=== PATIENT | female | born 1975 | race American Indian/Alaskan Native ===

== ENCOUNTER 2017-07-03 05:02 | Inpatient (IN) | payer OTHER ==
[2017-07-03] MEDS ORDERED: NACL 0.9% 500 ML 500 ML IV ONE ×2 (05:48→08:22)
[2017-07-03] MEDS ORDERED: NACL 0.9% 1000 ML 1,000 ML ONE (05:49)
[2017-07-03 05:53] LABS: Mean Corpuscular HGB Conc 25 % (30-34)
[2017-07-03 05:54] LABS: Alanine Aminotransferase 10 units/L (7-56); Albumin 4.5 g/dL (3.9-5); BUN/Creatinine Ratio 12; Blood Urea Nitrogen 7 mg/dL (7-17); Calcium 8.9 mg/dL (8.4-10.2); Hemolysis Index 0; Lipase 18 units/L (13-60)
[2017-07-03 06:26] LABS: Hematocrit 22.3 % (30.3-42.9); Hemoglobin 5.6 gm/dl (10.1-14.3); Mean Corpuscular Hemoglobin 15 pg (28-32); Mean Corpuscular Volume 59 fl (79-97); Red Cell Distribution Width 33.3 % (13.2-15.2)
[2017-07-03 06:44] LABS: Bilirubin,Urine NEG (Negative); Blood,Urine LG (Negative); Color,Urine Yellow (Yellow); Mucus,Urine FEW /HPF; Urobilinogen,Urine < 2.0 mg/dL (<2.0)
[2017-07-03 06:46] LABS: RBC,Urine > 182.0 /HPF (0.0-6.0)
[2017-07-03 06:50] LABS: INR 0.89 (0.87-1.13)
[2017-07-03] MEDS ORDERED: MORPHINE IV ONE (07:16)
[2017-07-03] MEDS ORDERED: ZOFRAN IV ONE (07:16)
--- NOTE | 2017-07-03 07:35 | Emergency Department Report ---
ED General Adult HPI - General Chief complaint: Nausea/Vomiting/Diarrhea Stated complaint: N/V/D Time Seen by Provider: 07/03/17 07:00 Source: patient Mode of arrival: Ambulatory Limitations: Other - History of Present Illness Initial comments: Patient presents emergency department for nausea, vomiting, diarrhea 1 day. Patient also complains of heavy vaginal bleeding for the last day or so. Patient also complains of severe abdominal pain as well. Upon further questioning the patient complains of shortness of breath with exertion as well as dizziness with standing. -: Sudden Radiation: non-radiation Severity scale (0 -10): 0 Improves with: none Worsens with: none Treatments Prior to Arrival: none - Related Data Allergies Allergy/AdvReac Type Severity Reaction Status Date / Time No Known Allergies Allergy Verified 07/03/17 05:14 ED Review of Systems ROS: Stated complaint: N/V/D Other details as noted in HPI Comment: All other systems reviewed and negative Constitutional: chills. denies: fever Eyes: denies: eye pain, eye discharge, vision change ENT: denies: ear pain, throat pain Respiratory: denies: cough, shortness of breath, wheezing Cardiovascular: denies: chest pain, palpitations Endocrine: no symptoms reported Gastrointestinal: abdominal pain. denies: nausea, diarrhea Genitourinary: other (vaginal bleeding). denies: urgency, dysuria, discharge Musculoskeletal: denies: back pain, joint swelling, arthralgia Skin: denies: rash, lesions Neurological: denies: headache, weakness, paresthesias Psychiatric: denies: anxiety, depression Hematological/Lymphatic: denies: easy bleeding, easy bruising ED Past Medical Hx - Past Medical History Previous Medical History?: Yes Hx Hypertension: Yes - Surgical History Past Surgical History?: Yes Additional Surgical History: underarm - Social History Smoking Status: Current Every Day Smoker Substance Use Type: None ED Physical Exam - General Limitations: Other General appearance: alert, in no apparent distress - Head Head exam: Present: atraumatic, normocephalic - Eye Eye exam: Present: normal appearance, PERRL, EOMI, other (Pale Palpebral conjunctiva) - ENT ENT exam: Present: other (dry mucous membranes) - Neck Neck exam: Present: normal inspection - Respiratory Respiratory exam: Present: normal lung sounds bilaterally. Absent: respiratory distress - Cardiovascular Cardiovascular Exam: Present: regular rate, normal rhythm. Absent: systolic murmur, diastolic murmur, rubs, gallop - GI/Abdominal GI/Abdominal exam: Present: soft, tenderness (diffusely tender to palpation), normal bowel sounds. Absent: distended - Rectal Rectal exam: Present: deferred - Extremities Exam Extremities exam: Present: normal inspection - Back Exam Back exam: Present: normal inspection - Neurological Exam Neurological exam: Present: alert, oriented X3 - Psychiatric Psychiatric exam: Present: normal affect, normal mood - Skin Skin exam: Present: warm, dry, intact, normal color. Absent: rash ED Course Vital Signs 07/03/17 07/03/17 07/03/17 05:06 06:00 07:00 Temperature 91.6 F L Pulse Rate 57 L 45 L 50 L Respiratory 20 20 20 Rate Blood Pressure 218/103 Blood Pressure 215/84 242/57 [Right] O2 Sat by Pulse 100 99 99 Oximetry 07/03/17 07/03/17 07/03/17 07:35 07:40 08:15 Temperature 95.5 F L Pulse Rate 58 L 65 Respiratory 18 18 19 Rate Blood Pressure Blood Pressure 217/73 208/75 [Right] O2 Sat by Pulse 100 100 Oximetry ED Medical Decision Making - Lab Data Result diagrams: 07/03/17 05:28 07/03/17 05:28 - Medical Decision Making The patient's core temperature was 91.6 thus a bear hugger was applied Packed RBCs were ordered Discussed results with the patient Critical Care Time: Yes Critical care time in (mins) excluding proc time.: 45 Critical care attestation.: If time is entered above; I have spent that time in minutes in the direct care of this critically ill patient, excluding procedure time. ED Disposition Clinical Impression: Hypothermia, Anemia requiring transfusions, Dysfunctional uterine bleeding, Fibroids Disposition: OP ADMIT IP TO THIS HOSP Is pt being admited?: Yes Does the pt Need Aspirin: No Condition: Fair Referrals: PRIMARY CARE, [Primary Care Provider] - 3-5 Days Time of Disposition: 08:40
--- NOTE | 2017-07-03 08:03 | XRay Report ---
FINAL REPORT EXAM: XR CHEST 1V AP HISTORY: Possible sepsis. TECHNIQUE: A single frontal portable radiograph of the chest was obtained. No prior studies are available for comparison. FINDINGS: The heart is borderline enlarged. The lungs appear clear bilaterally, without focal infiltrate or effusion. There is no pneumothorax. No significant osseous abnormalities are identified. IMPRESSION: Borderline cardiomegaly. No active disease seen in the chest.
--- NOTE | 2017-07-03 08:19 | Cat Scan Report ---
CT ABDOMEN PELVIS WITHOUT CONTRAST: HISTORY: abdominal pain. COMPARISON: none. TECHNIQUE: Helical CT in 1.25mm intervals without IV contrast. Sagittal and coronal reconstructions. FINDINGS: Lung bases: The visualized lung bases are normal. Heart size is normal although a small anterior pericardial effusion measures up to 1.5 cm in thickness. No obvious pericardial abnormality. Liver: A 2.8 cm hypodense lesion is identified in the posterior segment of the right hepatic lobe on image 30. This lesion is incompletely characterized on noncontrast CT, having said that, I suspect this represents a cavernous hemangioma. Triple phase liver CT with contrast or MRI liver with contrast for confirmation if needed. The remainder of the liver is within normal limits. Biliary system: Normal. Pancreas: Normal. Spleen: Normal. Kidneys/ureters/bladder: Normal. Adrenal glands: Normal. Aorta: Normal. Intestines: Unremarkable given no significant oral contrast is present in the GI system. Appendix: Not confidently identified, correlate with surgical history. Pelvic viscera: The uterus is enlarged and lobular and contains numerous noncalcified fibroids measuring up to 5 cm in diameter. The endometrium is poorly imaged but does not appear thickened on noncontrast CT. There is a surgical suture line along the right side of the uterus, correlate with surgical history. A 2.3 cm left ovarian cyst is identified. Ascites: None. Adenopathy: None. Musculoskeletal: No evidence for fracture or suspicious bony lesion. Early degenerative changes in the lower lumbar spine with L5-S1 being the most affected level. IMPRESSION: Uterine fibroid disease. 2.3 cm left ovarian cyst. Small anterior pericardial effusion of uncertain significance. 2.8 cm hypodense right hepatic lobe lesion, probable cavernous hemangioma. Surgical changes as described. Early degenerative changes in the lower lumbar spine
[2017-07-03] MEDS ORDERED: LEVAQUIN 750MG/150ML 750 MG/150 ML BAG IV ONE (08:23)
[2017-07-03 08:37] LABS: Basophils % (Manual) 0 % (0.0-1.8); RBC Morphology Normal; Total Cells Counted 100
[2017-07-03] MEDS ORDERED: DILAUDID IV ONE (08:37)
[2017-07-03 08:40] LABS: Platelet Count 125 K/mm3 (140-440)
[2017-07-03] MEDS ORDERED: VANCOMYCIN VIAL IV ONE (08:40)
--- NOTE | 2017-07-03 09:13 | History and Physical Report ---
History of Present Illness Date of examination: 07/03/17 Date of admission: 07/03/17 Chief complaint: NAUSEA WITH VOMITING AND ABDOMINAL PAIN History of present illness: Patient is a 42-year-old female with no significant past medical history significant for hypertension which she takes lisinopril 10 mg daily. She presents to the hospital complaining of nausea, vomiting vaginal bleeding is likely secondary. Which is normally very heavy. She reports the symptoms started about a day prior to admission was accompanied by diffuse abdominal pain to return and intensity of doing improving. On presentation to the hospital she was noted to have a core temperature of 91.6 with systolic blood pressure off well over 200. She denied any chest pain, but appeared generally uncomfortable. She denied any dysuria or increased frequency. She was unable to quantify the diarrhea. She reports alcohol use but this is limited to the weekend she states that this weekend she drank 2 bottles of wine. chimes in that once in a while she drinks them mixed with beer. ROS Constitutional: No fever, fatigue or weight loss. Skin: No rash. Eyes: No recent vision problems or eye pain. ENT: No congestion, ear pain, or sore throat. Endocrine: No thyroid problems. Cardiovascular: No chest pain. Respiratory: No cough, shortness of breath, congestion, or wheezing. Gastrointestinal: Reports abdominal pain, nausea, vomiting, and diarrhea. Genitourinary: No dysuria. Musculoskeletal: No joint swelling. Neurologic: No seizures. Hematologic: No unusual bruising or bleeding. Psychiatric: No psychiatric problems, hallucinations or depression. All other systems reviewed and otherwise negative. Medications and Allergies Allergies Allergy/AdvReac Type Severity Reaction Status Date / Time No Known Allergies Allergy Verified 07/03/17 05:14 Home Medications Medication Instructions Recorded Confirmed Last Taken Type Lisinopril [Zestril TAB] 10 mg PO QDAY 07/03/17 07/03/17 Unknown History Active Meds: Active Medications Hydralazine HCl (Apresoline) 10 mg IV Q4HR PRN PRN Reason: Hypertension Levofloxacin/Dextrose (Levaquin 750mg/150ml) 750 mg in 150 mls @ 100 mls/hr IV ONCE ONE Stop: 07/03/17 09:52 Last Admin: 07/03/17 08:48 Dose: 100 mls/hr Piperacillin Sod/Tazobactam Sod (Zosyn/Ns 4.5gm/100ml) 4.5 gm in 100 mls @ 200 mls/hr IV Q8HR RADHA; Protocol Nicardipine HCl 50 mg/ Sodium (Chloride) 250 mls @ 25 mls/hr IV TITR RADHA; Protocol Lisinopril (Zestril) 20 mg PO ONCE ONE Stop: 07/03/17 08:58 Sodium Chloride (Nacl 0.9% 1000 Ml) 2,180 ml 30 ml/kg (2180 ml) IV ONCE ONE Stop: 07/03/17 08:41 Vancomycin HCl (Vancomycin Pharmacy To Dose) 1 each IV PKCONSULT RADHA Vancomycin HCl (Vancomycin Vial) 1,500 mg 20 mg/kg (1500 mg) IV ONCE ONE; Protocol Stop: 07/03/17 08:41 Exam - Physical Exam Narrative exam: VITAL SIGNS: Reviewed. GENERAL: The patient appeared well nourished and normally developed in mild to moderate distress. Vital signs as documented. HEAD: No signs of head trauma. EYES: Pupils are equal. Extraocular motions intact. EARS: Hearing grossly intact. MOUTH: Oropharynx is normal. NECK: No adenopathy, no JVD. CHEST: Chest with clear breath sounds bilaterally. No wheezes, rales, or rhonchi. CARDIAC: Regular rate and rhythm. S1 and S2, without murmurs, gallops, or rubs. VASCULAR: No Edema. Peripheral pulses normal and equal in all extremities. ABDOMEN: Soft, tender diffusely no sign of distention. No rebound or guarding, and no masses palpated. Bowel Sounds normal. MUSCULOSKELETAL: Good range of motion of all major joints. Extremities without clubbing, cyanosis or edema. NEUROLOGIC EXAM: Alert and oriented x 3. No focal sensory or strength deficits. Speech normal. Follows commands. PSYCHIATRIC: Mood normal. SKIN: No rash or lesions. - Constitutional Vitals: Temp Pulse Resp BP Pulse Ox 95.5 F L 65 19 208/75 100 07/03/17 07:40 07/03/17 08:15 07/03/17 08:15 07/03/17 08:15 07/03/17 07:40 Results - Labs CBC & Chem 7: 07/03/17 16:50 07/03/17 05:28 Labs: Laboratory Last Values WBC 12.9 K/mm3 (4.5-11.0) H 07/03/17 05:28 RBC 3.80 M/mm3 (3.65-5.03) 07/03/17 05:28 Hgb 5.6 gm/dl (10.1-14.3) L* 07/03/17 05:28 Hct 22.3 % (30.3-42.9) L 07/03/17 05:28 MCV 59 fl (79-97) L 07/03/17 05:28 MCH 15 pg (28-32) L 07/03/17 05:28 MCHC 25 % (30-34) L 07/03/17 05:28 RDW 33.3 % (13.2-15.2) H 07/03/17 05:28 Plt Count 125 K/mm3 (140-440) L 07/03/17 05:28 Lymph % (Auto) Bread Molder 07/03/17 05:28 [place] % (Auto) Bread Molder 07/03/17 05:28 Eos % (Auto) Bread Molder 07/03/17 05:28 Baso % (Auto) Bread Molder 07/03/17 05:28 Lymph # Bread Molder 07/03/17 05:28 [place] # Bread Molder 07/03/17 05:28 Eos # Bread Molder 07/03/17 05:28 Baso # Bread Molder 07/03/17 05:28 Add Manual Diff Complete 07/03/17 05:28 Total Counted 100 07/03/17 05:28 Seg Neutrophils % Bread Molder 07/03/17 05:28 Seg Neuts % (Manual) 75.0 % (40.0-70.0) H 07/03/17 05:28 Band Neutrophils % 0 % 07/03/17 05:28 Lymphocytes % (Manual) 19.0 % (13.4-35.0) 07/03/17 05:28 Reactive Lymphs % (Man) 0 % 07/03/17 05:28 Monocytes % (Manual) 5.0 % (0.0-7.3) 07/03/17 05:28 Eosinophils % (Manual) 1.0 % (0.0-4.3) 07/03/17 05:28 Basophils % (Manual) 0 % (0.0-1.8) 07/03/17 05:28 Metamyelocytes % 0 % 07/03/17 05:28 Myelocytes % 0 % 07/03/17 05:28 Promyelocytes % 0 % 07/03/17 05:28 Blast Cells % 0 % 07/03/17 05:28 Nucleated RBC % Not Reportable 07/03/17 05:28 Seg Neutrophils # Bread Molder 07/03/17 05:28 Seg Neutrophils # Man 9.7 K/mm3 (1.8-7.7) H 07/03/17 05:28 Band Neutrophils # 0.0 K/mm3 07/03/17 05:28 Lymphocytes # (Manual) 2.5 K/mm3 (1.2-5.4) 07/03/17 05:28 Abs React Lymphs (Man) 0.0 K/mm3 07/03/17 05:28 Monocytes # (Manual) 0.6 K/mm3 (0.0-0.8) 07/03/17 05:28 Eosinophils # (Manual) 0.1 K/mm3 (0.0-0.4) 07/03/17 05:28 Basophils # (Manual) 0.0 K/mm3 (0.0-0.1) 07/03/17 05:28 Metamyelocytes # 0.0 K/mm3 07/03/17 05:28 Myelocytes # 0.0 K/mm3 07/03/17 05:28 Promyelocytes # 0.0 K/mm3 07/03/17 05:28 Blast Cells # 0.0 K/mm3 07/03/17 05:28 WBC Morphology Not Reportable 07/03/17 05:28 Hypersegmented Neuts Not Reportable 07/03/17 05:28 Hyposegmented Neuts Not Reportable 07/03/17 05:28 Hypogranular Neuts Not Reportable 07/03/17 05:28 Smudge Cells Not Reportable 07/03/17 05:28 Toxic Granulation Not Reportable 07/03/17 05:28 Toxic Vacuolation Not Reportable 07/03/17 05:28 Dohle Bodies Not Reportable 07/03/17 05:28 Pelger-Huet Anomaly Not Reportable 07/03/17 05:28 Irma Rods Not Reportable 07/03/17 05:28 Platelet Estimate Not Reportable 07/03/17 05:28 Clumped Platelets Not Reportable 07/03/17 05:28 Plt Clumps, EDTA Not Reportable 07/03/17 05:28 Large Platelets Not Reportable 07/03/17 05:28 Giant Platelets Not Reportable 07/03/17 05:28 Platelet Satelliting Not Reportable 07/03/17 05:28 Plt Morphology Comment Not Reportable 07/03/17 05:28 RBC Morphology Normal 07/03/17 05:28 Dimorphic RBCs Not Reportable 07/03/17 05:28 Polychromasia Not Reportable 07/03/17 05:28 Hypochromasia Not Reportable 07/03/17 05:28 Poikilocytosis Not Reportable 07/03/17 05:28 Anisocytosis Not Reportable 07/03/17 05:28 Microcytosis Not Reportable 07/03/17 05:28 Macrocytosis Not Reportable 07/03/17 05:28 Spherocytes Not Reportable 07/03/17 05:28 Pappenheimer Bodies Not Reportable 07/03/17 05:28 Sickle Cells Not Reportable 07/03/17 05:28 Target Cells Not Reportable 07/03/17 05:28 Tear Drop Cells Not Reportable 07/03/17 05:28 Ovalocytes Not Reportable 07/03/17 05:28 Helmet Cells Not Reportable 07/03/17 05:28 [place] Bodies Not Reportable 07/03/17 05:28 [place] Rings Not Reportable 07/03/17 05:28 [place] Cells Not Reportable 07/03/17 05:28 Bite Cells Not Reportable 07/03/17 05:28 Crenated Cell Not Reportable 07/03/17 05:28 Elliptocytes Not Reportable 07/03/17 05:28 Acanthocytes (Spur) Not Reportable 07/03/17 05:28 Rouleaux Not Reportable 07/03/17 05:28 Hemoglobin C Crystals Not Reportable 07/03/17 05:28 Schistocytes Not Reportable 07/03/17 05:28 Malaria parasites Not Reportable 07/03/17 05:28 Roberto Bodies Not Reportable 07/03/17 05:28 Hem Pathologist Commnt No 07/03/17 05:28 PT 12.5 Sec. (12.2-14.9) 07/03/17 06:19 INR 0.89 (0.87-1.13) 07/03/17 06:19 VBG pH 7.372 (7.320-7.420) 07/03/17 06:19 Sodium 141 mmol/L (137-145) 07/03/17 05:28 Potassium 3.0 mmol/L (3.6-5.0) L 07/03/17 05:28 Chloride 101.3 mmol/L (98-107) 07/03/17 05:28 Carbon Dioxide 22 mmol/L (22-30) 07/03/17 05:28 Anion Gap 21 mmol/L 07/03/17 05:28 BUN 7 mg/dL (7-17) 07/03/17 05:28 Creatinine 0.6 mg/dL (0.7-1.2) L 07/03/17 05:28 Estimated GFR > 60 ml/min 07/03/17 05:28 BUN/Creatinine Ratio 12 % 07/03/17 05:28 Glucose 220 mg/dL (65-100) H 07/03/17 05:28 POC Glucose 188 (70-105) H 07/03/17 05:11 Lactic Acid 2.50 mmol/L (0.7-2.0) H* 07/03/17 06:19 Calcium 8.9 mg/dL (8.4-10.2) 07/03/17 05:28 Total Bilirubin 0.40 mg/dL (0.1-1.2) 07/03/17 05:28 AST 17 units/L (5-40) 07/03/17 05:28 ALT 10 units/L (7-56) 07/03/17 05:28 Alkaline Phosphatase 74 units/L (35-129) 07/03/17 05:28 Total Protein 7.5 g/dL (6.3-8.2) 07/03/17 05:28 Albumin 4.5 g/dL (3.9-5) 07/03/17 05:28 Albumin/Globulin Ratio 1.5 % 07/03/17 05:28 Lipase 18 units/L (13-60) 07/03/17 05:28 HCG, Qual Negative (Negative) 07/03/17 06:19 Urine Color Yellow (Yellow) 07/03/17 Unknown Urine Turbidity Hazy (Clear) 07/03/17 Unknown Urine pH 7.0 (5.0-7.0) 07/03/17 Unknown Ur Specific [place] 1.010 (1.003-1.030) 07/03/17 Unknown Urine Protein 100 mg/dl mg/dL (Negative) 07/03/17 Unknown Urine Glucose (UA) >=500 mg/dL (Negative) 07/03/17 Unknown Urine Ketones 20 mg/dL (Negative) 07/03/17 Unknown Urine Blood Lg (Negative) 07/03/17 Unknown Urine Nitrite Neg (Negative) 07/03/17 Unknown Urine Bilirubin Neg (Negative) 07/03/17 Unknown Urine Urobilinogen < 2.0 mg/dL (<2.0) 07/03/17 Unknown Ur Leukocyte Esterase Mod (Negative) 07/03/17 Unknown Urine WBC (Auto) 18.0 /HPF (0.0-6.0) H 07/03/17 Unknown Urine RBC (Auto) > 182.0 /HPF (0.0-6.0) 07/03/17 Unknown U Epithel Cells (Auto) 1.0 /HPF (0-13.0) 07/03/17 Unknown Urine Mucus Few /HPF 07/03/17 Unknown Blood Type O POSITIVE 07/03/17 06:35 Antibody Screen Negative 07/03/17 06:35 Crossmatch See Detail 07/03/17 06:35 - Imaging and Cardiology CT scan - abdomen: image reviewed (no acute pathology noted.) Assessment and Plan Assessment and plan: 42 year old with hx of HTN and weekend binge drinking presenting with Nausea, Vomiting with abdominal pain, noted to have a systolic BP of 240 with hgb of 5.6 and core temp of 91.6 Patient is a 42-year-old female with no significant past medical history significant for hypertension which she takes lisinopril 10 mg daily. She presents to the hospital complaining of nausea, vomiting vaginal bleeding is likely secondary. Which is normally very heavy. She reports the symptoms started about a day prior to admission was accompanied by diffuse abdominal pain to return and intensity of doing improving. On presentation to the hospital she was noted to have a core temperature of 91.6 with systolic blood pressure off well over 200. She denied any chest pain, but appeared generally uncomfortable. She denied any dysuria or increased frequency. She was unable to quantify the diarrhea. She reports alcohol use but this is limited to the weekend she states that this weekend she drank 2 bottles of wine. chimes in that once in a while she drinks them mixed with beer. 1. Severe Sepsis w/Hypothermia 2. Peritoneal irritation r/o aortic Dissection 3. Severe Anemia 4. Symptomatic Anemia 5. Hypertensive urgency 6. Menorraghia 7. Etoh use disorder Plan Admit to ICU INITIALLY PLANNED BUT WILL DOWNGRADE TO TELE ONCE ESTEFANY DRIP OFF Active Rewarming Start Sepsis protocol, ABX, FLUIDS, CULTURES. Excessive fluids may be prohibitive considering Elevated BP and Blood product need CIWA protocol Consult guyline operator-Discussed with physician Counselling for ETOH when more stable Cardene drip for BP contro Pain control Pelvic ultrasound CT CHEST AND ABD with contrast DVT/GI prophy Discussed in detail with patient and spouse with patients permission The high probability of a clinically significant, sudden or life threatening deterioration of the [GI, , HEMATOLOGY] system(s) required my full and direct attention, intervention and personal management. The aggregate critical care time was [45] minutes. This time is in addition to time spent performing reported procedures but includes the following: [X] Data Review and interpretation [X] Patient assessment and monitoring of vital signs [X] Documentation [X] Medication orders and management Advance Directives: Yes Plan of care discussed with patient/family: Yes - Patient Problems (1) Severe sepsis Current Visit: Yes Status: Acute (2) Alcohol abuse Current Visit: Yes Status: Acute (3) Hypertensive urgency, malignant Current Visit: Yes Status: Acute (4) Anemia requiring transfusions Current Visit: Yes Status: Acute (5) Dysfunctional uterine bleeding Current Visit: Yes Status: Acute (6) Fibroids Current Visit: Yes Status: Acute (7) Hypothermia Current Visit: Yes Status: Acute
[2017-07-03 09:57] LABS: Hematocrit 22.4 % (30.3-42.9); Hemoglobin 5.7 gm/dl (10.1-14.3)
[2017-07-03] MEDS: CARDENE 50 MG in NACL 0.9% 250ML 230 ML IV SCH ×2 (09:59→21:11)
[2017-07-03] MEDS ORDERED: VANCOMYCIN PHARMACY TO DOSE IV SCH (10:00)
[2017-07-03] MEDS ORDERED: NACL 0.9% 1000 ML IV ONE (10:00)
[2017-07-03] MEDS ORDERED: ATIVAN IV PRN ×2 (10:00)
[2017-07-03] MEDS ORDERED: VANCOMYCIN 1,500 MG in NACL 0.9% 500 ML 500 ML IV ONE (10:00)
[2017-07-03] MEDS ORDERED: ZESTRIL PO ONE (10:00)
[2017-07-03 10:05] LABS: Partial Thromboplastin Time 24.6 Sec. (24.2-36.6)
[2017-07-03 10:11] LABS: Iron 12 ug/dL (37-170)
[2017-07-03] MEDS ORDERED: NORMODYNE IV ONE ×4 (10:20→12:46)
[2017-07-03 10:48] LABS: Total Iron Binding Capacity 534 mcg/dL (250-450)
--- NOTE | 2017-07-03 10:57 | XRay Report ---
AP CHEST: HISTORY: Tachycardia AP view of the chest demonstrates a normal mediastinal and cardiac contour with clear lungs and normal bony and soft tissue structures. IMPRESSION: No acute process noted.
[2017-07-03] MEDS: DILAUDID IV PRN ×3 (13:03→21:44)
[2017-07-03] MEDS: ZOSYN/NS 4.5GM/100ML 4.5 GM/100 ML VIAL IV SCH ×2 (13:35→16:04)
[2017-07-03] MEDS: APRESOLINE IV PRN (14:32)
[2017-07-03] MEDS: NORVASC PO SCH (15:03)
[2017-07-03] MEDS: DIOVAN PO SCH (16:14)
--- NOTE | 2017-07-03 17:11 | Consultation ---
History of Present Illness Consult date: 07/03/17 Requesting physician: JENIFER MANDUJANO History of present illness: 42 y/o female with history of hypertension, admitted on due to 24 h history of acute onset of abdominal pain, nausea, vomiting and diarrhea to numerous to count, she is also c/o vaginal bleeding which is her normal period. She reports heavy periods. She has been eating ice. Symptoms started after she ate out with her partner. They had different meals. She was the only one becoming sick. Denies dysuria, cough, cold symptoms. She reports alcohol use but this is limited to the weekend she states that this weekend she drank 2 bottles of wine. In the ED, temp 91.6, HR 57, R 20, O2 sat 100%, BP 218/103. WBC 12.9. Hg 5.6.Plat 125. Creat 0.6. Lactate 2.5. UA mod LE, wbc 18. CT showed uterine fibroids, 2.3 c left ovarian cyst, 2.8 cm hypodense lesion in the right hepatic lobe c/w hemangiona?, small pericardial effusion. Pelvic US showed multiple fibroids. I have been consulted for critical care management and to facilitate her admission to the ICU. She has lactic acidosis, severe anemia, malignant hypertension Review of systems Constitutional: No fever, fatigue or weight loss. Skin: No rash. Eyes: No recent vision problems or eye pain. ENT: No congestion, ear pain, or sore throat. Endocrine: No thyroid problems. Cardiovascular: No chest pain. Respiratory: No cough, shortness of breath, congestion, or wheezing. Gastrointestinal: Reports abdominal pain, nausea, vomiting, and diarrhea. Genitourinary: No dysuria. Musculoskeletal: No joint swelling. Neurologic: No seizures. Hematologic: No unusual bruising or bleeding. Psychiatric: No psychiatric problems, hallucinations or depression. All other systems reviewed and otherwise negative. Medications and Allergies Allergies Allergy/AdvReac Type Severity Reaction Status Date / Time No Known Allergies Allergy Verified 07/03/17 05:14 Home Medications Medication Instructions Recorded Confirmed Last Taken Type Lisinopril [Zestril TAB] 10 mg PO QDAY 07/03/17 07/03/17 Unknown History Active Meds: Active Medications Amlodipine Besylate (Norvasc) 10 mg PO QDAY RADHA Last Admin: 07/03/17 15:03 Dose: 10 mg Hydralazine HCl (Apresoline) 10 mg IV Q4H PRN PRN Reason: Hypertension Last Admin: 07/03/17 14:32 Dose: 10 mg Hydromorphone HCl (Dilaudid) 1 mg IV Q4H PRN PRN Reason: Pain , Severe (7-10) Last Admin: 07/03/17 13:03 Dose: 1 mg Nicardipine HCl 50 mg/ Sodium (Chloride) 250 mls @ 25 mls/hr IV TITR RADHA; Protocol Last Titration: 07/03/17 12:30 Dose: 5 mg/hr, 25 mls/hr Vancomycin HCl 1,250 mg/ (Sodium Chloride) 262.5 mls @ 166.667 mls/hr IV Q12HR RADHA Piperacillin Sod/Tazobactam Sod (Zosyn/Ns 4.5gm/100ml) 4.5 gm in 100 mls @ 200 mls/hr IV Q8HR RADHA; Protocol Lorazepam (Ativan) 2 mg IV Q1HR PRN PRN Reason: [facility] 8-15 Lorazepam (Ativan) 4 mg IV Q1HR PRN PRN Reason: CIWA-Ar 16-25 Valsartan (Diovan) 160 mg PO BID RADHA Last Admin: 07/03/17 16:14 Dose: 160 mg Vancomycin HCl (Vancomycin Pharmacy To Dose) 1 each IV PKCONSULT RADHA Physical Examination Vital signs: Vital Signs Pulse Resp BP Pulse Ox 57 L 20 218/103 100 07/03/17 05:06 07/03/17 05:06 07/03/17 05:06 07/03/17 05:06 VITAL SIGNS: Reviewed. GENERAL: The patient appeared well nourished and normally developed in mild to moderate distress. Vital signs as documented. HEAD: No signs of head trauma. EYES: Pupils are equal. Extraocular motions intact. EARS: Hearing grossly intact. MOUTH: Oropharynx is normal. NECK: No adenopathy, no JVD. CHEST: Chest with clear breath sounds bilaterally. No wheezes, rales, or rhonchi. CARDIAC: Regular rate and rhythm. S1 and S2, without murmurs, gallops, or rubs. VASCULAR: No Edema. Peripheral pulses normal and equal in all extremities. ABDOMEN: Soft, tender diffusely no sign of distention. No rebound or guarding, and no masses palpated. Bowel Sounds hyperactive MUSCULOSKELETAL: Good range of motion of all major joints. Extremities without clubbing, cyanosis or edema. NEUROLOGIC EXAM: Alert and oriented x 3. No focal sensory or strength deficits. Speech normal. Follows commands. PSYCHIATRIC: Mood normal. SKIN: No rash or lesions. Results - Laboratory Findings CBC and BMP: 07/04/17 04:39 07/04/17 03:57 PT/INR, D-dimer PT 12.5 Sec. (12.2-14.9) 07/03/17 06:19 INR 0.89 (0.87-1.13) 07/03/17 06:19 Abnormal lab findings: Abnormal Labs 07/03/17 07/03/17 07/03/17 05:11 05:28 05:28 WBC 12.9 H Hgb 5.6 L* Hct 22.3 L MCV 59 L MCH 15 L MCHC 25 L RDW 33.3 H Plt Count 125 L Seg Neuts % (Manual) 75.0 H Seg Neutrophils # Man 9.7 H Potassium 3.0 L Creatinine 0.6 L Glucose 220 H POC Glucose 188 H Lactic Acid Iron TIBC Urine WBC (Auto) Crossmatch 07/03/17 07/03/17 07/03/17 06:19 06:35 08:42 WBC Hgb Hct MCV MCH MCHC RDW Plt Count Seg Neuts % (Manual) Seg Neutrophils # Man Potassium Creatinine Glucose POC Glucose Lactic Acid 2.50 H* 2.20 H* Iron TIBC Urine WBC (Auto) Crossmatch See Detail 07/03/17 07/03/17 07/03/17 09:31 09:31 11:50 WBC Hgb 5.7 L* Hct 22.4 L MCV MCH MCHC RDW Plt Count Seg Neuts % (Manual) Seg Neutrophils # Man Potassium Creatinine Glucose POC Glucose Lactic Acid 2.80 H* Iron 12 L TIBC 534 H Urine WBC (Auto) Crossmatch 07/03/17 Unknown WBC Hgb Hct MCV MCH MCHC RDW Plt Count Seg Neuts % (Manual) Seg Neutrophils # Man Potassium Creatinine Glucose POC Glucose Lactic Acid Iron TIBC Urine WBC (Auto) 18.0 H Crossmatch Assessment and Plan 1. Severe Sepsis without shock 2. Peritoneal irritation r/o aortic Dissection 3. Severe Anemia 4. Symptomatic Anemia 5. Hypertensive urgency 6. Menorraghia 7. Alcohol use disorder use disorder Plan At the time of evaluation, patient was warm, and her blood pressure had been adequately controlleed, not requiring nicardipine infusion. Will admit to a monitored unit and continue o follow closely Active Rewarming Continue with Sepsis protocol, ABX, FLUIDS, CULTURES. CIWA protocol Counselling for ETOH when more stable Pain control Pelvic ultrasound CT abdomen with contrast, monitor closely for contrast induced nephropathy DVT prophylaxis Supportive blood transfusion The high probability of a clinically significant, sudden or life threatening deterioration of the [GI, , HEMATOLOGY] system(s) required my full and direct attention, intervention and personal management. The aggregate critical care time was [35] minutes. This time is in addition to time spent performing reported procedures but includes the following: [X] Data Review and interpretation [X] Patient assessment and monitoring of vital signs [X] Documentation [X] Medication orders and management
[2017-07-03 17:26] LABS: Hematocrit 31.5 % (30.3-42.9); Hemoglobin 9.7 gm/dl (10.1-14.3)
[2017-07-03] MEDS ORDERED: K-DUR PO ONE (18:30)
--- NOTE | 2017-07-03 20:10 | Ultrasound Report ---
FINAL REPORT PROCEDURE: US PELVIC COMPLETE TECHNIQUE: Real-time transabdominal sonography in multiple planes of pelvis was performed with image documentation. This examination was performed without Doppler. Vascular abnormalities, including ovarian torsion, will not be detectable without Doppler evaluation. CPT 72567 HISTORY: fibroids, abdominal pain COMPARISON: No prior studies are available for comparison. FINDINGS: UTERUS Size: 13.0 x 7.5 x 9.8 cm. Endometrial thickness: Not diagnostically visualized . Orientation: anteverted. Cervix: Normal. Fibroids/masses: There are several uterine fibroids present. The largest is in a submucosal position in the body, and measures up to 4.9 centimeters. RIGHT Ovary: 1.9 x 2.0 x 1.7 cm. Appearance: Normal. LEFT Ovary: 3.5 x 2.4 x 2.9 cm. Appearance: 2.2 centimeter simple cyst is present. Pelvic fluid: None. Other: None. IMPRESSION: Multiple uterine fibroids are identified. The endometrium is not diagnostically visualized. 2.2 centimeter simple left ovarian cyst
--- NOTE | 2017-07-03 21:59 | Consultation ---
History of Present Illness - Reason for Consult Consult date: 07/03/17 severe sepsis Requesting physician: JENIFER MANDUJANO - History of Present Illness 42 y/o female with history of hypertension, admitted on due to 24 h history of acute onset of abdominal pain, nausea, vomiting and diarrhea to numerous to count, she is also c/o vaginal bleeding which is her normal period. She reports heavy periods. She has been eating ice. Symptoms started after she ate out with her partner. They had different meals. She was the only one becoming sick. Denies dysuria, cough, cold symptoms. She reports alcohol use but this is limited to the weekend she states that this weekend she drank 2 bottles of wine. In the ED, temp 91.6, HR 57, R 20, O2 sat 100%, BP 218/103. WBC 12.9. Hg 5.6.Plat 125. Creat 0.6. Lactate 2.5. UA mod LE, wbc 18. CT showed uterine fibroids, 2.3 c left ovarian cyst, 2.8 cm hypodense lesion in the right hepatic lobe c/w hemangiona?, small pericardial effusion. Pelvic US showed multile fibroids. Micro: Blood cx 07/03 ngtd Abx: Levaquin Zosyn Vanco Past History Past Medical History: No medical history Past Surgical History: No surgical history Social history: lives with family, alcohol abuse Medications and Allergies Allergies Allergy/AdvReac Type Severity Reaction Status Date / Time No Known Allergies Allergy Verified 07/03/17 05:14 Home Medications Medication Instructions Recorded Confirmed Last Taken Type Lisinopril [Zestril TAB] 10 mg PO QDAY 07/03/17 07/03/17 Unknown History Active Meds: Active Medications Amlodipine Besylate (Norvasc) 10 mg PO QDAY [facility] Last Admin: 07/03/17 15:03 Dose: 10 mg Hydralazine HCl (Apresoline) 10 mg IV Q4H PRN PRN Reason: Hypertension Last Admin: 07/03/17 14:32 Dose: 10 mg Hydromorphone HCl (Dilaudid) 1 mg IV Q4H PRN PRN Reason: Pain , Severe (7-10) Last Admin: 07/03/17 21:44 Dose: 1 mg Nicardipine HCl 50 mg/ Sodium (Chloride) 250 mls @ 25 mls/hr IV TITR RADHA; Protocol Last Admin: 07/03/17 21:11 Dose: 2.5 mg/hr, 12.5 mls/hr Vancomycin HCl 1,250 mg/ (Sodium Chloride) 262.5 mls @ 166.667 mls/hr IV Q12HR RADHA Piperacillin Sod/Tazobactam Sod (Zosyn/Ns 4.5gm/100ml) 4.5 gm in 100 mls @ 200 mls/hr IV Q8HR RADHA; Protocol Lorazepam (Ativan) 2 mg IV Q1HR PRN PRN Reason: CIWA-Ar 8-15 Lorazepam (Ativan) 4 mg IV Q1HR PRN PRN Reason: CIWA-Ar 16-25 Valsartan (Diovan) 160 mg PO BID RADHA Last Admin: 07/03/17 16:14 Dose: 160 mg Vancomycin HCl (Vancomycin Pharmacy To Dose) 1 each IV PKCONSULT RADHA Review of Systems All systems: negative (as per HPI rest neg) Physical Examination - Physical Exam Narrative exam: Alert anxious in mild resp distress JULIANN, clear OP Neck no LN Lungs CTA sanchez CV tachy Abd soft TTP diffusely Ext no edema - Constitutional Vitals: Vital Signs Temp Pulse Resp BP Pulse Ox 98.7 F 108 H 20 156/87 100 07/03/17 19:50 07/03/17 21:15 07/03/17 21:44 07/03/17 21:15 07/03/17 21:15 Temperature -Last 24 Hours Temperature 98.7 F Temperature 99.1 F Temperature 98.5 F Temperature 98.3 F Temperature 98.4 F Temperature 98.2 F Temperature 98 F Temperature 98.8 F Temperature 98.3 F Temperature 97.7 F Temperature 97.6 F Temperature 97.5 F Temperature 95.5 F Temperature 91.6 F Results - Labs CBC & Chem 7: 07/03/17 16:50 07/03/17 05:28 Labs: Abnormal lab results 07/03/17 07/03/17 07/03/17 Range/Units 05:11 05:28 05:28 WBC 12.9 H (4.5-11.0) K/mm3 Hgb 5.6 L* (10.1-14.3) gm/dl Hct 22.3 L (30.3-42.9) % MCV 59 L (79-97) fl MCH 15 L (28-32) pg MCHC 25 L (30-34) % RDW 33.3 H (13.2-15.2) % Plt Count 125 L (140-440) K/mm3 Seg Neuts % (Manual) 75.0 H (40.0-70.0) % Seg Neutrophils # Man 9.7 H (1.8-7.7) K/mm3 Potassium 3.0 L (3.6-5.0) mmol/L Creatinine 0.6 L (0.7-1.2) mg/dL Glucose 220 H (65-100) mg/dL POC Glucose 188 H (70-105) Lactic Acid (0.7-2.0) mmol/L Iron (37-170) ug/dL TIBC (250-450) mcg/dL Urine WBC (Auto) (0.0-6.0) /HPF Crossmatch 07/03/17 07/03/17 07/03/17 Range/Units 06:19 06:35 08:42 WBC (4.5-11.0) K/mm3 Hgb (10.1-14.3) gm/dl Hct (30.3-42.9) % MCV (79-97) fl MCH (28-32) pg MCHC (30-34) % RDW (13.2-15.2) % Plt Count (140-440) K/mm3 Seg Neuts % (Manual) (40.0-70.0) % Seg Neutrophils # Man (1.8-7.7) K/mm3 Potassium (3.6-5.0) mmol/L Creatinine (0.7-1.2) mg/dL Glucose (65-100) mg/dL POC Glucose (70-105) Lactic Acid 2.50 H* 2.20 H* (0.7-2.0) mmol/L Iron (37-170) ug/dL TIBC (250-450) mcg/dL Urine WBC (Auto) (0.0-6.0) /HPF Crossmatch See Detail 07/03/17 07/03/17 07/03/17 Range/Units 09:31 09:31 11:50 WBC (4.5-11.0) K/mm3 Hgb 5.7 L* (10.1-14.3) gm/dl Hct 22.4 L (30.3-42.9) % MCV (79-97) fl MCH (28-32) pg MCHC (30-34) % RDW (13.2-15.2) % Plt Count (140-440) K/mm3 Seg Neuts % (Manual) (40.0-70.0) % Seg Neutrophils # Man (1.8-7.7) K/mm3 Potassium (3.6-5.0) mmol/L Creatinine (0.7-1.2) mg/dL Glucose (65-100) mg/dL POC Glucose (70-105) Lactic Acid 2.80 H* (0.7-2.0) mmol/L Iron 12 L (37-170) ug/dL TIBC 534 H (250-450) mcg/dL Urine WBC (Auto) (0.0-6.0) /HPF Crossmatch 07/03/17 07/03/17 07/03/17 Range/Units 16:50 16:50 Unknown WBC (4.5-11.0) K/mm3 Hgb 9.7 L D (10.1-14.3) gm/dl Hct (30.3-42.9) % MCV (79-97) fl MCH (28-32) pg MCHC (30-34) % RDW (13.2-15.2) % Plt Count (140-440) K/mm3 Seg Neuts % (Manual) (40.0-70.0) % Seg Neutrophils # Man (1.8-7.7) K/mm3 Potassium (3.6-5.0) mmol/L Creatinine (0.7-1.2) mg/dL Glucose (65-100) mg/dL POC Glucose (70-105) Lactic Acid 2.30 H* (0.7-2.0) mmol/L Iron (37-170) ug/dL TIBC (250-450) mcg/dL Urine WBC (Auto) 18.0 H (0.0-6.0) /HPF Crossmatch Assessment and Plan Assessment: 1) Severe sepsis: present on admission, with hypothermia and leukocytosis; etiology: multifactorial - severe anemia +/- acute enterocolitis. 2) Severe anemia: prob from fibroids 3) Nausea, vomiting, abdominal pain and diarrhea: Likely acute enterocolitis, pt became sick after restaurant meal. CT - bowels were normal 4) Hypertensive urgency 5) Vaginal bleeding: from fibroids. CT showed uterine fibroids, 2.3 c left ovarian cyst. 6) Right liver lesion ? hemangioma 7) Small pericardial effusion Recommendations: -f/u blood cx -send stools for cultures, leukocytes and C diff -stop zosyn -continue levaquin -add flagyl -continue vancomycin for now- will stop soon -repeat CT abd with contrast - to evl bowel and aorta -check TTE Thanks for consultation Rachel Bryant MD
[2017-07-03] MEDS ORDERED: ZOSYN/NS 4.5GM/100ML 4.5 GM/100 ML VIAL IV SCH (22:00)
[2017-07-03] MEDS: VANCOMYCIN 1,250 MG in NACL 0.9% 250ML 250 ML IV SCH (23:02)
[2017-07-04] MEDS: FLAGYL 500 MG/100 ML 500 MG/100 ML BAG IV SCH ×4 (00:48→21:22)
[2017-07-04] MEDS: DILAUDID IV PRN ×5 (02:42→23:47)
--- NOTE | 2017-07-04 03:02 | Cat Scan Report ---
FINAL REPORT EXAM: CT ABDOMEN PELVIS W CON HISTORY: severe abd pain diarrhea eval ?colitis TECHNIQUE: Routine axial imaging was obtained of the abdomen and pelvis following the intravenous injection of 100 cc of Omnipaque 350. Delayed imaging was obtained through the kidneys ureters and bladder. Sagittal and coronal reconstructions were reviewed. Comparison is made to the previous noncontrast study of 07/03/2017. FINDINGS: Images through lung bases reveal very mild atelectatic changes versus scarring in the lower lobes. Pleural fluid is not seen. The liver is normal size and reveals a peripherally enhancing lesion in the right hepatic lobe measuring 2.7 cm in diameter compatible with a hemangioma. There are no additional padded lesions. The gallbladder, biliary tree, pancreas, spleen, and adrenal glands appear normal. The kidneys show no evidence of stones or hydronephrosis. The vasculatures enhance normally. The bowel loops reveal reveal fluid-filled loops of colon and small bowel without significant distention. There is no evidence of mucosal edematous change to suggest colitis or enteritis. The appendix is not enlarged. There is no evidence of free fluid or adenopathy. In the pelvis the uterus is markedly enlarged revealing least 1 enhancing myometrial lesion measuring 2.7 cm in diameter compatible with fibroid there is a 2.2 cm cyst behind the uterus left midline possibly representing a left ovarian cyst. The bladder appears normal. The skeletal structures appear well maintained. IMPRESSION: Multiple nondistended fluid-filled loops of colon and small bowel as described. The findings may represent a nonobstructive generalized ileus. No evidence of edematous mucosal changes in the colon or small bowel to suggest a colitis or enteritis. 2.7 cm hemangioma in the right hepatic lobe. Diffuse enlargement of the uterus with a least 1 fibroid. 2.2 cm cyst behind the uterus possibly representing a left ovarian cyst
[2017-07-04 04:06] LABS: Mean Corpuscular HGB Conc 30 % (30-34); Red Blood Count 4.71 M/mm3 (3.65-5.03)
[2017-07-04 04:09] LABS: Hematocrit 30.8 % (30.3-42.9); Hemoglobin 9.1 gm/dl (10.1-14.3); Mean Corpuscular Hemoglobin 19 pg (28-32); Mean Corpuscular Volume 65 fl (79-97); Platelet Count 120 K/mm3 (140-440); Red Cell Distribution Width 37.3 % (13.2-15.2)
[2017-07-04 04:23] LABS: BUN/Creatinine Ratio 12; Blood Urea Nitrogen 6 mg/dL (7-17); Calcium 7.9 mg/dL (8.4-10.2); Hemolysis Index 0
[2017-07-04 05:11] LABS: Mean Corpuscular HGB Conc 29 % (30-34); Red Blood Count 4.78 M/mm3 (3.65-5.03)
[2017-07-04 05:21] LABS: Hematocrit 31.7 % (30.3-42.9); Hemoglobin 9.3 gm/dl (10.1-14.3); Mean Corpuscular Hemoglobin 20 pg (28-32); Mean Corpuscular Volume 66 fl (79-97); Red Cell Distribution Width 37.3 % (13.2-15.2)
[2017-07-04 05:22] LABS: Platelet Count 145 K/mm3 (140-440)
[2017-07-04 06:22] LABS: Band Neutrophils # (Manual) 0.6 K/mm3; Basophils % (Manual) 0 % (0.0-1.8); Eosinophils % (Manual) 0 % (0.0-4.3); Hypochromasia 2+; Monocytes % (Manual) 2.5 % (0.0-7.3); Total Cells Counted 200
[2017-07-04 06:23] LABS: Anisocytosis 3+; Platelet Estimate Consistent w Auto
[2017-07-04] MEDS ORDERED: LOPRESSOR IV ONE (08:37)
--- NOTE | 2017-07-04 08:46 | Progress Note ---
Assessment and Plan Assessment: 1) Severe sepsis: now with fever and worsening leukocytosis 12-->42K; etiology: multifactorial - severe anemia +/- acute enterocolitis +/- ileus. 2) Severe anemia: prob from fibroids 3) Nausea, vomiting, abdominal pain and diarrhea: Likely acute enterocolitis, pt became sick 2 hours after restaurant meal ([place] Bri[place] she ate a sub sandwich and wings). -CT - bowels were normal -repeat CT w contrast showed multiple non distended small and large bowel loops ? ileus, no evidence of colitis or enteritis 4) Hypertensive urgency 5) Vaginal bleeding: from fibroids. CT showed uterine fibroids, 2.3 c left ovarian cyst. 6) Right liver lesion ? hemangioma 7) Small pericardial effusion Recommendations: -Surgical consult -f/u blood cx -f/u stools for cultures, leukocytes and C diff -continue levaquin and flagyl D2 -continue vancomycin for now- will stop soon -check TTE - pending Discussed with Dr Peterson Thanks for consultation Rachel Bryant MD Subjective Date of service: 07/04/17 Principal diagnosis: SIRS Interval history: Feels better, decreased diarrhea. Temp 100.1 Micro: Blood cx 07/03 ngtd Abx: Levaquin Flagyl Vanco Previous Abx: Zosyn Objective - Exam Narrative Exam: Alert in NAD JULIANN, clear OP Neck no LN Lungs CTA sanchez CV tachy Abd soft TTP diffusely Ext no edema Skin no rash Neuro alert and oriented x 3 grossly normal - Constitutional Vitals: Vital Signs Temp Pulse Resp BP Pulse Ox 100.1 F H 120 H 16 134/81 100 07/04/17 07:40 07/04/17 07:40 07/04/17 07:40 07/04/17 07:40 07/04/17 07:40 Temperature -Last 24 Hours Temperature 100.1 F Temperature 99.6 F Temperature 98.7 F Temperature 99.1 F Temperature 98.5 F Temperature 98.3 F Temperature 98.4 F Temperature 98.2 F Temperature 98 F Temperature 98.8 F Temperature 98.3 F Temperature 97.7 F Temperature 97.6 F Temperature 97.5 F - Labs CBC & Chem 7: 07/04/17 04:39 07/04/17 03:57 Labs: Abnormal lab results 07/03/17 07/03/17 07/03/17 Range/Units 06:35 08:42 09:31 WBC (4.5-11.0) K/mm3 Hgb (10.1-14.3) gm/dl Hct (30.3-42.9) % MCV (79-97) fl MCH (28-32) pg MCHC (30-34) % RDW (13.2-15.2) % Plt Count (140-440) K/mm3 Seg Neuts % (Manual) (40.0-70.0) % Lymphocytes % (Manual) (13.4-35.0) % Seg Neutrophils # Man (1.8-7.7) K/mm3 Lymphocytes # (Manual) (1.2-5.4) K/mm3 Monocytes # (Manual) (0.0-0.8) K/mm3 Sodium (137-145) mmol/L Potassium (3.6-5.0) mmol/L Chloride (98-107) mmol/L Carbon Dioxide (22-30) mmol/L BUN (7-17) mg/dL Creatinine (0.7-1.2) mg/dL Glucose (65-100) mg/dL Lactic Acid 2.20 H* (0.7-2.0) mmol/L Calcium (8.4-10.2) mg/dL Iron 12 L (37-170) ug/dL TIBC 534 H (250-450) mcg/dL Crossmatch See Detail 07/03/17 07/03/17 07/03/17 Range/Units 09:31 11:50 16:50 WBC (4.5-11.0) K/mm3 Hgb 5.7 L* 9.7 L D (10.1-14.3) gm/dl Hct 22.4 L (30.3-42.9) % MCV (79-97) fl MCH (28-32) pg MCHC (30-34) % RDW (13.2-15.2) % Plt Count (140-440) K/mm3 Seg Neuts % (Manual) (40.0-70.0) % Lymphocytes % (Manual) (13.4-35.0) % Seg Neutrophils # Man (1.8-7.7) K/mm3 Lymphocytes # (Manual) (1.2-5.4) K/mm3 Monocytes # (Manual) (0.0-0.8) K/mm3 Sodium (137-145) mmol/L Potassium (3.6-5.0) mmol/L Chloride (98-107) mmol/L Carbon Dioxide (22-30) mmol/L BUN (7-17) mg/dL Creatinine (0.7-1.2) mg/dL Glucose (65-100) mg/dL Lactic Acid 2.80 H* (0.7-2.0) mmol/L Calcium (8.4-10.2) mg/dL Iron (37-170) ug/dL TIBC (250-450) mcg/dL Crossmatch 07/03/17 07/04/17 07/04/17 Range/Units 16:50 03:57 03:57 WBC 42.4 H* (4.5-11.0) K/mm3 Hgb 9.1 L (10.1-14.3) gm/dl Hct (30.3-42.9) % MCV 65 L (79-97) fl MCH 19 L (28-32) pg MCHC (30-34) % RDW 37.3 H (13.2-15.2) % Plt Count 120 L (140-440) K/mm3 Seg Neuts % (Manual) (40.0-70.0) % Lymphocytes % (Manual) (13.4-35.0) % Seg Neutrophils # Man (1.8-7.7) K/mm3 Lymphocytes # (Manual) (1.2-5.4) K/mm3 Monocytes # (Manual) (0.0-0.8) K/mm3 Sodium 134 L (137-145) mmol/L Potassium 3.5 L (3.6-5.0) mmol/L Chloride 95.4 L (98-107) mmol/L Carbon Dioxide 21 L (22-30) mmol/L BUN 6 L (7-17) mg/dL Creatinine 0.5 L (0.7-1.2) mg/dL Glucose 147 H (65-100) mg/dL Lactic Acid 2.30 H* (0.7-2.0) mmol/L Calcium 7.9 L (8.4-10.2) mg/dL Iron (37-170) ug/dL TIBC (250-450) mcg/dL Crossmatch 07/04/17 Range/Units 04:39 WBC 42.8 H* (4.5-11.0) K/mm3 Hgb 9.3 L (10.1-14.3) gm/dl Hct (30.3-42.9) % MCV 66 L (79-97) fl MCH 20 L (28-32) pg MCHC 29 L (30-34) % RDW 37.3 H (13.2-15.2) % Plt Count (140-440) K/mm3 Seg Neuts % (Manual) 93.5 H (40.0-70.0) % Lymphocytes % (Manual) 2.5 L (13.4-35.0) % Seg Neutrophils # Man 40.0 H (1.8-7.7) K/mm3 Lymphocytes # (Manual) 1.1 L (1.2-5.4) K/mm3 Monocytes # (Manual) 1.1 H (0.0-0.8) K/mm3 Sodium (137-145) mmol/L Potassium (3.6-5.0) mmol/L Chloride (98-107) mmol/L Carbon Dioxide (22-30) mmol/L BUN (7-17) mg/dL Creatinine (0.7-1.2) mg/dL Glucose (65-100) mg/dL Lactic Acid (0.7-2.0) mmol/L Calcium (8.4-10.2) mg/dL Iron (37-170) ug/dL TIBC (250-450) mcg/dL Crossmatch
[2017-07-04] MEDS ORDERED: NACL 0.9% 1000 ML 1,000 ML ONE (09:37)
[2017-07-04] MEDS: LEVAQUIN 750MG/150ML 750 MG/150 ML BAG IV SCH (11:04)
[2017-07-04] MEDS: VANCOMYCIN 1,250 MG in NACL 0.9% 250ML 250 ML IV SCH ×2 (11:05→23:17)
[2017-07-04] MEDS: NORVASC PO SCH (11:06)
[2017-07-04] MEDS: DIOVAN PO SCH ×2 (11:11→22:50)
[2017-07-04] MEDS ORDERED: LOPRESSOR PO SCH (14:00)
[2017-07-04] MEDS: LOPRESSOR PO SCH ×2 (14:20→21:33)
--- NOTE | 2017-07-04 15:01 | Progress Note ---
Assessment and Plan Assessment and plan: 42 year old with hx of HTN and weekend binge drinking presenting with Nausea, Vomiting with abdominal pain, noted to have a systolic BP of 240 with hgb of 5.6 and core temp of 91.6 Patient is a 42-year-old female with no significant past medical history significant for hypertension which she takes lisinopril 10 mg daily. She presents to the hospital complaining of nausea, vomiting vaginal bleeding is likely secondary. Which is normally very heavy. She reports the symptoms started about a day prior to admission was accompanied by diffuse abdominal pain to return and intensity of doing improving. On presentation to the hospital she was noted to have a core temperature of 91.6 with systolic blood pressure off well over 200. She denied any chest pain, but appeared generally uncomfortable. She denied any dysuria or increased frequency. She was unable to quantify the diarrhea. She reports alcohol use but this is limited to the weekend she states that this weekend she drank 2 bottles of wine. chimes in that once in a while she drinks them mixed with beer. 1. Severe Sepsis w/Hypothermia 2. Peritoneal irritation r/o aortic Dissection 3. Severe Anemia 4. Ileus with dialated loops of bowel. No clear evidence of ischemia 5. Worsening luekocytosis 6. Symptomatic Anemia 7. Hypertensive urgency 8. Menorraghia secondary to Fibroids 9. Etoh use disorder 10. Right liver lesion ?Hemangioma Plan S/P Active rewarming ID concerned about acute enterocolitis considering order of event with onset following [employer]. Monitor Blood culture Vancomycin, Levaquin and flagyl Ask for surgical opinion Excessive fluids may be prohibitive considering Elevated BP and Blood product need [facility] protocol Counselling for ETOH when more stable Cardene drip for BP controL Pain control Pelvic ultrasound CT CHEST AND ABD with contrast DVT/GI prophy Discussed in detail with patient and spouse with patients permission - Patient Problems (1) Severe sepsis Current Visit: Yes Status: Acute (2) Alcohol abuse Current Visit: Yes Status: Acute (3) Hypertensive urgency, malignant Current Visit: Yes Status: Acute (4) Anemia requiring transfusions Current Visit: Yes Status: Acute (5) Dysfunctional uterine bleeding Current Visit: Yes Status: Acute (6) Fibroids Current Visit: Yes Status: Acute (7) Hypothermia Current Visit: Yes Status: Acute History Interval history: Patient is seen today for: Abdominal pain, sepsis Seen and examined at bedside; 24hour events reviewed; nursing staff ; continues to complain of abdominal pain and tolerating diet.; Denies any chest pain, nausea, vomiting, diarrhea No fever noted blood pressure controlled and now off the Cardene drip Hospitalist Physical - Physical exam Narrative exam: VITAL SIGNS: Reviewed. GENERAL: The patient appeared well nourished and normally developed in mild distress. Vital signs as documented. HEAD: No signs of head trauma. EYES: Pupils are equal. Extraocular motions intact. EARS: Hearing grossly intact. MOUTH: Oropharynx is normal. NECK: No adenopathy, no JVD. CHEST: Chest with clear breath sounds bilaterally. No wheezes, rales, or rhonchi. CARDIAC: Regular rate and rhythm. S1 and S2, without murmurs, gallops, or rubs. VASCULAR: No Edema. Peripheral pulses normal and equal in all extremities. ABDOMEN: Soft, tender diffusely, no sign of distention. No rebound or guarding, and no masses palpated. Bowel Sounds normal. MUSCULOSKELETAL: Good range of motion of all major joints. Extremities without clubbing, cyanosis or edema. NEUROLOGIC EXAM: Alert and oriented x 3. No focal sensory or strength deficits. Speech normal. Follows commands. PSYCHIATRIC: Mood normal. SKIN: No rash or lesions. - Constitutional Vitals: Temp Pulse Resp BP Pulse Ox 99.4 F 140 H 18 134/80 100 07/04/17 13:25 07/04/17 14:20 07/04/17 13:25 07/04/17 14:20 07/04/17 13:25 Results - Labs CBC & Chem 7: 07/04/17 04:39 07/04/17 03:57 Labs: Laboratory Last Values WBC 42.8 K/mm3 (4.5-11.0) H* 07/04/17 04:39 RBC 4.78 M/mm3 (3.65-5.03) 07/04/17 04:39 Hgb 9.3 gm/dl (10.1-14.3) L 07/04/17 04:39 Hct 31.7 % (30.3-42.9) 07/04/17 04:39 MCV 66 fl (79-97) L 07/04/17 04:39 MCH 20 pg (28-32) L 07/04/17 04:39 MCHC 29 % (30-34) L 07/04/17 04:39 RDW 37.3 % (13.2-15.2) H 07/04/17 04:39 Plt Count 145 K/mm3 (140-440) 07/04/17 04:39 Lymph % (Auto) [employer] 07/03/17 05:28 [place] % (Auto) Industrial Custodian 07/03/17 05:28 Eos % (Auto) Industrial Custodian 07/03/17 05:28 Baso % (Auto) Industrial Custodian 07/03/17 05:28 Lymph # Industrial Custodian 07/03/17 05:28 [place] # Industrial Custodian 07/03/17 05:28 Eos # Industrial Custodian 07/03/17 05:28 Baso # Industrial Custodian 07/03/17 05:28 Add Manual Diff Complete 07/04/17 04:39 Total Counted 200 07/04/17 04:39 Seg Neutrophils % [employer]ian 07/04/17 04:39 Seg Neuts % (Manual) 93.5 % (40.0-70.0) H 07/04/17 04:39 Band Neutrophils % 1.5 % 07/04/17 04:39 Lymphocytes % (Manual) 2.5 % (13.4-35.0) L 07/04/17 04:39 Reactive Lymphs % (Man) 0 % 07/04/17 04:39 Monocytes % (Manual) 2.5 % (0.0-7.3) 07/04/17 04:39 Eosinophils % (Manual) 0 % (0.0-4.3) 07/04/17 04:39 Basophils % (Manual) 0 % (0.0-1.8) 07/04/17 04:39 Metamyelocytes % 0 % 07/04/17 04:39 Myelocytes % 0 % 07/04/17 04:39 Promyelocytes % 0 % 07/04/17 04:39 Blast Cells % 0 % 07/04/17 04:39 Nucleated RBC % Not Reportable 07/04/17 04:39 Seg Neutrophils # Industrial Custodian 07/03/17 05:28 Seg Neutrophils # Man 40.0 K/mm3 (1.8-7.7) H 07/04/17 04:39 Band Neutrophils # 0.6 K/mm3 07/04/17 04:39 Lymphocytes # (Manual) 1.1 K/mm3 (1.2-5.4) L 07/04/17 04:39 Abs React Lymphs (Man) 0.0 K/mm3 07/04/17 04:39 Monocytes # (Manual) 1.1 K/mm3 (0.0-0.8) H 07/04/17 04:39 Eosinophils # (Manual) 0.0 K/mm3 (0.0-0.4) 07/04/17 04:39 Basophils # (Manual) 0.0 K/mm3 (0.0-0.1) 07/04/17 04:39 Metamyelocytes # 0.0 K/mm3 07/04/17 04:39 Myelocytes # 0.0 K/mm3 07/04/17 04:39 Promyelocytes # 0.0 K/mm3 07/04/17 04:39 Blast Cells # 0.0 K/mm3 07/04/17 04:39 WBC Morphology Not Reportable 07/04/17 04:39 Hypersegmented Neuts Not Reportable 07/04/17 04:39 Hyposegmented Neuts Not Reportable 07/04/17 04:39 Hypogranular Neuts Not Reportable 07/04/17 04:39 Smudge Cells Not Reportable 07/04/17 04:39 Toxic Granulation Not Reportable 07/04/17 04:39 Toxic Vacuolation Not Reportable 07/04/17 04:39 Dohle Bodies Not Reportable 07/04/17 04:39 Pelger-Huet Anomaly Not Reportable 07/04/17 04:39 Irma Rods Not Reportable 07/04/17 04:39 Platelet Estimate Consistent w auto 07/04/17 04:39 Clumped Platelets Not Reportable 07/04/17 04:39 Plt Clumps, EDTA Not Reportable 07/04/17 04:39 Large Platelets Not Reportable 07/04/17 04:39 Giant Platelets Not Reportable 07/04/17 04:39 Platelet Satelliting Not Reportable 07/04/17 04:39 Plt Morphology Comment Not Reportable 07/04/17 04:39 RBC Morphology Not Reportable 07/04/17 04:39 Dimorphic RBCs Not Reportable 07/04/17 04:39 Polychromasia 1+ 07/04/17 04:39 Hypochromasia 2+ 07/04/17 04:39 Poikilocytosis Not Reportable 07/04/17 04:39 Anisocytosis 3+ 07/04/17 04:39 Microcytosis 1+ 07/04/17 04:39 Macrocytosis Not Reportable 07/04/17 04:39 Spherocytes Not Reportable 07/04/17 04:39 Pappenheimer Bodies Not Reportable 07/04/17 04:39 Sickle Cells Not Reportable 07/04/17 04:39 Target Cells Not Reportable 07/04/17 04:39 Tear Drop Cells Not Reportable 07/04/17 04:39 Ovalocytes Not Reportable 07/04/17 04:39 Helmet Cells Not Reportable 07/04/17 04:39 [place] Bodies Not Reportable 07/04/17 04:39 [place] Rings Not Reportable 07/04/17 04:39 [place] Cells Not Reportable 07/04/17 04:39 Bite Cells Not Reportable 07/04/17 04:39 Crenated Cell Not Reportable 07/04/17 04:39 Elliptocytes Not Reportable 07/04/17 04:39 Acanthocytes (Spur) Not Reportable 07/04/17 04:39 Rouleaux Not Reportable 07/04/17 04:39 Hemoglobin C Crystals Not Reportable 07/04/17 04:39 Schistocytes Not Reportable 07/04/17 04:39 Malaria parasites Not Reportable 07/04/17 04:39 Roberto Bodies Not Reportable 07/04/17 04:39 Haptoglobin 204 mg/dL (43-212) 07/03/17 09:31 Hem Pathologist Commnt Sent to pathology 07/04/17 04:39 PT 12.5 Sec. (12.2-14.9) 07/03/17 06:19 INR 0.89 (0.87-1.13) 07/03/17 06:19 APTT 24.6 Sec. (24.2-36.6) 07/03/17 09:31 Fibrinogen 350 mg/dl (211-480) 07/03/17 09:31 VBG pH 7.372 (7.320-7.420) 07/03/17 06:19 Sodium 134 mmol/L (137-145) L 07/04/17 03:57 Potassium 3.5 mmol/L (3.6-5.0) L 07/04/17 03:57 Chloride 95.4 mmol/L (98-107) L 07/04/17 03:57 Carbon Dioxide 21 mmol/L (22-30) L 07/04/17 03:57 Anion Gap 21 mmol/L 07/04/17 03:57 BUN 6 mg/dL (7-17) L 07/04/17 03:57 Creatinine 0.5 mg/dL (0.7-1.2) L 07/04/17 03:57 Estimated GFR > 60 ml/min 07/04/17 03:57 BUN/Creatinine Ratio 12 % 07/04/17 03:57 Glucose 147 mg/dL (65-100) H 07/04/17 03:57 POC Glucose 169 (70-105) H 07/04/17 12:09 Lactic Acid 1.70 mmol/L (0.7-2.0) 07/03/17 22:17 Calcium 7.9 mg/dL (8.4-10.2) L 07/04/17 03:57 Iron 12 ug/dL (37-170) L 07/03/17 09:31 TIBC 534 mcg/dL (250-450) H 07/03/17 09:31 Total Bilirubin 0.40 mg/dL (0.1-1.2) 07/03/17 05:28 AST 17 units/L (5-40) 07/03/17 05:28 ALT 10 units/L (7-56) 07/03/17 05:28 Alkaline Phosphatase 74 units/L (35-129) 07/03/17 05:28 Total Protein 7.5 g/dL (6.3-8.2) 07/03/17 05:28 Albumin 4.5 g/dL (3.9-5) 07/03/17 05:28 Albumin/Globulin Ratio 1.5 % 07/03/17 05:28 Lipase 18 units/L (13-60) 07/03/17 05:28 HCG, Qual Negative (Negative) 07/03/17 06:19 Urine Color Yellow (Yellow) 07/03/17 Unknown Urine Turbidity Hazy (Clear) 07/03/17 Unknown Urine pH 7.0 (5.0-7.0) 07/03/17 Unknown Ur Specific Pe Ell 1.010 (1.003-1.030) 07/03/17 Unknown Urine Protein 100 mg/dl mg/dL (Negative) 07/03/17 Unknown Urine Glucose (UA) >=500 mg/dL (Negative) 07/03/17 Unknown Urine Ketones 20 mg/dL (Negative) 07/03/17 Unknown Urine Blood Lg (Negative) 07/03/17 Unknown Urine Nitrite Neg (Negative) 07/03/17 Unknown Urine Bilirubin Neg (Negative) 07/03/17 Unknown Urine Urobilinogen < 2.0 mg/dL (<2.0) 07/03/17 Unknown Ur Leukocyte Esterase Mod (Negative) 07/03/17 Unknown Urine WBC (Auto) 18.0 /HPF (0.0-6.0) H 07/03/17 Unknown Urine RBC (Auto) > 182.0 /HPF (0.0-6.0) 07/03/17 Unknown U Epithel Cells (Auto) 1.0 /HPF (0-13.0) 07/03/17 Unknown Urine Mucus Few /HPF 07/03/17 Unknown Blood Type O POSITIVE 07/03/17 06:35 Antibody Screen Negative 07/03/17 06:35 Crossmatch See Detail 07/03/17 06:35 - Imaging and Cardiology CT scan - abdomen: image reviewed (dilated loops of bowel)
[2017-07-04] MEDS ORDERED: MORPHINE IV SCH (15:26)
--- NOTE | 2017-07-04 15:33 | Consultation ---
History of Present Illness Consult date: 07/04/17 Requesting physician: JENIFER MANDUJANO Chief complaint: abd pain, n/v - History of present illness History of present illness: 42 yo F with hx of HTN presented to hospital one day ago with c/o severe diffuse abdominal pain of sudden onset. Pt states this started right after eating a meal from a restaurant. Her also ate at the restaurant but did not experience the same symptoms. It is a 10/10 in severity and cannot be localized. She has been having associated nausea, emesis (nonbilious/nonbloody) , and diarrhea since the onset of the abdominal pain. She admits to fevers. She states the diarrhea has stopped today. Her nausea is better and she was able to tolerate some solid food today. She also c/o heavy vaginal bleeding as she is currently menstruating. Her hb on admission was 5.6 and she has received 2 units PRBC. Per H&P, the patient's SBP was greater than 200 and temp was 91.6 on presentation. Also of note, she drank 2 bottles of wine over the weekend. The patient was on a cardene gtt for HTN emergency and was recently downgraded to tele off cardene gtt. Her temp has increased and Tm was 100.1 today. She denies cp, sob, lightheadedness, dizziness, BLAIR. Past History Past Medical History: No medical history, hypertension Past Surgical History: No surgical history Social history: lives with family, alcohol abuse Medications and Allergies Allergies Allergy/AdvReac Type Severity Reaction Status Date / Time No Known Allergies Allergy Verified 07/03/17 05:14 Home Medications Medication Instructions Recorded Confirmed Last Taken Type Lisinopril [Zestril TAB] 10 mg PO QDAY 07/03/17 07/03/17 Unknown History Active Meds: Active Medications Amlodipine Besylate (Norvasc) 10 mg PO QDAY [facility] Last Admin: 07/04/17 11:06 Dose: 10 mg Hydralazine HCl (Apresoline) 10 mg IV Q4H PRN PRN Reason: Hypertension Last Admin: 07/03/17 14:32 Dose: 10 mg Hydromorphone HCl (Dilaudid) 0.5 mg IV Q6H PRN PRN Reason: Pain , Severe (7-10) Vancomycin HCl 1,250 mg/ (Sodium Chloride) 262.5 mls @ 166.667 mls/hr IV Q12HR [facility] Last Admin: 07/04/17 11:05 Dose: 166.667 mls/hr Metronidazole (Flagyl 500 Mg/100 Ml) 500 mg in 100 mls @ 100 mls/hr IV Q8HR [facility] Last Admin: 07/04/17 14:21 Dose: 100 mls/hr Levofloxacin/Dextrose (Levaquin 750mg/150ml) 750 mg in 150 mls @ 100 mls/hr IV Q24HR [facility] Last Admin: 07/04/17 11:04 Dose: 100 mls/hr Sodium Chloride (Nacl 0.9% 1000 Ml) 1,000 mls @ 125 mls/hr IV DIRECT RADHA Lorazepam (Ativan) 2 mg IV Q1HR PRN PRN Reason: CIWA-Ar 8-15 Lorazepam (Ativan) 4 mg IV Q1HR PRN PRN Reason: CIWA-Ar 16-25 Metoprolol Tartrate (Lopressor) 25 mg PO BID [facility] Last Admin: 07/04/17 14:20 Dose: 25 mg Morphine Sulfate (Morphine) 2 mg IV ONCE RDAHA Valsartan (Diovan) 160 mg PO BID [facility] Last Admin: 07/04/17 11:11 Dose: 160 mg Vancomycin HCl (Vancomycin Pharmacy To Dose) 1 each IV PKCONSULT [facility] Review of Systems All systems: negative (10 point ROS performed and negative except for that listed in HPI) Exam Vital Signs Pulse Resp BP Pulse Ox 57 L 20 218/103 100 07/03/17 05:06 07/03/17 05:06 07/03/17 05:06 07/03/17 05:06 Narrative exam: Gen: AAOx3. mild painful distress ENT: no scleral icterus or conjunctival pallor CV: S1, S2+. Tachy Resp: CTAB, no w/r/r Abd: soft, ND, + diffuse TTP. +voluntary guarding, no rebound or rigidity Ext: no c/c/e Results - Labs 07/04/17 04:39 07/04/17 03:57 Abnormal lab results 07/03/17 07/03/17 07/03/17 Range/Units 06:35 16:50 16:50 WBC (4.5-11.0) K/mm3 Hgb 9.7 L D (10.1-14.3) gm/dl MCV (79-97) fl MCH (28-32) pg MCHC (30-34) % RDW (13.2-15.2) % Plt Count (140-440) K/mm3 Seg Neuts % (Manual) (40.0-70.0) % Lymphocytes % (Manual) (13.4-35.0) % Seg Neutrophils # Man (1.8-7.7) K/mm3 Lymphocytes # (Manual) (1.2-5.4) K/mm3 Monocytes # (Manual) (0.0-0.8) K/mm3 Sodium (137-145) mmol/L Potassium (3.6-5.0) mmol/L Chloride (98-107) mmol/L Carbon Dioxide (22-30) mmol/L BUN (7-17) mg/dL Creatinine (0.7-1.2) mg/dL Glucose (65-100) mg/dL POC Glucose (70-105) Lactic Acid 2.30 H* (0.7-2.0) mmol/L Calcium (8.4-10.2) mg/dL Crossmatch See Detail 07/04/17 07/04/17 07/04/17 Range/Units 03:57 03:57 04:39 WBC 42.4 H* 42.8 H* (4.5-11.0) K/mm3 Hgb 9.1 L 9.3 L (10.1-14.3) gm/dl MCV 65 L 66 L (79-97) fl MCH 19 L 20 L (28-32) pg MCHC 29 L (30-34) % RDW 37.3 H 37.3 H (13.2-15.2) % Plt Count 120 L (140-440) K/mm3 Seg Neuts % (Manual) 93.5 H (40.0-70.0) % Lymphocytes % (Manual) 2.5 L (13.4-35.0) % Seg Neutrophils # Man 40.0 H (1.8-7.7) K/mm3 Lymphocytes # (Manual) 1.1 L (1.2-5.4) K/mm3 Monocytes # (Manual) 1.1 H (0.0-0.8) K/mm3 Sodium 134 L (137-145) mmol/L Potassium 3.5 L (3.6-5.0) mmol/L Chloride 95.4 L (98-107) mmol/L Carbon Dioxide 21 L (22-30) mmol/L BUN 6 L (7-17) mg/dL Creatinine 0.5 L (0.7-1.2) mg/dL Glucose 147 H (65-100) mg/dL POC Glucose (70-105) Lactic Acid (0.7-2.0) mmol/L Calcium 7.9 L (8.4-10.2) mg/dL Crossmatch 07/04/17 Range/Units 12:09 WBC (4.5-11.0) K/mm3 Hgb (10.1-14.3) gm/dl MCV (79-97) fl MCH (28-32) pg MCHC (30-34) % RDW (13.2-15.2) % Plt Count (140-440) K/mm3 Seg Neuts % (Manual) (40.0-70.0) % Lymphocytes % (Manual) (13.4-35.0) % Seg Neutrophils # Man (1.8-7.7) K/mm3 Lymphocytes # (Manual) (1.2-5.4) K/mm3 Monocytes # (Manual) (0.0-0.8) K/mm3 Sodium (137-145) mmol/L Potassium (3.6-5.0) mmol/L Chloride (98-107) mmol/L Carbon Dioxide (22-30) mmol/L BUN (7-17) mg/dL Creatinine (0.7-1.2) mg/dL Glucose (65-100) mg/dL POC Glucose 169 H (70-105) Lactic Acid (0.7-2.0) mmol/L Calcium (8.4-10.2) mg/dL Crossmatch Diabetes panel 07/04/17 Range/Units 03:57 Sodium 134 L (137-145) mmol/L Potassium 3.5 L (3.6-5.0) mmol/L Chloride 95.4 L (98-107) mmol/L Carbon Dioxide 21 L (22-30) mmol/L BUN 6 L (7-17) mg/dL Creatinine 0.5 L (0.7-1.2) mg/dL Glucose 147 H (65-100) mg/dL Calcium 7.9 L (8.4-10.2) mg/dL Calcium panel 07/04/17 Range/Units 03:57 Calcium 7.9 L (8.4-10.2) mg/dL Pituitary panel 07/04/17 Range/Units 03:57 Sodium 134 L (137-145) mmol/L Potassium 3.5 L (3.6-5.0) mmol/L Chloride 95.4 L (98-107) mmol/L Carbon Dioxide 21 L (22-30) mmol/L BUN 6 L (7-17) mg/dL Creatinine 0.5 L (0.7-1.2) mg/dL Glucose 147 H (65-100) mg/dL Calcium 7.9 L (8.4-10.2) mg/dL Adrenal panel 07/04/17 Range/Units 03:57 Sodium 134 L (137-145) mmol/L Potassium 3.5 L (3.6-5.0) mmol/L Chloride 95.4 L (98-107) mmol/L Carbon Dioxide 21 L (22-30) mmol/L BUN 6 L (7-17) mg/dL Creatinine 0.5 L (0.7-1.2) mg/dL Glucose 147 H (65-100) mg/dL Calcium 7.9 L (8.4-10.2) mg/dL - Imaging CT scan - abdomen: report reviewed, image reviewed CT scan - pelvis: report reviewed, image reviewed US - pelvic: report reviewed, image reviewed Assessment and Plan 42 yo F with 1. abd pain, n/v/d 2. enterocolitis 3. leukocytosis 4. sepsis 5. anemia Ct images reviewed - fluid filled colon and small bowel. No signs of obstruction. Mesenteric vessels appear patent. No free fluid or free air. Plan: 1. NPO except ice chips 2. IVF 3. serial abdominal exams 4. IV abx - on vanco, flagyl, levaquin. ID on board 5. stool studies pending, r/o CDIFF 6. Large increase in WBC count - ?Cdiff vs other infectious cause, continue to monitor and trend daily 7. prn pain and nausea control 8. Hb stable post transfusion 9. no indication for emergent surgical intervention at this time. Will monitor patient's clinical course and abdominal exams. Thank you for this consultation, please call with questions or concerns.
--- NOTE | 2017-07-04 15:47 | Progress Note ---
Assessment and Plan 1. Severe Sepsis without shock/ intrabdominal source Worsening leukocytosis 2. Peritoneal irritation r/o aortic Dissection 3. Severe Anemia 4. Symptomatic Anemia 5. Hypertensive urgency 6. Menorraghia 7. Alcohol use disorder use disorder Plan -Keep NPO, give bowel rest -IVF at maintenance -Pain management -Follow cultures -Antibiotics per ID -Check for c.diff( there have been reports of community acquired C.diff) -Await final Surgery recommendations Subjective Date of service: 07/04/17 Principal diagnosis: SIRS Interval history: Follow up: Sepsis, severe anemia, malignant hypertension, abdominal pain Seen and examined at bedside; 24hour events reviewed with nursing staff ; Continues to complain of abdominal pain and tolerating diet.; Denies any chest pain, nausea, vomiting, diarrhea She had fever spike overnight and has worsening leukocytosis Blood pressure controlled and now off the nicardipine infusion On empiric antibiotics per ID-levofloxacin/metronidazole Objective - Exam Narrative Exam: VITAL SIGNS: Reviewed. GENERAL: The patient appeared well nourished and normally developed in mild distress. Vital signs as documented. HEAD: No signs of head trauma. EYES: Pupils are equal. Extraocular motions intact. EARS: Hearing grossly intact. MOUTH: Oropharynx is normal. NECK: No adenopathy, no JVD. CHEST: Chest with clear breath sounds bilaterally. No wheezes, rales, or rhonchi. CARDIAC: Regular rate and rhythm. S1 and S2, without murmurs, gallops, or rubs. VASCULAR: No Edema. Peripheral pulses normal and equal in all extremities. ABDOMEN: Soft, tender diffusely, no sign of distention. No rebound or guarding, and no masses palpated. Tenderness more prominent over the lower abdominal area MUSCULOSKELETAL: Good range of motion of all major joints. Extremities without clubbing, cyanosis or edema. NEUROLOGIC EXAM: Alert and oriented x 3. No focal sensory or strength deficits. Speech normal. Follows commands. PSYCHIATRIC: Mood normal. SKIN: No rash or lesions. Vital Signs - 12hr 07/04/17 07/04/17 07/04/17 04:00 04:15 04:30 Temperature Pulse Rate 110 H 112 H 110 H Respiratory 19 26 H 19 Rate Blood Pressure 166/71 159/78 144/73 Blood Pressure [Right] O2 Sat by Pulse 100 100 95 Oximetry 07/04/17 07/04/17 07/04/17 04:45 05:30 05:45 Temperature Pulse Rate 115 H 115 H 115 H Respiratory 18 21 21 Rate Blood Pressure 153/86 161/86 150/84 Blood Pressure [Right] O2 Sat by Pulse 94 100 100 Oximetry 07/04/17 07/04/17 07/04/17 06:00 06:15 06:30 Temperature Pulse Rate 117 H 130 H 119 H Respiratory 27 H 21 35 H Rate Blood Pressure 172/92 163/86 144/79 Blood Pressure [Right] O2 Sat by Pulse 100 100 99 Oximetry 07/04/17 07/04/17 07/04/17 06:45 06:55 07:40 Temperature 100.1 F H Pulse Rate 118 H 120 H Respiratory 22 20 16 Rate Blood Pressure 147/81 Blood Pressure 134/81 [Right] O2 Sat by Pulse 100 100 Oximetry 07/04/17 07/04/17 07/04/17 08:48 08:59 11:06 Temperature 100.1 F H Pulse Rate 124 H 105 H 117 H Respiratory 18 Rate Blood Pressure 151/92 170/93 Blood Pressure 140/86 [Right] O2 Sat by Pulse 98 Oximetry 07/04/17 07/04/17 07/04/17 11:11 13:25 14:20 Temperature 99.4 F Pulse Rate 117 H 125 H 140 H Respiratory 18 Rate Blood Pressure 170/93 134/80 Blood Pressure 134/82 [Right] O2 Sat by Pulse 100 Oximetry CBC and BMP: 07/04/17 04:39 07/04/17 03:57 ABG, PT/INR, D-dimer: PT/INR, D-dimer PT 12.5 Sec. (12.2-14.9) 07/03/17 06:19 INR 0.89 (0.87-1.13) 07/03/17 06:19 Abnormal lab findings: Abnormal Labs 07/03/17 07/03/17 07/03/17 05:11 05:28 05:28 WBC 12.9 H Hgb 5.6 L* Hct 22.3 L MCV 59 L MCH 15 L MCHC 25 L RDW 33.3 H Plt Count 125 L Seg Neuts % (Manual) 75.0 H Lymphocytes % (Manual) Seg Neutrophils # Man 9.7 H Lymphocytes # (Manual) Monocytes # (Manual) Sodium Potassium 3.0 L Chloride Carbon Dioxide BUN Creatinine 0.6 L Glucose 220 H POC Glucose 188 H Lactic Acid Calcium Iron TIBC Urine WBC (Auto) Crossmatch 07/03/17 07/03/17 07/03/17 06:19 06:35 08:42 WBC Hgb Hct MCV MCH MCHC RDW Plt Count Seg Neuts % (Manual) Lymphocytes % (Manual) Seg Neutrophils # Man Lymphocytes # (Manual) Monocytes # (Manual) Sodium Potassium Chloride Carbon Dioxide BUN Creatinine Glucose POC Glucose Lactic Acid 2.50 H* 2.20 H* Calcium Iron TIBC Urine WBC (Auto) Crossmatch See Detail 07/03/17 07/03/17 07/03/17 09:31 09:31 11:50 WBC Hgb 5.7 L* Hct 22.4 L MCV MCH MCHC RDW Plt Count Seg Neuts % (Manual) Lymphocytes % (Manual) Seg Neutrophils # Man Lymphocytes # (Manual) Monocytes # (Manual) Sodium Potassium Chloride Carbon Dioxide BUN Creatinine Glucose POC Glucose Lactic Acid 2.80 H* Calcium Iron 12 L TIBC 534 H Urine WBC (Auto) Crossmatch 07/03/17 07/03/17 07/03/17 16:50 16:50 Unknown WBC Hgb 9.7 L D Hct MCV MCH MCHC RDW Plt Count Seg Neuts % (Manual) Lymphocytes % (Manual) Seg Neutrophils # Man Lymphocytes # (Manual) Monocytes # (Manual) Sodium Potassium Chloride Carbon Dioxide BUN Creatinine Glucose POC Glucose Lactic Acid 2.30 H* Calcium Iron TIBC Urine WBC (Auto) 18.0 H Crossmatch 07/04/17 07/04/17 07/04/17 03:57 03:57 04:39 WBC 42.4 H* 42.8 H* Hgb 9.1 L 9.3 L Hct MCV 65 L 66 L MCH 19 L 20 L MCHC 29 L RDW 37.3 H 37.3 H Plt Count 120 L Seg Neuts % (Manual) 93.5 H Lymphocytes % (Manual) 2.5 L Seg Neutrophils # Man 40.0 H Lymphocytes # (Manual) 1.1 L Monocytes # (Manual) 1.1 H Sodium 134 L Potassium 3.5 L Chloride 95.4 L Carbon Dioxide 21 L BUN 6 L Creatinine 0.5 L Glucose 147 H POC Glucose Lactic Acid Calcium 7.9 L Iron TIBC Urine WBC (Auto) Crossmatch 07/04/17 12:09 WBC Hgb Hct MCV MCH MCHC RDW Plt Count Seg Neuts % (Manual) Lymphocytes % (Manual) Seg Neutrophils # Man Lymphocytes # (Manual) Monocytes # (Manual) Sodium Potassium Chloride Carbon Dioxide BUN Creatinine Glucose POC Glucose 169 H Lactic Acid Calcium Iron TIBC Urine WBC (Auto) Crossmatch
[2017-07-04] MEDS ORDERED: NACL 0.9% 1000 ML 1,000 ML IV SCH (16:00)
[2017-07-05] MEDS: DILAUDID IV PRN ×2 (05:51→11:53)
[2017-07-05] MEDS: FLAGYL 500 MG/100 ML 500 MG/100 ML BAG IV SCH ×2 (05:52→13:06)
[2017-07-05 08:44] LABS: Mean Corpuscular HGB Conc 28 % (30-34); Red Blood Count 4.43 M/mm3 (3.65-5.03)
[2017-07-05 08:51] LABS: Hematocrit 29.1 % (30.3-42.9); Hemoglobin 8.3 gm/dl (10.1-14.3); Mean Corpuscular Hemoglobin 19 pg (28-32); Mean Corpuscular Volume 66 fl (79-97); Red Cell Distribution Width 38.3 % (13.2-15.2)
[2017-07-05 08:52] LABS: Platelet Count 287 K/mm3 (140-440)
[2017-07-05 08:55] LABS: Calcium 7.9 mg/dL (8.4-10.2)
[2017-07-05] MEDS: VANCOMYCIN 1,250 MG in NACL 0.9% 250ML 250 ML IV SCH (10:12)
[2017-07-05] MEDS: LEVAQUIN 750MG/150ML 750 MG/150 ML BAG IV SCH (10:12)
[2017-07-05] MEDS: DIOVAN PO SCH (10:13)
[2017-07-05] MEDS: LOPRESSOR PO SCH (10:14)
[2017-07-05] MEDS: NORVASC PO SCH (10:15)
[2017-07-05] MEDS ORDERED: NACL 0.9% 1000 ML 1,000 ML IV ONE ×3 (10:20→22:05)
--- NOTE | 2017-07-05 10:24 | Progress Note ---
Assessment and Plan Assessment and plan: Patient is a 42-year-old female with no significant past medical history significant for hypertension which she takes lisinopril 10 mg daily. She presents to the hospital complaining of nausea, vomiting vaginal bleeding is likely secondary. Which is normally very heavy. She reports the symptoms started about a day prior to admission was accompanied by diffuse abdominal pain to return and intensity of doing improving. On presentation to the hospital she was noted to have a core temperature of 91.6 with systolic blood pressure off well over 200. She denied any chest pain, but appeared generally uncomfortable. She denied any dysuria or increased frequency. She was unable to quantify the diarrhea. She reports alcohol use but this is limited to the weekend she states that this weekend she drank 2 bottles of wine. chimes in that once in a while she drinks them mixed with beer. 1. Severe Sepsis with worsening Leukocytosis 2. Peritoneal irritation r/o aortic Dissection 3. Severe Anemia 4. Ileus with dialated loops of bowel. no mention of ischemia 5. Worsening luekocytosis 6. Symptomatic Anemia 7. Hypertensive urgency-resolved 8. Menorraghia secondary to Fibroids 9. Etoh use disorder 10. Right liver lesion ?Hemangioma 11. Hypothermia-Resolved Plan S/P Active rewarming ID concerned about acute enterocolitis considering order of event with onset following [employer]. Monitor Blood culture No further stool Serial Abdominal xray Repeat Renal function Obtain renal consult Hold valsartan Give Bolus of Normal saline Vancomycin, Levaquin and flagyl If worsening renal function on repeat will hold vancomycin. surery consulted. Plan for Ex lap today. Discussed with family concern for ischemic bowel Discussed with surgery and also with ID Excessive fluids may be prohibitive considering Elevated BP and Blood product need on admission was. [facility] protocol Counselling for ETOH when more stable Cardene drip for BP controL Pain control Pelvic ultrasound NOTED. CT CHEST AND ABD with contrast DVT/GI prophy Discussed in detail with patient and spouse with patients permission Remans critically ill. 45 mins spent - Patient Problems (1) Severe sepsis Current Visit: Yes Status: Acute (2) Alcohol abuse Current Visit: Yes Status: Acute (3) Hypertensive urgency, malignant Current Visit: Yes Status: Acute (4) Anemia requiring transfusions Current Visit: Yes Status: Acute (5) Dysfunctional uterine bleeding Current Visit: Yes Status: Acute (6) Fibroids Current Visit: Yes Status: Acute (7) Hypothermia Current Visit: Yes Status: Acute History Interval history: Patient is seen today for: Abdominal pain, sepsis Seen and examined at bedside; 24hour events reviewed; nursing staff ; continues to complain of abdominal pain, no BM today; Denies any chest pain, nausea, vomiting, diarrhea No fever noted blood pressure controlled and now off the Cardene drip. Still with tachycardia Hospitalist Physical - Physical exam Narrative exam: VITAL SIGNS: Reviewed. GENERAL: The patient appeared well nourished and normally developed in mild distress. Vital signs as documented. HEAD: No signs of head trauma. EYES: Pupils are equal. Extraocular motions intact. EARS: Hearing grossly intact. MOUTH: Oropharynx is normal. NECK: No adenopathy, no JVD. CHEST: Chest with clear breath sounds bilaterally. No wheezes, rales, or rhonchi. CARDIAC: Regular rate and rhythm. S1 and S2, without murmurs, gallops, or rubs. VASCULAR: No Edema. Peripheral pulses normal and equal in all extremities. ABDOMEN: Soft, tender diffusely, no sign of distention. No rebound or guarding, and no masses palpated. very hypoactive Bowel movement MUSCULOSKELETAL: Good range of motion of all major joints. Extremities without clubbing, cyanosis or edema. NEUROLOGIC EXAM: Alert and oriented x 3. No focal sensory or strength deficits. Speech normal. Follows commands. PSYCHIATRIC: Mood normal. SKIN: No rash or lesions. - Constitutional Vitals: Temp Pulse Resp BP Pulse Ox 97.9 F 122 H 18 118/65 99 07/05/17 08:04 07/05/17 10:15 07/05/17 08:04 07/05/17 10:15 07/05/17 08:04 Results - Labs CBC & Chem 7: 07/05/17 08:21 07/05/17 10:55 Labs: Laboratory Last Values WBC 56.3 K/mm3 (4.5-11.0) H* 07/05/17 08:21 RBC 4.43 M/mm3 (3.65-5.03) 07/05/17 08:21 Hgb 8.3 gm/dl (10.1-14.3) L 07/05/17 08:21 Hct 29.1 % (30.3-42.9) L 07/05/17 08:21 MCV 66 fl (79-97) L 07/05/17 08:21 MCH 19 pg (28-32) L 07/05/17 08:21 MCHC 28 % (30-34) L 07/05/17 08:21 RDW 38.3 % (13.2-15.2) H 07/05/17 08:21 Plt Count 287 K/mm3 (140-440) 07/05/17 08:21 Lymph % (Auto) Dishtank Operator 07/03/17 05:28 Mcclain % (Auto) Dishtank Operator 07/03/17 05:28 Eos % (Auto) Dishtank Operator 07/03/17 05:28 Baso % (Auto) Dishtank Operator 07/03/17 05:28 Lymph # Dishtank Operator 07/03/17 05:28 Mcclain # Dishtank Operator 07/03/17 05:28 Eos # Dishtank Operator 07/03/17 05:28 Baso # Dishtank Operator 07/03/17 05:28 Add Manual Diff Complete 07/04/17 04:39 Total Counted 200 07/04/17 04:39 Seg Neutrophils % Dishtank Operator 07/05/17 08:21 Seg Neuts % (Manual) 93.5 % (40.0-70.0) H 07/04/17 04:39 Band Neutrophils % 1.5 % 07/04/17 04:39 Lymphocytes % (Manual) 2.5 % (13.4-35.0) L 07/04/17 04:39 Reactive Lymphs % (Man) 0 % 07/04/17 04:39 Monocytes % (Manual) 2.5 % (0.0-7.3) 07/04/17 04:39 Eosinophils % (Manual) 0 % (0.0-4.3) 07/04/17 04:39 Basophils % (Manual) 0 % (0.0-1.8) 07/04/17 04:39 Metamyelocytes % 0 % 07/04/17 04:39 Myelocytes % 0 % 07/04/17 04:39 Promyelocytes % 0 % 07/04/17 04:39 Blast Cells % 0 % 07/04/17 04:39 Nucleated RBC % Not Reportable 07/04/17 04:39 Seg Neutrophils # Dishtank Operator 07/03/17 05:28 Seg Neutrophils # Man 40.0 K/mm3 (1.8-7.7) H 07/04/17 04:39 Band Neutrophils # 0.6 K/mm3 07/04/17 04:39 Lymphocytes # (Manual) 1.1 K/mm3 (1.2-5.4) L 07/04/17 04:39 Abs React Lymphs (Man) 0.0 K/mm3 07/04/17 04:39 Monocytes # (Manual) 1.1 K/mm3 (0.0-0.8) H 07/04/17 04:39 Eosinophils # (Manual) 0.0 K/mm3 (0.0-0.4) 07/04/17 04:39 Basophils # (Manual) 0.0 K/mm3 (0.0-0.1) 07/04/17 04:39 Metamyelocytes # 0.0 K/mm3 07/04/17 04:39 Myelocytes # 0.0 K/mm3 07/04/17 04:39 Promyelocytes # 0.0 K/mm3 07/04/17 04:39 Blast Cells # 0.0 K/mm3 07/04/17 04:39 Pathologist Review 07/04/17 04:39 WBC Morphology Not Reportable 07/04/17 04:39 Hypersegmented Neuts Not Reportable 07/04/17 04:39 Hyposegmented Neuts Not Reportable 07/04/17 04:39 Hypogranular Neuts Not Reportable 07/04/17 04:39 Smudge Cells Not Reportable 07/04/17 04:39 Toxic Granulation Not Reportable 07/04/17 04:39 Toxic Vacuolation Not Reportable 07/04/17 04:39 Dohle Bodies Not Reportable 07/04/17 04:39 Pelger-Huet Anomaly Not Reportable 07/04/17 04:39 Irma Rods Not Reportable 07/04/17 04:39 Platelet Estimate Consistent w auto 07/04/17 04:39 Clumped Platelets Not Reportable 07/04/17 04:39 Plt Clumps, EDTA Not Reportable 07/04/17 04:39 Large Platelets Not Reportable 07/04/17 04:39 Giant Platelets Not Reportable 07/04/17 04:39 Platelet Satelliting Not Reportable 07/04/17 04:39 Plt Morphology Comment Not Reportable 07/04/17 04:39 RBC Morphology Not Reportable 07/04/17 04:39 Dimorphic RBCs Not Reportable 07/04/17 04:39 Polychromasia 1+ 07/04/17 04:39 Hypochromasia 2+ 07/04/17 04:39 Poikilocytosis Not Reportable 07/04/17 04:39 Anisocytosis 3+ 07/04/17 04:39 Microcytosis 1+ 07/04/17 04:39 Macrocytosis Not Reportable 07/04/17 04:39 Spherocytes Not Reportable 07/04/17 04:39 Pappenheimer Bodies Not Reportable 07/04/17 04:39 Sickle Cells Not Reportable 07/04/17 04:39 Target Cells Not Reportable 07/04/17 04:39 Tear Drop Cells Not Reportable 07/04/17 04:39 Ovalocytes Not Reportable 07/04/17 04:39 Helmet Cells Not Reportable 07/04/17 04:39 Barber-Dargan Bodies Not Reportable 07/04/17 04:39 [place] Rings Not Reportable 07/04/17 04:39 Jamila Cells Not Reportable 07/04/17 04:39 Bite Cells Not Reportable 07/04/17 04:39 Crenated Cell Not Reportable 07/04/17 04:39 Elliptocytes Not Reportable 07/04/17 04:39 Acanthocytes (Spur) Not Reportable 07/04/17 04:39 Rouleaux Not Reportable 07/04/17 04:39 Hemoglobin C Crystals Not Reportable 07/04/17 04:39 Schistocytes Not Reportable 07/04/17 04:39 Malaria parasites Not Reportable 07/04/17 04:39 Roberto Bodies Not Reportable 07/04/17 04:39 Haptoglobin 204 mg/dL (43-212) 07/03/17 09:31 Hem Pathologist Commnt Sent to pathology 07/04/17 04:39 PT 12.5 Sec. (12.2-14.9) 07/03/17 06:19 INR 0.89 (0.87-1.13) 07/03/17 06:19 APTT 24.6 Sec. (24.2-36.6) 07/03/17 09:31 Fibrinogen 350 mg/dl (211-480) 07/03/17 09:31 VBG pH 7.372 (7.320-7.420) 07/03/17 06:19 Sodium 135 mmol/L (137-145) L 07/05/17 08:21 Potassium 4.3 mmol/L (3.6-5.0) D 07/05/17 08:21 Chloride 100.8 mmol/L (98-107) 07/05/17 08:21 Carbon Dioxide 18 mmol/L (22-30) L 07/05/17 08:21 Anion Gap 21 mmol/L 07/05/17 08:21 BUN 25 mg/dL (7-17) H 07/05/17 08:21 Creatinine 2.7 mg/dL (0.7-1.2) H D 07/05/17 08:21 Estimated GFR 23 ml/min 07/05/17 08:21 BUN/Creatinine Ratio 9 % 07/05/17 08:21 Glucose 115 mg/dL (65-100) H 07/05/17 08:21 POC Glucose 124 (70-105) H 07/04/17 17:11 Lactic Acid 1.70 mmol/L (0.7-2.0) 07/03/17 22:17 Calcium 7.9 mg/dL (8.4-10.2) L 07/05/17 08:21 Iron 12 ug/dL (37-170) L 07/03/17 09:31 TIBC 534 mcg/dL (250-450) H 07/03/17 09:31 Total Bilirubin 0.40 mg/dL (0.1-1.2) 07/03/17 05:28 AST 17 units/L (5-40) 07/03/17 05:28 ALT 10 units/L (7-56) 07/03/17 05:28 Alkaline Phosphatase 74 units/L (35-129) 07/03/17 05:28 Total Protein 7.5 g/dL (6.3-8.2) 07/03/17 05:28 Albumin 4.5 g/dL (3.9-5) 07/03/17 05:28 Albumin/Globulin Ratio 1.5 % 07/03/17 05:28 Lipase 18 units/L (13-60) 07/03/17 05:28 TSH 0.561 mlU/mL (0.270-4.200) 07/04/17 14:38 HCG, Qual Negative (Negative) 07/03/17 06:19 Urine Color Yellow (Yellow) 07/03/17 Unknown Urine Turbidity Hazy (Clear) 07/03/17 Unknown Urine pH 7.0 (5.0-7.0) 07/03/17 Unknown Ur Specific [place] 1.010 (1.003-1.030) 07/03/17 Unknown Urine Protein 100 mg/dl mg/dL (Negative) 07/03/17 Unknown Urine Glucose (UA) >=500 mg/dL (Negative) 07/03/17 Unknown Urine Ketones 20 mg/dL (Negative) 07/03/17 Unknown Urine Blood Lg (Negative) 07/03/17 Unknown Urine Nitrite Neg (Negative) 07/03/17 Unknown Urine Bilirubin Neg (Negative) 07/03/17 Unknown Urine Urobilinogen < 2.0 mg/dL (<2.0) 07/03/17 Unknown Ur Leukocyte Esterase Mod (Negative) 07/03/17 Unknown Urine WBC (Auto) 18.0 /HPF (0.0-6.0) H 07/03/17 Unknown Urine RBC (Auto) > 182.0 /HPF (0.0-6.0) 07/03/17 Unknown U Epithel Cells (Auto) 1.0 /HPF (0-13.0) 07/03/17 Unknown Urine Mucus Few /HPF 07/03/17 Unknown Blood Type O POSITIVE 07/03/17 06:35 Antibody Screen Negative 07/03/17 06:35 Crossmatch See Detail 07/03/17 06:35
[2017-07-05 10:38] LABS: Monocytes % (Manual) 2.5 % (0.0-7.3); Nucleated Red Blood Cells 0.5 % (0.0-0.9); Total Cells Counted 200
[2017-07-05 10:39] LABS: Anisocytosis 3+; Basophils % (Manual) 0 % (0.0-1.8); Eosinophils % (Manual) 0 % (0.0-4.3)
[2017-07-05 10:40] LABS: Hypersegmented Neutrophils Rare; Hypochromasia 2+
[2017-07-05 10:41] LABS: Large Platelets Few; Ovalocytes Few; Poikilocytosis 1+
[2017-07-05 10:42] LABS: Platelet Estimate Cons; Schistocytes Rare; Target Cells Rare; Tear Drop Cells Few
--- NOTE | 2017-07-05 13:25 | Progress Note ---
Assessment and Plan Patient complaining abdominal pain.Patient about to go for abdominal surgery.Patient afebrile now. O2 saturation 96% on room air. Blood pressure 147/ 70. - Patient Problems (1) Severe sepsis Current Visit: Yes Status: Acute Plan to address problem: Patient is on merepenum, vancomycin and fluconazole. Patient afebrile at this time. B/P140/70. (2) Abdominal pain Current Visit: Yes Status: Acute Plan to address problem: Multiple loops of distended colon and small bowl Patient going for abdominal surgery. (3) Alcohol abuse Current Visit: Yes Status: Acute Plan to address problem: Management as per primary care. (4) Anemia requiring transfusions Current Visit: Yes Status: Acute Plan to address problem: Management as per primary and TRANSPLANTER ORCHID. (5) Dysfunctional uterine bleeding Current Visit: Yes Status: Acute Plan to address problem: Management as per AEROSPACE MANAGER. Subjective Date of service: 07/05/17 Principal diagnosis: SIRS Interval history: Patient complaining abdominal pain.Patient about to go for abdominal surgery.Patient afebrile now. O2 saturation 96% on room air. Blood pressure 147/ 70. Objective Vital Signs - 12hr 07/05/17 07/05/17 07/05/17 02:09 05:03 05:51 Temperature 98.3 F Pulse Rate 120 H 121 H Respiratory 16 Rate Blood Pressure 139/84 O2 Sat by Pulse 96 100 Oximetry 07/05/17 07/05/17 07/05/17 08:04 10:13 10:14 Temperature 97.9 F Pulse Rate 121 H 122 H 122 H Respiratory 18 Rate Blood Pressure 118/65 118/65 118/65 O2 Sat by Pulse 99 Oximetry 07/05/17 10:15 Temperature Pulse Rate 122 H Respiratory Rate Blood Pressure 118/65 O2 Sat by Pulse Oximetry Constitutional: alert, appears uncomfortable, other (Abdominal pain.) Eyes: non-icteric ENT: oropharynx moist Neck: supple, no lymphadenopathy Ascultation: Bilateral: diminished breath sounds Cardiovascular: other (Tachycardia.) Gastrointestinal: tender, rebound tenderness Integumentary: normal Extremities: no cyanosis, no edema Neurologic: normal mental status, non-focal exam, pupils equal and round, CN II- XII normal Psychiatric: other (In pain.) CBC and BMP: 07/05/17 08:21 07/05/17 10:55 ABG, PT/INR, D-dimer: PT/INR, D-dimer PT 12.5 Sec. (12.2-14.9) 07/03/17 06:19 INR 0.89 (0.87-1.13) 07/03/17 06:19 Abnormal lab findings: Abnormal Labs 07/03/17 07/03/17 07/03/17 05:11 05:28 05:28 WBC 12.9 H Hgb 5.6 L* Hct 22.3 L MCV 59 L MCH 15 L MCHC 25 L RDW 33.3 H Plt Count 125 L Seg Neuts % (Manual) 75.0 H Lymphocytes % (Manual) Seg Neutrophils # Man 9.7 H Lymphocytes # (Manual) Monocytes # (Manual) Sodium Potassium 3.0 L Chloride Carbon Dioxide BUN Creatinine 0.6 L Glucose 220 H POC Glucose 188 H Lactic Acid Calcium Iron TIBC Urine WBC (Auto) Crossmatch 07/03/17 07/03/17 07/03/17 06:19 06:35 08:42 WBC Hgb Hct MCV MCH MCHC RDW Plt Count Seg Neuts % (Manual) Lymphocytes % (Manual) Seg Neutrophils # Man Lymphocytes # (Manual) Monocytes # (Manual) Sodium Potassium Chloride Carbon Dioxide BUN Creatinine Glucose POC Glucose Lactic Acid 2.50 H* 2.20 H* Calcium Iron TIBC Urine WBC (Auto) Crossmatch See Detail 07/03/17 07/03/17 07/03/17 09:31 09:31 11:50 WBC Hgb 5.7 L* Hct 22.4 L MCV MCH MCHC RDW Plt Count Seg Neuts % (Manual) Lymphocytes % (Manual) Seg Neutrophils # Man Lymphocytes # (Manual) Monocytes # (Manual) Sodium Potassium Chloride Carbon Dioxide BUN Creatinine Glucose POC Glucose Lactic Acid 2.80 H* Calcium Iron 12 L TIBC 534 H Urine WBC (Auto) Crossmatch 07/03/17 07/03/17 07/03/17 16:50 16:50 Unknown WBC Hgb 9.7 L D Hct MCV MCH MCHC RDW Plt Count Seg Neuts % (Manual) Lymphocytes % (Manual) Seg Neutrophils # Man Lymphocytes # (Manual) Monocytes # (Manual) Sodium Potassium Chloride Carbon Dioxide BUN Creatinine Glucose POC Glucose Lactic Acid 2.30 H* Calcium Iron TIBC Urine WBC (Auto) 18.0 H Crossmatch 07/04/17 07/04/17 07/04/17 03:57 03:57 04:39 WBC 42.4 H* 42.8 H* Hgb 9.1 L 9.3 L Hct MCV 65 L 66 L MCH 19 L 20 L MCHC 29 L RDW 37.3 H 37.3 H Plt Count 120 L Seg Neuts % (Manual) 93.5 H Lymphocytes % (Manual) 2.5 L Seg Neutrophils # Man 40.0 H Lymphocytes # (Manual) 1.1 L Monocytes # (Manual) 1.1 H Sodium 134 L Potassium 3.5 L Chloride 95.4 L Carbon Dioxide 21 L BUN 6 L Creatinine 0.5 L Glucose 147 H POC Glucose Lactic Acid Calcium 7.9 L Iron TIBC Urine WBC (Auto) Crossmatch 07/04/17 07/04/17 07/05/17 12:09 17:11 08:21 WBC 56.3 H* Hgb 8.3 L Hct 29.1 L MCV 66 L MCH 19 L MCHC 28 L RDW 38.3 H Plt Count Seg Neuts % (Manual) 96.5 H Lymphocytes % (Manual) 1.0 L Seg Neutrophils # Man 54.3 H Lymphocytes # (Manual) 0.6 L Monocytes # (Manual) 1.4 H Sodium Potassium Chloride Carbon Dioxide BUN Creatinine Glucose POC Glucose 169 H 124 H Lactic Acid Calcium Iron TIBC Urine WBC (Auto) Crossmatch 07/05/17 07/05/17 08:21 10:55 WBC Hgb Hct MCV MCH MCHC RDW Plt Count Seg Neuts % (Manual) Lymphocytes % (Manual) Seg Neutrophils # Man Lymphocytes # (Manual) Monocytes # (Manual) Sodium 135 L 135 L Potassium Chloride Carbon Dioxide 18 L 16 L BUN 25 H 27 H Creatinine 2.7 H D 2.9 H Glucose 115 H 119 H POC Glucose Lactic Acid Calcium 7.9 L 8.0 L Iron TIBC Urine WBC (Auto) Crossmatch Chest x-ray: report reviewed (No acute process reported.), image reviewed Additional Studies: Abdominal CAT scan reported fluid filled loops of colon and small bowel. May be non obstructive ileus.
--- NOTE | 2017-07-05 14:38 | Progress Note ---
Assessment and Plan Assessment: 1) Severe sepsis: worsening leukocytosis 12-->42-->56K; etiology: unclear ? acute enterocolitis +/- ileus +/- bowel ischemia +/- perforation 2) Severe anemia: prob from fibroids 3) Nausea, vomiting, abdominal pain and diarrhea: Likely acute enterocolitis, pt became sick 2 hours after restaurant meal ([place] she ate a sub sandwich and wings). Should r/o bowel ischemia +/- perforation -CT - bowels were normal -repeat CT w contrast showed multiple non distended small and large bowel loops ? ileus, no evidence of colitis or enteritis 4) Hypertensive urgency 5) Vaginal bleeding: from fibroids. CT showed uterine fibroids, 2.3 c left ovarian cyst. 6) Right liver lesion ? hemangioma 7) Small pericardial effusion 8) EMMA Recommendations: -Surgical input appreciated - agree with exlap -stop levaquin and flagyl -start meropenem in view of severe sepsis from intraabdominal source -stop vanco in view of EMMA - no evidence of MRSA -add fluconazole -f/u stools for cultures, leukocytes and C diff -check TTE - pending Discussed with Dr Peterson and Dr Malagon Thanks for consultation Rachel Bryant MD Subjective Date of service: 07/05/17 Principal diagnosis: SIRS Interval history: Feels sicker, nauseated, c/o worsening abdominal pain, no fever Micro: Blood cx 07/03 ngtd Abx: Levaquin Flagyl Vanco Previous Abx: Zosyn Objective - Exam Narrative Exam: Alert in NAD anxious JULIANN, clear OP Neck no LN Lungs CTA sanchez CV tachy Abd soft TTP diffusely Ext no edema Skin no rash Neuro alert and oriented x 3 grossly normal - Constitutional Vitals: Vital Signs Temp Pulse Resp BP Pulse Ox 97.9 F 122 H 18 118/65 99 07/05/17 08:04 07/05/17 10:15 07/05/17 08:04 07/05/17 10:15 07/05/17 08:04 Temperature -Last 24 Hours Temperature 97.9 F Temperature 98.3 F Temperature 97.8 F Temperature 99.7 F Temperature 98.7 F Temperature 98.7 F - Labs CBC & Chem 7: 07/05/17 08:21 07/05/17 10:55 Labs: Abnormal lab results 07/04/17 07/04/17 07/05/17 Range/Units 12:09 17:11 08:21 WBC 56.3 H* (4.5-11.0) K/mm3 Hgb 8.3 L (10.1-14.3) gm/dl Hct 29.1 L (30.3-42.9) % MCV 66 L (79-97) fl MCH 19 L (28-32) pg MCHC 28 L (30-34) % RDW 38.3 H (13.2-15.2) % Seg Neuts % (Manual) 96.5 H (40.0-70.0) % Lymphocytes % (Manual) 1.0 L (13.4-35.0) % Seg Neutrophils # Man 54.3 H (1.8-7.7) K/mm3 Lymphocytes # (Manual) 0.6 L (1.2-5.4) K/mm3 Monocytes # (Manual) 1.4 H (0.0-0.8) K/mm3 Sodium (137-145) mmol/L Carbon Dioxide (22-30) mmol/L BUN (7-17) mg/dL Creatinine (0.7-1.2) mg/dL Glucose (65-100) mg/dL POC Glucose 169 H 124 H (70-105) Calcium (8.4-10.2) mg/dL 07/05/17 07/05/17 Range/Units 08:21 10:55 WBC (4.5-11.0) K/mm3 Hgb (10.1-14.3) gm/dl Hct (30.3-42.9) % MCV (79-97) fl MCH (28-32) pg MCHC (30-34) % RDW (13.2-15.2) % Seg Neuts % (Manual) (40.0-70.0) % Lymphocytes % (Manual) (13.4-35.0) % Seg Neutrophils # Man (1.8-7.7) K/mm3 Lymphocytes # (Manual) (1.2-5.4) K/mm3 Monocytes # (Manual) (0.0-0.8) K/mm3 Sodium 135 L 135 L (137-145) mmol/L Carbon Dioxide 18 L 16 L (22-30) mmol/L BUN 25 H 27 H (7-17) mg/dL Creatinine 2.7 H D 2.9 H (0.7-1.2) mg/dL Glucose 115 H 119 H (65-100) mg/dL POC Glucose (70-105) Calcium 7.9 L 8.0 L (8.4-10.2) mg/dL
[2017-07-05] MEDS ORDERED: MERREM 1,000 MG in NACL 0.9% 100 ML IV SCH (15:00)
--- NOTE | 2017-07-05 15:49 | Anesthesia Consultation ---
Anesthesia Consult and Med Hx Date of service: 07/05/17 - Airway Anesthetic Teeth Evaluation: Poor, Partials (upper) ROM Head & Neck: Adequate Mental/Hyoid Distance: Adequate Mallampati Class: Class III Intubation Access Assessment: Possibly Difficult - Pre-Operative Health Status ASA Pre-Surgery Classification: ASA2, Emergency Proposed Anesthetic Plan: General - Pulmonary Hx Smoking: Yes (1/3 p/day x 20 years) Hx Respiratory Symptoms: Yes (bronchitis) - Cardiovascular System Hx Hypertension: Yes (non complient with meds) - Other Systems Hx Substance Use: Yes (cocaine, last dose 1 month ago) Hx Obesity: Yes (overweight) - Additional Comments Anesthesia Medical History Comments: had 2 ectopic pregnancies, last 2006
--- NOTE | 2017-07-05 15:49 | Anesthesia Day of Surgery ---
Anesthesia Day of Surgery - Day of Surgery Patient Examined: Yes Patient H&P Reviewed: Yes Patient is NPO: Yes
--- NOTE | 2017-07-05 16:04 | Consultation ---
History of Present Illness - Reason for Consult Consult date: 07/05/17 acute renal failure Requesting physician: JENIFER MANDUJANO - History of Present Illness This is a 42 y/o female with PMH of HTN and alcohol use who presented to [facility] with c/o nausea, vomiting, vaginal bleeding, abdominal pain, hypothermia (core temp 91.6), and elevated blood pressure. Pt had systolic BP >200, takes lisinopril at home for anti-hypertensive management. Pt with worsening renal function today of 2.9. On admission, SCr level was 0.6. We were consulted to evaluate this pt who has EMMA. S/p CT Abdomen Pelvis with IV contrast on 07/04/17 showed multiple non-distended small and large bowel loops, questionable ileus, no evidence of colitis or enteritis. Gen surgery on board, planning on ex lap today. Pt reports taking aleve about once a week or so for pain. Past History Past Medical History: No medical history, hypertension Past Surgical History: No surgical history Social history: lives with family, alcohol abuse Medications and Allergies Allergies Allergy/AdvReac Type Severity Reaction Status Date / Time No Known Allergies Allergy Verified 07/03/17 05:14 Home Medications Medication Instructions Recorded Confirmed Last Taken Type Lisinopril [Zestril TAB] 10 mg PO QDAY 07/03/17 07/03/17 Unknown History Active Meds: Active Medications Amlodipine Besylate (Norvasc) 10 mg PO QDAY RADHA Last Admin: 07/05/17 10:15 Dose: 10 mg Hydralazine HCl (Apresoline) 10 mg IV Q4H PRN PRN Reason: Hypertension Last Admin: 07/03/17 14:32 Dose: 10 mg Hydromorphone HCl (Dilaudid) 0.5 mg IV Q6H PRN PRN Reason: Pain , Severe (7-10) Last Admin: 07/05/17 11:53 Dose: 0.5 mg Sodium Chloride (Nacl 0.9% 1000 Ml) 1,000 mls @ 125 mls/hr IV DIRECT RADHA Last Admin: 07/05/17 13:06 Dose: 125 mls/hr Meropenem 1,000 mg/ Sodium (Chloride) 100 mls @ 100 mls/hr IV Q8HR RADHA; Protocol Fluconazole (Diflucan) 200 mg in 100 mls @ 100 mls/hr IV Q24HR RADHA; Protocol Lorazepam (Ativan) 2 mg IV Q1HR PRN PRN Reason: CIWA-Ar 8-15 Lorazepam (Ativan) 4 mg IV Q1HR PRN PRN Reason: CIWA-Ar 16-25 Metoprolol Tartrate (Lopressor) 25 mg PO BID [facility] Last Admin: 07/05/17 10:14 Dose: 25 mg Morphine Sulfate (Morphine) 2 mg IV ONCE [facility] Last Admin: 07/04/17 16:04 Dose: 2 mg Vancomycin HCl (Vancomycin Pharmacy To Dose) 1 each IV PKCONSULT [facility] Exam - Vital Signs Vital signs: Vital Signs BP 218/103 07/03/17 05:02 - General Appearance General appearance: well-developed (no acute distress) EENT: ATNC Neck: Present: neck supple Respiratory: Clear to Ascultation Heart: tachycardia, S1S2 Gastrointestinal: Present: normoactive bowel sounds, tenderness Integumentary: warm and dry Neurologic: alert and oriented x3 Musculoskeletal: Present: other (no edema to both lower extremities) Psychiatric: cooperative Results - Lab Results 07/05/17 08:21 07/05/17 10:55 Most recent lab results Calcium 8.0 mg/dL (8.4-10.2) L 07/05/17 10:55 Assessment and Plan Assessment/Plan: Severe Sepsis: Questionable Liver Hemangioma: WBC increased 56.3 today, yesterday's WBC was 42.8 S/p CT Abdomen Pelvis with IV contrast on 07/04/17 showed multiple nondistended fluid filled loops of colon and small bowel, findings may represent nonobstructive ileus. ID consulted, on meropenem, diflucan, and vanco Blood cultures showed NGTD, C-diff toxin pending Urine culture showed 10-100,000 mixed culture >2, probably contamination Follow up ID recs Gen surgery on board, planning on Ex-Lap procedure today Acute Kidney Injury secondary to ATN from sepsis and contrast induced nephropathy, ACEI, no obstruction on CT: Non-Anion Gap Metabolic Acidosis: Renal function reviewed, SCr level was 2.9 today, yesterday's SCr level was 0.5 On admission, SCr level was 0.6 Renally dose meds Check Renal US CXR on 07/03/17 showed no acute process S/p 2 units of PRBCs during this admission thus far On 0.9% NS infusion at 125 ml/hr Echo on 07/03/17 showed LVEF 60-65% No hydronephrosis seen on CT ABD/Pelvis IV contrast on 07/04/17 Lisinopril already stopped Obtain daily weight Strict intake and output Reddy Catheter: No Renal plan d/w Dr Butt Continue supportive therapy Hypertensive Urgency: Improved S/p nicardipine drip Improved on current medication regimen of amlodipine, metoprolol, and PRN hydralazine Anemia: Vaginal Bleeding: Left simple ovarian cyst: S/p 2 units of PRBCs during this admission thus far Pelvic US on 07/03/17 showed multiple uterine fibroids, 2.2 cm simple left ovarian cyst Iron level low, check ferritin Monitor need for blood transfusion Alcohol Use: CIWA protocol
[2017-07-05] MEDS ORDERED: SUBLIMAZE ONE (18:14)
[2017-07-05] MEDS ORDERED: QUELICIN ONE (18:14)
[2017-07-05] MEDS ORDERED: XYLOCAINE MPF 2% ONE (18:14)
[2017-07-05] MEDS ORDERED: ZEMURON IV ONE ×2 (18:14→20:40)
[2017-07-05] MEDS ORDERED: DIPRIVAN 10 MG/ML IV ONE (18:15)
--- NOTE | 2017-07-05 18:36 | Progress Note ---
Assessment and Plan 42 yo F with 1. abd pain, ?enterocolitis 2. severe leukocytosis 3. EMMA 4. sepsis 5. anemia 6. fibroid uterus Patient's abdominal pain, WBC count worsening today. Peritoneal signs on physical exam. ?etiology. D/W ID Dr. Bryant and Dr Peterson. At this point, there is no etiology for abdominal pain and rising WBC count and worsening kidney function. The option of dx laparoscopy was discussed and all are agreeable. Plan: 1. NPO except ice chips 2. IVF 3. serial abdominal exams 4. IV abx - on vanco, flagyl, levaquin. ID on board 5. stool studies pending, r/o CDIFF 6. Hb stable 7. Due to worsening clinical condition I discussed diagnostic laparoscopy with the patient and her . All risks, benefits, and alternatives were discussed. They also know that we may not find the etiology of the abdominal pain with surgery but are using it as a tool to r/o any serious intraabdominal pathology. They understand and all questions answered. Consent obtained for diagnostic laparoscopy, possible open, possible bowel resection, possible ostomy. Thank you for this consultation, please call with questions or concerns. Subjective Date of service: 07/05/17 Narrative: Late note: Patient seen and examined earlier this am. The patient still c/o severe abdominal pain. No n/v. No additional f/c. She has not been able to eat. She is urinating but c/o burning with urination. Objective Vital Signs - 12hr 07/05/17 07/05/17 07/05/17 08:04 10:13 10:14 Temperature 97.9 F Pulse Rate 121 H 122 H 122 H Respiratory 18 Rate Blood Pressure 118/65 118/65 118/65 O2 Sat by Pulse 99 Oximetry 07/05/17 07/05/17 07/05/17 10:15 12:05 16:03 Temperature 98.7 F 98.0 F Pulse Rate 122 H 112 H 128 H Respiratory 18 20 Rate Blood Pressure 118/65 111/73 147/70 O2 Sat by Pulse 100 96 Oximetry - General physical appearance Narrative Exam: Gen: AAOx3. mod painful distress CV: s1, S2+ Resp: even and unlabored Abd: overall soft but mildly firm in epigastrum, mildly distended, +TTP generalized. + guarding and rebound. no rigidity. Ext: no c/c/e - Labs 07/05/17 08:21 07/05/17 10:55 Diabetes panel 07/05/17 07/05/17 Range/Units 08:21 10:55 Sodium 135 L 135 L (137-145) mmol/L Potassium 4.3 D 3.9 (3.6-5.0) mmol/L Chloride 100.8 99.8 (98-107) mmol/L Carbon Dioxide 18 L 16 L (22-30) mmol/L BUN 25 H 27 H (7-17) mg/dL Creatinine 2.7 H D 2.9 H (0.7-1.2) mg/dL Glucose 115 H 119 H (65-100) mg/dL Calcium 7.9 L 8.0 L (8.4-10.2) mg/dL Calcium panel 07/05/17 07/05/17 Range/Units 08:21 10:55 Calcium 7.9 L 8.0 L (8.4-10.2) mg/dL Pituitary panel 07/05/17 07/05/17 Range/Units 08:21 10:55 Sodium 135 L 135 L (137-145) mmol/L Potassium 4.3 D 3.9 (3.6-5.0) mmol/L Chloride 100.8 99.8 (98-107) mmol/L Carbon Dioxide 18 L 16 L (22-30) mmol/L BUN 25 H 27 H (7-17) mg/dL Creatinine 2.7 H D 2.9 H (0.7-1.2) mg/dL Glucose 115 H 119 H (65-100) mg/dL Calcium 7.9 L 8.0 L (8.4-10.2) mg/dL Adrenal panel 07/05/17 07/05/17 Range/Units 08:21 10:55 Sodium 135 L 135 L (137-145) mmol/L Potassium 4.3 D 3.9 (3.6-5.0) mmol/L Chloride 100.8 99.8 (98-107) mmol/L Carbon Dioxide 18 L 16 L (22-30) mmol/L BUN 25 H 27 H (7-17) mg/dL Creatinine 2.7 H D 2.9 H (0.7-1.2) mg/dL Glucose 115 H 119 H (65-100) mg/dL Calcium 7.9 L 8.0 L (8.4-10.2) mg/dL
[2017-07-05] MEDS ORDERED: NEO SYNEPHRINE/NS Syringe(OR USE) IV ONE (18:49)
[2017-07-05] MEDS ORDERED: NACL 0.9% 1000 ML 1,000 ML ONE ×5 (18:56→22:21)
[2017-07-05] MEDS ORDERED: DIPRIVAN 10 MG/ML 1,000 MG/100 ML BOTTLE IV ONE (21:19)
[2017-07-05] MEDS ORDERED: ARTIFICIAL TEARS OPHTH OINT OU PRN (21:19)
[2017-07-05] MEDS ORDERED: VASELINE LIP THERAPY TP PRN (21:19)
--- NOTE | 2017-07-05 21:33 | Post Operative Note ---
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 Approximately 30 cm of viable small bowel from ligament of treitz, transverse colon and remainder of colon viable. Procedure: Diagnostic laparoscopy, converted to exploratory laparotomy, small bowel resection, right hemicolectomy, temporary closure of abdomen. Anesthesia: GETA Surgeon: HITESH NORTH [employer]ay Shop Tester: JANINE DICKEY Estimated blood loss: 50-100ml Pathology: list (small bowel and colon) Specimen disposition: to lab Condition: other (guarded) Disposition: PACU (to ICU from PACU)
[2017-07-05] MEDS ORDERED: DIPRIVAN 10 MG/ML 1,000 MG/100 ML BOTTLE IV SCH (22:00)
[2017-07-05] MEDS ORDERED: fentaNYL DRIP Premix 2,000 MCG/100 ML BAG IV SCH (22:00)
[2017-07-05] MEDS ORDERED: NACL 0.9% 1000 ML 1,000 ML IV SCH (22:00)
[2017-07-05] MEDS ORDERED: NACL 0.9% 500 ML IV SCH (22:00)
[2017-07-05] MEDS: fentaNYL DRIP Premix 2,000 MCG/100 ML BAG IV SCH (22:20)
[2017-07-05 22:22] LABS: Bacteria,Urine 2+ /HPF (Negative); Bilirubin,Urine NEG (Negative); Blood,Urine SM (Negative); Color,Urine Yellow (Yellow); Urobilinogen,Urine < 2.0 mg/dL (<2.0)
[2017-07-05 22:24] LABS: WBC,Urine < 1.0 /HPF (0.0-6.0)
--- NOTE | 2017-07-05 22:46 | XRay Report ---
FINAL REPORT PROCEDURE: XR CHEST 1V AP TECHNIQUE: Chest radiograph anteroposterior view. CPT 71139 HISTORY: ETT placement COMPARISON: 07/03/2017 FINDINGS: Heart: Normal. Mediastinum/Vessels: Normal. Lungs/Pleural space: Lungs are expanded there are no infiltrates, effusions or pneumothoraces.. Bony thorax: No acute osseous abnormality. Life support devices: ET tube is in the mid trachea. NG tube is in the stomach.. IMPRESSION: No acute cardiopulmonary abnormality.
[2017-07-05 22:49] LABS: Creatinine,Urine 237.2 mg/dL (0.1-20.0); Microalbumin/Creatinine Ratio 168.2 ug/mg
[2017-07-05] MEDS ORDERED: SODIUM BICARBONATE IV ONE (23:45)
[2017-07-06] MEDS ORDERED: NACL 0.9% IV ONE
[2017-07-06] MEDS ORDERED: SODIUM BICARBONATE IV ONE ×2 (00:01)
[2017-07-06] MEDS ORDERED: NACL 0.9% 1000 ML ONE (00:01)
[2017-07-06] MEDS: DIFLUCAN 200 MG/100 ML BAG IV SCH ×2 (00:41→10:03)
[2017-07-06] MEDS: ATIVAN 100 MG in NACL 0.9% 50 ML, VIAFLEX EMPTY CONTAINER 0 ML IV SCH (03:00)
[2017-07-06] MEDS: fentaNYL DRIP Premix 2,000 MCG/100 ML BAG IV SCH (06:22)
[2017-07-06 08:03] LABS: Hematocrit 24.5 % (30.3-42.9); Hemoglobin 7.1 gm/dl (10.1-14.3); Mean Platelet Volume 8.3 fl (6-12); Red Blood Count 3.7 M/mm3 (3.65-5.03); Red Cell Distribution Width 38.6 % (13.2-15.2)
[2017-07-06 08:20] LABS: Calcium 5.8 mg/dL (8.4-10.2)
--- NOTE | 2017-07-06 08:32 | Progress Note ---
Assessment and Plan - Patient Problems (1) Ischemia, bowel Current Visit: Yes Status: Acute Plan to address problem: Plan for return to OR today for AbThera placement. Subjective Date of service: 07/06/17 Patient Reports: Positive: other (Pt intubated. ) Objective Vital Signs - 12hr 07/05/17 07/05/17 07/05/17 21:17 21:19 21:25 Temperature 99.3 F Pulse Rate 138 H 134 H 135 H Pulse Rate [ Right Dorsalis Pedis] Respiratory 20 20 Rate Blood Pressure 203/102 164/93 144/88 O2 Sat by Pulse 100 100 98 Oximetry 07/05/17 07/05/17 07/05/17 21:30 21:35 21:50 Temperature Pulse Rate 138 H 134 H 129 H Pulse Rate [ Right Dorsalis Pedis] Respiratory 21 19 19 Rate Blood Pressure 164/93 154/85 150/81 O2 Sat by Pulse 97 97 100 Oximetry 07/05/17 07/05/17 07/05/17 22:05 22:20 22:29 Temperature 99.0 F Pulse Rate 128 H 126 H 124 H Pulse Rate [ Right Dorsalis Pedis] Respiratory 21 20 Rate Blood Pressure 147/79 148/75 145/80 O2 Sat by Pulse 100 100 Oximetry 07/05/17 07/05/17 07/05/17 22:35 22:44 22:45 Temperature 98.8 F Pulse Rate 126 H 125 H Pulse Rate [ Right Dorsalis Pedis] Respiratory 21 20 Rate Blood Pressure 140/79 155/78 O2 Sat by Pulse 100 97 96 Oximetry 07/05/17 07/05/17 07/05/17 23:00 23:15 23:31 Temperature Pulse Rate 122 H 125 H 122 H Pulse Rate [ 126 H Right Dorsalis Pedis] Respiratory 16 20 19 Rate Blood Pressure 148/96 155/78 155/78 O2 Sat by Pulse 99 97 97 Oximetry 07/05/17 07/06/17 07/06/17 23:45 00:00 00:15 Temperature 99.0 F Pulse Rate 121 H 115 H 113 H Pulse Rate [ Right Dorsalis Pedis] Respiratory 17 20 18 Rate Blood Pressure 99/45 100/59 104/61 O2 Sat by Pulse 100 99 100 Oximetry 07/06/17 07/06/17 07/06/17 00:31 00:45 01:00 Temperature Pulse Rate 122 H 116 H 113 H Pulse Rate [ Right Dorsalis Pedis] Respiratory 19 20 16 Rate Blood Pressure 100/58 107/63 115/71 O2 Sat by Pulse 100 100 100 Oximetry 07/06/17 07/06/17 07/06/17 01:15 01:22 01:30 Temperature Pulse Rate 101 H 107 H 105 H Pulse Rate [ Right Dorsalis Pedis] Respiratory 19 19 Rate Blood Pressure 116/74 116/74 107/71 O2 Sat by Pulse 100 100 100 Oximetry 07/06/17 07/06/17 07/06/17 04:00 05:01 06:00 Temperature 99.6 F Pulse Rate 110 H Pulse Rate [ 126 H 126 H Right Dorsalis Pedis] Respiratory Rate Blood Pressure 92/52 O2 Sat by Pulse 100 Oximetry 07/06/17 07:31 Temperature Pulse Rate 109 H Pulse Rate [ Right Dorsalis Pedis] Respiratory Rate Blood Pressure 87/61 O2 Sat by Pulse 100 Oximetry - General physical appearance no distress - Respiratory normal expansion, normal respiratory effort - Abdomen soft, distended (mild. ), other (drainage expected from midline wound.) - Labs 07/06/17 07:28 07/06/17 07:28 Diabetes panel 07/05/17 07/05/17 07/05/17 Range/Units 08:21 10:55 22:04 Sodium 135 L 135 L (137-145) mmol/L Potassium 4.3 D 3.9 (3.6-5.0) mmol/L Chloride 100.8 99.8 (98-107) mmol/L Carbon Dioxide 18 L 16 L (22-30) mmol/L BUN 25 H 27 H (7-17) mg/dL Creatinine 2.7 H D 2.9 H (0.7-1.2) mg/dL Glucose 115 H 119 H (65-100) mg/dL Calcium 7.9 L 8.0 L (8.4-10.2) mg/dL Triglycerides 103 (2-149) mg/dL 07/06/17 Range/Units 07:28 Sodium 143 D (137-145) mmol/L Potassium 4.2 (3.6-5.0) mmol/L Chloride 112.6 H (98-107) mmol/L Carbon Dioxide 15 L (22-30) mmol/L BUN 35 H (7-17) mg/dL Creatinine 4.0 H (0.7-1.2) mg/dL Glucose 85 (65-100) mg/dL Calcium 5.8 L* D (8.4-10.2) mg/dL Triglycerides (2-149) mg/dL Calcium panel 07/05/17 07/05/17 07/06/17 Range/Units 08:21 10:55 07:28 Calcium 7.9 L 8.0 L 5.8 L* D (8.4-10.2) mg/dL Phosphorus 3.40 (2.5-4.5) mg/dL Pituitary panel 07/05/17 07/05/17 07/06/17 Range/Units 08:21 10:55 07:28 Sodium 135 L 135 L 143 D (137-145) mmol/L Potassium 4.3 D 3.9 4.2 (3.6-5.0) mmol/L Chloride 100.8 99.8 112.6 H (98-107) mmol/L Carbon Dioxide 18 L 16 L 15 L (22-30) mmol/L BUN 25 H 27 H 35 H (7-17) mg/dL Creatinine 2.7 H D 2.9 H 4.0 H (0.7-1.2) mg/dL Glucose 115 H 119 H 85 (65-100) mg/dL Calcium 7.9 L 8.0 L 5.8 L* D (8.4-10.2) mg/dL Adrenal panel 07/05/17 07/05/17 07/06/17 Range/Units 08:21 10:55 07:28 Sodium 135 L 135 L 143 D (137-145) mmol/L Potassium 4.3 D 3.9 4.2 (3.6-5.0) mmol/L Chloride 100.8 99.8 112.6 H (98-107) mmol/L Carbon Dioxide 18 L 16 L 15 L (22-30) mmol/L BUN 25 H 27 H 35 H (7-17) mg/dL Creatinine 2.7 H D 2.9 H 4.0 H (0.7-1.2) mg/dL Glucose 115 H 119 H 85 (65-100) mg/dL Calcium 7.9 L 8.0 L 5.8 L* D (8.4-10.2) mg/dL
[2017-07-06] MEDS ORDERED: MAGNESIUM SULFATE 4GM/100ML 4 GM/100 ML BAG IV PRN (08:56)
[2017-07-06] MEDS ORDERED: MAGNESIUM SULFATE 2GM/50ML 2 GM/50 ML BAG IV PRN (08:56)
[2017-07-06] MEDS ORDERED: KCL 10MEQ/100ML 10 MEQ/100 ML BAG IV PRN (08:56)
[2017-07-06] MEDS ORDERED: MAGNESIUM SULFATE 1 GM in NACL 0.9% 50 ML IV PRN (08:56)
[2017-07-06] MEDS ORDERED: KCL 20MEQ/100ML 20 MEQ/100 ML BAG IV PRN (08:56)
[2017-07-06] MEDS ORDERED: SODIUM PHOSPHATE 15 MMOL in NACL 0.9% 250ML 150 ML IV PRN (08:56)
[2017-07-06] MEDS ORDERED: SODIUM PHOSPHATE 30 MMOL in NACL 0.9% 500 ML 250 ML IV PRN (08:56)
--- NOTE | 2017-07-06 09:25 | Progress Note ---
Assessment and Plan Assessment and plan: Patient is a 42-year-old female with no significant past medical history significant for hypertension which she takes lisinopril 10 mg daily. She presents to the hospital complaining of nausea, vomiting vaginal bleeding is likely secondary. Which is normally very heavy. She reports the symptoms started about a day prior to admission was accompanied by diffuse abdominal pain to return and intensity of doing improving. On presentation to the hospital she was noted to have a core temperature of 91.6 with systolic blood pressure off well over 200. She denied any chest pain, but appeared generally uncomfortable. She denied any dysuria or increased frequency. She was unable to quantify the diarrhea. She reports alcohol use but this is limited to the weekend she states that this weekend she drank 2 bottles of wine. chimes in that once in a while she drinks them mixed with beer. 1. Severe Sepsis with worsening Leukocytosis 2. Peritoneal irritation r/o aortic Dissection 3. Severe Anemia 4. Ischemic/Gangrenous Bowel 5. Worsening luekocytosis 6. Symptomatic Anemia 7. Hypertensive urgency-resolved 8. Menorraghia secondary to Fibroids 9. Etoh use disorder 10. Right liver lesion ?Hemangioma 11. Multiple electrolyte abnormalities 12. Hypothermia-Resolved 13. Cocain abuse per hx. Not mentioned on admission. Only alcohol which was minimized. Plan S/P Resection of ischemia/Gangrenous bowel postop day 1 Question embolic versus cocaine induced. We'll give 2 additional packed red blood preparation for return to the OR for wound VAC placement. ID concerned about acute enterocolitis considering order of event with onset following [employer]. Lemon Picker input noted Hold valsartan Continue antibiotics per ID Discussed with surgery and also with ID Excessive fluids may be prohibitive considering Elevated BP and Blood product need on admission was. [facility] protocol Counselling for ETOH when more stable Field Service Tech surgical input noted Pain control Pelvic ultrasound NOTED. DVT/GI prophy No family at bedside. The high probability of a clinically significant, sudden or life threatening deterioration of the [GI, renal] system(s) required my full and direct attention , intervention and personal management. The aggregate critical care time was [35 ] minutes. This time is in addition to time spent performing reported procedures but includes the following: [X] Data Review and interpretation [X] Patient assessment and monitoring of vital signs [X] Documentation [X] Medication orders and management - Patient Problems (1) Severe sepsis Current Visit: Yes Status: Acute (2) Alcohol abuse Current Visit: Yes Status: Acute (3) Hypertensive urgency, malignant Current Visit: Yes Status: Acute (4) Anemia requiring transfusions Current Visit: Yes Status: Acute (5) Dysfunctional uterine bleeding Current Visit: Yes Status: Acute (6) Fibroids Current Visit: Yes Status: Acute (7) Hypothermia Current Visit: Yes Status: Acute History Interval history: Patient is seen today for: Abdominal pain, sepsis Seen and examined at bedside; 24hour events reviewed; nursing staff ; status post exploratory lap with resection of gangrenous all. Awakens to verbal stimuli. Remains on full ventilatory support. Hospitalist Physical - Physical exam Narrative exam: VITAL SIGNS: Reviewed. GENERAL: The patient with full mechanical ventilatory support postop day 1. Vital signs as documented. HEAD: No signs of head trauma. EYES: Pupils are equal. EARS: Hearing grossly intact. MOUTH: ET tube in place NECK: No adenopathy, no JVD. CHEST: Chest with clear breath sounds bilaterally. No wheezes, rales, or rhonchi. CARDIAC: Regular rate and rhythm. S1 and S2, without murmurs, gallops, or rubs. VASCULAR: No Edema. Peripheral pulses normal and equal in all extremities. ABDOMEN: Dressing in place open wound. MUSCULOSKELETAL: Extremities without clubbing, cyanosis or edema. NEUROLOGIC EXAM: Awakens to verbal stimuli full exam unable to obtain as patient lives mechanical ventilator. PSYCHIATRIC: Unable to assess SKIN: Open abdominal wound dressing in place - Constitutional Vitals: Temp Pulse Resp BP Pulse Ox 99.6 F 112 H 19 98/59 100 07/06/17 04:00 07/06/17 09:15 07/06/17 09:15 07/06/17 09:15 07/06/17 09:00 Results - Labs CBC & Chem 7: 07/06/17 07:28 07/06/17 07:28 Labs: Laboratory Last Values WBC 28.9 K/mm3 (4.5-11.0) H 07/06/17 07:28 RBC 3.70 M/mm3 (3.65-5.03) 07/06/17 07:28 Hgb 7.1 gm/dl (10.1-14.3) L 07/06/17 07:28 Hct 24.5 % (30.3-42.9) L 07/06/17 07:28 MCV 66 fl (79-97) L 07/06/17 07:28 MCH 19 pg (28-32) L 07/06/17 07:28 MCHC 29 % (30-34) L 07/06/17 07:28 RDW 38.6 % (13.2-15.2) H 07/06/17 07:28 Plt Count 331 K/mm3 (140-440) 07/06/17 07:28 Lymph % (Auto) Police Investigator 07/03/17 05:28 Tillman % (Auto) Police Investigator 07/03/17 05:28 Eos % (Auto) Police Investigator 07/03/17 05:28 Baso % (Auto) Police Investigator 07/03/17 05:28 Lymph # Police Investigator 07/03/17 05:28 Tillman # Police Investigator 07/03/17 05:28 Eos # Police Investigator 07/03/17 05:28 Baso # Police Investigator 07/03/17 05:28 Add Manual Diff Complete 07/05/17 08:21 Total Counted 200 07/05/17 08:21 Seg Neutrophils % Police Investigator 07/05/17 08:21 Seg Neuts % (Manual) 96.5 % (40.0-70.0) H 07/05/17 08:21 Band Neutrophils % 0 % 07/05/17 08:21 Lymphocytes % (Manual) 1.0 % (13.4-35.0) L 07/05/17 08:21 Reactive Lymphs % (Man) 0 % 07/05/17 08:21 Monocytes % (Manual) 2.5 % (0.0-7.3) 07/05/17 08:21 Eosinophils % (Manual) 0 % (0.0-4.3) 07/05/17 08:21 Basophils % (Manual) 0 % (0.0-1.8) 07/05/17 08:21 Metamyelocytes % 0 % 07/05/17 08:21 Myelocytes % 0 % 07/05/17 08:21 Promyelocytes % 0 % 07/05/17 08:21 Blast Cells % 0 % 07/05/17 08:21 Nucleated RBC % 0.5 % (0.0-0.9) 07/05/17 08:21 Seg Neutrophils # Police Investigator 07/03/17 05:28 Seg Neutrophils # Man 54.3 K/mm3 (1.8-7.7) H 07/05/17 08:21 Band Neutrophils # 0.0 K/mm3 07/05/17 08:21 Lymphocytes # (Manual) 0.6 K/mm3 (1.2-5.4) L 07/05/17 08:21 Abs React Lymphs (Man) 0.0 K/mm3 07/05/17 08:21 Monocytes # (Manual) 1.4 K/mm3 (0.0-0.8) H 07/05/17 08:21 Eosinophils # (Manual) 0.0 K/mm3 (0.0-0.4) 07/05/17 08:21 Basophils # (Manual) 0.0 K/mm3 (0.0-0.1) 07/05/17 08:21 Metamyelocytes # 0.0 K/mm3 07/05/17 08:21 Myelocytes # 0.0 K/mm3 07/05/17 08:21 Promyelocytes # 0.0 K/mm3 07/05/17 08:21 Blast Cells # 0.0 K/mm3 07/05/17 08:21 Pathologist Review 07/04/17 04:39 WBC Morphology Not Reportable 07/05/17 08:21 Hypersegmented Neuts Rare 07/05/17 08:21 Hyposegmented Neuts Not Reportable 07/05/17 08:21 Hypogranular Neuts Not Reportable 07/05/17 08:21 Smudge Cells Not Reportable 07/05/17 08:21 Toxic Granulation Not Reportable 07/05/17 08:21 Toxic Vacuolation Not Reportable 07/05/17 08:21 Dohle Bodies Not Reportable 07/05/17 08:21 Pelger-Huet Anomaly Not Reportable 07/05/17 08:21 Irma Rods Not Reportable 07/05/17 08:21 Platelet Estimate Cons 07/05/17 08:21 Clumped Platelets Not Reportable 07/05/17 08:21 Plt Clumps, EDTA Not Reportable 07/05/17 08:21 Large Platelets Few 07/05/17 08:21 Giant Platelets Not Reportable 07/05/17 08:21 Platelet Satelliting Not Reportable 07/05/17 08:21 Plt Morphology Comment Not Reportable 07/05/17 08:21 RBC Morphology Not Reportable 07/05/17 08:21 Dimorphic RBCs Not Reportable 07/05/17 08:21 Polychromasia Few 07/05/17 08:21 Hypochromasia 2+ 07/05/17 08:21 Poikilocytosis 1+ 07/05/17 08:21 Anisocytosis 3+ 07/05/17 08:21 Microcytosis 1+ 07/05/17 08:21 Macrocytosis Not Reportable 07/05/17 08:21 Spherocytes Not Reportable 07/05/17 08:21 Pappenheimer Bodies Not Reportable 07/05/17 08:21 Sickle Cells Not Reportable 07/05/17 08:21 Target Cells Rare 07/05/17 08:21 Tear Drop Cells Few 07/05/17 08:21 Ovalocytes Few 07/05/17 08:21 Helmet Cells Not Reportable 07/05/17 08:21 [place] Bodies Not Reportable 07/05/17 08:21 [place] Rings Not Reportable 07/05/17 08:21 [place] Cells Not Reportable 07/05/17 08:21 Bite Cells Not Reportable 07/05/17 08:21 Crenated Cell Not Reportable 07/05/17 08:21 Elliptocytes Not Reportable 07/05/17 08:21 Acanthocytes (Spur) Not Reportable 07/05/17 08:21 Rouleaux Not Reportable 07/05/17 08:21 Hemoglobin C Crystals Not Reportable 07/05/17 08:21 Schistocytes Rare 07/05/17 08:21 Malaria parasites Not Reportable 07/05/17 08:21 Roberto Bodies Not Reportable 07/05/17 08:21 Haptoglobin 204 mg/dL (43-212) 07/03/17 09:31 Hem Pathologist Commnt No 07/05/17 08:21 PT 12.5 Sec. (12.2-14.9) 07/03/17 06:19 INR 0.89 (0.87-1.13) 07/03/17 06:19 APTT 24.6 Sec. (24.2-36.6) 07/03/17 09:31 Fibrinogen 350 mg/dl (211-480) 07/03/17 09:31 POC ABG pH 7.352 (7.35-7.45) 07/06/17 05:17 POC ABG pCO2 28.0 (35-45) L 07/06/17 05:17 POC ABG pO2 193 (80-105) H 07/06/17 05:17 POC ABG HCO3 15.5 07/06/17 05:17 POC ABG Total CO2 16 07/06/17 05:17 POC ABG O2 Sat 100 07/06/17 05:17 POC ABG Base Excess -10 07/06/17 05:17 VBG pH 7.372 (7.320-7.420) 07/03/17 06:19 FiO2 50 % 07/06/17 05:17 Sodium 143 mmol/L (137-145) D 07/06/17 07:28 Potassium 4.2 mmol/L (3.6-5.0) 07/06/17 07:28 Chloride 112.6 mmol/L (98-107) H 07/06/17 07:28 Carbon Dioxide 15 mmol/L (22-30) L 07/06/17 07:28 Anion Gap 20 mmol/L 07/06/17 07:28 BUN 35 mg/dL (7-17) H 07/06/17 07:28 Creatinine 4.0 mg/dL (0.7-1.2) H 07/06/17 07:28 Estimated GFR 15 ml/min 07/06/17 07:28 BUN/Creatinine Ratio 9 % 07/06/17 07:28 Glucose 85 mg/dL (65-100) 07/06/17 07:28 POC Glucose 124 (70-105) H 07/04/17 17:11 Lactic Acid 0.90 mmol/L (0.7-2.0) 07/06/17 07:28 Calcium 5.8 mg/dL (8.4-10.2) L* D 07/06/17 07:28 Phosphorus 3.40 mg/dL (2.5-4.5) 07/06/17 07:28 Magnesium 1.20 mg/dL (1.7-2.3) L 07/06/17 07:28 Iron 12 ug/dL (37-170) L 07/03/17 09:31 TIBC 534 mcg/dL (250-450) H 07/03/17 09:31 Transferrin 148 mg/dl (192-382) L 07/06/17 07:28 Ferritin 79.1 ng/mL (13.0-400.0) 07/06/17 07:28 Total Bilirubin 0.40 mg/dL (0.1-1.2) 07/03/17 05:28 AST 17 units/L (5-40) 07/03/17 05:28 ALT 10 units/L (7-56) 07/03/17 05:28 Alkaline Phosphatase 74 units/L (35-129) 07/03/17 05:28 Total Protein 7.5 g/dL (6.3-8.2) 07/03/17 05:28 Albumin 4.5 g/dL (3.9-5) 07/03/17 05:28 Albumin/Globulin Ratio 1.5 % 07/03/17 05:28 Triglycerides 103 mg/dL (2-149) 07/05/17 22:04 Lipase 18 units/L (13-60) 07/03/17 05:28 TSH 0.561 mlU/mL (0.270-4.200) 07/04/17 14:38 HCG, Qual Negative (Negative) 07/03/17 06:19 HCG, Quant < 2 mIU/mL (0-4) 07/05/17 15:50 PTH Intact 285.9 pg/mL (15-65) H 07/06/17 07:28 Urine Color Yellow (Yellow) 07/05/17 Unknown Urine Turbidity Clear (Clear) 07/05/17 Unknown Urine pH 5.0 (5.0-7.0) 07/05/17 Unknown Ur Specific [place] 1.021 (1.003-1.030) 07/05/17 Unknown Urine Protein 100 mg/dl mg/dL (Negative) 07/05/17 Unknown Urine Glucose (UA) 50 mg/dL (Negative) 07/05/17 Unknown Urine Ketones Tr mg/dL (Negative) 07/05/17 Unknown Urine Blood Sm (Negative) 07/05/17 Unknown Urine Nitrite Neg (Negative) 07/05/17 Unknown Urine Bilirubin Neg (Negative) 07/05/17 Unknown Urine Urobilinogen < 2.0 mg/dL (<2.0) 07/05/17 Unknown Ur Leukocyte Esterase Tr (Negative) 07/05/17 Unknown Urine WBC (Auto) < 1.0 /HPF (0.0-6.0) 07/05/17 Unknown Urine RBC (Auto) 10.0 /HPF (0.0-6.0) 07/05/17 Unknown U Epithel Cells (Auto) 9.0 /HPF (0-13.0) 07/05/17 Unknown Urine Bacteria (Auto) 2+ /HPF (Negative) 07/05/17 Unknown Urine Mucus Few /HPF 07/03/17 Unknown Urine Eosinophils None seen (None Seen) 07/05/17 Unknown Urine Creatinine 237.2 mg/dL (0.1-20.0) H 07/05/17 Unknown Urine Microalbumin 39.9 mg/dL (0.1-34.0) H 07/05/17 Unknown Microalb/Creat Ratio 168.2 ug/mg 07/05/17 Unknown Urine Sodium 18 mmol/L 07/05/17 Unknown Urine Total Protein 170 mg/dL (5-11.8) H 07/05/17 Unknown Blood Type O POSITIVE 07/03/17 06:35 Antibody Screen Negative 07/03/17 06:35 Crossmatch See Detail 07/03/17 06:35
[2017-07-06] MEDS ORDERED: CALCIUM GLUCONATE 1,000 MG in NACL 0.9% 100 ML IV ONE (10:00)
[2017-07-06] MEDS ORDERED: MAGNESIUM SULFATE 3 GM in NACL 0.9% 100 ML IV ONE (10:00)
[2017-07-06] MEDS: PEPCID IV SCH (10:03)
--- NOTE | 2017-07-06 10:05 | Consultation ---
History of Present Illness Consult date: 07/06/17 Requesting physician: JENIFER MANDUJANO Reason for consult: other (Acute Hypoxemic Respirratory Failure on MVS) History of present illness: PULMONARY/CCM CONSULT NOTE (Full dictation # [id number]) Please see dictated notes for full details Past History Past Medical History: No medical history, hypertension Past Surgical History: No surgical history Social history: lives with family, alcohol abuse Medications and Allergies Allergies Allergy/AdvReac Type Severity Reaction Status Date / Time No Known Allergies Allergy Verified 07/03/17 05:14 Home Medications Medication Instructions Recorded Confirmed Last Taken Type Lisinopril [Zestril TAB] 10 mg PO QDAY 07/03/17 07/03/17 Unknown History Active Meds: Active Medications Famotidine (Pepcid) 20 mg IV DAILY RADHA Hydralazine HCl (Apresoline) 10 mg IV Q4H PRN PRN Reason: Hypertension Last Admin: 07/03/17 14:32 Dose: 10 mg Hydrophilic Ointment (Vaseline Lip Therapy) 1 applic TP Q2HR PRN PRN Reason: Dry Lips Fluconazole (Diflucan) 200 mg in 100 mls @ 100 mls/hr IV Q24HR RADHA; Protocol Last Admin: 07/06/17 00:41 Dose: Not Given Fentanyl Citrate (Fentanyl Drip Premix) 2,000 mcg in 100 mls @ 3.735 mls/hr IV TITR RADHA; Protocol Last Admin: 07/06/17 06:22 Dose: 1 mcg/kg/hr, 3.735 mls/hr Lorazepam 100 mg/ Sodium Chloride/ Miscellaneous Information 100 mls @ 1 mls/ hr IV TITR RADHA; Protocol Last Admin: 07/06/17 03:00 Dose: 1 mg/hr, 1 mls/hr Propofol (Diprivan 10 Mg/Ml) 1,000 mg in 100 mls @ 2.241 mls/hr IV TITR RADHA; Protocol Last Titration: 07/06/17 03:00 Dose: 0 mcg/kg/min, 0 mls/hr Sodium Chloride (Nacl 0.9% 1000 Ml) 1,000 mls @ 150 mls/hr IV DIRECT RADHA Last Admin: 07/06/17 06:24 Dose: 150 mls/hr Calcium Gluconate 1,000 mg/ (Sodium Chloride) 110 mls @ 660 mls/hr IV ONCE ONE Stop: 07/06/17 10:09 Magnesium Sulfate 3 gm/ Sodium (Chloride) 106 mls @ 35.333 mls/hr IV ONCE ONE Stop: 07/06/17 12:59 Meropenem 1,000 mg/ Sodium (Chloride) 100 mls @ 100 mls/hr IV Q24HR RADHA Multi-Ingred Cream/Lotion/Oil/Oint (Artificial Tears Ophth Oint) 1 applic OU Q4HR PRN PRN Reason: Dry Eye(s) Sodium Chloride (Nacl 0.9% 500 Ml) 1 ml IV DIRECT RADHA Physical Examination Vital signs: Vital Signs BP 218/103 07/03/17 05:02 Results - Laboratory Findings CBC and BMP: 07/06/17 07:28 07/06/17 07:28 ABG POC ABG pH 7.352 (7.35-7.45) 07/06/17 05:17 POC ABG pCO2 28.0 (35-45) L 07/06/17 05:17 POC ABG pO2 193 (80-105) H 07/06/17 05:17 POC ABG HCO3 15.5 07/06/17 05:17 POC ABG Total CO2 16 07/06/17 05:17 POC ABG O2 Sat 100 07/06/17 05:17 PT/INR, D-dimer PT 12.5 Sec. (12.2-14.9) 07/03/17 06:19 INR 0.89 (0.87-1.13) 07/03/17 06:19 Abnormal lab findings: Abnormal Labs 07/03/17 07/03/17 07/03/17 05:11 05:28 05:28 WBC 12.9 H Hgb 5.6 L* Hct 22.3 L MCV 59 L MCH 15 L MCHC 25 L RDW 33.3 H Plt Count 125 L Seg Neuts % (Manual) 75.0 H Lymphocytes % (Manual) Seg Neutrophils # Man 9.7 H Lymphocytes # (Manual) Monocytes # (Manual) POC ABG pH POC ABG pCO2 POC ABG pO2 Sodium Potassium 3.0 L Chloride Carbon Dioxide BUN Creatinine 0.6 L Glucose 220 H POC Glucose 188 H Lactic Acid Calcium Magnesium Iron TIBC Transferrin PTH Intact Urine WBC (Auto) Urine Creatinine Urine Microalbumin Urine Total Protein Crossmatch 07/03/17 07/03/17 07/03/17 06:19 06:35 08:42 WBC Hgb Hct MCV MCH MCHC RDW Plt Count Seg Neuts % (Manual) Lymphocytes % (Manual) Seg Neutrophils # Man Lymphocytes # (Manual) Monocytes # (Manual) POC ABG pH POC ABG pCO2 POC ABG pO2 Sodium Potassium Chloride Carbon Dioxide BUN Creatinine Glucose POC Glucose Lactic Acid 2.50 H* 2.20 H* Calcium Magnesium Iron TIBC Transferrin PTH Intact Urine WBC (Auto) Urine Creatinine Urine Microalbumin Urine Total Protein Crossmatch See Detail 07/03/17 07/03/17 07/03/17 09:31 09:31 11:50 WBC Hgb 5.7 L* Hct 22.4 L MCV MCH MCHC RDW Plt Count Seg Neuts % (Manual) Lymphocytes % (Manual) Seg Neutrophils # Man Lymphocytes # (Manual) Monocytes # (Manual) POC ABG pH POC ABG pCO2 POC ABG pO2 Sodium Potassium Chloride Carbon Dioxide BUN Creatinine Glucose POC Glucose Lactic Acid 2.80 H* Calcium Magnesium Iron 12 L TIBC 534 H Transferrin PTH Intact Urine WBC (Auto) Urine Creatinine Urine Microalbumin Urine Total Protein Crossmatch 07/03/17 07/03/17 07/03/17 16:50 16:50 Unknown WBC Hgb 9.7 L D Hct MCV MCH MCHC RDW Plt Count Seg Neuts % (Manual) Lymphocytes % (Manual) Seg Neutrophils # Man Lymphocytes # (Manual) Monocytes # (Manual) POC ABG pH POC ABG pCO2 POC ABG pO2 Sodium Potassium Chloride Carbon Dioxide BUN Creatinine Glucose POC Glucose Lactic Acid 2.30 H* Calcium Magnesium Iron TIBC Transferrin PTH Intact Urine WBC (Auto) 18.0 H Urine Creatinine Urine Microalbumin Urine Total Protein Crossmatch 07/04/17 07/04/17 07/04/17 03:57 03:57 04:39 WBC 42.4 H* 42.8 H* Hgb 9.1 L 9.3 L Hct MCV 65 L 66 L MCH 19 L 20 L MCHC 29 L RDW 37.3 H 37.3 H Plt Count 120 L Seg Neuts % (Manual) 93.5 H Lymphocytes % (Manual) 2.5 L Seg Neutrophils # Man 40.0 H Lymphocytes # (Manual) 1.1 L Monocytes # (Manual) 1.1 H POC ABG pH POC ABG pCO2 POC ABG pO2 Sodium 134 L Potassium 3.5 L Chloride 95.4 L Carbon Dioxide 21 L BUN 6 L Creatinine 0.5 L Glucose 147 H POC Glucose Lactic Acid Calcium 7.9 L Magnesium Iron TIBC Transferrin PTH Intact Urine WBC (Auto) Urine Creatinine Urine Microalbumin Urine Total Protein Crossmatch 07/04/17 07/04/17 07/05/17 12:09 17:11 08:21 WBC 56.3 H* Hgb 8.3 L Hct 29.1 L MCV 66 L MCH 19 L MCHC 28 L RDW 38.3 H Plt Count Seg Neuts % (Manual) 96.5 H Lymphocytes % (Manual) 1.0 L Seg Neutrophils # Man 54.3 H Lymphocytes # (Manual) 0.6 L Monocytes # (Manual) 1.4 H POC ABG pH POC ABG pCO2 POC ABG pO2 Sodium Potassium Chloride Carbon Dioxide BUN Creatinine Glucose POC Glucose 169 H 124 H Lactic Acid Calcium Magnesium Iron TIBC Transferrin PTH Intact Urine WBC (Auto) Urine Creatinine Urine Microalbumin Urine Total Protein Crossmatch 07/05/17 07/05/17 07/05/17 08:21 10:55 22:34 WBC Hgb Hct MCV MCH MCHC RDW Plt Count Seg Neuts % (Manual) Lymphocytes % (Manual) Seg Neutrophils # Man Lymphocytes # (Manual) Monocytes # (Manual) POC ABG pH 7.185 L POC ABG pCO2 33.8 L POC ABG pO2 Sodium 135 L 135 L Potassium Chloride Carbon Dioxide 18 L 16 L BUN 25 H 27 H Creatinine 2.7 H D 2.9 H Glucose 115 H 119 H POC Glucose Lactic Acid Calcium 7.9 L 8.0 L Magnesium Iron TIBC Transferrin PTH Intact Urine WBC (Auto) Urine Creatinine Urine Microalbumin Urine Total Protein Crossmatch 07/05/17 07/06/17 07/06/17 Unknown 05:17 07:28 WBC Hgb Hct MCV MCH MCHC RDW Plt Count Seg Neuts % (Manual) Lymphocytes % (Manual) Seg Neutrophils # Man Lymphocytes # (Manual) Monocytes # (Manual) POC ABG pH POC ABG pCO2 28.0 L POC ABG pO2 193 H Sodium Potassium Chloride 112.6 H Carbon Dioxide 15 L BUN 35 H Creatinine 4.0 H Glucose POC Glucose Lactic Acid Calcium 5.8 L* D Magnesium 1.20 L Iron TIBC Transferrin 148 L PTH Intact Urine WBC (Auto) Urine Creatinine 237.2 H Urine Microalbumin 39.9 H Urine Total Protein 170 H Crossmatch 07/06/17 07/06/17 07:28 07:28 WBC 28.9 H Hgb 7.1 L Hct 24.5 L MCV 66 L MCH 19 L MCHC 29 L RDW 38.6 H Plt Count Seg Neuts % (Manual) Lymphocytes % (Manual) Seg Neutrophils # Man Lymphocytes # (Manual) Monocytes # (Manual) POC ABG pH POC ABG pCO2 POC ABG pO2 Sodium Potassium Chloride Carbon Dioxide BUN Creatinine Glucose POC Glucose Lactic Acid Calcium Magnesium Iron TIBC Transferrin PTH Intact 285.9 H Urine WBC (Auto) Urine Creatinine Urine Microalbumin Urine Total Protein Crossmatch
[2017-07-06] MEDS ORDERED: NACL 0.9% 500 ML 500 ML IV NR (11:30)
--- NOTE | 2017-07-06 12:31 | Anesthesia Day of Surgery ---
Anesthesia Day of Surgery - Day of Surgery Patient Examined: Yes Patient H&P Reviewed: Yes Patient is NPO: Yes
--- NOTE | 2017-07-06 12:33 | Progress Note ---
Subjective Date of service: 07/06/17 Principal diagnosis: SIRS Interval history: Scheduled for ex lap/wound vac. Remains intubated,sedated. Concerns- ischemic/gangrenous bowel,HTN, severe sepsis, sever anemia, alcohol, cocaine abuse ASA 4. Transfuse 2 units Objective - Constitutional Vitals: Vital Signs - 12hr 07/06/17 07/06/17 07/06/17 00:45 01:00 01:15 Temperature Pulse Rate 116 H 113 H 101 H Pulse Rate [ Right Dorsalis Pedis] Respiratory 20 16 19 Rate Blood Pressure 107/63 115/71 116/74 O2 Sat by Pulse 100 100 100 Oximetry 07/06/17 07/06/17 07/06/17 01:22 01:30 01:45 Temperature Pulse Rate 107 H 105 H 107 H Pulse Rate [ Right Dorsalis Pedis] Respiratory 19 17 Rate Blood Pressure 116/74 107/71 95/64 O2 Sat by Pulse 100 100 100 Oximetry 07/06/17 07/06/17 07/06/17 02:00 02:15 02:30 Temperature Pulse Rate 105 H 105 H 102 H Pulse Rate [ Right Dorsalis Pedis] Respiratory 18 18 18 Rate Blood Pressure 95/55 94/56 90/53 O2 Sat by Pulse 100 Oximetry 07/06/17 07/06/17 07/06/17 02:45 03:00 03:15 Temperature Pulse Rate 102 H 103 H 104 H Pulse Rate [ Right Dorsalis Pedis] Respiratory 18 18 18 Rate Blood Pressure 87/50 89/52 96/55 O2 Sat by Pulse 100 100 Oximetry 07/06/17 07/06/17 07/06/17 03:30 03:45 04:00 Temperature 99.6 F Pulse Rate 103 H 106 H 106 H Pulse Rate [ 126 H Right Dorsalis Pedis] Respiratory 18 18 18 Rate Blood Pressure 95/54 94/53 98/58 O2 Sat by Pulse 100 100 100 Oximetry 07/06/17 07/06/17 07/06/17 04:15 04:30 04:45 Temperature Pulse Rate 109 H 109 H 109 H Pulse Rate [ Right Dorsalis Pedis] Respiratory 17 18 18 Rate Blood Pressure 96/55 93/56 92/52 O2 Sat by Pulse 100 Oximetry 07/06/17 07/06/17 07/06/17 05:00 05:01 05:15 Temperature Pulse Rate 110 H 110 H 112 H Pulse Rate [ Right Dorsalis Pedis] Respiratory 17 17 Rate Blood Pressure 78/53 92/52 82/53 O2 Sat by Pulse 100 Oximetry 07/06/17 07/06/17 07/06/17 05:30 05:45 06:00 Temperature Pulse Rate 111 H 109 H 111 H Pulse Rate [ 126 H Right Dorsalis Pedis] Respiratory 17 18 18 Rate Blood Pressure 85/49 85/48 78/51 O2 Sat by Pulse 100 Oximetry 07/06/17 07/06/17 07/06/17 06:15 06:30 06:45 Temperature Pulse Rate 108 H 110 H 108 H Pulse Rate [ Right Dorsalis Pedis] Respiratory 18 18 18 Rate Blood Pressure 88/52 94/53 100/56 O2 Sat by Pulse 100 100 100 Oximetry 07/06/17 07/06/17 07/06/17 07:00 07:15 07:30 Temperature Pulse Rate 108 H 108 H 111 H Pulse Rate [ Right Dorsalis Pedis] Respiratory 18 18 20 Rate Blood Pressure 87/56 88/56 87/61 O2 Sat by Pulse 100 100 Oximetry 07/06/17 07/06/17 07/06/17 07:31 07:45 08:00 Temperature Pulse Rate 109 H 110 H 111 H Pulse Rate [ Right Dorsalis Pedis] Respiratory 17 17 Rate Blood Pressure 87/61 100/60 98/60 O2 Sat by Pulse 100 100 Oximetry 07/06/17 07/06/17 07/06/17 08:15 08:30 08:45 Temperature Pulse Rate 110 H 109 H 112 H Pulse Rate [ Right Dorsalis Pedis] Respiratory 17 17 16 Rate Blood Pressure 99/63 93/54 98/62 O2 Sat by Pulse 100 Oximetry 07/06/17 07/06/17 07/06/17 09:00 09:15 12:23 Temperature Pulse Rate 110 H 112 H 115 H Pulse Rate [ Right Dorsalis Pedis] Respiratory 17 19 Rate Blood Pressure 110/65 98/59 123/69 O2 Sat by Pulse 100 100 Oximetry - Labs CBC & Chem 7: 07/06/17 07:28 07/06/17 07:28 Labs: Abnormal lab results 07/05/17 07/05/17 07/06/17 Range/Units 22:34 Unknown 05:17 WBC (4.5-11.0) K/mm3 Hgb (10.1-14.3) gm/dl Hct (30.3-42.9) % MCV (79-97) fl MCH (28-32) pg MCHC (30-34) % RDW (13.2-15.2) % POC ABG pH 7.185 L (7.35-7.45) POC ABG pCO2 33.8 L 28.0 L (35-45) POC ABG pO2 193 H (80-105) Chloride (98-107) mmol/L Carbon Dioxide (22-30) mmol/L BUN (7-17) mg/dL Creatinine (0.7-1.2) mg/dL Calcium (8.4-10.2) mg/dL Magnesium (1.7-2.3) mg/dL Transferrin (192-382) mg/dl PTH Intact (15-65) pg/mL Urine Creatinine 237.2 H (0.1-20.0) mg/dL Urine Microalbumin 39.9 H (0.1-34.0) mg/dL Urine Total Protein 170 H (5-11.8) mg/dL Crossmatch 07/06/17 07/06/17 07/06/17 Range/Units 07:28 07:28 07:28 WBC 28.9 H (4.5-11.0) K/mm3 Hgb 7.1 L (10.1-14.3) gm/dl Hct 24.5 L (30.3-42.9) % MCV 66 L (79-97) fl MCH 19 L (28-32) pg MCHC 29 L (30-34) % RDW 38.6 H (13.2-15.2) % POC ABG pH (7.35-7.45) POC ABG pCO2 (35-45) POC ABG pO2 (80-105) Chloride 112.6 H (98-107) mmol/L Carbon Dioxide 15 L (22-30) mmol/L BUN 35 H (7-17) mg/dL Creatinine 4.0 H (0.7-1.2) mg/dL Calcium 5.8 L* D (8.4-10.2) mg/dL Magnesium 1.20 L (1.7-2.3) mg/dL Transferrin 148 L (192-382) mg/dl PTH Intact 285.9 H (15-65) pg/mL Urine Creatinine (0.1-20.0) mg/dL Urine Microalbumin (0.1-34.0) mg/dL Urine Total Protein (5-11.8) mg/dL Crossmatch 07/06/17 Range/Units 10:27 WBC (4.5-11.0) K/mm3 Hgb (10.1-14.3) gm/dl Hct (30.3-42.9) % MCV (79-97) fl MCH (28-32) pg MCHC (30-34) % RDW (13.2-15.2) % POC ABG pH (7.35-7.45) POC ABG pCO2 (35-45) POC ABG pO2 (80-105) Chloride (98-107) mmol/L Carbon Dioxide (22-30) mmol/L BUN (7-17) mg/dL Creatinine (0.7-1.2) mg/dL Calcium (8.4-10.2) mg/dL Magnesium (1.7-2.3) mg/dL Transferrin (192-382) mg/dl PTH Intact (15-65) pg/mL Urine Creatinine (0.1-20.0) mg/dL Urine Microalbumin (0.1-34.0) mg/dL Urine Total Protein (5-11.8) mg/dL Crossmatch See Detail
[2017-07-06] MEDS ORDERED: ZEMURON IV ONE (12:45)
--- NOTE | 2017-07-06 13:58 | XRay Report ---
AP CHEST: HISTORY: Left arm PICC placement A left arm PICC has been inserted which terminates in the mid right atrium. Consider retraction by 3 cm. Cardiomegaly and mild pulmonary venous congestion are stable. The lungs are clear. The endotracheal tube remains in good position. The nasogastric tube has been retracted and now terminates in the distal esophagus. IMPRESSION: No change in cardiomegaly and pulmonary venous congestion. Left arm PICC terminates in the right atrium. The nasogastric tube has been retracted and now terminates in the distal esophagus.
[2017-07-06] MEDS ORDERED: SUBLIMAZE ONE (14:01)
[2017-07-06] MEDS ORDERED: DIPRIVAN 10 MG/ML IV ONE (14:02)
--- NOTE | 2017-07-06 14:27 | Progress Note ---
Assessment and Plan Severe Sepsis: Questionable Liver Hemangioma: ID consulted, on meropenem, diflucan, and vanco Urine culture showed 10-100,000 mixed culture >2, probably contamination Follow up ID recs Gen surgery on board Acute Kidney Injury secondary to ATN Non-Anion Gap Metabolic Acidosis: Cr cont to rise, may need SURGERY AID in the next 24-48 hours if no improvement will switch IVF to 1/2 NS with NaHCO3 75 meq 125 cc/h will give extra calcium gluconate 2 grams and check ionized calcium in AM Echo on 07/03/17 showed LVEF 60-65% No hydronephrosis seen on CT ABD/Pelvis IV contrast on 07/04/17 Lisinopril already stopped Obtain daily weight Strict intake and output Reddy Catheter: No Anemia: Vaginal Bleeding: Left simple ovarian cyst: Monitor need for blood transfusion Alcohol Use: CIWA protocol Subjective Date of service: 07/06/17 Principal diagnosis: SIRS Interval history: patient was in the OR Objective - Vital Signs Vital signs: Vital Signs - 12hr 07/06/17 07/06/17 07/06/17 02:30 02:45 03:00 Temperature Pulse Rate 102 H 102 H 103 H Pulse Rate [ Right Dorsalis Pedis] Respiratory 18 18 18 Rate Blood Pressure 90/53 87/50 89/52 O2 Sat by Pulse 100 Oximetry 07/06/17 07/06/17 07/06/17 03:15 03:30 03:45 Temperature Pulse Rate 104 H 103 H 106 H Pulse Rate [ Right Dorsalis Pedis] Respiratory 18 18 18 Rate Blood Pressure 96/55 95/54 94/53 O2 Sat by Pulse 100 100 100 Oximetry 07/06/17 07/06/17 07/06/17 04:00 04:15 04:30 Temperature 99.6 F Pulse Rate 106 H 109 H 109 H Pulse Rate [ 126 H Right Dorsalis Pedis] Respiratory 18 17 18 Rate Blood Pressure 98/58 96/55 93/56 O2 Sat by Pulse 100 100 Oximetry 07/06/17 07/06/17 07/06/17 04:45 05:00 05:01 Temperature Pulse Rate 109 H 110 H 110 H Pulse Rate [ Right Dorsalis Pedis] Respiratory 18 17 Rate Blood Pressure 92/52 78/53 92/52 O2 Sat by Pulse 100 Oximetry 07/06/17 07/06/17 07/06/17 05:15 05:30 05:45 Temperature Pulse Rate 112 H 111 H 109 H Pulse Rate [ Right Dorsalis Pedis] Respiratory 17 17 18 Rate Blood Pressure 82/53 85/49 85/48 O2 Sat by Pulse 100 Oximetry 07/06/17 07/06/17 07/06/17 06:00 06:15 06:30 Temperature Pulse Rate 111 H 108 H 110 H Pulse Rate [ 126 H Right Dorsalis Pedis] Respiratory 18 18 18 Rate Blood Pressure 78/51 88/52 94/53 O2 Sat by Pulse 100 100 Oximetry 07/06/17 07/06/17 07/06/17 06:45 07:00 07:15 Temperature Pulse Rate 108 H 108 H 108 H Pulse Rate [ Right Dorsalis Pedis] Respiratory 18 18 18 Rate Blood Pressure 100/56 87/56 88/56 O2 Sat by Pulse 100 100 Oximetry 07/06/17 07/06/17 07/06/17 07:30 07:31 07:45 Temperature Pulse Rate 111 H 109 H 110 H Pulse Rate [ Right Dorsalis Pedis] Respiratory 20 17 Rate Blood Pressure 87/61 87/61 100/60 O2 Sat by Pulse 100 100 Oximetry 07/06/17 07/06/17 07/06/17 08:00 08:15 08:30 Temperature Pulse Rate 111 H 110 H 109 H Pulse Rate [ Right Dorsalis Pedis] Respiratory 17 17 17 Rate Blood Pressure 98/60 99/63 93/54 O2 Sat by Pulse 100 Oximetry 07/06/17 07/06/17 07/06/17 08:45 09:00 09:15 Temperature Pulse Rate 112 H 110 H 112 H Pulse Rate [ Right Dorsalis Pedis] Respiratory 16 17 19 Rate Blood Pressure 98/62 110/65 98/59 O2 Sat by Pulse 100 100 Oximetry 07/06/17 07/06/17 07/06/17 12:23 13:22 13:37 Temperature 99.1 F 98.6 F Pulse Rate 115 H 114 H 111 H Pulse Rate [ Right Dorsalis Pedis] Respiratory 20 21 Rate Blood Pressure 123/69 123/75 121/72 O2 Sat by Pulse 100 100 100 Oximetry - Lab 07/06/17 07:28 07/06/17 07:28 Most recent lab results Calcium 5.8 mg/dL (8.4-10.2) L* D 07/06/17 07:28 Phosphorus 3.40 mg/dL (2.5-4.5) 07/06/17 07:28 Magnesium 1.20 mg/dL (1.7-2.3) L 07/06/17 07:28 Urine Creatinine 237.2 mg/dL (0.1-20.0) H 07/05/17 Unknown Urine Sodium 18 mmol/L 07/05/17 Unknown Urine Total Protein 170 mg/dL (5-11.8) H 07/05/17 Unknown
[2017-07-06] MEDS ORDERED: NACL 0.9% 500 ML 500 ML ONE (15:20)
--- NOTE | 2017-07-06 15:24 | Post Operative Note ---
Date of procedure: 07/06/17 (Dictation#[id number]) Pre-op diagnosis: ischemic bowel Post-op diagnosis: same Findings: distended stomach and small bowel. NGT was not in stomach. All remaining bowel was viable. No questionable sections. Procedure: Exploratory laparotomy; washout of abdomen; Abthera placement Anesthesia: ELZA Surgeon: JANINE DICKEY Estimated blood loss: none Pathology: none Condition: stable Disposition: ICU
[2017-07-06] MEDS ORDERED: CALCIUM GLUCONATE 2,000 MG in NACL 0.9% 100 ML IV ONE (15:30)
[2017-07-06] MEDS ORDERED: NACL 0.9% IR ONE (15:33)
--- NOTE | 2017-07-06 15:33 | Progress Note ---
Assessment and Plan Assessment: 1) Severe sepsis: better leukocytosis 12-->42-->56-->28K; etiology: bowel ischemia - gangrene of majority of small bowel and right colon. 2) Peritonitis: secondary to gangrene of majority of small bowel and right colon. Approximately 30 cm of viable small bowel from ligament of treitz, transverse colon and remainder of colon viable. Unclear etiology: ?cocaine ? emboli -S/P Diagnostic laparoscopy, converted to exploratory laparotomy, small bowel resection, right hemicolectomy, temporary closure of abdomen on 07/06 -TTE EF >55 no clots 3) Nausea, vomiting, abdominal pain and diarrhea: due to bowel gangrene -CT - bowels were normal -repeat CT w contrast showed multiple non distended small and large bowel loops ? ileus, no evidence of colitis or enteritis 4) Hypertensive urgency 5) Vaginal bleeding: from fibroids. CT showed uterine fibroids, 2.3 c left ovarian cyst. 6) Right liver lesion ? hemangioma 7) Small pericardial effusion 8) EMMA - worsening 9) Severe anemia: prob from fibroids Recommendations: -continue meropenem and fluconazole for now- D2 -check CHELSEA, ANCA, CRP, C3/C4 -f/u path I will be rounding on Sunday Thanks for consultation Rachel Bryant MD Subjective Date of service: 07/06/17 Principal diagnosis: SIRS Interval history: sedated on the vent Micro: Blood cx 07/03 ngtd Abx: Meropenem 07/05 Fluconazole 07/05 Previous Abx: Zosyn Levaquin Flagyl Vanco Objective - Exam Narrative Exam: Alert intubated on the vent JULIANN, clear OP Neck no LN Lungs CTA sanchez CV tachy Abd soft +surg wound with dressings Ext no edema Skin no rash Neuro sedated - Constitutional Vitals: Vital Signs Temp Pulse Resp BP Pulse Ox 98.6 F 111 H 21 121/72 100 07/06/17 13:37 07/06/17 13:37 07/06/17 13:37 07/06/17 13:37 07/06/17 13:37 Temperature -Last 24 Hours Temperature 98.6 F Temperature 99.1 F Temperature 99.6 F Temperature 99.0 F Temperature 98.8 F Temperature 99.0 F Temperature 99.3 F Temperature 98.0 F - Labs CBC & Chem 7: 07/06/17 07:28 07/06/17 07:28 Labs: Abnormal lab results 07/05/17 07/05/17 07/06/17 Range/Units 22:34 Unknown 05:17 WBC (4.5-11.0) K/mm3 Hgb (10.1-14.3) gm/dl Hct (30.3-42.9) % MCV (79-97) fl MCH (28-32) pg MCHC (30-34) % RDW (13.2-15.2) % POC ABG pH 7.185 L (7.35-7.45) POC ABG pCO2 33.8 L 28.0 L (35-45) POC ABG pO2 193 H (80-105) Chloride (98-107) mmol/L Carbon Dioxide (22-30) mmol/L BUN (7-17) mg/dL Creatinine (0.7-1.2) mg/dL Calcium (8.4-10.2) mg/dL Magnesium (1.7-2.3) mg/dL Transferrin (192-382) mg/dl PTH Intact (15-65) pg/mL Urine Creatinine 237.2 H (0.1-20.0) mg/dL Urine Microalbumin 39.9 H (0.1-34.0) mg/dL Urine Total Protein 170 H (5-11.8) mg/dL Crossmatch 07/06/17 07/06/17 07/06/17 Range/Units 07:28 07:28 07:28 WBC 28.9 H (4.5-11.0) K/mm3 Hgb 7.1 L (10.1-14.3) gm/dl Hct 24.5 L (30.3-42.9) % MCV 66 L (79-97) fl MCH 19 L (28-32) pg MCHC 29 L (30-34) % RDW 38.6 H (13.2-15.2) % POC ABG pH (7.35-7.45) POC ABG pCO2 (35-45) POC ABG pO2 (80-105) Chloride 112.6 H (98-107) mmol/L Carbon Dioxide 15 L (22-30) mmol/L BUN 35 H (7-17) mg/dL Creatinine 4.0 H (0.7-1.2) mg/dL Calcium 5.8 L* D (8.4-10.2) mg/dL Magnesium 1.20 L (1.7-2.3) mg/dL Transferrin 148 L (192-382) mg/dl PTH Intact 285.9 H (15-65) pg/mL Urine Creatinine (0.1-20.0) mg/dL Urine Microalbumin (0.1-34.0) mg/dL Urine Total Protein (5-11.8) mg/dL Crossmatch 07/06/17 Range/Units 10:27 WBC (4.5-11.0) K/mm3 Hgb (10.1-14.3) gm/dl Hct (30.3-42.9) % MCV (79-97) fl MCH (28-32) pg MCHC (30-34) % RDW (13.2-15.2) % POC ABG pH (7.35-7.45) POC ABG pCO2 (35-45) POC ABG pO2 (80-105) Chloride (98-107) mmol/L Carbon Dioxide (22-30) mmol/L BUN (7-17) mg/dL Creatinine (0.7-1.2) mg/dL Calcium (8.4-10.2) mg/dL Magnesium (1.7-2.3) mg/dL Transferrin (192-382) mg/dl PTH Intact (15-65) pg/mL Urine Creatinine (0.1-20.0) mg/dL Urine Microalbumin (0.1-34.0) mg/dL Urine Total Protein (5-11.8) mg/dL Crossmatch See Detail
[2017-07-06] MEDS ORDERED: SODIUM BICARBONATE 75 MEQ in NACL 0.45% 1000 ML 1,000 ML IV SCH (16:00)
--- NOTE | 2017-07-06 18:22 | XRay Report ---
FINAL REPORT EXAM: XR CHEST 1V AP HISTORY: ARTEM Picc TECHNIQUE: Frontal portable examination of the chest PRIORS: 07/05/2017 FINDINGS: Stable position of endotracheal and nasogastric tubes. Endotracheal tube distal tip again at the level of the thoracic inlet. New density in right minor fissure and right CP angle suggestive of small pleural effusion. Increased density left lung base may also be a small to moderate pleural effusion with adjacent atelectasis and/or pneumonitis. IMPRESSION: A new left venous catheter is in place with distal tip near the cavoatrial junction region. New small right pleural effusion Left lower lung opacity obscuring the diaphragm suspicious for small to moderate left pleural effusion with adjacent atelectasis and/or pneumonitis
[2017-07-06] MEDS: MERREM 1,000 MG in NACL 0.9% 100 ML IV SCH (18:25)
[2017-07-06 18:52] LABS: Hepatitis A Antibody IgM Non-Reactive (NonReactive); Hepatitis B Core IgM Non-Reactive (NonReactive); Hepatitis B Surface Antigen Non-Reactive (Negative); Hepatitis C Virus Antibody Non-Reactive (NonReactive)
[2017-07-06] MEDS ORDERED: TPN ADULT 2,400 ML IV SCH (20:00)
--- NOTE | 2017-07-06 22:19 | Operative Report ---
PREOPERATIVE DIAGNOSES: Ischemic bowel, open abdomen. POSTOPERATIVE DIAGNOSES: Ischemic bowel, open abdomen. PROCEDURES: 1. Exploratory laparotomy. 2. Abdominal washout. 3. ABThera placement. ATTENDING PHYSICIAN: Abdi Pérez MD ANESTHESIA: General. ESTIMATED BLOOD LOSS: Minimal. FLUIDS: 700 mL crystalloid. FINDINGS: A normal residual bowel and colon. Rest of the organs were of normal appearance. No blood was found. No active bleeding. No other abnormalities were found. Fluid that was encountered upon entering was normal serous fluid. SPECIMENS: None. IMPLANTS: ABThera. COMPLICATIONS: None. DISPOSITION: Stable, transferred to ICU. INDICATIONS: This is a 42-year-old female who presented with multiple nonspecific symptoms. The patient eventually developed a very high leukocytosis and abdominal pain for which she was taken to the OR for exploration. The patient was found to have ischemic bowel involving most of the small intestine and right colon, appeared to fit within the distribution of the superior mesenteric artery. This was excised. The patient was left in discontinuity and brought back today for washout and ABThera placement. Procedure, risks, benefits were explained to daughter and family. Risks included, but were not limited to infection, bleeding, pain, injury to surrounding structures, possible need for further bowel resection, possible need for further surgeries in the future. Daughter and family understood. Daughter consented to the procedure as she was the oldest adult child. OPERATIVE NOTE: The patient was brought to the operating room and placed in supine position. After adequate general anesthesia was established, the patient was prepped and draped in usual sterile fashion. The patient was already on antibiotics. SCDs were in place. I began by cutting the skin suture. We were able to easily get into the abdominal cavity. Minimal adhesions were encountered. This was gently divided and all the contents were gently . We began by guiding the NG tube into the proper location of stomach and small bowel was dilated. Once it was in the distal stomach, we had very good decompression of the stomach and the small bowel was less distended. Colon was completely viable, as mentioned. The retroperitoneum was without any signs of bleeding or hematoma. I saw no further tissue that needed to be resected. We thoroughly washed out the abdomen and placed the ABThera. We had a good seal. The patient tolerated the procedure well. There were no complications. All counts were correct at the end of the case. I spoke with the daughter afterwards to let her know that the case went well. At this point, our plan is to return on Sunday for reevaluation and possible reanastomosis of the bowel. Consent has already been obtained. If her status changes over the weekend, then we will proceed back to the operating room sooner. JOB# [id number] RICHAR/RUPINDER
--- NOTE | 2017-07-07 05:29 | Consultation ---
CONSULTING PHYSICIAN: Dr. Peterson. REASON FOR CONSULTATION: Severe sepsis, postop respiratory failure. CHIEF COMPLAINT AND HISTORY OF PRESENT ILLNESS: As follows, the patient is a 42-year-old -[place] female with past medical history significant only for hypertension, but also history of drug abuse reportedly, also uses cocaine, who came into the emergency room complaining of nausea, vomiting, vaginal bleeding, and her symptoms have started the day prior to admission. She was hypothermic, but at the same time, she was hypertensive, systolic blood pressure was over 200. She was evaluated in the emergency room, later found to also have a history of alcohol abuse. After the evaluation, she was diagnosed with severe sepsis with hypothermia, peritoneal irritation, with a plan to rule out an aortic dissection. She was started on a Cardene drip reportedly secondary to the elevated blood pressure. She was weaned off the Cardene and was downgraded and so, she never came into the intensive care unit. She was managed on the medical floor initially, she did not have a significant leukocytosis. On the day of the consult, the patient was found to have significant elevation in her white cell count with leukocytosis of 42,800. She was hemodynamically stable otherwise. She developed very rapidly also an acute kidney injury. The only possible source of infection was her abdomen, which was described as being soft with diffused tenderness. She did have some voluntary guarding without rebound or rigidity initially. 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 Postop because of the extensive surgery that was done and the fact that repeat trips to the OR were planned. We were asked to manage her, she was left on the mechanical ventilator. When I stopped by to see her, she remained on the mechanical ventilator. She was responsive. She did complain of some generalized pain, some of which was chronic. She denied any chest pain, she denied any palpitations. Now with regards to tobacco use/abuse history, she had a 10+ pack year tobacco smoking history. That really is much of the history of presentation as I have. Past medical history was therefore hypertension. She also had a history of substance abuse including alcohol and possibly cocaine. PAST SURGICAL HISTORY: She had had some sort of surgical drainage to the armpit area. MEDICATIONS: She was on at the time I stopped by to see her were reviewed. Pertinent medications include the following, she had been started on TPN, Pepcid 200 mg IV daily, she was on Diflucan 200 mg IV q.24 hours, she was on p.r.n. alprazolam. She was on fentanyl drip, I believe that 1 mcg per kilogram per hour. She was on meropenem 1 g IV q.24 hours scheduled. She also had Propofol drip 5 mcg per kilogram per minute. She was also on the mechanical ventilator of course and on supplemental oxygen. ALLERGIES: No known drug allergies. DIET: Well-built lady, denies significant weight loss or gain in the preceding few weeks to months. FAMILY AND SOCIAL HISTORY: Apparently lives in the community. She does have 10+ pack year tobacco smoking history. She was described as an almost daily drinker. There is also a history of illicit drug use, cocaine. Family history is noncontributory as she says. REVIEW OF SYSTEMS: Little difficult to obtain secondary to her medical status at the time I saw her; however, she denied any headache. She denied any new onset focal weakness. She denied any current fevers or chills. She denied any ear pain. She denied any chest pain. She denied palpitations. She denied polydipsia or polyuria prior coming into the hospital. She had complained of vaginal bleeding. She denied any dysuria prior to coming into the hospital. Complete 14-system review of systems were obtained. Pertinent positives and are negatives as in the body of the history above, otherwise, they are noncontributory. PHYSICAL EXAMINATION: On presentation in the emergency room, she was hypothermic, temperature 91.6 degrees Fahrenheit, pulse of 57, respiratory rate of 20, blood pressure 218/103, O2 sats were 100%, inspired O2 concentration was not recorded. VITAL SIGNS: At the time, I have seen, her vital signs, she was afebrile, she says the most recent temperature was 98.6, with a pulse of 111, blood pressure 121/72. GENERAL: She is a well-built -[place] female, intubated, normocephalic, atraumatic, responding appropriately, in [id number] distress, majority of which was probably non-respiratory. She was not with significant increase work of breathing. HEAD, EYES, EARS, NOSE, AND THROAT: She was anicteric, no significant conjunctival erythema. Endotracheal tube was in place, total at the lips is around 23 cm. No thyromegaly. No gross jugular venous distension. Grossly, no palpable lymph nodes in the supraclavicular or submandibular lymph node chains. LUNGS: Auscultation of the lung whitehead, bibasilar inspiratory rhonchi, otherwise clear, no wheezing. CARDIOVASCULAR: Heart sounds 1 and 2 are heard at the time of my evaluation, regular rate and rhythm. No rubs or murmurs. ABDOMEN: Soft, full, bowel sounds are positive, but hypoactive. She had a clean dressing over the midline incision scar. It was tender, diffusely without rebound. No palpable hepatosplenomegaly grossly. EXTREMITIES: Without overt digital clubbing, cyanosis, or pedal edema. Dorsalis pedis pulses are palpable bilaterally. NEUROLOGIC: Pupils were equal, round about 4 mm reactive to light. Extraocular muscles and movements were intact. She moved all her four extremities spontaneously. LABORATORY DATA: From my review as follows, admission white cell count 12,900, with hemoglobin of 5.6, hematocrit of 22.3, platelet count of 125,000. No significant band forms were reported. INR was 0.89. Venous blood gas 7.37 pH. Serum sodium was 141, potassium 3.0, chloride 101, bicarb 22, BUN 7, creatinine 0.6, glucose was 188, lactic acid level was 2.50. Liver function tests were essentially within normal limits. Her serum iron was low at 12. Urinalysis showed a large amount of blood, moderate leukocyte esterase, 18 white cells per high-power field. Laboratory data from today showed white cell count was down to 28,900, hemoglobin 7.1, hematocrit 24.5, platelet count 331,000. Arterial blood gas showed a pH of 7.35, pCO2 of 28, pO2 of 193, and FiO2 of 50, that was I believe on assist control tidal volume 500, rate of 18, PEEP of 5. Serum sodium today is 143, potassium is 4.2, chloride 113, bicarb 15, BUN 35, creatinine 5.0, glucose was 85. Lactic acid level was 0.9, within normal limits. Calcium was low at 5.8. Magnesium was low at 1.2. Urine test was negative. Microbiology studies, no growth to date. Blood culture was negative. Urine culture was negative. Tracheal aspirates so far no growth to date. Radiographic studies have been reviewed. Chest x-ray from today was reviewed, essentially she has an endotracheal tube with the tip at the level of the clavicular head, slight haziness to the lung field suggest a possible linear effusion perhaps small more likely on the right. She has a left upper extremity PICC line likely in the right atrium. No gross pneumothorax. No gross bony fracture. X-ray from admission really also showed the same amount of haziness and it may be related to self-tissue shadows, the costophrenic angles were clean. She does have borderline cardiomegaly. A CT of the abdomen and pelvis was done, apparently the initial CT scan done at admission was a noncontrast CT scan and it showed a uterine fibroid really did not show any intraabdominal changes, the repeat CT abdomen and pelvis, which was done on 07/04/2017, with contrast showed the multiple nondistended fluid filled lips of the colon and bowel suggesting a nonobstructive generalized ileus. ASSESSMENT: 1. Postoperative respiratory failure, now on mechanical ventilatory support less than 96 hours. 2. Sepsis syndrome. 3. Ischemic bowel, possibly secondary to embolic event, but may also be related to drug abuse, cocaine use with possibility of arterial spasm. 4. Acute kidney injury. 5. Leukocytosis. 6. Uncontrolled hypertension. 7. Severe anemia. 8. Drug abuse. 9. Alcohol abuse. PLAN: We will keep her on full mechanical ventilatory support, I will make no changes at this point in light of the pH, which is really close to the acidotic range. We will continue to address ventilatory associated pneumonia bundle aspiration and precautions will be maintained amongst others. Oxygen will be weaned to keep saturations greater than or equal to about 90%. She was currently on 50% FiO2 with a pO2 of 193, we will drop that. We will continue empiric broad-spectrum antibiotic therapy; however, infectious disease consultation has been placed appropriately. I will defer to them in terms of the anti-infective therapy. Nephrology has also been consulted and I will defer to them in terms of managing the acute kidney injury. We did order magnesium and phosphorus levels and those will be corrected as necessary. The patient is based on the inputs and outputs of 65 mL was recorded, oliguric at this point. Hopefully, she will respond to volume infusion. Vasopressors will be started as necessary if main arterial pressures fall below 60 mmHg despite volume resuscitation. She is appropriately on gastrointestinal prophylaxis. Deep venous thrombosis prophylaxis in the form of sequential compression devices. Flu and pneumonia vaccination will be addressed per protocol. Thank you very much for the consult Dr. Peterson. We will follow along to make further recommendations as picture progresses/becomes clearer. She is critically ill on life-sustained interventions including mechanical ventilatory support at high risk for further deterioration including especially also with the kidney injury. She is stable enough to be taken back into the OR today and we will follow along postoperatively again. At this point, I have spent about 35 to 40 minutes of critical care time without overlap and scrutiny any procedural time that may be necessary. JOB# [id number] LOYDA/RUPINDER JAMES
[2017-07-07 06:21] LABS: Hemoglobin 8.8 gm/dl (10.1-14.3); Mean Corpuscular HGB Conc 31 % (30-34); Mean Corpuscular Volume 72 fl (79-97); Platelet Count 350 K/mm3 (140-440)
[2017-07-07 06:31] LABS: Mean Corpuscular Hemoglobin 23 pg (28-32)
[2017-07-07 06:32] LABS: Red Cell Distribution Width 33.3 % (13.2-15.2)
[2017-07-07 09:24] LABS: Calcium 7.6 mg/dL (8.4-10.2)
[2017-07-07] MEDS: DIFLUCAN 200 MG/100 ML BAG IV SCH (10:30)
[2017-07-07] MEDS: PEPCID IV SCH (10:30)
--- NOTE | 2017-07-07 11:28 | Progress Note ---
Assessment and Plan - Patient Problems (1) Ischemia, bowel Current Visit: Yes Status: Acute Plan to address problem: Pt stable. Wound vac working well. Tentative plan for return to OR on Sunday. If patient decompensates and cause felt to be abdominal, we are prepared to take her back sooner. Discussed with family. Consent on chart. Will continue to follow. Subjective Date of service: 07/07/17 Patient Reports: Positive: other (nurse reports no issue with wound vac) Objective Vital Signs - 12hr 07/06/17 07/06/17 07/06/17 23:30 23:32 23:45 Temperature Pulse Rate 113 H 104 H 118 H Respiratory 17 19 Rate Blood Pressure 134/88 143/77 121/85 O2 Sat by Pulse 100 100 100 Oximetry 07/07/17 07/07/17 07/07/17 00:00 00:15 00:30 Temperature Pulse Rate 108 H 106 H 107 H Respiratory 16 18 18 Rate Blood Pressure 136/83 145/91 148/86 O2 Sat by Pulse 100 100 100 Oximetry 07/07/17 07/07/17 07/07/17 00:45 01:00 01:15 Temperature Pulse Rate 105 H 102 H 102 H Respiratory 18 18 18 Rate Blood Pressure 137/80 134/77 126/77 O2 Sat by Pulse 100 100 100 Oximetry 07/07/17 07/07/17 07/07/17 01:30 01:45 02:00 Temperature Pulse Rate 100 H 103 H 101 H Respiratory 18 15 17 Rate Blood Pressure 136/80 142/84 145/82 O2 Sat by Pulse 100 100 100 Oximetry 07/07/17 07/07/17 07/07/17 02:15 02:30 02:45 Temperature Pulse Rate 100 H 98 H 101 H Respiratory 18 18 18 Rate Blood Pressure 154/82 136/77 140/80 O2 Sat by Pulse 100 100 100 Oximetry 07/07/17 07/07/17 07/07/17 03:00 03:15 03:23 Temperature Pulse Rate 99 H 98 H 99 H Respiratory 18 17 Rate Blood Pressure 140/77 147/79 147/79 O2 Sat by Pulse 100 100 100 Oximetry 07/07/17 07/07/17 07/07/17 03:30 03:45 04:00 Temperature Pulse Rate 99 H 97 H 106 H Respiratory 18 18 18 Rate Blood Pressure 137/79 131/77 156/86 O2 Sat by Pulse 100 100 100 Oximetry 07/07/17 07/07/17 07/07/17 04:15 04:30 04:45 Temperature Pulse Rate 104 H 100 H 95 H Respiratory 16 18 18 Rate Blood Pressure 141/80 144/85 137/81 O2 Sat by Pulse 100 100 100 Oximetry 07/07/17 07/07/17 07/07/17 05:00 05:15 05:30 Temperature Pulse Rate 100 H 95 H 94 H Respiratory 17 18 18 Rate Blood Pressure 154/89 162/81 155/80 O2 Sat by Pulse 100 100 100 Oximetry 07/07/17 07/07/17 07/07/17 05:45 06:02 08:00 Temperature 98.2 F Pulse Rate 105 H 101 H 99 H Respiratory 18 18 Rate Blood Pressure 150/87 144/82 O2 Sat by Pulse 100 100 100 Oximetry - General physical appearance no distress, other (sedated) - Abdomen soft, not distended, other (wound vac in place. Serous drainage. No leaks) - Labs 07/07/17 05:59 07/07/17 05:59 Diabetes panel 07/07/17 Range/Units 05:59 Sodium 141 (137-145) mmol/L Potassium 4.1 (3.6-5.0) mmol/L Chloride 107.0 (98-107) mmol/L Carbon Dioxide 17 L (22-30) mmol/L BUN 46 H (7-17) mg/dL Creatinine 4.8 H (0.7-1.2) mg/dL Glucose 103 H (65-100) mg/dL Calcium 7.6 L D (8.4-10.2) mg/dL Calcium panel 07/07/17 07/07/17 Range/Units 05:59 05:59 Calcium 7.6 L D (8.4-10.2) mg/dL Phosphorus 4.20 D (2.5-4.5) mg/dL Pituitary panel 07/07/17 Range/Units 05:59 Sodium 141 (137-145) mmol/L Potassium 4.1 (3.6-5.0) mmol/L Chloride 107.0 (98-107) mmol/L Carbon Dioxide 17 L (22-30) mmol/L BUN 46 H (7-17) mg/dL Creatinine 4.8 H (0.7-1.2) mg/dL Glucose 103 H (65-100) mg/dL Calcium 7.6 L D (8.4-10.2) mg/dL Adrenal panel 07/07/17 Range/Units 05:59 Sodium 141 (137-145) mmol/L Potassium 4.1 (3.6-5.0) mmol/L Chloride 107.0 (98-107) mmol/L Carbon Dioxide 17 L (22-30) mmol/L BUN 46 H (7-17) mg/dL Creatinine 4.8 H (0.7-1.2) mg/dL Glucose 103 H (65-100) mg/dL Calcium 7.6 L D (8.4-10.2) mg/dL
--- NOTE | 2017-07-07 11:31 | XRay Report ---
AP CHEST :07/07/17 10:47 CLINICAL: Intubated.Congestion. COMPARISON:Previous day. FINDINGS: The endotracheal tube is in satisfactory position. A feeding tube is satisfactory. The left PICC line tip is at the cavoatrial junction. Stable and and central vascular congestion. The lungs are relatively clear. No pulmonary consolidation. No pneumothorax. IMPRESSION: No change.Mild CHF.
[2017-07-07] MEDS: fentaNYL DRIP Premix 2,000 MCG/100 ML BAG IV SCH (12:03)
--- NOTE | 2017-07-07 12:07 | Progress Note ---
Assessment and Plan Assessment and plan: Patient is a 42-year-old female with no significant past medical history significant for hypertension which she takes lisinopril 10 mg daily. She presents to the hospital complaining of nausea, vomiting vaginal bleeding is likely secondary. Which is normally very heavy. She reports the symptoms started about a day prior to admission was accompanied by diffuse abdominal pain to return and intensity of doing improving. On presentation to the hospital she was noted to have a core temperature of 91.6 with systolic blood pressure off well over 200. She denied any chest pain, but appeared generally uncomfortable. She denied any dysuria or increased frequency. She was unable to quantify the diarrhea. She reports alcohol use but this is limited to the weekend she states that this weekend she drank 2 bottles of wine. chimes in that once in a while she drinks them mixed with beer. 1. Severe Sepsis with worsening Leukocytosis 2. EMMA secondary to vasomotor nephropathy with underlying ATN 3. Peritoneal irritation r/o aortic Dissection 4. Severe Anemia 5. Ischemic/Gangrenous Bowel 6. Worsening luekocytosis 7. Symptomatic Anemia 8. Hypertensive urgency-resolved 9. Menorraghia secondary to Fibroids 10. Etoh use disorder 11. Right liver lesion ?Hemangioma 12. Multiple electrolyte abnormalities 13. Hypothermia-Resolved 14. Cocain abuse per hx. Not mentioned on admission. Only alcohol which was minimized. Plan S/P Resection of ischemia/Gangrenous bowel postop day 3 Question embolic versus cocaine induced. ID concerned about acute enterocolitis considering order of event with onset following [employer] [place] [employer]. Director Of Leadership Development input noted Hold valsartan Continue antibiotics per ID Discussed with surgery and also with ID Excessive fluids may be prohibitive considering Elevated BP and Blood product need on admission was. [place] protocol Counselling for ETOH when more stable Assistant Buyer surgical input noted Pain control Pelvic ultrasound NOTED. DVT/GI prophy No family at bedside. The high probability of a clinically significant, sudden or life threatening deterioration of the [GI, renal] system(s) required my full and direct attention , intervention and personal management. The aggregate critical care time was [35 ] minutes. This time is in addition to time spent performing reported procedures but includes the following: [X] Data Review and interpretation [X] Patient assessment and monitoring of vital signs [X] Documentation [X] Medication orders and management - Patient Problems (1) Severe sepsis Current Visit: Yes Status: Acute (2) Alcohol abuse Current Visit: Yes Status: Acute (3) Hypertensive urgency, malignant Current Visit: Yes Status: Acute (4) Anemia requiring transfusions Current Visit: Yes Status: Acute (5) Dysfunctional uterine bleeding Current Visit: Yes Status: Acute (6) Fibroids Current Visit: Yes Status: Acute (7) Hypothermia Current Visit: Yes Status: Acute History Interval history: Patient is seen today for: Abdominal pain, sepsis Seen and examined at bedside; 24hour events reviewed; nursing staff ; status post exploratory lap with resection of gangrenous bowel. Awakens to verbal stimuli. Remains on full ventilatory support. Hospitalist Physical - Physical exam Narrative exam: VITAL SIGNS: Reviewed. GENERAL: The patient with full mechanical ventilatory support.Vital signs as documented. HEAD: No signs of head trauma. EYES: Pupils are equal. EARS: Hearing grossly intact. MOUTH: ET tube in place NECK: No adenopathy, no JVD. CHEST: Chest with clear breath sounds bilaterally. No wheezes, rales, or rhonchi. CARDIAC: [place]. S1 and S2, without murmurs, gallops, or rubs. VASCULAR: No Edema. Peripheral pulses normal and equal in all extremities. ABDOMEN: Dressing in place open wound. MUSCULOSKELETAL: Extremities without clubbing, cyanosis or edema. NEUROLOGIC EXAM: Awakens to verbal stimuli full exam unable to obtain as patient lives mechanical ventilator. PSYCHIATRIC: Unable to assess SKIN: Open abdominal wound dressing in place - Constitutional Vitals: Temp Pulse Resp BP Pulse Ox 98.2 F 99 H 18 144/82 100 07/07/17 08:00 07/07/17 08:00 07/07/17 06:02 07/07/17 08:00 07/07/17 08:00 Results - Labs CBC & Chem 7: 07/08/17 04:22 07/08/17 04:22 Labs: Laboratory Last Values WBC 24.9 K/mm3 (4.5-11.0) H 07/07/17 05:59 RBC 3.90 M/mm3 (3.65-5.03) 07/07/17 05:59 Hgb 8.8 gm/dl (10.1-14.3) L 07/07/17 05:59 Hct 28.0 % (30.3-42.9) L 07/07/17 05:59 MCV 72 fl (79-97) L 07/07/17 05:59 MCH 23 pg (28-32) L 07/07/17 05:59 MCHC 31 % (30-34) 07/07/17 05:59 RDW 33.3 % (13.2-15.2) H 07/07/17 05:59 Plt Count 350 K/mm3 (140-440) 07/07/17 05:59 Lymph % (Auto) Recreation Instructor 07/03/17 05:28 [place] % (Auto) Recreation Instructor 07/03/17 05:28 Eos % (Auto) Recreation Instructor 07/03/17 05:28 Baso % (Auto) Recreation Instructor 07/03/17 05:28 Lymph # Recreation Instructor 07/03/17 05:28 [place] # Recreation Instructor 07/03/17 05:28 Eos # Recreation Instructor 07/03/17 05:28 Baso # Recreation Instructor 07/03/17 05:28 Add Manual Diff Complete 07/05/17 08:21 Total Counted 200 07/05/17 08:21 Seg Neutrophils % Recreation Instructor 07/05/17 08:21 Seg Neuts % (Manual) 96.5 % (40.0-70.0) H 07/05/17 08:21 Band Neutrophils % 0 % 07/05/17 08:21 Lymphocytes % (Manual) 1.0 % (13.4-35.0) L 07/05/17 08:21 Reactive Lymphs % (Man) 0 % 07/05/17 08:21 Monocytes % (Manual) 2.5 % (0.0-7.3) 07/05/17 08:21 Eosinophils % (Manual) 0 % (0.0-4.3) 07/05/17 08:21 Basophils % (Manual) 0 % (0.0-1.8) 07/05/17 08:21 Metamyelocytes % 0 % 07/05/17 08:21 Myelocytes % 0 % 07/05/17 08:21 Promyelocytes % 0 % 07/05/17 08:21 Blast Cells % 0 % 07/05/17 08:21 Nucleated RBC % 0.5 % (0.0-0.9) 07/05/17 08:21 Seg Neutrophils # Recreation Instructor 07/03/17 05:28 Seg Neutrophils # Man 54.3 K/mm3 (1.8-7.7) H 07/05/17 08:21 Band Neutrophils # 0.0 K/mm3 07/05/17 08:21 Lymphocytes # (Manual) 0.6 K/mm3 (1.2-5.4) L 07/05/17 08:21 Abs React Lymphs (Man) 0.0 K/mm3 07/05/17 08:21 Monocytes # (Manual) 1.4 K/mm3 (0.0-0.8) H 07/05/17 08:21 Eosinophils # (Manual) 0.0 K/mm3 (0.0-0.4) 07/05/17 08:21 Basophils # (Manual) 0.0 K/mm3 (0.0-0.1) 07/05/17 08:21 Metamyelocytes # 0.0 K/mm3 07/05/17 08:21 Myelocytes # 0.0 K/mm3 07/05/17 08:21 Promyelocytes # 0.0 K/mm3 07/05/17 08:21 Blast Cells # 0.0 K/mm3 07/05/17 08:21 Pathologist Review 07/04/17 04:39 WBC Morphology Not Reportable 07/05/17 08:21 Hypersegmented Neuts Rare 07/05/17 08:21 Hyposegmented Neuts Not Reportable 07/05/17 08:21 Hypogranular Neuts Not Reportable 07/05/17 08:21 Smudge Cells Not Reportable 07/05/17 08:21 Toxic Granulation Not Reportable 07/05/17 08:21 Toxic Vacuolation Not Reportable 07/05/17 08:21 Dohle Bodies Not Reportable 07/05/17 08:21 Pelger-Huet Anomaly Not Reportable 07/05/17 08:21 Irma Rods Not Reportable 07/05/17 08:21 Platelet Estimate Cons 07/05/17 08:21 Clumped Platelets Not Reportable 07/05/17 08:21 Plt Clumps, EDTA Not Reportable 07/05/17 08:21 Large Platelets Few 07/05/17 08:21 Giant Platelets Not Reportable 07/05/17 08:21 Platelet Satelliting Not Reportable 07/05/17 08:21 Plt Morphology Comment Not Reportable 07/05/17 08:21 RBC Morphology Not Reportable 07/05/17 08:21 Dimorphic RBCs Not Reportable 07/05/17 08:21 Polychromasia Few 07/05/17 08:21 Hypochromasia 2+ 07/05/17 08:21 Poikilocytosis 1+ 07/05/17 08:21 Anisocytosis 3+ 07/05/17 08:21 Microcytosis 1+ 07/05/17 08:21 Macrocytosis Not Reportable 07/05/17 08:21 Spherocytes Not Reportable 07/05/17 08:21 Pappenheimer Bodies Not Reportable 07/05/17 08:21 Sickle Cells Not Reportable 07/05/17 08:21 Target Cells Rare 07/05/17 08:21 Tear Drop Cells Few 07/05/17 08:21 Ovalocytes Few 07/05/17 08:21 Helmet Cells Not Reportable 07/05/17 08:21 Barber-Joffre Bodies Not Reportable 07/05/17 08:21 [place] Rings Not Reportable 07/05/17 08:21 Jamila Cells Not Reportable 07/05/17 08:21 Bite Cells Not Reportable 07/05/17 08:21 Crenated Cell Not Reportable 07/05/17 08:21 Elliptocytes Not Reportable 07/05/17 08:21 Acanthocytes (Spur) Not Reportable 07/05/17 08:21 Rouleaux Not Reportable 07/05/17 08:21 Hemoglobin C Crystals Not Reportable 07/05/17 08:21 Schistocytes Rare 07/05/17 08:21 Malaria parasites Not Reportable 07/05/17 08:21 Roberto Bodies Not Reportable 07/05/17 08:21 Haptoglobin 204 mg/dL (43-212) 07/03/17 09:31 Hem Pathologist Commnt No 07/05/17 08:21 PT 12.5 Sec. (12.2-14.9) 07/03/17 06:19 INR 0.89 (0.87-1.13) 07/03/17 06:19 APTT 24.6 Sec. (24.2-36.6) 07/03/17 09:31 Fibrinogen 350 mg/dl (211-480) 07/03/17 09:31 POC ABG pH 7.354 (7.35-7.45) 07/07/17 04:18 POC ABG pCO2 27.5 (35-45) L 07/07/17 04:18 POC ABG pO2 61 (80-105) L 07/07/17 04:18 POC ABG HCO3 15.3 07/07/17 04:18 POC ABG Total CO2 16 07/07/17 04:18 POC ABG O2 Sat 90 07/07/17 04:18 POC ABG Base Excess -10 07/07/17 04:18 VBG pH 7.372 (7.320-7.420) 07/03/17 06:19 FiO2 45 % 07/07/17 04:18 Sodium 141 mmol/L (137-145) 07/07/17 05:59 Potassium 4.1 mmol/L (3.6-5.0) 07/07/17 05:59 Chloride 107.0 mmol/L (98-107) 07/07/17 05:59 Carbon Dioxide 17 mmol/L (22-30) L 07/07/17 05:59 Anion Gap 21 mmol/L 07/07/17 05:59 BUN 46 mg/dL (7-17) H 07/07/17 05:59 Creatinine 4.8 mg/dL (0.7-1.2) H 07/07/17 05:59 Estimated GFR 12 ml/min 07/07/17 05:59 BUN/Creatinine Ratio 10 % 07/07/17 05:59 Glucose 103 mg/dL (65-100) H 07/07/17 05:59 POC Glucose 124 (70-105) H 07/04/17 17:11 Lactic Acid 0.90 mmol/L (0.7-2.0) 07/06/17 07:28 Calcium 7.6 mg/dL (8.4-10.2) L D 07/07/17 05:59 Phosphorus 4.20 mg/dL (2.5-4.5) D 07/07/17 05:59 Magnesium 2.50 mg/dL (1.7-2.3) H 07/07/17 05:59 Iron 12 ug/dL (37-170) L 07/03/17 09:31 TIBC 534 mcg/dL (250-450) H 07/03/17 09:31 Transferrin 148 mg/dl (192-382) L 07/06/17 07:28 Ferritin 79.1 ng/mL (13.0-400.0) 07/06/17 07:28 Total Bilirubin 0.40 mg/dL (0.1-1.2) 07/03/17 05:28 AST 17 units/L (5-40) 07/03/17 05:28 ALT 10 units/L (7-56) 07/03/17 05:28 Alkaline Phosphatase 74 units/L (35-129) 07/03/17 05:28 C-Reactive Protein 26.20 mg/dL (0.00-1.30) H 07/06/17 18:08 Total Protein 7.5 g/dL (6.3-8.2) 07/03/17 05:28 Albumin 4.5 g/dL (3.9-5) 07/03/17 05:28 Albumin/Globulin Ratio 1.5 % 07/03/17 05:28 Triglycerides 103 mg/dL (2-149) 07/05/17 22:04 Lipase 18 units/L (13-60) 07/03/17 05:28 TSH 0.561 mlU/mL (0.270-4.200) 07/04/17 14:38 HCG, Qual Negative (Negative) 07/03/17 06:19 HCG, Quant < 2 mIU/mL (0-4) 07/05/17 15:50 PTH Intact 285.9 pg/mL (15-65) H 07/06/17 07:28 Urine Color Yellow (Yellow) 07/05/17 Unknown Urine Turbidity Clear (Clear) 07/05/17 Unknown Urine pH 5.0 (5.0-7.0) 07/05/17 Unknown Ur Specific [place] 1.021 (1.003-1.030) 07/05/17 Unknown Urine Protein 100 mg/dl mg/dL (Negative) 07/05/17 Unknown Urine Glucose (UA) 50 mg/dL (Negative) 07/05/17 Unknown Urine Ketones Tr mg/dL (Negative) 07/05/17 Unknown Urine Blood Sm (Negative) 07/05/17 Unknown Urine Nitrite Neg (Negative) 07/05/17 Unknown Urine Bilirubin Neg (Negative) 07/05/17 Unknown Urine Urobilinogen < 2.0 mg/dL (<2.0) 07/05/17 Unknown Ur Leukocyte Esterase Tr (Negative) 07/05/17 Unknown Urine WBC (Auto) < 1.0 /HPF (0.0-6.0) 07/05/17 Unknown Urine RBC (Auto) 10.0 /HPF (0.0-6.0) 07/05/17 Unknown U Epithel Cells (Auto) 9.0 /HPF (0-13.0) 07/05/17 Unknown Urine Bacteria (Auto) 2+ /HPF (Negative) 07/05/17 Unknown Urine Mucus Few /HPF 07/03/17 Unknown Urine Eosinophils None seen (None Seen) 07/05/17 Unknown Urine Creatinine 237.2 mg/dL (0.1-20.0) H 07/05/17 Unknown Urine Microalbumin 39.9 mg/dL (0.1-34.0) H 07/05/17 Unknown Microalb/Creat Ratio 168.2 ug/mg 07/05/17 Unknown Urine Sodium 18 mmol/L 07/05/17 Unknown Urine Total Protein 170 mg/dL (5-11.8) H 07/05/17 Unknown Hepatitis A IgM Ab Non-reactive (NonReactive) 07/06/17 18:07 Hep Bs Antigen Non-reactive (Negative) 07/06/17 18:07 Hep B Core IgM Ab Non-reactive (NonReactive) 07/06/17 18:07 Hepatitis C Antibody Non-reactive (NonReactive) 07/06/17 18:07 HIV 1&2 Antibody Rapid Non react (Non React) 07/06/17 18:09 HIV P24 Antigen Non react (Non React) 07/06/17 18:09 Blood Type O POSITIVE 07/06/17 10:27 Antibody Screen Negative 07/06/17 10:27 Crossmatch See Detail 07/06/17 10:27 - Imaging and Cardiology Chest x-ray: image reviewed (no acute pathology)
[2017-07-07] MEDS: MERREM 1,000 MG in NACL 0.9% 100 ML IV SCH (12:22)
--- NOTE | 2017-07-07 14:16 | Progress Note ---
Assessment and Plan Severe Sepsis due to Peritonitis: Questionable Liver Hemangioma: ID consulted, on Abx Urine culture showed 10-100,000 mixed culture >2, probably contamination Bowel ischemia with gangrene. s/p Surgery by GS. Hypoxic respiratory failure: -Intubated on Vent -Per ICU Acute Kidney Injury secondary to ATN High Anion Gap Metabolic Acidosis: Hypocalcemia: Cr worsening. Making some urine though. Bicarb drip not running, will order D5W with 150 meq of HCO3 at 75 cc/hr. CXR mildly congested so will keep close eye on volume status while on IVFs Replace Ca Echo on 07/03/17 showed LVEF 60-65% No hydronephrosis seen on CT ABD/Pelvis IV contrast on 07/04/17 Lisinopril already stopped Obtain daily weight Strict intake and output Reddy Catheter: No Anemia: Vaginal Bleeding: Left simple ovarian cyst: Transfuse PRN per primary Alcohol Use: CIWA protocol Plan d/w bedside supervisor composing room. Aaron Leos MD [phone] Subjective Date of service: 07/07/17 Principal diagnosis: SIRS Interval history: Remains intubated on Vent. Making sluggish urine. Objective - Exam Narrative Exam: General appearance: Intubated EENT: ATNC Neck: Present: neck supple Respiratory: Coarse BS BL Heart: tachycardia, S1S2 Gastrointestinal: Soft, ND Integumentary: warm and dry Neurologic: Intubated on vent Musculoskeletal: Present: other (no edema to both lower extremities) Psychiatric: Intubated - Vital Signs Vital signs: Vital Signs - 12hr 07/07/17 07/07/17 07/07/17 02:30 02:45 03:00 Temperature Pulse Rate 98 H 101 H 99 H Respiratory 18 18 18 Rate Blood Pressure 136/77 140/80 140/77 O2 Sat by Pulse 100 100 100 Oximetry 07/07/17 07/07/17 07/07/17 03:15 03:23 03:30 Temperature Pulse Rate 98 H 99 H 99 H Respiratory 17 18 Rate Blood Pressure 147/79 147/79 137/79 O2 Sat by Pulse 100 100 100 Oximetry 07/07/17 07/07/17 07/07/17 03:45 04:00 04:15 Temperature Pulse Rate 97 H 106 H 104 H Respiratory 18 18 16 Rate Blood Pressure 131/77 156/86 141/80 O2 Sat by Pulse 100 100 100 Oximetry 07/07/17 07/07/17 07/07/17 04:30 04:45 05:00 Temperature Pulse Rate 100 H 95 H 100 H Respiratory 18 18 17 Rate Blood Pressure 144/85 137/81 154/89 O2 Sat by Pulse 100 100 100 Oximetry 07/07/17 07/07/17 07/07/17 05:15 05:30 05:45 Temperature Pulse Rate 95 H 94 H 105 H Respiratory 18 18 18 Rate Blood Pressure 162/81 155/80 150/87 O2 Sat by Pulse 100 100 100 Oximetry 07/07/17 07/07/17 07/07/17 06:02 08:00 10:18 Temperature 98.2 F 98.5 F Pulse Rate 101 H 99 H Respiratory 18 Rate Blood Pressure 144/82 O2 Sat by Pulse 100 100 Oximetry 07/07/17 13:20 Temperature Pulse Rate 97 H Respiratory Rate Blood Pressure 132/81 O2 Sat by Pulse 100 Oximetry - Lab 07/07/17 05:59 07/07/17 05:59 Most recent lab results Calcium 7.6 mg/dL (8.4-10.2) L D 07/07/17 05:59 Phosphorus 4.20 mg/dL (2.5-4.5) D 07/07/17 05:59 Magnesium 2.50 mg/dL (1.7-2.3) H 07/07/17 05:59 Urine Creatinine 237.2 mg/dL (0.1-20.0) H 07/05/17 Unknown Urine Sodium 18 mmol/L 07/05/17 Unknown Urine Total Protein 170 mg/dL (5-11.8) H 07/05/17 Unknown
--- NOTE | 2017-07-07 16:14 | Operative Report ---
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 Approximately 30 cm of viable small bowel from ligament of treitz, transverse colon and remainder of colon viable. Procedure: Diagnostic laparoscopy, converted to exploratory laparotomy, small bowel resection, right hemicolectomy, temporary closure of abdomen. Anesthesia: OSITOA Surgeon: HITESH NORTH Hydroelectric Component Machinist: JANINE DICKEY Estimated blood loss: 50-100ml Pathology: list (small bowel and right colon) Specimen disposition: to lab Condition: other (guarded) Disposition: PACU (to ICU from PACU) HPI and indication: 42 yo F with hx of HTN , noncompliance presented to hospital with acute onset abdominal pain, n/v, diarrhea. ON HD 1 her WBC elevated to the 40s from 12. CT A/P showed ileus vs enterocolitis. She wa sobserved for 24 hours but her abdominal pain worsened and exam was concerning for peritonitis and surgical abdomen. She was consented for dx laparoscopy, possible open, possible bowel resection, possible ostomy. All risks, benefits, alternatives to surgery were discussed and questions answered. Procedure in detail: The patient was identified in the preoperative area and taken back to the OR and placed on the OR table in supine position. After anesthesia was induced, a hamilton catheter was sterilely placed by the circulating nurse and the patient positioned in low lithotomy position. The abdomen was prepped and draped in the usual sterile fashion and a time-out performed. A 5 mm incision was made above the umbilicus through which a veress needle was inserted. The veress position was confirmed using the saline drop test and the abdomen insufflated to 15 mmhg. The veress needle was removed and a 5mm optiview trocar was inserted through this incision. Upon inspection of the abdomen, it appeared that the bowel was inadvertently entered and so the decision was made to convert to an exploratory laparotomy. A midline incision was carried out from the trocar to the subxyphoid region using a 10 blade and dissection carried out through the subcutaneous tissue to the fascia using bovie electrocautery. The fascia was opened in the midline over two gloved fingers. The port was carefully removed under direct visualization and the injured small bowel was identified. The bowel was covered by omentum which was adhered to the anterior abdominal wall at the site of port entry. The enterotomy was whipstitched closed using 3-0 silk suture to prevent spillage. Upon further inspection the small bowel appeared ischemic and so all of the small bowel was eviscerated and inspected from the ligament of treitz distally to the colon. The small bowel starting at approximately 30 cm from the ligament of treitz distally to the ileocecal valve was ischemic and gangrenous. The entire right colon was ischemic. The mesenteric vessels were palpated and had bounding pulses. There was no evidence of internal hernia, adhesions causing bowel obstruction, or any other mechanical explanation for the ischemic bowel. The rest of the colon was inspected and was healthy. The stomach and other intraabdominal organs were unremarkable. The ischemic small bowel and colon did not show signs of reperfusion upon reinspection and the decision was made to resect it. A window was made in the small bowel mesentery at an area of healthy appearing proximal jejunum (30cm from ligament of treitz) and the small bowel transected using a BEENA 75mm blue load stapler. The right colon was then mobilized by transecting the white line of toldt with bovie and sweeping it medially, The proximal transverse colon was mobilized by taking down omental attachments using cautery in an avascular plane. A window was made in the mesentery of the proximal transverse colon where the colon was well perfused and healthy appearing and this was transected using a BEENA 75mm blue load stapler. The mesentery was ligated using ligasure and the specimen was passed off the table. The abdomen was copiously irrigated with warmed saline. The abdomen was carefully inspected for hemostasis which was meticulously achieved. At this point, the decision was made to leave the abdomen open and to reinspect the remainder of the bowel at a later date after the patient was resuscitated. An abthera vac was not readily available at this time. Therefore, the skin was closed using 2-0 nylon running stitch. A sterile dressing was applied. The patient was kept intubated and sedated and taken to PACU in guarded condition. At the end of the case, all sponge, instrument, and sharp counts were correct x2. The patient is scheduled for the OR tomorrow in order to apply abthera vac. The family was made aware of intraoperative findings and plan.
--- NOTE | 2017-07-07 18:07 | Progress Note ---
Assessment and Plan Postoperative respiratory failure, now on mechanical ventilatory support Sepsis syndrome. Ischemic bowel, possibly secondary to embolic event vs related to drug abuse H/O Cocaine use with possibility of arterial spasm. Acute kidney injury. Leukocytosis. Uncontrolled hypertension. Severe anemia. Drug abuse. Alcohol abuse - continue full AC support acutely - daily SAT's - Daily SBT's to begin after OR interventions - continue anti-infectives per ID recs - keep NPO - TPN per surgery - continue GI & VTE prophylaxis - gentle hydration - azotemia per nephrology - GI & VTE prophylaxis - flu & pneumovax per protocol ...35' CCT Subjective Date of service: 07/07/17 Principal diagnosis: Post-Op Resp Failure on MVS; Ischemic Bowel s/p Ex-Lap; EMMA Interval history: Patient is seen today for: Post-Op Resp Failure on MVS; Ischemic Bowel s/p Ex- Lap; EMMA Seen and examined at bedside; 24hour events reviewed; nursing and respiratory care staff consulted; no adverse overnight events reported to me; resting peacefully; denies uncontrolled pain; No N/V/F/C; no new issues otherwise; to return to OR on sunday tentatively Objective Vital Signs - 12hr 07/07/17 07/07/17 07/07/17 06:15 06:30 06:45 Temperature Pulse Rate 104 H 99 H 98 H Respiratory 16 18 18 Rate Blood Pressure 157/82 138/82 144/82 O2 Sat by Pulse 100 100 100 Oximetry 07/07/17 07/07/17 07/07/17 07:00 07:15 07:30 Temperature Pulse Rate 98 H 98 H 99 H Respiratory 18 17 18 Rate Blood Pressure 134/81 134/80 129/78 O2 Sat by Pulse 100 100 100 Oximetry 07/07/17 07/07/17 07/07/17 07:45 08:00 08:15 Temperature 98.2 F Pulse Rate 98 H 100 H 95 H Respiratory 17 19 18 Rate Blood Pressure 136/82 126/82 144/78 O2 Sat by Pulse 100 100 100 Oximetry 07/07/17 07/07/17 07/07/17 08:30 08:45 09:00 Temperature Pulse Rate 95 H 98 H 95 H Respiratory 18 18 17 Rate Blood Pressure 146/83 143/80 134/78 O2 Sat by Pulse 100 100 100 Oximetry 07/07/17 07/07/17 07/07/17 09:15 09:30 09:45 Temperature Pulse Rate 99 H 93 H 97 H Respiratory 17 17 17 Rate Blood Pressure 135/79 134/76 153/81 O2 Sat by Pulse 100 100 100 Oximetry 07/07/17 07/07/17 07/07/17 10:00 10:15 10:18 Temperature 98.5 F Pulse Rate 96 H 97 H Respiratory 18 18 Rate Blood Pressure 143/78 139/77 O2 Sat by Pulse 100 100 Oximetry 07/07/17 07/07/17 07/07/17 10:30 10:45 11:00 Temperature Pulse Rate 96 H 97 H 105 H Respiratory 17 18 16 Rate Blood Pressure 141/83 144/80 148/79 O2 Sat by Pulse 100 100 100 Oximetry 07/07/17 07/07/17 07/07/17 11:15 11:30 11:45 Temperature Pulse Rate 101 H 101 H 100 H Respiratory 18 16 17 Rate Blood Pressure 144/83 139/79 147/81 O2 Sat by Pulse 100 100 100 Oximetry 07/07/17 07/07/17 07/07/17 12:00 12:15 12:30 Temperature Pulse Rate 102 H 106 H 100 H Respiratory 17 14 17 Rate Blood Pressure 141/82 136/83 143/79 O2 Sat by Pulse 100 100 100 Oximetry 07/07/17 07/07/17 07/07/17 12:45 13:00 13:15 Temperature Pulse Rate 99 H 101 H 99 H Respiratory 17 18 18 Rate Blood Pressure 140/79 148/82 132/81 O2 Sat by Pulse 100 100 100 Oximetry 07/07/1707/07/07/07/17 13:20 13:30 13:45 Temperature Pulse Rate 97 H 95 H 96 H Respiratory 17 17 Rate Blood Pressure 132/81 146/83 150/90 O2 Sat by Pulse 100 100 100 Oximetry 07/07/17/07/2007/07/17 14:00 14:15 14:30 Temperature Pulse Rate 97 H 98 H 99 H Respiratory 18 18 20 Rate Blood Pressure 142/86 147/83 147/86 O2 Sat by Pulse 100 100 100 Oximetry 07/07/17 07/07/17/07/20 14:45 15:00 15:15 Temperature Pulse Rate 97 H 96 H 98 H Respiratory 18 20 17 Rate Blood Pressure 144/82 144/82 145/82 O2 Sat by Pulse 100 100 100 Oximetry 07/07/17 07/07/17 07/07/17 15:30 15:45 16:00 Temperature 98.6 F Pulse Rate 97 H 97 H 97 H Respiratory 17 18 17 Rate Blood Pressure 152/83 154/85 148/81 O2 Sat by Pulse 100 100 100 Oximetry 07/07/17 07/07/17 16:15 17:50 Temperature Pulse Rate 109 H 106 H Respiratory 15 Rate Blood Pressure 160/83 156/93 O2 Sat by Pulse 100 100 Oximetry Constitutional: no acute distress, other (sedated) Eyes: non-icteric ENT: oropharynx moist, other (ETT 23 cm IVA) Neck: supple, no lymphadenopathy, other (no thyromegaly) Effort: mildly labored Ascultation: Bilateral: diminished breath sounds (bases), rhonchi Percussion: Bilateral: not dull Cardiovascular: regular rate and rhythm, other (No R/M) Gastrointestinal: hypoactive bowel sounds, non-tender, non-distended, other (no palpable HSM) Integumentary: normal Extremities: no cyanosis, no edema, pulses normal, no ischemia or petechiae Neurologic: normal mental status, non-focal exam, pupils equal and round, CN II- XII normal Psychiatric: mood appropriate, affect normal CBC and BMP: 07/08/17 04:22 07/08/17 04:22 ABG, PT/INR, D-dimer: ABG POC ABG pH 7.354 (7.35-7.45) 07/07/17 04:18 POC ABG pCO2 27.5 (35-45) L 07/07/17 04:18 POC ABG pO2 61 (80-105) L 07/07/17 04:18 POC ABG HCO3 15.3 07/07/17 04:18 POC ABG Total CO2 16 07/07/17 04:18 POC ABG O2 Sat 90 07/07/17 04:18 PT/INR, D-dimer PT 12.5 Sec. (12.2-14.9) 07/03/17 06:19 INR 0.89 (0.87-1.13) 07/03/17 06:19 Abnormal lab findings: Abnormal Labs 07/03/17 07/03/17 07/03/17 05:11 05:28 05:28 WBC 12.9 H Hgb 5.6 L* Hct 22.3 L MCV 59 L MCH 15 L MCHC 25 L RDW 33.3 H Plt Count 125 L Seg Neuts % (Manual) 75.0 H Lymphocytes % (Manual) Seg Neutrophils # Man 9.7 H Lymphocytes # (Manual) Monocytes # (Manual) POC ABG pH POC ABG pCO2 POC ABG pO2 Sodium Potassium 3.0 L Chloride Carbon Dioxide BUN Creatinine 0.6 L Glucose 220 H POC Glucose 188 H Lactic Acid Calcium Magnesium Iron TIBC Transferrin C-Reactive Protein PTH Intact Urine WBC (Auto) Urine Creatinine Urine Microalbumin Urine Total Protein Crossmatch 07/03/17 07/03/17 07/03/17 06:19 06:35 08:42 WBC Hgb Hct MCV MCH MCHC RDW Plt Count Seg Neuts % (Manual) Lymphocytes % (Manual) Seg Neutrophils # Man Lymphocytes # (Manual) Monocytes # (Manual) POC ABG pH POC ABG pCO2 POC ABG pO2 Sodium Potassium Chloride Carbon Dioxide BUN Creatinine Glucose POC Glucose Lactic Acid 2.50 H* 2.20 H* Calcium Magnesium Iron TIBC Transferrin C-Reactive Protein PTH Intact Urine WBC (Auto) Urine Creatinine Urine Microalbumin Urine Total Protein Crossmatch See Detail 07/03/17 07/03/17 07/03/17 09:31 09:31 11:50 WBC Hgb 5.7 L* Hct 22.4 L MCV MCH MCHC RDW Plt Count Seg Neuts % (Manual) Lymphocytes % (Manual) Seg Neutrophils # Man Lymphocytes # (Manual) Monocytes # (Manual) POC ABG pH POC ABG pCO2 POC ABG pO2 Sodium Potassium Chloride Carbon Dioxide BUN Creatinine Glucose POC Glucose Lactic Acid 2.80 H* Calcium Magnesium Iron 12 L TIBC 534 H Transferrin C-Reactive Protein PTH Intact Urine WBC (Auto) Urine Creatinine Urine Microalbumin Urine Total Protein Crossmatch 07/03/17 07/03/17 07/03/17 16:50 16:50 Unknown WBC Hgb 9.7 L D Hct MCV MCH MCHC RDW Plt Count Seg Neuts % (Manual) Lymphocytes % (Manual) Seg Neutrophils # Man Lymphocytes # (Manual) Monocytes # (Manual) POC ABG pH POC ABG pCO2 POC ABG pO2 Sodium Potassium Chloride Carbon Dioxide BUN Creatinine Glucose POC Glucose Lactic Acid 2.30 H* Calcium Magnesium Iron TIBC Transferrin C-Reactive Protein PTH Intact Urine WBC (Auto) 18.0 H Urine Creatinine Urine Microalbumin Urine Total Protein Crossmatch 07/04/17 07/04/17 07/04/17 03:57 03:57 04:39 WBC 42.4 H* 42.8 H* Hgb 9.1 L 9.3 L Hct MCV 65 L 66 L MCH 19 L 20 L MCHC 29 L RDW 37.3 H 37.3 H Plt Count 120 L Seg Neuts % (Manual) 93.5 H Lymphocytes % (Manual) 2.5 L Seg Neutrophils # Man 40.0 H Lymphocytes # (Manual) 1.1 L Monocytes # (Manual) 1.1 H POC ABG pH POC ABG pCO2 POC ABG pO2 Sodium 134 L Potassium 3.5 L Chloride 95.4 L Carbon Dioxide 21 L BUN 6 L Creatinine 0.5 L Glucose 147 H POC Glucose Lactic Acid Calcium 7.9 L Magnesium Iron TIBC Transferrin C-Reactive Protein PTH Intact Urine WBC (Auto) Urine Creatinine Urine Microalbumin Urine Total Protein Crossmatch 07/04/17 07/04/17 07/05/17 12:09 17:11 08:21 WBC 56.3 H* Hgb 8.3 L Hct 29.1 L MCV 66 L MCH 19 L MCHC 28 L RDW 38.3 H Plt Count Seg Neuts % (Manual) 96.5 H Lymphocytes % (Manual) 1.0 L Seg Neutrophils # Man 54.3 H Lymphocytes # (Manual) 0.6 L Monocytes # (Manual) 1.4 H POC ABG pH POC ABG pCO2 POC ABG pO2 Sodium Potassium Chloride Carbon Dioxide BUN Creatinine Glucose POC Glucose 169 H 124 H Lactic Acid Calcium Magnesium Iron TIBC Transferrin C-Reactive Protein PTH Intact Urine WBC (Auto) Urine Creatinine Urine Microalbumin Urine Total Protein Crossmatch 07/05/17 07/05/17 07/05/17 08:21 10:55 22:34 WBC Hgb Hct MCV MCH MCHC RDW Plt Count Seg Neuts % (Manual) Lymphocytes % (Manual) Seg Neutrophils # Man Lymphocytes # (Manual) Monocytes # (Manual) POC ABG pH 7.185 L POC ABG pCO2 33.8 L POC ABG pO2 Sodium 135 L 135 L Potassium Chloride Carbon Dioxide 18 L 16 L BUN 25 H 27 H Creatinine 2.7 H D 2.9 H Glucose 115 H 119 H POC Glucose Lactic Acid Calcium 7.9 L 8.0 L Magnesium Iron TIBC Transferrin C-Reactive Protein PTH Intact Urine WBC (Auto) Urine Creatinine Urine Microalbumin Urine Total Protein Crossmatch 07/05/17 07/06/17 07/06/17 Unknown 05:17 07:28 WBC Hgb Hct MCV MCH MCHC RDW Plt Count Seg Neuts % (Manual) Lymphocytes % (Manual) Seg Neutrophils # Man Lymphocytes # (Manual) Monocytes # (Manual) POC ABG pH POC ABG pCO2 28.0 L POC ABG pO2 193 H Sodium Potassium Chloride 112.6 H Carbon Dioxide 15 L BUN 35 H Creatinine 4.0 H Glucose POC Glucose Lactic Acid Calcium 5.8 L* D Magnesium 1.20 L Iron TIBC Transferrin 148 L C-Reactive Protein PTH Intact Urine WBC (Auto) Urine Creatinine 237.2 H Urine Microalbumin 39.9 H Urine Total Protein 170 H Crossmatch 07/06/17 07/06/17 07/06/17 07:28 07:28 10:27 WBC 28.9 H Hgb 7.1 L Hct 24.5 L MCV 66 L MCH 19 L MCHC 29 L RDW 38.6 H Plt Count Seg Neuts % (Manual) Lymphocytes % (Manual) Seg Neutrophils # Man Lymphocytes # (Manual) Monocytes # (Manual) POC ABG pH POC ABG pCO2 POC ABG pO2 Sodium Potassium Chloride Carbon Dioxide BUN Creatinine Glucose POC Glucose Lactic Acid Calcium Magnesium Iron TIBC Transferrin C-Reactive Protein PTH Intact 285.9 H Urine WBC (Auto) Urine Creatinine Urine Microalbumin Urine Total Protein Crossmatch See Detail 07/06/17 07/07/17 07/07/17 18:08 04:18 05:59 WBC 24.9 H Hgb 8.8 L Hct 28.0 L MCV 72 L MCH 23 L MCHC RDW 33.3 H Plt Count Seg Neuts % (Manual) Lymphocytes % (Manual) Seg Neutrophils # Man Lymphocytes # (Manual) Monocytes # (Manual) POC ABG pH POC ABG pCO2 27.5 L POC ABG pO2 61 L Sodium Potassium Chloride Carbon Dioxide BUN Creatinine Glucose POC Glucose Lactic Acid Calcium Magnesium Iron TIBC Transferrin C-Reactive Protein 26.20 H PTH Intact Urine WBC (Auto) Urine Creatinine Urine Microalbumin Urine Total Protein Crossmatch 07/07/17 07/07/17 05:59 05:59 WBC Hgb Hct MCV MCH MCHC RDW Plt Count Seg Neuts % (Manual) Lymphocytes % (Manual) Seg Neutrophils # Man Lymphocytes # (Manual) Monocytes # (Manual) POC ABG pH POC ABG pCO2 POC ABG pO2 Sodium Potassium Chloride Carbon Dioxide 17 L BUN 46 H Creatinine 4.8 H Glucose 103 H POC Glucose Lactic Acid Calcium 7.6 L D Magnesium 2.50 H Iron TIBC Transferrin C-Reactive Protein PTH Intact Urine WBC (Auto) Urine Creatinine Urine Microalbumin Urine Total Protein Crossmatch Chest x-ray: image reviewed (ETT in good position; likely small layering effusions) Allied health notes reviewed: nursing
[2017-07-07] MEDS: SODIUM BICARBONATE 150 MEQ in D5W 1,000 ML IV SCH (19:15)
[2017-07-07] MEDS ORDERED: TPN ADULT 2,400 ML IV SCH (20:00)
[2017-07-07] MEDS: MERREM/NS 500 MG/50 ML 500 MG/50 ML BAG IV SCH (21:59)
[2017-07-07] MEDS ORDERED: MERREM 1,000 MG in NACL 0.9% 100 ML IV SCH (22:00)
[2017-07-08] MEDS: fentaNYL DRIP Premix 2,000 MCG/100 ML BAG IV SCH ×2 (04:44→17:18)
[2017-07-08 04:51] LABS: Hematocrit 27.5 % (30.3-42.9); Hemoglobin 8.9 gm/dl (10.1-14.3); Mean Corpuscular HGB Conc 32 % (30-34); Mean Corpuscular Volume 71 fl (79-97); Red Blood Count 3.85 M/mm3 (3.65-5.03)
[2017-07-08 05:03] LABS: Calcium 8.3 mg/dL (8.4-10.2)
[2017-07-08 05:04] LABS: Mean Corpuscular Hemoglobin 23 pg (28-32)
[2017-07-08 05:05] LABS: Platelet Count 364 K/mm3 (140-440)
[2017-07-08] MEDS: PEPCID IV SCH (10:00)
[2017-07-08] MEDS: DIFLUCAN 200 MG/100 ML BAG IV SCH (10:01)
[2017-07-08] MEDS: SODIUM BICARBONATE 150 MEQ in D5W 1,000 ML IV SCH ×2 (10:01→20:38)
[2017-07-08] MEDS: ATIVAN 100 MG in NACL 0.9% 50 ML, VIAFLEX EMPTY CONTAINER 0 ML IV SCH (10:49)
[2017-07-08] MEDS: MERREM/NS 500 MG/50 ML 500 MG/50 ML BAG IV SCH ×2 (10:52→22:01)
--- NOTE | 2017-07-08 11:00 | Progress Note ---
Assessment and Plan - Patient Problems (1) Ischemia, bowel Current Visit: Yes Status: Acute Plan to address problem: Pt stable. Wound vac working well. Tentative plan for return to OR on Sunday. If patient decompensates and cause felt to be abdominal, we are prepared to take her back sooner. Discussed with family. Consent on chart. Will continue to follow. Subjective Date of service: 07/08/17 Patient Reports: Positive: other (Nurse reports that she is doing well. no AbThera issues. UOP improving. HR better. ) Objective Vital Signs - 12hr 07/07/17 07/07/17 07/07/17 23:00 23:08 23:15 Temperature Pulse Rate 95 H 94 H 94 H Respiratory 18 18 18 Rate Blood Pressure 135/89 135/89 134/85 O2 Sat by Pulse 100 100 100 Oximetry 07/07/17 07/07/17 07/08/17 23:30 23:45 00:00 Temperature 99.0 F Pulse Rate 93 H 94 H 94 H Respiratory 18 18 18 Rate Blood Pressure 142/91 133/85 131/85 O2 Sat by Pulse 100 100 100 Oximetry 07/08/17 07/08/17 07/08/17 00:15 00:19 00:30 Temperature Pulse Rate 93 H 93 H 93 H Respiratory 18 18 Rate Blood Pressure 134/83 133/77 135/84 O2 Sat by Pulse 100 100 100 Oximetry 07/08/17 07/08/17 07/08/17 00:46 01:00 01:15 Temperature Pulse Rate 97 H 95 H 95 H Respiratory 16 18 18 Rate Blood Pressure 149/73 135/83 135/85 O2 Sat by Pulse 100 100 100 Oximetry 07/08/17 07/08/17 07/08/17 01:30 01:45 02:00 Temperature Pulse Rate 92 H 94 H 93 H Respiratory 18 18 18 Rate Blood Pressure 140/79 143/83 140/80 O2 Sat by Pulse 100 100 100 Oximetry 07/08/17 07/08/17 07/08/17 02:15 02:30 02:45 Temperature Pulse Rate 91 H 96 H 92 H Respiratory 18 17 18 Rate Blood Pressure 144/83 139/87 142/81 O2 Sat by Pulse 100 100 100 Oximetry 07/08/17 07/08/17 07/08/17 03:00 03:15 03:30 Temperature Pulse Rate 91 H 92 H 91 H Respiratory 18 18 18 Rate Blood Pressure 134/79 139/82 134/80 O2 Sat by Pulse 100 100 100 Oximetry 07/08/17 07/08/17 07/08/17 03:45 04:00 04:15 Temperature Pulse Rate 89 79 85 Respiratory 18 18 18 Rate Blood Pressure 138/82 132/66 144/76 O2 Sat by Pulse 100 100 100 Oximetry 07/08/17 07/08/17 07/08/17 04:30 04:45 05:00 Temperature Pulse Rate 98 H 92 H 104 H Respiratory 18 18 19 Rate Blood Pressure 154/92 161/82 177/94 O2 Sat by Pulse 100 100 100 Oximetry 07/08/17 07/08/17 07/08/17 05:15 05:27 05:30 Temperature Pulse Rate 92 H 106 H 99 H Respiratory 11 L 18 Rate Blood Pressure 158/87 133/77 138/90 O2 Sat by Pulse 100 100 100 Oximetry 07/08/17 07/08/17 07/08/17 05:45 06:00 06:15 Temperature Pulse Rate 101 H 93 H 94 H Respiratory 18 18 18 Rate Blood Pressure 142/87 140/77 130/74 O2 Sat by Pulse 100 100 100 Oximetry 07/08/17 07/08/17 07/08/17 06:30 06:45 07:00 Temperature Pulse Rate 85 84 80 Respiratory 18 18 18 Rate Blood Pressure 129/66 136/70 136/71 O2 Sat by Pulse 100 100 100 Oximetry 07/08/17 07/08/17 07/08/17 07:15 07:30 07:45 Temperature Pulse Rate 87 83 79 Respiratory 18 18 18 Rate Blood Pressure 153/78 148/80 151/75 O2 Sat by Pulse 100 100 100 Oximetry 07/08/17 07/08/17 07/08/17 08:00 08:15 08:30 Temperature 98.3 F Pulse Rate 83 88 87 Respiratory 18 18 18 Rate Blood Pressure 150/78 168/87 161/92 O2 Sat by Pulse 100 100 100 Oximetry 07/08/17 07/08/17 07/08/17 08:45 09:00 09:15 Temperature Pulse Rate 88 80 84 Respiratory 18 18 18 Rate Blood Pressure 149/90 161/83 154/84 O2 Sat by Pulse 100 100 100 Oximetry 07/08/17 07/08/17 07/08/17 09:30 09:45 10:00 Temperature Pulse Rate 83 82 82 Respiratory 18 18 18 Rate Blood Pressure 158/87 154/88 147/84 O2 Sat by Pulse 100 100 100 Oximetry 07/08/17 10:15 Temperature Pulse Rate 92 H Respiratory 18 Rate Blood Pressure 155/80 O2 Sat by Pulse 100 Oximetry - General physical appearance no distress, other (Intubated and sedated) - Respiratory normal expansion, normal respiratory effort - Abdomen soft, other (Abthera in place. Serous drainage. No leaks. ) - Labs 07/08/17 04:22 07/08/17 04:22 Diabetes panel 07/08/17 Range/Units 04:22 Sodium 138 (137-145) mmol/L Potassium 4.3 (3.6-5.0) mmol/L Chloride 103.2 (98-107) mmol/L Carbon Dioxide 18 L (22-30) mmol/L BUN 56 H (7-17) mg/dL Creatinine 4.3 H (0.7-1.2) mg/dL Glucose 110 H (65-100) mg/dL Calcium 8.3 L (8.4-10.2) mg/dL Calcium panel 07/08/17 07/08/17 Range/Units 04:22 04:22 Calcium 8.3 L (8.4-10.2) mg/dL Phosphorus 4.80 H (2.5-4.5) mg/dL Pituitary panel 07/08/17 Range/Units 04:22 Sodium 138 (137-145) mmol/L Potassium 4.3 (3.6-5.0) mmol/L Chloride 103.2 (98-107) mmol/L Carbon Dioxide 18 L (22-30) mmol/L BUN 56 H (7-17) mg/dL Creatinine 4.3 H (0.7-1.2) mg/dL Glucose 110 H (65-100) mg/dL Calcium 8.3 L (8.4-10.2) mg/dL Adrenal panel 07/08/17 Range/Units 04:22 Sodium 138 (137-145) mmol/L Potassium 4.3 (3.6-5.0) mmol/L Chloride 103.2 (98-107) mmol/L Carbon Dioxide 18 L (22-30) mmol/L BUN 56 H (7-17) mg/dL Creatinine 4.3 H (0.7-1.2) mg/dL Glucose 110 H (65-100) mg/dL Calcium 8.3 L (8.4-10.2) mg/dL
--- NOTE | 2017-07-08 11:01 | Progress Note ---
Assessment and Plan Severe Sepsis due to Peritonitis: Questionable Liver Hemangioma: ID consulted, on Abx Urine culture showed 10-100,000 mixed culture >2, probably contamination Bowel ischemia with gangrene. s/p Surgery by GS. Hypoxic respiratory failure: -Intubated on Vent -Per ICU Acute Kidney Injury secondary to ATN High Anion Gap Metabolic Acidosis: Hypocalcemia: Cr trending down, UOP improving. Continue D5W with 150 meq of HCO3 at 75 cc/hr. Keep close eye on volume status while on IVFs as CXR mildly congested. Replace Ca PRN. Echo on 07/03/17 showed LVEF 60-65% No hydronephrosis seen on CT ABD/Pelvis IV contrast on 07/04/17 Lisinopril already stopped Obtain daily weight Strict intake and output Reddy Catheter: No Anemia: Vaginal Bleeding: Left simple ovarian cyst: Transfuse PRN per primary Alcohol Use: [facility] protocol Aaron Leos MD [phone] Subjective Date of service: 07/08/17 Principal diagnosis: Post-Op Resp Failure on MVS; Ischemic Bowel s/p Ex-Lap; EMMA Interval history: Making more urine. renal function improving. Objective - Exam Narrative Exam: General appearance: Intubated EENT: ATNC Neck: Present: neck supple Respiratory: Coarse BS BL Heart: tachycardia, S1S2 Gastrointestinal: Soft, ND Integumentary: warm and dry Neurologic: Intubated on vent Musculoskeletal: Present: other (no edema to both lower extremities) Psychiatric: Intubated - Vital Signs Vital signs: Vital Signs - 12hr 07/07/17 07/07/17 07/07/17 23:08 23:15 23:30 Temperature Pulse Rate 94 H 94 H 93 H Respiratory 18 18 18 Rate Blood Pressure 135/89 134/85 142/91 O2 Sat by Pulse 100 100 100 Oximetry 07/07/17 07/08/17 07/08/17 23:45 00:00 00:15 Temperature 99.0 F Pulse Rate 94 H 94 H 93 H Respiratory 18 18 18 Rate Blood Pressure 133/85 131/85 134/83 O2 Sat by Pulse 100 100 100 Oximetry 07/08/17 07/08/17 07/08/17 00:19 00:30 00:46 Temperature Pulse Rate 93 H 93 H 97 H Respiratory 18 16 Rate Blood Pressure 133/77 135/84 149/73 O2 Sat by Pulse 100 100 100 Oximetry 07/08/17 07/08/17 07/08/17 01:00 01:15 01:30 Temperature Pulse Rate 95 H 95 H 92 H Respiratory 18 18 18 Rate Blood Pressure 135/83 135/85 140/79 O2 Sat by Pulse 100 100 100 Oximetry 07/08/17 07/08/17 07/08/17 01:45 02:00 02:15 Temperature Pulse Rate 94 H 93 H 91 H Respiratory 18 18 18 Rate Blood Pressure 143/83 140/80 144/83 O2 Sat by Pulse 100 100 100 Oximetry 07/08/17 07/08/17 07/08/17 02:30 02:45 03:00 Temperature Pulse Rate 96 H 92 H 91 H Respiratory 17 18 18 Rate Blood Pressure 139/87 142/81 134/79 O2 Sat by Pulse 100 100 100 Oximetry 07/08/17 07/08/17 07/08/17 03:15 03:30 03:45 Temperature Pulse Rate 92 H 91 H 89 Respiratory 18 18 18 Rate Blood Pressure 139/82 134/80 138/82 O2 Sat by Pulse 100 100 100 Oximetry 07/08/17 07/08/17 07/08/17 04:00 04:15 04:30 Temperature Pulse Rate 79 85 98 H Respiratory 18 18 18 Rate Blood Pressure 132/66 144/76 154/92 O2 Sat by Pulse 100 100 100 Oximetry 07/08/17 07/08/17 07/08/17 04:45 05:00 05:15 Temperature Pulse Rate 92 H 104 H 92 H Respiratory 18 19 11 L Rate Blood Pressure 161/82 177/94 158/87 O2 Sat by Pulse 100 100 100 Oximetry 07/08/17 07/08/17 07/08/17 05:27 05:30 05:45 Temperature Pulse Rate 106 H 99 H 101 H Respiratory 18 18 Rate Blood Pressure 133/77 138/90 142/87 O2 Sat by Pulse 100 100 100 Oximetry 07/08/17 07/08/17 07/08/17 06:00 06:15 06:30 Temperature Pulse Rate 93 H 94 H 85 Respiratory 18 18 18 Rate Blood Pressure 140/77 130/74 129/66 O2 Sat by Pulse 100 100 100 Oximetry 07/08/17 07/08/17 07/08/17 06:45 07:00 07:15 Temperature Pulse Rate 84 80 87 Respiratory 18 18 18 Rate Blood Pressure 136/70 136/71 153/78 O2 Sat by Pulse 100 100 100 Oximetry 07/08/17 07/08/17 07/08/17 07:30 07:45 08:00 Temperature 98.3 F Pulse Rate 83 79 83 Respiratory 18 18 18 Rate Blood Pressure 148/80 151/75 150/78 O2 Sat by Pulse 100 100 100 Oximetry 07/08/17 07/08/17 07/08/17 08:15 08:30 08:45 Temperature Pulse Rate 88 87 88 Respiratory 18 18 18 Rate Blood Pressure 168/87 161/92 149/90 O2 Sat by Pulse 100 100 100 Oximetry 07/08/17 07/08/17 07/08/17 09:00 09:15 09:30 Temperature Pulse Rate 80 84 83 Respiratory 18 18 18 Rate Blood Pressure 161/83 154/84 158/87 O2 Sat by Pulse 100 100 100 Oximetry 07/08/17 07/08/17 07/08/17 09:45 10:00 10:15 Temperature Pulse Rate 82 82 92 H Respiratory 18 18 18 Rate Blood Pressure 154/88 147/84 155/80 O2 Sat by Pulse 100 100 100 Oximetry - Lab 07/08/17 04:22 07/08/17 04:22 Most recent lab results Calcium 8.3 mg/dL (8.4-10.2) L 07/08/17 04:22 Phosphorus 4.80 mg/dL (2.5-4.5) H 07/08/17 04:22 Magnesium 2.60 mg/dL (1.7-2.3) H 07/08/17 04:22 Urine Creatinine 237.2 mg/dL (0.1-20.0) H 07/05/17 Unknown Urine Sodium 18 mmol/L 07/05/17 Unknown Urine Total Protein 170 mg/dL (5-11.8) H 07/05/17 Unknown
--- NOTE | 2017-07-08 11:30 | Progress Note ---
Assessment and Plan Assessment and plan: Patient is a 42-year-old female with no significant past medical history significant for hypertension which she takes lisinopril 10 mg daily. She presents to the hospital complaining of nausea, vomiting vaginal bleeding is likely secondary. Which is normally very heavy. She reports the symptoms started about a day prior to admission was accompanied by diffuse abdominal pain to return and intensity of doing improving. On presentation to the hospital she was noted to have a core temperature of 91.6 with systolic blood pressure off well over 200. She denied any chest pain, but appeared generally uncomfortable. She denied any dysuria or increased frequency. She was unable to quantify the diarrhea. She reports alcohol use but this is limited to the weekend she states that this weekend she drank 2 bottles of wine. chimes in that once in a while she drinks them mixed with beer. 1. Severe Sepsis with worsening Leukocytosis 2. EMMA secondary to vasomotor nephropathy with underlying ATN 3. Peritoneal irritation r/o aortic Dissection 4. Severe Anemia 5. Ischemic/Gangrenous Bowel 6. Worsening luekocytosis 7. Symptomatic Anemia 8. Hypertensive urgency-resolved 9. Menorraghia secondary to Fibroids 10. Etoh use disorder 11. Right liver lesion ?Hemangioma 12. Multiple electrolyte abnormalities 13. Hypothermia-Resolved 14. Cocain abuse per hx. Not mentioned on admission. Only alcohol which was minimized. Plan S/P Resection of ischemia/Gangrenous bowel Plan to return to the OR tomorrow for possible abdominal wound closure. Question embolic versus cocaine induced. ID concerned about acute enterocolitis considering order of event with onset following [employer]. Foundation Engineer input noted, patient with good urinary output despite elevated creatinine. Hold valsartan Continue antibiotics per ID Discussed with surgery, relations specialist and also with ID Excessive fluids may be prohibitive considering Elevated BP and Blood product need on admission was. [facility] protocol Counselling for ETOH when more stable Pain control Pelvic ultrasound NOTED. DVT/GI prophy No family at bedside. The high probability of a clinically significant, sudden or life threatening deterioration of the [GI, renal] system(s) required my full and direct attention , intervention and personal management. The aggregate critical care time was [35 ] minutes. This time is in addition to time spent performing reported procedures but includes the following: [X] Data Review and interpretation [X] Patient assessment and monitoring of vital signs [X] Documentation [X] Medication orders and management - Patient Problems (1) Severe sepsis Current Visit: Yes Status: Acute (2) Alcohol abuse Current Visit: Yes Status: Acute (3) Hypertensive urgency, malignant Current Visit: Yes Status: Acute (4) Anemia requiring transfusions Current Visit: Yes Status: Acute (5) Dysfunctional uterine bleeding Current Visit: Yes Status: Acute (6) Fibroids Current Visit: Yes Status: Acute (7) Hypothermia Current Visit: Yes Status: Acute History Interval history: Patient is seen today for: Abdominal pain, sepsis Seen and examined at bedside; 24hour events reviewed; nursing staff ; status post exploratory lap with resection of gangrenous bowel. Now with wound vac in place. Awakens to verbal stimuli. Remains on full ventilatory support. Hospitalist Physical - Physical exam Narrative exam: VITAL SIGNS: Reviewed. GENERAL: The patient with full mechanical ventilatory support.Vital signs as documented. HEAD: No signs of head trauma. EYES: Pupils are equal. EARS: Hearing grossly intact. MOUTH: ET tube in place NECK: No adenopathy, no JVD. CHEST: Chest with clear breath sounds bilaterally. No wheezes, rales, or rhonchi. CARDIAC: [place]. S1 and S2, without murmurs, gallops, or rubs. VASCULAR: No Edema. Peripheral pulses normal and equal in all extremities. ABDOMEN: Dressing in place open wound. MUSCULOSKELETAL: Extremities without clubbing, cyanosis or edema. NEUROLOGIC EXAM: Awakens to verbal stimuli full exam unable to obtain as patient lives mechanical ventilator. PSYCHIATRIC: Unable to assess SKIN: Open abdominal wound with wound VAC in place - Constitutional Vitals: Temp Pulse Resp BP Pulse Ox 98.3 F 92 H 18 155/80 100 07/08/17 08:00 07/08/17 10:15 07/08/17 10:15 07/08/17 10:15 07/08/17 10:15 Results - Labs CBC & Chem 7: 07/08/17 04:22 07/08/17 04:22 Labs: Laboratory Last Values WBC 21.3 K/mm3 (4.5-11.0) H 07/08/17 04:22 RBC 3.85 M/mm3 (3.65-5.03) 07/08/17 04:22 Hgb 8.9 gm/dl (10.1-14.3) L 07/08/17 04:22 Hct 27.5 % (30.3-42.9) L 07/08/17 04:22 MCV 71 fl (79-97) L 07/08/17 04:22 MCH 23 pg (28-32) L 07/08/17 04:22 MCHC 32 % (30-34) 07/08/17 04:22 RDW 35.0 % (13.2-15.2) H 07/08/17 04:22 Plt Count 364 K/mm3 (140-440) 07/08/17 04:22 Lymph % (Auto) Follow Up Manager 07/03/17 05:28 [place] % (Auto) Follow Up Manager 07/03/17 05:28 Eos % (Auto) Follow Up Manager 07/03/17 05:28 Baso % (Auto) Follow Up Manager 07/03/17 05:28 Lymph # Follow Up Manager 07/03/17 05:28 [place] # Follow Up Manager 07/03/17 05:28 Eos # Follow Up Manager 07/03/17 05:28 Baso # Follow Up Manager 07/03/17 05:28 Add Manual Diff Complete 07/05/17 08:21 Total Counted 200 07/05/17 08:21 Seg Neutrophils % Follow Up Manager 07/05/17 08:21 Seg Neuts % (Manual) 96.5 % (40.0-70.0) H 07/05/17 08:21 Band Neutrophils % 0 % 07/05/17 08:21 Lymphocytes % (Manual) 1.0 % (13.4-35.0) L 07/05/17 08:21 Reactive Lymphs % (Man) 0 % 07/05/17 08:21 Monocytes % (Manual) 2.5 % (0.0-7.3) 07/05/17 08:21 Eosinophils % (Manual) 0 % (0.0-4.3) 07/05/17 08:21 Basophils % (Manual) 0 % (0.0-1.8) 07/05/17 08:21 Metamyelocytes % 0 % 07/05/17 08:21 Myelocytes % 0 % 07/05/17 08:21 Promyelocytes % 0 % 07/05/17 08:21 Blast Cells % 0 % 07/05/17 08:21 Nucleated RBC % 0.5 % (0.0-0.9) 07/05/17 08:21 Seg Neutrophils # Follow Up Manager 07/03/17 05:28 Seg Neutrophils # Man 54.3 K/mm3 (1.8-7.7) H 07/05/17 08:21 Band Neutrophils # 0.0 K/mm3 07/05/17 08:21 Lymphocytes # (Manual) 0.6 K/mm3 (1.2-5.4) L 07/05/17 08:21 Abs React Lymphs (Man) 0.0 K/mm3 07/05/17 08:21 Monocytes # (Manual) 1.4 K/mm3 (0.0-0.8) H 07/05/17 08:21 Eosinophils # (Manual) 0.0 K/mm3 (0.0-0.4) 07/05/17 08:21 Basophils # (Manual) 0.0 K/mm3 (0.0-0.1) 07/05/17 08:21 Metamyelocytes # 0.0 K/mm3 07/05/17 08:21 Myelocytes # 0.0 K/mm3 07/05/17 08:21 Promyelocytes # 0.0 K/mm3 07/05/17 08:21 Blast Cells # 0.0 K/mm3 07/05/17 08:21 Pathologist Review 07/04/17 04:39 WBC Morphology Not Reportable 07/05/17 08:21 Hypersegmented Neuts Rare 07/05/17 08:21 Hyposegmented Neuts Not Reportable 07/05/17 08:21 Hypogranular Neuts Not Reportable 07/05/17 08:21 Smudge Cells Not Reportable 07/05/17 08:21 Toxic Granulation Not Reportable 07/05/17 08:21 Toxic Vacuolation Not Reportable 07/05/17 08:21 Dohle Bodies Not Reportable 07/05/17 08:21 Pelger-Huet Anomaly Not Reportable 07/05/17 08:21 Irma Rods Not Reportable 07/05/17 08:21 Platelet Estimate Cons 07/05/17 08:21 Clumped Platelets Not Reportable 07/05/17 08:21 Plt Clumps, EDTA Not Reportable 07/05/17 08:21 Large Platelets Few 07/05/17 08:21 Giant Platelets Not Reportable 07/05/17 08:21 Platelet Satelliting Not Reportable 07/05/17 08:21 Plt Morphology Comment Not Reportable 07/05/17 08:21 RBC Morphology Not Reportable 07/05/17 08:21 Dimorphic RBCs Not Reportable 07/05/17 08:21 Polychromasia Few 07/05/17 08:21 Hypochromasia 2+ 07/05/17 08:21 Poikilocytosis 1+ 07/05/17 08:21 Anisocytosis 3+ 07/05/17 08:21 Microcytosis 1+ 07/05/17 08:21 Macrocytosis Not Reportable 07/05/17 08:21 Spherocytes Not Reportable 07/05/17 08:21 Pappenheimer Bodies Not Reportable 07/05/17 08:21 Sickle Cells Not Reportable 07/05/17 08:21 Target Cells Rare 07/05/17 08:21 Tear Drop Cells Few 07/05/17 08:21 Ovalocytes Few 07/05/17 08:21 Helmet Cells Not Reportable 07/05/17 08:21 [place] Bodies Not Reportable 07/05/17 08:21 [place] Rings Not Reportable 07/05/17 08:21 Jamila Cells Not Reportable 07/05/17 08:21 Bite Cells Not Reportable 07/05/17 08:21 Crenated Cell Not Reportable 07/05/17 08:21 Elliptocytes Not Reportable 07/05/17 08:21 Acanthocytes (Spur) Not Reportable 07/05/17 08:21 Rouleaux Not Reportable 07/05/17 08:21 Hemoglobin C Crystals Not Reportable 07/05/17 08:21 Schistocytes Rare 07/05/17 08:21 Malaria parasites Not Reportable 07/05/17 08:21 Roberto Bodies Not Reportable 07/05/17 08:21 Haptoglobin 204 mg/dL (43-212) 07/03/17 09:31 Hem Pathologist Commnt No 07/05/17 08:21 PT 12.5 Sec. (12.2-14.9) 07/03/17 06:19 INR 0.89 (0.87-1.13) 07/03/17 06:19 APTT 24.6 Sec. (24.2-36.6) 07/03/17 09:31 Fibrinogen 350 mg/dl (211-480) 07/03/17 09:31 POC ABG pH 7.374 (7.35-7.45) 07/08/17 05:40 POC ABG pCO2 39.0 (35-45) 07/08/17 05:40 POC ABG pO2 158 (80-105) H 07/08/17 05:40 POC ABG HCO3 22.7 07/08/17 05:40 POC ABG Total CO2 24 07/08/17 05:40 POC ABG O2 Sat 99 07/08/17 05:40 POC ABG Base Excess -2 07/08/17 05:40 VBG pH 7.372 (7.320-7.420) 07/03/17 06:19 FiO2 50 % 07/08/17 05:40 Sodium 138 mmol/L (137-145) 07/08/17 04:22 Potassium 4.3 mmol/L (3.6-5.0) 07/08/17 04:22 Chloride 103.2 mmol/L (98-107) 07/08/17 04:22 Carbon Dioxide 18 mmol/L (22-30) L 07/08/17 04:22 Anion Gap 21 mmol/L 07/08/17 04:22 BUN 56 mg/dL (7-17) H 07/08/17 04:22 Creatinine 4.3 mg/dL (0.7-1.2) H 07/08/17 04:22 Estimated GFR 14 ml/min 07/08/17 04:22 BUN/Creatinine Ratio 13 % 07/08/17 04:22 Glucose 110 mg/dL (65-100) H 07/08/17 04:22 POC Glucose 124 (70-105) H 07/04/17 17:11 Lactic Acid 0.90 mmol/L (0.7-2.0) 07/06/17 07:28 Calcium 8.3 mg/dL (8.4-10.2) L 07/08/17 04:22 Phosphorus 4.80 mg/dL (2.5-4.5) H 07/08/17 04:22 Magnesium 2.60 mg/dL (1.7-2.3) H 07/08/17 04:22 Iron 12 ug/dL (37-170) L 07/03/17 09:31 TIBC 534 mcg/dL (250-450) H 07/03/17 09:31 Transferrin 148 mg/dl (192-382) L 07/06/17 07:28 Ferritin 79.1 ng/mL (13.0-400.0) 07/06/17 07:28 Total Bilirubin 0.40 mg/dL (0.1-1.2) 07/03/17 05:28 AST 17 units/L (5-40) 07/03/17 05:28 ALT 10 units/L (7-56) 07/03/17 05:28 Alkaline Phosphatase 74 units/L (35-129) 07/03/17 05:28 C-Reactive Protein 26.20 mg/dL (0.00-1.30) H 07/06/17 18:08 NT-Pro-B Natriuret Pep 114.4 pg/mL (0-450) 07/07/17 12:21 Total Protein 7.5 g/dL (6.3-8.2) 07/03/17 05:28 Albumin 4.5 g/dL (3.9-5) 07/03/17 05:28 Albumin/Globulin Ratio 1.5 % 07/03/17 05:28 Triglycerides 103 mg/dL (2-149) 07/05/17 22:04 Lipase 18 units/L (13-60) 07/03/17 05:28 TSH 0.561 mlU/mL (0.270-4.200) 07/04/17 14:38 HCG, Qual Negative (Negative) 07/03/17 06:19 HCG, Quant < 2 mIU/mL (0-4) 07/05/17 15:50 PTH Intact 285.9 pg/mL (15-65) H 07/06/17 07:28 Urine Color Yellow (Yellow) 07/05/17 Unknown Urine Turbidity Clear (Clear) 07/05/17 Unknown Urine pH 5.0 (5.0-7.0) 07/05/17 Unknown Ur Specific [place] 1.021 (1.003-1.030) 07/05/17 Unknown Urine Protein 100 mg/dl mg/dL (Negative) 07/05/17 Unknown Urine Glucose (UA) 50 mg/dL (Negative) 07/05/17 Unknown Urine Ketones Tr mg/dL (Negative) 07/05/17 Unknown Urine Blood Sm (Negative) 07/05/17 Unknown Urine Nitrite Neg (Negative) 07/05/17 Unknown Urine Bilirubin Neg (Negative) 07/05/17 Unknown Urine Urobilinogen < 2.0 mg/dL (<2.0) 07/05/17 Unknown Ur Leukocyte Esterase Tr (Negative) 07/05/17 Unknown Urine WBC (Auto) < 1.0 /HPF (0.0-6.0) 07/05/17 Unknown Urine RBC (Auto) 10.0 /HPF (0.0-6.0) 07/05/17 Unknown U Epithel Cells (Auto) 9.0 /HPF (0-13.0) 07/05/17 Unknown Urine Bacteria (Auto) 2+ /HPF (Negative) 07/05/17 Unknown Urine Mucus Few /HPF 07/03/17 Unknown Urine Eosinophils None seen (None Seen) 07/05/17 Unknown Urine Creatinine 237.2 mg/dL (0.1-20.0) H 07/05/17 Unknown Urine Microalbumin 39.9 mg/dL (0.1-34.0) H 07/05/17 Unknown Microalb/Creat Ratio 168.2 ug/mg 07/05/17 Unknown Urine Sodium 18 mmol/L 07/05/17 Unknown Urine Total Protein 170 mg/dL (5-11.8) H 07/05/17 Unknown Hepatitis A IgM Ab Non-reactive (NonReactive) 07/06/17 18:07 Hep Bs Antigen Non-reactive (Negative) 07/06/17 18:07 Hep B Core IgM Ab Non-reactive (NonReactive) 07/06/17 18:07 Hepatitis C Antibody Non-reactive (NonReactive) 07/06/17 18:07 HIV 1&2 Antibody Rapid Non react (Non React) 07/06/17 18:09 HIV P24 Antigen Non react (Non React) 07/06/17 18:09 Blood Type O POSITIVE 07/06/17 10:27 Antibody Screen Negative 07/06/17 10:27 Crossmatch See Detail 07/06/17 10:27
[2017-07-08] MEDS: APRESOLINE IV PRN (12:06)
--- NOTE | 2017-07-08 13:06 | XRay Report ---
AP CHEST: HISTORY: Congestion Lines and support devices are unchanged since yesterday's exam. Cardiomegaly is stable. There is poor visualization of the left lower lobe which is unchanged. Otherwise the lungs are generally clear. No large pleural effusion or pneumothorax. IMPRESSION: Mild cardiomegaly. No significant change since 07/07/17.
--- NOTE | 2017-07-08 14:58 | Progress Note ---
Assessment and Plan Assessment: 1) Severe sepsis: better leukocytosis 12-->42-->56-->28->21K; etiology: bowel ischemia - gangrene of majority of small bowel and right colon. 2) Peritonitis: secondary to gangrene of majority of small bowel and right colon. Approximately 30 cm of viable small bowel from ligament of treitz, transverse colon and remainder of colon viable. Unclear etiology: ?cocaine ? emboli -S/P Diagnostic laparoscopy, converted to exploratory laparotomy, small bowel resection, right hemicolectomy, temporary closure of abdomen on 07/06 -TTE EF >55 no clots -CRP=26 -HIV neg 3) Nausea, vomiting, abdominal pain and diarrhea: due to bowel gangrene -CT - bowels were normal -repeat CT w contrast showed multiple non distended small and large bowel loops ? ileus, no evidence of colitis or enteritis 4) Hypertensive urgency 5) Vaginal bleeding: from fibroids. CT showed uterine fibroids, 2.3 c left ovarian cyst. 6) Right liver lesion ? hemangioma. Viral hep neg 7) Small pericardial effusion 8) EMMA - worsening 9) Severe anemia: prob from fibroids Recommendations: -continue meropenem and fluconazole for now- D4/10 -f/u CHELSEA, ANCA, C3/C4 -f/u path Thanks for consultation Rachel Bryant MD Subjective Date of service: 07/08/17 Principal diagnosis: Post-Op Resp Failure on MVS; Ischemic Bowel s/p Ex-Lap; EMMA Interval history: sedated on the vent, no fever, no need for pressors Micro: Blood cx 5/ ngtd Urine cx: 07/03 10-100K mixed bacteria Tracheal asp : / ngtd Abx: Meropenem / Fluconazole 5/ Previous Abx: Zosyn Levaquin Flagyl Vanco Objective - Exam Narrative Exam: Alert intubated on the vent JULIANN, clear OP Neck no LN Lungs CTA sanchez CV tachy Abd soft +surg wound VAC with dressings Ext no edema Skin no rash Neuro sedated - Constitutional Vitals: Vital Signs Temp Pulse Resp BP Pulse Ox 98.9 F 98 H 18 165/91 99 07/08/17 12:00 07/08/17 12:06 07/08/17 10:15 07/08/17 12:06 05/06/18 12:00 Temperature -Last 24 Hours Temperature 98.9 F Temperature 98.3 F Temperature 99.0 F Temperature 99.1 F Temperature 98.6 F - Labs CBC & Chem 7: 07/08/17 04:22 07/08/17 04:22 Labs: Abnormal lab results 07/08/17 07/08/17 07/08/17 Range/Units 04:22 04:22 04:22 WBC 21.3 H (4.5-11.0) K/mm3 Hgb 8.9 L (10.1-14.3) gm/dl Hct 27.5 L (30.3-42.9) % MCV 71 L (79-97) fl MCH 23 L (28-32) pg RDW 35.0 H (13.2-15.2) % POC ABG pO2 (80-105) Carbon Dioxide 18 L (22-30) mmol/L BUN 56 H (7-17) mg/dL Creatinine 4.3 H (0.7-1.2) mg/dL Glucose 110 H (65-100) mg/dL POC Glucose (70-105) Calcium 8.3 L (8.4-10.2) mg/dL Phosphorus 4.80 H (2.5-4.5) mg/dL Magnesium 2.60 H (1.7-2.3) mg/dL 07/08/17 07/08/17 Range/Units 05:40 12:36 WBC (4.5-11.0) K/mm3 Hgb (10.1-14.3) gm/dl Hct (30.3-42.9) % MCV (79-97) fl MCH (28-32) pg RDW (13.2-15.2) % POC ABG pO2 158 H (80-105) Carbon Dioxide (22-30) mmol/L BUN (7-17) mg/dL Creatinine (0.7-1.2) mg/dL Glucose (65-100) mg/dL POC Glucose 109 H (70-105) Calcium (8.4-10.2) mg/dL Phosphorus (2.5-4.5) mg/dL Magnesium (1.7-2.3) mg/dL
--- NOTE | 2017-07-08 17:11 | Progress Note ---
Assessment and Plan Postoperative respiratory failure, now on mechanical ventilatory support Sepsis syndrome. Ischemic bowel, possibly secondary to embolic event vs related to drug abuse H/O Cocaine use with possibility of arterial spasm. Acute kidney injury. Leukocytosis. Uncontrolled hypertension. Severe anemia. Drug abuse. Alcohol abuse - continue full AC support acutely - continue daily SAT's - Daily SBT's to begin after OR interventions - continue anti-infectives per ID recs - keep NPO - continue TPN per surgery - continue GI & VTE prophylaxis - gentle hydration - azotemia per nephrology (non-oliguric now) - GI & VTE prophylaxis - flu & pneumovax per protocol ...35' CCT Subjective Date of service: 07/08/17 Principal diagnosis: Post-Op Resp Failure on MVS; Ischemic Bowel s/p Ex-Lap; EMMA Interval history: Patient is seen today for: Post-Op Resp Failure on MVS; Ischemic Bowel s/p Ex- Lap; EMMA Seen and examined at bedside; 24hour events reviewed; nursing and respiratory care staff consulted; no adverse overnight events reported to me; resting peacefully; remains on MVS; to go to OR today; sedated; denied acute chest pains ; No N/V/F/C Objective Vital Signs - 12hr 07/08/17 07/08/17 07/08/17 05:15 05:27 05:30 Temperature Pulse Rate 92 H 106 H 99 H Respiratory 11 L 18 Rate Blood Pressure 158/87 133/77 138/90 O2 Sat by Pulse 100 100 100 Oximetry 07/08/17 07/08/17 07/08/17 05:45 06:00 06:15 Temperature Pulse Rate 101 H 93 H 94 H Respiratory 18 18 18 Rate Blood Pressure 142/87 140/77 130/74 O2 Sat by Pulse 100 100 100 Oximetry 07/08/17 07/08/17 07/08/17 06:30 06:45 07:00 Temperature Pulse Rate 85 84 80 Respiratory 18 18 18 Rate Blood Pressure 129/66 136/70 136/71 O2 Sat by Pulse 100 100 100 Oximetry 07/08/17 07/08/17 07/08/17 07:15 07:30 07:45 Temperature Pulse Rate 87 83 79 Respiratory 18 18 18 Rate Blood Pressure 153/78 148/80 151/75 O2 Sat by Pulse 100 100 100 Oximetry 07/08/17 07/08/17 07/08/17 08:00 08:15 08:30 Temperature 98.3 F Pulse Rate 83 88 87 Respiratory 18 18 18 Rate Blood Pressure 150/78 168/87 161/92 O2 Sat by Pulse 100 100 100 Oximetry 07/08/17 07/08/17 07/08/17 08:45 09:00 09:15 Temperature Pulse Rate 88 80 84 Respiratory 18 18 18 Rate Blood Pressure 149/90 161/83 154/84 O2 Sat by Pulse 100 100 100 Oximetry 07/08/17 07/08/17 07/08/17 09:30 09:45 10:00 Temperature Pulse Rate 83 82 82 Respiratory 18 18 18 Rate Blood Pressure 158/87 154/88 147/84 O2 Sat by Pulse 100 100 100 Oximetry 07/08/17 07/08/17 07/08/17 10:15 10:30 10:45 Temperature Pulse Rate 92 H 86 82 Respiratory 18 18 18 Rate Blood Pressure 155/80 163/79 163/79 O2 Sat by Pulse 100 100 100 Oximetry 07/08/17 07/08/17 07/08/17 11:00 11:15 11:30 Temperature Pulse Rate 85 81 83 Respiratory 18 18 18 Rate Blood Pressure 167/83 164/81 174/89 O2 Sat by Pulse 100 100 100 Oximetry 07/08/17 07/08/17 07/08/17 11:45 12:00 12:06 Temperature 98.9 F Pulse Rate 100 H 99 H 98 H Respiratory 18 18 Rate Blood Pressure 172/96 165/91 165/91 O2 Sat by Pulse 92 100 Oximetry 07/08/17 07/08/17 07/08/17 12:15 12:30 12:45 Temperature Pulse Rate 110 H 116 H 120 H Respiratory 18 18 18 Rate Blood Pressure 158/84 144/84 145/78 O2 Sat by Pulse 100 99 99 Oximetry 07/08/17 07/08/17 07/08/17 13:00 13:15 13:30 Temperature Pulse Rate 118 H 116 H 109 H Respiratory 18 18 18 Rate Blood Pressure 147/79 134/76 126/70 O2 Sat by Pulse 99 99 99 Oximetry 07/08/17 07/08/17 07/08/17 13:45 14:00 14:15 Temperature Pulse Rate 106 H 104 H 103 H Respiratory 18 18 18 Rate Blood Pressure 124/73 126/67 135/75 O2 Sat by Pulse 100 100 100 Oximetry 07/08/17 07/08/17 07/08/17 14:30 14:45 15:00 Temperature Pulse Rate 102 H 102 H 100 H Respiratory 18 18 18 Rate Blood Pressure 127/74 131/75 133/76 O2 Sat by Pulse 100 100 100 Oximetry 07/08/17 07/08/17 07/08/17 15:15 15:30 15:45 Temperature Pulse Rate 101 H 100 H 99 H Respiratory 18 18 18 Rate Blood Pressure 132/78 133/78 129/76 O2 Sat by Pulse 100 100 100 Oximetry 07/08/17 07/08/17 16:00 16:57 Temperature Pulse Rate 98 H 98 H Respiratory 18 Rate Blood Pressure 131/76 141/80 O2 Sat by Pulse 100 100 Oximetry Constitutional: no acute distress, other (sedated) Eyes: non-icteric ENT: oropharynx moist, other (ETT 23 cm IVA) Neck: supple, no lymphadenopathy, other (no thyromegaly) Effort: mildly labored Ascultation: Bilateral: diminished breath sounds (bases), rhonchi Percussion: Bilateral: not dull Cardiovascular: regular rate and rhythm, other (No R/M) Gastrointestinal: hypoactive bowel sounds, non-tender, non-distended, other (no palpable HSM) Integumentary: normal Extremities: no cyanosis, no edema, pulses normal, no ischemia or petechiae Neurologic: normal mental status, non-focal exam, pupils equal and round, CN II- XII normal Psychiatric: mood appropriate, affect normal CBC and BMP: 07/08/17 04:22 07/09/17 04:30 ABG, PT/INR, D-dimer: ABG POC ABG pH 7.374 (7.35-7.45) 07/08/17 05:40 POC ABG pCO2 39.0 (35-45) 07/08/17 05:40 POC ABG pO2 158 (80-105) H 07/08/17 05:40 POC ABG HCO3 22.7 07/08/17 05:40 POC ABG Total CO2 24 07/08/17 05:40 POC ABG O2 Sat 99 07/08/17 05:40 PT/INR, D-dimer PT 12.5 Sec. (12.2-14.9) 07/03/17 06:19 INR 0.89 (0.87-1.13) 07/03/17 06:19 Abnormal lab findings: Abnormal Labs 07/03/17 07/03/17 07/03/17 05:11 05:28 05:28 WBC 12.9 H Hgb 5.6 L* Hct 22.3 L MCV 59 L MCH 15 L MCHC 25 L RDW 33.3 H Plt Count 125 L Seg Neuts % (Manual) 75.0 H Lymphocytes % (Manual) Seg Neutrophils # Man 9.7 H Lymphocytes # (Manual) Monocytes # (Manual) POC ABG pH POC ABG pCO2 POC ABG pO2 Sodium Potassium 3.0 L Chloride Carbon Dioxide BUN Creatinine 0.6 L Glucose 220 H POC Glucose 188 H Lactic Acid Calcium Phosphorus Magnesium Iron TIBC Transferrin C-Reactive Protein PTH Intact Urine WBC (Auto) Urine Creatinine Urine Microalbumin Urine Total Protein Crossmatch 07/03/17 07/03/17 07/03/17 06:19 06:35 08:42 WBC Hgb Hct MCV MCH MCHC RDW Plt Count Seg Neuts % (Manual) Lymphocytes % (Manual) Seg Neutrophils # Man Lymphocytes # (Manual) Monocytes # (Manual) POC ABG pH POC ABG pCO2 POC ABG pO2 Sodium Potassium Chloride Carbon Dioxide BUN Creatinine Glucose POC Glucose Lactic Acid 2.50 H* 2.20 H* Calcium Phosphorus Magnesium Iron TIBC Transferrin C-Reactive Protein PTH Intact Urine WBC (Auto) Urine Creatinine Urine Microalbumin Urine Total Protein Crossmatch See Detail 07/03/17 07/03/17 07/03/17 09:31 09:31 11:50 WBC Hgb 5.7 L* Hct 22.4 L MCV MCH MCHC RDW Plt Count Seg Neuts % (Manual) Lymphocytes % (Manual) Seg Neutrophils # Man Lymphocytes # (Manual) Monocytes # (Manual) POC ABG pH POC ABG pCO2 POC ABG pO2 Sodium Potassium Chloride Carbon Dioxide BUN Creatinine Glucose POC Glucose Lactic Acid 2.80 H* Calcium Phosphorus Magnesium Iron 12 L TIBC 534 H Transferrin C-Reactive Protein PTH Intact Urine WBC (Auto) Urine Creatinine Urine Microalbumin Urine Total Protein Crossmatch 07/03/17 07/03/17 07/03/17 16:50 16:50 Unknown WBC Hgb 9.7 L D Hct MCV MCH MCHC RDW Plt Count Seg Neuts % (Manual) Lymphocytes % (Manual) Seg Neutrophils # Man Lymphocytes # (Manual) Monocytes # (Manual) POC ABG pH POC ABG pCO2 POC ABG pO2 Sodium Potassium Chloride Carbon Dioxide BUN Creatinine Glucose POC Glucose Lactic Acid 2.30 H* Calcium Phosphorus Magnesium Iron TIBC Transferrin C-Reactive Protein PTH Intact Urine WBC (Auto) 18.0 H Urine Creatinine Urine Microalbumin Urine Total Protein Crossmatch 07/04/17 07/04/17 07/04/17 03:57 03:57 04:39 WBC 42.4 H* 42.8 H* Hgb 9.1 L 9.3 L Hct MCV 65 L 66 L MCH 19 L 20 L MCHC 29 L RDW 37.3 H 37.3 H Plt Count 120 L Seg Neuts % (Manual) 93.5 H Lymphocytes % (Manual) 2.5 L Seg Neutrophils # Man 40.0 H Lymphocytes # (Manual) 1.1 L Monocytes # (Manual) 1.1 H POC ABG pH POC ABG pCO2 POC ABG pO2 Sodium 134 L Potassium 3.5 L Chloride 95.4 L Carbon Dioxide 21 L BUN 6 L Creatinine 0.5 L Glucose 147 H POC Glucose Lactic Acid Calcium 7.9 L Phosphorus Magnesium Iron TIBC Transferrin C-Reactive Protein PTH Intact Urine WBC (Auto) Urine Creatinine Urine Microalbumin Urine Total Protein Crossmatch 07/04/17 07/04/17 07/05/17 12:09 17:11 08:21 WBC 56.3 H* Hgb 8.3 L Hct 29.1 L MCV 66 L MCH 19 L MCHC 28 L RDW 38.3 H Plt Count Seg Neuts % (Manual) 96.5 H Lymphocytes % (Manual) 1.0 L Seg Neutrophils # Man 54.3 H Lymphocytes # (Manual) 0.6 L Monocytes # (Manual) 1.4 H POC ABG pH POC ABG pCO2 POC ABG pO2 Sodium Potassium Chloride Carbon Dioxide BUN Creatinine Glucose POC Glucose 169 H 124 H Lactic Acid Calcium Phosphorus Magnesium Iron TIBC Transferrin C-Reactive Protein PTH Intact Urine WBC (Auto) Urine Creatinine Urine Microalbumin Urine Total Protein Crossmatch 07/05/17 07/05/17 07/05/17 08:21 10:55 22:34 WBC Hgb Hct MCV MCH MCHC RDW Plt Count Seg Neuts % (Manual) Lymphocytes % (Manual) Seg Neutrophils # Man Lymphocytes # (Manual) Monocytes # (Manual) POC ABG pH 7.185 L POC ABG pCO2 33.8 L POC ABG pO2 Sodium 135 L 135 L Potassium Chloride Carbon Dioxide 18 L 16 L BUN 25 H 27 H Creatinine 2.7 H D 2.9 H Glucose 115 H 119 H POC Glucose Lactic Acid Calcium 7.9 L 8.0 L Phosphorus Magnesium Iron TIBC Transferrin C-Reactive Protein PTH Intact Urine WBC (Auto) Urine Creatinine Urine Microalbumin Urine Total Protein Crossmatch 07/05/17 07/06/17 07/06/17 Unknown 05:17 07:28 WBC Hgb Hct MCV MCH MCHC RDW Plt Count Seg Neuts % (Manual) Lymphocytes % (Manual) Seg Neutrophils # Man Lymphocytes # (Manual) Monocytes # (Manual) POC ABG pH POC ABG pCO2 28.0 L POC ABG pO2 193 H Sodium Potassium Chloride 112.6 H Carbon Dioxide 15 L BUN 35 H Creatinine 4.0 H Glucose POC Glucose Lactic Acid Calcium 5.8 L* D Phosphorus Magnesium 1.20 L Iron TIBC Transferrin 148 L C-Reactive Protein PTH Intact Urine WBC (Auto) Urine Creatinine 237.2 H Urine Microalbumin 39.9 H Urine Total Protein 170 H Crossmatch 07/06/17 07/06/17 07/06/17 07:28 07:28 10:27 WBC 28.9 H Hgb 7.1 L Hct 24.5 L MCV 66 L MCH 19 L MCHC 29 L RDW 38.6 H Plt Count Seg Neuts % (Manual) Lymphocytes % (Manual) Seg Neutrophils # Man Lymphocytes # (Manual) Monocytes # (Manual) POC ABG pH POC ABG pCO2 POC ABG pO2 Sodium Potassium Chloride Carbon Dioxide BUN Creatinine Glucose POC Glucose Lactic Acid Calcium Phosphorus Magnesium Iron TIBC Transferrin C-Reactive Protein PTH Intact 285.9 H Urine WBC (Auto) Urine Creatinine Urine Microalbumin Urine Total Protein Crossmatch See Detail 07/06/17 07/07/17 07/07/17 18:08 04:18 05:59 WBC 24.9 H Hgb 8.8 L Hct 28.0 L MCV 72 L MCH 23 L MCHC RDW 33.3 H Plt Count Seg Neuts % (Manual) Lymphocytes % (Manual) Seg Neutrophils # Man Lymphocytes # (Manual) Monocytes # (Manual) POC ABG pH POC ABG pCO2 27.5 L POC ABG pO2 61 L Sodium Potassium Chloride Carbon Dioxide BUN Creatinine Glucose POC Glucose Lactic Acid Calcium Phosphorus Magnesium Iron TIBC Transferrin C-Reactive Protein 26.20 H PTH Intact Urine WBC (Auto) Urine Creatinine Urine Microalbumin Urine Total Protein Crossmatch 07/07/17 07/07/17 07/08/17 05:59 05:59 04:22 WBC 21.3 H Hgb 8.9 L Hct 27.5 L MCV 71 L MCH 23 L MCHC RDW 35.0 H Plt Count Seg Neuts % (Manual) Lymphocytes % (Manual) Seg Neutrophils # Man Lymphocytes # (Manual) Monocytes # (Manual) POC ABG pH POC ABG pCO2 POC ABG pO2 Sodium Potassium Chloride Carbon Dioxide 17 L BUN 46 H Creatinine 4.8 H Glucose 103 H POC Glucose Lactic Acid Calcium 7.6 L D Phosphorus Magnesium 2.50 H Iron TIBC Transferrin C-Reactive Protein PTH Intact Urine WBC (Auto) Urine Creatinine Urine Microalbumin Urine Total Protein Crossmatch 07/08/17 07/08/17 07/08/17 04:22 04:22 05:40 WBC Hgb Hct MCV MCH MCHC RDW Plt Count Seg Neuts % (Manual) Lymphocytes % (Manual) Seg Neutrophils # Man Lymphocytes # (Manual) Monocytes # (Manual) POC ABG pH POC ABG pCO2 POC ABG pO2 158 H Sodium Potassium Chloride Carbon Dioxide 18 L BUN 56 H Creatinine 4.3 H Glucose 110 H POC Glucose Lactic Acid Calcium 8.3 L Phosphorus 4.80 H Magnesium 2.60 H Iron TIBC Transferrin C-Reactive Protein PTH Intact Urine WBC (Auto) Urine Creatinine Urine Microalbumin Urine Total Protein Crossmatch 07/08/17 12:36 WBC Hgb Hct MCV MCH MCHC RDW Plt Count Seg Neuts % (Manual) Lymphocytes % (Manual) Seg Neutrophils # Man Lymphocytes # (Manual) Monocytes # (Manual) POC ABG pH POC ABG pCO2 POC ABG pO2 Sodium Potassium Chloride Carbon Dioxide BUN Creatinine Glucose POC Glucose 109 H Lactic Acid Calcium Phosphorus Magnesium Iron TIBC Transferrin C-Reactive Protein PTH Intact Urine WBC (Auto) Urine Creatinine Urine Microalbumin Urine Total Protein Crossmatch Allied health notes reviewed: nursing
[2017-07-08] MEDS ORDERED: TPN ADULT 2,400 ML IV SCH (20:00)
[2017-07-09] MEDS: APRESOLINE IV PRN (02:25)
[2017-07-09] MEDS: SODIUM BICARBONATE 150 MEQ in D5W 1,000 ML IV SCH (02:27)
[2017-07-09] MEDS: fentaNYL DRIP Premix 2,000 MCG/100 ML BAG IV SCH ×2 (04:16→18:26)
[2017-07-09 05:45] LABS: Calcium 8.5 mg/dL (8.4-10.2)
[2017-07-09] MEDS: MERREM/NS 500 MG/50 ML 500 MG/50 ML BAG IV SCH (09:32)
[2017-07-09] MEDS: DIFLUCAN 200 MG/100 ML BAG IV SCH (09:32)
[2017-07-09] MEDS: PEPCID IV SCH (09:32)
--- NOTE | 2017-07-09 12:16 | Progress Note ---
Assessment and Plan Severe Sepsis due to Peritonitis: Questionable Liver Hemangioma: ID consulted, on Abx Urine culture showed 10-100,000 mixed culture >2, probably contamination Bowel ischemia with gangrene. s/p Surgery by GS. Hypoxic respiratory failure: -Intubated on Vent -Per ICU Acute Kidney Injury secondary to ATN High Anion Gap Metabolic Acidosis: Hypocalcemia: Cr trending down, UOP improving. will d/c IVF Echo on 07/03/17 showed LVEF 60-65% No hydronephrosis seen on CT ABD/Pelvis IV contrast on 07/04/17 Lisinopril already stopped Obtain daily weight Strict intake and output Reddy Catheter: No Anemia: Vaginal Bleeding: Left simple ovarian cyst: Transfuse PRN per primary Alcohol Use: CIWA protocol Subjective Date of service: 07/09/17 Principal diagnosis: Post-Op Resp Failure on MVS; Ischemic Bowel s/p Ex-Lap; EMMA Interval history: sated and intubated, family at bedside, all questions answered Objective - Vital Signs Vital signs: Vital Signs - 12hr 07/09/17 07/09/17 07/09/17 00:30 00:45 01:00 Temperature Pulse Rate 87 89 96 H Respiratory 18 18 18 Rate Respiratory Rate [abd] Blood Pressure 164/87 168/86 168/86 O2 Sat by Pulse 100 100 100 Oximetry 07/09/17 07/09/17 07/09/17 01:15 01:30 01:45 Temperature Pulse Rate 90 89 87 Respiratory 18 18 18 Rate Respiratory Rate [abd] Blood Pressure 174/89 170/91 158/87 O2 Sat by Pulse 100 100 100 Oximetry 07/09/17 07/09/17 07/09/17 02:00 02:15 02:25 Temperature Pulse Rate 85 84 96 H Respiratory 18 18 Rate Respiratory Rate [abd] Blood Pressure 167/89 171/87 171/87 O2 Sat by Pulse 100 100 Oximetry 07/09/17 07/09/17 07/09/17 02:30 02:45 03:00 Temperature Pulse Rate 101 H 108 H 110 H Respiratory 18 18 18 Rate Respiratory Rate [abd] Blood Pressure 143/75 145/75 142/85 O2 Sat by Pulse 100 99 100 Oximetry 07/09/17 07/09/17 07/09/17 03:15 03:30 03:44 Temperature Pulse Rate 114 H 113 H 113 H Respiratory 18 18 Rate Respiratory Rate [abd] Blood Pressure 140/78 148/77 148/77 O2 Sat by Pulse 99 98 97 Oximetry 07/09/17 07/09/17 07/09/17 03:45 04:00 04:15 Temperature 99.0 F Pulse Rate 112 H 106 H 101 H Respiratory 18 18 18 Rate Respiratory Rate [abd] Blood Pressure 125/69 130/68 114/65 O2 Sat by Pulse 98 98 98 Oximetry 07/09/17 07/09/17 07/09/17 04:30 04:45 05:00 Temperature Pulse Rate 99 H 109 H 115 H Respiratory 18 18 19 Rate Respiratory Rate [abd] Blood Pressure 122/68 147/74 145/69 O2 Sat by Pulse 99 99 98 Oximetry 07/09/17 07/09/17 07/09/17 05:15 05:30 05:45 Temperature Pulse Rate 109 H 107 H 102 H Respiratory 18 18 18 Rate Respiratory Rate [abd] Blood Pressure 138/76 139/82 122/79 O2 Sat by Pulse 100 99 99 Oximetry 07/09/17 07/09/17 07/09/17 06:00 06:15 06:30 Temperature Pulse Rate 100 H 96 H 95 H Respiratory 18 18 18 Rate Respiratory Rate [abd] Blood Pressure 125/77 130/77 137/78 O2 Sat by Pulse 99 99 99 Oximetry 07/09/17 07/09/17 07/09/17 06:45 07:00 07:15 Temperature Pulse Rate 93 H 90 87 Respiratory 18 18 18 Rate Respiratory Rate [abd] Blood Pressure 129/76 129/77 125/78 O2 Sat by Pulse 99 99 99 Oximetry 07/09/17 07/09/17 07/09/17 07:30 07:40 07:45 Temperature Pulse Rate 92 H 98 H 104 H Respiratory 18 18 Rate Respiratory Rate [abd] Blood Pressure 138/81 138/81 150/89 O2 Sat by Pulse 99 100 99 Oximetry 07/09/17 07/09/17 07/09/17 07:56 08:00 08:15 Temperature 100.0 F H Pulse Rate 94 H 91 H Respiratory 18 18 18 Rate Respiratory Rate [abd] Blood Pressure 143/80 150/86 156/86 O2 Sat by Pulse 100 100 100 Oximetry 07/09/17 07/09/17 07/09/17 08:30 08:45 09:00 Temperature Pulse Rate 89 91 H 87 Respiratory 18 18 18 Rate Respiratory Rate [abd] Blood Pressure 136/80 135/75 134/82 O2 Sat by Pulse 100 99 99 Oximetry 07/09/17 07/09/17 07/09/17 09:15 09:30 09:45 Temperature Pulse Rate 87 86 88 Respiratory 18 18 18 Rate Respiratory Rate [abd] Blood Pressure 143/85 149/86 162/90 O2 Sat by Pulse 100 100 99 Oximetry 07/09/17 07/09/17 09:59 10:00 Temperature Pulse Rate 89 Respiratory 18 Rate Respiratory 15 Rate [abd] Blood Pressure 163/87 O2 Sat by Pulse 100 Oximetry - General Appearance General appearance: sedated on ventilator, intubated EENT: mucous membranes dry Neck: no JVD Respiratory: Present: Rales, Decreased Breath Sounds Cardiology: tachycardia Gastrointestinal: normoactive bowel sounds, no tenderness, no distended Integumentary: no rash, warm and dry Neurologic: other (sedated) Musculoskeletal: other (trace pitting edema in BLE) Psychiatric: other (intubated) - Lab 07/08/17 04:22 07/09/17 04:30 Most recent lab results Calcium 8.5 mg/dL (8.4-10.2) 07/09/17 04:30 Phosphorus 4.80 mg/dL (2.5-4.5) H 07/09/17 04:30 Magnesium 2.10 mg/dL (1.7-2.3) 07/09/17 04:30 Urine Creatinine 237.2 mg/dL (0.1-20.0) H 07/05/17 Unknown Urine Sodium 18 mmol/L 07/05/17 Unknown Urine Total Protein 170 mg/dL (5-11.8) H 07/05/17 Unknown
--- NOTE | 2017-07-09 12:23 | Anesthesia Day of Surgery ---
Anesthesia Day of Surgery - Day of Surgery Patient Examined: Yes Patient H&P Reviewed: Yes Patient is NPO: Yes
[2017-07-09] MEDS ORDERED: NACL 0.9% IR ONE ×2 (12:50)
[2017-07-09] MEDS ORDERED: VERSED ONE (12:57)
[2017-07-09] MEDS ORDERED: ZEMURON IV ONE ×2 (13:00→13:40)
[2017-07-09] MEDS ORDERED: NACL 0.9% 100 ML ONE (13:02)
--- NOTE | 2017-07-09 13:24 | Progress Note ---
Assessment and Plan Postoperative respiratory failure, now on mechanical ventilatory support Sepsis syndrome. Ischemic bowel, possibly secondary to embolic event vs related to drug abuse H/O Cocaine use with possibility of arterial spasm. Acute kidney injury. Leukocytosis. Uncontrolled hypertension. Severe anemia. Drug abuse. Alcohol abuse - continue full AC support acutely - continue daily SAT's - Daily SBT's to begin after OR interventions (in am hopefully) - continue anti-infectives per ID recs - keep NPO - continue TPN per surgery - continue GI & VTE prophylaxis - gentle hydration - azotemia per nephrology (non-oliguric now) - GI & VTE prophylaxis - flu & pneumovax per protocol ...30' CCT Subjective Date of service: 07/09/17 Principal diagnosis: Post-Op Resp Failure on MVS; Ischemic Bowel s/p Ex-Lap; MEMA Interval history: Patient is seen today for: Post-Op Resp Failure on MVS; Ischemic Bowel s/p Ex- Lap; EMMA Seen and examined at bedside; 24hour events reviewed; nursing and respiratory care staff consulted; no adverse overnight events reported to me; resting peacefully; to OR today for abdominal wound closure; Appropriate during sedation vacations; remains on TPN; no N/V/F/C; good pain control Objective Vital Signs - 12hr 07/09/17 07/09/17 07/09/17 01:30 01:45 02:00 Temperature Pulse Rate 89 87 85 Respiratory 18 18 18 Rate Respiratory Rate [abd] Blood Pressure 170/91 158/87 167/89 O2 Sat by Pulse 100 100 100 Oximetry 07/09/17 07/09/17 07/09/17 02:15 02:25 02:30 Temperature Pulse Rate 84 96 H 101 H Respiratory 18 18 Rate Respiratory Rate [abd] Blood Pressure 171/87 171/87 143/75 O2 Sat by Pulse 100 100 Oximetry 07/09/17 07/09/17 07/09/17 02:45 03:00 03:15 Temperature Pulse Rate 108 H 110 H 114 H Respiratory 18 18 18 Rate Respiratory Rate [abd] Blood Pressure 145/75 142/85 140/78 O2 Sat by Pulse 99 100 99 Oximetry 07/09/17 07/09/17 07/09/17 03:30 03:44 03:45 Temperature Pulse Rate 113 H 113 H 112 H Respiratory 18 18 Rate Respiratory Rate [abd] Blood Pressure 148/77 148/77 125/69 O2 Sat by Pulse 98 97 98 Oximetry 07/09/17 07/09/17 07/09/17 04:00 04:15 04:30 Temperature 99.0 F Pulse Rate 106 H 101 H 99 H Respiratory 18 18 18 Rate Respiratory Rate [abd] Blood Pressure 130/68 114/65 122/68 O2 Sat by Pulse 98 98 99 Oximetry 07/09/17 07/09/17 07/09/17 04:45 05:00 05:15 Temperature Pulse Rate 109 H 115 H 109 H Respiratory 18 19 18 Rate Respiratory Rate [abd] Blood Pressure 147/74 145/69 138/76 O2 Sat by Pulse 99 98 100 Oximetry 07/09/17 07/09/17 07/09/17 05:30 05:45 06:00 Temperature Pulse Rate 107 H 102 H 100 H Respiratory 18 18 18 Rate Respiratory Rate [abd] Blood Pressure 139/82 122/79 125/77 O2 Sat by Pulse 99 99 99 Oximetry 07/09/17 07/09/17 07/09/17 06:15 06:30 06:45 Temperature Pulse Rate 96 H 95 H 93 H Respiratory 18 18 18 Rate Respiratory Rate [abd] Blood Pressure 130/77 137/78 129/76 O2 Sat by Pulse 99 99 99 Oximetry 07/09/17 07/09/17 07/09/17 07:00 07:15 07:30 Temperature Pulse Rate 90 87 92 H Respiratory 18 18 18 Rate Respiratory Rate [abd] Blood Pressure 129/77 125/78 138/81 O2 Sat by Pulse 99 99 99 Oximetry 07/09/17 07/09/17 07/09/17 07:40 07:45 07:56 Temperature 100.0 F H Pulse Rate 98 H 104 H Respiratory 18 18 Rate Respiratory Rate [abd] Blood Pressure 138/81 150/89 143/80 O2 Sat by Pulse 100 99 100 Oximetry 07/09/17 07/09/17 07/09/17 08:00 08:15 08:30 Temperature Pulse Rate 94 H 91 H 89 Respiratory 18 18 18 Rate Respiratory Rate [abd] Blood Pressure 150/86 156/86 136/80 O2 Sat by Pulse 100 100 100 Oximetry 07/09/17 07/09/17 07/09/17 08:45 09:00 09:15 Temperature Pulse Rate 91 H 87 87 Respiratory 18 18 18 Rate Respiratory Rate [abd] Blood Pressure 135/75 134/82 143/85 O2 Sat by Pulse 99 99 100 Oximetry 07/09/17 07/09/17 07/09/17 09:30 09:45 09:59 Temperature Pulse Rate 86 88 Respiratory 18 18 Rate Respiratory 15 Rate [abd] Blood Pressure 149/86 162/90 O2 Sat by Pulse 100 99 Oximetry 07/09/17 07/09/17 07/09/17 10:00 10:15 10:30 Temperature Pulse Rate 89 93 H 90 Respiratory 18 18 18 Rate Respiratory Rate [abd] Blood Pressure 163/87 165/89 164/90 O2 Sat by Pulse 100 100 100 Oximetry 07/09/17 07/09/17 07/09/17 10:45 11:00 11:15 Temperature Pulse Rate 93 H 91 H 90 Respiratory 18 18 18 Rate Respiratory Rate [abd] Blood Pressure 164/87 161/87 163/88 O2 Sat by Pulse 99 100 99 Oximetry 07/09/17 07/09/17 07/09/17 11:30 11:45 12:00 Temperature Pulse Rate 93 H 91 H 91 H Respiratory 18 18 18 Rate Respiratory Rate [abd] Blood Pressure 161/90 176/91 156/89 O2 Sat by Pulse 99 99 99 Oximetry 07/09/17 12:15 Temperature Pulse Rate 92 H Respiratory 18 Rate Respiratory Rate [abd] Blood Pressure 168/90 O2 Sat by Pulse 99 Oximetry Constitutional: no acute distress, other (sedated) Eyes: non-icteric ENT: oropharynx moist, other (ETT 23 cm IVA) Neck: supple, no lymphadenopathy, other (no thyromegaly) Effort: mildly labored Ascultation: Bilateral: diminished breath sounds (bases), rhonchi Percussion: Bilateral: not dull Cardiovascular: regular rate and rhythm, other (No R/M) Gastrointestinal: hypoactive bowel sounds, non-tender, non-distended, other (no palpable HSM) Integumentary: normal Extremities: no cyanosis, no edema, pulses normal, no ischemia or petechiae Neurologic: normal mental status, non-focal exam, pupils equal and round, CN II- XII normal Psychiatric: mood appropriate, affect normal CBC and BMP: 07/10/17 05:30 07/10/17 05:30 ABG, PT/INR, D-dimer: ABG POC ABG pH 7.522 (7.35-7.45) H 07/09/17 04:51 POC ABG pCO2 38.6 (35-45) 07/09/17 04:51 POC ABG pO2 67 (80-105) L 07/09/17 04:51 POC ABG HCO3 31.7 07/09/17 04:51 POC ABG Total CO2 33 07/09/17 04:51 POC ABG O2 Sat 95 07/09/17 04:51 PT/INR, D-dimer PT 12.5 Sec. (12.2-14.9) 07/03/17 06:19 INR 0.89 (0.87-1.13) 07/03/17 06:19 Abnormal lab findings: Abnormal Labs 07/03/17 07/03/17 07/03/17 05:11 05:28 05:28 WBC 12.9 H Hgb 5.6 L* Hct 22.3 L MCV 59 L MCH 15 L MCHC 25 L RDW 33.3 H Plt Count 125 L Seg Neuts % (Manual) 75.0 H Lymphocytes % (Manual) Seg Neutrophils # Man 9.7 H Lymphocytes # (Manual) Monocytes # (Manual) POC ABG pH POC ABG pCO2 POC ABG pO2 Sodium Potassium 3.0 L Chloride Carbon Dioxide BUN Creatinine 0.6 L Glucose 220 H POC Glucose 188 H Lactic Acid Calcium Phosphorus Magnesium Iron TIBC Transferrin C-Reactive Protein PTH Intact Urine WBC (Auto) Urine Creatinine Urine Microalbumin Urine Total Protein Crossmatch 07/03/17 07/03/17 07/03/17 06:19 06:35 08:42 WBC Hgb Hct MCV MCH MCHC RDW Plt Count Seg Neuts % (Manual) Lymphocytes % (Manual) Seg Neutrophils # Man Lymphocytes # (Manual) Monocytes # (Manual) POC ABG pH POC ABG pCO2 POC ABG pO2 Sodium Potassium Chloride Carbon Dioxide BUN Creatinine Glucose POC Glucose Lactic Acid 2.50 H* 2.20 H* Calcium Phosphorus Magnesium Iron TIBC Transferrin C-Reactive Protein PTH Intact Urine WBC (Auto) Urine Creatinine Urine Microalbumin Urine Total Protein Crossmatch See Detail 07/03/17 07/03/17 07/03/17 09:31 09:31 11:50 WBC Hgb 5.7 L* Hct 22.4 L MCV MCH MCHC RDW Plt Count Seg Neuts % (Manual) Lymphocytes % (Manual) Seg Neutrophils # Man Lymphocytes # (Manual) Monocytes # (Manual) POC ABG pH POC ABG pCO2 POC ABG pO2 Sodium Potassium Chloride Carbon Dioxide BUN Creatinine Glucose POC Glucose Lactic Acid 2.80 H* Calcium Phosphorus Magnesium Iron 12 L TIBC 534 H Transferrin C-Reactive Protein PTH Intact Urine WBC (Auto) Urine Creatinine Urine Microalbumin Urine Total Protein Crossmatch 07/03/17 07/03/17 07/03/17 16:50 16:50 Unknown WBC Hgb 9.7 L D Hct MCV MCH MCHC RDW Plt Count Seg Neuts % (Manual) Lymphocytes % (Manual) Seg Neutrophils # Man Lymphocytes # (Manual) Monocytes # (Manual) POC ABG pH POC ABG pCO2 POC ABG pO2 Sodium Potassium Chloride Carbon Dioxide BUN Creatinine Glucose POC Glucose Lactic Acid 2.30 H* Calcium Phosphorus Magnesium Iron TIBC Transferrin C-Reactive Protein PTH Intact Urine WBC (Auto) 18.0 H Urine Creatinine Urine Microalbumin Urine Total Protein Crossmatch 07/04/17 07/04/17 07/04/17 03:57 03:57 04:39 WBC 42.4 H* 42.8 H* Hgb 9.1 L 9.3 L Hct MCV 65 L 66 L MCH 19 L 20 L MCHC 29 L RDW 37.3 H 37.3 H Plt Count 120 L Seg Neuts % (Manual) 93.5 H Lymphocytes % (Manual) 2.5 L Seg Neutrophils # Man 40.0 H Lymphocytes # (Manual) 1.1 L Monocytes # (Manual) 1.1 H POC ABG pH POC ABG pCO2 POC ABG pO2 Sodium 134 L Potassium 3.5 L Chloride 95.4 L Carbon Dioxide 21 L BUN 6 L Creatinine 0.5 L Glucose 147 H POC Glucose Lactic Acid Calcium 7.9 L Phosphorus Magnesium Iron TIBC Transferrin C-Reactive Protein PTH Intact Urine WBC (Auto) Urine Creatinine Urine Microalbumin Urine Total Protein Crossmatch 07/04/17 07/04/17 07/05/17 12:09 17:11 08:21 WBC 56.3 H* Hgb 8.3 L Hct 29.1 L MCV 66 L MCH 19 L MCHC 28 L RDW 38.3 H Plt Count Seg Neuts % (Manual) 96.5 H Lymphocytes % (Manual) 1.0 L Seg Neutrophils # Man 54.3 H Lymphocytes # (Manual) 0.6 L Monocytes # (Manual) 1.4 H POC ABG pH POC ABG pCO2 POC ABG pO2 Sodium Potassium Chloride Carbon Dioxide BUN Creatinine Glucose POC Glucose 169 H 124 H Lactic Acid Calcium Phosphorus Magnesium Iron TIBC Transferrin C-Reactive Protein PTH Intact Urine WBC (Auto) Urine Creatinine Urine Microalbumin Urine Total Protein Crossmatch 07/05/17 07/05/17 07/05/17 08:21 10:55 22:34 WBC Hgb Hct MCV MCH MCHC RDW Plt Count Seg Neuts % (Manual) Lymphocytes % (Manual) Seg Neutrophils # Man Lymphocytes # (Manual) Monocytes # (Manual) POC ABG pH 7.185 L POC ABG pCO2 33.8 L POC ABG pO2 Sodium 135 L 135 L Potassium Chloride Carbon Dioxide 18 L 16 L BUN 25 H 27 H Creatinine 2.7 H D 2.9 H Glucose 115 H 119 H POC Glucose Lactic Acid Calcium 7.9 L 8.0 L Phosphorus Magnesium Iron TIBC Transferrin C-Reactive Protein PTH Intact Urine WBC (Auto) Urine Creatinine Urine Microalbumin Urine Total Protein Crossmatch 07/05/17 07/06/17 07/06/17 Unknown 05:17 07:28 WBC Hgb Hct MCV MCH MCHC RDW Plt Count Seg Neuts % (Manual) Lymphocytes % (Manual) Seg Neutrophils # Man Lymphocytes # (Manual) Monocytes # (Manual) POC ABG pH POC ABG pCO2 28.0 L POC ABG pO2 193 H Sodium Potassium Chloride 112.6 H Carbon Dioxide 15 L BUN 35 H Creatinine 4.0 H Glucose POC Glucose Lactic Acid Calcium 5.8 L* D Phosphorus Magnesium 1.20 L Iron TIBC Transferrin 148 L C-Reactive Protein PTH Intact Urine WBC (Auto) Urine Creatinine 237.2 H Urine Microalbumin 39.9 H Urine Total Protein 170 H Crossmatch 07/06/17 07/06/17 07/06/17 07:28 07:28 10:27 WBC 28.9 H Hgb 7.1 L Hct 24.5 L MCV 66 L MCH 19 L MCHC 29 L RDW 38.6 H Plt Count Seg Neuts % (Manual) Lymphocytes % (Manual) Seg Neutrophils # Man Lymphocytes # (Manual) Monocytes # (Manual) POC ABG pH POC ABG pCO2 POC ABG pO2 Sodium Potassium Chloride Carbon Dioxide BUN Creatinine Glucose POC Glucose Lactic Acid Calcium Phosphorus Magnesium Iron TIBC Transferrin C-Reactive Protein PTH Intact 285.9 H Urine WBC (Auto) Urine Creatinine Urine Microalbumin Urine Total Protein Crossmatch See Detail 07/06/17 07/07/17 07/07/17 18:08 04:18 05:59 WBC 24.9 H Hgb 8.8 L Hct 28.0 L MCV 72 L MCH 23 L MCHC RDW 33.3 H Plt Count Seg Neuts % (Manual) Lymphocytes % (Manual) Seg Neutrophils # Man Lymphocytes # (Manual) Monocytes # (Manual) POC ABG pH POC ABG pCO2 27.5 L POC ABG pO2 61 L Sodium Potassium Chloride Carbon Dioxide BUN Creatinine Glucose POC Glucose Lactic Acid Calcium Phosphorus Magnesium Iron TIBC Transferrin C-Reactive Protein 26.20 H PTH Intact Urine WBC (Auto) Urine Creatinine Urine Microalbumin Urine Total Protein Crossmatch 07/07/17 07/07/17 07/08/17 05:59 05:59 04:22 WBC 21.3 H Hgb 8.9 L Hct 27.5 L MCV 71 L MCH 23 L MCHC RDW 35.0 H Plt Count Seg Neuts % (Manual) Lymphocytes % (Manual) Seg Neutrophils # Man Lymphocytes # (Manual) Monocytes # (Manual) POC ABG pH POC ABG pCO2 POC ABG pO2 Sodium Potassium Chloride Carbon Dioxide 17 L BUN 46 H Creatinine 4.8 H Glucose 103 H POC Glucose Lactic Acid Calcium 7.6 L D Phosphorus Magnesium 2.50 H Iron TIBC Transferrin C-Reactive Protein PTH Intact Urine WBC (Auto) Urine Creatinine Urine Microalbumin Urine Total Protein Crossmatch 07/08/17 07/08/17 07/08/17 04:22 04:22 05:40 WBC Hgb Hct MCV MCH MCHC RDW Plt Count Seg Neuts % (Manual) Lymphocytes % (Manual) Seg Neutrophils # Man Lymphocytes # (Manual) Monocytes # (Manual) POC ABG pH POC ABG pCO2 POC ABG pO2 158 H Sodium Potassium Chloride Carbon Dioxide 18 L BUN 56 H Creatinine 4.3 H Glucose 110 H POC Glucose Lactic Acid Calcium 8.3 L Phosphorus 4.80 H Magnesium 2.60 H Iron TIBC Transferrin C-Reactive Protein PTH Intact Urine WBC (Auto) Urine Creatinine Urine Microalbumin Urine Total Protein Crossmatch 07/08/17 07/09/17 07/09/17 12:36 04:30 04:30 WBC Hgb Hct MCV MCH MCHC RDW Plt Count Seg Neuts % (Manual) Lymphocytes % (Manual) Seg Neutrophils # Man Lymphocytes # (Manual) Monocytes # (Manual) POC ABG pH POC ABG pCO2 POC ABG pO2 Sodium Potassium 3.2 L D Chloride 96.3 L Carbon Dioxide BUN 60 H Creatinine 3.6 H Glucose 115 H POC Glucose 109 H Lactic Acid Calcium Phosphorus 4.80 H Magnesium Iron TIBC Transferrin C-Reactive Protein PTH Intact Urine WBC (Auto) Urine Creatinine Urine Microalbumin Urine Total Protein Crossmatch 07/09/17 07/09/17 04:51 12:26 WBC Hgb Hct MCV MCH MCHC RDW Plt Count Seg Neuts % (Manual) Lymphocytes % (Manual) Seg Neutrophils # Man Lymphocytes # (Manual) Monocytes # (Manual) POC ABG pH 7.522 H POC ABG pCO2 POC ABG pO2 67 L Sodium Potassium Chloride Carbon Dioxide BUN Creatinine Glucose POC Glucose 140 H Lactic Acid Calcium Phosphorus Magnesium Iron TIBC Transferrin C-Reactive Protein PTH Intact Urine WBC (Auto) Urine Creatinine Urine Microalbumin Urine Total Protein Crossmatch Chest x-ray: image reviewed Allied health notes reviewed: nursing
--- NOTE | 2017-07-09 14:14 | Post Anesthesia Evaluation ---
- Post Anesthesia Evaluation Patient Participated: Yes (intubated) Stable Respiratory Function: Yes Nausea/Vomiting: No Temp > 96.8F: Yes Pain Manageable: Yes Adequeate Hydration: Yes Anesthesia Complications: No
--- NOTE | 2017-07-09 14:19 | Progress Note ---
Assessment and Plan Assessment and plan: Patient is a 42-year-old female with no significant past medical history significant for hypertension which she takes lisinopril 10 mg daily. She presents to the hospital complaining of nausea, vomiting vaginal bleeding is likely secondary. Which is normally very heavy. She reports the symptoms started about a day prior to admission was accompanied by diffuse abdominal pain to return and intensity of doing improving. On presentation to the hospital she was noted to have a core temperature of 91.6 with systolic blood pressure off well over 200. She denied any chest pain, but appeared generally uncomfortable. She denied any dysuria or increased frequency. She was unable to quantify the diarrhea. She reports alcohol use but this is limited to the weekend she states that this weekend she drank 2 bottles of wine. chimes in that once in a while she drinks them mixed with beer. 1. Severe Sepsis with worsening Leukocytosis 2. EMMA secondary to vasomotor nephropathy with underlying ATN 3. Peritoneal irritation r/o aortic Dissection 4. Severe Anemia 5. Ischemic/Gangrenous Bowel 6. Worsening luekocytosis 7. Symptomatic Anemia 8. Hypertensive urgency-resolved 9. Menorraghia secondary to Fibroids 10. Etoh use disorder 11. Right liver lesion ?Hemangioma 12. Multiple electrolyte abnormalities 13. Hypothermia-Resolved 14. Cocain abuse per hx. Not mentioned on admission. Only alcohol which was minimized. Plan S/P Resection of ischemia/Gangrenous bowel Plan to return to the OR tomorrow for possible abdominal wound closure. Transfuse as need Question embolic versus cocaine induced. ID concerned about acute enterocolitis considering order of event with onset following [employer] Coordinator input noted, patient with good urinary output despite elevated creatinine. 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 [facility] protocol Counselling for ETOH when more stable Pain control Pelvic ultrasound NOTED. Reddy for accurate Accucheck I/O and Remove in AM. DVT/GI prophy No family at bedside. The high probability of a clinically significant, sudden or life threatening deterioration of the [GI, renal] system(s) required my full and direct attention , intervention and personal management. The aggregate critical care time was [35 ] minutes. This time is in addition to time spent performing reported procedures but includes the following: [X] Data Review and interpretation [X] Patient assessment and monitoring of vital signs [X] Documentation [X] Medication orders and management - Patient Problems (1) Severe sepsis Current Visit: Yes Status: Acute (2) Alcohol abuse Current Visit: Yes Status: Acute (3) Hypertensive urgency, malignant Current Visit: Yes Status: Acute (4) Anemia requiring transfusions Current Visit: Yes Status: Acute (5) Dysfunctional uterine bleeding Current Visit: Yes Status: Acute (6) Fibroids Current Visit: Yes Status: Acute (7) Hypothermia Current Visit: Yes Status: Acute History Interval history: Patient is seen today for: Abdominal pain, sepsis Seen and examined at bedside; 24hour events reviewed; nursing staff ; status post exploratory lap with resection of gangrenous bowel. Now with wound vac in place. Awakens to verbal stimuli. Remains on full ventilatory support. for abdominal wound closure today Hospitalist Physical - Physical exam Narrative exam: VITAL SIGNS: Reviewed. GENERAL: The patient with full mechanical ventilatory support.Vital signs as documented. HEAD: No signs of head trauma. EYES: Pupils are equal. EARS: Hearing grossly intact. MOUTH: ET tube in place NECK: No adenopathy, no JVD. CHEST: Chest with clear breath sounds bilaterally. No wheezes, rales, or rhonchi. CARDIAC: [place]. S1 and S2, without murmurs, gallops, or rubs. VASCULAR: No Edema. Peripheral pulses normal and equal in all extremities. ABDOMEN: Dressing in place open wound. MUSCULOSKELETAL: Extremities without clubbing, cyanosis or edema. NEUROLOGIC EXAM: Awakens to verbal stimuli full exam unable to obtain as patient lives mechanical ventilator. PSYCHIATRIC: Unable to assess SKIN: Open abdominal wound with wound VAC in place - Constitutional Vitals: Temp Pulse Resp BP Pulse Ox 100.0 F H 92 H 18 168/90 99 07/09/17 07:56 07/09/17 12:15 07/09/17 12:15 07/09/17 12:15 07/09/17 12:15 Results - Labs CBC & Chem 7: 07/08/17 04:22 07/09/17 04:30 Labs: Laboratory Last Values WBC 21.3 K/mm3 (4.5-11.0) H 07/08/17 04:22 RBC 3.85 M/mm3 (3.65-5.03) 07/08/17 04:22 Hgb 8.9 gm/dl (10.1-14.3) L 07/08/17 04:22 Hct 27.5 % (30.3-42.9) L 07/08/17 04:22 MCV 71 fl (79-97) L 07/08/17 04:22 MCH 23 pg (28-32) L 07/08/17 04:22 MCHC 32 % (30-34) 07/08/17 04:22 RDW 35.0 % (13.2-15.2) H 07/08/17 04:22 Plt Count 364 K/mm3 (140-440) 07/08/17 04:22 Lymph % (Auto) Creative Designer 07/03/17 05:28 Wise % (Auto) Creative Designer 07/03/17 05:28 Eos % (Auto) Creative Designer 07/03/17 05:28 Baso % (Auto) Creative Designer 07/03/17 05:28 Lymph # Creative Designer 07/03/17 05:28 Wise # Creative Designer 07/03/17 05:28 Eos # Creative Designer 07/03/17 05:28 Baso # Creative Designer 07/03/17 05:28 Add Manual Diff Complete 07/05/17 08:21 Total Counted 200 07/05/17 08:21 Seg Neutrophils % Creative Designer 07/05/17 08:21 Seg Neuts % (Manual) 96.5 % (40.0-70.0) H 07/05/17 08:21 Band Neutrophils % 0 % 07/05/17 08:21 Lymphocytes % (Manual) 1.0 % (13.4-35.0) L 07/05/17 08:21 Reactive Lymphs % (Man) 0 % 07/05/17 08:21 Monocytes % (Manual) 2.5 % (0.0-7.3) 07/05/17 08:21 Eosinophils % (Manual) 0 % (0.0-4.3) 07/05/17 08:21 Basophils % (Manual) 0 % (0.0-1.8) 07/05/17 08:21 Metamyelocytes % 0 % 07/05/17 08:21 Myelocytes % 0 % 07/05/17 08:21 Promyelocytes % 0 % 07/05/17 08:21 Blast Cells % 0 % 07/05/17 08:21 Nucleated RBC % 0.5 % (0.0-0.9) 07/05/17 08:21 Seg Neutrophils # Creative Designer 07/03/17 05:28 Seg Neutrophils # Man 54.3 K/mm3 (1.8-7.7) H 07/05/17 08:21 Band Neutrophils # 0.0 K/mm3 07/05/17 08:21 Lymphocytes # (Manual) 0.6 K/mm3 (1.2-5.4) L 07/05/17 08:21 Abs React Lymphs (Man) 0.0 K/mm3 07/05/17 08:21 Monocytes # (Manual) 1.4 K/mm3 (0.0-0.8) H 07/05/17 08:21 Eosinophils # (Manual) 0.0 K/mm3 (0.0-0.4) 07/05/17 08:21 Basophils # (Manual) 0.0 K/mm3 (0.0-0.1) 07/05/17 08:21 Metamyelocytes # 0.0 K/mm3 07/05/17 08:21 Myelocytes # 0.0 K/mm3 07/05/17 08:21 Promyelocytes # 0.0 K/mm3 07/05/17 08:21 Blast Cells # 0.0 K/mm3 07/05/17 08:21 Pathologist Review 07/04/17 04:39 WBC Morphology Not Reportable 07/05/17 08:21 Hypersegmented Neuts Rare 07/05/17 08:21 Hyposegmented Neuts Not Reportable 07/05/17 08:21 Hypogranular Neuts Not Reportable 07/05/17 08:21 Smudge Cells Not Reportable 07/05/17 08:21 Toxic Granulation Not Reportable 07/05/17 08:21 Toxic Vacuolation Not Reportable 07/05/17 08:21 Dohle Bodies Not Reportable 07/05/17 08:21 Pelger-Huet Anomaly Not Reportable 07/05/17 08:21 Irma Rods Not Reportable 07/05/17 08:21 Platelet Estimate Cons 07/05/17 08:21 Clumped Platelets Not Reportable 07/05/17 08:21 Plt Clumps, EDTA Not Reportable 07/05/17 08:21 Large Platelets Few 07/05/17 08:21 Giant Platelets Not Reportable 07/05/17 08:21 Platelet Satelliting Not Reportable 07/05/17 08:21 Plt Morphology Comment Not Reportable 07/05/17 08:21 RBC Morphology Not Reportable 07/05/17 08:21 Dimorphic RBCs Not Reportable 07/05/17 08:21 Polychromasia Few 07/05/17 08:21 Hypochromasia 2+ 07/05/17 08:21 Poikilocytosis 1+ 07/05/17 08:21 Anisocytosis 3+ 07/05/17 08:21 Microcytosis 1+ 07/05/17 08:21 Macrocytosis Not Reportable 07/05/17 08:21 Spherocytes Not Reportable 07/05/17 08:21 Pappenheimer Bodies Not Reportable 07/05/17 08:21 Sickle Cells Not Reportable 07/05/17 08:21 Target Cells Rare 07/05/17 08:21 Tear Drop Cells Few 07/05/17 08:21 Ovalocytes Few 07/05/17 08:21 Helmet Cells Not Reportable 07/05/17 08:21 [place] Bodies Not Reportable 07/05/17 08:21 [place] Rings Not Reportable 07/05/17 08:21 [place] Cells Not Reportable 07/05/17 08:21 Bite Cells Not Reportable 07/05/17 08:21 Crenated Cell Not Reportable 07/05/17 08:21 Elliptocytes Not Reportable 07/05/17 08:21 Acanthocytes (Spur) Not Reportable 07/05/17 08:21 Rouleaux Not Reportable 07/05/17 08:21 Hemoglobin C Crystals Not Reportable 07/05/17 08:21 Schistocytes Rare 07/05/17 08:21 Malaria parasites Not Reportable 07/05/17 08:21 Roberto Bodies Not Reportable 07/05/17 08:21 Haptoglobin 204 mg/dL (43-212) 07/03/17 09:31 Hem Pathologist Commnt No 07/05/17 08:21 PT 12.5 Sec. (12.2-14.9) 07/03/17 06:19 INR 0.89 (0.87-1.13) 07/03/17 06:19 APTT 24.6 Sec. (24.2-36.6) 07/03/17 09:31 Fibrinogen 350 mg/dl (211-480) 07/03/17 09:31 POC ABG pH 7.522 (7.35-7.45) H 07/09/17 04:51 POC ABG pCO2 38.6 (35-45) 07/09/17 04:51 POC ABG pO2 67 (80-105) L 07/09/17 04:51 POC ABG HCO3 31.7 07/09/17 04:51 POC ABG Total CO2 33 07/09/17 04:51 POC ABG O2 Sat 95 07/09/17 04:51 POC ABG Base Excess 9 07/09/17 04:51 VBG pH 7.372 (7.320-7.420) 07/03/17 06:19 FiO2 30 % 07/09/17 04:51 Sodium 140 mmol/L (137-145) 07/09/17 04:30 Potassium 3.2 mmol/L (3.6-5.0) L D 07/09/17 04:30 Chloride 96.3 mmol/L (98-107) L 07/09/17 04:30 Carbon Dioxide 28 mmol/L (22-30) D 07/09/17 04:30 Anion Gap 19 mmol/L 07/09/17 04:30 BUN 60 mg/dL (7-17) H 07/09/17 04:30 Creatinine 3.6 mg/dL (0.7-1.2) H 07/09/17 04:30 Estimated GFR 17 ml/min 07/09/17 04:30 BUN/Creatinine Ratio 17 % 07/09/17 04:30 Glucose 115 mg/dL (65-100) H 07/09/17 04:30 POC Glucose 140 (70-105) H 07/09/17 12:26 Lactic Acid 0.90 mmol/L (0.7-2.0) 07/06/17 07:28 Calcium 8.5 mg/dL (8.4-10.2) 07/09/17 04:30 Phosphorus 4.80 mg/dL (2.5-4.5) H 07/09/17 04:30 Magnesium 2.10 mg/dL (1.7-2.3) 07/09/17 04:30 Iron 12 ug/dL (37-170) L 07/03/17 09:31 TIBC 534 mcg/dL (250-450) H 07/03/17 09:31 Transferrin 148 mg/dl (192-382) L 07/06/17 07:28 Ferritin 79.1 ng/mL (13.0-400.0) 07/06/17 07:28 Total Bilirubin 0.40 mg/dL (0.1-1.2) 07/03/17 05:28 AST 17 units/L (5-40) 07/03/17 05:28 ALT 10 units/L (7-56) 07/03/17 05:28 Alkaline Phosphatase 74 units/L (35-129) 07/03/17 05:28 C-Reactive Protein 26.20 mg/dL (0.00-1.30) H 07/06/17 18:08 NT-Pro-B Natriuret Pep 114.4 pg/mL (0-450) 07/07/17 12:21 Total Protein 7.5 g/dL (6.3-8.2) 07/03/17 05:28 Albumin 4.5 g/dL (3.9-5) 07/03/17 05:28 Albumin/Globulin Ratio 1.5 % 07/03/17 05:28 Triglycerides 103 mg/dL (2-149) 07/05/17 22:04 Lipase 18 units/L (13-60) 07/03/17 05:28 TSH 0.561 mlU/mL (0.270-4.200) 07/04/17 14:38 HCG, Qual Negative (Negative) 07/03/17 06:19 HCG, Quant < 2 mIU/mL (0-4) 07/05/17 15:50 PTH Intact 285.9 pg/mL (15-65) H 07/06/17 07:28 Urine Color Yellow (Yellow) 07/05/17 Unknown Urine Turbidity Clear (Clear) 07/05/17 Unknown Urine pH 5.0 (5.0-7.0) 07/05/17 Unknown Ur Specific [place] 1.021 (1.003-1.030) 07/05/17 Unknown Urine Protein 100 mg/dl mg/dL (Negative) 07/05/17 Unknown Urine Glucose (UA) 50 mg/dL (Negative) 07/05/17 Unknown Urine Ketones Tr mg/dL (Negative) 07/05/17 Unknown Urine Blood Sm (Negative) 07/05/17 Unknown Urine Nitrite Neg (Negative) 07/05/17 Unknown Urine Bilirubin Neg (Negative) 07/05/17 Unknown Urine Urobilinogen < 2.0 mg/dL (<2.0) 07/05/17 Unknown Ur Leukocyte Esterase Tr (Negative) 07/05/17 Unknown Urine WBC (Auto) < 1.0 /HPF (0.0-6.0) 07/05/17 Unknown Urine RBC (Auto) 10.0 /HPF (0.0-6.0) 07/05/17 Unknown U Epithel Cells (Auto) 9.0 /HPF (0-13.0) 07/05/17 Unknown Urine Bacteria (Auto) 2+ /HPF (Negative) 07/05/17 Unknown Urine Mucus Few /HPF 07/03/17 Unknown Urine Eosinophils None seen (None Seen) 07/05/17 Unknown Urine Creatinine 237.2 mg/dL (0.1-20.0) H 07/05/17 Unknown Urine Microalbumin 39.9 mg/dL (0.1-34.0) H 07/05/17 Unknown Microalb/Creat Ratio 168.2 ug/mg 07/05/17 Unknown Urine Sodium 18 mmol/L 07/05/17 Unknown Urine Total Protein 170 mg/dL (5-11.8) H 07/05/17 Unknown Hepatitis A IgM Ab Non-reactive (NonReactive) 07/06/17 18:07 Hep Bs Antigen Non-reactive (Negative) 07/06/17 18:07 Hep B Core IgM Ab Non-reactive (NonReactive) 07/06/17 18:07 Hepatitis C Antibody Non-reactive (NonReactive) 07/06/17 18:07 HIV 1&2 Antibody Rapid Non react (Non React) 07/06/17 18:09 HIV P24 Antigen Non react (Non React) 07/06/17 18:09 Blood Type O POSITIVE 07/06/17 10:27 Antibody Screen Negative 07/06/17 10:27 Crossmatch See Detail 07/06/17 10:27
[2017-07-09] MEDS: HEPARIN SUB-Q SCH ×2 (16:41→21:36)
--- NOTE | 2017-07-09 16:49 | Post Operative Note ---
Date of procedure: 07/09/17 (Dictation#[id number]) Pre-op diagnosis: Ischemic Bowel Post-op diagnosis: same Findings: All tissue was viable. No signs of further ischemia or infection Procedure: Peritoneal Washing, enterocolostomy and closure of abdominal wall. Anesthesia: OSITOA Surgeon: JANINE DICKEY Estimated blood loss: minimal Pathology: none Condition: stable Disposition: ICU
[2017-07-09] MEDS ORDERED: TPN ADULT 2,400 ML IV SCH (20:00)
--- NOTE | 2017-07-09 20:10 | Progress Note ---
Assessment and Plan Assessment: 1) Severe sepsis: better leukocytosis 12-->42-->56-->28->21K; etiology: bowel ischemia - gangrene of majority of small bowel and right colon. 2) Peritonitis: secondary to gangrene of majority of small bowel and right colon. Approximately 30 cm of viable small bowel from ligament of treitz, transverse colon and remainder of colon viable. Unclear etiology: ?cocaine ? emboli -S/P Diagnostic laparoscopy, converted to exploratory laparotomy, small bowel resection, right hemicolectomy, temporary closure of abdomen on 07/06 -TTE EF >55 no clots -CRP=26 -HIV neg -Path - benign gangrenous small bowel, colon and appendix, no malignancy 3) Nausea, vomiting, abdominal pain and diarrhea: due to bowel gangrene -CT - bowels were normal -repeat CT w contrast showed multiple non distended small and large bowel loops ? ileus, no evidence of colitis or enteritis 4) Hypertensive urgency 5) Vaginal bleeding: from fibroids. CT showed uterine fibroids, 2.3 c left ovarian cyst. 6) Right liver lesion ? hemangioma. Viral hep neg 7) Small pericardial effusion 8) EMMA - worsening 9) Severe anemia: prob from fibroids Recommendations: -stop meropenem -start zosyn and continue fluconazole for now- D5/10 -f/u CHELSEA, ANCA, C3/C4 Thanks for consultation Rachel Bryant MD Subjective Date of service: 07/09/17 Principal diagnosis: Post-Op Resp Failure on MVS; Ischemic Bowel s/p Ex-Lap; EMMA Interval history: sedated on the vent, no fever, no need for pressors Micro: Blood cx 5/ ngtd Urine cx: 5 10-100K mixed bacteria Tracheal asp : / ngtd Abx: Meropenem / Fluconazole / Previous Abx: Zosyn Levaquin Flagyl Vanco Objective - Exam Narrative Exam: Alert intubated on the vent JULIANN, clear OP Neck no LN Lungs CTA sanchez CV tachy Abd soft +surg wound VAC with dressings Ext no edema Skin no rash Neuro sedated - Constitutional Vitals: Vital Signs Temp Pulse Resp BP Pulse Ox 99.2 F 102 H 18 133/84 99 07/09/17 14:20 07/09/17 19:00 07/09/17 19:00 07/09/17 19:00 07/09/17 19:00 Temperature -Last 24 Hours Temperature 99.2 F Temperature 100.0 F Temperature 99.0 F - Labs CBC & Chem 7: 07/08/17 04:22 07/09/17 04:30 Labs: Abnormal lab results 07/09/17 07/09/17 07/09/17 Range/Units 04:30 04:30 04:51 POC ABG pH 7.522 H (7.35-7.45) POC ABG pO2 67 L (80-105) Potassium 3.2 L D (3.6-5.0) mmol/L Chloride 96.3 L (98-107) mmol/L BUN 60 H (7-17) mg/dL Creatinine 3.6 H (0.7-1.2) mg/dL Glucose 115 H (65-100) mg/dL POC Glucose (70-105) Phosphorus 4.80 H (2.5-4.5) mg/dL 07/09/17 07/09/17 Range/Units 12:26 17:51 POC ABG pH (7.35-7.45) POC ABG pO2 (80-105) Potassium (3.6-5.0) mmol/L Chloride (98-107) mmol/L BUN (7-17) mg/dL Creatinine (0.7-1.2) mg/dL Glucose (65-100) mg/dL POC Glucose 140 H 152 H (70-105) Phosphorus (2.5-4.5) mg/dL
[2017-07-09] MEDS: ZOSYN/NS 2.25 GM/50ML 2.25 GM/50 ML BAG IV SCH (21:38)
--- NOTE | 2017-07-09 21:44 | Operative Report ---
PREOPERATIVE DIAGNOSES: Ischemic bowel, open abdomen. POSTOPERATIVE DIAGNOSES: Ischemic bowel, open abdomen. PROCEDURE:. 1. Peritoneal lavage. 2. Enteroenterostomy. 3. Suture of abdominal wall. ATTENDING PHYSICIAN: Abdi Pérez MD ANESTHESIA: General. ESTIMATED BLOOD LOSS: Minimal. FLUIDS: 250 mL. FINDINGS: All viable tissue. No evidence of any further ischemic tissue or infected tissue. SPECIMENS: None. DRAINS: None. COMPLICATIONS: None. DISPOSITION: Stable, transferred to ICU. INDICATIONS: This is a 42-year-old female who recently was found to have ischemic bowel. Extensive resection was done. The patient was left in discontinuity. She was resuscitated and now returns for consideration of anastomosis. Procedure risks, benefits, alternatives were discussed with adult daughter and family. Risks included but were not limited to infection, bleeding, pain, injury to surrounding structures, possible need for further surgery in the future. Daughter and family understood. Consent was obtained. OPERATIVE NOTE: The patient was brought to the operating room and placed on the table in supine position. After adequate general anesthesia was established, the patient was prepped and draped in usual sterile fashion. Antibiotics were already given from ICU. SCDs were in place. Timeout was performed. I removed the wound VAC, removed the fascial sutures that had been placed previously. The internal contents of the ABThera were removed. Abdomen was inspected. Peritoneal lavage was performed. As mentioned above, all tissue appeared viable. No evidence of any infection or further ischemia. Once we were satisfied, I then lined up the transverse colon and jejunum. The two ends, they were held in place by 3-0 silk sutures. Colotomy was made along the tinea and a small opening adjacent to that in the small bowel was made. Endo-BEENA stapler was used to create an anastomosis. Internal inspection revealed good hemostasis, did not see any gaps. There was no leakage anywhere. The common opening was closed with a TA stapler. Using 3-0 silk sutures, I reinforced all the junction lines and some of the corners. I reinforced the crotch of the anastomosis. We thoroughly examined the surrounding area. I checked underneath with a gauze sponge. I saw no evidence of any leakage. Everything appeared to be intact with a good anastomosis. The opening was quite wide. I covered that area with the adjacent omentum. I secured it to the small bowel and colon with a few interrupted 3-0 silk sutures. Everything was returned into the abdomen. Abdomen looked very clean. We changed our gloves and then closed the fascia with a running #1 looped PDS suture. Wound was thoroughly irrigated. Skin was loosely closed with marilyn. Skin was clean and dry dressings were placed. The patient tolerated the procedure well. There were no complications. All counts were correct at the end of the case. JOB# [id number] RICHAR/RUPINDER
[2017-07-09] MEDS ORDERED: ZOSYN/NS 4.5GM/100ML 4.5 GM/100 ML VIAL IV SCH (22:00)
[2017-07-10] MEDS: ZOSYN/NS 2.25 GM/50ML 2.25 GM/50 ML BAG IV SCH ×4 (03:01→22:09)
[2017-07-10 05:46] LABS: Hematocrit 29.3 % (30.3-42.9); Mean Corpuscular HGB Conc 31 % (30-34); Mean Corpuscular Hemoglobin 21 pg (28-32); Mean Corpuscular Volume 69 fl (79-97); Platelet Count 451 K/mm3 (140-440); Red Blood Count 4.22 M/mm3 (3.65-5.03); Red Cell Distribution Width 35.9 % (13.2-15.2)
[2017-07-10] MEDS: HEPARIN SUB-Q SCH ×3 (06:02→22:11)
[2017-07-10] MEDS: fentaNYL DRIP Premix 2,000 MCG/100 ML BAG IV SCH (06:08)
[2017-07-10 06:15] LABS: Calcium 8.7 mg/dL (8.4-10.2)
--- NOTE | 2017-07-10 08:27 | Progress Note ---
Assessment and Plan Assessment: 1) Severe sepsis: better leukocytosis 12-->42-->56-->28->21-->24K; etiology: bowel ischemia - gangrene of majority of small bowel and right colon. 2) Peritonitis: secondary to gangrene of majority of small bowel and right colon. Approximately 30 cm of viable small bowel from ligament of treitz, transverse colon and remainder of colon viable. Unclear etiology: ?cocaine ? emboli -S/P Diagnostic laparoscopy, converted to exploratory laparotomy, small bowel resection, right hemicolectomy, temporary closure of abdomen on 07/06 -S/P Peritoneal Washing, enterocolostomy and closure of abdominal wall on 07/09 -TTE EF >55 no clots -CRP=26 -HIV neg -Viral hepatitis neg -Path - benign gangrenous small bowel, colon and appendix, no malignancy 3) Nausea, vomiting, abdominal pain and diarrhea: due to bowel gangrene -CT - bowels were normal -repeat CT w contrast showed multiple non distended small and large bowel loops ? ileus, no evidence of colitis or enteritis 4) Hypertensive urgency 5) Vaginal bleeding: from fibroids. CT showed uterine fibroids, 2.3 c left ovarian cyst. 6) Right liver lesion ? hemangioma. Viral hep neg 7) Small pericardial effusion 8) EMMA -better 9) Severe anemia: prob from fibroids Recommendations: -continue zosyn and fluconazole for now- D6/10 -f/u CHELSEA, ANCA, C3/C4 Thanks for consultation Rachel Bryant MD Subjective Date of service: 07/10/17 Principal diagnosis: Post-Op Resp Failure on MVS; Ischemic Bowel s/p Ex-Lap; EMMA Interval history: sedated on the vent, no need for pressors, tmax 100. Micro: Blood cx 07/03 ngtd Urine cx: 07/03 10-100K mixed bacteria Tracheal asp : 07/06 ngtd Abx: zosyn 07/09 Fluconazole 07/05 Previous Abx: Zosyn Levaquin Flagyl Vanco Meropenem 07/05-07/09 Objective - Exam Narrative Exam: Alert intubated on the vent JULIANN, clear OP Neck no LN Lungs CTA sanchez CV tachy Abd soft +surg wound covered with dressings Ext no edema Skin no rash Neuro sedated - Constitutional Vitals: Vital Signs Temp Pulse Resp BP Pulse Ox 98.1 F 102 H 16 145/88 100 07/10/17 03:52 07/10/17 07:21 07/10/17 07:15 07/10/17 07:21 07/10/17 07:21 Temperature -Last 24 Hours Temperature 98.1 F Temperature 99.6 F Temperature 98.4 F Temperature 99.2 F - Labs CBC & Chem 7: 07/10/17 05:30 07/10/17 05:30 Labs: Abnormal lab results 07/09/17 07/09/17 07/09/17 Range/Units 12:26 17:51 23:48 WBC (4.5-11.0) K/mm3 Hgb (10.1-14.3) gm/dl Hct (30.3-42.9) % MCV (79-97) fl MCH (28-32) pg RDW (13.2-15.2) % Plt Count (140-440) K/mm3 POC ABG pH (7.35-7.45) POC ABG pCO2 (35-45) POC ABG pO2 (80-105) Chloride (98-107) mmol/L Carbon Dioxide (22-30) mmol/L BUN (7-17) mg/dL Creatinine (0.7-1.2) mg/dL Glucose (65-100) mg/dL POC Glucose 140 H 152 H 149 H (70-105) Phosphorus (2.5-4.5) mg/dL 07/10/17 07/10/17 07/10/17 Range/Units 03:33 05:30 05:30 WBC 24.0 H (4.5-11.0) K/mm3 Hgb 9.0 L (10.1-14.3) gm/dl Hct 29.3 L (30.3-42.9) % MCV 69 L (79-97) fl MCH 21 L (28-32) pg RDW 35.9 H (13.2-15.2) % Plt Count 451 H (140-440) K/mm3 POC ABG pH 7.593 H (7.35-7.45) POC ABG pCO2 34.7 L (35-45) POC ABG pO2 73 L (80-105) Chloride 96.8 L (98-107) mmol/L Carbon Dioxide 31 H (22-30) mmol/L BUN 61 H (7-17) mg/dL Creatinine 2.9 H (0.7-1.2) mg/dL Glucose 120 H (65-100) mg/dL POC Glucose (70-105) Phosphorus 5.20 H (2.5-4.5) mg/dL
--- NOTE | 2017-07-10 08:45 | Progress Note ---
Assessment and Plan - Patient Problems (1) Ischemia, bowel Current Visit: Yes Status: Acute Plan to address problem: Pt stable. s/p enteroenterostomy and closure of abdominal wall - 5/7 - POD#1. - Ok to extubate from my standpoint - Wound not start tube feeds. Cont TPN. Once bowel function resumes, then can remove NGT. Subjective Date of service: 07/10/17 Patient Reports: Positive: other (no issues o/n) Objective Vital Signs - 12hr 07/09/17 07/09/17 07/09/17 20:45 21:00 21:15 Temperature Pulse Rate 105 H 105 H 99 H Respiratory 18 18 17 Rate Blood Pressure 135/83 142/79 136/75 O2 Sat by Pulse 100 100 99 Oximetry 07/09/17 07/09/17 07/09/17 21:30 21:45 22:00 Temperature Pulse Rate 105 H 104 H 105 H Respiratory 18 18 18 Rate Blood Pressure 141/80 145/81 127/80 O2 Sat by Pulse 100 99 99 Oximetry 07/09/17 07/09/17 07/09/17 22:15 22:30 22:45 Temperature Pulse Rate 105 H 105 H 103 H Respiratory 18 18 18 Rate Blood Pressure 127/82 136/81 132/85 O2 Sat by Pulse 99 99 99 Oximetry 07/09/17 07/09/17 07/09/17 23:00 23:15 23:29 Temperature Pulse Rate 103 H 112 H 106 H Respiratory 18 17 18 Rate Blood Pressure 121/85 125/83 125/83 O2 Sat by Pulse 99 99 99 Oximetry 07/09/17 07/09/17 07/10/17 23:30 23:45 00:00 Temperature 99.6 F Pulse Rate 104 H 107 H 102 H Respiratory 18 18 18 Rate Blood Pressure 142/79 123/83 117/76 O2 Sat by Pulse 99 99 100 Oximetry 07/10/17 07/10/17 07/10/17 00:15 00:30 00:45 Temperature Pulse Rate 101 H 102 H 101 H Respiratory 18 18 18 Rate Blood Pressure 127/78 134/86 126/81 O2 Sat by Pulse 99 99 99 Oximetry 07/10/17 07/10/17 07/10/17 00:57 01:00 01:15 Temperature Pulse Rate 100 H 103 H 102 H Respiratory 18 18 Rate Blood Pressure 126/81 145/89 142/88 O2 Sat by Pulse 99 99 99 Oximetry 07/10/17 07/10/17 07/10/17 01:30 01:45 02:00 Temperature Pulse Rate 104 H 104 H 101 H Respiratory 18 18 18 Rate Blood Pressure 138/85 142/84 148/82 O2 Sat by Pulse 99 99 99 Oximetry 07/10/17 07/10/17 07/10/17 02:15 02:30 02:45 Temperature Pulse Rate 104 H 103 H 100 H Respiratory 18 18 18 Rate Blood Pressure 138/90 146/80 154/79 O2 Sat by Pulse 99 99 98 Oximetry 07/10/17 07/10/17 07/10/17 03:01 03:15 03:27 Temperature Pulse Rate 99 H 100 H 99 H Respiratory 18 18 Rate Blood Pressure 140/73 146/87 146/87 O2 Sat by Pulse 98 98 98 Oximetry 07/10/17 07/10/17 07/10/17 03:30 03:45 03:52 Temperature 98.1 F Pulse Rate 101 H 94 H Respiratory 18 18 Rate Blood Pressure 147/85 156/82 O2 Sat by Pulse 99 100 Oximetry 07/10/17 07/10/17 07/10/17 04:00 04:15 04:30 Temperature Pulse Rate 100 H 94 H 97 H Respiratory 18 18 18 Rate Blood Pressure 133/87 139/78 146/87 O2 Sat by Pulse 100 96 99 Oximetry 07/10/17 07/10/17 07/10/17 04:45 05:00 05:15 Temperature Pulse Rate 101 H 101 H 99 H Respiratory 18 18 18 Rate Blood Pressure 145/88 152/89 156/87 O2 Sat by Pulse 96 99 99 Oximetry 07/10/17 07/10/17 07/10/17 05:30 05:45 06:00 Temperature Pulse Rate 100 H 97 H 97 H Respiratory 18 18 17 Rate Blood Pressure 153/90 144/84 157/88 O2 Sat by Pulse 99 99 99 Oximetry 07/10/17 07/10/17 07/10/17 06:15 06:30 06:45 Temperature Pulse Rate 93 H 96 H 98 H Respiratory 18 18 18 Rate Blood Pressure 157/82 155/90 143/88 O2 Sat by Pulse 98 99 99 Oximetry 07/10/17 07/10/17 07/10/17 07:00 07:15 07:21 Temperature Pulse Rate 98 H 97 H 102 H Respiratory 18 16 Rate Blood Pressure 148/86 145/88 145/88 O2 Sat by Pulse 99 99 100 Oximetry - General physical appearance no distress, no pain, other (sedated on vent) - Respiratory normal expansion, normal respiratory effort - Abdomen soft, not distended, not guarding, not rigid, other (NGT with bilious output. Dressing C/d/I) - Labs 07/10/17 05:30 07/10/17 05:30 Diabetes panel 07/10/17 Range/Units 05:30 Sodium 141 (137-145) mmol/L Potassium 3.6 (3.6-5.0) mmol/L Chloride 96.8 L (98-107) mmol/L Carbon Dioxide 31 H (22-30) mmol/L BUN 61 H (7-17) mg/dL Creatinine 2.9 H (0.7-1.2) mg/dL Glucose 120 H (65-100) mg/dL Calcium 8.7 (8.4-10.2) mg/dL Calcium panel 07/10/17 Range/Units 05:30 Calcium 8.7 (8.4-10.2) mg/dL Phosphorus 5.20 H (2.5-4.5) mg/dL Pituitary panel 07/10/17 Range/Units 05:30 Sodium 141 (137-145) mmol/L Potassium 3.6 (3.6-5.0) mmol/L Chloride 96.8 L (98-107) mmol/L Carbon Dioxide 31 H (22-30) mmol/L BUN 61 H (7-17) mg/dL Creatinine 2.9 H (0.7-1.2) mg/dL Glucose 120 H (65-100) mg/dL Calcium 8.7 (8.4-10.2) mg/dL Adrenal panel 07/10/17 Range/Units 05:30 Sodium 141 (137-145) mmol/L Potassium 3.6 (3.6-5.0) mmol/L Chloride 96.8 L (98-107) mmol/L Carbon Dioxide 31 H (22-30) mmol/L BUN 61 H (7-17) mg/dL Creatinine 2.9 H (0.7-1.2) mg/dL Glucose 120 H (65-100) mg/dL Calcium 8.7 (8.4-10.2) mg/dL
[2017-07-10] MEDS: PEPCID IV SCH (09:28)
--- NOTE | 2017-07-10 09:55 | Progress Note ---
Assessment and Plan Severe Sepsis due to Peritonitis: Questionable Liver Hemangioma: ID consulted, on Abx Urine culture showed 10-100,000 mixed culture >2, probably contamination Bowel ischemia with gangrene. s/p Surgery by GS. Hypoxic respiratory failure: -Intubated on Vent -Per ICU Acute Kidney Injury secondary to ATN High Anion Gap Metabolic Acidosis: Hypocalcemia: Cr trending down, good UOP, elevated BUN secondary to TPN will d/c [place] Obtain daily weight Strict intake and output [place] Catheter: No Anemia: Vaginal Bleeding: Left simple ovarian cyst: Transfuse PRN per primary Alcohol Use: CIWA protocol Subjective Date of service: 07/10/17 Principal diagnosis: Post-Op Resp Failure on MVS; Ischemic Bowel s/p Ex-Lap; EMMA Interval history: sedated and intubated, no family at bedside Objective - Vital Signs Vital signs: Vital Signs - 12hr 07/09/17 07/09/17 07/09/17 22:00 22:15 22:30 Temperature Pulse Rate 105 H 105 H 105 H Respiratory 18 18 18 Rate Blood Pressure 127/80 127/82 136/81 O2 Sat by Pulse 99 99 99 Oximetry 07/09/17 07/09/17 07/09/17 22:45 23:00 23:15 Temperature Pulse Rate 103 H 103 H 112 H Respiratory 18 18 17 Rate Blood Pressure 132/85 121/85 125/83 O2 Sat by Pulse 99 99 99 Oximetry 07/09/17 07/09/17 07/09/17 23:29 23:30 23:45 Temperature Pulse Rate 106 H 104 H 107 H Respiratory 18 18 18 Rate Blood Pressure 125/83 142/79 123/83 O2 Sat by Pulse 99 99 99 Oximetry 07/10/17 07/10/17 07/10/17 00:00 00:15 00:30 Temperature 99.6 F Pulse Rate 102 H 101 H 102 H Respiratory 18 18 18 Rate Blood Pressure 117/76 127/78 134/86 O2 Sat by Pulse 100 99 99 Oximetry 07/10/17 07/10/17 07/10/17 00:45 00:57 01:00 Temperature Pulse Rate 101 H 100 H 103 H Respiratory 18 18 Rate Blood Pressure 126/81 126/81 145/89 O2 Sat by Pulse 99 99 99 Oximetry 07/10/17 07/10/17 07/10/17 01:15 01:30 01:45 Temperature Pulse Rate 102 H 104 H 104 H Respiratory 18 18 18 Rate Blood Pressure 142/88 138/85 142/84 O2 Sat by Pulse 99 99 99 Oximetry 07/10/17 07/10/17 07/10/17 02:00 02:15 02:30 Temperature Pulse Rate 101 H 104 H 103 H Respiratory 18 18 18 Rate Blood Pressure 148/82 138/90 146/80 O2 Sat by Pulse 99 99 99 Oximetry 07/10/17 07/10/17 07/10/17 02:45 03:01 03:15 Temperature Pulse Rate 100 H 99 H 100 H Respiratory 18 18 18 Rate Blood Pressure 154/79 140/73 146/87 O2 Sat by Pulse 98 98 98 Oximetry 07/10/17 07/10/17 07/10/17 03:27 03:30 03:45 Temperature Pulse Rate 99 H 101 H 94 H Respiratory 18 18 Rate Blood Pressure 146/87 147/85 156/82 O2 Sat by Pulse 98 99 100 Oximetry 07/10/17 07/10/17 07/10/17 03:52 04:00 04:15 Temperature 98.1 F Pulse Rate 100 H 94 H Respiratory 18 18 Rate Blood Pressure 133/87 139/78 O2 Sat by Pulse 100 96 Oximetry 07/10/17 07/10/17 07/10/17 04:30 04:45 05:00 Temperature Pulse Rate 97 H 101 H 101 H Respiratory 18 18 18 Rate Blood Pressure 146/87 145/88 152/89 O2 Sat by Pulse 99 96 99 Oximetry 07/10/17 07/10/17 07/10/17 05:15 05:30 05:45 Temperature Pulse Rate 99 H 100 H 97 H Respiratory 18 18 18 Rate Blood Pressure 156/87 153/90 144/84 O2 Sat by Pulse 99 99 99 Oximetry 07/10/17 07/10/17 07/10/17 06:00 06:15 06:30 Temperature Pulse Rate 97 H 93 H 96 H Respiratory 17 18 18 Rate Blood Pressure 157/88 157/82 155/90 O2 Sat by Pulse 99 98 99 Oximetry 07/10/17 07/10/17 07/10/17 06:45 07:00 07:15 Temperature Pulse Rate 98 H 98 H 97 H Respiratory 18 18 16 Rate Blood Pressure 143/88 148/86 145/88 O2 Sat by Pulse 99 99 99 Oximetry 07/10/17 07/10/17 07:21 08:00 Temperature 98.6 F Pulse Rate 102 H Respiratory Rate Blood Pressure 145/88 O2 Sat by Pulse 100 Oximetry - General Appearance General appearance: sedated on ventilator EENT: mucous membranes moist Neck: no JVD, no carotid bruit Respiratory: Present: Clear to Ascultation Cardiology: regular, S1S2 Gastrointestinal: normoactive bowel sounds, no tenderness, no distended Integumentary: no rash, warm and dry Neurologic: other (sedated) Musculoskeletal: other (trace pitting edema in BLE) Psychiatric: other (sedated) - Lab 07/10/17 05:30 07/10/17 05:30 Most recent lab results Calcium 8.7 mg/dL (8.4-10.2) 07/10/17 05:30 Phosphorus 5.20 mg/dL (2.5-4.5) H 07/10/17 05:30 Magnesium 1.70 mg/dL (1.7-2.3) 07/10/17 05:30 Urine Creatinine 237.2 mg/dL (0.1-20.0) H 07/05/17 Unknown Urine Sodium 18 mmol/L 07/05/17 Unknown Urine Total Protein 170 mg/dL (5-11.8) H 07/05/17 Unknown
[2017-07-10] MEDS: DIFLUCAN 200 MG/100 ML BAG IV SCH (10:18)
[2017-07-10] MEDS: APRESOLINE IV PRN ×2 (11:21→22:22)
--- NOTE | 2017-07-10 12:35 | Progress Note ---
Assessment and Plan Postoperative respiratory failure, now on mechanical ventilatory support Sepsis syndrome. Ischemic bowel, possibly secondary to embolic event vs related to drug abuse H/O Cocaine use with possibility of arterial spasm. Acute kidney injury. Leukocytosis. Uncontrolled hypertension. Severe anemia. Drug abuse. Alcohol abuse - begin daytime SBT's but rest on AC overnight - reduced set rate to 12/min - continue daily SAT's - continue anti-infectives per ID recs - keep NPO - continue TPN per surgery - continue GI & VTE prophylaxis - gentle hydration - azotemia per nephrology (non-oliguric now) - GI & VTE prophylaxis - flu & pneumovax per protocol ...30' CCT Subjective Date of service: 07/10/17 Principal diagnosis: Post-Op Resp Failure on MVS; Ischemic Bowel s/p Ex-Lap; EMMA Interval history: Patient is seen today for: Post-Op Resp Failure on MVS; Ischemic Bowel s/p Ex- Lap; EMMA Seen and examined at bedside; 24hour events reviewed; nursing and respiratory care staff consulted; no adverse overnight events reported to me; resting peacefully; remains on MVS; denies uncontroled pain; relative in room; on TPN Objective Vital Signs - 12hr 07/10/17 07/10/17 07/10/17 00:45 00:57 01:00 Temperature Pulse Rate 101 H 100 H 103 H Respiratory 18 18 Rate Blood Pressure 126/81 126/81 145/89 O2 Sat by Pulse 99 99 99 Oximetry 07/10/17 07/10/17 07/10/17 01:15 01:30 01:45 Temperature Pulse Rate 102 H 104 H 104 H Respiratory 18 18 18 Rate Blood Pressure 142/88 138/85 142/84 O2 Sat by Pulse 99 99 99 Oximetry 07/10/17 07/10/17 07/10/17 02:00 02:15 02:30 Temperature Pulse Rate 101 H 104 H 103 H Respiratory 18 18 18 Rate Blood Pressure 148/82 138/90 146/80 O2 Sat by Pulse 99 99 99 Oximetry 07/10/17 07/10/17 07/10/17 02:45 03:01 03:15 Temperature Pulse Rate 100 H 99 H 100 H Respiratory 18 18 18 Rate Blood Pressure 154/79 140/73 146/87 O2 Sat by Pulse 98 98 98 Oximetry 07/10/17 07/10/17 07/10/17 03:27 03:30 03:45 Temperature Pulse Rate 99 H 101 H 94 H Respiratory 18 18 Rate Blood Pressure 146/87 147/85 156/82 O2 Sat by Pulse 98 99 100 Oximetry 07/10/17 07/10/17 07/10/17 03:52 04:00 04:15 Temperature 98.1 F Pulse Rate 100 H 94 H Respiratory 18 18 Rate Blood Pressure 133/87 139/78 O2 Sat by Pulse 100 96 Oximetry 07/10/17 07/10/17 07/10/17 04:30 04:45 05:00 Temperature Pulse Rate 97 H 101 H 101 H Respiratory 18 18 18 Rate Blood Pressure 146/87 145/88 152/89 O2 Sat by Pulse 99 96 99 Oximetry 07/10/17 07/10/17 07/10/17 05:15 05:30 05:45 Temperature Pulse Rate 99 H 100 H 97 H Respiratory 18 18 18 Rate Blood Pressure 156/87 153/90 144/84 O2 Sat by Pulse 99 99 99 Oximetry 07/10/17 07/10/17 07/10/17 06:00 06:15 06:30 Temperature Pulse Rate 97 H 93 H 96 H Respiratory 17 18 18 Rate Blood Pressure 157/88 157/82 155/90 O2 Sat by Pulse 99 98 99 Oximetry 07/10/17 07/10/17 07/10/17 06:45 07:00 07:15 Temperature Pulse Rate 98 H 98 H 97 H Respiratory 18 18 16 Rate Blood Pressure 143/88 148/86 145/88 O2 Sat by Pulse 99 99 99 Oximetry 07/10/17 07/10/17 07/10/17 07:21 07:31 07:45 Temperature Pulse Rate 102 H 101 H 100 H Respiratory 18 17 Rate Blood Pressure 145/88 155/93 141/87 O2 Sat by Pulse 100 100 100 Oximetry 07/10/17 07/10/17 07/10/17 08:00 08:15 08:30 Temperature 98.6 F Pulse Rate 99 H 100 H 99 H Respiratory 17 18 18 Rate Blood Pressure 132/84 137/87 126/90 O2 Sat by Pulse 100 100 99 Oximetry 07/10/17 07/10/17 07/10/17 08:45 09:00 09:15 Temperature Pulse Rate 91 H 98 H 95 H Respiratory 18 18 19 Rate Blood Pressure 140/85 153/91 145/85 O2 Sat by Pulse 100 99 99 Oximetry 07/10/17 07/10/17 07/10/17 09:30 09:45 10:00 Temperature Pulse Rate 97 H 96 H 97 H Respiratory 18 18 18 Rate Blood Pressure 153/90 154/91 165/91 O2 Sat by Pulse 100 100 99 Oximetry 07/10/17 07/10/17 07/10/17 10:15 10:29 10:30 Temperature Pulse Rate 100 H 101 H 101 H Respiratory 18 18 Rate Blood Pressure 160/92 160/92 174/96 O2 Sat by Pulse 100 100 100 Oximetry 07/10/17 07/10/17 07/10/17 10:45 11:00 11:15 Temperature Pulse Rate 102 H 106 H 105 H Respiratory 18 18 18 Rate Blood Pressure 172/92 171/101 172/95 O2 Sat by Pulse 99 100 99 Oximetry 07/10/17 07/10/17 07/10/17 11:21 11:30 11:45 Temperature Pulse Rate 105 H 107 H 111 H Respiratory 18 18 Rate Blood Pressure 172/95 152/87 158/82 O2 Sat by Pulse 99 98 Oximetry 07/10/17 12:18 Temperature Pulse Rate 122 H Respiratory Rate Blood Pressure 161/80 O2 Sat by Pulse 98 Oximetry Constitutional: no acute distress, other (sedated) Eyes: non-icteric ENT: oropharynx moist, other (ETT 23 cm IVA) Neck: supple, no lymphadenopathy, other (no thyromegaly) Effort: mildly labored Ascultation: Bilateral: diminished breath sounds (bases), rhonchi Percussion: Bilateral: not dull Cardiovascular: regular rate and rhythm, other (No R/M) Gastrointestinal: hypoactive bowel sounds, non-tender, non-distended, other (no palpable HSM; clean dressing over abdominal incision site) Integumentary: normal Extremities: no cyanosis, no edema, pulses normal, no ischemia or petechiae Neurologic: normal mental status, non-focal exam, pupils equal and round, CN II- XII normal Psychiatric: mood appropriate, affect normal CBC and BMP: 07/11/17 06:30 07/11/17 06:30 ABG, PT/INR, D-dimer: ABG POC ABG pH 7.593 (7.35-7.45) H 07/10/17 03:33 POC ABG pCO2 34.7 (35-45) L 07/10/17 03:33 POC ABG pO2 73 (80-105) L 07/10/17 03:33 POC ABG HCO3 33.6 07/10/17 03:33 POC ABG Total CO2 35 07/10/17 03:33 POC ABG O2 Sat 97 07/10/17 03:33 PT/INR, D-dimer PT 12.5 Sec. (12.2-14.9) 07/03/17 06:19 INR 0.89 (0.87-1.13) 07/03/17 06:19 Abnormal lab findings: Abnormal Labs 07/03/17 07/03/17 07/03/17 05:11 05:28 05:28 WBC 12.9 H Hgb 5.6 L* Hct 22.3 L MCV 59 L MCH 15 L MCHC 25 L RDW 33.3 H Plt Count 125 L Seg Neuts % (Manual) 75.0 H Lymphocytes % (Manual) Seg Neutrophils # Man 9.7 H Lymphocytes # (Manual) Monocytes # (Manual) POC ABG pH POC ABG pCO2 POC ABG pO2 Sodium Potassium 3.0 L Chloride Carbon Dioxide BUN Creatinine 0.6 L Glucose 220 H POC Glucose 188 H Lactic Acid Calcium Phosphorus Magnesium Iron TIBC Transferrin C-Reactive Protein PTH Intact Urine WBC (Auto) Urine Creatinine Urine Microalbumin Urine Total Protein Crossmatch 07/03/17 07/03/17 07/03/17 06:19 06:35 08:42 WBC Hgb Hct MCV MCH MCHC RDW Plt Count Seg Neuts % (Manual) Lymphocytes % (Manual) Seg Neutrophils # Man Lymphocytes # (Manual) Monocytes # (Manual) POC ABG pH POC ABG pCO2 POC ABG pO2 Sodium Potassium Chloride Carbon Dioxide BUN Creatinine Glucose POC Glucose Lactic Acid 2.50 H* 2.20 H* Calcium Phosphorus Magnesium Iron TIBC Transferrin C-Reactive Protein PTH Intact Urine WBC (Auto) Urine Creatinine Urine Microalbumin Urine Total Protein Crossmatch See Detail 07/03/17 07/03/17 07/03/17 09:31 09:31 11:50 WBC Hgb 5.7 L* Hct 22.4 L MCV MCH MCHC RDW Plt Count Seg Neuts % (Manual) Lymphocytes % (Manual) Seg Neutrophils # Man Lymphocytes # (Manual) Monocytes # (Manual) POC ABG pH POC ABG pCO2 POC ABG pO2 Sodium Potassium Chloride Carbon Dioxide BUN Creatinine Glucose POC Glucose Lactic Acid 2.80 H* Calcium Phosphorus Magnesium Iron 12 L TIBC 534 H Transferrin C-Reactive Protein PTH Intact Urine WBC (Auto) Urine Creatinine Urine Microalbumin Urine Total Protein Crossmatch 07/03/17 07/03/17 07/03/17 16:50 16:50 Unknown WBC Hgb 9.7 L D Hct MCV MCH MCHC RDW Plt Count Seg Neuts % (Manual) Lymphocytes % (Manual) Seg Neutrophils # Man Lymphocytes # (Manual) Monocytes # (Manual) POC ABG pH POC ABG pCO2 POC ABG pO2 Sodium Potassium Chloride Carbon Dioxide BUN Creatinine Glucose POC Glucose Lactic Acid 2.30 H* Calcium Phosphorus Magnesium Iron TIBC Transferrin C-Reactive Protein PTH Intact Urine WBC (Auto) 18.0 H Urine Creatinine Urine Microalbumin Urine Total Protein Crossmatch 07/04/17 07/04/17 07/04/17 03:57 03:57 04:39 WBC 42.4 H* 42.8 H* Hgb 9.1 L 9.3 L Hct MCV 65 L 66 L MCH 19 L 20 L MCHC 29 L RDW 37.3 H 37.3 H Plt Count 120 L Seg Neuts % (Manual) 93.5 H Lymphocytes % (Manual) 2.5 L Seg Neutrophils # Man 40.0 H Lymphocytes # (Manual) 1.1 L Monocytes # (Manual) 1.1 H POC ABG pH POC ABG pCO2 POC ABG pO2 Sodium 134 L Potassium 3.5 L Chloride 95.4 L Carbon Dioxide 21 L BUN 6 L Creatinine 0.5 L Glucose 147 H POC Glucose Lactic Acid Calcium 7.9 L Phosphorus Magnesium Iron TIBC Transferrin C-Reactive Protein PTH Intact Urine WBC (Auto) Urine Creatinine Urine Microalbumin Urine Total Protein Crossmatch 07/04/17 07/04/17 07/05/17 12:09 17:11 08:21 WBC 56.3 H* Hgb 8.3 L Hct 29.1 L MCV 66 L MCH 19 L MCHC 28 L RDW 38.3 H Plt Count Seg Neuts % (Manual) 96.5 H Lymphocytes % (Manual) 1.0 L Seg Neutrophils # Man 54.3 H Lymphocytes # (Manual) 0.6 L Monocytes # (Manual) 1.4 H POC ABG pH POC ABG pCO2 POC ABG pO2 Sodium Potassium Chloride Carbon Dioxide BUN Creatinine Glucose POC Glucose 169 H 124 H Lactic Acid Calcium Phosphorus Magnesium Iron TIBC Transferrin C-Reactive Protein PTH Intact Urine WBC (Auto) Urine Creatinine Urine Microalbumin Urine Total Protein Crossmatch 07/05/17 07/05/17 07/05/17 08:21 10:55 22:34 WBC Hgb Hct MCV MCH MCHC RDW Plt Count Seg Neuts % (Manual) Lymphocytes % (Manual) Seg Neutrophils # Man Lymphocytes # (Manual) Monocytes # (Manual) POC ABG pH 7.185 L POC ABG pCO2 33.8 L POC ABG pO2 Sodium 135 L 135 L Potassium Chloride Carbon Dioxide 18 L 16 L BUN 25 H 27 H Creatinine 2.7 H D 2.9 H Glucose 115 H 119 H POC Glucose Lactic Acid Calcium 7.9 L 8.0 L Phosphorus Magnesium Iron TIBC Transferrin C-Reactive Protein PTH Intact Urine WBC (Auto) Urine Creatinine Urine Microalbumin Urine Total Protein Crossmatch 07/05/17 07/06/17 07/06/17 Unknown 05:17 07:28 WBC Hgb Hct MCV MCH MCHC RDW Plt Count Seg Neuts % (Manual) Lymphocytes % (Manual) Seg Neutrophils # Man Lymphocytes # (Manual) Monocytes # (Manual) POC ABG pH POC ABG pCO2 28.0 L POC ABG pO2 193 H Sodium Potassium Chloride 112.6 H Carbon Dioxide 15 L BUN 35 H Creatinine 4.0 H Glucose POC Glucose Lactic Acid Calcium 5.8 L* D Phosphorus Magnesium 1.20 L Iron TIBC Transferrin 148 L C-Reactive Protein PTH Intact Urine WBC (Auto) Urine Creatinine 237.2 H Urine Microalbumin 39.9 H Urine Total Protein 170 H Crossmatch 07/06/17 07/06/17 07/06/17 07:28 07:28 10:27 WBC 28.9 H Hgb 7.1 L Hct 24.5 L MCV 66 L MCH 19 L MCHC 29 L RDW 38.6 H Plt Count Seg Neuts % (Manual) Lymphocytes % (Manual) Seg Neutrophils # Man Lymphocytes # (Manual) Monocytes # (Manual) POC ABG pH POC ABG pCO2 POC ABG pO2 Sodium Potassium Chloride Carbon Dioxide BUN Creatinine Glucose POC Glucose Lactic Acid Calcium Phosphorus Magnesium Iron TIBC Transferrin C-Reactive Protein PTH Intact 285.9 H Urine WBC (Auto) Urine Creatinine Urine Microalbumin Urine Total Protein Crossmatch See Detail 05/06/2007/07/17 07/07/17 18:08 04:18 05:59 WBC 24.9 H Hgb 8.8 L Hct 28.0 L MCV 72 L MCH 23 L MCHC RDW 33.3 H Plt Count Seg Neuts % (Manual) Lymphocytes % (Manual) Seg Neutrophils # Man Lymphocytes # (Manual) Monocytes # (Manual) POC ABG pH POC ABG pCO2 27.5 L POC ABG pO2 61 L Sodium Potassium Chloride Carbon Dioxide BUN Creatinine Glucose POC Glucose Lactic Acid Calcium Phosphorus Magnesium Iron TIBC Transferrin C-Reactive Protein 26.20 H PTH Intact Urine WBC (Auto) Urine Creatinine Urine Microalbumin Urine Total Protein Crossmatch 07/07/17 07/07/17 07/08/17 05:59 05:59 04:22 WBC 21.3 H Hgb 8.9 L Hct 27.5 L MCV 71 L MCH 23 L MCHC RDW 35.0 H Plt Count Seg Neuts % (Manual) Lymphocytes % (Manual) Seg Neutrophils # Man Lymphocytes # (Manual) Monocytes # (Manual) POC ABG pH POC ABG pCO2 POC ABG pO2 Sodium Potassium Chloride Carbon Dioxide 17 L BUN 46 H Creatinine 4.8 H Glucose 103 H POC Glucose Lactic Acid Calcium 7.6 L D Phosphorus Magnesium 2.50 H Iron TIBC Transferrin C-Reactive Protein PTH Intact Urine WBC (Auto) Urine Creatinine Urine Microalbumin Urine Total Protein Crossmatch 07/08/17 07/08/17 07/08/17 04:22 04:22 05:40 WBC Hgb Hct MCV MCH MCHC RDW Plt Count Seg Neuts % (Manual) Lymphocytes % (Manual) Seg Neutrophils # Man Lymphocytes # (Manual) Monocytes # (Manual) POC ABG pH POC ABG pCO2 POC ABG pO2 158 H Sodium Potassium Chloride Carbon Dioxide 18 L BUN 56 H Creatinine 4.3 H Glucose 110 H POC Glucose Lactic Acid Calcium 8.3 L Phosphorus 4.80 H Magnesium 2.60 H Iron TIBC Transferrin C-Reactive Protein PTH Intact Urine WBC (Auto) Urine Creatinine Urine Microalbumin Urine Total Protein Crossmatch 07/08/17 07/09/17 07/09/17 12:36 04:30 04:30 WBC Hgb Hct MCV MCH MCHC RDW Plt Count Seg Neuts % (Manual) Lymphocytes % (Manual) Seg Neutrophils # Man Lymphocytes # (Manual) Monocytes # (Manual) POC ABG pH POC ABG pCO2 POC ABG pO2 Sodium Potassium 3.2 L D Chloride 96.3 L Carbon Dioxide BUN 60 H Creatinine 3.6 H Glucose 115 H POC Glucose 109 H Lactic Acid Calcium Phosphorus 4.80 H Magnesium Iron TIBC Transferrin C-Reactive Protein PTH Intact Urine WBC (Auto) Urine Creatinine Urine Microalbumin Urine Total Protein Crossmatch 07/09/17 07/09/17 07/09/17 04:51 12:26 17:51 WBC Hgb Hct MCV MCH MCHC RDW Plt Count Seg Neuts % (Manual) Lymphocytes % (Manual) Seg Neutrophils # Man Lymphocytes # (Manual) Monocytes # (Manual) POC ABG pH 7.522 H POC ABG pCO2 POC ABG pO2 67 L Sodium Potassium Chloride Carbon Dioxide BUN Creatinine Glucose POC Glucose 140 H 152 H Lactic Acid Calcium Phosphorus Magnesium Iron TIBC Transferrin C-Reactive Protein PTH Intact Urine WBC (Auto) Urine Creatinine Urine Microalbumin Urine Total Protein Crossmatch 07/09/17 07/10/17 07/10/17 23:48 03:33 05:30 WBC 24.0 H Hgb 9.0 L Hct 29.3 L MCV 69 L MCH 21 L MCHC RDW 35.9 H Plt Count 451 H Seg Neuts % (Manual) Lymphocytes % (Manual) Seg Neutrophils # Man Lymphocytes # (Manual) Monocytes # (Manual) POC ABG pH 7.593 H POC ABG pCO2 34.7 L POC ABG pO2 73 L Sodium Potassium Chloride Carbon Dioxide BUN Creatinine Glucose POC Glucose 149 H Lactic Acid Calcium Phosphorus Magnesium Iron TIBC Transferrin C-Reactive Protein PTH Intact Urine WBC (Auto) Urine Creatinine Urine Microalbumin Urine Total Protein Crossmatch 07/10/17 07/10/17 05:30 12:19 WBC Hgb Hct MCV MCH MCHC RDW Plt Count Seg Neuts % (Manual) Lymphocytes % (Manual) Seg Neutrophils # Man Lymphocytes # (Manual) Monocytes # (Manual) POC ABG pH POC ABG pCO2 POC ABG pO2 Sodium Potassium Chloride 96.8 L Carbon Dioxide 31 H BUN 61 H Creatinine 2.9 H Glucose 120 H POC Glucose 143 H Lactic Acid Calcium Phosphorus 5.20 H Magnesium Iron TIBC Transferrin C-Reactive Protein PTH Intact Urine WBC (Auto) Urine Creatinine Urine Microalbumin Urine Total Protein Crossmatch Chest x-ray: image reviewed (mild volume overload pattern) Allied health notes reviewed: nursing
--- NOTE | 2017-07-10 15:47 | XRay Report ---
FINAL REPORT EXAM: XR CHEST 1V AP HISTORY: Pneumonia TECHNIQUE: AP portable view of the chest PRIORS: CXR 07/06/2017 FINDINGS: Lines, tubes, and devices: Endotracheal tube, nasogastric tube, and left subclavian catheter are unchanged and all in satisfactory position. Lungs and pleura: Trachea is normal in position. Increased perihilar vascular congestion is seen with haziness in both lung bases suggesting probable pleural effusions tracking posteriorly. Findings are consistent with volume overload or CHF. Cardiomediastinal silhouette: Cardiac and mediastinal silhouettes are unremarkable. Other: Bony structures are intact. IMPRESSION: New perihilar vascular congestion and probable bilateral pleural effusions, worsening. Findings suggest volume overload versus CHF.
[2017-07-10 17:18] LABS: Myeloperoxidase Antibody <1.0 AI (<1.0)
--- NOTE | 2017-07-10 17:21 | Progress Note ---
Assessment and Plan Assessment and plan: Patient is a 42-year-old female with no significant past medical history significant for hypertension which she takes lisinopril 10 mg daily. etoh abuse who pw abdominal pain and diarrhea 1. Severe Sepsis due to gangrenous bowel; sp removal of near complete small intestine; lifelong TPN for nutrition, received abx 2. EMMA secondary to vasomotor nephropathy with underlying ATN; resolving 3. Peritoneal irritation due to infected bowel 4. Severe Anemia, Transfuse as need 5. Ischemic/Gangrenous Bowel 6. Worsening luekocytosis 7. Symptomatic Anemia 8. Hypertensive urgency-resolved 9. Menorraghia secondary to Fibroids 10. Etoh use disorder 11. Right liver lesion ?Hemangioma 12. Multiple electrolyte abnormalities 13. Hypothermia-Resolved 14. Cocain abuse per hx. Not mentioned on admission. Only alcohol which was minimized. 15. 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 Acute respiratory failure on MV >96 hours; continue vent, attempt to wean daily The high probability of a clinically significant, sudden or life threatening deterioration of the [GI, renal] system(s) required my full and direct attention , intervention and personal management. The aggregate critical care time was [35 ] minutes. This time is in addition to time spent performing reported procedures but includes the following: [X] Data Review and interpretation [X] Patient assessment and monitoring of vital signs [X] Documentation [X] Medication orders and management History Interval history: no vomiting, no agiation, no fever, no cough Hospitalist Physical - Constitutional Vitals: Temp Pulse Resp BP Pulse Ox 98.7 F 118 H 29 H 143/88 100 07/10/17 16:00 07/10/17 16:50 07/10/17 15:12 07/10/17 16:50 07/10/17 16:50 General appearance: Present: no acute distress - EENT Eyes: Present: PERRL ENT: clear oral mucosa - Neck Neck: Present: supple - Respiratory Respiratory effort: normal Respiratory: bilateral: CTA - Cardiovascular Rhythm: regular Heart Sounds: Present: S1 & S2 - Extremities Extremities: no ischemia Peripheral Pulses: within normal limits - Abdominal General gastrointestinal: soft, other (post surgical changes) - Integumentary Integumentary: Present: clear, warm, dry - Psychiatric Psychiatric: cooperative (intubated, but obeys commands) - Neurologic Neurologic: moves all extremities Results - Labs CBC & Chem 7: 07/13/17 10:43 07/17/17 07:00 Labs: Laboratory Last Values WBC 24.0 K/mm3 (4.5-11.0) H 07/10/17 05:30 RBC 4.22 M/mm3 (3.65-5.03) 07/10/17 05:30 Hgb 9.0 gm/dl (10.1-14.3) L 07/10/17 05:30 Hct 29.3 % (30.3-42.9) L 07/10/17 05:30 MCV 69 fl (79-97) L 07/10/17 05:30 MCH 21 pg (28-32) L 07/10/17 05:30 MCHC 31 % (30-34) 07/10/17 05:30 RDW 35.9 % (13.2-15.2) H 07/10/17 05:30 Plt Count 451 K/mm3 (140-440) H 07/10/17 05:30 Lymph % (Auto) [employer] 07/03/17 05:28 Frio % (Auto) [employer] 07/03/17 05:28 Eos % (Auto) [employer] 07/03/17 05:28 Baso % (Auto) [employer] 07/03/17 05:28 Lymph # [employer] 07/03/17 05:28 Frio # [employer] 07/03/17 05:28 Eos # [employer] 07/03/17 05:28 Baso # [employer] 07/03/17 05:28 Add Manual Diff Complete 07/05/17 08:21 Total Counted 200 07/05/17 08:21 Seg Neutrophils % [employer] 07/05/17 08:21 Seg Neuts % (Manual) 96.5 % (40.0-70.0) H 07/05/17 08:21 Band Neutrophils % 0 % 07/05/17 08:21 Lymphocytes % (Manual) 1.0 % (13.4-35.0) L 07/05/17 08:21 Reactive Lymphs % (Man) 0 % 07/05/17 08:21 Monocytes % (Manual) 2.5 % (0.0-7.3) 07/05/17 08:21 Eosinophils % (Manual) 0 % (0.0-4.3) 07/05/17 08:21 Basophils % (Manual) 0 % (0.0-1.8) 07/05/17 08:21 Metamyelocytes % 0 % 07/05/17 08:21 Myelocytes % 0 % 07/05/17 08:21 Promyelocytes % 0 % 07/05/17 08:21 Blast Cells % 0 % 07/05/17 08:21 Nucleated RBC % 0.5 % (0.0-0.9) 07/05/17 08:21 Seg Neutrophils # [employer] 07/03/17 05:28 Seg Neutrophils # Man 54.3 K/mm3 (1.8-7.7) H 07/05/17 08:21 Band Neutrophils # 0.0 K/mm3 07/05/17 08:21 Lymphocytes # (Manual) 0.6 K/mm3 (1.2-5.4) L 07/05/17 08:21 Abs React Lymphs (Man) 0.0 K/mm3 07/05/17 08:21 Monocytes # (Manual) 1.4 K/mm3 (0.0-0.8) H 07/05/17 08:21 Eosinophils # (Manual) 0.0 K/mm3 (0.0-0.4) 07/05/17 08:21 Basophils # (Manual) 0.0 K/mm3 (0.0-0.1) 07/05/17 08:21 Metamyelocytes # 0.0 K/mm3 07/05/17 08:21 Myelocytes # 0.0 K/mm3 07/05/17 08:21 Promyelocytes # 0.0 K/mm3 07/05/17 08:21 Blast Cells # 0.0 K/mm3 07/05/17 08:21 Pathologist Review 07/04/17 04:39 WBC Morphology Not Reportable 07/05/17 08:21 Hypersegmented Neuts Rare 07/05/17 08:21 Hyposegmented Neuts Not Reportable 07/05/17 08:21 Hypogranular Neuts Not Reportable 07/05/17 08:21 Smudge Cells Not Reportable 07/05/17 08:21 Toxic Granulation Not Reportable 07/05/17 08:21 Toxic Vacuolation Not Reportable 07/05/17 08:21 Dohle Bodies Not Reportable 07/05/17 08:21 Pelger-Huet Anomaly Not Reportable 07/05/17 08:21 Irma Rods Not Reportable 07/05/17 08:21 Platelet Estimate Cons 07/05/17 08:21 Clumped Platelets Not Reportable 07/05/17 08:21 Plt Clumps, EDTA Not Reportable 07/05/17 08:21 Large Platelets Few 07/05/17 08:21 Giant Platelets Not Reportable 07/05/17 08:21 Platelet Satelliting Not Reportable 07/05/17 08:21 Plt Morphology Comment Not Reportable 07/05/17 08:21 RBC Morphology Not Reportable 07/05/17 08:21 Dimorphic RBCs Not Reportable 07/05/17 08:21 Polychromasia Few 07/05/17 08:21 Hypochromasia 2+ 07/05/17 08:21 Poikilocytosis 1+ 07/05/17 08:21 Anisocytosis 3+ 07/05/17 08:21 Microcytosis 1+ 07/05/17 08:21 Macrocytosis Not Reportable 07/05/17 08:21 Spherocytes Not Reportable 07/05/17 08:21 Pappenheimer Bodies Not Reportable 07/05/17 08:21 Sickle Cells Not Reportable 07/05/17 08:21 Target Cells Rare 07/05/17 08:21 Tear Drop Cells Few 07/05/17 08:21 Ovalocytes Few 07/05/17 08:21 Helmet Cells Not Reportable 07/05/17 08:21 Barber-Damar Bodies Not Reportable 07/05/17 08:21 [place] Rings Not Reportable 07/05/17 08:21 Jamila Cells Not Reportable 07/05/17 08:21 Bite Cells Not Reportable 07/05/17 08:21 Crenated Cell Not Reportable 07/05/17 08:21 Elliptocytes Not Reportable 07/05/17 08:21 Acanthocytes (Spur) Not Reportable 07/05/17 08:21 Rouleaux Not Reportable 07/05/17 08:21 Hemoglobin C Crystals Not Reportable 07/05/17 08:21 Schistocytes Rare 07/05/17 08:21 Malaria parasites Not Reportable 07/05/17 08:21 Roberto Bodies Not Reportable 07/05/17 08:21 Haptoglobin 204 mg/dL (43-212) 07/03/17 09:31 Hem Pathologist Commnt No 07/05/17 08:21 PT 12.5 Sec. (12.2-14.9) 07/03/17 06:19 INR 0.89 (0.87-1.13) 07/03/17 06:19 APTT 24.6 Sec. (24.2-36.6) 07/03/17 09:31 Fibrinogen 350 mg/dl (211-480) 07/03/17 09:31 POC ABG pH 7.593 (7.35-7.45) H 07/10/17 03:33 POC ABG pCO2 34.7 (35-45) L 07/10/17 03:33 POC ABG pO2 73 (80-105) L 07/10/17 03:33 POC ABG HCO3 33.6 07/10/17 03:33 POC ABG Total CO2 35 07/10/17 03:33 POC ABG O2 Sat 97 07/10/17 03:33 POC ABG Base Excess 12 07/10/17 03:33 VBG pH 7.372 (7.320-7.420) 07/03/17 06:19 FiO2 30 % 07/10/17 03:33 Sodium 141 mmol/L (137-145) 07/10/17 05:30 Potassium 3.6 mmol/L (3.6-5.0) 07/10/17 05:30 Chloride 96.8 mmol/L (98-107) L 07/10/17 05:30 Carbon Dioxide 31 mmol/L (22-30) H 07/10/17 05:30 Anion Gap 17 mmol/L 07/10/17 05:30 BUN 61 mg/dL (7-17) H 07/10/17 05:30 Creatinine 2.9 mg/dL (0.7-1.2) H 07/10/17 05:30 Estimated GFR 21 ml/min 07/10/17 05:30 BUN/Creatinine Ratio 21 % 07/10/17 05:30 Glucose 120 mg/dL (65-100) H 07/10/17 05:30 POC Glucose 143 (70-105) H 07/10/17 12:19 Lactic Acid 0.90 mmol/L (0.7-2.0) 07/06/17 07:28 Calcium 8.7 mg/dL (8.4-10.2) 07/10/17 05:30 Phosphorus 5.20 mg/dL (2.5-4.5) H 07/10/17 05:30 Magnesium 1.70 mg/dL (1.7-2.3) 07/10/17 05:30 Iron 12 ug/dL (37-170) L 07/03/17 09:31 TIBC 534 mcg/dL (250-450) H 07/03/17 09:31 Transferrin 148 mg/dl (192-382) L 07/06/17 07:28 Ferritin 79.1 ng/mL (13.0-400.0) 07/06/17 07:28 Total Bilirubin 0.40 mg/dL (0.1-1.2) 07/03/17 05:28 AST 17 units/L (5-40) 07/03/17 05:28 ALT 10 units/L (7-56) 07/03/17 05:28 Alkaline Phosphatase 74 units/L (35-129) 07/03/17 05:28 C-Reactive Protein 26.20 mg/dL (0.00-1.30) H 07/06/17 18:08 NT-Pro-B Natriuret Pep 114.4 pg/mL (0-450) 07/07/17 12:21 Total Protein 7.5 g/dL (6.3-8.2) 07/03/17 05:28 Albumin 4.5 g/dL (3.9-5) 07/03/17 05:28 Albumin/Globulin Ratio 1.5 % 07/03/17 05:28 Triglycerides 103 mg/dL (2-149) 07/05/17 22:04 Lipase 18 units/L (13-60) 07/03/17 05:28 TSH 0.561 mlU/mL (0.270-4.200) 07/04/17 14:38 HCG, Qual Negative (Negative) 07/03/17 06:19 HCG, Quant < 2 mIU/mL (0-4) 07/05/17 15:50 PTH Intact 285.9 pg/mL (15-65) H 07/06/17 07:28 Urine Color Yellow (Yellow) 07/05/17 Unknown Urine Turbidity Clear (Clear) 07/05/17 Unknown Urine pH 5.0 (5.0-7.0) 07/05/17 Unknown Ur Specific [place] 1.021 (1.003-1.030) 07/05/17 Unknown Urine Protein 100 mg/dl mg/dL (Negative) 07/05/17 Unknown Urine Glucose (UA) 50 mg/dL (Negative) 07/05/17 Unknown Urine Ketones Tr mg/dL (Negative) 07/05/17 Unknown Urine Blood Sm (Negative) 07/05/17 Unknown Urine Nitrite Neg (Negative) 07/05/17 Unknown Urine Bilirubin Neg (Negative) 07/05/17 Unknown Urine Urobilinogen < 2.0 mg/dL (<2.0) 07/05/17 Unknown Ur Leukocyte Esterase Tr (Negative) 07/05/17 Unknown Urine WBC (Auto) < 1.0 /HPF (0.0-6.0) 07/05/17 Unknown Urine RBC (Auto) 10.0 /HPF (0.0-6.0) 07/05/17 Unknown U Epithel Cells (Auto) 9.0 /HPF (0-13.0) 07/05/17 Unknown Urine Bacteria (Auto) 2+ /HPF (Negative) 07/05/17 Unknown Urine Mucus Few /HPF 07/03/17 Unknown Urine Eosinophils None seen (None Seen) 07/05/17 Unknown Urine Creatinine 237.2 mg/dL (0.1-20.0) H 07/05/17 Unknown Urine Microalbumin 39.9 mg/dL (0.1-34.0) H 07/05/17 Unknown Microalb/Creat Ratio 168.2 ug/mg 07/05/17 Unknown Urine Sodium 18 mmol/L 07/05/17 Unknown Urine Total Protein 170 mg/dL (5-11.8) H 07/05/17 Unknown Proteinase 3 (PR3) Ab <1.0 AI (<1.0) 07/06/17 17:55 Myeloperoxidase Ab <1.0 AI (<1.0) 07/06/17 17:55 Hepatitis A IgM Ab Non-reactive (NonReactive) 07/06/17 18:07 Hep Bs Antigen Non-reactive (Negative) 07/06/17 18:07 Hep B Core IgM Ab Non-reactive (NonReactive) 07/06/17 18:07 Hepatitis C Antibody Non-reactive (NonReactive) 07/06/17 18:07 HIV 1&2 Antibody Rapid Non react (Non React) 07/06/17 18:09 HIV P24 Antigen Non react (Non React) 07/06/17 18:09 Blood Type O POSITIVE 07/06/17 10:27 Antibody Screen Negative 07/06/17 10:27 Crossmatch See Detail 07/06/17 10:27
[2017-07-10] MEDS ORDERED: TPN ADULT 2,400 ML IV SCH (20:00)
--- NOTE | 2017-07-11 03:11 | XRay Report ---
FINAL REPORT PROCEDURE: XR CHEST 1V AP TECHNIQUE: Chest radiograph anteroposterior view. CPT 04682 HISTORY: follow up respiratory failure COMPARISON: 07/10/2017 FINDINGS: Heart: Normal. Mediastinum/Vessels: Normal. Lungs/Pleural space: Lungs are expanded. There are bilateral perihilar pulmonary infiltrates greater on the right. There is a small left pleural effusion. There is no pneumothorax.. Bony thorax: No acute osseous abnormality. Life support devices: The endotracheal tube is in the mid trachea. The NG tube is in the stomach. There is a left-sided central venous catheter. The tip is in the superior vena cava.. IMPRESSION: The heart size is normal. Lungs are expanded. There are bilateral perihilar pulmonary infiltrates greater on the right. There is a small left pleural effusion. There is no pneumothorax.. The endotracheal tube is in the mid trachea. The NG tube is in the stomach. There is a left-sided central venous catheter. The tip is in the superior vena cava..
[2017-07-11] MEDS: ZOSYN/NS 2.25 GM/50ML 2.25 GM/50 ML BAG IV SCH ×4 (04:00→21:30)
[2017-07-11 06:04] LABS: dRVVT Confirm Negative (Negative)
[2017-07-11] MEDS: HEPARIN SUB-Q SCH ×3 (06:21→22:15)
[2017-07-11 07:16] LABS: Hemoglobin 8.4 gm/dl (10.1-14.3); Mean Corpuscular HGB Conc 32 % (30-34); Mean Corpuscular Volume 71 fl (79-97); Platelet Count 469 K/mm3 (140-440); Red Blood Count 3.65 M/mm3 (3.65-5.03)
[2017-07-11 07:38] LABS: Mean Corpuscular Hemoglobin 23 pg (28-32); Red Cell Distribution Width 35.6 % (13.2-15.2)
--- NOTE | 2017-07-11 08:59 | Progress Note ---
Assessment and Plan - Patient Problems (1) Ischemia, bowel Current Visit: Yes Status: Acute Plan to address problem: Pt stable. s/p enteroenterostomy and closure of abdominal wall - 07/09 - POD#2. Moderate bilious drainage from NGT. - Ok to extubate from my standpoint - Wound not start tube feeds. Cont TPN. Once bowel function resumes, then can remove NGT. - Incision looks good. No clinical signs to suggest anastomotic leak Subjective Date of service: 07/11/17 Patient Reports: Positive: other (no events o/n) Objective Vital Signs - 12hr 07/10/17 07/10/17 07/10/17 21:00 21:15 21:30 Temperature Pulse Rate 118 H 114 H 118 H Respiratory 15 15 16 Rate Respiratory Rate [abd] Blood Pressure 155/91 155/91 172/94 O2 Sat by Pulse 100 99 99 Oximetry 07/10/17 07/10/17 07/10/17 21:45 22:00 22:15 Temperature 99.4 F Pulse Rate 116 H 118 H 113 H Respiratory 16 17 14 Rate Respiratory 18 Rate [abd] Blood Pressure 172/94 189/91 189/109 O2 Sat by Pulse 100 100 100 Oximetry 07/10/17 07/10/17 07/10/17 22:22 22:30 22:45 Temperature Pulse Rate 114 H 117 H 116 H Respiratory 16 15 Rate Respiratory Rate [abd] Blood Pressure 189/109 146/83 146/83 O2 Sat by Pulse 99 99 Oximetry 07/10/17 07/10/17 07/10/17 23:00 23:15 23:17 Temperature Pulse Rate 120 H 119 H 119 H Respiratory 17 17 16 Rate Respiratory Rate [abd] Blood Pressure 150/73 150/73 150/73 O2 Sat by Pulse 98 98 98 Oximetry 07/10/17 07/10/17 07/10/17 23:27 23:30 23:45 Temperature Pulse Rate 119 H 117 H 117 H Respiratory 15 15 Rate Respiratory Rate [abd] Blood Pressure 150/73 132/75 132/75 O2 Sat by Pulse 98 98 99 Oximetry 07/11/17 07/11/17 07/11/17 00:00 00:15 00:30 Temperature Pulse Rate 116 H 113 H 113 H Respiratory 18 16 16 Rate Respiratory Rate [abd] Blood Pressure 141/75 132/75 142/78 O2 Sat by Pulse 100 99 99 Oximetry 07/11/17 07/11/17 07/11/17 00:45 01:00 01:15 Temperature Pulse Rate 112 H 110 H 112 H Respiratory 15 15 14 Rate Respiratory Rate [abd] Blood Pressure 141/75 143/77 142/78 O2 Sat by Pulse 99 99 99 Oximetry 07/11/17 07/11/17 07/11/17 01:30 01:45 02:00 Temperature Pulse Rate 111 H 113 H 112 H Respiratory 15 16 14 Rate Respiratory Rate [abd] Blood Pressure 142/74 142/74 139/79 O2 Sat by Pulse 99 99 100 Oximetry 07/11/17 07/11/17 07/11/17 02:15 02:30 02:45 Temperature Pulse Rate 109 H 115 H 112 H Respiratory 15 14 15 Rate Respiratory Rate [abd] Blood Pressure 139/79 162/88 162/88 O2 Sat by Pulse 100 100 100 Oximetry 07/11/17 07/11/17 07/11/17 03:00 03:15 03:30 Temperature Pulse Rate 116 H 121 H 110 H Respiratory 14 18 13 Rate Respiratory Rate [abd] Blood Pressure 150/88 150/88 158/88 O2 Sat by Pulse 99 100 100 Oximetry 07/11/17 07/11/17 07/11/17 03:45 03:50 04:00 Temperature Pulse Rate 108 H 115 H 109 H Respiratory 14 18 Rate Respiratory Rate [abd] Blood Pressure 158/88 158/88 160/90 O2 Sat by Pulse 100 99 100 Oximetry 07/11/17 07/11/17 07/11/17 04:15 04:30 04:45 Temperature Pulse Rate 108 H 106 H 110 H Respiratory 14 15 14 Rate Respiratory Rate [abd] Blood Pressure 160/90 144/87 144/87 O2 Sat by Pulse 100 100 100 Oximetry 07/11/17 07/11/17 07/11/17 05:00 05:15 05:31 Temperature Pulse Rate 115 H 124 H 125 H Respiratory 19 14 18 Rate Respiratory Rate [abd] Blood Pressure 184/105 144/87 144/87 O2 Sat by Pulse 99 100 100 Oximetry 07/11/17 07/11/17 07/11/17 05:45 06:00 06:15 Temperature Pulse Rate 121 H 118 H 115 H Respiratory 15 15 14 Rate Respiratory Rate [abd] Blood Pressure 144/87 160/94 160/94 O2 Sat by Pulse 99 100 100 Oximetry 07/11/17 07/11/17 07/11/17 06:30 06:45 07:00 Temperature Pulse Rate 116 H 110 H 108 H Respiratory 14 15 14 Rate Respiratory Rate [abd] Blood Pressure 160/83 160/83 140/75 O2 Sat by Pulse 100 100 100 Oximetry 07/11/17 07/11/17 07/11/17 07:15 07:30 07:45 Temperature Pulse Rate 107 H 100 H 108 H Respiratory 14 13 14 Rate Respiratory Rate [abd] Blood Pressure 140/75 140/75 140/75 O2 Sat by Pulse 100 100 100 Oximetry 07/11/17 07/11/17 08:00 08:36 Temperature 98.1 F Pulse Rate 114 H Respiratory Rate Respiratory Rate [abd] Blood Pressure 179/92 O2 Sat by Pulse Oximetry - General physical appearance no distress, other (intubated, sedated) - Abdomen soft, tender (generalized - based on facial grimaces with palpation; appears mild), bowel sounds hypoactive, not distended, not guarding, not rigid, other ( Incision C/D/I) - Integumentary no rash, no growths, no abnormal pigmentation - Labs 07/11/17 06:30 07/11/17 06:30 Diabetes panel 07/11/17 Range/Units 06:30 Sodium 145 (137-145) mmol/L Potassium 3.9 (3.6-5.0) mmol/L Chloride 99.8 (98-107) mmol/L Carbon Dioxide 32 H (22-30) mmol/L BUN 58 H (7-17) mg/dL Creatinine 2.4 H (0.7-1.2) mg/dL Glucose 111 H (65-100) mg/dL Calcium 9.0 (8.4-10.2) mg/dL Calcium panel 07/11/17 07/11/17 Range/Units 06:30 06:30 Calcium 9.0 (8.4-10.2) mg/dL Phosphorus 6.10 H (2.5-4.5) mg/dL Pituitary panel 07/11/17 Range/Units 06:30 Sodium 145 (137-145) mmol/L Potassium 3.9 (3.6-5.0) mmol/L Chloride 99.8 (98-107) mmol/L Carbon Dioxide 32 H (22-30) mmol/L BUN 58 H (7-17) mg/dL Creatinine 2.4 H (0.7-1.2) mg/dL Glucose 111 H (65-100) mg/dL Calcium 9.0 (8.4-10.2) mg/dL Adrenal panel 07/11/17 Range/Units 06:30 Sodium 145 (137-145) mmol/L Potassium 3.9 (3.6-5.0) mmol/L Chloride 99.8 (98-107) mmol/L Carbon Dioxide 32 H (22-30) mmol/L BUN 58 H (7-17) mg/dL Creatinine 2.4 H (0.7-1.2) mg/dL Glucose 111 H (65-100) mg/dL Calcium 9.0 (8.4-10.2) mg/dL
--- NOTE | 2017-07-11 09:01 | Progress Note ---
Assessment and Plan Assessment: 1) Severe sepsis: better leukocytosis 56-->28->21-->24-->20K; etiology: bowel ischemia - gangrene of majority of small bowel and right colon. 2) Peritonitis: secondary to gangrene of majority of small bowel and right colon. Approximately 30 cm of viable small bowel from ligament of treitz, transverse colon and remainder of colon viable. Unclear etiology: ?cocaine ? emboli -S/P Diagnostic laparoscopy, converted to exploratory laparotomy, small bowel resection, right hemicolectomy, temporary closure of abdomen on 07/06 -S/P Peritoneal Washing, enterocolostomy and closure of abdominal wall on 07/09 -TTE EF >55 no clots -CRP=26 -HIV neg -Viral hepatitis neg -Path - benign gangrenous small bowel, colon and appendix, no malignancy -ANCA neg 3) Nausea, vomiting, abdominal pain and diarrhea: due to bowel gangrene -CT - bowels were normal -repeat CT w contrast showed multiple non distended small and large bowel loops ? ileus, no evidence of colitis or enteritis 4) Hypertensive urgency 5) Vaginal bleeding: from fibroids. CT showed uterine fibroids, 2.3 c left ovarian cyst. 6) Right liver lesion ? hemangioma. Viral hep neg 7) Small pericardial effusion 8) MEMA -better 9) Severe anemia: prob from fibroids Recommendations: -continue zosyn and fluconazole for now- D7/10 -f/u CHELSEA, C3/C4 Thanks for consultation Rachel Bryant MD Subjective Date of service: 07/11/17 Principal diagnosis: Post-Op Resp Failure on MVS; Ischemic Bowel s/p Ex-Lap; EMMA Interval history: sedated on the vent, no need for pressors, no fever Micro: Blood cx 07/03 ngtd Urine cx: 07/03 10-100K mixed bacteria Tracheal asp : 07/06 ngtd Abx: zosyn 07/09 Fluconazole 07/05 Previous Abx: Zosyn Levaquin Flagyl Vanco Meropenem 07/05-07/09 Objective - Exam Narrative Exam: Alert intubated on the vent JULIANN, clear OP Neck no LN Lungs CTA sanchez CV tachy Abd soft +surg wound covered with dressings Ext no edema Skin no rash Neuro sedated - Constitutional Vitals: Vital Signs Temp Pulse Resp BP Pulse Ox 98.1 F 114 H 14 179/92 100 05/09/18 08:00 07/11/17 08:36 07/11/17 07:45 07/11/17 08:36 07/11/17 07:45 Temperature -Last 24 Hours Temperature 98.1 F Temperature 99.4 F Temperature 98.7 F Temperature 99.1 F - Labs CBC & Chem 7: 07/11/17 06:30 07/11/17 06:30 Labs: Abnormal lab results 07/06/17 07/10/17 07/10/17 Range/Units 17:55 12:19 17:59 WBC (4.5-11.0) K/mm3 Hgb (10.1-14.3) gm/dl Hct (30.3-42.9) % MCV (79-97) fl MCH (28-32) pg RDW (13.2-15.2) % Plt Count (140-440) K/mm3 Lupus Anticoagulant see below H LA PTT Baseline 47 H (<=40) sec Carbon Dioxide (22-30) mmol/L BUN (7-17) mg/dL Creatinine (0.7-1.2) mg/dL Glucose (65-100) mg/dL POC Glucose 143 H 147 H (70-105) Phosphorus (2.5-4.5) mg/dL Magnesium (1.7-2.3) mg/dL 07/10/17 07/11/17 07/11/17 Range/Units 23:51 06:30 06:30 WBC 20.2 H (4.5-11.0) K/mm3 Hgb 8.4 L (10.1-14.3) gm/dl Hct 26.0 L (30.3-42.9) % MCV 71 L (79-97) fl MCH 23 L (28-32) pg RDW 35.6 H (13.2-15.2) % Plt Count 469 H (140-440) K/mm3 Lupus Anticoagulant LA PTT Baseline (<=40) sec Carbon Dioxide 32 H (22-30) mmol/L BUN 58 H (7-17) mg/dL Creatinine 2.4 H (0.7-1.2) mg/dL Glucose 111 H (65-100) mg/dL POC Glucose 139 H (70-105) Phosphorus (2.5-4.5) mg/dL Magnesium (1.7-2.3) mg/dL 07/11/17 Range/Units 06:30 WBC (4.5-11.0) K/mm3 Hgb (10.1-14.3) gm/dl Hct (30.3-42.9) % MCV (79-97) fl MCH (28-32) pg RDW (13.2-15.2) % Plt Count (140-440) K/mm3 Lupus Anticoagulant LA PTT Baseline (<=40) sec Carbon Dioxide (22-30) mmol/L BUN (7-17) mg/dL Creatinine (0.7-1.2) mg/dL Glucose (65-100) mg/dL POC Glucose (70-105) Phosphorus 6.10 H (2.5-4.5) mg/dL Magnesium 1.60 L (1.7-2.3) mg/dL
[2017-07-11] MEDS: APRESOLINE IV PRN ×3 (09:09→21:00)
[2017-07-11] MEDS: DIFLUCAN 200 MG/100 ML BAG IV SCH (09:42)
[2017-07-11] MEDS: PEPCID IV SCH (09:43)
[2017-07-11 12:33] LABS: ANA Screen, IFA Negative (Negative)
--- NOTE | 2017-07-11 12:43 | Progress Note ---
Assessment and Plan Postoperative respiratory failure, now on mechanical ventilatory support Sepsis syndrome. Ischemic bowel, possibly secondary to embolic event vs related to drug abuse H/O Cocaine use with possibility of arterial spasm. Acute kidney injury. Leukocytosis. Uncontrolled hypertension. Severe anemia. Drug abuse. Alcohol abuse - continue daytime SBT's but rest on AC overnight - reduced set rate to 12/min - continue daily SAT's - continue anti-infectives per ID recs - keep NPO - continue TPN per surgery - continue GI & VTE prophylaxis - wound care per surgery / WCT - gentle hydration - azotemia per nephrology (non-oliguric now) - GI & VTE prophylaxis - flu & pneumovax per protocol ...30' CCT Subjective Date of service: 07/11/17 Principal diagnosis: Post-Op Resp Failure on MVS; Ischemic Bowel s/p Ex-Lap; EMMA Interval history: Patient is seen today for: Post-Op Resp Failure on MVS; Ischemic Bowel s/p Ex- Lap; EMMA Seen and examined at bedside; 24hour events reviewed; nursing and respiratory care staff consulted; no adverse overnight events reported to me; resting peacefully; SBT's started but tolerating tenuously; No N/V/F/C; no gross bleeding Objective Vital Signs - 12hr 07/11/17 07/11/17 07/11/17 00:45 01:00 01:15 Temperature Pulse Rate 112 H 110 H 112 H Respiratory 15 15 14 Rate Blood Pressure 141/75 143/77 142/78 O2 Sat by Pulse 99 99 99 Oximetry 07/11/17 07/11/17 07/11/17 01:30 01:45 02:00 Temperature Pulse Rate 111 H 113 H 112 H Respiratory 15 16 14 Rate Blood Pressure 142/74 142/74 139/79 O2 Sat by Pulse 99 99 100 Oximetry 07/11/17 07/11/17 07/11/17 02:15 02:30 02:45 Temperature Pulse Rate 109 H 115 H 112 H Respiratory 15 14 15 Rate Blood Pressure 139/79 162/88 162/88 O2 Sat by Pulse 100 100 100 Oximetry 07/11/17 07/11/17 07/11/17 03:00 03:15 03:30 Temperature Pulse Rate 116 H 121 H 110 H Respiratory 14 18 13 Rate Blood Pressure 150/88 150/88 158/88 O2 Sat by Pulse 99 100 100 Oximetry 07/11/17 07/11/17 07/11/17 03:45 03:50 04:00 Temperature Pulse Rate 108 H 115 H 109 H Respiratory 14 18 Rate Blood Pressure 158/88 158/88 160/90 O2 Sat by Pulse 100 99 100 Oximetry 07/11/17 07/11/17 07/11/17 04:15 04:30 04:45 Temperature Pulse Rate 108 H 106 H 110 H Respiratory 14 15 14 Rate Blood Pressure 160/90 144/87 144/87 O2 Sat by Pulse 100 100 100 Oximetry 07/11/17 07/11/17 07/11/17 05:00 05:15 05:31 Temperature Pulse Rate 115 H 124 H 125 H Respiratory 19 14 18 Rate Blood Pressure 184/105 144/87 144/87 O2 Sat by Pulse 99 100 100 Oximetry 07/11/17 07/11/17 07/11/17 05:45 06:00 06:15 Temperature Pulse Rate 121 H 118 H 115 H Respiratory 15 15 14 Rate Blood Pressure 144/87 160/94 160/94 O2 Sat by Pulse 99 100 100 Oximetry 07/11/17 07/11/17 07/11/17 06:30 06:45 07:00 Temperature Pulse Rate 116 H 110 H 108 H Respiratory 14 15 14 Rate Blood Pressure 160/83 160/83 140/75 O2 Sat by Pulse 100 100 100 Oximetry 07/11/17 07/11/17 07/11/17 07:15 07:30 07:45 Temperature Pulse Rate 107 H 100 H 108 H Respiratory 14 13 14 Rate Blood Pressure 140/75 140/75 140/75 O2 Sat by Pulse 100 100 100 Oximetry 07/11/17 07/11/17 07/11/17 08:00 08:36 09:09 Temperature 98.1 F Pulse Rate 114 H 113 H Respiratory Rate Blood Pressure 179/92 189/96 O2 Sat by Pulse Oximetry Constitutional: no acute distress, other (sedated) Eyes: non-icteric ENT: oropharynx moist, other (ETT 23 cm IVA) Neck: supple, no lymphadenopathy, other (no thyromegaly) Effort: mildly labored Ascultation: Bilateral: diminished breath sounds (bases), rhonchi Percussion: Bilateral: not dull Cardiovascular: regular rate and rhythm, other (No R/M) Gastrointestinal: hypoactive bowel sounds, non-tender, non-distended, other (no palpable HSM; clean dressing over abdominal incision site) Integumentary: normal Extremities: no cyanosis, no edema, pulses normal, no ischemia or petechiae Neurologic: normal mental status, non-focal exam, pupils equal and round, CN II- XII normal Psychiatric: mood appropriate, affect normal CBC and BMP: 07/20/17 12:30 07/21/17 06:00 ABG, PT/INR, D-dimer: ABG POC ABG pH 7.485 (7.35-7.45) H 07/11/17 08:54 POC ABG pCO2 43.9 (35-45) 07/11/17 08:54 POC ABG pO2 83 (80-105) 07/11/17 08:54 POC ABG HCO3 33.1 07/11/17 08:54 POC ABG Total CO2 34 07/11/17 08:54 POC ABG O2 Sat 97 07/11/17 08:54 PT/INR, D-dimer PT 12.5 Sec. (12.2-14.9) 07/03/17 06:19 INR 0.89 (0.87-1.13) 07/03/17 06:19 Abnormal lab findings: Abnormal Labs 07/03/17 07/03/17 07/03/17 05:11 05:28 05:28 WBC 12.9 H Hgb 5.6 L* Hct 22.3 L MCV 59 L MCH 15 L MCHC 25 L RDW 33.3 H Plt Count 125 L Seg Neuts % (Manual) 75.0 H Lymphocytes % (Manual) Seg Neutrophils # Man 9.7 H Lymphocytes # (Manual) Monocytes # (Manual) Lupus Anticoagulant LA PTT Baseline POC ABG pH POC ABG pCO2 POC ABG pO2 Sodium Potassium 3.0 L Chloride Carbon Dioxide BUN Creatinine 0.6 L Glucose 220 H POC Glucose 188 H Lactic Acid Calcium Phosphorus Magnesium Iron TIBC Transferrin C-Reactive Protein PTH Intact Urine WBC (Auto) Urine Creatinine Urine Microalbumin Urine Total Protein Crossmatch 07/03/17 07/03/17 07/03/17 06:19 06:35 08:42 WBC Hgb Hct MCV MCH MCHC RDW Plt Count Seg Neuts % (Manual) Lymphocytes % (Manual) Seg Neutrophils # Man Lymphocytes # (Manual) Monocytes # (Manual) Lupus Anticoagulant LA PTT Baseline POC ABG pH POC ABG pCO2 POC ABG pO2 Sodium Potassium Chloride Carbon Dioxide BUN Creatinine Glucose POC Glucose Lactic Acid 2.50 H* 2.20 H* Calcium Phosphorus Magnesium Iron TIBC Transferrin C-Reactive Protein PTH Intact Urine WBC (Auto) Urine Creatinine Urine Microalbumin Urine Total Protein Crossmatch See Detail 07/03/17 07/03/17 07/03/17 09:31 09:31 11:50 WBC Hgb 5.7 L* Hct 22.4 L MCV MCH MCHC RDW Plt Count Seg Neuts % (Manual) Lymphocytes % (Manual) Seg Neutrophils # Man Lymphocytes # (Manual) Monocytes # (Manual) Lupus Anticoagulant LA PTT Baseline POC ABG pH POC ABG pCO2 POC ABG pO2 Sodium Potassium Chloride Carbon Dioxide BUN Creatinine Glucose POC Glucose Lactic Acid 2.80 H* Calcium Phosphorus Magnesium Iron 12 L TIBC 534 H Transferrin C-Reactive Protein PTH Intact Urine WBC (Auto) Urine Creatinine Urine Microalbumin Urine Total Protein Crossmatch 07/03/17 07/03/17 07/03/17 16:50 16:50 Unknown WBC Hgb 9.7 L D Hct MCV MCH MCHC RDW Plt Count Seg Neuts % (Manual) Lymphocytes % (Manual) Seg Neutrophils # Man Lymphocytes # (Manual) Monocytes # (Manual) Lupus Anticoagulant LA PTT Baseline POC ABG pH POC ABG pCO2 POC ABG pO2 Sodium Potassium Chloride Carbon Dioxide BUN Creatinine Glucose POC Glucose Lactic Acid 2.30 H* Calcium Phosphorus Magnesium Iron TIBC Transferrin C-Reactive Protein PTH Intact Urine WBC (Auto) 18.0 H Urine Creatinine Urine Microalbumin Urine Total Protein Crossmatch 07/04/17 07/04/17 07/04/17 03:57 03:57 04:39 WBC 42.4 H* 42.8 H* Hgb 9.1 L 9.3 L Hct MCV 65 L 66 L MCH 19 L 20 L MCHC 29 L RDW 37.3 H 37.3 H Plt Count 120 L Seg Neuts % (Manual) 93.5 H Lymphocytes % (Manual) 2.5 L Seg Neutrophils # Man 40.0 H Lymphocytes # (Manual) 1.1 L Monocytes # (Manual) 1.1 H Lupus Anticoagulant LA PTT Baseline POC ABG pH POC ABG pCO2 POC ABG pO2 Sodium 134 L Potassium 3.5 L Chloride 95.4 L Carbon Dioxide 21 L BUN 6 L Creatinine 0.5 L Glucose 147 H POC Glucose Lactic Acid Calcium 7.9 L Phosphorus Magnesium Iron TIBC Transferrin C-Reactive Protein PTH Intact Urine WBC (Auto) Urine Creatinine Urine Microalbumin Urine Total Protein Crossmatch 07/04/17 07/04/17 07/05/17 12:09 17:11 08:21 WBC 56.3 H* Hgb 8.3 L Hct 29.1 L MCV 66 L MCH 19 L MCHC 28 L RDW 38.3 H Plt Count Seg Neuts % (Manual) 96.5 H Lymphocytes % (Manual) 1.0 L Seg Neutrophils # Man 54.3 H Lymphocytes # (Manual) 0.6 L Monocytes # (Manual) 1.4 H Lupus Anticoagulant LA PTT Baseline POC ABG pH POC ABG pCO2 POC ABG pO2 Sodium Potassium Chloride Carbon Dioxide BUN Creatinine Glucose POC Glucose 169 H 124 H Lactic Acid Calcium Phosphorus Magnesium Iron TIBC Transferrin C-Reactive Protein PTH Intact Urine WBC (Auto) Urine Creatinine Urine Microalbumin Urine Total Protein Crossmatch 07/05/17 07/05/17 07/05/17 08:21 10:55 22:34 WBC Hgb Hct MCV MCH MCHC RDW Plt Count Seg Neuts % (Manual) Lymphocytes % (Manual) Seg Neutrophils # Man Lymphocytes # (Manual) Monocytes # (Manual) Lupus Anticoagulant LA PTT Baseline POC ABG pH 7.185 L POC ABG pCO2 33.8 L POC ABG pO2 Sodium 135 L 135 L Potassium Chloride Carbon Dioxide 18 L 16 L BUN 25 H 27 H Creatinine 2.7 H D 2.9 H Glucose 115 H 119 H POC Glucose Lactic Acid Calcium 7.9 L 8.0 L Phosphorus Magnesium Iron TIBC Transferrin C-Reactive Protein PTH Intact Urine WBC (Auto) Urine Creatinine Urine Microalbumin Urine Total Protein Crossmatch 07/05/17 07/06/17 07/06/17 Unknown 05:17 07:28 WBC Hgb Hct MCV MCH MCHC RDW Plt Count Seg Neuts % (Manual) Lymphocytes % (Manual) Seg Neutrophils # Man Lymphocytes # (Manual) Monocytes # (Manual) Lupus Anticoagulant LA PTT Baseline POC ABG pH POC ABG pCO2 28.0 L POC ABG pO2 193 H Sodium Potassium Chloride 112.6 H Carbon Dioxide 15 L BUN 35 H Creatinine 4.0 H Glucose POC Glucose Lactic Acid Calcium 5.8 L* D Phosphorus Magnesium 1.20 L Iron TIBC Transferrin 148 L C-Reactive Protein PTH Intact Urine WBC (Auto) Urine Creatinine 237.2 H Urine Microalbumin 39.9 H Urine Total Protein 170 H Crossmatch 07/06/17 07/06/17 07/06/17 07:28 07:28 10:27 WBC 28.9 H Hgb 7.1 L Hct 24.5 L MCV 66 L MCH 19 L MCHC 29 L RDW 38.6 H Plt Count Seg Neuts % (Manual) Lymphocytes % (Manual) Seg Neutrophils # Man Lymphocytes # (Manual) Monocytes # (Manual) Lupus Anticoagulant LA PTT Baseline POC ABG pH POC ABG pCO2 POC ABG pO2 Sodium Potassium Chloride Carbon Dioxide BUN Creatinine Glucose POC Glucose Lactic Acid Calcium Phosphorus Magnesium Iron TIBC Transferrin C-Reactive Protein PTH Intact 285.9 H Urine WBC (Auto) Urine Creatinine Urine Microalbumin Urine Total Protein Crossmatch See Detail 07/06/17 07/06/17 07/07/17 17:55 18:08 04:18 WBC Hgb Hct MCV MCH MCHC RDW Plt Count Seg Neuts % (Manual) Lymphocytes % (Manual) Seg Neutrophils # Man Lymphocytes # (Manual) Monocytes # (Manual) Lupus Anticoagulant see below H LA PTT Baseline 47 H POC ABG pH POC ABG pCO2 27.5 L POC ABG pO2 61 L Sodium Potassium Chloride Carbon Dioxide BUN Creatinine Glucose POC Glucose Lactic Acid Calcium Phosphorus Magnesium Iron TIBC Transferrin C-Reactive Protein 26.20 H PTH Intact Urine WBC (Auto) Urine Creatinine Urine Microalbumin Urine Total Protein Crossmatch 07/07/17 07/07/17 07/07/17 05:59 05:59 05:59 WBC 24.9 H Hgb 8.8 L Hct 28.0 L MCV 72 L MCH 23 L MCHC RDW 33.3 H Plt Count Seg Neuts % (Manual) Lymphocytes % (Manual) Seg Neutrophils # Man Lymphocytes # (Manual) Monocytes # (Manual) Lupus Anticoagulant LA PTT Baseline POC ABG pH POC ABG pCO2 POC ABG pO2 Sodium Potassium Chloride Carbon Dioxide 17 L BUN 46 H Creatinine 4.8 H Glucose 103 H POC Glucose Lactic Acid Calcium 7.6 L D Phosphorus Magnesium 2.50 H Iron TIBC Transferrin C-Reactive Protein PTH Intact Urine WBC (Auto) Urine Creatinine Urine Microalbumin Urine Total Protein Crossmatch 07/08/17 07/08/17 07/08/17 04:22 04:22 04:22 WBC 21.3 H Hgb 8.9 L Hct 27.5 L MCV 71 L MCH 23 L MCHC RDW 35.0 H Plt Count Seg Neuts % (Manual) Lymphocytes % (Manual) Seg Neutrophils # Man Lymphocytes # (Manual) Monocytes # (Manual) Lupus Anticoagulant LA PTT Baseline POC ABG pH POC ABG pCO2 POC ABG pO2 Sodium Potassium Chloride Carbon Dioxide 18 L BUN 56 H Creatinine 4.3 H Glucose 110 H POC Glucose Lactic Acid Calcium 8.3 L Phosphorus 4.80 H Magnesium 2.60 H Iron TIBC Transferrin C-Reactive Protein PTH Intact Urine WBC (Auto) Urine Creatinine Urine Microalbumin Urine Total Protein Crossmatch 07/08/17 07/08/17 07/09/17 05:40 12:36 04:30 WBC Hgb Hct MCV MCH MCHC RDW Plt Count Seg Neuts % (Manual) Lymphocytes % (Manual) Seg Neutrophils # Man Lymphocytes # (Manual) Monocytes # (Manual) Lupus Anticoagulant LA PTT Baseline POC ABG pH POC ABG pCO2 POC ABG pO2 158 H Sodium Potassium 3.2 L D Chloride 96.3 L Carbon Dioxide BUN 60 H Creatinine 3.6 H Glucose 115 H POC Glucose 109 H Lactic Acid Calcium Phosphorus Magnesium Iron TIBC Transferrin C-Reactive Protein PTH Intact Urine WBC (Auto) Urine Creatinine Urine Microalbumin Urine Total Protein Crossmatch 07/09/17 07/09/17 07/09/17 04:30 04:51 12:26 WBC Hgb Hct MCV MCH MCHC RDW Plt Count Seg Neuts % (Manual) Lymphocytes % (Manual) Seg Neutrophils # Man Lymphocytes # (Manual) Monocytes # (Manual) Lupus Anticoagulant LA PTT Baseline POC ABG pH 7.522 H POC ABG pCO2 POC ABG pO2 67 L Sodium Potassium Chloride Carbon Dioxide BUN Creatinine Glucose POC Glucose 140 H Lactic Acid Calcium Phosphorus 4.80 H Magnesium Iron TIBC Transferrin C-Reactive Protein PTH Intact Urine WBC (Auto) Urine Creatinine Urine Microalbumin Urine Total Protein Crossmatch 07/09/17 07/09/17 07/10/17 17:51 23:48 03:33 WBC Hgb Hct MCV MCH MCHC RDW Plt Count Seg Neuts % (Manual) Lymphocytes % (Manual) Seg Neutrophils # Man Lymphocytes # (Manual) Monocytes # (Manual) Lupus Anticoagulant LA PTT Baseline POC ABG pH 7.593 H POC ABG pCO2 34.7 L POC ABG pO2 73 L Sodium Potassium Chloride Carbon Dioxide BUN Creatinine Glucose POC Glucose 152 H 149 H Lactic Acid Calcium Phosphorus Magnesium Iron TIBC Transferrin C-Reactive Protein PTH Intact Urine WBC (Auto) Urine Creatinine Urine Microalbumin Urine Total Protein Crossmatch 07/10/17 07/10/17 07/10/17 05:30 05:30 12:19 WBC 24.0 H Hgb 9.0 L Hct 29.3 L MCV 69 L MCH 21 L MCHC RDW 35.9 H Plt Count 451 H Seg Neuts % (Manual) Lymphocytes % (Manual) Seg Neutrophils # Man Lymphocytes # (Manual) Monocytes # (Manual) Lupus Anticoagulant LA PTT Baseline POC ABG pH POC ABG pCO2 POC ABG pO2 Sodium Potassium Chloride 96.8 L Carbon Dioxide 31 H BUN 61 H Creatinine 2.9 H Glucose 120 H POC Glucose 143 H Lactic Acid Calcium Phosphorus 5.20 H Magnesium Iron TIBC Transferrin C-Reactive Protein PTH Intact Urine WBC (Auto) Urine Creatinine Urine Microalbumin Urine Total Protein Crossmatch 07/10/17 07/10/17 07/11/17 17:59 23:51 06:30 WBC 20.2 H Hgb 8.4 L Hct 26.0 L MCV 71 L MCH 23 L MCHC RDW 35.6 H Plt Count 469 H Seg Neuts % (Manual) Lymphocytes % (Manual) Seg Neutrophils # Man Lymphocytes # (Manual) Monocytes # (Manual) Lupus Anticoagulant LA PTT Baseline POC ABG pH POC ABG pCO2 POC ABG pO2 Sodium Potassium Chloride Carbon Dioxide BUN Creatinine Glucose POC Glucose 147 H 139 H Lactic Acid Calcium Phosphorus Magnesium Iron TIBC Transferrin C-Reactive Protein PTH Intact Urine WBC (Auto) Urine Creatinine Urine Microalbumin Urine Total Protein Crossmatch 07/11/17 07/11/17 07/11/17 06:30 06:30 08:54 WBC Hgb Hct MCV MCH MCHC RDW Plt Count Seg Neuts % (Manual) Lymphocytes % (Manual) Seg Neutrophils # Man Lymphocytes # (Manual) Monocytes # (Manual) Lupus Anticoagulant LA PTT Baseline POC ABG pH 7.485 H POC ABG pCO2 POC ABG pO2 Sodium Potassium Chloride Carbon Dioxide 32 H BUN 58 H Creatinine 2.4 H Glucose 111 H POC Glucose Lactic Acid Calcium Phosphorus 6.10 H Magnesium 1.60 L Iron TIBC Transferrin C-Reactive Protein PTH Intact Urine WBC (Auto) Urine Creatinine Urine Microalbumin Urine Total Protein Crossmatch Allied health notes reviewed: nursing
[2017-07-11] MEDS: SUBLIMAZE IV PRN ×4 (13:29→23:15)
--- NOTE | 2017-07-11 14:50 | Progress Note ---
Assessment and Plan Severe Sepsis: Questionable Liver Hemangioma: Ischemic Bowel: ID on board, on zosyn and diflucan Gen surgery on board, s/p enteroenterostomy and closure of abdominal wall on 07/09 On TPN Follow up ID and GS recs Acute Kidney Injury secondary to ATN from sepsis and contrast induced nephropathy, ACEI, no obstruction on CT: Non-Anion Gap Metabolic Acidosis: Renal function reviewed, SCr level was 2.4 today, yesterday's SCr level was 2.9 On admission, SCr level was 0.6 Renally dose meds No hydronephrosis seen on CT ABD/Pelvis IV contrast on 07/04/17 Strict intake and output Reddy Catheter: No Renal plan d/w Dr Butt Continue supportive therapy Hypoxic Respiratory Failure: Intubated on ventilator As per ICU Hypertensive Urgency: S/p nicardipine drip, on hydralazine PRN Hypomagnesemia: Replete Anemia: Vaginal Bleeding: Left simple ovarian cyst: Pelvic US on 07/03/17 showed multiple uterine fibroids, 2.2 cm simple left ovarian cyst Monitor need for blood transfusion Alcohol Use: CIWA protocol Subjective Date of service: 07/11/17 Principal diagnosis: Post-Op Resp Failure on MVS; Ischemic Bowel s/p Ex-Lap; EMMA Interval history: Pt intubated on ventilator, family at bedside Objective - Vital Signs Vital signs: Vital Signs - 12hr 07/11/17 07/11/17 07/11/17 03:00 03:15 03:30 Temperature Pulse Rate 116 H 121 H 110 H Respiratory 14 18 13 Rate Blood Pressure 150/88 150/88 158/88 O2 Sat by Pulse 99 100 100 Oximetry 07/11/17 07/11/17 07/11/17 03:45 03:50 04:00 Temperature Pulse Rate 108 H 115 H 109 H Respiratory 14 18 Rate Blood Pressure 158/88 158/88 160/90 O2 Sat by Pulse 100 99 100 Oximetry 07/11/17 07/11/17 07/11/17 04:15 04:30 04:45 Temperature Pulse Rate 108 H 106 H 110 H Respiratory 14 15 14 Rate Blood Pressure 160/90 144/87 144/87 O2 Sat by Pulse 100 100 100 Oximetry 07/11/17 07/11/17 07/11/17 05:00 05:15 05:31 Temperature Pulse Rate 115 H 124 H 125 H Respiratory 19 14 18 Rate Blood Pressure 184/105 144/87 144/87 O2 Sat by Pulse 99 100 100 Oximetry 07/11/17 07/11/17 07/11/17 05:45 06:00 06:15 Temperature Pulse Rate 121 H 118 H 115 H Respiratory 15 15 14 Rate Blood Pressure 144/87 160/94 160/94 O2 Sat by Pulse 99 100 100 Oximetry 07/11/17 07/11/17 07/11/17 06:30 06:45 07:00 Temperature Pulse Rate 116 H 110 H 108 H Respiratory 14 15 14 Rate Blood Pressure 160/83 160/83 140/75 O2 Sat by Pulse 100 100 100 Oximetry 07/11/17 07/11/17 07/11/17 07:15 07:30 07:45 Temperature Pulse Rate 107 H 100 H 108 H Respiratory 14 13 14 Rate Blood Pressure 140/75 140/75 140/75 O2 Sat by Pulse 100 100 100 Oximetry 07/11/17 07/11/17 07/11/17 08:00 08:15 08:30 Temperature 98.1 F Pulse Rate 111 H 113 H 114 H Respiratory 16 16 23 Rate Blood Pressure 173/87 173/87 179/92 O2 Sat by Pulse 100 100 99 Oximetry 07/11/17 07/11/17 07/11/17 08:36 08:45 09:00 Temperature Pulse Rate 114 H 115 H 114 H Respiratory 28 H 24 Rate Blood Pressure 179/92 179/92 187/96 O2 Sat by Pulse 100 100 Oximetry 07/11/17 07/11/17 07/11/17 09:09 09:15 09:30 Temperature Pulse Rate 113 H 113 H 118 H Respiratory 28 H 24 Rate Blood Pressure 189/96 187/96 162/78 O2 Sat by Pulse 99 100 Oximetry 07/11/17 07/11/17 07/11/17 09:45 10:00 10:15 Temperature Pulse Rate 117 H 122 H 123 H Respiratory 35 H 30 H 35 H Rate Blood Pressure 162/78 167/82 167/82 O2 Sat by Pulse 98 98 98 Oximetry 07/11/17 07/11/17 07/11/17 10:30 10:45 11:00 Temperature Pulse Rate 122 H 123 H 122 H Respiratory 33 H 34 H 19 Rate Blood Pressure 160/89 160/89 152/83 O2 Sat by Pulse 98 98 98 Oximetry 07/11/17 07/11/17 07/11/17 11:15 11:30 11:46 Temperature Pulse Rate 125 H 121 H 118 H Respiratory 17 18 12 Rate Blood Pressure 152/83 140/77 140/77 O2 Sat by Pulse 98 99 98 Oximetry 07/11/17 07/11/17 07/11/17 12:00 12:16 12:30 Temperature 100.3 F H Pulse Rate 118 H 114 H 117 H Respiratory 15 18 16 Rate Blood Pressure 143/79 143/79 165/80 O2 Sat by Pulse 99 99 99 Oximetry 07/11/17 07/11/17 07/11/17 12:46 13:00 13:16 Temperature Pulse Rate 119 H 114 H 121 H Respiratory 21 20 15 Rate Blood Pressure 165/80 165/80 165/80 O2 Sat by Pulse 100 100 99 Oximetry 07/11/17 07/11/17 13:30 14:01 Temperature Pulse Rate 119 H 117 H Respiratory 20 Rate Blood Pressure 160/85 160/85 O2 Sat by Pulse 99 99 Oximetry - General Appearance General appearance: intubated (on ventilator) EENT: ATNC Neck: no JVD Respiratory: Present: Other (Lung sounds decreased bilaterally, intubated) Cardiology: regular, tachycardia, S1S2 Gastrointestinal: hypoactive bowel sounds, other (midline abdominal incision with marilyn intact, nasogastric tube intact) Integumentary: warm and dry Neurologic: other (intubated on ventilator) Musculoskeletal: other (no edema to both lower extremities) - Lab 07/11/17 06:30 07/11/17 06:30 Most recent lab results Calcium 9.0 mg/dL (8.4-10.2) 07/11/17 06:30 Phosphorus 6.10 mg/dL (2.5-4.5) H 07/11/17 06:30 Magnesium 1.60 mg/dL (1.7-2.3) L 07/11/17 06:30 Urine Creatinine 237.2 mg/dL (0.1-20.0) H 07/05/17 Unknown Urine Sodium 18 mmol/L 07/05/17 Unknown Urine Total Protein 170 mg/dL (5-11.8) H 07/05/17 Unknown
[2017-07-11] MEDS ORDERED: MAGNESIUM SULFATE 1 GM in NACL 0.9% 50 ML IV ONE (16:53)
--- NOTE | 2017-07-11 17:01 | Progress Note ---
Hospitalist Physical - Constitutional Vitals: Temp Pulse Resp BP Pulse Ox 100.3 F H 117 H 17 160/85 100 07/11/17 12:00 07/11/17 14:01 07/11/17 16:58 07/11/17 14:01 07/11/17 16:00 Results - Labs CBC & Chem 7: 07/11/17 06:30 07/11/17 06:30 Labs: Laboratory Last Values WBC 20.2 K/mm3 (4.5-11.0) H 07/11/17 06:30 RBC 3.65 M/mm3 (3.65-5.03) 07/11/17 06:30 Hgb 8.4 gm/dl (10.1-14.3) L 07/11/17 06:30 Hct 26.0 % (30.3-42.9) L 07/11/17 06:30 MCV 71 fl (79-97) L 07/11/17 06:30 MCH 23 pg (28-32) L 07/11/17 06:30 MCHC 32 % (30-34) 07/11/17 06:30 RDW 35.6 % (13.2-15.2) H 07/11/17 06:30 Plt Count 469 K/mm3 (140-440) H 07/11/17 06:30 Lymph % (Auto) Small Animal Caretaker 07/03/17 05:28 [place] % (Auto) Small Animal Caretaker 07/03/17 05:28 Eos % (Auto) Small Animal Caretaker 07/03/17 05:28 Baso % (Auto) Small Animal Caretaker 07/03/17 05:28 Lymph # Small Animal Caretaker 07/03/17 05:28 [place] # Small Animal Caretaker 07/03/17 05:28 Eos # Small Animal Caretaker 07/03/17 05:28 Baso # Small Animal Caretaker 07/03/17 05:28 Add Manual Diff Complete 07/05/17 08:21 Total Counted 200 07/05/17 08:21 Seg Neutrophils % Small Animal Caretaker 07/05/17 08:21 Seg Neuts % (Manual) 96.5 % (40.0-70.0) H 07/05/17 08:21 Band Neutrophils % 0 % 07/05/17 08:21 Lymphocytes % (Manual) 1.0 % (13.4-35.0) L 07/05/17 08:21 Reactive Lymphs % (Man) 0 % 07/05/17 08:21 Monocytes % (Manual) 2.5 % (0.0-7.3) 07/05/17 08:21 Eosinophils % (Manual) 0 % (0.0-4.3) 07/05/17 08:21 Basophils % (Manual) 0 % (0.0-1.8) 07/05/17 08:21 Metamyelocytes % 0 % 07/05/17 08:21 Myelocytes % 0 % 07/05/17 08:21 Promyelocytes % 0 % 07/05/17 08:21 Blast Cells % 0 % 07/05/17 08:21 Nucleated RBC % 0.5 % (0.0-0.9) 07/05/17 08:21 Seg Neutrophils # Small Animal Caretaker 07/03/17 05:28 Seg Neutrophils # Man 54.3 K/mm3 (1.8-7.7) H 07/05/17 08:21 Band Neutrophils # 0.0 K/mm3 07/05/17 08:21 Lymphocytes # (Manual) 0.6 K/mm3 (1.2-5.4) L 07/05/17 08:21 Abs React Lymphs (Man) 0.0 K/mm3 07/05/17 08:21 Monocytes # (Manual) 1.4 K/mm3 (0.0-0.8) H 07/05/17 08:21 Eosinophils # (Manual) 0.0 K/mm3 (0.0-0.4) 07/05/17 08:21 Basophils # (Manual) 0.0 K/mm3 (0.0-0.1) 07/05/17 08:21 Metamyelocytes # 0.0 K/mm3 07/05/17 08:21 Myelocytes # 0.0 K/mm3 07/05/17 08:21 Promyelocytes # 0.0 K/mm3 07/05/17 08:21 Blast Cells # 0.0 K/mm3 07/05/17 08:21 Pathologist Review 07/04/17 04:39 WBC Morphology Not Reportable 07/05/17 08:21 Hypersegmented Neuts Rare 07/05/17 08:21 Hyposegmented Neuts Not Reportable 07/05/17 08:21 Hypogranular Neuts Not Reportable 07/05/17 08:21 Smudge Cells Not Reportable 07/05/17 08:21 Toxic Granulation Not Reportable 07/05/17 08:21 Toxic Vacuolation Not Reportable 07/05/17 08:21 Dohle Bodies Not Reportable 07/05/17 08:21 Pelger-Huet Anomaly Not Reportable 07/05/17 08:21 Irma Rods Not Reportable 07/05/17 08:21 Platelet Estimate Cons 07/05/17 08:21 Clumped Platelets Not Reportable 07/05/17 08:21 Plt Clumps, EDTA Not Reportable 07/05/17 08:21 Large Platelets Few 07/05/17 08:21 Giant Platelets Not Reportable 07/05/17 08:21 Platelet Satelliting Not Reportable 07/05/17 08:21 Plt Morphology Comment Not Reportable 07/05/17 08:21 RBC Morphology Not Reportable 07/05/17 08:21 Dimorphic RBCs Not Reportable 07/05/17 08:21 Polychromasia Few 07/05/17 08:21 Hypochromasia 2+ 07/05/17 08:21 Poikilocytosis 1+ 07/05/17 08:21 Anisocytosis 3+ 07/05/17 08:21 Microcytosis 1+ 07/05/17 08:21 Macrocytosis Not Reportable 07/05/17 08:21 Spherocytes Not Reportable 07/05/17 08:21 Pappenheimer Bodies Not Reportable 07/05/17 08:21 Sickle Cells Not Reportable 07/05/17 08:21 Target Cells Rare 07/05/17 08:21 Tear Drop Cells Few 07/05/17 08:21 Ovalocytes Few 07/05/17 08:21 Helmet Cells Not Reportable 07/05/17 08:21 [place] Bodies Not Reportable 07/05/17 08:21 [place] Rings Not Reportable 07/05/17 08:21 [place] Cells Not Reportable 07/05/17 08:21 Bite Cells Not Reportable 07/05/17 08:21 Crenated Cell Not Reportable 07/05/17 08:21 Elliptocytes Not Reportable 07/05/17 08:21 Acanthocytes (Spur) Not Reportable 07/05/17 08:21 Rouleaux Not Reportable 07/05/17 08:21 Hemoglobin C Crystals Not Reportable 07/05/17 08:21 Schistocytes Rare 07/05/17 08:21 Malaria parasites Not Reportable 07/05/17 08:21 [place] Bodies Not Reportable 07/05/17 08:21 Haptoglobin 204 mg/dL (43-212) 07/03/17 09:31 Hem Pathologist Commnt No 07/05/17 08:21 PT 12.5 Sec. (12.2-14.9) 07/03/17 06:19 INR 0.89 (0.87-1.13) 07/03/17 06:19 APTT 24.6 Sec. (24.2-36.6) 07/03/17 09:31 Fibrinogen 350 mg/dl (211-480) 07/03/17 09:31 Lupus Anticoagulant see below H 07/06/17 17:55 LA PTT Baseline 47 sec (<=40) H 07/06/17 17:55 dRVVT Confirm Interp Negative (Negative) 07/06/17 17:55 dRVVT Screen 50:50 See scanned report 07/06/17 17:55 dRVVT Mix Interpret See scanned report 07/06/17 17:55 POC ABG pH 7.485 (7.35-7.45) H 07/11/17 08:54 POC ABG pCO2 43.9 (35-45) 07/11/17 08:54 POC ABG pO2 83 (80-105) 07/11/17 08:54 POC ABG HCO3 33.1 07/11/17 08:54 POC ABG Total CO2 34 07/11/17 08:54 POC ABG O2 Sat 97 07/11/17 08:54 POC ABG Base Excess 10 07/11/17 08:54 VBG pH 7.372 (7.320-7.420) 07/03/17 06:19 FiO2 30 % 07/11/17 08:54 Sodium 145 mmol/L (137-145) 07/11/17 06:30 Potassium 3.9 mmol/L (3.6-5.0) 07/11/17 06:30 Chloride 99.8 mmol/L (98-107) 07/11/17 06:30 Carbon Dioxide 32 mmol/L (22-30) H 07/11/17 06:30 Anion Gap 17 mmol/L 07/11/17 06:30 BUN 58 mg/dL (7-17) H 07/11/17 06:30 Creatinine 2.4 mg/dL (0.7-1.2) H 07/11/17 06:30 Estimated GFR 27 ml/min 07/11/17 06:30 BUN/Creatinine Ratio 24 % 07/11/17 06:30 Glucose 111 mg/dL (65-100) H 07/11/17 06:30 POC Glucose 168 (70-105) H 07/11/17 12:47 Lactic Acid 0.90 mmol/L (0.7-2.0) 07/06/17 07:28 Calcium 9.0 mg/dL (8.4-10.2) 07/11/17 06:30 Ionized Calcium 5.1 mg/dL (4.8-5.6) 07/07/17 12:21 Phosphorus 6.10 mg/dL (2.5-4.5) H 07/11/17 06:30 Magnesium 1.60 mg/dL (1.7-2.3) L 07/11/17 06:30 Iron 12 ug/dL (37-170) L 07/03/17 09:31 TIBC 534 mcg/dL (250-450) H 07/03/17 09:31 Transferrin 148 mg/dl (192-382) L 07/06/17 07:28 Ferritin 79.1 ng/mL (13.0-400.0) 07/06/17 07:28 Total Bilirubin 0.40 mg/dL (0.1-1.2) 07/03/17 05:28 AST 17 units/L (5-40) 07/03/17 05:28 ALT 10 units/L (7-56) 07/03/17 05:28 Alkaline Phosphatase 74 units/L (35-129) 07/03/17 05:28 C-Reactive Protein 26.20 mg/dL (0.00-1.30) H 07/06/17 18:08 NT-Pro-B Natriuret Pep 114.4 pg/mL (0-450) 07/07/17 12:21 Total Protein 7.5 g/dL (6.3-8.2) 07/03/17 05:28 Albumin 4.5 g/dL (3.9-5) 07/03/17 05:28 Albumin/Globulin Ratio 1.5 % 07/03/17 05:28 Triglycerides 103 mg/dL (2-149) 07/05/17 22:04 Lipase 18 units/L (13-60) 07/03/17 05:28 TSH 0.561 mlU/mL (0.270-4.200) 07/04/17 14:38 HCG, Qual Negative (Negative) 07/03/17 06:19 HCG, Quant < 2 mIU/mL (0-4) 07/05/17 15:50 PTH Intact 285.9 pg/mL (15-65) H 07/06/17 07:28 Urine Color Yellow (Yellow) 07/05/17 Unknown Urine Turbidity Clear (Clear) 07/05/17 Unknown Urine pH 5.0 (5.0-7.0) 07/05/17 Unknown Ur Specific [place] 1.021 (1.003-1.030) 07/05/17 Unknown Urine Protein 100 mg/dl mg/dL (Negative) 07/05/17 Unknown Urine Glucose (UA) 50 mg/dL (Negative) 07/05/17 Unknown Urine Ketones Tr mg/dL (Negative) 07/05/17 Unknown Urine Blood Sm (Negative) 07/05/17 Unknown Urine Nitrite Neg (Negative) 07/05/17 Unknown Urine Bilirubin Neg (Negative) 07/05/17 Unknown Urine Urobilinogen < 2.0 mg/dL (<2.0) 07/05/17 Unknown Ur Leukocyte Esterase Tr (Negative) 07/05/17 Unknown Urine WBC (Auto) < 1.0 /HPF (0.0-6.0) 07/05/17 Unknown Urine RBC (Auto) 10.0 /HPF (0.0-6.0) 07/05/17 Unknown U Epithel Cells (Auto) 9.0 /HPF (0-13.0) 07/05/17 Unknown Urine Bacteria (Auto) 2+ /HPF (Negative) 07/05/17 Unknown Urine Mucus Few /HPF 07/03/17 Unknown Urine Eosinophils None seen (None Seen) 07/05/17 Unknown Urine Creatinine 237.2 mg/dL (0.1-20.0) H 07/05/17 Unknown Urine Microalbumin 39.9 mg/dL (0.1-34.0) H 07/05/17 Unknown Microalb/Creat Ratio 168.2 ug/mg 07/05/17 Unknown Urine Sodium 18 mmol/L 07/05/17 Unknown Urine Total Protein 170 mg/dL (5-11.8) H 07/05/17 Unknown [place] Screen Negative (Negative) 07/06/17 17:55 Proteinase 3 (PR3) Ab <1.0 AI (<1.0) 07/06/17 17:55 Myeloperoxidase Ab <1.0 AI (<1.0) 07/06/17 17:55 Complement C3 77 mg/dL (83-193) L 07/06/17 17:55 Complement C4 16 mg/dL (15-57) 07/06/17 17:55 Hepatitis A IgM Ab Non-reactive (NonReactive) 07/06/17 18:07 Hep Bs Antigen Non-reactive (Negative) 07/06/17 18:07 Hep B Core IgM Ab Non-reactive (NonReactive) 07/06/17 18:07 Hepatitis C Antibody Non-reactive (NonReactive) 07/06/17 18:07 HIV 1&2 Antibody Rapid Non react (Non React) 07/06/17 18:09 HIV P24 Antigen Non react (Non React) 07/06/17 18:09 Blood Type O POSITIVE 07/06/17 10:27 Antibody Screen Negative 07/06/17 10:27 Crossmatch See Detail 07/06/17 10:27
[2017-07-11] MEDS ORDERED: TPN ADULT 2,400 ML IV SCH (20:00)
[2017-07-11] MEDS: fentaNYL DRIP Premix 2,000 MCG/100 ML BAG IV SCH (23:24)
[2017-07-12] MEDS: APRESOLINE IV PRN ×2 (01:42→06:02)
--- NOTE | 2017-07-12 03:06 | XRay Report ---
FINAL REPORT PROCEDURE: XR CHEST 1V AP TECHNIQUE: Chest radiograph anteroposterior view. CPT 13326 HISTORY: follow up respiratory failure COMPARISON: 07/11/2017 FINDINGS: Heart: Normal. Mediastinum/Vessels: Normal. Lungs/Pleural space: There are bilateral perihilar infiltrates greater on the right. There is pulmonary vascular congestion. There are no effusions or pneumothoraces.. Bony thorax: No acute osseous abnormality. Life support devices: The endotracheal tube is in the proximal trachea. The NG tube is in the stomach.. There is a left-sided PICC line. The tip is in the superior vena cava. IMPRESSION: The heart size is normal. There are bilateral perihilar infiltrates greater on the right. There is pulmonary vascular congestion. There are no effusions or pneumothoraces.. The endotracheal tube is in the proximal trachea. The NG tube is in the stomach.. There is a left-sided PICC line. The tip is in the superior vena cava.
[2017-07-12] MEDS: ZOSYN/NS 2.25 GM/50ML 2.25 GM/50 ML BAG IV SCH ×4 (03:10→21:00)
[2017-07-12] MEDS: HEPARIN SUB-Q SCH ×3 (06:00→23:44)
[2017-07-12 07:00] LABS: Calcium 9.2 mg/dL (8.4-10.2)
[2017-07-12] MEDS: SUBLIMAZE IV PRN ×5 (08:00→23:09)
--- NOTE | 2017-07-12 09:05 | Progress Note ---
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 New fever etiology ? unclear ? VAP 2) Peritonitis: secondary to gangrene of majority of small bowel and right colon. Approximately 30 cm of viable small bowel from ligament of treitz, transverse colon and remainder of colon viable. Unclear etiology: ?cocaine ? emboli -S/P Diagnostic laparoscopy, converted to exploratory laparotomy, small bowel resection, right hemicolectomy, temporary closure of abdomen on 07/06 -S/P Peritoneal Washing, enterocolostomy and closure of abdominal wall on 07/09 -TTE EF >55 no clots -CRP=26 -HIV neg -Viral hepatitis neg -Path - benign gangrenous small bowel, colon and appendix, no malignancy -ANCA neg -[place] neg -C3 low (unlcear significance) -CXR repeat 07/12 [place] infiltrates 3) Nausea, vomiting, abdominal pain and diarrhea: due to bowel gangrene -CT - bowels were normal -repeat CT w contrast showed multiple non distended small and large bowel loops ? ileus, no evidence of colitis or enteritis 4) Hypertensive urgency 5) Vaginal bleeding: from fibroids. CT showed uterine fibroids, 2.3 c left ovarian cyst. 6) Right liver lesion ? hemangioma. Viral hep neg 7) Small pericardial effusion 8) EMMA -better 9) Severe anemia: prob from fibroids Recommendations: -continue zosyn and fluconazole for now- D810 -repeat CRP -repeat blood cx -obtain sputum -monitor fever Thanks for consultation Rachel Bryant MD Subjective Date of service: 07/12/17 Principal diagnosis: Post-Op Resp Failure on MVS; Ischemic Bowel s/p Ex-Lap; EMMA Interval history: sedated on the vent, no need for pressors, no fever Micro: Blood cx 07/03 ngtd Urine cx: 07/03 10-100K mixed bacteria Tracheal asp : 07/06 ngtd Abx: zosyn 07/09 Fluconazole 07/05 Previous Abx: Zosyn Levaquin Flagyl Vanco Meropenem 07/05-07/09 Objective - Constitutional Vitals: Vital Signs Temp Pulse Resp BP Pulse Ox 99.2 F 125 H 23 194/90 100 07/12/17 08:20 07/12/17 08:00 07/12/17 08:00 07/12/17 08:00 07/12/17 08:00 Temperature -Last 24 Hours Temperature 99.2 F Temperature 99.9 F Temperature 100.8 F Temperature 100.0 F Temperature 99.5 F Temperature 100.3 F - Labs CBC & Chem 7: 07/11/17 06:30 07/12/17 06:25 Labs: Abnormal lab results 07/06/17 07/06/17 07/11/17 Range/Units 10:27 17:55 08:54 POC ABG pH 7.485 H (7.35-7.45) BUN (7-17) mg/dL Creatinine (0.7-1.2) mg/dL Glucose (65-100) mg/dL POC Glucose (70-105) Phosphorus (2.5-4.5) mg/dL Complement C3 77 L (83-193) mg/dL Crossmatch See Detail 07/11/17 07/11/17 07/11/17 Range/Units 12:47 17:33 23:52 POC ABG pH (7.35-7.45) BUN (7-17) mg/dL Creatinine (0.7-1.2) mg/dL Glucose (65-100) mg/dL POC Glucose 168 H 151 H 156 H (70-105) Phosphorus (2.5-4.5) mg/dL Complement C3 (83-193) mg/dL Crossmatch 07/12/17 07/12/17 Range/Units 05:39 06:25 POC ABG pH (7.35-7.45) BUN 43 H (7-17) mg/dL Creatinine 1.8 H (0.7-1.2) mg/dL Glucose 138 H (65-100) mg/dL POC Glucose 146 H (70-105) Phosphorus 5.90 H (2.5-4.5) mg/dL Complement C3 (83-193) mg/dL Crossmatch
--- NOTE | 2017-07-12 09:22 | Progress Note ---
Assessment and Plan Severe Sepsis: Questionable Liver Hemangioma: Ischemic Bowel: ID on board, on zosyn and diflucan Gen surgery on board, s/p enteroenterostomy and closure of abdominal wall on 07/09 On TPN Follow up ID and GS recs Acute Kidney Injury secondary to ATN from sepsis and contrast induced nephropathy, ACEI, no obstruction on CT: Non-Anion Gap Metabolic Acidosis: kidney function cont to improve,no new recs, will sign off, please re consult if needed Renally dose meds Strict intake and output Reddy Catheter: No Hypoxic Respiratory Failure: Intubated on ventilator As per ICU Hypertensive Urgency: S/p nicardipine drip, on hydralazine PRN Hypomagnesemia: Replete as needed Anemia: Vaginal Bleeding: Left simple ovarian cyst: Pelvic US on 07/03/17 showed multiple uterine fibroids, 2.2 cm simple left ovarian cyst Monitor need for blood transfusion Alcohol Use: CIND protocol Subjective Date of service: 07/12/17 Principal diagnosis: Post-Op Resp Failure on MVS; Ischemic Bowel s/p Ex-Lap; EMMA Interval history: intubated, family at bedside, all questions answered Objective - Vital Signs Vital signs: Vital Signs - 12hr 07/11/17 07/11/17 07/11/17 21:30 22:00 22:30 Temperature Pulse Rate 126 H 130 H 127 H Respiratory 18 19 21 Rate Respiratory 17 Rate [abd] Blood Pressure 146/74 161/78 177/88 O2 Sat by Pulse 99 99 99 Oximetry 07/11/17 07/11/17 07/11/17 23:00 23:15 23:30 Temperature Pulse Rate 142 H 135 H Respiratory 24 25 H 18 Rate Respiratory Rate [abd] Blood Pressure 207/103 174/85 O2 Sat by Pulse 98 98 Oximetry 07/11/17 07/11/17 07/11/17 23:36 23:45 23:54 Temperature Pulse Rate 132 H 129 H Respiratory 14 16 Rate Respiratory Rate [abd] Blood Pressure 174/85 174/85 O2 Sat by Pulse 98 99 Oximetry 07/12/17 07/12/17 07/12/17 00:00 00:30 01:00 Temperature 100.8 F H Pulse Rate 127 H 119 H 116 H Respiratory 18 15 12 Rate Respiratory Rate [abd] Blood Pressure 150/81 153/78 167/92 O2 Sat by Pulse 99 99 100 Oximetry 07/12/17 07/12/17 07/12/17 01:30 01:42 02:00 Temperature Pulse Rate 120 H 117 H 115 H Respiratory 13 13 Rate Respiratory Rate [abd] Blood Pressure 184/96 184/96 157/77 O2 Sat by Pulse 100 100 Oximetry 07/12/17 07/12/17 07/12/17 02:30 03:00 03:30 Temperature Pulse Rate 126 H 128 H 125 H Respiratory 19 18 16 Rate Respiratory Rate [abd] Blood Pressure 178/89 192/87 193/86 O2 Sat by Pulse 100 99 99 Oximetry 07/12/17 07/12/17 07/12/17 04:00 04:29 04:30 Temperature 99.9 F H Pulse Rate 117 H 112 H 118 H Respiratory 16 17 Rate Respiratory Rate [abd] Blood Pressure 204/84 204/84 171/86 O2 Sat by Pulse 100 100 99 Oximetry 07/12/17 07/12/17 07/12/17 05:00 05:30 06:00 Temperature Pulse Rate 114 H 128 H 120 H Respiratory 14 28 H 17 Rate Respiratory Rate [abd] Blood Pressure 166/84 226/124 178/93 O2 Sat by Pulse 99 100 99 Oximetry 07/12/17 07/12/17 07/12/17 06:02 06:24 06:30 Temperature Pulse Rate 119 H 119 H 116 H Respiratory 25 H Rate Respiratory Rate [abd] Blood Pressure 178/94 178/93 151/80 O2 Sat by Pulse 99 99 Oximetry 07/12/17 07/12/17 07/12/17 07:00 07:21 07:30 Temperature Pulse Rate 122 H 118 H 123 H Respiratory 22 22 30 H Rate Respiratory Rate [abd] Blood Pressure 165/87 165/87 176/88 O2 Sat by Pulse 99 100 99 Oximetry 07/12/17 07/12/17 08:00 08:20 Temperature 99.2 F Pulse Rate 125 H Respiratory 23 Rate Respiratory Rate [abd] Blood Pressure 194/90 O2 Sat by Pulse 100 Oximetry - General Appearance General appearance: intubated EENT: ATNC, mucous membranes dry Neck: no JVD, no carotid bruit Respiratory: Present: Clear to Ascultation Cardiology: tachycardia Gastrointestinal: normoactive bowel sounds, distended Integumentary: no rash, warm and dry Neurologic: other (follows simple commands) Musculoskeletal: other (trace pitting edema in BLE) Psychiatric: other (intubated) - Lab 07/11/17 06:30 07/12/17 06:25 Most recent lab results Calcium 9.2 mg/dL (8.4-10.2) 07/12/17 06:25 Phosphorus 5.90 mg/dL (2.5-4.5) H 07/12/17 06:25 Magnesium 2.00 mg/dL (1.7-2.3) 07/12/17 06:25 Urine Creatinine 237.2 mg/dL (0.1-20.0) H 07/05/17 Unknown Urine Sodium 18 mmol/L 07/05/17 Unknown Urine Total Protein 170 mg/dL (5-11.8) H 07/05/17 Unknown
--- NOTE | 2017-07-12 10:32 | Progress Note ---
Assessment and Plan Postoperative respiratory failure, now on mechanical ventilatory support Sepsis syndrome. Ischemic bowel, possibly secondary to embolic event vs related to drug abuse H/O Cocaine use with possibility of arterial spasm. Acute kidney injury. Leukocytosis. Uncontrolled hypertension. Severe anemia. Drug abuse. Alcohol abuse -VAP bundle addressed - daily SATs and SBT's - reduced set rate to 12/min - continue anti-infectives per ID recs - keep NPO - continue TPN per surgery - continue GI & VTE prophylaxis ...30' CCT Subjective Date of service: 07/12/17 Principal diagnosis: Post-Op Resp Failure on MVS; Ischemic Bowel s/p Ex-Lap; EMMA Interval history: Follow up: Sepsis, severe anemia, malignant hypertension, abdominal pain Seen and examined at bedside; 24hour events reviewed with nursing staff ; Continues to complain of abdominal pain and tolerating diet.; Denies any chest pain, nausea, vomiting, diarrhea She had fever spike overnight and has worsening leukocytosis Blood pressure controlled and now off the nicardipine infusion On empiric antibiotics per ID-levofloxacin/metronidazole Objective Vital Signs - 12hr 07/11/17 07/11/17 07/11/17 22:30 23:00 23:15 Temperature Pulse Rate 127 H 142 H Respiratory 21 24 25 H Rate Blood Pressure 177/88 207/103 O2 Sat by Pulse 99 98 Oximetry 07/11/17 07/11/17 07/11/17 23:30 23:36 23:45 Temperature Pulse Rate 135 H 132 H Respiratory 18 14 Rate Blood Pressure 174/85 174/85 O2 Sat by Pulse 98 98 Oximetry 07/11/17 07/12/17 07/12/17 23:54 00:00 00:30 Temperature 100.8 F H Pulse Rate 129 H 127 H 119 H Respiratory 16 18 15 Rate Blood Pressure 174/85 150/81 153/78 O2 Sat by Pulse 99 99 99 Oximetry 07/12/17 07/12/17 07/12/17 01:00 01:30 01:42 Temperature Pulse Rate 116 H 120 H 117 H Respiratory 12 13 Rate Blood Pressure 167/92 184/96 184/96 O2 Sat by Pulse 100 100 Oximetry 07/12/17 07/12/17 07/12/17 02:00 02:30 03:00 Temperature Pulse Rate 115 H 126 H 128 H Respiratory 13 19 18 Rate Blood Pressure 157/77 178/89 192/87 O2 Sat by Pulse 100 100 99 Oximetry 07/12/17 07/12/17 07/12/17 03:30 04:00 04:29 Temperature 99.9 F H Pulse Rate 125 H 117 H 112 H Respiratory 16 16 Rate Blood Pressure 193/86 204/84 204/84 O2 Sat by Pulse 99 100 100 Oximetry 07/12/17 07/12/17 07/12/17 04:30 05:00 05:30 Temperature Pulse Rate 118 H 114 H 128 H Respiratory 17 14 28 H Rate Blood Pressure 171/86 166/84 226/124 O2 Sat by Pulse 99 99 100 Oximetry 07/12/17 07/12/17 07/12/17 06:00 06:02 06:24 Temperature Pulse Rate 120 H 119 H 119 H Respiratory 17 Rate Blood Pressure 178/93 178/94 178/93 O2 Sat by Pulse 99 99 Oximetry 07/12/17 07/12/17 07/12/17 06:30 07:00 07:21 Temperature Pulse Rate 116 H 122 H 118 H Respiratory 25 H 22 22 Rate Blood Pressure 151/80 165/87 165/87 O2 Sat by Pulse 99 99 100 Oximetry 07/12/17 07/12/17 07/12/17 07:30 08:00 08:20 Temperature 99.2 F Pulse Rate 123 H 125 H Respiratory 30 H 23 Rate Blood Pressure 176/88 194/90 O2 Sat by Pulse 99 100 Oximetry 07/12/17 07/12/17 07/12/17 08:30 09:00 09:30 Temperature Pulse Rate 121 H 117 H 115 H Respiratory 31 H 29 H 28 H Rate Blood Pressure 190/94 145/76 158/80 O2 Sat by Pulse 99 99 99 Oximetry Constitutional: no acute distress, other (on sedation, orally intubated) Eyes: non-icteric ENT: oropharynx moist, other (ETT 23 cm IVA) Neck: supple, no lymphadenopathy, no JVD, other (no thyromegaly) Effort: mildly labored Ascultation: Bilateral: diminished breath sounds (bases), rhonchi Percussion: Bilateral: not dull Cardiovascular: regular rate and rhythm, other (No R/M) Gastrointestinal: hypoactive bowel sounds, non-distended, other (no palpable HSM ; clean dry wound site with marilyn) Integumentary: normal Extremities: no cyanosis, no edema, pulses normal, no ischemia or petechiae Neurologic: normal mental status, non-focal exam, pupils equal and round, CN II- XII normal Psychiatric: mood appropriate, affect normal CBC and BMP: 07/11/17 06:30 07/12/17 06:25 ABG, PT/INR, D-dimer: ABG POC ABG pH 7.485 (7.35-7.45) H 07/11/17 08:54 POC ABG pCO2 43.9 (35-45) 07/11/17 08:54 POC ABG pO2 83 (80-105) 07/11/17 08:54 POC ABG HCO3 33.1 07/11/17 08:54 POC ABG Total CO2 34 07/11/17 08:54 POC ABG O2 Sat 97 07/11/17 08:54 PT/INR, D-dimer PT 12.5 Sec. (12.2-14.9) 07/03/17 06:19 INR 0.89 (0.87-1.13) 07/03/17 06:19 Abnormal lab findings: Abnormal Labs 07/03/17 07/03/17 07/03/17 05:11 05:28 05:28 WBC 12.9 H Hgb 5.6 L* Hct 22.3 L MCV 59 L MCH 15 L MCHC 25 L RDW 33.3 H Plt Count 125 L Seg Neuts % (Manual) 75.0 H Lymphocytes % (Manual) Seg Neutrophils # Man 9.7 H Lymphocytes # (Manual) Monocytes # (Manual) Lupus Anticoagulant LA PTT Baseline POC ABG pH POC ABG pCO2 POC ABG pO2 Sodium Potassium 3.0 L Chloride Carbon Dioxide BUN Creatinine 0.6 L Glucose 220 H POC Glucose 188 H Lactic Acid Calcium Phosphorus Magnesium Iron TIBC Transferrin C-Reactive Protein PTH Intact Urine WBC (Auto) Urine Creatinine Urine Microalbumin Urine Total Protein Complement C3 Crossmatch 07/03/17 07/03/17 07/03/17 06:19 06:35 08:42 WBC Hgb Hct MCV MCH MCHC RDW Plt Count Seg Neuts % (Manual) Lymphocytes % (Manual) Seg Neutrophils # Man Lymphocytes # (Manual) Monocytes # (Manual) Lupus Anticoagulant LA PTT Baseline POC ABG pH POC ABG pCO2 POC ABG pO2 Sodium Potassium Chloride Carbon Dioxide BUN Creatinine Glucose POC Glucose Lactic Acid 2.50 H* 2.20 H* Calcium Phosphorus Magnesium Iron TIBC Transferrin C-Reactive Protein PTH Intact Urine WBC (Auto) Urine Creatinine Urine Microalbumin Urine Total Protein Complement C3 Crossmatch See Detail 07/03/17 07/03/17 07/03/17 09:31 09:31 11:50 WBC Hgb 5.7 L* Hct 22.4 L MCV MCH MCHC RDW Plt Count Seg Neuts % (Manual) Lymphocytes % (Manual) Seg Neutrophils # Man Lymphocytes # (Manual) Monocytes # (Manual) Lupus Anticoagulant LA PTT Baseline POC ABG pH POC ABG pCO2 POC ABG pO2 Sodium Potassium Chloride Carbon Dioxide BUN Creatinine Glucose POC Glucose Lactic Acid 2.80 H* Calcium Phosphorus Magnesium Iron 12 L TIBC 534 H Transferrin C-Reactive Protein PTH Intact Urine WBC (Auto) Urine Creatinine Urine Microalbumin Urine Total Protein Complement C3 Crossmatch 07/03/17 07/03/17 07/03/17 16:50 16:50 Unknown WBC Hgb 9.7 L D Hct MCV MCH MCHC RDW Plt Count Seg Neuts % (Manual) Lymphocytes % (Manual) Seg Neutrophils # Man Lymphocytes # (Manual) Monocytes # (Manual) Lupus Anticoagulant LA PTT Baseline POC ABG pH POC ABG pCO2 POC ABG pO2 Sodium Potassium Chloride Carbon Dioxide BUN Creatinine Glucose POC Glucose Lactic Acid 2.30 H* Calcium Phosphorus Magnesium Iron TIBC Transferrin C-Reactive Protein PTH Intact Urine WBC (Auto) 18.0 H Urine Creatinine Urine Microalbumin Urine Total Protein Complement C3 Crossmatch 07/04/17 07/04/17 07/04/17 03:57 03:57 04:39 WBC 42.4 H* 42.8 H* Hgb 9.1 L 9.3 L Hct MCV 65 L 66 L MCH 19 L 20 L MCHC 29 L RDW 37.3 H 37.3 H Plt Count 120 L Seg Neuts % (Manual) 93.5 H Lymphocytes % (Manual) 2.5 L Seg Neutrophils # Man 40.0 H Lymphocytes # (Manual) 1.1 L Monocytes # (Manual) 1.1 H Lupus Anticoagulant LA PTT Baseline POC ABG pH POC ABG pCO2 POC ABG pO2 Sodium 134 L Potassium 3.5 L Chloride 95.4 L Carbon Dioxide 21 L BUN 6 L Creatinine 0.5 L Glucose 147 H POC Glucose Lactic Acid Calcium 7.9 L Phosphorus Magnesium Iron TIBC Transferrin C-Reactive Protein PTH Intact Urine WBC (Auto) Urine Creatinine Urine Microalbumin Urine Total Protein Complement C3 Crossmatch 07/04/17 07/04/17 07/05/17 12:09 17:11 08:21 WBC 56.3 H* Hgb 8.3 L Hct 29.1 L MCV 66 L MCH 19 L MCHC 28 L RDW 38.3 H Plt Count Seg Neuts % (Manual) 96.5 H Lymphocytes % (Manual) 1.0 L Seg Neutrophils # Man 54.3 H Lymphocytes # (Manual) 0.6 L Monocytes # (Manual) 1.4 H Lupus Anticoagulant LA PTT Baseline POC ABG pH POC ABG pCO2 POC ABG pO2 Sodium Potassium Chloride Carbon Dioxide BUN Creatinine Glucose POC Glucose 169 H 124 H Lactic Acid Calcium Phosphorus Magnesium Iron TIBC Transferrin C-Reactive Protein PTH Intact Urine WBC (Auto) Urine Creatinine Urine Microalbumin Urine Total Protein Complement C3 Crossmatch 07/05/17 07/05/17 07/05/17 08:21 10:55 22:34 WBC Hgb Hct MCV MCH MCHC RDW Plt Count Seg Neuts % (Manual) Lymphocytes % (Manual) Seg Neutrophils # Man Lymphocytes # (Manual) Monocytes # (Manual) Lupus Anticoagulant LA PTT Baseline POC ABG pH 7.185 L POC ABG pCO2 33.8 L POC ABG pO2 Sodium 135 L 135 L Potassium Chloride Carbon Dioxide 18 L 16 L BUN 25 H 27 H Creatinine 2.7 H D 2.9 H Glucose 115 H 119 H POC Glucose Lactic Acid Calcium 7.9 L 8.0 L Phosphorus Magnesium Iron TIBC Transferrin C-Reactive Protein PTH Intact Urine WBC (Auto) Urine Creatinine Urine Microalbumin Urine Total Protein Complement C3 Crossmatch 07/05/17 07/06/17 07/06/17 Unknown 05:17 07:28 WBC Hgb Hct MCV MCH MCHC RDW Plt Count Seg Neuts % (Manual) Lymphocytes % (Manual) Seg Neutrophils # Man Lymphocytes # (Manual) Monocytes # (Manual) Lupus Anticoagulant LA PTT Baseline POC ABG pH POC ABG pCO2 28.0 L POC ABG pO2 193 H Sodium Potassium Chloride 112.6 H Carbon Dioxide 15 L BUN 35 H Creatinine 4.0 H Glucose POC Glucose Lactic Acid Calcium 5.8 L* D Phosphorus Magnesium 1.20 L Iron TIBC Transferrin 148 L C-Reactive Protein PTH Intact Urine WBC (Auto) Urine Creatinine 237.2 H Urine Microalbumin 39.9 H Urine Total Protein 170 H Complement C3 Crossmatch 07/06/17 07/06/17 07/06/17 07:28 07:28 10:27 WBC 28.9 H Hgb 7.1 L Hct 24.5 L MCV 66 L MCH 19 L MCHC 29 L RDW 38.6 H Plt Count Seg Neuts % (Manual) Lymphocytes % (Manual) Seg Neutrophils # Man Lymphocytes # (Manual) Monocytes # (Manual) Lupus Anticoagulant LA PTT Baseline POC ABG pH POC ABG pCO2 POC ABG pO2 Sodium Potassium Chloride Carbon Dioxide BUN Creatinine Glucose POC Glucose Lactic Acid Calcium Phosphorus Magnesium Iron TIBC Transferrin C-Reactive Protein PTH Intact 285.9 H Urine WBC (Auto) Urine Creatinine Urine Microalbumin Urine Total Protein Complement C3 Crossmatch See Detail 07/06/17 07/06/17 07/06/17 17:55 17:55 18:08 WBC Hgb Hct MCV MCH MCHC RDW Plt Count Seg Neuts % (Manual) Lymphocytes % (Manual) Seg Neutrophils # Man Lymphocytes # (Manual) Monocytes # (Manual) Lupus Anticoagulant see below H LA PTT Baseline 47 H POC ABG pH POC ABG pCO2 POC ABG pO2 Sodium Potassium Chloride Carbon Dioxide BUN Creatinine Glucose POC Glucose Lactic Acid Calcium Phosphorus Magnesium Iron TIBC Transferrin C-Reactive Protein 26.20 H PTH Intact Urine WBC (Auto) Urine Creatinine Urine Microalbumin Urine Total Protein Complement C3 77 L Crossmatch 07/07/17 07/07/17 07/07/17 04:18 05:59 05:59 WBC 24.9 H Hgb 8.8 L Hct 28.0 L MCV 72 L MCH 23 L MCHC RDW 33.3 H Plt Count Seg Neuts % (Manual) Lymphocytes % (Manual) Seg Neutrophils # Man Lymphocytes # (Manual) Monocytes # (Manual) Lupus Anticoagulant LA PTT Baseline POC ABG pH POC ABG pCO2 27.5 L POC ABG pO2 61 L Sodium Potassium Chloride Carbon Dioxide 17 L BUN 46 H Creatinine 4.8 H Glucose 103 H POC Glucose Lactic Acid Calcium 7.6 L D Phosphorus Magnesium Iron TIBC Transferrin C-Reactive Protein PTH Intact Urine WBC (Auto) Urine Creatinine Urine Microalbumin Urine Total Protein Complement C3 Crossmatch 07/07/17 07/08/17 07/08/17 05:59 04:22 04:22 WBC 21.3 H Hgb 8.9 L Hct 27.5 L MCV 71 L MCH 23 L MCHC RDW 35.0 H Plt Count Seg Neuts % (Manual) Lymphocytes % (Manual) Seg Neutrophils # Man Lymphocytes # (Manual) Monocytes # (Manual) Lupus Anticoagulant LA PTT Baseline POC ABG pH POC ABG pCO2 POC ABG pO2 Sodium Potassium Chloride Carbon Dioxide 18 L BUN 56 H Creatinine 4.3 H Glucose 110 H POC Glucose Lactic Acid Calcium 8.3 L Phosphorus Magnesium 2.50 H Iron TIBC Transferrin C-Reactive Protein PTH Intact Urine WBC (Auto) Urine Creatinine Urine Microalbumin Urine Total Protein Complement C3 Crossmatch 07/08/17 07/08/17 07/08/17 04:22 05:40 12:36 WBC Hgb Hct MCV MCH MCHC RDW Plt Count Seg Neuts % (Manual) Lymphocytes % (Manual) Seg Neutrophils # Man Lymphocytes # (Manual) Monocytes # (Manual) Lupus Anticoagulant LA PTT Baseline POC ABG pH POC ABG pCO2 POC ABG pO2 158 H Sodium Potassium Chloride Carbon Dioxide BUN Creatinine Glucose POC Glucose 109 H Lactic Acid Calcium Phosphorus 4.80 H Magnesium 2.60 H Iron TIBC Transferrin C-Reactive Protein PTH Intact Urine WBC (Auto) Urine Creatinine Urine Microalbumin Urine Total Protein Complement C3 Crossmatch 07/09/17 07/09/17 07/09/17 04:30 04:30 04:51 WBC Hgb Hct MCV MCH MCHC RDW Plt Count Seg Neuts % (Manual) Lymphocytes % (Manual) Seg Neutrophils # Man Lymphocytes # (Manual) Monocytes # (Manual) Lupus Anticoagulant LA PTT Baseline POC ABG pH 7.522 H POC ABG pCO2 POC ABG pO2 67 L Sodium Potassium 3.2 L D Chloride 96.3 L Carbon Dioxide BUN 60 H Creatinine 3.6 H Glucose 115 H POC Glucose Lactic Acid Calcium Phosphorus 4.80 H Magnesium Iron TIBC Transferrin C-Reactive Protein PTH Intact Urine WBC (Auto) Urine Creatinine Urine Microalbumin Urine Total Protein Complement C3 Crossmatch 07/09/17 07/09/17 07/09/17 12:26 17:51 23:48 WBC Hgb Hct MCV MCH MCHC RDW Plt Count Seg Neuts % (Manual) Lymphocytes % (Manual) Seg Neutrophils # Man Lymphocytes # (Manual) Monocytes # (Manual) Lupus Anticoagulant LA PTT Baseline POC ABG pH POC ABG pCO2 POC ABG pO2 Sodium Potassium Chloride Carbon Dioxide BUN Creatinine Glucose POC Glucose 140 H 152 H 149 H Lactic Acid Calcium Phosphorus Magnesium Iron TIBC Transferrin C-Reactive Protein PTH Intact Urine WBC (Auto) Urine Creatinine Urine Microalbumin Urine Total Protein Complement C3 Crossmatch 07/10/17 07/10/17 07/10/17 03:33 05:30 05:30 WBC 24.0 H Hgb 9.0 L Hct 29.3 L MCV 69 L MCH 21 L MCHC RDW 35.9 H Plt Count 451 H Seg Neuts % (Manual) Lymphocytes % (Manual) Seg Neutrophils # Man Lymphocytes # (Manual) Monocytes # (Manual) Lupus Anticoagulant LA PTT Baseline POC ABG pH 7.593 H POC ABG pCO2 34.7 L POC ABG pO2 73 L Sodium Potassium Chloride 96.8 L Carbon Dioxide 31 H BUN 61 H Creatinine 2.9 H Glucose 120 H POC Glucose Lactic Acid Calcium Phosphorus 5.20 H Magnesium Iron TIBC Transferrin C-Reactive Protein PTH Intact Urine WBC (Auto) Urine Creatinine Urine Microalbumin Urine Total Protein Complement C3 Crossmatch 07/10/17 07/10/17 07/10/17 12:19 17:59 23:51 WBC Hgb Hct MCV MCH MCHC RDW Plt Count Seg Neuts % (Manual) Lymphocytes % (Manual) Seg Neutrophils # Man Lymphocytes # (Manual) Monocytes # (Manual) Lupus Anticoagulant LA PTT Baseline POC ABG pH POC ABG pCO2 POC ABG pO2 Sodium Potassium Chloride Carbon Dioxide BUN Creatinine Glucose POC Glucose 143 H 147 H 139 H Lactic Acid Calcium Phosphorus Magnesium Iron TIBC Transferrin C-Reactive Protein PTH Intact Urine WBC (Auto) Urine Creatinine Urine Microalbumin Urine Total Protein Complement C3 Crossmatch 07/11/17 07/11/17 07/11/17 06:30 06:30 06:30 WBC 20.2 H Hgb 8.4 L Hct 26.0 L MCV 71 L MCH 23 L MCHC RDW 35.6 H Plt Count 469 H Seg Neuts % (Manual) Lymphocytes % (Manual) Seg Neutrophils # Man Lymphocytes # (Manual) Monocytes # (Manual) Lupus Anticoagulant LA PTT Baseline POC ABG pH POC ABG pCO2 POC ABG pO2 Sodium Potassium Chloride Carbon Dioxide 32 H BUN 58 H Creatinine 2.4 H Glucose 111 H POC Glucose Lactic Acid Calcium Phosphorus 6.10 H Magnesium 1.60 L Iron TIBC Transferrin C-Reactive Protein PTH Intact Urine WBC (Auto) Urine Creatinine Urine Microalbumin Urine Total Protein Complement C3 Crossmatch 07/11/17 07/11/1707/11/18 08:54 12:47 17:33 WBC Hgb Hct MCV MCH MCHC RDW Plt Count Seg Neuts % (Manual) Lymphocytes % (Manual) Seg Neutrophils # Man Lymphocytes # (Manual) Monocytes # (Manual) Lupus Anticoagulant LA PTT Baseline POC ABG pH 7.485 H POC ABG pCO2 POC ABG pO2 Sodium Potassium Chloride Carbon Dioxide BUN Creatinine Glucose POC Glucose 168 H 151 H Lactic Acid Calcium Phosphorus Magnesium Iron TIBC Transferrin C-Reactive Protein PTH Intact Urine WBC (Auto) Urine Creatinine Urine Microalbumin Urine Total Protein Complement C3 Crossmatch 07/11/17 07/12/17 07/12/17 23:52 05:39 06:25 WBC Hgb Hct MCV MCH MCHC RDW Plt Count Seg Neuts % (Manual) Lymphocytes % (Manual) Seg Neutrophils # Man Lymphocytes # (Manual) Monocytes # (Manual) Lupus Anticoagulant LA PTT Baseline POC ABG pH POC ABG pCO2 POC ABG pO2 Sodium Potassium Chloride Carbon Dioxide BUN 43 H Creatinine 1.8 H Glucose 138 H POC Glucose 156 H 146 H Lactic Acid Calcium Phosphorus 5.90 H Magnesium Iron TIBC Transferrin C-Reactive Protein PTH Intact Urine WBC (Auto) Urine Creatinine Urine Microalbumin Urine Total Protein Complement C3 Crossmatch Allied health notes reviewed: RT Critical care time in (mins) excluding proc time.: 31 Critical care attestation.: If time is entered above; I have spent that time in minutes in the direct care of this critically ill patient, excluding procedure time.
[2017-07-12] MEDS: ATIVAN IV SCH ×3 (11:12→23:08)
[2017-07-12] MEDS: PEPCID IV SCH (11:13)
[2017-07-12] MEDS: DIFLUCAN 200 MG/100 ML BAG IV SCH (11:13)
[2017-07-12] MEDS: DURAGESIC TD SCH (11:13)
[2017-07-12] MEDS: TRANSDERM-SCOP TD SCH (11:14)
--- NOTE | 2017-07-12 11:24 | Progress Note ---
Assessment and Plan - Patient Problems (1) Ischemia, bowel Current Visit: Yes Status: Acute Plan to address problem: Pt stable. s/p enteroenterostomy and closure of abdominal wall - 07/09 - POD#3. Decreasing bilious drainage from NGT. may be starting to have bowel function now. - Ok to extubate from my standpoint - Ok to start tube feeds at 10cc/hr. Do not advance at this time. Cont TPN. Can remove NGT when extubated. - Incision looks good. No clinical signs to suggest anastomotic leak Subjective Date of service: 07/12/17 Patient Reports: Positive: other (staff reports small smear (BM). Minimal NGT output o/n.) Objective Vital Signs - 12hr 07/11/17 07/11/17 07/11/17 23:30 23:36 23:45 Temperature Pulse Rate 135 H 132 H Respiratory 18 14 Rate Blood Pressure 174/85 174/85 O2 Sat by Pulse 98 98 Oximetry 07/11/17 07/12/17 07/12/17 23:54 00:00 00:30 Temperature 100.8 F H Pulse Rate 129 H 127 H 119 H Respiratory 16 18 15 Rate Blood Pressure 174/85 150/81 153/78 O2 Sat by Pulse 99 99 99 Oximetry 07/12/17 07/12/17 07/12/17 01:00 01:30 01:42 Temperature Pulse Rate 116 H 120 H 117 H Respiratory 12 13 Rate Blood Pressure 167/92 184/96 184/96 O2 Sat by Pulse 100 100 Oximetry 07/12/17 07/12/17 07/12/17 02:00 02:30 03:00 Temperature Pulse Rate 115 H 126 H 128 H Respiratory 13 19 18 Rate Blood Pressure 157/77 178/89 192/87 O2 Sat by Pulse 100 100 99 Oximetry 07/12/17 07/12/17 07/12/17 03:30 04:00 04:29 Temperature 99.9 F H Pulse Rate 125 H 117 H 112 H Respiratory 16 16 Rate Blood Pressure 193/86 204/84 204/84 O2 Sat by Pulse 99 100 100 Oximetry 07/12/17 07/12/17 07/12/17 04:30 05:00 05:30 Temperature Pulse Rate 118 H 114 H 128 H Respiratory 17 14 28 H Rate Blood Pressure 171/86 166/84 226/124 O2 Sat by Pulse 99 99 100 Oximetry 07/12/17 07/12/17 07/12/17 06:00 06:02 06:24 Temperature Pulse Rate 120 H 119 H 119 H Respiratory 17 Rate Blood Pressure 178/93 178/94 178/93 O2 Sat by Pulse 99 99 Oximetry 07/12/17 07/12/17 07/12/17 06:30 07:00 07:21 Temperature Pulse Rate 116 H 122 H 118 H Respiratory 25 H 22 22 Rate Blood Pressure 151/80 165/87 165/87 O2 Sat by Pulse 99 99 100 Oximetry 07/12/17 07/12/17 07/12/17 07:30 08:00 08:20 Temperature 99.2 F Pulse Rate 123 H 125 H Respiratory 30 H 23 Rate Blood Pressure 176/88 194/90 O2 Sat by Pulse 99 100 Oximetry 07/12/17 07/12/17 07/12/17 08:30 09:00 09:30 Temperature Pulse Rate 121 H 117 H 115 H Respiratory 31 H 29 H 28 H Rate Blood Pressure 190/94 145/76 158/80 O2 Sat by Pulse 99 99 99 Oximetry - General physical appearance no distress, no pain, other (intubated. sedated) - Respiratory normal expansion, normal respiratory effort - Abdomen soft, tender (perhaps mild tenderness throughout as she had minimal facial grimacing today - less than yesterday. ), not distended, not guarding, not rigid , other (incision C/d/I) - Integumentary no rash, no growths, no abnormal pigmentation - Labs 07/11/17 06:30 07/12/17 06:25 Diabetes panel 07/12/17 Range/Units 06:25 Sodium 144 (137-145) mmol/L Potassium 3.6 (3.6-5.0) mmol/L Chloride 102.0 (98-107) mmol/L Carbon Dioxide 30 (22-30) mmol/L BUN 43 H (7-17) mg/dL Creatinine 1.8 H (0.7-1.2) mg/dL Glucose 138 H (65-100) mg/dL Calcium 9.2 (8.4-10.2) mg/dL Calcium panel 07/12/17 Range/Units 06:25 Calcium 9.2 (8.4-10.2) mg/dL Phosphorus 5.90 H (2.5-4.5) mg/dL Pituitary panel 07/12/17 Range/Units 06:25 Sodium 144 (137-145) mmol/L Potassium 3.6 (3.6-5.0) mmol/L Chloride 102.0 (98-107) mmol/L Carbon Dioxide 30 (22-30) mmol/L BUN 43 H (7-17) mg/dL Creatinine 1.8 H (0.7-1.2) mg/dL Glucose 138 H (65-100) mg/dL Calcium 9.2 (8.4-10.2) mg/dL Adrenal panel 07/12/17 Range/Units 06:25 Sodium 144 (137-145) mmol/L Potassium 3.6 (3.6-5.0) mmol/L Chloride 102.0 (98-107) mmol/L Carbon Dioxide 30 (22-30) mmol/L BUN 43 H (7-17) mg/dL Creatinine 1.8 H (0.7-1.2) mg/dL Glucose 138 H (65-100) mg/dL Calcium 9.2 (8.4-10.2) mg/dL
--- NOTE | 2017-07-12 16:04 | Progress Note ---
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 New fever etiology ? unclear ? VAP 2) Peritonitis: secondary to gangrene of majority of small bowel and right colon. Approximately 30 cm of viable small bowel from ligament of treitz, transverse colon and remainder of colon viable. Unclear etiology: ?cocaine ? emboli -S/P Diagnostic laparoscopy, converted to exploratory laparotomy, small bowel resection, right hemicolectomy, temporary closure of abdomen on 07/06 -S/P Peritoneal Washing, enterocolostomy and closure of abdominal wall on 07/09 -TTE EF >55 no clots -CRP=26 -HIV neg -Viral hepatitis neg -Path - benign gangrenous small bowel, colon and appendix, no malignancy -ANCA neg -CHELSEA neg -C3 low (unlcear significance) -CXR repeat 07/12 Harlan infiltrates 3) Nausea, vomiting, abdominal pain and diarrhea: due to bowel gangrene -CT - bowels were normal -repeat CT w contrast showed multiple non distended small and large bowel loops ? ileus, no evidence of colitis or enteritis 4) Hypertensive urgency 5) Vaginal bleeding: from fibroids. CT showed uterine fibroids, 2.3 c left ovarian cyst. 6) Right liver lesion ? hemangioma. Viral hep neg 7) Small pericardial effusion 8) EMMA -better 9) Severe anemia: prob from fibroids Recommendations: -continue zosyn and fluconazole for now- D11/12 -repeat CRP - pending -repeat blood cx - pending -obtain sputum - pending -monitor fever Thanks for consultation Rachel Bryant MD Subjective Date of service: 07/12/17 Principal diagnosis: Post-Op Resp Failure on MVS; Ischemic Bowel s/p Ex-Lap; EMMA Interval history: Sedated on the vent, no need for pressors, tmax 99.8 Micro: Blood cx 07/03 ngtd Urine cx: 07/03 10-100K mixed bacteria Tracheal asp : 07/06 ngtd Abx: zosyn 07/09 Fluconazole 07/05 Previous Abx: Zosyn Levaquin Flagyl Vanco Meropenem 07/05-07/09 Objective - Constitutional Vitals: Vital Signs Temp Pulse Resp BP Pulse Ox 99.8 F H 135 H 20 183/89 99 07/12/17 15:44 07/12/17 15:00 07/12/17 15:00 07/12/17 15:00 07/12/17 15:00 Temperature -Last 24 Hours Temperature 99.8 F Temperature 99.1 F Temperature 99.2 F Temperature 99.9 F Temperature 100.8 F Temperature 100.0 F - Labs CBC & Chem 7: 07/11/17 06:30 07/12/17 06:25 Labs: Abnormal lab results 07/06/17 07/11/17 07/11/17 Range/Units 10:27 17:33 23:52 POC ABG pH (7.35-7.45) BUN (7-17) mg/dL Creatinine (0.7-1.2) mg/dL Glucose (65-100) mg/dL POC Glucose 151 H 156 H (70-105) Phosphorus (2.5-4.5) mg/dL Crossmatch See Detail 07/12/17 07/12/17 07/12/17 Range/Units 05:39 06:25 11:46 POC ABG pH 7.477 H (7.35-7.45) BUN 43 H (7-17) mg/dL Creatinine 1.8 H (0.7-1.2) mg/dL Glucose 138 H (65-100) mg/dL POC Glucose 146 H (70-105) Phosphorus 5.90 H (2.5-4.5) mg/dL Crossmatch 07/12/17 Range/Units 12:14 POC ABG pH (7.35-7.45) BUN (7-17) mg/dL Creatinine (0.7-1.2) mg/dL Glucose (65-100) mg/dL POC Glucose 156 H (70-105) Phosphorus (2.5-4.5) mg/dL Crossmatch
[2017-07-12] MEDS ORDERED: TPN ADULT 2,400 ML IV SCH (20:00)
[2017-07-12] MEDS: fentaNYL DRIP Premix 2,000 MCG/100 ML BAG IV SCH (23:44)
[2017-07-13] MEDS: ZOSYN/NS 2.25 GM/50ML 2.25 GM/50 ML BAG IV SCH ×4 (02:05→20:58)
--- NOTE | 2017-07-13 02:41 | XRay Report ---
FINAL REPORT PROCEDURE: XR CHEST 1V AP TECHNIQUE: Chest radiograph anteroposterior view. CPT 81603 HISTORY: follow up respiratory failure COMPARISON: 07/12/2017 FINDINGS: Heart: Heart is enlarged Mediastinum/Vessels: Normal. Lungs/Pleural space: There is a right pleural effusion. There are no pneumothoraces. The lungs are well-expanded.. Bony thorax: No acute osseous abnormality. Life support devices: The endotracheal tube is in the mid trachea. The NG tube is in the stomach. There is a left-sided PICC line. The tip is in the superior vena cava.. IMPRESSION: Heart is enlarged There is a right pleural effusion. There are no pneumothoraces. The lungs are well-expanded.. The endotracheal tube is in the mid trachea. The NG tube is in the stomach. There is a left-sided PICC line. The tip is in the superior vena cava.. .
[2017-07-13] MEDS: APRESOLINE IV PRN ×3 (02:54→20:20)
[2017-07-13] MEDS: HEPARIN SUB-Q SCH ×2 (05:09→15:00)
[2017-07-13] MEDS: ATIVAN IV SCH ×2 (05:09→12:43)
[2017-07-13 07:06] LABS: Calcium 8.9 mg/dL (8.4-10.2)
--- NOTE | 2017-07-13 08:21 | Progress Note ---
Assessment and Plan - Patient Problems (1) Ischemia, bowel Current Visit: Yes Status: Acute Plan to address problem: Pt stable. s/p enteroenterostomy and closure of abdominal wall - 07/09 - POD#4. Decreasing bilious drainage from NGT. may be starting to have bowel function now. - Ok to extubate from my standpoint - Ok to start tube feeds at 10cc/hr. Do not advance at this time. Cont TPN. Can remove NGT when extubated. - Incision looks good. No clinical signs to suggest anastomotic leak Subjective Date of service: 07/13/17 Patient Reports: Positive: other (nurse reports 200cc from NGT last night. + small smear of BM) Objective Vital Signs - 12hr 07/12/17 07/12/17 07/12/17 20:30 21:00 21:11 Temperature Pulse Rate 117 H 124 H 129 H Respiratory 30 H 47 H Rate Respiratory Rate [abd] Blood Pressure 185/92 254/115 254/115 O2 Sat by Pulse 99 100 100 Oximetry 07/12/17 07/12/17 07/12/17 21:30 22:00 22:30 Temperature Pulse Rate 122 H Respiratory 26 H Rate Respiratory 22 Rate [abd] Blood Pressure 249/103 218/101 243/168 O2 Sat by Pulse 100 100 99 Oximetry 07/12/17 07/12/17 07/12/17 23:00 23:21 23:30 Temperature Pulse Rate 144 H 139 H 119 H Respiratory 20 17 Rate Respiratory Rate [abd] Blood Pressure 160/92 199/155 164/93 O2 Sat by Pulse 99 99 99 Oximetry 07/12/17 07/13/17 07/13/17 23:39 00:00 00:30 Temperature 99.7 F H Pulse Rate 114 H 108 H Respiratory 27 H 13 14 Rate Respiratory Rate [abd] Blood Pressure 177/93 140/87 O2 Sat by Pulse 98 100 Oximetry 07/13/17 07/13/17 07/13/17 01:00 01:30 02:00 Temperature Pulse Rate 103 H 100 H 107 H Respiratory 14 13 14 Rate Respiratory Rate [abd] Blood Pressure 147/87 141/90 145/103 O2 Sat by Pulse 100 100 100 Oximetry 07/13/17 07/13/17 07/13/17 02:30 02:54 03:00 Temperature Pulse Rate 100 H 101 H 106 H Respiratory 14 15 Rate Respiratory Rate [abd] Blood Pressure 151/112 151/112 132/79 O2 Sat by Pulse 100 99 Oximetry 07/13/17 07/13/17 07/13/17 03:30 04:00 04:30 Temperature 99.9 F H Pulse Rate 103 H 102 H 123 H Respiratory 14 15 22 Rate Respiratory Rate [abd] Blood Pressure 122/71 131/79 185/100 O2 Sat by Pulse 100 100 100 Oximetry 07/13/17 07/13/17 07/13/17 04:32 05:00 05:30 Temperature Pulse Rate 115 H 132 H 115 H Respiratory 23 15 Rate Respiratory Rate [abd] Blood Pressure 131/79 192/97 141/86 O2 Sat by Pulse 100 99 98 Oximetry 07/13/17 07/13/17 07/13/17 06:00 06:30 08:08 Temperature Pulse Rate 111 H 113 H 115 H Respiratory 16 Rate Respiratory Rate [abd] Blood Pressure 146/76 173/102 164/97 O2 Sat by Pulse 100 100 100 Oximetry - General physical appearance no distress, other (intubated and sedated) - Respiratory normal expansion, normal respiratory effort - Abdomen soft, not distended, not guarding, not rigid, wound (C/D/I) - Labs 07/11/17 06:30 07/13/17 06:15 Diabetes panel 07/13/17 Range/Units 06:15 Sodium 149 H (137-145) mmol/L Potassium 3.6 (3.6-5.0) mmol/L Chloride 106.5 (98-107) mmol/L Carbon Dioxide 28 (22-30) mmol/L BUN 31 H (7-17) mg/dL Creatinine 1.3 H (0.7-1.2) mg/dL Glucose 112 H (65-100) mg/dL Calcium 8.9 (8.4-10.2) mg/dL Calcium panel 07/13/17 Range/Units 06:15 Calcium 8.9 (8.4-10.2) mg/dL Phosphorus 5.10 H (2.5-4.5) mg/dL Pituitary panel 07/13/17 Range/Units 06:15 Sodium 149 H (137-145) mmol/L Potassium 3.6 (3.6-5.0) mmol/L Chloride 106.5 (98-107) mmol/L Carbon Dioxide 28 (22-30) mmol/L BUN 31 H (7-17) mg/dL Creatinine 1.3 H (0.7-1.2) mg/dL Glucose 112 H (65-100) mg/dL Calcium 8.9 (8.4-10.2) mg/dL Adrenal panel 07/13/17 Range/Units 06:15 Sodium 149 H (137-145) mmol/L Potassium 3.6 (3.6-5.0) mmol/L Chloride 106.5 (98-107) mmol/L Carbon Dioxide 28 (22-30) mmol/L BUN 31 H (7-17) mg/dL Creatinine 1.3 H (0.7-1.2) mg/dL Glucose 112 H (65-100) mg/dL Calcium 8.9 (8.4-10.2) mg/dL
[2017-07-13] MEDS: SUBLIMAZE IV PRN ×3 (09:04→20:53)
[2017-07-13] MEDS: PEPCID IV SCH (09:05)
[2017-07-13] MEDS: DIFLUCAN 200 MG/100 ML BAG IV SCH (09:05)
--- NOTE | 2017-07-13 09:17 | Progress Note ---
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 New fever etiology ? unclear ? VAP 2) Peritonitis: secondary to gangrene of majority of small bowel and right colon. Approximately 30 cm of viable small bowel from ligament of treitz, transverse colon and remainder of colon viable. Unclear etiology: ?cocaine ? emboli -S/P Diagnostic laparoscopy, converted to exploratory laparotomy, small bowel resection, right hemicolectomy, temporary closure of abdomen on 07/06 -S/P Peritoneal Washing, enterocolostomy and closure of abdominal wall on 07/09 -TTE EF >55 no clots -CRP=26 -->10 -HIV neg -Viral hepatitis neg -Path - benign gangrenous small bowel, colon and appendix, no malignancy -ANCA neg -CHELSEA neg -C3 low (unlcear significance) -CXR repeat 07/12 Sanchez infiltrates 3) Nausea, vomiting, abdominal pain and diarrhea: due to bowel gangrene -CT - bowels were normal -repeat CT w contrast showed multiple non distended small and large bowel loops ? ileus, no evidence of colitis or enteritis 4) Hypertensive urgency 5) Vaginal bleeding: from fibroids. CT showed uterine fibroids, 2.3 c left ovarian cyst. 6) Right liver lesion ? hemangioma. Viral hep neg 7) Small pericardial effusion 8) EMMA -better 9) Severe anemia: prob from fibroids Recommendations: -continue zosyn and fluconazole for now- D1 -f/u repeat blood cx -f/u repeat sputum cx -monitor fever I will be available over the phone this . I will see back on Sunday. Thanks for consultation Rachel Bryant MD Subjective Date of service: 07/13/17 Principal diagnosis: Post-Op Resp Failure on MVS; Ischemic Bowel s/p Ex-Lap; EMMA Interval history: Sedated on the vent, no need for pressors, tmax 99.9 Micro: Blood cx / neg /10 ngtd Urine cx: 07/03 10-100K mixed bacteria Tracheal asp : 07/06 ngtd 10 ngtd Abx: zosyn 07/09 Fluconazole / Previous Abx: Zosyn Levaquin Flagyl Vanco Meropenem 07/05-07/09 Objective - Exam Narrative Exam: Alert intubated on the vent on CPAP JULIANN, clear OP Neck no LN Lungs CTA sanchez CV tachy Abd soft +surg wound covered with dressings Ext no edema Skin no rash Neuro sedated - Constitutional Vitals: Vital Signs Temp Pulse Resp BP Pulse Ox 98.9 F 111 H 16 168/89 100 07/13/17 08:00 07/13/17 09:13 07/13/17 06:00 07/13/17 09:13 07/13/17 08:08 Temperature -Last 24 Hours Temperature 98.9 F Temperature 99.9 F Temperature 99.7 F Temperature 99.9 F Temperature 99.8 F Temperature 99.1 F - Labs CBC & Chem 7: 07/11/17 06:30 07/13/17 06:15 Labs: Abnormal lab results 07/12/17 07/12/17 07/12/17 Range/Units 11:46 12:14 17:01 POC ABG pH 7.477 H (7.35-7.45) Sodium (137-145) mmol/L BUN (7-17) mg/dL Creatinine (0.7-1.2) mg/dL Glucose (65-100) mg/dL POC Glucose 156 H (70-105) Phosphorus (2.5-4.5) mg/dL Magnesium (1.7-2.3) mg/dL C-Reactive Protein 10.30 H (0.00-1.30) mg/dL 07/12/17 07/12/17 07/13/17 Range/Units 18:03 23:47 05:53 POC ABG pH (7.35-7.45) Sodium (137-145) mmol/L BUN (7-17) mg/dL Creatinine (0.7-1.2) mg/dL Glucose (65-100) mg/dL POC Glucose 140 H 158 H 137 H (70-105) Phosphorus (2.5-4.5) mg/dL Magnesium (1.7-2.3) mg/dL C-Reactive Protein (0.00-1.30) mg/dL 07/13/17 07/13/17 Range/Units 06:15 08:26 POC ABG pH 7.459 H (7.35-7.45) Sodium 149 H (137-145) mmol/L BUN 31 H (7-17) mg/dL Creatinine 1.3 H (0.7-1.2) mg/dL Glucose 112 H (65-100) mg/dL POC Glucose (70-105) Phosphorus 5.10 H (2.5-4.5) mg/dL Magnesium 1.60 L (1.7-2.3) mg/dL C-Reactive Protein (0.00-1.30) mg/dL
[2017-07-13] MEDS ORDERED: NORMODYNE IV NR (10:00)
--- NOTE | 2017-07-13 10:32 | Progress Note ---
Assessment and Plan Postoperative respiratory failure, now on mechanical ventilatory support Sepsis syndrome. Ischemic bowel, possibly secondary to embolic event vs related to drug abuse H/O Cocaine use with possibility of arterial spasm. Acute kidney injury. Leukocytosis. Uncontrolled hypertension. Severe anemia. Drug abuse. Alcohol abuse -VAP bundle addressed - daily SATs and SBT's -tolerating PSV at this time, RSBI 68, NIF-35 ABG PS10/5 7.45/40.4/99/28/98% - continue anti-infectives per ID recs - initiate trophic tubes - continue TPN per surgery - continue GI & VTE prophylaxis -Liberate from mechanical ventilatory support PT/OT to evaluate and treat Subjective Date of service: 07/13/17 Principal diagnosis: Post-Op Resp Failure on MVS; Ischemic Bowel s/p Ex-Lap; EMMA Interval history: Follow up: Sepsis, severe anemia, malignant hypertension, abdominal pain Seen and examined at bedside; 24hour events reviewed with nursing staff Blood pressure controlled Tolerating PSV 10/, awake and alert OK to initiate trickle feeds at 10cc/hour Agitation overnight, pulling at her tubes On empiric antibiotics per ID-levofloxacin/metronidazole Objective Vital Signs - 12hr 07/12/17 07/12/17 07/12/17 22:30 23:00 23:21 Temperature Pulse Rate 144 H 139 H Respiratory 20 Rate Blood Pressure 243/168 160/92 199/155 O2 Sat by Pulse 99 99 99 Oximetry 07/12/17 07/12/17 07/13/17 23:30 23:39 00:00 Temperature 99.7 F H Pulse Rate 119 H 114 H Respiratory 17 27 H 13 Rate Blood Pressure 164/93 177/93 O2 Sat by Pulse 99 98 Oximetry 07/13/17 07/13/17 07/13/17 00:30 01:00 01:30 Temperature Pulse Rate 108 H 103 H 100 H Respiratory 14 14 13 Rate Blood Pressure 140/87 147/87 141/90 O2 Sat by Pulse 100 100 100 Oximetry 07/13/17 07/13/17 07/13/17 02:00 02:30 02:54 Temperature Pulse Rate 107 H 100 H 101 H Respiratory 14 14 Rate Blood Pressure 145/103 151/112 151/112 O2 Sat by Pulse 100 100 Oximetry 07/13/17 07/13/17 07/13/17 03:00 03:30 04:00 Temperature 99.9 F H Pulse Rate 106 H 103 H 102 H Respiratory 15 14 15 Rate Blood Pressure 132/79 122/71 131/79 O2 Sat by Pulse 99 100 100 Oximetry 07/13/17 07/13/17 07/13/17 04:30 04:32 05:00 Temperature Pulse Rate 123 H 115 H 132 H Respiratory 22 23 Rate Blood Pressure 185/100 131/79 192/97 O2 Sat by Pulse 100 100 99 Oximetry 07/13/17 07/13/17 07/13/17 05:30 06:00 06:30 Temperature Pulse Rate 115 H 111 H 120 H Respiratory 15 16 23 Rate Blood Pressure 141/86 146/76 173/102 O2 Sat by Pulse 98 100 100 Oximetry 07/13/17 07/13/17 07/13/17 07:00 07:30 08:00 Temperature 98.9 F Pulse Rate 124 H 112 H 119 H Respiratory 25 H 22 17 Rate Blood Pressure 171/96 167/98 202/119 O2 Sat by Pulse 100 100 100 Oximetry 07/13/17 07/13/17 07/13/17 08:08 08:30 09:00 Temperature Pulse Rate 115 H 130 H 115 H Respiratory 23 24 Rate Blood Pressure 164/97 213/127 168/89 O2 Sat by Pulse 100 99 100 Oximetry 07/13/17 07/13/17 09:13 09:30 Temperature Pulse Rate 111 H 111 H Respiratory 21 Rate Blood Pressure 168/89 146/80 O2 Sat by Pulse 100 Oximetry Constitutional: no acute distress, other ( orally intubated) Eyes: non-icteric ENT: oropharynx moist, other (ETT 23 cm IVA) Neck: supple, no lymphadenopathy, no JVD, other (no thyromegaly) Effort: mildly labored Ascultation: Bilateral: diminished breath sounds (bases), rhonchi Percussion: Bilateral: not dull Cardiovascular: regular rate and rhythm, other (No R/M) Gastrointestinal: hypoactive bowel sounds, non-distended, other (no palpable HSM ; clean dry wound site with marilyn) Integumentary: normal Extremities: no cyanosis, no edema, pulses normal, no ischemia or petechiae Neurologic: normal mental status, non-focal exam, pupils equal and round, CN II- XII normal, motor strength normal and Psychiatric: mood appropriate, affect normal, anxious CBC and BMP: 07/11/17 06:30 07/13/17 06:15 ABG, PT/INR, D-dimer: ABG POC ABG pH 7.459 (7.35-7.45) H 07/13/17 08:26 POC ABG pCO2 40.4 (35-45) 07/13/17 08:26 POC ABG pO2 99 (80-105) 07/13/17 08:26 POC ABG HCO3 28.6 07/13/17 08:26 POC ABG Total CO2 30 07/13/17 08:26 POC ABG O2 Sat 98 07/13/17 08:26 PT/INR, D-dimer PT 12.5 Sec. (12.2-14.9) 07/03/17 06:19 INR 0.89 (0.87-1.13) 07/03/17 06:19 Abnormal lab findings: Abnormal Labs 07/03/17 07/03/17 07/03/17 05:11 05:28 05:28 WBC 12.9 H Hgb 5.6 L* Hct 22.3 L MCV 59 L MCH 15 L MCHC 25 L RDW 33.3 H Plt Count 125 L Seg Neuts % (Manual) 75.0 H Lymphocytes % (Manual) Seg Neutrophils # Man 9.7 H Lymphocytes # (Manual) Monocytes # (Manual) Lupus Anticoagulant LA PTT Baseline POC ABG pH POC ABG pCO2 POC ABG pO2 Sodium Potassium 3.0 L Chloride Carbon Dioxide BUN Creatinine 0.6 L Glucose 220 H POC Glucose 188 H Lactic Acid Calcium Phosphorus Magnesium Iron TIBC Transferrin C-Reactive Protein PTH Intact Urine WBC (Auto) Urine Creatinine Urine Microalbumin Urine Total Protein Complement C3 Crossmatch 07/03/17 07/03/17 07/03/17 06:19 06:35 08:42 WBC Hgb Hct MCV MCH MCHC RDW Plt Count Seg Neuts % (Manual) Lymphocytes % (Manual) Seg Neutrophils # Man Lymphocytes # (Manual) Monocytes # (Manual) Lupus Anticoagulant LA PTT Baseline POC ABG pH POC ABG pCO2 POC ABG pO2 Sodium Potassium Chloride Carbon Dioxide BUN Creatinine Glucose POC Glucose Lactic Acid 2.50 H* 2.20 H* Calcium Phosphorus Magnesium Iron TIBC Transferrin C-Reactive Protein PTH Intact Urine WBC (Auto) Urine Creatinine Urine Microalbumin Urine Total Protein Complement C3 Crossmatch See Detail 07/03/17 07/03/17 07/03/17 09:31 09:31 11:50 WBC Hgb 5.7 L* Hct 22.4 L MCV MCH MCHC RDW Plt Count Seg Neuts % (Manual) Lymphocytes % (Manual) Seg Neutrophils # Man Lymphocytes # (Manual) Monocytes # (Manual) Lupus Anticoagulant LA PTT Baseline POC ABG pH POC ABG pCO2 POC ABG pO2 Sodium Potassium Chloride Carbon Dioxide BUN Creatinine Glucose POC Glucose Lactic Acid 2.80 H* Calcium Phosphorus Magnesium Iron 12 L TIBC 534 H Transferrin C-Reactive Protein PTH Intact Urine WBC (Auto) Urine Creatinine Urine Microalbumin Urine Total Protein Complement C3 Crossmatch 07/03/17 07/03/17 07/03/17 16:50 16:50 Unknown WBC Hgb 9.7 L D Hct MCV MCH MCHC RDW Plt Count Seg Neuts % (Manual) Lymphocytes % (Manual) Seg Neutrophils # Man Lymphocytes # (Manual) Monocytes # (Manual) Lupus Anticoagulant LA PTT Baseline POC ABG pH POC ABG pCO2 POC ABG pO2 Sodium Potassium Chloride Carbon Dioxide BUN Creatinine Glucose POC Glucose Lactic Acid 2.30 H* Calcium Phosphorus Magnesium Iron TIBC Transferrin C-Reactive Protein PTH Intact Urine WBC (Auto) 18.0 H Urine Creatinine Urine Microalbumin Urine Total Protein Complement C3 Crossmatch 07/04/17 07/04/17 07/04/17 03:57 03:57 04:39 WBC 42.4 H* 42.8 H* Hgb 9.1 L 9.3 L Hct MCV 65 L 66 L MCH 19 L 20 L MCHC 29 L RDW 37.3 H 37.3 H Plt Count 120 L Seg Neuts % (Manual) 93.5 H Lymphocytes % (Manual) 2.5 L Seg Neutrophils # Man 40.0 H Lymphocytes # (Manual) 1.1 L Monocytes # (Manual) 1.1 H Lupus Anticoagulant LA PTT Baseline POC ABG pH POC ABG pCO2 POC ABG pO2 Sodium 134 L Potassium 3.5 L Chloride 95.4 L Carbon Dioxide 21 L BUN 6 L Creatinine 0.5 L Glucose 147 H POC Glucose Lactic Acid Calcium 7.9 L Phosphorus Magnesium Iron TIBC Transferrin C-Reactive Protein PTH Intact Urine WBC (Auto) Urine Creatinine Urine Microalbumin Urine Total Protein Complement C3 Crossmatch 07/04/17 07/04/17 07/05/17 12:09 17:11 08:21 WBC 56.3 H* Hgb 8.3 L Hct 29.1 L MCV 66 L MCH 19 L MCHC 28 L RDW 38.3 H Plt Count Seg Neuts % (Manual) 96.5 H Lymphocytes % (Manual) 1.0 L Seg Neutrophils # Man 54.3 H Lymphocytes # (Manual) 0.6 L Monocytes # (Manual) 1.4 H Lupus Anticoagulant LA PTT Baseline POC ABG pH POC ABG pCO2 POC ABG pO2 Sodium Potassium Chloride Carbon Dioxide BUN Creatinine Glucose POC Glucose 169 H 124 H Lactic Acid Calcium Phosphorus Magnesium Iron TIBC Transferrin C-Reactive Protein PTH Intact Urine WBC (Auto) Urine Creatinine Urine Microalbumin Urine Total Protein Complement C3 Crossmatch 07/05/17 07/05/17 07/05/17 08:21 10:55 22:34 WBC Hgb Hct MCV MCH MCHC RDW Plt Count Seg Neuts % (Manual) Lymphocytes % (Manual) Seg Neutrophils # Man Lymphocytes # (Manual) Monocytes # (Manual) Lupus Anticoagulant LA PTT Baseline POC ABG pH 7.185 L POC ABG pCO2 33.8 L POC ABG pO2 Sodium 135 L 135 L Potassium Chloride Carbon Dioxide 18 L 16 L BUN 25 H 27 H Creatinine 2.7 H D 2.9 H Glucose 115 H 119 H POC Glucose Lactic Acid Calcium 7.9 L 8.0 L Phosphorus Magnesium Iron TIBC Transferrin C-Reactive Protein PTH Intact Urine WBC (Auto) Urine Creatinine Urine Microalbumin Urine Total Protein Complement C3 Crossmatch 07/05/17 07/06/17 07/06/17 Unknown 05:17 07:28 WBC Hgb Hct MCV MCH MCHC RDW Plt Count Seg Neuts % (Manual) Lymphocytes % (Manual) Seg Neutrophils # Man Lymphocytes # (Manual) Monocytes # (Manual) Lupus Anticoagulant LA PTT Baseline POC ABG pH POC ABG pCO2 28.0 L POC ABG pO2 193 H Sodium Potassium Chloride 112.6 H Carbon Dioxide 15 L BUN 35 H Creatinine 4.0 H Glucose POC Glucose Lactic Acid Calcium 5.8 L* D Phosphorus Magnesium 1.20 L Iron TIBC Transferrin 148 L C-Reactive Protein PTH Intact Urine WBC (Auto) Urine Creatinine 237.2 H Urine Microalbumin 39.9 H Urine Total Protein 170 H Complement C3 Crossmatch 07/06/17 07/06/17 07/06/17 07:28 07:28 10:27 WBC 28.9 H Hgb 7.1 L Hct 24.5 L MCV 66 L MCH 19 L MCHC 29 L RDW 38.6 H Plt Count Seg Neuts % (Manual) Lymphocytes % (Manual) Seg Neutrophils # Man Lymphocytes # (Manual) Monocytes # (Manual) Lupus Anticoagulant LA PTT Baseline POC ABG pH POC ABG pCO2 POC ABG pO2 Sodium Potassium Chloride Carbon Dioxide BUN Creatinine Glucose POC Glucose Lactic Acid Calcium Phosphorus Magnesium Iron TIBC Transferrin C-Reactive Protein PTH Intact 285.9 H Urine WBC (Auto) Urine Creatinine Urine Microalbumin Urine Total Protein Complement C3 Crossmatch See Detail 07/06/17 07/06/17 07/06/17 17:55 17:55 18:08 WBC Hgb Hct MCV MCH MCHC RDW Plt Count Seg Neuts % (Manual) Lymphocytes % (Manual) Seg Neutrophils # Man Lymphocytes # (Manual) Monocytes # (Manual) Lupus Anticoagulant see below H LA PTT Baseline 47 H POC ABG pH POC ABG pCO2 POC ABG pO2 Sodium Potassium Chloride Carbon Dioxide BUN Creatinine Glucose POC Glucose Lactic Acid Calcium Phosphorus Magnesium Iron TIBC Transferrin C-Reactive Protein 26.20 H PTH Intact Urine WBC (Auto) Urine Creatinine Urine Microalbumin Urine Total Protein Complement C3 77 L Crossmatch 07/07/17 07/07/17 07/07/17 04:18 05:59 05:59 WBC 24.9 H Hgb 8.8 L Hct 28.0 L MCV 72 L MCH 23 L MCHC RDW 33.3 H Plt Count Seg Neuts % (Manual) Lymphocytes % (Manual) Seg Neutrophils # Man Lymphocytes # (Manual) Monocytes # (Manual) Lupus Anticoagulant LA PTT Baseline POC ABG pH POC ABG pCO2 27.5 L POC ABG pO2 61 L Sodium Potassium Chloride Carbon Dioxide 17 L BUN 46 H Creatinine 4.8 H Glucose 103 H POC Glucose Lactic Acid Calcium 7.6 L D Phosphorus Magnesium Iron TIBC Transferrin C-Reactive Protein PTH Intact Urine WBC (Auto) Urine Creatinine Urine Microalbumin Urine Total Protein Complement C3 Crossmatch 07/07/17 07/08/17 07/08/17 05:59 04:22 04:22 WBC 21.3 H Hgb 8.9 L Hct 27.5 L MCV 71 L MCH 23 L MCHC RDW 35.0 H Plt Count Seg Neuts % (Manual) Lymphocytes % (Manual) Seg Neutrophils # Man Lymphocytes # (Manual) Monocytes # (Manual) Lupus Anticoagulant LA PTT Baseline POC ABG pH POC ABG pCO2 POC ABG pO2 Sodium Potassium Chloride Carbon Dioxide 18 L BUN 56 H Creatinine 4.3 H Glucose 110 H POC Glucose Lactic Acid Calcium 8.3 L Phosphorus Magnesium 2.50 H Iron TIBC Transferrin C-Reactive Protein PTH Intact Urine WBC (Auto) Urine Creatinine Urine Microalbumin Urine Total Protein Complement C3 Crossmatch 07/08/17 07/08/17 07/08/17 04:22 05:40 12:36 WBC Hgb Hct MCV MCH MCHC RDW Plt Count Seg Neuts % (Manual) Lymphocytes % (Manual) Seg Neutrophils # Man Lymphocytes # (Manual) Monocytes # (Manual) Lupus Anticoagulant LA PTT Baseline POC ABG pH POC ABG pCO2 POC ABG pO2 158 H Sodium Potassium Chloride Carbon Dioxide BUN Creatinine Glucose POC Glucose 109 H Lactic Acid Calcium Phosphorus 4.80 H Magnesium 2.60 H Iron TIBC Transferrin C-Reactive Protein PTH Intact Urine WBC (Auto) Urine Creatinine Urine Microalbumin Urine Total Protein Complement C3 Crossmatch 07/09/17 07/09/17 07/09/17 04:30 04:30 04:51 WBC Hgb Hct MCV MCH MCHC RDW Plt Count Seg Neuts % (Manual) Lymphocytes % (Manual) Seg Neutrophils # Man Lymphocytes # (Manual) Monocytes # (Manual) Lupus Anticoagulant LA PTT Baseline POC ABG pH 7.522 H POC ABG pCO2 POC ABG pO2 67 L Sodium Potassium 3.2 L D Chloride 96.3 L Carbon Dioxide BUN 60 H Creatinine 3.6 H Glucose 115 H POC Glucose Lactic Acid Calcium Phosphorus 4.80 H Magnesium Iron TIBC Transferrin C-Reactive Protein PTH Intact Urine WBC (Auto) Urine Creatinine Urine Microalbumin Urine Total Protein Complement C3 Crossmatch 07/09/17 07/09/17 07/09/17 12:26 17:51 23:48 WBC Hgb Hct MCV MCH MCHC RDW Plt Count Seg Neuts % (Manual) Lymphocytes % (Manual) Seg Neutrophils # Man Lymphocytes # (Manual) Monocytes # (Manual) Lupus Anticoagulant LA PTT Baseline POC ABG pH POC ABG pCO2 POC ABG pO2 Sodium Potassium Chloride Carbon Dioxide BUN Creatinine Glucose POC Glucose 140 H 152 H 149 H Lactic Acid Calcium Phosphorus Magnesium Iron TIBC Transferrin C-Reactive Protein PTH Intact Urine WBC (Auto) Urine Creatinine Urine Microalbumin Urine Total Protein Complement C3 Crossmatch 07/10/17 07/10/17 07/10/17 03:33 05:30 05:30 WBC 24.0 H Hgb 9.0 L Hct 29.3 L MCV 69 L MCH 21 L MCHC RDW 35.9 H Plt Count 451 H Seg Neuts % (Manual) Lymphocytes % (Manual) Seg Neutrophils # Man Lymphocytes # (Manual) Monocytes # (Manual) Lupus Anticoagulant LA PTT Baseline POC ABG pH 7.593 H POC ABG pCO2 34.7 L POC ABG pO2 73 L Sodium Potassium Chloride 96.8 L Carbon Dioxide 31 H BUN 61 H Creatinine 2.9 H Glucose 120 H POC Glucose Lactic Acid Calcium Phosphorus 5.20 H Magnesium Iron TIBC Transferrin C-Reactive Protein PTH Intact Urine WBC (Auto) Urine Creatinine Urine Microalbumin Urine Total Protein Complement C3 Crossmatch 07/10/17 07/10/17 07/10/17 12:19 17:59 23:51 WBC Hgb Hct MCV MCH MCHC RDW Plt Count Seg Neuts % (Manual) Lymphocytes % (Manual) Seg Neutrophils # Man Lymphocytes # (Manual) Monocytes # (Manual) Lupus Anticoagulant LA PTT Baseline POC ABG pH POC ABG pCO2 POC ABG pO2 Sodium Potassium Chloride Carbon Dioxide BUN Creatinine Glucose POC Glucose 143 H 147 H 139 H Lactic Acid Calcium Phosphorus Magnesium Iron TIBC Transferrin C-Reactive Protein PTH Intact Urine WBC (Auto) Urine Creatinine Urine Microalbumin Urine Total Protein Complement C3 Crossmatch 07/11/17 07/11/17 07/11/17 06:30 06:30 06:30 WBC 20.2 H Hgb 8.4 L Hct 26.0 L MCV 71 L MCH 23 L MCHC RDW 35.6 H Plt Count 469 H Seg Neuts % (Manual) Lymphocytes % (Manual) Seg Neutrophils # Man Lymphocytes # (Manual) Monocytes # (Manual) Lupus Anticoagulant LA PTT Baseline POC ABG pH POC ABG pCO2 POC ABG pO2 Sodium Potassium Chloride Carbon Dioxide 32 H BUN 58 H Creatinine 2.4 H Glucose 111 H POC Glucose Lactic Acid Calcium Phosphorus 6.10 H Magnesium 1.60 L Iron TIBC Transferrin C-Reactive Protein PTH Intact Urine WBC (Auto) Urine Creatinine Urine Microalbumin Urine Total Protein Complement C3 Crossmatch 07/11/17 07/11/17 07/11/17 08:54 12:47 17:33 WBC Hgb Hct MCV MCH MCHC RDW Plt Count Seg Neuts % (Manual) Lymphocytes % (Manual) Seg Neutrophils # Man Lymphocytes # (Manual) Monocytes # (Manual) Lupus Anticoagulant LA PTT Baseline POC ABG pH 7.485 H POC ABG pCO2 POC ABG pO2 Sodium Potassium Chloride Carbon Dioxide BUN Creatinine Glucose POC Glucose 168 H 151 H Lactic Acid Calcium Phosphorus Magnesium Iron TIBC Transferrin C-Reactive Protein PTH Intact Urine WBC (Auto) Urine Creatinine Urine Microalbumin Urine Total Protein Complement C3 Crossmatch 07/11/17 07/12/17 07/12/17 23:52 05:39 06:25 WBC Hgb Hct MCV MCH MCHC RDW Plt Count Seg Neuts % (Manual) Lymphocytes % (Manual) Seg Neutrophils # Man Lymphocytes # (Manual) Monocytes # (Manual) Lupus Anticoagulant LA PTT Baseline POC ABG pH POC ABG pCO2 POC ABG pO2 Sodium Potassium Chloride Carbon Dioxide BUN 43 H Creatinine 1.8 H Glucose 138 H POC Glucose 156 H 146 H Lactic Acid Calcium Phosphorus 5.90 H Magnesium Iron TIBC Transferrin C-Reactive Protein PTH Intact Urine WBC (Auto) Urine Creatinine Urine Microalbumin Urine Total Protein Complement C3 Crossmatch 07/12/17 07/12/17 07/12/17 11:46 12:14 17:01 WBC Hgb Hct MCV MCH MCHC RDW Plt Count Seg Neuts % (Manual) Lymphocytes % (Manual) Seg Neutrophils # Man Lymphocytes # (Manual) Monocytes # (Manual) Lupus Anticoagulant LA PTT Baseline POC ABG pH 7.477 H POC ABG pCO2 POC ABG pO2 Sodium Potassium Chloride Carbon Dioxide BUN Creatinine Glucose POC Glucose 156 H Lactic Acid Calcium Phosphorus Magnesium Iron TIBC Transferrin C-Reactive Protein 10.30 H PTH Intact Urine WBC (Auto) Urine Creatinine Urine Microalbumin Urine Total Protein Complement C3 Crossmatch 07/12/17 07/12/17 07/13/17 18:03 23:47 05:53 WBC Hgb Hct MCV MCH MCHC RDW Plt Count Seg Neuts % (Manual) Lymphocytes % (Manual) Seg Neutrophils # Man Lymphocytes # (Manual) Monocytes # (Manual) Lupus Anticoagulant LA PTT Baseline POC ABG pH POC ABG pCO2 POC ABG pO2 Sodium Potassium Chloride Carbon Dioxide BUN Creatinine Glucose POC Glucose 140 H 158 H 137 H Lactic Acid Calcium Phosphorus Magnesium Iron TIBC Transferrin C-Reactive Protein PTH Intact Urine WBC (Auto) Urine Creatinine Urine Microalbumin Urine Total Protein Complement C3 Crossmatch 07/13/17 07/13/17 06:15 08:26 WBC Hgb Hct MCV MCH MCHC RDW Plt Count Seg Neuts % (Manual) Lymphocytes % (Manual) Seg Neutrophils # Man Lymphocytes # (Manual) Monocytes # (Manual) Lupus Anticoagulant LA PTT Baseline POC ABG pH 7.459 H POC ABG pCO2 POC ABG pO2 Sodium 149 H Potassium Chloride Carbon Dioxide BUN 31 H Creatinine 1.3 H Glucose 112 H POC Glucose Lactic Acid Calcium Phosphorus 5.10 H Magnesium 1.60 L Iron TIBC Transferrin C-Reactive Protein PTH Intact Urine WBC (Auto) Urine Creatinine Urine Microalbumin Urine Total Protein Complement C3 Crossmatch Allied health notes reviewed: RT
[2017-07-13 11:11] LABS: Hematocrit 24.4 % (30.3-42.9); Hemoglobin 7.6 gm/dl (10.1-14.3); Mean Corpuscular HGB Conc 31 % (30-34); Mean Corpuscular Hemoglobin 23 pg (28-32); Mean Corpuscular Volume 73 fl (79-97); Platelet Count 520 K/mm3 (140-440); Red Blood Count 3.35 M/mm3 (3.65-5.03); Red Cell Distribution Width 35.3 % (13.2-15.2)
[2017-07-13 11:43] LABS: Anisocytosis 3+; Basophils % (Manual) 0 % (0.0-1.8); Total Cells Counted 100
[2017-07-13 11:44] LABS: Hypochromasia 2+; Ovalocytes 1+; Poikilocytosis 1+; Tear Drop Cells Few
[2017-07-13 11:45] LABS: Platelet Estimate Cons
[2017-07-13] MEDS ORDERED: SODIUM BICARBONATE FEEDTUBE PRN (16:03)
[2017-07-13] MEDS ORDERED: PANCREAZE DR 10,500 UNIT FEEDTUBE PRN (16:03)
[2017-07-13] MEDS ORDERED: SIMPLE SYRUP FEEDTUBE PRN ×2 (16:03)
--- NOTE | 2017-07-13 16:16 | Progress Note ---
Assessment and Plan Assessment and plan: Patient is a 42-year-old female with no significant past medical history significant for hypertension which she takes lisinopril 10 mg daily. etoh abuse who pw abdominal pain and diarrhea 1. Severe Sepsis due to gangrenous bowel; sp removal of near complete small intestine; lifelong TPN for nutrition, received abx per ID 2. EMMA secondary to vasomotor nephropathy with underlying ATN; resolved 3. Peritoneal irritation due to infected bowel 4. Severe Anemia, Transfuse as need 5. Ischemic/Gangrenous Bowel 6. Worsening luekocytosis 7. Symptomatic Anemia 8. Hypertensive urgency-resolved 9. Menorraghia secondary to Fibroids 10. Etoh use disorder 11. Right liver lesion ?Hemangioma 12. Multiple electrolyte abnormalities 13. Hypothermia-Resolved 14. Cocain abuse per hx. Not mentioned on admission. Only alcohol which was minimized. 15. 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 Acute respiratory failure on MV >96 hours; weaned off vent, improving The high probability of a clinically significant, sudden or life threatening deterioration of the [GI, renal] system(s) required my full and direct attention , intervention and personal management. The aggregate critical care time was [35 ] minutes. This time is in addition to time spent performing reported procedures but includes the following: [X] Data Review and interpretation [X] Patient assessment and monitoring of vital signs [X] Documentation [X] Medication orders and management History Interval history: was extubated no vomiting, no agiation, no fever, no cough Hospitalist Physical - Physical exam Narrative exam: General appearance: Present: no acute distress - EENT Eyes: Present: PERRL ENT: clear oral mucosa - Neck Neck: Present: supple - Respiratory Respiratory effort: normal Respiratory: bilateral: CTA - Cardiovascular Rhythm: regular Heart Sounds: Present: S1 & S2 - Extremities Extremities: no ischemia Peripheral Pulses: within normal limits - Abdominal General gastrointestinal: soft, other (post surgical changes) - Integumentary Integumentary: Present: clear, warm, dry - Psychiatric Psychiatric: cooperative - Neurologic Neurologic: moves all extremities - Constitutional Vitals: Temp Pulse Resp BP Pulse Ox 98.0 F 114 H 32 H 173/100 100 07/13/17 12:00 07/13/17 15:30 07/13/17 15:30 07/13/17 15:30 07/13/17 15:30 Results - Labs CBC & Chem 7: 07/13/17 10:43 07/17/17 07:00 Labs: Laboratory Last Values WBC 18.3 K/mm3 (4.5-11.0) H 07/13/17 10:43 RBC 3.35 M/mm3 (3.65-5.03) L 07/13/17 10:43 Hgb 7.6 gm/dl (10.1-14.3) L 07/13/17 10:43 Hct 24.4 % (30.3-42.9) L 07/13/17 10:43 MCV 73 fl (79-97) L 07/13/17 10:43 MCH 23 pg (28-32) L 07/13/17 10:43 MCHC 31 % (30-34) 07/13/17 10:43 RDW 35.3 % (13.2-15.2) H 07/13/17 10:43 Plt Count 520 K/mm3 (140-440) H 07/13/17 10:43 Lymph % (Auto) Statistical Programmer Analyst 07/03/17 05:28 [place] % (Auto) Statistical Programmer Analyst 07/03/17 05:28 Eos % (Auto) Statistical Programmer Analyst 07/03/17 05:28 Baso % (Auto) Statistical Programmer Analyst 07/03/17 05:28 Lymph # Statistical Programmer Analyst 07/03/17 05:28 [place] # Statistical Programmer Analyst 07/03/17 05:28 Eos # Statistical Programmer Analyst 07/03/17 05:28 Baso # Statistical Programmer Analyst 07/03/17 05:28 Add Manual Diff Complete 07/13/17 10:43 Total Counted 100 07/13/17 10:43 Seg Neutrophils % Statistical Programmer Analyst 07/05/17 08:21 Seg Neuts % (Manual) 81.0 % (40.0-70.0) H 07/13/17 10:43 Band Neutrophils % 0 % 07/13/17 10:43 Lymphocytes % (Manual) 12.0 % (13.4-35.0) L 07/13/17 10:43 Reactive Lymphs % (Man) 0 % 07/13/17 10:43 Monocytes % (Manual) 3.0 % (0.0-7.3) 07/13/17 10:43 Eosinophils % (Manual) 4.0 % (0.0-4.3) 07/13/17 10:43 Basophils % (Manual) 0 % (0.0-1.8) 07/13/17 10:43 Metamyelocytes % 0 % 07/13/17 10:43 Myelocytes % 0 % 07/13/17 10:43 Promyelocytes % 0 % 07/13/17 10:43 Blast Cells % 0 % 07/13/17 10:43 Nucleated RBC % Not Reportable 07/13/17 10:43 Seg Neutrophils # Statistical Programmer Analyst 07/03/17 05:28 Seg Neutrophils # Man 14.8 K/mm3 (1.8-7.7) H 07/13/17 10:43 Band Neutrophils # 0.0 K/mm3 07/13/17 10:43 Lymphocytes # (Manual) 2.2 K/mm3 (1.2-5.4) 07/13/17 10:43 Abs React Lymphs (Man) 0.0 K/mm3 07/13/17 10:43 Monocytes # (Manual) 0.5 K/mm3 (0.0-0.8) 07/13/17 10:43 Eosinophils # (Manual) 0.7 K/mm3 (0.0-0.4) H 07/13/17 10:43 Basophils # (Manual) 0.0 K/mm3 (0.0-0.1) 07/13/17 10:43 Metamyelocytes # 0.0 K/mm3 07/13/17 10:43 Myelocytes # 0.0 K/mm3 07/13/17 10:43 Promyelocytes # 0.0 K/mm3 07/13/17 10:43 Blast Cells # 0.0 K/mm3 07/13/17 10:43 Pathologist Review 07/04/17 04:39 WBC Morphology Not Reportable 07/13/17 10:43 Hypersegmented Neuts Not Reportable 07/13/17 10:43 Hyposegmented Neuts Not Reportable 07/13/17 10:43 Hypogranular Neuts Not Reportable 07/13/17 10:43 Smudge Cells Not Reportable 07/13/17 10:43 Toxic Granulation Not Reportable 07/13/17 10:43 Toxic Vacuolation Not Reportable 07/13/17 10:43 Dohle Bodies Not Reportable 07/13/17 10:43 Pelger-Huet Anomaly Not Reportable 07/13/17 10:43 Irma Rods Not Reportable 07/13/17 10:43 Platelet Estimate Cons 07/13/17 10:43 Clumped Platelets Not Reportable 07/13/17 10:43 Plt Clumps, EDTA Not Reportable 07/13/17 10:43 Large Platelets Not Reportable 07/13/17 10:43 Giant Platelets Not Reportable 07/13/17 10:43 Platelet Satelliting Not Reportable 07/13/17 10:43 Plt Morphology Comment Not Reportable 07/13/17 10:43 RBC Morphology Not Reportable 07/13/17 10:43 Dimorphic RBCs Not Reportable 07/13/17 10:43 Polychromasia Not Reportable 07/13/17 10:43 Hypochromasia 2+ 07/13/17 10:43 Poikilocytosis 1+ 07/13/17 10:43 Anisocytosis 3+ 07/13/17 10:43 Microcytosis Not Reportable 07/13/17 10:43 Macrocytosis Not Reportable 07/13/17 10:43 Spherocytes Not Reportable 07/13/17 10:43 Pappenheimer Bodies Not Reportable 07/13/17 10:43 Sickle Cells Not Reportable 07/13/17 10:43 Target Cells Not Reportable 07/13/17 10:43 Tear Drop Cells Few 07/13/17 10:43 Ovalocytes 1+ 07/13/17 10:43 Helmet Cells Not Reportable 07/13/17 10:43 Barber-[place] Bodies Not Reportable 07/13/17 10:43 [place] Rings Not Reportable 07/13/17 10:43 [place] Cells Not Reportable 07/13/17 10:43 Bite Cells Not Reportable 07/13/17 10:43 Crenated Cell Not Reportable 07/13/17 10:43 Elliptocytes Not Reportable 07/13/17 10:43 Acanthocytes (Spur) Not Reportable 07/13/17 10:43 Rouleaux Not Reportable 07/13/17 10:43 Hemoglobin C Crystals Not Reportable 07/13/17 10:43 Schistocytes Not Reportable 07/13/17 10:43 Malaria parasites Not Reportable 07/13/17 10:43 Roberto Bodies Not Reportable 07/13/17 10:43 Haptoglobin 204 mg/dL (43-212) 07/03/17 09:31 Hem Pathologist Commnt No 07/13/17 10:43 PT 12.5 Sec. (12.2-14.9) 07/03/17 06:19 INR 0.89 (0.87-1.13) 07/03/17 06:19 APTT 24.6 Sec. (24.2-36.6) 07/03/17 09:31 Fibrinogen 350 mg/dl (211-480) 07/03/17 09:31 Lupus Anticoagulant see below H 07/06/17 17:55 LA PTT Baseline 47 sec (<=40) H 07/06/17 17:55 dRVVT Confirm Interp Negative (Negative) 07/06/17 17:55 dRVVT Screen 50:50 See scanned report 07/06/17 17:55 dRVVT Mix Interpret See scanned report 07/06/17 17:55 POC ABG pH 7.459 (7.35-7.45) H 07/13/17 08:26 POC ABG pCO2 40.4 (35-45) 07/13/17 08:26 POC ABG pO2 99 (80-105) 07/13/17 08:26 POC ABG HCO3 28.6 07/13/17 08:26 POC ABG Total CO2 30 07/13/17 08:26 POC ABG O2 Sat 98 07/13/17 08:26 POC ABG Base Excess 5 07/13/17 08:26 VBG pH 7.372 (7.320-7.420) 07/03/17 06:19 FiO2 30 % 07/13/17 08:26 Sodium 149 mmol/L (137-145) H 07/13/17 06:15 Potassium 3.6 mmol/L (3.6-5.0) 07/13/17 06:15 Chloride 106.5 mmol/L (98-107) 07/13/17 06:15 Carbon Dioxide 28 mmol/L (22-30) 07/13/17 06:15 Anion Gap 18 mmol/L 07/13/17 06:15 BUN 31 mg/dL (7-17) H 07/13/17 06:15 Creatinine 1.3 mg/dL (0.7-1.2) H 07/13/17 06:15 Estimated GFR 54 ml/min 07/13/17 06:15 BUN/Creatinine Ratio 24 % 07/13/17 06:15 Glucose 112 mg/dL (65-100) H 07/13/17 06:15 POC Glucose 141 (70-105) H 07/13/17 12:16 Lactic Acid 0.90 mmol/L (0.7-2.0) 07/06/17 07:28 Calcium 8.9 mg/dL (8.4-10.2) 07/13/17 06:15 Ionized Calcium 5.1 mg/dL (4.8-5.6) 07/07/17 12:21 Phosphorus 5.10 mg/dL (2.5-4.5) H 07/13/17 06:15 Magnesium 1.60 mg/dL (1.7-2.3) L 07/13/17 06:15 Iron 12 ug/dL (37-170) L 07/03/17 09:31 TIBC 534 mcg/dL (250-450) H 07/03/17 09:31 Transferrin 148 mg/dl (192-382) L 07/06/17 07:28 Ferritin 79.1 ng/mL (13.0-400.0) 07/06/17 07:28 Total Bilirubin 0.40 mg/dL (0.1-1.2) 07/03/17 05:28 AST 17 units/L (5-40) 07/03/17 05:28 ALT 10 units/L (7-56) 07/03/17 05:28 Alkaline Phosphatase 74 units/L (35-129) 07/03/17 05:28 C-Reactive Protein 10.30 mg/dL (0.00-1.30) H 07/12/17 17:01 NT-Pro-B Natriuret Pep 114.4 pg/mL (0-450) 07/07/17 12:21 Total Protein 7.5 g/dL (6.3-8.2) 07/03/17 05:28 Albumin 4.5 g/dL (3.9-5) 07/03/17 05:28 Albumin/Globulin Ratio 1.5 % 07/03/17 05:28 Triglycerides 103 mg/dL (2-149) 07/05/17 22:04 Lipase 18 units/L (13-60) 07/03/17 05:28 TSH 0.561 mlU/mL (0.270-4.200) 07/04/17 14:38 HCG, Qual Negative (Negative) 07/03/17 06:19 HCG, Quant < 2 mIU/mL (0-4) 07/05/17 15:50 PTH Intact 285.9 pg/mL (15-65) H 07/06/17 07:28 Urine Color Yellow (Yellow) 07/05/17 Unknown Urine Turbidity Clear (Clear) 07/05/17 Unknown Urine pH 5.0 (5.0-7.0) 07/05/17 Unknown Ur Specific [place] 1.021 (1.003-1.030) 07/05/17 Unknown Urine Protein 100 mg/dl mg/dL (Negative) 07/05/17 Unknown Urine Glucose (UA) 50 mg/dL (Negative) 07/05/17 Unknown Urine Ketones Tr mg/dL (Negative) 07/05/17 Unknown Urine Blood Sm (Negative) 07/05/17 Unknown Urine Nitrite Neg (Negative) 07/05/17 Unknown Urine Bilirubin Neg (Negative) 07/05/17 Unknown Urine Urobilinogen < 2.0 mg/dL (<2.0) 07/05/17 Unknown Ur Leukocyte Esterase Tr (Negative) 07/05/17 Unknown Urine WBC (Auto) < 1.0 /HPF (0.0-6.0) 07/05/17 Unknown Urine RBC (Auto) 10.0 /HPF (0.0-6.0) 07/05/17 Unknown U Epithel Cells (Auto) 9.0 /HPF (0-13.0) 07/05/17 Unknown Urine Bacteria (Auto) 2+ /HPF (Negative) 07/05/17 Unknown Urine Mucus Few /HPF 07/03/17 Unknown Urine Eosinophils None seen (None Seen) 07/05/17 Unknown Urine Creatinine 237.2 mg/dL (0.1-20.0) H 07/05/17 Unknown Urine Microalbumin 39.9 mg/dL (0.1-34.0) H 07/05/17 Unknown Microalb/Creat Ratio 168.2 ug/mg 07/05/17 Unknown Urine Sodium 18 mmol/L 07/05/17 Unknown Urine Total Protein 170 mg/dL (5-11.8) H 07/05/17 Unknown [place] Screen Negative (Negative) 07/06/17 17:55 Proteinase 3 (PR3) Ab <1.0 AI (<1.0) 07/06/17 17:55 Myeloperoxidase Ab <1.0 AI (<1.0) 07/06/17 17:55 Complement C3 77 mg/dL (83-193) L 07/06/17 17:55 Complement C4 16 mg/dL (15-57) 07/06/17 17:55 Hepatitis A IgM Ab Non-reactive (NonReactive) 07/06/17 18:07 Hep Bs Antigen Non-reactive (Negative) 07/06/17 18:07 Hep B Core IgM Ab Non-reactive (NonReactive) 07/06/17 18:07 Hepatitis C Antibody Non-reactive (NonReactive) 07/06/17 18:07 HIV 1&2 Antibody Rapid Non react (Non React) 07/06/17 18:09 HIV P24 Antigen Non react (Non React) 07/06/17 18:09 Blood Type O POSITIVE 07/06/17 10:27 Antibody Screen Negative 07/06/17 10:27 Crossmatch See Detail 07/06/17 10:27
--- NOTE | 2017-07-13 16:16 | Progress Note ---
Assessment and Plan Assessment and plan: Patient is a 42-year-old female with no significant past medical history significant for hypertension which she takes lisinopril 10 mg daily. etoh abuse who pw abdominal pain and diarrhea 1. Severe Sepsis due to gangrenous bowel; sp removal of near complete small intestine; lifelong TPN for nutrition, received abx 2. EMMA secondary to vasomotor nephropathy with underlying ATN; resolving 3. Peritoneal irritation due to infected bowel 4. Severe Anemia, Transfuse as need 5. Ischemic/Gangrenous Bowel 6. Worsening luekocytosis 7. Symptomatic Anemia 8. Hypertensive urgency-resolved 9. Menorraghia secondary to Fibroids 10. Etoh use disorder 11. Right liver lesion ?Hemangioma 12. Multiple electrolyte abnormalities 13. Hypothermia-Resolved 14. Cocain abuse per hx. Not mentioned on admission. Only alcohol which was minimized. 15. 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 Acute respiratory failure on MV >96 hours; continue vent, attempt to wean daily The high probability of a clinically significant, sudden or life threatening deterioration of the [GI, renal] system(s) required my full and direct attention , intervention and personal management. The aggregate critical care time was [35 ] minutes. This time is in addition to time spent performing reported procedures but includes the following: [X] Data Review and interpretation [X] Patient assessment and monitoring of vital signs [X] Documentation [X] Medication orders and management History Interval history: no vomiting, no agiation, no fever, no cough Hospitalist Physical - Physical exam Narrative exam: General appearance: Present: no acute distress - EENT Eyes: Present: PERRL ENT: clear oral mucosa - Neck Neck: Present: supple - Respiratory Respiratory effort: normal Respiratory: bilateral: CTA - Cardiovascular Rhythm: regular Heart Sounds: Present: S1 & S2 - Extremities Extremities: no ischemia Peripheral Pulses: within normal limits - Abdominal General gastrointestinal: soft, other (post surgical changes) - Integumentary Integumentary: Present: clear, warm, dry - Psychiatric Psychiatric: cooperative (intubated, but obeys commands) - Neurologic Neurologic: moves all extremities - Constitutional Vitals: Temp Pulse Resp BP Pulse Ox 98.0 F 114 H 32 H 173/100 100 07/13/17 12:00 07/13/17 15:30 07/13/17 15:30 07/13/17 15:30 07/13/17 15:30 Results - Labs CBC & Chem 7: 07/13/17 10:43 07/17/17 07:00 Labs: Laboratory Last Values WBC 18.3 K/mm3 (4.5-11.0) H 07/13/17 10:43 RBC 3.35 M/mm3 (3.65-5.03) L 07/13/17 10:43 Hgb 7.6 gm/dl (10.1-14.3) L 07/13/17 10:43 Hct 24.4 % (30.3-42.9) L 07/13/17 10:43 MCV 73 fl (79-97) L 07/13/17 10:43 MCH 23 pg (28-32) L 07/13/17 10:43 MCHC 31 % (30-34) 07/13/17 10:43 RDW 35.3 % (13.2-15.2) H 07/13/17 10:43 Plt Count 520 K/mm3 (140-440) H 07/13/17 10:43 Lymph % (Auto) Car Storer 07/03/17 05:28 [place] % (Auto) Car Storer 07/03/17 05:28 Eos % (Auto) Car Storer 07/03/17 05:28 Baso % (Auto) Car Storer 07/03/17 05:28 Lymph # Car Storer 07/03/17 05:28 [place] # Car Storer 07/03/17 05:28 Eos # Car Storer 07/03/17 05:28 Baso # Car Storer 07/03/17 05:28 Add Manual Diff Complete 07/13/17 10:43 Total Counted 100 07/13/17 10:43 Seg Neutrophils % Car Storer 07/05/17 08:21 Seg Neuts % (Manual) 81.0 % (40.0-70.0) H 07/13/17 10:43 Band Neutrophils % 0 % 07/13/17 10:43 Lymphocytes % (Manual) 12.0 % (13.4-35.0) L 07/13/17 10:43 Reactive Lymphs % (Man) 0 % 07/13/17 10:43 Monocytes % (Manual) 3.0 % (0.0-7.3) 07/13/17 10:43 Eosinophils % (Manual) 4.0 % (0.0-4.3) 07/13/17 10:43 Basophils % (Manual) 0 % (0.0-1.8) 07/13/17 10:43 Metamyelocytes % 0 % 07/13/17 10:43 Myelocytes % 0 % 07/13/17 10:43 Promyelocytes % 0 % 07/13/17 10:43 Blast Cells % 0 % 07/13/17 10:43 Nucleated RBC % Not Reportable 07/13/17 10:43 Seg Neutrophils # Car Storer 07/03/17 05:28 Seg Neutrophils # Man 14.8 K/mm3 (1.8-7.7) H 07/13/17 10:43 Band Neutrophils # 0.0 K/mm3 07/13/17 10:43 Lymphocytes # (Manual) 2.2 K/mm3 (1.2-5.4) 07/13/17 10:43 Abs React Lymphs (Man) 0.0 K/mm3 07/13/17 10:43 Monocytes # (Manual) 0.5 K/mm3 (0.0-0.8) 07/13/17 10:43 Eosinophils # (Manual) 0.7 K/mm3 (0.0-0.4) H 07/13/17 10:43 Basophils # (Manual) 0.0 K/mm3 (0.0-0.1) 07/13/17 10:43 Metamyelocytes # 0.0 K/mm3 07/13/17 10:43 Myelocytes # 0.0 K/mm3 07/13/17 10:43 Promyelocytes # 0.0 K/mm3 07/13/17 10:43 Blast Cells # 0.0 K/mm3 07/13/17 10:43 Pathologist Review 07/04/17 04:39 WBC Morphology Not Reportable 07/13/17 10:43 Hypersegmented Neuts Not Reportable 07/13/17 10:43 Hyposegmented Neuts Not Reportable 07/13/17 10:43 Hypogranular Neuts Not Reportable 07/13/17 10:43 Smudge Cells Not Reportable 07/13/17 10:43 Toxic Granulation Not Reportable 07/13/17 10:43 Toxic Vacuolation Not Reportable 07/13/17 10:43 Dohle Bodies Not Reportable 07/13/17 10:43 Pelger-Huet Anomaly Not Reportable 07/13/17 10:43 Irma Rods Not Reportable 07/13/17 10:43 Platelet Estimate Cons 07/13/17 10:43 Clumped Platelets Not Reportable 07/13/17 10:43 Plt Clumps, EDTA Not Reportable 07/13/17 10:43 Large Platelets Not Reportable 07/13/17 10:43 Giant Platelets Not Reportable 07/13/17 10:43 Platelet Satelliting Not Reportable 07/13/17 10:43 Plt Morphology Comment Not Reportable 07/13/17 10:43 RBC Morphology Not Reportable 07/13/17 10:43 Dimorphic RBCs Not Reportable 07/13/17 10:43 Polychromasia Not Reportable 07/13/17 10:43 Hypochromasia 2+ 07/13/17 10:43 Poikilocytosis 1+ 07/13/17 10:43 Anisocytosis 3+ 07/13/17 10:43 Microcytosis Not Reportable 07/13/17 10:43 Macrocytosis Not Reportable 07/13/17 10:43 Spherocytes Not Reportable 07/13/17 10:43 Pappenheimer Bodies Not Reportable 07/13/17 10:43 Sickle Cells Not Reportable 07/13/17 10:43 Target Cells Not Reportable 07/13/17 10:43 Tear Drop Cells Few 07/13/17 10:43 Ovalocytes 1+ 07/13/17 10:43 Helmet Cells Not Reportable 07/13/17 10:43 [place] Bodies Not Reportable 07/13/17 10:43 [place] Rings Not Reportable 07/13/17 10:43 [place] Cells Not Reportable 07/13/17 10:43 Bite Cells Not Reportable 07/13/17 10:43 Crenated Cell Not Reportable 07/13/17 10:43 Elliptocytes Not Reportable 07/13/17 10:43 Acanthocytes (Spur) Not Reportable 07/13/17 10:43 Rouleaux Not Reportable 07/13/17 10:43 Hemoglobin C Crystals Not Reportable 07/13/17 10:43 Schistocytes Not Reportable 07/13/17 10:43 Malaria parasites Not Reportable 07/13/17 10:43 Roberto Bodies Not Reportable 07/13/17 10:43 Haptoglobin 204 mg/dL (43-212) 07/03/17 09:31 Hem Pathologist Commnt No 07/13/17 10:43 PT 12.5 Sec. (12.2-14.9) 07/03/17 06:19 INR 0.89 (0.87-1.13) 07/03/17 06:19 APTT 24.6 Sec. (24.2-36.6) 07/03/17 09:31 Fibrinogen 350 mg/dl (211-480) 07/03/17 09:31 Lupus Anticoagulant see below H 07/06/17 17:55 LA PTT Baseline 47 sec (<=40) H 07/06/17 17:55 dRVVT Confirm Interp Negative (Negative) 07/06/17 17:55 dRVVT Screen 50:50 See scanned report 07/06/17 17:55 dRVVT Mix Interpret See scanned report 07/06/17 17:55 POC ABG pH 7.459 (7.35-7.45) H 07/13/17 08:26 POC ABG pCO2 40.4 (35-45) 07/13/17 08:26 POC ABG pO2 99 (80-105) 07/13/17 08:26 POC ABG HCO3 28.6 07/13/17 08:26 POC ABG Total CO2 30 07/13/17 08:26 POC ABG O2 Sat 98 07/13/17 08:26 POC ABG Base Excess 5 07/13/17 08:26 VBG pH 7.372 (7.320-7.420) 07/03/17 06:19 FiO2 30 % 07/13/17 08:26 Sodium 149 mmol/L (137-145) H 07/13/17 06:15 Potassium 3.6 mmol/L (3.6-5.0) 07/13/17 06:15 Chloride 106.5 mmol/L (98-107) 07/13/17 06:15 Carbon Dioxide 28 mmol/L (22-30) 07/13/17 06:15 Anion Gap 18 mmol/L 07/13/17 06:15 BUN 31 mg/dL (7-17) H 07/13/17 06:15 Creatinine 1.3 mg/dL (0.7-1.2) H 07/13/17 06:15 Estimated GFR 54 ml/min 07/13/17 06:15 BUN/Creatinine Ratio 24 % 07/13/17 06:15 Glucose 112 mg/dL (65-100) H 07/13/17 06:15 POC Glucose 141 (70-105) H 07/13/17 12:16 Lactic Acid 0.90 mmol/L (0.7-2.0) 07/06/17 07:28 Calcium 8.9 mg/dL (8.4-10.2) 07/13/17 06:15 Ionized Calcium 5.1 mg/dL (4.8-5.6) 07/07/17 12:21 Phosphorus 5.10 mg/dL (2.5-4.5) H 07/13/17 06:15 Magnesium 1.60 mg/dL (1.7-2.3) L 07/13/17 06:15 Iron 12 ug/dL (37-170) L 07/03/17 09:31 TIBC 534 mcg/dL (250-450) H 07/03/17 09:31 Transferrin 148 mg/dl (192-382) L 07/06/17 07:28 Ferritin 79.1 ng/mL (13.0-400.0) 07/06/17 07:28 Total Bilirubin 0.40 mg/dL (0.1-1.2) 07/03/17 05:28 AST 17 units/L (5-40) 07/03/17 05:28 ALT 10 units/L (7-56) 07/03/17 05:28 Alkaline Phosphatase 74 units/L (35-129) 07/03/17 05:28 C-Reactive Protein 10.30 mg/dL (0.00-1.30) H 07/12/17 17:01 NT-Pro-B Natriuret Pep 114.4 pg/mL (0-450) 07/07/17 12:21 Total Protein 7.5 g/dL (6.3-8.2) 07/03/17 05:28 Albumin 4.5 g/dL (3.9-5) 07/03/17 05:28 Albumin/Globulin Ratio 1.5 % 07/03/17 05:28 Triglycerides 103 mg/dL (2-149) 07/05/17 22:04 Lipase 18 units/L (13-60) 07/03/17 05:28 TSH 0.561 mlU/mL (0.270-4.200) 07/04/17 14:38 HCG, Qual Negative (Negative) 07/03/17 06:19 HCG, Quant < 2 mIU/mL (0-4) 07/05/17 15:50 PTH Intact 285.9 pg/mL (15-65) H 07/06/17 07:28 Urine Color Yellow (Yellow) 07/05/17 Unknown Urine Turbidity Clear (Clear) 07/05/17 Unknown Urine pH 5.0 (5.0-7.0) 07/05/17 Unknown Ur Specific [place] 1.021 (1.003-1.030) 07/05/17 Unknown Urine Protein 100 mg/dl mg/dL (Negative) 07/05/17 Unknown Urine Glucose (UA) 50 mg/dL (Negative) 07/05/17 Unknown Urine Ketones Tr mg/dL (Negative) 07/05/17 Unknown Urine Blood Sm (Negative) 07/05/17 Unknown Urine Nitrite Neg (Negative) 07/05/17 Unknown Urine Bilirubin Neg (Negative) 07/05/17 Unknown Urine Urobilinogen < 2.0 mg/dL (<2.0) 07/05/17 Unknown Ur Leukocyte Esterase Tr (Negative) 07/05/17 Unknown Urine WBC (Auto) < 1.0 /HPF (0.0-6.0) 07/05/17 Unknown Urine RBC (Auto) 10.0 /HPF (0.0-6.0) 07/05/17 Unknown U Epithel Cells (Auto) 9.0 /HPF (0-13.0) 07/05/17 Unknown Urine Bacteria (Auto) 2+ /HPF (Negative) 07/05/17 Unknown Urine Mucus Few /HPF 07/03/17 Unknown Urine Eosinophils None seen (None Seen) 07/05/17 Unknown Urine Creatinine 237.2 mg/dL (0.1-20.0) H 07/05/17 Unknown Urine Microalbumin 39.9 mg/dL (0.1-34.0) H 07/05/17 Unknown Microalb/Creat Ratio 168.2 ug/mg 07/05/17 Unknown Urine Sodium 18 mmol/L 07/05/17 Unknown Urine Total Protein 170 mg/dL (5-11.8) H 07/05/17 Unknown [place] Screen Negative (Negative) 07/06/17 17:55 Proteinase 3 (PR3) Ab <1.0 AI (<1.0) 07/06/17 17:55 Myeloperoxidase Ab <1.0 AI (<1.0) 07/06/17 17:55 Complement C3 77 mg/dL (83-193) L 07/06/17 17:55 Complement C4 16 mg/dL (15-57) 07/06/17 17:55 Hepatitis A IgM Ab Non-reactive (NonReactive) 07/06/17 18:07 Hep Bs Antigen Non-reactive (Negative) 07/06/17 18:07 Hep B Core IgM Ab Non-reactive (NonReactive) 07/06/17 18:07 Hepatitis C Antibody Non-reactive (NonReactive) 07/06/17 18:07 HIV 1&2 Antibody Rapid Non react (Non React) 07/06/17 18:09 HIV P24 Antigen Non react (Non React) 07/06/17 18:09 Blood Type O POSITIVE 07/06/17 10:27 Antibody Screen Negative 07/06/17 10:27 Crossmatch See Detail 07/06/17 10:27
[2017-07-13] MEDS ORDERED: NORMODYNE IV ONE (16:50)
[2017-07-13] MEDS ORDERED: TPN ADULT 2,400 ML IV SCH (20:00)
[2017-07-13] MEDS: ATIVAN IV PRN (20:06)
--- NOTE | 2017-07-13 22:07 | XRay Report ---
FINAL REPORT PROCEDURE: XR ABDOMEN 1V AP TECHNIQUE: AP supine portable radiograph of the abdomen was obtained at 07/13/2017 21:25 (EST) . HISTORY: NG tube placement COMPARISON: No prior studies are available for comparison. FINDINGS: Bowel gas pattern: Nonobstructive. Masses or calcifications: None. Bony structures: Normal. Other: In nasogastric tube is identified terminating in the distal stomach. IMPRESSION: Nasogastric tube is terminating in the distal stomach
[2017-07-14] MEDS: HEPARIN SUB-Q SCH ×3 (00:03→21:24)
[2017-07-14] MEDS: SUBLIMAZE IV PRN ×4 (00:44→22:59)
[2017-07-14] MEDS: APRESOLINE IV PRN ×2 (01:11→08:37)
[2017-07-14] MEDS: ATIVAN IV PRN ×3 (01:32→20:29)
[2017-07-14] MEDS: ZOSYN/NS 2.25 GM/50ML 2.25 GM/50 ML BAG IV SCH (04:40)
[2017-07-14] MEDS: LOPRESSOR IV PRN ×3 (06:02→15:13)
[2017-07-14 10:14] LABS: Alanine Aminotransferase 29 units/L (7-56); Albumin 2.6 g/dL (3.9-5); BUN/Creatinine Ratio 23; Blood Urea Nitrogen 21 mg/dL (7-17); Calcium 8.5 mg/dL (8.4-10.2); Hemolysis Index 2
--- NOTE | 2017-07-14 10:54 | Progress Note ---
Assessment and Plan Assessment and plan: Patient is a 42-year-old female with no significant past medical history significant for hypertension which she takes lisinopril 10 mg daily. etoh abuse who pw abdominal pain and diarrhea 1. Severe Sepsis due to gangrenous bowel; sp removal of near complete small intestine; lifelong TPN for nutrition, completed abx per ID 2. EMMA secondary to vasomotor nephropathy with underlying ATN; resolved 3. Peritoneal irritation due to infected bowel 4. Severe Anemia, Transfuse as need 5. Ischemic/Gangrenous Bowel 6. Worsening luekocytosis 7. Symptomatic Anemia 8. Hypertensive urgency-resolved 9. Menorraghia secondary to Fibroids 10. Etoh use disorder 11. Right liver lesion ?Hemangioma 12. Multiple electrolyte abnormalities 13. Hypothermia-Resolved 14. Cocain abuse per hx. Not mentioned on admission. Only alcohol which was minimized. 15. 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 Acute respiratory failure on MV >96 hours; extubated 07/13, improving The high probability of a clinically significant, sudden or life threatening deterioration of the [GI, renal] system(s) required my full and direct attention , intervention and personal management. The aggregate critical care time was [35 ] minutes. This time is in addition to time spent performing reported procedures but includes the following: [X] Data Review and interpretation [X] Patient assessment and monitoring of vital signs [X] Documentation [X] Medication orders and management History Interval history: was extubated no vomiting, no agiation, no fever, no cough Hospitalist Physical - Physical exam Narrative exam: General appearance: Present: no acute distress - EENT Eyes: Present: PERRL ENT: clear oral mucosa - Neck Neck: Present: supple - Respiratory Respiratory effort: normal Respiratory: bilateral: CTA - Cardiovascular Rhythm: regular Heart Sounds: Present: S1 & S2 - Extremities Extremities: no ischemia Peripheral Pulses: within normal limits - Abdominal General gastrointestinal: soft, other (post surgical changes) - Integumentary Integumentary: Present: clear, warm, dry - Psychiatric Psychiatric: cooperative - Neurologic Neurologic: moves all extremities - Constitutional Vitals: Temp Pulse Resp BP Pulse Ox 99.1 F 112 H 29 H 167/96 99 07/14/17 08:00 07/14/17 10:00 07/14/17 10:00 07/14/17 10:07/14/17 10:00 Results - Labs CBC & Chem 7: 07/13/17 10:43 07/17/17 07:00 Labs: Laboratory Last Values WBC 18.3 K/mm3 (4.5-11.0) H 07/13/17 10:43 RBC 3.35 M/mm3 (3.65-5.03) L 07/13/17 10:43 Hgb 7.6 gm/dl (10.1-14.3) L 07/13/17 10:43 Hct 24.4 % (30.3-42.9) L 07/13/17 10:43 MCV 73 fl (79-97) L 07/13/17 10:43 MCH 23 pg (28-32) L 07/13/17 10:43 MCHC 31 % (30-34) 07/13/17 10:43 RDW 35.3 % (13.2-15.2) H 07/13/17 10:43 Plt Count 520 K/mm3 (140-440) H 07/13/17 10:43 Lymph % (Auto) Internship Coordinator 07/03/17 05:28 Piute % (Auto) Internship Coordinator 07/03/17 05:28 Eos % (Auto) Internship Coordinator 07/03/17 05:28 Baso % (Auto) Internship Coordinator 07/03/17 05:28 Lymph # Internship Coordinator 07/03/17 05:28 Piute # Internship Coordinator 07/03/17 05:28 Eos # Internship Coordinator 07/03/17 05:28 Baso # Internship Coordinator 07/03/17 05:28 Add Manual Diff Complete 07/13/17 10:43 Total Counted 100 07/13/17 10:43 Seg Neutrophils % Internship Coordinator 07/05/17 08:21 Seg Neuts % (Manual) 81.0 % (40.0-70.0) H 07/13/17 10:43 Band Neutrophils % 0 % 07/13/17 10:43 Lymphocytes % (Manual) 12.0 % (13.4-35.0) L 07/13/17 10:43 Reactive Lymphs % (Man) 0 % 07/13/17 10:43 Monocytes % (Manual) 3.0 % (0.0-7.3) 07/13/17 10:43 Eosinophils % (Manual) 4.0 % (0.0-4.3) 07/13/17 10:43 Basophils % (Manual) 0 % (0.0-1.8) 07/13/17 10:43 Metamyelocytes % 0 % 07/13/17 10:43 Myelocytes % 0 % 07/13/17 10:43 Promyelocytes % 0 % 07/13/17 10:43 Blast Cells % 0 % 07/13/17 10:43 Nucleated RBC % Not Reportable 07/13/17 10:43 Seg Neutrophils # Internship Coordinator 07/03/17 05:28 Seg Neutrophils # Man 14.8 K/mm3 (1.8-7.7) H 07/13/17 10:43 Band Neutrophils # 0.0 K/mm3 07/13/17 10:43 Lymphocytes # (Manual) 2.2 K/mm3 (1.2-5.4) 07/13/17 10:43 Abs React Lymphs (Man) 0.0 K/mm3 07/13/17 10:43 Monocytes # (Manual) 0.5 K/mm3 (0.0-0.8) 07/13/17 10:43 Eosinophils # (Manual) 0.7 K/mm3 (0.0-0.4) H 07/13/17 10:43 Basophils # (Manual) 0.0 K/mm3 (0.0-0.1) 07/13/17 10:43 Metamyelocytes # 0.0 K/mm3 07/13/17 10:43 Myelocytes # 0.0 K/mm3 07/13/17 10:43 Promyelocytes # 0.0 K/mm3 07/13/17 10:43 Blast Cells # 0.0 K/mm3 07/13/17 10:43 Pathologist Review 07/04/17 04:39 WBC Morphology Not Reportable 07/13/17 10:43 Hypersegmented Neuts Not Reportable 07/13/17 10:43 Hyposegmented Neuts Not Reportable 07/13/17 10:43 Hypogranular Neuts Not Reportable 07/13/17 10:43 Smudge Cells Not Reportable 07/13/17 10:43 Toxic Granulation Not Reportable 07/13/17 10:43 Toxic Vacuolation Not Reportable 07/13/17 10:43 Dohle Bodies Not Reportable 07/13/17 10:43 Pelger-Huet Anomaly Not Reportable 07/13/17 10:43 Irma Rods Not Reportable 07/13/17 10:43 Platelet Estimate Cons 07/13/17 10:43 Clumped Platelets Not Reportable 07/13/17 10:43 Plt Clumps, EDTA Not Reportable 07/13/17 10:43 Large Platelets Not Reportable 07/13/17 10:43 Giant Platelets Not Reportable 07/13/17 10:43 Platelet Satelliting Not Reportable 07/13/17 10:43 Plt Morphology Comment Not Reportable 07/13/17 10:43 RBC Morphology Not Reportable 07/13/17 10:43 Dimorphic RBCs Not Reportable 07/13/17 10:43 Polychromasia Not Reportable 07/13/17 10:43 Hypochromasia 2+ 07/13/17 10:43 Poikilocytosis 1+ 07/13/17 10:43 Anisocytosis 3+ 07/13/17 10:43 Microcytosis Not Reportable 07/13/17 10:43 Macrocytosis Not Reportable 07/13/17 10:43 Spherocytes Not Reportable 07/13/17 10:43 Pappenheimer Bodies Not Reportable 07/13/17 10:43 Sickle Cells Not Reportable 07/13/17 10:43 Target Cells Not Reportable 07/13/17 10:43 Tear Drop Cells Few 07/13/17 10:43 Ovalocytes 1+ 07/13/17 10:43 Helmet Cells Not Reportable 07/13/17 10:43 Barber-Goodrich Bodies Not Reportable 07/13/17 10:43 Gunter Rings Not Reportable 07/13/17 10:43 Greenfield Cells Not Reportable 07/13/17 10:43 Bite Cells Not Reportable 07/13/17 10:43 Crenated Cell Not Reportable 07/13/17 10:43 Elliptocytes Not Reportable 07/13/17 10:43 Acanthocytes (Spur) Not Reportable 07/13/17 10:43 Rouleaux Not Reportable 07/13/17 10:43 Hemoglobin C Crystals Not Reportable 07/13/17 10:43 Schistocytes Not Reportable 07/13/17 10:43 Malaria parasites Not Reportable 07/13/17 10:43 Roberto Bodies Not Reportable 07/13/17 10:43 Haptoglobin 204 mg/dL (43-212) 07/03/17 09:31 Hem Pathologist Commnt No 07/13/17 10:43 PT 12.5 Sec. (12.2-14.9) 07/03/17 06:19 INR 0.89 (0.87-1.13) 07/03/17 06:19 APTT 24.6 Sec. (24.2-36.6) 07/03/17 09:31 Fibrinogen 350 mg/dl (211-480) 07/03/17 09:31 Lupus Anticoagulant see below H 07/06/17 17:55 LA PTT Baseline 47 sec (<=40) H 07/06/17 17:55 dRVVT Confirm Interp Negative (Negative) 07/06/17 17:55 dRVVT Screen 50:50 See scanned report 07/06/17 17:55 dRVVT Mix Interpret See scanned report 07/06/17 17:55 POC ABG pH 7.459 (7.35-7.45) H 07/13/17 08:26 POC ABG pCO2 40.4 (35-45) 07/13/17 08:26 POC ABG pO2 99 (80-105) 07/13/17 08:26 POC ABG HCO3 28.6 07/13/17 08:26 POC ABG Total CO2 30 07/13/17 08:26 POC ABG O2 Sat 98 07/13/17 08:26 POC ABG Base Excess 5 07/13/17 08:26 VBG pH 7.372 (7.320-7.420) 07/03/17 06:19 FiO2 30 % 07/13/17 08:26 Sodium 139 mmol/L (137-145) D 07/14/17 09:35 Potassium 3.5 mmol/L (3.6-5.0) L 07/14/17 09:35 Chloride 100.0 mmol/L (98-107) 07/14/17 09:35 Carbon Dioxide 26 mmol/L (22-30) 07/14/17 09:35 Anion Gap 17 mmol/L 07/14/17 09:35 BUN 21 mg/dL (7-17) H 07/14/17 09:35 Creatinine 0.9 mg/dL (0.7-1.2) 07/14/17 09:35 Estimated GFR > 60 ml/min 07/14/17 09:35 BUN/Creatinine Ratio 23 % 07/14/17 09:35 Glucose 139 mg/dL (65-100) H 07/14/17 09:35 POC Glucose 138 (70-105) H 07/14/17 06:11 Lactic Acid 0.90 mmol/L (0.7-2.0) 07/06/17 07:28 Calcium 8.5 mg/dL (8.4-10.2) 07/14/17 09:35 Ionized Calcium 5.1 mg/dL (4.8-5.6) 07/07/17 12:21 Phosphorus 4.00 mg/dL (2.5-4.5) D 07/14/17 09:35 Magnesium 1.40 mg/dL (1.7-2.3) L 07/14/17 09:35 Iron 12 ug/dL (37-170) L 07/03/17 09:31 TIBC 534 mcg/dL (250-450) H 07/03/17 09:31 Transferrin 148 mg/dl (192-382) L 07/06/17 07:28 Ferritin 79.1 ng/mL (13.0-400.0) 07/06/17 07:28 Total Bilirubin 0.50 mg/dL (0.1-1.2) 07/14/17 09:35 AST 42 units/L (5-40) H 07/14/17 09:35 ALT 29 units/L (7-56) 07/14/17 09:35 Alkaline Phosphatase 105 units/L (35-129) 07/14/17 09:35 C-Reactive Protein 10.30 mg/dL (0.00-1.30) H 07/12/17 17:01 NT-Pro-B Natriuret Pep 114.4 pg/mL (0-450) 07/07/17 12:21 Total Protein 6.1 g/dL (6.3-8.2) L 07/14/17 09:35 Albumin 2.6 g/dL (3.9-5) L 07/14/17 09:35 Albumin/Globulin Ratio 0.7 % 07/14/17 09:35 Triglycerides 103 mg/dL (2-149) 07/05/17 22:04 Lipase 18 units/L (13-60) 07/03/17 05:28 TSH 0.561 mlU/mL (0.270-4.200) 07/04/17 14:38 HCG, Qual Negative (Negative) 07/03/17 06:19 HCG, Quant < 2 mIU/mL (0-4) 07/05/17 15:50 PTH Intact 285.9 pg/mL (15-65) H 07/06/17 07:28 Urine Color Yellow (Yellow) 07/05/17 Unknown Urine Turbidity Clear (Clear) 07/05/17 Unknown Urine pH 5.0 (5.0-7.0) 07/05/17 Unknown Ur Specific [place] 1.021 (1.003-1.030) 07/05/17 Unknown Urine Protein 100 mg/dl mg/dL (Negative) 07/05/17 Unknown Urine Glucose (UA) 50 mg/dL (Negative) 07/05/17 Unknown Urine Ketones Tr mg/dL (Negative) 07/05/17 Unknown Urine Blood Sm (Negative) 07/05/17 Unknown Urine Nitrite Neg (Negative) 07/05/17 Unknown Urine Bilirubin Neg (Negative) 07/05/17 Unknown Urine Urobilinogen < 2.0 mg/dL (<2.0) 07/05/17 Unknown Ur Leukocyte Esterase Tr (Negative) 07/05/17 Unknown Urine WBC (Auto) < 1.0 /HPF (0.0-6.0) 07/05/17 Unknown Urine RBC (Auto) 10.0 /HPF (0.0-6.0) 07/05/17 Unknown U Epithel Cells (Auto) 9.0 /HPF (0-13.0) 07/05/17 Unknown Urine Bacteria (Auto) 2+ /HPF (Negative) 07/05/17 Unknown Urine Mucus Few /HPF 07/03/17 Unknown Urine Eosinophils None seen (None Seen) 07/05/17 Unknown Urine Creatinine 237.2 mg/dL (0.1-20.0) H 07/05/17 Unknown Urine Microalbumin 39.9 mg/dL (0.1-34.0) H 07/05/17 Unknown Microalb/Creat Ratio 168.2 ug/mg 07/05/17 Unknown Urine Sodium 18 mmol/L 07/05/17 Unknown Urine Total Protein 170 mg/dL (5-11.8) H 07/05/17 Unknown [place] Screen Negative (Negative) 07/06/17 17:55 Proteinase 3 (PR3) Ab <1.0 AI (<1.0) 07/06/17 17:55 Myeloperoxidase Ab <1.0 AI (<1.0) 07/06/17 17:55 Complement C3 77 mg/dL (83-193) L 07/06/17 17:55 Complement C4 16 mg/dL (15-57) 07/06/17 17:55 Hepatitis A IgM Ab Non-reactive (NonReactive) 07/06/17 18:07 Hep Bs Antigen Non-reactive (Negative) 07/06/17 18:07 Hep B Core IgM Ab Non-reactive (NonReactive) 07/06/17 18:07 Hepatitis C Antibody Non-reactive (NonReactive) 07/06/17 18:07 HIV 1&2 Antibody Rapid Non react (Non React) 07/06/17 18:09 HIV P24 Antigen Non react (Non React) 07/06/17 18:09 Blood Type O POSITIVE 07/06/17 10:27 Antibody Screen Negative 07/06/17 10:27 Crossmatch See Detail 07/06/17 10:27
--- NOTE | 2017-07-14 10:57 | Progress Note ---
Assessment and Plan Postoperative respiratory failure, now on mechanical ventilatory support Sepsis syndrome. Ischemic bowel, possibly secondary to embolic event vs related to drug abuse H/O Cocaine use with possibility of arterial spasm. Acute kidney injury. Leukocytosis. Uncontrolled hypertension. Severe anemia. Drug abuse. Alcohol abuse -VAP bundle addressed - daily SATs and SBT's -tolerating PSV at this time, RSBI 68, NIF-35 ABG PS10/5 7.45/40.4/99/28/98% - continue anti-infectives per ID recs - initiate trophic tubes - continue TPN per surgery - continue GI & VTE prophylaxis -Liberate from mechanical ventilatory support PT/OT to evaluate and treat Subjective Date of service: 07/14/17 Principal diagnosis: Post-Op Resp Failure on MVS; Ischemic Bowel s/p Ex-Lap; EMMA Interval history: Follow up: Sepsis, severe anemia, malignant hypertension, abdominal pain Seen and examined at bedside; 24hour events reviewed with nursing staff Blood pressure controlled Tolerating PSV 10/5, awake and alert OK to initiate trickle feeds at 10cc/hour Agitation overnight, pulling at her tubes On empiric antibiotics per ID-levofloxacin/metronidazole Objective Vital Signs - 12hr 07/13/17 07/13/17 07/13/17 23:00 23:29 23:30 Temperature Pulse Rate 110 H 117 H 116 H Pulse Rate [ From Monitor] Respiratory 33 H 29 H 37 H Rate Blood Pressure 192/103 192/97 207/103 O2 Sat by Pulse 97 97 97 Oximetry 07/13/17 07/13/17 07/14/17 23:31 23:33 00:00 Temperature 99.5 F Pulse Rate 120 H 112 H Pulse Rate [ From Monitor] Respiratory 24 38 H Rate Blood Pressure 207/103 207/103 O2 Sat by Pulse 96 97 Oximetry 07/14/17 07/14/17 07/14/17 00:25 00:30 00:44 Temperature Pulse Rate 107 H Pulse Rate [ 112 H From Monitor] Respiratory 23 26 H Rate Blood Pressure 195/109 O2 Sat by Pulse 97 97 Oximetry 07/14/17 07/14/17 07/14/17 01:00 01:11 01:30 Temperature Pulse Rate 100 H 103 H 112 H Pulse Rate [ From Monitor] Respiratory 34 H 30 H Rate Blood Pressure 198/100 198/100 197/92 O2 Sat by Pulse 97 95 Oximetry 07/14/17 07/14/17 07/14/17 02:00 02:30 03:00 Temperature Pulse Rate 106 H 110 H 110 H Pulse Rate [ From Monitor] Respiratory 29 H 30 H 30 H Rate Blood Pressure 178/87 178/88 183/90 O2 Sat by Pulse 97 98 97 Oximetry 07/14/17 07/14/17 07/14/17 03:30 03:46 04:00 Temperature 98.9 F Pulse Rate 117 H 106 H Pulse Rate [ From Monitor] Respiratory 24 29 H Rate Blood Pressure 189/109 150/77 O2 Sat by Pulse 98 97 Oximetry 07/14/17 07/14/17 07/14/17 04:30 05:00 06:00 Temperature Pulse Rate 108 H 117 H 102 H Pulse Rate [ From Monitor] Respiratory 29 H 31 H 25 H Rate Blood Pressure 137/68 189/102 164/91 O2 Sat by Pulse 97 99 Oximetry 07/14/17 07/14/17 07/14/17 06:02 07:00 07:28 Temperature Pulse Rate 121 H 108 H Pulse Rate [ From Monitor] Respiratory 31 H Rate Blood Pressure 199/106 184/102 O2 Sat by Pulse 99 99 Oximetry 07/14/17 07/14/17 07/14/17 08:00 09:00 10:00 Temperature 99.1 F Pulse Rate 109 H 112 H Pulse Rate [ 113 H From Monitor] Respiratory 29 H 29 H Rate Blood Pressure 194/104 195/87 167/96 O2 Sat by Pulse 98 99 Oximetry Constitutional: no acute distress, other (orally intubated to mechanical ventilatory support) Eyes: non-icteric ENT: oropharynx moist, other (ETT 23 cm IVA) Neck: supple, no lymphadenopathy, no JVD, other (no thyromegaly) Effort: mildly labored Ascultation: Bilateral: diminished breath sounds (bases), rhonchi Percussion: Bilateral: not dull Cardiovascular: regular rate and rhythm, other (No R/M) Gastrointestinal: hypoactive bowel sounds, non-distended, other (no palpable HSM ; clean dry wound site with marilyn) Integumentary: normal Extremities: no cyanosis, no edema, pulses normal, no ischemia or petechiae Neurologic: normal mental status, non-focal exam, pupils equal and round, CN II- XII normal, motor strength normal and Psychiatric: mood appropriate, affect normal, anxious CBC and BMP: 07/13/17 10:43 07/16/17 07:07 ABG, PT/INR, D-dimer: ABG POC ABG pH 7.459 (7.35-7.45) H 07/13/17 08:26 POC ABG pCO2 40.4 (35-45) 07/13/17 08:26 POC ABG pO2 99 (80-105) 07/13/17 08:26 POC ABG HCO3 28.6 07/13/17 08:26 POC ABG Total CO2 30 07/13/17 08:26 POC ABG O2 Sat 98 07/13/17 08:26 PT/INR, D-dimer PT 12.5 Sec. (12.2-14.9) 07/03/17 06:19 INR 0.89 (0.87-1.13) 07/03/17 06:19 Abnormal lab findings: Abnormal Labs 07/03/17 07/03/17 07/03/17 05:11 05:28 05:28 WBC 12.9 H RBC Hgb 5.6 L* Hct 22.3 L MCV 59 L MCH 15 L MCHC 25 L RDW 33.3 H Plt Count 125 L Seg Neuts % (Manual) 75.0 H Lymphocytes % (Manual) Seg Neutrophils # Man 9.7 H Lymphocytes # (Manual) Monocytes # (Manual) Eosinophils # (Manual) Lupus Anticoagulant LA PTT Baseline POC ABG pH POC ABG pCO2 POC ABG pO2 Sodium Potassium 3.0 L Chloride Carbon Dioxide BUN Creatinine 0.6 L Glucose 220 H POC Glucose 188 H Lactic Acid Calcium Phosphorus Magnesium Iron TIBC Transferrin AST C-Reactive Protein Total Protein Albumin PTH Intact Urine WBC (Auto) Urine Creatinine Urine Microalbumin Urine Total Protein Complement C3 Crossmatch 07/03/17 07/03/17 07/03/17 06:19 06:35 08:42 WBC RBC Hgb Hct MCV MCH MCHC RDW Plt Count Seg Neuts % (Manual) Lymphocytes % (Manual) Seg Neutrophils # Man Lymphocytes # (Manual) Monocytes # (Manual) Eosinophils # (Manual) Lupus Anticoagulant LA PTT Baseline POC ABG pH POC ABG pCO2 POC ABG pO2 Sodium Potassium Chloride Carbon Dioxide BUN Creatinine Glucose POC Glucose Lactic Acid 2.50 H* 2.20 H* Calcium Phosphorus Magnesium Iron TIBC Transferrin AST C-Reactive Protein Total Protein Albumin PTH Intact Urine WBC (Auto) Urine Creatinine Urine Microalbumin Urine Total Protein Complement C3 Crossmatch See Detail 07/03/17 07/03/17 07/03/17 09:31 09:31 11:50 WBC RBC Hgb 5.7 L* Hct 22.4 L MCV MCH MCHC RDW Plt Count Seg Neuts % (Manual) Lymphocytes % (Manual) Seg Neutrophils # Man Lymphocytes # (Manual) Monocytes # (Manual) Eosinophils # (Manual) Lupus Anticoagulant LA PTT Baseline POC ABG pH POC ABG pCO2 POC ABG pO2 Sodium Potassium Chloride Carbon Dioxide BUN Creatinine Glucose POC Glucose Lactic Acid 2.80 H* Calcium Phosphorus Magnesium Iron 12 L TIBC 534 H Transferrin AST C-Reactive Protein Total Protein Albumin PTH Intact Urine WBC (Auto) Urine Creatinine Urine Microalbumin Urine Total Protein Complement C3 Crossmatch 07/03/17 07/03/17 07/03/17 16:50 16:50 Unknown WBC RBC Hgb 9.7 L D Hct MCV MCH MCHC RDW Plt Count Seg Neuts % (Manual) Lymphocytes % (Manual) Seg Neutrophils # Man Lymphocytes # (Manual) Monocytes # (Manual) Eosinophils # (Manual) Lupus Anticoagulant LA PTT Baseline POC ABG pH POC ABG pCO2 POC ABG pO2 Sodium Potassium Chloride Carbon Dioxide BUN Creatinine Glucose POC Glucose Lactic Acid 2.30 H* Calcium Phosphorus Magnesium Iron TIBC Transferrin AST C-Reactive Protein Total Protein Albumin PTH Intact Urine WBC (Auto) 18.0 H Urine Creatinine Urine Microalbumin Urine Total Protein Complement C3 Crossmatch 07/04/17 07/04/17 07/04/17 03:57 03:57 04:39 WBC 42.4 H* 42.8 H* RBC Hgb 9.1 L 9.3 L Hct MCV 65 L 66 L MCH 19 L 20 L MCHC 29 L RDW 37.3 H 37.3 H Plt Count 120 L Seg Neuts % (Manual) 93.5 H Lymphocytes % (Manual) 2.5 L Seg Neutrophils # Man 40.0 H Lymphocytes # (Manual) 1.1 L Monocytes # (Manual) 1.1 H Eosinophils # (Manual) Lupus Anticoagulant LA PTT Baseline POC ABG pH POC ABG pCO2 POC ABG pO2 Sodium 134 L Potassium 3.5 L Chloride 95.4 L Carbon Dioxide 21 L BUN 6 L Creatinine 0.5 L Glucose 147 H POC Glucose Lactic Acid Calcium 7.9 L Phosphorus Magnesium Iron TIBC Transferrin AST C-Reactive Protein Total Protein Albumin PTH Intact Urine WBC (Auto) Urine Creatinine Urine Microalbumin Urine Total Protein Complement C3 Crossmatch 07/04/17 07/04/17 07/05/17 12:09 17:11 08:21 WBC 56.3 H* RBC Hgb 8.3 L Hct 29.1 L MCV 66 L MCH 19 L MCHC 28 L RDW 38.3 H Plt Count Seg Neuts % (Manual) 96.5 H Lymphocytes % (Manual) 1.0 L Seg Neutrophils # Man 54.3 H Lymphocytes # (Manual) 0.6 L Monocytes # (Manual) 1.4 H Eosinophils # (Manual) Lupus Anticoagulant LA PTT Baseline POC ABG pH POC ABG pCO2 POC ABG pO2 Sodium Potassium Chloride Carbon Dioxide BUN Creatinine Glucose POC Glucose 169 H 124 H Lactic Acid Calcium Phosphorus Magnesium Iron TIBC Transferrin AST C-Reactive Protein Total Protein Albumin PTH Intact Urine WBC (Auto) Urine Creatinine Urine Microalbumin Urine Total Protein Complement C3 Crossmatch 07/05/17 07/05/17 07/05/17 08:21 10:55 22:34 WBC RBC Hgb Hct MCV MCH MCHC RDW Plt Count Seg Neuts % (Manual) Lymphocytes % (Manual) Seg Neutrophils # Man Lymphocytes # (Manual) Monocytes # (Manual) Eosinophils # (Manual) Lupus Anticoagulant LA PTT Baseline POC ABG pH 7.185 L POC ABG pCO2 33.8 L POC ABG pO2 Sodium 135 L 135 L Potassium Chloride Carbon Dioxide 18 L 16 L BUN 25 H 27 H Creatinine 2.7 H D 2.9 H Glucose 115 H 119 H POC Glucose Lactic Acid Calcium 7.9 L 8.0 L Phosphorus Magnesium Iron TIBC Transferrin AST C-Reactive Protein Total Protein Albumin PTH Intact Urine WBC (Auto) Urine Creatinine Urine Microalbumin Urine Total Protein Complement C3 Crossmatch 07/05/17 07/06/17 07/06/17 Unknown 05:17 07:28 WBC RBC Hgb Hct MCV MCH MCHC RDW Plt Count Seg Neuts % (Manual) Lymphocytes % (Manual) Seg Neutrophils # Man Lymphocytes # (Manual) Monocytes # (Manual) Eosinophils # (Manual) Lupus Anticoagulant LA PTT Baseline POC ABG pH POC ABG pCO2 28.0 L POC ABG pO2 193 H Sodium Potassium Chloride 112.6 H Carbon Dioxide 15 L BUN 35 H Creatinine 4.0 H Glucose POC Glucose Lactic Acid Calcium 5.8 L* D Phosphorus Magnesium 1.20 L Iron TIBC Transferrin 148 L AST C-Reactive Protein Total Protein Albumin PTH Intact Urine WBC (Auto) Urine Creatinine 237.2 H Urine Microalbumin 39.9 H Urine Total Protein 170 H Complement C3 Crossmatch 07/06/17 07/06/17 07/06/17 07:28 07:28 10:27 WBC 28.9 H RBC Hgb 7.1 L Hct 24.5 L MCV 66 L MCH 19 L MCHC 29 L RDW 38.6 H Plt Count Seg Neuts % (Manual) Lymphocytes % (Manual) Seg Neutrophils # Man Lymphocytes # (Manual) Monocytes # (Manual) Eosinophils # (Manual) Lupus Anticoagulant LA PTT Baseline POC ABG pH POC ABG pCO2 POC ABG pO2 Sodium Potassium Chloride Carbon Dioxide BUN Creatinine Glucose POC Glucose Lactic Acid Calcium Phosphorus Magnesium Iron TIBC Transferrin AST C-Reactive Protein Total Protein Albumin PTH Intact 285.9 H Urine WBC (Auto) Urine Creatinine Urine Microalbumin Urine Total Protein Complement C3 Crossmatch See Detail 07/06/17 07/06/17 07/06/17 17:55 17:55 18:08 WBC RBC Hgb Hct MCV MCH MCHC RDW Plt Count Seg Neuts % (Manual) Lymphocytes % (Manual) Seg Neutrophils # Man Lymphocytes # (Manual) Monocytes # (Manual) Eosinophils # (Manual) Lupus Anticoagulant see below H LA PTT Baseline 47 H POC ABG pH POC ABG pCO2 POC ABG pO2 Sodium Potassium Chloride Carbon Dioxide BUN Creatinine Glucose POC Glucose Lactic Acid Calcium Phosphorus Magnesium Iron TIBC Transferrin AST C-Reactive Protein 26.20 H Total Protein Albumin PTH Intact Urine WBC (Auto) Urine Creatinine Urine Microalbumin Urine Total Protein Complement C3 77 L Crossmatch 07/07/17 07/07/17 07/07/17 04:18 05:59 05:59 WBC 24.9 H RBC Hgb 8.8 L Hct 28.0 L MCV 72 L MCH 23 L MCHC RDW 33.3 H Plt Count Seg Neuts % (Manual) Lymphocytes % (Manual) Seg Neutrophils # Man Lymphocytes # (Manual) Monocytes # (Manual) Eosinophils # (Manual) Lupus Anticoagulant LA PTT Baseline POC ABG pH POC ABG pCO2 27.5 L POC ABG pO2 61 L Sodium Potassium Chloride Carbon Dioxide 17 L BUN 46 H Creatinine 4.8 H Glucose 103 H POC Glucose Lactic Acid Calcium 7.6 L D Phosphorus Magnesium Iron TIBC Transferrin AST C-Reactive Protein Total Protein Albumin PTH Intact Urine WBC (Auto) Urine Creatinine Urine Microalbumin Urine Total Protein Complement C3 Crossmatch 07/07/17 07/08/17 07/08/17 05:59 04:22 04:22 WBC 21.3 H RBC Hgb 8.9 L Hct 27.5 L MCV 71 L MCH 23 L MCHC RDW 35.0 H Plt Count Seg Neuts % (Manual) Lymphocytes % (Manual) Seg Neutrophils # Man Lymphocytes # (Manual) Monocytes # (Manual) Eosinophils # (Manual) Lupus Anticoagulant LA PTT Baseline POC ABG pH POC ABG pCO2 POC ABG pO2 Sodium Potassium Chloride Carbon Dioxide 18 L BUN 56 H Creatinine 4.3 H Glucose 110 H POC Glucose Lactic Acid Calcium 8.3 L Phosphorus Magnesium 2.50 H Iron TIBC Transferrin AST C-Reactive Protein Total Protein Albumin PTH Intact Urine WBC (Auto) Urine Creatinine Urine Microalbumin Urine Total Protein Complement C3 Crossmatch 07/08/17 07/08/17 07/08/17 04:22 05:40 12:36 WBC RBC Hgb Hct MCV MCH MCHC RDW Plt Count Seg Neuts % (Manual) Lymphocytes % (Manual) Seg Neutrophils # Man Lymphocytes # (Manual) Monocytes # (Manual) Eosinophils # (Manual) Lupus Anticoagulant LA PTT Baseline POC ABG pH POC ABG pCO2 POC ABG pO2 158 H Sodium Potassium Chloride Carbon Dioxide BUN Creatinine Glucose POC Glucose 109 H Lactic Acid Calcium Phosphorus 4.80 H Magnesium 2.60 H Iron TIBC Transferrin AST C-Reactive Protein Total Protein Albumin PTH Intact Urine WBC (Auto) Urine Creatinine Urine Microalbumin Urine Total Protein Complement C3 Crossmatch 07/09/17 07/09/17 07/09/17 04:30 04:30 04:51 WBC RBC Hgb Hct MCV MCH MCHC RDW Plt Count Seg Neuts % (Manual) Lymphocytes % (Manual) Seg Neutrophils # Man Lymphocytes # (Manual) Monocytes # (Manual) Eosinophils # (Manual) Lupus Anticoagulant LA PTT Baseline POC ABG pH 7.522 H POC ABG pCO2 POC ABG pO2 67 L Sodium Potassium 3.2 L D Chloride 96.3 L Carbon Dioxide BUN 60 H Creatinine 3.6 H Glucose 115 H POC Glucose Lactic Acid Calcium Phosphorus 4.80 H Magnesium Iron TIBC Transferrin AST C-Reactive Protein Total Protein Albumin PTH Intact Urine WBC (Auto) Urine Creatinine Urine Microalbumin Urine Total Protein Complement C3 Crossmatch 07/09/17 07/09/17 07/09/17 12:26 17:51 23:48 WBC RBC Hgb Hct MCV MCH MCHC RDW Plt Count Seg Neuts % (Manual) Lymphocytes % (Manual) Seg Neutrophils # Man Lymphocytes # (Manual) Monocytes # (Manual) Eosinophils # (Manual) Lupus Anticoagulant LA PTT Baseline POC ABG pH POC ABG pCO2 POC ABG pO2 Sodium Potassium Chloride Carbon Dioxide BUN Creatinine Glucose POC Glucose 140 H 152 H 149 H Lactic Acid Calcium Phosphorus Magnesium Iron TIBC Transferrin AST C-Reactive Protein Total Protein Albumin PTH Intact Urine WBC (Auto) Urine Creatinine Urine Microalbumin Urine Total Protein Complement C3 Crossmatch 07/10/17 07/10/17 07/10/17 03:33 05:30 05:30 WBC 24.0 H RBC Hgb 9.0 L Hct 29.3 L MCV 69 L MCH 21 L MCHC RDW 35.9 H Plt Count 451 H Seg Neuts % (Manual) Lymphocytes % (Manual) Seg Neutrophils # Man Lymphocytes # (Manual) Monocytes # (Manual) Eosinophils # (Manual) Lupus Anticoagulant LA PTT Baseline POC ABG pH 7.593 H POC ABG pCO2 34.7 L POC ABG pO2 73 L Sodium Potassium Chloride 96.8 L Carbon Dioxide 31 H BUN 61 H Creatinine 2.9 H Glucose 120 H POC Glucose Lactic Acid Calcium Phosphorus 5.20 H Magnesium Iron TIBC Transferrin AST C-Reactive Protein Total Protein Albumin PTH Intact Urine WBC (Auto) Urine Creatinine Urine Microalbumin Urine Total Protein Complement C3 Crossmatch 07/10/17 07/10/17 07/10/17 12:19 17:59 23:51 WBC RBC Hgb Hct MCV MCH MCHC RDW Plt Count Seg Neuts % (Manual) Lymphocytes % (Manual) Seg Neutrophils # Man Lymphocytes # (Manual) Monocytes # (Manual) Eosinophils # (Manual) Lupus Anticoagulant LA PTT Baseline POC ABG pH POC ABG pCO2 POC ABG pO2 Sodium Potassium Chloride Carbon Dioxide BUN Creatinine Glucose POC Glucose 143 H 147 H 139 H Lactic Acid Calcium Phosphorus Magnesium Iron TIBC Transferrin AST C-Reactive Protein Total Protein Albumin PTH Intact Urine WBC (Auto) Urine Creatinine Urine Microalbumin Urine Total Protein Complement C3 Crossmatch 07/11/17 07/11/17 07/11/17 06:30 06:30 06:30 WBC 20.2 H RBC Hgb 8.4 L Hct 26.0 L MCV 71 L MCH 23 L MCHC RDW 35.6 H Plt Count 469 H Seg Neuts % (Manual) Lymphocytes % (Manual) Seg Neutrophils # Man Lymphocytes # (Manual) Monocytes # (Manual) Eosinophils # (Manual) Lupus Anticoagulant LA PTT Baseline POC ABG pH POC ABG pCO2 POC ABG pO2 Sodium Potassium Chloride Carbon Dioxide 32 H BUN 58 H Creatinine 2.4 H Glucose 111 H POC Glucose Lactic Acid Calcium Phosphorus 6.10 H Magnesium 1.60 L Iron TIBC Transferrin AST C-Reactive Protein Total Protein Albumin PTH Intact Urine WBC (Auto) Urine Creatinine Urine Microalbumin Urine Total Protein Complement C3 Crossmatch 07/11/17 07/11/17 07/11/17 08:54 12:47 17:33 WBC RBC Hgb Hct MCV MCH MCHC RDW Plt Count Seg Neuts % (Manual) Lymphocytes % (Manual) Seg Neutrophils # Man Lymphocytes # (Manual) Monocytes # (Manual) Eosinophils # (Manual) Lupus Anticoagulant LA PTT Baseline POC ABG pH 7.485 H POC ABG pCO2 POC ABG pO2 Sodium Potassium Chloride Carbon Dioxide BUN Creatinine Glucose POC Glucose 168 H 151 H Lactic Acid Calcium Phosphorus Magnesium Iron TIBC Transferrin AST C-Reactive Protein Total Protein Albumin PTH Intact Urine WBC (Auto) Urine Creatinine Urine Microalbumin Urine Total Protein Complement C3 Crossmatch 07/11/17 07/12/17 07/12/17 23:52 05:39 06:25 WBC RBC Hgb Hct MCV MCH MCHC RDW Plt Count Seg Neuts % (Manual) Lymphocytes % (Manual) Seg Neutrophils # Man Lymphocytes # (Manual) Monocytes # (Manual) Eosinophils # (Manual) Lupus Anticoagulant LA PTT Baseline POC ABG pH POC ABG pCO2 POC ABG pO2 Sodium Potassium Chloride Carbon Dioxide BUN 43 H Creatinine 1.8 H Glucose 138 H POC Glucose 156 H 146 H Lactic Acid Calcium Phosphorus 5.90 H Magnesium Iron TIBC Transferrin AST C-Reactive Protein Total Protein Albumin PTH Intact Urine WBC (Auto) Urine Creatinine Urine Microalbumin Urine Total Protein Complement C3 Crossmatch 07/12/17 07/12/17 07/12/17 11:46 12:14 17:01 WBC RBC Hgb Hct MCV MCH MCHC RDW Plt Count Seg Neuts % (Manual) Lymphocytes % (Manual) Seg Neutrophils # Man Lymphocytes # (Manual) Monocytes # (Manual) Eosinophils # (Manual) Lupus Anticoagulant LA PTT Baseline POC ABG pH 7.477 H POC ABG pCO2 POC ABG pO2 Sodium Potassium Chloride Carbon Dioxide BUN Creatinine Glucose POC Glucose 156 H Lactic Acid Calcium Phosphorus Magnesium Iron TIBC Transferrin AST C-Reactive Protein 10.30 H Total Protein Albumin PTH Intact Urine WBC (Auto) Urine Creatinine Urine Microalbumin Urine Total Protein Complement C3 Crossmatch 07/12/17 07/12/17 07/13/17 18:03 23:47 05:53 WBC RBC Hgb Hct MCV MCH MCHC RDW Plt Count Seg Neuts % (Manual) Lymphocytes % (Manual) Seg Neutrophils # Man Lymphocytes # (Manual) Monocytes # (Manual) Eosinophils # (Manual) Lupus Anticoagulant LA PTT Baseline POC ABG pH POC ABG pCO2 POC ABG pO2 Sodium Potassium Chloride Carbon Dioxide BUN Creatinine Glucose POC Glucose 140 H 158 H 137 H Lactic Acid Calcium Phosphorus Magnesium Iron TIBC Transferrin AST C-Reactive Protein Total Protein Albumin PTH Intact Urine WBC (Auto) Urine Creatinine Urine Microalbumin Urine Total Protein Complement C3 Crossmatch 07/13/17 07/13/17 07/13/17 06:15 08:26 10:43 WBC 18.3 H RBC 3.35 L Hgb 7.6 L Hct 24.4 L MCV 73 L MCH 23 L MCHC RDW 35.3 H Plt Count 520 H Seg Neuts % (Manual) 81.0 H Lymphocytes % (Manual) 12.0 L Seg Neutrophils # Man 14.8 H Lymphocytes # (Manual) Monocytes # (Manual) Eosinophils # (Manual) 0.7 H Lupus Anticoagulant LA PTT Baseline POC ABG pH 7.459 H POC ABG pCO2 POC ABG pO2 Sodium 149 H Potassium Chloride Carbon Dioxide BUN 31 H Creatinine 1.3 H Glucose 112 H POC Glucose Lactic Acid Calcium Phosphorus 5.10 H Magnesium 1.60 L Iron TIBC Transferrin AST C-Reactive Protein Total Protein Albumin PTH Intact Urine WBC (Auto) Urine Creatinine Urine Microalbumin Urine Total Protein Complement C3 Crossmatch 07/13/17 07/13/17 07/14/17 12:16 17:38 00:16 WBC RBC Hgb Hct MCV MCH MCHC RDW Plt Count Seg Neuts % (Manual) Lymphocytes % (Manual) Seg Neutrophils # Man Lymphocytes # (Manual) Monocytes # (Manual) Eosinophils # (Manual) Lupus Anticoagulant LA PTT Baseline POC ABG pH POC ABG pCO2 POC ABG pO2 Sodium Potassium Chloride Carbon Dioxide BUN Creatinine Glucose POC Glucose 141 H 144 H 152 H Lactic Acid Calcium Phosphorus Magnesium Iron TIBC Transferrin AST C-Reactive Protein Total Protein Albumin PTH Intact Urine WBC (Auto) Urine Creatinine Urine Microalbumin Urine Total Protein Complement C3 Crossmatch 07/14/17 07/14/17 06:11 09:35 WBC RBC Hgb Hct MCV MCH MCHC RDW Plt Count Seg Neuts % (Manual) Lymphocytes % (Manual) Seg Neutrophils # Man Lymphocytes # (Manual) Monocytes # (Manual) Eosinophils # (Manual) Lupus Anticoagulant LA PTT Baseline POC ABG pH POC ABG pCO2 POC ABG pO2 Sodium Potassium 3.5 L Chloride Carbon Dioxide BUN 21 H Creatinine Glucose 139 H POC Glucose 138 H Lactic Acid Calcium Phosphorus Magnesium 1.40 L Iron TIBC Transferrin AST 42 H C-Reactive Protein Total Protein 6.1 L Albumin 2.6 L PTH Intact Urine WBC (Auto) Urine Creatinine Urine Microalbumin Urine Total Protein Complement C3 Crossmatch Chest x-ray: image reviewed Allied health notes reviewed: RT
[2017-07-14] MEDS ORDERED: KPHOS 45 MMOL in NACL 0.9% 500 ML 500 ML IV ONE (11:30)
--- NOTE | 2017-07-14 16:51 | Progress Note ---
Assessment and Plan - Patient Problems (1) Ischemia, bowel Current Visit: Yes Status: Acute Plan to address problem: Pt stable. s/p enteroenterostomy and closure of abdominal wall - 5 - POD#5. - Ok to d/c NGT - clear liquid diet - Will need to continue TPN indefintely. Can begin cycling at any time. - Incision looks good. No clinical signs to suggest anastomotic leak Subjective Date of service: 07/14/17 Patient Reports: Positive: bowel movement (this AM), nausea, other (thirsty. having pain at incision.). Negative: vomiting Objective Vital Signs - 12hr 07/14/17 07/14/17 07/14/17 05:00 06:00 06:02 Temperature Pulse Rate 117 H 102 H 121 H Pulse Rate [ From Monitor] Respiratory 31 H 25 H Rate Blood Pressure 189/102 164/91 199/106 O2 Sat by Pulse 99 Oximetry 07/14/17 07/14/17 07/14/17 07:00 07:28 08:00 Temperature 99.1 F Pulse Rate 108 H 109 H Pulse Rate [ 113 H From Monitor] Respiratory 31 H 29 H Rate Blood Pressure 184/102 194/104 O2 Sat by Pulse 99 99 Oximetry 07/14/17 07/14/17 07/14/17 09:00 10:00 11:00 Temperature Pulse Rate 114 H 111 H Pulse Rate [ From Monitor] Respiratory 29 H 30 H Rate Blood Pressure 195/87 167/96 178/91 O2 Sat by Pulse 98 99 99 Oximetry 07/14/17 12:00 Temperature 98.0 F Pulse Rate 121 H Pulse Rate [ 117 H From Monitor] Respiratory 35 H Rate Blood Pressure 202/104 O2 Sat by Pulse 76 L Oximetry - General physical appearance no distress, other (very tired) - Respiratory normal expansion, normal respiratory effort - Abdomen soft, tender (mild, diffuse), not distended, not guarding, not rigid, wound (C/D /I) - Labs 07/13/17 10:43 07/14/17 09:35 Diabetes panel 07/14/17 Range/Units 09:35 Sodium 139 D (137-145) mmol/L Potassium 3.5 L (3.6-5.0) mmol/L Chloride 100.0 (98-107) mmol/L Carbon Dioxide 26 (22-30) mmol/L BUN 21 H (7-17) mg/dL Creatinine 0.9 (0.7-1.2) mg/dL Glucose 139 H (65-100) mg/dL Calcium 8.5 (8.4-10.2) mg/dL AST 42 H (5-40) units/L ALT 29 (7-56) units/L Alkaline Phosphatase 105 (35-129) units/L Total Protein 6.1 L (6.3-8.2) g/dL Albumin 2.6 L (3.9-5) g/dL Calcium panel 07/14/17 Range/Units 09:35 Calcium 8.5 (8.4-10.2) mg/dL Phosphorus 4.00 D (2.5-4.5) mg/dL Albumin 2.6 L (3.9-5) g/dL Pituitary panel 07/14/17 Range/Units 09:35 Sodium 139 D (137-145) mmol/L Potassium 3.5 L (3.6-5.0) mmol/L Chloride 100.0 (98-107) mmol/L Carbon Dioxide 26 (22-30) mmol/L BUN 21 H (7-17) mg/dL Creatinine 0.9 (0.7-1.2) mg/dL Glucose 139 H (65-100) mg/dL Calcium 8.5 (8.4-10.2) mg/dL Adrenal panel 07/14/17 Range/Units 09:35 Sodium 139 D (137-145) mmol/L Potassium 3.5 L (3.6-5.0) mmol/L Chloride 100.0 (98-107) mmol/L Carbon Dioxide 26 (22-30) mmol/L BUN 21 H (7-17) mg/dL Creatinine 0.9 (0.7-1.2) mg/dL Glucose 139 H (65-100) mg/dL Calcium 8.5 (8.4-10.2) mg/dL Total Bilirubin 0.50 (0.1-1.2) mg/dL AST 42 H (5-40) units/L ALT 29 (7-56) units/L Alkaline Phosphatase 105 (35-129) units/L Total Protein 6.1 L (6.3-8.2) g/dL Albumin 2.6 L (3.9-5) g/dL
[2017-07-14] MEDS: ZOSYN/NS 4.5GM/100ML 4.5 GM/100 ML VIAL IV SCH ×2 (19:23→21:22)
[2017-07-14] MEDS ORDERED: TPN ADULT 2,400 ML IV SCH (20:00)
[2017-07-14] MEDS: PEPCID IV SCH (21:24)
[2017-07-15] MEDS: APRESOLINE IV PRN ×2 (01:52→09:13)
[2017-07-15] MEDS: ATIVAN IV PRN ×2 (03:19→20:53)
[2017-07-15] MEDS: HEPARIN SUB-Q SCH ×4 (05:34→22:00)
[2017-07-15] MEDS: ZOSYN/NS 4.5GM/100ML 4.5 GM/100 ML VIAL IV SCH ×3 (05:37→23:41)
[2017-07-15] MEDS: MORPHINE IV PRN ×2 (05:39→20:54)
[2017-07-15] MEDS: DIFLUCAN 200 MG/100 ML BAG IV SCH ×2 (06:47→10:28)
[2017-07-15] MEDS: PEPCID IV SCH ×4 (06:47→22:00)
[2017-07-15] MEDS: ZOSYN/NS 2.25 GM/50ML 2.25 GM/50 ML BAG IV SCH (09:16)
[2017-07-15] MEDS: DURAGESIC TD SCH (10:28)
[2017-07-15] MEDS: TRANSDERM-SCOP TD SCH (10:30)
[2017-07-15 10:51] LABS: BUN/Creatinine Ratio 18; Blood Urea Nitrogen 16 mg/dL (7-17); Calcium 8.5 mg/dL (8.4-10.2); Hemolysis Index 0
--- NOTE | 2017-07-15 11:09 | XRay Report ---
PORTABLE CHEST INDICATION: Followup respiratory failure. COMPARISON: 07/13/2017 FINDINGS: Portable, frontal chest radiograph demonstrates interval extubation and nasogastric tube removal. Stable left upper extremity PICC tip about the cavoatrial junction. Slight patient rotation to the left. Grossly stable cardiomediastinal silhouette/slight cardiomegaly. Right mid to lower lung hazy layering pleural fluid again suspected and some possibly on the left as well, though left hemidiaphragm better delineated. No cephalization. EKG leads. Intact bones. CONCLUSION: Right mid to lower lung hazy pleural fluid again suspected in this patient with interval extubation and nasogastric tube removal, as described. Please correlate. Thank you for the opportunity to participate in this patient's care.
--- NOTE | 2017-07-15 11:52 | Progress Note ---
Assessment and Plan Postoperative respiratory failure, now on mechanical ventilatory support Sepsis syndrome. Ischemic bowel, possibly secondary to embolic event vs related to drug abuse H/O Cocaine use with possibility of arterial spasm. Acute kidney injury. Leukocytosis. Uncontrolled hypertension. Severe anemia. Drug abuse. Alcohol abuse - begin daytime SBT's but rest on AC overnight - reduced set rate to 12/min - continue daily SAT's - continue anti-infectives per ID recs - keep NPO - continue TPN per surgery - continue GI & VTE prophylaxis - gentle hydration - azotemia per nephrology (non-oliguric now) - GI & VTE prophylaxis - flu & pneumovax per protocol ...30' CCT Subjective Date of service: 07/15/17 Principal diagnosis: Post-Op Resp Failure s/p MVS; Ischemic Bowel s/p Ex-Lap; EMMA Interval history: Patient is seen today for: Post-Op Resp Failure on MVS; Ischemic Bowel s/p Ex- Lap; EMMA Seen and examined at bedside; 24hour events reviewed; nursing and respiratory care staff consulted; no adverse overnight events reported to me; resting peacefully; tolerated a couple hours on PSV 20/5 but tired out and back on full support. Objective Vital Signs - 12hr 07/15/17 07/15/17 07/15/17 01:52 08:04 08:41 Temperature 99.1 F Pulse Rate 135 H 117 H Respiratory 20 Rate Blood Pressure 199/112 204/101 O2 Sat by Pulse 94 97 Oximetry Constitutional: no acute distress Eyes: non-icteric ENT: oropharynx moist, other (ETT 23 cm IVA) Neck: supple, no lymphadenopathy, no JVD, other (no thyromegaly) Effort: mildly labored Ascultation: Bilateral: diminished breath sounds (bases), rhonchi Percussion: Bilateral: not dull Cardiovascular: regular rate and rhythm, other (No R/M) Gastrointestinal: hypoactive bowel sounds, non-distended, other (no palpable HSM ; clean dry wound site with marilyn) Integumentary: normal Extremities: no cyanosis, no edema, pulses normal, no ischemia or petechiae Neurologic: normal mental status, non-focal exam, pupils equal and round, CN II- XII normal, motor strength normal and Psychiatric: mood appropriate, affect normal, anxious CBC and BMP: 07/13/17 10:43 07/15/17 06:31 ABG, PT/INR, D-dimer: ABG POC ABG pH 7.459 (7.35-7.45) H 07/13/17 08:26 POC ABG pCO2 40.4 (35-45) 07/13/17 08:26 POC ABG pO2 99 (80-105) 07/13/17 08:26 POC ABG HCO3 28.6 07/13/17 08:26 POC ABG Total CO2 30 07/13/17 08:26 POC ABG O2 Sat 98 07/13/17 08:26 PT/INR, D-dimer PT 12.5 Sec. (12.2-14.9) 07/03/17 06:19 INR 0.89 (0.87-1.13) 07/03/17 06:19 Abnormal lab findings: Abnormal Labs 07/03/17 07/03/17 07/03/17 05:11 05:28 05:28 WBC 12.9 H RBC Hgb 5.6 L* Hct 22.3 L MCV 59 L MCH 15 L MCHC 25 L RDW 33.3 H Plt Count 125 L Seg Neuts % (Manual) 75.0 H Lymphocytes % (Manual) Seg Neutrophils # Man 9.7 H Lymphocytes # (Manual) Monocytes # (Manual) Eosinophils # (Manual) Lupus Anticoagulant LA PTT Baseline POC ABG pH POC ABG pCO2 POC ABG pO2 Sodium Potassium 3.0 L Chloride Carbon Dioxide BUN Creatinine 0.6 L Glucose 220 H POC Glucose 188 H Lactic Acid Calcium Phosphorus Magnesium Iron TIBC Transferrin AST C-Reactive Protein Total Protein Albumin PTH Intact Urine WBC (Auto) Urine Creatinine Urine Microalbumin Urine Total Protein Complement C3 Crossmatch 07/03/17 07/03/17 07/03/17 06:19 06:35 08:42 WBC RBC Hgb Hct MCV MCH MCHC RDW Plt Count Seg Neuts % (Manual) Lymphocytes % (Manual) Seg Neutrophils # Man Lymphocytes # (Manual) Monocytes # (Manual) Eosinophils # (Manual) Lupus Anticoagulant LA PTT Baseline POC ABG pH POC ABG pCO2 POC ABG pO2 Sodium Potassium Chloride Carbon Dioxide BUN Creatinine Glucose POC Glucose Lactic Acid 2.50 H* 2.20 H* Calcium Phosphorus Magnesium Iron TIBC Transferrin AST C-Reactive Protein Total Protein Albumin PTH Intact Urine WBC (Auto) Urine Creatinine Urine Microalbumin Urine Total Protein Complement C3 Crossmatch See Detail 07/03/17 07/03/17 07/03/17 09:31 09:31 11:50 WBC RBC Hgb 5.7 L* Hct 22.4 L MCV MCH MCHC RDW Plt Count Seg Neuts % (Manual) Lymphocytes % (Manual) Seg Neutrophils # Man Lymphocytes # (Manual) Monocytes # (Manual) Eosinophils # (Manual) Lupus Anticoagulant LA PTT Baseline POC ABG pH POC ABG pCO2 POC ABG pO2 Sodium Potassium Chloride Carbon Dioxide BUN Creatinine Glucose POC Glucose Lactic Acid 2.80 H* Calcium Phosphorus Magnesium Iron 12 L TIBC 534 H Transferrin AST C-Reactive Protein Total Protein Albumin PTH Intact Urine WBC (Auto) Urine Creatinine Urine Microalbumin Urine Total Protein Complement C3 Crossmatch 07/03/17 07/03/17 07/03/17 16:50 16:50 Unknown WBC RBC Hgb 9.7 L D Hct MCV MCH MCHC RDW Plt Count Seg Neuts % (Manual) Lymphocytes % (Manual) Seg Neutrophils # Man Lymphocytes # (Manual) Monocytes # (Manual) Eosinophils # (Manual) Lupus Anticoagulant LA PTT Baseline POC ABG pH POC ABG pCO2 POC ABG pO2 Sodium Potassium Chloride Carbon Dioxide BUN Creatinine Glucose POC Glucose Lactic Acid 2.30 H* Calcium Phosphorus Magnesium Iron TIBC Transferrin AST C-Reactive Protein Total Protein Albumin PTH Intact Urine WBC (Auto) 18.0 H Urine Creatinine Urine Microalbumin Urine Total Protein Complement C3 Crossmatch 07/04/17 07/04/17 07/04/17 03:57 03:57 04:39 WBC 42.4 H* 42.8 H* RBC Hgb 9.1 L 9.3 L Hct MCV 65 L 66 L MCH 19 L 20 L MCHC 29 L RDW 37.3 H 37.3 H Plt Count 120 L Seg Neuts % (Manual) 93.5 H Lymphocytes % (Manual) 2.5 L Seg Neutrophils # Man 40.0 H Lymphocytes # (Manual) 1.1 L Monocytes # (Manual) 1.1 H Eosinophils # (Manual) Lupus Anticoagulant LA PTT Baseline POC ABG pH POC ABG pCO2 POC ABG pO2 Sodium 134 L Potassium 3.5 L Chloride 95.4 L Carbon Dioxide 21 L BUN 6 L Creatinine 0.5 L Glucose 147 H POC Glucose Lactic Acid Calcium 7.9 L Phosphorus Magnesium Iron TIBC Transferrin AST C-Reactive Protein Total Protein Albumin PTH Intact Urine WBC (Auto) Urine Creatinine Urine Microalbumin Urine Total Protein Complement C3 Crossmatch 07/04/17 07/04/17 07/05/17 12:09 17:11 08:21 WBC 56.3 H* RBC Hgb 8.3 L Hct 29.1 L MCV 66 L MCH 19 L MCHC 28 L RDW 38.3 H Plt Count Seg Neuts % (Manual) 96.5 H Lymphocytes % (Manual) 1.0 L Seg Neutrophils # Man 54.3 H Lymphocytes # (Manual) 0.6 L Monocytes # (Manual) 1.4 H Eosinophils # (Manual) Lupus Anticoagulant LA PTT Baseline POC ABG pH POC ABG pCO2 POC ABG pO2 Sodium Potassium Chloride Carbon Dioxide BUN Creatinine Glucose POC Glucose 169 H 124 H Lactic Acid Calcium Phosphorus Magnesium Iron TIBC Transferrin AST C-Reactive Protein Total Protein Albumin PTH Intact Urine WBC (Auto) Urine Creatinine Urine Microalbumin Urine Total Protein Complement C3 Crossmatch 07/05/17 07/05/17 07/05/17 08:21 10:55 22:34 WBC RBC Hgb Hct MCV MCH MCHC RDW Plt Count Seg Neuts % (Manual) Lymphocytes % (Manual) Seg Neutrophils # Man Lymphocytes # (Manual) Monocytes # (Manual) Eosinophils # (Manual) Lupus Anticoagulant LA PTT Baseline POC ABG pH 7.185 L POC ABG pCO2 33.8 L POC ABG pO2 Sodium 135 L 135 L Potassium Chloride Carbon Dioxide 18 L 16 L BUN 25 H 27 H Creatinine 2.7 H D 2.9 H Glucose 115 H 119 H POC Glucose Lactic Acid Calcium 7.9 L 8.0 L Phosphorus Magnesium Iron TIBC Transferrin AST C-Reactive Protein Total Protein Albumin PTH Intact Urine WBC (Auto) Urine Creatinine Urine Microalbumin Urine Total Protein Complement C3 Crossmatch 07/05/17 07/06/17 07/06/17 Unknown 05:17 07:28 WBC RBC Hgb Hct MCV MCH MCHC RDW Plt Count Seg Neuts % (Manual) Lymphocytes % (Manual) Seg Neutrophils # Man Lymphocytes # (Manual) Monocytes # (Manual) Eosinophils # (Manual) Lupus Anticoagulant LA PTT Baseline POC ABG pH POC ABG pCO2 28.0 L POC ABG pO2 193 H Sodium Potassium Chloride 112.6 H Carbon Dioxide 15 L BUN 35 H Creatinine 4.0 H Glucose POC Glucose Lactic Acid Calcium 5.8 L* D Phosphorus Magnesium 1.20 L Iron TIBC Transferrin 148 L AST C-Reactive Protein Total Protein Albumin PTH Intact Urine WBC (Auto) Urine Creatinine 237.2 H Urine Microalbumin 39.9 H Urine Total Protein 170 H Complement C3 Crossmatch 07/06/17 07/06/17 07/06/17 07:28 07:28 10:27 WBC 28.9 H RBC Hgb 7.1 L Hct 24.5 L MCV 66 L MCH 19 L MCHC 29 L RDW 38.6 H Plt Count Seg Neuts % (Manual) Lymphocytes % (Manual) Seg Neutrophils # Man Lymphocytes # (Manual) Monocytes # (Manual) Eosinophils # (Manual) Lupus Anticoagulant LA PTT Baseline POC ABG pH POC ABG pCO2 POC ABG pO2 Sodium Potassium Chloride Carbon Dioxide BUN Creatinine Glucose POC Glucose Lactic Acid Calcium Phosphorus Magnesium Iron TIBC Transferrin AST C-Reactive Protein Total Protein Albumin PTH Intact 285.9 H Urine WBC (Auto) Urine Creatinine Urine Microalbumin Urine Total Protein Complement C3 Crossmatch See Detail 07/06/17 07/06/17 07/06/17 17:55 17:55 18:08 WBC RBC Hgb Hct MCV MCH MCHC RDW Plt Count Seg Neuts % (Manual) Lymphocytes % (Manual) Seg Neutrophils # Man Lymphocytes # (Manual) Monocytes # (Manual) Eosinophils # (Manual) Lupus Anticoagulant see below H LA PTT Baseline 47 H POC ABG pH POC ABG pCO2 POC ABG pO2 Sodium Potassium Chloride Carbon Dioxide BUN Creatinine Glucose POC Glucose Lactic Acid Calcium Phosphorus Magnesium Iron TIBC Transferrin AST C-Reactive Protein 26.20 H Total Protein Albumin PTH Intact Urine WBC (Auto) Urine Creatinine Urine Microalbumin Urine Total Protein Complement C3 77 L Crossmatch 07/07/17 07/07/17 07/07/17 04:18 05:59 05:59 WBC 24.9 H RBC Hgb 8.8 L Hct 28.0 L MCV 72 L MCH 23 L MCHC RDW 33.3 H Plt Count Seg Neuts % (Manual) Lymphocytes % (Manual) Seg Neutrophils # Man Lymphocytes # (Manual) Monocytes # (Manual) Eosinophils # (Manual) Lupus Anticoagulant LA PTT Baseline POC ABG pH POC ABG pCO2 27.5 L POC ABG pO2 61 L Sodium Potassium Chloride Carbon Dioxide 17 L BUN 46 H Creatinine 4.8 H Glucose 103 H POC Glucose Lactic Acid Calcium 7.6 L D Phosphorus Magnesium Iron TIBC Transferrin AST C-Reactive Protein Total Protein Albumin PTH Intact Urine WBC (Auto) Urine Creatinine Urine Microalbumin Urine Total Protein Complement C3 Crossmatch 07/07/17 07/08/17 07/08/17 05:59 04:22 04:22 WBC 21.3 H RBC Hgb 8.9 L Hct 27.5 L MCV 71 L MCH 23 L MCHC RDW 35.0 H Plt Count Seg Neuts % (Manual) Lymphocytes % (Manual) Seg Neutrophils # Man Lymphocytes # (Manual) Monocytes # (Manual) Eosinophils # (Manual) Lupus Anticoagulant LA PTT Baseline POC ABG pH POC ABG pCO2 POC ABG pO2 Sodium Potassium Chloride Carbon Dioxide 18 L BUN 56 H Creatinine 4.3 H Glucose 110 H POC Glucose Lactic Acid Calcium 8.3 L Phosphorus Magnesium 2.50 H Iron TIBC Transferrin AST C-Reactive Protein Total Protein Albumin PTH Intact Urine WBC (Auto) Urine Creatinine Urine Microalbumin Urine Total Protein Complement C3 Crossmatch 07/08/17 07/08/17 07/08/17 04:22 05:40 12:36 WBC RBC Hgb Hct MCV MCH MCHC RDW Plt Count Seg Neuts % (Manual) Lymphocytes % (Manual) Seg Neutrophils # Man Lymphocytes # (Manual) Monocytes # (Manual) Eosinophils # (Manual) Lupus Anticoagulant LA PTT Baseline POC ABG pH POC ABG pCO2 POC ABG pO2 158 H Sodium Potassium Chloride Carbon Dioxide BUN Creatinine Glucose POC Glucose 109 H Lactic Acid Calcium Phosphorus 4.80 H Magnesium 2.60 H Iron TIBC Transferrin AST C-Reactive Protein Total Protein Albumin PTH Intact Urine WBC (Auto) Urine Creatinine Urine Microalbumin Urine Total Protein Complement C3 Crossmatch 07/09/17 07/09/17 07/09/17 04:30 04:30 04:51 WBC RBC Hgb Hct MCV MCH MCHC RDW Plt Count Seg Neuts % (Manual) Lymphocytes % (Manual) Seg Neutrophils # Man Lymphocytes # (Manual) Monocytes # (Manual) Eosinophils # (Manual) Lupus Anticoagulant LA PTT Baseline POC ABG pH 7.522 H POC ABG pCO2 POC ABG pO2 67 L Sodium Potassium 3.2 L D Chloride 96.3 L Carbon Dioxide BUN 60 H Creatinine 3.6 H Glucose 115 H POC Glucose Lactic Acid Calcium Phosphorus 4.80 H Magnesium Iron TIBC Transferrin AST C-Reactive Protein Total Protein Albumin PTH Intact Urine WBC (Auto) Urine Creatinine Urine Microalbumin Urine Total Protein Complement C3 Crossmatch 07/09/17 07/09/17 07/09/17 12:26 17:51 23:48 WBC RBC Hgb Hct MCV MCH MCHC RDW Plt Count Seg Neuts % (Manual) Lymphocytes % (Manual) Seg Neutrophils # Man Lymphocytes # (Manual) Monocytes # (Manual) Eosinophils # (Manual) Lupus Anticoagulant LA PTT Baseline POC ABG pH POC ABG pCO2 POC ABG pO2 Sodium Potassium Chloride Carbon Dioxide BUN Creatinine Glucose POC Glucose 140 H 152 H 149 H Lactic Acid Calcium Phosphorus Magnesium Iron TIBC Transferrin AST C-Reactive Protein Total Protein Albumin PTH Intact Urine WBC (Auto) Urine Creatinine Urine Microalbumin Urine Total Protein Complement C3 Crossmatch 07/10/17 07/10/17 07/10/17 03:33 05:30 05:30 WBC 24.0 H RBC Hgb 9.0 L Hct 29.3 L MCV 69 L MCH 21 L MCHC RDW 35.9 H Plt Count 451 H Seg Neuts % (Manual) Lymphocytes % (Manual) Seg Neutrophils # Man Lymphocytes # (Manual) Monocytes # (Manual) Eosinophils # (Manual) Lupus Anticoagulant LA PTT Baseline POC ABG pH 7.593 H POC ABG pCO2 34.7 L POC ABG pO2 73 L Sodium Potassium Chloride 96.8 L Carbon Dioxide 31 H BUN 61 H Creatinine 2.9 H Glucose 120 H POC Glucose Lactic Acid Calcium Phosphorus 5.20 H Magnesium Iron TIBC Transferrin AST C-Reactive Protein Total Protein Albumin PTH Intact Urine WBC (Auto) Urine Creatinine Urine Microalbumin Urine Total Protein Complement C3 Crossmatch 07/10/17 07/10/17 07/10/17 12:19 17:59 23:51 WBC RBC Hgb Hct MCV MCH MCHC RDW Plt Count Seg Neuts % (Manual) Lymphocytes % (Manual) Seg Neutrophils # Man Lymphocytes # (Manual) Monocytes # (Manual) Eosinophils # (Manual) Lupus Anticoagulant LA PTT Baseline POC ABG pH POC ABG pCO2 POC ABG pO2 Sodium Potassium Chloride Carbon Dioxide BUN Creatinine Glucose POC Glucose 143 H 147 H 139 H Lactic Acid Calcium Phosphorus Magnesium Iron TIBC Transferrin AST C-Reactive Protein Total Protein Albumin PTH Intact Urine WBC (Auto) Urine Creatinine Urine Microalbumin Urine Total Protein Complement C3 Crossmatch 07/11/17 07/11/17 07/11/17 06:30 06:30 06:30 WBC 20.2 H RBC Hgb 8.4 L Hct 26.0 L MCV 71 L MCH 23 L MCHC RDW 35.6 H Plt Count 469 H Seg Neuts % (Manual) Lymphocytes % (Manual) Seg Neutrophils # Man Lymphocytes # (Manual) Monocytes # (Manual) Eosinophils # (Manual) Lupus Anticoagulant LA PTT Baseline POC ABG pH POC ABG pCO2 POC ABG pO2 Sodium Potassium Chloride Carbon Dioxide 32 H BUN 58 H Creatinine 2.4 H Glucose 111 H POC Glucose Lactic Acid Calcium Phosphorus 6.10 H Magnesium 1.60 L Iron TIBC Transferrin AST C-Reactive Protein Total Protein Albumin PTH Intact Urine WBC (Auto) Urine Creatinine Urine Microalbumin Urine Total Protein Complement C3 Crossmatch 07/11/17 07/11/17 07/11/17 08:54 12:47 17:33 WBC RBC Hgb Hct MCV MCH MCHC RDW Plt Count Seg Neuts % (Manual) Lymphocytes % (Manual) Seg Neutrophils # Man Lymphocytes # (Manual) Monocytes # (Manual) Eosinophils # (Manual) Lupus Anticoagulant LA PTT Baseline POC ABG pH 7.485 H POC ABG pCO2 POC ABG pO2 Sodium Potassium Chloride Carbon Dioxide BUN Creatinine Glucose POC Glucose 168 H 151 H Lactic Acid Calcium Phosphorus Magnesium Iron TIBC Transferrin AST C-Reactive Protein Total Protein Albumin PTH Intact Urine WBC (Auto) Urine Creatinine Urine Microalbumin Urine Total Protein Complement C3 Crossmatch 07/11/17 07/12/17 07/12/17 23:52 05:39 06:25 WBC RBC Hgb Hct MCV MCH MCHC RDW Plt Count Seg Neuts % (Manual) Lymphocytes % (Manual) Seg Neutrophils # Man Lymphocytes # (Manual) Monocytes # (Manual) Eosinophils # (Manual) Lupus Anticoagulant LA PTT Baseline POC ABG pH POC ABG pCO2 POC ABG pO2 Sodium Potassium Chloride Carbon Dioxide BUN 43 H Creatinine 1.8 H Glucose 138 H POC Glucose 156 H 146 H Lactic Acid Calcium Phosphorus 5.90 H Magnesium Iron TIBC Transferrin AST C-Reactive Protein Total Protein Albumin PTH Intact Urine WBC (Auto) Urine Creatinine Urine Microalbumin Urine Total Protein Complement C3 Crossmatch 07/12/17 07/12/17 07/12/17 11:46 12:14 17:01 WBC RBC Hgb Hct MCV MCH MCHC RDW Plt Count Seg Neuts % (Manual) Lymphocytes % (Manual) Seg Neutrophils # Man Lymphocytes # (Manual) Monocytes # (Manual) Eosinophils # (Manual) Lupus Anticoagulant LA PTT Baseline POC ABG pH 7.477 H POC ABG pCO2 POC ABG pO2 Sodium Potassium Chloride Carbon Dioxide BUN Creatinine Glucose POC Glucose 156 H Lactic Acid Calcium Phosphorus Magnesium Iron TIBC Transferrin AST C-Reactive Protein 10.30 H Total Protein Albumin PTH Intact Urine WBC (Auto) Urine Creatinine Urine Microalbumin Urine Total Protein Complement C3 Crossmatch 07/12/17 07/12/17 07/13/17 18:03 23:47 05:53 WBC RBC Hgb Hct MCV MCH MCHC RDW Plt Count Seg Neuts % (Manual) Lymphocytes % (Manual) Seg Neutrophils # Man Lymphocytes # (Manual) Monocytes # (Manual) Eosinophils # (Manual) Lupus Anticoagulant LA PTT Baseline POC ABG pH POC ABG pCO2 POC ABG pO2 Sodium Potassium Chloride Carbon Dioxide BUN Creatinine Glucose POC Glucose 140 H 158 H 137 H Lactic Acid Calcium Phosphorus Magnesium Iron TIBC Transferrin AST C-Reactive Protein Total Protein Albumin PTH Intact Urine WBC (Auto) Urine Creatinine Urine Microalbumin Urine Total Protein Complement C3 Crossmatch 07/13/17 07/13/17 07/13/17 06:15 08:26 10:43 WBC 18.3 H RBC 3.35 L Hgb 7.6 L Hct 24.4 L MCV 73 L MCH 23 L MCHC RDW 35.3 H Plt Count 520 H Seg Neuts % (Manual) 81.0 H Lymphocytes % (Manual) 12.0 L Seg Neutrophils # Man 14.8 H Lymphocytes # (Manual) Monocytes # (Manual) Eosinophils # (Manual) 0.7 H Lupus Anticoagulant LA PTT Baseline POC ABG pH 7.459 H POC ABG pCO2 POC ABG pO2 Sodium 149 H Potassium Chloride Carbon Dioxide BUN 31 H Creatinine 1.3 H Glucose 112 H POC Glucose Lactic Acid Calcium Phosphorus 5.10 H Magnesium 1.60 L Iron TIBC Transferrin AST C-Reactive Protein Total Protein Albumin PTH Intact Urine WBC (Auto) Urine Creatinine Urine Microalbumin Urine Total Protein Complement C3 Crossmatch 07/13/17 07/13/17 07/14/17 12:16 17:38 00:16 WBC RBC Hgb Hct MCV MCH MCHC RDW Plt Count Seg Neuts % (Manual) Lymphocytes % (Manual) Seg Neutrophils # Man Lymphocytes # (Manual) Monocytes # (Manual) Eosinophils # (Manual) Lupus Anticoagulant LA PTT Baseline POC ABG pH POC ABG pCO2 POC ABG pO2 Sodium Potassium Chloride Carbon Dioxide BUN Creatinine Glucose POC Glucose 141 H 144 H 152 H Lactic Acid Calcium Phosphorus Magnesium Iron TIBC Transferrin AST C-Reactive Protein Total Protein Albumin PTH Intact Urine WBC (Auto) Urine Creatinine Urine Microalbumin Urine Total Protein Complement C3 Crossmatch 07/14/17 07/14/17 07/14/17 06:11 09:35 12:52 WBC RBC Hgb Hct MCV MCH MCHC RDW Plt Count Seg Neuts % (Manual) Lymphocytes % (Manual) Seg Neutrophils # Man Lymphocytes # (Manual) Monocytes # (Manual) Eosinophils # (Manual) Lupus Anticoagulant LA PTT Baseline POC ABG pH POC ABG pCO2 POC ABG pO2 Sodium Potassium 3.5 L Chloride Carbon Dioxide BUN 21 H Creatinine Glucose 139 H POC Glucose 138 H 154 H Lactic Acid Calcium Phosphorus Magnesium 1.40 L Iron TIBC Transferrin AST 42 H C-Reactive Protein Total Protein 6.1 L Albumin 2.6 L PTH Intact Urine WBC (Auto) Urine Creatinine Urine Microalbumin Urine Total Protein Complement C3 Crossmatch 07/14/17 07/15/17 07/15/17 17:17 00:56 06:21 WBC RBC Hgb Hct MCV MCH MCHC RDW Plt Count Seg Neuts % (Manual) Lymphocytes % (Manual) Seg Neutrophils # Man Lymphocytes # (Manual) Monocytes # (Manual) Eosinophils # (Manual) Lupus Anticoagulant LA PTT Baseline POC ABG pH POC ABG pCO2 POC ABG pO2 Sodium Potassium Chloride Carbon Dioxide BUN Creatinine Glucose POC Glucose 133 H 144 H 137 H Lactic Acid Calcium Phosphorus Magnesium Iron TIBC Transferrin AST C-Reactive Protein Total Protein Albumin PTH Intact Urine WBC (Auto) Urine Creatinine Urine Microalbumin Urine Total Protein Complement C3 Crossmatch Allied health notes reviewed: RT
[2017-07-15] MEDS: LOPRESSOR IV PRN (13:33)
--- NOTE | 2017-07-15 13:42 | Progress Note ---
Assessment and Plan Assessment and plan: Patient is a 42-year-old female with no significant past medical history significant for hypertension which she takes lisinopril 10 mg daily. etoh abuse who pw abdominal pain and diarrhea 1. Severe Sepsis due to gangrenous bowel; sp removal of near complete small intestine; lifelong TPN for nutrition, completed abx per ID 2. EMMA secondary to vasomotor nephropathy with underlying ATN; resolved 3. Peritoneal irritation due to infected bowel 4. Severe Anemia, Transfuse as need 5. Ischemic/Gangrenous Bowel 6. Worsening luekocytosis 7. Symptomatic Anemia 8. Hypertensive urgency-resolved 9. Menorraghia secondary to Fibroids 10. Etoh use disorder 11. Right liver lesion ?Hemangioma 12. Multiple electrolyte abnormalities 13. Hypothermia-Resolved 14. Cocain abuse per hx. Not mentioned on admission. Only alcohol which was minimized. 15. 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 Acute respiratory failure on MV >96 hours; extubated 07/13, improving The high probability of a clinically significant, sudden or life threatening deterioration of the [GI, renal] system(s) required my full and direct attention , intervention and personal management. The aggregate critical care time was [35 ] minutes. This time is in addition to time spent performing reported procedures but includes the following: [X] Data Review and interpretation [X] Patient assessment and monitoring of vital signs [X] Documentation [X] Medication orders and management History Interval history: was extubated no vomiting, no agiation, no fever, no cough Hospitalist Physical - Physical exam Narrative exam: General appearance: Present: no acute distress - EENT Eyes: Present: PERRL ENT: clear oral mucosa - Neck Neck: Present: supple - Respiratory Respiratory effort: normal Respiratory: bilateral: CTA - Cardiovascular Rhythm: regular Heart Sounds: Present: S1 & S2 - Extremities Extremities: no ischemia Peripheral Pulses: within normal limits - Abdominal General gastrointestinal: soft, other (post surgical changes) - Integumentary Integumentary: Present: clear, warm, dry - Psychiatric Psychiatric: cooperative - Neurologic Neurologic: moves all extremities - Constitutional Vitals: Temp Pulse Resp BP Pulse Ox 98.9 F 121 H 22 183/92 97 07/15/17 12:26 07/15/17 12:26 07/15/17 12:26 07/15/17 12:26 07/15/17 08:41 Results - Labs CBC & Chem 7: 07/13/17 10:43 07/17/17 07:00 Labs: Laboratory Last Values WBC 18.3 K/mm3 (4.5-11.0) H 07/13/17 10:43 RBC 3.35 M/mm3 (3.65-5.03) L 07/13/17 10:43 Hgb 7.6 gm/dl (10.1-14.3) L 07/13/17 10:43 Hct 24.4 % (30.3-42.9) L 07/13/17 10:43 MCV 73 fl (79-97) L 07/13/17 10:43 MCH 23 pg (28-32) L 07/13/17 10:43 MCHC 31 % (30-34) 07/13/17 10:43 RDW 35.3 % (13.2-15.2) H 07/13/17 10:43 Plt Count 520 K/mm3 (140-440) H 07/13/17 10:43 Lymph % (Auto) Video System Repairer 07/03/17 05:28 Stokes % (Auto) Video System Repairer 07/03/17 05:28 Eos % (Auto) Video System Repairer 07/03/17 05:28 Baso % (Auto) Video System Repairer 07/03/17 05:28 Lymph # Video System Repairer 07/03/17 05:28 Stokes # Video System Repairer 07/03/17 05:28 Eos # Video System Repairer 07/03/17 05:28 Baso # Video System Repairer 07/03/17 05:28 Add Manual Diff Complete 07/13/17 10:43 Total Counted 100 07/13/17 10:43 Seg Neutrophils % Video System Repairer 07/05/17 08:21 Seg Neuts % (Manual) 81.0 % (40.0-70.0) H 07/13/17 10:43 Band Neutrophils % 0 % 07/13/17 10:43 Lymphocytes % (Manual) 12.0 % (13.4-35.0) L 07/13/17 10:43 Reactive Lymphs % (Man) 0 % 07/13/17 10:43 Monocytes % (Manual) 3.0 % (0.0-7.3) 07/13/17 10:43 Eosinophils % (Manual) 4.0 % (0.0-4.3) 07/13/17 10:43 Basophils % (Manual) 0 % (0.0-1.8) 07/13/17 10:43 Metamyelocytes % 0 % 07/13/17 10:43 Myelocytes % 0 % 07/13/17 10:43 Promyelocytes % 0 % 07/13/17 10:43 Blast Cells % 0 % 07/13/17 10:43 Nucleated RBC % Not Reportable 07/13/17 10:43 Seg Neutrophils # Video System Repairer 07/03/17 05:28 Seg Neutrophils # Man 14.8 K/mm3 (1.8-7.7) H 07/13/17 10:43 Band Neutrophils # 0.0 K/mm3 07/13/17 10:43 Lymphocytes # (Manual) 2.2 K/mm3 (1.2-5.4) 07/13/17 10:43 Abs React Lymphs (Man) 0.0 K/mm3 07/13/17 10:43 Monocytes # (Manual) 0.5 K/mm3 (0.0-0.8) 07/13/17 10:43 Eosinophils # (Manual) 0.7 K/mm3 (0.0-0.4) H 07/13/17 10:43 Basophils # (Manual) 0.0 K/mm3 (0.0-0.1) 07/13/17 10:43 Metamyelocytes # 0.0 K/mm3 07/13/17 10:43 Myelocytes # 0.0 K/mm3 07/13/17 10:43 Promyelocytes # 0.0 K/mm3 07/13/17 10:43 Blast Cells # 0.0 K/mm3 07/13/17 10:43 Pathologist Review 07/04/17 04:39 WBC Morphology Not Reportable 07/13/17 10:43 Hypersegmented Neuts Not Reportable 07/13/17 10:43 Hyposegmented Neuts Not Reportable 07/13/17 10:43 Hypogranular Neuts Not Reportable 07/13/17 10:43 Smudge Cells Not Reportable 07/13/17 10:43 Toxic Granulation Not Reportable 07/13/17 10:43 Toxic Vacuolation Not Reportable 07/13/17 10:43 Dohle Bodies Not Reportable 07/13/17 10:43 Pelger-Huet Anomaly Not Reportable 07/13/17 10:43 Irma Rods Not Reportable 07/13/17 10:43 Platelet Estimate Cons 07/13/17 10:43 Clumped Platelets Not Reportable 07/13/17 10:43 Plt Clumps, EDTA Not Reportable 07/13/17 10:43 Large Platelets Not Reportable 07/13/17 10:43 Giant Platelets Not Reportable 07/13/17 10:43 Platelet Satelliting Not Reportable 07/13/17 10:43 Plt Morphology Comment Not Reportable 07/13/17 10:43 RBC Morphology Not Reportable 07/13/17 10:43 Dimorphic RBCs Not Reportable 07/13/17 10:43 Polychromasia Not Reportable 07/13/17 10:43 Hypochromasia 2+ 07/13/17 10:43 Poikilocytosis 1+ 07/13/17 10:43 Anisocytosis 3+ 07/13/17 10:43 Microcytosis Not Reportable 07/13/17 10:43 Macrocytosis Not Reportable 07/13/17 10:43 Spherocytes Not Reportable 07/13/17 10:43 Pappenheimer Bodies Not Reportable 07/13/17 10:43 Sickle Cells Not Reportable 07/13/17 10:43 Target Cells Not Reportable 07/13/17 10:43 Tear Drop Cells Few 07/13/17 10:43 Ovalocytes 1+ 07/13/17 10:43 Helmet Cells Not Reportable 07/13/17 10:43 [place] Bodies Not Reportable 07/13/17 10:43 [place] Rings Not Reportable 07/13/17 10:43 Jamila Cells Not Reportable 07/13/17 10:43 Bite Cells Not Reportable 07/13/17 10:43 Crenated Cell Not Reportable 07/13/17 10:43 Elliptocytes Not Reportable 07/13/17 10:43 Acanthocytes (Spur) Not Reportable 07/13/17 10:43 Rouleaux Not Reportable 07/13/17 10:43 Hemoglobin C Crystals Not Reportable 07/13/17 10:43 Schistocytes Not Reportable 07/13/17 10:43 Malaria parasites Not Reportable 07/13/17 10:43 Roberto Bodies Not Reportable 07/13/17 10:43 Haptoglobin 204 mg/dL (43-212) 07/03/17 09:31 Hem Pathologist Commnt No 07/13/17 10:43 PT 12.5 Sec. (12.2-14.9) 07/03/17 06:19 INR 0.89 (0.87-1.13) 07/03/17 06:19 APTT 24.6 Sec. (24.2-36.6) 07/03/17 09:31 Fibrinogen 350 mg/dl (211-480) 07/03/17 09:31 Lupus Anticoagulant see below H 07/06/17 17:55 LA PTT Baseline 47 sec (<=40) H 07/06/17 17:55 dRVVT Confirm Interp Negative (Negative) 07/06/17 17:55 dRVVT Screen 50:50 See scanned report 07/06/17 17:55 dRVVT Mix Interpret See scanned report 07/06/17 17:55 POC ABG pH 7.459 (7.35-7.45) H 07/13/17 08:26 POC ABG pCO2 40.4 (35-45) 07/13/17 08:26 POC ABG pO2 99 (80-105) 07/13/17 08:26 POC ABG HCO3 28.6 07/13/17 08:26 POC ABG Total CO2 30 07/13/17 08:26 POC ABG O2 Sat 98 07/13/17 08:26 POC ABG Base Excess 5 07/13/17 08:26 VBG pH 7.372 (7.320-7.420) 07/03/17 06:19 FiO2 30 % 07/13/17 08:26 Sodium 141 mmol/L (137-145) 07/15/17 06:31 Potassium 3.9 mmol/L (3.6-5.0) 07/15/17 06:31 Chloride 102.6 mmol/L (98-107) 07/15/17 06:31 Carbon Dioxide 22 mmol/L (22-30) 07/15/17 06:31 Anion Gap 20 mmol/L 07/15/17 06:31 BUN 16 mg/dL (7-17) 07/15/17 06:31 Creatinine 0.9 mg/dL (0.7-1.2) 07/15/17 06:31 Estimated GFR > 60 ml/min 07/15/17 06:31 BUN/Creatinine Ratio 18 % 07/15/17 06:31 Glucose 89 mg/dL (65-100) 07/15/17 06:31 POC Glucose 145 (70-105) H 07/15/17 11:49 Lactic Acid 0.90 mmol/L (0.7-2.0) 07/06/17 07:28 Calcium 8.5 mg/dL (8.4-10.2) 07/15/17 06:31 Ionized Calcium 5.1 mg/dL (4.8-5.6) 07/07/17 12:21 Phosphorus 3.40 mg/dL (2.5-4.5) 07/15/17 06:31 Magnesium 1.70 mg/dL (1.7-2.3) 07/15/17 06:31 Iron 12 ug/dL (37-170) L 07/03/17 09:31 TIBC 534 mcg/dL (250-450) H 07/03/17 09:31 Transferrin 148 mg/dl (192-382) L 07/06/17 07:28 Ferritin 79.1 ng/mL (13.0-400.0) 07/06/17 07:28 Total Bilirubin 0.50 mg/dL (0.1-1.2) 07/14/17 09:35 AST 42 units/L (5-40) H 07/14/17 09:35 ALT 29 units/L (7-56) 07/14/17 09:35 Alkaline Phosphatase 105 units/L (35-129) 07/14/17 09:35 C-Reactive Protein 10.30 mg/dL (0.00-1.30) H 07/12/17 17:01 NT-Pro-B Natriuret Pep 114.4 pg/mL (0-450) 07/07/17 12:21 Total Protein 6.1 g/dL (6.3-8.2) L 07/14/17 09:35 Albumin 2.6 g/dL (3.9-5) L 07/14/17 09:35 Albumin/Globulin Ratio 0.7 % 07/14/17 09:35 Triglycerides 103 mg/dL (2-149) 07/05/17 22:04 Lipase 18 units/L (13-60) 07/03/17 05:28 TSH 0.561 mlU/mL (0.270-4.200) 07/04/17 14:38 HCG, Qual Negative (Negative) 07/03/17 06:19 HCG, Quant < 2 mIU/mL (0-4) 07/05/17 15:50 PTH Intact 285.9 pg/mL (15-65) H 07/06/17 07:28 Urine Color Yellow (Yellow) 07/05/17 Unknown Urine Turbidity Clear (Clear) 07/05/17 Unknown Urine pH 5.0 (5.0-7.0) 07/05/17 Unknown Ur Specific [place] 1.021 (1.003-1.030) 07/05/17 Unknown Urine Protein 100 mg/dl mg/dL (Negative) 07/05/17 Unknown Urine Glucose (UA) 50 mg/dL (Negative) 07/05/17 Unknown Urine Ketones Tr mg/dL (Negative) 07/05/17 Unknown Urine Blood Sm (Negative) 07/05/17 Unknown Urine Nitrite Neg (Negative) 07/05/17 Unknown Urine Bilirubin Neg (Negative) 07/05/17 Unknown Urine Urobilinogen < 2.0 mg/dL (<2.0) 07/05/17 Unknown Ur Leukocyte Esterase Tr (Negative) 07/05/17 Unknown Urine WBC (Auto) < 1.0 /HPF (0.0-6.0) 07/05/17 Unknown Urine RBC (Auto) 10.0 /HPF (0.0-6.0) 07/05/17 Unknown U Epithel Cells (Auto) 9.0 /HPF (0-13.0) 07/05/17 Unknown Urine Bacteria (Auto) 2+ /HPF (Negative) 07/05/17 Unknown Urine Mucus Few /HPF 07/03/17 Unknown Urine Eosinophils None seen (None Seen) 07/05/17 Unknown Urine Creatinine 237.2 mg/dL (0.1-20.0) H 07/05/17 Unknown Urine Microalbumin 39.9 mg/dL (0.1-34.0) H 07/05/17 Unknown Microalb/Creat Ratio 168.2 ug/mg 07/05/17 Unknown Urine Sodium 18 mmol/L 07/05/17 Unknown Urine Total Protein 170 mg/dL (5-11.8) H 07/05/17 Unknown [place] Screen Negative (Negative) 07/06/17 17:55 Proteinase 3 (PR3) Ab <1.0 AI (<1.0) 07/06/17 17:55 Myeloperoxidase Ab <1.0 AI (<1.0) 07/06/17 17:55 Complement C3 77 mg/dL (83-193) L 07/06/17 17:55 Complement C4 16 mg/dL (15-57) 07/06/17 17:55 Hepatitis A IgM Ab Non-reactive (NonReactive) 07/06/17 18:07 Hep Bs Antigen Non-reactive (Negative) 07/06/17 18:07 Hep B Core IgM Ab Non-reactive (NonReactive) 07/06/17 18:07 Hepatitis C Antibody Non-reactive (NonReactive) 07/06/17 18:07 HIV 1&2 Antibody Rapid Non react (Non React) 07/06/17 18:09 HIV P24 Antigen Non react (Non React) 07/06/17 18:09 Blood Type O POSITIVE 07/06/17 10:27 Antibody Screen Negative 07/06/17 10:27 Crossmatch See Detail 07/06/17 10:27
[2017-07-15] MEDS: DIOVAN PO SCH ×2 (17:14→22:00)
[2017-07-15] MEDS ORDERED: TPN ADULT 2,400 ML IV SCH (20:00)
[2017-07-15] MEDS: COREG PO SCH (22:00)
--- NOTE | 2017-07-15 22:39 | Progress Note ---
Assessment and Plan - Patient Problems (1) Ischemia, bowel Current Visit: Yes Status: Acute Plan to address problem: Pt stable. s/p enteroenterostomy and closure of abdominal wall - / - POD#6. - clear liquid diet as tolerated. Would keep in mind that with the short gut, even a small amount of PO intake may lead to diarrhea. Will have to find right amount through trial and error. - Will need to continue TPN indefintely. Can begin cycling at any time. - Incision looks good. No clinical signs to suggest anastomotic leak Please call with questions. Subjective Date of service: 07/15/17 Patient Reports: Positive: no new complaints, still having pain (but is much better than admission), tolerating liquids well, diarrhea. Negative: nausea, vomiting Objective Vital Signs - 12hr 07/15/17 07/15/17 07/15/17 11:32 11:40 11:50 Temperature Pulse Rate 76 79 78 Respiratory 17 17 13 Rate Blood Pressure 111/55 111/55 Blood Pressure [Right] O2 Sat by Pulse 100 100 Oximetry 07/15/17 07/15/17 07/15/17 12:26 16:38 16:44 Temperature 98.9 F 99.3 F Pulse Rate 121 H 109 H 88 Respiratory 22 20 Rate Blood Pressure 179/97 Blood Pressure 183/92 [Right] O2 Sat by Pulse 100 93 Oximetry - General physical appearance no distress, other (little more awake. Still appears very tired) - Respiratory normal expansion, normal respiratory effort - Abdomen soft, tender (incisional), distended (mild), not guarding, not rigid - Labs 07/13/17 10:43 07/15/17 06:31 Diabetes panel 07/15/17 Range/Units 06:31 Sodium 141 (137-145) mmol/L Potassium 3.9 (3.6-5.0) mmol/L Chloride 102.6 (98-107) mmol/L Carbon Dioxide 22 (22-30) mmol/L BUN 16 (7-17) mg/dL Creatinine 0.9 (0.7-1.2) mg/dL Glucose 89 (65-100) mg/dL Calcium 8.5 (8.4-10.2) mg/dL Calcium panel 07/15/17 Range/Units 06:31 Calcium 8.5 (8.4-10.2) mg/dL Phosphorus 3.40 (2.5-4.5) mg/dL Pituitary panel 07/15/17 Range/Units 06:31 Sodium 141 (137-145) mmol/L Potassium 3.9 (3.6-5.0) mmol/L Chloride 102.6 (98-107) mmol/L Carbon Dioxide 22 (22-30) mmol/L BUN 16 (7-17) mg/dL Creatinine 0.9 (0.7-1.2) mg/dL Glucose 89 (65-100) mg/dL Calcium 8.5 (8.4-10.2) mg/dL Adrenal panel 07/15/17 Range/Units 06:31 Sodium 141 (137-145) mmol/L Potassium 3.9 (3.6-5.0) mmol/L Chloride 102.6 (98-107) mmol/L Carbon Dioxide 22 (22-30) mmol/L BUN 16 (7-17) mg/dL Creatinine 0.9 (0.7-1.2) mg/dL Glucose 89 (65-100) mg/dL Calcium 8.5 (8.4-10.2) mg/dL
[2017-07-16] MEDS: NORMODYNE IV PRN (04:11)
[2017-07-16] MEDS: ZOSYN/NS 4.5GM/100ML 4.5 GM/100 ML VIAL IV SCH ×3 (06:28→23:14)
[2017-07-16] MEDS: HEPARIN SUB-Q SCH ×3 (06:31→22:36)
[2017-07-16 07:34] LABS: BUN/Creatinine Ratio 20; Blood Urea Nitrogen 18 mg/dL (7-17); Calcium 8.2 mg/dL (8.4-10.2); Hemolysis Index 0
[2017-07-16] MEDS: MORPHINE IV PRN ×4 (08:00→22:34)
--- NOTE | 2017-07-16 08:46 | XRay Report ---
Portable chest: Comparison is made to the exam of July 15. Minimal hazy increased density is still present at the lower half of the right lung however improved compared to prior exam. The lungs localize are clear. The heart is grossly normal for positioning. There is no vascular congestion. A left PICC line is well-positioned. Impression: Improving right lower lung opacity possibly representing lung edema.
[2017-07-16] MEDS: COREG PO SCH ×2 (10:15→22:30)
--- NOTE | 2017-07-16 11:06 | Progress Note ---
Assessment and Plan Postoperative respiratory failure, s/p mechanical ventilatory support Sepsis syndrome. Ischemic bowel, possibly secondary to embolic event vs related to drug abuse H/O Cocaine use with possibility of arterial spasm. Acute kidney injury. Leukocytosis. Uncontrolled hypertension. Severe anemia. Drug abuse. Alcohol abuse -Continue all current care -Nutritional support -PT/OT -Increase activity -TPN -VTE prophyalxis -Substance abuse counselling done at the bedside -Antibiotics per ID -Wean oxygen for O2 sats>90% Subjective Date of service: 07/16/17 Principal diagnosis: Post-Op Resp Failure on MVS; Ischemic Bowel s/p Ex-Lap; EMMA Interval history: Follow up: Sepsis, severe anemia, malignant hypertension, abdominal pain Seen and examined at bedside; 24hour events reviewed with nursing staff Blood pressure controlled Tolerating some liquid diet. States she feels great, was able to have a bowel movement today. No fevers or chills, no nausea or vomiting No abdominal pain Objective Vital Signs - 12hr 07/15/17 07/16/17 07/16/17 23:44 04:11 07:11 Temperature 99.1 F 99.2 F Pulse Rate 103 H 97 H Respiratory 20 20 Rate Blood Pressure 182/84 182/84 165/74 O2 Sat by Pulse 99 Oximetry Constitutional: no acute distress, alert Eyes: non-icteric ENT: oropharynx moist Neck: supple, no lymphadenopathy, no JVD, other (no thyromegaly) Effort: normal Ascultation: Bilateral: diminished breath sounds (bases) Percussion: Bilateral: not dull Cardiovascular: regular rate and rhythm, other (No R/M) Gastrointestinal: hypoactive bowel sounds, non-distended, other (no palpable HSM ; clean dry wound site with marilyn) Integumentary: normal Extremities: no cyanosis, no edema, pulses normal, no ischemia or petechiae Neurologic: normal mental status, non-focal exam, pupils equal and round, CN II- XII normal, motor strength normal and Psychiatric: mood appropriate, affect normal, anxious CBC and BMP: 07/17/17 12:30 07/18/17 09:10 ABG, PT/INR, D-dimer: ABG POC ABG pH 7.459 (7.35-7.45) H 07/13/17 08:26 POC ABG pCO2 40.4 (35-45) 07/13/17 08:26 POC ABG pO2 99 (80-105) 07/13/17 08:26 POC ABG HCO3 28.6 07/13/17 08:26 POC ABG Total CO2 30 07/13/17 08:26 POC ABG O2 Sat 98 07/13/17 08:26 PT/INR, D-dimer PT 12.5 Sec. (12.2-14.9) 07/03/17 06:19 INR 0.89 (0.87-1.13) 07/03/17 06:19 Abnormal lab findings: Abnormal Labs 07/03/17 07/03/17 07/03/17 05:11 05:28 05:28 WBC 12.9 H RBC Hgb 5.6 L* Hct 22.3 L MCV 59 L MCH 15 L MCHC 25 L RDW 33.3 H Plt Count 125 L Seg Neuts % (Manual) 75.0 H Lymphocytes % (Manual) Seg Neutrophils # Man 9.7 H Lymphocytes # (Manual) Monocytes # (Manual) Eosinophils # (Manual) Lupus Anticoagulant LA PTT Baseline POC ABG pH POC ABG pCO2 POC ABG pO2 Sodium Potassium 3.0 L Chloride Carbon Dioxide BUN Creatinine 0.6 L Glucose 220 H POC Glucose 188 H Lactic Acid Calcium Phosphorus Magnesium Iron TIBC Transferrin AST C-Reactive Protein Total Protein Albumin PTH Intact Urine WBC (Auto) Urine Creatinine Urine Microalbumin Urine Total Protein Complement C3 Crossmatch 07/03/17 07/03/17 07/03/17 06:19 06:35 08:42 WBC RBC Hgb Hct MCV MCH MCHC RDW Plt Count Seg Neuts % (Manual) Lymphocytes % (Manual) Seg Neutrophils # Man Lymphocytes # (Manual) Monocytes # (Manual) Eosinophils # (Manual) Lupus Anticoagulant LA PTT Baseline POC ABG pH POC ABG pCO2 POC ABG pO2 Sodium Potassium Chloride Carbon Dioxide BUN Creatinine Glucose POC Glucose Lactic Acid 2.50 H* 2.20 H* Calcium Phosphorus Magnesium Iron TIBC Transferrin AST C-Reactive Protein Total Protein Albumin PTH Intact Urine WBC (Auto) Urine Creatinine Urine Microalbumin Urine Total Protein Complement C3 Crossmatch See Detail 07/03/17 07/03/17 07/03/17 09:31 09:31 11:50 WBC RBC Hgb 5.7 L* Hct 22.4 L MCV MCH MCHC RDW Plt Count Seg Neuts % (Manual) Lymphocytes % (Manual) Seg Neutrophils # Man Lymphocytes # (Manual) Monocytes # (Manual) Eosinophils # (Manual) Lupus Anticoagulant LA PTT Baseline POC ABG pH POC ABG pCO2 POC ABG pO2 Sodium Potassium Chloride Carbon Dioxide BUN Creatinine Glucose POC Glucose Lactic Acid 2.80 H* Calcium Phosphorus Magnesium Iron 12 L TIBC 534 H Transferrin AST C-Reactive Protein Total Protein Albumin PTH Intact Urine WBC (Auto) Urine Creatinine Urine Microalbumin Urine Total Protein Complement C3 Crossmatch 07/03/17 07/03/17 07/03/17 16:50 16:50 Unknown WBC RBC Hgb 9.7 L D Hct MCV MCH MCHC RDW Plt Count Seg Neuts % (Manual) Lymphocytes % (Manual) Seg Neutrophils # Man Lymphocytes # (Manual) Monocytes # (Manual) Eosinophils # (Manual) Lupus Anticoagulant LA PTT Baseline POC ABG pH POC ABG pCO2 POC ABG pO2 Sodium Potassium Chloride Carbon Dioxide BUN Creatinine Glucose POC Glucose Lactic Acid 2.30 H* Calcium Phosphorus Magnesium Iron TIBC Transferrin AST C-Reactive Protein Total Protein Albumin PTH Intact Urine WBC (Auto) 18.0 H Urine Creatinine Urine Microalbumin Urine Total Protein Complement C3 Crossmatch 07/04/17 07/04/17 07/04/17 03:57 03:57 04:39 WBC 42.4 H* 42.8 H* RBC Hgb 9.1 L 9.3 L Hct MCV 65 L 66 L MCH 19 L 20 L MCHC 29 L RDW 37.3 H 37.3 H Plt Count 120 L Seg Neuts % (Manual) 93.5 H Lymphocytes % (Manual) 2.5 L Seg Neutrophils # Man 40.0 H Lymphocytes # (Manual) 1.1 L Monocytes # (Manual) 1.1 H Eosinophils # (Manual) Lupus Anticoagulant LA PTT Baseline POC ABG pH POC ABG pCO2 POC ABG pO2 Sodium 134 L Potassium 3.5 L Chloride 95.4 L Carbon Dioxide 21 L BUN 6 L Creatinine 0.5 L Glucose 147 H POC Glucose Lactic Acid Calcium 7.9 L Phosphorus Magnesium Iron TIBC Transferrin AST C-Reactive Protein Total Protein Albumin PTH Intact Urine WBC (Auto) Urine Creatinine Urine Microalbumin Urine Total Protein Complement C3 Crossmatch 07/04/17 07/04/17 07/05/17 12:09 17:11 08:21 WBC 56.3 H* RBC Hgb 8.3 L Hct 29.1 L MCV 66 L MCH 19 L MCHC 28 L RDW 38.3 H Plt Count Seg Neuts % (Manual) 96.5 H Lymphocytes % (Manual) 1.0 L Seg Neutrophils # Man 54.3 H Lymphocytes # (Manual) 0.6 L Monocytes # (Manual) 1.4 H Eosinophils # (Manual) Lupus Anticoagulant LA PTT Baseline POC ABG pH POC ABG pCO2 POC ABG pO2 Sodium Potassium Chloride Carbon Dioxide BUN Creatinine Glucose POC Glucose 169 H 124 H Lactic Acid Calcium Phosphorus Magnesium Iron TIBC Transferrin AST C-Reactive Protein Total Protein Albumin PTH Intact Urine WBC (Auto) Urine Creatinine Urine Microalbumin Urine Total Protein Complement C3 Crossmatch 07/05/17 07/05/17 07/05/17 08:21 10:55 22:34 WBC RBC Hgb Hct MCV MCH MCHC RDW Plt Count Seg Neuts % (Manual) Lymphocytes % (Manual) Seg Neutrophils # Man Lymphocytes # (Manual) Monocytes # (Manual) Eosinophils # (Manual) Lupus Anticoagulant LA PTT Baseline POC ABG pH 7.185 L POC ABG pCO2 33.8 L POC ABG pO2 Sodium 135 L 135 L Potassium Chloride Carbon Dioxide 18 L 16 L BUN 25 H 27 H Creatinine 2.7 H D 2.9 H Glucose 115 H 119 H POC Glucose Lactic Acid Calcium 7.9 L 8.0 L Phosphorus Magnesium Iron TIBC Transferrin AST C-Reactive Protein Total Protein Albumin PTH Intact Urine WBC (Auto) Urine Creatinine Urine Microalbumin Urine Total Protein Complement C3 Crossmatch 07/05/17 07/06/17 07/06/17 Unknown 05:17 07:28 WBC RBC Hgb Hct MCV MCH MCHC RDW Plt Count Seg Neuts % (Manual) Lymphocytes % (Manual) Seg Neutrophils # Man Lymphocytes # (Manual) Monocytes # (Manual) Eosinophils # (Manual) Lupus Anticoagulant LA PTT Baseline POC ABG pH POC ABG pCO2 28.0 L POC ABG pO2 193 H Sodium Potassium Chloride 112.6 H Carbon Dioxide 15 L BUN 35 H Creatinine 4.0 H Glucose POC Glucose Lactic Acid Calcium 5.8 L* D Phosphorus Magnesium 1.20 L Iron TIBC Transferrin 148 L AST C-Reactive Protein Total Protein Albumin PTH Intact Urine WBC (Auto) Urine Creatinine 237.2 H Urine Microalbumin 39.9 H Urine Total Protein 170 H Complement C3 Crossmatch 07/06/17 07/06/17 07/06/17 07:28 07:28 10:27 WBC 28.9 H RBC Hgb 7.1 L Hct 24.5 L MCV 66 L MCH 19 L MCHC 29 L RDW 38.6 H Plt Count Seg Neuts % (Manual) Lymphocytes % (Manual) Seg Neutrophils # Man Lymphocytes # (Manual) Monocytes # (Manual) Eosinophils # (Manual) Lupus Anticoagulant LA PTT Baseline POC ABG pH POC ABG pCO2 POC ABG pO2 Sodium Potassium Chloride Carbon Dioxide BUN Creatinine Glucose POC Glucose Lactic Acid Calcium Phosphorus Magnesium Iron TIBC Transferrin AST C-Reactive Protein Total Protein Albumin PTH Intact 285.9 H Urine WBC (Auto) Urine Creatinine Urine Microalbumin Urine Total Protein Complement C3 Crossmatch See Detail 07/06/17 07/06/17 07/06/17 17:55 17:55 18:08 WBC RBC Hgb Hct MCV MCH MCHC RDW Plt Count Seg Neuts % (Manual) Lymphocytes % (Manual) Seg Neutrophils # Man Lymphocytes # (Manual) Monocytes # (Manual) Eosinophils # (Manual) Lupus Anticoagulant see below H LA PTT Baseline 47 H POC ABG pH POC ABG pCO2 POC ABG pO2 Sodium Potassium Chloride Carbon Dioxide BUN Creatinine Glucose POC Glucose Lactic Acid Calcium Phosphorus Magnesium Iron TIBC Transferrin AST C-Reactive Protein 26.20 H Total Protein Albumin PTH Intact Urine WBC (Auto) Urine Creatinine Urine Microalbumin Urine Total Protein Complement C3 77 L Crossmatch 07/07/17 07/07/17 07/07/17 04:18 05:59 05:59 WBC 24.9 H RBC Hgb 8.8 L Hct 28.0 L MCV 72 L MCH 23 L MCHC RDW 33.3 H Plt Count Seg Neuts % (Manual) Lymphocytes % (Manual) Seg Neutrophils # Man Lymphocytes # (Manual) Monocytes # (Manual) Eosinophils # (Manual) Lupus Anticoagulant LA PTT Baseline POC ABG pH POC ABG pCO2 27.5 L POC ABG pO2 61 L Sodium Potassium Chloride Carbon Dioxide 17 L BUN 46 H Creatinine 4.8 H Glucose 103 H POC Glucose Lactic Acid Calcium 7.6 L D Phosphorus Magnesium Iron TIBC Transferrin AST C-Reactive Protein Total Protein Albumin PTH Intact Urine WBC (Auto) Urine Creatinine Urine Microalbumin Urine Total Protein Complement C3 Crossmatch 07/07/17 07/08/17 07/08/17 05:59 04:22 04:22 WBC 21.3 H RBC Hgb 8.9 L Hct 27.5 L MCV 71 L MCH 23 L MCHC RDW 35.0 H Plt Count Seg Neuts % (Manual) Lymphocytes % (Manual) Seg Neutrophils # Man Lymphocytes # (Manual) Monocytes # (Manual) Eosinophils # (Manual) Lupus Anticoagulant LA PTT Baseline POC ABG pH POC ABG pCO2 POC ABG pO2 Sodium Potassium Chloride Carbon Dioxide 18 L BUN 56 H Creatinine 4.3 H Glucose 110 H POC Glucose Lactic Acid Calcium 8.3 L Phosphorus Magnesium 2.50 H Iron TIBC Transferrin AST C-Reactive Protein Total Protein Albumin PTH Intact Urine WBC (Auto) Urine Creatinine Urine Microalbumin Urine Total Protein Complement C3 Crossmatch 07/08/17 07/08/17 07/08/17 04:22 05:40 12:36 WBC RBC Hgb Hct MCV MCH MCHC RDW Plt Count Seg Neuts % (Manual) Lymphocytes % (Manual) Seg Neutrophils # Man Lymphocytes # (Manual) Monocytes # (Manual) Eosinophils # (Manual) Lupus Anticoagulant LA PTT Baseline POC ABG pH POC ABG pCO2 POC ABG pO2 158 H Sodium Potassium Chloride Carbon Dioxide BUN Creatinine Glucose POC Glucose 109 H Lactic Acid Calcium Phosphorus 4.80 H Magnesium 2.60 H Iron TIBC Transferrin AST C-Reactive Protein Total Protein Albumin PTH Intact Urine WBC (Auto) Urine Creatinine Urine Microalbumin Urine Total Protein Complement C3 Crossmatch 07/09/17 07/09/17 07/09/17 04:30 04:30 04:51 WBC RBC Hgb Hct MCV MCH MCHC RDW Plt Count Seg Neuts % (Manual) Lymphocytes % (Manual) Seg Neutrophils # Man Lymphocytes # (Manual) Monocytes # (Manual) Eosinophils # (Manual) Lupus Anticoagulant LA PTT Baseline POC ABG pH 7.522 H POC ABG pCO2 POC ABG pO2 67 L Sodium Potassium 3.2 L D Chloride 96.3 L Carbon Dioxide BUN 60 H Creatinine 3.6 H Glucose 115 H POC Glucose Lactic Acid Calcium Phosphorus 4.80 H Magnesium Iron TIBC Transferrin AST C-Reactive Protein Total Protein Albumin PTH Intact Urine WBC (Auto) Urine Creatinine Urine Microalbumin Urine Total Protein Complement C3 Crossmatch 07/09/17 07/09/17 07/09/17 12:26 17:51 23:48 WBC RBC Hgb Hct MCV MCH MCHC RDW Plt Count Seg Neuts % (Manual) Lymphocytes % (Manual) Seg Neutrophils # Man Lymphocytes # (Manual) Monocytes # (Manual) Eosinophils # (Manual) Lupus Anticoagulant LA PTT Baseline POC ABG pH POC ABG pCO2 POC ABG pO2 Sodium Potassium Chloride Carbon Dioxide BUN Creatinine Glucose POC Glucose 140 H 152 H 149 H Lactic Acid Calcium Phosphorus Magnesium Iron TIBC Transferrin AST C-Reactive Protein Total Protein Albumin PTH Intact Urine WBC (Auto) Urine Creatinine Urine Microalbumin Urine Total Protein Complement C3 Crossmatch 07/10/17 07/10/17 07/10/17 03:33 05:30 05:30 WBC 24.0 H RBC Hgb 9.0 L Hct 29.3 L MCV 69 L MCH 21 L MCHC RDW 35.9 H Plt Count 451 H Seg Neuts % (Manual) Lymphocytes % (Manual) Seg Neutrophils # Man Lymphocytes # (Manual) Monocytes # (Manual) Eosinophils # (Manual) Lupus Anticoagulant LA PTT Baseline POC ABG pH 7.593 H POC ABG pCO2 34.7 L POC ABG pO2 73 L Sodium Potassium Chloride 96.8 L Carbon Dioxide 31 H BUN 61 H Creatinine 2.9 H Glucose 120 H POC Glucose Lactic Acid Calcium Phosphorus 5.20 H Magnesium Iron TIBC Transferrin AST C-Reactive Protein Total Protein Albumin PTH Intact Urine WBC (Auto) Urine Creatinine Urine Microalbumin Urine Total Protein Complement C3 Crossmatch 07/10/17 07/10/17 07/10/17 12:19 17:59 23:51 WBC RBC Hgb Hct MCV MCH MCHC RDW Plt Count Seg Neuts % (Manual) Lymphocytes % (Manual) Seg Neutrophils # Man Lymphocytes # (Manual) Monocytes # (Manual) Eosinophils # (Manual) Lupus Anticoagulant LA PTT Baseline POC ABG pH POC ABG pCO2 POC ABG pO2 Sodium Potassium Chloride Carbon Dioxide BUN Creatinine Glucose POC Glucose 143 H 147 H 139 H Lactic Acid Calcium Phosphorus Magnesium Iron TIBC Transferrin AST C-Reactive Protein Total Protein Albumin PTH Intact Urine WBC (Auto) Urine Creatinine Urine Microalbumin Urine Total Protein Complement C3 Crossmatch 07/11/17 07/11/17 07/11/17 06:30 06:30 06:30 WBC 20.2 H RBC Hgb 8.4 L Hct 26.0 L MCV 71 L MCH 23 L MCHC RDW 35.6 H Plt Count 469 H Seg Neuts % (Manual) Lymphocytes % (Manual) Seg Neutrophils # Man Lymphocytes # (Manual) Monocytes # (Manual) Eosinophils # (Manual) Lupus Anticoagulant LA PTT Baseline POC ABG pH POC ABG pCO2 POC ABG pO2 Sodium Potassium Chloride Carbon Dioxide 32 H BUN 58 H Creatinine 2.4 H Glucose 111 H POC Glucose Lactic Acid Calcium Phosphorus 6.10 H Magnesium 1.60 L Iron TIBC Transferrin AST C-Reactive Protein Total Protein Albumin PTH Intact Urine WBC (Auto) Urine Creatinine Urine Microalbumin Urine Total Protein Complement C3 Crossmatch 07/11/17 07/11/17 07/11/17 08:54 12:47 17:33 WBC RBC Hgb Hct MCV MCH MCHC RDW Plt Count Seg Neuts % (Manual) Lymphocytes % (Manual) Seg Neutrophils # Man Lymphocytes # (Manual) Monocytes # (Manual) Eosinophils # (Manual) Lupus Anticoagulant LA PTT Baseline POC ABG pH 7.485 H POC ABG pCO2 POC ABG pO2 Sodium Potassium Chloride Carbon Dioxide BUN Creatinine Glucose POC Glucose 168 H 151 H Lactic Acid Calcium Phosphorus Magnesium Iron TIBC Transferrin AST C-Reactive Protein Total Protein Albumin PTH Intact Urine WBC (Auto) Urine Creatinine Urine Microalbumin Urine Total Protein Complement C3 Crossmatch 07/11/17 07/12/17 07/12/17 23:52 05:39 06:25 WBC RBC Hgb Hct MCV MCH MCHC RDW Plt Count Seg Neuts % (Manual) Lymphocytes % (Manual) Seg Neutrophils # Man Lymphocytes # (Manual) Monocytes # (Manual) Eosinophils # (Manual) Lupus Anticoagulant LA PTT Baseline POC ABG pH POC ABG pCO2 POC ABG pO2 Sodium Potassium Chloride Carbon Dioxide BUN 43 H Creatinine 1.8 H Glucose 138 H POC Glucose 156 H 146 H Lactic Acid Calcium Phosphorus 5.90 H Magnesium Iron TIBC Transferrin AST C-Reactive Protein Total Protein Albumin PTH Intact Urine WBC (Auto) Urine Creatinine Urine Microalbumin Urine Total Protein Complement C3 Crossmatch 07/12/17 07/12/17 07/12/17 11:46 12:14 17:01 WBC RBC Hgb Hct MCV MCH MCHC RDW Plt Count Seg Neuts % (Manual) Lymphocytes % (Manual) Seg Neutrophils # Man Lymphocytes # (Manual) Monocytes # (Manual) Eosinophils # (Manual) Lupus Anticoagulant LA PTT Baseline POC ABG pH 7.477 H POC ABG pCO2 POC ABG pO2 Sodium Potassium Chloride Carbon Dioxide BUN Creatinine Glucose POC Glucose 156 H Lactic Acid Calcium Phosphorus Magnesium Iron TIBC Transferrin AST C-Reactive Protein 10.30 H Total Protein Albumin PTH Intact Urine WBC (Auto) Urine Creatinine Urine Microalbumin Urine Total Protein Complement C3 Crossmatch 07/12/17 07/12/1718 18:03 23:47 05:53 WBC RBC Hgb Hct MCV MCH MCHC RDW Plt Count Seg Neuts % (Manual) Lymphocytes % (Manual) Seg Neutrophils # Man Lymphocytes # (Manual) Monocytes # (Manual) Eosinophils # (Manual) Lupus Anticoagulant LA PTT Baseline POC ABG pH POC ABG pCO2 POC ABG pO2 Sodium Potassium Chloride Carbon Dioxide BUN Creatinine Glucose POC Glucose 140 H 158 H 137 H Lactic Acid Calcium Phosphorus Magnesium Iron TIBC Transferrin AST C-Reactive Protein Total Protein Albumin PTH Intact Urine WBC (Auto) Urine Creatinine Urine Microalbumin Urine Total Protein Complement C3 Crossmatch 07/13/17 07/13/17 07/13/17 06:15 08:26 10:43 WBC 18.3 H RBC 3.35 L Hgb 7.6 L Hct 24.4 L MCV 73 L MCH 23 L MCHC RDW 35.3 H Plt Count 520 H Seg Neuts % (Manual) 81.0 H Lymphocytes % (Manual) 12.0 L Seg Neutrophils # Man 14.8 H Lymphocytes # (Manual) Monocytes # (Manual) Eosinophils # (Manual) 0.7 H Lupus Anticoagulant LA PTT Baseline POC ABG pH 7.459 H POC ABG pCO2 POC ABG pO2 Sodium 149 H Potassium Chloride Carbon Dioxide BUN 31 H Creatinine 1.3 H Glucose 112 H POC Glucose Lactic Acid Calcium Phosphorus 5.10 H Magnesium 1.60 L Iron TIBC Transferrin AST C-Reactive Protein Total Protein Albumin PTH Intact Urine WBC (Auto) Urine Creatinine Urine Microalbumin Urine Total Protein Complement C3 Crossmatch 07/13/17 07/13/17 07/14/17 12:16 17:38 00:16 WBC RBC Hgb Hct MCV MCH MCHC RDW Plt Count Seg Neuts % (Manual) Lymphocytes % (Manual) Seg Neutrophils # Man Lymphocytes # (Manual) Monocytes # (Manual) Eosinophils # (Manual) Lupus Anticoagulant LA PTT Baseline POC ABG pH POC ABG pCO2 POC ABG pO2 Sodium Potassium Chloride Carbon Dioxide BUN Creatinine Glucose POC Glucose 141 H 144 H 152 H Lactic Acid Calcium Phosphorus Magnesium Iron TIBC Transferrin AST C-Reactive Protein Total Protein Albumin PTH Intact Urine WBC (Auto) Urine Creatinine Urine Microalbumin Urine Total Protein Complement C3 Crossmatch 07/14/17 07/14/17 07/14/17 06:11 09:35 12:52 WBC RBC Hgb Hct MCV MCH MCHC RDW Plt Count Seg Neuts % (Manual) Lymphocytes % (Manual) Seg Neutrophils # Man Lymphocytes # (Manual) Monocytes # (Manual) Eosinophils # (Manual) Lupus Anticoagulant LA PTT Baseline POC ABG pH POC ABG pCO2 POC ABG pO2 Sodium Potassium 3.5 L Chloride Carbon Dioxide BUN 21 H Creatinine Glucose 139 H POC Glucose 138 H 154 H Lactic Acid Calcium Phosphorus Magnesium 1.40 L Iron TIBC Transferrin AST 42 H C-Reactive Protein Total Protein 6.1 L Albumin 2.6 L PTH Intact Urine WBC (Auto) Urine Creatinine Urine Microalbumin Urine Total Protein Complement C3 Crossmatch 07/14/17 07/15/17 07/15/17 17:17 00:56 06:21 WBC RBC Hgb Hct MCV MCH MCHC RDW Plt Count Seg Neuts % (Manual) Lymphocytes % (Manual) Seg Neutrophils # Man Lymphocytes # (Manual) Monocytes # (Manual) Eosinophils # (Manual) Lupus Anticoagulant LA PTT Baseline POC ABG pH POC ABG pCO2 POC ABG pO2 Sodium Potassium Chloride Carbon Dioxide BUN Creatinine Glucose POC Glucose 133 H 144 H 137 H Lactic Acid Calcium Phosphorus Magnesium Iron TIBC Transferrin AST C-Reactive Protein Total Protein Albumin PTH Intact Urine WBC (Auto) Urine Creatinine Urine Microalbumin Urine Total Protein Complement C3 Crossmatch 07/15/17 07/15/17 07/15/17 11:49 16:49 22:19 WBC RBC Hgb Hct MCV MCH MCHC RDW Plt Count Seg Neuts % (Manual) Lymphocytes % (Manual) Seg Neutrophils # Man Lymphocytes # (Manual) Monocytes # (Manual) Eosinophils # (Manual) Lupus Anticoagulant LA PTT Baseline POC ABG pH POC ABG pCO2 POC ABG pO2 Sodium Potassium Chloride Carbon Dioxide BUN Creatinine Glucose POC Glucose 145 H 141 H 136 H Lactic Acid Calcium Phosphorus Magnesium Iron TIBC Transferrin AST C-Reactive Protein Total Protein Albumin PTH Intact Urine WBC (Auto) Urine Creatinine Urine Microalbumin Urine Total Protein Complement C3 Crossmatch 07/16/17 07/16/17 05:24 07:07 WBC RBC Hgb Hct MCV MCH MCHC RDW Plt Count Seg Neuts % (Manual) Lymphocytes % (Manual) Seg Neutrophils # Man Lymphocytes # (Manual) Monocytes # (Manual) Eosinophils # (Manual) Lupus Anticoagulant LA PTT Baseline POC ABG pH POC ABG pCO2 POC ABG pO2 Sodium Potassium Chloride 107.1 H Carbon Dioxide 20 L BUN 18 H Creatinine Glucose 125 H POC Glucose 147 H Lactic Acid Calcium 8.2 L Phosphorus Magnesium Iron TIBC Transferrin AST C-Reactive Protein Total Protein Albumin PTH Intact Urine WBC (Auto) Urine Creatinine Urine Microalbumin Urine Total Protein Complement C3 Crossmatch Allied health notes reviewed: RT
--- NOTE | 2017-07-16 12:03 | Progress Note ---
Assessment and Plan Assessment and plan: Patient is a 42-year-old female with no significant past medical history significant for hypertension which she takes lisinopril 10 mg daily. etoh abuse who pw abdominal pain and diarrhea 1. Severe Sepsis due to gangrenous bowel; sp removal of near complete small intestine; lifelong TPN for nutrition, completed abx per ID 2. EMMA secondary to vasomotor nephropathy with underlying ATN; resolved 3. Peritoneal irritation due to infected bowel 4. Severe Anemia, Transfuse as need 5. Ischemic/Gangrenous Bowel 6. Worsening luekocytosis 7. Symptomatic Anemia 8. Hypertensive urgency-resolved 9. Menorraghia secondary to Fibroids 10. Etoh use disorder 11. Right liver lesion ?Hemangioma 12. Multiple electrolyte abnormalities 13. Hypothermia-Resolved 14. Cocain abuse per hx. Not mentioned on admission. Only alcohol which was minimized. 15. 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 Acute respiratory failure on MV >96 hours; extubated 07/13, improving case dw CM; she has no paysource and needs to be dc on TPN, awaiting insurance application History Interval history: was extubated no vomiting, no agiation, no fever, no cough Hospitalist Physical - Physical exam Narrative exam: General appearance: Present: no acute distress - EENT Eyes: Present: PERRL ENT: clear oral mucosa - Neck Neck: Present: supple - Respiratory Respiratory effort: normal Respiratory: bilateral: CTA - Cardiovascular Rhythm: regular Heart Sounds: Present: S1 & S2 - Extremities Extremities: no ischemia Peripheral Pulses: within normal limits - Abdominal General gastrointestinal: soft, other (post surgical changes) - Integumentary Integumentary: Present: clear, warm, dry - Psychiatric Psychiatric: cooperative - Neurologic Neurologic: moves all extremities - Constitutional Vitals: Temp Pulse Resp BP Pulse Ox 99.2 F 97 H 20 165/74 99 07/16/17 07:11 07/16/17 07:11 07/16/17 07:11 07/16/17 07:11 07/16/17 07:11 Results - Labs CBC & Chem 7: 07/13/17 10:43 07/17/17 07:00 Labs: Laboratory Last Values WBC 18.3 K/mm3 (4.5-11.0) H 07/13/17 10:43 RBC 3.35 M/mm3 (3.65-5.03) L 07/13/17 10:43 Hgb 7.6 gm/dl (10.1-14.3) L 07/13/17 10:43 Hct 24.4 % (30.3-42.9) L 07/13/17 10:43 MCV 73 fl (79-97) L 07/13/17 10:43 MCH 23 pg (28-32) L 07/13/17 10:43 MCHC 31 % (30-34) 07/13/17 10:43 RDW 35.3 % (13.2-15.2) H 07/13/17 10:43 Plt Count 520 K/mm3 (140-440) H 07/13/17 10:43 Lymph % (Auto) Speech Language Assistant 07/03/17 05:28 [place] % (Auto) Speech Language Assistant 07/03/17 05:28 Eos % (Auto) Speech Language Assistant 07/03/17 05:28 Baso % (Auto) Speech Language Assistant 07/03/17 05:28 Lymph # Speech Language Assistant 07/03/17 05:28 [place] # Speech Language Assistant 07/03/17 05:28 Eos # Speech Language Assistant 07/03/17 05:28 Baso # Speech Language Assistant 07/03/17 05:28 Add Manual Diff Complete 07/13/17 10:43 Total Counted 100 07/13/17 10:43 Seg Neutrophils % Speech Language Assistant 07/05/17 08:21 Seg Neuts % (Manual) 81.0 % (40.0-70.0) H 07/13/17 10:43 Band Neutrophils % 0 % 07/13/17 10:43 Lymphocytes % (Manual) 12.0 % (13.4-35.0) L 07/13/17 10:43 Reactive Lymphs % (Man) 0 % 07/13/17 10:43 Monocytes % (Manual) 3.0 % (0.0-7.3) 07/13/17 10:43 Eosinophils % (Manual) 4.0 % (0.0-4.3) 07/13/17 10:43 Basophils % (Manual) 0 % (0.0-1.8) 07/13/17 10:43 Metamyelocytes % 0 % 07/13/17 10:43 Myelocytes % 0 % 07/13/17 10:43 Promyelocytes % 0 % 07/13/17 10:43 Blast Cells % 0 % 07/13/17 10:43 Nucleated RBC % Not Reportable 07/13/17 10:43 Seg Neutrophils # Speech Language Assistant 07/03/17 05:28 Seg Neutrophils # Man 14.8 K/mm3 (1.8-7.7) H 07/13/17 10:43 Band Neutrophils # 0.0 K/mm3 07/13/17 10:43 Lymphocytes # (Manual) 2.2 K/mm3 (1.2-5.4) 07/13/17 10:43 Abs React Lymphs (Man) 0.0 K/mm3 07/13/17 10:43 Monocytes # (Manual) 0.5 K/mm3 (0.0-0.8) 07/13/17 10:43 Eosinophils # (Manual) 0.7 K/mm3 (0.0-0.4) H 07/13/17 10:43 Basophils # (Manual) 0.0 K/mm3 (0.0-0.1) 07/13/17 10:43 Metamyelocytes # 0.0 K/mm3 07/13/17 10:43 Myelocytes # 0.0 K/mm3 07/13/17 10:43 Promyelocytes # 0.0 K/mm3 07/13/17 10:43 Blast Cells # 0.0 K/mm3 07/13/17 10:43 Pathologist Review 07/04/17 04:39 WBC Morphology Not Reportable 07/13/17 10:43 Hypersegmented Neuts Not Reportable 07/13/17 10:43 Hyposegmented Neuts Not Reportable 07/13/17 10:43 Hypogranular Neuts Not Reportable 07/13/17 10:43 Smudge Cells Not Reportable 07/13/17 10:43 Toxic Granulation Not Reportable 07/13/17 10:43 Toxic Vacuolation Not Reportable 07/13/17 10:43 Dohle Bodies Not Reportable 07/13/17 10:43 Pelger-Huet Anomaly Not Reportable 07/13/17 10:43 Irma Rods Not Reportable 07/13/17 10:43 Platelet Estimate Cons 07/13/17 10:43 Clumped Platelets Not Reportable 07/13/17 10:43 Plt Clumps, EDTA Not Reportable 07/13/17 10:43 Large Platelets Not Reportable 07/13/17 10:43 Giant Platelets Not Reportable 07/13/17 10:43 Platelet Satelliting Not Reportable 07/13/17 10:43 Plt Morphology Comment Not Reportable 07/13/17 10:43 RBC Morphology Not Reportable 07/13/17 10:43 Dimorphic RBCs Not Reportable 07/13/17 10:43 Polychromasia Not Reportable 07/13/17 10:43 Hypochromasia 2+ 07/13/17 10:43 Poikilocytosis 1+ 07/13/17 10:43 Anisocytosis 3+ 07/13/17 10:43 Microcytosis Not Reportable 07/13/17 10:43 Macrocytosis Not Reportable 07/13/17 10:43 Spherocytes Not Reportable 07/13/17 10:43 Pappenheimer Bodies Not Reportable 07/13/17 10:43 Sickle Cells Not Reportable 07/13/17 10:43 Target Cells Not Reportable 07/13/17 10:43 Tear Drop Cells Few 07/13/17 10:43 Ovalocytes 1+ 07/13/17 10:43 Helmet Cells Not Reportable 07/13/17 10:43 [place] Bodies Not Reportable 07/13/17 10:43 [place] Rings Not Reportable 07/13/17 10:43 Bath Cells Not Reportable 07/13/17 10:43 Bite Cells Not Reportable 07/13/17 10:43 Crenated Cell Not Reportable 07/13/17 10:43 Elliptocytes Not Reportable 07/13/17 10:43 Acanthocytes (Spur) Not Reportable 07/13/17 10:43 Rouleaux Not Reportable 07/13/17 10:43 Hemoglobin C Crystals Not Reportable 07/13/17 10:43 Schistocytes Not Reportable 07/13/17 10:43 Malaria parasites Not Reportable 07/13/17 10:43 Roberto Bodies Not Reportable 07/13/17 10:43 Haptoglobin 204 mg/dL (43-212) 07/03/17 09:31 Hem Pathologist Commnt No 07/13/17 10:43 PT 12.5 Sec. (12.2-14.9) 07/03/17 06:19 INR 0.89 (0.87-1.13) 05/01/18 06:19 APTT 24.6 Sec. (24.2-36.6) 07/03/17 09:31 Fibrinogen 350 mg/dl (211-480) 07/03/17 09:31 Lupus Anticoagulant see below H 07/06/17 17:55 LA PTT Baseline 47 sec (<=40) H 07/06/17 17:55 dRVVT Confirm Interp Negative (Negative) 07/06/17 17:55 dRVVT Screen 50:50 See scanned report 07/06/17 17:55 dRVVT Mix Interpret See scanned report 07/06/17 17:55 POC ABG pH 7.459 (7.35-7.45) H 07/13/17 08:26 POC ABG pCO2 40.4 (35-45) 07/13/17 08:26 POC ABG pO2 99 (80-105) 07/13/17 08:26 POC ABG HCO3 28.6 07/13/17 08:26 POC ABG Total CO2 30 07/13/17 08:26 POC ABG O2 Sat 98 07/13/17 08:26 POC ABG Base Excess 5 07/13/17 08:26 VBG pH 7.372 (7.320-7.420) 07/03/17 06:19 FiO2 30 % 07/13/17 08:26 Sodium 141 mmol/L (137-145) 07/16/17 07:07 Potassium 4.7 mmol/L (3.6-5.0) D 07/16/17 07:07 Chloride 107.1 mmol/L (98-107) H 07/16/17 07:07 Carbon Dioxide 20 mmol/L (22-30) L 07/16/17 07:07 Anion Gap 19 mmol/L 07/16/17 07:07 BUN 18 mg/dL (7-17) H 07/16/17 07:07 Creatinine 0.9 mg/dL (0.7-1.2) 07/16/17 07:07 Estimated GFR > 60 ml/min 07/16/17 07:07 BUN/Creatinine Ratio 20 % 07/16/17 07:07 Glucose 125 mg/dL (65-100) H 07/16/17 07:07 POC Glucose 147 (70-105) H 07/16/17 05:24 Lactic Acid 0.90 mmol/L (0.7-2.0) 07/06/17 07:28 Calcium 8.2 mg/dL (8.4-10.2) L 07/16/17 07:07 Ionized Calcium 5.1 mg/dL (4.8-5.6) 07/07/17 12:21 Phosphorus 4.20 mg/dL (2.5-4.5) D 07/16/17 07:07 Magnesium 1.90 mg/dL (1.7-2.3) 07/16/17 07:07 Iron 12 ug/dL (37-170) L 07/03/17 09:31 TIBC 534 mcg/dL (250-450) H 07/03/17 09:31 Transferrin 148 mg/dl (192-382) L 07/06/17 07:28 Ferritin 79.1 ng/mL (13.0-400.0) 07/06/17 07:28 Total Bilirubin 0.50 mg/dL (0.1-1.2) 07/14/17 09:35 AST 42 units/L (5-40) H 07/14/17 09:35 ALT 29 units/L (7-56) 07/14/17 09:35 Alkaline Phosphatase 105 units/L (35-129) 07/14/17 09:35 C-Reactive Protein 10.30 mg/dL (0.00-1.30) H 07/12/17 17:01 NT-Pro-B Natriuret Pep 114.4 pg/mL (0-450) 07/07/17 12:21 Total Protein 6.1 g/dL (6.3-8.2) L 07/14/17 09:35 Albumin 2.6 g/dL (3.9-5) L 07/14/17 09:35 Albumin/Globulin Ratio 0.7 % 07/14/17 09:35 Triglycerides 103 mg/dL (2-149) 07/05/17 22:04 Lipase 18 units/L (13-60) 07/03/17 05:28 TSH 0.561 mlU/mL (0.270-4.200) 07/04/17 14:38 HCG, Qual Negative (Negative) 07/03/17 06:19 HCG, Quant < 2 mIU/mL (0-4) 07/05/17 15:50 PTH Intact 285.9 pg/mL (15-65) H 07/06/17 07:28 Urine Color Yellow (Yellow) 07/05/17 Unknown Urine Turbidity Clear (Clear) 07/05/17 Unknown Urine pH 5.0 (5.0-7.0) 07/05/17 Unknown Ur Specific [place] 1.021 (1.003-1.030) 07/05/17 Unknown Urine Protein 100 mg/dl mg/dL (Negative) 07/05/17 Unknown Urine Glucose (UA) 50 mg/dL (Negative) 07/05/17 Unknown Urine Ketones Tr mg/dL (Negative) 07/05/17 Unknown Urine Blood Sm (Negative) 07/05/17 Unknown Urine Nitrite Neg (Negative) 07/05/17 Unknown Urine Bilirubin Neg (Negative) 07/05/17 Unknown Urine Urobilinogen < 2.0 mg/dL (<2.0) 07/05/17 Unknown Ur Leukocyte Esterase Tr (Negative) 07/05/17 Unknown Urine WBC (Auto) < 1.0 /HPF (0.0-6.0) 07/05/17 Unknown Urine RBC (Auto) 10.0 /HPF (0.0-6.0) 07/05/17 Unknown U Epithel Cells (Auto) 9.0 /HPF (0-13.0) 07/05/17 Unknown Urine Bacteria (Auto) 2+ /HPF (Negative) 07/05/17 Unknown Urine Mucus Few /HPF 07/03/17 Unknown Urine Eosinophils None seen (None Seen) 07/05/17 Unknown Urine Creatinine 237.2 mg/dL (0.1-20.0) H 07/05/17 Unknown Urine Microalbumin 39.9 mg/dL (0.1-34.0) H 07/05/17 Unknown Microalb/Creat Ratio 168.2 ug/mg 07/05/17 Unknown Urine Sodium 18 mmol/L 07/05/17 Unknown Urine Total Protein 170 mg/dL (5-11.8) H 07/05/17 Unknown [place] Screen Negative (Negative) 07/06/17 17:55 Proteinase 3 (PR3) Ab <1.0 AI (<1.0) 07/06/17 17:55 Myeloperoxidase Ab <1.0 AI (<1.0) 07/06/17 17:55 Complement C3 77 mg/dL (83-193) L 07/06/17 17:55 Complement C4 16 mg/dL (15-57) 07/06/17 17:55 Hepatitis A IgM Ab Non-reactive (NonReactive) 07/06/17 18:07 Hep Bs Antigen Non-reactive (Negative) 07/06/17 18:07 Hep B Core IgM Ab Non-reactive (NonReactive) 07/06/17 18:07 Hepatitis C Antibody Non-reactive (NonReactive) 07/06/17 18:07 HIV 1&2 Antibody Rapid Non react (Non React) 07/06/17 18:09 HIV P24 Antigen Non react (Non React) 07/06/17 18:09 Blood Type O POSITIVE 07/06/17 10:27 Antibody Screen Negative 07/06/17 10:27 Crossmatch See Detail 07/06/17 10:27
[2017-07-16] MEDS: DIFLUCAN 200 MG/100 ML BAG IV SCH (12:14)
[2017-07-16] MEDS: DIOVAN PO SCH ×2 (12:15→22:28)
[2017-07-16] MEDS: PEPCID IV SCH ×2 (12:18→22:31)
[2017-07-16] MEDS ORDERED: COREG PO ONE (14:00)
--- NOTE | 2017-07-16 15:52 | Progress Note ---
Assessment and Plan Assessment: 1) Severe sepsis: fever resolved, better leukocytosis 56-->>24-->20-->18K; initial etiology: bowel ischemia - gangrene of majority of small bowel and right colon. 2) Peritonitis: secondary to gangrene of majority of small bowel and right colon. Approximately 30 cm of viable small bowel from ligament of treitz, transverse colon and remainder of colon viable. Unclear etiology: ?cocaine ? emboli -S/P Diagnostic laparoscopy, converted to exploratory laparotomy, small bowel resection, right hemicolectomy, temporary closure of abdomen on 07/06 -S/P Peritoneal Washing, enterocolostomy and closure of abdominal wall on 07/09 -TTE EF >55 no clots -CRP=26 -->10 -HIV neg -Viral hepatitis neg -Path - benign gangrenous small bowel, colon and appendix, no malignancy -ANCA neg -CHELSEA neg -C3 low (unclear significance) -CXR repeat 07/12 Sanchez infiltrates 3) Nausea, vomiting, abdominal pain and diarrhea: due to bowel gangrene -CT - bowels were normal -repeat CT w contrast showed multiple non distended small and large bowel loops ? ileus, no evidence of colitis or enteritis 4) Hypertensive urgency 5) Vaginal bleeding: from fibroids. CT showed uterine fibroids, 2.3 c left ovarian cyst. 6) Right liver lesion ? hemangioma. Viral hep neg 7) Small pericardial effusion 8) EMMA -better 9) Severe anemia: prob from fibroids 10) Cocaine abuse: however a month prior admission Recommendations: -continue zosyn and fluconazole for now- D13/14, stop them tomorrow -per surgery liquid diet as tolerated and continue TPN indefintely due to short gut. -consider port-A-cath for TPN and remove PICC -pt educated about early sign of sepsis from port/picc infection -avoid cocaine ID clinic f/u in 3 weeks/ I am signing off Thanks for consultation Rachel Bryant MD Subjective Date of service: 07/16/17 Principal diagnosis: Post-Op Resp Failure on MVS; Ischemic Bowel s/p Ex-Lap; EMMA Interval history: Extubated, alert, talking, feels better. No fever. Micro: Blood cx 07/03 neg 10 neg Urine cx: 07/03 10-100K mixed bacteria Tracheal asp : 07/06 ngtd 5/10 ngtd Abx: zosyn 07/09 Fluconazole 5/3 Previous Abx: Zosyn Levaquin Flagyl Vanco Meropenem 07/05-07/09 Objective - Exam Narrative Exam: Alert talking in NAD on RA JULIANN, clear OP Neck no LN Lungs CTA sanchez CV rrr Abd soft +surg wound withs marilyn Ext no edema Skin no rash Neuro alert talking - Constitutional Vitals: Vital Signs Temp Pulse Resp BP Pulse Ox 98.6 F 97 H 20 190/101 99 07/16/17 12:47 07/16/17 07:11 07/16/17 12:47 07/16/17 12:47 07/16/17 07:11 Temperature -Last 24 Hours Temperature 98.6 F Temperature 99.2 F Temperature 99.1 F Temperature 97.7 F Temperature 99.3 F - Labs CBC & Chem 7: 07/13/17 10:43 07/16/17 07:07 Labs: Abnormal lab results 07/15/17 07/15/17 07/16/17 Range/Units 16:49 22:19 05:24 Chloride (98-107) mmol/L Carbon Dioxide (22-30) mmol/L BUN (7-17) mg/dL Glucose (65-100) mg/dL POC Glucose 141 H 136 H 147 H (70-105) Calcium (8.4-10.2) mg/dL 07/16/17 Range/Units 07:07 Chloride 107.1 H (98-107) mmol/L Carbon Dioxide 20 L (22-30) mmol/L BUN 18 H (7-17) mg/dL Glucose 125 H (65-100) mg/dL POC Glucose (70-105) Calcium 8.2 L (8.4-10.2) mg/dL
--- NOTE | 2017-07-16 16:38 | Progress Note ---
Assessment and Plan - Patient Problems (1) Ischemia, bowel Current Visit: Yes Status: Acute Plan to address problem: Pt stable. s/p enteroenterostomy and closure of abdominal wall - 07/09 - POD#7. - Diet as tolerated (for comfort). Would keep in mind that with the short gut, even a small amount of PO intake may lead to diarrhea. Will have to find right amount through trial and error. - Will need to continue TPN indefintely. Can begin cycling at any time. - Incision looks good. No clinical signs to suggest anastomotic leak - marilyn to come out between POD #10-14 Please call with questions. Subjective Date of service: 07/16/17 Patient Reports: Positive: no new complaints, still having pain (about a 5-6), tolerating liquids well, diarrhea. Negative: nausea, vomiting Objective Vital Signs - 12hr 07/16/17 07/16/17 07:11 12:47 Temperature 99.2 F 98.6 F Pulse Rate 97 H Respiratory 20 20 Rate Blood Pressure 165/74 190/101 O2 Sat by Pulse 99 Oximetry - General physical appearance no distress, no pain, other (has more energy today) - Abdomen soft, tender (mild - diffuse. no pelvic shake tenderness. ), bowel sounds hypoactive (improving), not distended, not guarding, not rigid, other (Incision C/d/I) - Integumentary no rash, no growths, no abnormal pigmentation - Psychiatric oriented to time, oriented to person, oriented to place, speech is normal, memory intact - Labs 07/13/17 10:43 07/16/17 07:07 Diabetes panel 07/16/17 Range/Units 07:07 Sodium 141 (137-145) mmol/L Potassium 4.7 D (3.6-5.0) mmol/L Chloride 107.1 H (98-107) mmol/L Carbon Dioxide 20 L (22-30) mmol/L BUN 18 H (7-17) mg/dL Creatinine 0.9 (0.7-1.2) mg/dL Glucose 125 H (65-100) mg/dL Calcium 8.2 L (8.4-10.2) mg/dL Calcium panel 07/16/17 Range/Units 07:07 Calcium 8.2 L (8.4-10.2) mg/dL Phosphorus 4.20 D (2.5-4.5) mg/dL Pituitary panel 07/16/17 Range/Units 07:07 Sodium 141 (137-145) mmol/L Potassium 4.7 D (3.6-5.0) mmol/L Chloride 107.1 H (98-107) mmol/L Carbon Dioxide 20 L (22-30) mmol/L BUN 18 H (7-17) mg/dL Creatinine 0.9 (0.7-1.2) mg/dL Glucose 125 H (65-100) mg/dL Calcium 8.2 L (8.4-10.2) mg/dL Adrenal panel 07/16/17 Range/Units 07:07 Sodium 141 (137-145) mmol/L Potassium 4.7 D (3.6-5.0) mmol/L Chloride 107.1 H (98-107) mmol/L Carbon Dioxide 20 L (22-30) mmol/L BUN 18 H (7-17) mg/dL Creatinine 0.9 (0.7-1.2) mg/dL Glucose 125 H (65-100) mg/dL Calcium 8.2 L (8.4-10.2) mg/dL
[2017-07-16] MEDS: NORVASC PO SCH (17:52)
[2017-07-16] MEDS ORDERED: TPN ADULT 2,400 ML IV SCH (20:00)
[2017-07-16] MEDS: CATAPRES PO SCH (22:29)
[2017-07-17] MEDS: MORPHINE IV PRN ×2 (03:18→09:51)
[2017-07-17] MEDS: ZOSYN/NS 4.5GM/100ML 4.5 GM/100 ML VIAL IV SCH ×3 (06:47→21:52)
[2017-07-17] MEDS: HEPARIN SUB-Q SCH ×3 (06:48→21:52)
--- NOTE | 2017-07-17 07:12 | Progress Note ---
Assessment and Plan Postoperative respiratory failure, s/p mechanical ventilatory support Sepsis syndrome. Ischemic bowel, possibly secondary to embolic event vs related to drug abuse H/O Cocaine use with possibility of arterial spasm. Acute kidney injury. Leukocytosis. Uncontrolled hypertension. Severe anemia. Drug abuse. Alcohol abuse -Continue all current care -Nutritional support -PT/OT -Increase activity -TPN -VTE prophyalxis -Substance abuse counselling done at the bedside -Antibiotics per ID -Wean oxygen for O2 sats>90% -Will continue to follow peripherally Subjective Date of service: 07/17/17 Principal diagnosis: Post-Op Resp Failure on MVS; Ischemic Bowel s/p Ex-Lap; EMMA Interval history: Follow up: Sepsis, severe anemia, malignant hypertension, abdominal pain Seen and examined at bedside; 24hour events reviewed with nursing staff Blood pressure controlled Doing well. No fevers or chills, no nausea or vomiting. No abdominal pain, very upbeat today. Objective Vital Signs - 12hr 07/16/17 07/16/17 07/16/17 20:08 22:00 22:28 Temperature 99.8 F H Pulse Rate 85 85 Respiratory 18 Rate Blood Pressure 176/94 176/94 Blood Pressure [Right] O2 Sat by Pulse 100 99 Oximetry 07/16/17 07/16/17 07/16/17 22:29 22:30 22:34 Temperature Pulse Rate 85 85 Respiratory 18 Rate Blood Pressure 176/94 176/94 Blood Pressure [Right] O2 Sat by Pulse Oximetry 07/17/17 07/17/17 03:18 04:00 Temperature 98.8 F Pulse Rate 90 Respiratory 18 16 Rate Blood Pressure Blood Pressure 128/81 [Right] O2 Sat by Pulse 99 Oximetry Constitutional: no acute distress Eyes: non-icteric ENT: oropharynx moist Neck: supple, no lymphadenopathy, no JVD, other (no thyromegaly) Effort: normal Ascultation: Bilateral: diminished breath sounds (bases) Percussion: Bilateral: not dull Cardiovascular: regular rate and rhythm, other (No R/M) Gastrointestinal: hypoactive bowel sounds, non-distended, other (no palpable HSM ; clean dry wound site with marilyn) Integumentary: normal Extremities: no cyanosis, no edema, pulses normal, no ischemia or petechiae Neurologic: normal mental status, non-focal exam, pupils equal and round, CN II- XII normal, motor strength normal and Psychiatric: mood appropriate, affect normal, anxious CBC and BMP: 07/17/17 12:30 07/18/17 09:10 ABG, PT/INR, D-dimer: ABG POC ABG pH 7.459 (7.35-7.45) H 07/13/17 08:26 POC ABG pCO2 40.4 (35-45) 07/13/17 08:26 POC ABG pO2 99 (80-105) 07/13/17 08:26 POC ABG HCO3 28.6 07/13/17 08:26 POC ABG Total CO2 30 07/13/17 08:26 POC ABG O2 Sat 98 07/13/17 08:26 PT/INR, D-dimer PT 12.5 Sec. (12.2-14.9) 07/03/17 06:19 INR 0.89 (0.87-1.13) 07/03/17 06:19 Abnormal lab findings: Abnormal Labs 07/03/17 07/03/17 07/03/17 05:11 05:28 05:28 WBC 12.9 H RBC Hgb 5.6 L* Hct 22.3 L MCV 59 L MCH 15 L MCHC 25 L RDW 33.3 H Plt Count 125 L Seg Neuts % (Manual) 75.0 H Lymphocytes % (Manual) Seg Neutrophils # Man 9.7 H Lymphocytes # (Manual) Monocytes # (Manual) Eosinophils # (Manual) Lupus Anticoagulant LA PTT Baseline POC ABG pH POC ABG pCO2 POC ABG pO2 Sodium Potassium 3.0 L Chloride Carbon Dioxide BUN Creatinine 0.6 L Glucose 220 H POC Glucose 188 H Lactic Acid Calcium Phosphorus Magnesium Iron TIBC Transferrin AST C-Reactive Protein Total Protein Albumin PTH Intact Urine WBC (Auto) Urine Creatinine Urine Microalbumin Urine Total Protein Complement C3 Crossmatch 07/03/17 07/03/17 07/03/17 06:19 06:35 08:42 WBC RBC Hgb Hct MCV MCH MCHC RDW Plt Count Seg Neuts % (Manual) Lymphocytes % (Manual) Seg Neutrophils # Man Lymphocytes # (Manual) Monocytes # (Manual) Eosinophils # (Manual) Lupus Anticoagulant LA PTT Baseline POC ABG pH POC ABG pCO2 POC ABG pO2 Sodium Potassium Chloride Carbon Dioxide BUN Creatinine Glucose POC Glucose Lactic Acid 2.50 H* 2.20 H* Calcium Phosphorus Magnesium Iron TIBC Transferrin AST C-Reactive Protein Total Protein Albumin PTH Intact Urine WBC (Auto) Urine Creatinine Urine Microalbumin Urine Total Protein Complement C3 Crossmatch See Detail 07/03/17 07/03/17 07/03/17 09:31 09:31 11:50 WBC RBC Hgb 5.7 L* Hct 22.4 L MCV MCH MCHC RDW Plt Count Seg Neuts % (Manual) Lymphocytes % (Manual) Seg Neutrophils # Man Lymphocytes # (Manual) Monocytes # (Manual) Eosinophils # (Manual) Lupus Anticoagulant LA PTT Baseline POC ABG pH POC ABG pCO2 POC ABG pO2 Sodium Potassium Chloride Carbon Dioxide BUN Creatinine Glucose POC Glucose Lactic Acid 2.80 H* Calcium Phosphorus Magnesium Iron 12 L TIBC 534 H Transferrin AST C-Reactive Protein Total Protein Albumin PTH Intact Urine WBC (Auto) Urine Creatinine Urine Microalbumin Urine Total Protein Complement C3 Crossmatch 07/03/17 07/03/17 07/03/17 16:50 16:50 Unknown WBC RBC Hgb 9.7 L D Hct MCV MCH MCHC RDW Plt Count Seg Neuts % (Manual) Lymphocytes % (Manual) Seg Neutrophils # Man Lymphocytes # (Manual) Monocytes # (Manual) Eosinophils # (Manual) Lupus Anticoagulant LA PTT Baseline POC ABG pH POC ABG pCO2 POC ABG pO2 Sodium Potassium Chloride Carbon Dioxide BUN Creatinine Glucose POC Glucose Lactic Acid 2.30 H* Calcium Phosphorus Magnesium Iron TIBC Transferrin AST C-Reactive Protein Total Protein Albumin PTH Intact Urine WBC (Auto) 18.0 H Urine Creatinine Urine Microalbumin Urine Total Protein Complement C3 Crossmatch 07/04/17 07/04/17 07/04/17 03:57 03:57 04:39 WBC 42.4 H* 42.8 H* RBC Hgb 9.1 L 9.3 L Hct MCV 65 L 66 L MCH 19 L 20 L MCHC 29 L RDW 37.3 H 37.3 H Plt Count 120 L Seg Neuts % (Manual) 93.5 H Lymphocytes % (Manual) 2.5 L Seg Neutrophils # Man 40.0 H Lymphocytes # (Manual) 1.1 L Monocytes # (Manual) 1.1 H Eosinophils # (Manual) Lupus Anticoagulant LA PTT Baseline POC ABG pH POC ABG pCO2 POC ABG pO2 Sodium 134 L Potassium 3.5 L Chloride 95.4 L Carbon Dioxide 21 L BUN 6 L Creatinine 0.5 L Glucose 147 H POC Glucose Lactic Acid Calcium 7.9 L Phosphorus Magnesium Iron TIBC Transferrin AST C-Reactive Protein Total Protein Albumin PTH Intact Urine WBC (Auto) Urine Creatinine Urine Microalbumin Urine Total Protein Complement C3 Crossmatch 07/04/17 07/04/17 07/05/17 12:09 17:11 08:21 WBC 56.3 H* RBC Hgb 8.3 L Hct 29.1 L MCV 66 L MCH 19 L MCHC 28 L RDW 38.3 H Plt Count Seg Neuts % (Manual) 96.5 H Lymphocytes % (Manual) 1.0 L Seg Neutrophils # Man 54.3 H Lymphocytes # (Manual) 0.6 L Monocytes # (Manual) 1.4 H Eosinophils # (Manual) Lupus Anticoagulant LA PTT Baseline POC ABG pH POC ABG pCO2 POC ABG pO2 Sodium Potassium Chloride Carbon Dioxide BUN Creatinine Glucose POC Glucose 169 H 124 H Lactic Acid Calcium Phosphorus Magnesium Iron TIBC Transferrin AST C-Reactive Protein Total Protein Albumin PTH Intact Urine WBC (Auto) Urine Creatinine Urine Microalbumin Urine Total Protein Complement C3 Crossmatch 07/05/17 07/05/17 07/05/17 08:21 10:55 22:34 WBC RBC Hgb Hct MCV MCH MCHC RDW Plt Count Seg Neuts % (Manual) Lymphocytes % (Manual) Seg Neutrophils # Man Lymphocytes # (Manual) Monocytes # (Manual) Eosinophils # (Manual) Lupus Anticoagulant LA PTT Baseline POC ABG pH 7.185 L POC ABG pCO2 33.8 L POC ABG pO2 Sodium 135 L 135 L Potassium Chloride Carbon Dioxide 18 L 16 L BUN 25 H 27 H Creatinine 2.7 H D 2.9 H Glucose 115 H 119 H POC Glucose Lactic Acid Calcium 7.9 L 8.0 L Phosphorus Magnesium Iron TIBC Transferrin AST C-Reactive Protein Total Protein Albumin PTH Intact Urine WBC (Auto) Urine Creatinine Urine Microalbumin Urine Total Protein Complement C3 Crossmatch 07/05/17 07/06/17 07/06/17 Unknown 05:17 07:28 WBC RBC Hgb Hct MCV MCH MCHC RDW Plt Count Seg Neuts % (Manual) Lymphocytes % (Manual) Seg Neutrophils # Man Lymphocytes # (Manual) Monocytes # (Manual) Eosinophils # (Manual) Lupus Anticoagulant LA PTT Baseline POC ABG pH POC ABG pCO2 28.0 L POC ABG pO2 193 H Sodium Potassium Chloride 112.6 H Carbon Dioxide 15 L BUN 35 H Creatinine 4.0 H Glucose POC Glucose Lactic Acid Calcium 5.8 L* D Phosphorus Magnesium 1.20 L Iron TIBC Transferrin 148 L AST C-Reactive Protein Total Protein Albumin PTH Intact Urine WBC (Auto) Urine Creatinine 237.2 H Urine Microalbumin 39.9 H Urine Total Protein 170 H Complement C3 Crossmatch 07/06/17 07/06/17 07/06/17 07:28 07:28 10:27 WBC 28.9 H RBC Hgb 7.1 L Hct 24.5 L MCV 66 L MCH 19 L MCHC 29 L RDW 38.6 H Plt Count Seg Neuts % (Manual) Lymphocytes % (Manual) Seg Neutrophils # Man Lymphocytes # (Manual) Monocytes # (Manual) Eosinophils # (Manual) Lupus Anticoagulant LA PTT Baseline POC ABG pH POC ABG pCO2 POC ABG pO2 Sodium Potassium Chloride Carbon Dioxide BUN Creatinine Glucose POC Glucose Lactic Acid Calcium Phosphorus Magnesium Iron TIBC Transferrin AST C-Reactive Protein Total Protein Albumin PTH Intact 285.9 H Urine WBC (Auto) Urine Creatinine Urine Microalbumin Urine Total Protein Complement C3 Crossmatch See Detail 07/06/17 07/06/17 07/06/17 17:55 17:55 18:08 WBC RBC Hgb Hct MCV MCH MCHC RDW Plt Count Seg Neuts % (Manual) Lymphocytes % (Manual) Seg Neutrophils # Man Lymphocytes # (Manual) Monocytes # (Manual) Eosinophils # (Manual) Lupus Anticoagulant see below H LA PTT Baseline 47 H POC ABG pH POC ABG pCO2 POC ABG pO2 Sodium Potassium Chloride Carbon Dioxide BUN Creatinine Glucose POC Glucose Lactic Acid Calcium Phosphorus Magnesium Iron TIBC Transferrin AST C-Reactive Protein 26.20 H Total Protein Albumin PTH Intact Urine WBC (Auto) Urine Creatinine Urine Microalbumin Urine Total Protein Complement C3 77 L Crossmatch 07/07/17 07/07/17 07/07/17 04:18 05:59 05:59 WBC 24.9 H RBC Hgb 8.8 L Hct 28.0 L MCV 72 L MCH 23 L MCHC RDW 33.3 H Plt Count Seg Neuts % (Manual) Lymphocytes % (Manual) Seg Neutrophils # Man Lymphocytes # (Manual) Monocytes # (Manual) Eosinophils # (Manual) Lupus Anticoagulant LA PTT Baseline POC ABG pH POC ABG pCO2 27.5 L POC ABG pO2 61 L Sodium Potassium Chloride Carbon Dioxide 17 L BUN 46 H Creatinine 4.8 H Glucose 103 H POC Glucose Lactic Acid Calcium 7.6 L D Phosphorus Magnesium Iron TIBC Transferrin AST C-Reactive Protein Total Protein Albumin PTH Intact Urine WBC (Auto) Urine Creatinine Urine Microalbumin Urine Total Protein Complement C3 Crossmatch 07/07/17 07/08/17 07/08/17 05:59 04:22 04:22 WBC 21.3 H RBC Hgb 8.9 L Hct 27.5 L MCV 71 L MCH 23 L MCHC RDW 35.0 H Plt Count Seg Neuts % (Manual) Lymphocytes % (Manual) Seg Neutrophils # Man Lymphocytes # (Manual) Monocytes # (Manual) Eosinophils # (Manual) Lupus Anticoagulant LA PTT Baseline POC ABG pH POC ABG pCO2 POC ABG pO2 Sodium Potassium Chloride Carbon Dioxide 18 L BUN 56 H Creatinine 4.3 H Glucose 110 H POC Glucose Lactic Acid Calcium 8.3 L Phosphorus Magnesium 2.50 H Iron TIBC Transferrin AST C-Reactive Protein Total Protein Albumin PTH Intact Urine WBC (Auto) Urine Creatinine Urine Microalbumin Urine Total Protein Complement C3 Crossmatch 07/08/17 07/08/17 07/08/17 04:22 05:40 12:36 WBC RBC Hgb Hct MCV MCH MCHC RDW Plt Count Seg Neuts % (Manual) Lymphocytes % (Manual) Seg Neutrophils # Man Lymphocytes # (Manual) Monocytes # (Manual) Eosinophils # (Manual) Lupus Anticoagulant LA PTT Baseline POC ABG pH POC ABG pCO2 POC ABG pO2 158 H Sodium Potassium Chloride Carbon Dioxide BUN Creatinine Glucose POC Glucose 109 H Lactic Acid Calcium Phosphorus 4.80 H Magnesium 2.60 H Iron TIBC Transferrin AST C-Reactive Protein Total Protein Albumin PTH Intact Urine WBC (Auto) Urine Creatinine Urine Microalbumin Urine Total Protein Complement C3 Crossmatch 07/09/17 07/09/17 07/09/17 04:30 04:30 04:51 WBC RBC Hgb Hct MCV MCH MCHC RDW Plt Count Seg Neuts % (Manual) Lymphocytes % (Manual) Seg Neutrophils # Man Lymphocytes # (Manual) Monocytes # (Manual) Eosinophils # (Manual) Lupus Anticoagulant LA PTT Baseline POC ABG pH 7.522 H POC ABG pCO2 POC ABG pO2 67 L Sodium Potassium 3.2 L D Chloride 96.3 L Carbon Dioxide BUN 60 H Creatinine 3.6 H Glucose 115 H POC Glucose Lactic Acid Calcium Phosphorus 4.80 H Magnesium Iron TIBC Transferrin AST C-Reactive Protein Total Protein Albumin PTH Intact Urine WBC (Auto) Urine Creatinine Urine Microalbumin Urine Total Protein Complement C3 Crossmatch 07/09/17 07/09/17 07/09/17 12:26 17:51 23:48 WBC RBC Hgb Hct MCV MCH MCHC RDW Plt Count Seg Neuts % (Manual) Lymphocytes % (Manual) Seg Neutrophils # Man Lymphocytes # (Manual) Monocytes # (Manual) Eosinophils # (Manual) Lupus Anticoagulant LA PTT Baseline POC ABG pH POC ABG pCO2 POC ABG pO2 Sodium Potassium Chloride Carbon Dioxide BUN Creatinine Glucose POC Glucose 140 H 152 H 149 H Lactic Acid Calcium Phosphorus Magnesium Iron TIBC Transferrin AST C-Reactive Protein Total Protein Albumin PTH Intact Urine WBC (Auto) Urine Creatinine Urine Microalbumin Urine Total Protein Complement C3 Crossmatch 07/10/17 07/10/17 07/10/17 03:33 05:30 05:30 WBC 24.0 H RBC Hgb 9.0 L Hct 29.3 L MCV 69 L MCH 21 L MCHC RDW 35.9 H Plt Count 451 H Seg Neuts % (Manual) Lymphocytes % (Manual) Seg Neutrophils # Man Lymphocytes # (Manual) Monocytes # (Manual) Eosinophils # (Manual) Lupus Anticoagulant LA PTT Baseline POC ABG pH 7.593 H POC ABG pCO2 34.7 L POC ABG pO2 73 L Sodium Potassium Chloride 96.8 L Carbon Dioxide 31 H BUN 61 H Creatinine 2.9 H Glucose 120 H POC Glucose Lactic Acid Calcium Phosphorus 5.20 H Magnesium Iron TIBC Transferrin AST C-Reactive Protein Total Protein Albumin PTH Intact Urine WBC (Auto) Urine Creatinine Urine Microalbumin Urine Total Protein Complement C3 Crossmatch 07/10/17 07/10/17 07/10/17 12:19 17:59 23:51 WBC RBC Hgb Hct MCV MCH MCHC RDW Plt Count Seg Neuts % (Manual) Lymphocytes % (Manual) Seg Neutrophils # Man Lymphocytes # (Manual) Monocytes # (Manual) Eosinophils # (Manual) Lupus Anticoagulant LA PTT Baseline POC ABG pH POC ABG pCO2 POC ABG pO2 Sodium Potassium Chloride Carbon Dioxide BUN Creatinine Glucose POC Glucose 143 H 147 H 139 H Lactic Acid Calcium Phosphorus Magnesium Iron TIBC Transferrin AST C-Reactive Protein Total Protein Albumin PTH Intact Urine WBC (Auto) Urine Creatinine Urine Microalbumin Urine Total Protein Complement C3 Crossmatch 07/11/17 07/11/17 07/11/17 06:30 06:30 06:30 WBC 20.2 H RBC Hgb 8.4 L Hct 26.0 L MCV 71 L MCH 23 L MCHC RDW 35.6 H Plt Count 469 H Seg Neuts % (Manual) Lymphocytes % (Manual) Seg Neutrophils # Man Lymphocytes # (Manual) Monocytes # (Manual) Eosinophils # (Manual) Lupus Anticoagulant LA PTT Baseline POC ABG pH POC ABG pCO2 POC ABG pO2 Sodium Potassium Chloride Carbon Dioxide 32 H BUN 58 H Creatinine 2.4 H Glucose 111 H POC Glucose Lactic Acid Calcium Phosphorus 6.10 H Magnesium 1.60 L Iron TIBC Transferrin AST C-Reactive Protein Total Protein Albumin PTH Intact Urine WBC (Auto) Urine Creatinine Urine Microalbumin Urine Total Protein Complement C3 Crossmatch 07/11/17 07/11/17 07/11/17 08:54 12:47 17:33 WBC RBC Hgb Hct MCV MCH MCHC RDW Plt Count Seg Neuts % (Manual) Lymphocytes % (Manual) Seg Neutrophils # Man Lymphocytes # (Manual) Monocytes # (Manual) Eosinophils # (Manual) Lupus Anticoagulant LA PTT Baseline POC ABG pH 7.485 H POC ABG pCO2 POC ABG pO2 Sodium Potassium Chloride Carbon Dioxide BUN Creatinine Glucose POC Glucose 168 H 151 H Lactic Acid Calcium Phosphorus Magnesium Iron TIBC Transferrin AST C-Reactive Protein Total Protein Albumin PTH Intact Urine WBC (Auto) Urine Creatinine Urine Microalbumin Urine Total Protein Complement C3 Crossmatch 07/11/17 07/12/17 07/12/17 23:52 05:39 06:25 WBC RBC Hgb Hct MCV MCH MCHC RDW Plt Count Seg Neuts % (Manual) Lymphocytes % (Manual) Seg Neutrophils # Man Lymphocytes # (Manual) Monocytes # (Manual) Eosinophils # (Manual) Lupus Anticoagulant LA PTT Baseline POC ABG pH POC ABG pCO2 POC ABG pO2 Sodium Potassium Chloride Carbon Dioxide BUN 43 H Creatinine 1.8 H Glucose 138 H POC Glucose 156 H 146 H Lactic Acid Calcium Phosphorus 5.90 H Magnesium Iron TIBC Transferrin AST C-Reactive Protein Total Protein Albumin PTH Intact Urine WBC (Auto) Urine Creatinine Urine Microalbumin Urine Total Protein Complement C3 Crossmatch 07/12/17 07/12/17 07/12/17 11:46 12:14 17:01 WBC RBC Hgb Hct MCV MCH MCHC RDW Plt Count Seg Neuts % (Manual) Lymphocytes % (Manual) Seg Neutrophils # Man Lymphocytes # (Manual) Monocytes # (Manual) Eosinophils # (Manual) Lupus Anticoagulant LA PTT Baseline POC ABG pH 7.477 H POC ABG pCO2 POC ABG pO2 Sodium Potassium Chloride Carbon Dioxide BUN Creatinine Glucose POC Glucose 156 H Lactic Acid Calcium Phosphorus Magnesium Iron TIBC Transferrin AST C-Reactive Protein 10.30 H Total Protein Albumin PTH Intact Urine WBC (Auto) Urine Creatinine Urine Microalbumin Urine Total Protein Complement C3 Crossmatch 07/12/17 07/12/17 07/13/17 18:03 23:47 05:53 WBC RBC Hgb Hct MCV MCH MCHC RDW Plt Count Seg Neuts % (Manual) Lymphocytes % (Manual) Seg Neutrophils # Man Lymphocytes # (Manual) Monocytes # (Manual) Eosinophils # (Manual) Lupus Anticoagulant LA PTT Baseline POC ABG pH POC ABG pCO2 POC ABG pO2 Sodium Potassium Chloride Carbon Dioxide BUN Creatinine Glucose POC Glucose 140 H 158 H 137 H Lactic Acid Calcium Phosphorus Magnesium Iron TIBC Transferrin AST C-Reactive Protein Total Protein Albumin PTH Intact Urine WBC (Auto) Urine Creatinine Urine Microalbumin Urine Total Protein Complement C3 Crossmatch 07/13/17 07/13/17 07/13/17 06:15 08:26 10:43 WBC 18.3 H RBC 3.35 L Hgb 7.6 L Hct 24.4 L MCV 73 L MCH 23 L MCHC RDW 35.3 H Plt Count 520 H Seg Neuts % (Manual) 81.0 H Lymphocytes % (Manual) 12.0 L Seg Neutrophils # Man 14.8 H Lymphocytes # (Manual) Monocytes # (Manual) Eosinophils # (Manual) 0.7 H Lupus Anticoagulant LA PTT Baseline POC ABG pH 7.459 H POC ABG pCO2 POC ABG pO2 Sodium 149 H Potassium Chloride Carbon Dioxide BUN 31 H Creatinine 1.3 H Glucose 112 H POC Glucose Lactic Acid Calcium Phosphorus 5.10 H Magnesium 1.60 L Iron TIBC Transferrin AST C-Reactive Protein Total Protein Albumin PTH Intact Urine WBC (Auto) Urine Creatinine Urine Microalbumin Urine Total Protein Complement C3 Crossmatch 07/13/17 07/13/17 07/14/17 12:16 17:38 00:16 WBC RBC Hgb Hct MCV MCH MCHC RDW Plt Count Seg Neuts % (Manual) Lymphocytes % (Manual) Seg Neutrophils # Man Lymphocytes # (Manual) Monocytes # (Manual) Eosinophils # (Manual) Lupus Anticoagulant LA PTT Baseline POC ABG pH POC ABG pCO2 POC ABG pO2 Sodium Potassium Chloride Carbon Dioxide BUN Creatinine Glucose POC Glucose 141 H 144 H 152 H Lactic Acid Calcium Phosphorus Magnesium Iron TIBC Transferrin AST C-Reactive Protein Total Protein Albumin PTH Intact Urine WBC (Auto) Urine Creatinine Urine Microalbumin Urine Total Protein Complement C3 Crossmatch 07/14/17 07/14/17 07/14/17 06:11 09:35 12:52 WBC RBC Hgb Hct MCV MCH MCHC RDW Plt Count Seg Neuts % (Manual) Lymphocytes % (Manual) Seg Neutrophils # Man Lymphocytes # (Manual) Monocytes # (Manual) Eosinophils # (Manual) Lupus Anticoagulant LA PTT Baseline POC ABG pH POC ABG pCO2 POC ABG pO2 Sodium Potassium 3.5 L Chloride Carbon Dioxide BUN 21 H Creatinine Glucose 139 H POC Glucose 138 H 154 H Lactic Acid Calcium Phosphorus Magnesium 1.40 L Iron TIBC Transferrin AST 42 H C-Reactive Protein Total Protein 6.1 L Albumin 2.6 L PTH Intact Urine WBC (Auto) Urine Creatinine Urine Microalbumin Urine Total Protein Complement C3 Crossmatch 07/14/17 07/15/17 07/15/17 17:17 00:56 06:21 WBC RBC Hgb Hct MCV MCH MCHC RDW Plt Count Seg Neuts % (Manual) Lymphocytes % (Manual) Seg Neutrophils # Man Lymphocytes # (Manual) Monocytes # (Manual) Eosinophils # (Manual) Lupus Anticoagulant LA PTT Baseline POC ABG pH POC ABG pCO2 POC ABG pO2 Sodium Potassium Chloride Carbon Dioxide BUN Creatinine Glucose POC Glucose 133 H 144 H 137 H Lactic Acid Calcium Phosphorus Magnesium Iron TIBC Transferrin AST C-Reactive Protein Total Protein Albumin PTH Intact Urine WBC (Auto) Urine Creatinine Urine Microalbumin Urine Total Protein Complement C3 Crossmatch 07/15/17 07/15/17 07/15/17 11:49 16:49 22:19 WBC RBC Hgb Hct MCV MCH MCHC RDW Plt Count Seg Neuts % (Manual) Lymphocytes % (Manual) Seg Neutrophils # Man Lymphocytes # (Manual) Monocytes # (Manual) Eosinophils # (Manual) Lupus Anticoagulant LA PTT Baseline POC ABG pH POC ABG pCO2 POC ABG pO2 Sodium Potassium Chloride Carbon Dioxide BUN Creatinine Glucose POC Glucose 145 H 141 H 136 H Lactic Acid Calcium Phosphorus Magnesium Iron TIBC Transferrin AST C-Reactive Protein Total Protein Albumin PTH Intact Urine WBC (Auto) Urine Creatinine Urine Microalbumin Urine Total Protein Complement C3 Crossmatch 07/16/17 07/16/17 07/16/17 05:24 07:07 16:52 WBC RBC Hgb Hct MCV MCH MCHC RDW Plt Count Seg Neuts % (Manual) Lymphocytes % (Manual) Seg Neutrophils # Man Lymphocytes # (Manual) Monocytes # (Manual) Eosinophils # (Manual) Lupus Anticoagulant LA PTT Baseline POC ABG pH POC ABG pCO2 POC ABG pO2 Sodium Potassium Chloride 107.1 H Carbon Dioxide 20 L BUN 18 H Creatinine Glucose 125 H POC Glucose 147 H 128 H Lactic Acid Calcium 8.2 L Phosphorus Magnesium Iron TIBC Transferrin AST C-Reactive Protein Total Protein Albumin PTH Intact Urine WBC (Auto) Urine Creatinine Urine Microalbumin Urine Total Protein Complement C3 Crossmatch 07/16/17 07/17/17 22:12 06:08 WBC RBC Hgb Hct MCV MCH MCHC RDW Plt Count Seg Neuts % (Manual) Lymphocytes % (Manual) Seg Neutrophils # Man Lymphocytes # (Manual) Monocytes # (Manual) Eosinophils # (Manual) Lupus Anticoagulant LA PTT Baseline POC ABG pH POC ABG pCO2 POC ABG pO2 Sodium Potassium Chloride Carbon Dioxide BUN Creatinine Glucose POC Glucose 117 H 131 H Lactic Acid Calcium Phosphorus Magnesium Iron TIBC Transferrin AST C-Reactive Protein Total Protein Albumin PTH Intact Urine WBC (Auto) Urine Creatinine Urine Microalbumin Urine Total Protein Complement C3 Crossmatch Allied health notes reviewed: RT
--- NOTE | 2017-07-17 08:09 | XRay Report ---
AP CHEST: HISTORY: Followup respiratory failure Compared to 07/16/17. Borderline heart size is stable. Hazy opacities in the lower lung zones are stable which may represent atelectatic changes or congestive changes. No consolidation, large pleural effusion or pneumothorax. The left arm PICC remains in good position. IMPRESSION: No change.
[2017-07-17 08:19] LABS: BUN/Creatinine Ratio 19; Blood Urea Nitrogen 17 mg/dL (7-17); Calcium 8.6 mg/dL (8.4-10.2); Hemolysis Index 2
--- NOTE | 2017-07-17 09:41 | Progress Note ---
Assessment and Plan - Patient Problems (1) Ischemia, bowel Current Visit: Yes Status: Acute Plan to address problem: Pt stable. s/p enteroenterostomy and closure of abdominal wall - / - POD#8. - Diet as tolerated (for comfort). Will advance to regular per patient request. Reinforced that we need to go slow as she may end up with a lot of diarrhea if she takes too much in at one time. Would keep in mind that with the short gut, even a small amount of PO intake may lead to diarrhea. Will have to find right amount through trial and error. - Will need to continue TPN indefintely. Can begin cycling at any time. - Incision looks good. No clinical signs to suggest anastomotic leak - marilyn to come out between POD #10-14 - ok to plan disposition from my standpoint. Please call with questions. Will follow peripherally. Subjective Date of service: 07/17/17 Patient Reports: Positive: feels better (She does note that things are getting better), still having pain, tolerating liquids well, bowel movement, other ( walked in hallway yesterday). Negative: nausea, vomiting Objective Vital Signs - 12hr 07/16/17 07/16/17 07/16/17 22:00 22:28 22:29 Temperature Pulse Rate 85 85 Respiratory Rate Blood Pressure 176/94 176/94 Blood Pressure [Right] O2 Sat by Pulse 99 Oximetry 07/16/17 07/16/17 07/17/17 22:30 22:34 00:18 Temperature 99.0 F Pulse Rate 85 84 Respiratory 18 16 Rate Blood Pressure 176/94 120/73 Blood Pressure [Right] O2 Sat by Pulse 100 Oximetry 07/17/17 07/17/17 07/17/17 03:18 04:00 07:09 Temperature 98.8 F 99.4 F Pulse Rate 90 82 Respiratory 18 16 20 Rate Blood Pressure 128/79 Blood Pressure 128/81 [Right] O2 Sat by Pulse 99 100 Oximetry - General physical appearance no distress, no pain, other (Looks more comfortable and appears to have more energy) - Eyes normal occular movement - Respiratory normal expansion, normal respiratory effort - Abdomen soft, tender (mild), not distended, not rebound, not guarding, wound (C/D/I) - Integumentary no rash, no growths, no abnormal pigmentation - Psychiatric oriented to time, oriented to person, oriented to place, speech is normal, memory intact - Labs 07/13/17 10:43 07/17/17 07:00 Diabetes panel 07/17/17 Range/Units 07:00 Sodium 140 (137-145) mmol/L Potassium 5.0 (3.6-5.0) mmol/L Chloride 106.4 (98-107) mmol/L Carbon Dioxide 19 L (22-30) mmol/L BUN 17 (7-17) mg/dL Creatinine 0.9 (0.7-1.2) mg/dL Glucose 110 H (65-100) mg/dL Calcium 8.6 (8.4-10.2) mg/dL Calcium panel 07/17/17 Range/Units 07:00 Calcium 8.6 (8.4-10.2) mg/dL Phosphorus 4.40 (2.5-4.5) mg/dL Pituitary panel 07/17/17 Range/Units 07:00 Sodium 140 (137-145) mmol/L Potassium 5.0 (3.6-5.0) mmol/L Chloride 106.4 (98-107) mmol/L Carbon Dioxide 19 L (22-30) mmol/L BUN 17 (7-17) mg/dL Creatinine 0.9 (0.7-1.2) mg/dL Glucose 110 H (65-100) mg/dL Calcium 8.6 (8.4-10.2) mg/dL Adrenal panel 07/17/17 Range/Units 07:00 Sodium 140 (137-145) mmol/L Potassium 5.0 (3.6-5.0) mmol/L Chloride 106.4 (98-107) mmol/L Carbon Dioxide 19 L (22-30) mmol/L BUN 17 (7-17) mg/dL Creatinine 0.9 (0.7-1.2) mg/dL Glucose 110 H (65-100) mg/dL Calcium 8.6 (8.4-10.2) mg/dL
[2017-07-17] MEDS: COREG PO SCH ×2 (09:50→21:57)
[2017-07-17] MEDS: PEPCID IV SCH ×2 (09:50→21:53)
[2017-07-17] MEDS: DIFLUCAN 200 MG/100 ML BAG IV SCH (09:50)
[2017-07-17] MEDS: CATAPRES PO SCH ×2 (09:51→21:57)
[2017-07-17] MEDS: NORVASC PO SCH (09:51)
[2017-07-17] MEDS: DIOVAN PO SCH ×2 (09:51→21:53)
[2017-07-17 13:13] LABS: Hematocrit 23.3 % (30.3-42.9); Hemoglobin 7.2 gm/dl (10.1-14.3); Mean Corpuscular HGB Conc 31 % (30-34); Mean Corpuscular Volume 74 fl (79-97); Platelet Count 514 K/mm3 (140-440); Red Blood Count 3.15 M/mm3 (3.65-5.03)
[2017-07-17 13:15] LABS: Mean Corpuscular Hemoglobin 23 pg (28-32); Red Cell Distribution Width 34.7 % (13.2-15.2)
[2017-07-17] MEDS: PERCOCET 5/325 PO PRN ×3 (13:55→21:57)
--- NOTE | 2017-07-17 14:29 | Progress Note ---
Assessment and Plan Assessment: 1) Severe sepsis: fever resolved, better leukocytosis 56-->>24-->20-->18K; initial etiology: bowel ischemia - gangrene of majority of small bowel and right colon. 2) Peritonitis: secondary to gangrene of majority of small bowel and right colon. Approximately 30 cm of viable small bowel from ligament of treitz, transverse colon and remainder of colon viable. Unclear etiology: ?cocaine ? emboli -S/P Diagnostic laparoscopy, converted to exploratory laparotomy, small bowel resection, right hemicolectomy, temporary closure of abdomen on 07/06 -S/P Peritoneal Washing, enterocolostomy and closure of abdominal wall on 07/09 -TTE EF >55 no clots -CRP=26 -->10 -HIV neg -Viral hepatitis neg -Path - benign gangrenous small bowel, colon and appendix, no malignancy -ANCA neg -CHELSEA neg -C3 low (unclear significance) -CXR repeat 07/12 [place] infiltrates 3) Nausea, vomiting, abdominal pain and diarrhea: due to bowel gangrene -CT - bowels were normal -repeat CT w contrast showed multiple non distended small and large bowel loops ? ileus, no evidence of colitis or enteritis 4) Hypertensive urgency 5) Vaginal bleeding: from fibroids. CT showed uterine fibroids, 2.3 c left ovarian cyst. 6) Right liver lesion ? hemangioma. Viral hep neg 7) Small pericardial effusion 8) EMMA -better 9) Severe anemia: prob from fibroids 10) Cocaine abuse: however a month prior admission Recommendations: -stop zosyn and fluconazole - D106/16 -consider port-A-cath for TPN and remove PICC -Hematology referral for hypercoagulable state -avoid cocaine ID clinic f/u in 3 weeks/ I am signing off Thanks for consultation Rachel Bryant MD Subjective Date of service: 07/17/17 Principal diagnosis: Post-Op Resp Failure on MVS; Ischemic Bowel s/p Ex-Lap; EMMA Interval history: Alert in NAD no fever. Micro: Blood cx 07/03 neg 5/10 neg Urine cx: 07/03 10-100K mixed bacteria Tracheal asp : 07/06 neg /10 neg Abx: zosyn 07/09 Fluconazole 07/05 Previous Abx: Zosyn Levaquin Flagyl Vanco Meropenem 07/05-07/09 Objective - Constitutional Vitals: Vital Signs Temp Pulse Resp BP Pulse Ox 99.3 F 80 16 118/75 100 07/17/17 13:11 07/17/17 13:11 07/17/17 13:11 07/17/17 13:11 07/17/17 13:11 Temperature -Last 24 Hours Temperature 99.3 F Temperature 99.4 F Temperature 98.8 F Temperature 99.0 F Temperature 99.8 F Temperature 99.4 F - Labs CBC & Chem 7: 07/17/17 12:30 07/17/17 07:00 Labs: Abnormal lab results 07/16/17 07/16/17 07/17/17 Range/Units 16:52 22:12 06:08 WBC (4.5-11.0) K/mm3 RBC (3.65-5.03) M/mm3 Hgb (10.1-14.3) gm/dl Hct (30.3-42.9) % MCV (79-97) fl MCH (28-32) pg RDW (13.2-15.2) % Plt Count (140-440) K/mm3 Carbon Dioxide (22-30) mmol/L Glucose (65-100) mg/dL POC Glucose 128 H 117 H 131 H (70-105) 07/17/17 07/17/17 07/17/17 Range/Units 07:00 12:07 12:30 WBC 13.8 H (4.5-11.0) K/mm3 RBC 3.15 L (3.65-5.03) M/mm3 Hgb 7.2 L (10.1-14.3) gm/dl Hct 23.3 L (30.3-42.9) % MCV 74 L (79-97) fl MCH 23 L (28-32) pg RDW 34.7 H (13.2-15.2) % Plt Count 514 H (140-440) K/mm3 Carbon Dioxide 19 L (22-30) mmol/L Glucose 110 H (65-100) mg/dL POC Glucose 149 H (70-105)
--- NOTE | 2017-07-17 16:19 | Progress Note ---
Assessment and Plan Patient is a 42-year-old female with past medical history significant for hypertension which she takes lisinopril 10 mg daily, etoh abuse who presented with c/o abdominal pain and diarrhea. 1. Severe Sepsis due to gangrenous bowel; s/p removal of near complete small intestine; lifelong TPN for nutrition, completed abx per ID 2. EMMA secondary to vasomotor nephropathy with underlying ATN; resolved 3. Peritoneal irritation due to infected bowel, resolved 4. Severe Anemia, Transfuse as need, h/h stable 5. Ischemic/Gangrenous Bowel, s/p resection, on TPN lifelong 6. Worsening luekocytosis, from sepsis, resolved 8. Hypertensive urgency-resolved 9. Menorraghia secondary to Fibroids 10. Etoh use disorder, now stable, no sign of withdrawl 11. Right liver lesion ?Hemangioma 12. Multiple electrolyte abnormalities, repleted 13. Hypothermia from sepsis-Resolved 14. Cocain abuse per hx. Not mentioned on admission. Only alcohol which was minimized. 15. 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 Acute respiratory failure on MV >96 hours; extubated 07/13, resolved case dw CM; she has no paysource and needs to be dc on TPN, awaiting insurance application Hospitalist Physical General appearance: Present: no acute distress - EENT Eyes: Present: PERRL ENT: clear oral mucosa - Neck Neck: Present: supple - Respiratory Respiratory effort: normal Respiratory: bilateral: CTA - Cardiovascular Rhythm: regular Heart Sounds: Present: S1 & S2 - Extremities Extremities: no ischemia Peripheral Pulses: within normal limits - Abdominal General gastrointestinal: soft, other (post surgical changes) - Integumentary Integumentary: Present: clear, warm, dry - Psychiatric Psychiatric: cooperative - Neurologic Neurologic: moves all extremities Subjective Date of service: 07/17/17 Principal diagnosis: Post-Op Resp Failure on MVS; Ischemic Bowel s/p Ex-Lap; EMMA Interval history: Patient seen on exam remained Complain of having a big bowel movement after started on regular diet (diet was placed on patient request for comfort measures only) Objective - Constitutional Vitals: Vital Signs - 12hr 07/17/17 07/17/17 07/17/17 07:09 10:00 13:11 Temperature 99.4 F 99.3 F Pulse Rate 82 82 80 Respiratory 20 16 Rate Blood Pressure 128/79 118/75 O2 Sat by Pulse 100 100 Oximetry 07/17/17 16:05 Temperature 98.9 F Pulse Rate 79 Respiratory 20 Rate Blood Pressure 113/49 O2 Sat by Pulse 99 Oximetry - Labs CBC & Chem 7: 07/17/17 12:30 07/18/17 09:10 Labs: Abnormal lab results 07/16/17 07/16/17 07/17/17 Range/Units 16:52 22:12 06:08 WBC (4.5-11.0) K/mm3 RBC (3.65-5.03) M/mm3 Hgb (10.1-14.3) gm/dl Hct (30.3-42.9) % MCV (79-97) fl MCH (28-32) pg RDW (13.2-15.2) % Plt Count (140-440) K/mm3 Carbon Dioxide (22-30) mmol/L Glucose (65-100) mg/dL POC Glucose 128 H 117 H 131 H (70-105) 07/17/17 07/17/17 07/17/17 Range/Units 07:00 12:07 12:30 WBC 13.8 H (4.5-11.0) K/mm3 RBC 3.15 L (3.65-5.03) M/mm3 Hgb 7.2 L (10.1-14.3) gm/dl Hct 23.3 L (30.3-42.9) % MCV 74 L (79-97) fl MCH 23 L (28-32) pg RDW 34.7 H (13.2-15.2) % Plt Count 514 H (140-440) K/mm3 Carbon Dioxide 19 L (22-30) mmol/L Glucose 110 H (65-100) mg/dL POC Glucose 149 H (70-105)
[2017-07-17] MEDS ORDERED: TPN ADULT 2,016 ML IV SCH (20:00)
[2017-07-18] MEDS: PERCOCET 5/325 PO PRN ×4 (05:15→21:27)
[2017-07-18] MEDS: HEPARIN SUB-Q SCH ×3 (05:15→21:20)
[2017-07-18] MEDS: ZOSYN/NS 4.5GM/100ML 4.5 GM/100 ML VIAL IV SCH (05:15)
[2017-07-18 07:16] LABS: BUN/Creatinine Ratio 18; Blood Urea Nitrogen 16 mg/dL (7-17); Calcium 8.6 mg/dL (8.4-10.2); Hemolysis Index 0
[2017-07-18] MEDS: DIFLUCAN 200 MG/100 ML BAG IV SCH (10:01)
[2017-07-18] MEDS: DIOVAN PO SCH ×2 (10:01→21:18)
[2017-07-18] MEDS: COREG PO SCH ×2 (10:02→21:18)
[2017-07-18] MEDS: PEPCID IV SCH (10:02)
[2017-07-18] MEDS: CATAPRES PO SCH ×2 (10:03→21:19)
[2017-07-18] MEDS: NORVASC PO SCH (10:03)
[2017-07-18 10:16] LABS: BUN/Creatinine Ratio 19; Blood Urea Nitrogen 17 mg/dL (7-17); Calcium 8.1 mg/dL (8.4-10.2); Hemolysis Index 0
[2017-07-18] MEDS: TRANSDERM-SCOP TD SCH (15:13)
--- NOTE | 2017-07-18 16:14 | Progress Note ---
Assessment and Plan Assessment: 1) Severe sepsis: fever resolved, better leukocytosis 56-->>24-->20-->18-->13K ; initial etiology: bowel ischemia 2) Peritonitis: secondary to gangrene of majority of small bowel and right colon. Approximately 30 cm of viable small bowel from ligament of treitz, transverse colon and remainder of colon viable. Unclear etiology: thrombosis due to lupus anticoagulant -S/P Diagnostic laparoscopy, converted to exploratory laparotomy, small bowel resection, right hemicolectomy, temporary closure of abdomen on 07/06 -S/P Peritoneal Washing, enterocolostomy and closure of abdominal wall on 07/09 -TTE EF >55 no clots -CRP=26 -->10 -HIV neg -Viral hepatitis neg -Path - benign gangrenous small bowel, colon and appendix, no malignancy -ANCA neg -CHELSEA neg -C3 low (unclear significance) -CXR repeat 07/12 Sanchez infiltrates -lupus anticoagulant positive on 07/06/17 3) Nausea, vomiting, abdominal pain and diarrhea: due to bowel gangrene -CT - bowels were normal -repeat CT w contrast showed multiple non distended small and large bowel loops ? ileus, no evidence of colitis or enteritis 4) Hypertensive urgency 5) Vaginal bleeding: from fibroids. CT showed uterine fibroids, 2.3 c left ovarian cyst. 6) Right liver lesion ? hemangioma. Viral hep neg 7) Small pericardial effusion 8) EMMA -better 9) Severe anemia: prob from fibroids 10) Cocaine abuse: however a month prior admission Recommendations: -consider port-A-cath for TPN and remove PICC -Hematology referral for hypercoagulable state ID clinic f/u in 3 weeks/ I am signing off Thanks for consultation Rachel Bryant MD Subjective Date of service: 07/18/17 Principal diagnosis: Post-Op Resp Failure on MVS; Ischemic Bowel s/p Ex-Lap; EMMA Interval history: Alert in NAD no fever. Micro: Blood cx 07/03 neg /10 neg Urine cx: 07/03 10-100K mixed bacteria Tracheal asp : 07/06 neg 10 neg Abx: zosyn 07/09 Fluconazole 07/05 Previous Abx: Zosyn Levaquin Flagyl Vanco Meropenem 07/05-07/09 Objective - Exam Narrative Exam: Alert talking in NAD on RA JULIANN, clear OP Neck no LN Lungs CTA sanchez CV rrr Abd soft +surg wound withs marilyn Ext no edema Skin no rash Neuro alert talking - Constitutional Vitals: Vital Signs Temp Pulse Resp BP Pulse Ox 98.7 F 70 18 122/67 99 07/18/17 15:41 07/18/17 15:41 07/18/17 15:41 07/18/17 15:41 07/18/17 15:41 Temperature -Last 24 Hours Temperature 98.7 F Temperature 99.0 F Temperature 99.0 F Temperature 98.0 F Temperature 98.6 F Temperature 99.0 F - Labs CBC & Chem 7: 07/17/17 12:30 07/18/17 09:10 Labs: Abnormal lab results 07/17/17 07/18/17 07/18/17 Range/Units 17:47 06:32 06:50 Sodium 132 L D (137-145) mmol/L Potassium 5.8 H (3.6-5.0) mmol/L Chloride 95.0 L (98-107) mmol/L Glucose (65-100) mg/dL POC Glucose 106 H 148 H (70-105) Calcium (8.4-10.2) mg/dL Phosphorus 5.70 H D (2.5-4.5) mg/dL Magnesium 2.90 H (1.7-2.3) mg/dL 07/18/17 07/18/17 Range/Units 09:10 11:08 Sodium (137-145) mmol/L Potassium (3.6-5.0) mmol/L Chloride (98-107) mmol/L Glucose 121 H (65-100) mg/dL POC Glucose 151 H (70-105) Calcium 8.1 L (8.4-10.2) mg/dL Phosphorus 4.60 H (2.5-4.5) mg/dL Magnesium (1.7-2.3) mg/dL
--- NOTE | 2017-07-18 16:25 | Progress Note ---
Assessment and Plan Patient is a 42-year-old female with past medical history significant for hypertension which she takes lisinopril 10 mg daily, etoh abuse who presented with c/o abdominal pain and diarrhea. 1. Severe Sepsis due to gangrenous bowel; s/p removal of near complete small intestine; lifelong TPN for nutrition, completed abx per ID 2. EMMA secondary to vasomotor nephropathy with underlying ATN; resolved 3. Peritoneal irritation due to infected bowel, resolved 4. Severe Anemia, Transfuse as need, h/h stable 5. Ischemic/Gangrenous Bowel, s/p resection, on TPN lifelong 6. Worsening luekocytosis, from sepsis, resolved 8. Hypertensive urgency-resolved 9. Menorraghia secondary to Fibroids 10. Etoh use disorder, now stable, no sign of withdrawl 11. Right liver lesion ?Hemangioma 12. Multiple electrolyte abnormalities, repleted 13. Hypothermia from sepsis-Resolved 14. Cocain abuse per hx. Not mentioned on admission. Only alcohol which was minimized. 15. 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 Acute respiratory failure on MV >96 hours; extubated 07/13, resolved 17. Positive Lupus anticoagulant, consult heamatology case dw CM; she has no paysource and needs to be dc on TPN, awaiting insurance application Hospitalist Physical General appearance: Present: no acute distress - EENT Eyes: Present: PERRL ENT: clear oral mucosa - Neck Neck: Present: supple - Respiratory Respiratory effort: normal Respiratory: bilateral: CTA - Cardiovascular Rhythm: regular Heart Sounds: Present: S1 & S2 - Extremities Extremities: no ischemia Peripheral Pulses: within normal limits - Abdominal General gastrointestinal: soft, other (post surgical changes) - Integumentary Integumentary: Present: clear, warm, dry - Psychiatric Psychiatric: cooperative - Neurologic Neurologic: moves all extremities Subjective Date of service: 07/18/17 Principal diagnosis: Post-Op Resp Failure on MVS; Ischemic Bowel s/p Ex-Lap; EMMA Interval history: Patient seen on exam remained Complain of having a big bowel movement after started on regular diet (diet was placed on patient request for comfort measures only) She is positive for lupus anticoagulant Objective - Constitutional Vitals: Vital Signs - 12hr 07/18/17 07/18/17 07/18/17 06:00 07:35 09:36 Temperature 98.0 F 99.0 F Pulse Rate 78 69 Respiratory 18 20 Rate Blood Pressure 122/71 Blood Pressure 130/68 [Right] O2 Sat by Pulse 100 100 95 Oximetry 07/18/17 07/18/17 07/18/17 10:01 10:02 10:03 Temperature Pulse Rate 69 69 69 Respiratory 20 Rate Blood Pressure 122/71 Blood Pressure [Right] O2 Sat by Pulse Oximetry 07/18/17 07/18/17 11:26 15:41 Temperature 99.0 F 98.7 F Pulse Rate 73 70 Respiratory 18 18 Rate Blood Pressure 138/69 122/67 Blood Pressure [Right] O2 Sat by Pulse 100 99 Oximetry - Labs CBC & Chem 7: 07/17/17 12:30 07/19/17 06:05 Labs: Abnormal lab results 07/17/17 07/18/17 07/18/17 Range/Units 17:47 06:32 06:50 Sodium 132 L D (137-145) mmol/L Potassium 5.8 H (3.6-5.0) mmol/L Chloride 95.0 L (98-107) mmol/L Glucose (65-100) mg/dL POC Glucose 106 H 148 H (70-105) Calcium (8.4-10.2) mg/dL Phosphorus 5.70 H D (2.5-4.5) mg/dL Magnesium 2.90 H (1.7-2.3) mg/dL 07/18/17 07/18/17 Range/Units 09:10 11:08 Sodium (137-145) mmol/L Potassium (3.6-5.0) mmol/L Chloride (98-107) mmol/L Glucose 121 H (65-100) mg/dL POC Glucose 151 H (70-105) Calcium 8.1 L (8.4-10.2) mg/dL Phosphorus 4.60 H (2.5-4.5) mg/dL Magnesium (1.7-2.3) mg/dL
[2017-07-18] MEDS ORDERED: TPN ADULT 2,016 ML IV SCH (20:00)
[2017-07-18] MEDS: PEPCID PO SCH (21:18)
--- NOTE | 2017-07-18 22:22 | Hem/Onc Consultation ---
History of Present Illness - Reason for Consult Consult date: 07/18/17 - History of Present Illness dictated lupus anticoag present- high risk for thrombosis(bowel ischemia could be from it or from sepsis or substance abuse) aggressive dvt prophylaxis tob and cocaine cessation if thrombosis- full a/coag repeat lupus a/coag in 3 months anemia sec to bleeding thrombocytosis- sec to infection and poss fe def leucocytosis improving- Past History Past Medical History: No medical history, hypertension Past Surgical History: No surgical history Social history: lives with family, alcohol abuse Medications and Allergies Allergies Allergy/AdvReac Type Severity Reaction Status Date / Time No Known Allergies Allergy Verified 07/03/17 05:14 Home Medications Medication Instructions Recorded Confirmed Last Taken Type Lisinopril [Zestril TAB] 10 mg PO QDAY 07/03/17 07/03/17 Unknown History Active Meds: Active Medications Amlodipine Besylate (Norvasc) 10 mg PO QDAY [facility] Last Admin: 07/18/17 10:03 Dose: 10 mg Lipase/Protease/Amylase (Pancreaze Dr 10,500 Unit) 1 each FEEDTUBE PRN PRN PRN Reason: For Clogged Feeding Tube Carvedilol (Coreg) 12.5 mg PO BID [facility] Last Admin: 07/18/17 21:18 Dose: 12.5 mg Clonidine HCl (Catapres) 0.1 mg PO Q12HR [facility] Last Admin: 07/18/17 21:19 Dose: 0.1 mg Famotidine (Pepcid) 20 mg PO BID [facility] Last Admin: 07/18/17 21:18 Dose: 20 mg Heparin Sodium (Porcine) (Heparin) 5,000 unit SUB-Q Q8HR [facility] Last Admin: 07/18/17 21:20 Dose: 5,000 unit Hydralazine HCl (Apresoline) 10 mg IV Q4H PRN PRN Reason: Hypertension Last Admin: 07/15/17 09:13 Dose: 10 mg Hydrophilic Ointment (Vaseline Lip Therapy) 1 applic TP Q2HR PRN PRN Reason: Dry Lips Amino Acids/Electrolytes/Dextrose (Tpn Adult) 2,016 mls @ 84 mls/hr IV DAILY@ 2000 RADHA; Protocol Stop: 07/19/17 19:59 Last Admin: 07/18/17 21:20 Dose: 84 mls/hr Labetalol HCl (Normodyne) 20 mg IV Q4H PRN PRN Reason: bp > 160/100 Last Admin: 07/16/17 04:11 Dose: 20 mg Lorazepam (Ativan) 1 mg IV Q6HR PRN PRN Reason: Agitation Last Admin: 07/15/17 20:53 Dose: 1 mg Morphine Sulfate (Morphine) 2 mg IV Q4H PRN PRN Reason: Pain, Moderate (4-6) Last Admin: 07/17/17 09:51 Dose: 2 mg Multi-Ingred Cream/Lotion/Oil/Oint (Artificial Tears Ophth Oint) 1 applic OU Q4HR PRN PRN Reason: Dry Eye(s) Oxycodone/Acetaminophen (Percocet 5/325) 1 tab PO Q4H PRN PRN Reason: Pain, Moderate (4-6) Last Admin: 07/18/17 16:40 Dose: 1 tab Scopolamine (Transderm-Scop) 1 each TD Q3D [facility] Last Admin: 07/18/17 15:13 Dose: 1 each Simple Syrup (Simple Syrup) 15 ml FEEDTUBE PRN PRN PRN Reason: Hypoglycemia Simple Syrup (Simple Syrup) 30 ml FEEDTUBE PRN PRN PRN Reason: Hypoglycemia Sodium Bicarbonate (Sodium Bicarbonate) 325 mg FEEDTUBE PRN PRN PRN Reason: For Clogged Feeding Tube Valsartan (Diovan) 160 mg PO BID [facility] Last Admin: 07/18/17 21:18 Dose: 160 mg Exam - Constitutional Vitals: Last Vital Signs Temp 98.7 F 07/18/17 15:41 Pulse 63 07/18/17 21:19 Resp 18 07/18/17 18:00 BP 133/54 07/18/17 21:19 Pulse Ox 100 07/18/17 18:00 Results - Labs lab Results: Laboratory Results - last 24 hr 07/18/17 07/18/17 07/18/17 06:32 06:50 09:10 Sodium 132 L D 138 Potassium 5.8 H 4.6 D Chloride 95.0 L 101.2 Carbon Dioxide 22 25 Anion Gap 21 16 BUN 16 17 Creatinine 0.9 0.9 Estimated GFR > 60 > 60 BUN/Creatinine Ratio 18 19 Glucose TNR 121 H POC Glucose 148 H Calcium 8.6 8.1 L Phosphorus 5.70 H D 4.60 H Magnesium 2.90 H 1.80 07/18/17 07/18/17 07/18/17 11:08 16:03 22:05 Sodium Potassium Chloride Carbon Dioxide Anion Gap BUN Creatinine Estimated GFR BUN/Creatinine Ratio Glucose POC Glucose 151 H 142 H 147 H Calcium Phosphorus Magnesium
[2017-07-19] MEDS: PERCOCET 5/325 PO PRN ×4 (01:45→20:35)
--- NOTE | 2017-07-19 05:37 | Consultation ---
REFERRING PHYSICIAN: Cookie Saba MD. REASON FOR CONSULTATION: Positive lupus anticoagulant. HISTORY OF PRESENT ILLNESS: The patient is a 42-year-old female who has history of hypertension, who presented to the hospital with severe diffuse abdominal pain. She had associated nausea, emesis, diarrhea. She was initially closely monitored for sepsis and enteritis. She also had elevated WBC count. The patient during her hospital course was ended up having ileus requiring exploratory laparotomy. She underwent exploratory laparotomy on 07/06/2017 and she was found to have gangrene of majority of the small bowel and right colon. She underwent removal of the small bowel and right hemicolectomy and temporary closure of the abdomen. For the workup, she underwent lab work, which included a lupus anticoagulant, which was positive. Hematology/oncology consult was called for evaluation. The patient is recovering from surgery. She denies any previous history of thrombosis. She does not take any control pills. She does smoke cigarettes and also has history of cocaine abuse. She denies any family history of thrombosis. The patient has been having vaginal bleeding. She also has history of heavy menstrual period. The patient's final pathology on the bowel resection showed there was no evidence of malignancy. There was benign gangrene of small intestine, benign ischemic colon and appendix, benign viable proximal and distal surgical margins. PAST MEDICAL HISTORY: Otherwise remarkable for hypertension. SOCIAL HISTORY: Positive for tobacco abuse. She also has history of alcohol abuse and cocaine abuse. PHYSICAL EXAMINATION: GENERAL: The patient is awake and oriented. HEENT: Unremarkable. CHEST: Clear. CARDIOVASCULAR: Regular rate and rhythm. ABDOMEN: Has a midline abdominal incision with marilyn. EXTREMITIES: Have no clubbing, cyanosis, or edema. PERTINENT LABORATORY DATA: Shows her hemoglobin on 07/17/2017 to be 7.2, MCV 74, white count 13.8, platelets 514,000. Her hepatitis profile was unremarkable. HIV was unremarkable. CHELSEA was negative. Complements showed a low C3 of 77, C4 of 16. The patient's lupus anticoagulant was positive. ASSESSMENT: 1. Positive lupus anticoagulant. The patient presented with evidence of bowel ischemia. Cause of bowel ischemia could be related to lupus anticoagulant. Other causes could be sepsis and/or colitis along with cocaine abuse. 2. Microcytic anemia, possibly from heavy menstrual periods. 3. Tobacco and cocaine abuse. 4. Hypertension. RECOMMENDATION AND PLAN: At this time, we will continue aggressive DVT prophylaxis. If the patient develops episode of thrombosis, anticoagulation will be warranted. Strongly recommended for the patient to quit smoking and cocaine use. We will also repeat lupus anticoagulant in about 3 months. The patient has microcytic anemia, we will do iron studies. JOB# [id number] AMYS/NTS
[2017-07-19] MEDS: HEPARIN SUB-Q SCH ×3 (05:49→22:53)
[2017-07-19 07:13] LABS: % Iron Saturation 13.08 %; BUN/Creatinine Ratio 19; Blood Urea Nitrogen 15 mg/dL (7-17); Calcium 8.7 mg/dL (8.4-10.2); Hemolysis Index 0; Iron 34 ug/dL (37-170); Total Iron Binding Capacity 260 mcg/dL (250-450); Transferrin 227 mg/dl (192-382)
[2017-07-19] MEDS: DIOVAN PO SCH ×2 (10:44→22:52)
[2017-07-19] MEDS: CATAPRES PO SCH ×2 (10:44→22:51)
[2017-07-19] MEDS: PEPCID PO SCH ×2 (10:44→22:50)
[2017-07-19] MEDS: COREG PO SCH ×2 (10:45→22:53)
[2017-07-19] MEDS: NORVASC PO SCH (10:45)
--- NOTE | 2017-07-19 13:46 | Hem/Onc Progress Note ---
Assessment and Plan - Patient Problems (1) Ischemia, bowel Current Visit: Yes Status: Acute Plan to address problem: Observe for now. Needs outpatient follow up to recheck lupus anticoagulant. Subjective Date of service: 07/19/17 Interval history: She is out of bed. Mild wound soreness. No bleeding. Objective - Constitutional Vitals: Last Vital Signs Temp 98.4 F 07/19/17 11:21 Pulse 67 07/19/17 11:21 Resp 18 07/19/17 11:21 BP 119/57 07/19/17 11:21 Pulse Ox 97 07/19/17 11:21 Pain Intensity (0-10): 03/14 General appearance: mild distress - EENT Eyes: PERRL ENT: hearing intact Lymph node exam: negative cervical - Neck Neck: supple - Respiratory Respiratory effort: Positive: normal Respiratory: bilateral: CTA - Cardiovascular Rhythm: regular - Labs Lab Results: Laboratory Results - last 24 hr 07/18/17 07/18/17 07/18/17 06:50 09:10 16:03 Percent Retic Sodium Potassium Chloride Carbon Dioxide Anion Gap BUN Creatinine Estimated GFR BUN/Creatinine Ratio Glucose TNR 121 H POC Glucose 142 H Calcium Phosphorus Magnesium Iron TIBC % Saturation Transferrin Ferritin Vitamin B12 Folate 07/18/17 07/19/17 07/19/17 22:05 05:54 06:05 Percent Retic Sodium 137 Potassium 4.2 Chloride 100.4 Carbon Dioxide 24 Anion Gap 17 BUN 15 Creatinine 0.8 Estimated GFR > 60 BUN/Creatinine Ratio 19 Glucose 116 H POC Glucose 147 H 138 H Calcium 8.7 Phosphorus 4.20 Magnesium 1.90 Iron 34 L TIBC 260 % Saturation 13.08 Transferrin 227 Ferritin Vitamin B12 Folate 07/19/17 07/19/17 07/19/17 06:05 06:05 06:05 Percent Retic 2.42 Sodium Potassium Chloride Carbon Dioxide Anion Gap BUN Creatinine Estimated GFR BUN/Creatinine Ratio Glucose POC Glucose Calcium Phosphorus Magnesium Iron TIBC % Saturation Transferrin Ferritin 195.3 Vitamin B12 1373 H Folate 07/19/17 07/19/17 06:05 11:27 Percent Retic Sodium Potassium Chloride Carbon Dioxide Anion Gap BUN Creatinine Estimated GFR BUN/Creatinine Ratio Glucose POC Glucose 135 H Calcium Phosphorus Magnesium Iron TIBC % Saturation Transferrin Ferritin Vitamin B12 Folate 10.31
--- NOTE | 2017-07-19 15:56 | Progress Note ---
Assessment and Plan Patient is a 42-year-old female with past medical history significant for hypertension which she takes lisinopril 10 mg daily, etoh abuse who presented with c/o abdominal pain and diarrhea. 1. Severe Sepsis due to gangrenous bowel; s/p removal of near complete small intestine; lifelong TPN for nutrition, completed abx per ID 2. EMMA secondary to vasomotor nephropathy with underlying ATN; resolved 3. Peritoneal irritation due to infected bowel, resolved 4. Severe Anemia, Transfuse as need, h/h stable 5. Ischemic/Gangrenous Bowel, s/p resection, on TPN lifelong 6. Worsening luekocytosis, from sepsis, resolved 8. Hypertensive urgency-resolved 9. Menorraghia secondary to Fibroids 10. Etoh use disorder, now stable, no sign of withdrawl 11. Right liver lesion ?Hemangioma 12. Multiple electrolyte abnormalities, repleted 13. Hypothermia from sepsis-Resolved 14. Cocain abuse per hx. Not mentioned on admission. Only alcohol which was minimized. 15. 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 Acute respiratory failure on MV >96 hours; extubated 07/13, resolved 17. Positive Lupus anticoagulant, consult heamatology and recommended to f/u outpt case dw CM; she has no paysource and needs to be dc on TPN, awaiting insurance application Hospitalist Physical General appearance: Present: no acute distress - EENT Eyes: Present: PERRL ENT: clear oral mucosa - Neck Neck: Present: supple - Respiratory Respiratory effort: normal Respiratory: bilateral: CTA - Cardiovascular Rhythm: regular Heart Sounds: Present: S1 & S2 - Extremities Extremities: no ischemia Peripheral Pulses: within normal limits - Abdominal General gastrointestinal: soft, other (post surgical changes) - Integumentary Integumentary: Present: clear, warm, dry - Psychiatric Psychiatric: cooperative - Neurologic Neurologic: moves all extremities Subjective Date of service: 07/19/17 Principal diagnosis: Post-Op Resp Failure on MVS; Ischemic Bowel s/p Ex-Lap; EMMA Interval history: Patient seen on exam remained Complain of having a big bowel movement after started on regular diet (diet was placed on patient request for comfort measures only) She is positive for lupus anticoagulant Objective - Constitutional Vitals: Vital Signs - 12hr 07/19/17 07/19/17 07/19/17 04:01 07:58 08:28 Temperature 99.1 F 99.8 F H Pulse Rate 74 71 Respiratory 18 20 18 Rate Blood Pressure 122/72 132/70 O2 Sat by Pulse 99 100 Oximetry 07/19/17 07/19/17 07/19/17 10:44 10:45 11:21 Temperature 98.4 F Pulse Rate 71 71 67 Respiratory 18 Rate Blood Pressure 118/76 118/76 119/57 O2 Sat by Pulse 97 Oximetry 07/19/17 15:42 Temperature Pulse Rate Respiratory 18 Rate Blood Pressure O2 Sat by Pulse Oximetry - Labs CBC & Chem 7: 07/17/17 12:30 07/20/17 06:10 Labs: Abnormal lab results 07/18/17 07/18/17 07/19/17 Range/Units 16:03 22:05 05:54 Glucose (65-100) mg/dL POC Glucose 142 H 147 H 138 H (70-105) Iron (37-170) ug/dL Vitamin B12 (211-911) pg/mL 07/19/17 07/19/17 07/19/17 Range/Units 06:05 06:05 11:27 Glucose 116 H (65-100) mg/dL POC Glucose 135 H (70-105) Iron 34 L (37-170) ug/dL Vitamin B12 1373 H (211-911) pg/mL
[2017-07-19] MEDS ORDERED: TPN ADULT 2,016 ML IV SCH (20:00)
[2017-07-20] MEDS: PERCOCET 5/325 PO PRN ×3 (05:55→18:00)
[2017-07-20] MEDS: HEPARIN SUB-Q SCH ×3 (05:56→22:40)
[2017-07-20 08:09] LABS: BUN/Creatinine Ratio 23; Blood Urea Nitrogen 18 mg/dL (7-17); Calcium 8.9 mg/dL (8.4-10.2); Hemolysis Index 0
--- NOTE | 2017-07-20 08:50 | Hem/Onc Progress Note ---
Assessment and Plan continue to monitor aggressive dvt propylaxis Subjective Date of service: 07/20/17 Interval history: pt feels fair. ambulates Objective - Constitutional Vitals: Last Vital Signs Temp 99.1 F 07/20/17 07:32 Pulse 63 07/20/17 07:32 Resp 18 07/20/17 07:32 BP 109/60 07/20/17 07:32 Pulse Ox 100 07/20/17 07:32 Performance status: 3-limited selfcare - Respiratory Respiratory effort: Positive: normal - Cardiovascular Rhythm: regular Extremities: No edema - Gastrointestinal General gastrointestinal: Present: soft (midline incision) - Labs Lab Results: Laboratory Results - last 24 hr 07/19/17 07/20/17 11:27 06:10 Sodium 135 L Potassium 4.5 Chloride 100.5 Carbon Dioxide 27 Anion Gap 12 BUN 18 H Creatinine 0.8 Estimated GFR > 60 BUN/Creatinine Ratio 23 Glucose 106 H POC Glucose 135 H Calcium 8.9 Phosphorus 4.30 Magnesium 2.00
[2017-07-20] MEDS: COREG PO SCH ×2 (09:58→21:17)
[2017-07-20] MEDS: CATAPRES PO SCH ×2 (09:58→22:44)
[2017-07-20] MEDS: PEPCID PO SCH ×2 (09:58→21:17)
[2017-07-20] MEDS: DIOVAN PO SCH ×2 (09:58→22:45)
[2017-07-20] MEDS: NORVASC PO SCH (09:58)
[2017-07-20 12:53] LABS: Hematocrit 23.2 % (30.3-42.9); Hemoglobin 7.4 gm/dl (10.1-14.3); Mean Corpuscular HGB Conc 32 % (30-34); Mean Corpuscular Hemoglobin 24 pg (28-32); Mean Corpuscular Volume 75 fl (79-97); Platelet Count 523 K/mm3 (140-440); Red Blood Count 3.09 M/mm3 (3.65-5.03); Red Cell Distribution Width 33.2 % (13.2-15.2)
[2017-07-20 13:39] LABS: Basophils % (Manual) 0 % (0.0-1.8); Total Cells Counted 100
[2017-07-20 13:40] LABS: Anisocytosis 2+; Hypochromasia 2+; Macrocytosis 1+; Ovalocytes Few; Schistocytes Rare; Tear Drop Cells Few
[2017-07-20 13:41] LABS: Large Platelets Few; Platelet Estimate Cons
--- NOTE | 2017-07-20 16:37 | Progress Note ---
Assessment and Plan - Patient Problems (1) Ischemia, bowel Current Visit: Yes Status: Acute Plan to address problem: Pt stable. s/p enteroenterostomy and closure of abdominal wall - / - POD#11. - Advance to consistent carbo diet (for comfort). Diarrhea is common. Have given her information on diet effects for patients with short gut syndrome. Will try diet with low sugar to see if she can tolerate that better. - Will need to continue TPN indefintely. Can begin cycling at any time. - Incision looks good. No clinical signs to suggest anastomotic leak - ok to plan disposition from my standpoint. Please call with questions. Will follow peripherally. Subjective Date of service: 07/20/17 Patient Reports: Positive: feels better, pain is less, diarrhea (3-4x/day at most. Liquid), other (wants to eat). Negative: nausea, vomiting Objective Vital Signs - 12hr 07/20/17 07/20/17 07:32 11:49 Temperature 99.1 F 99.1 F Pulse Rate 63 64 Respiratory 18 18 Rate Blood Pressure 109/60 109/62 O2 Sat by Pulse 100 100 Oximetry - General physical appearance no distress, no pain, other (Looks better) - Respiratory normal expansion, normal respiratory effort - Abdomen soft, not tender, not distended, not guarding, not rigid, other (Incision C/D/I - mairlyn removed. Incision steri-stripped. ) - Labs 07/20/17 12:30 07/20/17 06:10 Diabetes panel 07/20/17 Range/Units 06:10 Sodium 135 L (137-145) mmol/L Potassium 4.5 (3.6-5.0) mmol/L Chloride 100.5 (98-107) mmol/L Carbon Dioxide 27 (22-30) mmol/L BUN 18 H (7-17) mg/dL Creatinine 0.8 (0.7-1.2) mg/dL Glucose 106 H (65-100) mg/dL Calcium 8.9 (8.4-10.2) mg/dL Calcium panel 07/20/17 Range/Units 06:10 Calcium 8.9 (8.4-10.2) mg/dL Phosphorus 4.30 (2.5-4.5) mg/dL Pituitary panel 07/20/17 Range/Units 06:10 Sodium 135 L (137-145) mmol/L Potassium 4.5 (3.6-5.0) mmol/L Chloride 100.5 (98-107) mmol/L Carbon Dioxide 27 (22-30) mmol/L BUN 18 H (7-17) mg/dL Creatinine 0.8 (0.7-1.2) mg/dL Glucose 106 H (65-100) mg/dL Calcium 8.9 (8.4-10.2) mg/dL Adrenal panel 07/20/17 Range/Units 06:10 Sodium 135 L (137-145) mmol/L Potassium 4.5 (3.6-5.0) mmol/L Chloride 100.5 (98-107) mmol/L Carbon Dioxide 27 (22-30) mmol/L BUN 18 H (7-17) mg/dL Creatinine 0.8 (0.7-1.2) mg/dL Glucose 106 H (65-100) mg/dL Calcium 8.9 (8.4-10.2) mg/dL
--- NOTE | 2017-07-20 17:52 | Progress Note ---
Assessment and Plan Patient is a 42-year-old female with past medical history significant for hypertension which she takes lisinopril 10 mg daily, etoh abuse who presented with c/o abdominal pain and diarrhea. 1. Severe Sepsis due to gangrenous bowel; s/p removal of near complete small intestine; lifelong TPN for nutrition, completed abx per ID 2. EMMA secondary to vasomotor nephropathy with underlying ATN; resolved 3. Peritoneal irritation due to infected bowel, resolved 4. Severe Anemia, Transfuse as need, h/h stable 5. Ischemic/Gangrenous Bowel, s/p resection, on TPN lifelong 6. Worsening luekocytosis, from sepsis, resolved 8. Hypertensive urgency-resolved 9. Menorraghia secondary to Fibroids 10. Etoh use disorder, now stable, no sign of withdrawl 11. Right liver lesion ?Hemangioma 12. Multiple electrolyte abnormalities, repleted 13. Hypothermia from sepsis-Resolved 14. Cocain abuse per hx. Not mentioned on admission. Only alcohol which was minimized. 15. 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 Acute respiratory failure on MV >96 hours; extubated 07/13, resolved 17. Positive Lupus anticoagulant, consult heamatology and recommended to f/u outpt case dw CM; she has no paysource and needs to be dc on TPN, awaiting insurance application Hospitalist Physical General appearance: Present: no acute distress - EENT Eyes: Present: PERRL ENT: clear oral mucosa - Neck Neck: Present: supple - Respiratory Respiratory effort: normal Respiratory: bilateral: CTA - Cardiovascular Rhythm: regular Heart Sounds: Present: S1 & S2 - Extremities Extremities: no ischemia Peripheral Pulses: within normal limits - Abdominal General gastrointestinal: soft, other (post surgical changes) - Integumentary Integumentary: Present: clear, warm, dry - Psychiatric Psychiatric: cooperative - Neurologic Neurologic: moves all extremities Subjective Date of service: 07/20/17 Principal diagnosis: Post-Op Resp Failure on MVS; Ischemic Bowel s/p Ex-Lap; EMMA Interval history: Patient seen on examined now placed on low carb diet Objective - Constitutional Vitals: Vital Signs - 12hr 07/20/17 07/20/17 07:32 11:49 Temperature 99.1 F 99.1 F Pulse Rate 63 64 Respiratory 18 18 Rate Blood Pressure 109/60 109/62 O2 Sat by Pulse 100 100 Oximetry - Labs CBC & Chem 7: 07/20/17 12:30 07/21/17 06:00 Labs: Abnormal lab results 07/19/17 07/20/17 07/20/17 Range/Units 21:18 06:10 06:22 RBC (3.65-5.03) M/mm3 Hgb (10.1-14.3) gm/dl Hct (30.3-42.9) % MCV (79-97) fl MCH (28-32) pg RDW (13.2-15.2) % Plt Count (140-440) K/mm3 Seg Neuts % (Manual) (40.0-70.0) % Monocytes % (Manual) (0.0-7.3) % Monocytes # (Manual) (0.0-0.8) K/mm3 Sodium 135 L (137-145) mmol/L BUN 18 H (7-17) mg/dL Glucose 106 H (65-100) mg/dL POC Glucose 134 H 141 H (70-105) 07/20/17 07/20/17 07/20/17 Range/Units 11:54 12:30 17:33 RBC 3.09 L (3.65-5.03) M/mm3 Hgb 7.4 L (10.1-14.3) gm/dl Hct 23.2 L (30.3-42.9) % MCV 75 L (79-97) fl MCH 24 L (28-32) pg RDW 33.2 H (13.2-15.2) % Plt Count 523 H (140-440) K/mm3 Seg Neuts % (Manual) 74.0 H (40.0-70.0) % Monocytes % (Manual) 9.0 H (0.0-7.3) % Monocytes # (Manual) 0.9 H (0.0-0.8) K/mm3 Sodium (137-145) mmol/L BUN (7-17) mg/dL Glucose (65-100) mg/dL POC Glucose 152 H 134 H (70-105)
[2017-07-20] MEDS ORDERED: TPN ADULT 2,016 ML IV SCH (20:00)
--- NOTE | 2017-07-20 20:08 | Progress Note ---
Assessment and Plan Patient complaining slight cough with productive white sputum. No complaint of chest pain or shortness of breath. Running very low grade fever 99.1 F. Patient is on room air. O2 saturation 100% - Patient Problems (1) Severe sepsis Current Visit: Yes Status: Acute Plan to address problem: Patient treated with broad spectrum antbiotic. Patient off the antibiotics now. (2) Abdominal pain Current Visit: Yes Status: Acute Plan to address problem: S/P abdominal surgery. Abdominal pain getting better. (3) Alcohol abuse Current Visit: Yes Status: Acute Plan to address problem: Management as per primary care. (4) Anemia requiring transfusions Current Visit: Yes Status: Acute Plan to address problem: Management as per primary and Hematology. (5) Dysfunctional uterine bleeding Current Visit: Yes Status: Acute Plan to address problem: Management as per OFFICE REP. (6) Acute bronchitis Current Visit: Yes Status: Acute Plan to address problem: Doxycycline 100mg po bid x 1 week. Chest xray PA and lateral tomorrow. Subjective Date of service: 07/20/17 Principal diagnosis: Post-Op Resp Failure on MVS; Ischemic Bowel s/p Ex-Lap; EMMA Interval history: Patient complaining slight cough with productive white sputum. No complaint of chest pain or shortness of breath. Running very low grade fever 99.1 F. Patient is on room air. O2 saturation 100% Objective Vital Signs - 12hr 07/20/17 11:49 Temperature 99.1 F Pulse Rate 64 Respiratory 18 Rate Blood Pressure 109/62 O2 Sat by Pulse 100 Oximetry Constitutional: no acute distress, alert Eyes: non-icteric ENT: oropharynx moist Neck: supple, no lymphadenopathy, no JVD, other (no thyromegaly) Effort: normal Ascultation: Bilateral: diminished breath sounds (bases), rhonchi Percussion: Bilateral: not dull Cardiovascular: regular rate and rhythm, other (No R/M) Gastrointestinal: hypoactive bowel sounds, non-distended, other (no palpable HSM ; clean dry wound site with marilyn) Integumentary: normal Extremities: no cyanosis, no edema, pulses normal, no ischemia or petechiae Neurologic: normal mental status, non-focal exam, pupils equal and round, CN II- XII normal, motor strength normal and Psychiatric: mood appropriate, affect normal, anxious CBC and BMP: 07/20/17 12:30 07/20/17 06:10 ABG, PT/INR, D-dimer: ABG POC ABG pH 7.459 (7.35-7.45) H 07/13/17 08:26 POC ABG pCO2 40.4 (35-45) 07/13/17 08:26 POC ABG pO2 99 (80-105) 07/13/17 08:26 POC ABG HCO3 28.6 07/13/17 08:26 POC ABG Total CO2 30 07/13/17 08:26 POC ABG O2 Sat 98 07/13/17 08:26 PT/INR, D-dimer PT 12.5 Sec. (12.2-14.9) 07/03/17 06:19 INR 0.89 (0.87-1.13) 07/03/17 06:19 Abnormal lab findings: Abnormal Labs 07/03/17 07/03/17 07/03/17 05:11 05:28 05:28 WBC 12.9 H RBC Hgb 5.6 L* Hct 22.3 L MCV 59 L MCH 15 L MCHC 25 L RDW 33.3 H Plt Count 125 L Seg Neuts % (Manual) 75.0 H Lymphocytes % (Manual) Monocytes % (Manual) Seg Neutrophils # Man 9.7 H Lymphocytes # (Manual) Monocytes # (Manual) Eosinophils # (Manual) Lupus Anticoagulant LA PTT Baseline POC ABG pH POC ABG pCO2 POC ABG pO2 Sodium Potassium 3.0 L Chloride Carbon Dioxide BUN Creatinine 0.6 L Glucose 220 H POC Glucose 188 H Lactic Acid Calcium Phosphorus Magnesium Iron TIBC Transferrin AST C-Reactive Protein Total Protein Albumin Vitamin B12 PTH Intact Urine WBC (Auto) Urine Creatinine Urine Microalbumin Urine Total Protein Complement C3 Crossmatch 07/03/17 07/03/17 07/03/17 06:19 06:35 08:42 WBC RBC Hgb Hct MCV MCH MCHC RDW Plt Count Seg Neuts % (Manual) Lymphocytes % (Manual) Monocytes % (Manual) Seg Neutrophils # Man Lymphocytes # (Manual) Monocytes # (Manual) Eosinophils # (Manual) Lupus Anticoagulant LA PTT Baseline POC ABG pH POC ABG pCO2 POC ABG pO2 Sodium Potassium Chloride Carbon Dioxide BUN Creatinine Glucose POC Glucose Lactic Acid 2.50 H* 2.20 H* Calcium Phosphorus Magnesium Iron TIBC Transferrin AST C-Reactive Protein Total Protein Albumin Vitamin B12 PTH Intact Urine WBC (Auto) Urine Creatinine Urine Microalbumin Urine Total Protein Complement C3 Crossmatch See Detail 07/03/17 07/03/17 07/03/17 09:31 09:31 11:50 WBC RBC Hgb 5.7 L* Hct 22.4 L MCV MCH MCHC RDW Plt Count Seg Neuts % (Manual) Lymphocytes % (Manual) Monocytes % (Manual) Seg Neutrophils # Man Lymphocytes # (Manual) Monocytes # (Manual) Eosinophils # (Manual) Lupus Anticoagulant LA PTT Baseline POC ABG pH POC ABG pCO2 POC ABG pO2 Sodium Potassium Chloride Carbon Dioxide BUN Creatinine Glucose POC Glucose Lactic Acid 2.80 H* Calcium Phosphorus Magnesium Iron 12 L TIBC 534 H Transferrin AST C-Reactive Protein Total Protein Albumin Vitamin B12 PTH Intact Urine WBC (Auto) Urine Creatinine Urine Microalbumin Urine Total Protein Complement C3 Crossmatch 07/03/17 07/03/17 07/03/17 16:50 16:50 Unknown WBC RBC Hgb 9.7 L D Hct MCV MCH MCHC RDW Plt Count Seg Neuts % (Manual) Lymphocytes % (Manual) Monocytes % (Manual) Seg Neutrophils # Man Lymphocytes # (Manual) Monocytes # (Manual) Eosinophils # (Manual) Lupus Anticoagulant LA PTT Baseline POC ABG pH POC ABG pCO2 POC ABG pO2 Sodium Potassium Chloride Carbon Dioxide BUN Creatinine Glucose POC Glucose Lactic Acid 2.30 H* Calcium Phosphorus Magnesium Iron TIBC Transferrin AST C-Reactive Protein Total Protein Albumin Vitamin B12 PTH Intact Urine WBC (Auto) 18.0 H Urine Creatinine Urine Microalbumin Urine Total Protein Complement C3 Crossmatch 07/04/17 07/04/17 07/04/17 03:57 03:57 04:39 WBC 42.4 H* 42.8 H* RBC Hgb 9.1 L 9.3 L Hct MCV 65 L 66 L MCH 19 L 20 L MCHC 29 L RDW 37.3 H 37.3 H Plt Count 120 L Seg Neuts % (Manual) 93.5 H Lymphocytes % (Manual) 2.5 L Monocytes % (Manual) Seg Neutrophils # Man 40.0 H Lymphocytes # (Manual) 1.1 L Monocytes # (Manual) 1.1 H Eosinophils # (Manual) Lupus Anticoagulant LA PTT Baseline POC ABG pH POC ABG pCO2 POC ABG pO2 Sodium 134 L Potassium 3.5 L Chloride 95.4 L Carbon Dioxide 21 L BUN 6 L Creatinine 0.5 L Glucose 147 H POC Glucose Lactic Acid Calcium 7.9 L Phosphorus Magnesium Iron TIBC Transferrin AST C-Reactive Protein Total Protein Albumin Vitamin B12 PTH Intact Urine WBC (Auto) Urine Creatinine Urine Microalbumin Urine Total Protein Complement C3 Crossmatch 07/04/17 07/04/17 07/05/17 12:09 17:11 08:21 WBC 56.3 H* RBC Hgb 8.3 L Hct 29.1 L MCV 66 L MCH 19 L MCHC 28 L RDW 38.3 H Plt Count Seg Neuts % (Manual) 96.5 H Lymphocytes % (Manual) 1.0 L Monocytes % (Manual) Seg Neutrophils # Man 54.3 H Lymphocytes # (Manual) 0.6 L Monocytes # (Manual) 1.4 H Eosinophils # (Manual) Lupus Anticoagulant LA PTT Baseline POC ABG pH POC ABG pCO2 POC ABG pO2 Sodium Potassium Chloride Carbon Dioxide BUN Creatinine Glucose POC Glucose 169 H 124 H Lactic Acid Calcium Phosphorus Magnesium Iron TIBC Transferrin AST C-Reactive Protein Total Protein Albumin Vitamin B12 PTH Intact Urine WBC (Auto) Urine Creatinine Urine Microalbumin Urine Total Protein Complement C3 Crossmatch 07/05/17 07/05/17 07/05/17 08:21 10:55 22:34 WBC RBC Hgb Hct MCV MCH MCHC RDW Plt Count Seg Neuts % (Manual) Lymphocytes % (Manual) Monocytes % (Manual) Seg Neutrophils # Man Lymphocytes # (Manual) Monocytes # (Manual) Eosinophils # (Manual) Lupus Anticoagulant LA PTT Baseline POC ABG pH 7.185 L POC ABG pCO2 33.8 L POC ABG pO2 Sodium 135 L 135 L Potassium Chloride Carbon Dioxide 18 L 16 L BUN 25 H 27 H Creatinine 2.7 H D 2.9 H Glucose 115 H 119 H POC Glucose Lactic Acid Calcium 7.9 L 8.0 L Phosphorus Magnesium Iron TIBC Transferrin AST C-Reactive Protein Total Protein Albumin Vitamin B12 PTH Intact Urine WBC (Auto) Urine Creatinine Urine Microalbumin Urine Total Protein Complement C3 Crossmatch 07/05/17 07/06/17 07/06/17 Unknown 05:17 07:28 WBC RBC Hgb Hct MCV MCH MCHC RDW Plt Count Seg Neuts % (Manual) Lymphocytes % (Manual) Monocytes % (Manual) Seg Neutrophils # Man Lymphocytes # (Manual) Monocytes # (Manual) Eosinophils # (Manual) Lupus Anticoagulant LA PTT Baseline POC ABG pH POC ABG pCO2 28.0 L POC ABG pO2 193 H Sodium Potassium Chloride 112.6 H Carbon Dioxide 15 L BUN 35 H Creatinine 4.0 H Glucose POC Glucose Lactic Acid Calcium 5.8 L* D Phosphorus Magnesium 1.20 L Iron TIBC Transferrin 148 L AST C-Reactive Protein Total Protein Albumin Vitamin B12 PTH Intact Urine WBC (Auto) Urine Creatinine 237.2 H Urine Microalbumin 39.9 H Urine Total Protein 170 H Complement C3 Crossmatch 07/06/17 07/06/17 07/06/17 07:28 07:28 10:27 WBC 28.9 H RBC Hgb 7.1 L Hct 24.5 L MCV 66 L MCH 19 L MCHC 29 L RDW 38.6 H Plt Count Seg Neuts % (Manual) Lymphocytes % (Manual) Monocytes % (Manual) Seg Neutrophils # Man Lymphocytes # (Manual) Monocytes # (Manual) Eosinophils # (Manual) Lupus Anticoagulant LA PTT Baseline POC ABG pH POC ABG pCO2 POC ABG pO2 Sodium Potassium Chloride Carbon Dioxide BUN Creatinine Glucose POC Glucose Lactic Acid Calcium Phosphorus Magnesium Iron TIBC Transferrin AST C-Reactive Protein Total Protein Albumin Vitamin B12 PTH Intact 285.9 H Urine WBC (Auto) Urine Creatinine Urine Microalbumin Urine Total Protein Complement C3 Crossmatch See Detail 07/06/17 07/06/17 07/06/17 17:55 17:55 18:08 WBC RBC Hgb Hct MCV MCH MCHC RDW Plt Count Seg Neuts % (Manual) Lymphocytes % (Manual) Monocytes % (Manual) Seg Neutrophils # Man Lymphocytes # (Manual) Monocytes # (Manual) Eosinophils # (Manual) Lupus Anticoagulant see below H LA PTT Baseline 47 H POC ABG pH POC ABG pCO2 POC ABG pO2 Sodium Potassium Chloride Carbon Dioxide BUN Creatinine Glucose POC Glucose Lactic Acid Calcium Phosphorus Magnesium Iron TIBC Transferrin AST C-Reactive Protein 26.20 H Total Protein Albumin Vitamin B12 PTH Intact Urine WBC (Auto) Urine Creatinine Urine Microalbumin Urine Total Protein Complement C3 77 L Crossmatch 07/07/17 07/07/17 07/07/17 04:18 05:59 05:59 WBC 24.9 H RBC Hgb 8.8 L Hct 28.0 L MCV 72 L MCH 23 L MCHC RDW 33.3 H Plt Count Seg Neuts % (Manual) Lymphocytes % (Manual) Monocytes % (Manual) Seg Neutrophils # Man Lymphocytes # (Manual) Monocytes # (Manual) Eosinophils # (Manual) Lupus Anticoagulant LA PTT Baseline POC ABG pH POC ABG pCO2 27.5 L POC ABG pO2 61 L Sodium Potassium Chloride Carbon Dioxide 17 L BUN 46 H Creatinine 4.8 H Glucose 103 H POC Glucose Lactic Acid Calcium 7.6 L D Phosphorus Magnesium Iron TIBC Transferrin AST C-Reactive Protein Total Protein Albumin Vitamin B12 PTH Intact Urine WBC (Auto) Urine Creatinine Urine Microalbumin Urine Total Protein Complement C3 Crossmatch 07/07/17 07/08/17 07/08/17 05:59 04:22 04:22 WBC 21.3 H RBC Hgb 8.9 L Hct 27.5 L MCV 71 L MCH 23 L MCHC RDW 35.0 H Plt Count Seg Neuts % (Manual) Lymphocytes % (Manual) Monocytes % (Manual) Seg Neutrophils # Man Lymphocytes # (Manual) Monocytes # (Manual) Eosinophils # (Manual) Lupus Anticoagulant LA PTT Baseline POC ABG pH POC ABG pCO2 POC ABG pO2 Sodium Potassium Chloride Carbon Dioxide 18 L BUN 56 H Creatinine 4.3 H Glucose 110 H POC Glucose Lactic Acid Calcium 8.3 L Phosphorus Magnesium 2.50 H Iron TIBC Transferrin AST C-Reactive Protein Total Protein Albumin Vitamin B12 PTH Intact Urine WBC (Auto) Urine Creatinine Urine Microalbumin Urine Total Protein Complement C3 Crossmatch 07/08/17 07/08/17 07/08/17 04:22 05:40 12:36 WBC RBC Hgb Hct MCV MCH MCHC RDW Plt Count Seg Neuts % (Manual) Lymphocytes % (Manual) Monocytes % (Manual) Seg Neutrophils # Man Lymphocytes # (Manual) Monocytes # (Manual) Eosinophils # (Manual) Lupus Anticoagulant LA PTT Baseline POC ABG pH POC ABG pCO2 POC ABG pO2 158 H Sodium Potassium Chloride Carbon Dioxide BUN Creatinine Glucose POC Glucose 109 H Lactic Acid Calcium Phosphorus 4.80 H Magnesium 2.60 H Iron TIBC Transferrin AST C-Reactive Protein Total Protein Albumin Vitamin B12 PTH Intact Urine WBC (Auto) Urine Creatinine Urine Microalbumin Urine Total Protein Complement C3 Crossmatch 07/09/17 07/09/17 07/09/17 04:30 04:30 04:51 WBC RBC Hgb Hct MCV MCH MCHC RDW Plt Count Seg Neuts % (Manual) Lymphocytes % (Manual) Monocytes % (Manual) Seg Neutrophils # Man Lymphocytes # (Manual) Monocytes # (Manual) Eosinophils # (Manual) Lupus Anticoagulant LA PTT Baseline POC ABG pH 7.522 H POC ABG pCO2 POC ABG pO2 67 L Sodium Potassium 3.2 L D Chloride 96.3 L Carbon Dioxide BUN 60 H Creatinine 3.6 H Glucose 115 H POC Glucose Lactic Acid Calcium Phosphorus 4.80 H Magnesium Iron TIBC Transferrin AST C-Reactive Protein Total Protein Albumin Vitamin B12 PTH Intact Urine WBC (Auto) Urine Creatinine Urine Microalbumin Urine Total Protein Complement C3 Crossmatch 07/09/17 07/09/17 07/09/17 12:26 17:51 23:48 WBC RBC Hgb Hct MCV MCH MCHC RDW Plt Count Seg Neuts % (Manual) Lymphocytes % (Manual) Monocytes % (Manual) Seg Neutrophils # Man Lymphocytes # (Manual) Monocytes # (Manual) Eosinophils # (Manual) Lupus Anticoagulant LA PTT Baseline POC ABG pH POC ABG pCO2 POC ABG pO2 Sodium Potassium Chloride Carbon Dioxide BUN Creatinine Glucose POC Glucose 140 H 152 H 149 H Lactic Acid Calcium Phosphorus Magnesium Iron TIBC Transferrin AST C-Reactive Protein Total Protein Albumin Vitamin B12 PTH Intact Urine WBC (Auto) Urine Creatinine Urine Microalbumin Urine Total Protein Complement C3 Crossmatch 07/10/17 07/10/17 07/10/17 03:33 05:30 05:30 WBC 24.0 H RBC Hgb 9.0 L Hct 29.3 L MCV 69 L MCH 21 L MCHC RDW 35.9 H Plt Count 451 H Seg Neuts % (Manual) Lymphocytes % (Manual) Monocytes % (Manual) Seg Neutrophils # Man Lymphocytes # (Manual) Monocytes # (Manual) Eosinophils # (Manual) Lupus Anticoagulant LA PTT Baseline POC ABG pH 7.593 H POC ABG pCO2 34.7 L POC ABG pO2 73 L Sodium Potassium Chloride 96.8 L Carbon Dioxide 31 H BUN 61 H Creatinine 2.9 H Glucose 120 H POC Glucose Lactic Acid Calcium Phosphorus 5.20 H Magnesium Iron TIBC Transferrin AST C-Reactive Protein Total Protein Albumin Vitamin B12 PTH Intact Urine WBC (Auto) Urine Creatinine Urine Microalbumin Urine Total Protein Complement C3 Crossmatch 07/10/17 07/10/17 07/10/17 12:19 17:59 23:51 WBC RBC Hgb Hct MCV MCH MCHC RDW Plt Count Seg Neuts % (Manual) Lymphocytes % (Manual) Monocytes % (Manual) Seg Neutrophils # Man Lymphocytes # (Manual) Monocytes # (Manual) Eosinophils # (Manual) Lupus Anticoagulant LA PTT Baseline POC ABG pH POC ABG pCO2 POC ABG pO2 Sodium Potassium Chloride Carbon Dioxide BUN Creatinine Glucose POC Glucose 143 H 147 H 139 H Lactic Acid Calcium Phosphorus Magnesium Iron TIBC Transferrin AST C-Reactive Protein Total Protein Albumin Vitamin B12 PTH Intact Urine WBC (Auto) Urine Creatinine Urine Microalbumin Urine Total Protein Complement C3 Crossmatch 07/11/17 07/11/17 07/11/17 06:30 06:30 06:30 WBC 20.2 H RBC Hgb 8.4 L Hct 26.0 L MCV 71 L MCH 23 L MCHC RDW 35.6 H Plt Count 469 H Seg Neuts % (Manual) Lymphocytes % (Manual) Monocytes % (Manual) Seg Neutrophils # Man Lymphocytes # (Manual) Monocytes # (Manual) Eosinophils # (Manual) Lupus Anticoagulant LA PTT Baseline POC ABG pH POC ABG pCO2 POC ABG pO2 Sodium Potassium Chloride Carbon Dioxide 32 H BUN 58 H Creatinine 2.4 H Glucose 111 H POC Glucose Lactic Acid Calcium Phosphorus 6.10 H Magnesium 1.60 L Iron TIBC Transferrin AST C-Reactive Protein Total Protein Albumin Vitamin B12 PTH Intact Urine WBC (Auto) Urine Creatinine Urine Microalbumin Urine Total Protein Complement C3 Crossmatch 07/11/17 07/11/17 07/11/17 08:54 12:47 17:33 WBC RBC Hgb Hct MCV MCH MCHC RDW Plt Count Seg Neuts % (Manual) Lymphocytes % (Manual) Monocytes % (Manual) Seg Neutrophils # Man Lymphocytes # (Manual) Monocytes # (Manual) Eosinophils # (Manual) Lupus Anticoagulant LA PTT Baseline POC ABG pH 7.485 H POC ABG pCO2 POC ABG pO2 Sodium Potassium Chloride Carbon Dioxide BUN Creatinine Glucose POC Glucose 168 H 151 H Lactic Acid Calcium Phosphorus Magnesium Iron TIBC Transferrin AST C-Reactive Protein Total Protein Albumin Vitamin B12 PTH Intact Urine WBC (Auto) Urine Creatinine Urine Microalbumin Urine Total Protein Complement C3 Crossmatch 07/11/17 07/12/17 07/12/17 23:52 05:39 06:25 WBC RBC Hgb Hct MCV MCH MCHC RDW Plt Count Seg Neuts % (Manual) Lymphocytes % (Manual) Monocytes % (Manual) Seg Neutrophils # Man Lymphocytes # (Manual) Monocytes # (Manual) Eosinophils # (Manual) Lupus Anticoagulant LA PTT Baseline POC ABG pH POC ABG pCO2 POC ABG pO2 Sodium Potassium Chloride Carbon Dioxide BUN 43 H Creatinine 1.8 H Glucose 138 H POC Glucose 156 H 146 H Lactic Acid Calcium Phosphorus 5.90 H Magnesium Iron TIBC Transferrin AST C-Reactive Protein Total Protein Albumin Vitamin B12 PTH Intact Urine WBC (Auto) Urine Creatinine Urine Microalbumin Urine Total Protein Complement C3 Crossmatch 07/12/17 07/12/17 07/12/17 11:46 12:14 17:01 WBC RBC Hgb Hct MCV MCH MCHC RDW Plt Count Seg Neuts % (Manual) Lymphocytes % (Manual) Monocytes % (Manual) Seg Neutrophils # Man Lymphocytes # (Manual) Monocytes # (Manual) Eosinophils # (Manual) Lupus Anticoagulant LA PTT Baseline POC ABG pH 7.477 H POC ABG pCO2 POC ABG pO2 Sodium Potassium Chloride Carbon Dioxide BUN Creatinine Glucose POC Glucose 156 H Lactic Acid Calcium Phosphorus Magnesium Iron TIBC Transferrin AST C-Reactive Protein 10.30 H Total Protein Albumin Vitamin B12 PTH Intact Urine WBC (Auto) Urine Creatinine Urine Microalbumin Urine Total Protein Complement C3 Crossmatch 07/12/17 07/12/17 07/13/17 18:03 23:47 05:53 WBC RBC Hgb Hct MCV MCH MCHC RDW Plt Count Seg Neuts % (Manual) Lymphocytes % (Manual) Monocytes % (Manual) Seg Neutrophils # Man Lymphocytes # (Manual) Monocytes # (Manual) Eosinophils # (Manual) Lupus Anticoagulant LA PTT Baseline POC ABG pH POC ABG pCO2 POC ABG pO2 Sodium Potassium Chloride Carbon Dioxide BUN Creatinine Glucose POC Glucose 140 H 158 H 137 H Lactic Acid Calcium Phosphorus Magnesium Iron TIBC Transferrin AST C-Reactive Protein Total Protein Albumin Vitamin B12 PTH Intact Urine WBC (Auto) Urine Creatinine Urine Microalbumin Urine Total Protein Complement C3 Crossmatch 07/13/17 07/13/17 07/13/17 06:15 08:26 10:43 WBC 18.3 H RBC 3.35 L Hgb 7.6 L Hct 24.4 L MCV 73 L MCH 23 L MCHC RDW 35.3 H Plt Count 520 H Seg Neuts % (Manual) 81.0 H Lymphocytes % (Manual) 12.0 L Monocytes % (Manual) Seg Neutrophils # Man 14.8 H Lymphocytes # (Manual) Monocytes # (Manual) Eosinophils # (Manual) 0.7 H Lupus Anticoagulant LA PTT Baseline POC ABG pH 7.459 H POC ABG pCO2 POC ABG pO2 Sodium 149 H Potassium Chloride Carbon Dioxide BUN 31 H Creatinine 1.3 H Glucose 112 H POC Glucose Lactic Acid Calcium Phosphorus 5.10 H Magnesium 1.60 L Iron TIBC Transferrin AST C-Reactive Protein Total Protein Albumin Vitamin B12 PTH Intact Urine WBC (Auto) Urine Creatinine Urine Microalbumin Urine Total Protein Complement C3 Crossmatch 07/13/17 07/13/17 07/14/17 12:16 17:38 00:16 WBC RBC Hgb Hct MCV MCH MCHC RDW Plt Count Seg Neuts % (Manual) Lymphocytes % (Manual) Monocytes % (Manual) Seg Neutrophils # Man Lymphocytes # (Manual) Monocytes # (Manual) Eosinophils # (Manual) Lupus Anticoagulant LA PTT Baseline POC ABG pH POC ABG pCO2 POC ABG pO2 Sodium Potassium Chloride Carbon Dioxide BUN Creatinine Glucose POC Glucose 141 H 144 H 152 H Lactic Acid Calcium Phosphorus Magnesium Iron TIBC Transferrin AST C-Reactive Protein Total Protein Albumin Vitamin B12 PTH Intact Urine WBC (Auto) Urine Creatinine Urine Microalbumin Urine Total Protein Complement C3 Crossmatch 07/14/17 07/14/17 07/14/17 06:11 09:35 12:52 WBC RBC Hgb Hct MCV MCH MCHC RDW Plt Count Seg Neuts % (Manual) Lymphocytes % (Manual) Monocytes % (Manual) Seg Neutrophils # Man Lymphocytes # (Manual) Monocytes # (Manual) Eosinophils # (Manual) Lupus Anticoagulant LA PTT Baseline POC ABG pH POC ABG pCO2 POC ABG pO2 Sodium Potassium 3.5 L Chloride Carbon Dioxide BUN 21 H Creatinine Glucose 139 H POC Glucose 138 H 154 H Lactic Acid Calcium Phosphorus Magnesium 1.40 L Iron TIBC Transferrin AST 42 H C-Reactive Protein Total Protein 6.1 L Albumin 2.6 L Vitamin B12 PTH Intact Urine WBC (Auto) Urine Creatinine Urine Microalbumin Urine Total Protein Complement C3 Crossmatch 07/14/17 07/15/17 07/15/17 17:17 00:56 06:21 WBC RBC Hgb Hct MCV MCH MCHC RDW Plt Count Seg Neuts % (Manual) Lymphocytes % (Manual) Monocytes % (Manual) Seg Neutrophils # Man Lymphocytes # (Manual) Monocytes # (Manual) Eosinophils # (Manual) Lupus Anticoagulant LA PTT Baseline POC ABG pH POC ABG pCO2 POC ABG pO2 Sodium Potassium Chloride Carbon Dioxide BUN Creatinine Glucose POC Glucose 133 H 144 H 137 H Lactic Acid Calcium Phosphorus Magnesium Iron TIBC Transferrin AST C-Reactive Protein Total Protein Albumin Vitamin B12 PTH Intact Urine WBC (Auto) Urine Creatinine Urine Microalbumin Urine Total Protein Complement C3 Crossmatch 07/15/17 07/15/17 07/15/17 11:49 16:49 22:19 WBC RBC Hgb Hct MCV MCH MCHC RDW Plt Count Seg Neuts % (Manual) Lymphocytes % (Manual) Monocytes % (Manual) Seg Neutrophils # Man Lymphocytes # (Manual) Monocytes # (Manual) Eosinophils # (Manual) Lupus Anticoagulant LA PTT Baseline POC ABG pH POC ABG pCO2 POC ABG pO2 Sodium Potassium Chloride Carbon Dioxide BUN Creatinine Glucose POC Glucose 145 H 141 H 136 H Lactic Acid Calcium Phosphorus Magnesium Iron TIBC Transferrin AST C-Reactive Protein Total Protein Albumin Vitamin B12 PTH Intact Urine WBC (Auto) Urine Creatinine Urine Microalbumin Urine Total Protein Complement C3 Crossmatch 07/16/17 07/16/17 07/16/17 05:24 07:07 16:52 WBC RBC Hgb Hct MCV MCH MCHC RDW Plt Count Seg Neuts % (Manual) Lymphocytes % (Manual) Monocytes % (Manual) Seg Neutrophils # Man Lymphocytes # (Manual) Monocytes # (Manual) Eosinophils # (Manual) Lupus Anticoagulant LA PTT Baseline POC ABG pH POC ABG pCO2 POC ABG pO2 Sodium Potassium Chloride 107.1 H Carbon Dioxide 20 L BUN 18 H Creatinine Glucose 125 H POC Glucose 147 H 128 H Lactic Acid Calcium 8.2 L Phosphorus Magnesium Iron TIBC Transferrin AST C-Reactive Protein Total Protein Albumin Vitamin B12 PTH Intact Urine WBC (Auto) Urine Creatinine Urine Microalbumin Urine Total Protein Complement C3 Crossmatch 07/16/17 07/17/17 07/17/17 22:12 06:08 07:00 WBC RBC Hgb Hct MCV MCH MCHC RDW Plt Count Seg Neuts % (Manual) Lymphocytes % (Manual) Monocytes % (Manual) Seg Neutrophils # Man Lymphocytes # (Manual) Monocytes # (Manual) Eosinophils # (Manual) Lupus Anticoagulant LA PTT Baseline POC ABG pH POC ABG pCO2 POC ABG pO2 Sodium Potassium Chloride Carbon Dioxide 19 L BUN Creatinine Glucose 110 H POC Glucose 117 H 131 H Lactic Acid Calcium Phosphorus Magnesium Iron TIBC Transferrin AST C-Reactive Protein Total Protein Albumin Vitamin B12 PTH Intact Urine WBC (Auto) Urine Creatinine Urine Microalbumin Urine Total Protein Complement C3 Crossmatch 07/17/17 07/17/17 07/17/17 12:07 12:30 17:47 WBC 13.8 H RBC 3.15 L Hgb 7.2 L Hct 23.3 L MCV 74 L MCH 23 L MCHC RDW 34.7 H Plt Count 514 H Seg Neuts % (Manual) Lymphocytes % (Manual) Monocytes % (Manual) Seg Neutrophils # Man Lymphocytes # (Manual) Monocytes # (Manual) Eosinophils # (Manual) Lupus Anticoagulant LA PTT Baseline POC ABG pH POC ABG pCO2 POC ABG pO2 Sodium Potassium Chloride Carbon Dioxide BUN Creatinine Glucose POC Glucose 149 H 106 H Lactic Acid Calcium Phosphorus Magnesium Iron TIBC Transferrin AST C-Reactive Protein Total Protein Albumin Vitamin B12 PTH Intact Urine WBC (Auto) Urine Creatinine Urine Microalbumin Urine Total Protein Complement C3 Crossmatch 07/18/17 07/18/17 07/18/17 06:32 06:50 09:10 WBC RBC Hgb Hct MCV MCH MCHC RDW Plt Count Seg Neuts % (Manual) Lymphocytes % (Manual) Monocytes % (Manual) Seg Neutrophils # Man Lymphocytes # (Manual) Monocytes # (Manual) Eosinophils # (Manual) Lupus Anticoagulant LA PTT Baseline POC ABG pH POC ABG pCO2 POC ABG pO2 Sodium 132 L D Potassium 5.8 H Chloride 95.0 L Carbon Dioxide BUN Creatinine Glucose 121 H POC Glucose 148 H Lactic Acid Calcium 8.1 L Phosphorus 5.70 H D 4.60 H Magnesium 2.90 H Iron TIBC Transferrin AST C-Reactive Protein Total Protein Albumin Vitamin B12 PTH Intact Urine WBC (Auto) Urine Creatinine Urine Microalbumin Urine Total Protein Complement C3 Crossmatch 07/18/17 07/18/17 07/18/17 11:08 16:03 22:05 WBC RBC Hgb Hct MCV MCH MCHC RDW Plt Count Seg Neuts % (Manual) Lymphocytes % (Manual) Monocytes % (Manual) Seg Neutrophils # Man Lymphocytes # (Manual) Monocytes # (Manual) Eosinophils # (Manual) Lupus Anticoagulant LA PTT Baseline POC ABG pH POC ABG pCO2 POC ABG pO2 Sodium Potassium Chloride Carbon Dioxide BUN Creatinine Glucose POC Glucose 151 H 142 H 147 H Lactic Acid Calcium Phosphorus Magnesium Iron TIBC Transferrin AST C-Reactive Protein Total Protein Albumin Vitamin B12 PTH Intact Urine WBC (Auto) Urine Creatinine Urine Microalbumin Urine Total Protein Complement C3 Crossmatch 07/19/17 07/19/17 07/19/17 05:54 06:05 06:05 WBC RBC Hgb Hct MCV MCH MCHC RDW Plt Count Seg Neuts % (Manual) Lymphocytes % (Manual) Monocytes % (Manual) Seg Neutrophils # Man Lymphocytes # (Manual) Monocytes # (Manual) Eosinophils # (Manual) Lupus Anticoagulant LA PTT Baseline POC ABG pH POC ABG pCO2 POC ABG pO2 Sodium Potassium Chloride Carbon Dioxide BUN Creatinine Glucose 116 H POC Glucose 138 H Lactic Acid Calcium Phosphorus Magnesium Iron 34 L TIBC Transferrin AST C-Reactive Protein Total Protein Albumin Vitamin B12 1373 H PTH Intact Urine WBC (Auto) Urine Creatinine Urine Microalbumin Urine Total Protein Complement C3 Crossmatch 07/19/17 07/19/17 07/20/17 11:27 21:18 06:10 WBC RBC Hgb Hct MCV MCH MCHC RDW Plt Count Seg Neuts % (Manual) Lymphocytes % (Manual) Monocytes % (Manual) Seg Neutrophils # Man Lymphocytes # (Manual) Monocytes # (Manual) Eosinophils # (Manual) Lupus Anticoagulant LA PTT Baseline POC ABG pH POC ABG pCO2 POC ABG pO2 Sodium 135 L Potassium Chloride Carbon Dioxide BUN 18 H Creatinine Glucose 106 H POC Glucose 135 H 134 H Lactic Acid Calcium Phosphorus Magnesium Iron TIBC Transferrin AST C-Reactive Protein Total Protein Albumin Vitamin B12 PTH Intact Urine WBC (Auto) Urine Creatinine Urine Microalbumin Urine Total Protein Complement C3 Crossmatch 07/20/17 07/20/17 07/20/17 06:22 11:54 12:30 WBC RBC 3.09 L Hgb 7.4 L Hct 23.2 L MCV 75 L MCH 24 L MCHC RDW 33.2 H Plt Count 523 H Seg Neuts % (Manual) 74.0 H Lymphocytes % (Manual) Monocytes % (Manual) 9.0 H Seg Neutrophils # Man Lymphocytes # (Manual) Monocytes # (Manual) 0.9 H Eosinophils # (Manual) Lupus Anticoagulant LA PTT Baseline POC ABG pH POC ABG pCO2 POC ABG pO2 Sodium Potassium Chloride Carbon Dioxide BUN Creatinine Glucose POC Glucose 141 H 152 H Lactic Acid Calcium Phosphorus Magnesium Iron TIBC Transferrin AST C-Reactive Protein Total Protein Albumin Vitamin B12 PTH Intact Urine WBC (Auto) Urine Creatinine Urine Microalbumin Urine Total Protein Complement C3 Crossmatch 07/20/17 17:33 WBC RBC Hgb Hct MCV MCH MCHC RDW Plt Count Seg Neuts % (Manual) Lymphocytes % (Manual) Monocytes % (Manual) Seg Neutrophils # Man Lymphocytes # (Manual) Monocytes # (Manual) Eosinophils # (Manual) Lupus Anticoagulant LA PTT Baseline POC ABG pH POC ABG pCO2 POC ABG pO2 Sodium Potassium Chloride Carbon Dioxide BUN Creatinine Glucose POC Glucose 134 H Lactic Acid Calcium Phosphorus Magnesium Iron TIBC Transferrin AST C-Reactive Protein Total Protein Albumin Vitamin B12 PTH Intact Urine WBC (Auto) Urine Creatinine Urine Microalbumin Urine Total Protein Complement C3 Crossmatch Allied health notes reviewed: RT
[2017-07-20] MEDS: MORPHINE IV PRN (20:46)
[2017-07-20] MEDS: VIBRAMYCIN PO SCH (21:17)
[2017-07-21] MEDS: MORPHINE IV PRN ×4 (05:51→22:56)
[2017-07-21] MEDS: HEPARIN SUB-Q SCH ×3 (05:51→22:57)
[2017-07-21 07:12] LABS: BUN/Creatinine Ratio 26; Blood Urea Nitrogen 18 mg/dL (7-17); Calcium 8.8 mg/dL (8.4-10.2); Hemolysis Index 0
--- NOTE | 2017-07-21 09:11 | XRay Report ---
XRAY CHEST TWO VIEWS: 07/21/17 CLINICAL: Followup pneumonia. COMPARISON: 07/17/17 FINDINGS: Since the last exam, the lungs are clear except for very mild right upper lobe and lingular subsegmental atelectasis.No airspace disease or pleural effusion. Cardiomegaly. Normal pulmonary vessels. A left PICC line tip is in the distal SVC.No pneumothorax. IMPRESSION: Resolution of airspace disease.Cardiomegaly but no CHF.
--- NOTE | 2017-07-21 09:56 | Hem/Onc Progress Note ---
Assessment and Plan continue to monitor aggressive dvt propylaxis hgb 7.4- pt symptomatic- will transfuse encourage ambulation Subjective Date of service: 07/21/17 Interval history: pt feels tired. some vaginal spotting.ambulated. Objective - Constitutional Vitals: Last Vital Signs Temp 98.7 F 07/21/17 07:46 Pulse 72 07/21/17 07:46 Resp 15 07/21/17 07:46 BP 121/72 07/21/17 07:46 Pulse Ox 100 07/21/17 07:46 Performance status: 3-limited selfcare - Neck Neck: supple - Cardiovascular Rhythm: regular Extremities: No edema - Gastrointestinal General gastrointestinal: Present: soft - Labs Lab Results: Laboratory Results - last 24 hr 07/20/17 07/20/17 07/20/17 11:54 12:30 17:33 WBC 10.2 RBC 3.09 L Hgb 7.4 L Hct 23.2 L MCV 75 L MCH 24 L MCHC 32 RDW 33.2 H Plt Count 523 H Lymph % (Auto) Graphic Design Teacher [place] % (Auto) Graphic Design Teacher Eos % (Auto) Graphic Design Teacher Baso % (Auto) Graphic Design Teacher Lymph # Graphic Design Teacher [place] # Graphic Design Teacher Eos # Graphic Design Teacher Baso # Graphic Design Teacher Add Manual Diff Complete Total Counted 100 Seg Neutrophils % Graphic Design Teacher Seg Neuts % (Manual) 74.0 H Band Neutrophils % 0 Lymphocytes % (Manual) 16.0 Reactive Lymphs % (Man) 0 Monocytes % (Manual) 9.0 H Eosinophils % (Manual) 1.0 Basophils % (Manual) 0 Metamyelocytes % 0 Myelocytes % 0 Promyelocytes % 0 Blast Cells % 0 Nucleated RBC % Not Reportable Seg Neutrophils # Graphic Design Teacher Seg Neutrophils # Man 7.5 Band Neutrophils # 0.0 Lymphocytes # (Manual) 1.6 Abs React Lymphs (Man) 0.0 Monocytes # (Manual) 0.9 H Eosinophils # (Manual) 0.1 Basophils # (Manual) 0.0 Metamyelocytes # 0.0 Myelocytes # 0.0 Promyelocytes # 0.0 Blast Cells # 0.0 WBC Morphology Not Reportable Hypersegmented Neuts Not Reportable Hyposegmented Neuts Not Reportable Hypogranular Neuts Not Reportable Smudge Cells Not Reportable Toxic Granulation Not Reportable Toxic Vacuolation Not Reportable Dohle Bodies Not Reportable Pelger-Huet Anomaly Not Reportable Irma Rods Not Reportable Platelet Estimate Cons Clumped Platelets Not Reportable Plt Clumps, EDTA Not Reportable Large Platelets Few Giant Platelets Not Reportable Platelet Satelliting Not Reportable Plt Morphology Comment Not Reportable RBC Morphology Not Reportable Dimorphic RBCs Not Reportable Polychromasia Not Reportable Hypochromasia 2+ Poikilocytosis Not Reportable Anisocytosis 2+ Microcytosis 1+ Macrocytosis 1+ Spherocytes Not Reportable Pappenheimer Bodies Not Reportable Sickle Cells Not Reportable Target Cells Not Reportable Tear Drop Cells Few Ovalocytes Few Helmet Cells Not Reportable Barber-[place] Bodies Not Reportable [place] Rings Not Reportable [place] Cells Not Reportable Bite Cells Not Reportable Crenated Cell Not Reportable Elliptocytes Few Acanthocytes (Spur) Not Reportable Rouleaux Not Reportable Hemoglobin C Crystals Not Reportable Schistocytes Rare Malaria parasites Not Reportable Roberto Bodies Not Reportable Hem Pathologist Commnt No Sodium Potassium Chloride Carbon Dioxide Anion Gap BUN Creatinine Estimated GFR BUN/Creatinine Ratio Glucose POC Glucose 152 H 134 H Calcium Phosphorus Magnesium 07/20/17 07/21/17 07/21/17 21:17 05:36 06:00 WBC RBC Hgb Hct MCV MCH MCHC RDW Plt Count Lymph % (Auto) [place] % (Auto) Eos % (Auto) Baso % (Auto) Lymph # [place] # Eos # Baso # Add Manual Diff Total Counted Seg Neutrophils % Seg Neuts % (Manual) Band Neutrophils % Lymphocytes % (Manual) Reactive Lymphs % (Man) Monocytes % (Manual) Eosinophils % (Manual) Basophils % (Manual) Metamyelocytes % Myelocytes % Promyelocytes % Blast Cells % Nucleated RBC % Seg Neutrophils # Seg Neutrophils # Man Band Neutrophils # Lymphocytes # (Manual) Abs React Lymphs (Man) Monocytes # (Manual) Eosinophils # (Manual) Basophils # (Manual) Metamyelocytes # Myelocytes # Promyelocytes # Blast Cells # WBC Morphology Hypersegmented Neuts Hyposegmented Neuts Hypogranular Neuts Smudge Cells Toxic Granulation Toxic Vacuolation Dohle Bodies Pelger-Huet Anomaly Imra Rods Platelet Estimate Clumped Platelets Plt Clumps, EDTA Large Platelets Giant Platelets Platelet Satelliting Plt Morphology Comment RBC Morphology Dimorphic RBCs Polychromasia Hypochromasia Poikilocytosis Anisocytosis Microcytosis Macrocytosis Spherocytes Pappenheimer Bodies Sickle Cells Target Cells Tear Drop Cells Ovalocytes Helmet Cells Barber-[place] Bodies [place] Rings [place] Cells Bite Cells Crenated Cell Elliptocytes Acanthocytes (Spur) Rouleaux Hemoglobin C Crystals Schistocytes Malaria parasites Roberto Bodies Hem Pathologist Commnt Sodium 138 Potassium 4.1 Chloride 97.6 L Carbon Dioxide 25 Anion Gap 20 BUN 18 H Creatinine 0.7 Estimated GFR > 60 BUN/Creatinine Ratio 26 Glucose 129 H POC Glucose 93 138 H Calcium 8.8 Phosphorus 4.20 Magnesium 2.00
[2017-07-21] MEDS ORDERED: NACL 0.9% 500 ML 500 ML IV ONE ×2 (10:00→13:00)
[2017-07-21] MEDS: CATAPRES PO SCH ×2 (11:04→23:00)
[2017-07-21] MEDS: NORVASC PO SCH (11:04)
[2017-07-21] MEDS: PEPCID PO SCH ×2 (11:05→22:57)
[2017-07-21] MEDS: COREG PO SCH ×2 (11:05→23:00)
[2017-07-21] MEDS: VIBRAMYCIN PO SCH ×2 (11:05→22:57)
[2017-07-21] MEDS: DIOVAN PO SCH ×2 (11:05→23:00)
--- NOTE | 2017-07-21 11:05 | Progress Note ---
Assessment and Plan Postoperative respiratory failure, now s/p mechanical ventilatory support Sepsis syndrome (resolving) Ischemic bowel, possibly secondary to embolic event vs related to drug abuse H/O Cocaine use with possibility of arterial spasm. Acute kidney injury. Leukocytosis. Uncontrolled hypertension. Severe anemia. Drug abuse. Alcohol abuse - continue to advance diet per ST - wound care per WCT - aspiration precautions - tobacco cessation counselling stressed at bedside - GI & VTE prophylaxis - bronchodilators prn - continue TPN - will need significant assistance with lifestyle changes and resettlement + drug rehab - supplemental oxygen as needed to keep sats > 90% - PT/OT ... overall improved ...25' Subjective Date of service: 07/21/17 Principal diagnosis: Post-Op Resp Failure on MVS; Ischemic Bowel s/p Ex-Lap; EMMA Interval history: Patient is seen today for: Post-Op Resp Failure on MVS; Ischemic Bowel s/p Ex- Lap; EMMA Seen and examined at bedside; 24hour events reviewed; nursing and respiratory care staff consulted; no adverse overnight events reported to me; resting peacefully; tolerating oral meals; denies acute chest pains or increased SOB; No N/V/F/C Objective Vital Signs - 12hr 07/20/17 07/21/17 07/21/17 23:07 03:30 05:51 Temperature 99.6 F 99.0 F Pulse Rate 66 73 Respiratory 20 20 18 Rate Blood Pressure 92/46 115/58 O2 Sat by Pulse 100 99 Oximetry 07/21/17 07/21/17 06:21 07:46 Temperature 98.7 F Pulse Rate 72 Respiratory 18 15 Rate Blood Pressure 121/72 O2 Sat by Pulse 100 Oximetry Constitutional: no acute distress, other (sedated) Eyes: non-icteric ENT: oropharynx moist, other (mallampatti 3) Neck: supple, no lymphadenopathy, other (no thyromegaly) Effort: mildly labored Ascultation: Bilateral: diminished breath sounds (bases), rhonchi Percussion: Bilateral: not dull Cardiovascular: regular rate and rhythm, other (No R/M) Gastrointestinal: hypoactive bowel sounds, non-tender, non-distended, other (no palpable HSM; clean dressing over abdominal incision site) Integumentary: normal Extremities: no cyanosis, no edema, pulses normal, no ischemia or petechiae Neurologic: normal mental status, non-focal exam, pupils equal and round, CN II- XII normal Psychiatric: mood appropriate, affect normal CBC and BMP: 07/22/17 07:40 07/22/17 07:40 ABG, PT/INR, D-dimer: ABG POC ABG pH 7.459 (7.35-7.45) H 07/13/17 08:26 POC ABG pCO2 40.4 (35-45) 07/13/17 08:26 POC ABG pO2 99 (80-105) 07/13/17 08:26 POC ABG HCO3 28.6 07/13/17 08:26 POC ABG Total CO2 30 07/13/17 08:26 POC ABG O2 Sat 98 07/13/17 08:26 PT/INR, D-dimer PT 12.5 Sec. (12.2-14.9) 07/03/17 06:19 INR 0.89 (0.87-1.13) 07/03/17 06:19 Abnormal lab findings: Abnormal Labs 07/03/17 07/03/17 07/03/17 05:11 05:28 05:28 WBC 12.9 H RBC Hgb 5.6 L* Hct 22.3 L MCV 59 L MCH 15 L MCHC 25 L RDW 33.3 H Plt Count 125 L Seg Neuts % (Manual) 75.0 H Lymphocytes % (Manual) Monocytes % (Manual) Seg Neutrophils # Man 9.7 H Lymphocytes # (Manual) Monocytes # (Manual) Eosinophils # (Manual) Lupus Anticoagulant LA PTT Baseline POC ABG pH POC ABG pCO2 POC ABG pO2 Sodium Potassium 3.0 L Chloride Carbon Dioxide BUN Creatinine 0.6 L Glucose 220 H POC Glucose 188 H Lactic Acid Calcium Phosphorus Magnesium Iron TIBC Transferrin AST C-Reactive Protein Total Protein Albumin Vitamin B12 PTH Intact Urine WBC (Auto) Urine Creatinine Urine Microalbumin Urine Total Protein Complement C3 Crossmatch 07/03/17 07/03/17 07/03/17 06:19 06:35 08:42 WBC RBC Hgb Hct MCV MCH MCHC RDW Plt Count Seg Neuts % (Manual) Lymphocytes % (Manual) Monocytes % (Manual) Seg Neutrophils # Man Lymphocytes # (Manual) Monocytes # (Manual) Eosinophils # (Manual) Lupus Anticoagulant LA PTT Baseline POC ABG pH POC ABG pCO2 POC ABG pO2 Sodium Potassium Chloride Carbon Dioxide BUN Creatinine Glucose POC Glucose Lactic Acid 2.50 H* 2.20 H* Calcium Phosphorus Magnesium Iron TIBC Transferrin AST C-Reactive Protein Total Protein Albumin Vitamin B12 PTH Intact Urine WBC (Auto) Urine Creatinine Urine Microalbumin Urine Total Protein Complement C3 Crossmatch See Detail 07/03/17 07/03/17 07/03/17 09:31 09:31 11:50 WBC RBC Hgb 5.7 L* Hct 22.4 L MCV MCH MCHC RDW Plt Count Seg Neuts % (Manual) Lymphocytes % (Manual) Monocytes % (Manual) Seg Neutrophils # Man Lymphocytes # (Manual) Monocytes # (Manual) Eosinophils # (Manual) Lupus Anticoagulant LA PTT Baseline POC ABG pH POC ABG pCO2 POC ABG pO2 Sodium Potassium Chloride Carbon Dioxide BUN Creatinine Glucose POC Glucose Lactic Acid 2.80 H* Calcium Phosphorus Magnesium Iron 12 L TIBC 534 H Transferrin AST C-Reactive Protein Total Protein Albumin Vitamin B12 PTH Intact Urine WBC (Auto) Urine Creatinine Urine Microalbumin Urine Total Protein Complement C3 Crossmatch 07/03/17 07/03/17 07/03/17 16:50 16:50 Unknown WBC RBC Hgb 9.7 L D Hct MCV MCH MCHC RDW Plt Count Seg Neuts % (Manual) Lymphocytes % (Manual) Monocytes % (Manual) Seg Neutrophils # Man Lymphocytes # (Manual) Monocytes # (Manual) Eosinophils # (Manual) Lupus Anticoagulant LA PTT Baseline POC ABG pH POC ABG pCO2 POC ABG pO2 Sodium Potassium Chloride Carbon Dioxide BUN Creatinine Glucose POC Glucose Lactic Acid 2.30 H* Calcium Phosphorus Magnesium Iron TIBC Transferrin AST C-Reactive Protein Total Protein Albumin Vitamin B12 PTH Intact Urine WBC (Auto) 18.0 H Urine Creatinine Urine Microalbumin Urine Total Protein Complement C3 Crossmatch 07/04/17 07/04/17 07/04/17 03:57 03:57 04:39 WBC 42.4 H* 42.8 H* RBC Hgb 9.1 L 9.3 L Hct MCV 65 L 66 L MCH 19 L 20 L MCHC 29 L RDW 37.3 H 37.3 H Plt Count 120 L Seg Neuts % (Manual) 93.5 H Lymphocytes % (Manual) 2.5 L Monocytes % (Manual) Seg Neutrophils # Man 40.0 H Lymphocytes # (Manual) 1.1 L Monocytes # (Manual) 1.1 H Eosinophils # (Manual) Lupus Anticoagulant LA PTT Baseline POC ABG pH POC ABG pCO2 POC ABG pO2 Sodium 134 L Potassium 3.5 L Chloride 95.4 L Carbon Dioxide 21 L BUN 6 L Creatinine 0.5 L Glucose 147 H POC Glucose Lactic Acid Calcium 7.9 L Phosphorus Magnesium Iron TIBC Transferrin AST C-Reactive Protein Total Protein Albumin Vitamin B12 PTH Intact Urine WBC (Auto) Urine Creatinine Urine Microalbumin Urine Total Protein Complement C3 Crossmatch 07/04/17 07/04/17 07/05/17 12:09 17:11 08:21 WBC 56.3 H* RBC Hgb 8.3 L Hct 29.1 L MCV 66 L MCH 19 L MCHC 28 L RDW 38.3 H Plt Count Seg Neuts % (Manual) 96.5 H Lymphocytes % (Manual) 1.0 L Monocytes % (Manual) Seg Neutrophils # Man 54.3 H Lymphocytes # (Manual) 0.6 L Monocytes # (Manual) 1.4 H Eosinophils # (Manual) Lupus Anticoagulant LA PTT Baseline POC ABG pH POC ABG pCO2 POC ABG pO2 Sodium Potassium Chloride Carbon Dioxide BUN Creatinine Glucose POC Glucose 169 H 124 H Lactic Acid Calcium Phosphorus Magnesium Iron TIBC Transferrin AST C-Reactive Protein Total Protein Albumin Vitamin B12 PTH Intact Urine WBC (Auto) Urine Creatinine Urine Microalbumin Urine Total Protein Complement C3 Crossmatch 07/05/17 07/05/17 07/05/17 08:21 10:55 22:34 WBC RBC Hgb Hct MCV MCH MCHC RDW Plt Count Seg Neuts % (Manual) Lymphocytes % (Manual) Monocytes % (Manual) Seg Neutrophils # Man Lymphocytes # (Manual) Monocytes # (Manual) Eosinophils # (Manual) Lupus Anticoagulant LA PTT Baseline POC ABG pH 7.185 L POC ABG pCO2 33.8 L POC ABG pO2 Sodium 135 L 135 L Potassium Chloride Carbon Dioxide 18 L 16 L BUN 25 H 27 H Creatinine 2.7 H D 2.9 H Glucose 115 H 119 H POC Glucose Lactic Acid Calcium 7.9 L 8.0 L Phosphorus Magnesium Iron TIBC Transferrin AST C-Reactive Protein Total Protein Albumin Vitamin B12 PTH Intact Urine WBC (Auto) Urine Creatinine Urine Microalbumin Urine Total Protein Complement C3 Crossmatch 07/05/17 07/06/17 07/06/17 Unknown 05:17 07:28 WBC RBC Hgb Hct MCV MCH MCHC RDW Plt Count Seg Neuts % (Manual) Lymphocytes % (Manual) Monocytes % (Manual) Seg Neutrophils # Man Lymphocytes # (Manual) Monocytes # (Manual) Eosinophils # (Manual) Lupus Anticoagulant LA PTT Baseline POC ABG pH POC ABG pCO2 28.0 L POC ABG pO2 193 H Sodium Potassium Chloride 112.6 H Carbon Dioxide 15 L BUN 35 H Creatinine 4.0 H Glucose POC Glucose Lactic Acid Calcium 5.8 L* D Phosphorus Magnesium 1.20 L Iron TIBC Transferrin 148 L AST C-Reactive Protein Total Protein Albumin Vitamin B12 PTH Intact Urine WBC (Auto) Urine Creatinine 237.2 H Urine Microalbumin 39.9 H Urine Total Protein 170 H Complement C3 Crossmatch 07/06/17 07/06/17 07/06/17 07:28 07:28 10:27 WBC 28.9 H RBC Hgb 7.1 L Hct 24.5 L MCV 66 L MCH 19 L MCHC 29 L RDW 38.6 H Plt Count Seg Neuts % (Manual) Lymphocytes % (Manual) Monocytes % (Manual) Seg Neutrophils # Man Lymphocytes # (Manual) Monocytes # (Manual) Eosinophils # (Manual) Lupus Anticoagulant LA PTT Baseline POC ABG pH POC ABG pCO2 POC ABG pO2 Sodium Potassium Chloride Carbon Dioxide BUN Creatinine Glucose POC Glucose Lactic Acid Calcium Phosphorus Magnesium Iron TIBC Transferrin AST C-Reactive Protein Total Protein Albumin Vitamin B12 PTH Intact 285.9 H Urine WBC (Auto) Urine Creatinine Urine Microalbumin Urine Total Protein Complement C3 Crossmatch See Detail 07/06/17 07/06/17 07/06/17 17:55 17:55 18:08 WBC RBC Hgb Hct MCV MCH MCHC RDW Plt Count Seg Neuts % (Manual) Lymphocytes % (Manual) Monocytes % (Manual) Seg Neutrophils # Man Lymphocytes # (Manual) Monocytes # (Manual) Eosinophils # (Manual) Lupus Anticoagulant see below H LA PTT Baseline 47 H POC ABG pH POC ABG pCO2 POC ABG pO2 Sodium Potassium Chloride Carbon Dioxide BUN Creatinine Glucose POC Glucose Lactic Acid Calcium Phosphorus Magnesium Iron TIBC Transferrin AST C-Reactive Protein 26.20 H Total Protein Albumin Vitamin B12 PTH Intact Urine WBC (Auto) Urine Creatinine Urine Microalbumin Urine Total Protein Complement C3 77 L Crossmatch 07/07/17 07/07/17 07/07/17 04:18 05:59 05:59 WBC 24.9 H RBC Hgb 8.8 L Hct 28.0 L MCV 72 L MCH 23 L MCHC RDW 33.3 H Plt Count Seg Neuts % (Manual) Lymphocytes % (Manual) Monocytes % (Manual) Seg Neutrophils # Man Lymphocytes # (Manual) Monocytes # (Manual) Eosinophils # (Manual) Lupus Anticoagulant LA PTT Baseline POC ABG pH POC ABG pCO2 27.5 L POC ABG pO2 61 L Sodium Potassium Chloride Carbon Dioxide 17 L BUN 46 H Creatinine 4.8 H Glucose 103 H POC Glucose Lactic Acid Calcium 7.6 L D Phosphorus Magnesium Iron TIBC Transferrin AST C-Reactive Protein Total Protein Albumin Vitamin B12 PTH Intact Urine WBC (Auto) Urine Creatinine Urine Microalbumin Urine Total Protein Complement C3 Crossmatch 07/07/17 07/08/17 07/08/17 05:59 04:22 04:22 WBC 21.3 H RBC Hgb 8.9 L Hct 27.5 L MCV 71 L MCH 23 L MCHC RDW 35.0 H Plt Count Seg Neuts % (Manual) Lymphocytes % (Manual) Monocytes % (Manual) Seg Neutrophils # Man Lymphocytes # (Manual) Monocytes # (Manual) Eosinophils # (Manual) Lupus Anticoagulant LA PTT Baseline POC ABG pH POC ABG pCO2 POC ABG pO2 Sodium Potassium Chloride Carbon Dioxide 18 L BUN 56 H Creatinine 4.3 H Glucose 110 H POC Glucose Lactic Acid Calcium 8.3 L Phosphorus Magnesium 2.50 H Iron TIBC Transferrin AST C-Reactive Protein Total Protein Albumin Vitamin B12 PTH Intact Urine WBC (Auto) Urine Creatinine Urine Microalbumin Urine Total Protein Complement C3 Crossmatch 07/08/17 07/08/17 07/08/17 04:22 05:40 12:36 WBC RBC Hgb Hct MCV MCH MCHC RDW Plt Count Seg Neuts % (Manual) Lymphocytes % (Manual) Monocytes % (Manual) Seg Neutrophils # Man Lymphocytes # (Manual) Monocytes # (Manual) Eosinophils # (Manual) Lupus Anticoagulant LA PTT Baseline POC ABG pH POC ABG pCO2 POC ABG pO2 158 H Sodium Potassium Chloride Carbon Dioxide BUN Creatinine Glucose POC Glucose 109 H Lactic Acid Calcium Phosphorus 4.80 H Magnesium 2.60 H Iron TIBC Transferrin AST C-Reactive Protein Total Protein Albumin Vitamin B12 PTH Intact Urine WBC (Auto) Urine Creatinine Urine Microalbumin Urine Total Protein Complement C3 Crossmatch 07/09/17 07/09/17 07/09/17 04:30 04:30 04:51 WBC RBC Hgb Hct MCV MCH MCHC RDW Plt Count Seg Neuts % (Manual) Lymphocytes % (Manual) Monocytes % (Manual) Seg Neutrophils # Man Lymphocytes # (Manual) Monocytes # (Manual) Eosinophils # (Manual) Lupus Anticoagulant LA PTT Baseline POC ABG pH 7.522 H POC ABG pCO2 POC ABG pO2 67 L Sodium Potassium 3.2 L D Chloride 96.3 L Carbon Dioxide BUN 60 H Creatinine 3.6 H Glucose 115 H POC Glucose Lactic Acid Calcium Phosphorus 4.80 H Magnesium Iron TIBC Transferrin AST C-Reactive Protein Total Protein Albumin Vitamin B12 PTH Intact Urine WBC (Auto) Urine Creatinine Urine Microalbumin Urine Total Protein Complement C3 Crossmatch 07/09/17 07/09/17 07/09/17 12:26 17:51 23:48 WBC RBC Hgb Hct MCV MCH MCHC RDW Plt Count Seg Neuts % (Manual) Lymphocytes % (Manual) Monocytes % (Manual) Seg Neutrophils # Man Lymphocytes # (Manual) Monocytes # (Manual) Eosinophils # (Manual) Lupus Anticoagulant LA PTT Baseline POC ABG pH POC ABG pCO2 POC ABG pO2 Sodium Potassium Chloride Carbon Dioxide BUN Creatinine Glucose POC Glucose 140 H 152 H 149 H Lactic Acid Calcium Phosphorus Magnesium Iron TIBC Transferrin AST C-Reactive Protein Total Protein Albumin Vitamin B12 PTH Intact Urine WBC (Auto) Urine Creatinine Urine Microalbumin Urine Total Protein Complement C3 Crossmatch 07/10/17 07/10/17 07/10/17 03:33 05:30 05:30 WBC 24.0 H RBC Hgb 9.0 L Hct 29.3 L MCV 69 L MCH 21 L MCHC RDW 35.9 H Plt Count 451 H Seg Neuts % (Manual) Lymphocytes % (Manual) Monocytes % (Manual) Seg Neutrophils # Man Lymphocytes # (Manual) Monocytes # (Manual) Eosinophils # (Manual) Lupus Anticoagulant LA PTT Baseline POC ABG pH 7.593 H POC ABG pCO2 34.7 L POC ABG pO2 73 L Sodium Potassium Chloride 96.8 L Carbon Dioxide 31 H BUN 61 H Creatinine 2.9 H Glucose 120 H POC Glucose Lactic Acid Calcium Phosphorus 5.20 H Magnesium Iron TIBC Transferrin AST C-Reactive Protein Total Protein Albumin Vitamin B12 PTH Intact Urine WBC (Auto) Urine Creatinine Urine Microalbumin Urine Total Protein Complement C3 Crossmatch 07/10/17 07/10/17 07/10/17 12:19 17:59 23:51 WBC RBC Hgb Hct MCV MCH MCHC RDW Plt Count Seg Neuts % (Manual) Lymphocytes % (Manual) Monocytes % (Manual) Seg Neutrophils # Man Lymphocytes # (Manual) Monocytes # (Manual) Eosinophils # (Manual) Lupus Anticoagulant LA PTT Baseline POC ABG pH POC ABG pCO2 POC ABG pO2 Sodium Potassium Chloride Carbon Dioxide BUN Creatinine Glucose POC Glucose 143 H 147 H 139 H Lactic Acid Calcium Phosphorus Magnesium Iron TIBC Transferrin AST C-Reactive Protein Total Protein Albumin Vitamin B12 PTH Intact Urine WBC (Auto) Urine Creatinine Urine Microalbumin Urine Total Protein Complement C3 Crossmatch 07/11/17 07/11/17 07/11/17 06:30 06:30 06:30 WBC 20.2 H RBC Hgb 8.4 L Hct 26.0 L MCV 71 L MCH 23 L MCHC RDW 35.6 H Plt Count 469 H Seg Neuts % (Manual) Lymphocytes % (Manual) Monocytes % (Manual) Seg Neutrophils # Man Lymphocytes # (Manual) Monocytes # (Manual) Eosinophils # (Manual) Lupus Anticoagulant LA PTT Baseline POC ABG pH POC ABG pCO2 POC ABG pO2 Sodium Potassium Chloride Carbon Dioxide 32 H BUN 58 H Creatinine 2.4 H Glucose 111 H POC Glucose Lactic Acid Calcium Phosphorus 6.10 H Magnesium 1.60 L Iron TIBC Transferrin AST C-Reactive Protein Total Protein Albumin Vitamin B12 PTH Intact Urine WBC (Auto) Urine Creatinine Urine Microalbumin Urine Total Protein Complement C3 Crossmatch 07/11/17 07/11/17 07/11/17 08:54 12:47 17:33 WBC RBC Hgb Hct MCV MCH MCHC RDW Plt Count Seg Neuts % (Manual) Lymphocytes % (Manual) Monocytes % (Manual) Seg Neutrophils # Man Lymphocytes # (Manual) Monocytes # (Manual) Eosinophils # (Manual) Lupus Anticoagulant LA PTT Baseline POC ABG pH 7.485 H POC ABG pCO2 POC ABG pO2 Sodium Potassium Chloride Carbon Dioxide BUN Creatinine Glucose POC Glucose 168 H 151 H Lactic Acid Calcium Phosphorus Magnesium Iron TIBC Transferrin AST C-Reactive Protein Total Protein Albumin Vitamin B12 PTH Intact Urine WBC (Auto) Urine Creatinine Urine Microalbumin Urine Total Protein Complement C3 Crossmatch 07/11/17 07/12/17 07/12/17 23:52 05:39 06:25 WBC RBC Hgb Hct MCV MCH MCHC RDW Plt Count Seg Neuts % (Manual) Lymphocytes % (Manual) Monocytes % (Manual) Seg Neutrophils # Man Lymphocytes # (Manual) Monocytes # (Manual) Eosinophils # (Manual) Lupus Anticoagulant LA PTT Baseline POC ABG pH POC ABG pCO2 POC ABG pO2 Sodium Potassium Chloride Carbon Dioxide BUN 43 H Creatinine 1.8 H Glucose 138 H POC Glucose 156 H 146 H Lactic Acid Calcium Phosphorus 5.90 H Magnesium Iron TIBC Transferrin AST C-Reactive Protein Total Protein Albumin Vitamin B12 PTH Intact Urine WBC (Auto) Urine Creatinine Urine Microalbumin Urine Total Protein Complement C3 Crossmatch 07/12/17 07/12/17 07/12/17 11:46 12:14 17:01 WBC RBC Hgb Hct MCV MCH MCHC RDW Plt Count Seg Neuts % (Manual) Lymphocytes % (Manual) Monocytes % (Manual) Seg Neutrophils # Man Lymphocytes # (Manual) Monocytes # (Manual) Eosinophils # (Manual) Lupus Anticoagulant LA PTT Baseline POC ABG pH 7.477 H POC ABG pCO2 POC ABG pO2 Sodium Potassium Chloride Carbon Dioxide BUN Creatinine Glucose POC Glucose 156 H Lactic Acid Calcium Phosphorus Magnesium Iron TIBC Transferrin AST C-Reactive Protein 10.30 H Total Protein Albumin Vitamin B12 PTH Intact Urine WBC (Auto) Urine Creatinine Urine Microalbumin Urine Total Protein Complement C3 Crossmatch 07/12/17 07/12/17 07/13/17 18:03 23:47 05:53 WBC RBC Hgb Hct MCV MCH MCHC RDW Plt Count Seg Neuts % (Manual) Lymphocytes % (Manual) Monocytes % (Manual) Seg Neutrophils # Man Lymphocytes # (Manual) Monocytes # (Manual) Eosinophils # (Manual) Lupus Anticoagulant LA PTT Baseline POC ABG pH POC ABG pCO2 POC ABG pO2 Sodium Potassium Chloride Carbon Dioxide BUN Creatinine Glucose POC Glucose 140 H 158 H 137 H Lactic Acid Calcium Phosphorus Magnesium Iron TIBC Transferrin AST C-Reactive Protein Total Protein Albumin Vitamin B12 PTH Intact Urine WBC (Auto) Urine Creatinine Urine Microalbumin Urine Total Protein Complement C3 Crossmatch 07/13/17 07/13/17 07/13/17 06:15 08:26 10:43 WBC 18.3 H RBC 3.35 L Hgb 7.6 L Hct 24.4 L MCV 73 L MCH 23 L MCHC RDW 35.3 H Plt Count 520 H Seg Neuts % (Manual) 81.0 H Lymphocytes % (Manual) 12.0 L Monocytes % (Manual) Seg Neutrophils # Man 14.8 H Lymphocytes # (Manual) Monocytes # (Manual) Eosinophils # (Manual) 0.7 H Lupus Anticoagulant LA PTT Baseline POC ABG pH 7.459 H POC ABG pCO2 POC ABG pO2 Sodium 149 H Potassium Chloride Carbon Dioxide BUN 31 H Creatinine 1.3 H Glucose 112 H POC Glucose Lactic Acid Calcium Phosphorus 5.10 H Magnesium 1.60 L Iron TIBC Transferrin AST C-Reactive Protein Total Protein Albumin Vitamin B12 PTH Intact Urine WBC (Auto) Urine Creatinine Urine Microalbumin Urine Total Protein Complement C3 Crossmatch 07/13/17 07/13/17 07/14/17 12:16 17:38 00:16 WBC RBC Hgb Hct MCV MCH MCHC RDW Plt Count Seg Neuts % (Manual) Lymphocytes % (Manual) Monocytes % (Manual) Seg Neutrophils # Man Lymphocytes # (Manual) Monocytes # (Manual) Eosinophils # (Manual) Lupus Anticoagulant LA PTT Baseline POC ABG pH POC ABG pCO2 POC ABG pO2 Sodium Potassium Chloride Carbon Dioxide BUN Creatinine Glucose POC Glucose 141 H 144 H 152 H Lactic Acid Calcium Phosphorus Magnesium Iron TIBC Transferrin AST C-Reactive Protein Total Protein Albumin Vitamin B12 PTH Intact Urine WBC (Auto) Urine Creatinine Urine Microalbumin Urine Total Protein Complement C3 Crossmatch 07/14/17 07/14/17 07/14/17 06:11 09:35 12:52 WBC RBC Hgb Hct MCV MCH MCHC RDW Plt Count Seg Neuts % (Manual) Lymphocytes % (Manual) Monocytes % (Manual) Seg Neutrophils # Man Lymphocytes # (Manual) Monocytes # (Manual) Eosinophils # (Manual) Lupus Anticoagulant LA PTT Baseline POC ABG pH POC ABG pCO2 POC ABG pO2 Sodium Potassium 3.5 L Chloride Carbon Dioxide BUN 21 H Creatinine Glucose 139 H POC Glucose 138 H 154 H Lactic Acid Calcium Phosphorus Magnesium 1.40 L Iron TIBC Transferrin AST 42 H C-Reactive Protein Total Protein 6.1 L Albumin 2.6 L Vitamin B12 PTH Intact Urine WBC (Auto) Urine Creatinine Urine Microalbumin Urine Total Protein Complement C3 Crossmatch 07/14/17 07/15/17 07/15/17 17:17 00:56 06:21 WBC RBC Hgb Hct MCV MCH MCHC RDW Plt Count Seg Neuts % (Manual) Lymphocytes % (Manual) Monocytes % (Manual) Seg Neutrophils # Man Lymphocytes # (Manual) Monocytes # (Manual) Eosinophils # (Manual) Lupus Anticoagulant LA PTT Baseline POC ABG pH POC ABG pCO2 POC ABG pO2 Sodium Potassium Chloride Carbon Dioxide BUN Creatinine Glucose POC Glucose 133 H 144 H 137 H Lactic Acid Calcium Phosphorus Magnesium Iron TIBC Transferrin AST C-Reactive Protein Total Protein Albumin Vitamin B12 PTH Intact Urine WBC (Auto) Urine Creatinine Urine Microalbumin Urine Total Protein Complement C3 Crossmatch 07/15/17 07/15/17 07/15/17 11:49 16:49 22:19 WBC RBC Hgb Hct MCV MCH MCHC RDW Plt Count Seg Neuts % (Manual) Lymphocytes % (Manual) Monocytes % (Manual) Seg Neutrophils # Man Lymphocytes # (Manual) Monocytes # (Manual) Eosinophils # (Manual) Lupus Anticoagulant LA PTT Baseline POC ABG pH POC ABG pCO2 POC ABG pO2 Sodium Potassium Chloride Carbon Dioxide BUN Creatinine Glucose POC Glucose 145 H 141 H 136 H Lactic Acid Calcium Phosphorus Magnesium Iron TIBC Transferrin AST C-Reactive Protein Total Protein Albumin Vitamin B12 PTH Intact Urine WBC (Auto) Urine Creatinine Urine Microalbumin Urine Total Protein Complement C3 Crossmatch 07/16/17 07/16/17 07/16/17 05:24 07:07 16:52 WBC RBC Hgb Hct MCV MCH MCHC RDW Plt Count Seg Neuts % (Manual) Lymphocytes % (Manual) Monocytes % (Manual) Seg Neutrophils # Man Lymphocytes # (Manual) Monocytes # (Manual) Eosinophils # (Manual) Lupus Anticoagulant LA PTT Baseline POC ABG pH POC ABG pCO2 POC ABG pO2 Sodium Potassium Chloride 107.1 H Carbon Dioxide 20 L BUN 18 H Creatinine Glucose 125 H POC Glucose 147 H 128 H Lactic Acid Calcium 8.2 L Phosphorus Magnesium Iron TIBC Transferrin AST C-Reactive Protein Total Protein Albumin Vitamin B12 PTH Intact Urine WBC (Auto) Urine Creatinine Urine Microalbumin Urine Total Protein Complement C3 Crossmatch 07/16/17 07/17/17 07/17/17 22:12 06:08 07:00 WBC RBC Hgb Hct MCV MCH MCHC RDW Plt Count Seg Neuts % (Manual) Lymphocytes % (Manual) Monocytes % (Manual) Seg Neutrophils # Man Lymphocytes # (Manual) Monocytes # (Manual) Eosinophils # (Manual) Lupus Anticoagulant LA PTT Baseline POC ABG pH POC ABG pCO2 POC ABG pO2 Sodium Potassium Chloride Carbon Dioxide 19 L BUN Creatinine Glucose 110 H POC Glucose 117 H 131 H Lactic Acid Calcium Phosphorus Magnesium Iron TIBC Transferrin AST C-Reactive Protein Total Protein Albumin Vitamin B12 PTH Intact Urine WBC (Auto) Urine Creatinine Urine Microalbumin Urine Total Protein Complement C3 Crossmatch 07/17/17 07/17/17 07/17/17 12:07 12:30 17:47 WBC 13.8 H RBC 3.15 L Hgb 7.2 L Hct 23.3 L MCV 74 L MCH 23 L MCHC RDW 34.7 H Plt Count 514 H Seg Neuts % (Manual) Lymphocytes % (Manual) Monocytes % (Manual) Seg Neutrophils # Man Lymphocytes # (Manual) Monocytes # (Manual) Eosinophils # (Manual) Lupus Anticoagulant LA PTT Baseline POC ABG pH POC ABG pCO2 POC ABG pO2 Sodium Potassium Chloride Carbon Dioxide BUN Creatinine Glucose POC Glucose 149 H 106 H Lactic Acid Calcium Phosphorus Magnesium Iron TIBC Transferrin AST C-Reactive Protein Total Protein Albumin Vitamin B12 PTH Intact Urine WBC (Auto) Urine Creatinine Urine Microalbumin Urine Total Protein Complement C3 Crossmatch 07/18/17 07/18/17 07/18/17 06:32 06:50 09:10 WBC RBC Hgb Hct MCV MCH MCHC RDW Plt Count Seg Neuts % (Manual) Lymphocytes % (Manual) Monocytes % (Manual) Seg Neutrophils # Man Lymphocytes # (Manual) Monocytes # (Manual) Eosinophils # (Manual) Lupus Anticoagulant LA PTT Baseline POC ABG pH POC ABG pCO2 POC ABG pO2 Sodium 132 L D Potassium 5.8 H Chloride 95.0 L Carbon Dioxide BUN Creatinine Glucose 121 H POC Glucose 148 H Lactic Acid Calcium 8.1 L Phosphorus 5.70 H D 4.60 H Magnesium 2.90 H Iron TIBC Transferrin AST C-Reactive Protein Total Protein Albumin Vitamin B12 PTH Intact Urine WBC (Auto) Urine Creatinine Urine Microalbumin Urine Total Protein Complement C3 Crossmatch 07/18/17 07/18/17 07/18/17 11:08 16:03 22:05 WBC RBC Hgb Hct MCV MCH MCHC RDW Plt Count Seg Neuts % (Manual) Lymphocytes % (Manual) Monocytes % (Manual) Seg Neutrophils # Man Lymphocytes # (Manual) Monocytes # (Manual) Eosinophils # (Manual) Lupus Anticoagulant LA PTT Baseline POC ABG pH POC ABG pCO2 POC ABG pO2 Sodium Potassium Chloride Carbon Dioxide BUN Creatinine Glucose POC Glucose 151 H 142 H 147 H Lactic Acid Calcium Phosphorus Magnesium Iron TIBC Transferrin AST C-Reactive Protein Total Protein Albumin Vitamin B12 PTH Intact Urine WBC (Auto) Urine Creatinine Urine Microalbumin Urine Total Protein Complement C3 Crossmatch 07/19/17 07/19/17 07/19/17 05:54 06:05 06:05 WBC RBC Hgb Hct MCV MCH MCHC RDW Plt Count Seg Neuts % (Manual) Lymphocytes % (Manual) Monocytes % (Manual) Seg Neutrophils # Man Lymphocytes # (Manual) Monocytes # (Manual) Eosinophils # (Manual) Lupus Anticoagulant LA PTT Baseline POC ABG pH POC ABG pCO2 POC ABG pO2 Sodium Potassium Chloride Carbon Dioxide BUN Creatinine Glucose 116 H POC Glucose 138 H Lactic Acid Calcium Phosphorus Magnesium Iron 34 L TIBC Transferrin AST C-Reactive Protein Total Protein Albumin Vitamin B12 1373 H PTH Intact Urine WBC (Auto) Urine Creatinine Urine Microalbumin Urine Total Protein Complement C3 Crossmatch 07/19/17 07/19/17 07/20/17 11:27 21:18 06:10 WBC RBC Hgb Hct MCV MCH MCHC RDW Plt Count Seg Neuts % (Manual) Lymphocytes % (Manual) Monocytes % (Manual) Seg Neutrophils # Man Lymphocytes # (Manual) Monocytes # (Manual) Eosinophils # (Manual) Lupus Anticoagulant LA PTT Baseline POC ABG pH POC ABG pCO2 POC ABG pO2 Sodium 135 L Potassium Chloride Carbon Dioxide BUN 18 H Creatinine Glucose 106 H POC Glucose 135 H 134 H Lactic Acid Calcium Phosphorus Magnesium Iron TIBC Transferrin AST C-Reactive Protein Total Protein Albumin Vitamin B12 PTH Intact Urine WBC (Auto) Urine Creatinine Urine Microalbumin Urine Total Protein Complement C3 Crossmatch 07/20/17 07/20/17 07/20/17 06:22 11:54 12:30 WBC RBC 3.09 L Hgb 7.4 L Hct 23.2 L MCV 75 L MCH 24 L MCHC RDW 33.2 H Plt Count 523 H Seg Neuts % (Manual) 74.0 H Lymphocytes % (Manual) Monocytes % (Manual) 9.0 H Seg Neutrophils # Man Lymphocytes # (Manual) Monocytes # (Manual) 0.9 H Eosinophils # (Manual) Lupus Anticoagulant LA PTT Baseline POC ABG pH POC ABG pCO2 POC ABG pO2 Sodium Potassium Chloride Carbon Dioxide BUN Creatinine Glucose POC Glucose 141 H 152 H Lactic Acid Calcium Phosphorus Magnesium Iron TIBC Transferrin AST C-Reactive Protein Total Protein Albumin Vitamin B12 PTH Intact Urine WBC (Auto) Urine Creatinine Urine Microalbumin Urine Total Protein Complement C3 Crossmatch 07/20/17 07/21/17 07/21/17 17:33 05:36 06:00 WBC RBC Hgb Hct MCV MCH MCHC RDW Plt Count Seg Neuts % (Manual) Lymphocytes % (Manual) Monocytes % (Manual) Seg Neutrophils # Man Lymphocytes # (Manual) Monocytes # (Manual) Eosinophils # (Manual) Lupus Anticoagulant LA PTT Baseline POC ABG pH POC ABG pCO2 POC ABG pO2 Sodium Potassium Chloride 97.6 L Carbon Dioxide BUN 18 H Creatinine Glucose 129 H POC Glucose 134 H 138 H Lactic Acid Calcium Phosphorus Magnesium Iron TIBC Transferrin AST C-Reactive Protein Total Protein Albumin Vitamin B12 PTH Intact Urine WBC (Auto) Urine Creatinine Urine Microalbumin Urine Total Protein Complement C3 Crossmatch Allied health notes reviewed: nursing
[2017-07-21] MEDS: TRANSDERM-SCOP TD SCH (11:16)
--- NOTE | 2017-07-21 19:11 | Progress Note ---
Assessment and Plan Patient is a 42-year-old female with past medical history significant for hypertension which she takes lisinopril 10 mg daily, etoh abuse who presented with c/o abdominal pain and diarrhea. 1. Severe Sepsis due to gangrenous bowel; s/p removal of near complete small intestine; lifelong TPN for nutrition, completed abx per ID 2. EMMA secondary to vasomotor nephropathy with underlying ATN; resolved 3. Peritoneal irritation due to infected bowel, resolved 4. Severe Anemia, Transfuse as need, for far 5 units transfused 5. Ischemic/Gangrenous Bowel, s/p resection, on TPN lifelong 6. Worsening luekocytosis, from sepsis, resolved 8. Hypertensive urgency-resolved 9. Menorraghia secondary to Fibroids 10. Etoh use disorder, now stable, no sign of withdrawl 11. Right liver lesion ?Hemangioma 12. Multiple electrolyte abnormalities, repleted 13. Hypothermia from sepsis-Resolved 14. Cocain abuse per hx. Not mentioned on admission. Only alcohol which was minimized. 15. 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 Acute respiratory failure on MV >96 hours; extubated 07/13, resolved 17. Positive Lupus anticoagulant, consulted heamatology and recommended to f/u outpt case dw CM; she has no paysource and needs to be dc on TPN, awaiting insurance application Hospitalist Physical General appearance: Present: no acute distress - EENT Eyes: Present: PERRL ENT: clear oral mucosa - Neck Neck: Present: supple - Respiratory Respiratory effort: normal Respiratory: bilateral: CTA - Cardiovascular Rhythm: regular Heart Sounds: Present: S1 & S2 - Extremities Extremities: no ischemia Peripheral Pulses: within normal limits - Abdominal General gastrointestinal: soft, other (post surgical changes) - Integumentary Integumentary: Present: clear, warm, dry - Psychiatric Psychiatric: cooperative - Neurologic Neurologic: moves all extremities Subjective Principal diagnosis: Post-Op Resp Failure on MVS; Ischemic Bowel s/p Ex-Lap; EMMA Interval history: Patient seen on examined now placed on low carb diet for comfort measure have one unit PRBC transfusion for hb of 7.4 Objective - Constitutional Vitals: Vital Signs - 12hr 07/21/17 07/21/17 07/21/17 07:46 12:26 18:10 Temperature 98.7 F 99.3 F 99.2 F Pulse Rate 72 80 66 Respiratory 15 16 16 Rate Blood Pressure 121/72 137/79 116/60 O2 Sat by Pulse 100 100 100 Oximetry - Labs CBC & Chem 7: 07/22/17 07:40 07/22/17 07:40 Labs: Abnormal lab results 07/21/17 07/21/17 07/21/17 Range/Units 05:36 06:00 12:15 Chloride 97.6 L (98-107) mmol/L BUN 18 H (7-17) mg/dL Glucose 129 H (65-100) mg/dL POC Glucose 138 H 142 H (70-105) Crossmatch 07/21/17 Range/Units 15:15 Chloride (98-107) mmol/L BUN (7-17) mg/dL Glucose (65-100) mg/dL POC Glucose (70-105) Crossmatch See Detail
[2017-07-21] MEDS ORDERED: TPN ADULT 2,016 ML IV SCH (20:00)
[2017-07-21] MEDS ORDERED: NACL 0.9% 500 ML 500 ML IV NR (21:00)
[2017-07-22] MEDS: MORPHINE IV PRN ×4 (03:14→20:37)
[2017-07-22] MEDS: HEPARIN SUB-Q SCH ×3 (06:37→23:18)
[2017-07-22 07:59] LABS: Hemoglobin 9.6 gm/dl (10.1-14.3); Mean Corpuscular HGB Conc 34 % (30-34); Mean Corpuscular Volume 76 fl (79-97); Platelet Count 459 K/mm3 (140-440)
[2017-07-22 08:07] LABS: Mean Corpuscular Hemoglobin 26 pg (28-32); Red Cell Distribution Width 30.2 % (13.2-15.2)
[2017-07-22 08:18] LABS: BUN/Creatinine Ratio 29; Blood Urea Nitrogen 20 mg/dL (7-17); Calcium 8.8 mg/dL (8.4-10.2); Hemolysis Index 2
[2017-07-22] MEDS: PEPCID PO SCH ×2 (09:35→23:10)
[2017-07-22] MEDS: NORVASC PO SCH (09:35)
[2017-07-22] MEDS: DIOVAN PO SCH ×2 (09:35→23:09)
[2017-07-22] MEDS: VIBRAMYCIN PO SCH ×2 (09:35→23:10)
[2017-07-22] MEDS: CATAPRES PO SCH ×2 (09:36→23:07)
[2017-07-22] MEDS: COREG PO SCH ×2 (09:36→23:08)
--- NOTE | 2017-07-22 12:39 | Progress Note ---
Assessment and Plan Postoperative respiratory failure, now s/p mechanical ventilatory support Sepsis syndrome (resolving) Ischemic bowel, possibly secondary to embolic event vs related to drug abuse H/O Cocaine use with possibility of arterial spasm. Acute kidney injury. Leukocytosis. Uncontrolled hypertension. CMOP Severe anemia. Drug abuse. Alcohol abuse (CXR with gross cardiomegaly) - continue to advance diet per ST - continue wound carewound care per WCT - aspiration precautions - tobacco cessation counselling stressed at bedside - GI & VTE prophylaxis - bronchodilators prn - continue TPN - will need significant assistance with lifestyle changes and resettlement + drug rehab - supplemental oxygen as needed to keep sats > 90% - PT/OT ... overall improved ...25' Subjective Date of service: 07/22/17 Principal diagnosis: Post-Op Resp Failure on MVS; Ischemic Bowel s/p Ex-Lap; EMMA Interval history: Patient is seen today for: Post-Op Resp Failure on MVS; Ischemic Bowel s/p Ex- Lap; EMMA Seen and examined at bedside; 24hour events reviewed; nursing and respiratory care staff consulted; no adverse overnight events reported to me; resting peacefully in bed; denies acute chest pains; No N/V/F/C or overt aspiration; seen by surgeon per patient and wounds look good. Objective Vital Signs - 12hr 07/22/17 07/22/17 07/22/17 00:40 01:10 03:14 Temperature 98.7 F 98.6 F Pulse Rate 75 67 Respiratory 18 17 18 Rate Respiratory Rate [abd] Blood Pressure 131/70 137/72 O2 Sat by Pulse 100 100 Oximetry 07/22/17 07/22/17 07/22/17 03:44 07:28 09:35 Temperature 98.9 F Pulse Rate 72 Respiratory 16 18 Rate Respiratory Rate [abd] Blood Pressure 129/66 159/76 O2 Sat by Pulse 100 Oximetry 07/22/17 07/22/17 09:36 10:00 Temperature Pulse Rate Respiratory Rate Respiratory 16 Rate [abd] Blood Pressure 159/76 O2 Sat by Pulse Oximetry Constitutional: no acute distress, other (sedated) Eyes: non-icteric ENT: oropharynx moist, other (mallampatti 3) Neck: supple, no lymphadenopathy, other (no thyromegaly) Effort: mildly labored Ascultation: Bilateral: diminished breath sounds (bases), rhonchi Percussion: Bilateral: not dull Cardiovascular: regular rate and rhythm, other (No R/M) Gastrointestinal: hypoactive bowel sounds, soft, non-tender, non-distended, other (no palpable HSM; clean dressing over abdominal incision site) Integumentary: normal Extremities: no cyanosis, no edema, pulses normal, no ischemia or petechiae Neurologic: normal mental status, non-focal exam, pupils equal and round, CN II- XII normal Psychiatric: mood appropriate, affect normal CBC and BMP: 07/22/17 07:40 07/23/17 05:15 ABG, PT/INR, D-dimer: ABG POC ABG pH 7.459 (7.35-7.45) H 07/13/17 08:26 POC ABG pCO2 40.4 (35-45) 07/13/17 08:26 POC ABG pO2 99 (80-105) 07/13/17 08:26 POC ABG HCO3 28.6 07/13/17 08:26 POC ABG Total CO2 30 07/13/17 08:26 POC ABG O2 Sat 98 07/13/17 08:26 PT/INR, D-dimer PT 12.5 Sec. (12.2-14.9) 07/03/17 06:19 INR 0.89 (0.87-1.13) 07/03/17 06:19 Abnormal lab findings: Abnormal Labs 07/03/17 07/03/17 07/03/17 05:11 05:28 05:28 WBC 12.9 H RBC Hgb 5.6 L* Hct 22.3 L MCV 59 L MCH 15 L MCHC 25 L RDW 33.3 H Plt Count 125 L Seg Neuts % (Manual) 75.0 H Lymphocytes % (Manual) Monocytes % (Manual) Seg Neutrophils # Man 9.7 H Lymphocytes # (Manual) Monocytes # (Manual) Eosinophils # (Manual) Lupus Anticoagulant LA PTT Baseline POC ABG pH POC ABG pCO2 POC ABG pO2 Sodium Potassium 3.0 L Chloride Carbon Dioxide BUN Creatinine 0.6 L Glucose 220 H POC Glucose 188 H Lactic Acid Calcium Phosphorus Magnesium Iron TIBC Transferrin AST C-Reactive Protein Total Protein Albumin Vitamin B12 PTH Intact Urine WBC (Auto) Urine Creatinine Urine Microalbumin Urine Total Protein Complement C3 Crossmatch 05/03/2207/03/17 07/03/17 06:19 06:35 08:42 WBC RBC Hgb Hct MCV MCH MCHC RDW Plt Count Seg Neuts % (Manual) Lymphocytes % (Manual) Monocytes % (Manual) Seg Neutrophils # Man Lymphocytes # (Manual) Monocytes # (Manual) Eosinophils # (Manual) Lupus Anticoagulant LA PTT Baseline POC ABG pH POC ABG pCO2 POC ABG pO2 Sodium Potassium Chloride Carbon Dioxide BUN Creatinine Glucose POC Glucose Lactic Acid 2.50 H* 2.20 H* Calcium Phosphorus Magnesium Iron TIBC Transferrin AST C-Reactive Protein Total Protein Albumin Vitamin B12 PTH Intact Urine WBC (Auto) Urine Creatinine Urine Microalbumin Urine Total Protein Complement C3 Crossmatch See Detail 07/03/17 07/03/17 07/03/17 09:31 09:31 11:50 WBC RBC Hgb 5.7 L* Hct 22.4 L MCV MCH MCHC RDW Plt Count Seg Neuts % (Manual) Lymphocytes % (Manual) Monocytes % (Manual) Seg Neutrophils # Man Lymphocytes # (Manual) Monocytes # (Manual) Eosinophils # (Manual) Lupus Anticoagulant LA PTT Baseline POC ABG pH POC ABG pCO2 POC ABG pO2 Sodium Potassium Chloride Carbon Dioxide BUN Creatinine Glucose POC Glucose Lactic Acid 2.80 H* Calcium Phosphorus Magnesium Iron 12 L TIBC 534 H Transferrin AST C-Reactive Protein Total Protein Albumin Vitamin B12 PTH Intact Urine WBC (Auto) Urine Creatinine Urine Microalbumin Urine Total Protein Complement C3 Crossmatch 07/03/17 07/03/17 07/03/17 16:50 16:50 Unknown WBC RBC Hgb 9.7 L D Hct MCV MCH MCHC RDW Plt Count Seg Neuts % (Manual) Lymphocytes % (Manual) Monocytes % (Manual) Seg Neutrophils # Man Lymphocytes # (Manual) Monocytes # (Manual) Eosinophils # (Manual) Lupus Anticoagulant LA PTT Baseline POC ABG pH POC ABG pCO2 POC ABG pO2 Sodium Potassium Chloride Carbon Dioxide BUN Creatinine Glucose POC Glucose Lactic Acid 2.30 H* Calcium Phosphorus Magnesium Iron TIBC Transferrin AST C-Reactive Protein Total Protein Albumin Vitamin B12 PTH Intact Urine WBC (Auto) 18.0 H Urine Creatinine Urine Microalbumin Urine Total Protein Complement C3 Crossmatch 07/04/17 07/04/17 07/04/17 03:57 03:57 04:39 WBC 42.4 H* 42.8 H* RBC Hgb 9.1 L 9.3 L Hct MCV 65 L 66 L MCH 19 L 20 L MCHC 29 L RDW 37.3 H 37.3 H Plt Count 120 L Seg Neuts % (Manual) 93.5 H Lymphocytes % (Manual) 2.5 L Monocytes % (Manual) Seg Neutrophils # Man 40.0 H Lymphocytes # (Manual) 1.1 L Monocytes # (Manual) 1.1 H Eosinophils # (Manual) Lupus Anticoagulant LA PTT Baseline POC ABG pH POC ABG pCO2 POC ABG pO2 Sodium 134 L Potassium 3.5 L Chloride 95.4 L Carbon Dioxide 21 L BUN 6 L Creatinine 0.5 L Glucose 147 H POC Glucose Lactic Acid Calcium 7.9 L Phosphorus Magnesium Iron TIBC Transferrin AST C-Reactive Protein Total Protein Albumin Vitamin B12 PTH Intact Urine WBC (Auto) Urine Creatinine Urine Microalbumin Urine Total Protein Complement C3 Crossmatch 07/04/17 07/04/17 07/05/17 12:09 17:11 08:21 WBC 56.3 H* RBC Hgb 8.3 L Hct 29.1 L MCV 66 L MCH 19 L MCHC 28 L RDW 38.3 H Plt Count Seg Neuts % (Manual) 96.5 H Lymphocytes % (Manual) 1.0 L Monocytes % (Manual) Seg Neutrophils # Man 54.3 H Lymphocytes # (Manual) 0.6 L Monocytes # (Manual) 1.4 H Eosinophils # (Manual) Lupus Anticoagulant LA PTT Baseline POC ABG pH POC ABG pCO2 POC ABG pO2 Sodium Potassium Chloride Carbon Dioxide BUN Creatinine Glucose POC Glucose 169 H 124 H Lactic Acid Calcium Phosphorus Magnesium Iron TIBC Transferrin AST C-Reactive Protein Total Protein Albumin Vitamin B12 PTH Intact Urine WBC (Auto) Urine Creatinine Urine Microalbumin Urine Total Protein Complement C3 Crossmatch 07/05/17 07/05/17 07/05/17 08:21 10:55 22:34 WBC RBC Hgb Hct MCV MCH MCHC RDW Plt Count Seg Neuts % (Manual) Lymphocytes % (Manual) Monocytes % (Manual) Seg Neutrophils # Man Lymphocytes # (Manual) Monocytes # (Manual) Eosinophils # (Manual) Lupus Anticoagulant LA PTT Baseline POC ABG pH 7.185 L POC ABG pCO2 33.8 L POC ABG pO2 Sodium 135 L 135 L Potassium Chloride Carbon Dioxide 18 L 16 L BUN 25 H 27 H Creatinine 2.7 H D 2.9 H Glucose 115 H 119 H POC Glucose Lactic Acid Calcium 7.9 L 8.0 L Phosphorus Magnesium Iron TIBC Transferrin AST C-Reactive Protein Total Protein Albumin Vitamin B12 PTH Intact Urine WBC (Auto) Urine Creatinine Urine Microalbumin Urine Total Protein Complement C3 Crossmatch 07/05/17 07/06/17 07/06/17 Unknown 05:17 07:28 WBC RBC Hgb Hct MCV MCH MCHC RDW Plt Count Seg Neuts % (Manual) Lymphocytes % (Manual) Monocytes % (Manual) Seg Neutrophils # Man Lymphocytes # (Manual) Monocytes # (Manual) Eosinophils # (Manual) Lupus Anticoagulant LA PTT Baseline POC ABG pH POC ABG pCO2 28.0 L POC ABG pO2 193 H Sodium Potassium Chloride 112.6 H Carbon Dioxide 15 L BUN 35 H Creatinine 4.0 H Glucose POC Glucose Lactic Acid Calcium 5.8 L* D Phosphorus Magnesium 1.20 L Iron TIBC Transferrin 148 L AST C-Reactive Protein Total Protein Albumin Vitamin B12 PTH Intact Urine WBC (Auto) Urine Creatinine 237.2 H Urine Microalbumin 39.9 H Urine Total Protein 170 H Complement C3 Crossmatch 07/06/17 07/06/17 07/06/17 07:28 07:28 10:27 WBC 28.9 H RBC Hgb 7.1 L Hct 24.5 L MCV 66 L MCH 19 L MCHC 29 L RDW 38.6 H Plt Count Seg Neuts % (Manual) Lymphocytes % (Manual) Monocytes % (Manual) Seg Neutrophils # Man Lymphocytes # (Manual) Monocytes # (Manual) Eosinophils # (Manual) Lupus Anticoagulant LA PTT Baseline POC ABG pH POC ABG pCO2 POC ABG pO2 Sodium Potassium Chloride Carbon Dioxide BUN Creatinine Glucose POC Glucose Lactic Acid Calcium Phosphorus Magnesium Iron TIBC Transferrin AST C-Reactive Protein Total Protein Albumin Vitamin B12 PTH Intact 285.9 H Urine WBC (Auto) Urine Creatinine Urine Microalbumin Urine Total Protein Complement C3 Crossmatch See Detail 07/06/17 07/06/17 07/06/17 17:55 17:55 18:08 WBC RBC Hgb Hct MCV MCH MCHC RDW Plt Count Seg Neuts % (Manual) Lymphocytes % (Manual) Monocytes % (Manual) Seg Neutrophils # Man Lymphocytes # (Manual) Monocytes # (Manual) Eosinophils # (Manual) Lupus Anticoagulant see below H LA PTT Baseline 47 H POC ABG pH POC ABG pCO2 POC ABG pO2 Sodium Potassium Chloride Carbon Dioxide BUN Creatinine Glucose POC Glucose Lactic Acid Calcium Phosphorus Magnesium Iron TIBC Transferrin AST C-Reactive Protein 26.20 H Total Protein Albumin Vitamin B12 PTH Intact Urine WBC (Auto) Urine Creatinine Urine Microalbumin Urine Total Protein Complement C3 77 L Crossmatch 07/07/17 07/07/17 07/07/17 04:18 05:59 05:59 WBC 24.9 H RBC Hgb 8.8 L Hct 28.0 L MCV 72 L MCH 23 L MCHC RDW 33.3 H Plt Count Seg Neuts % (Manual) Lymphocytes % (Manual) Monocytes % (Manual) Seg Neutrophils # Man Lymphocytes # (Manual) Monocytes # (Manual) Eosinophils # (Manual) Lupus Anticoagulant LA PTT Baseline POC ABG pH POC ABG pCO2 27.5 L POC ABG pO2 61 L Sodium Potassium Chloride Carbon Dioxide 17 L BUN 46 H Creatinine 4.8 H Glucose 103 H POC Glucose Lactic Acid Calcium 7.6 L D Phosphorus Magnesium Iron TIBC Transferrin AST C-Reactive Protein Total Protein Albumin Vitamin B12 PTH Intact Urine WBC (Auto) Urine Creatinine Urine Microalbumin Urine Total Protein Complement C3 Crossmatch 07/07/17 07/08/17 07/08/17 05:59 04:22 04:22 WBC 21.3 H RBC Hgb 8.9 L Hct 27.5 L MCV 71 L MCH 23 L MCHC RDW 35.0 H Plt Count Seg Neuts % (Manual) Lymphocytes % (Manual) Monocytes % (Manual) Seg Neutrophils # Man Lymphocytes # (Manual) Monocytes # (Manual) Eosinophils # (Manual) Lupus Anticoagulant LA PTT Baseline POC ABG pH POC ABG pCO2 POC ABG pO2 Sodium Potassium Chloride Carbon Dioxide 18 L BUN 56 H Creatinine 4.3 H Glucose 110 H POC Glucose Lactic Acid Calcium 8.3 L Phosphorus Magnesium 2.50 H Iron TIBC Transferrin AST C-Reactive Protein Total Protein Albumin Vitamin B12 PTH Intact Urine WBC (Auto) Urine Creatinine Urine Microalbumin Urine Total Protein Complement C3 Crossmatch 07/08/17 07/08/17 07/08/17 04:22 05:40 12:36 WBC RBC Hgb Hct MCV MCH MCHC RDW Plt Count Seg Neuts % (Manual) Lymphocytes % (Manual) Monocytes % (Manual) Seg Neutrophils # Man Lymphocytes # (Manual) Monocytes # (Manual) Eosinophils # (Manual) Lupus Anticoagulant LA PTT Baseline POC ABG pH POC ABG pCO2 POC ABG pO2 158 H Sodium Potassium Chloride Carbon Dioxide BUN Creatinine Glucose POC Glucose 109 H Lactic Acid Calcium Phosphorus 4.80 H Magnesium 2.60 H Iron TIBC Transferrin AST C-Reactive Protein Total Protein Albumin Vitamin B12 PTH Intact Urine WBC (Auto) Urine Creatinine Urine Microalbumin Urine Total Protein Complement C3 Crossmatch 07/09/17 07/09/17 07/09/17 04:30 04:30 04:51 WBC RBC Hgb Hct MCV MCH MCHC RDW Plt Count Seg Neuts % (Manual) Lymphocytes % (Manual) Monocytes % (Manual) Seg Neutrophils # Man Lymphocytes # (Manual) Monocytes # (Manual) Eosinophils # (Manual) Lupus Anticoagulant LA PTT Baseline POC ABG pH 7.522 H POC ABG pCO2 POC ABG pO2 67 L Sodium Potassium 3.2 L D Chloride 96.3 L Carbon Dioxide BUN 60 H Creatinine 3.6 H Glucose 115 H POC Glucose Lactic Acid Calcium Phosphorus 4.80 H Magnesium Iron TIBC Transferrin AST C-Reactive Protein Total Protein Albumin Vitamin B12 PTH Intact Urine WBC (Auto) Urine Creatinine Urine Microalbumin Urine Total Protein Complement C3 Crossmatch 07/09/17 07/09/17 07/09/17 12:26 17:51 23:48 WBC RBC Hgb Hct MCV MCH MCHC RDW Plt Count Seg Neuts % (Manual) Lymphocytes % (Manual) Monocytes % (Manual) Seg Neutrophils # Man Lymphocytes # (Manual) Monocytes # (Manual) Eosinophils # (Manual) Lupus Anticoagulant LA PTT Baseline POC ABG pH POC ABG pCO2 POC ABG pO2 Sodium Potassium Chloride Carbon Dioxide BUN Creatinine Glucose POC Glucose 140 H 152 H 149 H Lactic Acid Calcium Phosphorus Magnesium Iron TIBC Transferrin AST C-Reactive Protein Total Protein Albumin Vitamin B12 PTH Intact Urine WBC (Auto) Urine Creatinine Urine Microalbumin Urine Total Protein Complement C3 Crossmatch 07/10/17 07/10/17 07/10/17 03:33 05:30 05:30 WBC 24.0 H RBC Hgb 9.0 L Hct 29.3 L MCV 69 L MCH 21 L MCHC RDW 35.9 H Plt Count 451 H Seg Neuts % (Manual) Lymphocytes % (Manual) Monocytes % (Manual) Seg Neutrophils # Man Lymphocytes # (Manual) Monocytes # (Manual) Eosinophils # (Manual) Lupus Anticoagulant LA PTT Baseline POC ABG pH 7.593 H POC ABG pCO2 34.7 L POC ABG pO2 73 L Sodium Potassium Chloride 96.8 L Carbon Dioxide 31 H BUN 61 H Creatinine 2.9 H Glucose 120 H POC Glucose Lactic Acid Calcium Phosphorus 5.20 H Magnesium Iron TIBC Transferrin AST C-Reactive Protein Total Protein Albumin Vitamin B12 PTH Intact Urine WBC (Auto) Urine Creatinine Urine Microalbumin Urine Total Protein Complement C3 Crossmatch 07/10/17 07/10/17 07/10/17 12:19 17:59 23:51 WBC RBC Hgb Hct MCV MCH MCHC RDW Plt Count Seg Neuts % (Manual) Lymphocytes % (Manual) Monocytes % (Manual) Seg Neutrophils # Man Lymphocytes # (Manual) Monocytes # (Manual) Eosinophils # (Manual) Lupus Anticoagulant LA PTT Baseline POC ABG pH POC ABG pCO2 POC ABG pO2 Sodium Potassium Chloride Carbon Dioxide BUN Creatinine Glucose POC Glucose 143 H 147 H 139 H Lactic Acid Calcium Phosphorus Magnesium Iron TIBC Transferrin AST C-Reactive Protein Total Protein Albumin Vitamin B12 PTH Intact Urine WBC (Auto) Urine Creatinine Urine Microalbumin Urine Total Protein Complement C3 Crossmatch 07/11/17 07/11/17 07/11/17 06:30 06:30 06:30 WBC 20.2 H RBC Hgb 8.4 L Hct 26.0 L MCV 71 L MCH 23 L MCHC RDW 35.6 H Plt Count 469 H Seg Neuts % (Manual) Lymphocytes % (Manual) Monocytes % (Manual) Seg Neutrophils # Man Lymphocytes # (Manual) Monocytes # (Manual) Eosinophils # (Manual) Lupus Anticoagulant LA PTT Baseline POC ABG pH POC ABG pCO2 POC ABG pO2 Sodium Potassium Chloride Carbon Dioxide 32 H BUN 58 H Creatinine 2.4 H Glucose 111 H POC Glucose Lactic Acid Calcium Phosphorus 6.10 H Magnesium 1.60 L Iron TIBC Transferrin AST C-Reactive Protein Total Protein Albumin Vitamin B12 PTH Intact Urine WBC (Auto) Urine Creatinine Urine Microalbumin Urine Total Protein Complement C3 Crossmatch 07/11/17 07/11/17 07/11/17 08:54 12:47 17:33 WBC RBC Hgb Hct MCV MCH MCHC RDW Plt Count Seg Neuts % (Manual) Lymphocytes % (Manual) Monocytes % (Manual) Seg Neutrophils # Man Lymphocytes # (Manual) Monocytes # (Manual) Eosinophils # (Manual) Lupus Anticoagulant LA PTT Baseline POC ABG pH 7.485 H POC ABG pCO2 POC ABG pO2 Sodium Potassium Chloride Carbon Dioxide BUN Creatinine Glucose POC Glucose 168 H 151 H Lactic Acid Calcium Phosphorus Magnesium Iron TIBC Transferrin AST C-Reactive Protein Total Protein Albumin Vitamin B12 PTH Intact Urine WBC (Auto) Urine Creatinine Urine Microalbumin Urine Total Protein Complement C3 Crossmatch 07/11/17 07/12/17 07/12/17 23:52 05:39 06:25 WBC RBC Hgb Hct MCV MCH MCHC RDW Plt Count Seg Neuts % (Manual) Lymphocytes % (Manual) Monocytes % (Manual) Seg Neutrophils # Man Lymphocytes # (Manual) Monocytes # (Manual) Eosinophils # (Manual) Lupus Anticoagulant LA PTT Baseline POC ABG pH POC ABG pCO2 POC ABG pO2 Sodium Potassium Chloride Carbon Dioxide BUN 43 H Creatinine 1.8 H Glucose 138 H POC Glucose 156 H 146 H Lactic Acid Calcium Phosphorus 5.90 H Magnesium Iron TIBC Transferrin AST C-Reactive Protein Total Protein Albumin Vitamin B12 PTH Intact Urine WBC (Auto) Urine Creatinine Urine Microalbumin Urine Total Protein Complement C3 Crossmatch 07/12/17 07/12/17 07/12/17 11:46 12:14 17:01 WBC RBC Hgb Hct MCV MCH MCHC RDW Plt Count Seg Neuts % (Manual) Lymphocytes % (Manual) Monocytes % (Manual) Seg Neutrophils # Man Lymphocytes # (Manual) Monocytes # (Manual) Eosinophils # (Manual) Lupus Anticoagulant LA PTT Baseline POC ABG pH 7.477 H POC ABG pCO2 POC ABG pO2 Sodium Potassium Chloride Carbon Dioxide BUN Creatinine Glucose POC Glucose 156 H Lactic Acid Calcium Phosphorus Magnesium Iron TIBC Transferrin AST C-Reactive Protein 10.30 H Total Protein Albumin Vitamin B12 PTH Intact Urine WBC (Auto) Urine Creatinine Urine Microalbumin Urine Total Protein Complement C3 Crossmatch 07/12/17 07/12/17 07/13/17 18:03 23:47 05:53 WBC RBC Hgb Hct MCV MCH MCHC RDW Plt Count Seg Neuts % (Manual) Lymphocytes % (Manual) Monocytes % (Manual) Seg Neutrophils # Man Lymphocytes # (Manual) Monocytes # (Manual) Eosinophils # (Manual) Lupus Anticoagulant LA PTT Baseline POC ABG pH POC ABG pCO2 POC ABG pO2 Sodium Potassium Chloride Carbon Dioxide BUN Creatinine Glucose POC Glucose 140 H 158 H 137 H Lactic Acid Calcium Phosphorus Magnesium Iron TIBC Transferrin AST C-Reactive Protein Total Protein Albumin Vitamin B12 PTH Intact Urine WBC (Auto) Urine Creatinine Urine Microalbumin Urine Total Protein Complement C3 Crossmatch 07/13/17 07/13/17 07/13/17 06:15 08:26 10:43 WBC 18.3 H RBC 3.35 L Hgb 7.6 L Hct 24.4 L MCV 73 L MCH 23 L MCHC RDW 35.3 H Plt Count 520 H Seg Neuts % (Manual) 81.0 H Lymphocytes % (Manual) 12.0 L Monocytes % (Manual) Seg Neutrophils # Man 14.8 H Lymphocytes # (Manual) Monocytes # (Manual) Eosinophils # (Manual) 0.7 H Lupus Anticoagulant LA PTT Baseline POC ABG pH 7.459 H POC ABG pCO2 POC ABG pO2 Sodium 149 H Potassium Chloride Carbon Dioxide BUN 31 H Creatinine 1.3 H Glucose 112 H POC Glucose Lactic Acid Calcium Phosphorus 5.10 H Magnesium 1.60 L Iron TIBC Transferrin AST C-Reactive Protein Total Protein Albumin Vitamin B12 PTH Intact Urine WBC (Auto) Urine Creatinine Urine Microalbumin Urine Total Protein Complement C3 Crossmatch 07/13/17 07/13/17 07/14/17 12:16 17:38 00:16 WBC RBC Hgb Hct MCV MCH MCHC RDW Plt Count Seg Neuts % (Manual) Lymphocytes % (Manual) Monocytes % (Manual) Seg Neutrophils # Man Lymphocytes # (Manual) Monocytes # (Manual) Eosinophils # (Manual) Lupus Anticoagulant LA PTT Baseline POC ABG pH POC ABG pCO2 POC ABG pO2 Sodium Potassium Chloride Carbon Dioxide BUN Creatinine Glucose POC Glucose 141 H 144 H 152 H Lactic Acid Calcium Phosphorus Magnesium Iron TIBC Transferrin AST C-Reactive Protein Total Protein Albumin Vitamin B12 PTH Intact Urine WBC (Auto) Urine Creatinine Urine Microalbumin Urine Total Protein Complement C3 Crossmatch 07/14/17 07/14/17 07/14/17 06:11 09:35 12:52 WBC RBC Hgb Hct MCV MCH MCHC RDW Plt Count Seg Neuts % (Manual) Lymphocytes % (Manual) Monocytes % (Manual) Seg Neutrophils # Man Lymphocytes # (Manual) Monocytes # (Manual) Eosinophils # (Manual) Lupus Anticoagulant LA PTT Baseline POC ABG pH POC ABG pCO2 POC ABG pO2 Sodium Potassium 3.5 L Chloride Carbon Dioxide BUN 21 H Creatinine Glucose 139 H POC Glucose 138 H 154 H Lactic Acid Calcium Phosphorus Magnesium 1.40 L Iron TIBC Transferrin AST 42 H C-Reactive Protein Total Protein 6.1 L Albumin 2.6 L Vitamin B12 PTH Intact Urine WBC (Auto) Urine Creatinine Urine Microalbumin Urine Total Protein Complement C3 Crossmatch 07/14/17 07/15/17 07/15/17 17:17 00:56 06:21 WBC RBC Hgb Hct MCV MCH MCHC RDW Plt Count Seg Neuts % (Manual) Lymphocytes % (Manual) Monocytes % (Manual) Seg Neutrophils # Man Lymphocytes # (Manual) Monocytes # (Manual) Eosinophils # (Manual) Lupus Anticoagulant LA PTT Baseline POC ABG pH POC ABG pCO2 POC ABG pO2 Sodium Potassium Chloride Carbon Dioxide BUN Creatinine Glucose POC Glucose 133 H 144 H 137 H Lactic Acid Calcium Phosphorus Magnesium Iron TIBC Transferrin AST C-Reactive Protein Total Protein Albumin Vitamin B12 PTH Intact Urine WBC (Auto) Urine Creatinine Urine Microalbumin Urine Total Protein Complement C3 Crossmatch 07/15/17 07/15/17 07/15/17 11:49 16:49 22:19 WBC RBC Hgb Hct MCV MCH MCHC RDW Plt Count Seg Neuts % (Manual) Lymphocytes % (Manual) Monocytes % (Manual) Seg Neutrophils # Man Lymphocytes # (Manual) Monocytes # (Manual) Eosinophils # (Manual) Lupus Anticoagulant LA PTT Baseline POC ABG pH POC ABG pCO2 POC ABG pO2 Sodium Potassium Chloride Carbon Dioxide BUN Creatinine Glucose POC Glucose 145 H 141 H 136 H Lactic Acid Calcium Phosphorus Magnesium Iron TIBC Transferrin AST C-Reactive Protein Total Protein Albumin Vitamin B12 PTH Intact Urine WBC (Auto) Urine Creatinine Urine Microalbumin Urine Total Protein Complement C3 Crossmatch 07/16/17 07/16/17 07/16/17 05:24 07:07 16:52 WBC RBC Hgb Hct MCV MCH MCHC RDW Plt Count Seg Neuts % (Manual) Lymphocytes % (Manual) Monocytes % (Manual) Seg Neutrophils # Man Lymphocytes # (Manual) Monocytes # (Manual) Eosinophils # (Manual) Lupus Anticoagulant LA PTT Baseline POC ABG pH POC ABG pCO2 POC ABG pO2 Sodium Potassium Chloride 107.1 H Carbon Dioxide 20 L BUN 18 H Creatinine Glucose 125 H POC Glucose 147 H 128 H Lactic Acid Calcium 8.2 L Phosphorus Magnesium Iron TIBC Transferrin AST C-Reactive Protein Total Protein Albumin Vitamin B12 PTH Intact Urine WBC (Auto) Urine Creatinine Urine Microalbumin Urine Total Protein Complement C3 Crossmatch 07/16/17 07/17/17 07/17/17 22:12 06:08 07:00 WBC RBC Hgb Hct MCV MCH MCHC RDW Plt Count Seg Neuts % (Manual) Lymphocytes % (Manual) Monocytes % (Manual) Seg Neutrophils # Man Lymphocytes # (Manual) Monocytes # (Manual) Eosinophils # (Manual) Lupus Anticoagulant LA PTT Baseline POC ABG pH POC ABG pCO2 POC ABG pO2 Sodium Potassium Chloride Carbon Dioxide 19 L BUN Creatinine Glucose 110 H POC Glucose 117 H 131 H Lactic Acid Calcium Phosphorus Magnesium Iron TIBC Transferrin AST C-Reactive Protein Total Protein Albumin Vitamin B12 PTH Intact Urine WBC (Auto) Urine Creatinine Urine Microalbumin Urine Total Protein Complement C3 Crossmatch 07/17/17 07/17/17 07/17/17 12:07 12:30 17:47 WBC 13.8 H RBC 3.15 L Hgb 7.2 L Hct 23.3 L MCV 74 L MCH 23 L MCHC RDW 34.7 H Plt Count 514 H Seg Neuts % (Manual) Lymphocytes % (Manual) Monocytes % (Manual) Seg Neutrophils # Man Lymphocytes # (Manual) Monocytes # (Manual) Eosinophils # (Manual) Lupus Anticoagulant LA PTT Baseline POC ABG pH POC ABG pCO2 POC ABG pO2 Sodium Potassium Chloride Carbon Dioxide BUN Creatinine Glucose POC Glucose 149 H 106 H Lactic Acid Calcium Phosphorus Magnesium Iron TIBC Transferrin AST C-Reactive Protein Total Protein Albumin Vitamin B12 PTH Intact Urine WBC (Auto) Urine Creatinine Urine Microalbumin Urine Total Protein Complement C3 Crossmatch 07/18/17 07/18/17 07/18/17 06:32 06:50 09:10 WBC RBC Hgb Hct MCV MCH MCHC RDW Plt Count Seg Neuts % (Manual) Lymphocytes % (Manual) Monocytes % (Manual) Seg Neutrophils # Man Lymphocytes # (Manual) Monocytes # (Manual) Eosinophils # (Manual) Lupus Anticoagulant LA PTT Baseline POC ABG pH POC ABG pCO2 POC ABG pO2 Sodium 132 L D Potassium 5.8 H Chloride 95.0 L Carbon Dioxide BUN Creatinine Glucose 121 H POC Glucose 148 H Lactic Acid Calcium 8.1 L Phosphorus 5.70 H D 4.60 H Magnesium 2.90 H Iron TIBC Transferrin AST C-Reactive Protein Total Protein Albumin Vitamin B12 PTH Intact Urine WBC (Auto) Urine Creatinine Urine Microalbumin Urine Total Protein Complement C3 Crossmatch 07/18/17 07/18/17 07/18/17 11:08 16:03 22:05 WBC RBC Hgb Hct MCV MCH MCHC RDW Plt Count Seg Neuts % (Manual) Lymphocytes % (Manual) Monocytes % (Manual) Seg Neutrophils # Man Lymphocytes # (Manual) Monocytes # (Manual) Eosinophils # (Manual) Lupus Anticoagulant LA PTT Baseline POC ABG pH POC ABG pCO2 POC ABG pO2 Sodium Potassium Chloride Carbon Dioxide BUN Creatinine Glucose POC Glucose 151 H 142 H 147 H Lactic Acid Calcium Phosphorus Magnesium Iron TIBC Transferrin AST C-Reactive Protein Total Protein Albumin Vitamin B12 PTH Intact Urine WBC (Auto) Urine Creatinine Urine Microalbumin Urine Total Protein Complement C3 Crossmatch 07/19/17 07/19/17 07/19/17 05:54 06:05 06:05 WBC RBC Hgb Hct MCV MCH MCHC RDW Plt Count Seg Neuts % (Manual) Lymphocytes % (Manual) Monocytes % (Manual) Seg Neutrophils # Man Lymphocytes # (Manual) Monocytes # (Manual) Eosinophils # (Manual) Lupus Anticoagulant LA PTT Baseline POC ABG pH POC ABG pCO2 POC ABG pO2 Sodium Potassium Chloride Carbon Dioxide BUN Creatinine Glucose 116 H POC Glucose 138 H Lactic Acid Calcium Phosphorus Magnesium Iron 34 L TIBC Transferrin AST C-Reactive Protein Total Protein Albumin Vitamin B12 1373 H PTH Intact Urine WBC (Auto) Urine Creatinine Urine Microalbumin Urine Total Protein Complement C3 Crossmatch 07/19/17 07/19/17 07/20/17 11:27 21:18 06:10 WBC RBC Hgb Hct MCV MCH MCHC RDW Plt Count Seg Neuts % (Manual) Lymphocytes % (Manual) Monocytes % (Manual) Seg Neutrophils # Man Lymphocytes # (Manual) Monocytes # (Manual) Eosinophils # (Manual) Lupus Anticoagulant LA PTT Baseline POC ABG pH POC ABG pCO2 POC ABG pO2 Sodium 135 L Potassium Chloride Carbon Dioxide BUN 18 H Creatinine Glucose 106 H POC Glucose 135 H 134 H Lactic Acid Calcium Phosphorus Magnesium Iron TIBC Transferrin AST C-Reactive Protein Total Protein Albumin Vitamin B12 PTH Intact Urine WBC (Auto) Urine Creatinine Urine Microalbumin Urine Total Protein Complement C3 Crossmatch 07/20/17 07/20/17 07/20/17 06:22 11:54 12:30 WBC RBC 3.09 L Hgb 7.4 L Hct 23.2 L MCV 75 L MCH 24 L MCHC RDW 33.2 H Plt Count 523 H Seg Neuts % (Manual) 74.0 H Lymphocytes % (Manual) Monocytes % (Manual) 9.0 H Seg Neutrophils # Man Lymphocytes # (Manual) Monocytes # (Manual) 0.9 H Eosinophils # (Manual) Lupus Anticoagulant LA PTT Baseline POC ABG pH POC ABG pCO2 POC ABG pO2 Sodium Potassium Chloride Carbon Dioxide BUN Creatinine Glucose POC Glucose 141 H 152 H Lactic Acid Calcium Phosphorus Magnesium Iron TIBC Transferrin AST C-Reactive Protein Total Protein Albumin Vitamin B12 PTH Intact Urine WBC (Auto) Urine Creatinine Urine Microalbumin Urine Total Protein Complement C3 Crossmatch 07/20/17 07/21/17 07/21/17 17:33 05:36 06:00 WBC RBC Hgb Hct MCV MCH MCHC RDW Plt Count Seg Neuts % (Manual) Lymphocytes % (Manual) Monocytes % (Manual) Seg Neutrophils # Man Lymphocytes # (Manual) Monocytes # (Manual) Eosinophils # (Manual) Lupus Anticoagulant LA PTT Baseline POC ABG pH POC ABG pCO2 POC ABG pO2 Sodium Potassium Chloride 97.6 L Carbon Dioxide BUN 18 H Creatinine Glucose 129 H POC Glucose 134 H 138 H Lactic Acid Calcium Phosphorus Magnesium Iron TIBC Transferrin AST C-Reactive Protein Total Protein Albumin Vitamin B12 PTH Intact Urine WBC (Auto) Urine Creatinine Urine Microalbumin Urine Total Protein Complement C3 Crossmatch 07/21/17 07/21/17 07/21/17 12:15 15:15 16:56 WBC RBC Hgb Hct MCV MCH MCHC RDW Plt Count Seg Neuts % (Manual) Lymphocytes % (Manual) Monocytes % (Manual) Seg Neutrophils # Man Lymphocytes # (Manual) Monocytes # (Manual) Eosinophils # (Manual) Lupus Anticoagulant LA PTT Baseline POC ABG pH POC ABG pCO2 POC ABG pO2 Sodium Potassium Chloride Carbon Dioxide BUN Creatinine Glucose POC Glucose 142 H 134 H Lactic Acid Calcium Phosphorus Magnesium Iron TIBC Transferrin AST C-Reactive Protein Total Protein Albumin Vitamin B12 PTH Intact Urine WBC (Auto) Urine Creatinine Urine Microalbumin Urine Total Protein Complement C3 Crossmatch See Detail 07/22/17 07/22/17 07/22/17 06:13 07:40 07:40 WBC RBC Hgb 9.6 L Hct 28.0 L MCV 76 L MCH 26 L MCHC RDW 30.2 H Plt Count 459 H Seg Neuts % (Manual) Lymphocytes % (Manual) Monocytes % (Manual) Seg Neutrophils # Man Lymphocytes # (Manual) Monocytes # (Manual) Eosinophils # (Manual) Lupus Anticoagulant LA PTT Baseline POC ABG pH POC ABG pCO2 POC ABG pO2 Sodium 135 L Potassium Chloride Carbon Dioxide BUN 20 H Creatinine Glucose POC Glucose 132 H Lactic Acid Calcium Phosphorus Magnesium Iron TIBC Transferrin AST C-Reactive Protein Total Protein Albumin Vitamin B12 PTH Intact Urine WBC (Auto) Urine Creatinine Urine Microalbumin Urine Total Protein Complement C3 Crossmatch 07/22/17 12:38 WBC RBC Hgb Hct MCV MCH MCHC RDW Plt Count Seg Neuts % (Manual) Lymphocytes % (Manual) Monocytes % (Manual) Seg Neutrophils # Man Lymphocytes # (Manual) Monocytes # (Manual) Eosinophils # (Manual) Lupus Anticoagulant LA PTT Baseline POC ABG pH POC ABG pCO2 POC ABG pO2 Sodium Potassium Chloride Carbon Dioxide BUN Creatinine Glucose POC Glucose 136 H Lactic Acid Calcium Phosphorus Magnesium Iron TIBC Transferrin AST C-Reactive Protein Total Protein Albumin Vitamin B12 PTH Intact Urine WBC (Auto) Urine Creatinine Urine Microalbumin Urine Total Protein Complement C3 Crossmatch Allied health notes reviewed: nursing
[2017-07-22] MEDS: PERCOCET 5/325 PO PRN ×2 (18:51→23:19)
[2017-07-22] MEDS ORDERED: TPN ADULT 2,016 ML IV SCH (20:00)
[2017-07-23] MEDS: MORPHINE IV PRN ×4 (05:17→20:51)
[2017-07-23 05:57] LABS: BUN/Creatinine Ratio 33; Blood Urea Nitrogen 20 mg/dL (7-17); Calcium 8.9 mg/dL (8.4-10.2); Hemolysis Index 7
[2017-07-23] MEDS: HEPARIN SUB-Q SCH ×3 (06:48→21:14)
--- NOTE | 2017-07-23 07:39 | Progress Note ---
Assessment and Plan 42 yo F with hx of HTN noncompliance presented to hospital with acute onset abdominal pain, n/v, diarrhea. ON HD 1 her WBC elevated to the 40s from 12. CT A /P showed ileus vs enterocolitis. She wa sobserved for 24 hours but her abdominal pain worsened and exam was concerning for peritonitis and surgical abdomen. She was taken to the OR for Diagnostic laparoscopy, converted to exploratory laparotomy, small bowel resection, right hemicolectomy. 1. Severe Sepsis due to gangrenous bowel; s/p removal of near complete small intestine; lifelong TPN for nutrition, completed abx per ID 2. EMMA secondary to vasomotor nephropathy with underlying ATN; resolved 3. Peritoneal irritation due to infected bowel, resolved 4. Severe Anemia, Transfuse as need, for far 5 units transfused 5. Ischemic/Gangrenous Bowel, s/p resection, on TPN lifelong 6. Worsening luekocytosis, from sepsis, resolved 8. Hypertensive urgency-resolved 9. Menorraghia secondary to Fibroids 10. Etoh use disorder, now stable, no sign of withdrawl 11. Right liver lesion ?Hemangioma 12. Multiple electrolyte abnormalities, repleted 13. Hypothermia from sepsis-Resolved 14. Cocain abuse per hx. Not mentioned on admission. Only alcohol which was minimized. 15. 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 Acute respiratory failure on MV >96 hours; extubated 07/13, resolved 17. Positive Lupus anticoagulant, consulted heamatology and recommended to f/u outpt case dw CM; she has no paysource and needs to be dc on TPN, awaiting insurance application Hospitalist Physical General appearance: Present: no acute distress - EENT Eyes: Present: PERRL ENT: clear oral mucosa - Neck Neck: Present: supple - Respiratory Respiratory effort: normal Respiratory: bilateral: CTA - Cardiovascular Rhythm: regular Heart Sounds: Present: S1 & S2 - Extremities Extremities: no ischemia Peripheral Pulses: within normal limits - Abdominal General gastrointestinal: soft, other (post surgical changes) - Integumentary Integumentary: Present: clear, warm, dry - Psychiatric Psychiatric: cooperative - Neurologic Neurologic: moves all extremities Subjective Date of service: 07/22/17 Principal diagnosis: Post-Op Resp Failure on MVS; Ischemic Bowel s/p Ex-Lap; EMMA Interval history: Patient seen on examined now placed on low carb diet for comfort measure Objective - Constitutional Vitals: Vital Signs - 12hr 07/22/17 07/22/17 07/22/17 23:00 23:07 23:08 Temperature 98.6 F Pulse Rate 63 63 63 Respiratory 20 Rate Blood Pressure 144/71 144/71 Blood Pressure 144/71 [Right] O2 Sat by Pulse 99 Oximetry 07/22/17 07/22/17 07/23/17 23:09 23:56 06:59 Temperature 98.7 F 98.4 F Pulse Rate 63 73 63 Respiratory 16 20 Rate Blood Pressure 144/71 127/66 Blood Pressure 116/57 [Right] O2 Sat by Pulse 100 98 Oximetry - Labs CBC & Chem 7: 07/22/17 07:40 07/23/17 05:15 Labs: Abnormal lab results 07/22/17 07/22/17 07/22/17 Range/Units 07:40 07:40 12:38 Hgb 9.6 L (10.1-14.3) gm/dl Hct 28.0 L (30.3-42.9) % MCV 76 L (79-97) fl MCH 26 L (28-32) pg RDW 30.2 H (13.2-15.2) % Plt Count 459 H (140-440) K/mm3 Sodium 135 L (137-145) mmol/L BUN 20 H (7-17) mg/dL Creatinine (0.7-1.2) mg/dL Glucose (65-100) mg/dL POC Glucose 136 H (70-105) 07/22/17 07/22/17 07/23/17 Range/Units 15:41 21:39 05:15 Hgb (10.1-14.3) gm/dl Hct (30.3-42.9) % MCV (79-97) fl MCH (28-32) pg RDW (13.2-15.2) % Plt Count (140-440) K/mm3 Sodium (137-145) mmol/L BUN 20 H (7-17) mg/dL Creatinine 0.6 L (0.7-1.2) mg/dL Glucose 111 H (65-100) mg/dL POC Glucose 117 H 128 H (70-105) 07/23/17 Range/Units 05:58 Hgb (10.1-14.3) gm/dl Hct (30.3-42.9) % MCV (79-97) fl MCH (28-32) pg RDW (13.2-15.2) % Plt Count (140-440) K/mm3 Sodium (137-145) mmol/L BUN (7-17) mg/dL Creatinine (0.7-1.2) mg/dL Glucose (65-100) mg/dL POC Glucose 141 H (70-105)
[2017-07-23] MEDS: PEPCID PO SCH ×2 (10:04→21:13)
[2017-07-23] MEDS: DIOVAN PO SCH ×2 (10:04→21:12)
[2017-07-23] MEDS: VIBRAMYCIN PO SCH ×2 (10:05→21:13)
[2017-07-23] MEDS: COREG PO SCH ×2 (10:05→21:13)
[2017-07-23] MEDS: NORVASC PO SCH (10:05)
--- NOTE | 2017-07-23 10:47 | Progress Note ---
Assessment and Plan - Patient Problems (1) Ischemia, bowel Current Visit: Yes Status: Acute Plan to address problem: Pt stable. s/p enteroenterostomy and closure of abdominal wall - 5/7 - POD#14. - Advanced to consistent carbo diet (for comfort). Have given her information on diet effects for patients with short gut syndrome. Seems to be tolerating diet. Discussed with Dr. Saba and patient. Will try 1 week off from TPN to assess her ability to tolerate a diet and maintain her prealbumin level. Will order baseline level tomorrow. Will ask hospitalist team to managing TPN hold for 1 week after current bag finished. - Incision looks good. No clinical signs to suggest anastomotic leak - ok to plan disposition from my standpoint. Please call with questions. Will follow peripherally. Subjective Date of service: 07/23/17 Patient Reports: Positive: no new complaints, other (Overall, tolerating small amount of food. Bowel movements are formed. Had 3 yesterday.) Objective Vital Signs - 12hr 07/22/17 07/22/17 07/22/17 23:00 23:07 23:08 Temperature 98.6 F Pulse Rate 63 63 63 Respiratory 20 Rate Blood Pressure 144/71 144/71 Blood Pressure 144/71 [Right] O2 Sat by Pulse 99 Oximetry 07/22/17 07/22/17 07/23/17 23:09 23:56 04:39 Temperature 98.7 F 98.4 F Pulse Rate 63 73 63 Respiratory 16 20 Rate Blood Pressure 144/71 127/66 147/118 Blood Pressure [Right] O2 Sat by Pulse 100 97 Oximetry 07/23/17 07/23/17 07/23/17 06:59 07:49 10:04 Temperature 98.4 F 99.1 F Pulse Rate 63 74 Respiratory 20 18 Rate Blood Pressure 117/66 117/66 Blood Pressure 116/57 [Right] O2 Sat by Pulse 98 100 Oximetry 07/23/17 10:05 Temperature Pulse Rate Respiratory Rate Blood Pressure 117/66 Blood Pressure [Right] O2 Sat by Pulse Oximetry - General physical appearance no distress, no pain, other (Looks great) - Eyes normal occular movement - Respiratory normal expansion, normal respiratory effort - Labs 07/22/17 07:40 07/23/17 05:15 Diabetes panel 07/23/17 Range/Units 05:15 Sodium 137 (137-145) mmol/L Potassium 4.2 (3.6-5.0) mmol/L Chloride 98.6 (98-107) mmol/L Carbon Dioxide 23 (22-30) mmol/L BUN 20 H (7-17) mg/dL Creatinine 0.6 L (0.7-1.2) mg/dL Glucose 111 H (65-100) mg/dL Calcium 8.9 (8.4-10.2) mg/dL Calcium panel 07/23/17 Range/Units 05:15 Calcium 8.9 (8.4-10.2) mg/dL Pituitary panel 07/23/17 Range/Units 05:15 Sodium 137 (137-145) mmol/L Potassium 4.2 (3.6-5.0) mmol/L Chloride 98.6 (98-107) mmol/L Carbon Dioxide 23 (22-30) mmol/L BUN 20 H (7-17) mg/dL Creatinine 0.6 L (0.7-1.2) mg/dL Glucose 111 H (65-100) mg/dL Calcium 8.9 (8.4-10.2) mg/dL Adrenal panel 07/23/17 Range/Units 05:15 Sodium 137 (137-145) mmol/L Potassium 4.2 (3.6-5.0) mmol/L Chloride 98.6 (98-107) mmol/L Carbon Dioxide 23 (22-30) mmol/L BUN 20 H (7-17) mg/dL Creatinine 0.6 L (0.7-1.2) mg/dL Glucose 111 H (65-100) mg/dL Calcium 8.9 (8.4-10.2) mg/dL
[2017-07-23] MEDS: CATAPRES PO SCH ×2 (12:47→21:14)
[2017-07-23] MEDS: PERCOCET 5/325 PO PRN (12:54)
--- NOTE | 2017-07-23 14:13 | Progress Note ---
Assessment and Plan Postoperative respiratory failure, now s/p mechanical ventilatory support Sepsis syndrome (resolving) Ischemic bowel, possibly secondary to embolic event vs related to drug abuse H/O Cocaine use with possibility of arterial spasm. Acute kidney injury. Leukocytosis. Uncontrolled hypertension. CMOP Severe anemia. Drug abuse. Alcohol abuse (CXR with gross cardiomegaly) - continue to advance diet per ST - continue wound carewound care per WCT - aspiration precautions - tobacco cessation counselling stressed at bedside - GI & VTE prophylaxis - bronchodilators prn - continue TPN - will need significant assistance with lifestyle changes and resettlement + drug rehab - supplemental oxygen as needed to keep sats > 90% - PT/OT ... overall improved ...25' Subjective Date of service: 07/23/17 Principal diagnosis: Post-Op Resp Failure on MVS; Ischemic Bowel s/p Ex-Lap; EMMA Interval history: Patient is seen today for: Post-Op Resp Failure on MVS; Ischemic Bowel s/p Ex- Lap; EMMA Seen and examined at bedside; 24hour events reviewed; nursing and respiratory care staff consulted; no adverse overnight events reported to me; resting peacefully in bed; no new issues Objective Vital Signs - 12hr 07/23/17 07/23/17 07/23/17 04:39 06:59 07:49 Temperature 98.4 F 98.4 F 99.1 F Pulse Rate 63 63 74 Respiratory 20 20 18 Rate Blood Pressure 147/118 117/66 Blood Pressure 116/57 [Right] O2 Sat by Pulse 97 98 100 Oximetry 07/23/17 07/23/17 07/23/17 10:04 10:05 12:35 Temperature 98.4 F Pulse Rate 60 Respiratory 18 Rate Blood Pressure 117/66 117/66 127/62 Blood Pressure [Right] O2 Sat by Pulse 100 Oximetry 07/23/17 12:47 Temperature Pulse Rate Respiratory Rate Blood Pressure 127/62 Blood Pressure [Right] O2 Sat by Pulse Oximetry Constitutional: no acute distress, other (sedated) Eyes: non-icteric ENT: oropharynx moist, other (mallampatti 3) Neck: supple, no lymphadenopathy, other (no thyromegaly) Effort: mildly labored Ascultation: Bilateral: diminished breath sounds (bases), rhonchi Percussion: Bilateral: not dull Cardiovascular: regular rate and rhythm, other (No R/M) Gastrointestinal: hypoactive bowel sounds, soft, non-tender, non-distended, other (no palpable HSM; clean dressing over abdominal incision site) Integumentary: normal Extremities: no cyanosis, no edema, pulses normal, no ischemia or petechiae Neurologic: normal mental status, non-focal exam, pupils equal and round, CN II- XII normal Psychiatric: mood appropriate, affect normal CBC and BMP: 07/26/17 Unknown 07/26/17 Unknown ABG, PT/INR, D-dimer: ABG POC ABG pH 7.459 (7.35-7.45) H 07/13/17 08:26 POC ABG pCO2 40.4 (35-45) 07/13/17 08:26 POC ABG pO2 99 (80-105) 07/13/17 08:26 POC ABG HCO3 28.6 07/13/17 08:26 POC ABG Total CO2 30 07/13/17 08:26 POC ABG O2 Sat 98 07/13/17 08:26 PT/INR, D-dimer PT 12.5 Sec. (12.2-14.9) 07/03/17 06:19 INR 0.89 (0.87-1.13) 07/03/17 06:19 Abnormal lab findings: Abnormal Labs 07/03/17 07/03/17 07/03/17 05:11 05:28 05:28 WBC 12.9 H RBC Hgb 5.6 L* Hct 22.3 L MCV 59 L MCH 15 L MCHC 25 L RDW 33.3 H Plt Count 125 L Seg Neuts % (Manual) 75.0 H Lymphocytes % (Manual) Monocytes % (Manual) Seg Neutrophils # Man 9.7 H Lymphocytes # (Manual) Monocytes # (Manual) Eosinophils # (Manual) Lupus Anticoagulant LA PTT Baseline POC ABG pH POC ABG pCO2 POC ABG pO2 Sodium Potassium 3.0 L Chloride Carbon Dioxide BUN Creatinine 0.6 L Glucose 220 H POC Glucose 188 H Lactic Acid Calcium Phosphorus Magnesium Iron TIBC Transferrin AST C-Reactive Protein Total Protein Albumin Vitamin B12 PTH Intact Urine WBC (Auto) Urine Creatinine Urine Microalbumin Urine Total Protein Complement C3 Crossmatch 07/03/17 07/03/17 07/03/17 06:19 06:35 08:42 WBC RBC Hgb Hct MCV MCH MCHC RDW Plt Count Seg Neuts % (Manual) Lymphocytes % (Manual) Monocytes % (Manual) Seg Neutrophils # Man Lymphocytes # (Manual) Monocytes # (Manual) Eosinophils # (Manual) Lupus Anticoagulant LA PTT Baseline POC ABG pH POC ABG pCO2 POC ABG pO2 Sodium Potassium Chloride Carbon Dioxide BUN Creatinine Glucose POC Glucose Lactic Acid 2.50 H* 2.20 H* Calcium Phosphorus Magnesium Iron TIBC Transferrin AST C-Reactive Protein Total Protein Albumin Vitamin B12 PTH Intact Urine WBC (Auto) Urine Creatinine Urine Microalbumin Urine Total Protein Complement C3 Crossmatch See Detail 07/03/17 07/03/17 07/03/17 09:31 09:31 11:50 WBC RBC Hgb 5.7 L* Hct 22.4 L MCV MCH MCHC RDW Plt Count Seg Neuts % (Manual) Lymphocytes % (Manual) Monocytes % (Manual) Seg Neutrophils # Man Lymphocytes # (Manual) Monocytes # (Manual) Eosinophils # (Manual) Lupus Anticoagulant LA PTT Baseline POC ABG pH POC ABG pCO2 POC ABG pO2 Sodium Potassium Chloride Carbon Dioxide BUN Creatinine Glucose POC Glucose Lactic Acid 2.80 H* Calcium Phosphorus Magnesium Iron 12 L TIBC 534 H Transferrin AST C-Reactive Protein Total Protein Albumin Vitamin B12 PTH Intact Urine WBC (Auto) Urine Creatinine Urine Microalbumin Urine Total Protein Complement C3 Crossmatch 07/03/17 07/03/17 07/03/17 16:50 16:50 Unknown WBC RBC Hgb 9.7 L D Hct MCV MCH MCHC RDW Plt Count Seg Neuts % (Manual) Lymphocytes % (Manual) Monocytes % (Manual) Seg Neutrophils # Man Lymphocytes # (Manual) Monocytes # (Manual) Eosinophils # (Manual) Lupus Anticoagulant LA PTT Baseline POC ABG pH POC ABG pCO2 POC ABG pO2 Sodium Potassium Chloride Carbon Dioxide BUN Creatinine Glucose POC Glucose Lactic Acid 2.30 H* Calcium Phosphorus Magnesium Iron TIBC Transferrin AST C-Reactive Protein Total Protein Albumin Vitamin B12 PTH Intact Urine WBC (Auto) 18.0 H Urine Creatinine Urine Microalbumin Urine Total Protein Complement C3 Crossmatch 07/04/17 07/04/17 07/04/17 03:57 03:57 04:39 WBC 42.4 H* 42.8 H* RBC Hgb 9.1 L 9.3 L Hct MCV 65 L 66 L MCH 19 L 20 L MCHC 29 L RDW 37.3 H 37.3 H Plt Count 120 L Seg Neuts % (Manual) 93.5 H Lymphocytes % (Manual) 2.5 L Monocytes % (Manual) Seg Neutrophils # Man 40.0 H Lymphocytes # (Manual) 1.1 L Monocytes # (Manual) 1.1 H Eosinophils # (Manual) Lupus Anticoagulant LA PTT Baseline POC ABG pH POC ABG pCO2 POC ABG pO2 Sodium 134 L Potassium 3.5 L Chloride 95.4 L Carbon Dioxide 21 L BUN 6 L Creatinine 0.5 L Glucose 147 H POC Glucose Lactic Acid Calcium 7.9 L Phosphorus Magnesium Iron TIBC Transferrin AST C-Reactive Protein Total Protein Albumin Vitamin B12 PTH Intact Urine WBC (Auto) Urine Creatinine Urine Microalbumin Urine Total Protein Complement C3 Crossmatch 07/04/17 07/04/17 07/05/17 12:09 17:11 08:21 WBC 56.3 H* RBC Hgb 8.3 L Hct 29.1 L MCV 66 L MCH 19 L MCHC 28 L RDW 38.3 H Plt Count Seg Neuts % (Manual) 96.5 H Lymphocytes % (Manual) 1.0 L Monocytes % (Manual) Seg Neutrophils # Man 54.3 H Lymphocytes # (Manual) 0.6 L Monocytes # (Manual) 1.4 H Eosinophils # (Manual) Lupus Anticoagulant LA PTT Baseline POC ABG pH POC ABG pCO2 POC ABG pO2 Sodium Potassium Chloride Carbon Dioxide BUN Creatinine Glucose POC Glucose 169 H 124 H Lactic Acid Calcium Phosphorus Magnesium Iron TIBC Transferrin AST C-Reactive Protein Total Protein Albumin Vitamin B12 PTH Intact Urine WBC (Auto) Urine Creatinine Urine Microalbumin Urine Total Protein Complement C3 Crossmatch 07/05/17 07/05/17 07/05/17 08:21 10:55 22:34 WBC RBC Hgb Hct MCV MCH MCHC RDW Plt Count Seg Neuts % (Manual) Lymphocytes % (Manual) Monocytes % (Manual) Seg Neutrophils # Man Lymphocytes # (Manual) Monocytes # (Manual) Eosinophils # (Manual) Lupus Anticoagulant LA PTT Baseline POC ABG pH 7.185 L POC ABG pCO2 33.8 L POC ABG pO2 Sodium 135 L 135 L Potassium Chloride Carbon Dioxide 18 L 16 L BUN 25 H 27 H Creatinine 2.7 H D 2.9 H Glucose 115 H 119 H POC Glucose Lactic Acid Calcium 7.9 L 8.0 L Phosphorus Magnesium Iron TIBC Transferrin AST C-Reactive Protein Total Protein Albumin Vitamin B12 PTH Intact Urine WBC (Auto) Urine Creatinine Urine Microalbumin Urine Total Protein Complement C3 Crossmatch 07/05/17 07/06/17 07/06/17 Unknown 05:17 07:28 WBC RBC Hgb Hct MCV MCH MCHC RDW Plt Count Seg Neuts % (Manual) Lymphocytes % (Manual) Monocytes % (Manual) Seg Neutrophils # Man Lymphocytes # (Manual) Monocytes # (Manual) Eosinophils # (Manual) Lupus Anticoagulant LA PTT Baseline POC ABG pH POC ABG pCO2 28.0 L POC ABG pO2 193 H Sodium Potassium Chloride 112.6 H Carbon Dioxide 15 L BUN 35 H Creatinine 4.0 H Glucose POC Glucose Lactic Acid Calcium 5.8 L* D Phosphorus Magnesium 1.20 L Iron TIBC Transferrin 148 L AST C-Reactive Protein Total Protein Albumin Vitamin B12 PTH Intact Urine WBC (Auto) Urine Creatinine 237.2 H Urine Microalbumin 39.9 H Urine Total Protein 170 H Complement C3 Crossmatch 07/06/17 07/06/17 07/06/17 07:28 07:28 10:27 WBC 28.9 H RBC Hgb 7.1 L Hct 24.5 L MCV 66 L MCH 19 L MCHC 29 L RDW 38.6 H Plt Count Seg Neuts % (Manual) Lymphocytes % (Manual) Monocytes % (Manual) Seg Neutrophils # Man Lymphocytes # (Manual) Monocytes # (Manual) Eosinophils # (Manual) Lupus Anticoagulant LA PTT Baseline POC ABG pH POC ABG pCO2 POC ABG pO2 Sodium Potassium Chloride Carbon Dioxide BUN Creatinine Glucose POC Glucose Lactic Acid Calcium Phosphorus Magnesium Iron TIBC Transferrin AST C-Reactive Protein Total Protein Albumin Vitamin B12 PTH Intact 285.9 H Urine WBC (Auto) Urine Creatinine Urine Microalbumin Urine Total Protein Complement C3 Crossmatch See Detail 07/06/17 07/06/17 07/06/17 17:55 17:55 18:08 WBC RBC Hgb Hct MCV MCH MCHC RDW Plt Count Seg Neuts % (Manual) Lymphocytes % (Manual) Monocytes % (Manual) Seg Neutrophils # Man Lymphocytes # (Manual) Monocytes # (Manual) Eosinophils # (Manual) Lupus Anticoagulant see below H LA PTT Baseline 47 H POC ABG pH POC ABG pCO2 POC ABG pO2 Sodium Potassium Chloride Carbon Dioxide BUN Creatinine Glucose POC Glucose Lactic Acid Calcium Phosphorus Magnesium Iron TIBC Transferrin AST C-Reactive Protein 26.20 H Total Protein Albumin Vitamin B12 PTH Intact Urine WBC (Auto) Urine Creatinine Urine Microalbumin Urine Total Protein Complement C3 77 L Crossmatch 07/07/17 07/07/17 07/07/17 04:18 05:59 05:59 WBC 24.9 H RBC Hgb 8.8 L Hct 28.0 L MCV 72 L MCH 23 L MCHC RDW 33.3 H Plt Count Seg Neuts % (Manual) Lymphocytes % (Manual) Monocytes % (Manual) Seg Neutrophils # Man Lymphocytes # (Manual) Monocytes # (Manual) Eosinophils # (Manual) Lupus Anticoagulant LA PTT Baseline POC ABG pH POC ABG pCO2 27.5 L POC ABG pO2 61 L Sodium Potassium Chloride Carbon Dioxide 17 L BUN 46 H Creatinine 4.8 H Glucose 103 H POC Glucose Lactic Acid Calcium 7.6 L D Phosphorus Magnesium Iron TIBC Transferrin AST C-Reactive Protein Total Protein Albumin Vitamin B12 PTH Intact Urine WBC (Auto) Urine Creatinine Urine Microalbumin Urine Total Protein Complement C3 Crossmatch 07/07/17 07/08/17 07/08/17 05:59 04:22 04:22 WBC 21.3 H RBC Hgb 8.9 L Hct 27.5 L MCV 71 L MCH 23 L MCHC RDW 35.0 H Plt Count Seg Neuts % (Manual) Lymphocytes % (Manual) Monocytes % (Manual) Seg Neutrophils # Man Lymphocytes # (Manual) Monocytes # (Manual) Eosinophils # (Manual) Lupus Anticoagulant LA PTT Baseline POC ABG pH POC ABG pCO2 POC ABG pO2 Sodium Potassium Chloride Carbon Dioxide 18 L BUN 56 H Creatinine 4.3 H Glucose 110 H POC Glucose Lactic Acid Calcium 8.3 L Phosphorus Magnesium 2.50 H Iron TIBC Transferrin AST C-Reactive Protein Total Protein Albumin Vitamin B12 PTH Intact Urine WBC (Auto) Urine Creatinine Urine Microalbumin Urine Total Protein Complement C3 Crossmatch 07/08/17 07/08/17 07/08/17 04:22 05:40 12:36 WBC RBC Hgb Hct MCV MCH MCHC RDW Plt Count Seg Neuts % (Manual) Lymphocytes % (Manual) Monocytes % (Manual) Seg Neutrophils # Man Lymphocytes # (Manual) Monocytes # (Manual) Eosinophils # (Manual) Lupus Anticoagulant LA PTT Baseline POC ABG pH POC ABG pCO2 POC ABG pO2 158 H Sodium Potassium Chloride Carbon Dioxide BUN Creatinine Glucose POC Glucose 109 H Lactic Acid Calcium Phosphorus 4.80 H Magnesium 2.60 H Iron TIBC Transferrin AST C-Reactive Protein Total Protein Albumin Vitamin B12 PTH Intact Urine WBC (Auto) Urine Creatinine Urine Microalbumin Urine Total Protein Complement C3 Crossmatch 07/09/17 07/09/17 07/09/17 04:30 04:30 04:51 WBC RBC Hgb Hct MCV MCH MCHC RDW Plt Count Seg Neuts % (Manual) Lymphocytes % (Manual) Monocytes % (Manual) Seg Neutrophils # Man Lymphocytes # (Manual) Monocytes # (Manual) Eosinophils # (Manual) Lupus Anticoagulant LA PTT Baseline POC ABG pH 7.522 H POC ABG pCO2 POC ABG pO2 67 L Sodium Potassium 3.2 L D Chloride 96.3 L Carbon Dioxide BUN 60 H Creatinine 3.6 H Glucose 115 H POC Glucose Lactic Acid Calcium Phosphorus 4.80 H Magnesium Iron TIBC Transferrin AST C-Reactive Protein Total Protein Albumin Vitamin B12 PTH Intact Urine WBC (Auto) Urine Creatinine Urine Microalbumin Urine Total Protein Complement C3 Crossmatch 07/09/17 07/09/17 07/09/17 12:26 17:51 23:48 WBC RBC Hgb Hct MCV MCH MCHC RDW Plt Count Seg Neuts % (Manual) Lymphocytes % (Manual) Monocytes % (Manual) Seg Neutrophils # Man Lymphocytes # (Manual) Monocytes # (Manual) Eosinophils # (Manual) Lupus Anticoagulant LA PTT Baseline POC ABG pH POC ABG pCO2 POC ABG pO2 Sodium Potassium Chloride Carbon Dioxide BUN Creatinine Glucose POC Glucose 140 H 152 H 149 H Lactic Acid Calcium Phosphorus Magnesium Iron TIBC Transferrin AST C-Reactive Protein Total Protein Albumin Vitamin B12 PTH Intact Urine WBC (Auto) Urine Creatinine Urine Microalbumin Urine Total Protein Complement C3 Crossmatch 07/10/17 07/10/17 07/10/17 03:33 05:30 05:30 WBC 24.0 H RBC Hgb 9.0 L Hct 29.3 L MCV 69 L MCH 21 L MCHC RDW 35.9 H Plt Count 451 H Seg Neuts % (Manual) Lymphocytes % (Manual) Monocytes % (Manual) Seg Neutrophils # Man Lymphocytes # (Manual) Monocytes # (Manual) Eosinophils # (Manual) Lupus Anticoagulant LA PTT Baseline POC ABG pH 7.593 H POC ABG pCO2 34.7 L POC ABG pO2 73 L Sodium Potassium Chloride 96.8 L Carbon Dioxide 31 H BUN 61 H Creatinine 2.9 H Glucose 120 H POC Glucose Lactic Acid Calcium Phosphorus 5.20 H Magnesium Iron TIBC Transferrin AST C-Reactive Protein Total Protein Albumin Vitamin B12 PTH Intact Urine WBC (Auto) Urine Creatinine Urine Microalbumin Urine Total Protein Complement C3 Crossmatch 07/10/17 07/10/17 07/10/17 12:19 17:59 23:51 WBC RBC Hgb Hct MCV MCH MCHC RDW Plt Count Seg Neuts % (Manual) Lymphocytes % (Manual) Monocytes % (Manual) Seg Neutrophils # Man Lymphocytes # (Manual) Monocytes # (Manual) Eosinophils # (Manual) Lupus Anticoagulant LA PTT Baseline POC ABG pH POC ABG pCO2 POC ABG pO2 Sodium Potassium Chloride Carbon Dioxide BUN Creatinine Glucose POC Glucose 143 H 147 H 139 H Lactic Acid Calcium Phosphorus Magnesium Iron TIBC Transferrin AST C-Reactive Protein Total Protein Albumin Vitamin B12 PTH Intact Urine WBC (Auto) Urine Creatinine Urine Microalbumin Urine Total Protein Complement C3 Crossmatch 07/11/17 07/11/17 07/11/17 06:30 06:30 06:30 WBC 20.2 H RBC Hgb 8.4 L Hct 26.0 L MCV 71 L MCH 23 L MCHC RDW 35.6 H Plt Count 469 H Seg Neuts % (Manual) Lymphocytes % (Manual) Monocytes % (Manual) Seg Neutrophils # Man Lymphocytes # (Manual) Monocytes # (Manual) Eosinophils # (Manual) Lupus Anticoagulant LA PTT Baseline POC ABG pH POC ABG pCO2 POC ABG pO2 Sodium Potassium Chloride Carbon Dioxide 32 H BUN 58 H Creatinine 2.4 H Glucose 111 H POC Glucose Lactic Acid Calcium Phosphorus 6.10 H Magnesium 1.60 L Iron TIBC Transferrin AST C-Reactive Protein Total Protein Albumin Vitamin B12 PTH Intact Urine WBC (Auto) Urine Creatinine Urine Microalbumin Urine Total Protein Complement C3 Crossmatch 07/11/17 07/11/17 07/11/17 08:54 12:47 17:33 WBC RBC Hgb Hct MCV MCH MCHC RDW Plt Count Seg Neuts % (Manual) Lymphocytes % (Manual) Monocytes % (Manual) Seg Neutrophils # Man Lymphocytes # (Manual) Monocytes # (Manual) Eosinophils # (Manual) Lupus Anticoagulant LA PTT Baseline POC ABG pH 7.485 H POC ABG pCO2 POC ABG pO2 Sodium Potassium Chloride Carbon Dioxide BUN Creatinine Glucose POC Glucose 168 H 151 H Lactic Acid Calcium Phosphorus Magnesium Iron TIBC Transferrin AST C-Reactive Protein Total Protein Albumin Vitamin B12 PTH Intact Urine WBC (Auto) Urine Creatinine Urine Microalbumin Urine Total Protein Complement C3 Crossmatch 07/11/17 07/12/17 07/12/17 23:52 05:39 06:25 WBC RBC Hgb Hct MCV MCH MCHC RDW Plt Count Seg Neuts % (Manual) Lymphocytes % (Manual) Monocytes % (Manual) Seg Neutrophils # Man Lymphocytes # (Manual) Monocytes # (Manual) Eosinophils # (Manual) Lupus Anticoagulant LA PTT Baseline POC ABG pH POC ABG pCO2 POC ABG pO2 Sodium Potassium Chloride Carbon Dioxide BUN 43 H Creatinine 1.8 H Glucose 138 H POC Glucose 156 H 146 H Lactic Acid Calcium Phosphorus 5.90 H Magnesium Iron TIBC Transferrin AST C-Reactive Protein Total Protein Albumin Vitamin B12 PTH Intact Urine WBC (Auto) Urine Creatinine Urine Microalbumin Urine Total Protein Complement C3 Crossmatch 07/12/17 07/12/17 07/12/17 11:46 12:14 17:01 WBC RBC Hgb Hct MCV MCH MCHC RDW Plt Count Seg Neuts % (Manual) Lymphocytes % (Manual) Monocytes % (Manual) Seg Neutrophils # Man Lymphocytes # (Manual) Monocytes # (Manual) Eosinophils # (Manual) Lupus Anticoagulant LA PTT Baseline POC ABG pH 7.477 H POC ABG pCO2 POC ABG pO2 Sodium Potassium Chloride Carbon Dioxide BUN Creatinine Glucose POC Glucose 156 H Lactic Acid Calcium Phosphorus Magnesium Iron TIBC Transferrin AST C-Reactive Protein 10.30 H Total Protein Albumin Vitamin B12 PTH Intact Urine WBC (Auto) Urine Creatinine Urine Microalbumin Urine Total Protein Complement C3 Crossmatch 07/12/17 07/12/17 07/13/17 18:03 23:47 05:53 WBC RBC Hgb Hct MCV MCH MCHC RDW Plt Count Seg Neuts % (Manual) Lymphocytes % (Manual) Monocytes % (Manual) Seg Neutrophils # Man Lymphocytes # (Manual) Monocytes # (Manual) Eosinophils # (Manual) Lupus Anticoagulant LA PTT Baseline POC ABG pH POC ABG pCO2 POC ABG pO2 Sodium Potassium Chloride Carbon Dioxide BUN Creatinine Glucose POC Glucose 140 H 158 H 137 H Lactic Acid Calcium Phosphorus Magnesium Iron TIBC Transferrin AST C-Reactive Protein Total Protein Albumin Vitamin B12 PTH Intact Urine WBC (Auto) Urine Creatinine Urine Microalbumin Urine Total Protein Complement C3 Crossmatch 07/13/17 07/13/17 07/13/17 06:15 08:26 10:43 WBC 18.3 H RBC 3.35 L Hgb 7.6 L Hct 24.4 L MCV 73 L MCH 23 L MCHC RDW 35.3 H Plt Count 520 H Seg Neuts % (Manual) 81.0 H Lymphocytes % (Manual) 12.0 L Monocytes % (Manual) Seg Neutrophils # Man 14.8 H Lymphocytes # (Manual) Monocytes # (Manual) Eosinophils # (Manual) 0.7 H Lupus Anticoagulant LA PTT Baseline POC ABG pH 7.459 H POC ABG pCO2 POC ABG pO2 Sodium 149 H Potassium Chloride Carbon Dioxide BUN 31 H Creatinine 1.3 H Glucose 112 H POC Glucose Lactic Acid Calcium Phosphorus 5.10 H Magnesium 1.60 L Iron TIBC Transferrin AST C-Reactive Protein Total Protein Albumin Vitamin B12 PTH Intact Urine WBC (Auto) Urine Creatinine Urine Microalbumin Urine Total Protein Complement C3 Crossmatch 07/13/17 07/13/17 07/14/17 12:16 17:38 00:16 WBC RBC Hgb Hct MCV MCH MCHC RDW Plt Count Seg Neuts % (Manual) Lymphocytes % (Manual) Monocytes % (Manual) Seg Neutrophils # Man Lymphocytes # (Manual) Monocytes # (Manual) Eosinophils # (Manual) Lupus Anticoagulant LA PTT Baseline POC ABG pH POC ABG pCO2 POC ABG pO2 Sodium Potassium Chloride Carbon Dioxide BUN Creatinine Glucose POC Glucose 141 H 144 H 152 H Lactic Acid Calcium Phosphorus Magnesium Iron TIBC Transferrin AST C-Reactive Protein Total Protein Albumin Vitamin B12 PTH Intact Urine WBC (Auto) Urine Creatinine Urine Microalbumin Urine Total Protein Complement C3 Crossmatch 07/14/17 07/14/17 07/14/17 06:11 09:35 12:52 WBC RBC Hgb Hct MCV MCH MCHC RDW Plt Count Seg Neuts % (Manual) Lymphocytes % (Manual) Monocytes % (Manual) Seg Neutrophils # Man Lymphocytes # (Manual) Monocytes # (Manual) Eosinophils # (Manual) Lupus Anticoagulant LA PTT Baseline POC ABG pH POC ABG pCO2 POC ABG pO2 Sodium Potassium 3.5 L Chloride Carbon Dioxide BUN 21 H Creatinine Glucose 139 H POC Glucose 138 H 154 H Lactic Acid Calcium Phosphorus Magnesium 1.40 L Iron TIBC Transferrin AST 42 H C-Reactive Protein Total Protein 6.1 L Albumin 2.6 L Vitamin B12 PTH Intact Urine WBC (Auto) Urine Creatinine Urine Microalbumin Urine Total Protein Complement C3 Crossmatch 07/14/17 07/15/17 07/15/17 17:17 00:56 06:21 WBC RBC Hgb Hct MCV MCH MCHC RDW Plt Count Seg Neuts % (Manual) Lymphocytes % (Manual) Monocytes % (Manual) Seg Neutrophils # Man Lymphocytes # (Manual) Monocytes # (Manual) Eosinophils # (Manual) Lupus Anticoagulant LA PTT Baseline POC ABG pH POC ABG pCO2 POC ABG pO2 Sodium Potassium Chloride Carbon Dioxide BUN Creatinine Glucose POC Glucose 133 H 144 H 137 H Lactic Acid Calcium Phosphorus Magnesium Iron TIBC Transferrin AST C-Reactive Protein Total Protein Albumin Vitamin B12 PTH Intact Urine WBC (Auto) Urine Creatinine Urine Microalbumin Urine Total Protein Complement C3 Crossmatch 07/15/17 07/15/17 07/15/17 11:49 16:49 22:19 WBC RBC Hgb Hct MCV MCH MCHC RDW Plt Count Seg Neuts % (Manual) Lymphocytes % (Manual) Monocytes % (Manual) Seg Neutrophils # Man Lymphocytes # (Manual) Monocytes # (Manual) Eosinophils # (Manual) Lupus Anticoagulant LA PTT Baseline POC ABG pH POC ABG pCO2 POC ABG pO2 Sodium Potassium Chloride Carbon Dioxide BUN Creatinine Glucose POC Glucose 145 H 141 H 136 H Lactic Acid Calcium Phosphorus Magnesium Iron TIBC Transferrin AST C-Reactive Protein Total Protein Albumin Vitamin B12 PTH Intact Urine WBC (Auto) Urine Creatinine Urine Microalbumin Urine Total Protein Complement C3 Crossmatch 07/16/17 07/16/17 07/16/17 05:24 07:07 16:52 WBC RBC Hgb Hct MCV MCH MCHC RDW Plt Count Seg Neuts % (Manual) Lymphocytes % (Manual) Monocytes % (Manual) Seg Neutrophils # Man Lymphocytes # (Manual) Monocytes # (Manual) Eosinophils # (Manual) Lupus Anticoagulant LA PTT Baseline POC ABG pH POC ABG pCO2 POC ABG pO2 Sodium Potassium Chloride 107.1 H Carbon Dioxide 20 L BUN 18 H Creatinine Glucose 125 H POC Glucose 147 H 128 H Lactic Acid Calcium 8.2 L Phosphorus Magnesium Iron TIBC Transferrin AST C-Reactive Protein Total Protein Albumin Vitamin B12 PTH Intact Urine WBC (Auto) Urine Creatinine Urine Microalbumin Urine Total Protein Complement C3 Crossmatch 07/16/17 07/17/17 07/17/17 22:12 06:08 07:00 WBC RBC Hgb Hct MCV MCH MCHC RDW Plt Count Seg Neuts % (Manual) Lymphocytes % (Manual) Monocytes % (Manual) Seg Neutrophils # Man Lymphocytes # (Manual) Monocytes # (Manual) Eosinophils # (Manual) Lupus Anticoagulant LA PTT Baseline POC ABG pH POC ABG pCO2 POC ABG pO2 Sodium Potassium Chloride Carbon Dioxide 19 L BUN Creatinine Glucose 110 H POC Glucose 117 H 131 H Lactic Acid Calcium Phosphorus Magnesium Iron TIBC Transferrin AST C-Reactive Protein Total Protein Albumin Vitamin B12 PTH Intact Urine WBC (Auto) Urine Creatinine Urine Microalbumin Urine Total Protein Complement C3 Crossmatch 07/17/17 07/17/17 07/17/17 12:07 12:30 17:47 WBC 13.8 H RBC 3.15 L Hgb 7.2 L Hct 23.3 L MCV 74 L MCH 23 L MCHC RDW 34.7 H Plt Count 514 H Seg Neuts % (Manual) Lymphocytes % (Manual) Monocytes % (Manual) Seg Neutrophils # Man Lymphocytes # (Manual) Monocytes # (Manual) Eosinophils # (Manual) Lupus Anticoagulant LA PTT Baseline POC ABG pH POC ABG pCO2 POC ABG pO2 Sodium Potassium Chloride Carbon Dioxide BUN Creatinine Glucose POC Glucose 149 H 106 H Lactic Acid Calcium Phosphorus Magnesium Iron TIBC Transferrin AST C-Reactive Protein Total Protein Albumin Vitamin B12 PTH Intact Urine WBC (Auto) Urine Creatinine Urine Microalbumin Urine Total Protein Complement C3 Crossmatch 07/18/17 07/18/17 07/18/17 06:32 06:50 09:10 WBC RBC Hgb Hct MCV MCH MCHC RDW Plt Count Seg Neuts % (Manual) Lymphocytes % (Manual) Monocytes % (Manual) Seg Neutrophils # Man Lymphocytes # (Manual) Monocytes # (Manual) Eosinophils # (Manual) Lupus Anticoagulant LA PTT Baseline POC ABG pH POC ABG pCO2 POC ABG pO2 Sodium 132 L D Potassium 5.8 H Chloride 95.0 L Carbon Dioxide BUN Creatinine Glucose 121 H POC Glucose 148 H Lactic Acid Calcium 8.1 L Phosphorus 5.70 H D 4.60 H Magnesium 2.90 H Iron TIBC Transferrin AST C-Reactive Protein Total Protein Albumin Vitamin B12 PTH Intact Urine WBC (Auto) Urine Creatinine Urine Microalbumin Urine Total Protein Complement C3 Crossmatch 07/18/17 07/18/17 07/18/17 11:08 16:03 22:05 WBC RBC Hgb Hct MCV MCH MCHC RDW Plt Count Seg Neuts % (Manual) Lymphocytes % (Manual) Monocytes % (Manual) Seg Neutrophils # Man Lymphocytes # (Manual) Monocytes # (Manual) Eosinophils # (Manual) Lupus Anticoagulant LA PTT Baseline POC ABG pH POC ABG pCO2 POC ABG pO2 Sodium Potassium Chloride Carbon Dioxide BUN Creatinine Glucose POC Glucose 151 H 142 H 147 H Lactic Acid Calcium Phosphorus Magnesium Iron TIBC Transferrin AST C-Reactive Protein Total Protein Albumin Vitamin B12 PTH Intact Urine WBC (Auto) Urine Creatinine Urine Microalbumin Urine Total Protein Complement C3 Crossmatch 07/19/17 07/19/17 07/19/17 05:54 06:05 06:05 WBC RBC Hgb Hct MCV MCH MCHC RDW Plt Count Seg Neuts % (Manual) Lymphocytes % (Manual) Monocytes % (Manual) Seg Neutrophils # Man Lymphocytes # (Manual) Monocytes # (Manual) Eosinophils # (Manual) Lupus Anticoagulant LA PTT Baseline POC ABG pH POC ABG pCO2 POC ABG pO2 Sodium Potassium Chloride Carbon Dioxide BUN Creatinine Glucose 116 H POC Glucose 138 H Lactic Acid Calcium Phosphorus Magnesium Iron 34 L TIBC Transferrin AST C-Reactive Protein Total Protein Albumin Vitamin B12 1373 H PTH Intact Urine WBC (Auto) Urine Creatinine Urine Microalbumin Urine Total Protein Complement C3 Crossmatch 07/19/17 07/19/17 07/20/17 11:27 21:18 06:10 WBC RBC Hgb Hct MCV MCH MCHC RDW Plt Count Seg Neuts % (Manual) Lymphocytes % (Manual) Monocytes % (Manual) Seg Neutrophils # Man Lymphocytes # (Manual) Monocytes # (Manual) Eosinophils # (Manual) Lupus Anticoagulant LA PTT Baseline POC ABG pH POC ABG pCO2 POC ABG pO2 Sodium 135 L Potassium Chloride Carbon Dioxide BUN 18 H Creatinine Glucose 106 H POC Glucose 135 H 134 H Lactic Acid Calcium Phosphorus Magnesium Iron TIBC Transferrin AST C-Reactive Protein Total Protein Albumin Vitamin B12 PTH Intact Urine WBC (Auto) Urine Creatinine Urine Microalbumin Urine Total Protein Complement C3 Crossmatch 07/20/17 07/20/17 07/20/17 06:22 11:54 12:30 WBC RBC 3.09 L Hgb 7.4 L Hct 23.2 L MCV 75 L MCH 24 L MCHC RDW 33.2 H Plt Count 523 H Seg Neuts % (Manual) 74.0 H Lymphocytes % (Manual) Monocytes % (Manual) 9.0 H Seg Neutrophils # Man Lymphocytes # (Manual) Monocytes # (Manual) 0.9 H Eosinophils # (Manual) Lupus Anticoagulant LA PTT Baseline POC ABG pH POC ABG pCO2 POC ABG pO2 Sodium Potassium Chloride Carbon Dioxide BUN Creatinine Glucose POC Glucose 141 H 152 H Lactic Acid Calcium Phosphorus Magnesium Iron TIBC Transferrin AST C-Reactive Protein Total Protein Albumin Vitamin B12 PTH Intact Urine WBC (Auto) Urine Creatinine Urine Microalbumin Urine Total Protein Complement C3 Crossmatch 07/20/17 07/21/17 07/21/17 17:33 05:36 06:00 WBC RBC Hgb Hct MCV MCH MCHC RDW Plt Count Seg Neuts % (Manual) Lymphocytes % (Manual) Monocytes % (Manual) Seg Neutrophils # Man Lymphocytes # (Manual) Monocytes # (Manual) Eosinophils # (Manual) Lupus Anticoagulant LA PTT Baseline POC ABG pH POC ABG pCO2 POC ABG pO2 Sodium Potassium Chloride 97.6 L Carbon Dioxide BUN 18 H Creatinine Glucose 129 H POC Glucose 134 H 138 H Lactic Acid Calcium Phosphorus Magnesium Iron TIBC Transferrin AST C-Reactive Protein Total Protein Albumin Vitamin B12 PTH Intact Urine WBC (Auto) Urine Creatinine Urine Microalbumin Urine Total Protein Complement C3 Crossmatch 07/21/17 07/21/17 07/21/17 12:15 15:15 16:56 WBC RBC Hgb Hct MCV MCH MCHC RDW Plt Count Seg Neuts % (Manual) Lymphocytes % (Manual) Monocytes % (Manual) Seg Neutrophils # Man Lymphocytes # (Manual) Monocytes # (Manual) Eosinophils # (Manual) Lupus Anticoagulant LA PTT Baseline POC ABG pH POC ABG pCO2 POC ABG pO2 Sodium Potassium Chloride Carbon Dioxide BUN Creatinine Glucose POC Glucose 142 H 134 H Lactic Acid Calcium Phosphorus Magnesium Iron TIBC Transferrin AST C-Reactive Protein Total Protein Albumin Vitamin B12 PTH Intact Urine WBC (Auto) Urine Creatinine Urine Microalbumin Urine Total Protein Complement C3 Crossmatch See Detail 07/22/17 07/22/17 07/22/17 06:13 07:40 07:40 WBC RBC Hgb 9.6 L Hct 28.0 L MCV 76 L MCH 26 L MCHC RDW 30.2 H Plt Count 459 H Seg Neuts % (Manual) Lymphocytes % (Manual) Monocytes % (Manual) Seg Neutrophils # Man Lymphocytes # (Manual) Monocytes # (Manual) Eosinophils # (Manual) Lupus Anticoagulant LA PTT Baseline POC ABG pH POC ABG pCO2 POC ABG pO2 Sodium 135 L Potassium Chloride Carbon Dioxide BUN 20 H Creatinine Glucose POC Glucose 132 H Lactic Acid Calcium Phosphorus Magnesium Iron TIBC Transferrin AST C-Reactive Protein Total Protein Albumin Vitamin B12 PTH Intact Urine WBC (Auto) Urine Creatinine Urine Microalbumin Urine Total Protein Complement C3 Crossmatch 07/22/17 07/22/17 07/22/17 12:38 15:41 21:39 WBC RBC Hgb Hct MCV MCH MCHC RDW Plt Count Seg Neuts % (Manual) Lymphocytes % (Manual) Monocytes % (Manual) Seg Neutrophils # Man Lymphocytes # (Manual) Monocytes # (Manual) Eosinophils # (Manual) Lupus Anticoagulant LA PTT Baseline POC ABG pH POC ABG pCO2 POC ABG pO2 Sodium Potassium Chloride Carbon Dioxide BUN Creatinine Glucose POC Glucose 136 H 117 H 128 H Lactic Acid Calcium Phosphorus Magnesium Iron TIBC Transferrin AST C-Reactive Protein Total Protein Albumin Vitamin B12 PTH Intact Urine WBC (Auto) Urine Creatinine Urine Microalbumin Urine Total Protein Complement C3 Crossmatch 07/23/17 07/23/17 07/23/17 05:15 05:58 12:38 WBC RBC Hgb Hct MCV MCH MCHC RDW Plt Count Seg Neuts % (Manual) Lymphocytes % (Manual) Monocytes % (Manual) Seg Neutrophils # Man Lymphocytes # (Manual) Monocytes # (Manual) Eosinophils # (Manual) Lupus Anticoagulant LA PTT Baseline POC ABG pH POC ABG pCO2 POC ABG pO2 Sodium Potassium Chloride Carbon Dioxide BUN 20 H Creatinine 0.6 L Glucose 111 H POC Glucose 141 H 139 H Lactic Acid Calcium Phosphorus Magnesium Iron TIBC Transferrin AST C-Reactive Protein Total Protein Albumin Vitamin B12 PTH Intact Urine WBC (Auto) Urine Creatinine Urine Microalbumin Urine Total Protein Complement C3 Crossmatch Allied health notes reviewed: nursing
--- NOTE | 2017-07-23 19:11 | Progress Note ---
Assessment and Plan 42 yo F with hx of HTN noncompliance presented to hospital with acute onset abdominal pain, n/v, diarrhea. ON HD 1 her WBC elevated to the 40s from 12. CT A /P showed ileus vs enterocolitis. She wa sobserved for 24 hours but her abdominal pain worsened and exam was concerning for peritonitis and surgical abdomen. She was taken to the OR for Diagnostic laparoscopy, converted to exploratory laparotomy, small bowel resection, right hemicolectomy. 1. Severe Sepsis due to gangrenous bowel; s/p removal of near complete small intestine; completed abx per ID 2. EMMA secondary to vasomotor nephropathy with underlying ATN; resolved 3. Peritoneal irritation due to infected bowel, resolved 4. Severe Anemia, Transfuse as need, for far 5 units transfused 5. Ischemic/Gangrenous Bowel, s/p resection, may need TPN lifelong. Surgery placed on low carb diet and plan to hold TPN for a week, if tolerates and then may d/c home w/o TPN. Check prealbumin tomorrow and a week later to compare. But if prealbumin declines and pt develops diarrhea then will need TPN lifelong. 6. Worsening luekocytosis, from sepsis, resolved 8. Hypertensive urgency-resolved 9. Menorraghia secondary to Fibroids 10. Etoh use disorder, now stable, no sign of withdrawl 11. Right liver lesion? Hemangioma, outpt f/u 12. Multiple electrolyte abnormalities, repleted 13. Hypothermia from sepsis-Resolved 14. Cocain abuse per hx. Not mentioned on admission. Only alcohol which was minimized. 15. 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 Acute respiratory failure on MV >96 hours; extubated 07/13, resolved 17. Positive Lupus anticoagulant, consulted heamatology and recommended to f/u outpt case dw CM; she has no paysource and may need to be dc on TPN, awaiting insurance application Hospitalist Physical General appearance: Present: no acute distress - EENT Eyes: Present: PERRL ENT: clear oral mucosa - Neck Neck: Present: supple - Respiratory Respiratory effort: normal Respiratory: bilateral: CTA - Cardiovascular Rhythm: regular Heart Sounds: Present: S1 & S2 - Extremities Extremities: no ischemia Peripheral Pulses: within normal limits - Abdominal General gastrointestinal: soft, other (post surgical changes) - Integumentary Integumentary: Present: clear, warm, dry - Psychiatric Psychiatric: cooperative - Neurologic Neurologic: moves all extremities Subjective Date of service: 07/23/17 Principal diagnosis: Post-Op Resp Failure on MVS; Ischemic Bowel s/p Ex-Lap; EMMA Interval history: Patient seen on examined now placed on low carb diet, not having diarrhea Objective - Constitutional Vitals: Vital Signs - 12hr 07/23/17 07/23/17 07/23/17 07:49 10:04 10:05 Temperature 99.1 F Pulse Rate 74 Respiratory 18 Rate Blood Pressure 117/66 117/66 117/66 O2 Sat by Pulse 100 Oximetry 07/23/17 07/23/17 07/23/17 12:35 12:47 15:38 Temperature 98.4 F 98.8 F Pulse Rate 60 65 Respiratory 18 18 Rate Blood Pressure 127/62 127/62 117/61 O2 Sat by Pulse 100 100 Oximetry - Labs CBC & Chem 7: 07/22/17 07:40 07/23/17 05:15 Labs: Abnormal lab results 07/22/17 07/23/17 07/23/17 Range/Units 21:39 05:15 05:58 BUN 20 H (7-17) mg/dL Creatinine 0.6 L (0.7-1.2) mg/dL Glucose 111 H (65-100) mg/dL POC Glucose 128 H 141 H (70-105) 07/23/17 07/23/17 Range/Units 12:38 18:09 BUN (7-17) mg/dL Creatinine (0.7-1.2) mg/dL Glucose (65-100) mg/dL POC Glucose 139 H 134 H (70-105)
[2017-07-23] MEDS ORDERED: TPN ADULT 2,016 ML IV SCH (20:00)
[2017-07-23] MEDS ORDERED: INTRALIPID 20% 250 ML IV SCH (20:00)
[2017-07-24] MEDS: MORPHINE IV PRN ×4 (03:12→23:20)
[2017-07-24] MEDS: HEPARIN SUB-Q SCH ×3 (06:25→23:22)
[2017-07-24 07:28] LABS: BUN/Creatinine Ratio 30; Blood Urea Nitrogen 18 mg/dL (7-17); Calcium 9.1 mg/dL (8.4-10.2); Hemolysis Index 14
[2017-07-24] MEDS: PEPCID PO SCH ×2 (09:44→23:10)
[2017-07-24] MEDS: DIOVAN PO SCH ×2 (09:45→23:16)
[2017-07-24] MEDS: NORVASC PO SCH (09:45)
[2017-07-24] MEDS: CATAPRES PO SCH ×2 (09:45→23:17)
[2017-07-24] MEDS: VIBRAMYCIN PO SCH ×2 (09:45→23:10)
[2017-07-24] MEDS: COREG PO SCH ×2 (09:46→23:16)
[2017-07-24] MEDS: TRANSDERM-SCOP TD SCH (13:15)
[2017-07-24] MEDS: PERCOCET 5/325 PO PRN (13:22)
--- NOTE | 2017-07-24 17:23 | Progress Note ---
Assessment and Plan Assessment and plan: 42 yo F with hx of HTN noncompliance presented to hospital with acute onset abdominal pain, n/v, diarrhea. CT A/P showed ileus vs enterocolitis. She was observed for 24 hours but her abdominal pain worsened and exam was concerning for peritonitis and surgical abdomen. She was taken to the OR for Diagnostic laparoscopy, converted to exploratory laparotomy, small bowel resection, right hemicolectomy. Severe Sepsis due to gangrenous bowel; s/p removal of near complete small intestine; completed abx per ID EMMA secondary to vasomotor nephropathy with underlying ATN; resolved Peritoneal irritation due to infected bowel, resolved Severe Anemia, Transfuse as need, for far 5 units transfused Ischemic/Gangrenous Bowel, s/p resection, may need TPN lifelong. Surgery placed on low carb diet and plan to hold TPN for a week, if tolerates and then may d/ c home w/o TPN. Check prealbumin tomorrow and a week later to compare. But if prealbumin declines and pt develops diarrhea then will need TPN lifelong. Will dc TPN and monitor Worsening luekocytosis, from sepsis, resolved Hypertensive urgency-resolved Menorraghia secondary to Fibroids Etoh use disorder, now stable, no sign of withdrawl Right liver lesion? Hemangioma, outpt f/u Multiple electrolyte abnormalities, repleted Hypothermia from sepsis-Resolved Cocaine abuse per history Malnutrition. May need lifelong TPN due to near total small bowel resection. Positive Lupus anticoagulant, consulted hematology and recommended to f/u outpt DVT prophylaxis. Heparin Full code status History Interval history: Feels better, Started diet today, mild abdominal upset Hospitalist Physical - Physical exam Narrative exam: General: Not in acute distress, lying in bed HEENT:Normocephalic, atraumatic Neck:supple,no JVD Lungs: Clear to auscultation bilaterally, no crackles, no wheeze Heart:S1 and S2 regular, no murmurs, rubs or gallop Abd: soft, mild tender, no rebound tenderness, surgical wound midline.normal bowel sounds Ext: No edema, no clubbing, no cyanosis Neuro: AAO x 3, moves all extremitiies. - Constitutional Vitals: Temp Pulse Resp BP Pulse Ox 98.7 F 70 20 137/63 100 07/24/17 08:01 07/24/17 08:01 07/24/17 08:01 07/24/17 09:46 07/24/17 08:01 General appearance: Present: no acute distress Results - Labs CBC & Chem 7: 07/22/17 07:40 07/24/17 06:49 Labs: Laboratory Last Values WBC 9.7 K/mm3 (4.5-11.0) 07/22/17 07:40 RBC 3.70 M/mm3 (3.65-5.03) 07/22/17 07:40 Hgb 9.6 gm/dl (10.1-14.3) L 07/22/17 07:40 Hct 28.0 % (30.3-42.9) L 07/22/17 07:40 MCV 76 fl (79-97) L 07/22/17 07:40 MCH 26 pg (28-32) L 07/22/17 07:40 MCHC 34 % (30-34) 07/22/17 07:40 RDW 30.2 % (13.2-15.2) H 07/22/17 07:40 Plt Count 459 K/mm3 (140-440) H 07/22/17 07:40 Lymph % (Auto) [place] 07/20/17 12:30 [place] % (Auto) P[place]older 07/20/17 12:30 Eos % (Auto) [place] 07/20/17 12:30 Baso % (Auto) [place] 07/20/17 12:30 Lymph # [place] 07/20/17 12:30 [place] # P[place]older 07/20/17 12:30 Eos # [place] 07/20/17 12:30 Baso # [place] 07/20/17 12:30 Add Manual Diff Complete 07/20/17 12:30 Total Counted 100 07/20/17 12:30 Seg Neutrophils % [place] 07/20/17 12:30 Seg Neuts % (Manual) 74.0 % (40.0-70.0) H 07/20/17 12:30 Band Neutrophils % 0 % 07/20/17 12:30 Lymphocytes % (Manual) 16.0 % (13.4-35.0) 07/20/17 12:30 Reactive Lymphs % (Man) 0 % 07/20/17 12:30 Monocytes % (Manual) 9.0 % (0.0-7.3) H 07/20/17 12:30 Eosinophils % (Manual) 1.0 % (0.0-4.3) 07/20/17 12:30 Basophils % (Manual) 0 % (0.0-1.8) 07/20/17 12:30 Metamyelocytes % 0 % 07/20/17 12:30 Myelocytes % 0 % 07/20/17 12:30 Promyelocytes % 0 % 07/20/17 12:30 Blast Cells % 0 % 07/20/17 12:30 Nucleated RBC % Not Reportable 07/20/17 12:30 Seg Neutrophils # [place] 07/20/17 12:30 Seg Neutrophils # Man 7.5 K/mm3 (1.8-7.7) 07/20/17 12:30 Band Neutrophils # 0.0 K/mm3 07/20/17 12:30 Lymphocytes # (Manual) 1.6 K/mm3 (1.2-5.4) 07/20/17 12:30 Abs React Lymphs (Man) 0.0 K/mm3 07/20/17 12:30 Monocytes # (Manual) 0.9 K/mm3 (0.0-0.8) H 07/20/17 12:30 Eosinophils # (Manual) 0.1 K/mm3 (0.0-0.4) 07/20/17 12:30 Basophils # (Manual) 0.0 K/mm3 (0.0-0.1) 07/20/17 12:30 Metamyelocytes # 0.0 K/mm3 07/20/17 12:30 Myelocytes # 0.0 K/mm3 07/20/17 12:30 Promyelocytes # 0.0 K/mm3 07/20/17 12:30 Blast Cells # 0.0 K/mm3 07/20/17 12:30 Pathologist Review 07/04/17 04:39 WBC Morphology Not Reportable 07/20/17 12:30 Hypersegmented Neuts Not Reportable 07/20/17 12:30 Hyposegmented Neuts Not Reportable 07/20/17 12:30 Hypogranular Neuts Not Reportable 07/20/17 12:30 Smudge Cells Not Reportable 07/20/17 12:30 Toxic Granulation Not Reportable 07/20/17 12:30 Toxic Vacuolation Not Reportable 07/20/17 12:30 Dohle Bodies Not Reportable 07/20/17 12:30 Pelger-Huet Anomaly Not Reportable 07/20/17 12:30 Irma Rods Not Reportable 07/20/17 12:30 Platelet Estimate Cons 07/20/17 12:30 Clumped Platelets Not Reportable 07/20/17 12:30 Plt Clumps, EDTA Not Reportable 07/20/17 12:30 Large Platelets Few 07/20/17 12:30 Giant Platelets Not Reportable 07/20/17 12:30 Platelet Satelliting Not Reportable 07/20/17 12:30 Plt Morphology Comment Not Reportable 07/20/17 12:30 RBC Morphology Not Reportable 07/20/17 12:30 Dimorphic RBCs Not Reportable 07/20/17 12:30 Polychromasia Not Reportable 07/20/17 12:30 Hypochromasia 2+ 07/20/17 12:30 Poikilocytosis Not Reportable 07/20/17 12:30 Anisocytosis 2+ 07/20/17 12:30 Microcytosis 1+ 07/20/17 12:30 Macrocytosis 1+ 07/20/17 12:30 Spherocytes Not Reportable 07/20/17 12:30 Pappenheimer Bodies Not Reportable 07/20/17 12:30 Sickle Cells Not Reportable 07/20/17 12:30 Target Cells Not Reportable 07/20/17 12:30 Tear Drop Cells Few 07/20/17 12:30 Ovalocytes Few 07/20/17 12:30 Helmet Cells Not Reportable 07/20/17 12:30 [place] Bodies Not Reportable 07/20/17 12:30 [place] Rings Not Reportable 07/20/17 12:30 Jamila Cells Not Reportable 07/20/17 12:30 Bite Cells Not Reportable 07/20/17 12:30 Crenated Cell Not Reportable 07/20/17 12:30 Elliptocytes Few 07/20/17 12:30 Acanthocytes (Spur) Not Reportable 07/20/17 12:30 Rouleaux Not Reportable 07/20/17 12:30 Hemoglobin C Crystals Not Reportable 07/20/17 12:30 Schistocytes Rare 07/20/17 12:30 Malaria parasites Not Reportable 07/20/17 12:30 Percent Retic 2.42 % (0.78-2.58) 07/19/17 06:05 Roberto Bodies Not Reportable 07/20/17 12:30 Haptoglobin 204 mg/dL (43-212) 07/03/17 09:31 Hem Pathologist Commnt No 07/20/17 12:30 PT 12.5 Sec. (12.2-14.9) 07/03/17 06:19 INR 0.89 (0.87-1.13) 07/03/17 06:19 APTT 24.6 Sec. (24.2-36.6) 07/03/17 09:31 Fibrinogen 350 mg/dl (211-480) 07/03/17 09:31 Lupus Anticoagulant see below H 07/06/17 17:55 LA PTT Baseline 47 sec (<=40) H 07/06/17 17:55 dRVVT Confirm Interp Negative (Negative) 07/06/17 17:55 dRVVT Screen 50:50 See scanned report 07/06/17 17:55 dRVVT Mix Interpret See scanned report 07/06/17 17:55 POC ABG pH 7.459 (7.35-7.45) H 07/13/17 08:26 POC ABG pCO2 40.4 (35-45) 07/13/17 08:26 POC ABG pO2 99 (80-105) 07/13/17 08:26 POC ABG HCO3 28.6 07/13/17 08:26 POC ABG Total CO2 30 07/13/17 08:26 POC ABG O2 Sat 98 07/13/17 08:26 POC ABG Base Excess 5 07/13/17 08:26 VBG pH 7.372 (7.320-7.420) 07/03/17 06:19 FiO2 30 % 07/13/17 08:26 Sodium 135 mmol/L (137-145) L 07/24/17 06:49 Potassium 4.1 mmol/L (3.6-5.0) 07/24/17 06:49 Chloride 98.0 mmol/L (98-107) 07/24/17 06:49 Carbon Dioxide 24 mmol/L (22-30) 07/24/17 06:49 Anion Gap 15 mmol/L 07/24/17 06:49 BUN 18 mg/dL (7-17) H 07/24/17 06:49 Creatinine 0.6 mg/dL (0.7-1.2) L 07/24/17 06:49 Estimated GFR > 60 ml/min 07/24/17 06:49 BUN/Creatinine Ratio 30 % 07/24/17 06:49 Glucose 123 mg/dL (65-100) H 07/24/17 06:49 POC Glucose 122 (70-105) H 07/24/17 06:02 Lactic Acid 0.90 mmol/L (0.7-2.0) 07/06/17 07:28 Calcium 9.1 mg/dL (8.4-10.2) 07/24/17 06:49 Ionized Calcium 5.1 mg/dL (4.8-5.6) 07/07/17 12:21 Phosphorus 4.30 mg/dL (2.5-4.5) 07/24/17 06:49 Magnesium 1.80 mg/dL (1.7-2.3) 07/24/17 06:49 Iron 34 ug/dL (37-170) L 07/19/17 06:05 TIBC 260 mcg/dL (250-450) 07/19/17 06:05 % Saturation 13.08 % 07/19/17 06:05 Transferrin 227 mg/dl (192-382) 07/19/17 06:05 Ferritin 195.3 ng/mL (13.0-400.0) 07/19/17 06:05 Total Bilirubin 0.50 mg/dL (0.1-1.2) 07/14/17 09:35 AST 42 units/L (5-40) H 07/14/17 09:35 ALT 29 units/L (7-56) 07/14/17 09:35 Alkaline Phosphatase 105 units/L (35-129) 07/14/17 09:35 C-Reactive Protein 10.30 mg/dL (0.00-1.30) H 07/12/17 17:01 NT-Pro-B Natriuret Pep 114.4 pg/mL (0-450) 07/07/17 12:21 Total Protein 6.1 g/dL (6.3-8.2) L 07/14/17 09:35 Albumin 2.6 g/dL (3.9-5) L 07/14/17 09:35 Albumin/Globulin Ratio 0.7 % 07/14/17 09:35 Prealbumin 0.670 g/L (0.200-0.400) H 07/24/17 06:49 Triglycerides 103 mg/dL (2-149) 07/05/17 22:04 Lipase 18 units/L (13-60) 07/03/17 05:28 Vitamin B12 1373 pg/mL (211-911) H 07/19/17 06:05 Folate 10.31 ng/mL (7.3-26.0) 07/19/17 06:05 TSH 0.561 mlU/mL (0.270-4.200) 07/04/17 14:38 HCG, Qual Negative (Negative) 07/03/17 06:19 HCG, Quant < 2 mIU/mL (0-4) 07/05/17 15:50 PTH Intact 285.9 pg/mL (15-65) H 07/06/17 07:28 Urine Color Yellow (Yellow) 07/05/17 Unknown Urine Turbidity Clear (Clear) 07/05/17 Unknown Urine pH 5.0 (5.0-7.0) 07/05/17 Unknown Ur Specific [place] 1.021 (1.003-1.030) 07/05/17 Unknown Urine Protein 100 mg/dl mg/dL (Negative) 07/05/17 Unknown Urine Glucose (UA) 50 mg/dL (Negative) 07/05/17 Unknown Urine Ketones Tr mg/dL (Negative) 07/05/17 Unknown Urine Blood Sm (Negative) 07/05/17 Unknown Urine Nitrite Neg (Negative) 07/05/17 Unknown Urine Bilirubin Neg (Negative) 07/05/17 Unknown Urine Urobilinogen < 2.0 mg/dL (<2.0) 07/05/17 Unknown Ur Leukocyte Esterase Tr (Negative) 07/05/17 Unknown Urine WBC (Auto) < 1.0 /HPF (0.0-6.0) 07/05/17 Unknown Urine RBC (Auto) 10.0 /HPF (0.0-6.0) 07/05/17 Unknown U Epithel Cells (Auto) 9.0 /HPF (0-13.0) 07/05/17 Unknown Urine Bacteria (Auto) 2+ /HPF (Negative) 07/05/17 Unknown Urine Mucus Few /HPF 07/03/17 Unknown Urine Eosinophils None seen (None Seen) 07/05/17 Unknown Urine Creatinine 237.2 mg/dL (0.1-20.0) H 07/05/17 Unknown Urine Microalbumin 39.9 mg/dL (0.1-34.0) H 07/05/17 Unknown Microalb/Creat Ratio 168.2 ug/mg 07/05/17 Unknown Urine Sodium 18 mmol/L 07/05/17 Unknown Urine Total Protein 170 mg/dL (5-11.8) H 07/05/17 Unknown [place] Screen Negative (Negative) 07/06/17 17:55 Proteinase 3 (PR3) Ab <1.0 AI (<1.0) 07/06/17 17:55 Myeloperoxidase Ab <1.0 AI (<1.0) 07/06/17 17:55 Complement C3 77 mg/dL (83-193) L 07/06/17 17:55 Complement C4 16 mg/dL (15-57) 07/06/17 17:55 Hepatitis A IgM Ab Non-reactive (NonReactive) 07/06/17 18:07 Hep Bs Antigen Non-reactive (Negative) 07/06/17 18:07 Hep B Core IgM Ab Non-reactive (NonReactive) 07/06/17 18:07 Hepatitis C Antibody Non-reactive (NonReactive) 07/06/17 18:07 HIV 1&2 Antibody Rapid Non react (Non React) 07/06/17 18:09 HIV P24 Antigen Non react (Non React) 07/06/17 18:09 Blood Type O POSITIVE 07/21/17 15:15 Antibody Screen Negative 07/21/17 15:15 Crossmatch See Detail 07/21/17 15:15
[2017-07-24] MEDS ORDERED: TPN ADULT 2,016 ML IV SCH (20:00)
[2017-07-25] MEDS: PERCOCET 5/325 PO PRN ×3 (06:24→18:25)
[2017-07-25] MEDS: HEPARIN SUB-Q SCH ×3 (06:25→23:50)
[2017-07-25] MEDS: MORPHINE IV PRN ×2 (10:12→20:58)
[2017-07-25] MEDS: CATAPRES PO SCH ×2 (12:11→23:52)
[2017-07-25] MEDS: VIBRAMYCIN PO SCH ×2 (12:14→23:49)
[2017-07-25] MEDS: PEPCID PO SCH ×2 (12:14→23:49)
--- NOTE | 2017-07-25 12:29 | Progress Note ---
Assessment and Plan Assessment and plan: 42 yo F with hx of HTN noncompliance presented to hospital with acute onset abdominal pain, n/v, diarrhea. CT A/P showed ileus vs enterocolitis. She was observed for 24 hours but her abdominal pain worsened and exam was concerning for peritonitis and surgical abdomen. She was taken to the OR for Diagnostic laparoscopy, converted to exploratory laparotomy, small bowel resection, right hemicolectomy. Severe Sepsis due to gangrenous bowel; s/p removal of near complete small intestine; completed abx per ID EMMA secondary to vasomotor nephropathy with underlying ATN; resolved Peritoneal irritation due to infected bowel, resolved Severe Anemia, Transfuse as need, for far 5 units transfused Ischemic/Gangrenous Bowel, s/p resection, may need TPN lifelong. Surgery placed on low carb diet and plan to hold TPN for a week, if tolerates and then may d/ c home w/o TPN. Check prealbumin tomorrow and a week later to compare. But if prealbumin declines and pt develops diarrhea then will need TPN lifelong. Discontinued TPN and monitor Luekocytosis, from sepsis, resolved Hypertensive urgency-resolved Menorraghia secondary to Fibroids Etoh use disorder, now stable, no sign of withdrawl Right liver lesion? Hemangioma, outpt f/u Multiple electrolyte abnormalities, repleted Hypothermia from sepsis-Resolved Cocaine abuse per history Malnutrition. May need lifelong TPN due to near total small bowel resection. Positive Lupus anticoagulant, consulted hematology and recommended to f/u outpt DVT prophylaxis. Heparin Full code status History Interval history: Feels better, Started diet Mild abdominal pain Hospitalist Physical - Physical exam Narrative exam: General: Not in acute distress, lying in bed HEENT:Normocephalic, atraumatic Neck:supple,no JVD Lungs: Clear to auscultation bilaterally, no crackles, no wheeze Heart:S1 and S2 regular, no murmurs, rubs or gallop Abd: soft, mild tender, no rebound tenderness, surgical wound midline.normal bowel sounds Ext: No edema, no clubbing, no cyanosis Neuro: AAO x 3, moves all extremities. - Constitutional Vitals: Temp Pulse Resp BP Pulse Ox 98.6 F 60 18 97/55 100 07/25/17 07:21 07/25/17 12:11 07/25/17 07:24 07/25/17 12:11 07/25/17 07:21 General appearance: Present: no acute distress Results - Labs CBC & Chem 7: 07/22/17 07:40 07/24/17 06:49 Labs: Laboratory Last Values WBC 9.7 K/mm3 (4.5-11.0) 07/22/17 07:40 RBC 3.70 M/mm3 (3.65-5.03) 07/22/17 07:40 Hgb 9.6 gm/dl (10.1-14.3) L 07/22/17 07:40 Hct 28.0 % (30.3-42.9) L 07/22/17 07:40 MCV 76 fl (79-97) L 07/22/17 07:40 MCH 26 pg (28-32) L 07/22/17 07:40 MCHC 34 % (30-34) 07/22/17 07:40 RDW 30.2 % (13.2-15.2) H 07/22/17 07:40 Plt Count 459 K/mm3 (140-440) H 07/22/17 07:40 Lymph % (Auto) Alodize Machine Helper 07/20/17 12:30 Kinney % (Auto) Alod[employer] Machine Helper 07/20/17 12:30 Eos % (Auto) [employer] Machine Helper 07/20/17 12:30 Baso % (Auto) [employer] Machine Helper 07/20/17 12:30 Lymph # [employer] Machine Helper 07/20/17 12:30 Kinney # [employer]od[employer] Machine Helper 07/20/17 12:30 Eos # Al[employer] Machine Helper 07/20/17 12:30 Baso # Alodize Machine Helper 07/20/17 12:30 Add Manual Diff Complete 07/20/17 12:30 Total Counted 100 07/20/17 12:30 Seg Neutrophils % Alodize Machine Helper 07/20/17 12:30 Seg Neuts % (Manual) 74.0 % (40.0-70.0) H 07/20/17 12:30 Band Neutrophils % 0 % 07/20/17 12:30 Lymphocytes % (Manual) 16.0 % (13.4-35.0) 07/20/17 12:30 Reactive Lymphs % (Man) 0 % 07/20/17 12:30 Monocytes % (Manual) 9.0 % (0.0-7.3) H 07/20/17 12:30 Eosinophils % (Manual) 1.0 % (0.0-4.3) 07/20/17 12:30 Basophils % (Manual) 0 % (0.0-1.8) 07/20/17 12:30 Metamyelocytes % 0 % 07/20/17 12:30 Myelocytes % 0 % 07/20/17 12:30 Promyelocytes % 0 % 07/20/17 12:30 Blast Cells % 0 % 07/20/17 12:30 Nucleated RBC % Not Reportable 07/20/17 12:30 Seg Neutrophils # Alodize Machine Helper 07/20/17 12:30 Seg Neutrophils # Man 7.5 K/mm3 (1.8-7.7) 07/20/17 12:30 Band Neutrophils # 0.0 K/mm3 07/20/17 12:30 Lymphocytes # (Manual) 1.6 K/mm3 (1.2-5.4) 07/20/17 12:30 Abs React Lymphs (Man) 0.0 K/mm3 07/20/17 12:30 Monocytes # (Manual) 0.9 K/mm3 (0.0-0.8) H 07/20/17 12:30 Eosinophils # (Manual) 0.1 K/mm3 (0.0-0.4) 07/20/17 12:30 Basophils # (Manual) 0.0 K/mm3 (0.0-0.1) 07/20/17 12:30 Metamyelocytes # 0.0 K/mm3 07/20/17 12:30 Myelocytes # 0.0 K/mm3 07/20/17 12:30 Promyelocytes # 0.0 K/mm3 07/20/17 12:30 Blast Cells # 0.0 K/mm3 07/20/17 12:30 Pathologist Review 07/04/17 04:39 WBC Morphology Not Reportable 07/20/17 12:30 Hypersegmented Neuts Not Reportable 07/20/17 12:30 Hyposegmented Neuts Not Reportable 07/20/17 12:30 Hypogranular Neuts Not Reportable 07/20/17 12:30 Smudge Cells Not Reportable 07/20/17 12:30 Toxic Granulation Not Reportable 07/20/17 12:30 Toxic Vacuolation Not Reportable 07/20/17 12:30 Dohle Bodies Not Reportable 07/20/17 12:30 Pelger-Huet Anomaly Not Reportable 07/20/17 12:30 Irma Rods Not Reportable 07/20/17 12:30 Platelet Estimate Cons 07/20/17 12:30 Clumped Platelets Not Reportable 07/20/17 12:30 Plt Clumps, EDTA Not Reportable 07/20/17 12:30 Large Platelets Few 07/20/17 12:30 Giant Platelets Not Reportable 07/20/17 12:30 Platelet Satelliting Not Reportable 07/20/17 12:30 Plt Morphology Comment Not Reportable 07/20/17 12:30 RBC Morphology Not Reportable 07/20/17 12:30 Dimorphic RBCs Not Reportable 07/20/17 12:30 Polychromasia Not Reportable 07/20/17 12:30 Hypochromasia 2+ 07/20/17 12:30 Poikilocytosis Not Reportable 07/20/17 12:30 Anisocytosis 2+ 07/20/17 12:30 Microcytosis 1+ 07/20/17 12:30 Macrocytosis 1+ 07/20/17 12:30 Spherocytes Not Reportable 07/20/17 12:30 Pappenheimer Bodies Not Reportable 07/20/17 12:30 Sickle Cells Not Reportable 07/20/17 12:30 Target Cells Not Reportable 07/20/17 12:30 Tear Drop Cells Few 07/20/17 12:30 Ovalocytes Few 07/20/17 12:30 Helmet Cells Not Reportable 07/20/17 12:30 Barber-Fillmore Bodies Not Reportable 07/20/17 12:30 [place] Rings Not Reportable 07/20/17 12:30 [place] Cells Not Reportable 07/20/17 12:30 Bite Cells Not Reportable 07/20/17 12:30 Crenated Cell Not Reportable 07/20/17 12:30 Elliptocytes Few 07/20/17 12:30 Acanthocytes (Spur) Not Reportable 07/20/17 12:30 Rouleaux Not Reportable 07/20/17 12:30 Hemoglobin C Crystals Not Reportable 07/20/17 12:30 Schistocytes Rare 07/20/17 12:30 Malaria parasites Not Reportable 07/20/17 12:30 Percent Retic 2.42 % (0.78-2.58) 07/19/17 06:05 Roberto Bodies Not Reportable 07/20/17 12:30 Haptoglobin 204 mg/dL (43-212) 07/03/17 09:31 Hem Pathologist Commnt No 07/20/17 12:30 PT 12.5 Sec. (12.2-14.9) 07/03/17 06:19 INR 0.89 (0.87-1.13) 07/03/17 06:19 APTT 24.6 Sec. (24.2-36.6) 07/03/17 09:31 Fibrinogen 350 mg/dl (211-480) 07/03/17 09:31 Lupus Anticoagulant see below H 07/06/17 17:55 LA PTT Baseline 47 sec (<=40) H 07/06/17 17:55 dRVVT Confirm Interp Negative (Negative) 07/06/17 17:55 dRVVT Screen 50:50 See scanned report 07/06/17 17:55 dRVVT Mix Interpret See scanned report 07/06/17 17:55 POC ABG pH 7.459 (7.35-7.45) H 07/13/17 08:26 POC ABG pCO2 40.4 (35-45) 07/13/17 08:26 POC ABG pO2 99 (80-105) 07/13/17 08:26 POC ABG HCO3 28.6 07/13/17 08:26 POC ABG Total CO2 30 07/13/17 08:26 POC ABG O2 Sat 98 07/13/17 08:26 POC ABG Base Excess 5 07/13/17 08:26 VBG pH 7.372 (7.320-7.420) 07/03/17 06:19 FiO2 30 % 07/13/17 08:26 Sodium 135 mmol/L (137-145) L 07/24/17 06:49 Potassium 4.1 mmol/L (3.6-5.0) 07/24/17 06:49 Chloride 98.0 mmol/L (98-107) 07/24/17 06:49 Carbon Dioxide 24 mmol/L (22-30) 07/24/17 06:49 Anion Gap 15 mmol/L 07/24/17 06:49 BUN 18 mg/dL (7-17) H 07/24/17 06:49 Creatinine 0.6 mg/dL (0.7-1.2) L 07/24/17 06:49 Estimated GFR > 60 ml/min 07/24/17 06:49 BUN/Creatinine Ratio 30 % 07/24/17 06:49 Glucose 123 mg/dL (65-100) H 07/24/17 06:49 POC Glucose 89 (70-105) 07/25/17 05:33 Lactic Acid 0.90 mmol/L (0.7-2.0) 07/06/17 07:28 Calcium 9.1 mg/dL (8.4-10.2) 07/24/17 06:49 Ionized Calcium 5.1 mg/dL (4.8-5.6) 07/07/17 12:21 Phosphorus 4.30 mg/dL (2.5-4.5) 07/24/17 06:49 Magnesium 1.80 mg/dL (1.7-2.3) 07/24/17 06:49 Iron 34 ug/dL (37-170) L 07/19/17 06:05 TIBC 260 mcg/dL (250-450) 07/19/17 06:05 % Saturation 13.08 % 07/19/17 06:05 Transferrin 227 mg/dl (192-382) 07/19/17 06:05 Ferritin 195.3 ng/mL (13.0-400.0) 07/19/17 06:05 Total Bilirubin 0.50 mg/dL (0.1-1.2) 07/14/17 09:35 AST 42 units/L (5-40) H 07/14/17 09:35 ALT 29 units/L (7-56) 07/14/17 09:35 Alkaline Phosphatase 105 units/L (35-129) 07/14/17 09:35 C-Reactive Protein 10.30 mg/dL (0.00-1.30) H 07/12/17 17:01 NT-Pro-B Natriuret Pep 114.4 pg/mL (0-450) 07/07/17 12:21 Total Protein 6.1 g/dL (6.3-8.2) L 07/14/17 09:35 Albumin 2.6 g/dL (3.9-5) L 07/14/17 09:35 Albumin/Globulin Ratio 0.7 % 07/14/17 09:35 Prealbumin 0.670 g/L (0.200-0.400) H 07/24/17 06:49 Triglycerides 103 mg/dL (2-149) 07/05/17 22:04 Lipase 18 units/L (13-60) 07/03/17 05:28 Vitamin B12 1373 pg/mL (211-911) H 07/19/17 06:05 Folate 10.31 ng/mL (7.3-26.0) 07/19/17 06:05 TSH 0.561 mlU/mL (0.270-4.200) 07/04/17 14:38 HCG, Qual Negative (Negative) 07/03/17 06:19 HCG, Quant < 2 mIU/mL (0-4) 07/05/17 15:50 PTH Intact 285.9 pg/mL (15-65) H 07/06/17 07:28 Urine Color Yellow (Yellow) 07/05/17 Unknown Urine Turbidity Clear (Clear) 07/05/17 Unknown Urine pH 5.0 (5.0-7.0) 07/05/17 Unknown Ur Specific [place] 1.021 (1.003-1.030) 07/05/17 Unknown Urine Protein 100 mg/dl mg/dL (Negative) 07/05/17 Unknown Urine Glucose (UA) 50 mg/dL (Negative) 07/05/17 Unknown Urine Ketones Tr mg/dL (Negative) 07/05/17 Unknown Urine Blood Sm (Negative) 07/05/17 Unknown Urine Nitrite Neg (Negative) 07/05/17 Unknown Urine Bilirubin Neg (Negative) 07/05/17 Unknown Urine Urobilinogen < 2.0 mg/dL (<2.0) 07/05/17 Unknown Ur Leukocyte Esterase Tr (Negative) 07/05/17 Unknown Urine WBC (Auto) < 1.0 /HPF (0.0-6.0) 07/05/17 Unknown Urine RBC (Auto) 10.0 /HPF (0.0-6.0) 07/05/17 Unknown U Epithel Cells (Auto) 9.0 /HPF (0-13.0) 07/05/17 Unknown Urine Bacteria (Auto) 2+ /HPF (Negative) 07/05/17 Unknown Urine Mucus Few /HPF 07/03/17 Unknown Urine Eosinophils None seen (None Seen) 07/05/17 Unknown Urine Creatinine 237.2 mg/dL (0.1-20.0) H 07/05/17 Unknown Urine Microalbumin 39.9 mg/dL (0.1-34.0) H 07/05/17 Unknown Microalb/Creat Ratio 168.2 ug/mg 07/05/17 Unknown Urine Sodium 18 mmol/L 07/05/17 Unknown Urine Total Protein 170 mg/dL (5-11.8) H 07/05/17 Unknown C[place] Screen Negative (Negative) 07/06/17 17:55 Proteinase 3 (PR3) Ab <1.0 AI (<1.0) 07/06/17 17:55 Myeloperoxidase Ab <1.0 AI (<1.0) 07/06/17 17:55 Complement C3 77 mg/dL (83-193) L 07/06/17 17:55 Complement C4 16 mg/dL (15-57) 07/06/17 17:55 Hepatitis A IgM Ab Non-reactive (NonReactive) 07/06/17 18:07 Hep Bs Antigen Non-reactive (Negative) 07/06/17 18:07 Hep B Core IgM Ab Non-reactive (NonReactive) 07/06/17 18:07 Hepatitis C Antibody Non-reactive (NonReactive) 07/06/17 18:07 HIV 1&2 Antibody Rapid Non react (Non React) 07/06/17 18:09 HIV P24 Antigen Non react (Non React) 07/06/17 18:09 Blood Type O POSITIVE 07/21/17 15:15 Antibody Screen Negative 07/21/17 15:15 Crossmatch See Detail 07/21/17 15:15
[2017-07-25] MEDS: COREG PO SCH ×2 (13:12→23:51)
[2017-07-25] MEDS: DIOVAN PO SCH ×2 (13:12→23:51)
[2017-07-25] MEDS: NORVASC PO SCH (13:12)
[2017-07-25] MEDS: ZOFRAN IV PRN (18:26)
[2017-07-26] MEDS: PERCOCET 5/325 PO PRN ×3 (00:25→16:47)
[2017-07-26] MEDS: HEPARIN SUB-Q SCH ×3 (06:04→21:43)
--- NOTE | 2017-07-26 09:18 | Discharge Summary ---
Providers - Providers Date of Admission: 07/03/17 08:40 Date of discharge: 07/26/17 Attending physician: HARISH GODINEZ 07/03/17 08:42 Consult to Physician [CONS] Routine Comment: DR MCINTOSH NOTIFIED 0940 Consulting Provider: SHADI HYMAN Physician Instructions: Reason For Exam: severe sepsis 07/03/17 08:59 Consult to Physician [CONS] Routine Comment: A/S NOTIFIED ARISTIDES Consulting Provider: MELINDA CALDERON Physician Instructions: Reason For Exam: severe sepsis, severe anemia, HTN URGENCY 07/03/17 11:55 PICC Line Insertion [Consult to PICC Line RN] [CONS] Stat Reason For Exam: venous access Type Line:: Midline 07/04/17 08:51 Consult to Physician [CONS] Routine Comment: Consulting Provider: HITESH NORTH Physician Instructions: Reason For Exam: Ileus, abdominal pain, hemagioma 07/05/17 10:18 Consult to Physician [CONS] Routine Comment: Consulting Provider: ANA ROSA CESPEDES Physician Instructions: Reason For Exam: EMMA 07/05/17 21:19 Consult to Dietitian/Nutrition [CONS] Routine Physician Instructions: Reason For Exam: Reason for Consult: Write/Manage TPN/PPN 07/05/17 21:24 Consult to PICC Line RN [CONS] Routine Reason For Exam: TPN Type Line:: PICC 07/13/17 15:39 Consult to Dietitian/Nutrition [CONS] Routine Physician Instructions: pt may only have 10ml/hr of recommended TF formula Reason For Exam: Reason for Consult: Write/Manage Tube Feeding 07/13/17 19:12 Physical Therapy Evaluation and Treat [CONS] Routine Comment: Reason For Exam: weakness s/p extubation 07/13/17 19:15 Occupational Therapy Evaluate and Treat [CONS] Routine Comment: Reason For Exam: weakness s/p extubation 07/18/17 16:25 Consult to Physician [CONS] Routine Comment: Consulting Provider: BENJY MEJIA Physician Instructions: Reason For Exam: positive lupus anticoagulant Primary care physician: AUTOMOBILE TESTER Hospitalization Condition: Fair Core Measure Documentation - Palliative Care Palliative Care/ Comfort Measures: Not Applicable Exam - Constitutional Vitals: Temp Pulse Resp BP Pulse Ox 98.5 F 65 19 106/59 100 07/26/17 07:59 07/26/17 00:00 07/26/17 07:59 07/26/17 07:59 07/26/17 00:00 Plan Follow up with: PRIMARY MD SANDHYA [Primary Care Provider] - 3-5 Days
[2017-07-26] MEDS: ZOFRAN IV PRN ×2 (09:26→15:43)
[2017-07-26] MEDS: MORPHINE IV PRN ×3 (09:26→20:02)
--- NOTE | 2017-07-26 09:28 | Progress Note ---
Assessment and Plan Assessment and plan: 42 yo F with hx of HTN noncompliance presented to hospital with acute onset abdominal pain, n/v, diarrhea. CT A/P showed ileus vs enterocolitis. She was observed for 24 hours but her abdominal pain worsened and exam was concerning for peritonitis and surgical abdomen. She was taken to the OR for Diagnostic laparoscopy, converted to exploratory laparotomy, small bowel resection, right hemicolectomy. Severe Sepsis due to gangrenous bowel; s/p removal of near complete small intestine; completed abx per ID EMMA secondary to vasomotor nephropathy with underlying ATN; resolved Peritoneal irritation due to infected bowel, resolved Severe Anemia, Transfuse as need, for far 5 units transfused Ischemic/Gangrenous Bowel, s/p resection, may need TPN lifelong. Surgery placed on low carb diet and plan to hold TPN for a week, if tolerates and then may d/ c home w/o TPN. Check prealbumin tomorrow and a week later to compare. But if prealbumin declines and pt develops diarrhea then will need TPN lifelong. Discontinued TPN and monitoring for 1 week as recommended by Surg Luekocytosis, from sepsis, resolved Hypertensive urgency-resolved Menorraghia secondary to Fibroids Etoh use disorder, now stable, no sign of withdrawl Right liver lesion? Hemangioma, outpt f/u Multiple electrolyte abnormalities, repleted Hypothermia from sepsis-Resolved Cocaine abuse per history Malnutrition. May need lifelong TPN due to near total small bowel resection. Positive Lupus anticoagulant, consulted hematology and recommended to f/u outpt DVT prophylaxis. Heparin Full code status Discussed with Dr. Pérez, Surgeon. He recommends keep inpatient and repeat Pre- albumin level on Sunday, 07/31 History Interval history: Feels better, Tolerating diet Less abdominal pain, Patient wants to go home Hospitalist Physical - Physical exam Narrative exam: General: Not in acute distress, lying in bed HEENT:Normocephalic, atraumatic Neck:supple,no JVD Lungs: Clear to auscultation bilaterally, no crackles, no wheeze Heart:S1 and S2 regular, no murmurs, rubs or gallop Abd: soft, mild tender, no rebound tenderness, surgical wound midline.normal bowel sounds Ext: No edema, no clubbing, no cyanosis Neuro: AAO x 3, moves all extremities. - Constitutional Vitals: Temp Pulse Resp BP Pulse Ox 98.5 F 65 19 106/59 100 07/26/17 07:59 07/26/17 00:00 07/26/17 07:59 07/26/17 07:59 07/26/17 00:00 General appearance: Present: no acute distress, obese Results - Labs CBC & Chem 7: 07/26/17 Unknown 07/24/17 06:49 Labs: Laboratory Last Values WBC 9.7 K/mm3 (4.5-11.0) 07/22/17 07:40 RBC 3.70 M/mm3 (3.65-5.03) 07/22/17 07:40 Hgb 9.6 gm/dl (10.1-14.3) L 07/22/17 07:40 Hct 28.0 % (30.3-42.9) L 07/22/17 07:40 MCV 76 fl (79-97) L 07/22/17 07:40 MCH 26 pg (28-32) L 07/22/17 07:40 MCHC 34 % (30-34) 07/22/17 07:40 RDW 30.2 % (13.2-15.2) H 07/22/17 07:40 Plt Count 459 K/mm3 (140-440) H 07/22/17 07:40 Lymph % (Auto) Certified Optician 07/20/17 12:30 [place] % (Auto) Certified Optician 07/20/17 12:30 Eos % (Auto) Certified Optician 07/20/17 12:30 Baso % (Auto) Certified Optician 07/20/17 12:30 Lymph # Certified Optician 07/20/17 12:30 [place] # Certified Optician 07/20/17 12:30 Eos # Certified Optician 07/20/17 12:30 Baso # Certified Optician 07/20/17 12:30 Add Manual Diff Complete 07/20/17 12:30 Total Counted 100 07/20/17 12:30 Seg Neutrophils % Certified Optician 07/20/17 12:30 Seg Neuts % (Manual) 74.0 % (40.0-70.0) H 07/20/17 12:30 Band Neutrophils % 0 % 07/20/17 12:30 Lymphocytes % (Manual) 16.0 % (13.4-35.0) 07/20/17 12:30 Reactive Lymphs % (Man) 0 % 07/20/17 12:30 Monocytes % (Manual) 9.0 % (0.0-7.3) H 07/20/17 12:30 Eosinophils % (Manual) 1.0 % (0.0-4.3) 07/20/17 12:30 Basophils % (Manual) 0 % (0.0-1.8) 07/20/17 12:30 Metamyelocytes % 0 % 07/20/17 12:30 Myelocytes % 0 % 07/20/17 12:30 Promyelocytes % 0 % 07/20/17 12:30 Blast Cells % 0 % 07/20/17 12:30 Nucleated RBC % Not Reportable 07/20/17 12:30 Seg Neutrophils # Certified Optician 07/20/17 12:30 Seg Neutrophils # Man 7.5 K/mm3 (1.8-7.7) 07/20/17 12:30 Band Neutrophils # 0.0 K/mm3 07/20/17 12:30 Lymphocytes # (Manual) 1.6 K/mm3 (1.2-5.4) 07/20/17 12:30 Abs React Lymphs (Man) 0.0 K/mm3 07/20/17 12:30 Monocytes # (Manual) 0.9 K/mm3 (0.0-0.8) H 07/20/17 12:30 Eosinophils # (Manual) 0.1 K/mm3 (0.0-0.4) 07/20/17 12:30 Basophils # (Manual) 0.0 K/mm3 (0.0-0.1) 07/20/17 12:30 Metamyelocytes # 0.0 K/mm3 07/20/17 12:30 Myelocytes # 0.0 K/mm3 07/20/17 12:30 Promyelocytes # 0.0 K/mm3 07/20/17 12:30 Blast Cells # 0.0 K/mm3 07/20/17 12:30 Pathologist Review 07/04/17 04:39 WBC Morphology Not Reportable 07/20/17 12:30 Hypersegmented Neuts Not Reportable 07/20/17 12:30 Hyposegmented Neuts Not Reportable 07/20/17 12:30 Hypogranular Neuts Not Reportable 07/20/17 12:30 Smudge Cells Not Reportable 07/20/17 12:30 Toxic Granulation Not Reportable 07/20/17 12:30 Toxic Vacuolation Not Reportable 07/20/17 12:30 Dohle Bodies Not Reportable 07/20/17 12:30 Pelger-Huet Anomaly Not Reportable 07/20/17 12:30 Irma Rods Not Reportable 07/20/17 12:30 Platelet Estimate Cons 07/20/17 12:30 Clumped Platelets Not Reportable 07/20/17 12:30 Plt Clumps, EDTA Not Reportable 07/20/17 12:30 Large Platelets Few 07/20/17 12:30 Giant Platelets Not Reportable 07/20/17 12:30 Platelet Satelliting Not Reportable 07/20/17 12:30 Plt Morphology Comment Not Reportable 07/20/17 12:30 RBC Morphology Not Reportable 07/20/17 12:30 Dimorphic RBCs Not Reportable 07/20/17 12:30 Polychromasia Not Reportable 07/20/17 12:30 Hypochromasia 2+ 07/20/17 12:30 Poikilocytosis Not Reportable 07/20/17 12:30 Anisocytosis 2+ 07/20/17 12:30 Microcytosis 1+ 07/20/17 12:30 Macrocytosis 1+ 07/20/17 12:30 Spherocytes Not Reportable 07/20/17 12:30 Pappenheimer Bodies Not Reportable 07/20/17 12:30 Sickle Cells Not Reportable 07/20/17 12:30 Target Cells Not Reportable 07/20/17 12:30 Tear Drop Cells Few 07/20/17 12:30 Ovalocytes Few 07/20/17 12:30 Helmet Cells Not Reportable 07/20/17 12:30 Barber-[place] Bodies Not Reportable 07/20/17 12:30 [place] Rings Not Reportable 07/20/17 12:30 Jamila Cells Not Reportable 07/20/17 12:30 Bite Cells Not Reportable 07/20/17 12:30 Crenated Cell Not Reportable 07/20/17 12:30 Elliptocytes Few 07/20/17 12:30 Acanthocytes (Spur) Not Reportable 07/20/17 12:30 Rouleaux Not Reportable 07/20/17 12:30 Hemoglobin C Crystals Not Reportable 07/20/17 12:30 Schistocytes Rare 07/20/17 12:30 Malaria parasites Not Reportable 07/20/17 12:30 Percent Retic 2.42 % (0.78-2.58) 07/19/17 06:05 Roberto Bodies Not Reportable 07/20/17 12:30 Haptoglobin 204 mg/dL (43-212) 07/03/17 09:31 Hem Pathologist Commnt No 07/20/17 12:30 PT 12.5 Sec. (12.2-14.9) 07/03/17 06:19 INR 0.89 (0.87-1.13) 07/03/17 06:19 APTT 24.6 Sec. (24.2-36.6) 07/03/17 09:31 Fibrinogen 350 mg/dl (211-480) 07/03/17 09:31 Lupus Anticoagulant see below H 07/06/17 17:55 LA PTT Baseline 47 sec (<=40) H 07/06/17 17:55 dRVVT Confirm Interp Negative (Negative) 07/06/17 17:55 dRVVT Screen 50:50 See scanned report 07/06/17 17:55 dRVVT Mix Interpret See scanned report 07/06/17 17:55 POC ABG pH 7.459 (7.35-7.45) H 07/13/17 08:26 POC ABG pCO2 40.4 (35-45) 07/13/17 08:26 POC ABG pO2 99 (80-105) 07/13/17 08:26 POC ABG HCO3 28.6 07/13/17 08:26 POC ABG Total CO2 30 07/13/17 08:26 POC ABG O2 Sat 98 07/13/17 08:26 POC ABG Base Excess 5 07/13/17 08:26 VBG pH 7.372 (7.320-7.420) 07/03/17 06:19 FiO2 30 % 07/13/17 08:26 Sodium 135 mmol/L (137-145) L 07/24/17 06:49 Potassium 4.1 mmol/L (3.6-5.0) 07/24/17 06:49 Chloride 98.0 mmol/L (98-107) 07/24/17 06:49 Carbon Dioxide 24 mmol/L (22-30) 07/24/17 06:49 Anion Gap 15 mmol/L 07/24/17 06:49 BUN 18 mg/dL (7-17) H 07/24/17 06:49 Creatinine 0.6 mg/dL (0.7-1.2) L 07/24/17 06:49 Estimated GFR > 60 ml/min 07/24/17 06:49 BUN/Creatinine Ratio 30 % 07/24/17 06:49 Glucose 123 mg/dL (65-100) H 07/24/17 06:49 POC Glucose 105 (70-105) 07/26/17 06:29 Lactic Acid 0.90 mmol/L (0.7-2.0) 07/06/17 07:28 Calcium 9.1 mg/dL (8.4-10.2) 07/24/17 06:49 Ionized Calcium 5.1 mg/dL (4.8-5.6) 07/07/17 12:21 Phosphorus 4.30 mg/dL (2.5-4.5) 07/24/17 06:49 Magnesium 1.80 mg/dL (1.7-2.3) 07/24/17 06:49 Iron 34 ug/dL (37-170) L 07/19/17 06:05 TIBC 260 mcg/dL (250-450) 07/19/17 06:05 % Saturation 13.08 % 07/19/17 06:05 Transferrin 227 mg/dl (192-382) 07/19/17 06:05 Ferritin 195.3 ng/mL (13.0-400.0) 07/19/17 06:05 Total Bilirubin 0.50 mg/dL (0.1-1.2) 07/14/17 09:35 AST 42 units/L (5-40) H 07/14/17 09:35 ALT 29 units/L (7-56) 07/14/17 09:35 Alkaline Phosphatase 105 units/L (35-129) 07/14/17 09:35 C-Reactive Protein 10.30 mg/dL (0.00-1.30) H 07/12/17 17:01 NT-Pro-B Natriuret Pep 114.4 pg/mL (0-450) 07/07/17 12:21 Total Protein 6.1 g/dL (6.3-8.2) L 07/14/17 09:35 Albumin 2.6 g/dL (3.9-5) L 07/14/17 09:35 Albumin/Globulin Ratio 0.7 % 07/14/17 09:35 Prealbumin 0.670 g/L (0.200-0.400) H 07/24/17 06:49 Triglycerides 103 mg/dL (2-149) 07/05/17 22:04 Lipase 18 units/L (13-60) 07/03/17 05:28 Vitamin B12 1373 pg/mL (211-911) H 07/19/17 06:05 Folate 10.31 ng/mL (7.3-26.0) 07/19/17 06:05 TSH 0.561 mlU/mL (0.270-4.200) 07/04/17 14:38 HCG, Qual Negative (Negative) 07/03/17 06:19 HCG, Quant < 2 mIU/mL (0-4) 07/05/17 15:50 PTH Intact 285.9 pg/mL (15-65) H 07/06/17 07:28 Urine Color Yellow (Yellow) 07/05/17 Unknown Urine Turbidity Clear (Clear) 07/05/17 Unknown Urine pH 5.0 (5.0-7.0) 07/05/17 Unknown Ur Specific Melvin 1.021 (1.003-1.030) 07/05/17 Unknown Urine Protein 100 mg/dl mg/dL (Negative) 07/05/17 Unknown Urine Glucose (UA) 50 mg/dL (Negative) 07/05/17 Unknown Urine Ketones Tr mg/dL (Negative) 07/05/17 Unknown Urine Blood Sm (Negative) 07/05/17 Unknown Urine Nitrite Neg (Negative) 07/05/17 Unknown Urine Bilirubin Neg (Negative) 07/05/17 Unknown Urine Urobilinogen < 2.0 mg/dL (<2.0) 07/05/17 Unknown Ur Leukocyte Esterase Tr (Negative) 07/05/17 Unknown Urine WBC (Auto) < 1.0 /HPF (0.0-6.0) 07/05/17 Unknown Urine RBC (Auto) 10.0 /HPF (0.0-6.0) 07/05/17 Unknown U Epithel Cells (Auto) 9.0 /HPF (0-13.0) 07/05/17 Unknown Urine Bacteria (Auto) 2+ /HPF (Negative) 07/05/17 Unknown Urine Mucus Few /HPF 07/03/17 Unknown Urine Eosinophils None seen (None Seen) 07/05/17 Unknown Urine Creatinine 237.2 mg/dL (0.1-20.0) H 07/05/17 Unknown Urine Microalbumin 39.9 mg/dL (0.1-34.0) H 07/05/17 Unknown Microalb/Creat Ratio 168.2 ug/mg 07/05/17 Unknown Urine Sodium 18 mmol/L 07/05/17 Unknown Urine Total Protein 170 mg/dL (5-11.8) H 07/05/17 Unknown [place] Screen Negative (Negative) 07/06/17 17:55 Proteinase 3 (PR3) Ab <1.0 AI (<1.0) 07/06/17 17:55 Myeloperoxidase Ab <1.0 AI (<1.0) 07/06/17 17:55 Complement C3 77 mg/dL (83-193) L 07/06/17 17:55 Complement C4 16 mg/dL (15-57) 07/06/17 17:55 Hepatitis A IgM Ab Non-reactive (NonReactive) 07/06/17 18:07 Hep Bs Antigen Non-reactive (Negative) 07/06/17 18:07 Hep B Core IgM Ab Non-reactive (NonReactive) 07/06/17 18:07 Hepatitis C Antibody Non-reactive (NonReactive) 07/06/17 18:07 HIV 1&2 Antibody Rapid Non react (Non React) 07/06/17 18:09 HIV P24 Antigen Non react (Non React) 07/06/17 18:09 Blood Type O POSITIVE 07/21/17 15:15 Antibody Screen Negative 07/21/17 15:15 Crossmatch See Detail 07/21/17 15:15
--- NOTE | 2017-07-26 09:31 | Progress Note ---
Assessment and Plan - Patient Problems (1) Ischemia, bowel Current Visit: Yes Status: Acute Plan to address problem: Pt stable. s/p enteroenterostomy and closure of abdominal wall - 5 - POD#17. - Advanced to consistent carbo diet (for comfort). Have given her information on diet effects for patients with short gut syndrome. Seems to be tolerating diet. Discussed with Dr. Henry and patient today. Will try 1 week off from TPN to assess her ability to tolerate a diet and maintain her prealbumin level. Will recheck next Sunday. Will f/u at that time and discuss halfway plan with Hospitalist. - Incision looks good. No clinical signs to suggest anastomotic leak Please call with questions. Will follow peripherally. Subjective Date of service: 07/26/17 Patient Reports: Positive: pain is less, other (Reports that she does not tolerate the shakes as she has always had problems with milk products. She feels she is doing ok with the diet. Stools are remaining somewhat formed, but she had more yesterday. ). Negative: vomiting Objective Vital Signs - 12hr 07/25/17 07/25/17 07/26/17 23:51 23:52 00:00 Temperature 98.2 F Pulse Rate 65 65 65 Respiratory 16 Rate Blood Pressure 95/51 95/51 Blood Pressure 95/51 [Right] O2 Sat by Pulse 100 Oximetry 07/26/17 07/26/17 07/26/17 00:25 06:02 07:59 Temperature 98.5 F Pulse Rate Respiratory 18 20 19 Rate Blood Pressure 106/59 Blood Pressure [Right] O2 Sat by Pulse Oximetry - General physical appearance no distress, no pain, other (looks well. Does not appear ill or in a weakened state) - Respiratory normal expansion, normal respiratory effort - Abdomen soft, not tender, not distended, surgical scars (healing well. Intact. Dry) - Psychiatric oriented to time, oriented to person, oriented to place, speech is normal, memory intact - Labs 07/22/17 07:40 07/24/17 06:49
[2017-07-26] MEDS: VIBRAMYCIN PO SCH (09:33)
[2017-07-26] MEDS: PEPCID PO SCH ×2 (09:33→21:41)
[2017-07-26] MEDS: CATAPRES PO SCH ×2 (10:51→22:10)
[2017-07-26] MEDS: COREG PO SCH ×2 (10:52→22:10)
[2017-07-26] MEDS ORDERED: CATHFLO IV ONE (14:44)
[2017-07-26] MEDS ORDERED: WATER FOR INJ (PF) 10 ML ONE ×2 (15:29)
[2017-07-26] MEDS: DIOVAN PO SCH ×2 (16:48→22:10)
[2017-07-26] MEDS: NORVASC PO SCH (16:49)
[2017-07-26] MEDS ORDERED: ASPIRIN PO STA (17:04)
[2017-07-26 18:28] LABS: Hematocrit 29.2 % (30.3-42.9); Hemoglobin 9.5 gm/dl (10.1-14.3); Mean Corpuscular HGB Conc 33 % (30-34); Mean Corpuscular Volume 78 fl (79-97); Platelet Count 314 K/mm3 (140-440); Red Blood Count 3.74 M/mm3 (3.65-5.03)
[2017-07-26 18:32] LABS: Mean Corpuscular Hemoglobin 25 pg (28-32); Red Cell Distribution Width 26.9 % (13.2-15.2)
[2017-07-26 18:49] LABS: Albumin 3.7 g/dL (3.9-5); Calcium 8.4 mg/dL (8.4-10.2)
[2017-07-26 19:04] LABS: Creatine Kinase MB < 1.0 ng/mL (0.0-4.0)
[2017-07-26 19:35] LABS: Basophils % (Manual) 0 % (0.0-1.8); Total Cells Counted 100
[2017-07-26 19:36] LABS: Anisocytosis 3+; Hypochromasia 1+; Poikilocytosis 2+
[2017-07-26 19:37] LABS: Target Cells Rare
[2017-07-27] MEDS: PERCOCET 5/325 PO PRN ×3 (02:33→18:17)
[2017-07-27] MEDS: MORPHINE IV PRN ×3 (04:25→20:30)
[2017-07-27 05:29] LABS: Creatine Kinase MB < 1.0 ng/mL (0.0-4.0)
[2017-07-27] MEDS: HEPARIN SUB-Q SCH ×3 (05:51→22:50)
[2017-07-27] MEDS: ZOFRAN IV PRN (09:03)
--- NOTE | 2017-07-27 09:39 | Progress Note ---
Assessment and Plan Assessment and plan: 42 yo F with hx of HTN noncompliance presented to hospital with acute onset abdominal pain, n/v, diarrhea. CT A/P showed ileus vs enterocolitis. She was observed for 24 hours but her abdominal pain worsened and exam was concerning for peritonitis and surgical abdomen. She was taken to the OR for Diagnostic laparoscopy, converted to exploratory laparotomy, small bowel resection, right hemicolectomy. Severe Sepsis due to gangrenous bowel; s/p removal of near complete small intestine; completed abx per ID EMMA secondary to vasomotor nephropathy with underlying ATN; resolved Peritoneal irritation due to infected bowel, resolved Severe Anemia, Transfuse as need, for far 5 units transfused Ischemic/Gangrenous Bowel, s/p resection, may need TPN lifelong. Surgery placed on low carb diet and plan to hold TPN for a week, if tolerates and then may d/ c home w/o TPN. Check prealbumin tomorrow and a week later to compare. But if prealbumin declines and pt develops diarrhea then will need TPN lifelong. Discontinued TPN and monitoring for 1 week as recommended by Surg Luekocytosis, from sepsis, resolved Hypertensive urgency-resolved Menorraghia secondary to Fibroids Etoh use disorder, now stable, no sign of withdrawl Right liver lesion? Hemangioma, outpt f/u Multiple electrolyte abnormalities, repleted Hypothermia from sepsis-Resolved Cocaine abuse per history Malnutrition. May need lifelong TPN due to near total small bowel resection. Positive Lupus anticoagulant, consulted hematology and recommended to f/u outpt DVT prophylaxis. Heparin Full code status Discussed with Dr. Pérez, Surgeon. He recommends keep inpatient and repeat Pre- albumin level on Sunday, 07/31 History Interval history: Feels better, Tolerating diet Less abdominal pain, Patient wants to go home Hospitalist Physical - Physical exam Narrative exam: General: Not in acute distress, lying in bed HEENT:Normocephalic, atraumatic Neck:supple,no JVD Lungs: Clear to auscultation bilaterally, no crackles, no wheeze Heart:S1 and S2 regular, no murmurs, rubs or gallop Abd: soft, mild tender, no rebound tenderness, surgical wound midline.normal bowel sounds Ext: No edema, no clubbing, no cyanosis Neuro: AAO x 3, moves all extremities. - Constitutional Vitals: Temp Pulse Resp BP Pulse Ox 98.6 F 56 L 18 121/65 97 07/27/17 08:20 07/27/17 04:42 07/27/17 08:58 07/27/17 08:20 07/27/17 04:42 General appearance: Present: no acute distress, obese Results - Labs CBC & Chem 7: 07/26/17 Unknown 07/26/17 Unknown Labs: Laboratory Last Values WBC 8.1 K/mm3 (4.5-11.0) 07/26/17 Unknown RBC 3.74 M/mm3 (3.65-5.03) 07/26/17 Unknown Hgb 9.5 gm/dl (10.1-14.3) L 07/26/17 Unknown Hct 29.2 % (30.3-42.9) L 07/26/17 Unknown MCV 78 fl (79-97) L 07/26/17 Unknown MCH 25 pg (28-32) L 07/26/17 Unknown MCHC 33 % (30-34) 07/26/17 Unknown RDW 26.9 % (13.2-15.2) H 07/26/17 Unknown Plt Count 314 K/mm3 (140-440) 07/26/17 Unknown Lymph % (Auto) Ortho Nurse 07/20/17 12:30 Person % (Auto) Ortho Nurse 07/20/17 12:30 Eos % (Auto) Ortho Nurse 07/20/17 12:30 Baso % (Auto) Ortho Nurse 07/20/17 12:30 Lymph # Ortho Nurse 07/20/17 12:30 Person # Ortho Nurse 07/20/17 12:30 Eos # Ortho Nurse 07/20/17 12:30 Baso # Ortho Nurse 07/20/17 12:30 Add Manual Diff Complete 07/26/17 Unknown Total Counted 100 07/26/17 Unknown Seg Neutrophils % Ortho Nurse 07/20/17 12:30 Seg Neuts % (Manual) 71.0 % (40.0-70.0) H 07/26/17 Unknown Band Neutrophils % 0 % 07/26/17 Unknown Lymphocytes % (Manual) 17.0 % (13.4-35.0) 07/26/17 Unknown Reactive Lymphs % (Man) 0 % 07/26/17 Unknown Monocytes % (Manual) 10.0 % (0.0-7.3) H 07/26/17 Unknown Eosinophils % (Manual) 2.0 % (0.0-4.3) 07/26/17 Unknown Basophils % (Manual) 0 % (0.0-1.8) 07/26/17 Unknown Metamyelocytes % 0 % 07/26/17 Unknown Myelocytes % 0 % 07/26/17 Unknown Promyelocytes % 0 % 07/26/17 Unknown Blast Cells % 0 % 07/26/17 Unknown Nucleated RBC % Not Reportable 07/26/17 Unknown Seg Neutrophils # Ortho Nurse 07/20/17 12:30 Seg Neutrophils # Man 5.8 K/mm3 (1.8-7.7) 07/26/17 Unknown Band Neutrophils # 0.0 K/mm3 07/26/17 Unknown Lymphocytes # (Manual) 1.4 K/mm3 (1.2-5.4) 07/26/17 Unknown Abs React Lymphs (Man) 0.0 K/mm3 07/26/17 Unknown Monocytes # (Manual) 0.8 K/mm3 (0.0-0.8) 07/26/17 Unknown Eosinophils # (Manual) 0.2 K/mm3 (0.0-0.4) 07/26/17 Unknown Basophils # (Manual) 0.0 K/mm3 (0.0-0.1) 07/26/17 Unknown Metamyelocytes # 0.0 K/mm3 07/26/17 Unknown Myelocytes # 0.0 K/mm3 07/26/17 Unknown Promyelocytes # 0.0 K/mm3 07/26/17 Unknown Blast Cells # 0.0 K/mm3 07/26/17 Unknown Pathologist Review 07/04/17 04:39 WBC Morphology Not Reportable 07/26/17 Unknown Hypersegmented Neuts Not Reportable 07/26/17 Unknown Hyposegmented Neuts Not Reportable 07/26/17 Unknown Hypogranular Neuts Not Reportable 07/26/17 Unknown Smudge Cells Not Reportable 07/26/17 Unknown Toxic Granulation Not Reportable 07/26/17 Unknown Toxic Vacuolation Not Reportable 07/26/17 Unknown Dohle Bodies Not Reportable 07/26/17 Unknown Pelger-Huet Anomaly Not Reportable 07/26/17 Unknown Irma Rods Not Reportable 07/26/17 Unknown Platelet Estimate Appears normal 07/26/17 Unknown Clumped Platelets Not Reportable 07/26/17 Unknown Plt Clumps, EDTA Not Reportable 07/26/17 Unknown Large Platelets Not Reportable 07/26/17 Unknown Giant Platelets Not Reportable 07/26/17 Unknown Platelet Satelliting Not Reportable 07/26/17 Unknown Plt Morphology Comment Not Reportable 07/26/17 Unknown RBC Morphology Not Reportable 07/26/17 Unknown Dimorphic RBCs Not Reportable 07/26/17 Unknown Polychromasia Not Reportable 07/26/17 Unknown Hypochromasia 1+ 07/26/17 Unknown Poikilocytosis 2+ 07/26/17 Unknown Anisocytosis 3+ 07/26/17 Unknown Microcytosis 1+ 07/26/17 Unknown Macrocytosis Not Reportable 07/26/17 Unknown Spherocytes Not Reportable 07/26/17 Unknown Pappenheimer Bodies Not Reportable 07/26/17 Unknown Sickle Cells Not Reportable 07/26/17 Unknown Target Cells Rare 07/26/17 Unknown Tear Drop Cells Not Reportable 07/26/17 Unknown Ovalocytes Not Reportable 07/26/17 Unknown Helmet Cells Not Reportable 07/26/17 Unknown [place] Bodies Not Reportable 07/26/17 Unknown [place] Rings Not Reportable 07/26/17 Unknown [place] Cells Not Reportable 07/26/17 Unknown Bite Cells Not Reportable 07/26/17 Unknown Crenated Cell Not Reportable 07/26/17 Unknown Elliptocytes Not Reportable 07/26/17 Unknown Acanthocytes (Spur) Not Reportable 07/26/17 Unknown Rouleaux Not Reportable 07/26/17 Unknown Hemoglobin C Crystals Not Reportable 07/26/17 Unknown Schistocytes Not Reportable 07/26/17 Unknown Malaria parasites Not Reportable 07/26/17 Unknown Percent Retic 2.42 % (0.78-2.58) 07/19/17 06:05 Roberto Bodies Not Reportable 07/26/17 Unknown Haptoglobin 204 mg/dL (43-212) 07/03/17 09:31 Hem Pathologist Commnt No 07/26/17 Unknown PT 12.5 Sec. (12.2-14.9) 07/03/17 06:19 INR 0.89 (0.87-1.13) 07/03/17 06:19 APTT 24.6 Sec. (24.2-36.6) 07/03/17 09:31 Fibrinogen 350 mg/dl (211-480) 07/03/17 09:31 Lupus Anticoagulant see below H 07/06/17 17:55 LA PTT Baseline 47 sec (<=40) H 07/06/17 17:55 dRVVT Confirm Interp Negative (Negative) 07/06/17 17:55 dRVVT Screen 50:50 See scanned report 07/06/17 17:55 dRVVT Mix Interpret See scanned report 07/06/17 17:55 POC ABG pH 7.459 (7.35-7.45) H 07/13/17 08:26 POC ABG pCO2 40.4 (35-45) 07/13/17 08:26 POC ABG pO2 99 (80-105) 07/13/17 08:26 POC ABG HCO3 28.6 07/13/17 08:26 POC ABG Total CO2 30 07/13/17 08:26 POC ABG O2 Sat 98 07/13/17 08:26 POC ABG Base Excess 5 07/13/17 08:26 VBG pH 7.372 (7.320-7.420) 07/03/17 06:19 FiO2 30 % 07/13/17 08:26 Sodium 138 mmol/L (137-145) 07/26/17 Unknown Potassium 4.6 mmol/L (3.6-5.0) 07/26/17 Unknown Chloride 100.6 mmol/L (98-107) 07/26/17 Unknown Carbon Dioxide 22 mmol/L (22-30) 07/26/17 Unknown Anion Gap 20 mmol/L 07/26/17 Unknown BUN 36 mg/dL (7-17) H 07/26/17 Unknown Creatinine 1.2 mg/dL (0.7-1.2) D 07/26/17 Unknown Estimated GFR 59 ml/min 07/26/17 Unknown BUN/Creatinine Ratio 30 % 07/26/17 Unknown Glucose 123 mg/dL (65-100) H 07/26/17 Unknown POC Glucose 105 (70-105) 07/26/17 06:29 Lactic Acid 0.90 mmol/L (0.7-2.0) 07/06/17 07:28 Calcium 8.4 mg/dL (8.4-10.2) 07/26/17 Unknown Ionized Calcium 5.1 mg/dL (4.8-5.6) 07/07/17 12:21 Phosphorus 4.30 mg/dL (2.5-4.5) 07/24/17 06:49 Magnesium 1.80 mg/dL (1.7-2.3) 07/24/17 06:49 Iron 34 ug/dL (37-170) L 07/19/17 06:05 TIBC 260 mcg/dL (250-450) 07/19/17 06:05 % Saturation 13.08 % 07/19/17 06:05 Transferrin 227 mg/dl (192-382) 07/19/17 06:05 Ferritin 195.3 ng/mL (13.0-400.0) 07/19/17 06:05 Total Bilirubin 0.50 mg/dL (0.1-1.2) 07/26/17 Unknown AST 56 units/L (5-40) H 07/26/17 Unknown ALT 98 units/L (7-56) H 07/26/17 Unknown Alkaline Phosphatase 219 units/L (35-129) H 07/26/17 Unknown Total Creatine Kinase 42 units/L (30-135) 07/27/17 04:16 CK-MB (CK-2) < 1.0 ng/mL (0.0-4.0) 07/27/17 04:16 CK-MB (CK-2) Rel Index 2.3 (0-4) 07/27/17 04:16 Troponin T < 0.010 ng/mL (0.00-0.029) 07/27/17 04:16 C-Reactive Protein 10.30 mg/dL (0.00-1.30) H 07/12/17 17:01 NT-Pro-B Natriuret Pep 114.4 pg/mL (0-450) 07/07/17 12:21 Total Protein 7.6 g/dL (6.3-8.2) 07/26/17 Unknown Albumin 3.7 g/dL (3.9-5) L 07/26/17 Unknown Albumin/Globulin Ratio 0.9 % 07/26/17 Unknown Prealbumin 0.670 g/L (0.200-0.400) H 07/24/17 06:49 Triglycerides 103 mg/dL (2-149) 07/05/17 22:04 Lipase 18 units/L (13-60) 07/03/17 05:28 Vitamin B12 1373 pg/mL (211-911) H 07/19/17 06:05 Folate 10.31 ng/mL (7.3-26.0) 07/19/17 06:05 TSH 0.561 mlU/mL (0.270-4.200) 07/04/17 14:38 HCG, Qual Negative (Negative) 07/03/17 06:19 HCG, Quant < 2 mIU/mL (0-4) 07/05/17 15:50 PTH Intact 285.9 pg/mL (15-65) H 07/06/17 07:28 Urine Color Yellow (Yellow) 07/05/17 Unknown Urine Turbidity Clear (Clear) 07/05/17 Unknown Urine pH 5.0 (5.0-7.0) 07/05/17 Unknown Ur Specific [place] 1.021 (1.003-1.030) 07/05/17 Unknown Urine Protein 100 mg/dl mg/dL (Negative) 07/05/17 Unknown Urine Glucose (UA) 50 mg/dL (Negative) 07/05/17 Unknown Urine Ketones Tr mg/dL (Negative) 07/05/17 Unknown Urine Blood Sm (Negative) 07/05/17 Unknown Urine Nitrite Neg (Negative) 07/05/17 Unknown Urine Bilirubin Neg (Negative) 07/05/17 Unknown Urine Urobilinogen < 2.0 mg/dL (<2.0) 07/05/17 Unknown Ur Leukocyte Esterase Tr (Negative) 07/05/17 Unknown Urine WBC (Auto) < 1.0 /HPF (0.0-6.0) 07/05/17 Unknown Urine RBC (Auto) 10.0 /HPF (0.0-6.0) 07/05/17 Unknown U Epithel Cells (Auto) 9.0 /HPF (0-13.0) 07/05/17 Unknown Urine Bacteria (Auto) 2+ /HPF (Negative) 07/05/17 Unknown Urine Mucus Few /HPF 07/03/17 Unknown Urine Eosinophils None seen (None Seen) 07/05/17 Unknown Urine Creatinine 237.2 mg/dL (0.1-20.0) H 07/05/17 Unknown Urine Microalbumin 39.9 mg/dL (0.1-34.0) H 07/05/17 Unknown Microalb/Creat Ratio 168.2 ug/mg 07/05/17 Unknown Urine Sodium 18 mmol/L 07/05/17 Unknown Urine Total Protein 170 mg/dL (5-11.8) H 07/05/17 Unknown [place] Screen Negative (Negative) 07/06/17 17:55 Proteinase 3 (PR3) Ab <1.0 AI (<1.0) 07/06/17 17:55 Myeloperoxidase Ab <1.0 AI (<1.0) 07/06/17 17:55 Complement C3 77 mg/dL (83-193) L 07/06/17 17:55 Complement C4 16 mg/dL (15-57) 07/06/17 17:55 Hepatitis A IgM Ab Non-reactive (NonReactive) 07/06/17 18:07 Hep Bs Antigen Non-reactive (Negative) 07/06/17 18:07 Hep B Core IgM Ab Non-reactive (NonReactive) 07/06/17 18:07 Hepatitis C Antibody Non-reactive (NonReactive) 07/06/17 18:07 HIV 1&2 Antibody Rapid Non react (Non React) 07/06/17 18:09 HIV P24 Antigen Non react (Non React) 07/06/17 18:09 Blood Type O POSITIVE 07/21/17 15:15 Antibody Screen Negative 07/21/17 15:15 Crossmatch See Detail 07/21/17 15:15
[2017-07-27] MEDS: DIOVAN PO SCH ×2 (11:43→23:24)
[2017-07-27] MEDS: CATAPRES PO SCH (11:44)
[2017-07-27] MEDS: NORVASC PO SCH (11:44)
[2017-07-27] MEDS: PEPCID PO SCH ×2 (11:44→22:50)
[2017-07-27] MEDS: TRANSDERM-SCOP TD SCH (11:45)
[2017-07-27] MEDS: COREG PO SCH ×2 (11:52→23:23)
[2017-07-27 12:41] LABS: Creatine Kinase MB < 1.0 ng/mL (0.0-4.0)
[2017-07-27] MEDS ORDERED: NACL 0.9% 500 ML 500 ML IV ONE (16:45)
[2017-07-28] MEDS: MORPHINE IV PRN (04:26)
[2017-07-28] MEDS: HEPARIN SUB-Q SCH ×3 (05:47→22:01)
[2017-07-28] MEDS: PERCOCET 5/325 PO PRN ×4 (08:34→21:57)
--- NOTE | 2017-07-28 10:05 | Progress Note ---
Assessment and Plan Assessment and plan: 42 yo F with hx of HTN noncompliance presented to hospital with acute onset abdominal pain, n/v, diarrhea. CT A/P showed ileus vs enterocolitis. She was observed for 24 hours but her abdominal pain worsened and exam was concerning for peritonitis and surgical abdomen. She was taken to the OR for Diagnostic laparoscopy, converted to exploratory laparotomy, small bowel resection, right hemicolectomy. Severe Sepsis due to gangrenous bowel; s/p removal of near complete small intestine; completed abx per ID EMMA secondary to vasomotor nephropathy with underlying ATN; resolved Peritoneal irritation due to infected bowel, resolved Severe Anemia, Transfuse as need, for far 5 units transfused Ischemic/Gangrenous Bowel, s/p resection, may need TPN lifelong. Surgery placed on low carb diet and plan to hold TPN for a week, if tolerates and then may d/ c home w/o TPN. Check prealbumin tomorrow and a week later to compare. But if prealbumin declines and pt develops diarrhea then will need TPN lifelong. Discontinued TPN and monitoring for 1 week as recommended by Surg Luekocytosis, from sepsis, resolved Hypertensive urgency-resolved Menorraghia secondary to Fibroids Etoh use disorder, now stable, no sign of withdrawl Right liver lesion? Hemangioma, outpt f/u Multiple electrolyte abnormalities, repleted Hypothermia from sepsis-Resolved Cocaine abuse per history Malnutrition. May need lifelong TPN due to near total small bowel resection. Positive Lupus anticoagulant, consulted hematology and recommended to f/u outpt DVT prophylaxis. Heparin Full code status Discussed with Dr. Pérez, Surgeon few days ago. He recommends keep inpatient and repeat Pre-albumin level on Sunday, 07/31 History Interval history: Feels better, Tolerating diet Less abdominal pain, Hospitalist Physical - Physical exam Narrative exam: General: Not in acute distress, lying in bed HEENT:Normocephalic, atraumatic Neck:supple,no JVD Lungs: Clear to auscultation bilaterally, no crackles, no wheeze Heart:S1 and S2 regular, no murmurs, rubs or gallop Abd: soft, mild tender, no rebound tenderness, surgical wound midline.normal bowel sounds Ext: No edema, no clubbing, no cyanosis Neuro: AAO x 3, moves all extremities. - Constitutional Vitals: Temp Pulse Resp BP Pulse Ox 98.7 F 74 18 92/59 100 07/28/17 04:50 07/28/17 04:50 07/28/17 04:50 07/28/17 04:50 07/28/17 04:50 General appearance: Present: no acute distress, obese Results - Labs CBC & Chem 7: 07/26/17 Unknown 07/26/17 Unknown Labs: Laboratory Last Values WBC 8.1 K/mm3 (4.5-11.0) 07/26/17 Unknown RBC 3.74 M/mm3 (3.65-5.03) 07/26/17 Unknown Hgb 9.5 gm/dl (10.1-14.3) L 07/26/17 Unknown Hct 29.2 % (30.3-42.9) L 07/26/17 Unknown MCV 78 fl (79-97) L 07/26/17 Unknown MCH 25 pg (28-32) L 07/26/17 Unknown MCHC 33 % (30-34) 07/26/17 Unknown RDW 26.9 % (13.2-15.2) H 07/26/17 Unknown Plt Count 314 K/mm3 (140-440) 07/26/17 Unknown Lymph % (Auto) Clinical Project Assistant 07/20/17 12:30 [place] % (Auto) Clinical Project Assistant 07/20/17 12:30 Eos % (Auto) Clinical Project Assistant 07/20/17 12:30 Baso % (Auto) Clinical Project Assistant 07/20/17 12:30 Lymph # Clinical Project Assistant 07/20/17 12:30 [place] # Clinical Project Assistant 07/20/17 12:30 Eos # Clinical Project Assistant 07/20/17 12:30 Baso # Clinical Project Assistant 07/20/17 12:30 Add Manual Diff Complete 07/26/17 Unknown Total Counted 100 07/26/17 Unknown Seg Neutrophils % Clinical Project Assistant 07/20/17 12:30 Seg Neuts % (Manual) 71.0 % (40.0-70.0) H 07/26/17 Unknown Band Neutrophils % 0 % 07/26/17 Unknown Lymphocytes % (Manual) 17.0 % (13.4-35.0) 07/26/17 Unknown Reactive Lymphs % (Man) 0 % 07/26/17 Unknown Monocytes % (Manual) 10.0 % (0.0-7.3) H 07/26/17 Unknown Eosinophils % (Manual) 2.0 % (0.0-4.3) 07/26/17 Unknown Basophils % (Manual) 0 % (0.0-1.8) 07/26/17 Unknown Metamyelocytes % 0 % 07/26/17 Unknown Myelocytes % 0 % 07/26/17 Unknown Promyelocytes % 0 % 07/26/17 Unknown Blast Cells % 0 % 07/26/17 Unknown Nucleated RBC % Not Reportable 07/26/17 Unknown Seg Neutrophils # Clinical Project Assistant 07/20/17 12:30 Seg Neutrophils # Man 5.8 K/mm3 (1.8-7.7) 07/26/17 Unknown Band Neutrophils # 0.0 K/mm3 07/26/17 Unknown Lymphocytes # (Manual) 1.4 K/mm3 (1.2-5.4) 07/26/17 Unknown Abs React Lymphs (Man) 0.0 K/mm3 07/26/17 Unknown Monocytes # (Manual) 0.8 K/mm3 (0.0-0.8) 07/26/17 Unknown Eosinophils # (Manual) 0.2 K/mm3 (0.0-0.4) 07/26/17 Unknown Basophils # (Manual) 0.0 K/mm3 (0.0-0.1) 07/26/17 Unknown Metamyelocytes # 0.0 K/mm3 07/26/17 Unknown Myelocytes # 0.0 K/mm3 07/26/17 Unknown Promyelocytes # 0.0 K/mm3 07/26/17 Unknown Blast Cells # 0.0 K/mm3 07/26/17 Unknown Pathologist Review 07/04/17 04:39 WBC Morphology Not Reportable 07/26/17 Unknown Hypersegmented Neuts Not Reportable 07/26/17 Unknown Hyposegmented Neuts Not Reportable 07/26/17 Unknown Hypogranular Neuts Not Reportable 07/26/17 Unknown Smudge Cells Not Reportable 07/26/17 Unknown Toxic Granulation Not Reportable 07/26/17 Unknown Toxic Vacuolation Not Reportable 07/26/17 Unknown Dohle Bodies Not Reportable 07/26/17 Unknown Pelger-Huet Anomaly Not Reportable 07/26/17 Unknown Irma Rods Not Reportable 07/26/17 Unknown Platelet Estimate Appears normal 07/26/17 Unknown Clumped Platelets Not Reportable 07/26/17 Unknown Plt Clumps, EDTA Not Reportable 07/26/17 Unknown Large Platelets Not Reportable 07/26/17 Unknown Giant Platelets Not Reportable 07/26/17 Unknown Platelet Satelliting Not Reportable 07/26/17 Unknown Plt Morphology Comment Not Reportable 07/26/17 Unknown RBC Morphology Not Reportable 07/26/17 Unknown Dimorphic RBCs Not Reportable 07/26/17 Unknown Polychromasia Not Reportable 07/26/17 Unknown Hypochromasia 1+ 07/26/17 Unknown Poikilocytosis 2+ 07/26/17 Unknown Anisocytosis 3+ 07/26/17 Unknown Microcytosis 1+ 07/26/17 Unknown Macrocytosis Not Reportable 07/26/17 Unknown Spherocytes Not Reportable 07/26/17 Unknown Pappenheimer Bodies Not Reportable 07/26/17 Unknown Sickle Cells Not Reportable 07/26/17 Unknown Target Cells Rare 07/26/17 Unknown Tear Drop Cells Not Reportable 07/26/17 Unknown Ovalocytes Not Reportable 07/26/17 Unknown Helmet Cells Not Reportable 07/26/17 Unknown [place] Bodies Not Reportable 07/26/17 Unknown [place] Rings Not Reportable 07/26/17 Unknown [place] Cells Not Reportable 07/26/17 Unknown Bite Cells Not Reportable 07/26/17 Unknown Crenated Cell Not Reportable 07/26/17 Unknown Elliptocytes Not Reportable 07/26/17 Unknown Acanthocytes (Spur) Not Reportable 07/26/17 Unknown Rouleaux Not Reportable 07/26/17 Unknown Hemoglobin C Crystals Not Reportable 07/26/17 Unknown Schistocytes Not Reportable 07/26/17 Unknown Malaria parasites Not Reportable 07/26/17 Unknown Percent Retic 2.42 % (0.78-2.58) 07/19/17 06:05 Roberto Bodies Not Reportable 07/26/17 Unknown Haptoglobin 204 mg/dL (43-212) 07/03/17 09:31 Hem Pathologist Commnt No 07/26/17 Unknown PT 12.5 Sec. (12.2-14.9) 07/03/17 06:19 INR 0.89 (0.87-1.13) 07/03/17 06:19 APTT 24.6 Sec. (24.2-36.6) 07/03/17 09:31 Fibrinogen 350 mg/dl (211-480) 07/03/17 09:31 Lupus Anticoagulant see below H 07/06/17 17:55 LA PTT Baseline 47 sec (<=40) H 07/06/17 17:55 dRVVT Confirm Interp Negative (Negative) 07/06/17 17:55 dRVVT Screen 50:50 See scanned report 07/06/17 17:55 dRVVT Mix Interpret See scanned report 07/06/17 17:55 POC ABG pH 7.459 (7.35-7.45) H 07/13/17 08:26 POC ABG pCO2 40.4 (35-45) 07/13/17 08:26 POC ABG pO2 99 (80-105) 07/13/17 08:26 POC ABG HCO3 28.6 07/13/17 08:26 POC ABG Total CO2 30 07/13/17 08:26 POC ABG O2 Sat 98 07/13/17 08:26 POC ABG Base Excess 5 07/13/17 08:26 VBG pH 7.372 (7.320-7.420) 07/03/17 06:19 FiO2 30 % 07/13/17 08:26 Sodium 138 mmol/L (137-145) 07/26/17 Unknown Potassium 4.6 mmol/L (3.6-5.0) 07/26/17 Unknown Chloride 100.6 mmol/L (98-107) 07/26/17 Unknown Carbon Dioxide 22 mmol/L (22-30) 07/26/17 Unknown Anion Gap 20 mmol/L 07/26/17 Unknown BUN 36 mg/dL (7-17) H 07/26/17 Unknown Creatinine 1.2 mg/dL (0.7-1.2) D 07/26/17 Unknown Estimated GFR 59 ml/min 07/26/17 Unknown BUN/Creatinine Ratio 30 % 07/26/17 Unknown Glucose 123 mg/dL (65-100) H 07/26/17 Unknown POC Glucose 105 (70-105) 07/26/17 06:29 Lactic Acid 0.90 mmol/L (0.7-2.0) 07/06/17 07:28 Calcium 8.4 mg/dL (8.4-10.2) 07/26/17 Unknown Ionized Calcium 5.1 mg/dL (4.8-5.6) 07/07/17 12:21 Phosphorus 4.30 mg/dL (2.5-4.5) 07/24/17 06:49 Magnesium 1.80 mg/dL (1.7-2.3) 07/24/17 06:49 Iron 34 ug/dL (37-170) L 07/19/17 06:05 TIBC 260 mcg/dL (250-450) 07/19/17 06:05 % Saturation 13.08 % 07/19/17 06:05 Transferrin 227 mg/dl (192-382) 07/19/17 06:05 Ferritin 195.3 ng/mL (13.0-400.0) 07/19/17 06:05 Total Bilirubin 0.50 mg/dL (0.1-1.2) 07/26/17 Unknown AST 56 units/L (5-40) H 07/26/17 Unknown ALT 98 units/L (7-56) H 07/26/17 Unknown Alkaline Phosphatase 219 units/L (35-129) H 07/26/17 Unknown Total Creatine Kinase 38 units/L (30-135) 07/27/17 11:30 CK-MB (CK-2) < 1.0 ng/mL (0.0-4.0) 07/27/17 11:30 CK-MB (CK-2) Rel Index 2.6 (0-4) 07/27/17 11:30 Troponin T < 0.010 ng/mL (0.00-0.029) 07/27/17 11:30 C-Reactive Protein 10.30 mg/dL (0.00-1.30) H 07/12/17 17:01 NT-Pro-B Natriuret Pep 114.4 pg/mL (0-450) 07/07/17 12:21 Total Protein 7.6 g/dL (6.3-8.2) 07/26/17 Unknown Albumin 3.7 g/dL (3.9-5) L 07/26/17 Unknown Albumin/Globulin Ratio 0.9 % 07/26/17 Unknown Prealbumin 0.670 g/L (0.200-0.400) H 07/24/17 06:49 Triglycerides 103 mg/dL (2-149) 07/05/17 22:04 Lipase 18 units/L (13-60) 07/03/17 05:28 Vitamin B12 1373 pg/mL (211-911) H 07/19/17 06:05 Folate 10.31 ng/mL (7.3-26.0) 07/19/17 06:05 TSH 0.561 mlU/mL (0.270-4.200) 07/04/17 14:38 HCG, Qual Negative (Negative) 07/03/17 06:19 HCG, Quant < 2 mIU/mL (0-4) 07/05/17 15:50 PTH Intact 285.9 pg/mL (15-65) H 07/06/17 07:28 Urine Color Yellow (Yellow) 07/05/17 Unknown Urine Turbidity Clear (Clear) 07/05/17 Unknown Urine pH 5.0 (5.0-7.0) 07/05/17 Unknown Ur Specific [place] 1.021 (1.003-1.030) 07/05/17 Unknown Urine Protein 100 mg/dl mg/dL (Negative) 07/05/17 Unknown Urine Glucose (UA) 50 mg/dL (Negative) 07/05/17 Unknown Urine Ketones Tr mg/dL (Negative) 07/05/17 Unknown Urine Blood Sm (Negative) 07/05/17 Unknown Urine Nitrite Neg (Negative) 07/05/17 Unknown Urine Bilirubin Neg (Negative) 07/05/17 Unknown Urine Urobilinogen < 2.0 mg/dL (<2.0) 07/05/17 Unknown Ur Leukocyte Esterase Tr (Negative) 07/05/17 Unknown Urine WBC (Auto) < 1.0 /HPF (0.0-6.0) 07/05/17 Unknown Urine RBC (Auto) 10.0 /HPF (0.0-6.0) 07/05/17 Unknown U Epithel Cells (Auto) 9.0 /HPF (0-13.0) 07/05/17 Unknown Urine Bacteria (Auto) 2+ /HPF (Negative) 07/05/17 Unknown Urine Mucus Few /HPF 07/03/17 Unknown Urine Eosinophils None seen (None Seen) 07/05/17 Unknown Urine Creatinine 237.2 mg/dL (0.1-20.0) H 07/05/17 Unknown Urine Microalbumin 39.9 mg/dL (0.1-34.0) H 07/05/17 Unknown Microalb/Creat Ratio 168.2 ug/mg 07/05/17 Unknown Urine Sodium 18 mmol/L 07/05/17 Unknown Urine Total Protein 170 mg/dL (5-11.8) H 07/05/17 Unknown [place] Screen Negative (Negative) 07/06/17 17:55 Proteinase 3 (PR3) Ab <1.0 AI (<1.0) 07/06/17 17:55 Myeloperoxidase Ab <1.0 AI (<1.0) 07/06/17 17:55 Complement C3 77 mg/dL (83-193) L 07/06/17 17:55 Complement C4 16 mg/dL (15-57) 07/06/17 17:55 Hepatitis A IgM Ab Non-reactive (NonReactive) 07/06/17 18:07 Hep Bs Antigen Non-reactive (Negative) 07/06/17 18:07 Hep B Core IgM Ab Non-reactive (NonReactive) 07/06/17 18:07 Hepatitis C Antibody Non-reactive (NonReactive) 07/06/17 18:07 HIV 1&2 Antibody Rapid Non react (Non React) 07/06/17 18:09 HIV P24 Antigen Non react (Non React) 07/06/17 18:09 Blood Type O POSITIVE 07/21/17 15:15 Antibody Screen Negative 07/21/17 15:15 Crossmatch See Detail 07/21/17 15:15
[2017-07-28] MEDS: NORVASC PO SCH (10:45)
[2017-07-28] MEDS: PEPCID PO SCH ×2 (10:45→22:01)
[2017-07-28] MEDS: COREG PO SCH ×2 (10:45→22:00)
[2017-07-28] MEDS: DIOVAN PO SCH ×2 (10:47→22:00)
[2017-07-28] MEDS: ZOFRAN IV PRN (17:48)
[2017-07-29] MEDS: PERCOCET 5/325 PO PRN ×4 (04:42→20:10)
[2017-07-29] MEDS: HEPARIN SUB-Q SCH ×2 (07:07→13:18)
--- NOTE | 2017-07-29 09:34 | Progress Note ---
Assessment and Plan Assessment and plan: 42 yo F with hx of HTN noncompliance presented to hospital with acute onset abdominal pain, n/v, diarrhea. CT A/P showed ileus vs enterocolitis. She was observed for 24 hours but her abdominal pain worsened and exam was concerning for peritonitis and surgical abdomen. She was taken to the OR for Diagnostic laparoscopy, converted to exploratory laparotomy, small bowel resection, right hemicolectomy. Severe Sepsis due to gangrenous bowel; s/p removal of near complete small intestine; completed abx per ID EMMA secondary to vasomotor nephropathy with underlying ATN; resolved Peritoneal irritation due to infected bowel, resolved Severe Anemia, Transfuse as need, for far 5 units transfused Ischemic/Gangrenous Bowel, s/p resection, may need TPN lifelong. Surgery placed on low carb diet and plan to hold TPN for a week, if tolerates and then may d/ c home w/o TPN. Check prealbumin tomorrow and a week later to compare. But if prealbumin declines and pt develops diarrhea then will need TPN lifelong. Discontinued TPN and monitoring for 1 week as recommended by Surg Luekocytosis, from sepsis, resolved Hypertensive urgency-resolved Menorraghia secondary to Fibroids Etoh use disorder, now stable, no sign of withdrawl Right liver lesion? Hemangioma, outpt f/u Multiple electrolyte abnormalities, repleted Hypothermia from sepsis-Resolved Cocaine abuse per history Malnutrition. May need lifelong TPN due to near total small bowel resection. Positive Lupus anticoagulant, consulted hematology and recommended to f/u outpt DVT prophylaxis. Heparin Full code status Discussed with Dr. Pérez, Surgeon few days ago. He recommends keep inpatient and repeat Pre-albumin level on Sunday, 07/31 History Interval history: Feels better, Tolerating diet Less abdominal pain, Hospitalist Physical - Physical exam Narrative exam: General: Not in acute distress, lying in bed HEENT:Normocephalic, atraumatic Neck:supple,no JVD Lungs: Clear to auscultation bilaterally, no crackles, no wheeze Heart:S1 and S2 regular, no murmurs, rubs or gallop Abd: soft, mild tender, no rebound tenderness, surgical wound midline.normal bowel sounds Ext: No edema, no clubbing, no cyanosis Neuro: AAO x 3, moves all extremities. - Constitutional Vitals: Temp Pulse Resp BP Pulse Ox 98.7 F 71 16 108/53 100 07/29/17 03:25 07/29/17 03:25 07/29/17 03:25 07/29/17 03:25 07/29/17 03:25 General appearance: Present: no acute distress, obese Results - Labs CBC & Chem 7: 07/26/17 Unknown 07/26/17 Unknown Labs: Laboratory Last Values WBC 8.1 K/mm3 (4.5-11.0) 07/26/17 Unknown RBC 3.74 M/mm3 (3.65-5.03) 07/26/17 Unknown Hgb 9.5 gm/dl (10.1-14.3) L 07/26/17 Unknown Hct 29.2 % (30.3-42.9) L 07/26/17 Unknown MCV 78 fl (79-97) L 07/26/17 Unknown MCH 25 pg (28-32) L 07/26/17 Unknown MCHC 33 % (30-34) 07/26/17 Unknown RDW 26.9 % (13.2-15.2) H 07/26/17 Unknown Plt Count 314 K/mm3 (140-440) 07/26/17 Unknown Lymph % (Auto) [employer] Application Developer 07/20/17 12:30 [place] % (Auto) [employer] Application Developer 07/20/17 12:30 Eos % (Auto) [employer] Application Developer 07/20/17 12:30 Baso % (Auto) [employer] Application Developer 07/20/17 12:30 Lymph # [employer] Application Developer 07/20/17 12:30 [place] # [employer] Application Developer 07/20/17 12:30 Eos # [employer] Application Developer 07/20/17 12:30 Baso # [employer] Application Developer 07/20/17 12:30 Add Manual Diff Complete 07/26/17 Unknown Total Counted 100 07/26/17 Unknown Seg Neutrophils % [employer] Application Developer 07/20/17 12:30 Seg Neuts % (Manual) 71.0 % (40.0-70.0) H 07/26/17 Unknown Band Neutrophils % 0 % 07/26/17 Unknown Lymphocytes % (Manual) 17.0 % (13.4-35.0) 07/26/17 Unknown Reactive Lymphs % (Man) 0 % 07/26/17 Unknown Monocytes % (Manual) 10.0 % (0.0-7.3) H 07/26/17 Unknown Eosinophils % (Manual) 2.0 % (0.0-4.3) 07/26/17 Unknown Basophils % (Manual) 0 % (0.0-1.8) 07/26/17 Unknown Metamyelocytes % 0 % 07/26/17 Unknown Myelocytes % 0 % 07/26/17 Unknown Promyelocytes % 0 % 07/26/17 Unknown Blast Cells % 0 % 07/26/17 Unknown Nucleated RBC % Not Reportable 07/26/17 Unknown Seg Neutrophils # [employer] Application Developer 07/20/17 12:30 Seg Neutrophils # Man 5.8 K/mm3 (1.8-7.7) 07/26/17 Unknown Band Neutrophils # 0.0 K/mm3 07/26/17 Unknown Lymphocytes # (Manual) 1.4 K/mm3 (1.2-5.4) 07/26/17 Unknown Abs React Lymphs (Man) 0.0 K/mm3 07/26/17 Unknown Monocytes # (Manual) 0.8 K/mm3 (0.0-0.8) 07/26/17 Unknown Eosinophils # (Manual) 0.2 K/mm3 (0.0-0.4) 07/26/17 Unknown Basophils # (Manual) 0.0 K/mm3 (0.0-0.1) 07/26/17 Unknown Metamyelocytes # 0.0 K/mm3 07/26/17 Unknown Myelocytes # 0.0 K/mm3 07/26/17 Unknown Promyelocytes # 0.0 K/mm3 07/26/17 Unknown Blast Cells # 0.0 K/mm3 07/26/17 Unknown Pathologist Review 07/04/17 04:39 WBC Morphology Not Reportable 07/26/17 Unknown Hypersegmented Neuts Not Reportable 07/26/17 Unknown Hyposegmented Neuts Not Reportable 07/26/17 Unknown Hypogranular Neuts Not Reportable 07/26/17 Unknown Smudge Cells Not Reportable 07/26/17 Unknown Toxic Granulation Not Reportable 07/26/17 Unknown Toxic Vacuolation Not Reportable 07/26/17 Unknown Dohle Bodies Not Reportable 07/26/17 Unknown Pelger-Huet Anomaly Not Reportable 07/26/17 Unknown Irma Rods Not Reportable 07/26/17 Unknown Platelet Estimate Appears normal 07/26/17 Unknown Clumped Platelets Not Reportable 07/26/17 Unknown Plt Clumps, EDTA Not Reportable 07/26/17 Unknown Large Platelets Not Reportable 07/26/17 Unknown Giant Platelets Not Reportable 07/26/17 Unknown Platelet Satelliting Not Reportable 07/26/17 Unknown Plt Morphology Comment Not Reportable 07/26/17 Unknown RBC Morphology Not Reportable 07/26/17 Unknown Dimorphic RBCs Not Reportable 07/26/17 Unknown Polychromasia Not Reportable 07/26/17 Unknown Hypochromasia 1+ 07/26/17 Unknown Poikilocytosis 2+ 07/26/17 Unknown Anisocytosis 3+ 07/26/17 Unknown Microcytosis 1+ 07/26/17 Unknown Macrocytosis Not Reportable 07/26/17 Unknown Spherocytes Not Reportable 07/26/17 Unknown Pappenheimer Bodies Not Reportable 07/26/17 Unknown Sickle Cells Not Reportable 07/26/17 Unknown Target Cells Rare 07/26/17 Unknown Tear Drop Cells Not Reportable 07/26/17 Unknown Ovalocytes Not Reportable 07/26/17 Unknown Helmet Cells Not Reportable 07/26/17 Unknown Barber-Machias Bodies Not Reportable 07/26/17 Unknown [place] Rings Not Reportable 07/26/17 Unknown Breaks Cells Not Reportable 07/26/17 Unknown Bite Cells Not Reportable 07/26/17 Unknown Crenated Cell Not Reportable 07/26/17 Unknown Elliptocytes Not Reportable 07/26/17 Unknown Acanthocytes (Spur) Not Reportable 07/26/17 Unknown Rouleaux Not Reportable 07/26/17 Unknown Hemoglobin C Crystals Not Reportable 07/26/17 Unknown Schistocytes Not Reportable 07/26/17 Unknown Malaria parasites Not Reportable 07/26/17 Unknown Percent Retic 2.42 % (0.78-2.58) 07/19/17 06:05 Roberto Bodies Not Reportable 07/26/17 Unknown Haptoglobin 204 mg/dL (43-212) 07/03/17 09:31 Hem Pathologist Commnt No 07/26/17 Unknown PT 12.5 Sec. (12.2-14.9) 07/03/17 06:19 INR 0.89 (0.87-1.13) 07/03/17 06:19 APTT 24.6 Sec. (24.2-36.6) 07/03/17 09:31 Fibrinogen 350 mg/dl (211-480) 07/03/17 09:31 Lupus Anticoagulant see below H 07/06/17 17:55 LA PTT Baseline 47 sec (<=40) H 07/06/17 17:55 dRVVT Confirm Interp Negative (Negative) 07/06/17 17:55 dRVVT Screen 50:50 See scanned report 07/06/17 17:55 dRVVT Mix Interpret See scanned report 07/06/17 17:55 POC ABG pH 7.459 (7.35-7.45) H 07/13/17 08:26 POC ABG pCO2 40.4 (35-45) 07/13/17 08:26 POC ABG pO2 99 (80-105) 07/13/17 08:26 POC ABG HCO3 28.6 07/13/17 08:26 POC ABG Total CO2 30 07/13/17 08:26 POC ABG O2 Sat 98 07/13/17 08:26 POC ABG Base Excess 5 07/13/17 08:26 VBG pH 7.372 (7.320-7.420) 07/03/17 06:19 FiO2 30 % 07/13/17 08:26 Sodium 138 mmol/L (137-145) 07/26/17 Unknown Potassium 4.6 mmol/L (3.6-5.0) 07/26/17 Unknown Chloride 100.6 mmol/L (98-107) 07/26/17 Unknown Carbon Dioxide 22 mmol/L (22-30) 07/26/17 Unknown Anion Gap 20 mmol/L 07/26/17 Unknown BUN 36 mg/dL (7-17) H 07/26/17 Unknown Creatinine 1.2 mg/dL (0.7-1.2) D 07/26/17 Unknown Estimated GFR 59 ml/min 07/26/17 Unknown BUN/Creatinine Ratio 30 % 07/26/17 Unknown Glucose 123 mg/dL (65-100) H 07/26/17 Unknown POC Glucose 105 (70-105) 07/26/17 06:29 Lactic Acid 0.90 mmol/L (0.7-2.0) 07/06/17 07:28 Calcium 8.4 mg/dL (8.4-10.2) 07/26/17 Unknown Ionized Calcium 5.1 mg/dL (4.8-5.6) 07/07/17 12:21 Phosphorus 4.30 mg/dL (2.5-4.5) 07/24/17 06:49 Magnesium 1.80 mg/dL (1.7-2.3) 07/24/17 06:49 Iron 34 ug/dL (37-170) L 07/19/17 06:05 TIBC 260 mcg/dL (250-450) 07/19/17 06:05 % Saturation 13.08 % 07/19/17 06:05 Transferrin 227 mg/dl (192-382) 07/19/17 06:05 Ferritin 195.3 ng/mL (13.0-400.0) 07/19/17 06:05 Total Bilirubin 0.50 mg/dL (0.1-1.2) 07/26/17 Unknown AST 56 units/L (5-40) H 07/26/17 Unknown ALT 98 units/L (7-56) H 07/26/17 Unknown Alkaline Phosphatase 219 units/L (35-129) H 07/26/17 Unknown Total Creatine Kinase 38 units/L (30-135) 07/27/17 11:30 CK-MB (CK-2) < 1.0 ng/mL (0.0-4.0) 07/27/17 11:30 CK-MB (CK-2) Rel Index 2.6 (0-4) 07/27/17 11:30 Troponin T < 0.010 ng/mL (0.00-0.029) 07/27/17 11:30 C-Reactive Protein 10.30 mg/dL (0.00-1.30) H 07/12/17 17:01 NT-Pro-B Natriuret Pep 114.4 pg/mL (0-450) 07/07/17 12:21 Total Protein 7.6 g/dL (6.3-8.2) 07/26/17 Unknown Albumin 3.7 g/dL (3.9-5) L 07/26/17 Unknown Albumin/Globulin Ratio 0.9 % 07/26/17 Unknown Prealbumin 0.670 g/L (0.200-0.400) H 07/24/17 06:49 Triglycerides 103 mg/dL (2-149) 07/05/17 22:04 Lipase 18 units/L (13-60) 07/03/17 05:28 Vitamin B12 1373 pg/mL (211-911) H 07/19/17 06:05 Folate 10.31 ng/mL (7.3-26.0) 07/19/17 06:05 TSH 0.561 mlU/mL (0.270-4.200) 07/04/17 14:38 HCG, Qual Negative (Negative) 07/03/17 06:19 HCG, Quant < 2 mIU/mL (0-4) 07/05/17 15:50 PTH Intact 285.9 pg/mL (15-65) H 07/06/17 07:28 Urine Color Yellow (Yellow) 07/05/17 Unknown Urine Turbidity Clear (Clear) 07/05/17 Unknown Urine pH 5.0 (5.0-7.0) 07/05/17 Unknown Ur Specific [place] 1.021 (1.003-1.030) 07/05/17 Unknown Urine Protein 100 mg/dl mg/dL (Negative) 07/05/17 Unknown Urine Glucose (UA) 50 mg/dL (Negative) 07/05/17 Unknown Urine Ketones Tr mg/dL (Negative) 07/05/17 Unknown Urine Blood Sm (Negative) 07/05/17 Unknown Urine Nitrite Neg (Negative) 07/05/17 Unknown Urine Bilirubin Neg (Negative) 07/05/17 Unknown Urine Urobilinogen < 2.0 mg/dL (<2.0) 07/05/17 Unknown Ur Leukocyte Esterase Tr (Negative) 07/05/17 Unknown Urine WBC (Auto) < 1.0 /HPF (0.0-6.0) 07/05/17 Unknown Urine RBC (Auto) 10.0 /HPF (0.0-6.0) 07/05/17 Unknown U Epithel Cells (Auto) 9.0 /HPF (0-13.0) 07/05/17 Unknown Urine Bacteria (Auto) 2+ /HPF (Negative) 07/05/17 Unknown Urine Mucus Few /HPF 07/03/17 Unknown Urine Eosinophils None seen (None Seen) 07/05/17 Unknown Urine Creatinine 237.2 mg/dL (0.1-20.0) H 07/05/17 Unknown Urine Microalbumin 39.9 mg/dL (0.1-34.0) H 07/05/17 Unknown Microalb/Creat Ratio 168.2 ug/mg 07/05/17 Unknown Urine Sodium 18 mmol/L 07/05/17 Unknown Urine Total Protein 170 mg/dL (5-11.8) H 07/05/17 Unknown [place] Screen Negative (Negative) 07/06/17 17:55 Proteinase 3 (PR3) Ab <1.0 AI (<1.0) 07/06/17 17:55 Myeloperoxidase Ab <1.0 AI (<1.0) 07/06/17 17:55 Complement C3 77 mg/dL (83-193) L 07/06/17 17:55 Complement C4 16 mg/dL (15-57) 07/06/17 17:55 Hepatitis A IgM Ab Non-reactive (NonReactive) 07/06/17 18:07 Hep Bs Antigen Non-reactive (Negative) 07/06/17 18:07 Hep B Core IgM Ab Non-reactive (NonReactive) 07/06/17 18:07 Hepatitis C Antibody Non-reactive (NonReactive) 07/06/17 18:07 HIV 1&2 Antibody Rapid Non react (Non React) 07/06/17 18:09 HIV P24 Antigen Non react (Non React) 07/06/17 18:09 Blood Type O POSITIVE 07/21/17 15:15 Antibody Screen Negative 07/21/17 15:15 Crossmatch See Detail 07/21/17 15:15
[2017-07-29] MEDS: PEPCID PO SCH (10:13)
[2017-07-29] MEDS: COREG PO SCH ×2 (10:16→22:00)
[2017-07-29] MEDS: DIOVAN PO SCH (10:16)
[2017-07-29] MEDS: NORVASC PO SCH (10:16)
[2017-07-29] MEDS: ZOFRAN IV PRN ×2 (14:50→20:17)
[2017-07-30] MEDS: HEPARIN SUB-Q SCH ×4 (00:03→21:47)
[2017-07-30] MEDS: PEPCID PO SCH ×3 (00:03→21:47)
[2017-07-30] MEDS: PERCOCET 5/325 PO PRN ×3 (00:14→17:57)
[2017-07-30] MEDS: ZOFRAN IV PRN ×3 (06:34→21:46)
[2017-07-30 07:42] LABS: Calcium 9.1 mg/dL (8.4-10.2)
[2017-07-30] MEDS: DIOVAN PO SCH ×3 (08:15→22:56)
--- NOTE | 2017-07-30 09:30 | Progress Note ---
Assessment and Plan Assessment and plan: 42 yo F with hx of HTN noncompliance presented to hospital with acute onset abdominal pain, n/v, diarrhea. CT A/P showed ileus vs enterocolitis. She was observed for 24 hours but her abdominal pain worsened and exam was concerning for peritonitis and surgical abdomen. She was taken to the OR for Diagnostic laparoscopy, converted to exploratory laparotomy, small bowel resection, right hemicolectomy. Severe Sepsis due to gangrenous bowel; s/p removal of near complete small intestine; completed abx per ID EMMA secondary to vasomotor nephropathy with underlying ATN; resolved Peritoneal irritation due to infected bowel, resolved Severe Anemia, Transfuse as need, for far 5 units transfused Ischemic/Gangrenous Bowel, s/p resection, may need TPN lifelong. Surgery placed on low carb diet and plan to hold TPN for a week, if tolerates and then may d/ c home w/o TPN. Check prealbumin 07/31 to compare. But if prealbumin declines and pt develops diarrhea then will need TPN lifelong. Discontinued TPN and monitoring for 1 week as recommended by Surg Luekocytosis, from sepsis, resolved Hypertensive urgency-resolved Menorraghia secondary to Fibroids Etoh use disorder, now stable, no sign of withdrawl Right liver lesion? Hemangioma, outpt f/u Multiple electrolyte abnormalities, repleted Hypothermia from sepsis-Resolved Cocaine abuse per history Malnutrition. May need lifelong TPN due to near total small bowel resection. Positive Lupus anticoagulant, consulted hematology and recommended to f/u outpt DVT prophylaxis. Heparin Full code status Discussed with Dr. Pérez, Surgeon few days ago. He recommends keep inpatient and repeat Pre-albumin level on Sunday, 07/31 History Interval history: Feels better, Tolerating diet Less abdominal pain, Hospitalist Physical - Physical exam Narrative exam: General: Not in acute distress, lying in bed HEENT:Normocephalic, atraumatic Neck:supple,no JVD Lungs: Clear to auscultation bilaterally, no crackles, no wheeze Heart:S1 and S2 regular, no murmurs, rubs or gallop Abd: soft, mild tender, no rebound tenderness, surgical wound midline.normal bowel sounds Ext: No edema, no clubbing, no cyanosis Neuro: AAO x 3, moves all extremities. - Constitutional Vitals: Temp Pulse Resp BP Pulse Ox 98.5 F 58 L 20 120/61 99 07/30/17 07:24 07/30/17 08:15 07/30/17 07:24 07/30/17 08:15 07/30/17 07:24 General appearance: Present: no acute distress, obese Results - Labs CBC & Chem 7: 07/26/17 Unknown 07/30/17 06:45 Labs: Laboratory Last Values WBC 8.1 K/mm3 (4.5-11.0) 07/26/17 Unknown RBC 3.74 M/mm3 (3.65-5.03) 07/26/17 Unknown Hgb 9.5 gm/dl (10.1-14.3) L 07/26/17 Unknown Hct 29.2 % (30.3-42.9) L 07/26/17 Unknown MCV 78 fl (79-97) L 07/26/17 Unknown MCH 25 pg (28-32) L 07/26/17 Unknown MCHC 33 % (30-34) 07/26/17 Unknown RDW 26.9 % (13.2-15.2) H 07/26/17 Unknown Plt Count 314 K/mm3 (140-440) 07/26/17 Unknown Lymph % (Auto) Data Systems Analyst 07/20/17 12:30 [place] % (Auto) Data Systems Analyst 07/20/17 12:30 Eos % (Auto) Data Systems Analyst 07/20/17 12:30 Baso % (Auto) Data Systems Analyst 07/20/17 12:30 Lymph # Data Systems Analyst 07/20/17 12:30 [place] # Data Systems Analyst 07/20/17 12:30 Eos # Data Systems Analyst 07/20/17 12:30 Baso # Data Systems Analyst 07/20/17 12:30 Add Manual Diff Complete 07/26/17 Unknown Total Counted 100 07/26/17 Unknown Seg Neutrophils % Data Systems Analyst 07/20/17 12:30 Seg Neuts % (Manual) 71.0 % (40.0-70.0) H 07/26/17 Unknown Band Neutrophils % 0 % 07/26/17 Unknown Lymphocytes % (Manual) 17.0 % (13.4-35.0) 07/26/17 Unknown Reactive Lymphs % (Man) 0 % 07/26/17 Unknown Monocytes % (Manual) 10.0 % (0.0-7.3) H 07/26/17 Unknown Eosinophils % (Manual) 2.0 % (0.0-4.3) 07/26/17 Unknown Basophils % (Manual) 0 % (0.0-1.8) 07/26/17 Unknown Metamyelocytes % 0 % 07/26/17 Unknown Myelocytes % 0 % 07/26/17 Unknown Promyelocytes % 0 % 07/26/17 Unknown Blast Cells % 0 % 07/26/17 Unknown Nucleated RBC % Not Reportable 07/26/17 Unknown Seg Neutrophils # Data Systems Analyst 07/20/17 12:30 Seg Neutrophils # Man 5.8 K/mm3 (1.8-7.7) 07/26/17 Unknown Band Neutrophils # 0.0 K/mm3 07/26/17 Unknown Lymphocytes # (Manual) 1.4 K/mm3 (1.2-5.4) 07/26/17 Unknown Abs React Lymphs (Man) 0.0 K/mm3 07/26/17 Unknown Monocytes # (Manual) 0.8 K/mm3 (0.0-0.8) 07/26/17 Unknown Eosinophils # (Manual) 0.2 K/mm3 (0.0-0.4) 07/26/17 Unknown Basophils # (Manual) 0.0 K/mm3 (0.0-0.1) 07/26/17 Unknown Metamyelocytes # 0.0 K/mm3 07/26/17 Unknown Myelocytes # 0.0 K/mm3 07/26/17 Unknown Promyelocytes # 0.0 K/mm3 07/26/17 Unknown Blast Cells # 0.0 K/mm3 07/26/17 Unknown Pathologist Review 07/04/17 04:39 WBC Morphology Not Reportable 07/26/17 Unknown Hypersegmented Neuts Not Reportable 07/26/17 Unknown Hyposegmented Neuts Not Reportable 07/26/17 Unknown Hypogranular Neuts Not Reportable 07/26/17 Unknown Smudge Cells Not Reportable 07/26/17 Unknown Toxic Granulation Not Reportable 07/26/17 Unknown Toxic Vacuolation Not Reportable 07/26/17 Unknown Dohle Bodies Not Reportable 07/26/17 Unknown Pelger-Huet Anomaly Not Reportable 07/26/17 Unknown Irma Rods Not Reportable 07/26/17 Unknown Platelet Estimate Appears normal 07/26/17 Unknown Clumped Platelets Not Reportable 07/26/17 Unknown Plt Clumps, EDTA Not Reportable 07/26/17 Unknown Large Platelets Not Reportable 07/26/17 Unknown Giant Platelets Not Reportable 07/26/17 Unknown Platelet Satelliting Not Reportable 07/26/17 Unknown Plt Morphology Comment Not Reportable 07/26/17 Unknown RBC Morphology Not Reportable 07/26/17 Unknown Dimorphic RBCs Not Reportable 07/26/17 Unknown Polychromasia Not Reportable 07/26/17 Unknown Hypochromasia 1+ 07/26/17 Unknown Poikilocytosis 2+ 07/26/17 Unknown Anisocytosis 3+ 07/26/17 Unknown Microcytosis 1+ 07/26/17 Unknown Macrocytosis Not Reportable 07/26/17 Unknown Spherocytes Not Reportable 07/26/17 Unknown Pappenheimer Bodies Not Reportable 07/26/17 Unknown Sickle Cells Not Reportable 07/26/17 Unknown Target Cells Rare 07/26/17 Unknown Tear Drop Cells Not Reportable 07/26/17 Unknown Ovalocytes Not Reportable 07/26/17 Unknown Helmet Cells Not Reportable 07/26/17 Unknown Barber-Be[place] Bodies Not Reportable 07/26/17 Unknown [place] Rings Not Reportable 07/26/17 Unknown [place]ila Cells Not Reportable 07/26/17 Unknown Bite Cells Not Reportable 07/26/17 Unknown Crenated Cell Not Reportable 07/26/17 Unknown Elliptocytes Not Reportable 07/26/17 Unknown Acanthocytes (Spur) Not Reportable 07/26/17 Unknown Rouleaux Not Reportable 07/26/17 Unknown Hemoglobin C Crystals Not Reportable 07/26/17 Unknown Schistocytes Not Reportable 07/26/17 Unknown Malaria parasites Not Reportable 07/26/17 Unknown Percent Retic 2.42 % (0.78-2.58) 07/19/17 06:05 Roberto Bodies Not Reportable 07/26/17 Unknown Haptoglobin 204 mg/dL (43-212) 07/03/17 09:31 Hem Pathologist Commnt No 07/26/17 Unknown PT 12.5 Sec. (12.2-14.9) 07/03/17 06:19 INR 0.89 (0.87-1.13) 07/03/17 06:19 APTT 24.6 Sec. (24.2-36.6) 07/03/17 09:31 Fibrinogen 350 mg/dl (211-480) 07/03/17 09:31 Lupus Anticoagulant see below H 07/06/17 17:55 LA PTT Baseline 47 sec (<=40) H 07/06/17 17:55 dRVVT Confirm Interp Negative (Negative) 07/06/17 17:55 dRVVT Screen 50:50 See scanned report 07/06/17 17:55 dRVVT Mix Interpret See scanned report 07/06/17 17:55 POC ABG pH 7.459 (7.35-7.45) H 07/13/17 08:26 POC ABG pCO2 40.4 (35-45) 07/13/17 08:26 POC ABG pO2 99 (80-105) 07/13/17 08:26 POC ABG HCO3 28.6 07/13/17 08:26 POC ABG Total CO2 30 07/13/17 08:26 POC ABG O2 Sat 98 07/13/17 08:26 POC ABG Base Excess 5 07/13/17 08:26 VBG pH 7.372 (7.320-7.420) 07/03/17 06:19 FiO2 30 % 07/13/17 08:26 Sodium 139 mmol/L (137-145) 07/30/17 06:45 Potassium 4.2 mmol/L (3.6-5.0) 07/30/17 06:45 Chloride 100.7 mmol/L (98-107) 07/30/17 06:45 Carbon Dioxide 19 mmol/L (22-30) L 07/30/17 06:45 Anion Gap 24 mmol/L 07/30/17 06:45 BUN 35 mg/dL (7-17) H 07/30/17 06:45 Creatinine 1.2 mg/dL (0.7-1.2) 07/30/17 06:45 Estimated GFR 59 ml/min 07/30/17 06:45 BUN/Creatinine Ratio 29 % 07/30/17 06:45 Glucose 76 mg/dL (65-100) 07/30/17 06:45 POC Glucose 105 (70-105) 07/26/17 06:29 Lactic Acid 0.90 mmol/L (0.7-2.0) 07/06/17 07:28 Calcium 9.1 mg/dL (8.4-10.2) 07/30/17 06:45 Ionized Calcium 5.1 mg/dL (4.8-5.6) 07/07/17 12:21 Phosphorus 4.30 mg/dL (2.5-4.5) 07/24/17 06:49 Magnesium 1.80 mg/dL (1.7-2.3) 07/24/17 06:49 Iron 34 ug/dL (37-170) L 07/19/17 06:05 TIBC 260 mcg/dL (250-450) 07/19/17 06:05 % Saturation 13.08 % 07/19/17 06:05 Transferrin 227 mg/dl (192-382) 07/19/17 06:05 Ferritin 195.3 ng/mL (13.0-400.0) 07/19/17 06:05 Total Bilirubin 0.50 mg/dL (0.1-1.2) 07/26/17 Unknown AST 56 units/L (5-40) H 07/26/17 Unknown ALT 98 units/L (7-56) H 07/26/17 Unknown Alkaline Phosphatase 219 units/L (35-129) H 07/26/17 Unknown Total Creatine Kinase 38 units/L (30-135) 07/27/17 11:30 CK-MB (CK-2) < 1.0 ng/mL (0.0-4.0) 07/27/17 11:30 CK-MB (CK-2) Rel Index 2.6 (0-4) 07/27/17 11:30 Troponin T < 0.010 ng/mL (0.00-0.029) 07/27/17 11:30 C-Reactive Protein 10.30 mg/dL (0.00-1.30) H 07/12/17 17:01 NT-Pro-B Natriuret Pep 114.4 pg/mL (0-450) 07/07/17 12:21 Total Protein 7.6 g/dL (6.3-8.2) 07/26/17 Unknown Albumin 3.7 g/dL (3.9-5) L 07/26/17 Unknown Albumin/Globulin Ratio 0.9 % 07/26/17 Unknown Prealbumin 0.670 g/L (0.200-0.400) H 07/24/17 06:49 Triglycerides 103 mg/dL (2-149) 07/05/17 22:04 Lipase 18 units/L (13-60) 07/03/17 05:28 Vitamin B12 1373 pg/mL (211-911) H 07/19/17 06:05 Folate 10.31 ng/mL (7.3-26.0) 07/19/17 06:05 TSH 0.561 mlU/mL (0.270-4.200) 07/04/17 14:38 HCG, Qual Negative (Negative) 07/03/17 06:19 HCG, Quant < 2 mIU/mL (0-4) 07/05/17 15:50 PTH Intact 285.9 pg/mL (15-65) H 07/06/17 07:28 Urine Color Yellow (Yellow) 07/05/17 Unknown Urine Turbidity Clear (Clear) 07/05/17 Unknown Urine pH 5.0 (5.0-7.0) 07/05/17 Unknown Ur Specific [place] 1.021 (1.003-1.030) 07/05/17 Unknown Urine Protein 100 mg/dl mg/dL (Negative) 07/05/17 Unknown Urine Glucose (UA) 50 mg/dL (Negative) 07/05/17 Unknown Urine Ketones Tr mg/dL (Negative) 07/05/17 Unknown Urine Blood Sm (Negative) 07/05/17 Unknown Urine Nitrite Neg (Negative) 07/05/17 Unknown Urine Bilirubin Neg (Negative) 07/05/17 Unknown Urine Urobilinogen < 2.0 mg/dL (<2.0) 07/05/17 Unknown Ur Leukocyte Esterase Tr (Negative) 07/05/17 Unknown Urine WBC (Auto) < 1.0 /HPF (0.0-6.0) 07/05/17 Unknown Urine RBC (Auto) 10.0 /HPF (0.0-6.0) 07/05/17 Unknown U Epithel Cells (Auto) 9.0 /HPF (0-13.0) 07/05/17 Unknown Urine Bacteria (Auto) 2+ /HPF (Negative) 07/05/17 Unknown Urine Mucus Few /HPF 07/03/17 Unknown Urine Eosinophils None seen (None Seen) 07/05/17 Unknown Urine Creatinine 237.2 mg/dL (0.1-20.0) H 07/05/17 Unknown Urine Microalbumin 39.9 mg/dL (0.1-34.0) H 07/05/17 Unknown Microalb/Creat Ratio 168.2 ug/mg 07/05/17 Unknown Urine Sodium 18 mmol/L 07/05/17 Unknown Urine Total Protein 170 mg/dL (5-11.8) H 07/05/17 Unknown [place] Screen Negative (Negative) 07/06/17 17:55 Proteinase 3 (PR3) Ab <1.0 AI (<1.0) 07/06/17 17:55 Myeloperoxidase Ab <1.0 AI (<1.0) 07/06/17 17:55 Complement C3 77 mg/dL (83-193) L 07/06/17 17:55 Complement C4 16 mg/dL (15-57) 07/06/17 17:55 Hepatitis A IgM Ab Non-reactive (NonReactive) 07/06/17 18:07 Hep Bs Antigen Non-reactive (Negative) 07/06/17 18:07 Hep B Core IgM Ab Non-reactive (NonReactive) 07/06/17 18:07 Hepatitis C Antibody Non-reactive (NonReactive) 07/06/17 18:07 HIV 1&2 Antibody Rapid Non react (Non React) 07/06/17 18:09 HIV P24 Antigen Non react (Non React) 07/06/17 18:09 Blood Type O POSITIVE 07/21/17 15:15 Antibody Screen Negative 07/21/17 15:15 Crossmatch See Detail 07/21/17 15:15
[2017-07-30] MEDS: MORPHINE IV PRN ×2 (12:42→22:49)
[2017-07-30] MEDS: TRANSDERM-SCOP TD SCH (12:56)
[2017-07-30] MEDS: COREG PO SCH ×2 (12:59→22:56)
[2017-07-30] MEDS: NORVASC PO SCH (12:59)
[2017-07-31] MEDS: PERCOCET 5/325 PO PRN ×2 (02:31→11:00)
[2017-07-31] MEDS: HEPARIN SUB-Q SCH ×3 (06:47→21:27)
[2017-07-31] MEDS: MORPHINE IV PRN ×3 (06:48→21:27)
[2017-07-31] MEDS: ZOFRAN IV PRN ×2 (06:52→16:21)
--- NOTE | 2017-07-31 09:18 | Progress Note ---
Assessment and Plan - Patient Problems (1) Ischemia, bowel Current Visit: Yes Status: Acute Plan to address problem: Pt stable. s/p enteroenterostomy and closure of abdominal wall - 07/09 - POD#22. - Unfortunately, despite the patient's best efforts, she is not able to absorb enough nutrients. Not surprising in light of her short gut status. The prealbumin took a sharp drop. She will need lifelong TPN. She may have any diet as tolerated for comfort. - Incision looks good. No clinical signs to suggest anastomotic leak Please call with questions. Will follow peripherally. Subjective Date of service: 07/31/17 Patient Reports: Positive: no new complaints (Pt reports that she has been eating as much as she can. Having some cramps. Bowel movements are not too frequent. ). Negative: nausea, vomiting Objective Vital Signs - 12hr 07/30/17 07/30/17 21:40 22:56 Temperature 99.2 F Pulse Rate 86 72 Respiratory 16 Rate Blood Pressure 116/67 116/64 O2 Sat by Pulse 100 Oximetry - General physical appearance no distress, no pain - Eyes normal occular movement - Respiratory normal expansion, normal respiratory effort - Abdomen soft, tender (mild tenderness noted. ), bowel sounds hypoactive, distended (mild ), not guarding, not rigid, wound (Incision C/D/I) - Psychiatric oriented to time, oriented to person, oriented to place, speech is normal, memory intact - Labs 07/26/17 Unknown 07/30/17 06:45
--- NOTE | 2017-07-31 09:26 | Progress Note ---
Assessment and Plan Assessment and plan: 42 yo F with hx of HTN noncompliance presented to hospital with acute onset abdominal pain, n/v, diarrhea. CT A/P showed ileus vs enterocolitis. She was observed for 24 hours but her abdominal pain worsened and exam was concerning for peritonitis and surgical abdomen. She was taken to the OR for Diagnostic laparoscopy, converted to exploratory laparotomy, small bowel resection, right hemicolectomy. Severe Sepsis due to gangrenous bowel; s/p removal of near complete small intestine; completed abx per ID EMMA secondary to vasomotor nephropathy with underlying ATN; now resolved Peritoneal irritation due to infected bowel, resolved Severe Anemia, Transfuse as need, for far 5 units transfused Ischemic/Gangrenous Bowel, s/p resection, may need TPN lifelong. Surgery placed on low carb diet and held TPN for a week. pre-albumin was checked today 0.28 lower than 0.76 last week, therefore patient eeds TPN. I discussed with Dr. Pérez. I also discussed with Case management. Luekocytosis, from sepsis, resolved Hypertensive urgency-resolved Menorraghia secondary to Fibroids Etoh use disorder, now stable, no sign of withdrawl Right liver lesion? Hemangioma, outpt f/u Multiple electrolyte abnormalities, repleted Hypothermia from sepsis-Resolved Cocaine abuse per history Malnutrition. To resume TPN today as per Surg. May need lifelong TPN due to near total small bowel resection. Positive Lupus anticoagulant, consulted hematology and recommended to f/u outpt DVT prophylaxis. Heparin Full code status History Interval history: Feels better, Less abdominal pain, no fever Hospitalist Physical - Physical exam Narrative exam: General: Not in acute distress, lying in bed HEENT:Normocephalic, atraumatic Neck:supple,no JVD Lungs: Clear to auscultation bilaterally, no crackles, no wheeze Heart:S1 and S2 regular, no murmurs, rubs or gallop Abd: soft, mild tender, no rebound tenderness, surgical wound midline.normal bowel sounds Ext: No edema, no clubbing, no cyanosis Neuro: AAO x 3, moves all extremities. - Constitutional Vitals: Temp Pulse Resp BP Pulse Ox 99.2 F 72 16 116/64 100 07/30/17 21:40 07/30/17 22:56 07/30/17 21:40 07/30/17 22:56 07/30/17 21:40 General appearance: Present: no acute distress Results - Labs CBC & Chem 7: 07/26/17 Unknown 07/30/17 06:45 Labs: Laboratory Last Values WBC 8.1 K/mm3 (4.5-11.0) 07/26/17 Unknown RBC 3.74 M/mm3 (3.65-5.03) 07/26/17 Unknown Hgb 9.5 gm/dl (10.1-14.3) L 07/26/17 Unknown Hct 29.2 % (30.3-42.9) L 07/26/17 Unknown MCV 78 fl (79-97) L 07/26/17 Unknown MCH 25 pg (28-32) L 07/26/17 Unknown MCHC 33 % (30-34) 07/26/17 Unknown RDW 26.9 % (13.2-15.2) H 07/26/17 Unknown Plt Count 314 K/mm3 (140-440) 07/26/17 Unknown Lymph % (Auto) Time Study Engineer 07/20/17 12:30 [place] % (Auto) Time Study Engineer 07/20/17 12:30 Eos % (Auto) Time Study Engineer 07/20/17 12:30 Baso % (Auto) Time Study Engineer 07/20/17 12:30 Lymph # Time Study Engineer 07/20/17 12:30 [place] # Time Study Engineer 07/20/17 12:30 Eos # Time Study Engineer 07/20/17 12:30 Baso # Time Study Engineer 07/20/17 12:30 Add Manual Diff Complete 07/26/17 Unknown Total Counted 100 07/26/17 Unknown Seg Neutrophils % Time Study Engineer 07/20/17 12:30 Seg Neuts % (Manual) 71.0 % (40.0-70.0) H 07/26/17 Unknown Band Neutrophils % 0 % 07/26/17 Unknown Lymphocytes % (Manual) 17.0 % (13.4-35.0) 07/26/17 Unknown Reactive Lymphs % (Man) 0 % 07/26/17 Unknown Monocytes % (Manual) 10.0 % (0.0-7.3) H 07/26/17 Unknown Eosinophils % (Manual) 2.0 % (0.0-4.3) 07/26/17 Unknown Basophils % (Manual) 0 % (0.0-1.8) 07/26/17 Unknown Metamyelocytes % 0 % 07/26/17 Unknown Myelocytes % 0 % 07/26/17 Unknown Promyelocytes % 0 % 07/26/17 Unknown Blast Cells % 0 % 07/26/17 Unknown Nucleated RBC % Not Reportable 07/26/17 Unknown Seg Neutrophils # Time Study Engineer 07/20/17 12:30 Seg Neutrophils # Man 5.8 K/mm3 (1.8-7.7) 07/26/17 Unknown Band Neutrophils # 0.0 K/mm3 07/26/17 Unknown Lymphocytes # (Manual) 1.4 K/mm3 (1.2-5.4) 07/26/17 Unknown Abs React Lymphs (Man) 0.0 K/mm3 07/26/17 Unknown Monocytes # (Manual) 0.8 K/mm3 (0.0-0.8) 07/26/17 Unknown Eosinophils # (Manual) 0.2 K/mm3 (0.0-0.4) 07/26/17 Unknown Basophils # (Manual) 0.0 K/mm3 (0.0-0.1) 07/26/17 Unknown Metamyelocytes # 0.0 K/mm3 07/26/17 Unknown Myelocytes # 0.0 K/mm3 07/26/17 Unknown Promyelocytes # 0.0 K/mm3 07/26/17 Unknown Blast Cells # 0.0 K/mm3 07/26/17 Unknown Pathologist Review 07/04/17 04:39 WBC Morphology Not Reportable 07/26/17 Unknown Hypersegmented Neuts Not Reportable 07/26/17 Unknown Hyposegmented Neuts Not Reportable 07/26/17 Unknown Hypogranular Neuts Not Reportable 07/26/17 Unknown Smudge Cells Not Reportable 07/26/17 Unknown Toxic Granulation Not Reportable 07/26/17 Unknown Toxic Vacuolation Not Reportable 07/26/17 Unknown Dohle Bodies Not Reportable 07/26/17 Unknown Pelger-Huet Anomaly Not Reportable 07/26/17 Unknown Irma Rods Not Reportable 07/26/17 Unknown Platelet Estimate Appears normal 07/26/17 Unknown Clumped Platelets Not Reportable 07/26/17 Unknown Plt Clumps, EDTA Not Reportable 07/26/17 Unknown Large Platelets Not Reportable 07/26/17 Unknown Giant Platelets Not Reportable 07/26/17 Unknown Platelet Satelliting Not Reportable 07/26/17 Unknown Plt Morphology Comment Not Reportable 07/26/17 Unknown RBC Morphology Not Reportable 07/26/17 Unknown Dimorphic RBCs Not Reportable 07/26/17 Unknown Polychromasia Not Reportable 07/26/17 Unknown Hypochromasia 1+ 07/26/17 Unknown Poikilocytosis 2+ 07/26/17 Unknown Anisocytosis 3+ 07/26/17 Unknown Microcytosis 1+ 07/26/17 Unknown Macrocytosis Not Reportable 07/26/17 Unknown Spherocytes Not Reportable 07/26/17 Unknown Pappenheimer Bodies Not Reportable 07/26/17 Unknown Sickle Cells Not Reportable 07/26/17 Unknown Target Cells Rare 07/26/17 Unknown Tear Drop Cells Not Reportable 07/26/17 Unknown Ovalocytes Not Reportable 07/26/17 Unknown Helmet Cells Not Reportable 07/26/17 Unknown [place] Bodies Not Reportable 07/26/17 Unknown [place] Rings Not Reportable 07/26/17 Unknown Jamila Cells Not Reportable 07/26/17 Unknown Bite Cells Not Reportable 07/26/17 Unknown Crenated Cell Not Reportable 07/26/17 Unknown Elliptocytes Not Reportable 07/26/17 Unknown Acanthocytes (Spur) Not Reportable 07/26/17 Unknown Rouleaux Not Reportable 07/26/17 Unknown Hemoglobin C Crystals Not Reportable 07/26/17 Unknown Schistocytes Not Reportable 07/26/17 Unknown Malaria parasites Not Reportable 07/26/17 Unknown Percent Retic 2.42 % (0.78-2.58) 07/19/17 06:05 Roberto Bodies Not Reportable 07/26/17 Unknown Haptoglobin 204 mg/dL (43-212) 07/03/17 09:31 Hem Pathologist Commnt No 07/26/17 Unknown PT 12.5 Sec. (12.2-14.9) 07/03/17 06:19 INR 0.89 (0.87-1.13) 07/03/17 06:19 APTT 24.6 Sec. (24.2-36.6) 07/03/17 09:31 Fibrinogen 350 mg/dl (211-480) 07/03/17 09:31 Lupus Anticoagulant see below H 07/06/17 17:55 LA PTT Baseline 47 sec (<=40) H 07/06/17 17:55 dRVVT Confirm Interp Negative (Negative) 07/06/17 17:55 dRVVT Screen 50:50 See scanned report 07/06/17 17:55 dRVVT Mix Interpret See scanned report 07/06/17 17:55 POC ABG pH 7.459 (7.35-7.45) H 07/13/17 08:26 POC ABG pCO2 40.4 (35-45) 07/13/17 08:26 POC ABG pO2 99 (80-105) 07/13/17 08:26 POC ABG HCO3 28.6 07/13/17 08:26 POC ABG Total CO2 30 07/13/17 08:26 POC ABG O2 Sat 98 07/13/17 08:26 POC ABG Base Excess 5 07/13/17 08:26 VBG pH 7.372 (7.320-7.420) 07/03/17 06:19 FiO2 30 % 07/13/17 08:26 Sodium 139 mmol/L (137-145) 07/30/17 06:45 Potassium 4.2 mmol/L (3.6-5.0) 07/30/17 06:45 Chloride 100.7 mmol/L (98-107) 07/30/17 06:45 Carbon Dioxide 19 mmol/L (22-30) L 07/30/17 06:45 Anion Gap 24 mmol/L 07/30/17 06:45 BUN 35 mg/dL (7-17) H 07/30/17 06:45 Creatinine 1.2 mg/dL (0.7-1.2) 07/30/17 06:45 Estimated GFR 59 ml/min 07/30/17 06:45 BUN/Creatinine Ratio 29 % 07/30/17 06:45 Glucose 76 mg/dL (65-100) 07/30/17 06:45 POC Glucose 105 (70-105) 07/26/17 06:29 Lactic Acid 0.90 mmol/L (0.7-2.0) 07/06/17 07:28 Calcium 9.1 mg/dL (8.4-10.2) 07/30/17 06:45 Ionized Calcium 5.1 mg/dL (4.8-5.6) 07/07/17 12:21 Phosphorus 4.30 mg/dL (2.5-4.5) 07/24/17 06:49 Magnesium 1.80 mg/dL (1.7-2.3) 07/24/17 06:49 Iron 34 ug/dL (37-170) L 07/19/17 06:05 TIBC 260 mcg/dL (250-450) 07/19/17 06:05 % Saturation 13.08 % 07/19/17 06:05 Transferrin 227 mg/dl (192-382) 07/19/17 06:05 Ferritin 195.3 ng/mL (13.0-400.0) 07/19/17 06:05 Total Bilirubin 0.50 mg/dL (0.1-1.2) 07/26/17 Unknown AST 56 units/L (5-40) H 07/26/17 Unknown ALT 98 units/L (7-56) H 07/26/17 Unknown Alkaline Phosphatase 219 units/L (35-129) H 07/26/17 Unknown Total Creatine Kinase 38 units/L (30-135) 07/27/17 11:30 CK-MB (CK-2) < 1.0 ng/mL (0.0-4.0) 07/27/17 11:30 CK-MB (CK-2) Rel Index 2.6 (0-4) 07/27/17 11:30 Troponin T < 0.010 ng/mL (0.00-0.029) 07/27/17 11:30 C-Reactive Protein 10.30 mg/dL (0.00-1.30) H 07/12/17 17:01 NT-Pro-B Natriuret Pep 114.4 pg/mL (0-450) 07/07/17 12:21 Total Protein 7.6 g/dL (6.3-8.2) 07/26/17 Unknown Albumin 3.7 g/dL (3.9-5) L 07/26/17 Unknown Albumin/Globulin Ratio 0.9 % 07/26/17 Unknown Prealbumin 0.280 g/L (0.200-0.400) 07/31/17 07:15 Triglycerides 103 mg/dL (2-149) 07/05/17 22:04 Lipase 18 units/L (13-60) 07/03/17 05:28 Vitamin B12 1373 pg/mL (211-911) H 07/19/17 06:05 Folate 10.31 ng/mL (7.3-26.0) 07/19/17 06:05 TSH 0.561 mlU/mL (0.270-4.200) 07/04/17 14:38 HCG, Qual Negative (Negative) 07/03/17 06:19 HCG, Quant < 2 mIU/mL (0-4) 07/05/17 15:50 PTH Intact 285.9 pg/mL (15-65) H 07/06/17 07:28 Urine Color Yellow (Yellow) 07/05/17 Unknown Urine Turbidity Clear (Clear) 07/05/17 Unknown Urine pH 5.0 (5.0-7.0) 07/05/17 Unknown Ur Specific [place] 1.021 (1.003-1.030) 07/05/17 Unknown Urine Protein 100 mg/dl mg/dL (Negative) 07/05/17 Unknown Urine Glucose (UA) 50 mg/dL (Negative) 07/05/17 Unknown Urine Ketones Tr mg/dL (Negative) 07/05/17 Unknown Urine Blood Sm (Negative) 07/05/17 Unknown Urine Nitrite Neg (Negative) 07/05/17 Unknown Urine Bilirubin Neg (Negative) 07/05/17 Unknown Urine Urobilinogen < 2.0 mg/dL (<2.0) 07/05/17 Unknown Ur Leukocyte Esterase Tr (Negative) 07/05/17 Unknown Urine WBC (Auto) < 1.0 /HPF (0.0-6.0) 07/05/17 Unknown Urine RBC (Auto) 10.0 /HPF (0.0-6.0) 07/05/17 Unknown U Epithel Cells (Auto) 9.0 /HPF (0-13.0) 07/05/17 Unknown Urine Bacteria (Auto) 2+ /HPF (Negative) 07/05/17 Unknown Urine Mucus Few /HPF 07/03/17 Unknown Urine Eosinophils None seen (None Seen) 07/05/17 Unknown Urine Creatinine 237.2 mg/dL (0.1-20.0) H 07/05/17 Unknown Urine Microalbumin 39.9 mg/dL (0.1-34.0) H 07/05/17 Unknown Microalb/Creat Ratio 168.2 ug/mg 05/03/18 Unknown Urine Sodium 18 mmol/L 07/05/17 Unknown Urine Total Protein 170 mg/dL (5-11.8) H 07/05/17 Unknown [place] Screen Negative (Negative) 07/06/17 17:55 Proteinase 3 (PR3) Ab <1.0 AI (<1.0) 07/06/17 17:55 Myeloperoxidase Ab <1.0 AI (<1.0) 07/06/17 17:55 Complement C3 77 mg/dL (83-193) L 07/06/17 17:55 Complement C4 16 mg/dL (15-57) 07/06/17 17:55 Hepatitis A IgM Ab Non-reactive (NonReactive) 07/06/17 18:07 Hep Bs Antigen Non-reactive (Negative) 07/06/17 18:07 Hep B Core IgM Ab Non-reactive (NonReactive) 07/06/17 18:07 Hepatitis C Antibody Non-reactive (NonReactive) 07/06/17 18:07 HIV 1&2 Antibody Rapid Non react (Non React) 07/06/17 18:09 HIV P24 Antigen Non react (Non React) 07/06/17 18:09 Blood Type O POSITIVE 07/21/17 15:15 Antibody Screen Negative 07/21/17 15:15 Crossmatch See Detail 07/21/17 15:15
[2017-07-31] MEDS: PEPCID PO SCH ×2 (11:01→21:26)
[2017-07-31] MEDS: COREG PO SCH ×2 (11:01→22:00)
[2017-07-31] MEDS: NORVASC PO SCH (11:02)
[2017-07-31] MEDS: DIOVAN PO SCH ×2 (11:02→22:00)
--- NOTE | 2017-07-31 15:14 | Event Note ---
Date: 07/31/17 I went to update the patient on the pre-albumin level. I explained that the level was very low. It indicates that despite her best effort, she is unable to absorb enough nutrients. She would have to be on TPN for life. Otherwise, her body would breakdown and she would end up back in the hospital with severe malnutrition. She asked if she could go home. I explained to her that she can leave at any time. She is not a prisoner here. We were just trying to help her. She was appreciative. At this point, we will sign off. Please call if there are any questions. Thank you.
[2017-08-01] MEDS: ZOFRAN IV PRN ×4 (01:57→23:36)
[2017-08-01] MEDS: MORPHINE IV PRN ×5 (01:58→22:55)
[2017-08-01] MEDS: HEPARIN SUB-Q SCH ×3 (06:05→22:55)
[2017-08-01] MEDS: COREG PO SCH ×2 (10:11→22:05)
[2017-08-01] MEDS: DIOVAN PO SCH ×2 (10:11→22:05)
[2017-08-01] MEDS: NORVASC PO SCH (10:12)
[2017-08-01] MEDS: PEPCID PO SCH ×2 (10:21→21:56)
--- NOTE | 2017-08-01 11:49 | Progress Note ---
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 Surgery placed on low carb diet and held TPN for a week. pre-albumin remains low, therefore patient needs TPN. I discussed with Dr. Pérez. I also discussed with Case management. Leukocytosis, from sepsis, resolved Hypertensive urgency-resolved Menorraghia secondary to Fibroids Etoh use disorder, now stable, no sign of withdrawl Right liver lesion? Hemangioma, outpt f/u Multiple electrolyte abnormalities, repleted Hypothermia from sepsis-Resolved Cocaine abuse per history Malnutrition. To resume TPN today as per Surg. May need lifelong TPN due to near total small bowel resection. Positive Lupus anticoagulant, consulted hematology and recommended to f/u outpt DVT prophylaxis. Heparin Full code status History Interval history: No new issues overnight Hospitalist Physical - Constitutional Vitals: Temp Pulse Resp BP Pulse Ox 99.0 F 109 H 20 102/66 98 08/01/17 07:43 08/01/17 07:43 08/01/17 07:43 08/01/17 10:12 08/01/17 07:43 General appearance: Present: no acute distress - EENT Eyes: Present: PERRL, EOM intact ENT: hearing intact, clear oral mucosa, dentition normal - Neck Neck: Present: supple, normal ROM - Respiratory Respiratory effort: normal Respiratory: bilateral: CTA - Cardiovascular Rhythm: regular Heart Sounds: Present: S1 & S2. Absent: gallop, rub - Extremities Extremities: no ischemia, No edema, Full ROM - Abdominal General gastrointestinal: soft, non-tender, non-distended, normal bowel sounds - Integumentary Integumentary: Present: clear, warm, dry - Neurologic Neurologic: CNII-XII intact, moves all extremities Results - Labs CBC & Chem 7: 07/26/17 Unknown 07/30/17 06:45 Labs: Laboratory Last Values WBC 8.1 K/mm3 (4.5-11.0) 07/26/17 Unknown RBC 3.74 M/mm3 (3.65-5.03) 07/26/17 Unknown Hgb 9.5 gm/dl (10.1-14.3) L 07/26/17 Unknown Hct 29.2 % (30.3-42.9) L 07/26/17 Unknown MCV 78 fl (79-97) L 07/26/17 Unknown MCH 25 pg (28-32) L 07/26/17 Unknown MCHC 33 % (30-34) 07/26/17 Unknown RDW 26.9 % (13.2-15.2) H 07/26/17 Unknown Plt Count 314 K/mm3 (140-440) 07/26/17 Unknown Lymph % (Auto) Fruit Grower 07/20/17 12:30 [place] % (Auto) Fruit Grower 07/20/17 12:30 Eos % (Auto) Fruit Grower 07/20/17 12:30 Baso % (Auto) Fruit Grower 07/20/17 12:30 Lymph # Fruit Grower 07/20/17 12:30 [place] # Fruit Grower 07/20/17 12:30 Eos # Fruit Grower 07/20/17 12:30 Baso # Fruit Grower 07/20/17 12:30 Add Manual Diff Complete 07/26/17 Unknown Total Counted 100 07/26/17 Unknown Seg Neutrophils % Fruit Grower 07/20/17 12:30 Seg Neuts % (Manual) 71.0 % (40.0-70.0) H 07/26/17 Unknown Band Neutrophils % 0 % 07/26/17 Unknown Lymphocytes % (Manual) 17.0 % (13.4-35.0) 07/26/17 Unknown Reactive Lymphs % (Man) 0 % 07/26/17 Unknown Monocytes % (Manual) 10.0 % (0.0-7.3) H 07/26/17 Unknown Eosinophils % (Manual) 2.0 % (0.0-4.3) 07/26/17 Unknown Basophils % (Manual) 0 % (0.0-1.8) 07/26/17 Unknown Metamyelocytes % 0 % 07/26/17 Unknown Myelocytes % 0 % 07/26/17 Unknown Promyelocytes % 0 % 07/26/17 Unknown Blast Cells % 0 % 07/26/17 Unknown Nucleated RBC % Not Reportable 07/26/17 Unknown Seg Neutrophils # Fruit Grower 07/20/17 12:30 Seg Neutrophils # Man 5.8 K/mm3 (1.8-7.7) 07/26/17 Unknown Band Neutrophils # 0.0 K/mm3 07/26/17 Unknown Lymphocytes # (Manual) 1.4 K/mm3 (1.2-5.4) 07/26/17 Unknown Abs React Lymphs (Man) 0.0 K/mm3 07/26/17 Unknown Monocytes # (Manual) 0.8 K/mm3 (0.0-0.8) 07/26/17 Unknown Eosinophils # (Manual) 0.2 K/mm3 (0.0-0.4) 07/26/17 Unknown Basophils # (Manual) 0.0 K/mm3 (0.0-0.1) 07/26/17 Unknown Metamyelocytes # 0.0 K/mm3 07/26/17 Unknown Myelocytes # 0.0 K/mm3 07/26/17 Unknown Promyelocytes # 0.0 K/mm3 07/26/17 Unknown Blast Cells # 0.0 K/mm3 07/26/17 Unknown Pathologist Review 07/04/17 04:39 WBC Morphology Not Reportable 07/26/17 Unknown Hypersegmented Neuts Not Reportable 07/26/17 Unknown Hyposegmented Neuts Not Reportable 07/26/17 Unknown Hypogranular Neuts Not Reportable 07/26/17 Unknown Smudge Cells Not Reportable 07/26/17 Unknown Toxic Granulation Not Reportable 07/26/17 Unknown Toxic Vacuolation Not Reportable 07/26/17 Unknown Dohle Bodies Not Reportable 07/26/17 Unknown Pelger-Huet Anomaly Not Reportable 07/26/17 Unknown Irma Rods Not Reportable 07/26/17 Unknown Platelet Estimate Appears normal 07/26/17 Unknown Clumped Platelets Not Reportable 07/26/17 Unknown Plt Clumps, EDTA Not Reportable 07/26/17 Unknown Large Platelets Not Reportable 07/26/17 Unknown Giant Platelets Not Reportable 07/26/17 Unknown Platelet Satelliting Not Reportable 07/26/17 Unknown Plt Morphology Comment Not Reportable 07/26/17 Unknown RBC Morphology Not Reportable 07/26/17 Unknown Dimorphic RBCs Not Reportable 07/26/17 Unknown Polychromasia Not Reportable 07/26/17 Unknown Hypochromasia 1+ 07/26/17 Unknown Poikilocytosis 2+ 07/26/17 Unknown Anisocytosis 3+ 07/26/17 Unknown Microcytosis 1+ 07/26/17 Unknown Macrocytosis Not Reportable 07/26/17 Unknown Spherocytes Not Reportable 07/26/17 Unknown Pappenheimer Bodies Not Reportable 07/26/17 Unknown Sickle Cells Not Reportable 07/26/17 Unknown Target Cells Rare 07/26/17 Unknown Tear Drop Cells Not Reportable 07/26/17 Unknown Ovalocytes Not Reportable 07/26/17 Unknown Helmet Cells Not Reportable 07/26/17 Unknown [place] Bodies Not Reportable 07/26/17 Unknown [place] Rings Not Reportable 07/26/17 Unknown [place] Cells Not Reportable 07/26/17 Unknown Bite Cells Not Reportable 07/26/17 Unknown Crenated Cell Not Reportable 07/26/17 Unknown Elliptocytes Not Reportable 07/26/17 Unknown Acanthocytes (Spur) Not Reportable 07/26/17 Unknown Rouleaux Not Reportable 07/26/17 Unknown Hemoglobin C Crystals Not Reportable 07/26/17 Unknown Schistocytes Not Reportable 07/26/17 Unknown Malaria parasites Not Reportable 07/26/17 Unknown Percent Retic 2.42 % (0.78-2.58) 07/19/17 06:05 Roberto Bodies Not Reportable 07/26/17 Unknown Haptoglobin 204 mg/dL (43-212) 07/03/17 09:31 Hem Pathologist Commnt No 07/26/17 Unknown PT 12.5 Sec. (12.2-14.9) 07/03/17 06:19 INR 0.89 (0.87-1.13) 07/03/17 06:19 APTT 24.6 Sec. (24.2-36.6) 07/03/17 09:31 Fibrinogen 350 mg/dl (211-480) 07/03/17 09:31 Lupus Anticoagulant see below H 07/06/17 17:55 LA PTT Baseline 47 sec (<=40) H 07/06/17 17:55 dRVVT Confirm Interp Negative (Negative) 07/06/17 17:55 dRVVT Screen 50:50 See scanned report 07/06/17 17:55 dRVVT Mix Interpret See scanned report 07/06/17 17:55 POC ABG pH 7.459 (7.35-7.45) H 07/13/17 08:26 POC ABG pCO2 40.4 (35-45) 07/13/17 08:26 POC ABG pO2 99 (80-105) 07/13/17 08:26 POC ABG HCO3 28.6 07/13/17 08:26 POC ABG Total CO2 30 07/13/17 08:26 POC ABG O2 Sat 98 07/13/17 08:26 POC ABG Base Excess 5 07/13/17 08:26 VBG pH 7.372 (7.320-7.420) 07/03/17 06:19 FiO2 30 % 07/13/17 08:26 Sodium 139 mmol/L (137-145) 07/30/17 06:45 Potassium 4.2 mmol/L (3.6-5.0) 07/30/17 06:45 Chloride 100.7 mmol/L (98-107) 07/30/17 06:45 Carbon Dioxide 19 mmol/L (22-30) L 07/30/17 06:45 Anion Gap 24 mmol/L 07/30/17 06:45 BUN 35 mg/dL (7-17) H 07/30/17 06:45 Creatinine 1.2 mg/dL (0.7-1.2) 07/30/17 06:45 Estimated GFR 59 ml/min 07/30/17 06:45 BUN/Creatinine Ratio 29 % 07/30/17 06:45 Glucose 76 mg/dL (65-100) 07/30/17 06:45 POC Glucose 105 (70-105) 07/26/17 06:29 Lactic Acid 0.90 mmol/L (0.7-2.0) 07/06/17 07:28 Calcium 9.1 mg/dL (8.4-10.2) 07/30/17 06:45 Ionized Calcium 5.1 mg/dL (4.8-5.6) 07/07/17 12:21 Phosphorus 4.30 mg/dL (2.5-4.5) 07/24/17 06:49 Magnesium 1.80 mg/dL (1.7-2.3) 07/24/17 06:49 Iron 34 ug/dL (37-170) L 07/19/17 06:05 TIBC 260 mcg/dL (250-450) 07/19/17 06:05 % Saturation 13.08 % 07/19/17 06:05 Transferrin 227 mg/dl (192-382) 07/19/17 06:05 Ferritin 195.3 ng/mL (13.0-400.0) 07/19/17 06:05 Total Bilirubin 0.50 mg/dL (0.1-1.2) 07/26/17 Unknown AST 56 units/L (5-40) H 07/26/17 Unknown ALT 98 units/L (7-56) H 07/26/17 Unknown Alkaline Phosphatase 219 units/L (35-129) H 07/26/17 Unknown Total Creatine Kinase 38 units/L (30-135) 07/27/17 11:30 CK-MB (CK-2) < 1.0 ng/mL (0.0-4.0) 07/27/17 11:30 CK-MB (CK-2) Rel Index 2.6 (0-4) 07/27/17 11:30 Troponin T < 0.010 ng/mL (0.00-0.029) 07/27/17 11:30 C-Reactive Protein 10.30 mg/dL (0.00-1.30) H 07/12/17 17:01 NT-Pro-B Natriuret Pep 114.4 pg/mL (0-450) 07/07/17 12:21 Total Protein 7.6 g/dL (6.3-8.2) 07/26/17 Unknown Albumin 3.7 g/dL (3.9-5) L 07/26/17 Unknown Albumin/Globulin Ratio 0.9 % 07/26/17 Unknown Prealbumin 0.280 g/L (0.200-0.400) 07/31/17 07:15 Triglycerides 103 mg/dL (2-149) 07/05/17 22:04 Lipase 18 units/L (13-60) 07/03/17 05:28 Vitamin B12 1373 pg/mL (211-911) H 07/19/17 06:05 Folate 10.31 ng/mL (7.3-26.0) 07/19/17 06:05 TSH 0.561 mlU/mL (0.270-4.200) 07/04/17 14:38 HCG, Qual Negative (Negative) 07/03/17 06:19 HCG, Quant < 2 mIU/mL (0-4) 07/05/17 15:50 PTH Intact 285.9 pg/mL (15-65) H 07/06/17 07:28 Urine Color Yellow (Yellow) 07/05/17 Unknown Urine Turbidity Clear (Clear) 07/05/17 Unknown Urine pH 5.0 (5.0-7.0) 07/05/17 Unknown Ur Specific [place] 1.021 (1.003-1.030) 07/05/17 Unknown Urine Protein 100 mg/dl mg/dL (Negative) 07/05/17 Unknown Urine Glucose (UA) 50 mg/dL (Negative) 07/05/17 Unknown Urine Ketones Tr mg/dL (Negative) 07/05/17 Unknown Urine Blood Sm (Negative) 07/05/17 Unknown Urine Nitrite Neg (Negative) 07/05/17 Unknown Urine Bilirubin Neg (Negative) 07/05/17 Unknown Urine Urobilinogen < 2.0 mg/dL (<2.0) 07/05/17 Unknown Ur Leukocyte Esterase Tr (Negative) 07/05/17 Unknown Urine WBC (Auto) < 1.0 /HPF (0.0-6.0) 07/05/17 Unknown Urine RBC (Auto) 10.0 /HPF (0.0-6.0) 07/05/17 Unknown U Epithel Cells (Auto) 9.0 /HPF (0-13.0) 07/05/17 Unknown Urine Bacteria (Auto) 2+ /HPF (Negative) 07/05/17 Unknown Urine Mucus Few /HPF 07/03/17 Unknown Urine Eosinophils None seen (None Seen) 07/05/17 Unknown Urine Creatinine 237.2 mg/dL (0.1-20.0) H 07/05/17 Unknown Urine Microalbumin 39.9 mg/dL (0.1-34.0) H 07/05/17 Unknown Microalb/Creat Ratio 168.2 ug/mg 07/05/17 Unknown Urine Sodium 18 mmol/L 07/05/17 Unknown Urine Total Protein 170 mg/dL (5-11.8) H 07/05/17 Unknown [place] Screen Negative (Negative) 07/06/17 17:55 Proteinase 3 (PR3) Ab <1.0 AI (<1.0) 07/06/17 17:55 Myeloperoxidase Ab <1.0 AI (<1.0) 07/06/17 17:55 Complement C3 77 mg/dL (83-193) L 07/06/17 17:55 Complement C4 16 mg/dL (15-57) 07/06/17 17:55 Hepatitis A IgM Ab Non-reactive (NonReactive) 07/06/17 18:07 Hep Bs Antigen Non-reactive (Negative) 07/06/17 18:07 Hep B Core IgM Ab Non-reactive (NonReactive) 07/06/17 18:07 Hepatitis C Antibody Non-reactive (NonReactive) 07/06/17 18:07 HIV 1&2 Antibody Rapid Non react (Non React) 07/06/17 18:09 HIV P24 Antigen Non react (Non React) 07/06/17 18:09 Blood Type O POSITIVE 07/21/17 15:15 Antibody Screen Negative 07/21/17 15:15 Crossmatch See Detail 07/21/17 15:15
[2017-08-02] MEDS: HEPARIN SUB-Q SCH ×3 (05:26→22:00)
[2017-08-02] MEDS: MORPHINE IV PRN ×3 (05:27→15:10)
[2017-08-02] MEDS: COREG PO SCH ×2 (09:33→21:58)
[2017-08-02] MEDS: NORVASC PO SCH (09:34)
[2017-08-02] MEDS: DIOVAN PO SCH ×2 (09:34→22:00)
[2017-08-02] MEDS: PEPCID PO SCH ×2 (11:07→22:00)
[2017-08-02] MEDS: ZOFRAN IV PRN ×2 (11:07→20:55)
--- NOTE | 2017-08-02 11:10 | Progress Note ---
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 Surgery placed on low carb diet and held TPN for a week. pre-albumin remains low, therefore patient needs TPN. I discussed with Dr. Pérez. I also discussed with Case management. Leukocytosis, from sepsis, resolved Hypertensive urgency-resolved Menorraghia secondary to Fibroids Etoh use disorder, now stable, no sign of withdrawl Right liver lesion? Hemangioma, outpt f/u Multiple electrolyte abnormalities, repleted Hypothermia from sepsis-Resolved Cocaine abuse per history Malnutrition. To resume TPN today. Order was placed for dietitian yesterday. The patient will need lifelong TPN due to near total small bowel resection. Positive Lupus anticoagulant, consulted hematology and recommended to f/u outpt DVT prophylaxis. Heparin Full code status History Interval history: No new issues overnight Hospitalist Physical - Constitutional Vitals: Temp Pulse Resp BP Pulse Ox 98.7 F 79 16 98/59 100 08/02/17 07:52 08/02/17 07:52 08/02/17 07:52 08/02/17 07:52 08/02/17 07:52 General appearance: Present: no acute distress - EENT Eyes: Present: PERRL, EOM intact ENT: hearing intact, clear oral mucosa, dentition normal - Neck Neck: Present: supple, normal ROM - Respiratory Respiratory effort: normal Respiratory: bilateral: CTA - Cardiovascular Rhythm: regular Heart Sounds: Present: S1 & S2. Absent: gallop, rub - Extremities Extremities: no ischemia, No edema, Full ROM - Abdominal General gastrointestinal: soft, non-tender, non-distended, normal bowel sounds - Integumentary Integumentary: Present: clear, warm, dry - Neurologic Neurologic: CNII-XII intact, moves all extremities Results - Labs CBC & Chem 7: 07/26/17 Unknown 07/30/17 06:45 Labs: Laboratory Last Values WBC 8.1 K/mm3 (4.5-11.0) 07/26/17 Unknown RBC 3.74 M/mm3 (3.65-5.03) 07/26/17 Unknown Hgb 9.5 gm/dl (10.1-14.3) L 07/26/17 Unknown Hct 29.2 % (30.3-42.9) L 07/26/17 Unknown MCV 78 fl (79-97) L 07/26/17 Unknown MCH 25 pg (28-32) L 07/26/17 Unknown MCHC 33 % (30-34) 07/26/17 Unknown RDW 26.9 % (13.2-15.2) H 07/26/17 Unknown Plt Count 314 K/mm3 (140-440) 07/26/17 Unknown Lymph % (Auto) Microbiology Quality Control Technician 07/20/17 12:30 [place] % (Auto) Microbiology Quality Control Technician 07/20/17 12:30 Eos % (Auto) Microbiology Quality Control Technician 07/20/17 12:30 Baso % (Auto) Microbiology Quality Control Technician 07/20/17 12:30 Lymph # Microbiology Quality Control Technician 07/20/17 12:30 [place] # Microbiology Quality Control Technician 07/20/17 12:30 Eos # Microbiology Quality Control Technician 07/20/17 12:30 Baso # Microbiology Quality Control Technician 07/20/17 12:30 Add Manual Diff Complete 07/26/17 Unknown Total Counted 100 07/26/17 Unknown Seg Neutrophils % Microbiology Quality Control Technician 07/20/17 12:30 Seg Neuts % (Manual) 71.0 % (40.0-70.0) H 07/26/17 Unknown Band Neutrophils % 0 % 07/26/17 Unknown Lymphocytes % (Manual) 17.0 % (13.4-35.0) 07/26/17 Unknown Reactive Lymphs % (Man) 0 % 07/26/17 Unknown Monocytes % (Manual) 10.0 % (0.0-7.3) H 07/26/17 Unknown Eosinophils % (Manual) 2.0 % (0.0-4.3) 07/26/17 Unknown Basophils % (Manual) 0 % (0.0-1.8) 07/26/17 Unknown Metamyelocytes % 0 % 07/26/17 Unknown Myelocytes % 0 % 07/26/17 Unknown Promyelocytes % 0 % 07/26/17 Unknown Blast Cells % 0 % 07/26/17 Unknown Nucleated RBC % Not Reportable 07/26/17 Unknown Seg Neutrophils # Microbiology Quality Control Technician 07/20/17 12:30 Seg Neutrophils # Man 5.8 K/mm3 (1.8-7.7) 07/26/17 Unknown Band Neutrophils # 0.0 K/mm3 07/26/17 Unknown Lymphocytes # (Manual) 1.4 K/mm3 (1.2-5.4) 07/26/17 Unknown Abs React Lymphs (Man) 0.0 K/mm3 07/26/17 Unknown Monocytes # (Manual) 0.8 K/mm3 (0.0-0.8) 07/26/17 Unknown Eosinophils # (Manual) 0.2 K/mm3 (0.0-0.4) 07/26/17 Unknown Basophils # (Manual) 0.0 K/mm3 (0.0-0.1) 07/26/17 Unknown Metamyelocytes # 0.0 K/mm3 07/26/17 Unknown Myelocytes # 0.0 K/mm3 07/26/17 Unknown Promyelocytes # 0.0 K/mm3 07/26/17 Unknown Blast Cells # 0.0 K/mm3 07/26/17 Unknown Pathologist Review 07/04/17 04:39 WBC Morphology Not Reportable 07/26/17 Unknown Hypersegmented Neuts Not Reportable 07/26/17 Unknown Hyposegmented Neuts Not Reportable 07/26/17 Unknown Hypogranular Neuts Not Reportable 07/26/17 Unknown Smudge Cells Not Reportable 07/26/17 Unknown Toxic Granulation Not Reportable 07/26/17 Unknown Toxic Vacuolation Not Reportable 07/26/17 Unknown Dohle Bodies Not Reportable 07/26/17 Unknown Pelger-Huet Anomaly Not Reportable 07/26/17 Unknown Irma Rods Not Reportable 07/26/17 Unknown Platelet Estimate Appears normal 07/26/17 Unknown Clumped Platelets Not Reportable 07/26/17 Unknown Plt Clumps, EDTA Not Reportable 07/26/17 Unknown Large Platelets Not Reportable 07/26/17 Unknown Giant Platelets Not Reportable 07/26/17 Unknown Platelet Satelliting Not Reportable 07/26/17 Unknown Plt Morphology Comment Not Reportable 07/26/17 Unknown RBC Morphology Not Reportable 07/26/17 Unknown Dimorphic RBCs Not Reportable 07/26/17 Unknown Polychromasia Not Reportable 07/26/17 Unknown Hypochromasia 1+ 07/26/17 Unknown Poikilocytosis 2+ 07/26/17 Unknown Anisocytosis 3+ 07/26/17 Unknown Microcytosis 1+ 07/26/17 Unknown Macrocytosis Not Reportable 07/26/17 Unknown Spherocytes Not Reportable 07/26/17 Unknown Pappenheimer Bodies Not Reportable 07/26/17 Unknown Sickle Cells Not Reportable 07/26/17 Unknown Target Cells Rare 07/26/17 Unknown Tear Drop Cells Not Reportable 07/26/17 Unknown Ovalocytes Not Reportable 07/26/17 Unknown Helmet Cells Not Reportable 07/26/17 Unknown [place] Bodies Not Reportable 07/26/17 Unknown [place] Rings Not Reportable 07/26/17 Unknown [place] Cells Not Reportable 07/26/17 Unknown Bite Cells Not Reportable 07/26/17 Unknown Crenated Cell Not Reportable 07/26/17 Unknown Elliptocytes Not Reportable 07/26/17 Unknown Acanthocytes (Spur) Not Reportable 07/26/17 Unknown Rouleaux Not Reportable 07/26/17 Unknown Hemoglobin C Crystals Not Reportable 07/26/17 Unknown Schistocytes Not Reportable 07/26/17 Unknown Malaria parasites Not Reportable 07/26/17 Unknown Percent Retic 2.42 % (0.78-2.58) 07/19/17 06:05 Roberto Bodies Not Reportable 07/26/17 Unknown Haptoglobin 204 mg/dL (43-212) 07/03/17 09:31 Hem Pathologist Commnt No 07/26/17 Unknown PT 12.5 Sec. (12.2-14.9) 07/03/17 06:19 INR 0.89 (0.87-1.13) 07/03/17 06:19 APTT 24.6 Sec. (24.2-36.6) 07/03/17 09:31 Fibrinogen 350 mg/dl (211-480) 07/03/17 09:31 Lupus Anticoagulant see below H 07/06/17 17:55 LA PTT Baseline 47 sec (<=40) H 07/06/17 17:55 dRVVT Confirm Interp Negative (Negative) 07/06/17 17:55 dRVVT Screen 50:50 See scanned report 07/06/17 17:55 dRVVT Mix Interpret See scanned report 07/06/17 17:55 POC ABG pH 7.459 (7.35-7.45) H 07/13/17 08:26 POC ABG pCO2 40.4 (35-45) 07/13/17 08:26 POC ABG pO2 99 (80-105) 07/13/17 08:26 POC ABG HCO3 28.6 07/13/17 08:26 POC ABG Total CO2 30 07/13/17 08:26 POC ABG O2 Sat 98 07/13/17 08:26 POC ABG Base Excess 5 07/13/17 08:26 VBG pH 7.372 (7.320-7.420) 07/03/17 06:19 FiO2 30 % 07/13/17 08:26 Sodium 139 mmol/L (137-145) 07/30/17 06:45 Potassium 4.2 mmol/L (3.6-5.0) 07/30/17 06:45 Chloride 100.7 mmol/L (98-107) 07/30/17 06:45 Carbon Dioxide 19 mmol/L (22-30) L 07/30/17 06:45 Anion Gap 24 mmol/L 07/30/17 06:45 BUN 35 mg/dL (7-17) H 07/30/17 06:45 Creatinine 1.2 mg/dL (0.7-1.2) 07/30/17 06:45 Estimated GFR 59 ml/min 07/30/17 06:45 BUN/Creatinine Ratio 29 % 07/30/17 06:45 Glucose 76 mg/dL (65-100) 07/30/17 06:45 POC Glucose 105 (70-105) 07/26/17 06:29 Lactic Acid 0.90 mmol/L (0.7-2.0) 07/06/17 07:28 Calcium 9.1 mg/dL (8.4-10.2) 07/30/17 06:45 Ionized Calcium 5.1 mg/dL (4.8-5.6) 07/07/17 12:21 Phosphorus 4.30 mg/dL (2.5-4.5) 07/24/17 06:49 Magnesium 1.80 mg/dL (1.7-2.3) 07/24/17 06:49 Iron 34 ug/dL (37-170) L 07/19/17 06:05 TIBC 260 mcg/dL (250-450) 07/19/17 06:05 % Saturation 13.08 % 07/19/17 06:05 Transferrin 227 mg/dl (192-382) 07/19/17 06:05 Ferritin 195.3 ng/mL (13.0-400.0) 07/19/17 06:05 Total Bilirubin 0.50 mg/dL (0.1-1.2) 07/26/17 Unknown AST 56 units/L (5-40) H 07/26/17 Unknown ALT 98 units/L (7-56) H 07/26/17 Unknown Alkaline Phosphatase 219 units/L (35-129) H 07/26/17 Unknown Total Creatine Kinase 38 units/L (30-135) 07/27/17 11:30 CK-MB (CK-2) < 1.0 ng/mL (0.0-4.0) 07/27/17 11:30 CK-MB (CK-2) Rel Index 2.6 (0-4) 07/27/17 11:30 Troponin T < 0.010 ng/mL (0.00-0.029) 07/27/17 11:30 C-Reactive Protein 10.30 mg/dL (0.00-1.30) H 07/12/17 17:01 NT-Pro-B Natriuret Pep 114.4 pg/mL (0-450) 07/07/17 12:21 Total Protein 7.6 g/dL (6.3-8.2) 07/26/17 Unknown Albumin 3.7 g/dL (3.9-5) L 07/26/17 Unknown Albumin/Globulin Ratio 0.9 % 07/26/17 Unknown Prealbumin 0.280 g/L (0.200-0.400) 07/31/17 07:15 Triglycerides 103 mg/dL (2-149) 07/05/17 22:04 Lipase 18 units/L (13-60) 07/03/17 05:28 Vitamin B12 1373 pg/mL (211-911) H 07/19/17 06:05 Folate 10.31 ng/mL (7.3-26.0) 07/19/17 06:05 TSH 0.561 mlU/mL (0.270-4.200) 07/04/17 14:38 HCG, Qual Negative (Negative) 07/03/17 06:19 HCG, Quant < 2 mIU/mL (0-4) 07/05/17 15:50 PTH Intact 285.9 pg/mL (15-65) H 07/06/17 07:28 Urine Color Yellow (Yellow) 07/05/17 Unknown Urine Turbidity Clear (Clear) 07/05/17 Unknown Urine pH 5.0 (5.0-7.0) 07/05/17 Unknown Ur Specific [place] 1.021 (1.003-1.030) 07/05/17 Unknown Urine Protein 100 mg/dl mg/dL (Negative) 07/05/17 Unknown Urine Glucose (UA) 50 mg/dL (Negative) 07/05/17 Unknown Urine Ketones Tr mg/dL (Negative) 07/05/17 Unknown Urine Blood Sm (Negative) 07/05/17 Unknown Urine Nitrite Neg (Negative) 07/05/17 Unknown Urine Bilirubin Neg (Negative) 07/05/17 Unknown Urine Urobilinogen < 2.0 mg/dL (<2.0) 07/05/17 Unknown Ur Leukocyte Esterase Tr (Negative) 07/05/17 Unknown Urine WBC (Auto) < 1.0 /HPF (0.0-6.0) 07/05/17 Unknown Urine RBC (Auto) 10.0 /HPF (0.0-6.0) 07/05/17 Unknown U Epithel Cells (Auto) 9.0 /HPF (0-13.0) 07/05/17 Unknown Urine Bacteria (Auto) 2+ /HPF (Negative) 07/05/17 Unknown Urine Mucus Few /HPF 07/03/17 Unknown Urine Eosinophils None seen (None Seen) 07/05/17 Unknown Urine Creatinine 237.2 mg/dL (0.1-20.0) H 07/05/17 Unknown Urine Microalbumin 39.9 mg/dL (0.1-34.0) H 07/05/17 Unknown Microalb/Creat Ratio 168.2 ug/mg 07/05/17 Unknown Urine Sodium 18 mmol/L 07/05/17 Unknown Urine Total Protein 170 mg/dL (5-11.8) H 07/05/17 Unknown [place] Screen Negative (Negative) 07/06/17 17:55 Proteinase 3 (PR3) Ab <1.0 AI (<1.0) 07/06/17 17:55 Myeloperoxidase Ab <1.0 AI (<1.0) 07/06/17 17:55 Complement C3 77 mg/dL (83-193) L 07/06/17 17:55 Complement C4 16 mg/dL (15-57) 07/06/17 17:55 Hepatitis A IgM Ab Non-reactive (NonReactive) 07/06/17 18:07 Hep Bs Antigen Non-reactive (Negative) 07/06/17 18:07 Hep B Core IgM Ab Non-reactive (NonReactive) 07/06/17 18:07 Hepatitis C Antibody Non-reactive (NonReactive) 07/06/17 18:07 HIV 1&2 Antibody Rapid Non react (Non React) 07/06/17 18:09 HIV P24 Antigen Non react (Non React) 07/06/17 18:09 Blood Type O POSITIVE 07/21/17 15:15 Antibody Screen Negative 07/21/17 15:15 Crossmatch See Detail 07/21/17 15:15
[2017-08-02] MEDS: TRANSDERM-SCOP TD SCH (11:12)
[2017-08-02] MEDS ORDERED: TPN ADULT 1,800 ML IV SCH (20:00)
[2017-08-02] MEDS: PERCOCET 5/325 PO PRN (20:53)
[2017-08-03] MEDS: PERCOCET 5/325 PO PRN ×3 (02:28→13:18)
[2017-08-03] MEDS: HEPARIN SUB-Q SCH ×3 (05:25→22:00)
[2017-08-03] MEDS ORDERED: NACL 0.9% 500 ML 500 ML IV ONE (09:04)
[2017-08-03] MEDS: PEPCID PO SCH ×2 (09:47→21:17)
[2017-08-03] MEDS: ZOFRAN IV PRN ×2 (10:00→18:39)
[2017-08-03] MEDS: COREG PO SCH ×2 (10:29→22:00)
[2017-08-03] MEDS: DIOVAN PO SCH ×2 (10:29→22:00)
[2017-08-03] MEDS: NORVASC PO SCH (10:30)
--- NOTE | 2017-08-03 10:30 | Progress Note ---
Assessment and Plan Assessment and plan: Severe Sepsis due to gangrenous bowel; s/p removal of near complete small intestine; completed abx per ID EMMA secondary to vasomotor nephropathy with underlying ATN; creatinine has worsened today. Normal saline bolus 500 mL 1. Continuous IV fluids 75 mL an hour. Follow BMP in the morning. Peritoneal irritation due to infected bowel, resolved Severe Anemia, Transfuse as needed Ischemic/Gangrenous Bowel, s/p resection, pt. will need TPN lifelong. pre-albumin remains low, therefore patient needs TPN. I discussed with Case management. Leukocytosis, from sepsis, resolved Hypertensive urgency-resolved Menorraghia secondary to Fibroids Etoh use disorder, now stable, no sign of withdrawl Right liver lesion? Hemangioma, outpt f/u Multiple electrolyte abnormalities, repleted Hypothermia from sepsis-Resolved Cocaine abuse per history Malnutrition. To resume TPN today. Order was placed for dietitian yesterday. The patient will need lifelong TPN due to near total small bowel resection. Positive Lupus anticoagulant, consulted hematology and recommended to f/u outpt DVT prophylaxis. Heparin Full code status History Interval history: No new issues overnight Hospitalist Physical - Constitutional Vitals: Temp Pulse Resp BP Pulse Ox 98.6 F 82 16 75/47 98 08/03/17 08:06 08/03/17 08:06 08/03/17 08:06 08/03/17 08:06 08/03/17 08:06 General appearance: Present: no acute distress - EENT Eyes: Present: PERRL, EOM intact ENT: hearing intact, clear oral mucosa, dentition normal - Neck Neck: Present: supple, normal ROM - Respiratory Respiratory effort: normal Respiratory: bilateral: CTA - Cardiovascular Rhythm: regular Heart Sounds: Present: S1 & S2. Absent: gallop, rub - Extremities Extremities: no ischemia, No edema, Full ROM - Abdominal General gastrointestinal: soft, non-tender, non-distended, normal bowel sounds - Integumentary Integumentary: Present: clear, warm, dry - Neurologic Neurologic: CNII-XII intact, moves all extremities Results - Labs CBC & Chem 7: 07/26/17 Unknown 08/03/17 05:21 Labs: Laboratory Last Values WBC 8.1 K/mm3 (4.5-11.0) 07/26/17 Unknown RBC 3.74 M/mm3 (3.65-5.03) 07/26/17 Unknown Hgb 9.5 gm/dl (10.1-14.3) L 07/26/17 Unknown Hct 29.2 % (30.3-42.9) L 07/26/17 Unknown MCV 78 fl (79-97) L 07/26/17 Unknown MCH 25 pg (28-32) L 07/26/17 Unknown MCHC 33 % (30-34) 07/26/17 Unknown RDW 26.9 % (13.2-15.2) H 07/26/17 Unknown Plt Count 314 K/mm3 (140-440) 07/26/17 Unknown Lymph % (Auto) [employer] 07/20/17 12:30 [place] % (Auto) [employer] 07/20/17 12:30 Eos % (Auto) [employer] 07/20/17 12:30 Baso % (Auto) [employer] 07/20/17 12:30 Lymph # [employer] 07/20/17 12:30 [place] # [employer] 07/20/17 12:30 Eos # [employer] 07/20/17 12:30 Baso # [employer] 07/20/17 12:30 Add Manual Diff Complete 07/26/17 Unknown Total Counted 100 07/26/17 Unknown Seg Neutrophils % [employer] 07/20/17 12:30 Seg Neuts % (Manual) 71.0 % (40.0-70.0) H 07/26/17 Unknown Band Neutrophils % 0 % 07/26/17 Unknown Lymphocytes % (Manual) 17.0 % (13.4-35.0) 07/26/17 Unknown Reactive Lymphs % (Man) 0 % 07/26/17 Unknown Monocytes % (Manual) 10.0 % (0.0-7.3) H 07/26/17 Unknown Eosinophils % (Manual) 2.0 % (0.0-4.3) 07/26/17 Unknown Basophils % (Manual) 0 % (0.0-1.8) 07/26/17 Unknown Metamyelocytes % 0 % 07/26/17 Unknown Myelocytes % 0 % 07/26/17 Unknown Promyelocytes % 0 % 07/26/17 Unknown Blast Cells % 0 % 07/26/17 Unknown Nucleated RBC % Not Reportable 07/26/17 Unknown Seg Neutrophils # [employer] 07/20/17 12:30 Seg Neutrophils # Man 5.8 K/mm3 (1.8-7.7) 07/26/17 Unknown Band Neutrophils # 0.0 K/mm3 07/26/17 Unknown Lymphocytes # (Manual) 1.4 K/mm3 (1.2-5.4) 07/26/17 Unknown Abs React Lymphs (Man) 0.0 K/mm3 07/26/17 Unknown Monocytes # (Manual) 0.8 K/mm3 (0.0-0.8) 07/26/17 Unknown Eosinophils # (Manual) 0.2 K/mm3 (0.0-0.4) 07/26/17 Unknown Basophils # (Manual) 0.0 K/mm3 (0.0-0.1) 07/26/17 Unknown Metamyelocytes # 0.0 K/mm3 07/26/17 Unknown Myelocytes # 0.0 K/mm3 07/26/17 Unknown Promyelocytes # 0.0 K/mm3 07/26/17 Unknown Blast Cells # 0.0 K/mm3 07/26/17 Unknown Pathologist Review 07/04/17 04:39 WBC Morphology Not Reportable 07/26/17 Unknown Hypersegmented Neuts Not Reportable 07/26/17 Unknown Hyposegmented Neuts Not Reportable 07/26/17 Unknown Hypogranular Neuts Not Reportable 07/26/17 Unknown Smudge Cells Not Reportable 07/26/17 Unknown Toxic Granulation Not Reportable 07/26/17 Unknown Toxic Vacuolation Not Reportable 07/26/17 Unknown Dohle Bodies Not Reportable 07/26/17 Unknown Pelger-Huet Anomaly Not Reportable 07/26/17 Unknown Irma Rods Not Reportable 07/26/17 Unknown Platelet Estimate Appears normal 07/26/17 Unknown Clumped Platelets Not Reportable 07/26/17 Unknown Plt Clumps, EDTA Not Reportable 07/26/17 Unknown Large Platelets Not Reportable 07/26/17 Unknown Giant Platelets Not Reportable 07/26/17 Unknown Platelet Satelliting Not Reportable 07/26/17 Unknown Plt Morphology Comment Not Reportable 07/26/17 Unknown RBC Morphology Not Reportable 07/26/17 Unknown Dimorphic RBCs Not Reportable 07/26/17 Unknown Polychromasia Not Reportable 07/26/17 Unknown Hypochromasia 1+ 07/26/17 Unknown Poikilocytosis 2+ 07/26/17 Unknown Anisocytosis 3+ 07/26/17 Unknown Microcytosis 1+ 07/26/17 Unknown Macrocytosis Not Reportable 07/26/17 Unknown Spherocytes Not Reportable 07/26/17 Unknown Pappenheimer Bodies Not Reportable 07/26/17 Unknown Sickle Cells Not Reportable 07/26/17 Unknown Target Cells Rare 07/26/17 Unknown Tear Drop Cells Not Reportable 07/26/17 Unknown Ovalocytes Not Reportable 07/26/17 Unknown Helmet Cells Not Reportable 07/26/17 Unknown [place] Bodies Not Reportable 07/26/17 Unknown [employer] Rings Not Reportable 07/26/17 Unknown [place] Cells Not Reportable 07/26/17 Unknown Bite Cells Not Reportable 07/26/17 Unknown Crenated Cell Not Reportable 07/26/17 Unknown Elliptocytes Not Reportable 07/26/17 Unknown Acanthocytes (Spur) Not Reportable 07/26/17 Unknown Rouleaux Not Reportable 07/26/17 Unknown Hemoglobin C Crystals Not Reportable 07/26/17 Unknown Schistocytes Not Reportable 07/26/17 Unknown Malaria parasites Not Reportable 07/26/17 Unknown Percent Retic 2.42 % (0.78-2.58) 07/19/17 06:05 Roberto Bodies Not Reportable 07/26/17 Unknown Haptoglobin 204 mg/dL (43-212) 07/03/17 09:31 Hem Pathologist Commnt No 07/26/17 Unknown PT 12.5 Sec. (12.2-14.9) 07/03/17 06:19 INR 0.89 (0.87-1.13) 07/03/17 06:19 APTT 24.6 Sec. (24.2-36.6) 07/03/17 09:31 Fibrinogen 350 mg/dl (211-480) 07/03/17 09:31 Lupus Anticoagulant see below H 07/06/17 17:55 LA PTT Baseline 47 sec (<=40) H 07/06/17 17:55 dRVVT Confirm Interp Negative (Negative) 07/06/17 17:55 dRVVT Screen 50:50 See scanned report 07/06/17 17:55 dRVVT Mix Interpret See scanned report 07/06/17 17:55 POC ABG pH 7.459 (7.35-7.45) H 07/13/17 08:26 POC ABG pCO2 40.4 (35-45) 07/13/17 08:26 POC ABG pO2 99 (80-105) 07/13/17 08:26 POC ABG HCO3 28.6 07/13/17 08:26 POC ABG Total CO2 30 07/13/17 08:26 POC ABG O2 Sat 98 07/13/17 08:26 POC ABG Base Excess 5 07/13/17 08:26 VBG pH 7.372 (7.320-7.420) 07/03/17 06:19 FiO2 30 % 07/13/17 08:26 Sodium 136 mmol/L (137-145) L 08/03/17 05:21 Potassium 3.8 mmol/L (3.6-5.0) 08/03/17 05:21 Chloride 99.7 mmol/L (98-107) 08/03/17 05:21 Carbon Dioxide 23 mmol/L (22-30) 08/03/17 05:21 Anion Gap 17 mmol/L 08/03/17 05:21 BUN 33 mg/dL (7-17) H 08/03/17 05:21 Creatinine 1.7 mg/dL (0.7-1.2) H 08/03/17 05:21 Estimated GFR 40 ml/min 08/03/17 05:21 BUN/Creatinine Ratio 19 % 08/03/17 05:21 Glucose 137 mg/dL (65-100) H 08/03/17 05:21 POC Glucose 143 (70-105) H 08/03/17 06:23 Lactic Acid 0.90 mmol/L (0.7-2.0) 07/06/17 07:28 Calcium 9.0 mg/dL (8.4-10.2) 08/03/17 05:21 Ionized Calcium 5.1 mg/dL (4.8-5.6) 07/07/17 12:21 Phosphorus 3.20 mg/dL (2.5-4.5) 08/03/17 05:21 Magnesium 1.60 mg/dL (1.7-2.3) L 08/03/17 05:21 Iron 34 ug/dL (37-170) L 07/19/17 06:05 TIBC 260 mcg/dL (250-450) 07/19/17 06:05 % Saturation 13.08 % 07/19/17 06:05 Transferrin 227 mg/dl (192-382) 07/19/17 06:05 Ferritin 195.3 ng/mL (13.0-400.0) 07/19/17 06:05 Total Bilirubin 0.50 mg/dL (0.1-1.2) 07/26/17 Unknown AST 56 units/L (5-40) H 07/26/17 Unknown ALT 98 units/L (7-56) H 07/26/17 Unknown Alkaline Phosphatase 219 units/L (35-129) H 07/26/17 Unknown Total Creatine Kinase 38 units/L (30-135) 07/27/17 11:30 CK-MB (CK-2) < 1.0 ng/mL (0.0-4.0) 07/27/17 11:30 CK-MB (CK-2) Rel Index 2.6 (0-4) 07/27/17 11:30 Troponin T < 0.010 ng/mL (0.00-0.029) 07/27/17 11:30 C-Reactive Protein 10.30 mg/dL (0.00-1.30) H 07/12/17 17:01 NT-Pro-B Natriuret Pep 114.4 pg/mL (0-450) 07/07/17 12:21 Total Protein 7.6 g/dL (6.3-8.2) 07/26/17 Unknown Albumin 3.7 g/dL (3.9-5) L 07/26/17 Unknown Albumin/Globulin Ratio 0.9 % 07/26/17 Unknown Prealbumin 0.280 g/L (0.200-0.400) 07/31/17 07:15 Triglycerides 103 mg/dL (2-149) 07/05/17 22:04 Lipase 18 units/L (13-60) 07/03/17 05:28 Vitamin B12 1373 pg/mL (211-911) H 07/19/17 06:05 Folate 10.31 ng/mL (7.3-26.0) 07/19/17 06:05 TSH 0.561 mlU/mL (0.270-4.200) 07/04/17 14:38 HCG, Qual Negative (Negative) 07/03/17 06:19 HCG, Quant < 2 mIU/mL (0-4) 07/05/17 15:50 PTH Intact 285.9 pg/mL (15-65) H 07/06/17 07:28 Urine Color Yellow (Yellow) 07/05/17 Unknown Urine Turbidity Clear (Clear) 07/05/17 Unknown Urine pH 5.0 (5.0-7.0) 07/05/17 Unknown Ur Specific [place] 1.021 (1.003-1.030) 07/05/17 Unknown Urine Protein 100 mg/dl mg/dL (Negative) 07/05/17 Unknown Urine Glucose (UA) 50 mg/dL (Negative) 07/05/17 Unknown Urine Ketones Tr mg/dL (Negative) 07/05/17 Unknown Urine Blood Sm (Negative) 07/05/17 Unknown Urine Nitrite Neg (Negative) 07/05/17 Unknown Urine Bilirubin Neg (Negative) 07/05/17 Unknown Urine Urobilinogen < 2.0 mg/dL (<2.0) 07/05/17 Unknown Ur Leukocyte Esterase Tr (Negative) 07/05/17 Unknown Urine WBC (Auto) < 1.0 /HPF (0.0-6.0) 07/05/17 Unknown Urine RBC (Auto) 10.0 /HPF (0.0-6.0) 07/05/17 Unknown U Epithel Cells (Auto) 9.0 /HPF (0-13.0) 07/05/17 Unknown Urine Bacteria (Auto) 2+ /HPF (Negative) 07/05/17 Unknown Urine Mucus Few /HPF 07/03/17 Unknown Urine Eosinophils None seen (None Seen) 07/05/17 Unknown Urine Creatinine 237.2 mg/dL (0.1-20.0) H 07/05/17 Unknown Urine Microalbumin 39.9 mg/dL (0.1-34.0) H 07/05/17 Unknown Microalb/Creat Ratio 168.2 ug/mg 07/05/17 Unknown Urine Sodium 18 mmol/L 07/05/17 Unknown Urine Total Protein 170 mg/dL (5-11.8) H 07/05/17 Unknown [place] Screen Negative (Negative) 07/06/17 17:55 Proteinase 3 (PR3) Ab <1.0 AI (<1.0) 07/06/17 17:55 Myeloperoxidase Ab <1.0 AI (<1.0) 07/06/17 17:55 Complement C3 77 mg/dL (83-193) L 07/06/17 17:55 Complement C4 16 mg/dL (15-57) 07/06/17 17:55 Hepatitis A IgM Ab Non-reactive (NonReactive) 07/06/17 18:07 Hep Bs Antigen Non-reactive (Negative) 07/06/17 18:07 Hep B Core IgM Ab Non-reactive (NonReactive) 07/06/17 18:07 Hepatitis C Antibody Non-reactive (NonReactive) 07/06/17 18:07 HIV 1&2 Antibody Rapid Non react (Non React) 07/06/17 18:09 HIV P24 Antigen Non react (Non React) 07/06/17 18:09 Blood Type O POSITIVE 07/21/17 15:15 Antibody Screen Negative 07/21/17 15:15 Crossmatch See Detail 07/21/17 15:15
[2017-08-03] MEDS: NACL 0.9% 1000 ML 1,000 ML IV SCH (12:30)
[2017-08-03] MEDS ORDERED: TYLENOL PO PRN (17:24)
[2017-08-03] MEDS ORDERED: TPN ADULT 1,800 ML IV SCH (20:00)
[2017-08-04] MEDS: NACL 0.9% 1000 ML 1,000 ML IV SCH ×2 (01:50→15:31)
[2017-08-04] MEDS: ZOFRAN IV PRN ×2 (02:42→22:39)
[2017-08-04] MEDS: ALBURX 25% (ALBUMIN) IV SCH ×3 (06:18→15:32)
[2017-08-04] MEDS: HEPARIN SUB-Q SCH ×3 (06:24→22:06)
[2017-08-04 08:02] LABS: Hematocrit 28.2 % (30.3-42.9); Hemoglobin 9.3 gm/dl (10.1-14.3); Mean Corpuscular HGB Conc 33 % (30-34); Mean Corpuscular Volume 78 fl (79-97); Red Blood Count 3.61 M/mm3 (3.65-5.03)
[2017-08-04 08:04] LABS: BUN/Creatinine Ratio 35; Blood Urea Nitrogen 28 mg/dL (7-17); Calcium 9.1 mg/dL (8.4-10.2); Hemolysis Index 7
[2017-08-04 08:20] LABS: Mean Corpuscular Hemoglobin 26 pg (28-32); Red Cell Distribution Width 24.8 % (13.2-15.2)
[2017-08-04 10:17] LABS: Band Neutrophils # (Manual) 0.1 K/mm3; Basophils % (Manual) 0 % (0.0-1.8); Total Cells Counted 100
[2017-08-04 10:18] LABS: Anisocytosis 2+; Hypochromasia 1+
[2017-08-04 10:19] LABS: Platelet Count 117 K/mm3 (140-440); Platelet Estimate Appears Decreased
--- NOTE | 2017-08-04 11:03 | Progress Note ---
Assessment and Plan EMMA likely ATN from low BP: -BP meds adjusted -Cr now trending down -Albumin X 3 ordered earlier. On NS hydration. -Renally dose all meds -Avoid nephrotoxic meds Severe Sepsis due to gangrenous bowel: -s/p removal of near complete small intestine Severe Anemia: -Transfuse PRN Etoh abuse: -Per primary Right liver lesion: -Per primary Subjective Date of service: 08/04/17 Principal diagnosis: Post-Op Resp Failure on MVS; Ischemic Bowel s/p Ex-Lap; EMMA Interval history: Denies CP, SHOB. renal function improving. Objective - Exam Narrative Exam: General appearance: AAOX3 EENT: ATNC Neck: Present: neck supple Respiratory: Coarse BS BL Heart: RRR, S1S2 Gastrointestinal: Soft, ND Integumentary: warm and dry Neurologic: Awake Musculoskeletal: Present: other (no edema to both lower extremities) Psychiatric: Appropriate mood - Vital Signs Vital signs: Vital Signs - 12hr 08/04/17 07:38 Temperature 99.0 F Pulse Rate 96 H Respiratory 16 Rate Blood Pressure 161/78 O2 Sat by Pulse 100 Oximetry - Lab 08/04/17 06:37 08/04/17 06:37 Most recent lab results Calcium 9.1 mg/dL (8.4-10.2) 08/04/17 06:37 Phosphorus 3.00 mg/dL (2.5-4.5) 08/04/17 06:37 Magnesium 1.70 mg/dL (1.7-2.3) 08/04/17 06:37 Urine Creatinine 237.2 mg/dL (0.1-20.0) H 07/05/17 Unknown Urine Sodium 18 mmol/L 07/05/17 Unknown Urine Total Protein 170 mg/dL (5-11.8) H 07/05/17 Unknown
[2017-08-04] MEDS: COREG PO SCH ×2 (11:53→22:28)
[2017-08-04] MEDS: PEPCID PO SCH ×2 (11:54→22:07)
--- NOTE | 2017-08-04 11:58 | Progress Note ---
Assessment and Plan Assessment and plan: Severe Sepsis due to gangrenous bowel; s/p removal of near complete small intestine; completed abx per ID EMMA secondary to vasomotor nephropathy with underlying ATN; resolving with IV fluid hydration. Peritoneal irritation due to infected bowel, resolved Severe Anemia, Transfuse as needed Ischemic/Gangrenous Bowel, s/p resection, pt. will need TPN lifelong. pre-albumin remains low, therefore patient needs TPN. I discussed with Case management. Leukocytosis, from sepsis, resolved Hypertensive urgency-resolved Menorraghia secondary to Fibroids Etoh use disorder, now stable, no sign of withdrawl Right liver lesion? Hemangioma, outpt f/u Multiple electrolyte abnormalities, repleted Hypothermia from sepsis-Resolved Cocaine abuse per history Malnutrition. Cont. TPN t. The patient will need lifelong TPN due to near total small bowel resection. Positive Lupus anticoagulant, consulted hematology and recommended to f/u outpt DVT prophylaxis. Heparin Full code status History Interval history: No new issues overnight Hospitalist Physical - Constitutional Vitals: Temp Pulse Resp BP Pulse Ox 99.0 F 84 16 151/80 100 08/04/17 07:38 08/04/17 11:53 08/04/17 07:38 08/04/17 11:53 08/04/17 07:38 General appearance: Present: no acute distress - EENT Eyes: Present: PERRL, EOM intact ENT: hearing intact, clear oral mucosa, dentition normal - Neck Neck: Present: supple, normal ROM - Respiratory Respiratory effort: normal Respiratory: bilateral: CTA - Cardiovascular Rhythm: regular Heart Sounds: Present: S1 & S2. Absent: gallop, rub - Extremities Extremities: no ischemia, No edema, Full ROM - Abdominal General gastrointestinal: soft, non-tender, non-distended, normal bowel sounds - Integumentary Integumentary: Present: clear, warm, dry - Neurologic Neurologic: CNII-XII intact, moves all extremities Results - Labs CBC & Chem 7: 08/04/17 06:37 08/04/17 06:37 Labs: Laboratory Last Values WBC 6.3 K/mm3 (4.5-11.0) 08/04/17 06:37 RBC 3.61 M/mm3 (3.65-5.03) L 08/04/17 06:37 Hgb 9.3 gm/dl (10.1-14.3) L 08/04/17 06:37 Hct 28.2 % (30.3-42.9) L 08/04/17 06:37 MCV 78 fl (79-97) L 08/04/17 06:37 MCH 26 pg (28-32) L 08/04/17 06:37 MCHC 33 % (30-34) 08/04/17 06:37 RDW 24.8 % (13.2-15.2) H 08/04/17 06:37 Plt Count 117 K/mm3 (140-440) L 08/04/17 06:37 Lymph % (Auto) Ditch Cleaner 07/20/17 12:30 [place] % (Auto) Ditch Cleaner 07/20/17 12:30 Eos % (Auto) Ditch Cleaner 07/20/17 12:30 Baso % (Auto) D[employer]er 07/20/17 12:30 Lymph # D[employer] Cleaner 07/20/17 12:30 [place] # Ditch Cleaner 07/20/17 12:30 Eos # Ditch Cleaner 07/20/17 12:30 Baso # Ditch Cleaner 07/20/17 12:30 Add Manual Diff Complete 08/04/17 06:37 Total Counted 100 08/04/17 06:37 Seg Neutrophils % Ditch Cleaner 07/20/17 12:30 Seg Neuts % (Manual) 48.0 % (40.0-70.0) 08/04/17 06:37 Band Neutrophils % 2.0 % 08/04/17 06:37 Lymphocytes % (Manual) 41.0 % (13.4-35.0) H 08/04/17 06:37 Reactive Lymphs % (Man) 0 % 08/04/17 06:37 Monocytes % (Manual) 4.0 % (0.0-7.3) 08/04/17 06:37 Eosinophils % (Manual) 5.0 % (0.0-4.3) H 08/04/17 06:37 Basophils % (Manual) 0 % (0.0-1.8) 08/04/17 06:37 Metamyelocytes % 0 % 08/04/17 06:37 Myelocytes % 0 % 08/04/17 06:37 Promyelocytes % 0 % 08/04/17 06:37 Blast Cells % 0 % 08/04/17 06:37 Nucleated RBC % Not Reportable 08/04/17 06:37 Seg Neutrophils # Ditch Cleaner 07/20/17 12:30 Seg Neutrophils # Man 3.0 K/mm3 (1.8-7.7) 08/04/17 06:37 Band Neutrophils # 0.1 K/mm3 08/04/17 06:37 Lymphocytes # (Manual) 2.6 K/mm3 (1.2-5.4) 08/04/17 06:37 Abs React Lymphs (Man) 0.0 K/mm3 08/04/17 06:37 Monocytes # (Manual) 0.3 K/mm3 (0.0-0.8) 08/04/17 06:37 Eosinophils # (Manual) 0.3 K/mm3 (0.0-0.4) 08/04/17 06:37 Basophils # (Manual) 0.0 K/mm3 (0.0-0.1) 08/04/17 06:37 Metamyelocytes # 0.0 K/mm3 08/04/17 06:37 Myelocytes # 0.0 K/mm3 08/04/17 06:37 Promyelocytes # 0.0 K/mm3 08/04/17 06:37 Blast Cells # 0.0 K/mm3 08/04/17 06:37 Pathologist Review 07/04/17 04:39 WBC Morphology Not Reportable 08/04/17 06:37 Hypersegmented Neuts Not Reportable 08/04/17 06:37 Hyposegmented Neuts Not Reportable 08/04/17 06:37 Hypogranular Neuts Not Reportable 08/04/17 06:37 Smudge Cells Not Reportable 08/04/17 06:37 Toxic Granulation Not Reportable 08/04/17 06:37 Toxic Vacuolation Not Reportable 08/04/17 06:37 Dohle Bodies Not Reportable 08/04/17 06:37 Pelger-Huet Anomaly Not Reportable 08/04/17 06:37 Irma Rods Not Reportable 08/04/17 06:37 Platelet Estimate Appears decreased 08/04/17 06:37 Clumped Platelets Not Reportable 08/04/17 06:37 Plt Clumps, EDTA Not Reportable 08/04/17 06:37 Large Platelets Not Reportable 08/04/17 06:37 Giant Platelets Not Reportable 08/04/17 06:37 Platelet Satelliting Not Reportable 08/04/17 06:37 Plt Morphology Comment Not Reportable 08/04/17 06:37 RBC Morphology Not Reportable 08/04/17 06:37 Dimorphic RBCs Not Reportable 08/04/17 06:37 Polychromasia Not Reportable 08/04/17 06:37 Hypochromasia 1+ 08/04/17 06:37 Poikilocytosis Not Reportable 08/04/17 06:37 Anisocytosis 2+ 08/04/17 06:37 Microcytosis Not Reportable 08/04/17 06:37 Macrocytosis Not Reportable 08/04/17 06:37 Spherocytes Not Reportable 08/04/17 06:37 Pappenheimer Bodies Not Reportable 08/04/17 06:37 Sickle Cells Not Reportable 08/04/17 06:37 Target Cells Not Reportable 08/04/17 06:37 Tear Drop Cells Not Reportable 08/04/17 06:37 Ovalocytes Not Reportable 08/04/17 06:37 Helmet Cells Not Reportable 08/04/17 06:37 [place] Bodies Not Reportable 08/04/17 06:37 [place] Rings Not Reportable 08/04/17 06:37 [place] Cells Not Reportable 08/04/17 06:37 Bite Cells Not Reportable 08/04/17 06:37 Crenated Cell Not Reportable 08/04/17 06:37 Elliptocytes Not Reportable 08/04/17 06:37 Acanthocytes (Spur) Not Reportable 08/04/17 06:37 Rouleaux Not Reportable 08/04/17 06:37 Hemoglobin C Crystals Not Reportable 08/04/17 06:37 Schistocytes Not Reportable 08/04/17 06:37 Malaria parasites Not Reportable 08/04/17 06:37 Percent Retic 2.42 % (0.78-2.58) 07/19/17 06:05 Roberto Bodies Not Reportable 08/04/17 06:37 Haptoglobin 204 mg/dL (43-212) 07/03/17 09:31 Hem Pathologist Commnt No 08/04/17 06:37 PT 12.5 Sec. (12.2-14.9) 07/03/17 06:19 INR 0.89 (0.87-1.13) 07/03/17 06:19 APTT 24.6 Sec. (24.2-36.6) 07/03/17 09:31 Fibrinogen 350 mg/dl (211-480) 07/03/17 09:31 Lupus Anticoagulant see below H 07/06/17 17:55 LA PTT Baseline 47 sec (<=40) H 07/06/17 17:55 dRVVT Confirm Interp Negative (Negative) 07/06/17 17:55 dRVVT Screen 50:50 See scanned report 07/06/17 17:55 dRVVT Mix Interpret See scanned report 07/06/17 17:55 POC ABG pH 7.459 (7.35-7.45) H 07/13/17 08:26 POC ABG pCO2 40.4 (35-45) 07/13/17 08:26 POC ABG pO2 99 (80-105) 07/13/17 08:26 POC ABG HCO3 28.6 07/13/17 08:26 POC ABG Total CO2 30 07/13/17 08:26 POC ABG O2 Sat 98 07/13/17 08:26 POC ABG Base Excess 5 07/13/17 08:26 VBG pH 7.372 (7.320-7.420) 07/03/17 06:19 FiO2 30 % 07/13/17 08:26 Sodium 137 mmol/L (137-145) 08/04/17 06:37 Potassium 3.0 mmol/L (3.6-5.0) L D 08/04/17 06:37 Chloride 95.5 mmol/L (98-107) L 08/04/17 06:37 Carbon Dioxide 24 mmol/L (22-30) 08/04/17 06:37 Anion Gap 21 mmol/L 08/04/17 06:37 BUN 28 mg/dL (7-17) H 08/04/17 06:37 Creatinine 0.8 mg/dL (0.7-1.2) D 08/04/17 06:37 Estimated GFR > 60 ml/min 08/04/17 06:37 BUN/Creatinine Ratio 35 % 08/04/17 06:37 Glucose 116 mg/dL (65-100) H 08/04/17 06:37 POC Glucose 119 (70-105) H 08/04/17 06:30 Lactic Acid 0.90 mmol/L (0.7-2.0) 07/06/17 07:28 Calcium 9.1 mg/dL (8.4-10.2) 08/04/17 06:37 Ionized Calcium 5.1 mg/dL (4.8-5.6) 07/07/17 12:21 Phosphorus 3.00 mg/dL (2.5-4.5) 08/04/17 06:37 Magnesium 1.70 mg/dL (1.7-2.3) 08/04/17 06:37 Iron 34 ug/dL (37-170) L 07/19/17 06:05 TIBC 260 mcg/dL (250-450) 07/19/17 06:05 % Saturation 13.08 % 07/19/17 06:05 Transferrin 227 mg/dl (192-382) 07/19/17 06:05 Ferritin 195.3 ng/mL (13.0-400.0) 07/19/17 06:05 Total Bilirubin 0.50 mg/dL (0.1-1.2) 07/26/17 Unknown AST 56 units/L (5-40) H 07/26/17 Unknown ALT 98 units/L (7-56) H 07/26/17 Unknown Alkaline Phosphatase 219 units/L (35-129) H 07/26/17 Unknown Total Creatine Kinase 38 units/L (30-135) 07/27/17 11:30 CK-MB (CK-2) < 1.0 ng/mL (0.0-4.0) 07/27/17 11:30 CK-MB (CK-2) Rel Index 2.6 (0-4) 07/27/17 11:30 Troponin T < 0.010 ng/mL (0.00-0.029) 07/27/17 11:30 C-Reactive Protein 10.30 mg/dL (0.00-1.30) H 07/12/17 17:01 NT-Pro-B Natriuret Pep 114.4 pg/mL (0-450) 07/07/17 12:21 Total Protein 7.6 g/dL (6.3-8.2) 07/26/17 Unknown Albumin 3.7 g/dL (3.9-5) L 07/26/17 Unknown Albumin/Globulin Ratio 0.9 % 07/26/17 Unknown Prealbumin 0.280 g/L (0.200-0.400) 07/31/17 07:15 Triglycerides 103 mg/dL (2-149) 07/05/17 22:04 Lipase 18 units/L (13-60) 07/03/17 05:28 Vitamin B12 1373 pg/mL (211-911) H 07/19/17 06:05 Folate 10.31 ng/mL (7.3-26.0) 07/19/17 06:05 TSH 0.561 mlU/mL (0.270-4.200) 07/04/17 14:38 HCG, Qual Negative (Negative) 07/03/17 06:19 HCG, Quant < 2 mIU/mL (0-4) 07/05/17 15:50 PTH Intact 285.9 pg/mL (15-65) H 07/06/17 07:28 Urine Color Yellow (Yellow) 07/05/17 Unknown Urine Turbidity Clear (Clear) 07/05/17 Unknown Urine pH 5.0 (5.0-7.0) 07/05/17 Unknown Ur Specific [place] 1.021 (1.003-1.030) 07/05/17 Unknown Urine Protein 100 mg/dl mg/dL (Negative) 07/05/17 Unknown Urine Glucose (UA) 50 mg/dL (Negative) 07/05/17 Unknown Urine Ketones Tr mg/dL (Negative) 07/05/17 Unknown Urine Blood Sm (Negative) 07/05/17 Unknown Urine Nitrite Neg (Negative) 07/05/17 Unknown Urine Bilirubin Neg (Negative) 07/05/17 Unknown Urine Urobilinogen < 2.0 mg/dL (<2.0) 07/05/17 Unknown Ur Leukocyte Esterase Tr (Negative) 07/05/17 Unknown Urine WBC (Auto) < 1.0 /HPF (0.0-6.0) 07/05/17 Unknown Urine RBC (Auto) 10.0 /HPF (0.0-6.0) 07/05/17 Unknown U Epithel Cells (Auto) 9.0 /HPF (0-13.0) 07/05/17 Unknown Urine Bacteria (Auto) 2+ /HPF (Negative) 07/05/17 Unknown Urine Mucus Few /HPF 07/03/17 Unknown Urine Eosinophils None seen (None Seen) 07/05/17 Unknown Urine Creatinine 237.2 mg/dL (0.1-20.0) H 07/05/17 Unknown Urine Microalbumin 39.9 mg/dL (0.1-34.0) H 07/05/17 Unknown Microalb/Creat Ratio 168.2 ug/mg 07/05/17 Unknown Urine Sodium 18 mmol/L 07/05/17 Unknown Urine Total Protein 170 mg/dL (5-11.8) H 07/05/17 Unknown [place] Screen Negative (Negative) 07/06/17 17:55 Proteinase 3 (PR3) Ab <1.0 AI (<1.0) 07/06/17 17:55 Myeloperoxidase Ab <1.0 AI (<1.0) 07/06/17 17:55 Complement C3 77 mg/dL (83-193) L 07/06/17 17:55 Complement C4 16 mg/dL (15-57) 07/06/17 17:55 Hepatitis A IgM Ab Non-reactive (NonReactive) 07/06/17 18:07 Hep Bs Antigen Non-reactive (Negative) 07/06/17 18:07 Hep B Core IgM Ab Non-reactive (NonReactive) 07/06/17 18:07 Hepatitis C Antibody Non-reactive (NonReactive) 07/06/17 18:07 HIV 1&2 Antibody Rapid Non react (Non React) 07/06/17 18:09 HIV P24 Antigen Non react (Non React) 07/06/17 18:09 Blood Type O POSITIVE 07/21/17 15:15 Antibody Screen Negative 07/21/17 15:15 Crossmatch See Detail 07/21/17 15:15
[2017-08-04] MEDS: MORPHINE IV PRN ×3 (12:05→22:32)
[2017-08-04] MEDS ORDERED: TPN ADULT 1,800 ML IV SCH (20:00)
[2017-08-05] MEDS ORDERED: ALBURX 25% (ALBUMIN) IV SCH (02:00)
[2017-08-05] MEDS: MORPHINE IV PRN ×4 (04:11→21:16)
[2017-08-05] MEDS: NACL 0.9% 1000 ML 1,000 ML IV SCH ×2 (04:15→20:21)
[2017-08-05] MEDS: ZOFRAN IV PRN ×3 (04:15→21:16)
[2017-08-05] MEDS: HEPARIN SUB-Q SCH ×3 (06:15→21:26)
[2017-08-05 07:00] LABS: BUN/Creatinine Ratio 32; Blood Urea Nitrogen 19 mg/dL (7-17); Calcium 8.6 mg/dL (8.4-10.2); Hemolysis Index 0
[2017-08-05] MEDS: COREG PO SCH ×2 (09:24→21:18)
[2017-08-05] MEDS: PEPCID PO SCH ×2 (09:25→21:17)
--- NOTE | 2017-08-05 11:06 | Progress Note ---
Assessment and Plan EMMA likely ATN from low BP: -BP meds adjusted -Cr continues to improve. -Albumin X 3 ordered earlier. On NS hydration. -Renally dose all meds -Avoid nephrotoxic meds Severe Sepsis due to gangrenous bowel: -s/p removal of near complete small intestine Severe Anemia: -Transfuse PRN Etoh abuse: -Per primary Right liver lesion: -Per primary Aaron Leos MD [phone] Subjective Date of service: 08/05/17 Principal diagnosis: Post-Op Resp Failure on MVS; Ischemic Bowel s/p Ex-Lap; EMMA Interval history: Feels tired. Making urine. Objective - Exam Narrative Exam: General appearance: AAOX3 EENT: ATNC Neck: Present: neck supple Respiratory: Coarse BS BL Heart: RRR, S1S2 Gastrointestinal: Soft, ND Integumentary: warm and dry Neurologic: Awake Musculoskeletal: Present: other (no edema to both lower extremities) Psychiatric: Appropriate mood - Vital Signs Vital signs: Vital Signs - 12hr 08/05/17 08/05/17 08/05/17 01:38 02:15 02:30 Temperature 98.8 F 98.8 F 98.6 F Pulse Rate 78 68 Respiratory 20 20 20 Rate Blood Pressure 122/65 122/65 128/72 O2 Sat by Pulse 100 Oximetry 08/05/17 08/05/17 07:40 09:24 Temperature 98.7 F Pulse Rate 83 83 Respiratory 18 Rate Blood Pressure 157/84 157/54 O2 Sat by Pulse 99 Oximetry - Lab 08/04/17 06:37 08/05/17 06:10 Most recent lab results Calcium 8.6 mg/dL (8.4-10.2) 08/05/17 06:10 Phosphorus 3.20 mg/dL (2.5-4.5) 08/05/17 06:10 Magnesium 1.80 mg/dL (1.7-2.3) 08/05/17 06:10 Urine Creatinine 237.2 mg/dL (0.1-20.0) H 07/05/17 Unknown Urine Sodium 18 mmol/L 07/05/17 Unknown Urine Total Protein 170 mg/dL (5-11.8) H 07/05/17 Unknown
--- NOTE | 2017-08-05 11:44 | Progress Note ---
Assessment and Plan Assessment and plan: Severe Sepsis due to gangrenous bowel; s/p removal of near complete small intestine; completed abx per ID EMMA secondary to vasomotor nephropathy with underlying ATN; resolving with IV fluid hydration. Peritoneal irritation due to infected bowel, resolved Severe Anemia, Transfuse as needed Ischemic/Gangrenous Bowel, s/p resection, pt. will need TPN lifelong. pre-albumin remains low, therefore patient needs TPN. I discussed with Case management. Leukocytosis, from sepsis, resolved Hypertensive urgency-resolved Menorraghia secondary to Fibroids Etoh use disorder, now stable, no sign of withdrawl Right liver lesion? Hemangioma, outpt f/u Multiple electrolyte abnormalities, repleted Hypothermia from sepsis-Resolved Cocaine abuse per history Malnutrition. Cont. TPN t. The patient will need lifelong TPN due to near total small bowel resection. Positive Lupus anticoagulant, consulted hematology and recommended to f/u outpt DVT prophylaxis. Heparin Full code status History Interval history: No new issues overnight Hospitalist Physical - Constitutional Vitals: Temp Pulse Resp BP Pulse Ox 98.7 F 83 18 157/54 99 08/05/17 07:40 08/05/17 09:24 08/05/17 07:40 08/05/17 09:24 08/05/17 07:40 General appearance: Present: no acute distress - EENT Eyes: Present: PERRL, EOM intact ENT: hearing intact, clear oral mucosa, dentition normal - Neck Neck: Present: supple, normal ROM - Respiratory Respiratory effort: normal Respiratory: bilateral: CTA - Cardiovascular Rhythm: regular Heart Sounds: Present: S1 & S2. Absent: gallop, rub - Extremities Extremities: no ischemia, No edema, Full ROM - Abdominal General gastrointestinal: soft, non-tender, non-distended, normal bowel sounds - Integumentary Integumentary: Present: clear, warm, dry - Neurologic Neurologic: CNII-XII intact, moves all extremities Results - Labs CBC & Chem 7: 08/04/17 06:37 08/05/17 06:10 Labs: Laboratory Last Values WBC 6.3 K/mm3 (4.5-11.0) 08/04/17 06:37 RBC 3.61 M/mm3 (3.65-5.03) L 08/04/17 06:37 Hgb 9.3 gm/dl (10.1-14.3) L 08/04/17 06:37 Hct 28.2 % (30.3-42.9) L 08/04/17 06:37 MCV 78 fl (79-97) L 08/04/17 06:37 MCH 26 pg (28-32) L 08/04/17 06:37 MCHC 33 % (30-34) 08/04/17 06:37 RDW 24.8 % (13.2-15.2) H 08/04/17 06:37 Plt Count 117 K/mm3 (140-440) L 08/04/17 06:37 Lymph % (Auto) [employer] 07/20/17 12:30 [place] % (Auto) [employer] 07/20/17 12:30 Eos % (Auto) [employer] 07/20/17 12:30 Baso % (Auto) [employer] 07/20/17 12:30 Lymph # [employer] 07/20/17 12:30 [place] # [employer] 07/20/17 12:30 Eos # [employer] 07/20/17 12:30 Baso # [employer] 07/20/17 12:30 Add Manual Diff Complete 08/04/17 06:37 Total Counted 100 08/04/17 06:37 Seg Neutrophils % [employer] 07/20/17 12:30 Seg Neuts % (Manual) 48.0 % (40.0-70.0) 08/04/17 06:37 Band Neutrophils % 2.0 % 08/04/17 06:37 Lymphocytes % (Manual) 41.0 % (13.4-35.0) H 08/04/17 06:37 Reactive Lymphs % (Man) 0 % 08/04/17 06:37 Monocytes % (Manual) 4.0 % (0.0-7.3) 08/04/17 06:37 Eosinophils % (Manual) 5.0 % (0.0-4.3) H 08/04/17 06:37 Basophils % (Manual) 0 % (0.0-1.8) 08/04/17 06:37 Metamyelocytes % 0 % 08/04/17 06:37 Myelocytes % 0 % 08/04/17 06:37 Promyelocytes % 0 % 08/04/17 06:37 Blast Cells % 0 % 08/04/17 06:37 Nucleated RBC % Not Reportable 08/04/17 06:37 Seg Neutrophils # [employer] 07/20/17 12:30 Seg Neutrophils # Man 3.0 K/mm3 (1.8-7.7) 08/04/17 06:37 Band Neutrophils # 0.1 K/mm3 08/04/17 06:37 Lymphocytes # (Manual) 2.6 K/mm3 (1.2-5.4) 08/04/17 06:37 Abs React Lymphs (Man) 0.0 K/mm3 08/04/17 06:37 Monocytes # (Manual) 0.3 K/mm3 (0.0-0.8) 08/04/17 06:37 Eosinophils # (Manual) 0.3 K/mm3 (0.0-0.4) 08/04/17 06:37 Basophils # (Manual) 0.0 K/mm3 (0.0-0.1) 08/04/17 06:37 Metamyelocytes # 0.0 K/mm3 08/04/17 06:37 Myelocytes # 0.0 K/mm3 08/04/17 06:37 Promyelocytes # 0.0 K/mm3 08/04/17 06:37 Blast Cells # 0.0 K/mm3 08/04/17 06:37 Pathologist Review 07/04/17 04:39 WBC Morphology Not Reportable 08/04/17 06:37 Hypersegmented Neuts Not Reportable 08/04/17 06:37 Hyposegmented Neuts Not Reportable 08/04/17 06:37 Hypogranular Neuts Not Reportable 08/04/17 06:37 Smudge Cells Not Reportable 08/04/17 06:37 Toxic Granulation Not Reportable 08/04/17 06:37 Toxic Vacuolation Not Reportable 08/04/17 06:37 Dohle Bodies Not Reportable 08/04/17 06:37 Pelger-Huet Anomaly Not Reportable 08/04/17 06:37 Irma Rods Not Reportable 08/04/17 06:37 Platelet Estimate Appears decreased 08/04/17 06:37 Clumped Platelets Not Reportable 08/04/17 06:37 Plt Clumps, EDTA Not Reportable 08/04/17 06:37 Large Platelets Not Reportable 08/04/17 06:37 Giant Platelets Not Reportable 08/04/17 06:37 Platelet Satelliting Not Reportable 08/04/17 06:37 Plt Morphology Comment Not Reportable 08/04/17 06:37 RBC Morphology Not Reportable 08/04/17 06:37 Dimorphic RBCs Not Reportable 08/04/17 06:37 Polychromasia Not Reportable 08/04/17 06:37 Hypochromasia 1+ 08/04/17 06:37 Poikilocytosis Not Reportable 08/04/17 06:37 Anisocytosis 2+ 08/04/17 06:37 Microcytosis Not Reportable 08/04/17 06:37 Macrocytosis Not Reportable 08/04/17 06:37 Spherocytes Not Reportable 08/04/17 06:37 Pappenheimer Bodies Not Reportable 08/04/17 06:37 Sickle Cells Not Reportable 08/04/17 06:37 Target Cells Not Reportable 08/04/17 06:37 Tear Drop Cells Not Reportable 08/04/17 06:37 Ovalocytes Not Reportable 08/04/17 06:37 Helmet Cells Not Reportable 08/04/17 06:37 [place] Bodies Not Reportable 08/04/17 06:37 [place] Rings Not Reportable 08/04/17 06:37 Jamila Cells Not Reportable 08/04/17 06:37 Bite Cells Not Reportable 08/04/17 06:37 Crenated Cell Not Reportable 08/04/17 06:37 Elliptocytes Not Reportable 08/04/17 06:37 Acanthocytes (Spur) Not Reportable 08/04/17 06:37 Rouleaux Not Reportable 08/04/17 06:37 Hemoglobin C Crystals Not Reportable 08/04/17 06:37 Schistocytes Not Reportable 08/04/17 06:37 Malaria parasites Not Reportable 08/04/17 06:37 Percent Retic 2.42 % (0.78-2.58) 07/19/17 06:05 Roberto Bodies Not Reportable 08/04/17 06:37 Haptoglobin 204 mg/dL (43-212) 07/03/17 09:31 Hem Pathologist Commnt No 08/04/17 06:37 PT 12.5 Sec. (12.2-14.9) 07/03/17 06:19 INR 0.89 (0.87-1.13) 07/03/17 06:19 APTT 24.6 Sec. (24.2-36.6) 07/03/17 09:31 Fibrinogen 350 mg/dl (211-480) 07/03/17 09:31 Lupus Anticoagulant see below H 07/06/17 17:55 LA PTT Baseline 47 sec (<=40) H 07/06/17 17:55 dRVVT Confirm Interp Negative (Negative) 07/06/17 17:55 dRVVT Screen 50:50 See scanned report 07/06/17 17:55 dRVVT Mix Interpret See scanned report 07/06/17 17:55 POC ABG pH 7.459 (7.35-7.45) H 07/13/17 08:26 POC ABG pCO2 40.4 (35-45) 07/13/17 08:26 POC ABG pO2 99 (80-105) 07/13/17 08:26 POC ABG HCO3 28.6 07/13/17 08:26 POC ABG Total CO2 30 07/13/17 08:26 POC ABG O2 Sat 98 07/13/17 08:26 POC ABG Base Excess 5 07/13/17 08:26 VBG pH 7.372 (7.320-7.420) 07/03/17 06:19 FiO2 30 % 07/13/17 08:26 Sodium 143 mmol/L (137-145) 08/05/17 06:10 Potassium 3.8 mmol/L (3.6-5.0) D 08/05/17 06:10 Chloride 106.8 mmol/L (98-107) 08/05/17 06:10 Carbon Dioxide 24 mmol/L (22-30) 08/05/17 06:10 Anion Gap 16 mmol/L 08/05/17 06:10 BUN 19 mg/dL (7-17) H 08/05/17 06:10 Creatinine 0.6 mg/dL (0.7-1.2) L 08/05/17 06:10 Estimated GFR > 60 ml/min 08/05/17 06:10 BUN/Creatinine Ratio 32 % 08/05/17 06:10 Glucose 86 mg/dL (65-100) 08/05/17 06:10 POC Glucose 77 (70-105) 08/05/17 06:23 Lactic Acid 0.90 mmol/L (0.7-2.0) 07/06/17 07:28 Calcium 8.6 mg/dL (8.4-10.2) 08/05/17 06:10 Ionized Calcium 5.1 mg/dL (4.8-5.6) 07/07/17 12:21 Phosphorus 3.20 mg/dL (2.5-4.5) 08/05/17 06:10 Magnesium 1.80 mg/dL (1.7-2.3) 08/05/17 06:10 Iron 34 ug/dL (37-170) L 07/19/17 06:05 TIBC 260 mcg/dL (250-450) 07/19/17 06:05 % Saturation 13.08 % 07/19/17 06:05 Transferrin 227 mg/dl (192-382) 07/19/17 06:05 Ferritin 195.3 ng/mL (13.0-400.0) 07/19/17 06:05 Total Bilirubin 0.50 mg/dL (0.1-1.2) 07/26/17 Unknown AST 56 units/L (5-40) H 07/26/17 Unknown ALT 98 units/L (7-56) H 07/26/17 Unknown Alkaline Phosphatase 219 units/L (35-129) H 07/26/17 Unknown Total Creatine Kinase 38 units/L (30-135) 07/27/17 11:30 CK-MB (CK-2) < 1.0 ng/mL (0.0-4.0) 07/27/17 11:30 CK-MB (CK-2) Rel Index 2.6 (0-4) 07/27/17 11:30 Troponin T < 0.010 ng/mL (0.00-0.029) 07/27/17 11:30 C-Reactive Protein 10.30 mg/dL (0.00-1.30) H 07/12/17 17:01 NT-Pro-B Natriuret Pep 114.4 pg/mL (0-450) 07/07/17 12:21 Total Protein 7.6 g/dL (6.3-8.2) 07/26/17 Unknown Albumin 3.7 g/dL (3.9-5) L 07/26/17 Unknown Albumin/Globulin Ratio 0.9 % 07/26/17 Unknown Prealbumin 0.280 g/L (0.200-0.400) 07/31/17 07:15 Triglycerides 103 mg/dL (2-149) 07/05/17 22:04 Lipase 18 units/L (13-60) 07/03/17 05:28 Vitamin B12 1373 pg/mL (211-911) H 07/19/17 06:05 Folate 10.31 ng/mL (7.3-26.0) 07/19/17 06:05 TSH 0.561 mlU/mL (0.270-4.200) 07/04/17 14:38 HCG, Qual Negative (Negative) 07/03/17 06:19 HCG, Quant < 2 mIU/mL (0-4) 07/05/17 15:50 PTH Intact 285.9 pg/mL (15-65) H 07/06/17 07:28 Urine Color Yellow (Yellow) 07/05/17 Unknown Urine Turbidity Clear (Clear) 07/05/17 Unknown Urine pH 5.0 (5.0-7.0) 07/05/17 Unknown Ur Specific [place] 1.021 (1.003-1.030) 07/05/17 Unknown Urine Protein 100 mg/dl mg/dL (Negative) 07/05/17 Unknown Urine Glucose (UA) 50 mg/dL (Negative) 07/05/17 Unknown Urine Ketones Tr mg/dL (Negative) 07/05/17 Unknown Urine Blood Sm (Negative) 07/05/17 Unknown Urine Nitrite Neg (Negative) 07/05/17 Unknown Urine Bilirubin Neg (Negative) 07/05/17 Unknown Urine Urobilinogen < 2.0 mg/dL (<2.0) 07/05/17 Unknown Ur Leukocyte Esterase Tr (Negative) 07/05/17 Unknown Urine WBC (Auto) < 1.0 /HPF (0.0-6.0) 07/05/17 Unknown Urine RBC (Auto) 10.0 /HPF (0.0-6.0) 07/05/17 Unknown U Epithel Cells (Auto) 9.0 /HPF (0-13.0) 07/05/17 Unknown Urine Bacteria (Auto) 2+ /HPF (Negative) 07/05/17 Unknown Urine Mucus Few /HPF 07/03/17 Unknown Urine Eosinophils None seen (None Seen) 07/05/17 Unknown Urine Creatinine 237.2 mg/dL (0.1-20.0) H 07/05/17 Unknown Urine Microalbumin 39.9 mg/dL (0.1-34.0) H 07/05/17 Unknown Microalb/Creat Ratio 168.2 ug/mg 07/05/17 Unknown Urine Sodium 18 mmol/L 07/05/17 Unknown Urine Total Protein 170 mg/dL (5-11.8) H 07/05/17 Unknown [place] Screen Negative (Negative) 07/06/17 17:55 Proteinase 3 (PR3) Ab <1.0 AI (<1.0) 07/06/17 17:55 Myeloperoxidase Ab <1.0 AI (<1.0) 07/06/17 17:55 Complement C3 77 mg/dL (83-193) L 07/06/17 17:55 Complement C4 16 mg/dL (15-57) 07/06/17 17:55 Hepatitis A IgM Ab Non-reactive (NonReactive) 07/06/17 18:07 Hep Bs Antigen Non-reactive (Negative) 07/06/17 18:07 Hep B Core IgM Ab Non-reactive (NonReactive) 07/06/17 18:07 Hepatitis C Antibody Non-reactive (NonReactive) 07/06/17 18:07 HIV 1&2 Antibody Rapid Non react (Non React) 07/06/17 18:09 HIV P24 Antigen Non react (Non React) 07/06/17 18:09 Blood Type O POSITIVE 07/21/17 15:15 Antibody Screen Negative 07/21/17 15:15 Crossmatch See Detail 07/21/17 15:15
[2017-08-05] MEDS: TRANSDERM-SCOP TD SCH (12:35)
[2017-08-05] MEDS ORDERED: TPN ADULT 1,800 ML IV SCH (20:00)
[2017-08-06] MEDS: MORPHINE IV PRN ×4 (02:19→19:49)
[2017-08-06] MEDS: ZOFRAN IV PRN ×4 (02:19→19:50)
[2017-08-06] MEDS: HEPARIN SUB-Q SCH ×4 (06:32→22:02)
[2017-08-06 07:24] LABS: BUN/Creatinine Ratio 40; Blood Urea Nitrogen 20 mg/dL (7-17); Calcium 8.7 mg/dL (8.4-10.2); Hemolysis Index 1
[2017-08-06 07:41] LABS: Hematocrit 27.2 % (30.3-42.9); Hemoglobin 9.2 gm/dl (10.1-14.3); Mean Corpuscular HGB Conc 34 % (30-34); Mean Corpuscular Hemoglobin 26 pg (28-32); Mean Corpuscular Volume 78 fl (79-97); Platelet Count 142 K/mm3 (140-440); Red Blood Count 3.49 M/mm3 (3.65-5.03)
[2017-08-06 08:03] LABS: Red Cell Distribution Width 22.1 % (13.2-15.2)
[2017-08-06] MEDS: PEPCID PO SCH ×2 (09:13→21:58)
[2017-08-06] MEDS: COREG PO SCH ×2 (09:13→22:00)
[2017-08-06] MEDS: NACL 0.9% 1000 ML 1,000 ML IV SCH ×2 (09:14→22:16)
--- NOTE | 2017-08-06 09:36 | Progress Note ---
Assessment and Plan Assessment and plan: Severe Sepsis due to gangrenous bowel; s/p removal of near complete small intestine; completed abx per ID EMMA secondary to vasomotor nephropathy with underlying ATN; resolving with IV fluid hydration. Peritoneal irritation due to infected bowel, resolved Severe Anemia, Transfuse as needed Ischemic/Gangrenous Bowel, s/p resection, pt. will need TPN lifelong. pre-albumin remains low, therefore patient needs TPN. I discussed with Case management. Leukocytosis, from sepsis, resolved Hypertensive urgency-resolved Menorraghia secondary to Fibroids Etoh use disorder, now stable, no sign of withdrawl Right liver lesion? Hemangioma, outpt f/u Multiple electrolyte abnormalities, repleted Hypothermia from sepsis-Resolved Cocaine abuse per history Severe protein calorie Malnutrition. Cont. TPN. The patient will need lifelong TPN due to near total small bowel resection. Positive Lupus anticoagulant, consulted hematology and recommended to f/u outpt DVT prophylaxis. Heparin Full code status Disposition. Await case management arrangement of home TPN. History Interval history: No new issues overnight Hospitalist Physical - Constitutional Vitals: Temp Pulse Resp BP Pulse Ox 98.5 F 84 19 188/107 99 08/06/17 08:06 08/06/17 08:06 08/06/17 08:06 08/06/17 08:06 08/06/17 08:06 General appearance: Present: no acute distress - EENT Eyes: Present: PERRL, EOM intact ENT: hearing intact, clear oral mucosa, dentition normal - Neck Neck: Present: supple, normal ROM - Respiratory Respiratory effort: normal Respiratory: bilateral: CTA - Cardiovascular Rhythm: regular Heart Sounds: Present: S1 & S2. Absent: gallop, rub - Extremities Extremities: no ischemia, No edema, Full ROM - Abdominal General gastrointestinal: soft, non-tender, non-distended, normal bowel sounds - Integumentary Integumentary: Present: clear, warm, dry - Neurologic Neurologic: CNII-XII intact, moves all extremities Results - Labs CBC & Chem 7: 08/06/17 06:48 08/06/17 06:48 Labs: Laboratory Last Values WBC 5.7 K/mm3 (4.5-11.0) 08/06/17 06:48 RBC 3.49 M/mm3 (3.65-5.03) L 08/06/17 06:48 Hgb 9.2 gm/dl (10.1-14.3) L 08/06/17 06:48 Hct 27.2 % (30.3-42.9) L 08/06/17 06:48 MCV 78 fl (79-97) L 08/06/17 06:48 MCH 26 pg (28-32) L 08/06/17 06:48 MCHC 34 % (30-34) 08/06/17 06:48 RDW 22.1 % (13.2-15.2) H 08/06/17 06:48 Plt Count 142 K/mm3 (140-440) 08/06/17 06:48 Lymph % (Auto) Review Specialist 07/20/17 12:30 [place] % (Auto) Review Specialist 07/20/17 12:30 Eos % (Auto) Review Specialist 07/20/17 12:30 Baso % (Auto) Review Specialist 07/20/17 12:30 Lymph # Review Specialist 07/20/17 12:30 [place] # Review Specialist 07/20/17 12:30 Eos # Review Specialist 07/20/17 12:30 Baso # Review Specialist 07/20/17 12:30 Add Manual Diff Complete 08/04/17 06:37 Total Counted 100 08/04/17 06:37 Seg Neutrophils % Review Specialist 07/20/17 12:30 Seg Neuts % (Manual) 48.0 % (40.0-70.0) 08/04/17 06:37 Band Neutrophils % 2.0 % 08/04/17 06:37 Lymphocytes % (Manual) 41.0 % (13.4-35.0) H 08/04/17 06:37 Reactive Lymphs % (Man) 0 % 08/04/17 06:37 Monocytes % (Manual) 4.0 % (0.0-7.3) 08/04/17 06:37 Eosinophils % (Manual) 5.0 % (0.0-4.3) H 08/04/17 06:37 Basophils % (Manual) 0 % (0.0-1.8) 08/04/17 06:37 Metamyelocytes % 0 % 08/04/17 06:37 Myelocytes % 0 % 08/04/17 06:37 Promyelocytes % 0 % 08/04/17 06:37 Blast Cells % 0 % 08/04/17 06:37 Nucleated RBC % Not Reportable 08/04/17 06:37 Seg Neutrophils # Review Specialist 07/20/17 12:30 Seg Neutrophils # Man 3.0 K/mm3 (1.8-7.7) 08/04/17 06:37 Band Neutrophils # 0.1 K/mm3 08/04/17 06:37 Lymphocytes # (Manual) 2.6 K/mm3 (1.2-5.4) 08/04/17 06:37 Abs React Lymphs (Man) 0.0 K/mm3 08/04/17 06:37 Monocytes # (Manual) 0.3 K/mm3 (0.0-0.8) 08/04/17 06:37 Eosinophils # (Manual) 0.3 K/mm3 (0.0-0.4) 08/04/17 06:37 Basophils # (Manual) 0.0 K/mm3 (0.0-0.1) 08/04/17 06:37 Metamyelocytes # 0.0 K/mm3 08/04/17 06:37 Myelocytes # 0.0 K/mm3 08/04/17 06:37 Promyelocytes # 0.0 K/mm3 08/04/17 06:37 Blast Cells # 0.0 K/mm3 08/04/17 06:37 Pathologist Review 07/04/17 04:39 WBC Morphology Not Reportable 08/04/17 06:37 Hypersegmented Neuts Not Reportable 08/04/17 06:37 Hyposegmented Neuts Not Reportable 08/04/17 06:37 Hypogranular Neuts Not Reportable 08/04/17 06:37 Smudge Cells Not Reportable 08/04/17 06:37 Toxic Granulation Not Reportable 08/04/17 06:37 Toxic Vacuolation Not Reportable 08/04/17 06:37 Dohle Bodies Not Reportable 08/04/17 06:37 Pelger-Huet Anomaly Not Reportable 08/04/17 06:37 Irma Rods Not Reportable 08/04/17 06:37 Platelet Estimate Appears decreased 08/04/17 06:37 Clumped Platelets Not Reportable 08/04/17 06:37 Plt Clumps, EDTA Not Reportable 08/04/17 06:37 Large Platelets Not Reportable 08/04/17 06:37 Giant Platelets Not Reportable 08/04/17 06:37 Platelet Satelliting Not Reportable 08/04/17 06:37 Plt Morphology Comment Not Reportable 08/04/17 06:37 RBC Morphology Not Reportable 08/04/17 06:37 Dimorphic RBCs Not Reportable 08/04/17 06:37 Polychromasia Not Reportable 08/04/17 06:37 Hypochromasia 1+ 08/04/17 06:37 Poikilocytosis Not Reportable 08/04/17 06:37 Anisocytosis 2+ 08/04/17 06:37 Microcytosis Not Reportable 08/04/17 06:37 Macrocytosis Not Reportable 08/04/17 06:37 Spherocytes Not Reportable 08/04/17 06:37 Pappenheimer Bodies Not Reportable 08/04/17 06:37 Sickle Cells Not Reportable 08/04/17 06:37 Target Cells Not Reportable 08/04/17 06:37 Tear Drop Cells Not Reportable 08/04/17 06:37 Ovalocytes Not Reportable 08/04/17 06:37 Helmet Cells Not Reportable 08/04/17 06:37 [place] Bodies Not Reportable 08/04/17 06:37 [place] Rings Not Reportable 08/04/17 06:37 Jamila Cells Not Reportable 08/04/17 06:37 Bite Cells Not Reportable 08/04/17 06:37 Crenated Cell Not Reportable 08/04/17 06:37 Elliptocytes Not Reportable 08/04/17 06:37 Acanthocytes (Spur) Not Reportable 08/04/17 06:37 Rouleaux Not Reportable 08/04/17 06:37 Hemoglobin C Crystals Not Reportable 08/04/17 06:37 Schistocytes Not Reportable 08/04/17 06:37 Malaria parasites Not Reportable 08/04/17 06:37 Percent Retic 2.42 % (0.78-2.58) 07/19/17 06:05 Roberto Bodies Not Reportable 08/04/17 06:37 Haptoglobin 204 mg/dL (43-212) 07/03/17 09:31 Hem Pathologist Commnt No 08/04/17 06:37 PT 12.5 Sec. (12.2-14.9) 07/03/17 06:19 INR 0.89 (0.87-1.13) 07/03/17 06:19 APTT 24.6 Sec. (24.2-36.6) 07/03/17 09:31 Fibrinogen 350 mg/dl (211-480) 07/03/17 09:31 Lupus Anticoagulant see below H 07/06/17 17:55 LA PTT Baseline 47 sec (<=40) H 07/06/17 17:55 dRVVT Confirm Interp Negative (Negative) 07/06/17 17:55 dRVVT Screen 50:50 See scanned report 07/06/17 17:55 dRVVT Mix Interpret See scanned report 07/06/17 17:55 POC ABG pH 7.459 (7.35-7.45) H 07/13/17 08:26 POC ABG pCO2 40.4 (35-45) 07/13/17 08:26 POC ABG pO2 99 (80-105) 07/13/17 08:26 POC ABG HCO3 28.6 07/13/17 08:26 POC ABG Total CO2 30 07/13/17 08:26 POC ABG O2 Sat 98 07/13/17 08:26 POC ABG Base Excess 5 07/13/17 08:26 VBG pH 7.372 (7.320-7.420) 07/03/17 06:19 FiO2 30 % 07/13/17 08:26 Sodium 141 mmol/L (137-145) 08/06/17 06:48 Potassium 4.1 mmol/L (3.6-5.0) 08/06/17 06:48 Chloride 104.7 mmol/L (98-107) 08/06/17 06:48 Carbon Dioxide 24 mmol/L (22-30) 08/06/17 06:48 Anion Gap 16 mmol/L 08/06/17 06:48 BUN 20 mg/dL (7-17) H 08/06/17 06:48 Creatinine 0.5 mg/dL (0.7-1.2) L 08/06/17 06:48 Estimated GFR > 60 ml/min 08/06/17 06:48 BUN/Creatinine Ratio 40 % 08/06/17 06:48 Glucose 114 mg/dL (65-100) H 08/06/17 06:48 POC Glucose 125 (70-105) H 08/05/17 22:21 Lactic Acid 0.90 mmol/L (0.7-2.0) 07/06/17 07:28 Calcium 8.7 mg/dL (8.4-10.2) 08/06/17 06:48 Ionized Calcium 5.1 mg/dL (4.8-5.6) 07/07/17 12:21 Phosphorus 3.10 mg/dL (2.5-4.5) 08/06/17 06:48 Magnesium 1.70 mg/dL (1.7-2.3) 08/06/17 06:48 Iron 34 ug/dL (37-170) L 07/19/17 06:05 TIBC 260 mcg/dL (250-450) 07/19/17 06:05 % Saturation 13.08 % 07/19/17 06:05 Transferrin 227 mg/dl (192-382) 07/19/17 06:05 Ferritin 195.3 ng/mL (13.0-400.0) 07/19/17 06:05 Total Bilirubin 0.50 mg/dL (0.1-1.2) 07/26/17 Unknown AST 56 units/L (5-40) H 07/26/17 Unknown ALT 98 units/L (7-56) H 07/26/17 Unknown Alkaline Phosphatase 219 units/L (35-129) H 07/26/17 Unknown Total Creatine Kinase 38 units/L (30-135) 07/27/17 11:30 CK-MB (CK-2) < 1.0 ng/mL (0.0-4.0) 07/27/17 11:30 CK-MB (CK-2) Rel Index 2.6 (0-4) 07/27/17 11:30 Troponin T < 0.010 ng/mL (0.00-0.029) 07/27/17 11:30 C-Reactive Protein 10.30 mg/dL (0.00-1.30) H 07/12/17 17:01 NT-Pro-B Natriuret Pep 114.4 pg/mL (0-450) 07/07/17 12:21 Total Protein 7.6 g/dL (6.3-8.2) 07/26/17 Unknown Albumin 3.7 g/dL (3.9-5) L 07/26/17 Unknown Albumin/Globulin Ratio 0.9 % 07/26/17 Unknown Prealbumin 0.280 g/L (0.200-0.400) 07/31/17 07:15 Triglycerides 103 mg/dL (2-149) 07/05/17 22:04 Lipase 18 units/L (13-60) 07/03/17 05:28 Vitamin B12 1373 pg/mL (211-911) H 07/19/17 06:05 Folate 10.31 ng/mL (7.3-26.0) 07/19/17 06:05 TSH 0.561 mlU/mL (0.270-4.200) 07/04/17 14:38 HCG, Qual Negative (Negative) 07/03/17 06:19 HCG, Quant < 2 mIU/mL (0-4) 07/05/17 15:50 PTH Intact 285.9 pg/mL (15-65) H 07/06/17 07:28 Urine Color Yellow (Yellow) 07/05/17 Unknown Urine Turbidity Clear (Clear) 07/05/17 Unknown Urine pH 5.0 (5.0-7.0) 07/05/17 Unknown Ur Specific [place] 1.021 (1.003-1.030) 07/05/17 Unknown Urine Protein 100 mg/dl mg/dL (Negative) 07/05/17 Unknown Urine Glucose (UA) 50 mg/dL (Negative) 07/05/17 Unknown Urine Ketones Tr mg/dL (Negative) 07/05/17 Unknown Urine Blood Sm (Negative) 07/05/17 Unknown Urine Nitrite Neg (Negative) 07/05/17 Unknown Urine Bilirubin Neg (Negative) 07/05/17 Unknown Urine Urobilinogen < 2.0 mg/dL (<2.0) 07/05/17 Unknown Ur Leukocyte Esterase Tr (Negative) 07/05/17 Unknown Urine WBC (Auto) < 1.0 /HPF (0.0-6.0) 07/05/17 Unknown Urine RBC (Auto) 10.0 /HPF (0.0-6.0) 07/05/17 Unknown U Epithel Cells (Auto) 9.0 /HPF (0-13.0) 07/05/17 Unknown Urine Bacteria (Auto) 2+ /HPF (Negative) 07/05/17 Unknown Urine Mucus Few /HPF 07/03/17 Unknown Urine Eosinophils None seen (None Seen) 07/05/17 Unknown Urine Creatinine 237.2 mg/dL (0.1-20.0) H 07/05/17 Unknown Urine Microalbumin 39.9 mg/dL (0.1-34.0) H 07/05/17 Unknown Microalb/Creat Ratio 168.2 ug/mg 07/05/17 Unknown Urine Sodium 18 mmol/L 07/05/17 Unknown Urine Total Protein 170 mg/dL (5-11.8) H 07/05/17 Unknown [place] Screen Negative (Negative) 07/06/17 17:55 Proteinase 3 (PR3) Ab <1.0 AI (<1.0) 07/06/17 17:55 Myeloperoxidase Ab <1.0 AI (<1.0) 07/06/17 17:55 Complement C3 77 mg/dL (83-193) L 07/06/17 17:55 Complement C4 16 mg/dL (15-57) 07/06/17 17:55 Hepatitis A IgM Ab Non-reactive (NonReactive) 07/06/17 18:07 Hep Bs Antigen Non-reactive (Negative) 07/06/17 18:07 Hep B Core IgM Ab Non-reactive (NonReactive) 07/06/17 18:07 Hepatitis C Antibody Non-reactive (NonReactive) 07/06/17 18:07 HIV 1&2 Antibody Rapid Non react (Non React) 07/06/17 18:09 HIV P24 Antigen Non react (Non React) 07/06/17 18:09 Blood Type O POSITIVE 07/21/17 15:15 Antibody Screen Negative 07/21/17 15:15 Crossmatch See Detail 07/21/17 15:15
[2017-08-06 10:01] LABS: Anisocytosis 1+; Hypochromasia 2+; Platelet Estimate Consistent w Auto; Total Cells Counted 100
[2017-08-06] MEDS: NORMODYNE IV PRN (13:02)
--- NOTE | 2017-08-06 13:57 | Progress Note ---
Assessment and Plan EMMA likely ATN from low BP: -BP now better. Add back Norvasc. -Cr continues to improve. -Albumin X 3 ordered earlier. On NS hydration. -Renally dose all meds -Avoid nephrotoxic meds Severe Sepsis due to gangrenous bowel: -s/p removal of near complete small intestine Severe Anemia: -Transfuse PRN Etoh abuse: -Per primary Right liver lesion: -Per primary Renal Parameters much improved. Will sign off at this time. Pt can f/u with [facility] 1 week after discharge. Aaron Leos MD [phone] Subjective Date of service: 08/06/17 Principal diagnosis: Post-Op Resp Failure on MVS; Ischemic Bowel s/p Ex-Lap; EMMA Interval history: Denies CP, SHOB. Objective - Exam Narrative Exam: General appearance: AAOX3 EENT: ATNC Neck: Present: neck supple Respiratory: Coarse BS BL Heart: RRR, S1S2 Gastrointestinal: Soft, ND Integumentary: warm and dry Neurologic: Awake Musculoskeletal: Present: other (no edema to both lower extremities) Psychiatric: Appropriate mood - Vital Signs Vital signs: Vital Signs - 12hr 08/06/17 08/06/17 08:06 13:02 Temperature 98.5 F Pulse Rate 84 68 Respiratory 19 Rate Blood Pressure 188/107 174/89 O2 Sat by Pulse 99 Oximetry - Lab 08/06/17 06:48 08/06/17 06:48 Most recent lab results Calcium 8.7 mg/dL (8.4-10.2) 08/06/17 06:48 Phosphorus 3.10 mg/dL (2.5-4.5) 08/06/17 06:48 Magnesium 1.70 mg/dL (1.7-2.3) 08/06/17 06:48 Urine Creatinine 237.2 mg/dL (0.1-20.0) H 07/05/17 Unknown Urine Sodium 18 mmol/L 07/05/17 Unknown Urine Total Protein 170 mg/dL (5-11.8) H 07/05/17 Unknown
[2017-08-06] MEDS: NORVASC PO SCH (14:16)
[2017-08-06] MEDS ORDERED: TPN ADULT 1,800 ML IV SCH (20:00)
[2017-08-07] MEDS: MORPHINE IV PRN ×4 (02:47→19:53)
[2017-08-07] MEDS: ZOFRAN IV PRN ×3 (02:47→15:06)
[2017-08-07] MEDS: HEPARIN SUB-Q SCH ×3 (05:53→22:22)
[2017-08-07 06:30] LABS: BUN/Creatinine Ratio 32; Blood Urea Nitrogen 16 mg/dL (7-17); Calcium 8.4 mg/dL (8.4-10.2); Hemolysis Index 1
--- NOTE | 2017-08-07 09:28 | Progress Note ---
Assessment and Plan Assessment and plan: Severe Sepsis due to gangrenous bowel; s/p removal of near complete small intestine; completed abx per ID EMMA secondary to vasomotor nephropathy with underlying ATN; resolved. Peritoneal irritation due to infected bowel, resolved Severe Anemia, Transfuse as needed Ischemic/Gangrenous Bowel, s/p resection, pt. will need TPN lifelong. pre-albumin remains low, therefore patient needs TPN. I discussed with Case management. Leukocytosis, from sepsis, resolved Hypertensive urgency-resolved Menorraghia secondary to Fibroids Etoh use disorder, now stable, no sign of withdrawl Right liver lesion? Hemangioma, outpt f/u Multiple electrolyte abnormalities, repleted Hypothermia from sepsis-Resolved Cocaine abuse per history Severe protein calorie Malnutrition. Cont. TPN. The patient will need lifelong TPN due to near total small bowel resection. Positive Lupus anticoagulant, consulted hematology and recommended to f/u outpt DVT prophylaxis. Heparin Full code status Disposition. Await case management arrangement of home TPN. History Interval history: Less abdominal pain, no fever Hospitalist Physical - Physical exam Narrative exam: General: Not in acute distress, lying in bed HEENT:Normocephalic, atraumatic Neck:supple,no JVD Lungs: Clear to auscultation bilaterally, no crackles, no wheeze Heart:S1 and S2 regular, no murmurs, rubs or gallop Abd: soft, mild tender, no rebound tenderness, surgical wound midline.normal bowel sounds Ext: No edema, no clubbing, no cyanosis Neuro: AAO x 3, moves all extremities. - Constitutional Vitals: Temp Pulse Resp BP Pulse Ox 99.1 F 82 20 142/75 99 08/07/17 07:44 08/07/17 07:44 08/07/17 07:44 08/07/17 07:44 08/07/17 07:44 General appearance: Present: no acute distress Results - Labs CBC & Chem 7: 08/06/17 06:48 08/07/17 05:20 Labs: Laboratory Last Values WBC 5.7 K/mm3 (4.5-11.0) 08/06/17 06:48 RBC 3.49 M/mm3 (3.65-5.03) L 08/06/17 06:48 Hgb 9.2 gm/dl (10.1-14.3) L 08/06/17 06:48 Hct 27.2 % (30.3-42.9) L 08/06/17 06:48 MCV 78 fl (79-97) L 08/06/17 06:48 MCH 26 pg (28-32) L 08/06/17 06:48 MCHC 34 % (30-34) 08/06/17 06:48 RDW 22.1 % (13.2-15.2) H 08/06/17 06:48 Plt Count 142 K/mm3 (140-440) 08/06/17 06:48 Lymph % (Auto) Car Shagger 07/20/17 12:30 Cascade % (Auto) Car Shagger 07/20/17 12:30 Eos % (Auto) Car Shagger 07/20/17 12:30 Baso % (Auto) Car Shagger 07/20/17 12:30 Lymph # Car Shagger 07/20/17 12:30 Cascade # Car Shagger 07/20/17 12:30 Eos # Car Shagger 07/20/17 12:30 Baso # Car Shagger 07/20/17 12:30 Add Manual Diff Complete 08/06/17 06:48 Total Counted 100 08/06/17 06:48 Seg Neutrophils % Car Shagger 07/20/17 12:30 Seg Neuts % (Manual) 50.0 % (40.0-70.0) 08/06/17 06:48 Band Neutrophils % 0 % 08/06/17 06:48 Lymphocytes % (Manual) 40.0 % (13.4-35.0) H 08/06/17 06:48 Reactive Lymphs % (Man) 1.0 % 08/06/17 06:48 Monocytes % (Manual) 6.0 % (0.0-7.3) 08/06/17 06:48 Eosinophils % (Manual) 1.0 % (0.0-4.3) 08/06/17 06:48 Basophils % (Manual) 2.0 % (0.0-1.8) H 08/06/17 06:48 Metamyelocytes % 0 % 08/06/17 06:48 Myelocytes % 0 % 08/06/17 06:48 Promyelocytes % 0 % 08/06/17 06:48 Blast Cells % 0 % 08/06/17 06:48 Nucleated RBC % Not Reportable 08/06/17 06:48 Seg Neutrophils # Car Shagger 07/20/17 12:30 Seg Neutrophils # Man 2.9 K/mm3 (1.8-7.7) 08/06/17 06:48 Band Neutrophils # 0.0 K/mm3 08/06/17 06:48 Lymphocytes # (Manual) 2.3 K/mm3 (1.2-5.4) 08/06/17 06:48 Abs React Lymphs (Man) 0.1 K/mm3 08/06/17 06:48 Monocytes # (Manual) 0.3 K/mm3 (0.0-0.8) 08/06/17 06:48 Eosinophils # (Manual) 0.1 K/mm3 (0.0-0.4) 08/06/17 06:48 Basophils # (Manual) 0.1 K/mm3 (0.0-0.1) 08/06/17 06:48 Metamyelocytes # 0.0 K/mm3 08/06/17 06:48 Myelocytes # 0.0 K/mm3 08/06/17 06:48 Promyelocytes # 0.0 K/mm3 08/06/17 06:48 Blast Cells # 0.0 K/mm3 08/06/17 06:48 Pathologist Review 07/04/17 04:39 WBC Morphology Not Reportable 08/06/17 06:48 Hypersegmented Neuts Not Reportable 08/06/17 06:48 Hyposegmented Neuts Not Reportable 08/06/17 06:48 Hypogranular Neuts Not Reportable 08/06/17 06:48 Smudge Cells Not Reportable 08/06/17 06:48 Toxic Granulation Not Reportable 08/06/17 06:48 Toxic Vacuolation Not Reportable 08/06/17 06:48 Dohle Bodies Not Reportable 08/06/17 06:48 Pelger-Huet Anomaly Not Reportable 08/06/17 06:48 Irma Rods Not Reportable 08/06/17 06:48 Platelet Estimate Consistent w auto 08/06/17 06:48 Clumped Platelets Not Reportable 08/06/17 06:48 Plt Clumps, EDTA Not Reportable 08/06/17 06:48 Large Platelets Not Reportable 08/06/17 06:48 Giant Platelets Not Reportable 08/06/17 06:48 Platelet Satelliting Not Reportable 08/06/17 06:48 Plt Morphology Comment Not Reportable 08/06/17 06:48 RBC Morphology Not Reportable 08/06/17 06:48 Dimorphic RBCs Not Reportable 08/06/17 06:48 Polychromasia Not Reportable 08/06/17 06:48 Hypochromasia 2+ 08/06/17 06:48 Poikilocytosis Not Reportable 08/06/17 06:48 Anisocytosis 1+ 08/06/17 06:48 Microcytosis 1+ 08/06/17 06:48 Macrocytosis Not Reportable 08/06/17 06:48 Spherocytes Not Reportable 08/06/17 06:48 Pappenheimer Bodies Not Reportable 08/06/17 06:48 Sickle Cells Not Reportable 08/06/17 06:48 Target Cells Not Reportable 08/06/17 06:48 Tear Drop Cells Not Reportable 08/06/17 06:48 Ovalocytes Not Reportable 08/06/17 06:48 Helmet Cells Not Reportable 08/06/17 06:48 Barber-Mcadoo Bodies Not Reportable 08/06/17 06:48 Coral Rings Not Reportable 08/06/17 06:48 Jamila Cells Not Reportable 08/06/17 06:48 Bite Cells Not Reportable 08/06/17 06:48 Crenated Cell Not Reportable 08/06/17 06:48 Elliptocytes Not Reportable 08/06/17 06:48 Acanthocytes (Spur) Not Reportable 08/06/17 06:48 Rouleaux Not Reportable 08/06/17 06:48 Hemoglobin C Crystals Not Reportable 08/06/17 06:48 Schistocytes Not Reportable 08/06/17 06:48 Malaria parasites Not Reportable 08/06/17 06:48 Percent Retic 2.42 % (0.78-2.58) 07/19/17 06:05 Roberto Bodies Not Reportable 08/06/17 06:48 Haptoglobin 204 mg/dL (43-212) 07/03/17 09:31 Hem Pathologist Commnt No 08/06/17 06:48 PT 12.5 Sec. (12.2-14.9) 07/03/17 06:19 INR 0.89 (0.87-1.13) 07/03/17 06:19 APTT 24.6 Sec. (24.2-36.6) 07/03/17 09:31 Fibrinogen 350 mg/dl (211-480) 07/03/17 09:31 Lupus Anticoagulant see below H 07/06/17 17:55 LA PTT Baseline 47 sec (<=40) H 07/06/17 17:55 dRVVT Confirm Interp Negative (Negative) 07/06/17 17:55 dRVVT Screen 50:50 See scanned report 07/06/17 17:55 dRVVT Mix Interpret See scanned report 07/06/17 17:55 POC ABG pH 7.459 (7.35-7.45) H 07/13/17 08:26 POC ABG pCO2 40.4 (35-45) 07/13/17 08:26 POC ABG pO2 99 (80-105) 07/13/17 08:26 POC ABG HCO3 28.6 07/13/17 08:26 POC ABG Total CO2 30 07/13/17 08:26 POC ABG O2 Sat 98 07/13/17 08:26 POC ABG Base Excess 5 07/13/17 08:26 VBG pH 7.372 (7.320-7.420) 07/03/17 06:19 FiO2 30 % 07/13/17 08:26 Sodium 140 mmol/L (137-145) 08/07/17 05:20 Potassium 3.8 mmol/L (3.6-5.0) 08/07/17 05:20 Chloride 103.5 mmol/L (98-107) 08/07/17 05:20 Carbon Dioxide 25 mmol/L (22-30) 08/07/17 05:20 Anion Gap 15 mmol/L 08/07/17 05:20 BUN 16 mg/dL (7-17) 08/07/17 05:20 Creatinine 0.5 mg/dL (0.7-1.2) L 08/07/17 05:20 Estimated GFR > 60 ml/min 08/07/17 05:20 BUN/Creatinine Ratio 32 % 08/07/17 05:20 Glucose 73 mg/dL (65-100) 08/07/17 05:20 POC Glucose 153 (70-105) H 08/07/17 06:20 Lactic Acid 0.90 mmol/L (0.7-2.0) 07/06/17 07:28 Calcium 8.4 mg/dL (8.4-10.2) 08/07/17 05:20 Ionized Calcium 5.1 mg/dL (4.8-5.6) 07/07/17 12:21 Phosphorus 3.30 mg/dL (2.5-4.5) 08/07/17 05:20 Magnesium 1.90 mg/dL (1.7-2.3) 08/07/17 05:20 Iron 34 ug/dL (37-170) L 07/19/17 06:05 TIBC 260 mcg/dL (250-450) 07/19/17 06:05 % Saturation 13.08 % 07/19/17 06:05 Transferrin 227 mg/dl (192-382) 07/19/17 06:05 Ferritin 195.3 ng/mL (13.0-400.0) 07/19/17 06:05 Total Bilirubin 0.50 mg/dL (0.1-1.2) 07/26/17 Unknown AST 56 units/L (5-40) H 07/26/17 Unknown ALT 98 units/L (7-56) H 07/26/17 Unknown Alkaline Phosphatase 219 units/L (35-129) H 07/26/17 Unknown Total Creatine Kinase 38 units/L (30-135) 07/27/17 11:30 CK-MB (CK-2) < 1.0 ng/mL (0.0-4.0) 07/27/17 11:30 CK-MB (CK-2) Rel Index 2.6 (0-4) 07/27/17 11:30 Troponin T < 0.010 ng/mL (0.00-0.029) 07/27/17 11:30 C-Reactive Protein 10.30 mg/dL (0.00-1.30) H 07/12/17 17:01 NT-Pro-B Natriuret Pep 114.4 pg/mL (0-450) 07/07/17 12:21 Total Protein 7.6 g/dL (6.3-8.2) 07/26/17 Unknown Albumin 3.7 g/dL (3.9-5) L 07/26/17 Unknown Albumin/Globulin Ratio 0.9 % 07/26/17 Unknown Prealbumin 0.280 g/L (0.200-0.400) 07/31/17 07:15 Triglycerides 103 mg/dL (2-149) 07/05/17 22:04 Lipase 18 units/L (13-60) 07/03/17 05:28 Vitamin B12 1373 pg/mL (211-911) H 07/19/17 06:05 Folate 10.31 ng/mL (7.3-26.0) 07/19/17 06:05 TSH 0.561 mlU/mL (0.270-4.200) 07/04/17 14:38 HCG, Qual Negative (Negative) 07/03/17 06:19 HCG, Quant < 2 mIU/mL (0-4) 07/05/17 15:50 PTH Intact 285.9 pg/mL (15-65) H 07/06/17 07:28 Urine Color Yellow (Yellow) 07/05/17 Unknown Urine Turbidity Clear (Clear) 07/05/17 Unknown Urine pH 5.0 (5.0-7.0) 07/05/17 Unknown Ur Specific [place] 1.021 (1.003-1.030) 07/05/17 Unknown Urine Protein 100 mg/dl mg/dL (Negative) 07/05/17 Unknown Urine Glucose (UA) 50 mg/dL (Negative) 07/05/17 Unknown Urine Ketones Tr mg/dL (Negative) 07/05/17 Unknown Urine Blood Sm (Negative) 07/05/17 Unknown Urine Nitrite Neg (Negative) 07/05/17 Unknown Urine Bilirubin Neg (Negative) 07/05/17 Unknown Urine Urobilinogen < 2.0 mg/dL (<2.0) 07/05/17 Unknown Ur Leukocyte Esterase Tr (Negative) 07/05/17 Unknown Urine WBC (Auto) < 1.0 /HPF (0.0-6.0) 07/05/17 Unknown Urine RBC (Auto) 10.0 /HPF (0.0-6.0) 07/05/17 Unknown U Epithel Cells (Auto) 9.0 /HPF (0-13.0) 07/05/17 Unknown Urine Bacteria (Auto) 2+ /HPF (Negative) 07/05/17 Unknown Urine Mucus Few /HPF 07/03/17 Unknown Urine Eosinophils None seen (None Seen) 07/05/17 Unknown Urine Creatinine 237.2 mg/dL (0.1-20.0) H 07/05/17 Unknown Urine Microalbumin 39.9 mg/dL (0.1-34.0) H 07/05/17 Unknown Microalb/Creat Ratio 168.2 ug/mg 07/05/17 Unknown Urine Sodium 18 mmol/L 07/05/17 Unknown Urine Total Protein 170 mg/dL (5-11.8) H 07/05/17 Unknown CHELSEA Screen Negative (Negative) 07/06/17 17:55 Proteinase 3 (PR3) Ab <1.0 AI (<1.0) 07/06/17 17:55 Myeloperoxidase Ab <1.0 AI (<1.0) 07/06/17 17:55 Complement C3 77 mg/dL (83-193) L 07/06/17 17:55 Complement C4 16 mg/dL (15-57) 07/06/17 17:55 Hepatitis A IgM Ab Non-reactive (NonReactive) 07/06/17 18:07 Hep Bs Antigen Non-reactive (Negative) 07/06/17 18:07 Hep B Core IgM Ab Non-reactive (NonReactive) 07/06/17 18:07 Hepatitis C Antibody Non-reactive (NonReactive) 07/06/17 18:07 HIV 1&2 Antibody Rapid Non react (Non React) 07/06/17 18:09 HIV P24 Antigen Non react (Non React) 07/06/17 18:09 Blood Type O POSITIVE 07/21/17 15:15 Antibody Screen Negative 07/21/17 15:15 Crossmatch See Detail 07/21/17 15:15
[2017-08-07] MEDS: PEPCID PO SCH ×2 (09:32→22:21)
[2017-08-07] MEDS: NORVASC PO SCH (09:32)
[2017-08-07] MEDS: COREG PO SCH ×2 (09:32→22:20)
[2017-08-07] MEDS: NACL 0.9% 1000 ML 1,000 ML IV SCH ×2 (09:34→22:29)
[2017-08-07] MEDS ORDERED: TPN ADULT 1,800 ML IV SCH (20:00)
[2017-08-08] MEDS: MORPHINE IV PRN ×3 (01:42→10:41)
[2017-08-08] MEDS: HEPARIN SUB-Q SCH (06:52)
--- NOTE | 2017-08-08 10:06 | Discharge Summary ---
Providers - Providers Date of Admission: 07/03/17 08:40 Date of discharge: 08/08/17 Attending physician: HARISH GODINEZ 07/03/17 08:42 Consult to Physician [CONS] Routine Comment: DR MCINTOSH NOTIFIED 0940 Consulting Provider: SHADI HYMAN Physician Instructions: Reason For Exam: severe sepsis 07/03/17 08:59 Consult to Physician [CONS] Routine Comment: A/S NOTIFIED ARISTIDES Consulting Provider: MELINDA CALDERON Physician Instructions: Reason For Exam: severe sepsis, severe anemia, HTN URGENCY 07/03/17 11:55 PICC Line Insertion [Consult to PICC Line RN] [CONS] Stat Reason For Exam: venous access Type Line:: Midline 07/04/17 08:51 Consult to Physician [CONS] Routine Comment: Consulting Provider: HITESH NORTH Physician Instructions: Reason For Exam: Ileus, abdominal pain, hemagioma 07/05/17 10:18 Consult to Physician [CONS] Routine Comment: Consulting Provider: ANA ROSA CESPEDES Physician Instructions: Reason For Exam: EMMA 07/05/17 21:19 Consult to Dietitian/Nutrition [CONS] Routine Physician Instructions: Reason For Exam: Reason for Consult: Write/Manage TPN/PPN 07/05/17 21:24 Consult to PICC Line RN [CONS] Routine Reason For Exam: TPN Type Line:: PICC 07/13/17 15:39 Consult to Dietitian/Nutrition [CONS] Routine Physician Instructions: pt may only have 10ml/hr of recommended TF formula Reason For Exam: Reason for Consult: Write/Manage Tube Feeding 07/13/17 19:12 Physical Therapy Evaluation and Treat [CONS] Routine Comment: Reason For Exam: weakness s/p extubation 07/13/17 19:15 Occupational Therapy Evaluate and Treat [CONS] Routine Comment: Reason For Exam: weakness s/p extubation 07/18/17 16:25 Consult to Physician [CONS] Routine Comment: Consulting Provider: BENJY MEJIA Physician Instructions: Reason For Exam: positive lupus anticoagulant 08/01/17 14:24 Consult to Dietitian/Nutrition [CONS] Routine Physician Instructions: Reason For Exam: Reason for Consult: Write/Manage TPN/PPN Primary care physician: TRADE SHOW COORDINATOR Hospitalization Condition: Fair Hospital course: Patient is 42 yo with hypertension. She presented with nausea, vomiting abdominal pain. CT Abdomen without contrast did not show any acute changes. She was admitted and Surgeon consulted. Abdominal pain worsened and repeat CT abdomen showed ileus, bowel obstruction. Patient was diagnosed with ischemic bowel. She was taken to OR on 07/05/17 and had laparoscopy changed to exploratory laparotomy, small bowel resection and right hemicolectomy and temporary closure. On 07/06 had exploratory lap, abdominal washout and ABThera placement. On 07/09/17 had peritoneal lavage, enteroenterostomy and abdominal wall suturing. Patient was put on TPN , improved slowly. Serial PreAlbumin levels were measured and surgeon recommended she needs to be on TPN. Patient had prolonged stay because it took long time to arrange. She was subsequently discharged home on 08/10/17 on TPN, to follow as outpatient. Total time spent on discharge, 42 mins Disposition: DC/TX-[id number] ANOTHER TYPE HLTHCARE - Discharge Diagnoses (1) Fibroids Status: Acute (2) Hypothermia Status: Acute (3) Ischemia, bowel Status: Acute (4) Severe sepsis Status: Acute (5) Leukocytosis Status: Acute (6) Moderate protein-calorie malnutrition Status: Acute Core Measure Documentation - Palliative Care Palliative Care/ Comfort Measures: Not Applicable - Core Measures Any of the following diagnoses?: none Exam - Constitutional Vitals: Temp Pulse Resp BP Pulse Ox 98.8 F 73 20 134/73 88 08/08/17 07:58 08/08/17 07:58 08/08/17 07:58 08/08/17 07:58 08/08/17 07:58 Plan Activity: advance as tolerated Diet: regular, other (TPN) Special Instructions: home health RN Additional Instructions: 1.Follow up with PCP or [facility] in 1 week. 2.Follow up with Dr. Pérez, Surgeon in 1 week. 3.Continue TPN. 4.Home health Nurse Follow up with: PRIMARY CARE, [Primary Care Provider] - 3-5 Days Prescriptions: amLODIPine [Norvasc] 10 mg PO QDAY #30 tablet Carvedilol [Coreg] 12.5 mg PO BID #60 tablet Famotidine [Pepcid] 20 mg PO BID #30 tablet oxyCODONE /ACETAMINOPHEN [Percocet 5/325] 1 tab PO Q6HR PRN #20 tablet PRN Reason: Pain
[2017-08-08] MEDS: ZOFRAN IV PRN (10:41)
[2017-08-08] MEDS: COREG PO SCH (10:42)
[2017-08-08] MEDS: NORVASC PO SCH (10:42)
[2017-08-08] MEDS: TRANSDERM-SCOP TD SCH (10:42)
[2017-08-08] MEDS: PEPCID PO SCH (10:42)
[2017-08-08 10:43] VITALS: BP 133/72
== END 2017-08-08 13:10 | disposition home health service (06) | DRG 853 ==
LOC: ED 05:02 → 3A 08:40 → CC1 10:40 → 4A 13:57 → CC1 19:50 → 4A 07-04 08:49 → 3A 07-05 14:46 → CC1 07-05 22:10 → 3A 07-14 18:07
PROVIDERS: ADMIT Internal Medicine; ATTEND Internal Medicine
PROC: 30233N1 Transfusion of Nonautologous Red Blood Cells into Peripheral Vein, Percutaneous Approach (ICD-10-PCS; 2017-07-03)
PROC: 0DTF0ZZ Resection of Right Large Intestine, Open Approach (ICD-10-PCS; principal; 2017-07-05)
PROC: 0DB80ZZ Excision of Small Intestine, Open Approach (ICD-10-PCS; 2017-07-05)
PROC: 0WJP4ZZ Inspection of Gastrointestinal Tract, Percutaneous Endoscopic Approach (ICD-10-PCS; 2017-07-05)
PROC: 5A1955Z Respiratory Ventilation, Greater than 96 Consecutive Hours (ICD-10-PCS; 2017-07-05)
PROC: 0WQFXZZ Repair Abdominal Wall, External Approach (ICD-10-PCS; 2017-07-05)
PROC: 02H633Z Insertion of Infusion Device into Right Atrium, Percutaneous Approach (ICD-10-PCS; 2017-07-05)
PROC: B2141ZZ Fluoroscopy of Right Heart using Low Osmolar Contrast (ICD-10-PCS; 2017-07-05)
PROC: 4A033R1 Measurement of Arterial Saturation, Peripheral, Percutaneous Approach (ICD-10-PCS; 2017-07-06)
DX: A41.9 Sepsis, unspecified organism (principal); K65.9 Peritonitis, unspecified; N17.0 Acute kidney failure with tubular necrosis; E43 Unspecified severe protein-calorie malnutrition; J96.00 Acute respiratory failure, unspecified whether with hypoxia or hypercapnia; I31.3 Pericardial effusion (noninflammatory); K56.7 Ileus, unspecified; D68.62 Lupus anticoagulant syndrome; K55.9 Vascular disorder of intestine, unspecified; D64.9 Anemia, unspecified; I10 Essential (primary) hypertension; F17.200 Nicotine dependence, unspecified, uncomplicated; R68.0 Hypothermia, not associated with low environmental temperature; N93.8 Other specified abnormal uterine and vaginal bleeding; D25.9 Leiomyoma of uterus, unspecified; R65.20 Severe sepsis without septic shock; F10.20 Alcohol dependence, uncomplicated; I16.0 Hypertensive urgency; N92.0 Excessive and frequent menstruation with regular cycle; Y90.9 Presence of alcohol in blood, level not specified; K52.9 Noninfective gastroenteritis and colitis, unspecified; F14.10 Cocaine abuse, uncomplicated; K76.9 Liver disease, unspecified; Z91.19 Patient's noncompliance with other medical treatment and regimen; J20.9 Acute bronchitis, unspecified; Z68.26 Body mass index [BMI] 26.0-26.9, adult
CPT/HCPCS: 36415; 36600; 71045; 71046; 74018; 74176; 74177; 76856; 80048; 80053; 80074; 81001; 82043; 82140; 82330; 82550; 82553; 82607; 82728; 82747; 82803; 82805; 82962; 83010; 83550; 83690; 83735; 83880; 83970; 84100; 84134; 84156; 84300; 84443; 84466; 84478; 84484; 84702; 84703; 85007; 85014; 85018; 85025; 85027; 85045; 85384; 85610; 85613; 85730; 86021; 86038; 86140; 86160; 86850; 86900; 86901; 86920; 87040; 87070; 87086; 87205; 87806; 88307; 89050; 93005; 93010; 93306; 94002; 94003; J0330; J0360; J0610; J1170; J1450; J1644; J1956; J2060; J2185; J2250; J2270; J2370; J2405; J2543; J2704; J3010; J3370; J3475; J7030; J7040; J7050; J7070; P9016; P9047; Q9967

== ENCOUNTER 2017-08-21 14:37 | Outpatient (CLI) | payer OTHER ==
[2017-08-21 14:52] LABS: Hematocrit 31.9 % (30.3-42.9); Hemoglobin 10.4 gm/dl (10.1-14.3); Mean Corpuscular HGB Conc 33 % (30-34); Mean Corpuscular Hemoglobin 26 pg (28-32); Mean Corpuscular Volume 80 fl (79-97); Platelet Count 313 K/mm3 (140-440); Red Blood Count 3.97 M/mm3 (3.65-5.03); Red Cell Distribution Width 17.3 % (13.2-15.2)
[2017-08-21 15:29] LABS: Alanine Aminotransferase 337 units/L (7-56); Albumin 3.6 g/dL (3.9-5); BUN/Creatinine Ratio 37; Blood Urea Nitrogen 22 mg/dL (7-17); Calcium 8.9 mg/dL (8.4-10.2); Hemolysis Index 3
[2017-08-21 16:05] LABS: Total Cells Counted 100
[2017-08-21 16:07] LABS: Platelet Estimate Consistent w Auto; Target Cells Few; Tear Drop Cells Rare
[2017-08-21 19:31] LABS: Eosinophils # (Auto) 0.1 K/mm3 (0.0-0.4); Eosinophils % (Auto) 2.4 % (0.0-4.3); Monocytes # (Auto) 0.3 K/mm3 (0.0-0.8); Monocytes % (Auto) 5.2 % (0.0-7.3)
== END 2017-08-21 14:38 | disposition home or self-care (01) ==
LOC: LAB 14:37
PROVIDERS: ATTEND Nurse Practitioner Family
DX: K55.069 Acute infarction of intestine, part and extent unspecified (principal)
CPT/HCPCS: 36415; 80053; 83735; 84100; 84478; 85007; 85025

== ENCOUNTER 2017-08-28 11:50 | Outpatient (CLI) | payer OTHER ==
[2017-08-28 12:14] LABS: Hematocrit 32.5 % (30.3-42.9); Hemoglobin 10.6 gm/dl (10.1-14.3); Mean Corpuscular HGB Conc 33 % (30-34); Mean Corpuscular Hemoglobin 26 pg (28-32); Mean Corpuscular Volume 81 fl (79-97); Platelet Count 278 K/mm3 (140-440); Red Cell Distribution Width 16.6 % (13.2-15.2)
[2017-08-28 12:35] LABS: Alanine Aminotransferase 297 units/L (7-56); Albumin 3.6 g/dL (3.9-5); BUN/Creatinine Ratio 36; Blood Urea Nitrogen 18 mg/dL (7-17); Calcium 9.2 mg/dL (8.4-10.2); Hemolysis Index 11
[2017-08-28 12:55] LABS: Anisocytosis 1+; Basophils % (Manual) 0 % (0.0-1.8); Eosinophils % (Manual) 0 % (0.0-4.3); Poikilocytosis 1+; Total Cells Counted 100
[2017-08-28 12:57] LABS: Ovalocytes 1+; Schistocytes Few; Tear Drop Cells Few
[2017-08-28 12:59] LABS: Platelet Estimate Cons
== END 2017-08-28 11:51 | disposition home or self-care (01) ==
LOC: LAB 11:50
PROVIDERS: ATTEND Nurse Practitioner Family
DX: K55.069 Acute infarction of intestine, part and extent unspecified (principal); F10.10 Alcohol abuse, uncomplicated; I16.0 Hypertensive urgency; E66.9 Obesity, unspecified; I10 Essential (primary) hypertension; Z87.891 Personal history of nicotine dependence
CPT/HCPCS: 36415; 80053; 83735; 84100; 84478; 85007; 85025

== ENCOUNTER 2017-09-10 12:09 | Outpatient (CLI) | payer OTHER ==
[2017-09-10 12:29] LABS: Hematocrit 34.7 % (30.3-42.9); Hemoglobin 11.3 gm/dl (10.1-14.3); Mean Corpuscular HGB Conc 33 % (30-34); Mean Corpuscular Hemoglobin 26 pg (28-32); Mean Corpuscular Volume 80 fl (79-97); Platelet Count 261 K/mm3 (140-440); Red Blood Count 4.32 M/mm3 (3.65-5.03); Red Cell Distribution Width 15.3 % (13.2-15.2)
[2017-09-10 12:49] LABS: Alanine Aminotransferase 213 units/L (7-56); Albumin 3.4 g/dL (3.9-5); BUN/Creatinine Ratio 36; Blood Urea Nitrogen 18 mg/dL (7-17); Calcium 8.4 mg/dL (8.4-10.2); Hemolysis Index 22
[2017-09-10 13:13] LABS: Basophils % (Manual) 0 % (0.0-1.8); RBC Morphology Normal; Total Cells Counted 100
== END 2017-09-10 12:10 | disposition home or self-care (01) ==
LOC: LAB 12:09
PROVIDERS: ATTEND Nurse Practitioner Family
DX: K55.069 Acute infarction of intestine, part and extent unspecified (principal); I16.0 Hypertensive urgency; E66.9 Obesity, unspecified; F17.210 Nicotine dependence, cigarettes, uncomplicated
CPT/HCPCS: 36415; 80053; 83735; 84100; 84478; 85007; 85025

== ENCOUNTER 2017-09-19 12:43 | Outpatient (CLI) | payer MEDICAID ==
[2017-09-19 13:11] LABS: Mean Corpuscular HGB Conc 32 % (30-34); Mean Corpuscular Hemoglobin 26 pg (28-32); Mean Corpuscular Volume 81 fl (79-97); Platelet Count 288 K/mm3 (140-440); Red Blood Count 4.55 M/mm3 (3.65-5.03); Red Cell Distribution Width 15.6 % (13.2-15.2)
[2017-09-19 13:55] LABS: Alanine Aminotransferase 369 units/L (7-56); Albumin 3.7 g/dL (3.9-5); BUN/Creatinine Ratio 28; Blood Urea Nitrogen 14 mg/dL (7-17); Calcium 8.9 mg/dL (8.4-10.2); Hemolysis Index 4
[2017-09-19 15:17] LABS: Total Cells Counted 100
[2017-09-19 15:19] LABS: Anisocytosis 1+; Platelet Estimate Consistent w Auto; Poikilocytosis Few
[2017-09-19 15:20] LABS: Ovalocytes Few; Schistocytes Rare
== END 2017-09-19 12:44 | disposition home or self-care (01) ==
LOC: LAB 12:43
PROVIDERS: ATTEND Nurse Practitioner Family
DX: K55.069 Acute infarction of intestine, part and extent unspecified (principal); D64.9 Anemia, unspecified; F17.219 Nicotine dependence, cigarettes, with unspecified nicotine-induced disorders
CPT/HCPCS: 36415; 80053; 83735; 84100; 84478; 85007; 85025

== ENCOUNTER 2017-09-24 11:37 | Outpatient (CLI) | payer MEDICAID ==
[2017-09-24 12:15] LABS: Hematocrit 33.7 % (30.3-42.9); Hemoglobin 10.9 gm/dl (10.1-14.3); Mean Corpuscular HGB Conc 32 % (30-34); Mean Corpuscular Hemoglobin 26 pg (28-32); Mean Corpuscular Volume 81 fl (79-97); Platelet Count 299 K/mm3 (140-440); Red Blood Count 4.15 M/mm3 (3.65-5.03); Red Cell Distribution Width 15.3 % (13.2-15.2)
[2017-09-24 12:32] LABS: Alanine Aminotransferase 159 units/L (7-56); Albumin 3.8 g/dL (3.9-5); BUN/Creatinine Ratio 37; Blood Urea Nitrogen 22 mg/dL (7-17); Calcium 8.6 mg/dL (8.4-10.2); Hemolysis Index 8
[2017-09-24 13:22] LABS: Anisocytosis 1+; Basophils % (Manual) 0 % (0.0-1.8); Monocytes % (Manual) 0 % (0.0-7.3); Poikilocytosis 1+; Total Cells Counted 100
[2017-09-24 13:23] LABS: Ovalocytes Few; Schistocytes Rare; Tear Drop Cells Rare
[2017-09-24 13:24] LABS: Platelet Estimate Cons
== END 2017-09-24 11:38 | disposition home or self-care (01) ==
LOC: LAB 11:37
PROVIDERS: ATTEND Nurse Practitioner Family
DX: K55.069 Acute infarction of intestine, part and extent unspecified (principal); F17.210 Nicotine dependence, cigarettes, uncomplicated; D72.829 Elevated white blood cell count, unspecified; D64.9 Anemia, unspecified; F10.10 Alcohol abuse, uncomplicated; I10 Essential (primary) hypertension; E66.9 Obesity, unspecified; Z88.6 Allergy status to analgesic agent
CPT/HCPCS: 36415; 80053; 83735; 84100; 84478; 85007; 85025

== ENCOUNTER 2017-10-03 11:51 | Outpatient (CLI) | payer MEDICAID ==
[2017-10-03 12:19] LABS: Hematocrit 32.9 % (30.3-42.9); Hemoglobin 10.6 gm/dl (10.1-14.3); Mean Corpuscular HGB Conc 32 % (30-34); Mean Corpuscular Hemoglobin 26 pg (28-32); Mean Corpuscular Volume 81 fl (79-97); Platelet Count 300 K/mm3 (140-440); Red Blood Count 4.05 M/mm3 (3.65-5.03); Red Cell Distribution Width 14.9 % (13.2-15.2)
[2017-10-03 13:11] LABS: Alanine Aminotransferase 250 units/L (7-56); Albumin 3.8 g/dL (3.9-5); BUN/Creatinine Ratio 38; Blood Urea Nitrogen 15 mg/dL (7-17); Calcium 8.5 mg/dL (8.4-10.2); Hemolysis Index 3
[2017-10-03 13:15] LABS: Basophils % (Manual) 0 % (0.0-1.8); Total Cells Counted 100
[2017-10-03 13:16] LABS: Anisocytosis 1+; Poikilocytosis 1+
[2017-10-03 13:17] LABS: Ovalocytes Few
[2017-10-03 13:18] LABS: Acanthocytes Few; Platelet Estimate Cons; Schistocytes Rare
== END 2017-10-03 11:52 | disposition home or self-care (01) ==
LOC: XRAY 11:51
PROVIDERS: ATTEND Nurse Practitioner Family
DX: K55.069 Acute infarction of intestine, part and extent unspecified (principal); R79.89 Other specified abnormal findings of blood chemistry; I10 Essential (primary) hypertension; E66.9 Obesity, unspecified; F17.210 Nicotine dependence, cigarettes, uncomplicated
CPT/HCPCS: 36415; 80053; 83735; 84100; 84478; 85007; 85025

== ENCOUNTER 2017-10-12 10:29 | Outpatient (CLI) | payer MEDICAID ==
[2017-10-12 11:00] LABS: Basophils % (Auto) 0.7 % (0.0-1.8); Eosinophils # (Auto) 0.2 K/mm3 (0.0-0.4); Eosinophils % (Auto) 3.3 % (0.0-4.3); Hematocrit 33.9 % (30.3-42.9); Lymphocytes # (Auto) 1.7 K/mm3 (1.2-5.4); Lymphocytes % (Auto) 29.7 % (13.4-35.0); Mean Corpuscular HGB Conc 33 % (30-34); Mean Corpuscular Hemoglobin 26 pg (28-32); Mean Corpuscular Volume 79 fl (79-97); Monocytes # (Auto) 0.3 K/mm3 (0.0-0.8); Monocytes % (Auto) 4.8 % (0.0-7.3); Platelet Count 232 K/mm3 (140-440); Red Cell Distribution Width 15.2 % (13.2-15.2)
[2017-10-12 11:18] LABS: Alanine Aminotransferase 182 units/L (7-56); Albumin 3.7 g/dL (3.9-5); BUN/Creatinine Ratio 13; Blood Urea Nitrogen 8 mg/dL (7-17); Calcium 8.7 mg/dL (8.4-10.2); Hemolysis Index 4
== END 2017-10-12 10:30 | disposition home or self-care (01) ==
LOC: LAB 10:29
PROVIDERS: ATTEND Nurse Practitioner Family
DX: K55.069 Acute infarction of intestine, part and extent unspecified (principal); F17.210 Nicotine dependence, cigarettes, uncomplicated; I10 Essential (primary) hypertension; E66.9 Obesity, unspecified; Z88.5 Allergy status to narcotic agent; Z88.6 Allergy status to analgesic agent
CPT/HCPCS: 36415; 80053; 83735; 84100; 84478; 85025

== ENCOUNTER → 2017-10-17 | Outpatient (CLI) | payer MEDICAID ==
[2017-10-17 16:40] LABS: Basophils # (Auto) 0.1 K/mm3 (0.0-0.1); Basophils % (Auto) 0.8 % (0.0-1.8); Eosinophils # (Auto) 0.3 K/mm3 (0.0-0.4); Eosinophils % (Auto) 4.2 % (0.0-4.3); Hematocrit 33.7 % (30.3-42.9); Hemoglobin 10.8 gm/dl (10.1-14.3); Lymphocytes # (Auto) 2.1 K/mm3 (1.2-5.4); Lymphocytes % (Auto) 33.7 % (13.4-35.0); Mean Corpuscular HGB Conc 32 % (30-34); Mean Corpuscular Volume 79 fl (79-97); Monocytes # (Auto) 0.3 K/mm3 (0.0-0.8); Monocytes % (Auto) 4.6 % (0.0-7.3); Platelet Count 242 K/mm3 (140-440); Red Blood Count 4.28 M/mm3 (3.65-5.03); Red Cell Distribution Width 15.4 % (13.2-15.2)
[2017-10-17 16:45] LABS: Mean Corpuscular Hemoglobin 25 pg (28-32)
[2017-10-17 17:01] LABS: Alanine Aminotransferase 336 units/L (7-56); BUN/Creatinine Ratio 22; Blood Urea Nitrogen 13 mg/dL (7-17); Calcium 9.7 mg/dL (8.4-10.2); Hemolysis Index 0
== END | disposition home or self-care (01) ==
LOC: LAB 16:09
PROVIDERS: ATTEND Nurse Practitioner Family
DX: K55.069 Acute infarction of intestine, part and extent unspecified (principal); I10 Essential (primary) hypertension; E66.9 Obesity, unspecified; F17.210 Nicotine dependence, cigarettes, uncomplicated; Z88.5 Allergy status to narcotic agent; Z88.6 Allergy status to analgesic agent
CPT/HCPCS: 36415; 80053; 83735; 84100; 84478; 85025

== ENCOUNTER 2017-10-22 13:48 | Outpatient (CLI) | payer MEDICAID ==
[2017-10-22 14:12] LABS: Basophils # (Auto) 0.1 K/mm3 (0.0-0.1); Basophils % (Auto) 0.9 % (0.0-1.8); Eosinophils # (Auto) 0.5 K/mm3 (0.0-0.4); Eosinophils % (Auto) 6.7 % (0.0-4.3); Hematocrit 32.2 % (30.3-42.9); Hemoglobin 10.2 gm/dl (10.1-14.3); Lymphocytes # (Auto) 2.5 K/mm3 (1.2-5.4); Lymphocytes % (Auto) 35.2 % (13.4-35.0); Mean Corpuscular HGB Conc 32 % (30-34); Mean Corpuscular Volume 79 fl (79-97); Monocytes # (Auto) 0.3 K/mm3 (0.0-0.8); Monocytes % (Auto) 4.7 % (0.0-7.3); Platelet Count 338 K/mm3 (140-440); Red Blood Count 4.11 M/mm3 (3.65-5.03); Red Cell Distribution Width 15.3 % (13.2-15.2)
[2017-10-22 14:16] LABS: Mean Corpuscular Hemoglobin 25 pg (28-32)
[2017-10-22 14:45] LABS: Alanine Aminotransferase 126 units/L (7-56); Albumin 3.8 g/dL (3.9-5); BUN/Creatinine Ratio 28; Blood Urea Nitrogen 14 mg/dL (7-17); Calcium 8.6 mg/dL (8.4-10.2); Hemolysis Index 2
== END 2017-10-22 13:49 | disposition home or self-care (01) ==
LOC: LAB 13:48
PROVIDERS: ATTEND Nurse Practitioner Family
DX: K55.069 Acute infarction of intestine, part and extent unspecified (principal); I10 Essential (primary) hypertension; E66.9 Obesity, unspecified; Z87.891 Personal history of nicotine dependence; Z88.5 Allergy status to narcotic agent; Z88.6 Allergy status to analgesic agent
CPT/HCPCS: 36415; 80053; 83735; 84100; 84478; 85025

== ENCOUNTER 2018-10-21 05:23 | Observation (INO) | payer MEDICAID ==
--- NOTE | 2018-10-21 06:26 | Emergency Department Report ---
ED General Adult HPI - General Chief complaint: Tube Replacement Stated complaint: LINE IN CHEST BURST, LEG CRAMPS, LEO PAIN Time Seen by Provider: 10/21/18 06:11 Source: patient Mode of arrival: Ambulatory Limitations: No Limitations - History of Present Illness Initial comments: This is a 43-year-old female with a history of lupus and circulating antic oagulant syndrome. I believe the patient suffered extensive bowel ischemia secondary to the same. She has been on TPN for more than a year she states. 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 She states that her catheter splint while she was flushing it and began to leak. Therefore she came to the emergency department for the catheter malfunction and replacement. She does not complain of any chest symptoms or acute shortness of breath. She states that she occasionally has chills but does not believe she has recently had a fever. 2018 discharge summary: Hospitalization Condition: Stable Hospital course: Brief History 42 y/o female with History of extensive bowel ischemia -gangrene of majority of small bowel and right colon, underwent diagnostic laparoscopy, converted to exploratory laparotomy, small bowel resection, right hemicolectomy, temporary closure of abdomen on 07/06/17 and then peritoneal Washing, enterocolostomy and closure of abdominal wall on 07/09/17. Approximately 30 cm of viable small bowel from ligament of treitz, transverse colon and remainder of colon viable. Unclear etiology, however after extensive w/u it was felt to be thrombosis due to lupus anticoagulant. Readmitted with a febrile illness and gram-negative bacteremia likely associated with PICC line used for TPN. She was admitted for further evaluation and management. Discharge diagnosis: /Sepsis, present on admission. Due to gram-negative bacteremia likely associated with PICC line used for TPN started On Cefepime, which stopped now since 11/06 ID Physician following. plan to do levaquin 750 mg po qday total 14 days until 11/16/17, but patient cannot absorb po, restarted on rocephin Old PICC line removed and new PICC line placed after clearance blood Cx will need iv abx to go home with Upon discharge wll continue ceftriaxone 2 g IV qday total 14 days until 11/16/17. 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 - oral diet for comfort only, will need life long TPN /Nausea, diarrhea due to short gut syndrome. Need TPN for nutrition, TPN was resumed /Acute DVT right Brachial vein. Started Lovenox 1mg/kg bid. Its OK to start anticoag as per GI -: hour(s) Associated Symptoms: denies other symptoms - Related Data Previous Rx's Medication Instructions Recorded Last Taken Type Albuterol Sulfate [Proventil Hfa] 6.7 gm IH Q4H PRN 30 Days 11/08/17 Unknown Rx hfa.aer.ad Carvedilol [Coreg] 12.5 mg PO BID #60 tablet 11/08/17 Unknown Rx Enoxaparin [Lovenox] 60 mg SUB-Q Q12HR #60 syringe 11/08/17 Unknown Rx Total Parenteral Nutrition [TPN 3,000 ml IV DAILY@2000 ml 11/08/17 Unknown Rx Adult] amLODIPine [Norvasc] 10 mg PO QDAY #30 tablet 11/08/17 Unknown Rx cefTRIAXone [Rocephin] 1 gm IV Q24HR #8 vial 11/08/17 Unknown Rx Allergies Allergy/AdvReac Type Severity Reaction Status Date / Time acetaminophen [From Percocet] Allergy Rash Verified 10/10/17 14:32 oxycodone [From Percocet] Allergy Rash Verified 10/10/17 14:32 ED Review of Systems ROS: Stated complaint: LINE IN CHEST BURST, LEG CRAMPS, LEO PAIN Other details as noted in HPI Constitutional: denies: fever Eyes: denies: eye pain, eye discharge, vision change ENT: denies: ear pain, throat pain Respiratory: denies: cough, shortness of breath, wheezing Cardiovascular: denies: chest pain, palpitations Endocrine: no symptoms reported Gastrointestinal: denies: abdominal pain, nausea, diarrhea Genitourinary: denies: urgency, dysuria, discharge Musculoskeletal: denies: back pain, joint swelling, arthralgia Skin: denies: rash, lesions Neurological: denies: headache, weakness, paresthesias Psychiatric: denies: anxiety, depression Hematological/Lymphatic: denies: easy bleeding, easy bruising ED Past Medical Hx - Past Medical History Previous Medical History?: Yes Hx Hypertension: Yes Hx Deep Vein Thrombosis: No Additional medical history: Bowel perforation due to ischemia. 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 - Surgical History Past Surgical History?: Yes Hx Pacemaker: No Hx Internal Defibrillator: No Additional Surgical History: Right upper arm PICC line placement. Bowel resection - Social History Smoking Status: Current Every Day Smoker Substance Use Type: Alcohol - Medications Home Medications: Home Medications Medication Instructions Recorded Confirmed Last Taken Type Albuterol Sulfate [Proventil Hfa] 6.7 gm IH Q4H PRN 30 Days 11/08/17 Unknown Rx hfa.[email or web address].ad Carvedilol [Coreg] 12.5 mg PO BID #60 tablet 11/08/17 Unknown Rx Enoxaparin [Lovenox] 60 mg SUB-Q Q12HR #60 syringe 11/08/17 Unknown Rx Total Parenteral Nutrition [TPN 3,000 ml IV DAILY@2000 ml 11/08/17 Unknown Rx Adult] amLODIPine [Norvasc] 10 mg PO QDAY #30 tablet 11/08/17 Unknown Rx cefTRIAXone [Rocephin] 1 gm IV Q24HR #8 vial 11/08/17 Unknown Rx ED Physical Exam - General Limitations: No Limitations General appearance: alert, in no apparent distress, cachectic - Head Head exam: Present: atraumatic, normocephalic - Eye Eye exam: Present: normal appearance. Absent: scleral icterus - ENT ENT exam: Present: mucous membranes moist - Neck Neck exam: Present: normal inspection. Absent: tenderness, meningismus - Respiratory Respiratory exam: Present: normal lung sounds bilaterally, other (the catheter is still in place indwelling in the chest. The area of line rupture has been previously taped.). Absent: respiratory distress - Cardiovascular Cardiovascular Exam: Present: regular rate, normal rhythm. Absent: systolic murmur, diastolic murmur, rubs, gallop - GI/Abdominal GI/Abdominal exam: Present: soft, normal bowel sounds. Absent: distended, tenderness, guarding, rebound, rigid - Extremities Exam Extremities exam: Present: normal inspection - Back Exam Back exam: Present: normal inspection - Neurological Exam Neurological exam: Present: alert, oriented X3, CN II-XII intact. Absent: motor sensory deficit - Psychiatric Psychiatric exam: Present: normal affect, normal mood - Skin Skin exam: Present: warm, dry, intact, normal color. Absent: rash ED Course Vital Signs 10/21/18 10/21/18 10/21/18 05:32 06:29 07:01 Temperature 97.9 F 98.5 F Pulse Rate 100 H 63 57 L Respiratory 18 12 15 Rate Blood Pressure 134/89 116/70 Blood Pressure 116/70 [Left] O2 Sat by Pulse 100 100 Oximetry - Reevaluation(s) Reevaluation #1: Spoke with Dr. Nicholas, vascular. Make patient nothing by mouth. Spoke with hosp italist and obviously this to their service. Repleted potassium and magnesium. 10/21/18 07:52 ED Medical Decision Making - Lab Data Result diagrams: 10/21/18 06:01 10/21/18 06:01 Laboratory Results - last 24 hr 10/21/18 10/21/18 10/21/18 06:01 06:01 06:28 WBC 5.8 RBC 4.60 Hgb 9.8 L Hct 32.4 MCV 70 L MCH 21 L MCHC 30 RDW 22.6 H Plt Count 340 Lymph % (Auto) 30.2 [place] % (Auto) 6.9 Eos % (Auto) 3.8 Baso % (Auto) 1.5 Lymph # 1.7 [place] # 0.4 Eos # 0.2 Baso # 0.1 Seg Neutrophils % 57.6 Seg Neutrophils # 3.3 PT 15.9 H INR 1.30 H APTT 30.5 Sodium 145 Potassium 3.2 L Chloride 109.9 H Carbon Dioxide 20 L Anion Gap 18 BUN 13 Creatinine 0.8 Estimated GFR > 60 BUN/Creatinine Ratio 16 Glucose 123 H Calcium 8.4 Magnesium Total Bilirubin Direct Bilirubin AST ALT Alkaline Phosphatase Total Protein Albumin Albumin/Globulin Ratio 10/21/18 10/21/18 06:28 06:28 WBC RBC Hgb Hct MCV MCH MCHC RDW Plt Count Lymph % (Auto) [place] % (Auto) Eos % (Auto) Baso % (Auto) Lymph # [place] # Eos # Baso # Seg Neutrophils % Seg Neutrophils # PT INR APTT Sodium Potassium Chloride Carbon Dioxide Anion Gap BUN Creatinine Estimated GFR BUN/Creatinine Ratio Glucose Calcium Magnesium 1.10 L Total Bilirubin 0.40 Direct Bilirubin < 0.2 AST 62 H ALT 72 H Alkaline Phosphatase 113 Total Protein 6.2 L Albumin 3.1 L Albumin/Globulin Ratio 1.0 - Radiology Data Radiology results: report reviewed (catheter in place no acute process) Critical care attestation.: If time is entered above; I have spent that time in minutes in the direct care of this critically ill patient, excluding procedure time. ED Disposition Clinical Impression: Hypokalemia, Hypomagnesemia, Lupus Malfunction of peripheral inserted central catheter Qualifiers: Encounter type: initial encounter Qualified Code(s): T82.598A - Other mechanical complication of other cardiac and vascular devices and implants, initial encounter Anemia Qualifiers: Anemia type: unspecified type Qualified Code(s): D64.9 - Anemia, unspecified Disposition: 09 OP ADMIT IP TO THIS HOSP Is pt being admited?: Yes Does the pt Need Aspirin: No Condition: Stable Referrals: PRADIP KEY MD [Primary Care Provider] - 3-5 Days Time of Disposition: 07:55
[2018-10-21] MEDS ORDERED: NACL 0.9% 1000 ML 1,000 ML IV ONE (06:28)
[2018-10-21 06:37] LABS: Basophils # (Auto) 0.1 K/mm3 (0.0-0.1); Basophils % (Auto) 1.5 % (0.0-1.8); Eosinophils # (Auto) 0.2 K/mm3 (0.0-0.4); Eosinophils % (Auto) 3.8 % (0.0-4.3); Hematocrit 32.4 % (30.3-42.9); Hemoglobin 9.8 gm/dl (10.1-14.3); Lymphocytes # (Auto) 1.7 K/mm3 (1.2-5.4); Lymphocytes % (Auto) 30.2 % (13.4-35.0); Mean Corpuscular HGB Conc 30 % (30-34); Mean Corpuscular Volume 70 fl (79-97); Monocytes # (Auto) 0.4 K/mm3 (0.0-0.8); Monocytes % (Auto) 6.9 % (0.0-7.3); Platelet Count 340 K/mm3 (140-440); Red Cell Distribution Width 22.6 % (13.2-15.2)
[2018-10-21 06:43] LABS: BUN/Creatinine Ratio 16; Blood Urea Nitrogen 13 mg/dL (7-17); Calcium 8.4 mg/dL (8.4-10.2); Hemolysis Index 4
--- NOTE | 2018-10-21 06:44 | XRay Report ---
CHEST 1 VIEW 6:27 AM INDICATION / CLINICAL INFORMATION: Hypertension. Catheter malfunction. COMPARISON: 11/07/2017. FINDINGS: SUPPORT DEVICES: There is a right jugular CVL with the tip overlying the mid SVC, unchanged. HEART / MEDIASTINUM: The heart size and pulmonary vasculature are normal. LUNGS / PLEURA: No significant pulmonary or pleural abnormality. No pneumothorax. ADDITIONAL FINDINGS: No significant additional findings. IMPRESSION: No acute abnormality or significant change. No abnormality of the right jugular CVL is se en. Signer Name: Chong Liu MD Signed: 10/21/2018 6:39 AM Workstation Name: [id number]
[2018-10-21 06:49] LABS: INR 1.3 (0.87-1.13); Partial Thromboplastin Time 30.5 Sec. (24.2-36.6)
[2018-10-21 07:01] LABS: Alanine Aminotransferase 72 units/L (7-56); Albumin 3.1 g/dL (3.9-5)
[2018-10-21 07:02] LABS: Bilirubin,Direct < 0.2 mg/dL (0-0.2)
[2018-10-21] MEDS ORDERED: MAGNESIUM SULFATE 2GM/50ML 2 GM/50 ML BAG IV ONE (07:28)
[2018-10-21] MEDS: KCL 10MEQ/100ML 10 MEQ/100 ML BAG IV SCH ×3 (08:35→13:48)
[2018-10-21] MEDS ORDERED: PROAIR IH PRN (09:38)
[2018-10-21] MEDS ORDERED: MORPHINE IV PRN (09:39)
[2018-10-21] MEDS ORDERED: ZOFRAN IV PRN (09:39)
[2018-10-21] MEDS ORDERED: SODIUM CHLORIDE FLUSH SYRINGE 10 ML IV PRN (09:39)
--- NOTE | 2018-10-21 09:45 | History and Physical Report ---
History of Present Illness Date of admission: 10/21/18 07:49 Medications and Allergies Allergies Allergy/AdvReac Type Severity Reaction Status Date / Time acetaminophen [From Percocet] Allergy Rash Verified 10/10/17 14:32 oxycodone [From Percocet] Allergy Rash Verified 10/10/17 14:32 Home Medications Medication Instructions Recorded Confirmed Last Taken Type Albuterol Sulfate [Proventil Hfa] 6.7 gm IH Q4H PRN 30 Days 11/08/17 Unknown Rx hfa.aer.ad Carvedilol [Coreg] 12.5 mg PO BID #60 tablet 11/08/17 Unknown Rx Enoxaparin [Lovenox] 60 mg SUB-Q Q12HR #60 syringe 11/08/17 Unknown Rx Total Parenteral Nutrition [TPN 3,000 ml IV DAILY@2000 ml 11/08/17 Unknown Rx Adult] amLODIPine [Norvasc] 10 mg PO QDAY #30 tablet 11/08/17 Unknown Rx cefTRIAXone [Rocephin] 1 gm IV Q24HR #8 vial 11/08/17 Unknown Rx Active Meds: Active Medications Albuterol (Proair) puff IH Q4H PRN PRN Reason: Shortness Of Breath Amlodipine Besylate (Norvasc) 10 mg PO QDAY RADHA Carvedilol (Coreg) 12.5 mg PO BID RADHA Sodium Chloride (Nacl 0.9% 1000 Ml) 1,000 mls @ 125 mls/hr IV ONCE ONE Stop: 10/21/18 14:27 Last Admin: 10/21/18 06:43 Dose: 125 mls/hr Documented by: Potassium Chloride (Kcl 10meq/100ml) 10 meq in 100 mls @ 100 mls/hr IV Q1H RADHA Stop: 10/21/18 12:29 Morphine Sulfate (Morphine) 2 mg IV Q4H PRN PRN Reason: Pain, Moderate (4-6) Ondansetron HCl (Zofran) 4 mg IV Q8H PRN PRN Reason: Nausea And Vomiting Sodium Chloride (Sodium Chloride Flush Syringe 10 Ml) 10 ml IV PRN PRN PRN Reason: LINE FLUSH Exam - Constitutional Vitals: Temp Pulse Resp BP Pulse Ox 98.5 F 57 L 15 116/70 100 10/21/18 06:29 10/21/18 07:01 10/21/18 07:01 10/21/18 07:01 10/21/18 06:29 Results - Labs CBC & Chem 7: 10/21/18 06:01 10/21/18 06:01 Labs: Laboratory Last Values WBC 5.8 K/mm3 (4.5-11.0) 10/21/18 06:01 RBC 4.60 M/mm3 (3.65-5.03) 10/21/18 06:01 Hgb 9.8 gm/dl (10.1-14.3) L 10/21/18 06:01 Hct 32.4 % (30.3-42.9) 10/21/18 06:01 MCV 70 fl (79-97) L 10/21/18 06:01 MCH 21 pg (28-32) L 10/21/18 06:01 MCHC 30 % (30-34) 10/21/18 06:01 RDW 22.6 % (13.2-15.2) H 10/21/18 06:01 Plt Count 340 K/mm3 (140-440) 10/21/18 06:01 Lymph % (Auto) 30.2 % (13.4-35.0) 10/21/18 06:01 [place] % (Auto) 6.9 % (0.0-7.3) 10/21/18 06:01 Eos % (Auto) 3.8 % (0.0-4.3) 10/21/18 06:01 Baso % (Auto) 1.5 % (0.0-1.8) 10/21/18 06:01 Lymph # 1.7 K/mm3 (1.2-5.4) 10/21/18 06:01 [place] # 0.4 K/mm3 (0.0-0.8) 10/21/18 06:01 Eos # 0.2 K/mm3 (0.0-0.4) 10/21/18 06:01 Baso # 0.1 K/mm3 (0.0-0.1) 10/21/18 06:01 Seg Neutrophils % 57.6 % (40.0-70.0) 10/21/18 06:01 Seg Neutrophils # 3.3 K/mm3 (1.8-7.7) 10/21/18 06:01 PT 15.9 Sec. (12.2-14.9) H 10/21/18 06:28 INR 1.30 (0.87-1.13) H 10/21/18 06:28 APTT 30.5 Sec. (24.2-36.6) 10/21/18 06:28 Sodium 145 mmol/L (137-145) 10/21/18 06:01 Potassium 3.2 mmol/L (3.6-5.0) L 10/21/18 06:01 Chloride 109.9 mmol/L (98-107) H 10/21/18 06:01 Carbon Dioxide 20 mmol/L (22-30) L 10/21/18 06:01 18 mmol/L 10/21/18 06:01 BUN 13 mg/dL (7-17) 10/21/18 06:01 0.8 mg/dL (0.7-1.2) 10/21/18 06:01 Estimated GFR > 60 ml/min 10/21/18 06:01 16 % 10/21/18 06:01 Glucose 123 mg/dL (65-100) H 10/21/18 06:01 Calcium 8.4 mg/dL (8.4-10.2) 10/21/18 06:01 Magnesium 1.10 mg/dL (1.7-2.3) L 10/21/18 06:28 0.40 mg/dL (0.1-1.2) 10/21/18 06:28 < 0.2 mg/dL (0-0.2) 10/21/18 06:28 AST 62 units/L (5-40) H 10/21/18 06:28 ALT 72 units/L (7-56) H 10/21/18 06:28 113 units/L (35-129) 10/21/18 06:28 6.2 g/dL (6.3-8.2) L 10/21/18 06:28 3.1 g/dL (3.9-5) L 10/21/18 06:28 1.0 % 10/21/18 06:28 Assessment and Plan Assessment and plan: Line infection, continue rocephin till 11/16
[2018-10-21] MEDS ORDERED: COREG PO SCH (10:00)
[2018-10-21] MEDS ORDERED: NORVASC PO SCH (10:00)
[2018-10-21] MEDS ORDERED: PROVENTIL IH PRN (10:35)
[2018-10-21] MEDS ORDERED: KCL 10MEQ/100ML 20 MEQ/200 ML BAG IV ONE (10:59)
[2018-10-21] MEDS ORDERED: ROCEPHIN/NS 1 GM/50 ML 1 GM/50 ML BAG IV SCH (11:30)
[2018-10-21] MEDS ORDERED: TORADOL IV PRN (12:30)
[2018-10-21] MEDS ORDERED: HEPARIN 10,000 UNITS/10 ML ONE (13:30)
[2018-10-21] MEDS ORDERED: HEPARIN/NS 5000 UNIT/500ML(CATH LAB) 500 ML IR ONE (13:30)
[2018-10-21] MEDS ORDERED: NACL 0.9% 250ML 250 ML ONE (13:31)
--- NOTE | 2018-10-21 13:58 | Consultation ---
History of Present Illness - Reason for Consult Consult date: 10/21/18 Reardon malfunction - History of Present Illness This is a 43-year-old female with a history of lupus and circulating antico agulant syndrome. I believe the patient suffered extensive bowel ischemia secondary to the same. She has been on TPN for more than a year she states. 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 She states that her catheter splint while she was flushing it and began to leak. Therefore she came to the emergency department for the catheter malfunction and replacement. She does not complain of any chest symptoms or acute shortness of breath. She states that she occasionally has chills but does not believe she has recently had a fever. No fevers. Reardon catheter had injection related rupture. Needs to have new catheter placed. Medications and Allergies Allergies Allergy/AdvReac Type Severity Reaction Status Date / Time acetaminophen [From Percocet] Allergy Rash Verified 10/10/17 14:32 oxycodone [From Percocet] Allergy Rash Verified 10/10/17 14:32 Home Medications Medication Instructions Recorded Confirmed Last Taken Type Albuterol Sulfate [Proventil Hfa] 6.7 gm IH Q4H PRN 30 Days 11/08/17 10/21/18 Unknown Rx hfa.aer.ad Amitriptyline [Elavil] 25 mg PO QHS 10/21/18 10/21/18 Unknown History Ibuprofen [Motrin] 800 mg PO Q8HR PRN 10/21/18 10/21/18 Unknown History Active Meds: Active Medications Albuterol (Proventil) 2.5 mg IH Q4HRT PRN PRN Reason: Shortness Of Breath Amitriptyline HCl (Elavil) 25 mg PO QHS [facility] Amlodipine Besylate (Norvasc) 10 mg PO QDAY [facility] Last Admin: 10/21/18 12:26 Dose: 10 mg Documented by: Carvedilol (Coreg) 12.5 mg PO BID [facility] Last Admin: 10/21/18 12:26 Dose: 12.5 mg Documented by: Sodium Chloride (Nacl 0.9% 1000 Ml) 1,000 mls @ 125 mls/hr IV ONCE ONE Stop: 10/21/18 14:27 Last Admin: 10/21/18 06:43 Dose: 125 mls/hr Documented by: Ceftriaxone Sodium (Rocephin/Ns 1 Gm/50 Ml) 1 gm in 50 mls @ 100 mls/hr IV Q24HR [facility]; Protocol Amino Acids/Electrolytes/Dextrose (Tpn Adult) 2,016 mls @ 84 mls/hr IV DAILY@1999 [facility]; Protocol Stop: 10/22/18 19:59 Fat Emulsion Intravenous (Intralipid 20%) 250 mls @ 21 mls/hr IV DAILY@1999 [facility] Stop: 10/22/18 08:00 Ketorolac Tromethamine (Toradol) 15 mg IV Q6H PRN PRN Reason: Pain, Mild (1-3) Morphine Sulfate (Morphine) 2 mg IV Q4H PRN PRN Reason: Pain, Moderate (4-6) Last Admin: 10/21/18 12:27 Dose: 2 mg Documented by: Ondansetron HCl (Zofran) 4 mg IV Q8H PRN PRN Reason: Nausea And Vomiting Sodium Chloride (Sodium Chloride Flush Syringe 10 Ml) 10 ml IV PRN PRN PRN Reason: LINE FLUSH Review of Systems All systems: negative (see HPI) Exam - Constitutional Vitals: Temp Pulse Resp BP Pulse Ox 98.2 F 55 L 19 176/89 100 10/21/18 12:23 10/21/18 12:23 10/21/18 12:23 10/21/18 12:23 10/21/18 12:23 General appearance: Present: no acute distress - EENT Eyes: Present: EOM intact ENT: hearing intact - Respiratory Respiratory effort: normal - Extremities Extremities: abnormal (right reardon catheter without erythema or purulence) - Psychiatric Psychiatric: appropriate mood/affect, cooperative Results - Labs CBC & Chem 7: 10/21/18 06:01 10/21/18 06:01 Labs: Abnormal lab results 10/21/18 10/21/18 10/21/18 Range/Units 06:01 06:01 06:28 Hgb 9.8 L (10.1-14.3) gm/dl MCV 70 L (79-97) fl MCH 21 L (28-32) pg RDW 22.6 H (13.2-15.2) % PT 15.9 H (12.2-14.9) Sec. INR 1.30 H (0.87-1.13) Potassium 3.2 L (3.6-5.0) mmol/L Chloride 109.9 H (98-107) mmol/L Carbon Dioxide 20 L (22-30) mmol/L Glucose 123 H (65-100) mg/dL Magnesium (1.7-2.3) mg/dL AST (5-40) units/L ALT (7-56) units/L Total Protein (6.3-8.2) g/dL Albumin (3.9-5) g/dL 10/21/18 10/21/18 Range/Units 06:28 06:28 Hgb (10.1-14.3) gm/dl MCV (79-97) fl MCH (28-32) pg RDW (13.2-15.2) % PT (12.2-14.9) Sec. INR (0.87-1.13) Potassium (3.6-5.0) mmol/L Chloride (98-107) mmol/L Carbon Dioxide (22-30) mmol/L Glucose (65-100) mg/dL Magnesium 1.10 L (1.7-2.3) mg/dL AST 62 H (5-40) units/L ALT 72 H (7-56) units/L Total Protein 6.2 L (6.3-8.2) g/dL Albumin 3.1 L (3.9-5) g/dL Assessment and Plan 43 year old female with reardon catheter malfunction and short gut syndrome. Plan for new reardon catheter de,mechelle placement and subsequent old reardon catheter removal. R/B/A discussed. Can be discharged from vascular perspective after procedure.
[2018-10-21] MEDS: SUBLIMAZE ONE ×3 (14:15→14:25)
[2018-10-21] MEDS: VERSED ONE ×3 (14:15→14:23)
[2018-10-21] MEDS: XYLOCAINE 1%/ EPI 1:100,000 INFILTRATI ONE ×3 (14:16→14:29)
[2018-10-21] MEDS ORDERED: SUBLIMAZE ONE (14:28)
[2018-10-21] MEDS ORDERED: VERSED ONE (14:28)
[2018-10-21] MEDS ORDERED: XYLOCAINE 1%/ EPI 1:100,000 INFILTRATI ONE (14:31)
--- NOTE | 2018-10-21 15:33 | Post Operative Note ---
Date of procedure: 10/21/18 Pre-op diagnosis: Malfunctioning hooper Post-op diagnosis: same Procedure: 1. Ultrasound guided access of the right internal jugular vein 2. Fluoroscopic guided placement of a right internal jugular tunneled cuffed single lumen Hooper catheter, de mechelle 3. Fluoroscopic guided removal of a right internal jugular tunneled cuffed single lumen Hooper catheter Anesthesia: local (w/ conscious sedation) Surgeon: TACO LAWRENCE Estimated blood loss: minimal Condition: stable Disposition: floor
--- NOTE | 2018-10-21 15:52 | Operative Report ---
Operative Report Operative Report: EXAM: 1. Ultrasound-guided puncture of the right internal jugular vein 2. Fluoroscopic-guided removal of the right internal jugular tunneled cuffed existing Hooper catheter 3. Fluoroscopic-guided placement of a right internal jugular tunneled cuffed 9.6 [place] single lumen Hooper catheter, de mechelle placement. DATE: 10/24/18 INDICATION: Patient with malfunctioning Hooper catheter secondary to short gut syndrome with chronic TPN requirements. Existing Hooper catheter has a hole in it and will be removed and a new catheter will be placed. MEDICATIONS: Please see nursing report for full details. DEVICES: 9.6 [place] single lumen tunneled cuffed Hooper catheter. ALGEBRA TUTOR: TACO LAWRENCE MD CONTRAST: None PROCEDURE: The risks, benefits, and alternatives were discussed and informed consent was obtained. The patient was transported to the angiography suite in satisfactory/stable condition and was transported onto the angiography table. The patient's right internal jugular vein was assessed with ultrasound and determined to be patent prior to procedure. The patient was prepped and draped in a sterile fashion. The puncture site was anesthetized. Under sonographic guidance, the right internal jugular vein was punctured with a 21-gauge micropuncture needle and a 0.018 inch wire was advanced into the inferior vena cava. 5 [place] transitional dilator was exchanged with the needle. After this was performed, the existing Hooper catheter was removed. Site was infiltrated with lidocaine. Hemostat was used to retract the cuff and subsequently the catheter and cuff were removed intact. This was done under fluoroscopic guidance. The 0.018 inch wire of the original needle puncture was then used to [place] the catheter intravascular distance to the right atrium. Wire and inner dilator were removed. 0.035 inch wire was advanced into the inferior vena cava. A suitable exit site was identified on the patient's chest inferior and lateral to the venotomy. The site was anesthetized with local anesthetic and the track was anesthetized. Dermatotomy was made. The 9.6 [place] single lumen Hooper catheter was tunneled between the dermatotomy to the venotomy with the assistance of the tunneler. Over 0.035 inch wire, the transitional dilator was exchanged for a 10 [place] peel-away sheath. The catheter was cut to appropriate size. Wire and introducer were removed. The catheter was advanced through the peel-away sheath under suspended respirations and positioned centrally under fluoroscopic guidance. The peel-away sheath was removed. 4-0 Vicryl suture was used to close the venotomy and Dermabond was then applied. 3-0 Ethilon suture was used to secure the catheter at the dermatotomy. The catheter was charged with heparin 200 units/mL space. Sterile dressing and biopatch applied. The patient was transferred from the angiography suite back to the floor in stable condition. FINDINGS: 1. Excellent flow was obtained through the single lumen tunneled catheter. 2. The catheter tip is in the right atrium. IMPRESSION: 1. Successful ultrasound and fluoroscopically guided placement of a right internal jugular tunneled cuffed single-lumen Hooper catheter, de mechelle placement. 2. Successful fluoroscopically guided removal of a right internal jugular tunneled cuffed Hooper catheter.
[2018-10-21 17:25] VITALS: BP 186/100
[2018-10-21] MEDS ORDERED: INTRALIPID 20% 250 ML IV SCH (20:00)
[2018-10-21] MEDS ORDERED: TPN ADULT 2,016 ML IV SCH (20:00)
[2018-10-21] MEDS ORDERED: ELAVIL PO SCH (22:00)
== END 2018-10-21 18:33 | disposition home or self-care (01) ==
LOC: ED 05:23 → 3A 07:49
PROVIDERS: ADMIT Internal Medicine; ATTEND Internal Medicine
DX: T82.598A Other mechanical complication of other cardiac and vascular devices and implants, initial encounter (principal); E87.6 Hypokalemia; E83.42 Hypomagnesemia; D64.9 Anemia, unspecified
CPT/HCPCS: 36415; 36558; 36589; 71045; 76937; 77001; 80048; 80076; 83735; 84100; 84478; 85025; 85610; 85730; 96365; 96366; 96367; 96368; 96375; 96376; 99284; C1752; G0378; J0696; J1644; J2250; J2270; J3010; J3475; J3480; J7030; J7050

== ENCOUNTER 2019-03-26 05:43 | Observation (INO) | payer MEDICAID ==
--- NOTE | 2019-03-26 09:49 | Emergency Department Report ---
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 Patient states abdominal pain has been ongoing 2 weeks. She reports last menstrual period was 3 months ago. States she has taken multiple tests have been negative. Patient reports associated urinary frequency. Denies fever, nausea and vomiting. Patient currently has a Hooper catheter in the right anterior chest wall or TPN administration. Patient states it has been clogged for the last 2 days, unable to administer TPN at home. She also reports pain around the port site. Patient had catheter replaced in October of last year by Dr Bauman. -: days(s) (2), week(s) (2) Location: chest, abdomen Quality: aching Consistency: intermittent Associated Symptoms: denies: fever/chills, nausea/vomiting - Related Data Home Medications Medication Instructions Recorded Confirmed Last Taken Amitriptyline [Elavil] 25 mg PO QHS 10/21/18 10/21/18 Unknown Ibuprofen [Motrin 800 MG tab] 800 mg PO Q8HR PRN 10/21/18 10/21/18 Unknown Previous Rx's Medication Instructions Recorded Last Taken Type Albuterol Sulfate [Proventil Hfa] 6.7 gm IH Q4H PRN 30 Days 11/08/17 Unknown Rx hfa.aer.ad Allergies Allergy/AdvReac Type Severity Reaction Status Date / Time oxycodone [From Percocet] Allergy Rash Verified 10/10/17 14:32 ED Review of Systems ROS: Stated complaint: PAIN IN CHEST Other details as noted in HPI Comment: All other systems reviewed and negative Constitutional: denies: chills, fever Respiratory: denies: shortness of breath Gastrointestinal: abdominal pain. denies: nausea, vomiting Genitourinary: frequency. denies: dysuria ED Past Medical Hx - Past Medical History Hx Hypertension: Yes Hx Deep Vein Thrombosis: No Additional medical history: Bowel perforation due to ischemia. 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 - Surgical History Hx Pacemaker: No Hx Internal Defibrillator: No Additional Surgical History: Right upper arm PICC line placement. Bowel resection - Social History Smoking Status: Current Every Day Smoker Substance Use Type: Alcohol, Marijuana - Medications Home Medications: Home Medications Medication Instructions Recorded Confirmed Last Taken Type Albuterol Sulfate [Proventil Hfa] 6.7 gm IH Q4H PRN 30 Days 11/08/17 10/21/18 Unknown Rx hfa.aer.ad Amitriptyline [Elavil] 25 mg PO QHS 10/21/18 10/21/18 Unknown History Ibuprofen [Motrin 800 MG tab] 800 mg PO Q8HR PRN 10/21/18 10/21/18 Unknown History ED Physical Exam - General Limitations: No Limitations General appearance: alert, in no apparent distress - Head Head exam: Present: atraumatic, normocephalic - Eye Eye exam: Present: normal appearance - ENT ENT exam: Present: mucous membranes moist - Neck Neck exam: Present: normal inspection - Respiratory Respiratory exam: Present: normal lung sounds bilaterally, chest wall tenderness (Hooper catheter in right anterior chest wall w/ tenderness around insertion site, appears clean, no discharge or erythema present). Absent: respiratory distress - Cardiovascular Cardiovascular Exam: Present: regular rate, normal rhythm - GI/Abdominal GI/Abdominal exam: Present: soft, tenderness (moderate RLQ tenderness). Absent: distended - Extremities Exam Extremities exam: Present: normal inspection - Neurological Exam Neurological exam: Present: alert, oriented X3 - Psychiatric Psychiatric exam: Present: normal affect, normal mood - Skin Skin exam: Present: warm, dry, intact ED Course Vital Signs 03/26/19 03/26/19 03/26/19 05:47 05:52 11:03 Temperature 97.9 F 97.9 F Pulse Rate 65 65 56 L Respiratory 18 18 12 Rate Blood Pressure 191/102 191/102 Blood Pressure 178/89 [Left] O2 Sat by Pulse 100 100 100 Oximetry 03/26/19 12:25 Temperature Pulse Rate 57 L Respiratory 15 Rate Blood Pressure Blood Pressure 166/87 [Left] O2 Sat by Pulse 100 Oximetry - Reevaluation(s) Reevaluation #1: 03/26/19 11:00 RN attempted to flush catheter but is unable to. Will page vascular. - Consultations Consultation #1: 03/26/19 11: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 Spoke w/ him via OR nurse. States try to flush w/ tPA. 03/26/19 14:58 Received call back from Dr Bauman. Will admit so that catheter can be replaced. Consultation #2: 03/26/19 13:45 Spoke w/ Dr Pérez. Agrees CT does not show obstruction, and agrees w/ gastroenteritis. ED Medical Decision Making - Lab Data Result diagrams: 03/26/19 10:10 03/26/19 10:10 Critical care attestation.: If time is entered above; I have spent that time in minutes in the direct care of this critically ill patient, excluding procedure time. ED Disposition Clinical Impression: Hypokalemia, Mechanical complication of Hooper catheter, Gastroenteritis Disposition: 09 OP ADMIT IP TO THIS HOSP Is pt being admited?: Yes Condition: Stable Referrals: ALISON OLGUIN III, CORK MOLDER-BC [Primary Care Provider] - 3-5 Days Time of Disposition: 15:00
[2019-03-26 10:24] LABS: Hematocrit 34.1 % (30.3-42.9); Hemoglobin 10.5 gm/dl (10.1-14.3); Mean Corpuscular HGB Conc 31 % (30-34); Mean Corpuscular Volume 75 fl (79-97); Platelet Count 195 K/mm3 (140-440); Red Blood Count 4.53 M/mm3 (3.65-5.03)
[2019-03-26 10:35] LABS: Red Cell Distribution Width 25.5 % (13.2-15.2)
[2019-03-26 10:46] LABS: BUN/Creatinine Ratio 7; Blood Urea Nitrogen 4 mg/dL (7-17); Calcium 8.2 mg/dL (8.4-10.2); Hemolysis Index 5
[2019-03-26 10:48] LABS: Alanine Aminotransferase 54 units/L (7-56); Albumin 3.2 g/dL (3.9-5)
[2019-03-26 10:53] LABS: Bilirubin,Direct < 0.2 mg/dL (0-0.2)
[2019-03-26 10:53] LABS: Bilirubin,Urine NEG (Negative); Blood,Urine NEG (Negative); Color,Urine Yellow (Yellow); Mucus,Urine FEW /HPF; Protein,Urine <15 mg/dL mg/dL (Negative); Urobilinogen,Urine < 2.0 mg/dL (<2.0)
--- NOTE | 2019-03-26 11:25 | XRay Report ---
CHEST 1 VIEW INDICATION: right chest pain around port site. COMPARISON: 10/21/2018 FINDINGS: Support devices: Stable satisfactory device positioning. The right [id number] tip is in the distal SVC. Heart: Within normal limits. Pulmonary vasculature: Normal. Lungs/Pleura: The lungs are normally expanded and clear. No pleural effusion. No pneumothorax. Additional findings: None. IMPRESSION: 1. No acute findings. 2. Unremarkable right Oigdaz-s-Edef. Signer Name: Stan Anders MD Signed: 03/26/2019 11:21 AM Workstation Name: [id number]
[2019-03-26] MEDS ORDERED: ALTEPLASE 2 MG INJ IV ONE (11:33)
[2019-03-26] MEDS ORDERED: POTASSIUM CHLORIDE ER 20 MEQ TAB PO ONE (11:37)
[2019-03-26] MEDS ORDERED: ALTEPLASE 2 MG INJ ONE (11:43)
[2019-03-26 12:04] LABS: Basophils % (Manual) 0 % (0.0-1.8); Total Cells Counted 100
[2019-03-26 12:05] LABS: Anisocytosis 1+; Ovalocytes Few; Platelet Estimate Consistent w Auto; Poikilocytosis 1+; Target Cells Few
--- NOTE | 2019-03-26 13:22 | Cat Scan Report ---
CT abdomen pelvis w con INDICATION: RLQ pain. TECHNIQUE: All CT scans at this location are performed using the following dose modulation technique: Automated exposure control. CONTRAST: Omnipaque 300, 100 cc IV injection. COMPARISON: CT abdomen and pelvis 10/30/2017 CT abdomen: The parenchymal organs are unremarkable in appearance other than a hemangioma within the pacer segment of the right hepatic lobe measuring 2.6 cm. Negative for abdominal mass, fluid or adeno mary. The gallbladder is contracted. Changes of previous right hemicolectomy are again noted. This prominent distention of small bowel ext ending to the level of the anastomosis is similar to the previous exam. Fluid is also scattered throu ghout the colon diffusely. Negative for wall thickening. CT PELVIS: Fibroid uterus noted. Negative for pelvic mass or fluid. The rectosigmoid colon contains f luid, but demonstrates no wall thickening. IMPRESSION: 1. Distention of both large and small bowel which contain fluid. Gastroenteritis is favored over anas tomotic obstruction. 2. Hepatic hemangioma unchanged. 3. Contracted gallbladder. Signer Name: Neno Hamm MD Signed: 03/26/2019 1:18 PM Workstation Name: [id number]
--- NOTE | 2019-03-26 15:12 | History and Physical Report ---
History of Present Illness Chief complaint: My catheter is not working History of present illness: 44 YO Female with HTN, nicotine dependence, lupus, lupus anticoagulant syndrome uterine fibroids, ischemic bowel status post small bowel resection and right hemicolectomy currently on TPN, presents to ED with complaint malfunctioning port and pain in her right lower abdomen. Patient states that she has experienced pain in her her abdomen over the past 2 weeks. Patient states that pain is intermittent, 34/10, nonradiating, without exacerbating or alleviating factors. Patient transported to [facility] via private vehicle for further care. Patient seen and evaluated in the ED. Lab and imaging studies reviewed. Elsa ent found to have malfunctioning Hooper catheter. Interventional radiology's team consulted in ED. Patient placed in observation status and admitted to surgical floor. Patient pending catheter placement. Patient denies fever, chills, chest pain, palpitations, NVD, productive cough, skin rash, or recent ill contacts. Prior admission on 10/21/2018 reviewed. All listed medication reconciled at time of admission. Past History Past Medical History: hypertension, other (See HPI) Past Surgical History: bowel surgery Social history: single, smoking. denies: alcohol abuse, prescription drug abuse Family history: hypertension Medications and Allergies Allergies Allergy/AdvReac Type Severity Reaction Status Date / Time oxycodone [From Percocet] Allergy Rash Verified 10/10/17 14:32 Home Medications Medication Instructions Recorded Confirmed Last Taken Type Albuterol Sulfate [Proventil Hfa] 6.7 gm IH Q4H PRN 30 Days 11/08/17 03/26/19 03/25/19 Rx hfa.aer.ad Amitriptyline [Elavil] 25 mg PO QHS 10/21/18 03/26/19 03/25/19 History Ibuprofen [Motrin 800 MG tab] 800 mg PO Q8HR PRN 10/21/18 03/26/19 03/25/19 History Methocarbamol [Robaxin] 500 mg PO QDAY 03/26/19 03/26/19 03/25/19 History amLODIPine [Norvasc] 10 mg PO DAILY 03/26/19 03/26/19 03/25/19 History carvediloL [Coreg] 12.5 mg PO BID 03/26/19 03/26/19 03/25/19 History Review of Systems Constitutional: no weight loss, no weight gain, no fever, no chills Ears, nose, mouth and throat: no ear pain, no ear discharge, no tinnitis, no decreased hearing, no nose pain Breasts: no change in shape, no swelling, no mass Cardiovascular: no chest pain, no orthopnea, no palpitations, no rapid/irregular heart beat Respiratory: no cough, no cough with sputum, no hemoptysis, no shortness of breath Gastrointestinal: abdominal pain, no nausea, no vomiting, no diarrhea Genitourinary Female: no pelvic pain, no flank pain, no menorrhagia, no dysuria Rectal: no pain, no incontinence, no bleeding Musculoskeletal: no neck stiffness, no neck pain, no shooting arm pain, no arm numbness/tingling, no low back pain, no shooting leg pain Integumentary: no rash, no pruritis, no redness, no sores, no wounds Neurological: no head injury, no transient paralysis, no paralysis, no weakness, no parathesias, no numbness, no tingling Psychiatric: no anxiety, no memory loss, no change in sleep habits, no sleep disturbances, no insomnia, no hypersomnia, no change in appetite, no change in libido Endocrine: no cold intolerance, no heat intolerance, no polyphagia, no excessive thirst, no polyuria, no nocturia Hematologic/Lymphatic: no easy bruising, no easy bleeding, no lymphadenopathy, no lymphedema Allergic/Immunologic: no urticaria, no allergic rhinitis Exam - Constitutional Vitals: Temp Pulse Resp BP Pulse Ox 97.9 F 57 L 15 166/87 100 03/26/19 05:52 03/26/19 12:25 03/26/19 12:25 03/26/19 12:25 03/26/19 12:25 General appearance: Present: no acute distress, well-nourished - EENT Eyes: Present: PERRL ENT: hearing intact, clear oral mucosa - Neck Neck: Present: supple, normal ROM - Respiratory Respiratory effort: normal Respiratory: bilateral: CTA - Cardiovascular Heart Sounds: Present: S1 & S2. Absent: rub, click - Extremities Extremities: pulses symmetrical, No edema Peripheral Pulses: within normal limits - Abdominal General gastrointestinal: Present: soft, non-tender, non-distended, normal bowel sounds Female genitourinary: Present: normal - Integumentary Integumentary: Present: clear, warm, dry - Musculoskeletal Musculoskeletal: gait normal, strength equal bilaterally - Psychiatric Psychiatric: appropriate mood/affect, intact judgment & insight - Neurologic Neurologic: CNII-XII intact, moves all extremities Results - Labs CBC & Chem 7: 03/26/19 10:10 03/26/19 10:10 Labs: Abnormal lab results 03/26/19 03/26/19 03/26/19 Range/Units 10:10 10:10 10:10 MCV 75 L (79-97) fl MCH 23 L (28-32) pg RDW 25.5 H (13.2-15.2) % Lymphocytes % (Manual) 37.0 H (13.4-35.0) % Potassium 3.0 L (3.6-5.0) mmol/L Chloride 111.9 H (98-107) mmol/L Carbon Dioxide 19 L (22-30) mmol/L BUN 4 L (7-17) mg/dL Creatinine 0.6 L (0.7-1.2) mg/dL Calcium 8.2 L (8.4-10.2) mg/dL Total Protein 6.1 L (6.3-8.2) g/dL Albumin 3.2 L (3.9-5) g/dL Urine WBC (Auto) (0.0-6.0) /HPF 03/26/19 Range/Units 10:25 MCV (79-97) fl MCH (28-32) pg RDW (13.2-15.2) % Lymphocytes % (Manual) (13.4-35.0) % Potassium (3.6-5.0) mmol/L Chloride (98-107) mmol/L Carbon Dioxide (22-30) mmol/L BUN (7-17) mg/dL Creatinine (0.7-1.2) mg/dL Calcium (8.4-10.2) mg/dL Total Protein (6.3-8.2) g/dL Albumin (3.9-5) g/dL Urine WBC (Auto) 7.0 H (0.0-6.0) /HPF Assessment and Plan - Patient Problems (1) Mechanical complication of Hooper catheter Current Visit: Yes Status: Acute Plan to address problem: Interventional radiology consulted. Patient n.p.o. at midnight. Pending catheter placement as per interventional radiology service. (2) HTN (hypertension) Current Visit: Yes Status: Acute Qualifiers: Hypertension type: essential hypertension Qualified Code(s): I10 - Essential (primary) hypertension Plan to address problem: Monitor blood pressure every shift, continue medical management. (3) Lupus anticoagulant disorder Current Visit: Yes Status: Acute Plan to address problem: Supportive care, continue medical management. Outpatient rheumatology follow- up. (4) DVT prophylaxis Current Visit: Yes Status: Acute Plan to address problem: SCD to bilateral lower extremities while in bed, patient ambulatory.
[2019-03-26] MEDS ORDERED: ONDANSETRON 4 MG/2 ML INJ IV PRN (15:14)
[2019-03-26] MEDS ORDERED: ALBUTEROL 2.5 MG/3 ML NEBU IH PRN (15:14)
[2019-03-26] MEDS ORDERED: ACETAMINOPHEN 325 MG TAB PO PRN (15:14)
[2019-03-26] MEDS ORDERED: HYDROcodone/ACETAMINOPHEN 5-325 MG TAB PO ONE (18:29)
[2019-03-26] MEDS ORDERED: HYDROcodone/ACETAMINOPHEN 5-325 MG TAB ONE (18:32)
--- NOTE | 2019-03-26 22:29 | Event Note ---
Date: 03/26/19 TPN line malfunction refractory to tPA. NPO after MN. Plan for reardon removal and new reardon placement.
[2019-03-27] MEDS: HYDROcodone/ACETAMINOPHEN 5-325 MG TAB PO PRN ×4 (00:24→16:41)
[2019-03-27] MEDS ORDERED: HEPARIN/NS 5000 UNIT/500ML 500 ML IR ONE (08:12)
[2019-03-27] MEDS ORDERED: DEXTROSE 50% IN WATER (25GM) 50 ML SYRINGE IV ONE (08:13)
[2019-03-27] MEDS ORDERED: SODIUM CHLORIDE 0.9% 250ML 250 ML ONE (08:13)
[2019-03-27] MEDS ORDERED: DEXTROSE 50% IN WATER (25GM) 50 ML SYRINGE IV NR (08:15)
[2019-03-27] MEDS: fentaNYL 100 MCG/2 ML INJ ONE ×2 (08:41→08:46)
[2019-03-27] MEDS: MIDAZOLAM 2 MG/2 ML INJ ONE ×2 (08:43→08:46)
[2019-03-27] MEDS: LIDOCAINE 1%/EPINEPHRINE 1:100,000 VIAL (20 ML) INFILTRATI ONE ×2 (08:43→08:52)
[2019-03-27] MEDS: HEPARIN 10,000 UNITS/10 ML VIAL ONE ×2 (08:55→09:04)
[2019-03-27 08:59] LABS: BUN/Creatinine Ratio 6; Blood Urea Nitrogen 3 mg/dL (7-17); Calcium 7.9 mg/dL (8.4-10.2); Hemolysis Index 2
--- NOTE | 2019-03-27 09:17 | Operative Report ---
Operative Report Operative Report: Exam: Fluoroscopic guided exchange of Hooper catheter Clinical indication: Patient with nonfunctioning Hooper catheter secondary to attempts to put high glucose syrup through catheter which then became clogged Date: 03/27/2019 Procedure: Following an explanation of the risks, benefits and alternatives; dionicio levine informed consent was obtained. Suite and placed in supine position on the examination table. Initial fluoroscopic images demonstrated the catheter tip was within the cavoatrial junction. The patient's right shoulder and indwelling catheter were prepped and draped in the usual sterile fashion. 1% lidocaine was used for anesthesia. The catheter cuff was dissected free and the catheter withdrawn proximally. A 0.035 guidewire was then advanced centrally under fluoroscopy into the IVC for anchoring. The indwelling catheter was removed intact. A new Hooper catheter was cut to length and inserted over the guidewire into the proximal right atrium. The catheter flushed and aspirated easily and was then locked with appropriate volumes of heparin. The catheter was securely fastened at the skin surface using 2-0 Ethilon suture and a sterile dressing applied. The patient tolerated the procedure well. There were no immediate post procedure complications. Conscious sedation was performed under the guidance of radiologic nursing. Continuous cardiopulmonary monitoring was utilized. Impression: Fluoroscopic guided exchange of Hooper catheter.
[2019-03-27] MEDS ORDERED: POTASSIUM CHLORIDE ER 20 MEQ TAB PO NR (09:32)
[2019-03-27] MEDS ORDERED: MAGNESIUM SULFATE 2 GM/50 ML BAG IV ONE (10:00)
--- NOTE | 2019-03-27 13:38 | Discharge Summary ---
Providers - Providers Date of Admission: 03/26/19 15:15 Date of discharge: 03/27/19 Attending physician: MAGAN LAYNE 03/27/19 09:00 Consult to Dietitian/Nutrition [CONS] Routine Physician Instructions: Reason For Exam: TPN Reason for Consult: Write/Manage TPN/PPN Primary care physician: ALISON OLGUIN Hospitalization Condition: Stable Hospital course: Discharge diagnosis: /Mechanical complication of Hooper catheter - s/p new catheter placement /HTN (hypertension), cont home meds, stable /Lupus anticoagulant disorder, outpt f/u /Hypomagnesemia, repleted Disposition: [id number]/TX-06 HOME [facility] Time spent for discharge: 34 minutes Core Measure Documentation - Palliative Care Palliative Care/ Comfort Measures: Not Applicable - Core Measures Any of the following diagnoses?: none Exam - Constitutional Vitals: Temp Pulse Resp BP Pulse Ox 97.7 F 46 L 18 186/83 100 03/27/19 11:42 03/27/19 11:42 03/27/19 11:42 03/27/19 11:42 03/27/19 11:42 General appearance: Present: no acute distress, well-nourished - EENT Eyes: Present: PERRL ENT: hearing intact, clear oral mucosa - Neck Neck: Present: supple, normal ROM - Respiratory Respiratory effort: normal Respiratory: bilateral: CTA - Cardiovascular Heart Sounds: Present: S1 & S2. Absent: rub, click - Extremities Extremities: pulses symmetrical, No edema Peripheral Pulses: within normal limits - Abdominal General gastrointestinal: Present: soft, non-tender, non-distended, normal bowel sounds - Integumentary Integumentary: Present: clear, warm, dry - Musculoskeletal Musculoskeletal: gait normal, strength equal bilaterally - Psychiatric Psychiatric: appropriate mood/affect, intact judgment & insight - Neurologic Neurologic: CNII-XII intact, moves all extremities Plan Activity: advance as tolerated Weight Bearing Status: Weight Bear as Tolerated Diet: other (TPN) Wound: keep clean and dry Follow up with: ALISON OLGUIN III, SWATHI-BC [Primary Care Provider] - 3-5 Days
[2019-03-27] MEDS ORDERED: D5W/0.9% NACL 1,000 ML IV SCH (14:00)
[2019-03-27] MEDS ORDERED: carvediloL 12.5 MG TAB PO SCH (16:47)
[2019-03-27] MEDS ORDERED: IBUPROFEN 800 MG TAB PO PRN (16:47)
[2019-03-27] MEDS ORDERED: ALBUTEROL 8.5 GM INHALATION IH PRN (16:47)
[2019-03-27] MEDS ORDERED: MORPHINE 2 MG/1 ML INJ IV ONE (16:48)
[2019-03-27] MEDS ORDERED: hydrALAZINE 20 MG/1 ML INJ IV PRN (16:49)
[2019-03-27] MEDS ORDERED: amLODIPine 10 MG TAB PO SCH (17:00)
[2019-03-27 17:29] VITALS: BP 219/104
[2019-03-27] MEDS ORDERED: TOTAL PARENTERAL NUTRITION 1,560 ML IV SCH (20:00)
[2019-03-27] MEDS ORDERED: AMITRIPTYLINE 25 MG TAB PO SCH (22:00)
== END 2019-03-27 18:51 | disposition home health service (06) ==
LOC: ED 05:43 → 3B-SURG 15:15 → 3A 16:20 → 3B-SURG 20:00
PROVIDERS: ADMIT Internal Medicine; ATTEND Internal Medicine
DX: T82.598A Other mechanical complication of other cardiac and vascular devices and implants, initial encounter (principal); I10 Essential (primary) hypertension; D68.62 Lupus anticoagulant syndrome; F17.200 Nicotine dependence, unspecified, uncomplicated; E87.6 Hypokalemia; K52.9 Noninfective gastroenteritis and colitis, unspecified; E83.42 Hypomagnesemia; Z79.899 Other long term (current) drug therapy
CPT/HCPCS: 36415; 36580; 71045; 74177; 77001; 80048; 80076; 81001; 82962; 83735; 84100; 84703; 85007; 85025; 96365; 96366; 96375; 99284; C1752; C1769; G0378; J1644; J2250; J2270; J2997; J3010; J3475; J7042; J7050; Q9967; 36581; 96374

== ENCOUNTER 2020-02-20 14:00 | Outpatient (CLI) | payer MEDICARE ==
--- NOTE | 2020-02-20 16:31 | Ultrasound Report ---
ULTRASOUND THYROID INDICATION / CLINICAL INFORMATION: HYPOTHYROIDISM,UNSPECIFIED. COMPARISON: None available. FINDINGS: RIGHT LOBE: Size = 6.0 x 1.4 x 2.2 cm. - Echogenicity: Normal. - Vascularity: Normal. - Nodules < 1 cm: None. - Nodules >= 1 cm or Suspicious Nodules: None. LEFT LOBE: Size = 5.4 x 1.3 x 1.8 cm. - Echogenicity: Normal. - Vascularity: Normal. - Nodules < 1 cm: None. - Nodules >= 1 cm or Suspicious Nodules: None. ISTHMUS: No significant abnormality. Thickness = 0.3 cm. - Nodules < 1 cm: None. - Nodules >= 1 cm or Suspicious Nodules: None. LYMPH NODES: No abnormal lymph nodes. PARATHYROID GLANDS: No abnormal parathyroid gland. ADDITIONAL FINDINGS: None. IMPRESSION: The thyroid gland is mildly enlarged but no evidence for parenchymal disease, nodule or cyst. Note: Nodule size based on mean (average) size of 3 dimensions. Note: Nodules < 1 cm do not typically require follow-up or FNA unless there are suspicious features ( SANDRA, 2015) ACR TI-RADS Thyroid Nodule Recommendations TI-RADS 1 (0 points) -- Benign. No FNA or follow-up. TI-RADS 2 (1-2 points) -- Not suspicious. No FNA or follow-up. TI-RADS 3 (3 points) -- Mildly suspicious. Follow up in 1 year if 1.5 cm. FNA if 2.5 cm. TI-RADS 4 (4-6 points) -- Moderately suspicious. Follow up in 1 year if 1.0 cm. FNA if 1.5 cm. TI-RADS 5 (7+ points) -- Highly suspicious. Follow up in 1 year if 0.5 cm. FNA if 1.0 cm. Signer Name: Saravanan Ag Jr, MD Signed: 02/20/2020 4:26 PM Workstation Name: [id number]
== END 2020-02-20 14:01 | disposition home or self-care (01) ==
LOC: US 14:00
PROVIDERS: ATTEND Nurse Practitioner Family
DX: E03.9 Hypothyroidism, unspecified (principal); E04.9 Nontoxic goiter, unspecified
CPT/HCPCS: 76536

== ENCOUNTER 2020-02-23 07:13 | Outpatient (CLI) | payer MEDICARE ==
--- NOTE | 2020-02-24 08:32 | Nuclear Medicine Report ---
RADIOACTIVE IODINE UPTAKE AND THYROID SCINTIGRAPHY INDICATION: Hypothyroidism COMPARISON: Thyroid ultrasound 02/20/2020 RADIOPHARMACEUTICAL: 293 uCi I-123 orally FINDINGS: The 6 hour uptake was calculated at 4.6% which is within the normal range for this institut ion for a 5 hour uptake. 24-hour uptake was calculated at 14.8% which is below the lower limits of no rmal at this institution of 18%. Images obtained showed diffuse distribution of activity without focal abnormality. IMPRESSION: Mild decrease of radioactive iodine uptake without focal abnormality seen Signer Name: Fish Radford MD Signed: 02/24/2020 8:27 AM Workstation Name: [id number]
== END 2020-02-23 07:14 | disposition home or self-care (01) ==
LOC: NM 07:13
PROVIDERS: ATTEND Nurse Practitioner Family
DX: E03.9 Hypothyroidism, unspecified (principal)
CPT/HCPCS: 78012; A9516

== ENCOUNTER 2020-07-28 10:59 | Inpatient (IN) | payer MEDICARE ==
--- NOTE | 2020-07-28 11:22 | Event Note ---
ED Screening Note Date of service: 07/28/20 Time: 11:19 ED Screening Note: Patient complains of fatigue, vomiting, lower abdominal pain, and heavy vaginal bleeding for the past 2 days Patient has a feeding tube in place due to a bowel obstruction a year and a half ago Patient sister is historian Blood pressure noted to be 88/56 Patient also has history of blood transfusions Patient also is complaining of shortness of breath This initial assessment/diagnostic orders/clinical plan/treatment(s) is/are subject to change based on patients health status, clinical progression and re- assessment by fellow clinical providers in the ED. Further treatment and workup at subsequent clinical providers discretion. Patient/guardian urged not to elope from the ED as their condition may be serious if not clinically assessed and managed. Initial orders include: Labs Chest x-ray EKG
[2020-07-28 12:12] LABS: Basophils # (Auto) 0.1 K/mm3 (0.0-0.1); Basophils % (Auto) 0.7 % (0.0-1.8); Eosinophils # (Auto) 0.1 K/mm3 (0.0-0.4); Eosinophils % (Auto) 0.7 % (0.0-4.3); Hematocrit 23.4 % (30.3-42.9); Hemoglobin 7.7 gm/dl (10.1-14.3); Lymphocytes # (Auto) 2.3 K/mm3 (1.2-5.4); Lymphocytes % (Auto) 24.1 % (13.4-35.0); Mean Corpuscular HGB Conc 33 % (30-34); Mean Corpuscular Volume 91 fl (79-97); Monocytes # (Auto) 0.3 K/mm3 (0.0-0.8); Monocytes % (Auto) 3.4 % (0.0-7.3); Platelet Count 254 K/mm3 (140-440); Red Blood Count 2.58 M/mm3 (3.65-5.03); Red Cell Distribution Width 19.2 % (13.2-15.2)
[2020-07-28 12:35] LABS: Alanine Aminotransferase 86 units/L (7-56); Albumin 3.1 g/dL (3.9-5); BUN/Creatinine Ratio 20; Blood Urea Nitrogen 18 mg/dL (7-17); Hemolysis Index 251
[2020-07-28] MEDS ORDERED: SODIUM CHLORIDE 0.9% 500 ML 500 ML IV ONE ×3 (12:54→16:26)
--- NOTE | 2020-07-28 13:04 | Emergency Department Report ---
HPI - General Chief Complaint: Vaginal Bleeding Time Seen by Provider: 07/28/20 11:19 - HPI HPI: This is a 45-year-old -[place] female who presents to the emergency department from home with a complaint of a 3-day history of heavy vaginal bleeding, lower abdominal pain, numbness and tingling in the fingers and toes, generalized weakness and some shortness of breath. 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 She has a line in the chest wall for TPN. The patient also has a history of lupus and hypertension. The patient does not have a normal menstrual cycle and last had her menstrual cycle in February of last year. She has been having nausea and vomiting over these past 3 days as well. The patient does answer questions but is a poor historian. Her sister/supervisor vendor quality is currently at bedside helping to provide information. No recent travel or sick contacts at home. Her primary care physician is a Dr. Crawford but they have not been able to see them regarding her symptoms. ED Past Medical Hx - Past Medical History Hx Hypertension: Yes Hx Deep Vein Thrombosis: No Additional medical history: Bowel perforation due to ischemia. 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 - Surgical History Hx Pacemaker: No Hx Internal Defibrillator: No Additional Surgical History: Right upper arm PICC line placement. Bowel resection - Social History Smoking Status: Current Every Day Smoker - Medications Home Medications: Home Medications Medication Instructions Recorded Confirmed Last Taken Type Albuterol Sulfate [Proventil Hfa] 6.7 gm IH Q4H PRN 30 Days 11/08/17 07/29/20 03/25/19 Rx hfa.[email or web address].ad Amitriptyline [Elavil] 25 mg PO QHS 10/21/18 07/29/20 06/28/20 09:00 History Ibuprofen [Motrin 800 MG tab] 800 mg PO Q8HR PRN 10/21/18 07/29/20 03/25/19 H istory Methocarbamol [Robaxin] 500 mg PO QDAY 03/26/19 07/29/20 06/28/20 09:00 History amLODIPine [Norvasc] 10 mg PO DAILY 03/26/19 07/29/20 06/28/20 09:00 History carvediloL [Coreg] 12.5 mg PO BID 03/26/19 07/29/20 06/28/20 09:00 History ED Review of Systems ROS: Stated complaint: VAGINAL BLEEDING, PAIN Other details as noted in HPI Comment: All other systems reviewed and negative Constitutional: weakness. denies: fever Eyes: denies: eye pain, vision change ENT: denies: ear pain, throat pain Respiratory: shortness of breath. denies: cough Cardiovascular: denies: chest pain, palpitations Gastrointestinal: abdominal pain, nausea, vomiting Genitourinary: abnormal menses. denies: dysuria, discharge Musculoskeletal: myalgia. denies: joint swelling Skin: denies: rash, lesions Neurological: paresthesias. denies: headache Physical Exam - Physical Exam Vital Signs: Vital Signs 07/28/20 11:16 Temperature 97.5 F L Pulse Rate 104 H Respiratory 20 Rate Blood Pressure 88/54 O2 Sat by Pulse 100 Oximetry Physical Exam: GENERAL: The patient is frail and ill-appearing. HENT: Normocephalic. Atraumatic. Patient has moist mucous membranes. EYES: Extraocular motions are intact. Pale conjunctiva. Pupils equal reactive to light bilaterally. NECK: Supple. Trachea is midline. CHEST/LUNGS: Clear to auscultation. There is no respiratory distress noted. HEART/CARDIOVASCULAR: Regular. There is no tachycardia. There is no murmur. ABDOMEN: Abdomen is soft, nontender. Patient has normal bowel sounds. SKIN: Skin is warm and dry. NEURO: Patient is sleepy but is easily arousable. Once awake she is able to follow all commands and appears alert and cooperative. Cranial nerves II through XII grossly intact. MUSCULOSKELETAL: There is no tenderness or deformity. PELVIC: There is a moderate to large amount of blood seen in the vagina. ED Course Vital Signs 07/28/20 11:16 Temperature 97.5 F L Pulse Rate 104 H Respiratory 20 Rate Blood Pressure 88/54 O2 Sat by Pulse 100 Oximetry - Consultations Consultation #1: 07/28/20 15:43 I spoke with Bethany at [employer]. She says that they will consult on the patient and the consult will be under Dr. Zendejas. ED Medical Decision Making - Lab Data Result diagrams: 07/29/20 05:24 07/29/20 08:10 Lab Results 0507/28/20 07/28/20 Range/Units 11:24 11:24 11:24 WBC 9.8 (4.5-11.0) K/mm3 RBC 2.58 L (3.65-5.03) M/mm3 Hgb 7.7 L (10.1-14.3) gm/dl Hct 23.4 L (30.3-42.9) % MCV 91 (79-97) fl MCH 30 (28-32) pg MCHC 33 (30-34) % RDW 19.2 H (13.2-15.2) % Plt Count 254 (140-440) K/mm3 Lymph % (Auto) 24.1 (13.4-35.0) % [place] % (Auto) 3.4 (0.0-7.3) % Eos % (Auto) 0.7 (0.0-4.3) % Baso % (Auto) 0.7 (0.0-1.8) % Lymph # (Auto) 2.3 (1.2-5.4) K/mm3 [place] # (Auto) 0.3 (0.0-0.8) K/mm3 Eos # (Auto) 0.1 (0.0-0.4) K/mm3 Baso # (Auto) 0.1 (0.0-0.1) K/mm3 Seg Neutrophils % 71.1 H (40.0-70.0) % Seg Neutrophils # 6.9 (1.8-7.7) K/mm3 Sodium 137 (137-145) mmol/L Potassium 5.1 H (3.6-5.0) mmol/L Chloride 109.9 H (98-107) mmol/L Carbon Dioxide 12 L (22-30) mmol/L Anion Gap 20 mmol/L BUN 18 H (7-17) mg/dL Creatinine 0.9 (0.6-1.2) mg/dL Estimated GFR > 60 ml/min BUN/Creatinine Ratio 20 % Glucose 103 H (65-100) mg/dL Calcium 7.0 L (8.4-10.2) mg/dL Total Bilirubin 0.50 (0.1-1.2) mg/dL AST 60 H (5-40) units/L ALT 86 H (7-56) units/L Alkaline Phosphatase 69 (35-129) units/L Total Protein 5.7 L (6.3-8.2) g/dL Albumin 3.1 L (3.9-5) g/dL Albumin/Globulin Ratio 1.2 % Lipase 20 (13-60) units/L HCG, Qual Negative (Negative) Blood Type Antibody Screen Crossmatch 07/28/20 07/28/20 07/28/20 Range/Units 13:32 14:39 14:39 WBC (4.5-11.0) K/mm3 RBC (3.65-5.03) M/mm3 Hgb 5.8 L* (10.1-14.3) gm/dl Hct 19.0 L* (30.3-42.9) % MCV (79-97) fl MCH (28-32) pg MCHC (30-34) % RDW (13.2-15.2) % Plt Count (140-440) K/mm3 Lymph % (Auto) (13.4-35.0) % [place] % (Auto) (0.0-7.3) % Eos % (Auto) (0.0-4.3) % Baso % (Auto) (0.0-1.8) % Lymph # (Auto) (1.2-5.4) K/mm3 [place] # (Auto) (0.0-0.8) K/mm3 Eos # (Auto) (0.0-0.4) K/mm3 Baso # (Auto) (0.0-0.1) K/mm3 Seg Neutrophils % (40.0-70.0) % Seg Neutrophils # (1.8-7.7) K/mm3 Sodium 137 (137-145) mmol/L Potassium 3.5 L D (3.6-5.0) mmol/L Chloride 109.4 H (98-107) mmol/L Carbon Dioxide 12 L (22-30) mmol/L Anion Gap 19 mmol/L BUN 19 H (7-17) mg/dL Creatinine 0.9 (0.6-1.2) mg/dL Estimated GFR > 60 ml/min BUN/Creatinine Ratio 21 % Glucose 86 (65-100) mg/dL Calcium 6.6 L (8.4-10.2) mg/dL Total Bilirubin (0.1-1.2) mg/dL AST (5-40) units/L ALT (7-56) units/L Alkaline Phosphatase (35-129) units/L Total Protein (6.3-8.2) g/dL Albumin (3.9-5) g/dL Albumin/Globulin Ratio % Lipase (13-60) units/L HCG, Qual (Negative) Blood Type O POSITIVE Antibody Screen Negative Crossmatch See Detail - Radiology Data Radiology results: report reviewed, image reviewed interpreted by me: Chest x-ray does not show any acute process. There are no pleural effusions, obvious pneumonia and there is no pneumothorax. No significant cardiomegaly. Abdominal x-ray shows nonspecific nonobstructive bowel gas. No free air. CT abdomen pelvis w con INDICATION: MAIN. TECHNIQUE: All CT scans at this location are performed using CT dose reduction for ALARA by means of automated exposure control. COMPARISON: 03/26/2019 FINDINGS: Lung bases are clear. Mild hepatic steatosis, with a stable benign hemangioma in the right lobe and what is thought to be a small hemangioma in the medial segment of the left lobe. Gallbladder is moderately distended but contains no obvious stones. Spleen, pancreas, kidneys and adrenals are negative. Abdominal aorta is normal in size. No adenopathy. Pelvis Uterus is enlarged, with multiple fibroids. Bladder is compressed Post right hemicolectomy. There is diffuse abnormal wall thickening of both colon and small bowel, without evidence of obstruction. Minimal free fluid is demonstrated in the dependent pelvis. No acute skeletal lesions. IMPRESSION: 1. Previous right hemicolectomy, with what appears to be abnormal wall thickening of both colon and small bowel. This has been present on previous studies but appears even more prominent. No o bstruction. 2. Mild hepatic steatosis, with stable hemangiomas. - Medical Decision Making This patient came in with a complaint of some generalized fatigue and weakness, heavy vaginal bleeding, lower abdominal pain and some shortness of breath. The patient appears weak and frail and older than her stated age. Her initial hemoglobin was 7.7. The rest of the labs were mostly unremarkable except for a bicarb of 12. The patient also presented with borderline hypotension. She was given some IV fluid resuscitation with some improvement in her blood pressure. A repeat H&H was done about 2 hours later and the patient dropped almost 2 g. A pelvic examination was done with nurse Lozada at bedside to account director and assessed. There was a moderate to large amount of blood seen in the vagina. CT scan of the abdomen and pelvis shows uterine fibroid disease, and possibly some colitis. 2 units of packed red blood cells were ordered for transfusion. The [employer] on- call was contacted and consulted. Patient was accepted for admission by the hospitalist, Dr. Hdz. Critical Care Time: No Critical care attestation.: If time is entered above; I have spent that time in minutes in the direct care of this critically ill patient, excluding procedure time. ED Disposition Clinical Impression: Menorrhagia, Symptomatic anemia, Anemia requiring transfusions, Dysfunctional uterine bleeding Disposition: OP ADMIT IP TO THIS HOSP Is pt being admited?: Yes Condition: Serious
[2020-07-28] MEDS ORDERED: ONDANSETRON 4 MG/2 ML INJ IV ONE (13:05)
--- NOTE | 2020-07-28 13:09 | XRay Report ---
CHEST 2 VIEWS INDICATION / CLINICAL INFORMATION: shortness of breath. COMPARISON: One view of the chest from 03/26/2019. FINDINGS: SUPPORT DEVICES: Unchanged. HEART / MEDIASTINUM: No significant abnormality. LUNGS / PLEURA: Clear lungs. No significant pleural effusion. No pneumothorax. ADDITIONAL FINDINGS: No significant additional findings. IMPRESSION: 1. No acute abnormality of the chest. Signer Name: Jasmeet Ngo MD Signed: 07/28/2020 1:05 PM Workstation Name: [id number]
--- NOTE | 2020-07-28 13:11 | XRay Report ---
ABDOMEN 2 VIEWS INDICATION / CLINICAL INFORMATION: Vomiting, history of bowel obstruction. COMPARISON: CT abdomen and pelvis with contrast from 03/26/2019. FINDINGS: TUBES / LINES: None. BOWEL GAS PATTERN: No significant abnormality. FREE AIR / EXTRALUMINAL GAS: None seen. ADDITIONAL FINDINGS: Suture material is seen along the right lower quadrant. CHEST: Visualized chest shows no significant abnormality. IMPRESSION: No significant abnormality of the abdomen. Signer Name: Jasmeet Ngo MD Signed: 07/28/2020 1:06 PM Workstation Name: [id number]
--- NOTE | 2020-07-28 14:20 | Cat Scan Report ---
CT abdomen pelvis w con INDICATION: MAIN. TECHNIQUE: All CT scans at this location are performed using CT dose reduction for ALARA by means of automated e xposure control. COMPARISON: 03/26/2019 FINDINGS: Lung bases are clear. Mild hepatic steatosis, with a stable benign hemangioma in the right lobe and w hat is thought to be a small hemangioma in the medial segment of the left lobe. Gallbladder is modera tely distended but contains no obvious stones. Spleen, pancreas, kidneys and adrenals are negative. A bdominal aorta is normal in size. No adenopathy. Pelvis Uterus is enlarged, with multiple fibroids. Bladder is compressed Post right hemicolectomy. There is diffuse abnormal wall thickening of both colon and small bowel, wi thout evidence of obstruction. Minimal free fluid is demonstrated in the dependent pelvis. No acute skeletal lesions. IMPRESSION: 1. Previous right hemicolectomy, with what appears to be abnormal wall thickening of both colon and s mall bowel. This has been present on previous studies but appears even more prominent. No obstruction . 2. Mild hepatic steatosis, with stable hemangiomas. Signer Name: French Hector MD Signed: 07/28/2020 2:15 PM Workstation Name: [id number]
[2020-07-28] MEDS ORDERED: MORPHINE 2 MG/1 ML INJ IV ONE (14:32)
[2020-07-28] MEDS ORDERED: PIPERACIL/TAZOBACTA 4.5/NS 100 4.5 GM/100 ML VIAL IV ONE (14:32)
[2020-07-28 15:16] LABS: Hemoglobin 5.8 gm/dl (10.1-14.3)
[2020-07-28 15:28] LABS: BUN/Creatinine Ratio 21; Blood Urea Nitrogen 19 mg/dL (7-17); Calcium 6.6 mg/dL (8.4-10.2); Hemolysis Index 4
[2020-07-28] MEDS ORDERED: CALCIUM GLUCONATE 1,000 MG in SODIUM CHLORIDE 0.9% 100 ML IV ONE (15:31)
--- NOTE | 2020-07-28 15:50 | History and Physical Report ---
History of Present Illness Chief complaint: I just cannot stop bleeding History of present illness: 45 YO Female with HTN, Brachial Vein Thrombosis not prescribed therapeutic anticoagulation, SLE, Nicotine Dependence, Short Gut Syndrome presents to ED for evaluation. Patient reports "I cannot stop bleeding". Patient states that she has experienced constant vaginal bleeding over the past 3 days. Patient knowledges generalized weakness, abdominal cramping, a sensation of numbness and tingling in the fingers and toes, decreased exercise tolerance, shortness of breath. Patient reports dizziness with subsequent loss of consciousness today while sitting on the couch. After regaining consciousnesspatient notified her sister. Patient was subsequently transported to [facility] for further care and evaluation of the aforementioned symptoms. The patient was seen and evaluated in the emergency department. All lab and imaging studies reviewed. Patient was found to have a blood pressure of 88/54 upon arrival to the emergency department, symptomatic anemia secondary to blood loss anemia due to uterine fibroid, Metabolic acidosis, volume depletion, and severe malnutrition. Patient admitted to medical floor and treated with packed red blood cell transfusion, IV fluid resuscitation therapy and supportive care. Patient denies fever, chills, chest pain, palpitation, productive cough, skin rash, recent ill contacts, or known exposure to COVID-19. Prior admission on 03/26/2019 reviewed. All medication listed at time of admission has been reconciled. T Past History Past Medical History: hypertension, other (See HPI) Past Surgical History: bowel surgery, Other (PICC line placement) Social history: single, smoking Family history: hypertension Medications and Allergies Allergies Allergy/AdvReac Type Severity Reaction Status Date / Time oxycodone [From Percocet] Allergy Rash Verified 10/10/17 14:32 Home Medications Medication Instructions Recorded Confirmed Last Taken Type Albuterol Sulfate [Proventil Hfa] 6.7 gm IH Q4H PRN 30 Days 11/08/17 03/26/19 03/25/19 Rx hfa.aer.ad Amitriptyline [Elavil] 25 mg PO QHS 10/21/18 03/26/19 03/25/19 History Ibuprofen [Motrin 800 MG tab] 800 mg PO Q8HR PRN 10/21/18 03/26/19 03/25/19 History Methocarbamol [Robaxin] 500 mg PO QDAY 03/26/19 03/26/19 03/25/19 History amLODIPine [Norvasc] 10 mg PO DAILY 03/26/19 03/26/19 03/25/19 History carvediloL [Coreg] 12.5 mg PO BID 03/26/19 03/26/19 03/25/19 History Review of Systems Constitutional: weakness, no weight loss, no weight gain, no fever Ears, nose, mouth and throat: no deferred, no tinnitis, no decreased hearing, no nose pain, no nasal discharge Breasts: no change in shape, no mass Cardiovascular: syncope, no chest pain, no orthopnea, no palpitations, no rapid/irregular heart beat Respiratory: shortness of breath, no cough with sputum, no excessive sputum Gastrointestinal: nausea, vomiting, no diarrhea, no constipation, no change in bowel habits Genitourinary Female: menorrhagia, no pelvic pain, no flank pain, no dysuria, no urinary frequency, no urgency, no vaginal itching, no vaginal discharge, no vaginal odor Rectal: no pain, no incontinence, no bleeding Musculoskeletal: no neck stiffness, no neck pain, no arm numbness/tingling Integumentary: no rash, no pruritis, no redness, no sores, no jaundice Neurological: no head injury, no transient paralysis, no paralysis, no weakness, no parathesias, no numbness, no seizures, no tremors Psychiatric: no anxiety, no change in sleep habits, no sleep disturbances, no insomnia, no hypersomnia, no change in appetite, no change in libido, no suicidal ideation Endocrine: no cold intolerance, no heat intolerance, no polyuria, no excessive sweating, no weight change Hematologic/Lymphatic: no easy bruising Allergic/Immunologic: no urticaria, no allergic rhinitis, no wheezing Exam - Constitutional Vitals: Temp Pulse Resp BP Pulse Ox 97.5 F L 95 H 18 141/71 87 07/28/20 11:16 07/28/20 14:21 07/28/20 14:59 07/28/20 14:21 07/28/20 14:01 General appearance: Present: mild distress, cachectic - EENT Eyes: Present: PERRL (Conjunctival pallor) ENT: hearing intact, clear oral mucosa - Neck Neck: Present: supple, normal ROM - Respiratory Respiratory effort: normal Respiratory: bilateral: CTA - Cardiovascular Heart Sounds: Present: S1 & S2. Absent: rub, click - Extremities Extremities: pulses symmetrical, No edema Peripheral Pulses: within normal limits - Abdominal General gastrointestinal: Present: soft, non-tender, non-distended, normal bowel sounds Female genitourinary: Present: normal - Integumentary Integumentary: Present: clear, warm, dry - Musculoskeletal Musculoskeletal: gait normal, strength equal bilaterally - Psychiatric Psychiatric: appropriate mood/affect, intact judgment & insight - Neurologic Neurologic: CNII-XII intact, moves all extremities Results - Labs CBC & Chem 7: 07/28/20 14:39 07/28/20 14:39 Labs: Abnormal lab results 07/28/20 07/28/20 07/28/20 Range/Units 11:24 11:24 13:32 RBC 2.58 L (3.65-5.03) M/mm3 Hgb 7.7 L (10.1-14.3) gm/dl Hct 23.4 L (30.3-42.9) % RDW 19.2 H (13.2-15.2) % Seg Neutrophils % 71.1 H (40.0-70.0) % Potassium 5.1 H (3.6-5.0) mmol/L Chloride 109.9 H (98-107) mmol/L Carbon Dioxide 12 L (22-30) mmol/L BUN 18 H (7-17) mg/dL Glucose 103 H (65-100) mg/dL Calcium 7.0 L (8.4-10.2) mg/dL AST 60 H (5-40) units/L ALT 86 H (7-56) units/L Total Protein 5.7 L (6.3-8.2) g/dL Albumin 3.1 L (3.9-5) g/dL Crossmatch See Detail 07/28/20 07/28/20 Range/Units 14:39 14:39 RBC (3.65-5.03) M/mm3 Hgb 5.8 L* (10.1-14.3) gm/dl Hct 19.0 L* (30.3-42.9) % RDW (13.2-15.2) % Seg Neutrophils % (40.0-70.0) % Potassium 3.5 L D (3.6-5.0) mmol/L Chloride 109.4 H (98-107) mmol/L Carbon Dioxide 12 L (22-30) mmol/L BUN 19 H (7-17) mg/dL Glucose (65-100) mg/dL Calcium 6.6 L (8.4-10.2) mg/dL AST (5-40) units/L ALT (7-56) units/L Total Protein (6.3-8.2) g/dL Albumin (3.9-5) g/dL Crossmatch Assessment and Plan - Patient Problems (1) Symptomatic anemia Current Visit: Yes Status: Acute Plan to address problem: CBC, packed red blood cell transfusion, [employer] consult placed in the emergency department, repeat CBC in a.m. (2) Metabolic acidosis Current Visit: Yes Status: Acute Plan to address problem: IV fluid resuscitation therapy, supportive care, repeat BMP in a.m. (3) Volume depletion Current Visit: Yes Status: Acute Plan to address problem: IV fluid resuscitation therapy, supportive care, monitor urine output every shift. (4) Severe malnutrition Current Visit: Yes Status: Acute Plan to address problem: Protein supplementation, encourage increased oral intake, (5) DVT prophylaxis Current Visit: No Status: Acute Plan to address problem: SCD to bilateral lower extremities with in bed, hold anticoagulation due to active vaginal bleeding.
[2020-07-28 16:00] LABS: Bilirubin,Urine NEG (Negative); Blood,Urine LG (Negative); Color,Urine Red (Yellow); RBC,Urine > 182.0 /HPF (0.0-6.0); Urobilinogen,Urine < 2.0 mg/dL (<2.0)
[2020-07-28] MEDS ORDERED: ALBUTEROL 2.5 MG/3 ML NEBU IH PRN (16:00)
[2020-07-28] MEDS ORDERED: ONDANSETRON 4 MG/2 ML INJ IV PRN (16:00)
[2020-07-28] MEDS ORDERED: SODIUM CHLORIDE 0.9% 1000 ML 1,000 ML IV ONE ×2 (16:22)
[2020-07-28] MEDS ORDERED: ACETAMINOPHEN 325 MG TAB PO ONE (20:17)
--- NOTE | 2020-07-28 20:17 | Consultation ---
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 Patient is presently on TPN. Patient presented to the emergency room with complaints of heavy vaginal bleeding for 3 days patient with a history of fibroids. She is currently in the emergency room receiving blood transfusion due to hemoglobin of 5.8 and waiting to be admitted to the medical floor. Patient unsure exactly when she was diagnosed with fibroids she thinks approximately 2018. States her periods are very regular and can go as much as 6 months without periods. Past History Past Medical History: hypertension, other (See history and physical for more details) Past Surgical History: SIDE GUIDER/uterine surgery (Patient states that she has had a laparotomy with partial salpingectomy for ectopic and also a laparoscopy with she believes another salpingectomy on the contralateral side due to a second ectopic ), other (Bowel resection. See admission history and physical for further details) SIDE GUIDER History: fibroids Social history: lives with family, smoking - Obstetrical History : 6 Para: 2 Hx # Term Pregnancies: 2 Number of Pregnancies: 0 Spontaneous Abortions: 3 (2 ectopic pregnancies) Induced : 0 Number of Living Children: 2 Medications and Allergies Allergies Allergy/AdvReac Type Severity Reaction Status Date / Time oxycodone [From Percocet] Allergy Rash Verified 10/10/17 14:32 Home Medications Medication Instructions Recorded Confirmed Last Taken Type Albuterol Sulfate [Proventil Hfa] 6.7 gm IH Q4H PRN 30 Days 11/08/17 03/26/19 03/25/19 Rx hfa.[email or web address] Amitriptyline [Elavil] 25 mg PO QHS 10/21/18 03/26/19 03/25/19 History Ibuprofen [Motrin 800 MG tab] 800 mg PO Q8HR PRN 10/21/18 03/26/19 03/25/19 History Methocarbamol [Robaxin] 500 mg PO QDAY 03/26/19 03/26/19 03/25/19 History amLODIPine [Norvasc] 10 mg PO DAILY 03/26/19 03/26/19 03/25/19 History carvediloL [Coreg] 12.5 mg PO BID 03/26/19 03/26/19 03/25/19 History Active Meds: Active Medications Acetaminophen (Acetaminophen 325 Mg Tab) 650 mg PO Q4H PRN PRN Reason: Pain MILD(1-3)/Fever >100.5/BLAIR Albuterol (Albuterol 2.5 Mg/3 Ml Nebu) 2.5 mg IH Q4HRT PRN PRN Reason: Shortness Of Breath Amitriptyline HCl (Amitriptyline 25 Mg Tab) 25 mg PO QHS RADHA Sodium Chloride (Nacl 0.9% 1000 Ml) 1,000 mls @ 125 mls/hr IV ONCE ONE Stop: 07/29/20 00:21 Methocarbamol (Methocarbamol 500 Mg Tab) 500 mg PO QDAY RADHA Ondansetron HCl (Ondansetron 4 Mg/2 Ml Inj) 4 mg IV Q8H PRN PRN Reason: Nausea And Vomiting Sodium Chloride (Sodium Chloride 0.9% 10 Ml Flush Syringe) 10 ml IV BID RADHA Sodium Chloride (Sodium Chloride 0.9% 10 Ml Flush Syringe) 10 ml IV PRN PRN PRN Reason: LINE FLUSH Stop: 08/07/20 15:59 - Vital Signs Vital signs: Vital Signs Temp Pulse Resp BP Pulse Ox 97.5 F L 104 H 20 88/54 100 07/28/20 11:16 07/28/20 11:16 07/28/20 11:16 07/28/20 11:16 07/28/20 11:16 Temp Pulse Resp BP Pulse Ox 98 F 68 18 114/58 100 07/28/20 19:58 07/28/20 19:58 07/28/20 19:58 07/28/20 19:58 07/28/20 19:58 - Physical Exam Breasts: Positive: deferred Abdomen: Positive: soft, other (Large midline surgical scar) Genitourinary (Female): Positive: other (Pelvic exam deferred due to patient recently been clean and has a diaper in place no active bleeding at present) Results Result Diagrams: 07/28/20 14:39 07/28/20 14:39 Abnormal lab results 07/28/20 07/28/20 07/28/20 Range/Units 11:24 11:24 13:32 RBC 2.58 L (3.65-5.03) M/mm3 Hgb 7.7 L (10.1-14.3) gm/dl Hct 23.4 L (30.3-42.9) % RDW 19.2 H (13.2-15.2) % Seg Neutrophils % 71.1 H (40.0-70.0) % Potassium 5.1 H (3.6-5.0) mmol/L Chloride 109.9 H (98-107) mmol/L Carbon Dioxide 12 L (22-30) mmol/L BUN 18 H (7-17) mg/dL Glucose 103 H (65-100) mg/dL Calcium 7.0 L (8.4-10.2) mg/dL AST 60 H (5-40) units/L ALT 86 H (7-56) units/L Total Protein 5.7 L (6.3-8.2) g/dL Albumin 3.1 L (3.9-5) g/dL Ur Specific [place] (1.003-1.030) Urine WBC (Auto) (0.0-6.0) /HPF Crossmatch See Detail 07/28/20 07/28/20 07/28/20 Range/Units 14:39 14:39 Unknown RBC (3.65-5.03) M/mm3 Hgb 5.8 L* (10.1-14.3) gm/dl Hct 19.0 L* (30.3-42.9) % RDW (13.2-15.2) % Seg Neutrophils % (40.0-70.0) % Potassium 3.5 L D (3.6-5.0) mmol/L Chloride 109.4 H (98-107) mmol/L Carbon Dioxide 12 L (22-30) mmol/L BUN 19 H (7-17) mg/dL Glucose (65-100) mg/dL Calcium 6.6 L (8.4-10.2) mg/dL AST (5-40) units/L ALT (7-56) units/L Total Protein (6.3-8.2) g/dL Albumin (3.9-5) g/dL Ur Specific [place] 1.054 H (1.003-1.030) Urine WBC (Auto) 120.0 H (0.0-6.0) /HPF Crossmatch All other labs normal. Assessment and Plan - Patient Problems (1) Severe malnutrition Current Visit: Yes Status: Acute Plan to address problem: Been addressed by patient's primary team. (2) Symptomatic anemia Current Visit: Yes Status: Acute Plan to address problem: Patient receiving packed red blood cells (3) Volume depletion Current Visit: Yes Status: Chronic (4) Dysfunctional uterine bleeding Current Visit: No Status: Acute Plan to address problem: Probably secondary to fibroids unsure from patient and and history in chart she was currently on anticoagulants will discuss with hospitalist. H&P does note that no anticoagulants will be administered at present. Due to patient is a history of thrombus unsure if hormonal therapy would be prudent but will discuss with her primary team the risks of using hormones in this patient. (5) Fibroids Current Visit: No Status: Acute Qualifiers: Uterine leiomyoma location: intramural Qualified Code(s): D25.1 - Intramural leiomyoma of uterus Plan to address problem: Fibrosis seen on the CT scan would prefer additional imaging with a pelvic ultrasound to clearly see the size of her leiomyomata. Patient presently in poor health and unsure about status for possible surgery intervention until patient condition improves. (6) Occluded PICC line Current Visit: No Status: Acute Plan to address problem: Patient states that her PICC line is occluded were referred to her primary team
[2020-07-28] MEDS: AMITRIPTYLINE 25 MG TAB PO SCH (22:30)
[2020-07-29 05:46] LABS: Basophils # (Auto) 0.1 K/mm3 (0.0-0.1); Basophils % (Auto) 0.6 % (0.0-1.8); Eosinophils # (Auto) 0.1 K/mm3 (0.0-0.4); Eosinophils % (Auto) 1.2 % (0.0-4.3); Hematocrit 21.9 % (30.3-42.9); Hemoglobin 7.5 gm/dl (10.1-14.3); Lymphocytes # (Auto) 1.9 K/mm3 (1.2-5.4); Lymphocytes % (Auto) 21.5 % (13.4-35.0); Mean Corpuscular HGB Conc 34 % (30-34); Mean Corpuscular Volume 89 fl (79-97); Monocytes # (Auto) 0.5 K/mm3 (0.0-0.8); Monocytes % (Auto) 5.8 % (0.0-7.3); Platelet Count 126 K/mm3 (140-440); Red Blood Count 2.46 M/mm3 (3.65-5.03); Red Cell Distribution Width 16.8 % (13.2-15.2)
[2020-07-29 09:14] LABS: BUN/Creatinine Ratio 18; Blood Urea Nitrogen 14 mg/dL (7-17); Hemolysis Index 4
[2020-07-29 09:25] LABS: Calcium 5.9 mg/dL (8.4-10.2)
--- NOTE | 2020-07-29 10:04 | Electrocardiograph Report ---
[facility] Test Date: 2020-07-28 Test Time: 18:45:05 Pat Name: KALIE CASTILLO Department: Room: [facility] Gender: F Bus Attendant: GIOVANNA : 1975 Requested By: CAMILO GARNETT Order Number: [id number] Reading MD: Riddhi Agudelo Measurements Intervals [place] Rate: 59 P: 61 GA: 176 QRS: 57 QRSD: 94 T: 90 QT: 510 QTc: 502 Interpretive Statements Sinus bradycardia Atrial premature complex Nonspecific T wave abnormality No previous ECG available for comparison Electronically Signed On 07-29-2020 10:03:58 EDT by Riddhi Agudelo
--- NOTE | 2020-07-29 10:46 | Progress Note ---
Assessment and Plan Assessment and plan: -- Symptomatic anemia Current Visit: Yes Status: Acute Received 2 units PRBC transfusion Hb 7.5, closely monitor H&H transfuse additional PRBC as needed --Menorrhagia/leiomyoma; Current Visit: Yes Status: Acute . Management per STEAMTABLE WORKER Follow pelvic ultrasound --Hypocalcemia; Current Visit: Yes Status: Acute replenished with calcium gluconate Monitor levels --Hypomagnesemia/hypokalemia Current Visit: Yes Status: Chronic replenished with mag sulfate and KCl Monitor electrolytes --h/o bowel surgery/ short gut syndrome; Current Visit: Yes Status: Chronic IV fluids, TPN, supportive care --History of lupus / lupus anticoagulant syndrome patient will follow outpatient rheumatology and hematology For further evaluation management --History of right brachial vein DVT in 10/2017 , patient was discharged on Lovenox during that admission Currently not on anticoagulants -- Metabolic acidosis Current Visit: Yes Status: Acute Plan to address problem: IV fluid resuscitation therapy, supportive care, repeat BMP in a.m. --Volume depletion Current Visit: Yes Status: Acute Plan to address problem: IV fluid resuscitation therapy, supportive care, monitor urine output every shift. --Severe malnutrition Current Visit: Yes Status: Acute Plan to address problem: Protein supplementation, encourage increased oral intake, -- DVT prophylaxis Current Visit: No Status: Acute Plan to address problem: SCD to bilateral lower extremities with in bed, hold anticoagulation due to active vaginal bleeding. We will closely monitor the patient and adjust management as needed Plan of care reviewed with the patient and her nurse. I also discussed with STEAMTABLE WORKER attending History Interval history: I have seen and examined the patient at the bedside patient's chart and medications reviewed Patient was admitted with severe anemia and menorrhagia Received 2 units of PRBC transfusion with mild improvement Continues to have active bleeding, STEAMTABLE WORKER following Vital signs noted Hospitalist Physical - Constitutional Vitals: Temp Pulse Resp BP Pulse Ox 98.5 F 60 16 89/58 100 07/29/20 05:34 07/29/20 01:12 07/29/20 05:34 07/29/20 05:34 07/29/20 09:17 General appearance: Present: mild distress, cachectic - EENT Eyes: Present: PERRL, EOM intact - Neck Neck: Present: supple, normal ROM - Respiratory Respiratory effort: normal Respiratory: bilateral: diminished, negative: rales, rhonchi, wheezing - Cardiovascular Rhythm: regular Heart Sounds: Present: S1 & S2 - Extremities Extremities: no ischemia, No edema - Abdominal General gastrointestinal: soft, non-tender, non-distended, normal bowel sounds - Integumentary Integumentary: Present: clear, warm - Psychiatric Psychiatric: appropriate mood/affect, cooperative - Neurologic Neurologic: CNII-XII intact, moves all extremities Results - Labs CBC & Chem 7: 07/29/20 05:24 07/29/20 08:10 Labs: Laboratory Last Values WBC 8.7 K/mm3 (4.5-11.0) 07/29/20 05:24 RBC 2.46 M/mm3 (3.65-5.03) L 07/29/20 05:24 Hgb 7.5 gm/dl (10.1-14.3) L 07/29/20 05:24 Hct 21.9 % (30.3-42.9) L 07/29/20 05:24 MCV 89 fl (79-97) 07/29/20 05:24 MCH 31 pg (28-32) 07/29/20 05:24 MCHC 34 % (30-34) 07/29/20 05:24 RDW 16.8 % (13.2-15.2) H 07/29/20 05:24 Plt Count 126 K/mm3 (140-440) L 07/29/20 05:24 Lymph % (Auto) 21.5 % (13.4-35.0) 07/29/20 05:24 [place] % (Auto) 5.8 % (0.0-7.3) 07/29/20 05:24 Eos % (Auto) 1.2 % (0.0-4.3) 07/29/20 05:24 Baso % (Auto) 0.6 % (0.0-1.8) 07/29/20 05:24 Lymph # (Auto) 1.9 K/mm3 (1.2-5.4) 07/29/20 05:24 [place] # (Auto) 0.5 K/mm3 (0.0-0.8) 07/29/20 05:24 Eos # (Auto) 0.1 K/mm3 (0.0-0.4) 07/29/20 05:24 Baso # (Auto) 0.1 K/mm3 (0.0-0.1) 07/29/20 05:24 Seg Neutrophils % 70.9 % (40.0-70.0) H 07/29/20 05:24 Seg Neutrophils # 6.2 K/mm3 (1.8-7.7) 07/29/20 05:24 Sodium 141 mmol/L (137-145) 07/29/20 08:10 Potassium 3.3 mmol/L (3.6-5.0) L 07/29/20 08:10 Chloride 114.5 mmol/L (98-107) H 07/29/20 08:10 Carbon Dioxide 14 mmol/L (22-30) L 07/29/20 08:10 Anion Gap 16 mmol/L 07/29/20 08:10 BUN 14 mg/dL (7-17) 07/29/20 08:10 Creatinine 0.8 mg/dL (0.6-1.2) 07/29/20 08:10 Estimated GFR > 60 ml/min 07/29/20 08:10 BUN/Creatinine Ratio 18 % 07/29/20 08:10 Glucose 106 mg/dL (65-100) H 07/29/20 08:10 Calcium 5.9 mg/dL (8.4-10.2) L* 07/29/20 08:10 Phosphorus 3.20 mg/dL (2.5-4.5) 07/29/20 08:10 Magnesium 1.00 mg/dL (1.7-2.3) L 07/29/20 08:10 Total Bilirubin 0.50 mg/dL (0.1-1.2) 07/28/20 11:24 AST 60 units/L (5-40) H 07/28/20 11:24 ALT 86 units/L (7-56) H 07/28/20 11:24 Alkaline Phosphatase 69 units/L (35-129) 07/28/20 11:24 Total Protein 5.7 g/dL (6.3-8.2) L 07/28/20 11:24 Albumin 3.1 g/dL (3.9-5) L 07/28/20 11:24 Albumin/Globulin Ratio 1.2 % 07/28/20 11:24 Lipase 20 units/L (13-60) 07/28/20 11:24 HCG, Qual Negative (Negative) 07/28/20 11:24 Urine Color Red (Yellow) 07/28/20 Unknown Urine Turbidity Slightly-cloudy (Clear) 07/28/20 Unknown Urine pH 6.0 (5.0-7.0) 07/28/20 Unknown Ur Specific [place] 1.054 (1.003-1.030) H 07/28/20 Unknown Urine Protein 100 mg/dl mg/dL (Negative) 07/28/20 Unknown Urine Glucose (UA) 50 mg/dL (Negative) 07/28/20 Unknown Urine Ketones Neg mg/dL (Negative) 07/28/20 Unknown Urine Blood Lg (Negative) 07/28/20 Unknown Urine Nitrite Neg (Negative) 07/28/20 Unknown Urine Bilirubin Neg (Negative) 07/28/20 Unknown Urine Urobilinogen < 2.0 mg/dL (<2.0) 07/28/20 Unknown Ur Leukocyte Esterase Tr (Negative) 07/28/20 Unknown Urine WBC (Auto) 120.0 /HPF (0.0-6.0) H 07/28/20 Unknown Urine RBC (Auto) > 182.0 /HPF (0.0-6.0) 07/28/20 Unknown U Epithel Cells (Auto) 6.0 /HPF (0-13.0) 07/28/20 Unknown Blood Type O POSITIVE 07/28/20 13:32 Antibody Screen Negative 07/28/20 13:32 Crossmatch See Detail 07/28/20 13:32 Reddy/IV: Voiding Method Toilet Active Medications - Current Medications Current Medications: Generic Name Dose Route Start Last Admin Trade Name Zenonq PRN Reason Stop Dose Admin Acetaminophen 650 mg 07/28/20 16:00 Acetaminophen 325 Mg Tab PO Q4H PRN Pain MILD(1-3)/Fever >100.5/BLAIR Albuterol 2.5 mg 07/28/20 16:00 Albuterol 2.5 Mg/3 Ml Nebu IH Q4HRT PRN Shortness Of Breath Amitriptyline HCl 25 mg 07/28/20 22:00 07/28/20 22:30 Amitriptyline 25 Mg Tab PO 25 mg QHS RADHA Administration Magnesium Sulfate 4 gm in 100 mls @ 25 mls/hr 07/29/20 10:37 Magnesium Sulfate 4gm/100ml IV 07/29/20 14:36 ONCE ONE Calcium Gluconate 2,000 mg/ 120 mls @ 660 mls/hr 07/29/20 10:39 Sodium Chloride IV 07/29/20 10:49 ONCE ONE Methocarbamol 500 mg 07/29/20 10:00 07/29/20 09:44 Methocarbamol 500 Mg Tab PO 500 mg QDAY RADHA Administration Ondansetron HCl 4 mg 07/28/20 16:00 Ondansetron 4 Mg/2 Ml Inj IV Q8H PRN Nausea And Vomiting Potassium Chloride 40 meq 07/29/20 10:36 Potassium Chloride Er 20 Meq Tab PO 07/29/20 10:37 ONCE ONE Sodium Chloride 10 ml 07/28/20 22:00 07/29/20 09:45 Sodium Chloride 0.9% 10 Ml Flush Syringe IV 10 ml BID RADHA Administration Sodium Chloride 10 ml 07/28/20 16:00 Sodium Chloride 0.9% 10 Ml Flush Syringe IV 08/07/20 15:59 PRN PRN LINE FLUSH
[2020-07-29] MEDS ORDERED: POTASSIUM CHLORIDE ER 20 MEQ TAB PO SCH (11:00)
[2020-07-29] MEDS ORDERED: MAGNESIUM SULFATE 4 GM/100 ML BAG IV ONE (11:30)
[2020-07-29] MEDS ORDERED: CALCIUM GLUCONATE 2,000 MG in SODIUM CHLORIDE 0.9% 100 ML IV ONE (12:00)
[2020-07-29] MEDS: ACETAMINOPHEN 325 MG TAB PO PRN (14:25)
--- NOTE | 2020-07-29 17:49 | Consultation ---
History of Present Illness Reason for consult: menorrhagia, other (Leiomyomata) History of present illness: Patient complains of cramping and still complains vaginal bleeding. Unknown able to quantify amount of bleeding today. Patient now without diapers she had on in the emergency room. Past History Past Medical History: hypertension, other (See history and physical for more details) Past Surgical History: MEDICAL INVESTIGATOR/uterine surgery (Patient states that she has had a laparotomy with partial salpingectomy for ectopic and also a laparoscopy with she believes another salpingectomy on the contralateral side due to a second ectopic ), other (Bowel resection. See admission history and physical for further details) MEDICAL INVESTIGATOR History: fibroids - Obstetrical History : 6 Medications and Allergies Allergies Allergy/AdvReac Type Severity Reaction Status Date / Time oxycodone [From Percocet] Allergy Rash Verified 10/10/17 14:32 Home Medications Medication Instructions Recorded Confirmed Last Taken Type Albuterol Sulfate [Proventil Hfa] 6.7 gm IH Q4H PRN 30 Days 11/08/17 07/29/20 03/25/19 Rx hfa.aer.ad Amitriptyline [Elavil] 25 mg PO QHS 10/21/18 07/29/20 06/28/20 09:00 History Ibuprofen [Motrin 800 MG tab] 800 mg PO Q8HR PRN 10/21/18 07/29/20 03/25/19 History Methocarbamol [Robaxin] 500 mg PO QDAY 03/26/19 07/29/20 06/28/20 09:00 History amLODIPine [Norvasc] 10 mg PO DAILY 03/26/19 07/29/20 06/28/20 09:00 History carvediloL [Coreg] 12.5 mg PO BID 03/26/19 07/29/20 06/28/20 09:00 History Active Meds: Active Medications Acetaminophen (Acetaminophen 325 Mg Tab) 650 mg PO Q4H PRN PRN Reason: Pain MILD(1-3)/Fever >100.5/BLAIR Last Admin: 07/29/20 14:25 Dose: 650 mg Documented by: Albuterol (Albuterol 2.5 Mg/3 Ml Nebu) 2.5 mg IH Q4HRT PRN PRN Reason: Shortness Of Breath Amitriptyline HCl (Amitriptyline 25 Mg Tab) 25 mg PO QHS [facility] Last Admin: 07/28/20 22:30 Dose: 25 mg Documented by: Amino Acids/Electrolytes/Dextrose (Tpn Adult) 1,800 mls @ 75 mls/hr IV DAILY@1999 [facility]; Protocol Stop: 07/30/20 19:59 Ketorolac Tromethamine (Ketorolac 10 Mg Tab) 10 mg PO Q8H PRN PRN Reason: Pain, Mild (1-3) Stop: 08/03/20 20:59 Methocarbamol (Methocarbamol 500 Mg Tab) 500 mg PO QDAY [facility] Last Admin: 07/29/20 09:44 Dose: 500 mg Documented by: Ondansetron HCl (Ondansetron 4 Mg/2 Ml Inj) 4 mg IV Q8H PRN PRN Reason: Nausea And Vomiting Last Admin: 07/29/20 14:25 Dose: 4 mg Documented by: Sodium Chloride (Sodium Chloride 0.9% 10 Ml Flush Syringe) 10 ml IV BID [facility] Last Admin: 07/29/20 09:45 Dose: 10 ml Documented by: Sodium Chloride (Sodium Chloride 0.9% 10 Ml Flush Syringe) 10 ml IV PRN PRN PRN Reason: LINE FLUSH Stop: 08/07/20 15:59 - Vital Signs Vital signs: Vital Signs Temp Pulse Resp BP Pulse Ox 97.5 F L 104 H 20 88/54 100 07/28/20 11:16 07/28/20 11:16 07/28/20 11:16 07/28/20 11:16 07/28/20 11:16 Temp Pulse Resp BP Pulse Ox 98.1 F 56 L 18 158/69 100 07/29/20 17:00 07/29/20 17:00 07/29/20 17:00 07/29/20 17:00 07/29/20 17:00 - Physical Exam Abdomen: Positive: soft, tenderness, other (Large surgical scar) Genitourinary (Female): Positive: normal external genitalia, other (Scant amount of blood on pad patient states she just recently changed her pad) Results Result Diagrams: 07/29/20 05:24 07/29/20 08:10 Abnormal lab results 07/28/20 07/29/20 07/29/20 Range/Units 13:32 05:24 08:10 RBC 2.46 L (3.65-5.03) M/mm3 Hgb 7.5 L (10.1-14.3) gm/dl Hct 21.9 L (30.3-42.9) % RDW 16.8 H (13.2-15.2) % Plt Count 126 L (140-440) K/mm3 Seg Neutrophils % 70.9 H (40.0-70.0) % Potassium 3.3 L (3.6-5.0) mmol/L Chloride 114.5 H (98-107) mmol/L Carbon Dioxide 14 L (22-30) mmol/L Glucose 106 H (65-100) mg/dL Calcium 5.9 L* (8.4-10.2) mg/dL Magnesium 1.00 L (1.7-2.3) mg/dL Crossmatch See Detail All other labs normal. Assessment and Plan - Patient Problems (1) Severe malnutrition Current Visit: Yes Status: Acute Plan to address problem: Patient still has not had her TPN restarted plans to restart it this evening. Still very much concerned about patient's nutritional status and ability to tolerate surgical treatment. (2) Symptomatic anemia Current Visit: Yes Status: Acute Plan to address problem: Patient did have increase in her hemoglobin was checked this morning did discuss with Dr. Murdock who states will repeat H&H. (3) Volume depletion Current Visit: Yes Status: Chronic (4) Dysfunctional uterine bleeding Current Visit: Yes Status: Acute Plan to address problem: H&H has been reassess and will try to evaluate patient's fibroids. Patient does have contraindications for hormonal therapy and discussed this with attending physician (5) Fibroids Current Visit: No Status: Acute Qualifiers: Uterine leiomyoma location: intramural Qualified Code(s): D25.1 - Intramural leiomyoma of uterus Plan to address problem: Pelvic ultrasound not performed will order pelvic ultrasound to evaluate the size of the of her fibroids most likely cause of her dysfunctional uterine bleeding. Patient desires hysterectomy. Again discussed with the patient and discussed with Dr. Murdock my concerns about patient's overall health and ability to tolerate major surgery. (6) Occluded PICC line Current Visit: No Status: Acute Plan to address problem: Patient states still waiting for evaluation and probable restart of a new PICC line.
[2020-07-29] MEDS ORDERED: TOTAL PARENTERAL NUTRITION 1,800 ML IV SCH (20:00)
[2020-07-29] MEDS: KETOROLAC 10 MG TAB PO PRN (20:58)
[2020-07-29] MEDS: AMITRIPTYLINE 25 MG TAB PO SCH (21:00)
[2020-07-29] MEDS: carvediloL 12.5 MG TAB PO SCH (21:00)
[2020-07-29 23:29] LABS: Hematocrit 20.1 % (30.3-42.9); Hemoglobin 6.8 gm/dl (10.1-14.3)
[2020-07-30] MEDS: KETOROLAC 10 MG TAB PO PRN ×2 (05:54→14:47)
[2020-07-30 05:59] LABS: Basophils % (Auto) 0.7 % (0.0-1.8); Eosinophils # (Auto) 0.1 K/mm3 (0.0-0.4); Eosinophils % (Auto) 1.7 % (0.0-4.3); Hemoglobin 6.3 gm/dl (10.1-14.3); Lymphocytes # (Auto) 1.7 K/mm3 (1.2-5.4); Lymphocytes % (Auto) 27.9 % (13.4-35.0); Mean Corpuscular HGB Conc 34 % (30-34); Mean Corpuscular Volume 90 fl (79-97); Monocytes # (Auto) 0.3 K/mm3 (0.0-0.8); Platelet Count 127 K/mm3 (140-440); Red Blood Count 2.07 M/mm3 (3.65-5.03); Red Cell Distribution Width 17.5 % (13.2-15.2)
[2020-07-30 06:03] LABS: Hematocrit 18.6 % (30.3-42.9)
[2020-07-30] MEDS ORDERED: SODIUM CHLORIDE 0.9% 500 ML 500 ML IV ONE (06:06)
[2020-07-30] MEDS ORDERED: CALCIUM GLUCONATE 1,000 MG in SODIUM CHLORIDE 0.9% 100 ML IV ONE (06:07)
[2020-07-30 06:20] LABS: Blood Urea Nitrogen 11 mg/dL (7-17); Calcium 6.5 mg/dL (8.4-10.2); Hemolysis Index 2
[2020-07-30 06:24] LABS: BUN/Creatinine Ratio 18
--- NOTE | 2020-07-30 11:12 | Progress Note ---
Assessment and Plan - Patient Problems (1) Anemia requiring transfusions Current Visit: Yes Status: Acute (2) Dysfunctional uterine bleeding Current Visit: Yes Status: Acute Plan to address problem: -bleeding as per pt is still present but less than admission (3) Menorrhagia Current Visit: Yes Status: Acute Qualifiers: Menorrhagia type: with irregular cycle Qualified Code(s): N92.1 - Excessive and frequent menstruation with irregular cycle Plan to address problem: -fibroids are present on sonogram. It is unclear from the images what the overall size of the uterus is. Will await final report. unable able to given hormone therapy at this time due to pt past history. (4) Severe malnutrition Current Visit: Yes Status: Acute Plan to address problem: -tpn was hanging at time of my visit with the pt -cont treatment as per primary team (5) Volume depletion Current Visit: Yes Status: Chronic (6) Abdominal pain Current Visit: No Status: Acute Qualifiers: Abdominal location: lower abdomen, unspecified Qualified Code(s): R10.30 - Lower abdominal pain, unspecified (7) Fibroids Current Visit: No Status: Acute Qualifiers: Uterine leiomyoma location: intramural Qualified Code(s): D25.1 - Intramural leiomyoma of uterus Plan to address problem: -as per Dr. Zendejas's note as well as converstion with pt, hyst is desired. As per Dr. Vasquez, will proceed with procedure once pt is stable and cleared from a medical standpoint to under go major surgery. Would also need to have final sono report prior to procedure also. Subjective - Subjective Date of service: 07/30/20 (LATE ENTRY PT SEEN AT 0845) Principal diagnosis: DUB; FIBROIDS; SYMPTOMATIC ANEMIA; VOLUME DEPLETION Interval history: Pt states she is still having some bleeding but states this am it is not as heavy as when she came in. She states she is still passing some clots. TPN is hanging this pm. Pt inquired about eating. I advised she will need to check with primary team. Pt has not additional concerns for provider this am. Patient reports: pain poorly controlled (pt states she has had minimal relief with the tylenol she had this am), no nauseated Objective - Vital Signs Latest vital signs: Vital Signs Temp Pulse Pulse Resp Resp BP BP 07/30/20 10:00 18 07/30/20 06:24 17 07/30/20 05:54 18 07/30/20 05:02 97.4 F L 56 L 18 104/57 07/29/20 22:31 97.5 F L 60 18 109/61 07/29/20 22:00 18 18 07/29/20 21:28 17 07/29/20 21:06 07/29/20 21:03 98.3 F 65 18 125/61 07/29/20 21:00 64 125/61 07/29/20 20:58 18 07/29/20 17:40 64 20 07/29/20 17:00 98.1 F 56 L 18 158/69 07/29/20 14:25 20 Pulse Ox 07/30/20 10:00 07/30/20 06:24 07/30/20 05:54 07/30/20 05:02 100 07/29/20 22:31 100 07/29/20 22:00 100 07/29/20 21:28 07/29/20 21:06 100 07/29/20 21:03 100 07/29/20 21:00 07/29/20 20:58 07/29/20 17:40 100 07/29/20 17:00 100 07/29/20 14:25 Intake and Output 07/29/20 07/30/20 07/30/20 22:59 06:59 14:59 Intake Total 420 Balance 420 Intake: Oral 420 Other: Total, Intake Amount 420 Voiding Method Toilet Toilet # Voids Void 2 Weight 46 kg 46 kg Patient Weight 07/31/20 06:59 Weight 46 kg - Exam Abdomen: Present: normal appearance. Absent: distention, tenderness Extremities: Present: normal. Absent: tenderness, edema - Labs Labs: Abnormal lab results 07/28/20 07/29/20 07/29/20 Range/Units 13:32 23:01 23:38 RBC (3.65-5.03) M/mm3 Hgb 6.8 L (10.1-14.3) gm/dl Hct 20.1 L (30.3-42.9) % RDW (13.2-15.2) % Plt Count (140-440) K/mm3 Chloride (98-107) mmol/L Carbon Dioxide (22-30) mmol/L Glucose (65-100) mg/dL POC Glucose 108 H (70-105) mg/dL Calcium (8.4-10.2) mg/dL Phosphorus (2.5-4.5) mg/dL Crossmatch See Detail 07/30/20 07/30/20 Range/Units 05:31 05:31 RBC 2.07 L (3.65-5.03) M/mm3 Hgb 6.3 L (10.1-14.3) gm/dl Hct 18.6 L* (30.3-42.9) % RDW 17.5 H (13.2-15.2) % Plt Count 127 L (140-440) K/mm3 Chloride 115.1 H (98-107) mmol/L Carbon Dioxide 17 L (22-30) mmol/L Glucose 112 H (65-100) mg/dL POC Glucose (70-105) mg/dL Calcium 6.5 L (8.4-10.2) mg/dL Phosphorus 1.80 L D (2.5-4.5) mg/dL Crossmatch
[2020-07-30] MEDS: amLODIPine 10 MG TAB PO SCH (11:30)
[2020-07-30] MEDS: carvediloL 12.5 MG TAB PO SCH (11:30)
[2020-07-30] MEDS: ACETAMINOPHEN 325 MG TAB PO PRN (11:30)
[2020-07-30] MEDS ORDERED: SODIUM CHLORIDE 0.9% 500 ML 500 ML ONE (12:55)
--- NOTE | 2020-07-30 14:19 | Ultrasound Report ---
ULTRASOUND PELVIS INDICATION / CLINICAL INFORMATION: Fibroids w/menorrhagia. Please assess size of tumor. TECHNIQUE: Transvaginal. Duplex Color Doppler used: Yes. COMPARISON: CT abdomen/pelvis with contrast 07/28/2020 and pelvic ultrasound 07/03/2017. FINDINGS: UTERUS: - Appearance: No significant abnormality. - Size (cm): 10.6 cm. - Endometrial Complex (if present): Thickened. Thickness in cm (if measured) = 2.0 cm. - Mass or cyst: Multiple uterine fibroids, the largest measuring 2.3 cm within the mid body endometri um. - Additional findings: None. RIGHT ADNEXA: The right ovary is not visualized on today's exam. LEFT ADNEXA: The left ovary measures 2.0 cm. No significant ovarian cyst or mass. Normal color Dopple r blood flow. URINARY BLADDER: No significant abnormality. FREE FLUID: None. ADDITIONAL FINDINGS: None. IMPRESSION: 1. Multiple uterine fibroids, as described above. The endometrium is thickened at 2.0 cm. Scribed by: Violeta Washington RDMS, RVT Scribed: 07/30/2020 10:39 AM Signer Name: Yamil Chery MD Signed: 07/30/2020 2:14 PM Workstation Name: [email or web address]
--- NOTE | 2020-07-30 17:44 | Progress Note ---
Assessment and Plan Assessment and plan: --Hypophosphatemia; IV K-Phos 30 millimoles stat 1 dose Monitor electrolytes -- Symptomatic anemia Current Visit: Yes Status: Acute Received 2 units PRBC transfusion Hb 7.5, dropped to 6.3 today Transfuse third unit of PRBC , monitor H&H Treat the underlying cause menorrhagia fibroid uterus per SPECIAL DELIVERY CLERK closely monitor H&H transfuse additional PRBC as needed --Menorrhagia/leiomyoma; Current Visit: Yes Status: Acute . Management per SPECIAL DELIVERY CLERK Follow pelvic ultrasound --Hypocalcemia; Current Visit: Yes Status: Acute replenished with calcium gluconate Monitor levels --Hypomagnesemia/hypokalemia Current Visit: Yes Status: Chronic replenished with mag sulfate and KCl Monitor electrolytes --h/o bowel surgery/ short gut syndrome; Current Visit: Yes Status: Chronic IV fluids, TPN, supportive care --History of lupus / lupus anticoagulant syndrome patient will follow outpatient rheumatology and hematology For further evaluation management --History of right brachial vein DVT in 10/2017 , patient was discharged on Lovenox during last admission Currently not on anticoagulants, continue to hold -- Metabolic acidosis Current Visit: Yes Status: Acute IV fluid resuscitation therapy, supportive care, repeat BMP in a.m. --Volume depletion Current Visit: Yes Status: Acute IV fluid resuscitation therapy, supportive care, monitor urine output every shift. --Severe malnutrition Current Visit: Yes Status: Acute Protein supplementation, encourage increased oral intake, -- DVT prophylaxis Current Visit: No Status: Acute SCD to bilateral lower extremities with in bed, hold anticoagulation due to active vaginal bleeding. We will closely monitor the patient and adjust management as needed Plan of care reviewed with the patient and her nurse. 07/30/2020; transfuse additional 1 unit PRBC today Closely monitor H&H, treat underlying cause of anemia Closely monitor the patient and adjust management as needed History Interval history: I have seen and examined patient at bedside patient's chart and medications reviewed Patient is agreeable to units PRBC yesterday, patient's hemoglobin significantly dropped this morning Hb 6.3, transfuse additional unit of PRBC, check other source of bleeding Transfuse 1 additional PRBC today Patient complains of generalized weakness Vital signs noted Hospitalist Physical - Constitutional Vitals: Temp Pulse Resp BP Pulse Ox 98.6 F 61 19 110/65 100 07/30/20 15:55 07/30/20 15:55 07/30/20 15:55 07/30/20 15:55 07/30/20 15:55 General appearance: Present: mild distress, cachectic - EENT Eyes: Present: PERRL, EOM intact - Neck Neck: Present: supple, normal ROM - Respiratory Respiratory effort: normal Respiratory: bilateral: diminished, negative: rales, rhonchi, wheezing - Cardiovascular Rhythm: regular Heart Sounds: Present: S1 & S2 - Extremities Extremities: no ischemia, pulses intact Extremity abnormal: edema - Abdominal General gastrointestinal: soft, non-tender, non-distended, normal bowel sounds - Integumentary Integumentary: Present: clear, warm - Psychiatric Psychiatric: appropriate mood/affect, cooperative - Neurologic Neurologic: moves all extremities Results - Labs CBC & Chem 7: 07/30/20 05:31 07/30/20 05:31 Labs: Laboratory Last Values WBC 6.0 K/mm3 (4.5-11.0) 07/30/20 05:31 RBC 2.07 M/mm3 (3.65-5.03) L 07/30/20 05:31 Hgb 6.3 gm/dl (10.1-14.3) L 07/30/20 05:31 Hct 18.6 % (30.3-42.9) L* 07/30/20 05:31 MCV 90 fl (79-97) 07/30/20 05:31 MCH 30 pg (28-32) 07/30/20 05:31 MCHC 34 % (30-34) 07/30/20 05:31 RDW 17.5 % (13.2-15.2) H 07/30/20 05:31 Plt Count 127 K/mm3 (140-440) L 07/30/20 05:31 Lymph % (Auto) 27.9 % (13.4-35.0) 07/30/20 05:31 [place] % (Auto) 5.0 % (0.0-7.3) 07/30/20 05:31 Eos % (Auto) 1.7 % (0.0-4.3) 07/30/20 05:31 Baso % (Auto) 0.7 % (0.0-1.8) 07/30/20 05:31 Lymph # (Auto) 1.7 K/mm3 (1.2-5.4) 07/30/20 05:31 [place] # (Auto) 0.3 K/mm3 (0.0-0.8) 07/30/20 05:31 Eos # (Auto) 0.1 K/mm3 (0.0-0.4) 07/30/20 05:31 Baso # (Auto) 0.0 K/mm3 (0.0-0.1) 07/30/20 05:31 Seg Neutrophils % 64.7 % (40.0-70.0) 07/30/20 05:31 Seg Neutrophils # 3.9 K/mm3 (1.8-7.7) 07/30/20 05:31 Sodium 139 mmol/L (137-145) 07/30/20 05:31 Potassium 4.0 mmol/L (3.6-5.0) D 07/30/20 05:31 Chloride 115.1 mmol/L (98-107) H 07/30/20 05:31 Carbon Dioxide 17 mmol/L (22-30) L 07/30/20 05:31 Anion Gap 11 mmol/L 07/30/20 05:31 BUN 11 mg/dL (7-17) 07/30/20 05:31 Creatinine 0.6 mg/dL (0.6-1.2) 07/30/20 05:31 Estimated GFR > 60 ml/min 07/30/20 05:31 BUN/Creatinine Ratio 18 % 07/30/20 05:31 Glucose 112 mg/dL (65-100) H 07/30/20 05:31 POC Glucose 91 mg/dL (70-105) 07/30/20 16:47 Calcium 6.5 mg/dL (8.4-10.2) L 07/30/20 05:31 Phosphorus 1.80 mg/dL (2.5-4.5) L D 07/30/20 05:31 Magnesium 2.10 mg/dL (1.7-2.3) 07/30/20 05:31 Total Bilirubin 0.50 mg/dL (0.1-1.2) 07/28/20 11:24 AST 60 units/L (5-40) H 07/28/20 11:24 ALT 86 units/L (7-56) H 07/28/20 11:24 Alkaline Phosphatase 69 units/L (35-129) 07/28/20 11:24 Total Protein 5.7 g/dL (6.3-8.2) L 07/28/20 11:24 Albumin 3.1 g/dL (3.9-5) L 07/28/20 11:24 Albumin/Globulin Ratio 1.2 % 07/28/20 11:24 Triglycerides 46 mg/dL (2-149) 07/30/20 05:31 Lipase 20 units/L (13-60) 07/28/20 11:24 HCG, Qual Negative (Negative) 07/28/20 11:24 Urine Color Red (Yellow) 07/28/20 Unknown Urine Turbidity Slightly-cloudy (Clear) 07/28/20 Unknown Urine pH 6.0 (5.0-7.0) 07/28/20 Unknown Ur Specific [place] 1.054 (1.003-1.030) H 07/28/20 Unknown Urine Protein 100 mg/dl mg/dL (Negative) 07/28/20 Unknown Urine Glucose (UA) 50 mg/dL (Negative) 07/28/20 Unknown Urine Ketones Neg mg/dL (Negative) 07/28/20 Unknown Urine Blood Lg (Negative) 07/28/20 Unknown Urine Nitrite Neg (Negative) 07/28/20 Unknown Urine Bilirubin Neg (Negative) 07/28/20 Unknown Urine Urobilinogen < 2.0 mg/dL (<2.0) 07/28/20 Unknown Ur Leukocyte Esterase Tr (Negative) 07/28/20 Unknown Urine WBC (Auto) 120.0 /HPF (0.0-6.0) H 07/28/20 Unknown Urine RBC (Auto) > 182.0 /HPF (0.0-6.0) 07/28/20 Unknown U Epithel Cells (Auto) 6.0 /HPF (0-13.0) 07/28/20 Unknown Blood Type O POSITIVE 07/28/20 13:32 Antibody Screen Negative 07/28/20 13:32 Crossmatch See Detail 07/28/20 13:32 Reddy/IV: Voiding Method Toilet Active Medications - Current Medications Current Medications: Generic Name Dose Route Start Last Admin Trade Name Freq PRN Reason Stop Dose Admin Acetaminophen 650 mg 07/28/20 16:00 07/30/20 11:30 Acetaminophen 325 Mg Tab PO 650 mg Q4H PRN Administration Pain MILD(1-3)/Fever >100.5/BLAIR Albuterol 2.5 mg 07/28/20 16:00 Albuterol 2.5 Mg/3 Ml Nebu IH Q4HRT PRN Shortness Of Breath Amitriptyline HCl 25 mg 07/28/20 22:00 07/29/20 21:00 Amitriptyline 25 Mg Tab PO 25 mg QHS RADHA Administration Amlodipine Besylate 10 mg 07/30/20 10:00 07/30/20 11:30 Amlodipine 10 Mg Tab PO 10 mg DAILY RADHA Administration Carvedilol 12.5 mg 07/29/20 22:00 07/30/20 11:30 Carvedilol 12.5 Mg Tab PO 12.5 mg BID RADHA Administration Amino Acids/Electrolytes/Dextrose 1,800 mls @ 75 mls/hr 07/29/20 20:00 07/29/20 20:00 Tpn Adult IV 07/30/20 19:59 75 mls/hr DAILY@1999 [facility] Administration Protocol Amino Acids/Electrolytes/Dextrose 1,800 mls @ 75 mls/hr 07/30/20 20:00 Tpn Adult IV 07/31/20 19:59 DAILY@1999 [facility] Protocol Fat Emulsion Intravenous 250 mls @ 21 mls/hr 07/30/20 20:00 Intralipid 20% IV 07/31/20 08:00 DAILY@1999 [facility] Ketorolac Tromethamine 10 mg 07/29/20 21:00 07/30/20 14:47 Ketorolac 10 Mg Tab PO 08/03/20 20:59 10 mg Q8H PRN Administration Pain, Mild (1-3) Methocarbamol 500 mg 07/29/20 10:00 07/30/20 11:30 Methocarbamol 500 Mg Tab PO 500 mg QDAY RADHA Administration Ondansetron HCl 4 mg 07/28/20 16:00 07/29/20 14:25 Ondansetron 4 Mg/2 Ml Inj IV 4 mg Q8H PRN Administration Nausea And Vomiting Sodium Chloride 10 ml 07/28/20 22:00 07/30/20 11:31 Sodium Chloride 0.9% 10 Ml Flush Syringe IV 10 ml BID RADHA Administration Sodium Chloride 10 ml 07/28/20 16:00 Sodium Chloride 0.9% 10 Ml Flush Syringe IV 08/07/20 15:59 PRN PRN LINE FLUSH Nutrition/Malnutrition Assess - Dietary Evaluation Nutrition/Malnutrition Findings: Nutrition Notes Start: 07/29/20 09:46 Freq: Status: Active Protocol: Document 07/30/20 08:02 AKIKO (Rec: 07/30/20 08:07 AKIKO [id number]) Nutrition Notes Initial or Follow up Reassessment Current Diagnosis Malnutrition Other Pertinent Diagnosis short bowel syndrome, anemia, menorrhagia Current Diet Regular Labs/Tests Phos 1.8 Pertinent Medications Reviewed Height 5 ft 2 in Weight 46 kg [place] Body Weight (kg) 50.00 BMI 18.5 Weight Status Underweight Subjective/Other Information PPN Day 2. Pt continues to bleed. Percent of energy/protein needs met: 35%/100% (PPN only) Burn Absent Trauma Absent GI Symptoms None Current % PO Fair (50-74%) Minimum of two criteria Yes Interpretation of Weight Loss (severe) >2% in 1 week Body Fat Depletion Moderate depletion (severe) Muscle Mass Mild Depletion (non-severe) #1 Nutrition Diagnosis Malnutrition Diagnosis Progress(for reassessment Continues documentation) Is patient on ventilator? No Is Patient Ambulatory and/or Out of Bed Yes REE-([facility]-ambulatory/OOB) [ 1369.225 NUTR.MSJOOB] Kcal/Kg value to use for calculation 34 Approximate Energy Requirements Using 1564 kcal/Kg Calculation Used for Recommendations Kcal/kg Additional Notes Protein: (1.2-1.5g/kg) 54-68g Fluid: 1 ml/kcal or per MD Nutrition Intervention Change Diet Order: Continue Nutrition Support: PPN at 75 ml/hr. Phos 30 mmol Lipds, MVI, Thiamine Kcal 1,056 Protein (gm) 54 Carbohydrates (gm) 100 Fat (gm) 50 Fluid (mL) 2,050 Fiber (gm) 0 Goal #1 Meet needs as best as possible via PPN and PO Anticipated Discharge Needs: Regular with TPN Follow-Up By: 07/31/20 Additional Comments Labs in AM: BMP, Mg, Phos
[2020-07-30] MEDS ORDERED: POTASSIUM PHOSPHATE 30 MMOL in SODIUM CHLORIDE 0.9% 500 ML 500 ML IV ONE (18:30)
[2020-07-30 19:46] LABS: Hematocrit 24.2 % (30.3-42.9); Hemoglobin 8.2 gm/dl (10.1-14.3)
[2020-07-30] MEDS ORDERED: FAT EMULSIONS 20% 250 ML IV SCH (20:00)
[2020-07-30] MEDS ORDERED: TOTAL PARENTERAL NUTRITION 1,800 ML IV SCH (20:00)
[2020-07-30] MEDS ORDERED: PHOS-NAK POWDER PACKET PO SCH (22:00)
[2020-07-30] MEDS: AMITRIPTYLINE 25 MG TAB PO SCH (22:00)
--- NOTE | 2020-07-31 08:17 | Progress Note ---
Assessment and Plan Assessment and plan: -- Symptomatic anemia Current Visit: Yes Status: Acute Received total 3 units PRBC transfusion Hb improved to 8.2 Symptoms slightly improved, monitor H&H transfuse additional PRBC if needed Treat the underlying cause menorrhagia fibroid uterus . Further evaluation as outpatient per GI --Menorrhagia/leiomyoma; Current Visit: Yes Status: Acute . Management per STRUCTURAL RIGGER Follow pelvic ultrasound --hypophosphatemia; IV K-Phos 30 millimoles stat 1 dose Monitor electrolytes --Hypocalcemia; Current Visit: Yes Status: Acute replenished with calcium gluconate Add oral calcium carbonate --Hypomagnesemia/hypokalemia Current Visit: Yes Status: Chronic Replenished ,resolved, monitor electrolytes --h/o bowel surgery/ short gut syndrome; Current Visit: Yes Status: Chronic IV fluids, patient is on long-term TPN, supportive care --History of lupus / lupus anticoagulant syndrome patient will follow outpatient rheumatology and hematology For further evaluation management --History of right brachial vein DVT in 10/2017 , patient was discharged on Lovenox during last admission Currently not on anticoagulants, continue to hold due to severe vaginal bleeding -- Metabolic acidosis Current Visit: Yes Status: Acute IV fluid resuscitation therapy, supportive care, repeat BMP in a.m. --Volume depletion Current Visit: Yes Status: Acute IV fluid resuscitation therapy, supportive care, monitor urine output every shift. --Severe malnutrition Current Visit: Yes Status: Acute Protein supplementation, encourage increased oral intake, -- DVT prophylaxis Current Visit: No Status: Acute SCD to bilateral lower extremities with in bed, hold anticoagulation due to active vaginal bleeding. We will closely monitor the patient and adjust management as needed Plan of care reviewed with the patient and her nurse. 07/30/2020; transfuse additional 1 unit PRBC today Closely monitor H&H, treat underlying cause of anemia Closely monitor the patient and adjust management as needed 07/31/2020; I spoke with STRUCTURAL RIGGER extensively, since been bleeding is well controlled Recommend outpatient follow-up for possible surgical procedure Today hemoglobin 8.2, monitor overnight, if patient is stable DC a.m. History Interval history: I have seen and examined the patient at the bedside this morning Patient feels better vaginal bleeding significantly improved, very minimal bleeding Patient's hemoglobin improved to 8.2 this morning Complains of generalized weakness Vital signs noted Hospitalist Physical - Constitutional Vitals: Temp Pulse Resp BP Pulse Ox 97.5 F L 61 18 117/74 100 07/31/20 03:50 07/31/20 03:50 07/31/20 03:50 07/31/20 03:50 07/31/20 03:50 General appearance: Present: no acute distress, cachectic, other (Malnourished) - EENT Eyes: Present: PERRL, EOM intact - Neck Neck: Present: supple, normal ROM - Respiratory Respiratory effort: normal Respiratory: bilateral: diminished, negative: rales, rhonchi, wheezing - Cardiovascular Rhythm: regular Heart Sounds: Present: S1 & S2 - Extremities Extremities: no ischemia, No edema - Abdominal General gastrointestinal: soft, non-tender, non-distended, normal bowel sounds - Integumentary Integumentary: Present: clear, warm - Psychiatric Psychiatric: appropriate mood/affect, cooperative - Neurologic Neurologic: moves all extremities Results - Labs CBC & Chem 7: 07/30/20 19:35 07/31/20 07:11 Labs: Laboratory Last Values WBC 6.0 K/mm3 (4.5-11.0) 07/30/20 05:31 RBC 2.07 M/mm3 (3.65-5.03) L 07/30/20 05:31 Hgb 8.2 gm/dl (10.1-14.3) L 07/30/20 19:35 Hct 24.2 % (30.3-42.9) L 07/30/20 19:35 MCV 90 fl (79-97) 07/30/20 05:31 MCH 30 pg (28-32) 07/30/20 05:31 MCHC 34 % (30-34) 07/30/20 05:31 RDW 17.5 % (13.2-15.2) H 07/30/20 05:31 Plt Count 127 K/mm3 (140-440) L 07/30/20 05:31 Lymph % (Auto) 27.9 % (13.4-35.0) 07/30/20 05:31 [place] % (Auto) 5.0 % (0.0-7.3) 07/30/20 05:31 Eos % (Auto) 1.7 % (0.0-4.3) 07/30/20 05:31 Baso % (Auto) 0.7 % (0.0-1.8) 07/30/20 05:31 Lymph # (Auto) 1.7 K/mm3 (1.2-5.4) 07/30/20 05:31 [place] # (Auto) 0.3 K/mm3 (0.0-0.8) 07/30/20 05:31 Eos # (Auto) 0.1 K/mm3 (0.0-0.4) 07/30/20 05:31 Baso # (Auto) 0.0 K/mm3 (0.0-0.1) 07/30/20 05:31 Seg Neutrophils % 64.7 % (40.0-70.0) 07/30/20 05:31 Seg Neutrophils # 3.9 K/mm3 (1.8-7.7) 07/30/20 05:31 Sodium 139 mmol/L (137-145) 07/30/20 05:31 Potassium 4.0 mmol/L (3.6-5.0) D 07/30/20 05:31 Chloride 115.1 mmol/L (98-107) H 07/30/20 05:31 Carbon Dioxide 17 mmol/L (22-30) L 07/30/20 05:31 Anion Gap 11 mmol/L 07/30/20 05:31 BUN 11 mg/dL (7-17) 07/30/20 05:31 Creatinine 0.6 mg/dL (0.6-1.2) 07/30/20 05:31 Estimated GFR > 60 ml/min 07/30/20 05:31 BUN/Creatinine Ratio 18 % 07/30/20 05:31 Glucose 112 mg/dL (65-100) H 07/30/20 05:31 POC Glucose 94 mg/dL (70-105) 07/31/20 00:45 Calcium 6.5 mg/dL (8.4-10.2) L 07/30/20 05:31 Phosphorus 1.80 mg/dL (2.5-4.5) L D 07/30/20 05:31 Magnesium 2.10 mg/dL (1.7-2.3) 07/30/20 05:31 Total Bilirubin 0.50 mg/dL (0.1-1.2) 07/28/20 11:24 AST 60 units/L (5-40) H 07/28/20 11:24 ALT 86 units/L (7-56) H 07/28/20 11:24 Alkaline Phosphatase 69 units/L (35-129) 07/28/20 11:24 Total Protein 5.7 g/dL (6.3-8.2) L 07/28/20 11:24 Albumin 3.1 g/dL (3.9-5) L 07/28/20 11:24 Albumin/Globulin Ratio 1.2 % 07/28/20 11:24 Triglycerides 46 mg/dL (2-149) 07/30/20 05:31 Lipase 20 units/L (13-60) 07/28/20 11:24 HCG, Qual Negative (Negative) 07/28/20 11:24 Urine Color Red (Yellow) 07/28/20 Unknown Urine Turbidity Slightly-cloudy (Clear) 07/28/20 Unknown Urine pH 6.0 (5.0-7.0) 07/28/20 Unknown Ur Specific [place] 1.054 (1.003-1.030) H 07/28/20 Unknown Urine Protein 100 mg/dl mg/dL (Negative) 07/28/20 Unknown Urine Glucose (UA) 50 mg/dL (Negative) 07/28/20 Unknown Urine Ketones Neg mg/dL (Negative) 07/28/20 Unknown Urine Blood Lg (Negative) 07/28/20 Unknown Urine Nitrite Neg (Negative) 07/28/20 Unknown Urine Bilirubin Neg (Negative) 07/28/20 Unknown Urine Urobilinogen < 2.0 mg/dL (<2.0) 07/28/20 Unknown Ur Leukocyte Esterase Tr (Negative) 07/28/20 Unknown Urine WBC (Auto) 120.0 /HPF (0.0-6.0) H 07/28/20 Unknown Urine RBC (Auto) > 182.0 /HPF (0.0-6.0) 07/28/20 Unknown U Epithel Cells (Auto) 6.0 /HPF (0-13.0) 07/28/20 Unknown Blood Type O POSITIVE 07/28/20 13:32 Antibody Screen Negative 07/28/20 13:32 Crossmatch See Detail 07/28/20 13:32 Reddy/IV: Voiding Method External Female Catheter Active Medications - Current Medications Current Medications: Generic Name Dose Route Start Last Admin Trade Name Freq PRN Reason Stop Dose Admin Acetaminophen 650 mg 07/28/20 16:00 07/30/20 11:30 Acetaminophen 325 Mg Tab PO 650 mg Q4H PRN Administration Pain MILD(1-3)/Fever >100.5/BLAIR Albuterol 2.5 mg 07/28/20 16:00 Albuterol 2.5 Mg/3 Ml Nebu IH Q4HRT PRN Shortness Of Breath Amitriptyline HCl 25 mg 07/28/20 22:00 07/30/20 22:00 Amitriptyline 25 Mg Tab PO 25 mg QHS RADHA Administration Amlodipine Besylate 10 mg 07/30/20 10:00 07/30/20 11:30 Amlodipine 10 Mg Tab PO 10 mg DAILY RADHA Administration Carvedilol 12.5 mg 07/29/20 22:00 07/30/20 11:30 Carvedilol 12.5 Mg Tab PO 12.5 mg BID RADHA Administration Amino Acids/Electrolytes/Dextrose 1,800 mls @ 75 mls/hr 07/30/20 20:00 07/30/20 20:00 Tpn Adult IV 07/31/20 19:59 75 mls/hr DAILY@2000 RADHA Administration Protocol Ketorolac Tromethamine 10 mg 07/29/20 21:00 07/30/20 14:47 Ketorolac 10 Mg Tab PO 08/03/20 20:59 10 mg Q8H PRN Administration Pain, Mild (1-3) Methocarbamol 500 mg 07/29/20 10:00 07/30/20 11:30 Methocarbamol 500 Mg Tab PO 500 mg QDAY RADHA Administration Ondansetron HCl 4 mg 07/28/20 16:00 07/29/20 14:25 Ondansetron 4 Mg/2 Ml Inj IV 4 mg Q8H PRN Administration Nausea And Vomiting Sodium Chloride 10 ml 07/28/20 22:00 07/30/20 22:00 Sodium Chloride 0.9% 10 Ml Flush Syringe IV 10 ml BID RADHA Administration Sodium Chloride 10 ml 07/28/20 16:00 Sodium Chloride 0.9% 10 Ml Flush Syringe IV 08/07/20 15:59 PRN PRN LINE FLUSH Nutrition/Malnutrition Assess - Dietary Evaluation Nutrition/Malnutrition Findings: Nutrition Notes Start: 07/29/20 09:46 Freq: Status: Active Protocol: Document 07/30/20 08:02 AKIKO (Rec: 07/30/20 08:07 [id number]) Nutrition Notes Initial or Follow up Reassessment Current Diagnosis Malnutrition Other Pertinent Diagnosis short bowel syndrome, anemia, menorrhagia Current Diet Regular Labs/Tests Phos 1.8 Pertinent Medications Reviewed Height 5 ft 2 in Weight 46 kg [place] Body Weight (kg) 50.00 BMI 18.5 Weight Status Underweight Subjective/Other Information PPN Day 2. Pt continues to bleed. Percent of energy/protein needs met: 35%/100% (PPN only) Burn Absent Trauma Absent GI Symptoms None Current % PO Fair (50-74%) Minimum of two criteria Yes Interpretation of Weight Loss (severe) >2% in 1 week Body Fat Depletion Moderate depletion (severe) Muscle Mass Mild Depletion (non-severe) #1 Nutrition Diagnosis Malnutrition Diagnosis Progress(for reassessment Continues documentation) Is patient on ventilator? No Is Patient Ambulatory and/or Out of Bed Yes REE-([facility]-ambulatory/OOB) [ 1369.225 NUTR.MSJOOB] Kcal/Kg value to use for calculation 34 Approximate Energy Requirements Using 1564 kcal/Kg Calculation Used for Recommendations Kcal/kg Additional Notes Protein: (1.2-1.5g/kg) 54-68g Fluid: 1 ml/kcal or per MD Nutrition Intervention Change Diet Order: Continue Nutrition Support: PPN at 75 ml/hr. Phos 30 mmol Lipds, MVI, Thiamine Kcal 1,056 Protein (gm) 54 Carbohydrates (gm) 100 Fat (gm) 50 Fluid (mL) 2,050 Fiber (gm) 0 Goal #1 Meet needs as best as possible via PPN and PO Anticipated Discharge Needs: Regular with TPN Follow-Up By: 07/31/20 Additional Comments Labs in AM: BMP, Mg, Phos
[2020-07-31 08:21] LABS: Blood Urea Nitrogen 7 mg/dL (7-17); Calcium 6.4 mg/dL (8.4-10.2); Hemolysis Index 10
[2020-07-31 08:24] LABS: BUN/Creatinine Ratio 14
[2020-07-31] MEDS: amLODIPine 10 MG TAB PO SCH (09:47)
[2020-07-31] MEDS: carvediloL 12.5 MG TAB PO SCH ×3 (09:48→21:26)
--- NOTE | 2020-07-31 12:12 | Consultation ---
History of Present Illness Consult date: 07/31/20 Requesting physician: LINH TORRES Reason for consult: menorrhagia History of present illness: Patient states the bleeding is much improved. 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 See admission history and physical for further details) [employer] LEAD[employer] History: fibroids - Obstetrical History : 6 Medications and Allergies Allergies Allergy/AdvReac Type Severity Reaction Status Date / Time oxycodone [From Percocet] Allergy Rash Verified 10/10/17 14:32 Home Medications Medication Instructions Recorded Confirmed Last Taken Type Albuterol Sulfate [Proventil Hfa] 6.7 gm IH Q4H PRN 30 Days 11/08/17 07/29/20 03/25/19 Rx [email or web address].[email or web address] Amitriptyline [Elavil] 25 mg PO QHS 10/21/18 07/29/20 06/28/20 09:00 History Ibuprofen [Motrin 800 MG tab] 800 mg PO Q8HR PRN 10/21/18 07/29/20 03/25/19 History Methocarbamol [Robaxin] 500 mg PO QDAY 03/26/19 07/29/20 06/28/20 09:00 History amLODIPine [Norvasc] 10 mg PO DAILY 03/26/19 07/29/20 06/28/20 09:00 History carvediloL [Coreg] 12.5 mg PO BID 03/26/19 07/29/20 06/28/20 09:00 History Active Meds: Active Medications Acetaminophen (Acetaminophen 325 Mg Tab) 650 mg PO Q4H PRN PRN Reason: Pain MILD(1-3)/Fever >100.5/BLAIR Last Admin: 07/30/20 11:30 Dose: 650 mg Documented by: Albuterol (Albuterol 2.5 Mg/3 Ml Nebu) 2.5 mg IH Q4HRT PRN PRN Reason: Shortness Of Breath Amitriptyline HCl (Amitriptyline 25 Mg Tab) 25 mg PO QHS RADHA Last Admin: 07/30/20 22:00 Dose: 25 mg Documented by: Amlodipine Besylate (Amlodipine 10 Mg Tab) 10 mg PO DAILY [facility] Last Admin: 07/31/20 09:47 Dose: 10 mg Documented by: Carvedilol (Carvedilol 12.5 Mg Tab) 12.5 mg PO BID [facility] Last Admin: 07/31/20 09:48 Dose: 12.5 mg Documented by: Amino Acids/Electrolytes/Dextrose (Tpn Adult) 1,800 mls @ 75 mls/hr IV DAILY@1999 [facility]; Protocol Stop: 07/31/20 19:59 Last Admin: 07/30/20 20:00 Dose: 75 mls/hr Documented by: Amino Acids/Electrolytes/Dextrose (Tpn Adult) 1,800 mls @ 75 mls/hr IV DA VIVIAN@1999 [facility]; Protocol Stop: 08/01/20 19:59 Ketorolac Tromethamine (Ketorolac 10 Mg Tab) 10 mg PO Q8H PRN PRN Reason: Pain, Mild (1-3) Stop: 08/03/20 20:59 Last Admin: 07/30/20 14:47 Dose: 10 mg Documented by: Methocarbamol (Methocarbamol 500 Mg Tab) 500 mg PO QDAY [facility] Last Admin: 07/31/20 09:48 Dose: 500 mg Documented by: Ondansetron HCl (Ondansetron 4 Mg/2 Ml Inj) 4 mg IV Q8H PRN PRN Reason: Nausea And Vomiting Last Admin: 07/29/20 14:25 Dose: 4 mg Documented by: Sodium Chloride (Sodium Chloride 0.9% 10 Ml Flush Syringe) 10 ml IV BID [facility] Last Admin: 07/30/20 22:00 Dose: 10 ml Documented by: Sodium Chloride (Sodium Chloride 0.9% 10 Ml Flush Syringe) 10 ml IV PRN PRN PRN Reason: LINE FLUSH Stop: 08/07/20 15:59 - Vital Signs Vital signs: Vital Signs Temp Pulse Resp BP Pulse Ox 97.5 F L 104 H 20 88/54 100 07/28/20 11:16 07/28/20 11:16 07/28/20 11:16 07/28/20 11:16 07/28/20 11:16 Temp Pulse Resp BP Pulse Ox 97.5 F L 60 18 136/75 100 07/31/20 03:50 07/31/20 09:48 07/31/20 03:50 07/31/20 09:48 07/31/20 03:50 - Physical Exam Abdomen: Positive: soft, other Genitourinary (Female): Positive: normal external genitalia, other (Minimal blood on pad) Results Result Diagrams: 07/30/20 19:35 07/31/20 07:11 Abnormal lab results 07/28/20 07/30/20 07/31/20 Range/Units 13:32 19:35 07:11 Hgb 8.2 L (10.1-14.3) gm/dl Hct 24.2 L (30.3-42.9) % Chloride 111.6 H (98-107) mmol/L Carbon Dioxide 19 L (22-30) mmol/L Creatinine 0.5 L (0.6-1.2) mg/dL Calcium 6.4 L (8.4-10.2) mg/dL Crossmatch See Detail All other labs normal. Ultrasound: report reviewed, image reviewed Assessment and Plan - Patient Problems (1) Fibroids Current Visit: No Status: Acute Qualifiers: Uterine leiomyoma location: intramural and submucous Qualified Code(s): D25.1 - Intramural leiomyoma of uterus; D25.0 - Submucous leiomyoma of uterus Plan to address problem: Ultrasound finding discussed with patient. Ultrasound shows what appears to be an intracavitary mass most likely is submucosal fibroid versus endometrial polyp. Discussed with the patient hysteroscopy. Hysteroscopic procedure would be minimally invasive and would be either preferred procedure due to the most likely cause of her dysfunctional bleeding is a intracavitary mass not her intramural fibroids which appears to be small in size. Patient had greatly increased risks if a intra-abdominal procedure was to be done. Hysteroscopic removal of the myoma or polyp was explained. Initially want to try to do the procedure this we can I the patient is in the hospital but due to the long holiday weekend did personnel for for this procedure is not available in operating room. Patient is stable bleeding is much improved and from medical standpoint will most likely be discharged tomorrow. Gave the patient my office information and I have her phone number. We will try to arrange for the patient be seen in office early next week we will plan soon to try to perform the hysteroscopy later in the week. Patient call if she has any heavy vaginal bleeding after discharge. (2) Dysfunctional uterine bleeding Current Visit: Yes Status: Acute Plan to address problem: Probably secondary to #1. Also probably improved with the stoppage of her anticoagulant. (3) Symptomatic anemia Current Visit: Yes Status: Acute Plan to address problem: Hemoglobin is greater than 8 after transfusions. (4) Severe malnutrition Current Visit: Yes Status: Acute (5) Volume depletion Current Visit: Yes Status: Chronic (6) Occluded PICC line Current Visit: No Status: Acute
[2020-07-31] MEDS: KETOROLAC 10 MG TAB PO PRN ×2 (13:52→21:47)
[2020-07-31 18:39] LABS: Hematocrit 24.7 % (30.3-42.9); Hemoglobin 8.5 gm/dl (10.1-14.3)
[2020-07-31] MEDS ORDERED: TOTAL PARENTERAL NUTRITION 1,800 ML IV SCH (20:00)
[2020-07-31] MEDS: AMITRIPTYLINE 25 MG TAB PO SCH (21:24)
[2020-08-01 05:05] LABS: Blood Urea Nitrogen 7 mg/dL (7-17); Calcium 7.5 mg/dL (8.4-10.2); Hemolysis Index 3
[2020-08-01 05:06] LABS: BUN/Creatinine Ratio 14
[2020-08-01] MEDS: KETOROLAC 10 MG TAB PO PRN ×3 (05:48→18:38)
[2020-08-01] MEDS: amLODIPine 10 MG TAB PO SCH (09:12)
[2020-08-01] MEDS: CALCIUM CARBONATE 500 MG TAB CHEW PO SCH (09:12)
[2020-08-01] MEDS: carvediloL 12.5 MG TAB PO SCH ×2 (09:12→21:46)
[2020-08-01] MEDS ORDERED: ALTEPLASE 2 MG INJ IV SCH (11:25)
[2020-08-01] MEDS ORDERED: WATER FOR INJ Sterile (PF) 10 ML IV ONE (11:45)
[2020-08-01] MEDS ORDERED: KETOROLAC 10 MG TAB PO ONE (12:00)
--- NOTE | 2020-08-01 16:49 | Progress Note ---
Assessment and Plan Assessment and plan: --Malfunction of TPN[Hooper] catheter; Current Visit: Yes Status: Acute Consulted vascular Dr. Crews Continue current management -- Symptomatic anemia/acute blood loss anemia Current Visit: Yes Status: Acute Due to menorrhagia and fibroid uterus ,received total 3 units PRBC Hb improved to 8.5 [employer] following --Menorrhagia/leiomyoma; Current Visit: Yes Status: Acute . Management per [employer] [facility] Follow pelvic ultrasound [employer] advised further evaluation as outpatient Cleared for discharge --hypophosphatemia; IV K-Phos 30 millimoles stat 1 dose Today phosphate is normal level --Hypocalcemia; Current Visit: Yes Status: Acute replenished with calcium gluconate Continue oral calcium carbonate --Hypomagnesemia/hypokalemia Current Visit: Yes Status: Chronic Replenished , today magnesium and potassium normal level --h/o bowel surgery/ short gut syndrome; Current Visit: Yes Status: Chronic IV fluids, continue TPN, supportive care --History of lupus / lupus anticoagulant syndrome patient will follow outpatient rheumatology and hematology For further evaluation management --History of right brachial vein DVT in 10/2017 , patient was discharged on Lovenox during last admission Currently not on anticoagulants, continue to hold due to severe vaginal bleeding -- Metabolic acidosis Current Visit: Yes Status: Acute IV fluid resuscitation therapy, supportive care, repeat BMP in a.m. --Volume depletion Current Visit: Yes Status: Acute IV fluid resuscitation therapy, supportive care, monitor urine output every shift. --Severe malnutrition Current Visit: Yes Status: Acute Protein supplementation, encourage increased oral intake, -- DVT prophylaxis Current Visit: No Status: Acute SCD to bilateral lower extremities with in bed, hold anticoagulation due to active vaginal bleeding. We will closely monitor the patient and adjust management as needed Plan of care reviewed with the patient and her nurse. 07/30/2020; transfuse additional 1 unit PRBC today Closely monitor H&H, treat underlying cause of anemia Closely monitor the patient and adjust management as needed 07/31/2020; I spoke with [employer] REPA[employer] extensively, since been bleeding is well controlled Recommend outpatient follow-up for possible surgical procedure Today hemoglobin 8.2, monitor overnight, if patient is stable DC a.m. 08/01/2020; malfunction of TPN/Hooper catheter, vascular consulted No new episodes of GI bleeding, hemoglobin stable at 8.5, received total 3 units PRBC Continue current management, possible discharge in 1 to 2 days if stable History Interval history: I seen and examined the patient at bedside today Patient's chart and medications reviewed Nurse reports that patient's TPN catheter is leaking Vaginal bleeding significantly improved Patient complains of generalized weakness Vital signs noted Hospitalist Physical - Constitutional Vitals: Temp Pulse Resp BP Pulse Ox 97.9 F 60 18 123/67 100 08/01/20 11:14 08/01/20 11:14 08/01/20 11:14 08/01/20 11:14 08/01/20 11:14 General appearance: Present: no acute distress, cachectic, other (Malnourished) - EENT Eyes: Present: PERRL, EOM intact - Neck Neck: Present: supple, normal ROM - Respiratory Respiratory effort: normal Respiratory: bilateral: diminished, negative: rales, rhonchi, wheezing - Cardiovascular Rhythm: regular Heart Sounds: Present: S1 & S2 - Extremities Extremities: no ischemia, No edema - Abdominal General gastrointestinal: soft, non-tender, non-distended, normal bowel sounds - Integumentary Integumentary: Present: clear, warm - Psychiatric Psychiatric: appropriate mood/affect, cooperative - Neurologic Neurologic: moves all extremities Results - Labs CBC & Chem 7: 07/31/20 18:09 08/01/20 03:49 Labs: Laboratory Last Values WBC 6.0 K/mm3 (4.5-11.0) 07/30/20 05:31 RBC 2.07 M/mm3 (3.65-5.03) L 07/30/20 05:31 Hgb 8.5 gm/dl (10.1-14.3) L 07/31/20 18:09 Hct 24.7 % (30.3-42.9) L 07/31/20 18:09 MCV 90 fl (79-97) 07/30/20 05:31 MCH 30 pg (28-32) 07/30/20 05:31 MCHC 34 % (30-34) 07/30/20 05:31 RDW 17.5 % (13.2-15.2) H 07/30/20 05:31 Plt Count 127 K/mm3 (140-440) L 07/30/20 05:31 Lymph % (Auto) 27.9 % (13.4-35.0) 07/30/20 05:31 [place] % (Auto) 5.0 % (0.0-7.3) 07/30/20 05:31 Eos % (Auto) 1.7 % (0.0-4.3) 07/30/20 05:31 Baso % (Auto) 0.7 % (0.0-1.8) 07/30/20 05:31 Lymph # (Auto) 1.7 K/mm3 (1.2-5.4) 07/30/20 05:31 [place] # (Auto) 0.3 K/mm3 (0.0-0.8) 07/30/20 05:31 Eos # (Auto) 0.1 K/mm3 (0.0-0.4) 07/30/20 05:31 Baso # (Auto) 0.0 K/mm3 (0.0-0.1) 07/30/20 05:31 Seg Neutrophils % 64.7 % (40.0-70.0) 07/30/20 05:31 Seg Neutrophils # 3.9 K/mm3 (1.8-7.7) 07/30/20 05:31 Sodium 139 mmol/L (137-145) 08/01/20 03:49 Potassium 4.4 mmol/L (3.6-5.0) 08/01/20 03:49 Chloride 111.8 mmol/L (98-107) H 08/01/20 03:49 Carbon Dioxide 22 mmol/L (22-30) 08/01/20 03:49 Anion Gap 10 mmol/L 08/01/20 03:49 BUN 7 mg/dL (7-17) 08/01/20 03:49 Creatinine 0.5 mg/dL (0.6-1.2) L 08/01/20 03:49 Estimated GFR > 60 ml/min 08/01/20 03:49 BUN/Creatinine Ratio 14 % 08/01/20 03:49 Glucose 94 mg/dL (65-100) 08/01/20 03:49 POC Glucose 95 mg/dL (70-105) 08/01/20 11:14 Calcium 7.5 mg/dL (8.4-10.2) L D 08/01/20 03:49 Phosphorus 2.60 mg/dL (2.5-4.5) 08/01/20 03:49 Magnesium 1.70 mg/dL (1.7-2.3) 08/01/20 03:49 Total Bilirubin 0.50 mg/dL (0.1-1.2) 07/28/20 11:24 AST 60 units/L (5-40) H 07/28/20 11:24 ALT 86 units/L (7-56) H 07/28/20 11:24 Alkaline Phosphatase 69 units/L (35-129) 07/28/20 11:24 Total Protein 5.7 g/dL (6.3-8.2) L 07/28/20 11:24 Albumin 3.1 g/dL (3.9-5) L 07/28/20 11:24 Albumin/Globulin Ratio 1.2 % 07/28/20 11:24 Triglycerides 46 mg/dL (2-149) 07/30/20 05:31 Lipase 20 units/L (13-60) 07/28/20 11:24 HCG, Qual Negative (Negative) 07/28/20 11:24 Urine Color Red (Yellow) 07/28/20 Unknown Urine Turbidity Slightly-cloudy (Clear) 07/28/20 Unknown Urine pH 6.0 (5.0-7.0) 07/28/20 Unknown Ur Specific [place] 1.054 (1.003-1.030) H 07/28/20 Unknown Urine Protein 100 mg/dl mg/dL (Negative) 07/28/20 Unknown Urine Glucose (UA) 50 mg/dL (Negative) 07/28/20 Unknown Urine Ketones Neg mg/dL (Negative) 07/28/20 Unknown Urine Blood Lg (Negative) 07/28/20 Unknown Urine Nitrite Neg (Negative) 07/28/20 Unknown Urine Bilirubin Neg (Negative) 07/28/20 Unknown Urine Urobilinogen < 2.0 mg/dL (<2.0) 07/28/20 Unknown Ur Leukocyte Esterase Tr (Negative) 07/28/20 Unknown Urine WBC (Auto) 120.0 /HPF (0.0-6.0) H 07/28/20 Unknown Urine RBC (Auto) > 182.0 /HPF (0.0-6.0) 07/28/20 Unknown U Epithel Cells (Auto) 6.0 /HPF (0-13.0) 07/28/20 Unknown Blood Type O POSITIVE 07/28/20 13:32 Antibody Screen Negative 07/28/20 13:32 Crossmatch See Detail 07/28/20 13:32 Reddy/IV: Voiding Method Toilet Active Medications - Current Medications Current Medications: Generic Name Dose Route Start Last Admin Trade Name Freq PRN Reason Stop Dose Admin Acetaminophen 650 mg 07/28/20 16:00 07/30/20 11:30 Acetaminophen 325 Mg Tab PO 650 mg Q4H PRN Administration Pain MILD(1-3)/Fever >100.5/BLAIR Albuterol 2.5 mg 07/28/20 16:00 Albuterol 2.5 Mg/3 Ml Nebu IH Q4HRT PRN Shortness Of Breath Alteplase, Recombinant 2 mg 08/01/20 11:25 Alteplase 2 Mg Inj IV 08/01/20 23:00 ONCE RADHA Amitriptyline HCl 25 mg 07/28/20 22:00 07/31/20 21:24 Amitriptyline 25 Mg Tab PO 25 mg QHS RADHA Administration Amlodipine Besylate 10 mg 07/30/20 10:00 08/01/20 09:12 Amlodipine 10 Mg Tab PO 10 mg DAILY RADHA Administration Calcium Carbonate/Glycine 1,000 mg 08/01/20 10:00 08/01/20 09:12 Calcium Carbonate 500 Mg Tab Chew PO 1,000 mg QDAY RADHA Administration Carvedilol 12.5 mg 07/29/20 22:00 08/01/20 09:12 Carvedilol 12.5 Mg Tab PO 12.5 mg BID RADHA Administration Amino Acids/Electrolytes/Dextrose 1,800 mls @ 75 mls/hr 07/31/20 20:00 07/31/20 21:23 Tpn Adult IV 08/01/20 19:59 75 mls/hr DAILY@1999 [facility] Administration Protocol Amino Acids/Electrolytes/Dextrose 1,800 mls @ 75 mls/hr 08/01/20 20:00 Tpn Adult IV 08/02/20 19:59 DAILY@1999 [facility] Protocol Ketorolac Tromethamine 10 mg 07/29/20 21:00 08/01/20 11:10 Ketorolac 10 Mg Tab PO 08/03/20 20:59 10 mg Q8H PRN Administration Pain, Mild (1-3) Methocarbamol 500 mg 07/29/20 10:00 08/01/20 09:11 Methocarbamol 500 Mg Tab PO 500 mg QDAY RADHA Administration Ondansetron HCl 4 mg 07/28/20 16:00 07/29/20 14:25 Ondansetron 4 Mg/2 Ml Inj IV 4 mg Q8H PRN Administration Nausea And Vomiting Sodium Chloride 10 ml 07/28/20 22:00 08/01/20 09:13 Sodium Chloride 0.9% 10 Ml Flush Syringe IV 10 ml BID RADHA Administration Sodium Chloride 10 ml 07/28/20 16:00 Sodium Chloride 0.9% 10 Ml Flush Syringe IV 08/07/20 15:59 PRN PRN LINE FLUSH Nutrition/Malnutrition Assess - Dietary Evaluation Nutrition/Malnutrition Findings: Nutrition Notes Start: 07/29/20 09:46 Freq: Status: Active Protocol: Document 08/01/20 08:04 LP (Rec: 08/01/20 08:11 LP [id number]) Nutrition Notes Initial or Follow up Reassessment Current Diagnosis Malnutrition Other Pertinent Diagnosis short bowel syndrome, anemia, menorrhagia Current Diet PPN at 75ml/hr + Regular Labs/Tests Reviewed Pertinent Medications Reviewed Height 5 ft 2 in Weight 46.3 kg [place] Body Weight (kg) 50.00 BMI 18.6 Weight Status Underweight Subjective/Other Information PPN day 4. Pt consuming 100% of meals. Percent of energy/protein needs met: 35%/100% (PPN only) Burn Absent Trauma Absent GI Symptoms None Current % PO Fair (50-74%) Minimum of two criteria Yes Interpretation of Weight Loss (severe) >2% in 1 week Body Fat Depletion Moderate depletion (severe) Muscle Mass Mild Depletion (non-severe) #1 Nutrition Diagnosis Malnutrition Diagnosis Progress(for reassessment Continues documentation) Is patient on ventilator? No Is Patient Ambulatory and/or Out of Bed Yes REE-(Randolph-St. Jeor-ambulatory/OOB) [ 1373.125 [id number]] Kcal/Kg value to use for calculation 34 Approximate Energy Requirements Using 1574 kcal/Kg Calculation Used for Recommendations Kcal/kg Additional Notes Protein: (1.2-1.5g/kg) 54-68g Fluid: 1 ml/kcal or per MD Nutrition Intervention Change Diet Order: Continue Nutrition Support: PPN at 75 ml/hr: 43mEq K MVI Kcal 637 Protein (gm) 70 Carbohydrates (gm) 105 Fat (gm) 0 Fluid (mL) 1,800 Fiber (gm) 0 Goal #1 Meet needs as best as possible via PPN and PO Anticipated Discharge Needs: Regular diet with TPN at 75ml/ hr Follow-Up By: 08/02/20 Additional Comments Labs in AM: BMP
[2020-08-01] MEDS: ALUM-MAG HYDROXIDE-SIMETHICONE 200-200-20MG/5ML ORAL LIQD 30 ML PO PRN ×2 (19:20→23:20)
[2020-08-01] MEDS ORDERED: TOTAL PARENTERAL NUTRITION 1,800 ML IV SCH (20:00)
[2020-08-01] MEDS: AMITRIPTYLINE 25 MG TAB PO SCH (21:46)
--- NOTE | 2020-08-01 22:28 | Event Note ---
Date: 08/01/20 Patient to receive Hooper exchange versus new placement tomorrow
[2020-08-02] MEDS: KETOROLAC 10 MG TAB PO PRN ×2 (02:22→15:30)
[2020-08-02 05:54] LABS: Blood Urea Nitrogen 10 mg/dL (7-17); Calcium 7.6 mg/dL (8.4-10.2); Hemolysis Index 4
[2020-08-02 06:15] LABS: BUN/Creatinine Ratio 25
[2020-08-02] MEDS: amLODIPine 10 MG TAB PO SCH (09:57)
[2020-08-02] MEDS: carvediloL 12.5 MG TAB PO SCH (09:58)
[2020-08-02] MEDS: CALCIUM CARBONATE 500 MG TAB CHEW PO SCH (10:10)
[2020-08-02] MEDS ORDERED: MORPHINE 2 MG/1 ML INJ IV SCH (10:30)
[2020-08-02] MEDS ORDERED: SODIUM CHLORIDE 0.9% 250ML 250 ML ONE (11:32)
[2020-08-02] MEDS ORDERED: LIDOCAINE 1%/EPINEPHRINE 1:100,000 VIAL (20 ML) INFILTRATI ONE ×2 (11:32→12:35)
[2020-08-02] MEDS ORDERED: HEPARIN/NS 5000 UNIT/500ML 500 ML IR ONE (11:32)
[2020-08-02] MEDS: fentaNYL 100 MCG/2 ML INJ ONE ×3 (12:21→12:44)
[2020-08-02] MEDS: MIDAZOLAM 2 MG/2 ML INJ ONE ×3 (12:21→12:44)
--- NOTE | 2020-08-02 14:52 | Progress Note ---
Assessment and Plan Assessment and plan: --Malfunction of TPN[Hooper] catheter; Current Visit: Yes Status: Acute Vascular evaluated And replaced the catheter -- Symptomatic anemia/acute blood loss anemia Current Visit: Yes Status: Acute Due to menorrhagia and fibroid uterus ,received total 3 units PRBC Hb improved to 8.5 Outpatient follow-up with REPRODUCTIVE SURGEON. --Menorrhagia/leiomyoma; Current Visit: Yes Status: Acute . Evaluated by REPRODUCTIVE SURGEON, bleeding resolved REPRODUCTIVE SURGEON advised further evaluation as outpatient Cleared for discharge --hypophosphatemia; Resolved --Hypocalcemia; Current Visit: Yes Status: Acute mproved, calcium replacement --Hypomagnesemia/hypokalemia Current Visit: Yes Status: Chronic Resolved --h/o bowel surgery/ short gut syndrome; Current Visit: Yes Status: Chronic IV fluids, continue TPN, supportive care --History of lupus / lupus anticoagulant syndrome patient will follow outpatient rheumatology and hematology For further evaluation management --History of right brachial vein DVT in 10/2017 , patient was discharged on Lovenox during last admission Currently not on anticoagulants, continue to hold due to severe vaginal bleeding -- Metabolic acidosis Current Visit: Yes Status: Acute IV fluid resuscitation therapy, supportive care, repeat BMP in a.m. --Volume depletion Current Visit: Yes Status: Acute IV fluid resuscitation therapy, supportive care, monitor urine output every shift. --Severe malnutrition Current Visit: Yes Status: Acute Protein supplementation, encourage increased oral intake, -- DVT prophylaxis Current Visit: No Status: Acute SCD to bilateral lower extremities with in bed, hold anticoagulation due to active vaginal bleeding. Patient complains of some pain and numbness at site of surgery as well as generalized weakness Will monitor overnight and discharge tomorrow if stable We will closely monitor the patient and adjust management as needed Plan of care reviewed with the patient and her nurse. 07/30/2020; transfuse additional 1 unit PRBC today Closely monitor H&H, treat underlying cause of anemia Closely monitor the patient and adjust management as needed 07/31/2020; I spoke with REPRODUCTIVE SURGEON extensively, since been bleeding is well controlled Recommend outpatient follow-up for possible surgical procedure Today hemoglobin 8.2, monitor overnight, if patient is stable DC a.m. 08/01/2020; malfunction of TPN/Hooper catheter, vascular consulted No new episodes of GI bleeding, hemoglobin stable at 8.5, received total 3 units PRBC Continue current management, possible discharge in 1 to 2 days if stable 08/02/2020; patient's TPN catheter was replaced today Patient complains of some pain and numbness generalized weakness We will monitor overnight and discharged tomorrow if stable History Interval history: Patient had TPN catheters replaced today Tolerated the procedure well Complains of generalized weakness Vital signs noted Hospitalist Physical - Constitutional Vitals: Temp Pulse Resp BP Pulse Ox 98.7 F 53 L 18 118/64 100 08/02/20 05:07 08/02/20 05:07 08/02/20 05:07 08/02/20 05:07 08/02/20 05:07 General appearance: Present: no acute distress, cachectic, other (Malnourished) - EENT Eyes: Present: PERRL, EOM intact - Neck Neck: Present: supple, normal ROM - Respiratory Respiratory effort: normal Respiratory: bilateral: diminished, rales, negative: rhonchi, wheezing - Cardiovascular Rhythm: regular Heart Sounds: Present: S1 & S2 - Extremities Extremities: no ischemia, No edema - Abdominal General gastrointestinal: soft, non-tender, non-distended, normal bowel sounds - Integumentary Integumentary: Present: clear, warm - Psychiatric Psychiatric: appropriate mood/affect, cooperative - Neurologic Neurologic: CNII-XII intact, moves all extremities Results - Labs CBC & Chem 7: 07/31/20 18:09 08/02/20 04:49 Labs: Laboratory Last Values WBC 6.0 K/mm3 (4.5-11.0) 07/30/20 05:31 RBC 2.07 M/mm3 (3.65-5.03) L 07/30/20 05:31 Hgb 8.5 gm/dl (10.1-14.3) L 07/31/20 18:09 Hct 24.7 % (30.3-42.9) L 07/31/20 18:09 MCV 90 fl (79-97) 07/30/20 05:31 MCH 30 pg (28-32) 07/30/20 05:31 MCHC 34 % (30-34) 07/30/20 05:31 RDW 17.5 % (13.2-15.2) H 07/30/20 05:31 Plt Count 127 K/mm3 (140-440) L 07/30/20 05:31 Lymph % (Auto) 27.9 % (13.4-35.0) 07/30/20 05:31 [place] % (Auto) 5.0 % (0.0-7.3) 07/30/20 05:31 Eos % (Auto) 1.7 % (0.0-4.3) 07/30/20 05:31 Baso % (Auto) 0.7 % (0.0-1.8) 07/30/20 05:31 Lymph # (Auto) 1.7 K/mm3 (1.2-5.4) 07/30/20 05:31 [place] # (Auto) 0.3 K/mm3 (0.0-0.8) 07/30/20 05:31 Eos # (Auto) 0.1 K/mm3 (0.0-0.4) 07/30/20 05:31 Baso # (Auto) 0.0 K/mm3 (0.0-0.1) 07/30/20 05:31 Seg Neutrophils % 64.7 % (40.0-70.0) 07/30/20 05:31 Seg Neutrophils # 3.9 K/mm3 (1.8-7.7) 07/30/20 05:31 Sodium 135 mmol/L (137-145) L 08/02/20 04:49 Potassium 5.2 mmol/L (3.6-5.0) H 08/02/20 04:49 Chloride 111.1 mmol/L (98-107) H 08/02/20 04:49 Carbon Dioxide 17 mmol/L (22-30) L 08/02/20 04:49 Anion Gap 12 mmol/L 08/02/20 04:49 BUN 10 mg/dL (7-17) 08/02/20 04:49 Creatinine 0.4 mg/dL (0.6-1.2) L 08/02/20 04:49 Estimated GFR > 60 ml/min 08/02/20 04:49 BUN/Creatinine Ratio 25 % 08/02/20 04:49 Glucose 99 mg/dL (65-100) 08/02/20 04:49 POC Glucose 93 mg/dL (70-105) 08/02/20 05:25 Calcium 7.6 mg/dL (8.4-10.2) L 08/02/20 04:49 Phosphorus 2.60 mg/dL (2.5-4.5) 08/01/20 03:49 Magnesium 1.70 mg/dL (1.7-2.3) 08/01/20 03:49 Total Bilirubin 0.50 mg/dL (0.1-1.2) 07/28/20 11:24 AST 60 units/L (5-40) H 07/28/20 11:24 ALT 86 units/L (7-56) H 07/28/20 11:24 Alkaline Phosphatase 69 units/L (35-129) 07/28/20 11:24 Total Protein 5.7 g/dL (6.3-8.2) L 07/28/20 11:24 Albumin 3.1 g/dL (3.9-5) L 07/28/20 11:24 Albumin/Globulin Ratio 1.2 % 07/28/20 11:24 Triglycerides 46 mg/dL (2-149) 07/30/20 05:31 Lipase 20 units/L (13-60) 07/28/20 11:24 HCG, Qual Negative (Negative) 07/28/20 11:24 Urine Color Red (Yellow) 07/28/20 Unknown Urine Turbidity Slightly-cloudy (Clear) 07/28/20 Unknown Urine pH 6.0 (5.0-7.0) 07/28/20 Unknown Ur Specific [place] 1.054 (1.003-1.030) H 07/28/20 Unknown Urine Protein 100 mg/dl mg/dL (Negative) 07/28/20 Unknown Urine Glucose (UA) 50 mg/dL (Negative) 07/28/20 Unknown Urine Ketones Neg mg/dL (Negative) 07/28/20 Unknown Urine Blood Lg (Negative) 07/28/20 Unknown Urine Nitrite Neg (Negative) 07/28/20 Unknown Urine Bilirubin Neg (Negative) 07/28/20 Unknown Urine Urobilinogen < 2.0 mg/dL (<2.0) 07/28/20 Unknown Ur Leukocyte Esterase Tr (Negative) 07/28/20 Unknown Urine WBC (Auto) 120.0 /HPF (0.0-6.0) H 07/28/20 Unknown Urine RBC (Auto) > 182.0 /HPF (0.0-6.0) 07/28/20 Unknown U Epithel Cells (Auto) 6.0 /HPF (0-13.0) 07/28/20 Unknown Blood Type O POSITIVE 07/28/20 13:32 Antibody Screen Negative 07/28/20 13:32 Crossmatch See Detail 07/28/20 13:32 Reddy/IV: Voiding Method Toilet Active Medications - Current Medications Current Medications: Generic Name Dose Route Start Last Admin Trade Name Freq PRN Reason Stop Dose Admin Acetaminophen 650 mg 07/28/20 16:00 07/30/20 11:30 Acetaminophen 325 Mg Tab PO 650 mg Q4H PRN Administration Pain MILD(1-3)/Fever >100.5/BLAIR Al Hydrox/Mg Hydrox/Simethicone 30 ml 08/01/20 18:54 08/01/20 23:20 Alum-Mag Hydroxide-Simethicone [phone]/5ml Oral Liqd 30 Ml PO 30 ml Q4H PRN Administration Indigestion Albuterol 2.5 mg 07/28/20 16:00 Albuterol 2.5 Mg/3 Ml Nebu IH Q4HRT PRN Shortness Of Breath Amitriptyline HCl 25 mg 07/28/20 22:00 08/01/20 21:46 Amitriptyline 25 Mg Tab PO 25 mg QHS RADHA Administration Amlodipine Besylate 10 mg 07/30/20 10:00 08/02/20 09:57 Amlodipine 10 Mg Tab PO Not Given DAILY RADHA Calcium Carbonate/Glycine 1,000 mg 08/01/20 10:00 08/02/20 10:10 Calcium Carbonate 500 Mg Tab Chew PO Not Given QDAY RADHA Carvedilol 12.5 mg 07/29/20 22:00 08/02/20 09:58 Carvedilol 12.5 Mg Tab PO Not Given BID RADHA Amino Acids/Electrolytes/Dextrose 1,800 mls @ 75 mls/hr 08/01/20 20:00 08/01/20 21:47 Tpn Adult IV 08/02/20 19:59 75 mls/hr DAILY@1999 [facility] Administration Protocol Amino Acids/Electrolytes/Dextrose 1,800 mls @ 75 mls/hr 08/02/20 20:00 Tpn Adult IV 08/03/20 19:59 DAILY@1999 [facility] Protocol Fat Emulsion Intravenous 250 mls @ 21 mls/hr 08/02/20 20:00 Intralipid 20% IV 08/03/20 08:00 DAILY@2000 [facility] Ketorolac Tromethamine 10 mg 07/29/20 21:00 08/02/20 02:22 Ketorolac 10 Mg Tab PO 08/03/20 20:59 10 mg Q8H PRN Administration Pain, Mild (1-3) Methocarbamol 500 mg 07/29/20 10:00 08/02/20 09:58 Methocarbamol 500 Mg Tab PO Not Given QDAY [facility] Ondansetron HCl 4 mg 07/28/20 16:00 07/29/20 14:25 Ondansetron 4 Mg/2 Ml Inj IV 4 mg Q8H PRN Administration Nausea And Vomiting Sodium Chloride 10 ml 07/28/20 22:00 08/02/20 10:28 Sodium Chloride 0.9% 10 Ml Flush Syringe IV 10 ml BID RADHA Administration Sodium Chloride 10 ml 07/28/20 16:00 Sodium Chloride 0.9% 10 Ml Flush Syringe IV 08/07/20 15:59 PRN PRN LINE FLUSH Nutrition/Malnutrition Assess - Dietary Evaluation Nutrition/Malnutrition Findings: Nutrition Notes Start: 07/29/20 09:46 Freq: Status: Active Protocol: Document 08/02/20 08:35 (Rec: 08/02/20 08:39 [id number]) Nutrition Notes Initial or Follow up Reassessment Current Diagnosis Malnutrition Other Pertinent Diagnosis short bowel syndrome, anemia, menorrhagia Current Diet PPN at 75ml/hr + Regular Labs/Tests Na 135 K 5.2 Pertinent Medications Reviewed Height 5 ft 2 in Weight 46 kg [place] Body Weight (kg) 50.00 BMI 18.5 Weight Status Underweight Subjective/Other Information PPN day 5. Pt ate 100% of meals yesterday. Percent of energy/protein needs met: 35%/100% (PPN only) Burn Absent Trauma Absent GI Symptoms None Current % PO Good (75-100%) Minimum of two criteria Yes Interpretation of Weight Loss (severe) >2% in 1 week Body Fat Depletion Moderate depletion (severe) Muscle Mass Mild Depletion (non-severe) #1 Nutrition Diagnosis Malnutrition Diagnosis Progress(for reassessment Continues documentation) Is patient on ventilator? No Is Patient Ambulatory and/or Out of Bed Yes REE-(Gilead-St. Jeor-ambulatory/OOB) [ 1369.225 [id number]] Kcal/Kg value to use for calculation 34 Approximate Energy Requirements Using 1564 kcal/Kg Calculation Used for Recommendations Kcal/kg Additional Notes Protein: (1.2-1.5g/kg) 54-68g Fluid: 1 ml/kcal or per MD Nutrition Intervention Change Diet Order: Continue Nutrition Support: PPN at 75 ml/hr: 0 mEq K 100 mEq Na MVI, Lipids Osmolarity: 827 Kcal 1,137 Protein (gm) 70 Carbohydrates (gm) 105 Fat (gm) 50 Fluid (mL) 2,050 Fiber (gm) 0 Goal #1 Meet needs as best as possible via PPN and PO Anticipated Discharge Needs: Regular diet with TPN at 75ml/ hr Follow-Up By: 08/03/20 Additional Comments Labs in AM: BMP, Mg, Phos
--- NOTE | 2020-08-02 15:15 | Operative Report ---
Operative Report Operative Report: EXAM: 1. Ultrasound-guided puncture of the right internal jugular vein 2. Fluoroscopic-guided removal of the right internal jugular tunneled cuffed existing Hooper catheter 3. Fluoroscopic-guided placement of a right internal jugular tunneled cuffed dual lumen Powerline catheter, de mechelle placement. 4. Venography of the SVC. DATE: 08/02/2020 INDICATION: Patient with malfunctioning Hooper catheter secondary to short gut syndrome with chronic TPN requirements. Existing Hooper catheter has a hole in it and will be removed and a new catheter will be placed. Since alcohol locks have been taken off the market, discussed placement with a dual lumen power line catheter. MEDICATIONS: Please see nursing report for full details. DEVICES: Dual lumen tunneled cuffed powerline catheter. GRINDER LAP: TACO LAWRENCE MD CONTRAST: Less than 10 mL of nonionic contrast; see Lay Out Technician report for full d etails PROCEDURE: The risks, benefits, and alternatives were discussed and informed consent was obtained. The patient was transported to the angiography suite in satisfactory/stable condition and was transported onto the angiography table. The patient's right internal jugular vein was assessed with ultrasound and determined to be patent prior to procedure. The patient was prepped and draped in a sterile fashion. The puncture site was anesthetized. Under sonographic guidance, the right internal jugular vein was punctured with a 21-gauge micropuncture needle and a 0.018 inch wire was advanced into the inferior vena cava. 5 [place] transitional dilator was exchanged with the needle. Digital subtraction angiography was performed through the transitional dilator demonstrating patency of the SVC. After this was performed, the existing Hooper catheter was removed. Site was infiltrated with lidocaine. Hemostat was used to retract the cuff and subsequently the catheter and cuff were removed intact. This was done under fluoroscopic guidance. The 0.018 inch wire of the original needle puncture was then used to [place]ola the catheter intravascular distance to the right atrium. A second longer 0.018 inch wire was advanced into the inferior vena cava. A suitable exit site was identified on the patient's chest inferior and lateral to the venotomy. The site was anesthetized with local anesthetic and the track was anesthetized. Dermatotomy was made. The dual lumen powerline catheter was tunneled between the dermatotomy to the venotomy with the assistance of the tunneler. Over 0.018 inch wire, the transitional dilator was exchanged for a peel-away sheath. The catheter was cut to appropriate size. Wire and introducer were removed. The catheter was advanced through the peel-away sheath under suspended respirations and positioned centrally under fluoroscopic guidance. The peel- away sheath was removed. The venotomy was tiny and therefore Dermabond was then applied without Vicryl suture. 3-0 Ethilon suture was used to secure the catheter at the dermatotomy. The catheter was charged with heparinized saline. Sterile dressing and biopatch applied. The patient was transferred from the angiography suite back to the floor in stable condition. FINDINGS: 1. Excellent flow was obtained through the dual lumen tunneled catheter. 2. The catheter tip is in the right atrium. IMPRESSION: 1. Successful ultrasound and fluoroscopically guided placement of a right internal jugular tunneled cuffed dual-lumen power line catheter, de mechelle placement. 2. Successful fluoroscopically guided removal of a right internal jugular tunneled cuffed Hooper catheter. 3. Successful SVC venography
[2020-08-02 18:30] LABS: Hematocrit 28.8 % (30.3-42.9); Hemoglobin 9.4 gm/dl (10.1-14.3)
[2020-08-02] MEDS ORDERED: TOTAL PARENTERAL NUTRITION 1,800 ML IV SCH (20:00)
[2020-08-02] MEDS ORDERED: FAT EMULSIONS 20% 250 ML IV SCH (20:00)
[2020-08-02] MEDS: AMITRIPTYLINE 25 MG TAB PO SCH (23:34)
[2020-08-03] MEDS: carvediloL 12.5 MG TAB PO SCH ×2 (00:19→11:08)
[2020-08-03] MEDS: KETOROLAC 10 MG TAB PO PRN ×2 (03:21→10:54)
[2020-08-03 06:12] LABS: Blood Urea Nitrogen 11 mg/dL (7-17); Calcium 7.4 mg/dL (8.4-10.2); Hemolysis Index 7
[2020-08-03 06:16] LABS: BUN/Creatinine Ratio 22
--- NOTE | 2020-08-03 09:52 | Discharge Summary ---
Providers - Providers Date of Admission: 07/28/20 15:53 Date of discharge: 08/03/20 Attending physician: LINH TORRES 07/28/20 15:38 Consult to Physician [CONS] Routine Comment: Consulting Provider: ELSA ZENDEJAS Physician Instructions: Reason For Exam: heavy vaginal bleeding with uterine fibroid diseas 07/29/20 00:35 Consult to Dietitian/Nutrition [CONS] Routine Physician Instructions: Reason For Exam: QHS TPN ADMINISTRATION AT HOME Reason for Consult: Write/Manage TPN/PPN 08/01/20 13:03 Consult to Physician [CONS] Routine Comment: Consulting Provider: TACO DURAND Physician Instructions: Reason For Exam: Malfunction TPN catheter[Hooper catheter] Primary care physician: ALISON OLGUIN Hospitalization Reason for admission: Vaginal bleeding/menorrhagia/acute blood loss anemia Condition: Fair Pertinent studies: CT abdomen and pelvis, chest x-ray, abdominal x-ray Procedures: Replacement of Hooper catheter/TPN catheter Hospital course: 47-year-old -[place] female patient with significant past medical history of hypertension brachial vein thrombosis on anticoagulation in the past stopped for many months SLE, short gut syndrome on TPN fibroid uterus was admitted through emergency room with severe vaginal bleeding, patient's initial hemoglobin was 5.8, patient was given total 3 units of PRBC after typing and cross. Patient was also evaluated by BIOPHYSICS PROFESSOR underwent pelvic ultrasound which revealed fibroids Symptomatically managed after multiple transfusions patient's hemoglobin significantly improved to 8.5, BIOPHYSICS PROFESSOR cleared for discharge and follow-up in the office for further evaluation and management of her menorrhagia and fibroids. Patient had malfunction of TPN catheter, evaluated by vascular surgeon and the catheter was replaced, and now it is functional Today patient is comfortable no new complaints vital signs stable vaginal bleeding significantly improved, patient is hemodynamically and clinically stable at discharge Strongly advised to comply with medications and diet, she should notice vaginal bleeding advised her to contact private BIOPHYSICS PROFESSOR or go to emergency room as needed. Patient is hemodynamically and clinically stable at discharge Discharge diagnosis: --Malfunction of TPN[Hooper] catheter;Vascular replaced the catheter -- Symptomatic anemia/acute blood loss anemia:received total 3 units PRBC Hb improved to 8.5 --Menorrhagia/leiomyoma;Evaluated by BIOPHYSICS PROFESSOR, OP follow-up for further eval and management --hypophosphatemia;Resolved --Hypocalcemia; mproved, calcium replacement. --Hypomagnesemia/hypokalemia Resolved --h/o bowel surgery/ short gut syndrome;continue TPN, --History of lupus / lupus anticoagulant syndrome;not on anticoagulants --History of right brachial vein DVT in 10/2017 , not on anticoagulants -- Metabolic acidosis --Volume depletion; improved --Severe malnutritionProtein supplementation -- DVT prophylaxis during the hospital stay, advised increase ambulation on discharge Stable at discharge Disposition: [id number] HOME UNDER [facility] Final Discharge Diagnosis (Prints w/discharge instructions): Malfunctioning Hooper catheter/repeated. Severe malnutrition. Metabolic acidosis. Menorrhagia. Acute blood loss anemia. Fibroid uterus. Short gut syndrome on TPN. History of lupus anticoagulant syndrome. History of right brachial vein DVT 2018. Hypocalcemia Time spent for discharge: 35 min Core Measure Documentation - Palliative Care Palliative Care/ Comfort Measures: Not Applicable - Core Measures Any of the following diagnoses?: none Exam - Constitutional Vitals: Temp Pulse Resp BP Pulse Ox 98.6 F 56 L 18 138/75 100 08/03/20 04:38 08/03/20 04:38 08/03/20 04:38 08/03/20 04:38 08/03/20 04:38 General appearance: Present: no acute distress, well-nourished - EENT Eyes: Present: PERRL, EOM intact, scleral icterus - Neck Neck: Present: supple, normal ROM - Cardiovascular Rhythm: regular Heart Sounds: Present: S1 & S2 - Extremities Extremities: no ischemia, No edema - Abdominal General gastrointestinal: Present: soft, non-tender, non-distended - Integumentary Integumentary: Present: clear, warm - Musculoskeletal Musculoskeletal: strength equal bilaterally - Psychiatric Psychiatric: appropriate mood/affect, cooperative - Neurologic Neurologic: moves all extremities Plan Activity: advance as tolerated, fall precautions Diet: regular, other (TPN per protocol) Additional Instructions: If you have worsening symptoms, worsening vaginal bleeding contact MD or go to emergency room as needed advised to follow-up lab for BIOPHYSICS PROFESSOR Dr. Zendejas per schedule. Advised to follow primary care physician per schedule. Advised to see private insurance verification clerk/wood model maker per schedule. Continue TPN as before Follow up with: PRIMARY CARE, [Referring] - 3-5 Days ELSA ZENDEJAS MD [Staff Physician] - 7 Days Prescriptions: amLODIPine 10 mg PO DAILY #60 tablet carvediloL [Coreg] 12.5 mg PO BID #60 tablet Calcium Carbonate [Tums 500MG CHEW] 1,000 mg PO QDAY #30 tablet
[2020-08-03] MEDS: CALCIUM CARBONATE 500 MG TAB CHEW PO SCH (10:58)
[2020-08-03] MEDS: amLODIPine 10 MG TAB PO SCH (11:07)
[2020-08-03 16:56] VITALS: BP 135/77
[2020-08-03] MEDS ORDERED: TOTAL PARENTERAL NUTRITION 1,800 ML IV SCH (20:00)
== END 2020-08-03 17:38 | disposition home health service (06) | DRG 314 ==
LOC: ED 10:59 → 3A 15:53
PROVIDERS: ADMIT Internal Medicine; ATTEND Internal Medicine
PROC: 30233N1 Transfusion of Nonautologous Red Blood Cells into Peripheral Vein, Percutaneous Approach (ICD-10-PCS; 2020-07-29)
PROC: B518ZZZ Fluoroscopy of Superior Vena Cava (ICD-10-PCS; principal; 2020-08-02)
PROC: B543ZZA Ultrasonography of Right Jugular Veins, Guidance (ICD-10-PCS; 2020-08-02)
PROC: 0JH63XZ Insertion of Tunneled Vascular Access Device into Chest Subcutaneous Tissue and Fascia, Percutaneous Approach (ICD-10-PCS; 2020-08-02)
DX: T82.898A Other specified complication of vascular prosthetic devices, implants and grafts, initial encounter (principal); E43 Unspecified severe protein-calorie malnutrition; E87.2 Acidosis; D62 Acute posthemorrhagic anemia; Z68.1 Body mass index [BMI] 19.9 or less, adult; D25.1 Intramural leiomyoma of uterus; E83.51 Hypocalcemia; E87.6 Hypokalemia; E83.39 Other disorders of phosphorus metabolism; E83.42 Hypomagnesemia; E86.9 Volume depletion, unspecified; N92.0 Excessive and frequent menstruation with regular cycle; I95.9 Hypotension, unspecified; Y83.8 Other surgical procedures as the cause of abnormal reaction of the patient, or of later complication, without mention of misadventure at the time of the procedure; F17.200 Nicotine dependence, unspecified, uncomplicated; I10 Essential (primary) hypertension; Z90.49 Acquired absence of other specified parts of digestive tract; Z79.899 Other long term (current) drug therapy; Z79.891 Long term (current) use of opiate analgesic; Z79.01 Long term (current) use of anticoagulants; Z82.49 Family history of ischemic heart disease and other diseases of the circulatory system; Z88.5 Allergy status to narcotic agent; Z90.721 Acquired absence of ovaries, unilateral; Y92.89 Other specified places as the place of occurrence of the external cause
CPT/HCPCS: 36415; 36558; 36589; 71046; 74019; 74177; 76830; 77001; 80048; 80053; 81001; 82962; 83690; 83735; 84100; 84478; 84703; 85014; 85018; 85025; 86850; 86900; 86901; 86920; 93005; 96365; G0378; C1751; J0610; J1644; J2250; J2270; J2405; J2543; J2997; J3010; J3475; J7030; J7040; J7050; P9016; Q9967

== ENCOUNTER 2020-08-06 09:21 | Day surgery (SDC) | payer MEDICARE ==
--- NOTE | 2020-08-05 16:49 | History and Physical Report ---
History of Present Illness Date of examination: 07/29/20 History of present illness: This is a 45-year-old black female para 2-0-3-2 who was recently hospitalized for menorrhalgia and severe anemia. Patient with a history of regular menses with menses, and approximately q. 3 to 6 months. Patient was admitted with a h emoglobin of 5 received 3 units of packed red blood cells increase her hemoglobin to 8. Her work-up included pelvic ultrasound which revealed a intracavitary mass and additional to her intramural leiomyomata. This the most likely site of her bleeding is from the intracavitary mass and due to the patient's multiple medical problems and history of intestinal surgery with the risks of adjacent organ damage if laparotomy done patient be admitted for hysteroscopic myomectomy and ablation with the hope of treating the patient's menorrhalgia with the least invasive procedure. Please see her recent discharge summary and my recent inpatient consult note. Past History Past Medical History: DVT (Brachial vein thrombosis), hypertension, other (Lupus, short gut syndrome, leiomyomata) Past Surgical History: bowel surgery (Bowel resection due to necrotic intestines), Other (PICC line placement) Social history: single, smoking, full code Family history: hypertension Medications and Allergies Allergies Allergy/AdvReac Type Severity Reaction Status Date / Time oxycodone [From Percocet] Allergy Rash Verified 08/05/20 12:40 Home Medications Medication Instructions Recorded Confirmed Last Taken Type Albuterol Sulfate [Proventil Hfa] 6.7 gm IH Q4H PRN 30 Days 11/08/17 08/05/20 03/25/19 Rx hfa.[email or web address].[email or web address] Amitriptyline [Elavil] 25 mg PO QHS 10/21/18 08/05/20 06/28/20 09:00 History Ibuprofen [Motrin 800 MG tab] 800 mg PO Q8HR PRN 10/21/18 08/05/20 03/25/19 History Methocarbamol [Robaxin] 500 mg PO QDAY 03/26/19 08/05/20 06/28/20 09:00 History amLODIPine 10 mg PO DAILY #60 tablet 08/03/20 08/05/20 Unknown Rx carvediloL [Coreg] 12.5 mg PO BID #60 tablet 08/03/20 08/05/20 Unknown Rx Review of Systems Constitutional: weight loss, fatigue Genitourinary Female: dysmenorrhea, menorrhagia, abnormal vaginal bleeding Menstruation: menses variable, cycle > 35 days, cycle variable, no periods for 6 months, more than 4 weeks between periods Exam - Constitutional General appearance: Present: no acute distress - Respiratory Respiratory effort: normal - Cardiovascular Rhythm: regular - Extremities Extremities: pulses intact, No edema - Abdominal General gastrointestinal: Present: soft, other (Large midline surgical scar) Female genitourinary: Present: normal (External female genitalia) - Integumentary Integumentary: Present: warm, dry - Psychiatric Psychiatric: appropriate mood/affect, cooperative Assessment and Plan - Patient Problems (1) Submucous leiomyoma of uterus Current Visit: No Status: Acute Plan to address problem: Indications for and description of the hysteroscopy given. .Discussed risk of surgery including infection, bleeding and risk of perforating her uterus. Discussed risks and benefits of procedure. Informed endometrial ablation does not treat dymenorrhea or myomas. Patient does not desire future fertility Questions answered. Patient understands and desires to proceed hysteroscopic myomectomy and endometrial ablation (2) Intramural leiomyoma of uterus Current Visit: No Status: Acute (3) Short gut syndrome Current Visit: No Status: Acute (4) HTN (hypertension) Current Visit: No Status: Acute Qualifiers: Hypertension type: essential hypertension Qualified Code(s): I10 - Essential (primary) hypertension (5) Lupus Current Visit: No Status: Acute (6) Menorrhagia Current Visit: No Status: Acute Qualifiers: Menorrhagia type: with irregular cycle Qualified Code(s): N92.1 - Excessive and frequent menstruation with irregular cycle (7) Severe malnutrition Current Visit: No Status: Acute
--- NOTE | 2020-08-06 10:52 | Anesthesia Day of Surgery ---
Anesthesia Day of Surgery - Day of Surgery Patient Examined: Yes Patient H&P Reviewed: Yes Patient is NPO: Yes
--- NOTE | 2020-08-06 10:56 | Anesthesia Consultation ---
Anesthesia Consult and Med Hx Date of service: 08/06/20 - Airway Anesthetic Teeth Evaluation: Partials ROM Head & Neck: Adequate Mental/Hyoid Distance: Adequate Mallampati Class: Class II Intubation Access Assessment: Probably Good - Pre-Operative Health Status ASA Pre-Surgery Classification: ASA3 Proposed Anesthetic Plan: General - Pulmonary Hx Smoking: Yes Hx Respiratory Symptoms: Yes (bronchitis) SOB: Yes (Walking up stairs, fatigues) Hx Sleep Apnea: No - Cardiovascular System Hx Hypertension: Yes (Cardiomyopathy) Hx Cardia Arrhythmia: Yes Hx Heart Murmur: Yes (Pt not sure if she still has murmur) Hx Peripheral Vascular Disease: Yes (Hx RUE DVT. Lupus anticoag d/o) - Central Nervous System Hx Psychiatric Problems: Yes (Anxiety/Depression) - Gastrointestinal Hx Ulcer: Yes (Short gut syndrome; on TPN) - Hematic Hx Anemia: Yes (Was 5.8 and rec'd PRBC) - Other Systems Hx Alcohol Use: Yes (Occas wine) Hx Substance Use: Yes (Occas marijuana) Hx Cancer: No
[2020-08-06 11:00] LABS: Hematocrit 25.9 % (30.3-42.9); Hemoglobin 8.5 gm/dl (10.1-14.3); Mean Corpuscular HGB Conc 33 % (30-34); Mean Corpuscular Volume 93 fl (79-97); Platelet Count 278 K/mm3 (140-440); Red Blood Count 2.79 M/mm3 (3.65-5.03); Red Cell Distribution Width 17.4 % (13.2-15.2)
[2020-08-06] MEDS ORDERED: HYDROmorphone 1 MG/1 ML INJ IV PRN (11:00)
[2020-08-06] MEDS ORDERED: MIDAZOLAM 2 MG/2 ML INJ IV NR (11:00)
[2020-08-06] MEDS ORDERED: LACTATED RINGERS 1,000 ML IV SCH (11:00)
[2020-08-06] MEDS ORDERED: ONDANSETRON 4 MG/2 ML INJ IV PRN (11:00)
[2020-08-06] MEDS ORDERED: SODIUM CHLORIDE 0.9% 1000 ML 1,000 ML IV SCH (11:30)
[2020-08-06] MEDS ORDERED: fentaNYL 100 MCG/2 ML INJ ONE (12:55)
[2020-08-06] MEDS ORDERED: LIDOCAINE MPF (2%) 20 MG/1 ML VIAL 5 ML ONE (12:55)
[2020-08-06] MEDS ORDERED: propofoL 200 MG/20 ML VIAL IV ONE (12:55)
[2020-08-06] MEDS ORDERED: ePHEDrine SULFATE 50 MG/1 ML INJ ONE (14:06)
[2020-08-06] MEDS ORDERED: SODIUM CHLORIDE 0.9% IRRIG SOLN 2000 ML IR ONE (14:45)
[2020-08-06] MEDS: HYDROmorphone 1 MG/1 ML INJ IV PRN ×3 (15:10→15:35)
--- NOTE | 2020-08-06 15:12 | Operative Report ---
Operative Report Operative Report: Date of procedure: August 06, 2020 Pre-operative diagnosis: Menorrhagia with a intracavitary endometrial mass Post-operative diagnosis: Same plus submucosal myoma Procedure name(s): Operative hysteroscopy with MyoSure and NovaSure endometrial ablation Surgeon: Joce Zendejas MD [employer] Specialist: [] Anesthesia: Gen. EBL: Minimal Complications: None Findings: Patient with a intracavitary myoma seen and very thick endometrium also extrinsic compression could be seen from her intramural myomas Specimen(s): Uterine mass Procedure: Patient was brought into the operating room, where general anesthesia was induced without any difficulty. Patient was placed in dorsal lithotomy position. Prep and drape in the usual sterile manner. Timeout procedure was performed. The patient's bladder was emptied with a red rubber catheter. Speculum was placed in the vagina. Tenaculum was placed at 12:00 on the cervix. The cervical os was dilated to a 19 Georgian diameter. The hysteroscope was placed and the findings noted above. The MyoSure device was primed. The device was placed through the cervical os. The mass was then removed using the MyoSure. The mass was completely removed with no evidence of puncture on the uterine wall. All instruments were then removed. Then proceeded with the NovaSure ablation. Speculum was placed in the vagina. The cervical length and uterine cavity was then assessed with a sound. Cervical length was 3.0 cm the total uterine cavity was 7.0 cm. The hysteroscope was then placed through the cervical os. With the findings as noted above. The NovaSure was then placed through the cervical os the uterine width was then measured at the 3.[address] passing the testing for cavity integrity, and NovaSure ablation was then started. The power setting was at 66 W and the procedure lasted 120 seconds. The NovaSure applicator was then removed. There was large amount of tissue on the NovaSure. Post procedure hysteroscopy showed a complete cavity ablation. Our instruments are removed. The patient tolerated the procedure well and was awakened in the operating room. Accompanied to recovery in good condition.
--- NOTE | 2020-08-06 15:16 | Short Stay Summary ---
Short Stay Documentation Date of service: 08/06/20 - History Past Medical History: DVT (Brachial vein thrombosis), hypertension, other (Lupus, short gut syndrome, leiomyomata) Past Surgical History: bowel surgery (Bowel resection due to necrotic intestines), Other (PICC line placement) Social history: single, smoking, full code - Allergies and Medications Current Medications: Allergies oxycodone [From Percocet] Allergy (Verified 08/05/20 12:40) Rash Home Medications Medication Instructions Recorded Confirmed Last Taken Type Albuterol Sulfate [Proventil Hfa] 6.7 gm IH Q4H PRN 30 Days 11/08/17 08/05/20 2 Days Ago Rx [email or web address].[email or web address] ~08/04/20 Amitriptyline [Elavil] 25 mg PO QHS 10/21/18 08/05/20 2 Days Ago History ~08/04/20 Ibuprofen [Motrin 800 MG tab] 800 mg PO Q8HR PRN 10/21/18 08/05/20 2 Days Ago History ~08/04/20 Methocarbamol [Robaxin] 500 mg PO QDAY 03/26/19 08/05/20 2 Days Ago History ~08/04/20 amLODIPine 10 mg PO DAILY #60 tablet 08/03/20 08/05/20 2 Days Ago Rx ~08/04/20 carvediloL [Coreg] 12.5 mg PO BID #60 tablet 08/03/20 08/05/20 2 Days Ago Rx ~08/04/20 DOXYCYCLINE Hyclate [Vibramycin 100 mg PO Q12HR #14 capsule 08/06/20 Unknown Rx CAP] Ibuprofen [Motrin] 800 mg PO TID PRN #30 tablet 08/06/20 Unknown Rx Active Medications Hydromorphone HCl (Hydromorphone 1 Mg/1 Ml Inj) 0.25 mg IV Q10MIN PRN PRN Reason: Pain, Moderate (4-6) Stop: 08/06/20 18:00 Hydromorphone HCl (Hydromorphone 1 Mg/1 Ml Inj) 0.5 mg IV Q10MIN PRN PRN Reason: Pain , Severe (7-10) Stop: 08/06/20 18:00 Sodium Chloride (Nacl 0.9% 1000 Ml) 1,000 mls @ 75 mls/hr IV DIRECT RADHA Last Admin: 08/06/20 10:35 Dose: 75 mls/hr Documented by: Midazolam HCl (Midazolam 2 Mg/2 Ml Inj) 2 mg IV PREOP NR Stop: 08/06/20 23:59 Last Admin: 08/06/20 11:00 Dose: 2 mg Documented by: Ondansetron HCl (Ondansetron 4 Mg/2 Ml Inj) 4 mg IV ONCE PRN PRN Reason: Nausea And Vomiting Stop: 08/06/20 17:00 - Physical exam General appearance: no acute distress HEENT: Atraumatic Lungs: Normal air movement Gastrointestinal: normal Female Genitourinary: normal Rectal Exam: deferred Extremities: pulses intact, No edema - Brief post op/procedure progress note Date of procedure: 08/06/20 (See operative note for details) Condition: stable - Hospital course Hospital course: Patient was admitted underwent the above him procedure without any complications. Patient will be discharged with follow-up in office in 1-2 weeks for postop check. - Disposition Condition at discharge: Good Disposition: [id number] TO HOME OR SELFCARE - Discharge Diagnoses (1) Submucous leiomyoma of uterus Status: Acute (2) Intramural leiomyoma of uterus Status: Acute (3) Short gut syndrome Status: Acute (4) HTN (hypertension) Status: Acute Qualifiers: Hypertension type: essential hypertension Qualified Code(s): I10 - Essential (primary) hypertension (5) Lupus Status: Acute (6) Menorrhagia Status: Acute Qualifiers: Menorrhagia type: with irregular cycle Qualified Code(s): N92.1 - Excessive and frequent menstruation with irregular cycle (7) Severe malnutrition Status: Acute (8) Submucous myoma of uterus Status: Acute Short Stay Discharge Plan Activity: advance as tolerated Diet: other (Continue diet criterion per short gut syndrome) Additional Instructions: Patient to call office for any fever, chills, nausea, vomiting or pain not controlled by pain medication. Follow up with: ALISON OLGUIN III, APRN-BC [Primary Care Provider] - 7 Days Prescriptions: Ibuprofen [Motrin] 800 mg PO TID PRN #30 tablet PRN Reason: Pain DOXYCYCLINE Hyclate [Vibramycin CAP] 100 mg PO Q12HR #14 capsule
[2020-08-06] MEDS ORDERED: hydrALAZINE 20 MG/1 ML INJ ONE (15:49)
[2020-08-06] MEDS ORDERED: hydrALAZINE 20 MG/1 ML INJ IV ONE (15:50)
--- NOTE | 2020-08-06 17:20 | Post Anesthesia Evaluation ---
- Post Anesthesia Evaluation Patient Participated: Yes Airway Patent: Yes Stable Respiratory Function: Yes Nausea/Vomiting: No Temp > 96.8F: Yes Pain Manageable: Yes Adequeate Hydration: Yes Anesthesia Complications: No Block Receding Appropriately: Not Applicable Patient on Ventilator: No
[2020-08-06 18:05] VITALS: BP 141/83
== END 2020-08-06 17:45 | disposition home or self-care (01) ==
LOC: OR 09:21
PROVIDERS: ATTEND Obstetrics & Gynecology
DX: N92.0 Excessive and frequent menstruation with regular cycle (principal); N85.8 Other specified noninflammatory disorders of uterus; F17.210 Nicotine dependence, cigarettes, uncomplicated; I10 Essential (primary) hypertension; M19.90 Unspecified osteoarthritis, unspecified site; F32.9 Major depressive disorder, single episode, unspecified; D64.9 Anemia, unspecified; F41.9 Anxiety disorder, unspecified; Z72.89 Other problems related to lifestyle; Z88.8 Allergy status to other drugs, medicaments and biological substances; Z79.899 Other long term (current) drug therapy; Z86.718 Personal history of other venous thrombosis and embolism; Z98.890 Other specified postprocedural states
CPT/HCPCS: 36415; 58563; 81025; 82962; 85027; 86850; 86900; 86901; 88305; A4217; C1782; J0360; J1170; J1642; J2250; J2704; J3010

== ENCOUNTER 2021-11-22 13:20 | Inpatient (IN) | payer OTHER, MEDICARE ==
[2021-11-22] MEDS ORDERED: ACETAMINOPHEN 500 MG TAB PO ONE (14:12)
--- NOTE | 2021-11-22 14:48 | XRay Report ---
CHEST 2 VIEWS INDICATION / CLINICAL INFORMATION: FEVER. COMPARISON: 07/28/2020 FINDINGS: SUPPORT DEVICES: Right IJ CVL in good position. HEART / MEDIASTINUM: No significant abnormality. LUNGS / PLEURA: No significant pulmonary or pleural abnormality. No pneumothorax. ADDITIONAL FINDINGS: No significant additional findings. IMPRESSION: 1. No acute findings. Signer Name: Bryant Chandler MD Signed: 11/22/2021 2:43 PM Workstation Name: [id number]
[2021-11-22 16:04] LABS: Hematocrit 42.4 % (30.3-42.9); Hemoglobin 13.6 gm/dl (10.1-14.3); Mean Corpuscular HGB Conc 32 % (30-34); Mean Corpuscular Volume 87 fl (79-97); Platelet Count 263 K/mm3 (140-440); Red Blood Count 4.88 M/mm3 (3.65-5.03)
[2021-11-22 16:26] LABS: Alanine Aminotransferase 44 units/L (7-56); Albumin 3.8 g/dL (3.9-5); BUN/Creatinine Ratio 10; Blood Urea Nitrogen 8 mg/dL (7-17); Calcium 8.8 mg/dL (8.4-10.2); Hemolysis Index 9
[2021-11-22] MEDS: ACETAMINOPHEN 500 MG TAB PO ONE ×2 (20:25→23:43)
[2021-11-22] MEDS: SODIUM CHLORIDE 0.9% 1000 ML IV SOLN IV ONE ×2 (21:30→23:43)
--- NOTE | 2021-11-22 21:34 | Emergency Department Report ---
ED Fever HPI - General Chief Complaint: Pain General Stated Complaint: BODY ACHES Time Seen by Provider: 11/22/21 20:59 Exam Limitations: no limitations - History of Present Illness Initial Comments: 46 y/o female with reported past medical history of short gut syndrome secondary to a bowel ischemia issue now requiring a PICC line and TPN therapy reports to ER c/o 1-2 days of myalgia, fever, chills, pain to chest and coryza since recent PICC line draw. Home health evaluated MS. Nicholas and recommend further evaluation to the ED. No cough or congestion. No hemoptysis or wheezing. Timing/Duration: this afternoon Fever Severity/Quality: greater than 102 F Associated Symptoms: chest pain, muscle aches, shortness of breath, weakness. denies: headache, stiff neck, syncope ED Review of Systems ROS: Stated complaint: BODY ACHES Other details as noted in HPI Comment: All other systems reviewed and negative ED Past Medical Hx - Past Medical History Hx Hypertension: Yes (Cardiomyopathy) Hx Congestive Heart Failure: No Hx Diabetes: No Hx Deep Vein Thrombosis: Yes Hx Arthritis: Yes (Hands) Hx Asthma: No Hx COPD: No Hx HIV: No Additional medical history: Bowel perforation due to ischemia. 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 - Surgical History Hx Pacemaker: No Hx Internal Defibrillator: No Additional Surgical History: Right upper arm PICC line placement. Bowel resection - Social History Smoking Status: Current Every Day Smoker - Medications Home Medications: Home Medications Medication Instructions Recorded Confirmed Last Taken Type Albuterol Mdi (or & Nicu Only) 2 puff IH QID PRN #1 11/25/21 Unknown Rx [ProAir HFA Inhaler] Amitriptyline [Elavil] 25 mg PO QHS #30 11/25/21 Unknown Rx Celecoxib [celeBREX] 100 mg PO QDAY #30 cap 11/25/21 Unknown Rx Dicyclomine [Bentyl] 20 mg PO QDAY #30 11/25/21 Unknown Rx Loperamide [Imodium] 2 mg PO PRN PRN #30 cap 11/25/21 Unknown Rx amLODIPine 10 mg PO DAILY #60 tablet 11/25/21 Unknown Rx carvediloL [Coreg] 12.5 mg PO BID #60 tablet 11/25/21 Unknown Rx methOCARBAMOL [Robaxin TAB] 500 mg PO QDAY #30 tablet 11/25/21 Unknown Rx ED Physical Exam - General Limitations: No Limitations General appearance: alert, in no apparent distress - Head Head exam: Present: atraumatic, normocephalic - Eye Eye exam: Present: normal appearance, PERRL Pupils: Present: normal accommodation - ENT ENT exam: Present: mucous membranes moist - Neck Neck exam: Present: normal inspection - Respiratory Respiratory exam: Present: normal lung sounds bilaterally. Absent: respiratory distress - Cardiovascular Cardiovascular Exam: Present: regular rate, normal rhythm. Absent: systolic murmur, diastolic murmur, rubs, gallop - GI/Abdominal GI/Abdominal exam: Present: soft, normal bowel sounds - Extremities Exam Extremities exam: Present: normal inspection - Back Exam Back exam: Present: normal inspection - Neurological Exam Neurological exam: Present: alert, oriented X3 - Psychiatric Psychiatric exam: Present: normal affect, normal mood - Skin Skin exam: Present: warm, dry, intact, normal color. Absent: rash ED Course Vital Signs 11/22/21 11/22/21 11/22/21 13:23 20:20 21:58 Temperature 102.5 F H 99.4 F Pulse Rate 120 H 114 H Respiratory 18 Rate Blood Pressure Blood Pressure 123/75 [Left] O2 Sat by Pulse 99 99 99 Oximetry 11/22/21 11/22/21 11/22/21 22:01 22:15 22:31 Temperature Pulse Rate Respiratory Rate Blood Pressure 119/63 121/72 118/71 Blood Pressure [Left] O2 Sat by Pulse 99 99 100 Oximetry 11/22/21 11/22/21 11/22/21 22:45 23:01 23:15 Temperature Pulse Rate Respiratory Rate Blood Pressure 108/71 93/50 98/51 Blood Pressure [Left] O2 Sat by Pulse 98 99 98 Oximetry 11/22/21 11/22/21 11/22/21 23:31 23:45 23:53 Temperature Pulse Rate Respiratory Rate Blood Pressure 103/59 107/59 107/59 Blood Pressure [Left] O2 Sat by Pulse 99 99 99 Oximetry 11/23/21 11/23/21 11/23/21 00:01 00:15 00:31 Temperature Pulse Rate Respiratory Rate Blood Pressure 106/54 116/62 132/73 Blood Pressure [Left] O2 Sat by Pulse 99 99 100 Oximetry 11/23/21 11/23/21 11/23/21 00:46 01:00 01:15 Temperature Pulse Rate Respiratory Rate Blood Pressure 116/62 128/77 128/77 Blood Pressure [Left] O2 Sat by Pulse 100 99 100 Oximetry 11/23/21 11/23/21 11/23/21 01:30 01:46 02:00 Temperature Pulse Rate Respiratory Rate Blood Pressure 126/81 114/56 104/59 Blood Pressure [Left] O2 Sat by Pulse 99 99 97 Oximetry 11/23/21 11/23/21 11/23/21 02:16 02:30 02:46 Temperature Pulse Rate Respiratory Rate Blood Pressure 119/59 125/71 130/78 Blood Pressure [Left] O2 Sat by Pulse 100 100 100 Oximetry 11/23/21 11/23/21 11/23/21 03:00 03:15 03:30 Temperature Pulse Rate Respiratory Rate Blood Pressure 131/81 131/81 137/71 Blood Pressure [Left] O2 Sat by Pulse 100 100 100 Oximetry 11/23/21 11/23/21 11/23/21 03:46 04:00 04:16 Temperature Pulse Rate Respiratory Rate Blood Pressure 129/66 146/84 139/74 Blood Pressure [Left] O2 Sat by Pulse 100 99 100 Oximetry 11/23/21 11/23/21 11/23/21 04:30 04:46 05:00 Temperature Pulse Rate Respiratory Rate Blood Pressure 136/78 146/84 127/75 Blood Pressure [Left] O2 Sat by Pulse 100 100 100 Oximetry 11/23/21 11/23/21 11/23/21 05:16 05:30 05:46 Temperature Pulse Rate Respiratory Rate Blood Pressure 148/75 128/64 131/68 Blood Pressure [Left] O2 Sat by Pulse 100 100 100 Oximetry 11/23/21 11/23/21 11/23/21 06:00 06:16 06:20 Temperature Pulse Rate Respiratory Rate Blood Pressure 129/87 116/86 116/86 Blood Pressure [Left] O2 Sat by Pulse 99 100 100 Oximetry 11/23/21 09:08 Temperature 98.3 F Pulse Rate 64 Respiratory 15 Rate Blood Pressure Blood Pressure 113/71 [Left] O2 Sat by Pulse 98 Oximetry ED Medical Decision Making - Lab Data Result diagrams: 11/25/21 09:40 11/25/21 09:40 Lab Results 11/22/21 11/22/2111/22/22 Range/Units 15:34 15:34 20:47 WBC 6.7 (4.5-11.0) K/mm3 RBC 4.88 (3.65-5.03) M/mm3 Hgb 13.6 (10.1-14.3) gm/dl Hct 42.4 (30.3-42.9) % MCV 87 (79-97) fl MCH 28 (28-32) pg MCHC 32 (30-34) % RDW 16.0 H (13.2-15.2) % Plt Count 263 (140-440) K/mm3 Sodium 144 (137-145) mmol/L Potassium 3.5 L (3.6-5.0) mmol/L Chloride 111.2 H (98-107) mmol/L Carbon Dioxide 20 L (22-30) mmol/L Anion Gap 16 mmol/L BUN 8 (7-17) mg/dL Creatinine 0.8 (0.6-1.2) mg/dL Estimated GFR > 60 ml/min BUN/Creatinine Ratio 10 % Glucose 84 (65-100) mg/dL Lactic Acid (0.7-2.0) mmol/L Calcium 8.8 (8.4-10.2) mg/dL Total Bilirubin 0.40 (0.1-1.2) mg/dL AST 52 H (5-40) units/L ALT 44 (7-56) units/L Alkaline Phosphatase 109 (35-129) units/L Troponin T (0.00-0.029) ng/mL Total Protein 6.5 (6.3-8.2) g/dL Albumin 3.8 L (3.9-5) g/dL Albumin/Globulin Ratio 1.4 % Urine Color Yellow (Yellow) Urine Turbidity Clear (Clear) Specific Peerless (Man) 1.015 (1.003-1.030) Ur Protein (Man) 2+ (Negative) mg/dL Ur Ketones (Man) Negative (Negative) Ur Nitrite (Man) Negative (Negative) Urine Bilirubin (Man) Negative (Negative) Leukocyte Esterase (Man) Negative (Negative) Urine WBC (Auto) 1.0 (0.0-6.0) /HPF Urine RBC (Auto) 2.0 (0.0-6.0) /HPF U Epithel Cells (Auto) 1.0 (0-13.0) /HPF Urine RBC (Manual) 2+ (Negative) Hyaline Casts 1 /LPF Urine Mucus Few /HPF Urine HCG, Qual Negative (Negative) 11/22/21 11/22/21 11/22/21 Range/Units 21:35 22:02 22:59 WBC (4.5-11.0) K/mm3 RBC (3.65-5.03) M/mm3 Hgb (10.1-14.3) gm/dl Hct (30.3-42.9) % MCV (79-97) fl MCH (28-32) pg MCHC (30-34) % RDW (13.2-15.2) % Plt Count (140-440) K/mm3 Sodium (137-145) mmol/L Potassium (3.6-5.0) mmol/L Chloride (98-107) mmol/L Carbon Dioxide (22-30) mmol/L Anion Gap mmol/L BUN (7-17) mg/dL Creatinine (0.6-1.2) mg/dL Estimated GFR ml/min BUN/Creatinine Ratio % Glucose (65-100) mg/dL Lactic Acid 2.30 H* 1.90 (0.7-2.0) mmol/L Calcium (8.4-10.2) mg/dL Total Bilirubin (0.1-1.2) mg/dL AST (5-40) units/L ALT (7-56) units/L Alkaline Phosphatase (35-129) units/L Troponin T < 0.010 (0.00-0.029) ng/mL Total Protein (6.3-8.2) g/dL Albumin (3.9-5) g/dL Albumin/Globulin Ratio % Urine Color (Yellow) Urine Turbidity (Clear) Specific Peerless (Man) (1.003-1.030) Ur Protein (Man) (Negative) mg/dL Ur Ketones (Man) (Negative) Ur Nitrite (Man) (Negative) Urine Bilirubin (Man) (Negative) Leukocyte Esterase (Man) (Negative) Urine WBC (Auto) (0.0-6.0) /HPF Urine RBC (Auto) (0.0-6.0) /HPF U Epithel Cells (Auto) (0-13.0) /HPF Urine RBC (Manual) (Negative) Hyaline Casts /LPF Urine Mucus /HPF Urine HCG, Qual (Negative) - Radiology Data Radiology results: report reviewed [facility] [address] [place] [address] XRay Report Signed Patient: KALIE NICHOLAS MR#: [id number] : 1975 Acct:[id number] Age/Sex: 46 / F ADM Date: 11/22/21 Loc: ED Attending Dr: Ordering Physician: SHERI DUMONT Date of Service: 11/22/21 Procedure(s): XR chest routine 2V Accession Number(s): [id number] cc: SHERI DUMONT Fluoro Time In Minutes: CHEST 2 VIEWS INDICATION / CLINICAL INFORMATION: FEVER. COMPARISON: 07/28/2020 FINDINGS: SUPPORT DEVICES: Right IJ CVL in good position. HEART / MEDIASTINUM: No significant abnormality. LUNGS / PLEURA: No significant pulmonary or pleural abnormality. No pneumothorax. ADDITIONAL FINDINGS: No significant additional findings. IMPRESSION: 1. No acute findings. Signer Name: Bryant Chandler MD Signed: 11/22/2021 2:43 PM Workstation Name: [id number] Transcribed By: FANTA Dictated By: Bryant Chandler MD Electronically Authenticated By: Bryant Chandler MD Signed Date/Time: 11/22/211442 DD/ 42 Critical care attestation.: If time is entered above; I have spent that time in minutes in the direct care of this critically ill patient, excluding procedure time. ED Disposition Clinical Impression: Fever, Sepsis Disposition: ADMITTED INPATIENT Is pt being admited?: Yes Does the pt Need Aspirin: No Condition: Stable
[2021-11-22 21:35] LABS: Color,Urine Yellow (Yellow)
[2021-11-22 21:37] LABS: Hyaline Casts,Urine 1 /LPF; Mucus,Urine FEW /HPF
[2021-11-22 21:40] LABS: HCG Qualitative,Urine Negative (Negative)
[2021-11-22] MEDS ORDERED: CEFEPIME/NS 2 GM/100 ML 2 GM/100 ML BAG IV ONE (23:54)
[2021-11-23] MEDS ORDERED: ONDANSETRON 4 MG/2 ML INJ IV PRN (04:49)
[2021-11-23] MEDS ORDERED: MORPHINE 4 MG/1 ML INJ IV PRN (04:49)
[2021-11-23] MEDS ORDERED: ALBUTEROL 2.5 MG/3 ML NEBU IH PRN (04:49)
[2021-11-23] MEDS ORDERED: ACETAMINOPHEN 325 MG TAB PO PRN (04:49)
--- NOTE | 2021-11-23 04:58 | History and Physical Report ---
History of Present Illness Date of examination: 11/23/21 Date of admission: 11/23/21 Chief complaint: Fever Body ache History of present illness: This is a 46 years old female with history of arthritis, bowel perforation due to ischemia, short gut syndrome, PICC line in the right upper arm was brought to the hospital because of body ache complain of generalized pain and fever greater than 102. Patient was seen and evaluated by home health after that patient deve loped feverish, muscle ache and body ache subsequently patient is brought to the emergency room in the emergency room patient is found to have lactic acid of 2.30. We will going to admit the patient we will put the patient on IV fluid, antibiotic. We will evaluate whether we will remove the right upper arm PICC line. Past History Past Medical History: arthritis, DVT, other ( Bowel perforation due to ischemia. 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 Bowel resection) Social history: smoking Family history: hypertension Medications and Allergies Allergies Allergy/AdvReac Type Severity Reaction Status Date / Time oxycodone [From Percocet] Allergy Rash Verified 11/22/21 13:25 Home Medications Medication Instructions Recorded Confirmed Last Taken Type Albuterol Sulfate [Proventil Hfa] 6.7 gm IH Q4H PRN 30 Days 11/08/17 08/05/20 2 Days Ago Rx [email or web address] ~08/04/20 Amitriptyline [Elavil] 25 mg PO QHS 10/21/18 08/05/20 2 Days Ago History ~08/04/20 Ibuprofen [Motrin 800 MG tab] 800 mg PO Q8HR PRN 10/21/18 08/05/20 2 Days Ago History ~08/04/20 Methocarbamol [Robaxin] 500 mg PO QDAY 03/26/19 08/05/20 2 Days Ago History ~08/04/20 amLODIPine 10 mg PO DAILY #60 tablet 08/03/20 08/05/20 2 Days Ago Rx ~08/04/20 carvediloL [Coreg] 12.5 mg PO BID #60 tablet 08/03/20 08/05/20 2 Days Ago Rx ~08/04/20 DOXYCYCLINE Hyclate [Vibramycin 100 mg PO Q12HR #14 capsule 08/06/20 Unknown Rx CAP] Ibuprofen [Motrin] 800 mg PO TID PRN #30 tablet 08/06/20 Unknown Rx Active Meds: Active Medications Acetaminophen (Acetaminophen 325 Mg Tab) 650 mg PO Q4H PRN PRN Reason: Pain MILD(1-3)/Fever >100.5/BLAIR Albuterol (Albuterol 2.5 Mg/3 Ml Nebu) 2.5 mg IH Q3HRT PRN PRN Reason: Shortness Of Breath Albuterol/Ipratropium (Ipratropium/Albuterol Sulfate 3 Ml Ampul.Neb) 1 ampul IH Q6HRT RADHA Amitriptyline HCl (Amitriptyline 25 Mg Tab) 25 mg PO QHS [facility] Amlodipine Besylate (Amlodipine 10 Mg Tab) 10 mg PO DAILY [facility] Carvedilol (Carvedilol 12.5 Mg Tab) 12.5 mg PO BID [facility] Heparin Sodium (Porcine) (Heparin 5,000 Unit/1 Ml Vial) 5,000 unit SUB-Q Q12HR [facility] Sodium Chloride (Nacl 0.45% 1000 Ml) 1,000 mls @ 100 mls/hr IV DIRECT RADHA Ceftriaxone Sodium (Rocephin/Ns 2 Gm/100 Ml) 2 gm in 100 mls @ 200 mls/hr IV Q24H RADHA; Protocol Methocarbamol (Methocarbamol 500 Mg Tab) 500 mg PO QDAY [facility] Morphine Sulfate (Morphine 2 Mg/1 Ml Inj) 2 mg IV Q4H PRN PRN Reason: Pain, Moderate (4-6) Morphine Sulfate (Morphine 4 Mg/1 Ml Inj) 4 mg IV Q4H PRN PRN Reason: Pain , Severe (7-10) Ondansetron HCl (Ondansetron 4 Mg/2 Ml Inj) 4 mg IV Q8H PRN PRN Reason: Nausea And Vomiting Sodium Chloride (Sodium Chloride 0.9% 10 Ml Flush Syringe) 10 ml IV BID [facility] Sodium Chloride (Sodium Chloride 0.9% 10 Ml Flush Syringe) 10 ml IV PRN PRN PRN Reason: LINE FLUSH Review of Systems All systems: negative Constitutional: fever, malaise, other (Body ache muscle ache) Exam - Constitutional Vitals: Temp Pulse Resp BP Pulse Ox 99.4 F 114 H 18 107/59 99 11/22/21 20:20 11/22/21 20:20 11/22/21 20:20 11/22/21 23:45 11/22/21 23:45 General appearance: Present: no acute distress, well-nourished - EENT Eyes: Present: PERRL ENT: hearing intact, clear oral mucosa - Neck Neck: Present: supple, normal ROM - Respiratory Respiratory effort: normal Respiratory: bilateral: CTA - Cardiovascular Heart Sounds: Present: S1 & S2. Absent: rub, click - Extremities Extremities: pulses symmetrical, No edema Peripheral Pulses: within normal limits - Abdominal General gastrointestinal: Present: soft, non-tender, non-distended, normal bowel sounds Female genitourinary: Present: normal - Integumentary Integumentary: Present: clear, warm, dry - Musculoskeletal Musculoskeletal: gait normal, strength equal bilaterally - Psychiatric Psychiatric: appropriate mood/affect, intact judgment & insight - Neurologic Neurologic: CNII-XII intact, moves all extremities HEART Score - HEART Score Troponin: Troponin T < 0.010 ng/mL (0.00-0.029) 11/22/21 22:02 Results - Labs CBC & Chem 7: 11/22/21 15:34 11/22/21 15:34 Labs: Laboratory Last Values WBC 6.7 K/mm3 (4.5-11.0) 11/22/21 15:34 RBC 4.88 M/mm3 (3.65-5.03) 11/22/21 15:34 Hgb 13.6 gm/dl (10.1-14.3) 11/22/21 15:34 Hct 42.4 % (30.3-42.9) 11/22/21 15:34 MCV 87 fl (79-97) 11/22/21 15:34 MCH 28 pg (28-32) 11/22/21 15:34 MCHC 32 % (30-34) 11/22/21 15:34 RDW 16.0 % (13.2-15.2) H 11/22/21 15:34 Plt Count 263 K/mm3 (140-440) 11/22/21 15:34 Sodium 144 mmol/L (137-145) 11/22/21 15:34 Potassium 3.5 mmol/L (3.6-5.0) L 11/22/21 15:34 Chloride 111.2 mmol/L (98-107) H 11/22/21 15:34 Carbon Dioxide 20 mmol/L (22-30) L 11/22/21 15:34 Anion Gap 16 mmol/L 11/22/21 15:34 BUN 8 mg/dL (7-17) 11/22/21 15:34 Creatinine 0.8 mg/dL (0.6-1.2) 11/22/21 15:34 Estimated GFR > 60 ml/min 11/22/21 15:34 BUN/Creatinine Ratio 10 % 11/22/21 15:34 Glucose 84 mg/dL (65-100) 11/22/21 15:34 Lactic Acid 1.90 mmol/L (0.7-2.0) 11/22/21 22:59 Calcium 8.8 mg/dL (8.4-10.2) 11/22/21 15:34 Total Bilirubin 0.40 mg/dL (0.1-1.2) 11/22/21 15:34 AST 52 units/L (5-40) H 11/22/21 15:34 ALT 44 units/L (7-56) 11/22/21 15:34 Alkaline Phosphatase 109 units/L (35-129) 11/22/21 15:34 Troponin T < 0.010 ng/mL (0.00-0.029) 11/22/21 22:02 Total Protein 6.5 g/dL (6.3-8.2) 11/22/21 15:34 Albumin 3.8 g/dL (3.9-5) L 11/22/21 15:34 Albumin/Globulin Ratio 1.4 % 11/22/21 15:34 Urine Color Yellow (Yellow) 11/22/21 20:47 Urine Turbidity Clear (Clear) 11/22/21 20:47 Specific [place] (Man) 1.015 (1.003-1.030) 11/22/21 20:47 Ur Protein (Man) 2+ mg/dL (Negative) 11/22/21 20:47 Ur Ketones (Man) Negative (Negative) 11/22/21 20:47 Ur Nitrite (Man) Negative (Negative) 11/22/21 20:47 Urine Bilirubin (Man) Negative (Negative) 11/22/21 20:47 Leukocyte Esterase (Man) Negative (Negative) 11/22/21 20:47 Urine WBC (Auto) 1.0 /HPF (0.0-6.0) 11/22/21 20:47 Urine RBC (Auto) 2.0 /HPF (0.0-6.0) 11/22/21 20:47 U Epithel Cells (Auto) 1.0 /HPF (0-13.0) 11/22/21 20:47 Urine RBC (Manual) 2+ (Negative) 11/22/21 20:47 Hyaline Casts 1 /LPF 11/22/21 20:47 Urine Mucus Few /HPF 11/22/21 20:47 Urine HCG, Qual Negative (Negative) 11/22/21 20:47 Microbiology: Microbiology 11/22/21 21:35 Peripheral/Venous Blood Culture - Preliminary Culture in Progress 11/22/21 21:35 Peripheral/Venous Blood Culture - Preliminary Culture in Progress - Imaging and Cardiology Chest x-ray: report reviewed Assessment and Plan VTE prophylaxis?: Chemical Plan of care discussed with patient/family: Yes - Patient Problems (1) Fever Current Visit: Yes Status: Acute Plan to address problem: Admit the patient to the medical floor. Cardiac diet. Normal saline at the rate of 100 cc/h Rocephin 2 g IV daily with. We will do the blood culture and urine culture. We will remove the PICC line in the right arm. Recheck CBC in the morning (2) SIRS (systemic inflammatory response syndrome) Current Visit: Yes Status: Acute Plan to address problem: Normal saline at the rate of 100 cc/h Rocephin 2 g IV daily with. We will do the blood culture and urine culture. We will remove the PICC line in the right arm. Recheck CBC in the morning (3) PICC line infection Current Visit: No Status: Acute Plan to address problem: Normal saline at the rate of 100 cc/h Rocephin 2 g IV daily with. We will do the blood culture and urine culture. We will remove the PICC line in the right arm. Recheck CBC in the morning (4) DVT prophylaxis Current Visit: No Status: Acute Plan to address problem: Heparin 5000 units subcu every 12 hours for DVT prophylaxis. Pepcid 20 mg p.o. twice daily for GI prophylaxis. Patient is a full code
[2021-11-23] MEDS: IPRATROPIUM/ALBUTEROL SULFATE 3 ML AMPUL.NEB IH SCH ×3 (07:53→20:08)
--- NOTE | 2021-11-23 09:33 | Electrocardiograph Report ---
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
--- NOTE | 2021-11-23 10:22 | Event Note ---
Date: 11/23/21 Patient seen at bedside. She has a history of short gut syndrome with [facility] catheter for TPN feeds who presented for diffuse body aches. T-max of 102.5. We will treat for presumed sepsis. Blood cultures and urinalysis collected. Patient reports arthritis in right shoulder and currently having bilateral shoulder pain. Coronavirus PCR negative. Patient reports being worked up for lupus and comes to the hospital whenever she is having severe pain. She currently does not take any pain medications.
[2021-11-23] MEDS: carvediloL 12.5 MG TAB PO SCH ×2 (12:15→21:37)
[2021-11-23] MEDS: MORPHINE 2 MG/1 ML INJ IV PRN ×2 (12:16→21:36)
[2021-11-23] MEDS: amLODIPine 10 MG TAB PO SCH (12:16)
[2021-11-23] MEDS: HEPARIN 5,000 UNIT/1 ML VIAL SUB-Q SCH ×2 (12:17→21:40)
[2021-11-23] MEDS: SODIUM CHLORIDE 0.45% 1000 ML 1,000 ML IV SCH ×2 (12:18→21:39)
[2021-11-23] MEDS: cefTRIAXone/NS 2 GM/100 ML 2 GM/100 ML BAG IV SCH (13:08)
[2021-11-23] MEDS ORDERED: AMINO ACIDS 4.25%/DEXTROSE 10% 2,000 ML IV SCH (20:00)
[2021-11-23] MEDS: AMITRIPTYLINE 25 MG TAB PO SCH (21:37)
[2021-11-24 06:37] LABS: Basophils % (Auto) 0.6 % (0.0-1.8); Eosinophils # (Auto) 0.2 K/mm3 (0.0-0.4); Eosinophils % (Auto) 2.7 % (0.0-4.3); Hematocrit 28.4 % (30.3-42.9); Hemoglobin 9.2 gm/dl (10.1-14.3); Lymphocytes # (Auto) 1.1 K/mm3 (1.2-5.4); Lymphocytes % (Auto) 14.9 % (13.4-35.0); Mean Corpuscular HGB Conc 32 % (30-34); Mean Corpuscular Volume 86 fl (79-97); Monocytes # (Auto) 0.3 K/mm3 (0.0-0.8); Monocytes % (Auto) 4.5 % (0.0-7.3); Platelet Count 183 K/mm3 (140-440); Red Blood Count 3.32 M/mm3 (3.65-5.03); Red Cell Distribution Width 16.5 % (13.2-15.2)
[2021-11-24] MEDS: MORPHINE 2 MG/1 ML INJ IV PRN ×2 (06:41→21:54)
[2021-11-24] MEDS: SODIUM CHLORIDE 0.45% 1000 ML 1,000 ML IV SCH ×3 (06:48→17:32)
[2021-11-24 06:51] LABS: Blood Urea Nitrogen 9 mg/dL (7-17); Calcium 6.7 mg/dL (8.4-10.2); Hemolysis Index 4
[2021-11-24 06:59] LABS: BUN/Creatinine Ratio 15
--- NOTE | 2021-11-24 07:46 | Progress Note ---
Assessment and Plan Assessment and plan: -- Febrile illness; T-max 102.5 on admission , COVID-19 negative antipyretics, IV fluids, Empiric antibiotics Follow up blood and urine cultures --SIRS (systemic inflammatory response syndrome) Normal saline at the rate of 100 cc/h Rocephin 2 g IV daily with. Follow cultures --Lactic acidosis; Trend lactic levels Continue empiric antibiotics, IV fluids Follow cultures --Hypokalemia; Replenished with oral KCl Monitor electrolytes -- Hypomagnesemia; Replenished with magnesium IV and oral Monitor electrolytes --Hypocalcemia; Replenished with calcium supplements Monitor electrolytes Pharmacy to adjust electrolytes in TPN --Left shoulder pain Pain medications, x-ray shoulder Consider PT if needed -Hypertension; moderate control resume home antihypertensives -- Short gut syndrome ; on long-term TPN, Continue supportive care --History of lupus; stable --Anterior chest wall port functional[patient does not have PICC line] Change the dressing of the port site, send cultures if there is any wound Continue TPN -- DVT prophylaxis Heparin 5000 units subcu every 12 hours for DVT prophylaxis. Pepcid 20 mg p.o. twice daily for GI prophylaxis. Patient is a full code Advance care planning +30 minutes I discussed with patient her condition, I discussed the patient tests and reports, I discussed with the patient the treatment plan, I discussed about the pending cultures Multiple electrolyte imbalances and the steps taken to correct them Patient has some questions , answered all of them , she verbalized understanding Preventive health care counseling; +30 minutes Strongly advised to comply with medications, diet, follow-up visits Also advised to keep the area around the port clean and dry to avoid infection Advised to continue oral diet as tolerated and PT TPN as needed She verbalized understanding Closely monitor the patient and adjust management as needed Plan of care reviewed with the patient and her nurse 11/24; follow cultures, follow-up shoulder x-ray report Port site cultures if there is infection History Interval history: I have seen and examined the patient at the bedside Patient's chart and medications reviewed. Patient complains of left shoulder pain That PICC line is functional receiving TPN Denies nausea vomiting Vital signs reviewed Hospitalist Physical - Constitutional Vitals: Temp Pulse Resp BP Pulse Ox 98.3 F 61 16 161/74 99 11/24/21 04:19 11/24/21 04:11/24/21 04:19 11/24/21 04:19 11/24/21 04:19 General appearance: Present: no acute distress, well-nourished - EENT Eyes: Present: PERRL, EOM intact - Neck Neck: Present: supple, normal ROM - Respiratory Respiratory effort: normal Respiratory: bilateral: diminished, negative: rales, rhonchi, wheezing - Cardiovascular Rhythm: regular Heart Sounds: Present: S1 & S2 - Extremities Extremities: no ischemia, No edema, abnormal (Left shoulder stiffness and tenderness on movement) - Abdominal General gastrointestinal: soft, non-tender, non-distended, normal bowel sounds - Integumentary Integumentary: Present: clear, warm - Psychiatric Psychiatric: appropriate mood/affect, cooperative - Neurologic Neurologic: CNII-XII intact, other HEART Score - HEART Score Troponin: Troponin T < 0.010 ng/mL (0.00-0.029) 11/22/21 22:02 Results - Labs CBC & Chem 7: 11/24/21 06:18 11/24/21 06:18 Labs: Laboratory Last Values WBC 7.3 K/mm3 (4.5-11.0) 11/24/21 06:18 RBC 3.32 M/mm3 (3.65-5.03) L 11/24/21 06:18 Hgb 9.2 gm/dl (10.1-14.3) L D 11/24/21 06:18 Hct 28.4 % (30.3-42.9) L D 11/24/21 06:18 MCV 86 fl (79-97) 11/24/21 06:18 MCH 28 pg (28-32) 11/24/21 06:18 MCHC 32 % (30-34) 11/24/21 06:18 RDW 16.5 % (13.2-15.2) H 11/24/21 06:18 Plt Count 183 K/mm3 (140-440) 11/24/21 06:18 Lymph % (Auto) 14.9 % (13.4-35.0) 11/24/21 06:18 [place] % (Auto) 4.5 % (0.0-7.3) 11/24/21 06:18 Eos % (Auto) 2.7 % (0.0-4.3) 11/24/21 06:18 Baso % (Auto) 0.6 % (0.0-1.8) 11/24/21 06:18 Lymph # (Auto) 1.1 K/mm3 (1.2-5.4) L 11/24/21 06:18 [place] # (Auto) 0.3 K/mm3 (0.0-0.8) 11/24/21 06:18 Eos # (Auto) 0.2 K/mm3 (0.0-0.4) 11/24/21 06:18 Baso # (Auto) 0.0 K/mm3 (0.0-0.1) 11/24/21 06:18 Seg Neutrophils % 77.3 % (40.0-70.0) H 11/24/21 06:18 Seg Neutrophils # 5.6 K/mm3 (1.8-7.7) 11/24/21 06:18 Sodium 140 mmol/L (137-145) 11/24/21 06:18 Potassium 3.3 mmol/L (3.6-5.0) L 11/24/21 06:18 Chloride 111.5 mmol/L (98-107) H 11/24/21 06:18 Carbon Dioxide 19 mmol/L (22-30) L 11/24/21 06:18 Anion Gap 13 mmol/L 11/24/21 06:18 BUN 9 mg/dL (7-17) 11/24/21 06:18 Creatinine 0.6 mg/dL (0.6-1.2) 11/24/21 06:18 Estimated GFR > 60 ml/min 11/24/21 06:18 BUN/Creatinine Ratio 15 % 11/24/21 06:18 Glucose 69 mg/dL (65-100) 11/24/21 06:18 Lactic Acid 1.90 mmol/L (0.7-2.0) 11/22/21 22:59 Calcium 6.7 mg/dL (8.4-10.2) L D 11/24/21 06:18 Phosphorus 2.90 mg/dL (2.5-4.5) 11/24/21 06:18 Magnesium 0.80 mg/dL (1.7-2.3) L* 11/24/21 06:18 Total Bilirubin 0.40 mg/dL (0.1-1.2) 11/22/21 15:34 AST 52 units/L (5-40) H 11/22/21 15:34 ALT 44 units/L (7-56) 11/22/21 15:34 Alkaline Phosphatase 109 units/L (35-129) 11/22/21 15:34 Troponin T < 0.010 ng/mL (0.00-0.029) 11/22/21 22:02 Total Protein 6.5 g/dL (6.3-8.2) 11/22/21 15:34 Albumin 3.8 g/dL (3.9-5) L 11/22/21 15:34 Albumin/Globulin Ratio 1.4 % 11/22/21 15:34 Urine Color Yellow (Yellow) 11/22/21 20:47 Urine Turbidity Clear (Clear) 11/22/21 20:47 Specific [place] (Man) 1.015 (1.003-1.030) 11/22/21 20:47 Ur Protein (Man) 2+ mg/dL (Negative) 11/22/21 20:47 Ur Ketones (Man) Negative (Negative) 11/22/21 20:47 Ur Nitrite (Man) Negative (Negative) 11/22/21 20:47 Urine Bilirubin (Man) Negative (Negative) 11/22/21 20:47 Leukocyte Esterase (Man) Negative (Negative) 11/22/21 20:47 Urine WBC (Auto) 1.0 /HPF (0.0-6.0) 11/22/21 20:47 Urine RBC (Auto) 2.0 /HPF (0.0-6.0) 11/22/21 20:47 U Epithel Cells (Auto) 1.0 /HPF (0-13.0) 11/22/21 20:47 Urine RBC (Manual) 2+ (Negative) 11/22/21 20:47 Hyaline Casts 1 /LPF 11/22/21 20:47 Urine Mucus Few /HPF 11/22/21 20:47 Urine HCG, Qual Negative (Negative) 11/22/21 20:47 SARS-CoV-2 (PCR) Negative (Negative) 11/23/21 12:45 Microbiology: Microbiology 11/22/21 21:35 Peripheral/Venous Blood Culture - Preliminary 11/22/21 21:35 Peripheral/Venous Blood Culture - Preliminary Reddy/IV: Voiding Method Toilet Active Medications - Current Medications Current Medications: Generic Name Dose Route Start Last Admin Trade Name Freq PRN Reason Stop Dose Admin Acetaminophen 650 mg 11/23/21 04:49 Acetaminophen 325 Mg Tab PO Q4H PRN Pain MILD(1-3)/Fever >100.5/BLAIR Albuterol 2.5 mg 11/23/21 04:49 11/23/21 15:19 Albuterol 2.5 Mg/3 Ml Nebu IH 2.5 mg Q3HRT PRN Administration Shortness Of Breath Amitriptyline HCl 25 mg 11/23/21 22:00 11/23/21 21:37 Amitriptyline 25 Mg Tab PO 25 mg QHS RADHA Administration Amlodipine Besylate 10 mg 11/23/21 10:00 11/23/21 12:16 Amlodipine 10 Mg Tab PO 10 mg DAILY RADHA Administration Carvedilol 12.5 mg 11/23/21 10:00 11/23/21 21:37 Carvedilol 12.5 Mg Tab PO 12.5 mg BID RADHA Administration Heparin Sodium (Porcine) 5,000 unit 11/23/21 10:00 11/23/21 21:40 Heparin 5,000 Unit/1 Ml Vial SUB-Q 5,000 unit Q12HR RADHA Administration Sodium Chloride 1,000 mls @ 100 mls/hr 11/23/21 05:00 11/24/21 06:48 Nacl 0.45% 1000 Ml IV 100 mls/hr DIRECT RADHA Administration Ceftriaxone Sodium 2 gm in 100 mls @ 200 mls/hr 11/23/21 10:00 11/23/21 13:08 Rocephin/Ns 2 Gm/100 Ml IV 200 mls/hr Q24HR RADHA Administration Protocol Amino Acids 2,000 mls @ 83.33 mls/hr 11/23/21 20:00 11/23/21 22:07 Clinimix 4.25%-10% Solution IV 11/24/21 19:59 83.33 mls/hr ONCE RADHA Administration Methocarbamol 500 mg 11/23/21 10:00 11/23/21 12:17 Methocarbamol 500 Mg Tab PO 500 mg QDAY RADHA Administration Morphine Sulfate 2 mg 11/23/21 04:49 11/24/21 06:41 Morphine 2 Mg/1 Ml Inj IV 2 mg Q4H PRN Administration Pain, Moderate (4-6) Morphine Sulfate 4 mg 11/23/21 04:49 Morphine 4 Mg/1 Ml Inj IV Q4H PRN Pain , Severe (7-10) Ondansetron HCl 4 mg 11/23/21 04:49 Ondansetron 4 Mg/2 Ml Inj IV Q8H PRN Nausea And Vomiting Sodium Chloride 10 ml 11/23/21 10:00 11/23/21 21:38 Sodium Chloride 0.9% 10 Ml Flush Syringe IV 10 ml BID RADHA Administration Sodium Chloride 10 ml 11/23/21 04:49 Sodium Chloride 0.9% 10 Ml Flush Syringe IV PRN PRN LINE FLUSH Nutrition/Malnutrition Assess - Dietary Evaluation Nutrition/Malnutrition Findings: Nutrition Notes Start: 11/23/21 16:23 Freq: Status: Active Protocol: Document 11/23/21 16:24 CM (Rec: 11/23/21 16:37 CM [id number]) Co-Sign 11/23/21 16:24 WW Nutrition Notes Need for Assessment generated from: MD Order Initial or Follow up Brief Note Other Pertinent Diagnosis Short bowel syndrome, fever, SIRS Current Diet Cardiac / TPN/PPN Labs/Tests 11/23: K 3.5 Cl 111.2 CO2 20 Pertinent Medications 11/23: NaCl 1L NaCl 10mL Height 5 ft 2 in Weight 49.89 kg [place] Body Weight (kg) 50.00 BMI 20.1 Intake Prior to Admission Good Weight change and time frame No wt loss [employer] per malnutrition screening tool assessment. Weight changes noted per Physical Assessment 11/23. Weight Status Appropriate Subjective/Other Information RD consult for TPN/PPN order. [facility] short bowel syndrome. Pt on TPN at home per RN. H/O bowel perforation d/t ischemia. R arm PICC line being removed d/t infection. Administering TPN through [facility]. Burn Absent Trauma Absent GI Symptoms None Food Allergy No Skin Integrity/Comment WNL Current % PO Other Minimum of two criteria No Fluid Accumulation N/A Reduced Residency Coordinator Strength N/A (non-severe) Protein-Calorie Malnutrition N\A #1 Nutrition Diagnosis Altered GI function Etiology Short Bowel Syndrome As Evidenced by Signs and Symptoms Pt on TPN at home and MD order for initiating TPN Is patient on ventilator? No Is Patient Ambulatory and/or Out of Bed Yes REE-([place]. Jeor-ambulatory/OOB) [ 1413.295 [id number]] Kcal/Kg value to use for calculation 35 Approximate Energy Requirements Using 1746 kcal/Kg Calculation Used for Recommendations Kcal/kg Additional Notes Protein: 0.8-1.3g/kg ABW 40- 65g PRO q day Fluid: 1mL/kcal or per MD Nutrition Intervention Nutrition Support: CPN administration: Clinimix via [facility] Kcal 1,020 Protein (gm) 85 Carbohydrates (gm) 200 Fluid (mL) 2,000 % RDI: 58%Kcal / 130%AA Goal #1 Pt to initiate and tolerate TPN within 24-48hrs Follow-Up By: 11/24/21 Additional Comments Monitor TPN tolerance, nutrition-related labs (BMP, Phos, Mg - Labs ordered), and wt status.
[2021-11-24] MEDS ORDERED: CALCIUM CARBONATE 500 MG TAB CHEW PO PRN (09:00)
[2021-11-24] MEDS ORDERED: CALCIUM CHLORIDE 1,000 MG in SODIUM CHLORIDE 0.9% 100 ML IV ONE (09:00)
[2021-11-24] MEDS ORDERED: MAGNESIUM SULFATE 4 GM/100 ML BAG IV ONE (09:00)
[2021-11-24] MEDS: MAGNESIUM OXIDE 400 MG TAB PO SCH (09:26)
[2021-11-24] MEDS: DICYCLOMINE 20 MG TAB PO SCH (09:29)
[2021-11-24] MEDS: HEPARIN 5,000 UNIT/1 ML VIAL SUB-Q SCH ×2 (09:30→22:00)
[2021-11-24] MEDS: cefTRIAXone/NS 2 GM/100 ML 2 GM/100 ML BAG IV SCH (09:30)
--- NOTE | 2021-11-24 17:46 | XRay Report ---
LEFT SHOULDER 3 VIEW(S) INDICATION / CLINICAL INFORMATION: Left shoulder pain. COMPARISON: None available. FINDINGS: BONES / JOINT(S): No acute fracture or subluxation. No significant arthritis. SOFT TISSUES: No significant abnormality. ADDITIONAL FINDINGS: None. IMPRESSION: 1. No acute findings. Signer Name: Dave Pearl MD Signed: 11/24/2021 5:42 PM Workstation Name: [id number]
[2021-11-24] MEDS ORDERED: TOTAL PARENTERAL NUTRITION 1,800 ML IV SCH (20:00)
[2021-11-24] MEDS: AMITRIPTYLINE 25 MG TAB PO SCH (21:55)
[2021-11-25] MEDS: carvediloL 12.5 MG TAB PO SCH ×4 (05:11→23:40)
[2021-11-25] MEDS: MORPHINE 2 MG/1 ML INJ IV PRN (07:08)
[2021-11-25 10:05] LABS: Hematocrit 30.8 % (30.3-42.9)
[2021-11-25 10:12] LABS: Blood Urea Nitrogen 6 mg/dL (7-17); Calcium 7.5 mg/dL (8.4-10.2); Hemolysis Index 0
[2021-11-25 10:13] LABS: BUN/Creatinine Ratio 12
[2021-11-25] MEDS: MAGNESIUM OXIDE 400 MG TAB PO SCH (12:36)
[2021-11-25] MEDS: DICYCLOMINE 20 MG TAB PO SCH (12:36)
[2021-11-25] MEDS: HEPARIN 5,000 UNIT/1 ML VIAL SUB-Q SCH ×2 (12:36→23:15)
[2021-11-25] MEDS: cefTRIAXone/NS 2 GM/100 ML 2 GM/100 ML BAG IV SCH (12:36)
[2021-11-25] MEDS: amLODIPine 10 MG TAB PO SCH ×2 (12:36→12:39)
[2021-11-25] MEDS: oxyCODONE /ACETAMINOPHEN 5-325MG TAB PO PRN ×2 (14:42→21:19)
--- NOTE | 2021-11-25 17:18 | Progress Note ---
Assessment and Plan Assessment and plan: -- Febrile illness; T-max 102.5 on admission , COVID-19 negative antipyretics, IV fluids, Empiric antibiotics Follow up blood and urine cultures --Gram-positive bacteremia 2/2 Add vancomycin, continue Rocephin Follow culture sensitivities Patient has port ID consult for evaluation and recommendations --Sepsis; present on admission; Fever, tachycardia, lactic acidosis, gram-positive bacteremia IV vancomycin, IV Rocephin, IV fluids Follow culture sensitivities, consult ID Patient has port for her TPN, consider changing if needed After ID evaluation --SIRS (systemic inflammatory response syndrome) Normal saline at the rate of 100 cc/h Rocephin 2 g IV daily with. Follow cultures --Lactic acidosis;; Trending down --Hypokalemia; Replenished with oral KCl Monitor electrolytes -- Hypomagnesemia; Replenished with magnesium IV and oral Monitor electrolytes --Hypocalcemia; Replenished with calcium supplements Monitor electrolytes Pharmacy to adjust electrolytes in TPN --Left shoulder pain Pain medications, x-ray shoulder Consider PT if needed -Hypertension; moderate control resume home antihypertensives -- Short gut syndrome ; on long-term TPN, Continue supportive care --History of lupus; stable --Anterior chest wall port functional[patient does not have PICC line] Change the dressing of the port site, send cultures if there is any wound Continue TPN -- DVT prophylaxis Heparin 5000 units subcu every 12 hours for DVT prophylaxis. Pepcid 20 mg p.o. twice daily for GI prophylaxis. Patient is a full code Advance care planning +30 minutes I discussed with patient her condition, I discussed the patient tests and reports, I discussed with the patient the treatment plan, I discussed about the pending cultures Multiple electrolyte imbalances and the steps taken to correct them Patient has some questions , answered all of them , she verbalized understanding Preventive health care counseling; +30 minutes Strongly advised to comply with medications, diet, follow-up visits Also advised to keep the area around the port clean and dry to avoid infection Advised to continue oral diet as tolerated and PT TPN as needed She verbalized understanding Closely monitor the patient and adjust management as needed Plan of care reviewed with the patient and her nurse 11/24; follow cultures, follow-up shoulder x-ray report Port site cultures if there is infection 11/26; gram-positive bacteremia 2/2 Add vancomycin, continue Rocephin, follow culture sensitivities, ID consult Patient has TPN port, consider removing if needed History Interval history: I have seen and examined the patient at the bedside Patient's chart and medications reviewed Patient complains of generalized weakness and not feeling well Vital signs noted Blood cultures Gram-positive bacteremia Hospitalist Physical - Constitutional Vitals: Temp Pulse Resp BP Pulse Ox 97.3 F L 55 L 18 147/85 97 11/25/21 11:55 11/25/21 11:55 11/25/21 11:55 11/25/21 11:55 11/25/21 11:55 General appearance: Present: mild distress, well-nourished - EENT Eyes: Present: PERRL, EOM intact - Neck Neck: Present: supple, normal ROM - Respiratory Respiratory effort: normal Respiratory: bilateral: diminished, negative: rales, rhonchi, wheezing - Cardiovascular Rhythm: regular Heart Sounds: Present: S1 & S2 - Extremities Extremities: no ischemia, No edema - Abdominal General gastrointestinal: soft, non-tender, non-distended, normal bowel sounds - Integumentary Integumentary: Present: clear, warm - Psychiatric Psychiatric: appropriate mood/affect, cooperative - Neurologic Neurologic: moves all extremities HEART Score - HEART Score Troponin: Troponin T < 0.010 ng/mL (0.00-0.029) 11/22/21 22:02 Results - Labs CBC & Chem 7: 11/25/21 09:40 11/26/21 11:41 Labs: Laboratory Last Values WBC 7.3 K/mm3 (4.5-11.0) 11/24/21 06:18 RBC 3.32 M/mm3 (3.65-5.03) L 11/24/21 06:18 Hgb 10.0 gm/dl (10.1-14.3) L 11/25/21 09:40 Hct 30.8 % (30.3-42.9) 11/25/21 09:40 MCV 86 fl (79-97) 11/24/21 06:18 MCH 28 pg (28-32) 11/24/21 06:18 MCHC 32 % (30-34) 11/24/21 06:18 RDW 16.5 % (13.2-15.2) H 11/24/21 06:18 Plt Count 183 K/mm3 (140-440) 11/24/21 06:18 Lymph % (Auto) 14.9 % (13.4-35.0) 11/24/21 06:18 [place] % (Auto) 4.5 % (0.0-7.3) 11/24/21 06:18 Eos % (Auto) 2.7 % (0.0-4.3) 11/24/21 06:18 Baso % (Auto) 0.6 % (0.0-1.8) 11/24/21 06:18 Lymph # (Auto) 1.1 K/mm3 (1.2-5.4) L 11/24/21 06:18 [place] # (Auto) 0.3 K/mm3 (0.0-0.8) 11/24/21 06:18 Eos # (Auto) 0.2 K/mm3 (0.0-0.4) 11/24/21 06:18 Baso # (Auto) 0.0 K/mm3 (0.0-0.1) 11/24/21 06:18 Seg Neutrophils % 77.3 % (40.0-70.0) H 11/24/21 06:18 Seg Neutrophils # 5.6 K/mm3 (1.8-7.7) 11/24/21 06:18 Sodium 141 mmol/L (137-145) 11/25/21 09:40 Potassium 3.9 mmol/L (3.6-5.0) 11/25/21 09:40 Chloride 110.1 mmol/L (98-107) H 11/25/21 09:40 Carbon Dioxide 21 mmol/L (22-30) L 11/25/21 09:40 Anion Gap 14 mmol/L 11/25/21 09:40 BUN 6 mg/dL (7-17) L 11/25/21 09:40 Creatinine 0.5 mg/dL (0.6-1.2) L 11/25/21 09:40 Estimated GFR > 60 ml/min 11/25/21 09:40 BUN/Creatinine Ratio 12 % 11/25/21 09:40 Glucose 125 mg/dL (65-100) H 11/25/21 09:40 POC Glucose 75 mg/dL (70-105) 11/25/21 11:54 Lactic Acid 1.90 mmol/L (0.7-2.0) 11/22/21 22:59 Calcium 7.5 mg/dL (8.4-10.2) L 11/25/21 09:40 Phosphorus 2.50 mg/dL (2.5-4.5) 11/25/21 09:40 Magnesium 1.70 mg/dL (1.7-2.3) 11/25/21 09:40 Total Bilirubin 0.40 mg/dL (0.1-1.2) 11/22/21 15:34 AST 52 units/L (5-40) H 11/22/21 15:34 ALT 44 units/L (7-56) 11/22/21 15:34 Alkaline Phosphatase 109 units/L (35-129) 11/22/21 15:34 Troponin T < 0.010 ng/mL (0.00-0.029) 11/22/21 22:02 Total Protein 6.5 g/dL (6.3-8.2) 11/22/21 15:34 Albumin 3.8 g/dL (3.9-5) L 11/22/21 15:34 Albumin/Globulin Ratio 1.4 % 11/22/21 15:34 Urine Color Yellow (Yellow) 11/22/21 20:47 Urine Turbidity Clear (Clear) 11/22/21 20:47 Specific [place] (Man) 1.015 (1.003-1.030) 11/22/21 20:47 Ur Protein (Man) 2+ mg/dL (Negative) 11/22/21 20:47 Ur Ketones (Man) Negative (Negative) 11/22/21 20:47 Ur Nitrite (Man) Negative (Negative) 11/22/21 20:47 Urine Bilirubin (Man) Negative (Negative) 11/22/21 20:47 Leukocyte Esterase (Man) Negative (Negative) 11/22/21 20:47 Urine WBC (Auto) 1.0 /HPF (0.0-6.0) 11/22/21 20:47 Urine RBC (Auto) 2.0 /HPF (0.0-6.0) 11/22/21 20:47 U Epithel Cells (Auto) 1.0 /HPF (0-13.0) 11/22/21 20:47 Urine RBC (Manual) 2+ (Negative) 11/22/21 20:47 Hyaline Casts 1 /LPF 11/22/21 20:47 Urine Mucus Few /HPF 11/22/21 20:47 Urine HCG, Qual Negative (Negative) 11/22/21 20:47 SARS-CoV-2 (PCR) Negative (Negative) 11/23/21 12:45 Reddy/IV: Voiding Method Toilet Active Medications - Current Medications Current Medications: Generic Name Dose Route Start Last Admin Trade Name Freq PRN Reason Stop Dose Admin Acetaminophen 650 mg 11/23/21 04:49 Acetaminophen 325 Mg Tab PO Q4H PRN Pain MILD(1-3)/Fever >100.5/BLAIR Albuterol 2.5 mg 11/23/21 04:49 11/23/21 15:19 Albuterol 2.5 Mg/3 Ml Nebu IH 2.5 mg Q3HRT PRN Administration Shortness Of Breath Amitriptyline HCl 25 mg 11/23/21 22:00 11/24/21 21:55 Amitriptyline 25 Mg Tab PO 25 mg QHS RADHA Administration Amlodipine Besylate 10 mg 11/23/21 10:00 11/25/21 12:39 Amlodipine 10 Mg Tab PO Not Given DAILY RADHA Calcium Carbonate/Glycine 500 mg 11/24/21 09:00 Calcium Carbonate 500 Mg Tab Chew PO Q4H PRN Indigestion Carvedilol 12.5 mg 11/23/21 10:00 11/25/21 12:37 Carvedilol 12.5 Mg Tab PO Not Given BID RADHA Dicyclomine HCl 20 mg 11/24/21 10:00 11/25/21 12:36 Dicyclomine 20 Mg Tab PO 20 mg QDAY RADHA Administration Heparin Sodium (Porcine) 5,000 unit 11/23/21 10:00 11/25/21 12:36 Heparin 5,000 Unit/1 Ml Vial SUB-Q 5,000 unit Q12HR RADHA Administration Ceftriaxone Sodium 2 gm in 100 mls @ 200 mls/hr 11/23/21 10:00 11/25/21 12:36 Rocephin/Ns 2 Gm/100 Ml IV 200 mls/hr Q24HR RADHA Administration Protocol Amino Acids/Electrolytes/Dextrose 1,800 mls @ 0 mls/hr 11/25/21 20:00 Tpn Adult IV 11/26/21 08:01 DAILY@1999 [facility] Protocol As Directed Magnesium Oxide 400 mg 11/24/21 10:00 11/25/21 12:36 Magnesium Oxide 400 Mg Tab PO 400 mg QDAY RADHA Administration Methocarbamol 500 mg 11/23/21 10:00 11/25/21 12:38 Methocarbamol 500 Mg Tab PO Not Given QDAY RADHA Morphine Sulfate 2 mg 11/23/21 04:49 11/25/21 07:08 Morphine 2 Mg/1 Ml Inj IV 2 mg Q4H PRN Administration Pain, Moderate (4-6) Morphine Sulfate 4 mg 11/23/21 04:49 Morphine 4 Mg/1 Ml Inj IV Q4H PRN Pain , Severe (7-10) Ondansetron HCl 4 mg 11/23/21 04:49 Ondansetron 4 Mg/2 Ml Inj IV Q8H PRN Nausea And Vomiting Oxycodone/Acetaminophen 1 tab 11/25/21 15:00 11/25/21 14:42 Oxycodone /Acetaminophen 5-325mg Tab PO 1 tab Q6H PRN Administration Pain, Moderate (4-6) Sodium Chloride 10 ml 11/23/21 10:00 11/25/21 12:38 Sodium Chloride 0.9% 10 Ml Flush Syringe IV 10 ml BID RADHA Administration Sodium Chloride 10 ml 11/23/21 04:49 Sodium Chloride 0.9% 10 Ml Flush Syringe IV PRN PRN LINE FLUSH Nutrition/Malnutrition Assess - Dietary Evaluation Nutrition/Malnutrition Findings: Nutrition Notes Start: 11/23/21 16:23 Freq: Status: Active Protocol: Document 11/25/21 15:14 CM (Rec: 11/25/21 15:21 CM [id number]) Co-Sign 11/25/21 15:14 WW Nutrition Notes Initial or Follow up Reassessment Other Pertinent Diagnosis Short bowel syndrome, fever, SIRS Current Diet Cardiac / TPN/PPN Labs/Tests 11/25: Na 141 K 3.9 Cl 110.1 CO2 21 BUN 6 Cr 0.5 Phos 2.5 Mg 1.7 Ca 7.5 Pertinent Medications Reviewed Height 5 ft 2 in Weight 49.9 kg [place] Body Weight (kg) 50.00 BMI 20.1 Weight Status Appropriate Subjective/Other Information RD follow-up for TPN. Pt remains on cardiac diet/TPN . 100% Breakfast/Lunch 75% Dinner 11/24 per ADL notes. Modified micronutrients for TPN order. 1800mL/8% Dex/3.3% AA GI Symptoms Other Food Allergy No Skin Integrity/Comment WNL Current % PO Good (75-100%) #1 Nutrition Diagnosis Altered GI function Diagnosis Progress(for reassessment Continues documentation) Is patient on ventilator? No Is Patient Ambulatory and/or Out of Bed Yes REE-([facility] Jeor-ambulatory/OOB) [ 1413.425 NUTR.MSJOOB] Kcal/Kg value to use for calculation 35 Approximate Energy Requirements Using 1747 kcal/Kg Calculation Used for Recommendations Kcal/kg Additional Notes Protein: 0.8-1.3g/kg ABW 40- 65g PRO q day Fluid: 1mL/kcal or per MD Nutrition Intervention Nutrition Support: TPN: 1800mL/8% Dex/3.3% AA Kcal 750 Protein (gm) 60 Carbohydrates (gm) 150 Fluid (mL) 1,800 % RDI: 43%kcal/100%AA Goal #1 Pt to consume and tolerate > 75% of estimated energy/ protein needs through current diet order and TPN administration. Follow-Up By: 11/26/21 Additional Comments Monitor TPN tolerance, nutrition-related labs (BMP, Phos, Mg - Labs ordered), and wt status.
[2021-11-25] MEDS ORDERED: TOTAL PARENTERAL NUTRITION 1,800 ML IV SCH (20:00)
[2021-11-25] MEDS: AMITRIPTYLINE 25 MG TAB PO SCH (21:19)
[2021-11-26] MEDS: oxyCODONE /ACETAMINOPHEN 5-325MG TAB PO PRN ×3 (04:22→18:58)
[2021-11-26] MEDS: amLODIPine 10 MG TAB PO SCH (09:14)
[2021-11-26] MEDS: cefTRIAXone/NS 2 GM/100 ML 2 GM/100 ML BAG IV SCH (09:14)
[2021-11-26] MEDS: DICYCLOMINE 20 MG TAB PO SCH (09:15)
[2021-11-26] MEDS: MAGNESIUM OXIDE 400 MG TAB PO SCH (09:15)
[2021-11-26] MEDS: carvediloL 12.5 MG TAB PO SCH ×2 (09:15→21:02)
[2021-11-26] MEDS: HEPARIN 5,000 UNIT/1 ML VIAL SUB-Q SCH ×2 (09:16→21:03)
[2021-11-26 12:39] LABS: Blood Urea Nitrogen 7 mg/dL (7-17); Hemolysis Index 5
[2021-11-26 12:40] LABS: BUN/Creatinine Ratio 23
[2021-11-26] MEDS ORDERED: SODIUM PHOSPHATE 30 MMOL in SODIUM CHLORIDE 0.9% 500 ML 500 ML IV ONE (14:20)
[2021-11-26] MEDS ORDERED: MAGNESIUM SULFATE 2 GM/50 ML BAG IV ONE (14:20)
[2021-11-26] MEDS ORDERED: VANCOMYCIN PHARMACY TO DOSE IV SCH (17:00)
[2021-11-26] MEDS ORDERED: VANCOMYCIN/NS 1 GM/250 ML 1 GM/250 ML BAG IV ONE (17:30)
[2021-11-26] MEDS ORDERED: TOTAL PARENTERAL NUTRITION 1,800 ML IV SCH (20:00)
[2021-11-26] MEDS: AMITRIPTYLINE 25 MG TAB PO SCH (21:01)
--- NOTE | 2021-11-27 00:49 | Progress Note ---
History Interval history: I have seen and examined the patient at the bedside this morning Patient's chart and medications reviewed Patient says she does not feel good She says she has some pain and irritation at the port site The port is functional patient is receiving TPN No other complaints vital signs stable Patient's blood cultures are positive with gram positive cocci Consult ID Hospitalist Physical - Constitutional Vitals: Temp Pulse Resp BP Pulse Ox 98.7 F 55 L 18 173/73 97 11/26/21 20:57 11/26/21 21:02 11/26/21 20:57 11/26/21 20:57 11/26/21 21:00 General appearance: Present: mild distress, well-nourished - EENT Eyes: Present: PERRL, EOM intact - Neck Neck: Present: supple, normal ROM - Respiratory Respiratory effort: normal Respiratory: bilateral: diminished, negative: rales, rhonchi, wheezing - Cardiovascular Rhythm: regular Heart Sounds: Present: S1 & S2 - Extremities Extremities: no ischemia, No edema - Abdominal General gastrointestinal: soft, non-tender, non-distended, normal bowel sounds - Integumentary Integumentary: Present: clear, warm - Psychiatric Psychiatric: appropriate mood/affect, cooperative - Neurologic Neurologic: CNII-XII intact, moves all extremities HEART Score - HEART Score Troponin: Troponin T < 0.010 ng/mL (0.00-0.029) 11/22/21 22:02 Results - Labs CBC & Chem 7: 11/25/21 09:40 11/27/21 07:22 Labs: Laboratory Last Values WBC 7.3 K/mm3 (4.5-11.0) 11/24/21 06:18 RBC 3.32 M/mm3 (3.65-5.03) L 11/24/21 06:18 Hgb 10.0 gm/dl (10.1-14.3) L 11/25/21 09:40 Hct 30.8 % (30.3-42.9) 11/25/21 09:40 MCV 86 fl (79-97) 11/24/21 06:18 MCH 28 pg (28-32) 11/24/21 06:18 MCHC 32 % (30-34) 11/24/21 06:18 RDW 16.5 % (13.2-15.2) H 11/24/21 06:18 Plt Count 183 K/mm3 (140-440) 11/24/21 06:18 Lymph % (Auto) 14.9 % (13.4-35.0) 11/24/21 06:18 [place] % (Auto) 4.5 % (0.0-7.3) 11/24/21 06:18 Eos % (Auto) 2.7 % (0.0-4.3) 11/24/21 06:18 Baso % (Auto) 0.6 % (0.0-1.8) 11/24/21 06:18 Lymph # (Auto) 1.1 K/mm3 (1.2-5.4) L 11/24/21 06:18 [place] # (Auto) 0.3 K/mm3 (0.0-0.8) 11/24/21 06:18 Eos # (Auto) 0.2 K/mm3 (0.0-0.4) 11/24/21 06:18 Baso # (Auto) 0.0 K/mm3 (0.0-0.1) 11/24/21 06:18 Seg Neutrophils % 77.3 % (40.0-70.0) H 11/24/21 06:18 Seg Neutrophils # 5.6 K/mm3 (1.8-7.7) 11/24/21 06:18 Sodium 137 mmol/L (137-145) 11/26/21 11:41 Potassium 4.4 mmol/L (3.6-5.0) 11/26/21 11:41 Chloride 104.3 mmol/L (98-107) 11/26/21 11:41 Carbon Dioxide 26 mmol/L (22-30) 11/26/21 11:41 Anion Gap 11 mmol/L 11/26/21 11:41 BUN 7 mg/dL (7-17) 11/26/21 11:41 Creatinine 0.3 mg/dL (0.6-1.2) L 11/26/21 11:41 Estimated GFR > 60 ml/min 11/26/21 11:41 BUN/Creatinine Ratio 23 % 11/26/21 11:41 Glucose 92 mg/dL (65-100) 11/26/21 11:41 POC Glucose 111 mg/dL (70-105) H 11/26/21 16:06 Lactic Acid 1.90 mmol/L (0.7-2.0) 11/22/21 22:59 Calcium 8.0 mg/dL (8.4-10.2) L 11/26/21 11:41 Phosphorus 2.30 mg/dL (2.5-4.5) L 11/26/21 11:41 Magnesium 1.60 mg/dL (1.7-2.3) L 11/26/21 11:41 Total Bilirubin 0.40 mg/dL (0.1-1.2) 11/22/21 15:34 AST 52 units/L (5-40) H 11/22/21 15:34 ALT 44 units/L (7-56) 11/22/21 15:34 Alkaline Phosphatase 109 units/L (35-129) 11/22/21 15:34 Troponin T < 0.010 ng/mL (0.00-0.029) 11/22/21 22:02 Total Protein 6.5 g/dL (6.3-8.2) 11/22/21 15:34 Albumin 3.8 g/dL (3.9-5) L 11/22/21 15:34 Albumin/Globulin Ratio 1.4 % 11/22/21 15:34 Urine Color Yellow (Yellow) 11/22/21 20:47 Urine Turbidity Clear (Clear) 11/22/21 20:47 Specific [place] (Man) 1.015 (1.003-1.030) 11/22/21 20:47 Ur Protein (Man) 2+ mg/dL (Negative) 11/22/21 20:47 Ur Ketones (Man) Negative (Negative) 11/22/21 20:47 Ur Nitrite (Man) Negative (Negative) 11/22/21 20:47 Urine Bilirubin (Man) Negative (Negative) 11/22/21 20:47 Leukocyte Esterase (Man) Negative (Negative) 11/22/21 20:47 Urine WBC (Auto) 1.0 /HPF (0.0-6.0) 11/22/21 20:47 Urine RBC (Auto) 2.0 /HPF (0.0-6.0) 11/22/21 20:47 U Epithel Cells (Auto) 1.0 /HPF (0-13.0) 11/22/21 20:47 Urine RBC (Manual) 2+ (Negative) 11/22/21 20:47 Hyaline Casts 1 /LPF 11/22/21 20:47 Urine Mucus Few /HPF 11/22/21 20:47 Urine HCG, Qual Negative (Negative) 11/22/21 20:47 SARS-CoV-2 (PCR) Negative (Negative) 11/23/21 12:45 Microbiology: Microbiology 11/26/21 09:51 Peripheral/Venous Blood Culture - Preliminary Culture in Progress 11/26/21 07:27 Peripheral/Venous Blood Culture - Preliminary Culture in Progress Reddy/IV: Voiding Method Toilet Active Medications - Current Medications Current Medications: Generic Name Dose Route Start Last Admin Trade Name Freq PRN Reason Stop Dose Admin Acetaminophen 650 mg 11/23/21 04:49 Acetaminophen 325 Mg Tab PO Q4H PRN Pain MILD(1-3)/Fever >100.5/BLAIR Albuterol 2.5 mg 11/23/21 04:49 11/23/21 15:19 Albuterol 2.5 Mg/3 Ml Nebu IH 2.5 mg Q3HRT PRN Administration Shortness Of Breath Amitriptyline HCl 25 mg 11/23/21 22:00 11/26/21 21:01 Amitriptyline 25 Mg Tab PO 25 mg QHS RADHA Administration Amlodipine Besylate 10 mg 11/23/21 10:00 11/26/21 09:14 Amlodipine 10 Mg Tab PO 10 mg DAILY RADHA Administration Calcium Carbonate/Glycine 500 mg 11/24/21 09:00 Calcium Carbonate 500 Mg Tab Chew PO Q4H PRN Indigestion Carvedilol 12.5 mg 11/23/21 10:00 11/26/21 21:02 Carvedilol 12.5 Mg Tab PO Not Given BID RADHA Dicyclomine HCl 20 mg 11/24/21 10:00 11/26/21 09:15 Dicyclomine 20 Mg Tab PO 20 mg QDAY RADHA Administration Heparin Sodium (Porcine) 5,000 unit 11/23/21 10:00 11/26/21 21:03 Heparin 5,000 Unit/1 Ml Vial SUB-Q 5,000 unit Q12HR RADHA Administration Ceftriaxone Sodium 2 gm in 100 mls @ 200 mls/hr 11/23/21 10:00 11/26/21 09:14 Rocephin/Ns 2 Gm/100 Ml IV 200 mls/hr Q24HR RADHA Administration Protocol Amino Acids/Electrolytes/Dextrose 1,800 mls @ 0 mls/hr 11/26/21 20:00 11/26/21 20:53 Tpn Adult IV 11/27/21 08:01 100 mls/hr DAILY@2000 RADHA Administration Protocol As Directed Vancomycin HCl 750 mg/ Sodium 265 mls @ 166.667 mls/hr 11/27/21 06:00 Chloride IV Q12H RADHA Magnesium Oxide 400 mg 11/24/21 10:00 11/26/21 09:15 Magnesium Oxide 400 Mg Tab PO 400 mg QDAY RADHA Administration Methocarbamol 500 mg 11/23/21 10:00 11/26/21 09:15 Methocarbamol 500 Mg Tab PO 500 mg QDAY RADHA Administration Morphine Sulfate 2 mg 11/23/21 04:49 11/25/21 07:08 Morphine 2 Mg/1 Ml Inj IV 2 mg Q4H PRN Administration Pain, Moderate (4-6) Morphine Sulfate 4 mg 11/23/21 04:49 Morphine 4 Mg/1 Ml Inj IV Q4H PRN Pain , Severe (7-10) Ondansetron HCl 4 mg 11/23/21 04:49 Ondansetron 4 Mg/2 Ml Inj IV Q8H PRN Nausea And Vomiting Oxycodone/Acetaminophen 1 tab 11/25/21 15:00 11/26/21 18:58 Oxycodone /Acetaminophen 5-325mg Tab PO 1 tab Q6H PRN Administration Pain, Moderate (4-6) Sodium Chloride 10 ml 11/23/21 10:00 11/26/21 21:01 Sodium Chloride 0.9% 10 Ml Flush Syringe IV 10 ml BID RADHA Administration Sodium Chloride 10 ml 11/23/21 04:49 Sodium Chloride 0.9% 10 Ml Flush Syringe IV PRN PRN LINE FLUSH Nutrition/Malnutrition Assess - Dietary Evaluation Nutrition/Malnutrition Findings: Nutrition Notes Start: 11/23/21 16:23 Freq: Status: Active Protocol: Document 11/26/21 09:50 MARCIAL (Rec: 11/26/21 10:37 MARCIAL [id number]) Nutrition Notes Initial or Follow up Reassessment Current Diagnosis Hypertension Other Pertinent Diagnosis SIRS, Lactic Acidosis, Short Bowel Syndrome, Electrolyte Imbalance, ... Current Diet Cardiac Diet (since B 11/23), PPN @ 75 ml/hr (since D 11/23) . Labs/Tests 11/26: Crea 0.3, Ca 8.0, Phos 2.3, Mg 1.6. Pertinent Medications 11/26: Nutritionally unremarkable. Height 5 ft 2 in Weight 49.5 kg [place] Body Weight (kg) 50.00 BMI 19.9 Weight change and time frame 0.4 Kg body weight change in 1 day reported. Weight Status Appropriate Subjective/Other Information Day 3 TPN. Pt remains on cardiac diet/TPN . 100% Breakfast/Lunch 75% Dinner per RN over the phone. Pt is on Room Air, O2 saturation @ 100%, according to Physical Assessment History notes. Pt has missing teeth, according to Physical Assessment History notes. MD instructions to continue PPN along with PO diet, according to RN over the phone . Percent of energy/protein needs met: Prescribed Cardiac Diet provides for energy/protein needs (2,230 Kcal/85 g) during LOS. Prescribed PPN @ 75 ml/hr provides for energy/protein needs (750 Kcal/60 g) during LOS, 58% Kcal; 100% AA. Burn Absent Trauma Absent GI Symptoms Other Food Allergy No Skin Integrity/Comment Assessment WNL. Current % PO Good (75-100%) Minimum of two criteria No Fluid Accumulation N/A Reduced Clinical Case Manager Strength N/A (non-severe) Protein-Calorie Malnutrition N\A #1 Nutrition Diagnosis Altered GI function Diagnosis Progress(for reassessment Continues documentation) Is patient on ventilator? No Is Patient Ambulatory and/or Out of Bed Yes REE-([facility]-ambulatory/OOB) [ 1408.225 NUTR.MSJOOB] Kcal/Kg value to use for calculation 26 Approximate Energy Requirements Using 1287 kcal/Kg Calculation Used for Recommendations Kcal/kg Additional Notes Protein: 0.8-1 g/Kg ABW; 40-60 g/day. Fluids: 1 ml/Kcal, or as per MD. Nutrition Intervention Change Diet Order: Continue Cardiac Diet as tolerated. Nutrition Support: Continue PPN @ 75 ml/hr. 8.3% Dex, 3.3% AA, Mag 15 mEq, Phos 30 mEq, Ca 15 mEq. Kcal 750 Protein (gm) 60 Carbohydrates (gm) 150 Fat (gm) 0 Fluid (mL) 1,800 Fiber (gm) 0 % RDI: 58% Kcal; 100% AA. Goal #1 Provide at least 75% of energy /protein needs through Parenteral Feeding along with PO diet during LOS. Follow-Up By: 11/27/21 Additional Comments Monitor TPN tolerance, nutrition-related labs (BMP, Phos, Mg - Labs ordered), and wt status.
[2021-11-27] MEDS: oxyCODONE /ACETAMINOPHEN 5-325MG TAB PO PRN ×4 (01:15→22:54)
--- NOTE | 2021-11-27 01:24 | Progress Note ---
Hospitalist Physical - Constitutional Vitals: Temp Pulse Resp BP Pulse Ox 98.7 F 55 L 18 173/73 97 11/26/21 20:57 11/26/21 21:02 11/26/21 20:57 11/26/21 20:57 11/26/21 21:00 General appearance: Present: mild distress, well-nourished HEART Score - HEART Score Troponin: Troponin T < 0.010 ng/mL (0.00-0.029) 11/22/21 22:02 Results - Labs CBC & Chem 7: 11/25/21 09:40 11/26/21 11:41 Labs: Laboratory Last Values WBC 7.3 K/mm3 (4.5-11.0) 11/24/21 06:18 RBC 3.32 M/mm3 (3.65-5.03) L 11/24/21 06:18 Hgb 10.0 gm/dl (10.1-14.3) L 11/25/21 09:40 Hct 30.8 % (30.3-42.9) 11/25/21 09:40 MCV 86 fl (79-97) 11/24/21 06:18 MCH 28 pg (28-32) 11/24/21 06:18 MCHC 32 % (30-34) 11/24/21 06:18 RDW 16.5 % (13.2-15.2) H 11/24/21 06:18 Plt Count 183 K/mm3 (140-440) 11/24/21 06:18 Lymph % (Auto) 14.9 % (13.4-35.0) 11/24/21 06:18 [place] % (Auto) 4.5 % (0.0-7.3) 11/24/21 06:18 Eos % (Auto) 2.7 % (0.0-4.3) 11/24/21 06:18 Baso % (Auto) 0.6 % (0.0-1.8) 11/24/21 06:18 Lymph # (Auto) 1.1 K/mm3 (1.2-5.4) L 11/24/21 06:18 [place] # (Auto) 0.3 K/mm3 (0.0-0.8) 11/24/21 06:18 Eos # (Auto) 0.2 K/mm3 (0.0-0.4) 11/24/21 06:18 Baso # (Auto) 0.0 K/mm3 (0.0-0.1) 11/24/21 06:18 Seg Neutrophils % 77.3 % (40.0-70.0) H 11/24/21 06:18 Seg Neutrophils # 5.6 K/mm3 (1.8-7.7) 11/24/21 06:18 Sodium 137 mmol/L (137-145) 11/26/21 11:41 Potassium 4.4 mmol/L (3.6-5.0) 11/26/21 11:41 Chloride 104.3 mmol/L (98-107) 11/26/21 11:41 Carbon Dioxide 26 mmol/L (22-30) 11/26/21 11:41 Anion Gap 11 mmol/L 11/26/21 11:41 BUN 7 mg/dL (7-17) 11/26/21 11:41 Creatinine 0.3 mg/dL (0.6-1.2) L 11/26/21 11:41 Estimated GFR > 60 ml/min 11/26/21 11:41 BUN/Creatinine Ratio 23 % 11/26/21 11:41 Glucose 92 mg/dL (65-100) 11/26/21 11:41 POC Glucose 111 mg/dL (70-105) H 11/26/21 16:06 Lactic Acid 1.90 mmol/L (0.7-2.0) 11/22/21 22:59 Calcium 8.0 mg/dL (8.4-10.2) L 11/26/21 11:41 Phosphorus 2.30 mg/dL (2.5-4.5) L 11/26/21 11:41 Magnesium 1.60 mg/dL (1.7-2.3) L 11/26/21 11:41 Total Bilirubin 0.40 mg/dL (0.1-1.2) 11/22/21 15:34 AST 52 units/L (5-40) H 11/22/21 15:34 ALT 44 units/L (7-56) 11/22/21 15:34 Alkaline Phosphatase 109 units/L (35-129) 11/22/21 15:34 Troponin T < 0.010 ng/mL (0.00-0.029) 11/22/21 22:02 Total Protein 6.5 g/dL (6.3-8.2) 11/22/21 15:34 Albumin 3.8 g/dL (3.9-5) L 11/22/21 15:34 Albumin/Globulin Ratio 1.4 % 11/22/21 15:34 Urine Color Yellow (Yellow) 11/22/21 20:47 Urine Turbidity Clear (Clear) 11/22/21 20:47 Specific [place] (Man) 1.015 (1.003-1.030) 11/22/21 20:47 Ur Protein (Man) 2+ mg/dL (Negative) 11/22/21 20:47 Ur Ketones (Man) Negative (Negative) 11/22/21 20:47 Ur Nitrite (Man) Negative (Negative) 11/22/21 20:47 Urine Bilirubin (Man) Negative (Negative) 11/22/21 20:47 Leukocyte Esterase (Man) Negative (Negative) 11/22/21 20:47 Urine WBC (Auto) 1.0 /HPF (0.0-6.0) 11/22/21 20:47 Urine RBC (Auto) 2.0 /HPF (0.0-6.0) 11/22/21 20:47 U Epithel Cells (Auto) 1.0 /HPF (0-13.0) 11/22/21 20:47 Urine RBC (Manual) 2+ (Negative) 11/22/21 20:47 Hyaline Casts 1 /LPF 11/22/21 20:47 Urine Mucus Few /HPF 11/22/21 20:47 Urine HCG, Qual Negative (Negative) 11/22/21 20:47 SARS-CoV-2 (PCR) Negative (Negative) 11/23/21 12:45 Microbiology: Microbiology 11/26/21 09:51 Peripheral/Venous Blood Culture - Preliminary Culture in Progress 11/26/21 07:27 Peripheral/Venous Blood Culture - Preliminary Culture in Progress Reddy/IV: Voiding Method Toilet Active Medications - Current Medications Current Medications: Generic Name Dose Route Start Last Admin Trade Name Freq PRN Reason Stop Dose Admin Acetaminophen 650 mg 11/23/21 04:49 Acetaminophen 325 Mg Tab PO Q4H PRN Pain MILD(1-3)/Fever >100.5/BLAIR Albuterol 2.5 mg 11/23/21 04:49 11/23/21 15:19 Albuterol 2.5 Mg/3 Ml Nebu IH 2.5 mg Q3HRT PRN Administration Shortness Of Breath Amitriptyline HCl 25 mg 11/23/21 22:00 11/26/21 21:01 Amitriptyline 25 Mg Tab PO 25 mg QHS RADHA Administration Amlodipine Besylate 10 mg 11/23/21 10:00 11/26/21 09:14 Amlodipine 10 Mg Tab PO 10 mg DAILY RADHA Administration Calcium Carbonate/Glycine 500 mg 11/24/21 09:00 Calcium Carbonate 500 Mg Tab Chew PO Q4H PRN Indigestion Carvedilol 12.5 mg 11/23/21 10:00 11/26/21 21:02 Carvedilol 12.5 Mg Tab PO Not Given BID RADHA Dicyclomine HCl 20 mg 11/24/21 10:00 11/26/21 09:15 Dicyclomine 20 Mg Tab PO 20 mg QDAY RADHA Administration Heparin Sodium (Porcine) 5,000 unit 11/23/21 10:00 11/26/21 21:03 Heparin 5,000 Unit/1 Ml Vial SUB-Q 5,000 unit Q12HR RADHA Administration Ceftriaxone Sodium 2 gm in 100 mls @ 200 mls/hr 11/23/21 10:00 11/26/21 09:14 Rocephin/Ns 2 Gm/100 Ml IV 200 mls/hr Q24HR RADHA Administration Protocol Amino Acids/Electrolytes/Dextrose 1,800 mls @ 0 mls/hr 11/26/21 20:00 11/26/21 20:53 Tpn Adult IV 11/27/21 08:01 100 mls/hr DAILY@2000 [facility] Administration Protocol As Directed Vancomycin HCl 750 mg/ Sodium 265 mls @ 166.667 mls/hr 11/27/21 06:00 Chloride IV Q12H RADHA Magnesium Oxide 400 mg 11/24/21 10:00 11/26/21 09:15 Magnesium Oxide 400 Mg Tab PO 400 mg QDAY RADHA Administration Methocarbamol 500 mg 11/23/21 10:00 11/26/21 09:15 Methocarbamol 500 Mg Tab PO 500 mg QDAY RADHA Administration Morphine Sulfate 2 mg 11/23/21 04:49 11/25/21 07:08 Morphine 2 Mg/1 Ml Inj IV 2 mg Q4H PRN Administration Pain, Moderate (4-6) Morphine Sulfate 4 mg 11/23/21 04:49 Morphine 4 Mg/1 Ml Inj IV Q4H PRN Pain , Severe (7-10) Ondansetron HCl 4 mg 11/23/21 04:49 Ondansetron 4 Mg/2 Ml Inj IV Q8H PRN Nausea And Vomiting Oxycodone/Acetaminophen 1 tab 11/25/21 15:00 11/27/21 01:15 Oxycodone /Acetaminophen 5-325mg Tab PO 1 tab Q6H PRN Administration Pain, Moderate (4-6) Sodium Chloride 10 ml 11/23/21 10:00 11/26/21 21:01 Sodium Chloride 0.9% 10 Ml Flush Syringe IV 10 ml BID RADHA Administration Sodium Chloride 10 ml 11/23/21 04:49 Sodium Chloride 0.9% 10 Ml Flush Syringe IV PRN PRN LINE FLUSH Nutrition/Malnutrition Assess - Dietary Evaluation Nutrition/Malnutrition Findings: Nutrition Notes Start: 11/23/21 16:23 Freq: Status: Active Protocol: Document 11/26/21 09:50 MARCIAL (Rec: 11/26/21 10:37 MARCIAL [email or web address]) Nutrition Notes Initial or Follow up Reassessment Current Diagnosis Hypertension Other Pertinent Diagnosis SIRS, Lactic Acidosis, Short Bowel Syndrome, Electrolyte Imbalance, ... Current Diet Cardiac Diet (since B 11/23), PPN @ 75 ml/hr (since D 11/23) . Labs/Tests 11/26: Crea 0.3, Ca 8.0, Phos 2.3, Mg 1.6. Pertinent Medications 11/26: Nutritionally unremarkable. Height 5 ft 2 in Weight 49.5 kg [place] Body Weight (kg) 50.00 BMI 19.9 Weight change and time frame 0.4 Kg body weight change in 1 day reported. Weight Status Appropriate Subjective/Other Information Day 3 TPN. Pt remains on cardiac diet/TPN . 100% Breakfast/Lunch 75% Dinner per RN over the phone. Pt is on Room Air, O2 saturation @ 100%, according to Physical Assessment History notes. Pt has missing teeth, according to Physical Assessment History notes. MD instructions to continue PPN along with PO diet, according to RN over the phone . Percent of energy/protein needs met: Prescribed Cardiac Diet provides for energy/protein needs (2,230 Kcal/85 g) during LOS. Prescribed PPN @ 75 ml/hr provides for energy/protein needs (750 Kcal/60 g) during LOS, 58% Kcal; 100% AA. Burn Absent Trauma Absent GI Symptoms Other Food Allergy No Skin Integrity/Comment Assessment WNL. Current % PO Good (75-100%) Minimum of two criteria No Fluid Accumulation N/A Reduced [place] [employer] Strength N/A (non-severe) Protein-Calorie Malnutrition N\A #1 Nutrition Diagnosis Altered GI function Diagnosis Progress(for reassessment Continues documentation) Is patient on ventilator? No Is Patient Ambulatory and/or Out of Bed Yes REE-([place] [facility]-ambulatory/OOB) [ 1408.225 NUTR.[id number]] Kcal/Kg value to use for calculation 26 Approximate Energy Requirements Using 1287 kcal/Kg Calculation Used for Recommendations Kcal/kg Additional Notes Protein: 0.8-1 g/Kg ABW; 40-60 g/day. Fluids: 1 ml/Kcal, or as per MD. Nutrition Intervention Change Diet Order: Continue Cardiac Diet as tolerated. Nutrition Support: Continue PPN @ 75 ml/hr. 8.3% Dex, 3.3% AA, Mag 15 mEq, Phos 30 mEq, Ca 15 mEq. Kcal 750 Protein (gm) 60 Carbohydrates (gm) 150 Fat (gm) 0 Fluid (mL) 1,800 Fiber (gm) 0 % RDI: 58% Kcal; 100% AA. Goal #1 Provide at least 75% of energy /protein needs through Parenteral Feeding along with PO diet during LOS. Follow-Up By: 11/27/21 Additional Comments Monitor TPN tolerance, nutrition-related labs (BMP, Phos, Mg - Labs ordered), and wt status.
--- NOTE | 2021-11-27 01:27 | Progress Note ---
Assessment and Plan Assessment and plan: -- Febrile illness; T-max 102.5 on admission , COVID-19 negative antipyretics, IV fluids, Empiric antibiotics Follow up blood and urine cultures --Gram-positive bacteremia 2/2 Add vancomycin, continue Rocephin Follow culture sensitivities Patient has port ID consult for evaluation and recommendations --Sepsis; present on admission; Fever, tachycardia, lactic acidosis, gram-positive bacteremia IV vancomycin, IV Rocephin, IV fluids Follow culture sensitivities, consult ID Patient has port for her TPN, consider changing if needed After ID evaluation --Lactic acidosis;; Trending down --Hypokalemia; Replenished with oral KCl Monitor electrolytes -- Hypomagnesemia; Replenished with magnesium IV and oral Monitor electrolytes --Hypocalcemia; Replenished with calcium supplements Monitor electrolytes Pharmacy to adjust electrolytes in TPN --Left shoulder pain Pain medications, x-ray shoulder Consider PT if needed -Hypertension; moderate control resume home antihypertensives -- Short gut syndrome ; on long-term TPN, Continue supportive care --History of lupus; stable --Anterior chest wall port functional[patient does not have PICC line] Change the dressing of the port site, send cultures if there is any wound Continue TPN -- DVT prophylaxis Heparin 5000 units subcu every 12 hours for DVT prophylaxis. Pepcid 20 mg p.o. twice daily for GI prophylaxis. Patient is a full code Advance care planning +30 minutes I discussed with patient her condition, I discussed the patient tests and reports, I discussed with the patient the treatment plan, I discussed about the pending cultures Multiple electrolyte imbalances and the steps taken to correct them Patient has some questions , answered all of them , she verbalized understanding Preventive health care counseling; +30 minutes Strongly advised to comply with medications, diet, follow-up visits Also advised to keep the area around the port clean and dry to avoid infection Advised to continue oral diet as tolerated and PT TPN as needed She verbalized understanding Closely monitor the patient and adjust management as needed Plan of care reviewed with the patient and her nurse 11/24; follow cultures, follow-up shoulder x-ray report Port site cultures if there is infection 11/26; gram-positive bacteremia 2/2 Add vancomycin, continue Rocephin, follow culture sensitivities, ID consult Patient has TPN port, consider removing if needed History Interval history: I have seen and examined the patient at the bedside, patient's chart and medications reviewed Patient's blood cultures are positive for gram-positive cocci Patient complains of some irritation at the port site Afebrile, vital signs reviewed Hospitalist Physical - Constitutional Vitals: Temp Pulse Resp BP Pulse Ox 98.7 F 55 L 18 173/73 97 11/26/21 20:57 11/26/21 21:02 11/26/21 20:57 11/26/21 20:57 11/26/21 21:00 General appearance: Present: mild distress, well-nourished - EENT Eyes: Present: PERRL, EOM intact - Neck Neck: Present: supple, normal ROM - Respiratory Respiratory effort: normal, other (Port on the right chest wall) Respiratory: bilateral: diminished, negative: rales, rhonchi, wheezing - Cardiovascular Rhythm: regular Heart Sounds: Present: S1 & S2 - Extremities Extremities: no ischemia, No edema - Abdominal General gastrointestinal: soft, non-tender, non-distended - Integumentary Integumentary: Present: clear, warm - Psychiatric Psychiatric: appropriate mood/affect, cooperative - Neurologic Neurologic: moves all extremities HEART Score - HEART Score Troponin: Troponin T < 0.010 ng/mL (0.00-0.029) 11/22/21 22:02 Results - Labs CBC & Chem 7: 11/25/21 09:40 11/26/21 11:41 Labs: Laboratory Last Values WBC 7.3 K/mm3 (4.5-11.0) 11/24/21 06:18 RBC 3.32 M/mm3 (3.65-5.03) L 11/24/21 06:18 Hgb 10.0 gm/dl (10.1-14.3) L 11/25/21 09:40 Hct 30.8 % (30.3-42.9) 11/25/21 09:40 MCV 86 fl (79-97) 11/24/21 06:18 MCH 28 pg (28-32) 11/24/21 06:18 MCHC 32 % (30-34) 11/24/21 06:18 RDW 16.5 % (13.2-15.2) H 11/24/21 06:18 Plt Count 183 K/mm3 (140-440) 11/24/21 06:18 Lymph % (Auto) 14.9 % (13.4-35.0) 11/24/21 06:18 [place] % (Auto) 4.5 % (0.0-7.3) 11/24/21 06:18 Eos % (Auto) 2.7 % (0.0-4.3) 11/24/21 06:18 Baso % (Auto) 0.6 % (0.0-1.8) 11/24/21 06:18 Lymph # (Auto) 1.1 K/mm3 (1.2-5.4) L 11/24/21 06:18 [place] # (Auto) 0.3 K/mm3 (0.0-0.8) 11/24/21 06:18 Eos # (Auto) 0.2 K/mm3 (0.0-0.4) 11/24/21 06:18 Baso # (Auto) 0.0 K/mm3 (0.0-0.1) 11/24/21 06:18 Seg Neutrophils % 77.3 % (40.0-70.0) H 11/24/21 06:18 Seg Neutrophils # 5.6 K/mm3 (1.8-7.7) 11/24/21 06:18 Sodium 137 mmol/L (137-145) 11/26/21 11:41 Potassium 4.4 mmol/L (3.6-5.0) 11/26/21 11:41 Chloride 104.3 mmol/L (98-107) 11/26/21 11:41 Carbon Dioxide 26 mmol/L (22-30) 11/26/21 11:41 Anion Gap 11 mmol/L 11/26/21 11:41 BUN 7 mg/dL (7-17) 11/26/21 11:41 Creatinine 0.3 mg/dL (0.6-1.2) L 11/26/21 11:41 Estimated GFR > 60 ml/min 11/26/21 11:41 BUN/Creatinine Ratio 23 % 11/26/21 11:41 Glucose 92 mg/dL (65-100) 11/26/21 11:41 POC Glucose 111 mg/dL (70-105) H 11/26/21 16:06 Lactic Acid 1.90 mmol/L (0.7-2.0) 11/22/21 22:59 Calcium 8.0 mg/dL (8.4-10.2) L 11/26/21 11:41 Phosphorus 2.30 mg/dL (2.5-4.5) L 11/26/21 11:41 Magnesium 1.60 mg/dL (1.7-2.3) L 11/26/21 11:41 Total Bilirubin 0.40 mg/dL (0.1-1.2) 11/22/21 15:34 AST 52 units/L (5-40) H 11/22/21 15:34 ALT 44 units/L (7-56) 11/22/21 15:34 Alkaline Phosphatase 109 units/L (35-129) 11/22/21 15:34 Troponin T < 0.010 ng/mL (0.00-0.029) 11/22/21 22:02 Total Protein 6.5 g/dL (6.3-8.2) 11/22/21 15:34 Albumin 3.8 g/dL (3.9-5) L 11/22/21 15:34 Albumin/Globulin Ratio 1.4 % 11/22/21 15:34 Urine Color Yellow (Yellow) 11/22/21 20:47 Urine Turbidity Clear (Clear) 11/22/21 20:47 Specific [place] (Man) 1.015 (1.003-1.030) 11/22/21 20:47 Ur Protein (Man) 2+ mg/dL (Negative) 11/22/21 20:47 Ur Ketones (Man) Negative (Negative) 11/22/21 20:47 Ur Nitrite (Man) Negative (Negative) 11/22/21 20:47 Urine Bilirubin (Man) Negative (Negative) 11/22/21 20:47 Leukocyte Esterase (Man) Negative (Negative) 11/22/21 20:47 Urine WBC (Auto) 1.0 /HPF (0.0-6.0) 11/22/21 20:47 Urine RBC (Auto) 2.0 /HPF (0.0-6.0) 11/22/21 20:47 U Epithel Cells (Auto) 1.0 /HPF (0-13.0) 11/22/21 20:47 Urine RBC (Manual) 2+ (Negative) 11/22/21 20:47 Hyaline Casts 1 /LPF 11/22/21 20:47 Urine Mucus Few /HPF 11/22/21 20:47 Urine HCG, Qual Negative (Negative) 11/22/21 20:47 SARS-CoV-2 (PCR) Negative (Negative) 11/23/21 12:45 Microbiology: Microbiology 11/26/21 09:51 Peripheral/Venous Blood Culture - Preliminary Culture in Progress 11/26/21 07:27 Peripheral/Venous Blood Culture - Preliminary Culture in Progress Reddy/IV: Voiding Method Toilet Active Medications - Current Medications Current Medications: Generic Name Dose Route Start Last Admin Trade Name Freq PRN Reason Stop Dose Admin Acetaminophen 650 mg 11/23/21 04:49 Acetaminophen 325 Mg Tab PO Q4H PRN Pain MILD(1-3)/Fever >100.5/BLAIR Albuterol 2.5 mg 11/23/21 04:49 11/23/21 15:19 Albuterol 2.5 Mg/3 Ml Nebu IH 2.5 mg Q3HRT PRN Administration Shortness Of Breath Amitriptyline HCl 25 mg 11/23/21 22:00 11/26/21 21:01 Amitriptyline 25 Mg Tab PO 25 mg QHS RADHA Administration Amlodipine Besylate 10 mg 11/23/21 10:00 11/26/21 09:14 Amlodipine 10 Mg Tab PO 10 mg DAILY RADHA Administration Calcium Carbonate/Glycine 500 mg 11/24/21 09:00 Calcium Carbonate 500 Mg Tab Chew PO Q4H PRN Indigestion Carvedilol 12.5 mg 11/23/21 10:00 11/26/21 21:02 Carvedilol 12.5 Mg Tab PO Not Given BID RADHA Dicyclomine HCl 20 mg 11/24/21 10:00 11/26/21 09:15 Dicyclomine 20 Mg Tab PO 20 mg QDAY RADHA Administration Heparin Sodium (Porcine) 5,000 unit 11/23/21 10:00 11/26/21 21:03 Heparin 5,000 Unit/1 Ml Vial SUB-Q 5,000 unit Q12HR RADHA Administration Ceftriaxone Sodium 2 gm in 100 mls @ 200 mls/hr 11/23/21 10:00 11/26/21 09:14 Rocephin/Ns 2 Gm/100 Ml IV 200 mls/hr Q24HR RADHA Administration Protocol Amino Acids/Electrolytes/Dextrose 1,800 mls @ 0 mls/hr 11/26/21 20:00 11/26/21 20:53 Tpn Adult IV 11/27/21 08:01 100 mls/hr DAILY@2000 RADHA Administration Protocol As Directed Vancomycin HCl 750 mg/ Sodium 265 mls @ 166.667 mls/hr 11/27/21 06:00 Chloride IV Q12H RADHA Magnesium Oxide 400 mg 11/24/21 10:00 11/26/21 09:15 Magnesium Oxide 400 Mg Tab PO 400 mg QDAY RADHA Administration Methocarbamol 500 mg 11/23/21 10:00 11/26/21 09:15 Methocarbamol 500 Mg Tab PO 500 mg QDAY RADHA Administration Morphine Sulfate 2 mg 11/23/21 04:49 11/25/21 07:08 Morphine 2 Mg/1 Ml Inj IV 2 mg Q4H PRN Administration Pain, Moderate (4-6) Morphine Sulfate 4 mg 11/23/21 04:49 Morphine 4 Mg/1 Ml Inj IV Q4H PRN Pain , Severe (7-10) Ondansetron HCl 4 mg 11/23/21 04:49 Ondansetron 4 Mg/2 Ml Inj IV Q8H PRN Nausea And Vomiting Oxycodone/Acetaminophen 1 tab 11/25/21 15:00 11/27/21 01:15 Oxycodone /Acetaminophen 5-325mg Tab PO 1 tab Q6H PRN Administration Pain, Moderate (4-6) Sodium Chloride 10 ml 11/23/21 10:00 11/26/21 21:01 Sodium Chloride 0.9% 10 Ml Flush Syringe IV 10 ml BID RADHA Administration Sodium Chloride 10 ml 11/23/21 04:49 Sodium Chloride 0.9% 10 Ml Flush Syringe IV PRN PRN LINE FLUSH Nutrition/Malnutrition Assess - Dietary Evaluation Nutrition/Malnutrition Findings: Nutrition Notes Start: 11/23/21 16:23 Freq: Status: Active Protocol: Document 11/26/21 09:50 MARCIAL (Rec: 11/26/21 10:37 MARCIAL [id number]) Nutrition Notes Initial or Follow up Reassessment Current Diagnosis Hypertension Other Pertinent Diagnosis SIRS, Lactic Acidosis, Short Bowel Syndrome, Electrolyte Imbalance, ... Current Diet Cardiac Diet (since B 11/23), PPN @ 75 ml/hr (since D 11/23) . Labs/Tests 11/26: Crea 0.3, Ca 8.0, Phos 2.3, Mg 1.6. Pertinent Medications 11/26: Nutritionally unremarkable. Height 5 ft 2 in Weight 49.5 kg [place] Body Weight (kg) 50.00 BMI 19.9 Weight change and time frame 0.4 Kg body weight change in 1 day reported. Weight Status Appropriate Subjective/Other Information Day 3 TPN. Pt remains on cardiac diet/TPN . 100% Breakfast/Lunch 75% Dinner per RN over the phone. Pt is on Room Air, O2 saturation @ 100%, according to Physical Assessment History notes. Pt has missing teeth, according to Physical Assessment History notes. MD instructions to continue PPN along with PO diet, according to RN over the phone . Percent of energy/protein needs met: Prescribed Cardiac Diet provides for energy/protein needs (2,230 Kcal/85 g) during LOS. Prescribed PPN @ 75 ml/hr provides for energy/protein needs (750 Kcal/60 g) during LOS, 58% Kcal; 100% AA. Burn Absent Trauma Absent GI Symptoms Other Food Allergy No Skin Integrity/Comment Assessment WNL. Current % PO Good (75-100%) Minimum of two criteria No Fluid Accumulation N/A Reduced [employer] Conditioner Strength N/A (non-severe) Protein-Calorie Malnutrition N\A #1 Nutrition Diagnosis Altered GI function Diagnosis Progress(for reassessment Continues documentation) Is patient on ventilator? No Is Patient Ambulatory and/or Out of Bed Yes REE-([facility]-ambulatory/OOB) [ 1408.225 NUTR.[email or web address]] Kcal/Kg value to use for calculation 26 Approximate Energy Requirements Using 1287 kcal/Kg Calculation Used for Recommendations Kcal/kg Additional Notes Protein: 0.8-1 g/Kg ABW; 40-60 g/day. Fluids: 1 ml/Kcal, or as per MD. Nutrition Intervention Change Diet Order: Continue Cardiac Diet as tolerated. Nutrition Support: Continue PPN @ 75 ml/hr. 8.3% Dex, 3.3% AA, Mag 15 mEq, Phos 30 mEq, Ca 15 mEq. Kcal 750 Protein (gm) 60 Carbohydrates (gm) 150 Fat (gm) 0 Fluid (mL) 1,800 Fiber (gm) 0 % RDI: 58% Kcal; 100% AA. Goal #1 Provide at least 75% of energy /protein needs through Parenteral Feeding along with PO diet during LOS. Follow-Up By: 11/27/21 Additional Comments Monitor TPN tolerance, nutrition-related labs (BMP, Phos, Mg - Labs ordered), and wt status.
[2021-11-27] MEDS: VANCOMYCIN 750 MG in SODIUM CHLORIDE 0.9% 250ML 250 ML IV SCH ×2 (05:47→17:11)
[2021-11-27 08:28] LABS: Blood Urea Nitrogen 8 mg/dL (7-17); Calcium 7.6 mg/dL (8.4-10.2); Hemolysis Index 2
[2021-11-27 08:29] LABS: BUN/Creatinine Ratio 16
[2021-11-27] MEDS: carvediloL 12.5 MG TAB PO SCH ×2 (10:34→22:54)
[2021-11-27] MEDS: amLODIPine 10 MG TAB PO SCH (10:34)
[2021-11-27] MEDS: HEPARIN 5,000 UNIT/1 ML VIAL SUB-Q SCH ×2 (10:35→22:52)
[2021-11-27] MEDS: MAGNESIUM OXIDE 400 MG TAB PO SCH (10:35)
[2021-11-27] MEDS: DICYCLOMINE 20 MG TAB PO SCH (10:35)
[2021-11-27] MEDS: cefTRIAXone/NS 2 GM/100 ML 2 GM/100 ML BAG IV SCH (10:40)
--- NOTE | 2021-11-27 16:33 | Progress Note ---
Assessment and Plan Assessment and plan: -- Febrile illness; T-max 102.5 on admission , COVID-19 negative antipyretics, IV fluids, Empiric antibiotics Follow up blood and urine cultures --Gram-positive bacteremia 2/2 Currently on Vanco and Rocephin Awaiting organism identification and culture sensitivities ID evaluation recommendation noted and appreciated discussed with Dr. Sterling Griffiths, ID Recommended to continue Vanco DC Rocephin If culture grow staph aureus, patient's port/PICC need to be removed Follow culture sensitivities and supportive care --Sepsis; present on admission; Fever, tachycardia, lactic acidosis, gram-positive bacteremia Continue Vanco DC Rocephin per ID Continue TPN -Possible port/PICC infection Discussed with ID Dr. Sterling Griffiths, advised to continue current antibiotics Waiting for organ identification of the cultures and sensitivities If staph infection, port may need to be removed -Lactic acidosis;; Trending down -- Hypomagnesemia; Replenished with magnesium IV and oral Monitor electrolytes --Hypocalcemia; Replenished with calcium supplements Monitor electrolytes Pharmacy to adjust electrolytes in TPN --Left shoulder pain Pain medications, x-ray shoulder negative Consider PT if needed -Hypertension; moderate control resume home antihypertensives -- Short gut syndrome ; on long-term TPN, Continue supportive care --History of lupus; stable --Anterior chest wall port functional[patient does not have PICC line] Change the dressing of the port site, send cultures if there is any wound Continue TPN -- DVT prophylaxis Heparin 5000 units subcu every 12 hours for DVT prophylaxis. Pepcid 20 mg p.o. twice daily for GI prophylaxis. Patient is a full code Advance care planning +30 minutes I discussed with patient her condition, I discussed the patient tests and reports, I discussed with the patient the treatment plan, I discussed about the pending cultures Multiple electrolyte imbalances and the steps taken to correct them Patient has some questions , answered all of them , she verbalized understanding Preventive health care counseling; +30 minutes Strongly advised to comply with medications, diet, follow-up visits Also advised to keep the area around the port clean and dry to avoid infection Advised to continue oral diet as tolerated and PT TPN as needed She verbalized understanding Closely monitor the patient and adjust management as needed Plan of care reviewed with the patient and her significant other and her nurse 11/24; follow cultures, follow-up shoulder x-ray report Port site cultures if there is infection 11/26; gram-positive bacteremia 2/2 Add vancomycin, continue Rocephin, follow culture sensitivities, ID consult Patient has TPN port, consider removing if needed 11/27; follows ID evaluation recommendations Follow cultures organism identification and sensitivities if Staph infection, port needs to be removed per ID 11/28; cultures positive for staph aureus ID following. Recommended to DC PICC line Will start TPN, closely monitor culture sensitivities Disposition; follow clinically, follow ID, discharge when stable History Interval history: I have seen and examined the patient at the bedside this morning Patient's chart and medications reviewed Patient says she has some pain and irritation at the PICC line /port site PICC line is functional ,patient is receiving TPN No other complaints vital signs stable Patient's blood cultures are positive with gram positive cocci ID evaluation noted and appreciated Hospitalist Physical - Constitutional Vitals: Temp Pulse Resp BP Pulse Ox 98.7 F 55 L 18 173/73 100 11/26/21 20:57 11/26/21 21:02 11/26/21 20:57 11/26/21 20:57 11/27/21 10:00 General appearance: Present: no acute distress, mild distress, well-nourished - EENT Eyes: Present: PERRL, EOM intact - Neck Neck: Present: supple, normal ROM - Respiratory Respiratory effort: normal Respiratory: bilateral: diminished, negative: rales, rhonchi, wheezing - Cardiovascular Rhythm: regular Heart Sounds: Present: S1 & S2 - Extremities Extremities: no ischemia, No edema - Abdominal General gastrointestinal: soft, non-tender, non-distended, normal bowel sounds - Integumentary Integumentary: Present: clear, warm - Psychiatric Psychiatric: appropriate mood/affect, cooperative - Neurologic Neurologic: moves all extremities HEART Score - HEART Score Troponin: Troponin T < 0.010 ng/mL (0.00-0.029) 11/22/21 22:02 Results - Labs CBC & Chem 7: 11/25/21 09:40 11/28/21 12:32 Labs: Laboratory Last Values WBC 7.3 K/mm3 (4.5-11.0) 11/24/21 06:18 RBC 3.32 M/mm3 (3.65-5.03) L 11/24/21 06:18 Hgb 10.0 gm/dl (10.1-14.3) L 11/25/21 09:40 Hct 30.8 % (30.3-42.9) 11/25/21 09:40 MCV 86 fl (79-97) 11/24/21 06:18 MCH 28 pg (28-32) 11/24/21 06:18 MCHC 32 % (30-34) 11/24/21 06:18 RDW 16.5 % (13.2-15.2) H 11/24/21 06:18 Plt Count 183 K/mm3 (140-440) 11/24/21 06:18 Lymph % (Auto) 14.9 % (13.4-35.0) 11/24/21 06:18 Evans % (Auto) 4.5 % (0.0-7.3) 11/24/21 06:18 Eos % (Auto) 2.7 % (0.0-4.3) 11/24/21 06:18 Baso % (Auto) 0.6 % (0.0-1.8) 11/24/21 06:18 Lymph # (Auto) 1.1 K/mm3 (1.2-5.4) L 11/24/21 06:18 Evans # (Auto) 0.3 K/mm3 (0.0-0.8) 11/24/21 06:18 Eos # (Auto) 0.2 K/mm3 (0.0-0.4) 11/24/21 06:18 Baso # (Auto) 0.0 K/mm3 (0.0-0.1) 11/24/21 06:18 Seg Neutrophils % 77.3 % (40.0-70.0) H 11/24/21 06:18 Seg Neutrophils # 5.6 K/mm3 (1.8-7.7) 11/24/21 06:18 Sodium 136 mmol/L (137-145) L 11/27/21 07:22 Potassium 4.4 mmol/L (3.6-5.0) 11/27/21 07:22 Chloride 105.8 mmol/L (98-107) 11/27/21 07:22 Carbon Dioxide 22 mmol/L (22-30) 11/27/21 07:22 Anion Gap 13 mmol/L 11/27/21 07:22 BUN 8 mg/dL (7-17) 11/27/21 07:22 Creatinine 0.5 mg/dL (0.6-1.2) L D 11/27/21 07:22 Estimated GFR > 60 ml/min 11/27/21 07:22 BUN/Creatinine Ratio 16 % 11/27/21 07:22 Glucose 77 mg/dL (65-100) 11/27/21 07:22 POC Glucose 98 mg/dL (70-105) 11/27/21 16:25 Lactic Acid 1.90 mmol/L (0.7-2.0) 11/22/21 22:59 Calcium 7.6 mg/dL (8.4-10.2) L 11/27/21 07: Phosphorus 2.90 mg/dL (2.5-4.5) D 11/27/21 07:22 Magnesium 1.50 mg/dL (1.7-2.3) L 11/27/21 07:22 Total Bilirubin 0.40 mg/dL (0.1-1.2) 11/22/21 15:34 AST 52 units/L (5-40) H 11/22/21 15:34 ALT 44 units/L (7-56) 11/22/21 15:34 Alkaline Phosphatase 109 units/L (35-129) 11/22/21 15:34 Troponin T < 0.010 ng/mL (0.00-0.029) 11/22/21 22:02 Total Protein 6.5 g/dL (6.3-8.2) 11/22/21 15:34 Albumin 3.8 g/dL (3.9-5) L 11/22/21 15:34 Albumin/Globulin Ratio 1.4 % 11/22/21 15:34 Urine Color Yellow (Yellow) 11/22/21 20:47 Urine Turbidity Clear (Clear) 11/22/21 20:47 Specific [place] (Man) 1.015 (1.003-1.030) 11/22/21 20:47 Ur Protein (Man) 2+ mg/dL (Negative) 11/22/21 20:47 Ur Ketones (Man) Negative (Negative) 11/22/21 20:47 Ur Nitrite (Man) Negative (Negative) 11/22/21 20:47 Urine Bilirubin (Man) Negative (Negative) 11/22/21 20:47 Leukocyte Esterase (Man) Negative (Negative) 11/22/21 20:47 Urine WBC (Auto) 1.0 /HPF (0.0-6.0) 11/22/21 20:47 Urine RBC (Auto) 2.0 /HPF (0.0-6.0) 11/22/21 20:47 U Epithel Cells (Auto) 1.0 /HPF (0-13.0) 11/22/21 20:47 Urine RBC (Manual) 2+ (Negative) 11/22/21 20:47 Hyaline Casts 1 /LPF 11/22/21 20:47 Urine Mucus Few /HPF 11/22/21 20:47 Urine HCG, Qual Negative (Negative) 11/22/21 20:47 SARS-CoV-2 (PCR) Negative (Negative) 11/23/21 12:45 Microbiology: Microbiology 11/26/21 07:27 Peripheral/Venous Blood Culture - Preliminary 11/26/21 09:51 Peripheral/Venous Blood Culture - Preliminary NO GROWTH AFTER 24 HOURS Reddy/IV: Voiding Method Toilet Active Medications - Current Medications Current Medications: Generic Name Dose Route Start Last Admin Trade Name Freq PRN Reason Stop Dose Admin Acetaminophen 650 mg 11/23/21 04:49 Acetaminophen 325 Mg Tab PO Q4H PRN Pain MILD(1-3)/Fever >100.5/BLAIR Albuterol 2.5 mg 11/23/21 04:49 11/23/21 15:19 Albuterol 2.5 Mg/3 Ml Nebu IH 2.5 mg Q3HRT PRN Administration Shortness Of Breath Amitriptyline HCl 25 mg 11/23/21 22:00 11/26/21 21:01 Amitriptyline 25 Mg Tab PO 25 mg QHS RADHA Administration Amlodipine Besylate 10 mg 11/23/21 10:00 11/27/21 10:34 Amlodipine 10 Mg Tab PO 10 mg DAILY RADHA Administration Calcium Carbonate/Glycine 500 mg 11/24/21 09:00 Calcium Carbonate 500 Mg Tab Chew PO Q4H PRN Indigestion Carvedilol 12.5 mg 11/23/21 10:00 11/27/21 10:34 Carvedilol 12.5 Mg Tab PO 12.5 mg BID RADHA Administration Dicyclomine HCl 20 mg 11/24/21 10:00 11/27/21 10:35 Dicyclomine 20 Mg Tab PO 20 mg QDAY RADHA Administration Heparin Sodium (Porcine) 5,000 unit 11/23/21 10:00 11/27/21 10:35 Heparin 5,000 Unit/1 Ml Vial SUB-Q 5,000 unit Q12HR RADHA Administration Ceftriaxone Sodium 2 gm in 100 mls @ 200 mls/hr 11/23/21 10:00 11/27/21 10:40 Rocephin/Ns 2 Gm/100 Ml IV 200 mls/hr Q24HR RADHA Administration Protocol Vancomycin HCl 750 mg/ Sodium 265 mls @ 166.667 mls/hr 11/27/21 06:00 11/27/21 05:47 Chloride IV 166.667 mls/hr Q12H RADHA Administration Amino Acids/Electrolytes/Dextrose 1,800 mls @ 0 mls/hr 11/27/21 20:00 Tpn Adult IV 11/28/21 08:01 DAILY@1999 [facility] Protocol As Directed Magnesium Oxide 400 mg 11/24/21 10:00 11/27/21 10:35 Magnesium Oxide 400 Mg Tab PO 400 mg QDAY RADHA Administration Methocarbamol 500 mg 11/23/21 10:00 11/27/21 10:34 Methocarbamol 500 Mg Tab PO 500 mg QDAY [facility] Administration Morphine Sulfate 2 mg 11/23/21 04:49 11/25/21 07:08 Morphine 2 Mg/1 Ml Inj IV 2 mg Q4H PRN Administration Pain, Moderate (4-6) Morphine Sulfate 4 mg 11/23/21 04:49 Morphine 4 Mg/1 Ml Inj IV Q4H PRN Pain , Severe (7-10) Ondansetron HCl 4 mg 11/23/21 04:49 Ondansetron 4 Mg/2 Ml Inj IV Q8H PRN Nausea And Vomiting Oxycodone/Acetaminophen 1 tab 11/25/21 15:00 11/27/21 13:58 Oxycodone /Acetaminophen 5-325mg Tab PO 1 tab Q6H PRN Administration Pain, Moderate (4-6) Sodium Chloride 10 ml 11/23/21 10:00 11/27/21 10:34 Sodium Chloride 0.9% 10 Ml Flush Syringe IV 10 ml BID RADHA Administration Sodium Chloride 10 ml 11/23/21 04:49 Sodium Chloride 0.9% 10 Ml Flush Syringe IV PRN PRN LINE FLUSH Nutrition/Malnutrition Assess - Dietary Evaluation Nutrition/Malnutrition Findings: Nutrition Notes Start: 11/23/21 16:23 Freq: Status: Active Protocol: Document 11/27/21 10:26 MARCIAL (Rec: 11/27/21 10:54 MARCIAL [id number]) Nutrition Notes Initial or Follow up Reassessment Current Diagnosis Sepsis,Hypertension Other Pertinent Diagnosis Bacteremia, Lactic Acidosis, Short Bowel Syndrome, Hx Lupus . Current Diet Cardiac Diet (since B 11/23), PPN @ 75 ml/hr (since D 11/23) . Labs/Tests 11/27: Na 136, Crea 0.5, Ca 7. 6, Mg 1.5. Pertinent Medications 11/27: Nutritionaslly unremarkable. Height 5 ft 2 in Weight 49.8 kg [place] Body Weight (kg) 50.00 BMI 20.0 Weight change and time frame 0.3 Kg body weight gain in 1 day reported. Weight Status Appropriate Subjective/Other Information Day 4 TPN. Pt remains on cardiac diet/TPN . Pt's PO intake has been Good ( 100%) and well tolerated, according to ADL notes. Pt is on Room Air, O2 saturation @ 97%, according to Phytsical Assessment History notes. TPN stopped at 02:20 on 11/27 due to pain and discomfort at port site, according to RN notes. TPN is on hold due to Central Line malfunction, RN over the phone; will wait for line replacement or further MD instructions. 12:00 11/27: Port line fixed, TPN will continue per MD, according to RN over the phone ., Pt is possitive for bacteremia , according to Progress notes. Percent of energy/protein needs met: Prescribed Cardiac Diet provides for energy/protein needs (2,230 Kcal/85 g) during LOS. Prescribed PPN @ 75 ml/hr provides for energy/protein needs (750 Kcal/60 g) during LOS, 58% Kcal; 100% AA. Burn Absent Trauma Absent GI Symptoms Other Food Allergy No Skin Integrity/Comment Chest port irritation. 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 No Is Patient Ambulatory and/or Out of Bed Yes REE-([place]-St. Jeor-ambulatory/OOB) [ 1412.125 [id number]] Kcal/Kg value to use for calculation 26 Approximate Energy Requirements Using 1295 kcal/Kg Calculation Used for Recommendations Kcal/kg Additional Notes Protein: 0.8-1 g/Kg ABW; 40-60 g/day. Fluids: 1 ml/Kcal, or as per MD. Nutrition Intervention Change Diet Order: Continue Cardiac Diet as tolerated. Nutrition Support: Continue PPN @ 75 ml/hr. 8.3% Dex, 3.3% AA, Na 100 mEq, Mag 20 mEq, Ca 20 mEq. Kcal 750 Protein (gm) 60 Carbohydrates (gm) 150 Fat (gm) 0 Fluid (mL) 1,800 Fiber (gm) 0 % RDI: 58% Kcal; 100% AA. Goal #1 Provide at least 75% of energy /protein needs through Parenteral Feeding along with PO diet during LOS. Follow-Up By: 11/28/21 Additional Comments Monitor TPN tolerance, nutrition-related labs (BMP, Phos, Mg - Labs ordered), and wt status.
[2021-11-27] MEDS ORDERED: TOTAL PARENTERAL NUTRITION 1,800 ML IV SCH (20:00)
[2021-11-27] MEDS: AMITRIPTYLINE 25 MG TAB PO SCH (22:54)
[2021-11-28] MEDS: VANCOMYCIN 750 MG in SODIUM CHLORIDE 0.9% 250ML 250 ML IV SCH ×2 (07:59→17:14)
[2021-11-28] MEDS: oxyCODONE /ACETAMINOPHEN 5-325MG TAB PO PRN (08:01)
[2021-11-28] MEDS ORDERED: hydrALAZINE 20 MG/1 ML INJ IV PRN (08:13)
[2021-11-28] MEDS: MAGNESIUM OXIDE 400 MG TAB PO SCH (09:03)
[2021-11-28] MEDS: hydrALAZINE 10 MG TAB PO SCH ×3 (09:03→21:38)
[2021-11-28] MEDS: amLODIPine 10 MG TAB PO SCH (09:03)
[2021-11-28] MEDS: carvediloL 12.5 MG TAB PO SCH ×2 (09:03→21:38)
[2021-11-28] MEDS: DICYCLOMINE 20 MG TAB PO SCH (09:03)
[2021-11-28] MEDS: HEPARIN 5,000 UNIT/1 ML VIAL SUB-Q SCH ×2 (09:04→21:39)
[2021-11-28] MEDS: cefTRIAXone/NS 2 GM/100 ML 2 GM/100 ML BAG IV SCH (09:08)
--- NOTE | 2021-11-28 11:45 | Consultation ---
History of Present Illness - Reason for Consult Consult date: 11/28/21 - History of Present Illness 46-year-old female past medical history arthritis, bowel perforation due to previous ischemia, short gut syndrome, chronic PICC line for TPN presented to hospital complaining of generalized pain and fever. She was seen by home health who recommended that she come to the hospital due to the fevers. She was found to have bacteremia, as such we are consulted Febrile on admission of 1-2.5, white count normal negative COVID-19. Normal renal function. Blood cultures positive for gram-positive cocci in pairs. Imaging personally reviewed: Shoulder x-ray: No acute findings Chest x-ray: No pneumonia Review of Systems: Bold if positive, otherwise negative General: fevers, chills, rigors HEENT: visual disturbance, diplopia, eye pain Respiratory: cough, sputum, hemoptysis, shortness of breath Cardiovascular: chest pain, syncope Gastrointestinal: nausea, vomiting, diarrhea, abdominal pain Genitourinary: dysuria, hematuria, flank pain Musculoskeletal: neck pain, back pain, joint pain, edema Neurologic: headaches, seizures Hematologic: easy bruising or bleeding Endocrine: night sweats, acute weight loss Skin: rash, jaundice, redness Psychiatric: suicidal, homicidal ideation Past History Past Medical History: arthritis, DVT, other ( Bowel perforation due to ischemia. 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 Bowel resection) Social history: smoking Family history: hypertension Medications and Allergies Allergies Allergy/AdvReac Type Severity Reaction Status Date / Time oxycodone [From Percocet] Allergy Rash Verified 11/23/21 08:52 Home Medications Medication Instructions Recorded Confirmed Last Taken Type Albuterol Mdi (or & Nicu Only) 2 puff IH QID PRN #1 11/25/21 Unknown Rx [ProAir HFA Inhaler] Amitriptyline [Elavil] 25 mg PO QHS #30 11/25/21 Unknown Rx Celecoxib [celeBREX] 100 mg PO QDAY #30 cap 11/25/21 Unknown Rx Dicyclomine [Bentyl] 20 mg PO QDAY #30 11/25/21 Unknown Rx Loperamide [Imodium] 2 mg PO PRN PRN #30 cap 11/25/21 Unknown Rx amLODIPine 10 mg PO DAILY #60 tablet 11/25/21 Unknown Rx carvediloL [Coreg] 12.5 mg PO BID #60 tablet 11/25/21 Unknown Rx methOCARBAMOL [Robaxin TAB] 500 mg PO QDAY #30 tablet 11/25/21 Unknown Rx Active Meds: Active Medications Acetaminophen (Acetaminophen 325 Mg Tab) 650 mg PO Q4H PRN PRN Reason: Pain MILD(1-3)/Fever >100.5/BLAIR Albuterol (Albuterol 2.5 Mg/3 Ml Nebu) 2.5 mg IH Q3HRT PRN PRN Reason: Shortness Of Breath Last Admin: 11/23/21 15:19 Dose: 2.5 mg Amitriptyline HCl (Amitriptyline 25 Mg Tab) 25 mg PO QHS [facility] Last Admin: 11/27/21 22:54 Dose: 25 mg Amlodipine Besylate (Amlodipine 10 Mg Tab) 10 mg PO DAILY [facility] Last Admin: 11/28/21 09:03 Dose: 10 mg Calcium Carbonate/Glycine (Calcium Carbonate 500 Mg Tab Chew) 500 mg PO Q4H PRN PRN Reason: Indigestion Carvedilol (Carvedilol 12.5 Mg Tab) 12.5 mg PO BID [facility] Last Admin: 11/28/21 09:03 Dose: 12.5 mg Dicyclomine HCl (Dicyclomine 20 Mg Tab) 20 mg PO QDAY [facility] Last Admin: 11/28/21 09:03 Dose: 20 mg Heparin Sodium (Porcine) (Heparin 5,000 Unit/1 Ml Vial) 5,000 unit SUB-Q Q12HR [facility] Last Admin: 11/28/21 09:04 Dose: 5,000 unit Hydralazine HCl (Hydralazine 20 Mg/1 Ml Inj) 10 mg IV Q4HR PRN PRN Reason: Hypertension Hydralazine HCl (Hydralazine 10 Mg Tab) 10 mg PO Q8HR [facility] Last Admin: 11/28/21 09:03 Dose: 10 mg Ceftriaxone Sodium (Rocephin/Ns 2 Gm/100 Ml) 2 gm in 100 mls @ 200 mls/hr IV Q24HR [facility]; Protocol Last Admin: 11/28/21 09:08 Dose: 200 mls/hr Vancomycin HCl 750 mg/ Sodium (Chloride) 265 mls @ 166.667 mls/hr IV Q12H [facility] Last Admin: 11/28/21 07:59 Dose: 166.667 mls/hr Magnesium Oxide (Magnesium Oxide 400 Mg Tab) 400 mg PO QDAY [facility] Last Admin: 11/28/21 09:03 Dose: 400 mg Methocarbamol (Methocarbamol 500 Mg Tab) 500 mg PO QDAY [facility] Last Admin: 11/28/21 09:08 Dose: 500 mg Morphine Sulfate (Morphine 2 Mg/1 Ml Inj) 2 mg IV Q4H PRN PRN Reason: Pain, Moderate (4-6) Last Admin: 11/25/21 07:08 Dose: 2 mg Morphine Sulfate (Morphine 4 Mg/1 Ml Inj) 4 mg IV Q4H PRN PRN Reason: Pain , Severe (7-10) Ondansetron HCl (Ondansetron 4 Mg/2 Ml Inj) 4 mg IV Q8H PRN PRN Reason: Nausea And Vomiting Oxycodone/Acetaminophen (Oxycodone /Acetaminophen 5-325mg Tab) 1 tab PO Q6H PRN PRN Reason: Pain, Moderate (4-6) Last Admin: 11/28/21 08:01 Dose: 1 tab Sodium Chloride (Sodium Chloride 0.9% 10 Ml Flush Syringe) 10 ml IV BID [facility] Last Admin: 11/28/21 09:15 Dose: 10 ml Sodium Chloride (Sodium Chloride 0.9% 10 Ml Flush Syringe) 10 ml IV PRN PRN PRN Reason: LINE FLUSH Physical Examination - Physical Exam Narrative exam: Physical Exam: Constitutional: Alert, cooperative. No acute distress Head, Ears, Nose: Normocephalic, atraumatic. External ears, nose normal Eyes: Conjunctivae/corneas clear. No icterus. No ptosis. Neck: Supple, no meningeal signs Oral: dentition fair, no thrush Cardiovascular: S1, S2 normal. Respiratory: Good air entry, clear to auscultation bilaterally GI: Soft, non-tender; bowel sounds normal. No peritoneal signs. Musculoskeletal: Port in place right chest Skin: No rash or abscess Hem/Lymphatic: No palpable cervical or supraclavicular nodes. No lymphangitis Psych: Mood ok. Affect normal Neurological: Awake, alert, oriented. No gross abnormality - Constitutional Vitals: Vital Signs Temp Pulse Resp BP Pulse Ox 97.7 F 48 L 16 174/72 98 11/28/21 03:36 11/28/21 03:36 11/28/21 03:36 11/28/21 09:03 11/28/21 10:40 Temperature -Last 24 Hours Temperature 97.7 F Temperature 97.5 F Temperature 98.0 F Temperature 97.0 F Results - Labs CBC & Chem 7: 11/25/21 09:40 11/27/21 07:22 Labs: Abnormal lab results 11/27/21 Range/Units 11:26 POC Glucose 68 L (70-105) mg/dL Assessment and Plan Cultures: Blood culture 11/22/2021 gram-positive cocci in pairs 06/06 Blood culture 11/26/2021 gram-positive cocci 03/08 A/P: 46-year-old female past medical history ischemic gut status post resection, chronic PORT line now with: #Acute sepsis: Present with fevers, tachycardia on admission, quickly resolved with antibiotics. Secondary to bloodstream infection gram-positive cocci. #GPC bacteremia: Awaiting culture finalization, has been several days. GPC in pairs often strep, though will await culture finalization. Sepsis has resolved with antibiotics, port without acute tenderness or drainage. Pending culture finalization for potential retained port #Short gut syndrome: With chronic port Recs: -Stop ceftriaxone -Continue vancomycin goal trough 10-20 -Follow-up blood culture finalization -Ordered repeat blood cultures for a.m. -Check TTE -May need port removal if staph aureus Thank you for the consult, we will continue to follow. Alycia Katz MD [facility] O: [phone] F: [phone]
[2021-11-28 14:02] LABS: Blood Urea Nitrogen 12 mg/dL (7-17); Calcium 8.6 mg/dL (8.4-10.2); Hemolysis Index 3
[2021-11-28 14:08] LABS: BUN/Creatinine Ratio 30
[2021-11-28] MEDS: MORPHINE 2 MG/1 ML INJ IV PRN ×2 (17:31→23:34)
[2021-11-28] MEDS ORDERED: TOTAL PARENTERAL NUTRITION 1,800 ML IV SCH (20:00)
[2021-11-28] MEDS: AMITRIPTYLINE 25 MG TAB PO SCH (21:38)
[2021-11-29] MEDS: VANCOMYCIN 750 MG in SODIUM CHLORIDE 0.9% 250ML 250 ML IV SCH (06:00)
[2021-11-29] MEDS: MORPHINE 2 MG/1 ML INJ IV PRN ×4 (06:00→22:44)
[2021-11-29] MEDS: hydrALAZINE 10 MG TAB PO SCH ×4 (06:00→21:29)
[2021-11-29 06:28] LABS: Blood Urea Nitrogen 15 mg/dL (7-17); Calcium 8.4 mg/dL (8.4-10.2); Hemolysis Index 3
[2021-11-29 07:14] LABS: BUN/Creatinine Ratio 25
--- NOTE | 2021-11-29 07:51 | Progress Note ---
Assessment and Plan Assessment and plan: #Staph aureus bacteremia #Sepsis secondary to bacteremia -currently on vancomycin, will be converted to ancef per ID recommendations -BCx 11/22/2106/06 bottles: Staph aureus -BCx 11/26/2104/08 bottles: cogaulase negative staph, likely contaminant -TTE did not show vegetations -[place] port fell out on its own, Vascular surgery will be reconsulted for replacement after line holiday -pending line tip cultures -ID following, assistance appreciated #Lactic acidosis -resolved #Hyperkalemia #Hypomagnesemia #Hypocalcemia -Replenished with magnesium IV and oral -will continue to monitor and treat hyperkalemia #Left shoulder pain-resolved -continue Pain medications, x-ray shoulder negative #Hypertension; moderate control -continue #Short gut syndrome -will hold TPN until [place] replaced #Lupus-stable #Advanced care planning -Disease education conducted, care plan discussed, diagnoses discussed, prognosis discussed, and patient acknowledges understanding with care plan -Time: +30 min History Interval history: No acute events overnight. Patient reports that port was taken out by nurse earlier today and she was visited by her vascular surgeon. She continues to have itching at the site of old port. She has no acute complaints at this time. Hospitalist Physical - Physical exam Narrative exam: GENERAL: Thin woman. In no acute distress. HEENT: Normocephalic. Atraumatic. NECK: Supple. CHEST/LUNGS: CTAB on room air. L chest site of old port dressed, mildly TTP. HEART/CARDIOVASCULAR: RRR. No murmur, rubs or gallops appreciated. ABDOMEN: +BS. NT/ND. NEURO: No focal motor deficit. Follows all commands. MUSCULOSKELETAL: No joint effusion EXTREMITIES: No cyanosis, clubbing or edema. PSYCH: Cooperative. - Constitutional Vitals: Temp Pulse Resp BP Pulse Ox 98.6 F 45 L 20 146/84 98 11/29/21 04:32 11/29/21 06:00 11/29/21 04:32 11/29/21 06:00 11/29/21 04:32 HEART Score - HEART Score Troponin: Troponin T < 0.010 ng/mL (0.00-0.029) 11/22/21 22:02 Results - Labs CBC & Chem 7: 11/25/21 09:40 11/29/21 05:09 Labs: Laboratory Last Values WBC 7.3 K/mm3 (4.5-11.0) 11/24/21 06:18 RBC 3.32 M/mm3 (3.65-5.03) L 11/24/21 06:18 Hgb 10.0 gm/dl (10.1-14.3) L 11/25/21 09:40 Hct 30.8 % (30.3-42.9) 11/25/21 09:40 MCV 86 fl (79-97) 11/24/21 06:18 MCH 28 pg (28-32) 11/24/21 06:18 MCHC 32 % (30-34) 11/24/21 06:18 RDW 16.5 % (13.2-15.2) H 11/24/21 06:18 Plt Count 183 K/mm3 (140-440) 11/24/21 06:18 Lymph % (Auto) 14.9 % (13.4-35.0) 11/24/21 06:18 [place] % (Auto) 4.5 % (0.0-7.3) 11/24/21 06:18 Eos % (Auto) 2.7 % (0.0-4.3) 11/24/21 06:18 Baso % (Auto) 0.6 % (0.0-1.8) 11/24/21 06:18 Lymph # (Auto) 1.1 K/mm3 (1.2-5.4) L 11/24/21 06:18 [place] # (Auto) 0.3 K/mm3 (0.0-0.8) 11/24/21 06:18 Eos # (Auto) 0.2 K/mm3 (0.0-0.4) 11/24/21 06:18 Baso # (Auto) 0.0 K/mm3 (0.0-0.1) 11/24/21 06:18 Seg Neutrophils % 77.3 % (40.0-70.0) H 11/24/21 06:18 Seg Neutrophils # 5.6 K/mm3 (1.8-7.7) 11/24/21 06:18 Sodium 138 mmol/L (137-145) 11/29/21 05:09 Potassium 5.4 mmol/L (3.6-5.0) H D 11/29/21 05:09 Chloride 109.7 mmol/L (98-107) H 11/29/21 05:09 Carbon Dioxide 19 mmol/L (22-30) L 11/29/21 05:09 Anion Gap 15 mmol/L 11/29/21 05:09 BUN 15 mg/dL (7-17) 11/29/21 05:09 Creatinine 0.6 mg/dL (0.6-1.2) 11/29/21 05:09 Estimated GFR > 60 ml/min 11/29/21 05:09 BUN/Creatinine Ratio 25 % 11/29/21 05:09 Glucose 80 mg/dL (65-100) 11/29/21 05:09 POC Glucose 99 mg/dL (70-105) 11/28/21 23:21 Lactic Acid 1.90 mmol/L (0.7-2.0) 11/22/21 22:59 Calcium 8.4 mg/dL (8.4-10.2) 11/29/21 05:09 Phosphorus 3.50 mg/dL (2.5-4.5) 11/29/21 05:09 Magnesium 1.40 mg/dL (1.7-2.3) L 11/29/21 05:09 Total Bilirubin 0.40 mg/dL (0.1-1.2) 11/22/21 15:34 AST 52 units/L (5-40) H 11/22/21 15:34 ALT 44 units/L (7-56) 11/22/21 15:34 Alkaline Phosphatase 109 units/L (35-129) 11/22/21 15:34 Troponin T < 0.010 ng/mL (0.00-0.029) 11/22/21 22:02 Total Protein 6.5 g/dL (6.3-8.2) 11/22/21 15:34 Albumin 3.8 g/dL (3.9-5) L 11/22/21 15:34 Albumin/Globulin Ratio 1.4 % 11/22/21 15:34 Urine Color Yellow (Yellow) 11/22/21 20:47 Urine Turbidity Clear (Clear) 11/22/21 20:47 Specific [place] (Man) 1.015 (1.003-1.030) 11/22/21 20:47 Ur Protein (Man) 2+ mg/dL (Negative) 11/22/21 20:47 Ur Ketones (Man) Negative (Negative) 11/22/21 20:47 Ur Nitrite (Man) Negative (Negative) 11/22/21 20:47 Urine Bilirubin (Man) Negative (Negative) 11/22/21 20:47 Leukocyte Esterase (Man) Negative (Negative) 11/22/21 20:47 Urine WBC (Auto) 1.0 /HPF (0.0-6.0) 11/22/21 20:47 Urine RBC (Auto) 2.0 /HPF (0.0-6.0) 11/22/21 20:47 U Epithel Cells (Auto) 1.0 /HPF (0-13.0) 11/22/21 20:47 Urine RBC (Manual) 2+ (Negative) 11/22/21 20:47 Hyaline Casts 1 /LPF 11/22/21 20:47 Urine Mucus Few /HPF 11/22/21 20:47 Urine HCG, Qual Negative (Negative) 11/22/21 20:47 Vancomycin Trough 9.5 ug/mL (5.0-20.0) 11/29/21 05:09 SARS-CoV-2 (PCR) Negative (Negative) 11/23/21 12:45 Microbiology: Microbiology 11/22/21 21:35 Peripheral/Venous Blood Culture - Final Staphylococcus Aureus 11/22/21 21:35 Peripheral/Venous Blood Culture - Final Staphylococcus Aureus 11/26/21 07:27 Peripheral/Venous Blood Culture - Preliminary Coag Negative Staphylococcus 11/26/21 09:51 Peripheral/Venous Blood Culture - Preliminary NO GROWTH AFTER 48 HOURS Reddy/IV: Voiding Method Toilet Active Medications - Current Medications Current Medications: Generic Name Dose Route Start Last Admin Trade Name Freq PRN Reason Stop Dose Admin Acetaminophen 650 mg 11/23/21 04:49 Acetaminophen 325 Mg Tab PO Q4H PRN Pain MILD(1-3)/Fever >100.5/BLAIR Albuterol 2.5 mg 11/23/21 04:49 11/23/21 15:19 Albuterol 2.5 Mg/3 Ml Nebu IH 2.5 mg Q3HRT PRN Administration Shortness Of Breath Amitriptyline HCl 25 mg 11/23/21 22:00 09/26/22 21:38 Amitriptyline 25 Mg Tab PO 25 mg QHS RADHA Administration Amlodipine Besylate 10 mg 11/23/21 10:00 11/28/21 09:03 Amlodipine 10 Mg Tab PO 10 mg DAILY RADHA Administration Calcium Carbonate/Glycine 500 mg 11/24/21 09:00 Calcium Carbonate 500 Mg Tab Chew PO Q4H PRN Indigestion Carvedilol 12.5 mg 11/23/21 10:00 11/28/21 21:38 Carvedilol 12.5 Mg Tab PO 12.5 mg BID RADHA Administration Dicyclomine HCl 20 mg 11/24/21 10:00 11/28/21 09:03 Dicyclomine 20 Mg Tab PO 20 mg QDAY [facility] Administration Heparin Sodium (Porcine) 5,000 unit 11/23/21 10:00 11/28/21 21:39 Heparin 5,000 Unit/1 Ml Vial SUB-Q 5,000 unit Q12HR RADHA Administration Hydralazine HCl 10 mg 11/28/21 08:13 Hydralazine 20 Mg/1 Ml Inj IV Q4HR PRN Hypertension Hydralazine HCl 10 mg 11/28/21 08:20 11/29/21 06:00 Hydralazine 10 Mg Tab PO 10 mg Q8HR RADHA Administration Vancomycin HCl 750 mg/ Sodium 265 mls @ 166.667 mls/hr 11/27/21 06:00 11/29/21 06:00 Chloride IV 166.667 mls/hr Q12H RADHA Administration Amino Acids/Electrolytes/Dextrose 1,800 mls @ 0 mls/hr 11/28/21 20:00 21:40 Tpn Adult IV 11/29/21 08:01 Not Given DAILY@1999 [facility] Protocol As Directed Magnesium Oxide 400 mg 11/24/21 10:00 11/28/21 09:03 Magnesium Oxide 400 Mg Tab PO 400 mg QDAY RADHA Administration Methocarbamol 500 mg 11/23/21 10:00 11/28/21 09:08 Methocarbamol 500 Mg Tab PO 500 mg QDAY [facility] Administration Morphine Sulfate 2 mg 11/23/21 04:49 11/29/21 06:00 Morphine 2 Mg/1 Ml Inj IV 2 mg Q4H PRN Administration Pain, Moderate (4-6) Morphine Sulfate 4 mg 11/23/21 04:49 Morphine 4 Mg/1 Ml Inj IV Q4H PRN Pain , Severe (7-10) Ondansetron HCl 4 mg 11/23/21 04:49 Ondansetron 4 Mg/2 Ml Inj IV Q8H PRN Nausea And Vomiting Oxycodone/Acetaminophen 1 tab 11/25/21 15:00 11/28/21 08:01 Oxycodone /Acetaminophen 5-325mg Tab PO 1 tab Q6H PRN Administration Pain, Moderate (4-6) Sodium Chloride 10 ml 11/23/21 10:00 11/28/21 21:39 Sodium Chloride 0.9% 10 Ml Flush Syringe IV 10 ml BID RADHA Administration Sodium Chloride 10 ml 11/23/21 04:49 Sodium Chloride 0.9% 10 Ml Flush Syringe IV PRN PRN LINE FLUSH Nutrition/Malnutrition Assess - Dietary Evaluation Nutrition/Malnutrition Findings: Nutrition Notes Start: 11/23/21 16:23 Freq: Status: Active Protocol: Document 11/29/21 07:21 CM (Rec: 11/29/21 07:23 CM [id number]) Co-Sign 11/29/21 07:21 WW Nutrition Notes Initial or Follow up Reassessment Current Diagnosis Sepsis,Hypertension Other Pertinent Diagnosis Short Bowel Syndrome Current Diet Regular Diet/TPN/PPN Labs/Tests 11/29: Na 138 Cl 109.7 CO2 19 BUN 15 Glu 80 Ca 8.4 Phos 3.5 Mg 1.4 Pertinent Medications 11/29: Medications reviewed Height 5 ft 2 in Weight 52.8 kg [place] Body Weight (kg) 50.00 BMI 21.2 Weight Status Appropriate Burn Absent Trauma Absent Food Allergy No #1 Nutrition Diagnosis Altered GI function Diagnosis Progress(for reassessment Continues documentation) Is patient on ventilator? No Is Patient Ambulatory and/or Out of Bed Yes REE-([place]-St. Jeor-ambulatory/OOB) [ 1451.125 NUTR.MSJOOB] Kcal/Kg value to use for calculation 33 Approximate Energy Requirements Using 1742 kcal/Kg Calculation Used for Recommendations Kcal/kg Nutrition Intervention Change Diet Order: Continue regular diet
[2021-11-29] MEDS: MAGNESIUM OXIDE 400 MG TAB PO SCH (10:17)
[2021-11-29] MEDS: HEPARIN 5,000 UNIT/1 ML VIAL SUB-Q SCH ×3 (10:17→21:30)
[2021-11-29] MEDS: carvediloL 12.5 MG TAB PO SCH ×3 (10:17→21:29)
[2021-11-29] MEDS: amLODIPine 10 MG TAB PO SCH (10:17)
[2021-11-29] MEDS: DICYCLOMINE 20 MG TAB PO SCH (10:17)
--- NOTE | 2021-11-29 10:59 | Consultation ---
History of Present Illness - Reason for Consult Consult date: 11/29/21 Tunneled line removal Requesting physician: ORLANDO NAYAK - History of Present Illness 46-year-old female past medical history arthritis, bowel perforation due to previous ischemia, short gut syndrome, chronic PICC line for TPN presented to hospital complaining of generalized pain and fever. She was seen by home health who recommended that she come to the hospital due to the fevers. She was found to have bacteremia. Vascular consulted for line removal. The line fell out the evening prior during a dressing change of the right internal jugular tunneled PICC line. Likely secondary to proteolytic enzymes from infection. Discussed with patient who understands and agrees. Plan will be to place new tunneled line once cleared by ID. Review of Systems: Bold if positive, otherwise negative General: fevers, chills, rigors HEENT: visual disturbance, diplopia, eye pain Respiratory: cough, sputum, hemoptysis, shortness of breath Cardiovascular: chest pain, syncope Gastrointestinal: nausea, vomiting, diarrhea, abdominal pain Genitourinary: dysuria, hematuria, flank pain Musculoskeletal: neck pain, back pain, joint pain, edema Neurologic: headaches, seizures Hematologic: easy bruising or bleeding Endocrine: night sweats, acute weight loss Skin: rash, jaundice, redness Psychiatric: suicidal, homicidal ideation Past History Past Medical History: arthritis, DVT, other ( Bowel perforation due to ischemia. 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 Bowel resection) Social history: smoking Family history: hypertension Medications and Allergies Allergies Allergy/AdvReac Type Severity Reaction Status Date / Time oxycodone [From Percocet] Allergy Rash Verified 11/23/21 08:52 Home Medications Medication Instructions Recorded Confirmed Last Taken Type Albuterol Mdi (or & Nicu Only) 2 puff IH QID PRN #1 11/25/21 Unknown Rx [ProAir HFA Inhaler] Amitriptyline [Elavil] 25 mg PO QHS #30 11/25/21 Unknown Rx Celecoxib [celeBREX] 100 mg PO QDAY #30 cap 11/25/21 Unknown Rx Dicyclomine [Bentyl] 20 mg PO QDAY #30 11/25/21 Unknown Rx Loperamide [Imodium] 2 mg PO PRN PRN #30 cap 11/25/21 Unknown Rx amLODIPine 10 mg PO DAILY #60 tablet 11/25/21 Unknown Rx carvediloL [Coreg] 12.5 mg PO BID #60 tablet 11/25/21 Unknown Rx methOCARBAMOL [Robaxin TAB] 500 mg PO QDAY #30 tablet 11/25/21 Unknown Rx Active Meds: Active Medications Acetaminophen (Acetaminophen 325 Mg Tab) 650 mg PO Q4H PRN PRN Reason: Pain MILD(1-3)/Fever >100.5/BLAIR Albuterol (Albuterol 2.5 Mg/3 Ml Nebu) 2.5 mg IH Q3HRT PRN PRN Reason: Shortness Of Breath Last Admin: 11/23/21 15:19 Dose: 2.5 mg Amitriptyline HCl (Amitriptyline 25 Mg Tab) 25 mg PO QHS [facility] Last Admin: 11/28/21 21:38 Dose: 25 mg Amlodipine Besylate (Amlodipine 10 Mg Tab) 10 mg PO DAILY [facility] Last Admin: 11/29/21 10:17 Dose: 10 mg Calcium Carbonate/Glycine (Calcium Carbonate 500 Mg Tab Chew) 500 mg PO Q4H PRN PRN Reason: Indigestion Carvedilol (Carvedilol 12.5 Mg Tab) 12.5 mg PO BID [facility] Last Admin: 11/29/21 10:17 Dose: 12.5 mg Dicyclomine HCl (Dicyclomine 20 Mg Tab) 20 mg PO QDAY [facility] Last Admin: 11/29/21 10:17 Dose: 20 mg Heparin Sodium (Porcine) (Heparin 5,000 Unit/1 Ml Vial) 5,000 unit SUB-Q Q12HR [facility] Last Admin: 11/29/21 10:17 Dose: 5,000 unit Hydralazine HCl (Hydralazine 20 Mg/1 Ml Inj) 10 mg IV Q4HR PRN PRN Reason: Hypertension Hydralazine HCl (Hydralazine 10 Mg Tab) 10 mg PO Q8HR [facility] Last Admin: 11/29/21 06:00 Dose: 10 mg Vancomycin HCl (Vancomycin/Ns 1 Gm/250 Ml) 1 gm in 250 mls @ 167.007 mls/hr IV Q12H [facility] Magnesium Oxide (Magnesium Oxide 400 Mg Tab) 400 mg PO QDAY [facility] Last Admin: 11/29/21 10:17 Dose: 400 mg Methocarbamol (Methocarbamol 500 Mg Tab) 500 mg PO QDAY [facility] Last Admin: 11/29/21 10:17 Dose: 500 mg Morphine Sulfate (Morphine 2 Mg/1 Ml Inj) 2 mg IV Q4H PRN PRN Reason: Pain, Moderate (4-6) Last Admin: 11/29/21 06:00 Dose: 2 mg Morphine Sulfate (Morphine 4 Mg/1 Ml Inj) 4 mg IV Q4H PRN PRN Reason: Pain , Severe (7-10) Ondansetron HCl (Ondansetron 4 Mg/2 Ml Inj) 4 mg IV Q8H PRN PRN Reason: Nausea And Vomiting Oxycodone/Acetaminophen (Oxycodone /Acetaminophen 5-325mg Tab) 1 tab PO Q6H PRN PRN Reason: Pain, Moderate (4-6) Last Admin: 11/28/21 08:01 Dose: 1 tab Sodium Chloride (Sodium Chloride 0.9% 10 Ml Flush Syringe) 10 ml IV BID [facility] Last Admin: 11/29/21 10:18 Dose: 10 ml Sodium Chloride (Sodium Chloride 0.9% 10 Ml Flush Syringe) 10 ml IV PRN PRN PRN Reason: LINE FLUSH Exam - Constitutional Vitals: Temp Pulse Resp BP Pulse Ox 98.6 F 45 L 20 154/84 98 11/29/21 04:32 11/29/21 06:00 11/29/21 04:32 11/29/21 10:17 11/29/21 04:32 General appearance: Present: no acute distress - EENT Eyes: Present: EOM intact ENT: hearing intact - Neck Neck: Present: other (Dressing over right neck,Present. Some dark discoloration of the surrounding skin secondary to prior infection per patient.) - Respiratory Respiratory effort: normal - Extremities Extremities: normal temperature, normal color - Abdominal General gastrointestinal: Present: soft, non-tender - Psychiatric Psychiatric: appropriate mood/affect, cooperative Results - Labs CBC & Chem 7: 11/25/21 09:40 11/29/21 05:09 Labs: Abnormal lab results 11/28/21 11/29/21 Range/Units 12:32 05:09 Potassium 5.4 H D (3.6-5.0) mmol/L Chloride 109.7 H (98-107) mmol/L Carbon Dioxide 19 L (22-30) mmol/L Creatinine 0.4 L (0.6-1.2) mg/dL Glucose 106 H (65-100) mg/dL Magnesium 1.40 L (1.7-2.3) mg/dL Assessment and Plan 46-year-old female with prior ischemic bowel requiring extensive resection now TPN dependent. TPN line has become infected and line spontaneously fell out. Once patient eligible for new tunneled line placement, please contact vascular. Consider PPN in the interim.
--- NOTE | 2021-11-29 11:07 | Progress Note ---
Assessment and Plan Cultures: 11/22/2021 blood culture: MSSA 11/26/2021 blood culture: 1 out of 4 bottles with coagulase-negative staph A/P: 46-year-old female past medical history ischemic gut status post resection, chronic PORT line now with: #Sepsis secondary to bloodstream infection from MSSA #MSSA bacteremia: Likely secondary to port infection, removed. TTE without any obvious valvular vegetations. Repeat blood cultures with 1 out of 4 bottles growing coagulase-negative staph, likely contaminant #Short gut syndrome: With chronic port, on TPN. Follows at [place]. Recs: -Switched to IV Ancef -Vancomycin discontinued -OPAT orders placed for manager of case management, continue IV Ancef 2 g every 8 hours for 4 weeks with end date of 12/27/2021 -if she remains afebrile tomorrow, insert PICC and discharge once abx are arranged -follow up with her docs at [facility] for future placement of PORT and PICC removal Discussed with Dr. Salazar. Nathaly Reyes MD, FACP, [facility] O: [phone] F: [phone] C: [phone] Subjective Date of service: 11/29/21 Interval history: No fever. No new complaints. Got her port removed. Objective - Exam Narrative Exam: Physical Exam: Constitutional: Alert, cooperative. No acute distress Head, Ears, Nose: Normocephalic, atraumatic. External ears, nose normal Eyes: Conjunctivae/corneas clear. No icterus. No ptosis. Neck: Supple, no meningeal signs Cardiovascular: S1, S2 + Respiratory: Good air entry, clear to auscultation bilaterally GI: Soft, non-tender; bowel sounds normal. No peritoneal signs Musculoskeletal: No pedal edema, no cyanosis. Right upper chest tenderness present Skin: No rash or abscess Hem/Lymphatic: No palpable cervical or supraclavicular nodes. No lymphangitis Psych: Mood ok. Affect normal Neurological: Awake, alert, oriented. No gross abnormality - Constitutional Vitals: Vital Signs Temp Pulse Resp BP Pulse Ox 98.8 F 52 L 16 163/79 99 11/29/21 10:45 11/29/21 10:45 11/29/21 10:45 11/29/21 10:45 11/29/21 10:45 Temperature -Last 24 Hours Temperature 98.8 F Temperature 98.6 F Temperature 98.5 F Temperature 98.4 F - Labs CBC & Chem 7: 11/25/21 09:40 11/29/21 05:09 Labs: Abnormal lab results 11/28/21 11/29/21 Range/Units 12:32 05:09 Potassium 5.4 H D (3.6-5.0) mmol/L Chloride 109.7 H (98-107) mmol/L Carbon Dioxide 19 L (22-30) mmol/L Creatinine 0.4 L (0.6-1.2) mg/dL Glucose 106 H (65-100) mg/dL Magnesium 1.40 L (1.7-2.3) mg/dL
[2021-11-29] MEDS ORDERED: MAGNESIUM SULFATE 2 GM/50 ML BAG IV ONE (13:00)
[2021-11-29] MEDS: ceFAZolin/NS 2 GM/100 ML 2 GM/100 ML BAG IV SCH ×2 (14:52→20:57)
[2021-11-29] MEDS ORDERED: VANCOMYCIN/NS 1 GM/250 ML 1 GM/250 ML BAG IV SCH (18:00)
[2021-11-29] MEDS ORDERED: TOTAL PARENTERAL NUTRITION 2,000 ML IV SCH ×2 (20:00)
[2021-11-29] MEDS: AMITRIPTYLINE 25 MG TAB PO SCH ×2 (20:57→21:30)
[2021-11-30] MEDS: MORPHINE 2 MG/1 ML INJ IV PRN ×4 (06:14→23:59)
[2021-11-30] MEDS: ceFAZolin/NS 2 GM/100 ML 2 GM/100 ML BAG IV SCH ×3 (06:15→21:32)
[2021-11-30] MEDS: hydrALAZINE 10 MG TAB PO SCH ×3 (06:15→21:36)
[2021-11-30 07:14] LABS: Blood Urea Nitrogen 17 mg/dL (7-17); Calcium 8.6 mg/dL (8.4-10.2); Hemolysis Index 1
[2021-11-30 07:20] LABS: BUN/Creatinine Ratio 34
[2021-11-30] MEDS: MAGNESIUM OXIDE 400 MG TAB PO SCH (10:31)
[2021-11-30] MEDS: DICYCLOMINE 20 MG TAB PO SCH (10:31)
[2021-11-30] MEDS: HEPARIN 5,000 UNIT/1 ML VIAL SUB-Q SCH ×2 (10:31→21:37)
[2021-11-30] MEDS: amLODIPine 10 MG TAB PO SCH (10:33)
[2021-11-30] MEDS: carvediloL 12.5 MG TAB PO SCH ×2 (10:33→21:59)
--- NOTE | 2021-11-30 10:45 | Progress Note ---
Assessment and Plan Cultures: 11/22/2021 blood culture: MSSA 11/26/2021 blood culture: 1 out of 4 bottles with coagulase-negative staph 11/29/2021 blood culture: In process A/P: 46-year-old female past medical history ischemic gut status post resection, chronic PORT line now with: #Sepsis secondary to bloodstream infection from MSSA #MSSA bacteremia: Likely secondary to port/tunneled line infection, spontaneously fell out. TTE without any obvious valvular vegetations. Repeat blood cultures with 1 out of 4 bottles growing coagulase-negative staph, likely contaminant #Short gut syndrome: With chronic port, on TPN. Follows at [place]. Recs: -continue IV Ancef -OPAT orders placed for case maker, continue IV Ancef 2 g every 8 hours for 4 weeks with end date of 12/27/2021 -OK to insert PICC and discharge once abx are arranged -follow up with her docs at [place] Nathaly Reyes MD, [facility] O: [phone] F: [phone] C: [phone] Subjective Date of service: 11/30/21 Interval history: No fever. No new complaints. Pain at her previous line site is much better. Objective - Exam Narrative Exam: Physical Exam: Constitutional: Alert, cooperative. No acute distress Head, Ears, Nose: Normocephalic, atraumatic. External ears, nose normal Eyes: Conjunctivae/corneas clear. No icterus. No ptosis. Neck: Supple, no meningeal signs Cardiovascular: S1, S2 + Respiratory: Good air entry, clear to auscultation bilaterally GI: Soft, non-tender; bowel sounds normal. No peritoneal signs Musculoskeletal: No pedal edema, no cyanosis. Right upper chest tenderness improved Skin: No rash or abscess Hem/Lymphatic: No palpable cervical or supraclavicular nodes. No lymphangitis Psych: Mood ok. Affect normal Neurological: Awake, alert, oriented. No gross abnormality - Constitutional Vitals: Vital Signs Temp Pulse Resp BP Pulse Ox 97.9 F 62 18 142/64 100 11/30/21 05:06 11/30/21 10:33 11/30/21 05:06 11/30/21 10:33 11/30/21 05:06 Temperature -Last 24 Hours Temperature 97.9 F Temperature 98.2 F Temperature 98.8 F - Labs CBC & Chem 7: 11/25/21 09:40 11/30/21 06:06 Labs: Abnormal lab results 11/29/21 11/30/21 Range/Units 23:14 06:06 Potassium 5.2 H (3.6-5.0) mmol/L Chloride 111.4 H (98-107) mmol/L Carbon Dioxide 17 L (22-30) mmol/L Creatinine 0.5 L (0.6-1.2) mg/dL POC Glucose 118 H (70-105) mg/dL
--- NOTE | 2021-11-30 11:30 | Progress Note ---
Assessment and Plan Assessment and plan: #Methacillin sensitive Staph aureus bacteremia #Sepsis secondary to bacteremia -currently on vancomycin, will be converted to ancef per ID recommendations -BCx 11/22/2106/06 bottles: Staph aureus -BCx 11/26/21 2 bottles: cogaulase negative staph, likely contaminant -TTE did not show vegetations -[place] port fell out on its own, Vascular surgery will be reconsulted for replacement after line holiday -pending line tip cultures -ID following, assistance appreciated #Lactic acidosis -resolved #Hyperkalemia #Hypomagnesemia #Hypocalcemia -Replenished with magnesium IV and oral -will continue to monitor and treat hyperkalemia #Left shoulder pain-resolved -continue Pain medications, x-ray shoulder negative #Hypertension; moderate control -continue #Short gut syndrome -continue TPN -will have PICC line and Port replaced prior to discharge #Lupus-stable #Advanced care planning -Disease education conducted, care plan discussed, diagnoses discussed, prognosis discussed, and patient acknowledges understanding with care plan -Time: +30 min History Interval history: No acute events overnight. Patient complains of R arm tenderness and swelling that began after IV infiltration overnight. Otherwise she is doing well. We discussed current care plan. Hospitalist Physical - Physical exam Narrative exam: GENERAL: Thin woman. In no acute distress. HEENT: Normocephalic. Atraumatic. NECK: Supple. CHEST/LUNGS: CTAB on room air. L chest site of old port dressed, no TTP. HEART/CARDIOVASCULAR: RRR. No murmur, rubs or gallops appreciated. ABDOMEN: +BS. NT/ND. NEURO: No focal motor deficit. Follows all commands. MUSCULOSKELETAL: R arm TTP at site of old IV. EXTREMITIES: No cyanosis, clubbing or edema. PSYCH: Cooperative. - Constitutional Vitals: Temp Pulse Resp BP Pulse Ox 97.9 F 62 18 142/64 100 11/30/21 05:06 11/30/21 10:33 11/30/21 05:06 11/30/21 10:33 11/30/21 05:06 HEART Score - HEART Score Troponin: Troponin T < 0.010 ng/mL (0.00-0.029) 11/22/21 22:02 Results - Labs CBC & Chem 7: 11/25/21 09:40 11/30/21 06:06 Labs: Laboratory Last Values WBC 7.3 K/mm3 (4.5-11.0) 11/24/21 06:18 RBC 3.32 M/mm3 (3.65-5.03) L 11/24/21 06:18 Hgb 10.0 gm/dl (10.1-14.3) L 11/25/21 09:40 Hct 30.8 % (30.3-42.9) 11/25/21 09:40 MCV 86 fl (79-97) 11/24/21 06:18 MCH 28 pg (28-32) 11/24/21 06:18 MCHC 32 % (30-34) 11/24/21 06:18 RDW 16.5 % (13.2-15.2) H 11/24/21 06:18 Plt Count 183 K/mm3 (140-440) 11/24/21 06:18 Lymph % (Auto) 14.9 % (13.4-35.0) 11/24/21 06:18 [place] % (Auto) 4.5 % (0.0-7.3) 11/24/21 06:18 Eos % (Auto) 2.7 % (0.0-4.3) 11/24/21 06:18 Baso % (Auto) 0.6 % (0.0-1.8) 11/24/21 06:18 Lymph # (Auto) 1.1 K/mm3 (1.2-5.4) L 11/24/21 06:18 [place] # (Auto) 0.3 K/mm3 (0.0-0.8) 11/24/21 06:18 Eos # (Auto) 0.2 K/mm3 (0.0-0.4) 11/24/21 06:18 Baso # (Auto) 0.0 K/mm3 (0.0-0.1) 11/24/21 06:18 Seg Neutrophils % 77.3 % (40.0-70.0) H 11/24/21 06:18 Seg Neutrophils # 5.6 K/mm3 (1.8-7.7) 11/24/21 06:18 Sodium 138 mmol/L (137-145) 11/30/21 06:06 Potassium 5.2 mmol/L (3.6-5.0) H 11/30/21 06:06 Chloride 111.4 mmol/L (98-107) H 11/30/21 06:06 Carbon Dioxide 17 mmol/L (22-30) L 11/30/21 06:06 Anion Gap 15 mmol/L 11/30/21 06:06 BUN 17 mg/dL (7-17) 11/30/21 06:06 Creatinine 0.5 mg/dL (0.6-1.2) L 11/30/21 06:06 Estimated GFR > 60 ml/min 11/30/21 06:06 BUN/Creatinine Ratio 34 % 11/30/21 06:06 Glucose 87 mg/dL (65-100) 11/30/21 06:06 POC Glucose 118 mg/dL (70-105) H 11/29/21 23:14 Lactic Acid 1.90 mmol/L (0.7-2.0) 11/22/21 22:59 Calcium 8.6 mg/dL (8.4-10.2) 11/30/21 06:06 Phosphorus 4.10 mg/dL (2.5-4.5) 11/30/21 06:06 Magnesium 1.80 mg/dL (1.7-2.3) 11/30/21 06:06 Total Bilirubin 0.40 mg/dL (0.1-1.2) 11/22/21 15:34 AST 52 units/L (5-40) H 11/22/21 15:34 ALT 44 units/L (7-56) 11/22/21 15:34 Alkaline Phosphatase 109 units/L (35-129) 11/22/21 15:34 Troponin T < 0.010 ng/mL (0.00-0.029) 11/22/21 22:02 Total Protein 6.5 g/dL (6.3-8.2) 11/22/21 15:34 Albumin 3.8 g/dL (3.9-5) L 11/22/21 15:34 Albumin/Globulin Ratio 1.4 % 11/22/21 15:34 Urine Color Yellow (Yellow) 11/22/21 20:47 Urine Turbidity Clear (Clear) 11/22/21 20:47 Specific [place] (Man) 1.015 (1.003-1.030) 11/22/21 20:47 Ur Protein (Man) 2+ mg/dL (Negative) 11/22/21 20:47 Ur Ketones (Man) Negative (Negative) 11/22/21 20:47 Ur Nitrite (Man) Negative (Negative) 11/22/21 20:47 Urine Bilirubin (Man) Negative (Negative) 11/22/21 20:47 Leukocyte Esterase (Man) Negative (Negative) 11/22/21 20:47 Urine WBC (Auto) 1.0 /HPF (0.0-6.0) 11/22/21 20:47 Urine RBC (Auto) 2.0 /HPF (0.0-6.0) 11/22/21 20:47 U Epithel Cells (Auto) 1.0 /HPF (0-13.0) 11/22/21 20:47 Urine RBC (Manual) 2+ (Negative) 11/22/21 20:47 Hyaline Casts 1 /LPF 11/22/21 20:47 Urine Mucus Few /HPF 11/22/21 20:47 Urine HCG, Qual Negative (Negative) 11/22/21 20:47 Vancomycin Trough 9.5 ug/mL (5.0-20.0) 11/29/21 05:09 SARS-CoV-2 (PCR) Negative (Negative) 11/23/21 12:45 Microbiology: Microbiology 11/26/21 09:51 Peripheral/Venous Blood Culture - Preliminary NO GROWTH AFTER 4 DAYS 11/29/21 10:36 Peripheral/Venous Blood Culture - Preliminary Culture in Progress 11/29/21 10:36 Peripheral/Venous Blood Culture - Preliminary Culture in Progress Reddy/IV: Voiding Method Toilet Active Medications - Current Medications Current Medications: Generic Name Dose Route Start Last Admin Trade Name Freq PRN Reason Stop Dose Admin Acetaminophen 650 mg 11/23/21 04:49 Acetaminophen 325 Mg Tab PO Q4H PRN Pain MILD(1-3)/Fever >100.5/BLAIR Albuterol 2.5 mg 11/23/21 04:49 11/23/21 15:19 Albuterol 2.5 Mg/3 Ml Nebu IH 2.5 mg Q3HRT PRN Administration Shortness Of Breath Amitriptyline HCl 25 mg 11/23/21 22:00 11/29/21 21:30 Amitriptyline 25 Mg Tab PO Not Given QHS RADHA Amlodipine Besylate 10 mg 11/23/21 10:00 11/30/21 10:33 Amlodipine 10 Mg Tab PO 10 mg DAILY RADHA Administration Calcium Carbonate/Glycine 500 mg 11/24/21 09:00 Calcium Carbonate 500 Mg Tab Chew PO Q4H PRN Indigestion Carvedilol 12.5 mg 11/23/21 10:00 11/30/21 10:33 Carvedilol 12.5 Mg Tab PO 12.5 mg BID RADHA Administration Dicyclomine HCl 20 mg 11/24/21 10:00 11/30/21 10:31 Dicyclomine 20 Mg Tab PO 20 mg QDAY RADHA Administration Heparin Sodium (Porcine) 5,000 unit 11/23/21 10:00 11/30/21 10:31 Heparin 5,000 Unit/1 Ml Vial SUB-Q 5,000 unit Q12HR RADHA Administration Hydralazine HCl 10 mg 11/28/21 08:13 Hydralazine 20 Mg/1 Ml Inj IV Q4HR PRN Hypertension Hydralazine HCl 10 mg 11/28/21 08:20 11/30/21 06:15 Hydralazine 10 Mg Tab PO 10 mg Q8HR RADHA Administration Cefazolin Sodium 2 gm in 100 mls @ 200 mls/hr 11/29/21 13:00 11/30/21 06:15 Cefazolin/Ns 2 Gm/100 Ml IV 12/27/21 21:29 200 mls/hr Q8H RADHA Administration Magnesium Oxide 400 mg 11/24/21 10:00 11/30/21 10:31 Magnesium Oxide 400 Mg Tab PO 400 mg QDAY RADHA Administration Methocarbamol 500 mg 11/23/21 10:00 11/30/21 10:31 Methocarbamol 500 Mg Tab PO 500 mg QDAY RADHA Administration Morphine Sulfate 2 mg 11/23/21 04:49 11/30/21 10:39 Morphine 2 Mg/1 Ml Inj IV 2 mg Q4H PRN Administration Pain, Moderate (4-6) Morphine Sulfate 4 mg 11/23/21 04:49 Morphine 4 Mg/1 Ml Inj IV Q4H PRN Pain , Severe (7-10) Ondansetron HCl 4 mg 11/23/21 04:49 Ondansetron 4 Mg/2 Ml Inj IV Q8H PRN Nausea And Vomiting Oxycodone/Acetaminophen 1 tab 11/25/21 15:00 11/28/21 08:01 Oxycodone /Acetaminophen 5-325mg Tab PO 1 tab Q6H PRN Administration Pain, Moderate (4-6) Sodium Chloride 10 ml 11/23/21 10:00 11/30/21 10:33 Sodium Chloride 0.9% 10 Ml Flush Syringe IV 10 ml BID RADHA Administration Sodium Chloride 10 ml 11/23/21 04:49 Sodium Chloride 0.9% 10 Ml Flush Syringe IV PRN PRN LINE FLUSH Nutrition/Malnutrition Assess - Dietary Evaluation Nutrition/Malnutrition Findings: Nutrition Notes Start: 11/23/21 16:23 Freq: Status: Active Protocol: Document 11/29/21 07:21 CM (Rec: 11/29/21 07:23 CM [id number]) Co-Sign 11/29/21 07:21 WW Nutrition Notes Initial or Follow up Reassessment Current Diagnosis Sepsis,Hypertension Other Pertinent Diagnosis Short Bowel Syndrome Current Diet Regular Diet/TPN/PPN Labs/Tests 11/29: Na 138 Cl 109.7 CO2 19 BUN 15 Glu 80 Ca 8.4 Phos 3.5 Mg 1.4 Pertinent Medications 11/29: Medications reviewed Height 5 ft 2 in Weight 50.7 kg [place] Body Weight (kg) 50.00 BMI 20.4 Weight change and time frame Bedside wt indicated pt lost 2 .1kg since 11/28. Weight Status Appropriate Subjective/Other Information Day 6 TPN. Pt changed to PPN and PICC removed due to infection per progress notes. PO intake remains 75-100% of meals per ADL notes, RN and pt . 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 No Is Patient Ambulatory and/or Out of Bed Yes REE-([place]-St. Jeor-ambulatory/OOB) [ 1423.825 [id number]] Kcal/Kg value to use for calculation 33 Approximate Energy Requirements Using 1673 kcal/Kg Calculation Used for Recommendations Kcal/kg Additional Notes Protein: 0.8-1.2g/kg ABW; 41- 63g PRO q day. Fluids: 1mL/kcal or per MD Nutrition Intervention Change Diet Order: Continue regular diet Nutrition Support: Continue PPN @ 83.33 ml/hr ( 100mL/180mL/100mL) - 12hr cyclic. 8% Dex, 3% AA, Na 100 mEq, Mag 20 mEq, Ca 20 mEq, 20 Phos, 100% Acetate. Kcal 750 Protein (gm) 60 Carbohydrates (gm) 150 Fat (gm) 0 Fluid (mL) 2,000 Fiber (gm) 0 % RDI: 45%kcal/100%AA Goal #1 Provide at least 75% of energy /protein needs through Parenteral Feeding along with PO diet during LOS. Follow-Up By: 11/30/21 Additional Comments Monitor TPN tolerance, nutrition-related labs (BMP, Phos, Mg - Labs ordered), and wt status.
--- NOTE | 2021-11-30 15:13 | XRay Report ---
CHEST 1 VIEW 11/30/2021 1:57 PM INDICATION / CLINICAL INFORMATION: L arm PICC placement. COMPARISON: 11/22/21. FINDINGS: SUPPORT DEVICES: The right CVL has been removed. There is a new PICC entering from the left arm with the tip overlying the upper right atrium. HEART / MEDIASTINUM: Unchanged. LUNGS / PLEURA: No significant pulmonary or pleural abnormality. No pneumothorax. ADDITIONAL FINDINGS: No significant additional findings. IMPRESSION: The tip of the left PICC overlies the right atrium. The catheter could be pulled back elle roximately 4 cm. Signer Name: Chong Liu MD Signed: 11/30/2021 3:08 PM Workstation Name: [email or web address]
[2021-11-30] MEDS ORDERED: TOTAL PARENTERAL NUTRITION 2,000 ML IV SCH (20:00)
[2021-11-30] MEDS: AMITRIPTYLINE 25 MG TAB PO SCH (21:36)
[2021-12-01] MEDS: ceFAZolin/NS 2 GM/100 ML 2 GM/100 ML BAG IV SCH ×2 (04:57→12:14)
[2021-12-01] MEDS: hydrALAZINE 10 MG TAB PO SCH (05:19)
[2021-12-01] MEDS: oxyCODONE /ACETAMINOPHEN 5-325MG TAB PO PRN (05:19)
[2021-12-01 06:01] LABS: Alanine Aminotransferase 92 units/L (7-56); Albumin 3.6 g/dL (3.9-5); Blood Urea Nitrogen 17 mg/dL (7-17); Calcium 9.1 mg/dL (8.4-10.2); Hemolysis Index 6
[2021-12-01 06:05] LABS: BUN/Creatinine Ratio 28
[2021-12-01] MEDS: HEPARIN 5,000 UNIT/1 ML VIAL SUB-Q SCH (10:21)
[2021-12-01] MEDS: MAGNESIUM OXIDE 400 MG TAB PO SCH (10:21)
[2021-12-01] MEDS: DICYCLOMINE 20 MG TAB PO SCH (10:21)
[2021-12-01] MEDS: amLODIPine 10 MG TAB PO SCH (10:23)
[2021-12-01] MEDS: carvediloL 12.5 MG TAB PO SCH (10:23)
--- NOTE | 2021-12-01 10:42 | Discharge Summary ---
Providers - Providers Date of Admission: 11/23/21 16:40 Date of discharge: 12/01/21 Attending physician: ORLANDO NAYAK MD 11/23/21 13:45 Consult to Dietitian/Nutrition [CONS] Routine Physician Instructions: Reason For Exam: Reason for Consult: Write/Manage TPN/PPN 11/27/21 07:55 Consult to Physician [CONS] Routine Comment: Consulting Provider: ERASTO MANZO Physician Instructions: Reason For Exam: Fever/patient has port for TPN/gm + bacteremia 11/28/21 06:14 Consult to Physician [CONS] Routine Comment: Consulting Provider: ERASTO MANZO Physician Instructions: Reason For Exam: TPN port/ gram positive bacteremia 11/28/21 18:30 Consult to Dietitian/Nutrition [CONS] Routine Physician Instructions: Reason For Exam: Initiated PPN Reason for Consult: Write/Manage TPN/PPN 11/29/21 08:54 Consult to Physician [CONS] Routine Comment: Consulting Provider: TACO LAWRENCE Physician Instructions: Reason For Exam: removal of reardon port 11/29/21 11:07 Consult to Case Management [CONS] Routine Services Needed at Discharge: Other Notified:: CM Comment:: IV antibiotics Additional Physician Instructions: [facility] O: [phone] F: [phone] OUTPATIENT PARENTERAL ANTIBIOTIC THERAPY (OPAT) ORDERS Diagnoses: MSSA bacteremia Antimicrobial administration: IV Ancef 2 g every 8 hours for 4 weeks with end date of 12/27/2021 -Do not remove PICC after completing antibiotics since it is being used for TPN. Lines: Maintain IV access with weekly dressing changes and locks per protocol. Lab monitoring: - CBC with differential, CMP, once a week every Sunday while on IV antibiotics. - Please fax results to [phone] and call [phone] for critical lab results. Nathaly Reyes MD, FACP, [facility] 11/30/21 10:45 Consult to PICC Line RN [CONS] Routine Reason For Exam: PICC line, TPN Type Line:: PICC Primary care physician: ALISON OLGUIN Hospitalization Reason for admission: Fever/Sepsis Condition: Stable Hospital course: 46-year-old female with history of arthritis, short gut syndrome on chronic TPN in who presented with fever and generalized body aches. She was admitted for sepsis. Blood cultures were positive for methicillin sensitive staph aureus. ID was consulted. Her [place] catheter and PICC line were removed for line holiday. Patient was started on empiric antibiotics. Echocardiogram showed normal ejection fraction, mild pulmonary hypertension and no visualized vegetations. Patient began to clinically improve and subsequent blood cultures were negative. Infectious disease recommended Ancef 2 g every 8 hours with end date of December 27, 2021. Once IV antibiotics were finalized, patient was discharged home with home health. Disposition: HOME / SELF CARE / HOMELESS Final Discharge Diagnosis (Prints w/discharge instructions): Methicillin sensitive staph aureus bacteremia. Sepsis secondary to bacteremia. Lactic acidosis. Hyperkalemia. Hypomagnesemia. Hypocalcemia. Short gut syndrome. Lupus Time spent for discharge: 40 minutes Core Measure Documentation - Palliative Care Palliative Care/ Comfort Measures: Not Applicable - Core Measures Any of the following diagnoses?: none Exam - Physical Exam Narrative exam: GENERAL: Thin woman. In no acute distress. HEENT: Normocephalic. Atraumatic. CHEST/LUNGS: CTAB on room air. L chest site of old port dressed, no TTP. HEART/CARDIOVASCULAR: RRR. No murmur, rubs or gallops appreciated. ABDOMEN: +BS. NT/ND. NEURO: No focal motor deficit. Follows all commands. EXTREMITIES: No cyanosis, clubbing or edema. LUE PICC line in place. PSYCH: Cooperative. - Constitutional Vitals: Temp Pulse Resp BP Pulse Ox 97.4 F L 54 L 17 137/68 99 12/01/21 04:41 12/01/21 10:23 12/01/21 05:19 12/01/21 10:23 12/01/21 04:41 Plan Care Plan Goals: Please follow up with your Primary Care provider at your earliest convenience. You will continue IV antibiotics until 12/27/2021. You can continue your TPN feeds via the PICC line. If you notice any return of any fevers, pain at the site of the PICC line or drainage please return. Follow up with: ALISON OLGUIN III, [employer] DES[employer] [Primary Care Provider] - 3-5 Days Prescriptions: Amitriptyline [Elavil] 25 mg PO QHS #30 amLODIPine 10 mg PO DAILY #60 tablet hydrALAZINE [Apresoline TAB] 10 mg PO Q8HR 30 Days #90 tablet Dicyclomine [Bentyl] 20 mg PO QDAY #30 Celecoxib [celeBREX] 100 mg PO QDAY #30 cap carvediloL [Coreg] 12.5 mg PO BID #60 tablet Loperamide [Imodium] 2 mg PO PRN PRN #30 cap PRN Reason: Diarrhea Albuterol Mdi (or & Nicu Only) [ProAir HFA Inhaler] 2 puff IH QID PRN #1 PRN Reason: Shortness Of Breath methOCARBAMOL [Robaxin TAB] 500 mg PO QDAY #30 tablet
--- NOTE | 2021-12-01 13:22 | Progress Note ---
Assessment and Plan Cultures: 11/22/2021 blood culture: MSSA 11/26/2021 blood culture: 1 out of 4 bottles with coagulase-negative staph 11/29/2021 blood culture: no growth A/P: 46-year-old female past medical history ischemic gut status post resection, chronic PORT line now with: #Sepsis secondary to bloodstream infection from MSSA #MSSA bacteremia: Likely secondary to port/tunneled line infection, spontaneously fell out. TTE without any obvious valvular vegetations. Repeat blood cultures with 1 out of 4 bottles growing coagulase-negative staph, likely contaminant #Short gut syndrome: With chronic port, on TPN. Follows at [facility]. 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 Please call with questions. Nathaly Reyes MD, FACP, [facility] O: [phone] F: [phone] C: [phone] Subjective Date of service: 12/01/21 Interval history: Afebrile. Got PICC line placed. Awaiting discharge. Denies any complaints at this time. Objective - Exam Narrative Exam: Physical Exam: Constitutional: Alert, cooperative. No acute distress Head, Ears, Nose: Normocephalic, atraumatic. External ears, nose normal Eyes: Conjunctivae/corneas clear. No icterus. No ptosis. Neck: Supple, no meningeal signs Cardiovascular: S1, S2 + Respiratory: Good air entry, clear to auscultation bilaterally GI: Soft, non-tender; bowel sounds normal. No peritoneal signs Musculoskeletal: No pedal edema, no cyanosis. L arm PICC + Skin: No rash or abscess Hem/Lymphatic: No palpable cervical or supraclavicular nodes. No lymphangitis Psych: Mood ok. Affect normal Neurological: Awake, alert, oriented. No gross abnormality - Constitutional Vitals: Vital Signs Temp Pulse Resp BP Pulse Ox 97.4 F L 54 L 17 137/68 99 12/01/21 04:41 12/01/21 10:23 12/01/21 05:19 12/01/21 10:23 12/01/21 04:41 Temperature -Last 24 Hours Temperature 97.4 F Temperature 98.6 F Temperature 97.7 F - Labs CBC & Chem 7: 11/25/21 09:40 12/01/21 04:18 Labs: Abnormal lab results 12/01/21 Range/Units 04:18 Chloride 108.4 H (98-107) mmol/L Carbon Dioxide 19 L (22-30) mmol/L AST 100 H (5-40) units/L ALT 92 H (7-56) units/L Total Protein 6.2 L (6.3-8.2) g/dL Albumin 3.6 L (3.9-5) g/dL
[2021-12-01 14:00] VITALS: BP 165/82
== END 2021-12-01 14:15 | disposition home health service (06) | DRG 314 ==
LOC: ED 13:20 → INTOOBSV 11-23 04:49 → 3A 11-23 04:49 → OBSVTOIN 11-23 16:40 → 3A 11-24 14:21
PROVIDERS: ADMIT Hospitalist; ATTEND Student in an Organized Health Care Education/Training Program
PROC: 02HV33Z Insertion of Infusion Device into Superior Vena Cava, Percutaneous Approach (ICD-10-PCS; principal; 2021-11-28)
PROC: 3E0336Z Introduction of Nutritional Substance into Peripheral Vein, Percutaneous Approach (ICD-10-PCS; 2021-11-28)
DX: T80.211A Bloodstream infection due to central venous catheter, initial encounter (principal); A41.01 Sepsis due to Methicillin susceptible Staphylococcus aureus; K91.2 Postsurgical malabsorption, not elsewhere classified; I42.9 Cardiomyopathy, unspecified; Z20.822 Contact with and (suspected) exposure to COVID-19; I10 Essential (primary) hypertension; M25.512 Pain in left shoulder; E83.42 Hypomagnesemia; E83.51 Hypocalcemia; E87.5 Hyperkalemia; F17.200 Nicotine dependence, unspecified, uncomplicated; M32.9 Systemic lupus erythematosus, unspecified; Y83.8 Other surgical procedures as the cause of abnormal reaction of the patient, or of later complication, without mention of misadventure at the time of the procedure; Y92.89 Other specified places as the place of occurrence of the external cause; Z82.49 Family history of ischemic heart disease and other diseases of the circulatory system
CPT/HCPCS: 36415; 71045; 71046; 80048; 80053; 80202; 81001; 81025; 82140; 82962; 83735; 84100; 84478; 84484; 85014; 85018; 85025; 85027; 87040; 87076; 87186; 93005; 93306; 94640; 96374; 99285; G0378; J3490; C8929; J0692; J0696; J1644; J2270; J3370; J3475; J7030; J7040; J7050; U0003